=== PATIENT | male | born 1965 | race African-American/Black ===

== ENCOUNTER 2020-11-27 07:47 | Outpatient (RCR) | payer MEDICARE, MEDICAID, SELFPAY ==
[2020-11-27 08:20] VITALS: BP 124/68; PULSE 88; RESP 16; TEMP 36.9; BMI 44.3
--- NOTE | 2020-11-27 09:55 | PCM.WC.HP ---
History of Present Illness Date of Service: 11/27/20 Chief Complaint: Follow-up for open wounds on bilateral feet History of Wound: 55-year-old black male, diabetic neuropathy, DFU's with mental health issues and other comorbidities. Has developed a open sore on right hallux and left plantar foot just below the ball of the foot. Which appear to be almost healed PFSH Allergy/AdvReac Type Severity Reaction Status Date / Time No Known Allergies Allergy Verified 11/27/20 08:48 Social History Smoking Status: Current every day smoker ROS Constitutional Constitutional: Reports systems reviewed and no addt'l complaints, except as documented Eyes Eyes: Reports systems reviewed and no addt'l complaints, except as documented ENT HEENT: Reports systems reviewed and no addt'l complaints, except as documented Cardiovascular Cardiovascular: Reports systems reviewed and no addt'l complaints, except as documented Respiratory/Chest Respiratory/Chest: Reports systems reviewed and no addt'l complaints, except as documented Gastrointestinal Gastrointestinal: Reports systems reviewed and no addt'l complaints, except as documented Genitourinary Genitourinary: Reports systems reviewed and no addt'l complaints, except as documented Musculoskeletal Musculoskeletal: Reports systems reviewed and no addt'l complaints, except as documented Integumentary Integumentary: Reports systems reviewed and no addt'l complaints, except as documented and non-healing lesions Neurologic Neurologic: Reports systems reviewed and no addt'l complaints, except as documented Psychiatric Psychiatric: Reports systems reviewed and no addt'l complaints, except as documented and depression Endocrine Endocrinology: Reports systems reviewed and no addt'l complaints, except as documented Hematologic/Lymphatic Hematologic/Lymphatic: Reports systems reviewed and no addt'l complaints, except as documented Allergic/Immunologic Allergic/Immunologic: Reports systems reviewed and no addt'l complaints, except as documented Vital Signs Vital Signs Vital Signs: 11/27/20 08:20 Temperature 98.5 F Temperature Source Temporal Pulse Rate 88 Respiratory Rate 16 Blood Pressure 124/68 H Blood Pressure Mean 86 Blood Pressure Source Monitor Blood Pressure Position Sitting Blood Pressure Location Left Arm Oxygen Delivery Method Room Air Weight Weight: 300 lb Body Mass Index (BMI) 44.3 Physical Exam Const oriented x3 General Appearance: cooperative Exam Limitations: no limitations Eyes PERRL General Eye: normal appearance of both eyes Neck full ROM General: normal visual inspection Resp normal respiratory effort Effort and Inspection: able to speak in complete sentences Auscultation: clear to auscultation bilaterally Cardio regular rate and regular rhythm Palpation: normal PMI Rate: regular rate Rhythm: regular rhythm GI Auscultation: normoactive bowel sounds Palpation: soft and no hepatosplenomegaly external exam normal Back/Spine Cervical Spine: cervical ROM normal Thoracic Spine / Upper Back: normal to inspection Lumbar Spine / Lower Back: normal to inspection Extremity normal to inspection General Extremity: normal exam except as noted Skin Wounds: wounds noted Neuro oriented x3 Psych Appearance: grossly normal Speech: normal speech Thought Content: normal thought content Judgement: judgement good Debridement Note Debridement Note Post-Debridement Measurements and Additional Note: Post-Debridement Measurements/Treatment - Nurse 1 - General Ulcer Assessment Start: 11/27/20 08:17 Freq: Status: Active Protocol: [email or web address] Activity Type Activity Date Activity User E-Sign Co-Sign Detail Recorded Client Recorded Date Recorded By Document 11/27/20 08:20 [facility] [id number] 11/27/20 08:42 [facility] 11/27/20 08:20 - Today's Visit Information Type of service Initial Visit Arrival Mode Wheelchair Transfer Assistance Other Transfer Assist (Other) STAND BY Patient Identification Verified (Name & Yes ) Patient Requires Transmission-Based No Precautions Height and Weight Height 5 ft 9 in Weight 300 lb Weight in Pounds 300.0 lbs Weight Measurement Method Estimated by Patient Body Mass Index (BMI) 44.3 BMI Classification Obese BSA - Rj 2.45 Vital Signs Temperature (97.8 F-99.1 F) 98.5 F Temperature Source Temporal Pulse Rate (60-100) 88 Pulse Location Monitor Respiratory Rate (12-18) 16 Respiratory rate source Observation Oxygen Delivery Method Room Air Blood Pressure (90/60-120/80) 124/68 H Blood Pressure Mean 86 Source Monitor Position Sitting Blood Pressure Location Left Arm History Since Last Visit- (Skip if this is Patient's initial visit) Left Footwear Slipper Right Footwear Slipper Pain Scale: 0-10 Numeric Is Patient Pain Free? Yes Lower Extremity Assessment/ Foot Assessment/ Toe Nail Assessment Right -Posterior Tibial Palpable No -Posterior Tibial Doppler Monophasic -Dorsalis Pedis Palpable Yes -Dorsalis Pedis Doppler Multiphasic -Hair Growth on Legs Yes -Hair Growth on Toes No -Temperature of Extremity Warm -Other Deformity No -Prior Foot Ulcer No -Charcot Joint No -Prior Amputation No -Thick Yes -Discolored Yes -Deformed No -Improper Length & Hygeine No Left -Posterior Tibial Palpable No -Posterior Tibial Doppler Multiphasic -Dorsalis Pedis Palpable Yes -Dorsalis Pedis Doppler Multiphasic -Hair Growth on Legs Yes -Hair Growth on Toes No -Temperature of Extremity Warm -Other Deformity No -Prior Foot Ulcer No -Charcot Joint No -Prior Amputation No -Thick Yes -Discolored Yes -Deformed No -Improper Length & Hygeine No Neuropathy Assessment Feet - Top Side and Bottom <Entered> (a) Communication Assessment Preferred language Cuban [employer] Mechan[employer] Required No Able to Read Yes Able to Write Yes Communication Tools None Right Hearing Abillity Normal Left Hearing Abillity Normal Visual Assistive Devices Glasses Teaching Assessment Preferences Verbal,Written, Audio/Visual, Demonstration Barriers to Learning None Readiness To Learn Excellent Willingness to Engage in Self Management High Activies Readiness to Engage in Self Management High Activities Anxiety Level Calm Cooperation Cooperative Perception Coherent Interest in Health Problem Asks Questions Education Importance Acknowledges Need Does Patient Smoke tobacco or other No substances Smoking Status Current every day smoker Is Patient Diabetic Yes Functional Assessment Recent Decline in Ability to Perform Denies Any Declines 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 Cultural/Yazidism Needs that may affect No Treatment Plan Teaching: Wound Center *Welcome to the Wound Center -Person Taught Patient -Teaching Method Discussion -Response to teaching Verbalize understanding Welcome to the Wound Care Center Cuban (a) 1 - + 2 - - 3 - - 4 - + 5 - - WC - Nurse 1 - General Ulcer Measurement Start: 11/27/20 08:17 Freq: Status: Active Protocol: Activity Type Activity Date Activity User E-Sign Co-Sign Detail Recorded Client Recorded Date Recorded By Document 11/27/20 08:20 [facility] [id number] 11/27/20 08:42 [facility] 11/27/20 08:20 Wound Center Nurse 1 #2- L PLANTAR FOOT -Combined with other wound No -Current Size (cm) - Length 0.7 -Current Size (cm) - Width 0.4 -Current Size (cm) - Depth 0.1 -Total Square Cm 0.28 -Date of Last Picture (Recall this 11/27/20 field) -Photo Taken Yes -Epithelialization None Present -Tunneling No -Undermining/Tunneling No -Circular Undermining No -Exudate Amt Medium -Exudate Type Serous -Wound Margin Flat & Intact -Granulation Amt Medium (34-66%) -Granulation Quality Red -Slough/Fibrin Yes -Necrosis Amt Small (1-33%) -Necrotic Tissue Type Adherent Slough -Texture (Camila-wound Skin Appearance) Assessed, Scarring -Moisture (Camila-wound Skin Appearance) Assessed,Dry/ Scaly -Color (Camila-wound Skin Appearance) Assessed -Temperature (Camila-wound Skin No Abnormality Appearance) (Pt Warm) -Tenderness on Palpation (Camila-wound Yes Skin Appearance) -Ulcer Cleansing SOAPY WATER -Foul Odor after Cleansing No -Anesthetic Used 5% Lidocaine Gel #1- R BUNION -Combined with other wound No -Current Size (cm) - Length 1.7 -Current Size (cm) - Width 0.8 -Current Size (cm) - Depth 0.1 -Total Square Cm 1.36 -Date of Last Picture (Recall this 11/27/20 field) -Photo Taken Yes -Epithelialization None Present -Tunneling No -Undermining/Tunneling No -Circular Undermining No -Exudate Amt None Present -Wound Margin Flat & Intact -Granulation Amt Large (67-100%) -Granulation Quality [place] -Slough/Fibrin Yes -Necrosis Amt Small (1-33%) -Necrotic Tissue Type Adherent Slough -Texture (Camila-wound Skin Appearance) Callus,Scarring -Moisture (Camila-wound Skin Appearance) Assessed,Dry/ Scaly -Color (Camila-wound Skin Appearance) Assessed -Temperature (Camila-wound Skin No Abnormality Appearance) (Pt Warm) -Tenderness on Palpation (Camila-wound Yes Skin Appearance) -Ulcer Cleansing SOAPY WATER -Foul Odor after Cleansing No -Anesthetic Used 5% Lidocaine Gel Lower Limb Edema Present Yes Right Calf (cm) 44.6 Right Ankle (cm) 32.1 Left Calf (cm) 46.1 Left Ankle (cm) 32.7 WC - Nurse 2 - General Ulcer CM Notes Start: 11/27/20 08:17 Freq: Status: Active Protocol: Activity Type Activity Date Activity User E-Sign Co-Sign Detail Recorded Client Recorded Date Recorded By Document 11/27/20 09:05 MW [id number] 11/27/20 09:09 MW 11/27/20 09:05 Wound Center Nurse 2 #2- L PLANTAR FOOT -Time 09:05 -Correct Patient Yes -Correct Side, Site, Position Yes -Correct Procedure Yes -Procedure Performed Yes -Type of Procedure Debridement -Clinical Debridement Subcutaneous -Tissue Removed Subcutaneous -Post Debridement (cm) - Length 0.6 -Post Debridement (cm) - Width 0.5 -Post Debridement (cm) - Depth 0.1 -Total Square (Post) (cm) 0.30 -Area of Debridement (cm) - Length 0.6 -Area of Debridement (cm) - Width 0.5 -Total Square (Area) (cm) 0.30 -Tunneling No -Undermining/Tunneling No -Circular Undermining No -Wound/Ulcer Outcome Not Healed -Ulcer Cleansing Rinsed/ Irrigated with Saline -Foul Odor after Cleansing No -Bioengineered Tissue No -Bleeding Controlled with Pressure -Offloading No -Treatment Response Procedure Tolerated Well -Debridement - Subq, 1st 20sq cm Yes #1- R BUNION -Time 09:05 -Correct Patient Yes -Correct Side, Site, Position Yes -Correct Procedure Yes -Procedure Performed Yes -Type of Procedure Debridement -Clinical Debridement Subcutaneous -Tissue Removed Subcutaneous -Post Debridement (cm) - Length 1.5 -Post Debridement (cm) - Width 0.5 -Post Debridement (cm) - Depth 0.1 -Total Square (Post) (cm) 0.75 -Area of Debridement (cm) - Length 1.5 -Area of Debridement (cm) - Width 0.5 -Total Square (Area) (cm) 0.75 -Tunneling No -Undermining/Tunneling No -Circular Undermining No -Wound/Ulcer Outcome Not Healed -Ulcer Cleansing Rinsed/ Irrigated with Saline -Foul Odor after Cleansing No -Bioengineered Tissue No -Bleeding Controlled with Pressure -Offloading No -Treatment Response Procedure Tolerated Well -Debridement - Subq, 1st 20sq cm No Pain Scale: 0-10 Numeric Is Patient Pain Free? Yes WC - Nurse 3 - General Ulcer D/C NN Start: 11/27/20 08:17 Freq: Status: Active Protocol: Activity Type Activity Date Activity User E-Sign Co-Sign Detail Recorded Client Recorded Date Recorded By Document 11/27/20 09:24 [facility] [id number] 11/27/20 09:25 [facility] 11/27/20 09:24 Wound Care Nurse 3 #2- L PLANTAR FOOT -Ulcer Cleansing Rinsed/ Irrigated with Saline -Foul Odor after Cleansing No -Primary Dressing Applied Aquacel Extra, NonAdherent Contact Layer -Primary Dressing Covered/Secured with Dry Gauze, Secured with Tape -Aquacel Extra 1 #1- R BUNION -Ulcer Cleansing Rinsed/ Irrigated with Saline -Foul Odor after Cleansing No -Primary Dressing Applied Aquacel Extra, NonAdherent Contact Layer -Primary Dressing Covered/Secured with Dry Gauze, Secured with Tape -Aquacel Extra 0 Treatment Response Procedure Tolerated Well Pain Scale: 0-10 Numeric Is Patient Pain Free? Yes WC - Visit Discharge Discharge Condition Stable Ambulatory Status Wheelchair Other [facility] Wound debrided: Right bunion Laterality: Right Wound Grade/Stage: Stage II Type of Debridement: Excisional debridement Depth: Down to and including healthy tissue Percentage of wound debrided: 100 Instrument Used: 7mm curette Tissue Removed: Fibrin Severity: Limited To Skin Breakdown Amount of bleeding with debridement: None Bleeding Controlled with: Pressure Patient tolerated procedure: Patient tolerated procedure well Additional Wound Wound debrided: Left plantar foot Wound Grade/Stage: Stage II Type of Debridement: Excisional debridement Anesthesia Used: 5% Lidocaine Gel Depth: Down to and including healthy tissue Percentage of wound debrided: 100 Instrument Used: 7mm curette Tissue Removed: Fibrin callus Severity: Limited To Skin Breakdown Amount of bleeding with debridement: None Assessment/Plan Assessment/Plan (1) Diabetes type 2, uncontrolled: CODE(S): E11.65 - Type 2 diabetes mellitus with hyperglycemia QUALIFIERS: Glycemic state: with hyperglycemia Qualified Code(s): E11.65 - Type 2 diabetes mellitus with hyperglycemia (2) Decubitus ulcer: CODE(S): L89.90 - Pressure ulcer of unspecified site, unspecified stage QUALIFIERS: Pressure injury location: foot, unspecified location Pressure injury stage: stage 2 Laterality: unspecified laterality Qualified Code(s): L89.892 - Pressure ulcer of other site, stage 2 PLAN: Wash areas with antibacterial soap or Hibiclens apply Aquacel extra to wound base cover with Adaptic gauze and tape to bilateral feet ulcers Follow-up in 1 week
== END 2020-12-14 23:59 ==
LOC: WC 07:47
PROVIDERS: Visit Provider Nurse Practitioner
DX: L89.892 Pressure ulcer of other site, stage 2 (principal); E11.65 Type 2 diabetes mellitus with hyperglycemia; F17.200 Nicotine dependence, unspecified, uncomplicated; E11.40 Type 2 diabetes mellitus with diabetic neuropathy, unspecified
CPT/HCPCS: 11042; 99203; G0463

== ENCOUNTER 2020-12-18 09:30 | Outpatient (RCR) | payer MEDICARE, MEDICAID, SELFPAY ==
[2020-12-15 00:37] VITALS: BP 124/68; PULSE 88; RESP 16; TEMP 36.9
[2020-12-18 09:23] VITALS: BP 95/56; PULSE 78; RESP 18; TEMP 36.3; BMI 44.3
--- NOTE | 2020-12-18 10:05 | PCM.WC.PN ---
History of Present Illness Date of Service: 12/18/20 Chief Complaint: Follow-up for open wounds on bilateral feet History of Wound: 55-year-old black male, diabetic neuropathy, DFU's with mental health issues and other comorbidities. Has developed a open sore on right hallux and left plantar foot just below the ball of the foot. Which appear to be almost healed Progress of Wound: The right helix and the left plantar are healed patient will be discharged from the wound center Subjective Subjective Patient has no concerns Objective Data Objective Data Area is all healed Vital Signs: Vital Signs Temp Pulse Resp BP 97.4 F L 78 18 95/56 L 12/18/20 09:23 12/18/20 09:23 12/18/20 09:23 12/18/20 09:23 Weight: 300 lb Body Mass Index (BMI) 44.3 Physical Exam Const oriented x3 General Appearance: cooperative Exam Limitations: no limitations Eyes PERRL General Eye: normal appearance of both eyes Neck full ROM General: normal visual inspection Resp normal respiratory effort Effort and Inspection: able to speak in complete sentences Auscultation: clear to auscultation bilaterally Cardio regular rate and regular rhythm Palpation: normal PMI Rate: regular rate Rhythm: regular rhythm GI Auscultation: normoactive bowel sounds Palpation: soft and no hepatosplenomegaly external exam normal Back/Spine Cervical Spine: cervical ROM normal Thoracic Spine / Upper Back: normal to inspection Lumbar Spine / Lower Back: normal to inspection Extremity normal to inspection General Extremity: normal exam except as noted Skin Wounds: wounds noted Neuro oriented x3 Psych Appearance: grossly normal Speech: normal speech Thought Content: normal thought content Judgement: judgement good Debridement Note Debridement Note No debridement was completed: No debridement was completed today Assessment/Plan Assessment/Plan (1) Diabetes type 2, uncontrolled: CODE(S): E11.65 - Type 2 diabetes mellitus with hyperglycemia QUALIFIERS: Glycemic state: with hyperglycemia Qualified Code(s): E11.65 - Type 2 diabetes mellitus with hyperglycemia (2) Decubitus ulcer: CODE(S): L89.90 - Pressure ulcer of unspecified site, unspecified stage QUALIFIERS: Pressure injury location: foot, unspecified location Pressure injury stage: stage 2 Laterality: unspecified laterality Qualified Code(s): L89.892 - Pressure ulcer of other site, stage 2 PLAN: Both areas have healed patient is discharged from the wound center follow-up as needed
== END 2020-12-18 09:58 | disposition home or self-care (01) ==
LOC: WC 09:30
PROVIDERS: Visit Provider Nurse Practitioner
DX: L89.892 Pressure ulcer of other site, stage 2 (principal); E11.65 Type 2 diabetes mellitus with hyperglycemia; E11.40 Type 2 diabetes mellitus with diabetic neuropathy, unspecified
CPT/HCPCS: 99213; G0463

== ENCOUNTER → 2020-12-25 12:23 | Outpatient (CLI) | payer MEDICARE, SELFPAY ==
[2020-12-18 09:23] VITALS: BMI 44.3
--- NOTE | 2020-12-25 12:56 | RAD_ITS ---
STUDY: X-RAY - LUMBAR SPINE REASON FOR EXAM: Male, 55 years old. BACK/LEG PAIN TECHNIQUE: 3 view(s) of the lumbar spine were obtained. COMPARISON: None FINDINGS: Normal lumbar lordosis. There is no substantial scoliosis. There is a normal alignment of the vertebrae. Normal vertebral bodies and endplates. Focal disc space narrowing and osteophyte formation at L5/S1 consistent with degenerative disc disease. The soft tissue structures are unremarkable. RAD/Lumbar Spine 2 or 3 Views IMPRESSION: Focal degenerative disc disease L5/S1. Electronically Signed: Tex Lynch MD at 16:50 EDT Tel , Service support ,
[2020-12-25 13:51] LABS: Amphetamine Urine VISTA NEGATIVE (<1000 ng/mL); Barbiturate Urine VISTA NEGATIVE (< 200 ng/mL); Benzodiazepine Urine VISTA NEGATIVE (< 200 ng/mL); Cocaine Urine VISTA NEGATIVE (< 300 ng/mL); Ecstacy Urine VISTA POSITIVE (< 500 ng/mL); Methadone Urine VISTA NEGATIVE (< 300 ng/mL); PCP Urine VISTA NEGATIVE (< 25 ng/mL); THC Urine VISTA NEGATIVE (< 50 ng/mL); Vista UDS pH Range 5
== END ==
PROVIDERS: Referring Provider Anesthesiology Pain Medicine; Visit Provider Anesthesiology Pain Medicine
DX: M54.9 Dorsalgia, unspecified (principal); F11.20 Opioid dependence, uncomplicated; M79.606 Pain in leg, unspecified
CPT/HCPCS: 72100; 80307

== ENCOUNTER 2021-01-06 16:20 | Emergency (ER) | payer MEDICARE, SELFPAY ==
[2021-01-06 16:22] VITALS: BP 94/64; PULSE 85; RESP 18; TEMP 36.6; O2SAT 96; BMI 42.8
[2021-01-06 16:42] LABS: Absolute Lymphocyte Count 2.55 X10^3/uL (0.83-4.51); Absolute Neutrophil Count 6.1 X10^3/uL (2.0-7.7); Basophil# 0.04 X10^3/uL; Basophil% 0.4 % (0-1); Eosinophil# 0.25 X10^3/uL; Eosinophils% 2.6 % (0-5); Hematocrit 33.8 % (40-54); Hemoglobin 11.7 g/dL (13.0-16.5); Lymphocyte # 2.55 X10^3/ul (0.83-4.51); Lymphocyte % 26.4 % (19-41); Mean Corp Hgb Conc 34.6 g/dL (32-36); Mean Corpuscular Volume 77.9 fL (80-94); Mean Platelet Vol. 10.1 fl (6.2-12.0); Monocyte# 0.66 X10^3/uL; Monocyte% 6.8 % (0-10); NRBC Flagged by Analyzer 0 % (0-5); Neutrophil # 6.12 X10^3/uL (2.7-7.7); Neutrophil % 63.5 % (47-70); Platelet Count 223 K/mm3 (150-450); RBC Distribution Width CV 16.2 % (11.6-14.6); Red Blood Count 4.34 M/mm3 (4.6-6.2); White Blood Count 9.7 K/mm3 (4.4-11.0)
[2021-01-06 16:55] LABS: Anion Gap 3 (5-15); BUN 25 mg/dL (7-18); BUN/Creat Ratio 16.4 RATIO (10-20); Calcium,Total 9.1 mg/dL (8.5-10.1); Chloride 102 mmol/L (98-107); Creatinine, Serum 1.52 mg/dL (0.70-1.30); EST Glomerular Filtration Rate 51 mL/min (>60); Est Glom Filt Rate - Afr Amer 62 mL/min (>60); Estimated Creatinine Clearance 55.56 ml/min; Glucose 142 mg/dL (74-106); Potassium 4.3 mmol/L (3.5-5.1); Sodium Level 135 mmol/L (136-145)
--- NOTE | 2021-01-06 17:59 | CT_ITS ---
STUDY: CT ABDOMEN AND PELVIS WITH CONTRAST REASON FOR EXAM: Male, 55 years old. Eval obstruction const, RUQ pain eval gallbladder -- IV PO Contrast RADIATION DOSAGE (If Supplied By Facility): CTDIvol = ( 16.78 ) mGy, DLP = ( 1337.22 ) mGycm TECHNIQUE: Transaxial images were obtained from the dome of the diaphragm to the symphysis pubis without oral contrast. Oral and amp; IV Gastrografin and amp; 100mL Isovue-370 was administered. Sagittal and coronal images were reconstructed. Individualized dose optimization techniques were used for this CT. COMPARISON: None. FINDINGS: There is minor interstitial thickening at both lung bases.. The visualized portions of the heart are within normal limits. Liver is fatty infiltrated without mass or bile duct dilatation.. Slightly hyperattenuated density within the gallbladder consistent with poorly calcified stones or sludge.. Tiny granulomatous calcifications within normal size spleen Normal pancreas. Normal bilateral adrenal glands. No evidence for renal obstruction or ureteral calculus. There is a tiny simple cyst in left kidney. Normal visualized stomach. Normal small intestine. There is diffuse fecal retention within the ascending and transverse colon without evidence for obstructing lesion. No evidence for acute appendicitis.. Minor atherosclerotic changes of the aorta without evidence for aneurysm. Normal inferior vena cava. Normal retroperitoneum. Nonspecific diffuse distention of the bladder.. Normal abdominal wall. Lumbar spine demonstrates mild degenerative change CT/Abdomen/Pelvis WITH Contrast IMPRESSION: Findings suggestive of poorly calcified stones or sludge in the gallbladder. Ultrasound would be useful for further assessment. No evidence for small bowel obstruction. Electronically Signed: Guanako William MD at 20:42 EDT , Service support ,
--- NOTE | 2021-01-06 18:05 | EDS_ITS ---
HPI History of Present Illness Chief Complaint: Abd Pain Informant: patient Narrative Narrative: Patient is a 55-year-old male who presents to the emergency department for right upper quadrant/diffuse abdominal pain and constipation. He states his last bowel movement was yesterday but was very small. He lives at a nursing facility and they gave him a lot of medications to help get his bowels moved. He states he has had this pain before when he is been constipated but this seems more severe. He currently rates the pain as a 10 out of 10. Is not been able to eat over the past few weeks because this has made his abdominal pain worse. He denies any episodes of vomiting. No fevers or chills. No chest pain or shortness of breath. The majority of the pain is on the right side that does wrap around to the back. He denies any urinary symptoms. No previous abdominal surgeries. [facility] Medical History Diabetes Hypercholesterolemia Hypotension Neuropathy Home Medications Lactobacillus acidophilus [Acidophilus] 2 tab PO DAILY 11/27/20 [History Last Taken Unknown] albuterol 2 INHALATION Q6H PRN 11/27/20 [History Last Taken Unknown] amitriptyline 25 mg PO QHS 11/27/20 [History Last Taken Unknown] amitriptyline 75 mg PO QHS 11/27/20 [History Last Taken Unknown] aspirin 81 mg PO DAILY 11/27/20 [History Last Taken Unknown] atorvastatin 80 mg PO QHS 11/27/20 [History Last Taken Unknown] bupropion HCl 150 mg PO BID 11/27/20 [History Last Taken Unknown] buspirone 5 mg PO BID 11/27/20 [History Last Taken Unknown] cholecalciferol (vitamin D3) [Vitamin D3] 50 mcg PO DAILY 11/27/20 [History Last Taken Unknown] dicyclomine 10 mg PO Q12H PRN 11/27/20 [History Last Taken Unknown] duloxetine 60 mg PO QHS 11/27/20 [History Last Taken Unknown] ezetimibe 10 mg PO DAILY 11/27/20 [History Last Taken Unknown] ferrous sulfate 325 mg PO DAILY 11/27/20 [History Last Taken Unknown] fluticasone propionate 1 spray INTRANASAL DAILY PRN 11/27/20 [History Last Taken Unknown] furosemide 40 mg PO BID 11/27/20 [History Last Taken Unknown] hydroxyzine HCl 10 mg PO BID 11/27/20 [History Last Taken Unknown] hydroxyzine pamoate 25 mg PO Q6H PRN 11/27/20 [History Last Taken Unknown] insulin glargine [Lantus Solostar U-100 Insulin] 58 unit SUBCUT QPM 11/27/20 [History Last Taken Unknown] insulin glargine [Lantus Solostar U-100 Insulin] 64 unit SUBCUT DAILY 11/27/20 [History Last Taken Unknown] insulin lispro See Protocol SUBCUT TID 11/27/20 [History Last Taken Unknown] leflunomide 10 mg PO DAILY 11/27/20 [History Last Taken Unknown] lisinopril 10 mg PO DAILY 11/27/20 [History Last Taken Unknown] loperamide 2 mg PO Q6H PRN 11/27/20 [History Last Taken Unknown] mecobalamin (vitamin B12) [B12 Active] 1,000 mcg PO DAILY 11/27/20 [History Last Taken Unknown] metformin 1,000 mg PO BID 11/27/20 [History Last Taken Unknown] metoprolol tartrate 25 mg PO BID 11/27/20 [History Last Taken Unknown] omega 9-ist-wml-fish oil [Fish Oil] 1 cap PO BID 11/27/20 [History Last Taken Unknown] pantoprazole 40 mg PO DAILY 11/27/20 [History Last Taken Unknown] pregabalin 200 mg PO TID 11/27/20 [History Last Taken Unknown] quetiapine 50 mg PO BID 11/27/20 [History Last Taken Unknown] sertraline 50 mg PO DAILY 11/27/20 [History Last Taken Unknown] tamsulosin 0.4 mg PO QHS 11/27/20 [History Last Taken Unknown] tizanidine 4 mg PO TID 11/27/20 [History Last Taken Unknown] Allergy/AdvReac Type Severity Reaction Status Date / Time No Known Allergies Allergy Verified 01/06/21 16:23 Social History Smoking Status: Current every day smoker tobacco type: cigarettes ROS ROS ED Constitutional Constitutional ED: Denies chills or fever(s) Eyes Eyes: Denies change in vision ENT ENT ED: Denies epistaxis or rhinorrhea Cardiovascular Cardiovascular: Denies chest pain or palpitations Respiratory/Chest Respiratory/Chest: Denies cough or dyspnea Gastrointestinal Gastrointestinal: Reports abdominal pain and constipation; Denies diarrhea, melena, nausea or vomiting Genitourinary Genitourinary ED: Denies dysuria, hematuria or urinary frequency Musculoskeletal Musculoskeletal: Denies back pain or neck pain Integumentary Denies rash Neurologic Neurologic: Denies dizziness, headache(s) or weakness EXAM Physical Exam Const Vital Signs: 01/06/21 16:22 01/06/21 19:00 Temperature 97.8 F Temperature Source Temporal Pulse Rate 85 Respiratory Rate 18 16 Blood Pressure 94/64 Blood Pressure Mean 74 Pulse Ox 96 Oxygen Delivery Method Room Air Positive well nourished and well developed General Appearance ED: well developed and NAD HEENT Reports normocephalic, head/scalp atraumatic and moist mucous membranes Eyes PERRL and EOMs intact bilaterally Neck supple Resp normal respiratory effort and clear to auscultation bilaterally Auscultation: Negative for rales, rhonchi or wheezes Cardio regular rate, regular rhythm and no murmurs GI normal to inspection, nondistended, normoactive bowel sounds GI Narrative: Diffuse abdominal tenderness. No peritoneal signs. Palpation: soft; Negative for guarding or rebound tenderness present Back/Spine no CVA tenderness Extremity normal to inspection General Extremety ED: Negative for edema or tenderness General Extremity: Negative for edema Neuro Sensorium / Orientation: alert Motor Exam: strength 5/5 throughout Psych mental status grossly normal Skin no rashes or lesions noted MDM MDM MDM Narrative Medical decision making narrative: Patient presents to the emergency department for diffuse abdominal pain but mostly in the right upper quadrant. He has not been able to eat very much lately because this exacerbates his symptoms. He is also felt constipated. On arrival to the emergency department blood pressure is borderline low but otherwise normal vital signs. He does have diffuse tenderness but no significant rebound or guarding. Will avoid narcotics given his constipation so was given a dose of Bentyl. Lab work being obtained as well as CT scan of the abdomen/pelvis. Patient CT scan showed a distended gallbladder with sludge. No obvious evidence of cholecystitis. His liver enzymes within normal limits as well as bilirubin. He does not have a high white blood cell count. Given the fact patient does not have obvious obstruction he will be given a dose of hydromorphone for pain control. He otherwise has remained stable throughout ED stay. No emergent indication for cholecystectomy at this time. I believe a lot of his pain is stemming from the gallbladder and will need a general surgery referral. He is recommended to eat a bland diet and avoid fatty foods in the meantime. Return precautions are reviewed with him. He understands and is agreeable this plan. All questions were answered. Lab Data Labs: Laboratory Results - last 24 hr 01/06/21 01/06/21 01/06/21 16:33 16:33 16:33 WBC 9.7 RBC 4.34 L Hgb 11.7 L Hct 33.8 L MCV 77.9 L MCH 27.0 MCHC 34.6 RDW Std Deviation 46.0 H RDW Coeff of Nathalie 16.2 H Plt Count 223 MPV 10.1 Immature Gran % (Auto) 0.300 Neut % (Auto) 63.5 Lymph % (Auto) 26.4 Edmunds % (Auto) 6.8 Eos % (Auto) 2.6 Baso % (Auto) 0.4 Absolute Neuts (auto) 6.1 Absolute Lymphs (auto) 2.55 Nucleated RBC % 0 Sodium 135 L Potassium 4.3 Chloride 102 Carbon Dioxide 30.0 Anion Gap 3 L BUN 25 H Creatinine 1.52 H Estim Creat Clear Calc 55.56 Est GFR (MDRD) Af Amer 62 Est GFR (MDRD) Non-Af 51 L BUN/Creatinine Ratio 16.4 Glucose 142 H Calcium 9.1 Total Bilirubin 0.40 Direct Bilirubin 0.12 AST 10 L ALT 23 Alkaline Phosphatase 171 H Total Protein 8.3 H Albumin 3.2 Globulin 5.1 H Lipase 879 H Urine Color Urine Clarity Urine pH Ur Specific [place] Urine Protein Urine Glucose (UA) Urine Ketones Urine Occult Blood Urine Nitrite Urine Bilirubin Urine Urobilinogen Ur Leukocyte Esterase Urine RBC Urine WBC Ur Squamous Epith Cells Urine Bacteria Urine Mucus 01/06/21 18:43 WBC RBC Hgb Hct MCV MCH MCHC RDW Std Deviation RDW Coeff of Nathalie Plt Count MPV Immature Gran % (Auto) Neut % (Auto) Lymph % (Auto) Edmunds % (Auto) Eos % (Auto) Baso % (Auto) Absolute Neuts (auto) Absolute Lymphs (auto) Nucleated RBC % Sodium Potassium Chloride Carbon Dioxide Anion Gap BUN Creatinine Estim Creat Clear Calc Est GFR (MDRD) Af Amer Est GFR (MDRD) Non-Af BUN/Creatinine Ratio Glucose Calcium Total Bilirubin Direct Bilirubin AST ALT Alkaline Phosphatase Total Protein Albumin Globulin Lipase Urine Color Yellow Urine Clarity Clear Urine pH 6.5 Ur Specific [place] 1.010 Urine Protein Negative Urine Glucose (UA) Normal Urine Ketones Negative Urine Occult Blood Negative Urine Nitrite Negative Urine Bilirubin Negative Urine Urobilinogen Normal Ur Leukocyte Esterase Negative Urine RBC 0 SEEN Urine WBC 0 SEEN Ur Squamous Epith Cells 0-5 SEEN Urine Bacteria 0 SEEN Urine Mucus 0 SEEN Radiography Diagnostic Testing: Radiology Impression Abdomen/Pelvis CT 01/06/21 17:59 IMPRESSION: Findings suggestive of poorly calcified stones or sludge in the gallbladder. Ultrasound would be useful for further assessment. No evidence for small bowel obstruction. Electronically Signed: Guanako William MD at 20:42 EDT , Service support , Discharge Plan Triage Chief Complaint: Abd Pain ED Provider: Jignesh Johnson Dx/Rx/DC Orders Clinical Impression: Abdominal pain Instructions: Abdominal Pain, ED Abdominal Pain Gallstone Poss Prescriptions: No Action furosemide 40 mg Tablet 40 mg PO BID RF: 0 buspirone 5 mg Tablet 5 mg PO BID RF: 0 atorvastatin 80 mg Tablet 80 mg PO QHS RF: 0 loperamide 2 mg Capsule 2 mg PO Q6H PRN (Reason: Diarrhea) RF: 0 amitriptyline 75 mg Tablet 75 mg PO QHS RF: 0 leflunomide 10 mg Tablet 10 mg PO DAILY RF: 0 amitriptyline 25 mg Tablet 25 mg PO QHS RF: 0 tamsulosin 0.4 mg Capsule 0.4 mg PO QHS RF: 0 pantoprazole 40 mg Tablet,Delayed Release (Dr/Ec) 40 mg PO DAILY RF: 0 ferrous sulfate 325 mg (65 mg iron) Tablet 325 mg PO DAILY RF: 0 metformin 1,000 mg Tablet 1,000 mg PO BID RF: 0 lisinopril 10 mg Tablet 10 mg PO DAILY RF: 0 bupropion HCl 75 mg Tablet 150 mg PO BID RF: 0 aspirin 81 mg Tablet,Chewable 81 mg PO DAILY RF: 0 albuterol 90 mcg/actuation Aerosol 2 INHALATION Q6H PRN (Reason: sob) RF: 0 hydroxyzine HCl 10 mg Tablet 10 mg PO BID RF: 0 fluticasone propionate 50 mcg/actuation [place],Suspension 1 spray INTRANASAL DAILY PRN (Reason: Congestion) RF: 0 sertraline 50 mg Tablet 50 mg PO DAILY RF: 0 dicyclomine 10 mg Capsule 10 mg PO Q12H PRN (Reason: stomach cramps) RF: 0 hydroxyzine pamoate 25 mg Capsule 25 mg PO Q6H PRN (Reason: Anxiety) RF: 0 insulin lispro 100 unit/mL Cartridge See Protocol subcut TID RF: 0 ezetimibe 10 mg Tablet 10 mg PO DAILY RF: 0 Acidophilus Tablet,Chewable 2 tab PO DAILY RF: 0 metoprolol tartrate 25 mg Tablet 25 mg PO BID RF: 0 tizanidine 4 mg Capsule 4 mg PO TID RF: 0 pregabalin 200 mg Capsule 200 mg PO TID RF: 0 quetiapine 50 mg Tablet 50 mg PO BID RF: 0 Lantus Solostar U-100 Insulin 100 unit/mL (3 mL) Insulin Pen 64 unit SUBCUT DAILY RF: 0 Lantus Solostar U-100 Insulin 100 unit/mL (3 mL) Insulin Pen 58 unit SUBCUT QPM RF: 0 cholecalciferol (vitamin D3) [Vitamin D3] 50 mcg (2,000 unit) Tablet 50 mcg PO DAILY RF: 0 omega 3-epu-fup-fish oil [Fish Oil] 1,000 mg (120 mg-180 mg) Capsule 1 cap PO BID RF: 0 duloxetine 60 mg Capsule, Delayed Rel Sprinkle 60 mg PO QHS RF: 0 B12 Active 1,000 mcg Tablet,Chewable 1,000 mcg PO DAILY RF: 0 Primary Care Provider: Care Physician,No Primary Referrals: Cade Velásquez MD [STAFF PHYSICIAN] - As soon as possible Care Physician,No Primary [Primary Care Provider] - Disposition Disposition: Home, Self Care
[2021-01-06] MEDS: Dicyclomine 20 MG/2 ML Vial IM (18:12)
[2021-01-06 18:32] LABS: AST(SGOT) 10 U/L (15-37); Alanine Aminotransfer ALT/SGPT 23 U/L (16-61); Albumin, Serum 3.2 g/dL (3.2-5.0); Alkaline Phosphatase 171 U/L (45-117); Bilirubin, Direct 0.12 mg/dL (0.00-0.30); Globulin 5.1 g/dL (2.2-4.2); Lipase 879 U/L (73-393); Protein, Total 8.3 g/dL (6.4-8.2)
[2021-01-06 19:00] VITALS: RESP 16
[2021-01-06 19:12] LABS: Bacteria 0 SEEN /hpf (None Seen); Mucous, Urine 0 SEEN /hpf (<or=2+); Red Blood Cells-Urine 0 SEEN /hpf (0-5); White Blood Cells 0 SEEN /hpf (0-5)
[2021-01-06 19:13] LABS: Color, Urine Yellow (Yellow); Glucose, Dipstick Normal (Normal); Ketone-Dipstick Negative (Negative); Leukocyte Esterase-Dipstick Negative /ul (Negative); Nitrite-Dipstick Negative (Negative); Occult Blood-Urine Negative /ul (Negative); Protein-Dipstick Negative (Negative); Urine Bilirubin Dipstick Negative (Negative); Urine Clarity Clear (Clear); Urine Urobilinogen Normal (Normal); Urine pH 6.5 (5.0 - 8.0)
[2021-01-06 19:34] LABS: Squamous Epithelial Cells - UA 0-5 SEEN /hpf (0-5)
--- NOTE | 2021-01-06 20:24 | CM.ED ---
Sw Note Referral Source: Case Find Referral Reason: No Primary Care Physician (PCP) SW reviewed patient's chart. Patient has no PCP. SW met with patient in his room and provided him with [facility] Physicians Directory and Handout Where to Go When. Patient voiced no other issues or concerns. SW remains available if needs arise. Plan: Provided patient with PCP provider list and Where to Go list Fariba LARA
[2021-01-06] MEDS: HYDROmorphone 0.5 MG/0.5 ML SYRINGE IV (23:04)
== END 2021-01-06 23:54 | disposition home or self-care (01) ==
PROVIDERS: Emergency Provider Emergency Medicine
DX: R10.11 Right upper quadrant pain (principal); F17.210 Nicotine dependence, cigarettes, uncomplicated
CPT/HCPCS: 74177; 80048; 80076; 81001; 83690; 85025; 96372; 96374; 99285; Q9967; A4216

== ENCOUNTER 2021-01-10 21:34 | Inpatient (IN) | payer MEDICARE, SELFPAY ==
[2021-01-10 21:35] VITALS: BP 119/64; PULSE 83; RESP 16; TEMP 36.9; O2SAT 95; BMI 42.7
[2021-01-10 21:50] LABS: Bedside Glucose 55 mg/dL (70-110)
[2021-01-10] MEDS: Dextrose 50%-Water 25 GM/50 ML DISP.SYRIN IV (21:55)
[2021-01-10 22:14] LABS: Absolute Lymphocyte Count 1.82 X10^3/uL (0.83-4.51); Absolute Neutrophil Count 5.5 X10^3/uL (2.0-7.7); Basophil# 0.04 X10^3/uL; Basophil% 0.5 % (0-1); Eosinophil# 0.05 X10^3/uL; Eosinophils% 0.6 % (0-5); Hematocrit 33.4 % (40-54); Hemoglobin 11.7 g/dL (13.0-16.5); Lymphocyte # 1.82 X10^3/ul (0.83-4.51); Lymphocyte % 22.6 % (19-41); Mean Corpuscular Hgb 27.7 pg (27.0-32.0); Mean Platelet Vol. 11.1 fl (6.2-12.0); Monocyte# 0.62 X10^3/uL; Monocyte% 7.7 % (0-10); NRBC Flagged by Analyzer 0 % (0-5); Neutrophil # 5.49 X10^3/uL (2.7-7.7); Neutrophil % 68.1 % (47-70); Platelet Count 255 K/mm3 (150-450); RBC Distribution Width CV 16.2 % (11.6-14.6); RBC Distribution Width SD 46.6 fl (35.1-43.9); Red Blood Count 4.23 M/mm3 (4.6-6.2); White Blood Count 8.1 K/mm3 (4.4-11.0)
--- NOTE | 2021-01-10 22:17 | US_ITS ---
STUDY: ABDOMINAL ULTRASOUND - RIGHT UPPER QUADRANT REASON FOR VISIT: Male, 55 years old pain-rt side TECHNIQUE: Ultrasound evaluation of the right upper quadrant was performed with real-time and static avila-scale imaging. TECHNICAL QUALITY: Adequate. COMPARISON: CT abdomen and pelvis 01/06/2021 FINDINGS: Liver: The liver measures 19 cm. There is increased echogenicity consistent with fatty infiltration. The bile ducts are within normal limits. There is hepatic color flow. The direction of portal flow is hepatopetal. There is no demonstrated mass lesion. Gallbladder: Normal distended gallbladder. The gallbladder wall measures 2 mm. There is a positive sonographic Brown''s sign. There is no pericholecystic fluid. There is biliary sludge dependent within the gallbladder. Common Bile Duct (C.B.D.): The common bile duct measures 6 mm. Pancreas: Not visualized due to bowel gas. Right Kidney: Normal size of the right kidney. The right kidney measures 10.8 cm. Normal renal cortex. The right cortex measures 1.6 cm. There is no demonstrated renal mass or cyst. There is no right hydronephrosis. US/Gallbladder IMPRESSION: Gallbladder sludge. Electronically Signed: Albino Archer MD at 23:29 EDT , Service support ,
[2021-01-10 22:31] LABS: Bedside Glucose 149 mg/dL (70-110)
[2021-01-10 22:32] LABS: Anion Gap 14 (5-15); BUN 54 mg/dL (7-18); BUN/Creat Ratio 7.8 RATIO (10-20); Calcium,Total 9.1 mg/dL (8.5-10.1); Chloride 99 mmol/L (98-107); Creatinine, Serum 6.88 mg/dL (0.70-1.30); EST Glomerular Filtration Rate 9 mL/min (>60); Est Glom Filt Rate - Afr Amer 11 mL/min (>60); Estimated Creatinine Clearance 12.27 ml/min; Glucose 57 mg/dL (74-106); Potassium 5.5 mmol/L (3.5-5.1); Sodium Level 136 mmol/L (136-145)
--- NOTE | 2021-01-10 22:53 | EKG12_ITS ---
Test Reason : HYPOGLYCEMIA Blood Pressure : / mmHG Vent. Rate : 085 BPM Atrial Rate : 085 BPM P-R Int : 264 ms QRS Dur : 126 ms QT Int : 412 ms P-R-T Axes : 046 -22 063 degrees QTc Int : 490 ms Sinus rhythm with 1st degree A-V block Non-specific intra-ventricular conduction block Abnormal ECG Confirmed by MIHAI ARSHAD, CLEMENCIA ([id number]), production editor FRANKY CRISTINA ([id number]) on 01/13/2021 12:55:13 PM Referred By: DR PETER Confirmed By:CLEMENCIA HOLM MD
[2021-01-10] MEDS: Ondansetron 4 MG/2 ML Vial IV (23:28)
[2021-01-10] MEDS: fentaNYL 100 MCG/2 ML Ampul 50 MCG IV (23:28)
[2021-01-10] MEDS: 0.9% Normal Saline 1,000 ML 999 ML IV (23:29)
--- NOTE | 2021-01-10 23:33 | EDS_ITS ---
HPI History of Present Illness Chief Complaint: Hypoglycemia Informant: patient Narrative Narrative: Patient is a 55-year-old male presenting with worsening abdominal pain, nausea and vomiting. Patient's been having worsening abdominal pain for the past 2 weeks. He had was seen in the emergency room 2 days ago and at that time had a work-up including lab work and CT of the abdomen pelvis. CT showed gallbladder sludge another acute process. His lipase was mildly elevated at 879. His creatinine was 1.52 and alkaline phosphatase of 171. AST and ALT were normal. Patient states his pain has been in his right upper quadrant. Since he was discharged he had continued nausea and vomiting. He states he is not been able to drink anything has had decreased urine output. He has continued to take his home medications and today became hypoglycemic. Patient denies any associated chest pain. He denies any history of alcohol use. PFSH PFSH Medical History Anxiety and depression Bipolar disorder Chronic anemia Diabetes HTN (hypertension) Hypercholesterolemia Morbid obesity Neuropathy Rheumatoid arthritis Tobacco use Home Medications Lactobacillus acidophilus [Acidophilus] 2 tab PO DAILY 11/27/20 [History Last Taken Unknown] albuterol 90 mcg INHALATION Q6H PRN 11/27/20 [History Last Taken Unknown] amitriptyline 25 mg PO QHS 11/27/20 [History Last Taken Unknown] amitriptyline 75 mg PO QHS 11/27/20 [History Last Taken Unknown] aspirin 81 mg PO DAILY 11/27/20 [History Last Taken Unknown] atorvastatin 80 mg PO QHS 11/27/20 [History Last Taken Unknown] bupropion HCl 150 mg PO BID 11/27/20 [History Last Taken Unknown] buspirone 5 mg PO BID 11/27/20 [History Last Taken Unknown] cholecalciferol (vitamin D3) [Vitamin D3] 50 mcg PO DAILY 11/27/20 [History Last Taken Unknown] duloxetine 60 mg PO QHS 11/27/20 [History Last Taken Unknown] ezetimibe 10 mg PO DAILY 11/27/20 [History Last Taken Unknown] ferrous sulfate 325 mg PO DAILY 11/27/20 [History Last Taken Unknown] fluticasone propionate 1 spray INTRANASAL DAILY PRN 11/27/20 [History Last Taken Unknown] furosemide 40 mg PO BID 11/27/20 [History Last Taken Unknown] hydroxyzine pamoate 25 mg PO Q6H PRN 11/27/20 [History Last Taken Unknown] insulin lispro See Protocol SUBCUT TID 11/27/20 [History Last Taken Unknown] leflunomide 10 mg PO DAILY 11/27/20 [History Last Taken Unknown] lisinopril 10 mg PO DAILY 11/27/20 [History Last Taken Unknown] loperamide 2 mg PO Q6H PRN 11/27/20 [History Last Taken Unknown] mecobalamin (vitamin B12) [B12 Active] 1,000 mcg PO DAILY 11/27/20 [History Last Taken Unknown] metformin 1,000 mg PO BID 11/27/20 [History Last Taken Unknown] metoprolol tartrate 25 mg PO BID 11/27/20 [History Last Taken Unknown] omega 9-wug-lyc-fish oil [Fish Oil] 1 cap PO BID 11/27/20 [History Last Taken Unknown] pantoprazole 40 mg PO DAILY 11/27/20 [History Last Taken Unknown] pregabalin 200 mg PO TID 11/27/20 [History Last Taken Unknown] quetiapine 50 mg PO BID 11/27/20 [History Last Taken Unknown] sertraline 50 mg PO DAILY 11/27/20 [History Last Taken Unknown] tamsulosin 0.4 mg PO QHS 11/27/20 [History Last Taken Unknown] tizanidine 4 mg PO TID 11/27/20 [History Last Taken Unknown] insulin degludec [Tresiba FlexTouch U-100] 20 unit SUBCUT QHS 01/10/21 [History Last Taken Unknown] tramadol 50 mg PO BID PRN 01/10/21 [History Last Taken Unknown] Allergy/AdvReac Type Severity Reaction Status Date / Time No Known Allergies Allergy Verified 01/06/21 16:23 Family History (Updated 01/11/21 @ 01:[address] Kanwal Russo MD) Mother Diabetes Father Diabetes Hypertension Social History (Updated 01/11/21 @ 01:[address] Kanwal Russo MD) housing: assisted living facility Smoking Status: Light Smoker (<10/day) alcohol intake: never substance use type: does not use ROS ROS ED Constitutional Constitutional ED: Reports chills; Denies fever(s) Eyes Eyes: Denies blurry vision or change in vision ENT ENT ED: Denies rhinorrhea or sore throat Cardiovascular Cardiovascular: Denies chest pain or palpitations Respiratory/Chest Respiratory/Chest: Denies cough or dyspnea Gastrointestinal Gastrointestinal: Reports abdominal pain, nausea and vomiting; Denies constipation or diarrhea Genitourinary Genitourinary ED: Reports other Details: Decreased urination Musculoskeletal Musculoskeletal: Denies arthralgias or myalgias Integumentary Denies rash Neurologic Neurologic: Reports weakness; Denies headache(s) Psychiatric Psychiatric: Denies anxiety or depression EXAM Physical Exam Const Vital Signs: 01/10/21 21:35 01/10/21 23:58 01/11/21 00:00 Temperature 98.4 F Temperature Source Oral Pulse Rate 83 87 Respiratory Rate 16 14 Blood Pressure 119/64 135/71 H Blood Pressure Mean 82 92 Pulse Ox 95 98 87 Oxygen Delivery Method Room Air Nasal Cannula Room Air Oxygen Flow Rate (L/min) 2 01/11/21 00:08 01/11/21 01:14 Temperature Temperature Source Pulse Rate 74 91 Respiratory Rate 16 15 Blood Pressure 140/74 H 146/86 H Blood Pressure Mean 96 106 Pulse Ox 98 96 Oxygen Delivery Method Nasal Cannula Room Air Oxygen Flow Rate (L/min) 2 Positive well nourished, well developed and obese General Appearance ED: well developed Nutritional Appearance: obese HEENT Reports dry mucous membranes Negative for trauma or tenderness Mouth ED: Yes dry mucous membranes Mouth: dry mucous membranes Eyes PERRL and EOMs intact bilaterally Neck no lymphadenopathy and supple Chest Wall inspection of chest normal Resp normal respiratory effort and clear to auscultation bilaterally Cardio regular rate, regular rhythm and no murmurs GI GI Narrative: Voluntary guarding Inspection: abdominal distention Palpation: soft and tender RUQ and Brown's sign; Negative for rebound tenderness present Extremity normal to inspection General Extremety ED: Negative for tenderness Neuro oriented x3 and CN's II-XII intact bilaterally Sensorium / Orientation: alert Psych mental status grossly normal Skin no rashes or lesions noted and no wounds MDM MDM MDM Narrative Medical decision making narrative: Patient is evaluated for low blood sugar as well as worsening nausea and vomiting as well as abdominal pain. Patient did receive glucose prior to my evaluation subsequent to multiple low blood sugars. His blood sugar has normalized. Patient is have a lot of tenderness in his abdomen especially in the epigastric/right upper quadrant area. He is found to be in acute renal failure with a creatinine of 6.88 and potassium 5.5. He does not have any peaked T waves on his EKG however he does have a first-degree AV block with IA interval of 264. Patient is given calcium gluconate, insulin with further glucose and sodium bicarbonate. In addition he is given 2 L of IV fluids as I suspect his renal failure is prerenal and secondary to volume contraction as well as continued nephrotoxic medications. Right upper quadrant ultrasound shows gallbladder sludge and a mildly dilated common bile duct but no signs of acute cholecystitis. Patient is given fentanyl and Zofran for symptoms in the emergency room. I did discuss the case with surgery on-call, Dr. House, who does not feel that he has an emergent surgical condition and agrees that his metabolic issue should be addressed first however it is possible that he has biliary colic as the cause of his vomiting and pain. Given that he has a normal bilirubin and normal AST and ALT I do not suspect an obstructing stone at this time. Patient will be admitted for further management. He is agreeable with this plan of care. He is hemodynamically stable in the emergency room. Lab Data Labs: Laboratory Results - last 24 hr 01/10/21 01/10/21 01/10/21 21:42 21:47 21:47 WBC 8.1 RBC 4.23 L Hgb 11.7 L Hct 33.4 L MCV 79.0 L MCH 27.7 MCHC 35.0 RDW Std Deviation 46.6 H RDW Coeff of Nathalie 16.2 H Plt Count 255 MPV 11.1 Immature Gran % (Auto) 0.500 Neut % (Auto) 68.1 Lymph % (Auto) 22.6 Elbert % (Auto) 7.7 Eos % (Auto) 0.6 Baso % (Auto) 0.5 Absolute Neuts (auto) 5.5 Absolute Lymphs (auto) 1.82 Nucleated RBC % 0 Sodium 136 Potassium 5.5 H Chloride 99 Carbon Dioxide 23.0 Anion Gap 14 BUN 54 H Creatinine 6.88 H Estim Creat Clear Calc 12.27 Est GFR (MDRD) Af Amer 11 L Est GFR (MDRD) Non-Af 9 L BUN/Creatinine Ratio 7.8 L Glucose 57 L Calcium 9.1 Magnesium Total Bilirubin Direct Bilirubin AST ALT Alkaline Phosphatase Total Protein Albumin Globulin Lipase POC Glucose 55 L 01/10/21 01/10/21 01/10/21 21:47 21:47 21:47 WBC RBC Hgb Hct MCV MCH MCHC RDW Std Deviation RDW Coeff of Nathalie Plt Count MPV Immature Gran % (Auto) Neut % (Auto) Lymph % (Auto) Elbert % (Auto) Eos % (Auto) Baso % (Auto) Absolute Neuts (auto) Absolute Lymphs (auto) Nucleated RBC % Sodium Potassium Chloride Carbon Dioxide Anion Gap BUN Creatinine Estim Creat Clear Calc Est GFR (MDRD) Af Amer Est GFR (MDRD) Non-Af BUN/Creatinine Ratio Glucose Calcium Magnesium 2.1 Total Bilirubin 0.30 Direct Bilirubin 0.12 AST 9 L ALT 16 Alkaline Phosphatase 156 H Total Protein 8.6 H Albumin 3.1 L Globulin 5.5 H Lipase 243 POC Glucose 01/10/21 22:25 WBC RBC Hgb Hct MCV MCH MCHC RDW Std Deviation RDW Coeff of Nathalie Plt Count MPV Immature Gran % (Auto) Neut % (Auto) Lymph % (Auto) [place] % (Auto) Eos % (Auto) Baso % (Auto) Absolute Neuts (auto) Absolute Lymphs (auto) Nucleated RBC % Sodium Potassium Chloride Carbon Dioxide Anion Gap BUN Creatinine Estim Creat Clear Calc Est GFR (MDRD) Af Amer Est GFR (MDRD) Non-Af BUN/Creatinine Ratio Glucose Calcium Magnesium Total Bilirubin Direct Bilirubin AST ALT Alkaline Phosphatase Total Protein Albumin Globulin Lipase POC Glucose 149 H Radiography Diagnostic Testing: Radiology Impression Gallbladder Ultrasound 01/10/21 22:17 IMPRESSION: Gallbladder sludge. Electronically Signed: Albino Archer MD at 23:29 EDT , Service support , Rhythm Strip Rhythm Strip: Sinus Rhythm Rate: 85 Ectopy: None EKG Initial EKG: Attestation: I personally reviewed and interpreted this EKG as follows: Interpretation: Sinus Rhythm Comments: Normal sinus rhythm at a rate of 85 First-degree AV block with a IA interval of 264 QRS 126 QTc 490 Left axis deviation Nonspecific interventricular block Normal ST segments Discharge Plan Dx/Rx/DC Orders Clinical Impression: Hypoglycemia, ANDRE (acute kidney injury), Hyperkalemia, Abdominal pain Disposition Disposition: Acute Care Hospital [facility] Discharge Date/Time: 01/11/21 01:26
[2021-01-10] MEDS: Dextrose 10%-Water 250 ML 40 ML IV (23:43)
[2021-01-10] MEDS: Insulin Lispro 10 UNIT in Syringe 0 ML 6 UNIT IV (23:47)
[2021-01-10 23:58] VITALS: BP 135/71; PULSE 87; RESP 14; O2SAT 98
[2021-01-11] VITALS (14 sets, daily range): BP systolic 128–146; BP diastolic 70–86; PULSE 74–99; RESP 14–18; TEMP 36.3–36.6; O2SAT 87–100; BMI 42.3
[2021-01-11 00:19] LABS: Lipase 243 U/L (73-393)
[2021-01-11 00:23] LABS: AST(SGOT) 9 U/L (15-37); Alanine Aminotransfer ALT/SGPT 16 U/L (16-61); Albumin, Serum 3.1 g/dL (3.2-5.0); Alkaline Phosphatase 156 U/L (45-117); Bilirubin, Direct 0.12 mg/dL (0.00-0.30); Globulin 5.5 g/dL (2.2-4.2); Protein, Total 8.6 g/dL (6.4-8.2)
--- NOTE | 2021-01-11 00:57 | HP.PCM.HOS_ITS ---
HPI - General General Date of Admission: 01/11/21 Date of Service: 01/11/21 Chief Complaint: Intractable abdominal pain, N/V x 2 weeks HPI Narrative The patient is a 55 y/o M residing in Assisted Living w/ PMHx: Anxiety and Depression/Bipolar disorder, Morbid Obesity, Diabetes mellitus type II w/ neuropathy, Chronic venous stasis disease, HTN, HLD, BPH, GERD, Chronic anemia/Fe deficiency who presents to the [facility] ED on 01/11/21 with history of ongoing RUQ and epigastric pain, reported to be dull aching and sharp stabbing, more severe 10/10 following meals, especially fatty meals with constant nausea, emesis with any intake attempts and over the last 2 days even without oral intake with pain worsening prompting evaluation. Patient had been evaluated on 01/06/21 in the ED for similar complaints but has worsened since. Patient also r eports significantly low blood sugars given poor oral intake but has concurrently been still taking his insulin regimen. He rates pain after meals and with palpation 8 out of 10 in severity, currently while resting without any manipulation he rates discomfort 5-6 out of 10. Work-up in the ED included T 98.4, heart rate 83, BP 119/64 initially, respiratory rate 16, 95% on room air, CBC with WC 8.1, hemoglobin 11.7, platelet 255 without marked shift, CMP with potassium 5.5, BUN/Cr 54/6.88, glucose 57, total bilirubin 0.3, direct bilirubin 0.12, AST/ALT 9/16, alk phos 156, lipase 243, rapid Covid antigen negative, gallbladder ultrasound with evidence of gallbladder sludge with a positive sono graphic Brown sign but no evidence of any pericholecystic fluid. In the ED following CMP blood sugar repeat 55 with dextrose administration and eventual repeat 149. PENDING SALE TO [facility] Medical History Anxiety and depression Bipolar disorder Chronic anemia Diabetes HTN (hypertension) Hypercholesterolemia Morbid obesity Neuropathy Rheumatoid arthritis Tobacco use Home Medications Lactobacillus acidophilus [Acidophilus] 2 tab PO DAILY 11/27/20 [History Last Taken Unknown] albuterol 90 mcg INHALATION Q6H PRN 11/27/20 [History Last Taken Unknown] amitriptyline 25 mg PO QHS 11/27/20 [History Last Taken Unknown] amitriptyline 75 mg PO QHS 11/27/20 [History Last Taken Unknown] aspirin 81 mg PO DAILY 11/27/20 [History Last Taken Unknown] atorvastatin 80 mg PO QHS 11/27/20 [History Last Taken Unknown] bupropion HCl 150 mg PO BID 11/27/20 [History Last Taken Unknown] buspirone 5 mg PO BID 11/27/20 [History Last Taken Unknown] cholecalciferol (vitamin D3) [Vitamin D3] 50 mcg PO DAILY 11/27/20 [History Last Taken Unknown] duloxetine 60 mg PO QHS 11/27/20 [History Last Taken Unknown] ezetimibe 10 mg PO DAILY 11/27/20 [History Last Taken Unknown] ferrous sulfate 325 mg PO DAILY 11/27/20 [History Last Taken Unknown] fluticasone propionate 1 spray INTRANASAL DAILY PRN 11/27/20 [History Last Taken Unknown] furosemide 40 mg PO BID 11/27/20 [History Last Taken Unknown] hydroxyzine pamoate 25 mg PO Q6H PRN 11/27/20 [History Last Taken Unknown] insulin lispro See Protocol SUBCUT TID 11/27/20 [History Last Taken Unknown] leflunomide 10 mg PO DAILY 11/27/20 [History Last Taken Unknown] lisinopril 10 mg PO DAILY 11/27/20 [History Last Taken Unknown] loperamide 2 mg PO Q6H PRN 11/27/20 [History Last Taken Unknown] mecobalamin (vitamin B12) [B12 Active] 1,000 mcg PO DAILY 11/27/20 [History Last Taken Unknown] metformin 1,000 mg PO BID 11/27/20 [History Last Taken Unknown] metoprolol tartrate 25 mg PO BID 11/27/20 [History Last Taken Unknown] omega 4-vwp-tqo-fish oil [Fish Oil] 1 cap PO BID 11/27/20 [History Last Taken Unknown] pantoprazole 40 mg PO DAILY 11/27/20 [History Last Taken Unknown] pregabalin 200 mg PO TID 11/27/20 [History Last Taken Unknown] quetiapine 50 mg PO BID 11/27/20 [History Last Taken Unknown] sertraline 50 mg PO DAILY 11/27/20 [History Last Taken Unknown] tamsulosin 0.4 mg PO QHS 11/27/20 [History Last Taken Unknown] tizanidine 4 mg PO TID 11/27/20 [History Last Taken Unknown] insulin degludec [Tresiba FlexTouch U-100] 20 unit SUBCUT QHS 01/10/21 [History Last Taken Unknown] tramadol 50 mg PO BID PRN 01/10/21 [History Last Taken Unknown] Allergy/AdvReac Type Severity Reaction Status Date / Time No Known Allergies Allergy Verified 01/06/21 16:23 Family History (Updated 01/11/21 @ 01:[address] Kanwal Russo MD) Mother Diabetes Father Diabetes Hypertension no surgical history Social History (Updated 01/11/21 @ 01:[address] Kanwal Russo MD) housing: assisted living facility Smoking Status: Current every day smoker tobacco type: cigarettes alcohol intake: never substance use type: does not use ROS ROS Narrative Admission Review of Systems: CONSTITUTIONAL: No weight loss, fever, chills, + weakness or fatigue. HEENT: Eyes: No visual loss, blurred vision, double vision or yellow sclerae. Ears, Nose, Throat: No hearing loss, sneezing, congestion, runny nose or sore throat. SKIN: No rash or itching, lesions, wounds. CARDIOVASCULAR: No chest pain, chest pressure or chest discomfort, palpitations, edema, orthopnea, syncopal events. RESPIRATORY: No shortness of breath, cough or sputum, wheezing, hemoptysis. GASTROINTESTINAL: + anorexia, nausea, vomiting, abdominal pain, No melena, BRBPR. GENITOURINARY: No dysuria, frequency, urgency or retention. NEUROLOGICAL: No headache, dizziness, syncope, paralysis, ataxia, numbness or tingling in the extremities, focal weakness, change in bowel or bladder control, seizure. MUSCULOSKELETAL: + muscle, back pain, joint pain or stiffness. HEMATOLOGIC: + anemia, bleeding or bruising. LYMPHATICS: No enlarged nodes. No history of splenectomy. PSYCHIATRIC: + history of depression or anxiety. ENDOCRINOLOGIC: No reports of sweating, cold or heat intolerance. No polyuria or polydipsia. ALLERGIES: No history of asthma, hives, eczema or rhinitis. Vital Signs Vital Signs Vital Signs: 01/10/21 21:35 01/10/21 23:58 01/11/21 00:00 Temperature 98.4 F Temperature Source Oral Pulse Rate 83 87 Respiratory Rate 16 14 Blood Pressure 119/64 135/71 H Blood Pressure Mean 82 92 Pulse Ox 95 98 87 Oxygen Delivery Method Room Air Nasal Cannula Room Air Oxygen Flow Rate (L/min) 2 01/11/21 00:08 Temperature Temperature Source Pulse Rate 74 Respiratory Rate 16 Blood Pressure 140/74 H Blood Pressure Mean 96 Pulse Ox 98 Oxygen Delivery Method Nasal Cannula Oxygen Flow Rate (L/min) 2 Weight Weight: 289 lb 10.998 oz Body Mass Index (BMI) 42.7 Physical Exam Narrative Physical Examination: General: Awake, alert, oriented x 3 and cooperative, seated upright in the ED bed, fatigued appearing, ill-appearing. Skin: Normal color, normal turgor, no icterus, no cyanosis except bilateral lower extremity noted venous stasis skin changes. HEENT: AT/NC, EOMI, PERRLA, dry MM, poor dentition with lack of several teeth, no carotid bruits or JVD noted. Lungs: Diminished breath sounds, greater decrease BL bases, appropriate effort, no rales, ronchi or wheezing. Heart: Regular rate and rhythm; no gallop, rub audible. Abdomen: Soft, notable right upper quadrant discomfort with palpation with with evident rebound, mild discomfort epigastric palpation, difficult to assess distention given habitus, mildly hyperactive bowel sounds, no obvious HSM but difficult given pain with palpation as noted. Extremities: No cyanosis, no clubbing, bilateral lower extremity ankle mild nonpitting edema, bilateral lower extremity chronic venous stasis skin changes. Neurological: Patient awake, alert, oriented as noted, cognitive function intact; pupils equally reactive to light and accommodation, cranial nerves II- XII grossly normal, moving all 4 extremities, no focal deficits, strength moderately to severely global decrease secondary to acute presentation. Psychiatric: Affect appears fatigued, ill-appearing, no acute evidence of depressive or anxiety feelings. Results Lab / Micro Data Result Diagrams: 01/10/21 21:47 01/10/21 21:47 Labs: Laboratory Results - last 24 hr 01/10/21 21:42: POC Glucose 55 L 01/10/21 21:47: WBC 8.1, RBC 4.23 L, Hgb 11.7 L, Hct 33.4 L, MCV 79.0 L, MCH 27.7, MCHC 35.0, RDW Std Deviation 46.6 H, RDW Coeff of Nathalie 16.2 H, Plt Count 255, MPV 11.1, Immature Gran % (Auto) 0.500, Neut % (Auto) 68.1, Lymph % (Auto) 22.6, [place] % (Auto) 7.7, Eos % (Auto) 0.6, Baso % (Auto) 0.5, Absolute Neuts (auto) 5.5, Absolute Lymphs (auto) 1.82, Nucleated RBC % 0 01/10/21 21:47: Sodium 136, Potassium 5.5 H, Chloride 99, Carbon Dioxide 23.0, Anion Gap 14, BUN 54 H, Creatinine 6.88 H, Estim Creat Clear Calc 12.27, Est GFR (MDRD) Af Amer 11 L, Est GFR (MDRD) Non-Af 9 L, BUN/Creatinine Ratio 7.8 L, Glucose 57 L, Calcium 9.1 01/10/21 21:47: Total Bilirubin 0.30, Direct Bilirubin 0.12, AST 9 L, ALT 16, Alkaline Phosphatase 156 H, Total Protein 8.6 H, Albumin 3.1 L, Globulin 5.5 H 01/10/21 21:47: Lipase 243 01/10/21 22:25: POC Glucose 149 H Micro: Microbiology 01/10/21 23:45 Nasal Secretion SARS-CoV-2 Antigen (Rapid) - Final Radiology Impression Gallbladder Ultrasound 01/10/21 22:17 IMPRESSION: Gallbladder sludge. Electronically Signed: Albino Archer MD at 23:29 EDT , Service support , Assessment & Plan Assessment/Plan (1) Abdominal pain: QUALIFIERS: Abdominal location: right upper quadrant Qualified Code(s): R10.11 - Right upper quadrant pain (2) ANDRE (acute kidney injury): (3) Hyperkalemia: (4) Hypoglycemia: PLAN: The patient is a 55 y/o M residing in Assisted Living w/ PMHx: Anxiety and Depression/Bipolar disorder, Morbid Obesity, Diabetes mellitus type II w/ neuropathy, Chronic venous stasis disease, HTN, HLD, BPH, GERD, Chronic anemia/Fe deficiency who presents to the [facility] ED on 01/11/21 with history of ongoing RUQ and epigastric pain, reported to be dull aching and sharp stabbing, more severe 10/10 following meals, especially fatty meals with constant nausea, emesis with any intake attempts and over the last 2 days even without oral intake with pain worsening prompting evaluation. 1. Acute Intractable N/V/RUQ pain, possible Cholecystitis, possible Severe Symptomatic Biliary Colic: Will admit to PCU given severe episodes hypoglycemia, electrolyte disturbances to be cautious, will continue Surgery consultation w/ Dr. House, maintain on IVFs, NPO, PPI, IV/po pain control, trend lipase, CMP, CBC, to be cautious will initiate IV zosyn given severity of RUQ pain although no marked WBC elevation or L shift thus will defer to Surgery if discontinuation preference. Will hold on further imaging, i.e. HIDA for surgery evaluation. 2. Acute kidney injury: Secondary to GI losses as noted above. Admission BUN/Cr 54/6.88, prior baseline creatinine noted to be most recently 1.52 on 01/06/2021 which suspect is likely mildly elevated above his baseline given at that time he already had poor oral intake and GI losses. Will continue to aggressively hydrate, hold nephrotoxic medications and repeat chemistry in AM. If no improvement would plan FeNa assessment. 3. Severe Hypoglycemia, Persistent: Patient with ongoing episodes of hypoglycemia, also evident in the ED, patient ministered several rounds of dextrose although complicated by necessity for treatment of hyperkalemia as well as noted below, will continue to closely monitor with every 2 hours Accu-Cheks and if any persistent ongoing hypoglycemia will initiate dextrose IV regimen. We will hold patient insulin, currently n.p.o. Once blood sugars improve will transition to every 6 hour Accu-Cheks with insulin sliding scale. 4. Hyperkalemia, mild: Admission potassium 5.5, patient aggressively hydrated with 2 L normal saline in the ED, administered calcium gluconate as well as dextrose bolus with a one-time dose of insulin per ED physician in addition to sodium bicarb. We will repeat CMP in a.m. to assure continued improvement. If necessary may consider Kayexalate addition. 5. Chronic anemia, iron deficiency anemia: Admission hemoglobin 11.7, MCV 79, most recent hemoglobin noted 01/06/2021 11.7 also, will continue to trend, continue iron supplementation. 6. Hx Chronic BL LE Wounds: Patient with chronic right helix and left plantar wounds which have both healed, [facility], encouraged continued diabetic compliance. 7. Anxiety and depression/bipolar disorder: We will temporarily hold patient psychiatric regimen given severity of ANDRE, low threshold to quickly resume given significant regimen. 8. Hypertension: We will continue patient home metoprolol regimen, holding patient lisinopril and Lasix given ANDRE, as needed IV hydralazine. 9. Hyperlipidemia: Given bilirubin appropriate level and LFTs normal we will continue patient home statin regimen. 10. Rheumatoid arthritis: We will continue patient home leflunomide regimen. 11. Morbid Obesity: Weight loss and lifestyle changes encouraged, nutrition consulted. 12. GERD: We will maintain on IV PPI. 13. Tobacco Abuse: Encouraged cessation, inpatient consultation per RT, NR if desired. 14. DVT prophylaxis: SCDs, heparin. Charges/Coding Visit Charges Inpatient E&M: 42730 Init Hosp L3
--- NOTE | 2021-01-11 01:06 | ED.RN ---
mother made aware of admission at this time
--- NOTE | 2021-01-11 01:11 | PCS.PANDOC ---
PANDEMIC DOCUMENTATION INITIATED: Date: 12/30/2020 Time: 190
[2021-01-11] MEDS: 0.9% Normal Saline 1,000 ML 999 ML IV (01:13)
[2021-01-11 01:27] LABS: Magnesium 2.1 mg/dL (1.6-2.6)
--- NOTE | 2021-01-11 01:44 | PCS.PANDOC ---
PANDEMIC DOCUMENTATION INITIATED: Date: 12/30/2020 Time: 190
[2021-01-11 02:16] LABS: Bedside Glucose 74 mg/dL (70-110)
[2021-01-11] MEDS: 0.9% Normal Saline 1,000 ML 125 ML IV (03:03)
[2021-01-11 04:36] LABS: Bedside Glucose 197 mg/dL (70-110)
[2021-01-11] MEDS: 0.9% Saline Lock 10 ML Syringe IV (05:12)
[2021-01-11 06:33] LABS: Absolute Lymphocyte Count 2.53 X10^3/uL (0.83-4.51); Absolute Neutrophil Count 5.2 X10^3/uL (2.0-7.7); Basophil# 0.03 X10^3/uL; Basophil% 0.4 % (0-1); Eosinophil# 0.11 X10^3/uL; Eosinophils% 1.3 % (0-5); Hematocrit 34.3 % (40-54); Hemoglobin 11.7 g/dL (13.0-16.5); Lymphocyte # 2.53 X10^3/ul (0.83-4.51); Lymphocyte % 29.8 % (19-41); Mean Corp Hgb Conc 34.1 g/dL (32-36); Mean Corpuscular Hgb 26.8 pg (27.0-32.0); Mean Corpuscular Volume 78.7 fL (80-94); Mean Platelet Vol. 10.7 fl (6.2-12.0); Monocyte# 0.61 X10^3/uL; Monocyte% 7.2 % (0-10); NRBC Flagged by Analyzer 0 % (0-5); Neutrophil # 5.18 X10^3/uL (2.7-7.7); Neutrophil % 61.1 % (47-70); Platelet Count 235 K/mm3 (150-450); RBC Distribution Width CV 15.9 % (11.6-14.6); RBC Distribution Width SD 45.4 fl (35.1-43.9); Red Blood Count 4.36 M/mm3 (4.6-6.2); White Blood Count 8.5 K/mm3 (4.4-11.0)
[2021-01-11 06:35] LABS: Bedside Glucose 179 mg/dL (70-110)
--- NOTE | 2021-01-11 06:58 | EX.PCM.CON.S ---
Assessment & Plan Assessment/Plan (1) Abdominal pain: QUALIFIERS: Abdominal location: right upper quadrant Qualified Code(s): R10.11 - Right upper quadrant pain (2) Gallbladder sludge: (3) ANDRE (acute kidney injury): PLAN: Reviewed patient's CT from previous and ultrasound and labs. Patient did quite a bit of constipation on the right side and transverse colon. In talking to the patient he has a bowel movement maybe once a week he is only has a small bowel movement since his CAT scan. Patient did state he has had issues with constipation before. With abdominal pain did resolve with some enemas. But was not as bad. Patient's ultrasound did show some small mild sludge in the gallbladder his wall is 2 mm no pericholecystic fluid they did report a positive Brown sign. On my exam most of his pain now is epigastric and left upper quadrant. Plan to stop the Zosyn and give patient enemas?1 now and another one 4 hours if no results and see if that helps if there is still continued pain would probably get a HIDA scan without CCK to officially rule out the gallbladder. We will continue to follow. Marine House M.D. Pager: [phone] [facility] [address] [place] [address], [facility], [address] [place] [address] Office: [phone] HPI Consult Data Date of Consult: 01/12/21 HPI Narrative HPI Narrative: BERTA JARAMILLO, is a 55 M who presents to the ER due to abdominal pain nausea and vomiting from assisted living. Patient states he is having right upper quadrant pain for about 2 weeks?patient states that bowel movement as well as burping made his pain feel better. Patient also stated that food made it feel worse. Patient only has bowel movements about once a week or so and denies being on a bowel regimen. Patient states he previously did have some her discomfort and it was due to constipation which he did get an enema and it did improve. On admit patient was also noted to have acute kidney injury with creatinine 6.8. Patient had a ultrasound the gallbladder showed normal gallbladder wall, no pericholecystic fluid, gallbladder sludge and was reported positive Brown sign. Patient white blood cell count and LFTs were all within normal limits with no left shift. [facility] Medical History Anxiety and depression Bipolar disorder Chronic anemia Diabetes HTN (hypertension) Hypercholesterolemia Morbid obesity Neuropathy Rheumatoid arthritis Tobacco use Home Medications Lactobacillus acidophilus [Acidophilus] 2 tab PO DAILY 11/27/20 [History Last Taken Unknown] albuterol 90 mcg INHALATION Q6H PRN 11/27/20 [History Last Taken Unknown] amitriptyline 25 mg PO QHS 11/27/20 [History Last Taken Unknown] amitriptyline 75 mg PO QHS 11/27/20 [History Last Taken Unknown] aspirin 81 mg PO DAILY 11/27/20 [History Last Taken Unknown] atorvastatin 80 mg PO QHS 11/27/20 [History Last Taken Unknown] bupropion HCl 150 mg PO BID 11/27/20 [History Last Taken Unknown] buspirone 5 mg PO BID 11/27/20 [History Last Taken Unknown] cholecalciferol (vitamin D3) [Vitamin D3] 50 mcg PO DAILY 11/27/20 [History Last Taken Unknown] duloxetine 60 mg PO QHS 11/27/20 [History Last Taken Unknown] ezetimibe 10 mg PO DAILY 11/27/20 [History Last Taken Unknown] ferrous sulfate 325 mg PO DAILY 11/27/20 [History Last Taken Unknown] fluticasone propionate 1 spray INTRANASAL DAILY PRN 11/27/20 [History Last Taken Unknown] furosemide 40 mg PO BID 11/27/20 [History Last Taken Unknown] hydroxyzine pamoate 25 mg PO Q6H PRN 11/27/20 [History Last Taken Unknown] insulin lispro See Protocol SUBCUT TID 11/27/20 [History Last Taken Unknown] leflunomide 10 mg PO DAILY 11/27/20 [History Last Taken Unknown] lisinopril 10 mg PO DAILY 11/27/20 [History Last Taken Unknown] loperamide 2 mg PO Q6H PRN 11/27/20 [History Last Taken Unknown] mecobalamin (vitamin B12) [B12 Active] 1,000 mcg PO DAILY 11/27/20 [History Last Taken Unknown] metformin 1,000 mg PO BID 11/27/20 [History Last Taken Unknown] metoprolol tartrate 25 mg PO BID 11/27/20 [History Last Taken Unknown] omega 3-cqj-cfq-fish oil [Fish Oil] 1 cap PO BID 11/27/20 [History Last Taken Unknown] pantoprazole 40 mg PO DAILY 11/27/20 [History Last Taken Unknown] pregabalin 200 mg PO TID 11/27/20 [History Last Taken Unknown] quetiapine 50 mg PO BID 11/27/20 [History Last Taken Unknown] sertraline 50 mg PO DAILY 11/27/20 [History Last Taken Unknown] tamsulosin 0.4 mg PO QHS 11/27/20 [History Last Taken Unknown] tizanidine 4 mg PO TID 11/27/20 [History Last Taken Unknown] insulin degludec [Tresiba FlexTouch U-100] 20 unit SUBCUT QHS 01/10/21 [History Last Taken Unknown] tramadol 50 mg PO BID PRN 01/10/21 [History Last Taken Unknown] Allergy/AdvReac Type Severity Reaction Status Date / Time No Known Allergies Allergy Verified 01/06/21 16:23 Family History (Updated 01/11/21 @ 01:[address] Kanwal Russo MD) Mother Diabetes Father Diabetes Hypertension Social History (Updated 01/11/21 @ 01:[address] Kanwal Russo MD) housing: assisted living facility Smoking Status: Light Smoker (<10/day) alcohol intake: never substance use type: does not use ROS ROS Narrative CONSTITUTIONAL: No fever, chills, +fatigue. HEENT: Eyes: No blurred vision SKIN: No rash CARDIOVASCULAR: No chest pain RESPIRATORY: No shortness of breath, GASTROINTESTINAL: + anorexia, nausea, vomiting, abdominal pain, No melena, BRBPR. GENITOURINARY: No dysuria NEUROLOGICAL: No headache HEMATOLOGIC: denies anemia PSYCHIATRIC: + history of depression or anxiety. Physical Exam Const alert, oriented x3 and no apparent distress HEENT normocephalic and head/scalp atraumatic Resp normal respiratory effort Cardio regular rate GI soft to palpation; Negative for non-distended Palpation: tender epigastric and LUQ; Negative for guarding Extremity no clubbing, cyanosis or edema Neuro CN's II-XII intact bilaterally Psych Mood & Affect: flat affect Lab / Micro Data Result Diagrams: 01/12/21 06:58 01/12/21 06:58 Labs: Laboratory Results - last 24 hr 01/10/21 21:42: POC Glucose 55 L 01/10/21 21:47: WBC 8.1, RBC 4.23 L, Hgb 11.7 L, Hct 33.4 L, MCV 79.0 L, MCH 27.7, MCHC 35.0, RDW Std Deviation 46.6 H, RDW Coeff of Nathalie 16.2 H, Plt Count 255, MPV 11.1, Immature Gran % (Auto) 0.500, Neut % (Auto) 68.1, Lymph % (Auto) 22.6, [place] % (Auto) 7.7, Eos % (Auto) 0.6, Baso % (Auto) 0.5, Absolute Neuts (auto) 5.5, Absolute Lymphs (auto) 1.82, Nucleated RBC % 0 01/10/21 21:47: Sodium 136, Potassium 5.5 H, Chloride 99, Carbon Dioxide 23.0, Anion Gap 14, BUN 54 H, Creatinine 6.88 H, Estim Creat Clear Calc 12.27, Est GFR (MDRD) Af Amer 11 L, Est GFR (MDRD) Non-Af 9 L, BUN/Creatinine Ratio 7.8 L, Glucose 57 L, Calcium 9.1 01/10/21 21:47: Total Bilirubin 0.30, Direct Bilirubin 0.12, AST 9 L, ALT 16, Alkaline Phosphatase 156 H, Total Protein 8.6 H, Albumin 3.1 L, Globulin 5.5 H 01/10/21 21:47: Lipase 243 01/10/21 21:47: Magnesium 2.1 01/10/21 22:25: POC Glucose 149 H 01/11/21 02:08: POC Glucose 74 01/11/21 04:29: POC Glucose 197 H 01/11/21 06:16: WBC 8.5, RBC 4.36 L, Hgb 11.7 L, Hct 34.3 L, MCV 78.7 L, MCH 26.8 L, MCHC 34.1, RDW Std Deviation 45.4 H, RDW Coeff of Nathalie 15.9 H, Plt Count 235, MPV 10.7, Immature Gran % (Auto) 0.200, Neut % (Auto) 61.1, Lymph % (Auto) 29.8, [place] % (Auto) 7.2, Eos % (Auto) 1.3, Baso % (Auto) 0.4, Absolute Neuts (auto) 5.2, Absolute Lymphs (auto) 2.53, Nucleated RBC % 0 01/11/21 06:25: POC Glucose 179 H Micro: Microbiology 01/10/21 23:45 Nasal Secretion SARS-CoV-2 Antigen (Rapid) - Final Rhythm Strip Rhythm Strip: Sinus Rhythm Rate: 85 Ectopy: None Radiology Impression Gallbladder Ultrasound 01/10/21 22:17 IMPRESSION: Gallbladder sludge. Electronically Signed: Albino Archer MD at 23:29 EDT , Service support , Charges/Coding Visit Charges Inpatient E&M: 90065 Init Hosp L3
[2021-01-11 07:01] LABS: ALB/GLOB Ratio 0.6 RATIO (0.9-2.4); AST(SGOT) 10 U/L (15-37); Alanine Aminotransfer ALT/SGPT 13 U/L (16-61); Albumin, Serum 2.5 g/dL (3.2-5.0); Alkaline Phosphatase 134 U/L (45-117); Anion Gap 16 (5-15); BUN 52 mg/dL (7-18); BUN/Creat Ratio 7.6 RATIO (10-20); Calcium,Total 8.5 mg/dL (8.5-10.1); Chloride 98 mmol/L (98-107); Creatinine, Serum 6.83 mg/dL (0.70-1.30); EST Glomerular Filtration Rate 9 mL/min (>60); Est Glom Filt Rate - Afr Amer 11 mL/min (>60); Estimated Creatinine Clearance 12.36 ml/min; Globulin 4.5 g/dL (2.2-4.2); Glucose 182 mg/dL (74-106); Potassium 4.6 mmol/L (3.5-5.1); Sodium Level 134 mmol/L (136-145)
--- NOTE | 2021-01-11 08:42 | US_ITS ---
History: Acute kidney injury EXAMINATION: US Kidney(s) complete (eg, kidneys and bladder) TECHNIQUE: Light scale and color doppler images were obtained of the kidneys. COMPARISON: None FINDINGS: RIGHT KIDNEY: 12.6 cm in length. No focal parenchymal mass, hydronephrosis, nephrolithiasis, or perinephric fluid collection is noted. LEFT KIDNEY: 12.4 cm in length. No focal parenchymal mass, hydronephrosis, nephrolithiasis, or perinephric fluid collection is noted. URINARY BLADDER: Contracted US/Kidney and Bladder IMPRESSION: Negative renal ultrasound. at 1656 Reported and signed by: Naman Knight MD Electronically Signed: Naman Knight MD at 16:55 EDT Tel , Service support ,
--- NOTE | 2021-01-11 08:46 | CT_ITS ---
EXAM: CT ABDOMEN WITHOUT INTRAVENOUS CONTRAST : 1965 CLINICAL INDICATION: abdominal pain -- with oral contrast only TECHNIQUE: Helically acquired images were obtained of the abdomen without intravenous contrast. This CT exam was performed using one or more of the following dose reduction techniques: automated exposure control, adjustment of the mA and/or kV according to patient size, and/or use of iterative reconstruction technique. This report was created using [employer] report generation technology. COMPARISON: January 06, 2021 FINDINGS: LOWER THORAX: Mild bibasilar atelectasis. No cardiomegaly. No significant pericardial effusion. LIVER: Unremarkable. Homogeneous. GALLBLADDER AND BILE DUCTS: Vicarious contrast excretion noted within the gallbladder. Question gallbladder stones/sludge. No gallbladder distention or wall edema. No intra- or extrahepatic biliary ductal dilation. PANCREAS: Unremarkable. No focal cystic mass. SPLEEN: Calcified granulomata noted within the spleen. ADRENALS: Unremarkable. No nodules. KIDNEYS AND URETERS: Unremarkable. Normal renal size and position. No hydronephrosis. STOMACH AND BOWEL: Unremarkable. No stomach or bowel distention. No focal inflammatory change. APPENDIX: Appendix is visualised and normal in appearance. INTRAPERITONEAL SPACE: Unremarkable. No ascites or other fluid collection. No free air. BONES/JOINTS: Unremarkable. No suspicious lytic or blastic abnormality. SOFT TISSUES: Unremarkable. No discrete abdominal wall hernia. VASCULATURE: Unremarkable. Abdominal aorta is non-dilated. LYMPH NODES: No enlarged lymph nodes. CT/Abdomen WITH ORAL Cont Only IMPRESSION: 1. No acute abnormality. 2. No interval change. Individualized dose optimization techniques were used for this CT. at 1216 Reported and signed by: Naman Knight MD Electronically Signed: Naman Knight MD at 12:15 EDT Tel , Service support ,
[2021-01-11 08:56] LABS: Bedside Glucose 128 mg/dL (70-110)
[2021-01-11 09:01] LABS: Mucous, Urine 0 SEEN /hpf (<or=2+)
[2021-01-11 09:06] LABS: Color, Urine Yellow (Yellow); Glucose, Dipstick Normal (Normal); Ketone-Dipstick Negative (Negative); Leukocyte Esterase-Dipstick 25 /ul (Negative); Nitrite-Dipstick Negative (Negative); Occult Blood-Urine 10 /ul (Negative); Protein-Dipstick 30 mg/dl (Negative); Urine Bilirubin Dipstick Negative (Negative); Urine Clarity Sl. Cloudy (Clear); Urine Urobilinogen Normal (Normal)
[2021-01-11 09:19] LABS: Urine Sodium 61 mmol/L (Not Establ.)
[2021-01-11 09:23] LABS: Bacteria RARE /hpf (None Seen); Red Blood Cells-Urine 0-5 SEEN /hpf (0-5); Squamous Epithelial Cells - UA 5-10 SEEN /hpf (0-5); Transitional Epithelial - Ur 0-5 SEEN /hpf (0-5); White Blood Cells 0-5 SEEN /hpf (0-5)
[2021-01-11] MEDS: 0.9% Normal Saline 1,000 ML 150 ML IV (12:03)
[2021-01-11] MEDS: Heparin Injection (Vial) 5,000 UNIT/ML VIAL 5000 UNIT SC ×2 (12:07→22:14)
[2021-01-11 12:20] LABS: Bedside Glucose 97 mg/dL (70-110)
[2021-01-11] MEDS: Morphine 2 MG/ML Syringe IV (14:08)
--- NOTE | 2021-01-11 14:20 | PN.HOSP_ITS ---
Documented by User: Laya Castro NP, PATIENT REGISTRATION SPECIALIST-C 01/11/21 14:35 Subjective Subjective Patient seen and examined. Denies nausea, vomiting. Reports mild improvement in abdominal pain. Has had a few small liquid stools. Matthew placed for suspected retention. Patient states he has had issues with voiding for some time now. Objective Data Objective Data Vital Signs: Vital Signs Temp Pulse Resp BP Pulse Ox 97.7 F L 93 14 128/70 H 95 01/11/21 14:04 01/11/21 14:04 01/11/21 14:04 01/11/21 14:04 01/11/21 14:04 Oxygen Flow Rate (L/min) 2 Oxygen Delivery Method Room Air Weight: 286 lb 2.56 oz Body Mass Index (BMI) 42.3 Intake & Output: Intake and Output for Last 24 Hours 01/09/21 01/10/21 01/11/21 23:59 23:59 23:59 Intake Total 4552.08 / 4552.08 Output Total 200 / 200 Balance 4352.08 / 4352.08 Lab / Micro Data Result Diagrams: 01/11/21 06:16 01/11/21 06:16 Labs: Laboratory Results - last 24 hr 01/10/21 21:42: POC Glucose 55 L 01/10/21 21:47: WBC 8.1, RBC 4.23 L, Hgb 11.7 L, Hct 33.4 L, MCV 79.0 L, MCH 27.7, MCHC 35.0, RDW Std Deviation 46.6 H, RDW Coeff of Nathalie 16.2 H, Plt Count 255, MPV 11.1, Immature Gran % (Auto) 0.500, Neut % (Auto) 68.1, Lymph % (Auto) 22.6, [place] % (Auto) 7.7, Eos % (Auto) 0.6, Baso % (Auto) 0.5, Absolute Neuts (auto) 5.5, Absolute Lymphs (auto) 1.82, Nucleated RBC % 0 01/10/21 21:47: Sodium 136, Potassium 5.5 H, Chloride 99, Carbon Dioxide 23.0, Anion Gap 14, BUN 54 H, Creatinine 6.88 H, Estim Creat Clear Calc 12.27, Est GFR (MDRD) Af Amer 11 L, Est GFR (MDRD) Non-Af 9 L, BUN/Creatinine Ratio 7.8 L, Glucose 57 L, Calcium 9.1 01/10/21 21:47: Total Bilirubin 0.30, Direct Bilirubin 0.12, AST 9 L, ALT 16, A lkaline Phosphatase 156 H, Total Protein 8.6 H, Albumin 3.1 L, Globulin 5.5 H 01/10/21 21:47: Lipase 243 01/10/21 21:47: Magnesium 2.1 01/10/21 22:25: POC Glucose 149 H 01/11/21 02:08: POC Glucose 74 01/11/21 04:29: POC Glucose 197 H 01/11/21 06:16: WBC 8.5, RBC 4.36 L, Hgb 11.7 L, Hct 34.3 L, MCV 78.7 L, MCH 26.8 L, MCHC 34.1, RDW Std Deviation 45.4 H, RDW Coeff of Nathalie 15.9 H, Plt Count 235, MPV 10.7, Immature Gran % (Auto) 0.200, Neut % (Auto) 61.1, Lymph % (Auto) 29.8, [place] % (Auto) 7.2, Eos % (Auto) 1.3, Baso % (Auto) 0.4, Absolute Neuts (auto) 5.2, Absolute Lymphs (auto) 2.53, Nucleated RBC % 0 01/11/21 06:16: Sodium 134 L, Potassium 4.6, Chloride 98, Carbon Dioxide 20.0 L, Anion Gap 16 H, BUN 52 H, Creatinine 6.83 H, Estim Creat Clear Calc 12.36, Est GFR (MDRD) Af Amer 11 L, Est GFR (MDRD) Non-Af 9 L, BUN/Creatinine Ratio 7.6 L, Glucose 182 H, Calcium 8.5, Total Bilirubin 0.30, AST 10 L, ALT 13 L, Alkaline Phosphatase 134 H, Total Protein 7.0, Albumin 2.5 L, Globulin 4.5 H, Albumin/Globulin Ratio 0.6 L 01/11/21 06:25: POC Glucose 179 H 01/11/21 08:32: POC Glucose 128 H 01/11/21 08:50: Urine Color Yellow, Urine Clarity Sl. Cloudy, Urine pH 5.0, Ur Specific [place] 1.020, Urine Protein 30 H, Urine Glucose (UA) Normal, Urine Ketones Negative, Urine Occult Blood 10 H, Urine Nitrite Negative, Urine Bilirubin Negative, Urine Urobilinogen Normal, Ur Leukocyte Esterase 25 H, Urine RBC 0-5 SEEN, Urine WBC 0-5 SEEN, Ur Squamous Epith Cells 5-10 SEEN, Ur Transition Epith Cell 0-5 SEEN, Urine Bacteria RARE, Urine Mucus 0 SEEN 01/11/21 08:50: Ur Random Sodium 61, Urine Creatinine 79.00 01/11/21 12:14: POC Glucose 97 Micro: Microbiology 01/10/21 23:45 Nasal Secretion SARS-CoV-2 Antigen (Rapid) - Final Radiography Diagnostic Testing: Radiology Impression Gallbladder Ultrasound 01/10/21 22:17 IMPRESSION: Gallbladder sludge. Electronically Signed: Albino Archer MD at 23:29 EDT , Service support , Abdomen CT 01/11/21 08:46 IMPRESSION: 1. No acute abnormality. 2. No interval change. Individualized dose optimization techniques were used for this CT. at 1216 Reported and signed by: Naman Knight MD Electronically Signed: Naman Knight MD at 12:15 EDT Tel , Service support , Rhythm Strip Rhythm Strip: Sinus Rhythm Rate: 85 Ectopy: None Physical Exam Const alert, oriented x3 and no apparent distress Orientation / Consciousness: awake, oriented to person, oriented to place and or iented to time HEENT normocephalic and moist oral mucous membranes Eyes PERRL, EOMs intact bilaterally and conjunctivae normal Neck no lymphadenopathy Resp normal respiratory effort and clear to auscultation bilaterally Cardio regular rate, regular rhythm and no murmurs Peripheral Pulses: pulses 2+ throughout GI normal to inspection, nondistended, normoactive bowel sounds, non-tender and non-distended Extremity normal to inspection Skin no rashes or lesions noted Skin Narrative: Chronic bilateral lower extremity wounds. Lesions: no lesions Rashes: no rashes Trauma: no lacerations or abrasions Neuro CN's II-XII intact bilaterally, no focal motor deficits, no sensory deficits noted and deep tendon reflexes 2+ bilaterally Psych mental status grossly normal and affect normal Assessment & Plan Assessment/Plan (1) ANDRE (acute kidney injury): PLAN: 1. Intractable abdominal pain-CT of abdomen with no acute abnormality. Gallbladder ultrasound showed gallbladder sludge. Patient reports no bowel movement in 1 week. Aggressive bowel regimen initiated. If patient continues to have abdominal pain or develops nausea, vomiting, will order HIDA scan without CCK. Begin clear liquids. General surgery consulted. 2. Acute kidney injury with associated hyperkalemia on chronic kidney disease stage IIIa-chronic kidney disease stage IIIa based on prior MDRD GFR. IV fluids, trend BMP. Urine studies ordered. Renal ultrasound pending. Nephrology consulted. Patient reports a history of difficulty urinating. We will begin Flomax due to suspected retention. Matthew in place. 3. Hypoglycemia-improved. Insulin and oral regimen on hold. Serial Accu-Cheks. 4. Chronic bilateral lower extremity wounds-wound RN consult. Do not appear acutely infected. 5. Anxiety/depression/bipolar disorder-continue home medication regimen following improvement of ANDRE. 6. Hypertension-continue metoprolol. Hold HARITHA inhibitor. 7. Hyperlipidemia-continue statin. 8. Rheumatoid arthritis-on leflunomide. 9. Morbid obesity-encouraged diet and lifestyle modifications. 10. GERD-on PPI. 11. Tobacco dependence-encouraged cessation. DVT prophylaxis-Heparin subcu This patient was seen by MARIAN العلي under the supervision of Dr. Eastman. Documented by User: Dr. Nara Eastman MD 01/11/21 17:19 Objective Data Lab / Micro Data Result Diagrams: 01/11/21 06:16 01/11/21 06:16 Charges/Coding Addendum Addendum: Patient seen by Laya FONSECA under my supervision Patient seen and examined. he was admitted with a complaint of intractable abdominal pain, nausea and vomiting for ~ 2 weeks prior to admission. Was found to be in ANDRE on admission. There were concerns for acute cholecystitis that he had gallbladder ultrasound which showed positive Brown sign. However general surgery has evaluated him and has ruled out acute cholecystitis and thinks his symptoms are due to constipation which he has had before. Patient still complains of mild lower abdominal pain. He denies any fever chills, nausea vomiting and does admit to not taking in a lot of fluids because in his assisted living facility. Review of systems otherwise negative. Labs and vitals reviewed. Creatinine was 6.88 on admission and has trended downwards to 6.83. O/E: Const alert, oriented x3 and no apparent distress Orientation / Consciousness: awake, oriented to person, oriented to place and oriented to time HEENT normocephalic and moist oral mucous membranes Eyes PERRL, EOMs intact bilaterally and conjunctivae normal Neck no lymphadenopathy Resp normal respiratory effort and clear to auscultation bilaterally Cardio regular rate, regular rhythm and no murmurs Peripheral Pulses: pulses 2+ throughout GI normal to inspection, nondistended, normoactive bowel sounds, non-tender and non-distended Extremity normal to inspection Skin no rashes or lesions noted Skin Narrative: Chronic bilateral lower extremity wounds. Lesions: no lesions Rashes: no rashes Trauma: no lacerations or abrasions Neuro CN's II-XII intact bilaterally, no focal motor deficits, no sensory deficits noted and deep tendon reflexes 2+ bilaterally Psych mental status grossly normal and affect normal Plan is continue gentle hydration with IV fluids. CT of the abdomen done on account of severe ANDRE shows no acute ab normality with the kidneys or bladder. Urine sodium ordered. Nephrology consulted and thinks her symptoms are likely due to ANDRE due to ATN from decreased intake. Continue gentle hydration. Hyperkalemia has resolved and is down to 4.6. Continue trending. Rest as per MARIAN العلي's notes which I have reviewed and endorsed. Visit Charges Inpatient E&M: 08868 Subs Hosp L3
--- NOTE | 2021-01-11 16:24 | CON.PCM.RE_ITS ---
Assessment & Plan Assessment/Plan (1) ANDRE (acute kidney injury): PLAN: I suspect that ANDRE is due to prerenal azotemia. The patient is volume depleted by both history and physical examination. He has also been on HARITHA inhibitor and furosemide. The patient was given these medications even with decreased oral intake prior to admission. Another possibility is ischemic ATN from prolonged prerenal state. Nephrotoxic ATN from conditions such as rhabdomyolysis is less likely. I will check CK. Urinalysis did not show significant RBCs or proteinuria. Therefore, vasculitis or glomerulonephritis is less likely. Low suspicion for acute interstitial nephritis. There is no evidence of obstructive ANDRE on CT scan today. Agree with hydrating the patient with IV fluid. However, I will switch IV fluid to LR since the patient has metabolic acidosis. I will check urine indices. Agree with holding lisinopril and furosemide. There is no need for kidney replacement therapy today. Continue to monitor renal function while we are hydrating the patient. The current medications are reviewed and are appropriately dosed for the patient's estimated creatinine clearance. (2) Hyperkalemia: PLAN: Potassium level was high at 5.5 mmol/L last night. Potassium is better today at 4.6 mmol/L. However, given ongoing acidosis, I will change IV fluid to LR to prevent hyperkalemia due to acidosis. (3) Metabolic acidosis: PLAN: This is likely due to ANDRE. The patient denies diarrhea. As mentioned above, we will hydrate the patient with LR instead of saline which can exacerbate metabolic acidosis when given in high amount. (4) Abdominal pain: QUALIFIERS: Abdominal location: right upper quadrant Qualified Code(s): R10.11 - Right upper quadrant pain PLAN: Work-up for etiology of abdominal pain is underway. General surgery has also been consulted. HPI Consult Data Date of Consult: 01/11/21 HPI Narrative Reason for Consultation: ANDRE HPI Narrative: BERTA JARAMILLO, is a 55-year-old man who has a past history of bipolar disorder, anxiety, type 2 diabetes mellitus, peripheral neuropathy, hypertension, hyperlipidemia, BPH, GERD, and iron deficiency anemia. The patient presented to the hospital with a 2 weeks history of mainly epiga stric abdominal pain. Abdominal pain is associated with daily nausea, vomiting and dry heaves. He denies diarrhea. The patient also denies hematochezia or melena. The patient tells me that he has not been eating well for the last 2 weeks, but he cannot quantify how much weight he has lost. The patient lives in an assisted living facility. Medications are given to him, and he has been taking medication despite poor oral intake. The patient is on lisinopril and furosemide at home. The patient reports decreased urine output over the past several days. However, there is no incontinence, hematuria, or dribbling. CT of the abdomen today did not reveal any hydronephrosis. It is unclear to me whether the patient was given any as needed analgesic agent including NSAIDs prior to admission. PFSH Medical History Anxiety and depression Bipolar disorder Chronic anemia Diabetes HTN (hypertension) Hypercholesterolemia Morbid obesity Neuropathy Rheumatoid arthritis Tobacco use Home Medications Lactobacillus acidophilus [Acidophilus] 2 tab PO DAILY 11/27/20 [History Last Taken Unknown] albuterol 90 mcg INHALATION Q6H PRN 11/27/20 [History Last Taken Unknown] amitriptyline 25 mg PO QHS 11/27/20 [History Last Taken Unknown] amitriptyline 75 mg PO QHS 11/27/20 [History Last Taken Unknown] aspirin 81 mg PO DAILY 11/27/20 [History Last Taken Unknown] atorvastatin 80 mg PO QHS 11/27/20 [History Last Taken Unknown] bupropion HCl 150 mg PO BID 11/27/20 [History Last Taken Unknown] buspirone 5 mg PO BID 11/27/20 [History Last Taken Unknown] cholecalciferol (vitamin D3) [Vitamin D3] 50 mcg PO DAILY 11/27/20 [History Last Taken Unknown] duloxetine 60 mg PO QHS 11/27/20 [History Last Taken Unknown] ezetimibe 10 mg PO DAILY 11/27/20 [History Last Taken Unknown] ferrous sulfate 325 mg PO DAILY 11/27/20 [History Last Taken Unknown] fluticasone propionate 1 spray INTRANASAL DAILY PRN 11/27/20 [History Last Taken Unknown] furosemide 40 mg PO BID 11/27/20 [History Last Taken Unknown] hydroxyzine pamoate 25 mg PO Q6H PRN 11/27/20 [History Last Taken Unknown] insulin lispro See Protocol SUBCUT TID 11/27/20 [History Last Taken Unknown] leflunomide 10 mg PO DAILY 11/27/20 [History Last Taken Unknown] lisinopril 10 mg PO DAILY 11/27/20 [History Last Taken Unknown] loperamide 2 mg PO Q6H PRN 11/27/20 [History Last Taken Unknown] mecobalamin (vitamin B12) [B12 Active] 1,000 mcg PO DAILY 11/27/20 [History Last Taken Unknown] metformin 1,000 mg PO BID 11/27/20 [History Last Taken Unknown] metoprolol tartrate 25 mg PO BID 11/27/20 [History Last Taken Unknown] omega 4-mbw-vyq-fish oil [Fish Oil] 1 cap PO BID 11/27/20 [History Last Taken Unknown] pantoprazole 40 mg PO DAILY 11/27/20 [History Last Taken Unknown] pregabalin 200 mg PO TID 11/27/20 [History Last Taken Unknown] quetiapine 50 mg PO BID 11/27/20 [History Last Taken Unknown] sertraline 50 mg PO DAILY 11/27/20 [History Last Taken Unknown] tamsulosin 0.4 mg PO QHS 11/27/20 [History Last Taken Unknown] tizanidine 4 mg PO TID 11/27/20 [History Last Taken Unknown] insulin degludec [Tresiba FlexTouch U-100] 20 unit SUBCUT QHS 01/10/21 [History Last Taken Unknown] tramadol 50 mg PO BID PRN 01/10/21 [History Last Taken Unknown] Allergy/AdvReac Type Severity Reaction Status Date / Time No Known Allergies Allergy Verified 01/06/21 16:23 Family History (Updated 01/11/21 @ 01:[address] Kanwal Russo MD) Mother Diabetes Father Diabetes Hypertension Social History (Updated 01/11/21 @ 01:[address] Kanwal Russo MD) housing: assisted living facility Smoking Status: Light Smoker (<10/day) alcohol intake: never substance use type: does not use ROS ROS Narrative 10 out of 10 review of system was completed. ROS as per HPI, otherwise noncontributory Physical Exam Narrative General: Alert, oriented x3. Ill-appearing. HEENT: Normocephalic, atraumatic. Mucous membrane is dry. There is no mucosal erythema. PERRLA, EOMI. Hearing is intact. Neck: Supple, no JVD. Heart: Normal S1, S2. No rubs, murmurs or gallops. Lungs: Clear to auscultation bilaterally. Abdomen: Normal bowel sound, soft, tender to palpation diffusely. No guarding or rebound. Extremity: No clubbing or cyanosis. There is trace edema in the lower extremity bilaterally. Full passive range of motion. Skin: No rash. Skin is warm and dry. Neurologic: No focal neurologic deficits. Cranial nerves II through XII are grossly intact. Psychiatric: Affect is flat. Lab / Micro Data Result Diagrams: 01/11/21 06:16 01/11/21 06:16 Labs: Laboratory Results - last 24 hr 01/10/21 21:42: POC Glucose 55 L 01/10/21 21:47: WBC 8.1, RBC 4.23 L, Hgb 11.7 L, Hct 33.4 L, MCV 79.0 L, MCH 27.7, MCHC 35.0, RDW Std Deviation 46.6 H, RDW Coeff of Nathalie 16.2 H, Plt Count 255, MPV 11.1, Immature Gran % (Auto) 0.500, Neut % (Auto) 68.1, Lymph % (Auto) 22.6, [place] % (Auto) 7.7, Eos % (Auto) 0.6, Baso % (Auto) 0.5, Absolute Neuts (auto) 5.5, Absolute Lymphs (auto) 1.82, Nucleated RBC % 0 01/10/21 21:47: Sodium 136, Potassium 5.5 H, Chloride 99, Carbon Dioxide 23.0, Anion Gap 14, BUN 54 H, Creatinine 6.88 H, Estim Creat Clear Calc 12.27, Est GFR (MDRD) Af Amer 11 L, Est GFR (MDRD) Non-Af 9 L, BUN/Creatinine Ratio 7.8 L, Glucose 57 L, Calcium 9.1 01/10/21 21:47: Total Bilirubin 0.30, Direct Bilirubin 0.12, AST 9 L, ALT 16, Alkaline Phosphatase 156 H, Total Protein 8.6 H, Albumin 3.1 L, Globulin 5.5 H 01/10/21 21:47: Lipase 243 01/10/21 21:47: Magnesium 2.1 01/10/21 22:25: POC Glucose 149 H 01/11/21 02:08: POC Glucose 74 01/11/21 04:29: POC Glucose 197 H 01/11/21 06:16: WBC 8.5, RBC 4.36 L, Hgb 11.7 L, Hct 34.3 L, MCV 78.7 L, MCH 26.8 L, MCHC 34.1, RDW Std Deviation 45.4 H, RDW Coeff of Nathalie 15.9 H, Plt Count 235, MPV 10.7, Immature Gran % (Auto) 0.200, Neut % (Auto) 61.1, Lymph % (Auto) 29.8, [place] % (Auto) 7.2, Eos % (Auto) 1.3, Baso % (Auto) 0.4, Absolute Neuts (auto) 5.2, Absolute Lymphs (auto) 2.53, Nucleated RBC % 0 01/11/21 06:16: Sodium 134 L, Potassium 4.6, Chloride 98, Carbon Dioxide 20.0 L, Anion Gap 16 H, BUN 52 H, Creatinine 6.83 H, Estim Creat Clear Calc 12.36, Est GFR (MDRD) Af Amer 11 L, Est GFR (MDRD) Non-Af 9 L, BUN/Creatinine Ratio 7.6 L, Glucose 182 H, Calcium 8.5, Total Bilirubin 0.30, AST 10 L, ALT 13 L, Alkaline Phosphatase 134 H, Total Protein 7.0, Albumin 2.5 L, Globulin 4.5 H, Albumin/Globulin Ratio 0.6 L 01/11/21 06:25: POC Glucose 179 H 01/11/21 08:32: POC Glucose 128 H 01/11/21 08:50: Urine Color Yellow, Urine Clarity Sl. Cloudy, Urine pH 5.0, Ur Specific [place] 1.020, Urine Protein 30 H, Urine Glucose (UA) Normal, Urine Ketones Negative, Urine Occult Blood 10 H, Urine Nitrite Negative, Urine Bilirubin Negative, Urine Urobilinogen Normal, Ur Leukocyte Esterase 25 H, Urine RBC 0-5 SEEN, Urine WBC 0-5 SEEN, Ur Squamous Epith Cells 5-10 SEEN, Ur Transition Epith Cell 0-5 SEEN, Urine Bacteria RARE, Urine Mucus 0 SEEN 01/11/21 08:50: Ur Random Sodium 61, Urine Creatinine 79.00 01/11/21 12:14: POC Glucose 97 Micro: Microbiology 01/10/21 23:45 Nasal Secretion SARS-CoV-2 Antigen (Rapid) - Final Rhythm Strip Rhythm Strip: Sinus Rhythm Rate: 85 Ectopy: None Radiology Impression Gallbladder Ultrasound 01/10/21 22:17 IMPRESSION: Gallbladder sludge. Electronically Signed: Albino Archer MD at 23:29 EDT , Service support , Abdomen CT 01/11/21 08:46 IMPRESSION: 1. No acute abnormality. 2. No interval change. Individualized dose optimization techniques were used for this CT. at 1216 Reported and signed by: Naman Knight MD Electronically Signed: Naman Knight MD at 12:15 EDT Tel , Service support ,
[2021-01-11] MEDS: Dextrose 5%-Lactated Ringers 1,000 ML 150 ML IV (17:32)
[2021-01-11 17:40] LABS: Bedside Glucose 75 mg/dL (70-110)
[2021-01-11] MEDS: Atorvastatin Calcium 80 MG Tablet PO (22:14)
[2021-01-11] MEDS: Tamsulosin HCl 0.4 MG Capsule PO (22:14)
--- NOTE | 2021-01-11 22:26 | NURSING ---
pt is refusing second enema, states that he feels full and does not want the 2nd enema.
[2021-01-11 22:41] LABS: Bedside Glucose 166 mg/dL (70-110)
[2021-01-12] VITALS (9 sets, daily range): BP systolic 110–156; BP diastolic 74–92; PULSE 101–112; RESP 14–18; TEMP 36–36.6; O2SAT 96–99
[2021-01-12] MEDS: Dextrose 5%-Lactated Ringers 1,000 ML 150 ML IV ×3 (00:22→14:10)
[2021-01-12 06:05] LABS: Bedside Glucose 279 mg/dL (70-110)
[2021-01-12 07:24] LABS: Absolute Lymphocyte Count 1.38 X10^3/uL (0.83-4.51); Absolute Neutrophil Count 5.5 X10^3/uL (2.0-7.7); Basophil# 0.03 X10^3/uL; Basophil% 0.4 % (0-1); Eosinophil# 0.12 X10^3/uL; Eosinophils% 1.6 % (0-5); Hematocrit 38.2 % (40-54); Hemoglobin 13.2 g/dL (13.0-16.5); Lymphocyte # 1.38 X10^3/ul (0.83-4.51); Mean Corp Hgb Conc 34.6 g/dL (32-36); Mean Corpuscular Hgb 28.5 pg (27.0-32.0); Mean Corpuscular Volume 82.5 fL (80-94); Mean Platelet Vol. 9.8 fl (6.2-12.0); Monocyte# 0.63 X10^3/uL; Monocyte% 8.2 % (0-10); NRBC Flagged by Analyzer 0 % (0-5); Neutrophil # 5.48 X10^3/uL (2.7-7.7); Neutrophil % 71.5 % (47-70); Platelet Count 227 K/mm3 (150-450); RBC Distribution Width CV 19.9 % (11.6-14.6); RBC Distribution Width SD 53.7 fl (35.1-43.9); Red Blood Count 4.63 M/mm3 (4.6-6.2); White Blood Count 7.7 K/mm3 (4.4-11.0)
[2021-01-12 07:56] LABS: Anion Gap 9 (5-15); BUN 44 mg/dL (7-18); BUN/Creat Ratio 8.9 RATIO (10-20); CPK Total, Creatine Kinase 129 U/L (39-308); Calcium,Total 7.9 mg/dL (8.5-10.1); Chloride 96 mmol/L (98-107); Creatinine, Serum 4.92 mg/dL (0.70-1.30); EST Glomerular Filtration Rate 13 mL/min (>60); Est Glom Filt Rate - Afr Amer 16 mL/min (>60); Estimated Creatinine Clearance 17.16 ml/min; Glucose 232 mg/dL (74-106); Potassium 4.7 mmol/L (3.5-5.1); Sodium Level 130 mmol/L (136-145)
--- NOTE | 2021-01-12 08:13 | PCM.PN.SRG ---
Subjective Subjective Patient admits to abdominal pain being improved and not needing pain meds overnight. Patient is just afraid to take clears. Patient's pain is mid abdomen and right sided this morning. Objective Data Objective Data Vital Signs: Vital Signs Temp Pulse Resp BP Pulse Ox 96.8 F L 102 H 18 130/74 H 96 01/12/21 04:10 01/12/21 07:00 01/12/21 04:10 01/12/21 04:10 01/12/21 07:32 Oxygen Flow Rate (L/min) 2 Oxygen Delivery Method Nasal Cannula Weight: 290 lb 12.635 oz Body Mass Index (BMI) 42.3 Intake & Output: Intake and Output for Last 24 Hours 01/10/21 01/11/21 01/12/21 23:59 23:59 23:59 Intake Total 6284.58 / 6284.58 1262.5 / 1262.5 Output Total 1100 / 1100 2000 / 2000 Balance 5184.58 / 5184.58 -737.5 / -737.5 Lab / Micro Data Result Diagrams: 01/12/21 06:58 01/12/21 06:58 Labs: Laboratory Results - last 24 hr 01/11/21 08:32: POC Glucose 128 H 01/11/21 08:50: Urine Color Yellow, Urine Clarity Sl. Cloudy, Urine pH 5.0, Ur Specific [place] 1.020, Urine Protein 30 H, Urine Glucose (UA) Normal, Urine Ketones Negative, Urine Occult Blood 10 H, Urine Nitrite Negative, Urine Bilirubin Negative, Urine Urobilinogen Normal, Ur Leukocyte Esterase 25 H, Urine RBC 0-5 SEEN, Urine WBC 0-5 SEEN, Ur Squamous Epith Cells 5-10 SEEN, Ur Transition Epith Cell 0-5 SEEN, Urine Bacteria RARE, Urine Mucus 0 SEEN 01/11/21 08:50: Ur Random Sodium 61, Urine Creatinine 79.00 01/11/21 12:14: POC Glucose 97 01/11/21 16:59: POC Glucose 75 01/11/21 22:16: POC Glucose 166 H 01/12/21 06:00: POC Glucose 279 H 01/12/21 06:58: WBC 7.7, RBC 4.63, Hgb 13.2, Hct 38.2 L, MCV 82.5, MCH 28.5, MCHC 34.6, RDW Std Deviation 53.7 H, RDW Coeff of Nathalie 19.9 H, Plt Count 227, MPV 9.8, Immature Gran % (Auto) 0.300, Neut % (Auto) 71.5 H, Lymph % (Auto) 18.0 L, [place] % (Auto) 8.2, Eos % (Auto) 1.6, Baso % (Auto) 0.4, Absolute Neuts (auto) 5.5, Absolute Lymphs (auto) 1.38, Nucleated RBC % 0 01/12/21 06:58: Sodium 130 L, Potassium 4.7, Chloride 96 L, Carbon Dioxide 25.0, Anion Gap 9, BUN 44 H, Creatinine 4.92 H, Estim Creat Clear Calc 17.16, Est GFR (MDRD) Af Amer 16 L, Est GFR (MDRD) Non-Af 13 L, BUN/Creatinine Ratio 8.9 L, Glucose 232 H, Calcium 7.9 L, Total Creatine Kinase 129 Micro: Microbiology 01/10/21 23:45 Nasal Secretion SARS-CoV-2 Antigen (Rapid) - Final Radiography Diagnostic Testing: Radiology Impression Renal Ultrasound 01/11/21 08:42 IMPRESSION: Negative renal ultrasound. at 1656 Reported and signed by: Naman Knight MD Electronically Signed: Naman Knight MD at 16:55 EDT Tel , Service support , Abdomen CT 01/11/21 08:46 IMPRESSION: 1. No acute abnormality. 2. No interval change. Individualized dose optimization techniques were used for this CT. at 1216 Reported and signed by: Naman Knight MD Electronically Signed: Naman Knight MD at 12:15 EDT Tel , Service support , Rhythm Strip Rhythm Strip: Sinus Rhythm Rate: 85 Ectopy: None Assessment & Plan Assessment/Plan (1) Abdominal pain: QUALIFIERS: Abdominal location: right upper quadrant Qualified Code(s): R10.11 - Right upper quadrant pain (2) Gallbladder sludge: (3) ANDRE (acute kidney injury): PLAN: Patient's CAT scan from yesterday not showing inflammation around the gallbladder. Patient's pain is also in the right mid and periumbilical region. Unsure if this is related to his acute kidney injury as his abdominal pain is improving-patient did not need any pain meds overnight and his creatinine is 4.92 from 6.8 currently --would plan to get a HIDA scan just to confirm as his exam does change; however, unable to get HIDA scans over the weekend. Patient did admit that he is just afraid to take clears. We will continue to follow. [place] M.D. Pager: [phone] [facility] [address] [place] [address], [facility], [address] [place] [id number] Office: [phone] Charges/Coding Visit Charges Inpatient E&M: 11048 Subs Hosp L2
[2021-01-12] MEDS: Heparin Injection (Vial) 5,000 UNIT/ML VIAL 5000 UNIT SC ×2 (09:44→20:47)
[2021-01-12] MEDS: Ferrous Sulfate 325 MG Tablet PO (09:45)
[2021-01-12] MEDS: Cyanocobalamin 500 MCG Tablet 1000 MCG PO (09:45)
[2021-01-12 11:41] LABS: Bedside Glucose 419 mg/dL (70-110)
--- NOTE | 2021-01-12 11:41 | PCM.PN.HOSP ---
Documented by User: Laya Castro NP, MANAGER CONFIGURATION-C 01/12/21 11:50 Subjective Subjective Patient seen and examined. Denies significant abdominal pain. Denies nausea, vomiting. Requesting eggs for breakfast. Denies further bowel movement. Objective Data Objective Data Vital Signs: Vital Signs Temp Pulse Resp BP Pulse Ox 97.8 F 106 H 16 110/78 98 01/12/21 09:39 01/12/21 09:39 01/12/21 09:39 01/12/21 09:39 01/12/21 09:39 Oxygen Flow Rate (L/min) 2 Oxygen Delivery Method Room Air Weight: 290 lb 12.635 oz Body Mass Index (BMI) 42.3 Intake & Output: Intake and Output for Last 24 Hours 01/10/21 01/11/21 01/12/21 23:59 23:59 23:59 Intake Total 6284.58 / 6284.58 1372.5 / 1372.5 Output Total 1100 / 1100 3550 / 3550 Balance 5184.58 / 5184.58 -2177.5 / -2177.5 Lab / Micro Data Result Diagrams: 01/12/21 06:58 01/12/21 06:58 Labs: Laboratory Results - last 24 hr 01/11/21 12:14: POC Glucose 97 01/11/21 16:59: POC Glucose 75 01/11/21 22:16: POC Glucose 166 H 01/12/21 06:00: POC Glucose 279 H 01/12/21 06:58: WBC 7.7, RBC 4.63, Hgb 13.2, Hct 38.2 L, MCV 82.5, MCH 28.5, MCHC 34.6, RDW Std Deviation 53.7 H, RDW Coeff of Nathalie 19.9 H, Plt Count 227, MPV 9.8, Immature Gran % (Auto) 0.300, Neut % (Auto) 71.5 H, Lymph % (Auto) 18.0 L, [place] % (Auto) 8.2, Eos % (Auto) 1.6, Baso % (Auto) 0.4, Absolute Neuts (auto) 5.5, Absolute Lymphs (auto) 1.38, Nucleated RBC % 0 01/12/21 06:58: Sodium 130 L, Potassium 4.7, Chloride 96 L, Carbon Dioxide 25.0, Anion Gap 9, BUN 44 H, Creatinine 4.92 H, Estim Creat Clear Calc 17.16, Est GFR (MDRD) Af Amer 16 L, Est GFR (MDRD) Non-Af 13 L, BUN/Creatinine Ratio 8.9 L, Glucose 232 H, Calcium 7.9 L, Total Creatine Kinase 129 Micro: Microbiology 01/10/21 23:45 Nasal Secretion SARS-CoV-2 Antigen (Rapid) - Final Radiography Diagnostic Testing: Radiology Impression Renal Ultrasound 01/11/21 08:42 IMPRESSION: Negative renal ultrasound. at 1656 Reported and signed by: Naman Knight MD Electronically Signed: Naman Knight MD at 16:55 EDT Tel , Service support , Abdomen CT 01/11/21 08:46 IMPRESSION: 1. No acute abnormality. 2. No interval change. Individualized dose optimization techniques were used for this CT. at 1216 Reported and signed by: Naman Knight MD Electronically Signed: Naman Knight MD at 12:15 EDT Tel , Service support , Rhythm Strip Rhythm Strip: Sinus Rhythm Rate: 85 Ectopy: None Physical Exam Const alert, oriented x3 and no apparent distress Orientation / Consciousness: awake, oriented to person, oriented to place and oriented to time HEENT normocephalic and moist oral mucous membranes Eyes PERRL, EOMs intact bilaterally and conjunctivae normal Neck no lymphadenopathy Resp normal respiratory effort and clear to auscultation bilaterally Cardio regular rate, regular rhythm and no murmurs Peripheral Pulses: pulses 2+ throughout GI normal to inspection, nondistended, normoactive bowel sounds, non-tender and non-distended Extremity normal to inspection Skin no rashes or lesions noted Lesions: no lesions Rashes: no rashes Trauma: no lacerations or abrasions Neuro CN's II-XII intact bilaterally, no focal motor deficits, no sensory deficits noted and deep tendon reflexes 2+ bilaterally Psych mental status grossly normal and affect normal Assessment & Plan Assessment/Plan (1) ANDRE (acute kidney injury): (2) Abdominal pain: QUALIFIERS: Abdominal location: right upper quadrant Qualified Code(s): R10.11 - Right upper quadrant pain PLAN: 1. Intractable abdominal pain-CT of abdomen with no acute abnormality. Gallbladder ultrasound showed gallbladder sludge. Patient reports no bowel movement in 1 week. Aggressive bowel regimen initiated. If patient continues to have abdominal pain or develops nausea, vomiting, will order HIDA scan without CCK. Diet advanced, will assess if patient is able to tolerate. General surgery consulted. 2. Acute kidney injury with associated hyperkalemia on chronic kidney disease stage IIIa-chronic kidney disease stage IIIa based on prior MDRD GFR. IV fluids, trend BMP. Renal ultrasound normal. Nephrology consulted. Patient reports a history of difficulty urinating. On Flomax. Matthew in place. Creatinine improving. Suspect prerenal. HARITHA inhibitor and Lasix on hold. 3. Hypoglycemia-improved. Patient placed on dextrose/LR and glucose now elevated. We will begin sliding scale insulin for coverage. 4. Chronic bilateral lower extremity wounds-wound RN consult. Do not appear acutely infected. 5. Anxiety/depression/bipolar disorder-continue home medication regimen following improvement of ANDRE. 6. Hypertension-continue metoprolol. Hold HARITHA inhibitor. 7. Hyperlipidemia-continue statin. 8. Rheumatoid arthritis-on leflunomide. 9. Morbid obesity-encouraged diet and lifestyle modifications. 10. GERD-on PPI. 11. Tobacco dependence-encouraged cessation. DVT prophylaxis-Heparin subcu This patient was seen by MARIAN العلي under the supervision of Dr. Eastman. Documented by User: Dr. Nara Eastman MD 01/12/21 15:55 Objective Data Lab / Micro Data Result Diagrams: 01/12/21 06:58 01/12/21 06:58 Charges/Coding Addendum Addendum: Patient seen by Laya FONSECA under my supervision Patient seen and examined. He still complains of abdominal pain, and tells me it is in his right lower quadrant region. He denies any nausea, vomiting, fever or chills. Review of systems is otherwise negative. Const alert, oriented x3 and no apparent distress Orientation / Consciousness: awake, oriented to person, oriented to place and oriented to time HEENT normocephalic and moist oral mucous membranes Eyes PERRL, EOMs intact bilaterally and conjunctivae normal Neck no lymphadenopathy Resp normal respiratory effort and clear to auscultation bilaterally Cardio regular rate, regular rhythm and no murmurs Peripheral Pulses: pulses 2+ throughout GI normal to inspection, nondistended, normoactive bowel sounds, non-tender and non-distended Extremity normal to inspection Skin no rashes or lesions noted Skin Narrative: Chronic bilateral lower extremity wounds. Lesions: no lesions Rashes: no rashes Trauma: no lacerations or abrasions Neuro CN's II-XII intact bilaterally, no focal motor deficits, no sensory deficits noted and deep tendon reflexes 2+ bilaterally Psych mental status grossly normal and affect normal Creatinine has trended down to 4.9 today. Continue gentle hydration with IV fluids. He still complains of abdominal pain. Per discussion with general surgery, to order HIDA scan without CCK for tomorrow. Patient on clear liquids. CT of the abdomen and pelvis was negative for any renal pathology and renal ultrasound was also normal. Nephrology on board. Nephrotoxic meds on hold. Patient was noted to be a bit hypoglycemic today and his fluid was switched to D5 normal saline. Hypoglycemia is now resolved. Rest as per Laya FONSECA's note, which I have reviewed and endorsed. Visit Charges Inpatient E&M: 34628 Subs Hosp L3
[2021-01-12] MEDS: Insulin Lispro 100 UNIT/ML INSULN.PEN SC ×3 (12:12→16:57)
[2021-01-12] MEDS: oxyCODONE 5 MG Tablet PO (14:34)
--- NOTE | 2021-01-12 14:38 | PN.RENAL_ITS ---
Subjective Subjective Following for ANDRE. The patient still has nausea especially with meals. Appetite is still poor. There is no chest pain or shortness of breath. No edema. Objective Data Objective Data Vital Signs: Vital Signs Temp Pulse Resp BP Pulse Ox 97.8 F 106 H 16 110/78 98 01/12/21 09:39 01/12/21 09:39 01/12/21 09:39 01/12/21 09:39 01/12/21 09:39 Oxygen Flow Rate (L/min) 2 Oxygen Delivery Method Room Air Weight: 131.9 kg Body Mass Index (BMI) 42.3 Intake & Output: Intake and Output for Last 24 Hours 01/10/21 01/11/21 01/12/21 23:59 23:59 23:59 Intake Total 6284.58 / 6284.58 2372.5 / 2372.5 Output Total 1100 / 1100 3550 / 3550 Balance 5184.58 / 5184.58 -1177.5 / -1177.5 Lab / Micro Data Result Diagrams: 01/12/21 06:58 01/12/21 06:58 Labs: Laboratory Results - last 24 hr 01/11/21 16:59: POC Glucose 75 01/11/21 22:16: POC Glucose 166 H 01/12/21 06:00: POC Glucose 279 H 01/12/21 06:58: WBC 7.7, RBC 4.63, Hgb 13.2, Hct 38.2 L, MCV 82.5, MCH 28.5, MCHC 34.6, RDW Std Deviation 53.7 H, RDW Coeff of Nathalie 19.9 H, Plt Count 227, MPV 9.8, Immature Gran % (Auto) 0.300, Neut % (Auto) 71.5 H, Lymph % (Auto) 18.0 L, [place] % (Auto) 8.2, Eos % (Auto) 1.6, Baso % (Auto) 0.4, Absolute Neuts (auto) 5.5, Absolute Lymphs (auto) 1.38, Nucleated RBC % 0 01/12/21 06:58: Sodium 130 L, Potassium 4.7, Chloride 96 L, Carbon Dioxide 25.0, Anion Gap 9, BUN 44 H, Creatinine 4.92 H, Estim Creat Clear Calc 17.16, Est GFR (MDRD) Af Amer 16 L, Est GFR (MDRD) Non-Af 13 L, BUN/Creatinine Ratio 8.9 L, Glucose 232 H, Calcium 7.9 L, Total Creatine Kinase 129 01/12/21 11:37: POC Glucose 419 H Micro: Microbiology 01/10/21 23:45 Nasal Secretion SARS-CoV-2 Antigen (Rapid) - Final Radiography Diagnostic Testing: Radiology Impression Renal Ultrasound 01/11/21 08:42 IMPRESSION: Negative renal ultrasound. at 1656 Reported and signed by: Naman Knight MD Electronically Signed: Naman Knight MD at 16:55 EDT Tel , Service support , Rhythm Strip Rhythm Strip: Sinus Rhythm Rate: 85 Ectopy: None Physical Exam Narrative General: Alert, oriented x3. HEENT: Normocephalic, atraumatic. Mucous membrane is dry. There is no mucosal erythema. PERRLA, EOMI. Hearing is intact. Neck: Supple, no JVD. Heart: Normal S1, S2. No rubs, murmurs or gallops. Lungs: Clear to auscultation bilaterally. Abdomen: Normal bowel sound, soft, tender to palpation diffusely. No guarding or rebound. Extremity: No clubbing or cyanosis. There is trace edema in the lower extremity bilaterally. Assessment & Plan Assessment/Plan (1) ANDRE (acute kidney injury): PLAN: I suspect that ANDRE started off as prerenal azotemia from poor oral intake. He had also been on HARITHA inhibitor and furosemide. The patient was given these medications even with decreased oral intake prior to admission. The patient likely progressed to ischemic ATN from prolonged prerenal state. His urine indices are consistent with ATN. Since oral intake is still not consistent, I would continue IV fluid with LR tod ay. Agree with holding lisinopril and furosemide. So far, blood pressure has not been very high. If SBP is consistently above 140, we can start patient on amlodipine instead of lisinopril and furosemide. There is no need for kidney replacement therapy today. Continue to monitor renal function while we are hydrating the patient. The current medications are reviewed and are appropriately dosed for the patient's estimated creatinine clearance. (2) Hyperkalemia: PLAN: Potassium level was high at 5.5 mmol/L last night. Potassium is better today at 4.7 mmol/L. However, given ongoing acidosis, I have changed IV fluid to LR on 01/03/2021 to prevent hyperkalemia due to acidosis. (3) Metabolic acidosis: PLAN: Resolved. This was likely due to ANDRE. The patient denies diarrhea. As mentioned above, we will hydrate the patient with LR instead of saline which can exacerbate metabolic acidosis when given in high amount. (4) Abdominal pain: QUALIFIERS: Abdominal location: right upper quadrant Qualified Code(s): R10.11 - Right upper quadrant pain PLAN: Work-up for etiology of abdominal pain is underway. General surgery has also been consulted. He is scheduled for HIDA scan tomorrow.
[2021-01-12 16:26] LABS: Bedside Glucose 421 mg/dL (70-110)
[2021-01-12] MEDS: Atorvastatin Calcium 80 MG Tablet PO (20:47)
[2021-01-12] MEDS: Tamsulosin HCl 0.4 MG Capsule PO (20:47)
[2021-01-12 21:00] LABS: Bedside Glucose > 500 mg/dL (70-110)
--- NOTE | 2021-01-12 21:00 | PCM.HOSP.N ---
Hospitalist Note Patient on D5LR secondary to oral intake minimal and hypoglycemia; however, now for the past >12 hours BS continue to rise. Patient placed on high ISS. Will decrease the IVF to 75 cc/hr although low threshold to d/c and monitor BS. At this time will administer 20 u insulin and repeat BS in 1 hour.
[2021-01-12] MEDS: Insulin Lispro 100 UNIT/ML INSULN.PEN 20 UNIT SC (21:03)
[2021-01-12 22:10] LABS: Bedside Glucose 381 mg/dL (70-110)
[2021-01-12] MEDS: Dextrose 5%-Lactated Ringers 1,000 ML 75 ML IV (22:21)
[2021-01-12] MEDS: Insulin Lispro 100 UNIT/ML INSULN.PEN 10 UNIT SC (22:23)
[2021-01-13] VITALS (10 sets, daily range): BP systolic 115–156; BP diastolic 72–85; PULSE 109–118; RESP 16–18; TEMP 36.2–36.9; O2SAT 91–97
[2021-01-13 02:51] LABS: Bedside Glucose 205 mg/dL (70-110)
--- NOTE | 2021-01-13 05:55 | NM_ITS ---
CLINICAL: 55-year-old male with reported history of abdominal pain. RADIONUCLIDE HEPATOBILIARY SCINTIGRAPHY COMPARISON: Gallbladder ultrasound report 01/10/2021, CT of the abdomen-pelvis report 01/11/2021 FINDINGS: Following the intravenous administration of 5.3 mCi of 99m Tc Mebrofenin, hepatobiliary images reveal: 1. Relatively prompt and homogeneous radiopharmaceutical concentration is noted by a normal sized liver. No parenchymal defects are identified. 2. Gallbladder activity is identified at 60 minutes post radiopharmaceutical administration. 3. Small intestinal tract is observed at 30 minutes following tracer injection. 4. Washout of the radiopharmaceutical by the hepatic parenchyma appears qualitatively normal. 5. There is demonstrated duodenal-gastric reflux initiating at 30 minutes post radiotracer provision. NM/Hepatobilliary Imaging IMPRESSION: 1. Visualization of the gallbladder within 60 minutes post radiopharmaceutical administration excludes acute cholecystitis with 97% certitude. (Rossy et al, Nucl Med Tracy Jennifer Press pg. 35, 1980). 2. There is scintigraphic evidence of significant duodenal-gastric reflux as defined above. Electronically Signed: Tex Wilde DO at 11:18 EDT Tel , Service support ,
[2021-01-13 05:57] LABS: Anion Gap 8 (5-15); BUN 43 mg/dL (7-18); BUN/Creat Ratio 9.1 RATIO (10-20); Calcium,Total 8.4 mg/dL (8.5-10.1); Chloride 102 mmol/L (98-107); Creatinine, Serum 4.71 mg/dL (0.70-1.30); EST Glomerular Filtration Rate 14 mL/min (>60); Est Glom Filt Rate - Afr Amer 17 mL/min (>60); Estimated Creatinine Clearance 17.93 ml/min; Glucose 168 mg/dL (74-106); Potassium 3.7 mmol/L (3.5-5.1); Sodium Level 137 mmol/L (136-145)
[2021-01-13] MEDS: Insulin Lispro 100 UNIT/ML INSULN.PEN SC ×4 (06:12→20:28)
[2021-01-13 06:31] LABS: Bedside Glucose 170 mg/dL (70-110)
--- NOTE | 2021-01-13 08:09 | PCM.PN.SRG ---
Subjective Subjective Patient evaluated resting in bed. He denies abdominal pain this morning. He denies nausea, vomiting. Objective Data Objective Data Vital Signs: Vital Signs Temp Pulse Resp BP Pulse Ox 97.1 F L 109 H 18 115/74 97 01/13/21 02:30 01/13/21 07:00 01/13/21 02:30 01/13/21 02:30 01/13/21 02:30 Oxygen Flow Rate (L/min) 2 Oxygen Delivery Method Room Air Weight: 286 lb 6.087 oz Body Mass Index (BMI) 42.3 Intake & Output: Intake and Output for Last 24 Hours 01/11/21 01/12/21 01/13/21 23:59 23:59 23:59 Intake Total 6284.58 / 6284.58 3374.17 / 3394.17 Output Total 1100 / 1100 4750 / 6350 2049 / 2049 Balance 5184.58 / 5184.58 -1375.83 / -2955.83 -2030 / -2030 Lab / Micro Data Result Diagrams: 01/12/21 06:58 01/13/21 05:00 Labs: Laboratory Results - last 24 hr 01/12/21 11:37: POC Glucose 419 H 01/12/21 16:17: POC Glucose 421 H 01/12/21 20:49: POC Glucose > 500 H* 01/12/21 22:04: POC Glucose 381 H 01/13/21 02:23: POC Glucose 205 H 01/13/21 05:00: Sodium 137, Potassium 3.7, Chloride 102, Carbon Dioxide 27.0, Anion Gap 8, BUN 43 H, Creatinine 4.71 H, Estim Creat Clear Calc 17.93, Est GFR (MDRD) Af Amer 17 L, Est GFR (MDRD) Non-Af 14 L, BUN/Creatinine Ratio 9.1 L, Glucose 168 H, Calcium 8.4 L 01/13/21 06:12: POC Glucose 170 H Micro: Microbiology 01/10/21 23:45 Nasal Secretion SARS-CoV-2 Antigen (Rapid) - Final Rhythm Strip Rhythm Strip: Sinus Rhythm Rate: 85 Ectopy: None Physical Exam GI soft to palpation and non-tender Assessment & Plan Assessment/Plan (1) RUQ abdominal pain: PLAN: I am following this patient in conjunction with Dr. House. Plan for HIDA scan today. Patient was having no abdominal pain this morning when evaluated. We will continue to monitor this patient. Charges/Coding Visit Charges Inpatient E&M: 36332 Subs Hosp L1
[2021-01-13] MEDS: oxyCODONE 5 MG Tablet PO ×2 (11:05→20:27)
[2021-01-13] MEDS: Heparin Injection (Vial) 5,000 UNIT/ML VIAL 5000 UNIT SC ×2 (11:06→20:27)
[2021-01-13] MEDS: Ferrous Sulfate 325 MG Tablet PO (11:06)
[2021-01-13] MEDS: Cyanocobalamin 500 MCG Tablet 1000 MCG PO (11:06)
[2021-01-13] MEDS: 0.9% Saline Lock 10 ML Syringe IV (11:09)
[2021-01-13 11:20] LABS: Bedside Glucose 193 mg/dL (70-110)
--- NOTE | 2021-01-13 11:43 | PCM.PN.HOSP ---
Documented by User: Laya Castro NP, CLAIMS SERVICE REPRESENTATIVE-C 01/13/21 12:06 Subjective Subjective Patient seen and examined. Continues to complain of nonspecific abdominal pain. Denies nausea, vomiting. Underwent HIDA scan which was negative for cholecystitis. Objective Data Objective Data Vital Signs: Vital Signs Temp Pulse Resp BP Pulse Ox 97.7 F L 111 H 18 116/72 96 01/13/21 08:30 01/13/21 08:30 01/13/21 08:30 01/13/21 08:30 01/13/21 08:30 Oxygen Flow Rate (L/min) 2 Oxygen Delivery Method Room Air Weight: 286 lb 6.087 oz Body Mass Index (BMI) 42.3 Intake & Output: Intake and Output for Last 24 Hours 01/11/21 01/12/21 01/13/21 23:59 23:59 23:59 Intake Total 6284.58 / 6284.58 3374.17 / 3394.17 996.25 / 996.25 Output Total 1100 / 1100 4750 / 6350 2900 / 2900 Balance 5184.58 / 5184.58 -1375.83 / -2955.83 -1903.75 / -1903.75 Lab / Micro Data Result Diagrams: 01/12/21 06:58 01/13/21 05:00 Labs: Laboratory Results - last 24 hr 01/12/21 16:17: POC Glucose 421 H 01/12/21 20:49: POC Glucose > 500 H* 01/12/21 22:04: POC Glucose 381 H 01/13/21 02:23: POC Glucose 205 H 01/13/21 05:00: Sodium 137, Potassium 3.7, Chloride 102, Carbon Dioxide 27.0, Anion Gap 8, BUN 43 H, Creatinine 4.71 H, Estim Creat Clear Calc 17.93, Est GFR (MDRD) Af Amer 17 L, Est GFR (MDRD) Non-Af 14 L, BUN/Creatinine Ratio 9.1 L, Glucose 168 H, Calcium 8.4 L 01/13/21 06:12: POC Glucose 170 H 01/13/21 11:13: POC Glucose 193 H Micro: Microbiology 01/10/21 23:45 Nasal Secretion SARS-CoV-2 Antigen (Rapid) - Final Radiography Diagnostic Testing: Radiology Impression Hepatobiliary Scan Nuclear Medicine 01/13/21 05:55 IMPRESSION: 1. Visualization of the gallbladder within 60 minutes post radiopharmaceutical administration excludes acute cholecystitis with 97% certitude. (Rossy et al, Nucl Med [employer] Jennifer Press pg. 35, 1980). 2. There is scintigraphic evidence of significant duodenal-gastric reflux as defined above. Electronically Signed: Tex Wilde, DO at 11:18 EDT Tel , Service support , Rhythm Strip Rhythm Strip: Sinus Rhythm Rate: 85 Ectopy: None Physical Exam Const alert, oriented x3 and no apparent distress Orientation / Consciousness: awake, oriented to person, oriented to place and oriented to time HEENT normocephalic and moist oral mucous membranes Eyes PERRL, EOMs intact bilaterally and conjunctivae normal Neck no lymphadenopathy Resp normal respiratory effort and clear to auscultation bilaterally Cardio regular rate, regular rhythm and no murmurs Peripheral Pulses: pulses 2+ throughout GI normal to inspection, nondistended, normoactive bowel sounds, non-tender and non-distended Extremity normal to inspection Skin no rashes or lesions noted Lesions: no lesions Rashes: no rashes Trauma: no lacerations or abrasions Neuro CN's II-XII intact bilaterally, no focal motor deficits, no sensory deficits noted and deep tendon reflexes 2+ bilaterally Psych mental status grossly normal and affect normal Assessment & Plan Assessment/Plan (1) ANDRE (acute kidney injury): PLAN: 1. Abdominal pain related to duodenal gastric reflux, constipation-General surgery following. Cholecystitis ruled out. CT of abdomen with no acute abnormality. Gallbladder ultrasound showed gallbladder sludge. Continue bowel regimen. Initiated on PPI, Carafate. HIDA scan excludes cholecystitis, significant for duodenal gastric reflux. 2. Acute kidney injury with associated hyperkalemia on chronic kidney disease stage IIIa-chronic kidney disease stage IIIa based on prior MDRD GFR. IV fluids, trend BMP. Renal ultrasound normal. Nephrology consulted. Patient reports a history of difficulty urinating. On Flomax. Matthew in place. Creatinine improving. Suspect prerenal. HARITHA inhibitor and Lasix on hold. Hyperkalemia resolved. 3. Hypoglycemia in the setting of type 2 diabetes mellitus-improved. Patient placed on dextrose/LR and glucose now elevated. Patient is now cleared for diet, will discontinue dextrose and transition to normal saline, resume home long-acting insulin regimen and high-dose sliding scale. 4. Chronic bilateral lower extremity wounds-wound RN consult. Do not appear acutely infected. 5. Anxiety/depression/bipolar disorder-resume amitriptyline, BuSpar, Seroquel, sertraline, renally reduced dose of bupropion. Continue to hold duloxetine due to contraindicated given current renal function. 6. Hypertension-continue metoprolol. Hold HARITHA inhibitor. 7. Hyperlipidemia-continue statin. 8. Rheumatoid arthritis-on leflunomide. 9. Morbid obesity-encouraged diet and lifestyle modifications. 10. GERD-on PPI. 11. Tobacco dependence-encouraged cessation. DVT prophylaxis-Heparin subcu Discharge plan: Return to assisted living pending improvement in renal function. This patient was seen by MARIAN العلي under the supervision of Dr. Eastman. Documented by User: Dr. Nara Eastman MD 01/13/21 17:01 Objective Data Lab / Micro Data Result Diagrams: 01/12/21 06:58 01/13/21 05:00 Charges/Coding Addendum Addendum: Patient seen by Laya FONSECA under my supervision Patient seen and examined. His abdominal pain seems to have improved. He is due for a HIDA scan today. He denies any chest pain, palpitations, nausea or vomiting. Review of systems was otherwise negative. Const alert, oriented x3 and no apparent distress Orientation / Consciousness: awake, oriented to person, oriented to place and oriented to time HEENT normocephalic and moist oral mucous membranes Eyes PERRL, EOMs intact bilaterally and conjunctivae normal Neck no lymphadenopathy Resp normal respiratory effort and clear to auscultation bilaterally Cardio regular rate, regular rhythm and no murmurs Peripheral Pulses: pulses 2+ throughout GI normal to inspection, nondistended, normoactive bowel sounds, non-tender and non-distended Extremity normal to inspection Skin no rashes or lesions noted Skin Narrative: Chronic bilateral lower extremity wounds. Lesions: no lesions Rashes: no rashes Trauma: no lacerations or abrasions Neuro CN's II-XII intact bilaterally, no focal motor deficits, no sensory deficits noted and deep tendon reflexes 2+ bilaterally Psych mental status grossly normal and affect normal Creatinine has trended down to 4.71 today. Continue very gentle hydration with IV fluids. He is for HIDA scan without CCK. Nephrology on board; nephrotoxic meds on hold. Nephrology and general surgery on board. Rest as per Laya Castro CLAIMS SERVICE REPRESENTATIVE-C's note, which I have reviewed and endorsed. Visit Charges Inpatient E&M: 93102 Subs Hosp L2
[2021-01-13] MEDS: 0.9% Normal Saline 1,000 ML 125 ML IV ×2 (12:00→20:05)
--- NOTE | 2021-01-13 12:07 | CASEMGMT ---
Addendum entered by Rianna Negrete 01/13/21 12:11: ANGE left a voice mail at [facility] requesting a return call. Rianna DAY Original Note: Patient is from [facility]. ANGE faxed updates to [facility]. ANGE will also call and confirm he is fine to return to [place]. Rianna DAY
--- NOTE | 2021-01-13 14:09 | CHAPLAIN ---
Type of Pastoral Visit _x__ Initial Visit ___ Follow-up Visit ___ On-call Visit ___ General Patient Visit ___ Spiritual Assessment ___ Family Conference ___ Bereavement ___ Rapid Response ___ Code Blue ___ Other (describe below) Pastoral Care Referral From _x__ Patient ___ Family ___ Nurse ___ Physician ___ Wringer And Setter ___ Gas Turbine Powerplant Mechanic ___ Other (describe below) Sacrament/Intervention _x__ Active listening ___ Anointing ___ Yarsani ___ Bereavement ___ Communion _x__ Faby exploration ___ _x__ Life review _x__ Prayer ___ Reconciliation ___ Sacrament of Sick _x__ Supportive presence ___ Wedding ___ Other (describe below) Pastoral Comments patient describes his health issues and asks questions about spiritual matters; time to listen, comfort, and prayer is given for patient needs.
[2021-01-13] MEDS: Sucralfate 1 GM Tablet PO ×2 (16:06→20:27)
[2021-01-13 16:10] LABS: Bedside Glucose 401 mg/dL (70-110)
[2021-01-13] MEDS: buPROPion 75 MG Tablet PO (20:27)
[2021-01-13] MEDS: Amitriptyline 25 MG Tablet 75 MG PO (20:27)
[2021-01-13] MEDS: Tamsulosin HCl 0.4 MG Capsule PO (20:27)
[2021-01-13] MEDS: busPIRone 5 MG Tablet PO (20:27)
[2021-01-13] MEDS: Atorvastatin Calcium 80 MG Tablet PO (20:27)
[2021-01-13 20:41] LABS: Bedside Glucose 373 mg/dL (70-110)
[2021-01-13] MEDS: Acetaminophen 325 MG Tablet 650 MG PO (22:40)
[2021-01-13] MEDS: Mag Hydrox/Al Hydrox/Simeth 30 ML UDC PO (22:41)
--- NOTE | 2021-01-13 23:42 | NURSING ---
PT requested evening medications early when this RN was rounding.
[2021-01-14] VITALS (10 sets, daily range): BP systolic 132–159; BP diastolic 76–96; PULSE 94–116; RESP 16–17; TEMP 36.4–36.8; O2SAT 93–99
[2021-01-14] MEDS: 0.9% Normal Saline 1,000 ML 125 ML IV ×2 (04:05→13:31)
[2021-01-14] MEDS: Sucralfate 1 GM Tablet PO ×4 (06:35→22:04)
[2021-01-14] MEDS: Insulin Lispro 100 UNIT/ML INSULN.PEN SC ×4 (06:40→22:08)
[2021-01-14 06:51] LABS: Bedside Glucose 288 mg/dL (70-110)
[2021-01-14 08:15] LABS: Anion Gap 5 (5-15); BUN 29 mg/dL (7-18); Calcium,Total 7.8 mg/dL (8.5-10.1); Chloride 106 mmol/L (98-107); Creatinine, Serum 3.21 mg/dL (0.70-1.30); EST Glomerular Filtration Rate 22 mL/min (>60); Est Glom Filt Rate - Afr Amer 26 mL/min (>60); Estimated Creatinine Clearance 26.31 ml/min; Glucose 285 mg/dL (74-106); Potassium 4.1 mmol/L (3.5-5.1); Sodium Level 139 mmol/L (136-145)
--- NOTE | 2021-01-14 08:55 | PCM.PN.SRG ---
Subjective Subjective Patient denied issues with clears yesterday however after having dinner patient states he had abdominal pain only. Patient's pain is epigastric and left upper quadrant this morning. Patient's HIDA did show normal ejection fraction of 97% however he did show bile reflux into the stomach as well. Patient was started on Carafate along with Protonix. Objective Data Objective Data Vital Signs: Vital Signs Temp Pulse Resp BP Pulse Ox 97.8 F 108 H 16 142/80 H 96 01/14/21 06:45 01/14/21 07:00 01/14/21 06:45 01/14/21 06:45 01/14/21 07:10 Oxygen Flow Rate (L/min) 2 Oxygen Delivery Method Room Air Weight: 287 lb 11.252 oz Body Mass Index (BMI) 42.3 Intake & Output: Intake and Output for Last 24 Hours 01/12/21 01/13/21 01/14/21 23:59 23:59 23:59 Intake Total 3374.17 / 3394.17 2743.75 / 2863.75 1240 / 1240 Output Total 4750 / 6350 3850 / 4700 1300 / 1300 Balance -1375.83 / -2955.83 -1106.25 / -1836.25 -60 / -60 Lab / Micro Data Result Diagrams: 01/12/21 06:58 01/14/21 06:35 Labs: Laboratory Results - last 24 hr 01/13/21 11:13: POC Glucose 193 H 01/13/21 16:05: POC Glucose 401 H 01/13/21 20:25: POC Glucose 373 H 01/14/21 06:35: Sodium 139, Potassium 4.1, Chloride 106, Carbon Dioxide 28.0, Anion Gap 5, BUN 29 H, Creatinine 3.21 H, Estim Creat Clear Calc 26.31, Est GFR (MDRD) Af Amer 26 L, Est GFR (MDRD) Non-Af 22 L, BUN/Creatinine Ratio 9.0 L, Glucose 285 H, Calcium 7.8 L 01/14/21 06:39: POC Glucose 288 H Micro: Microbiology 01/10/21 23:45 Nasal Secretion SARS-CoV-2 Antigen (Rapid) - Final Radiography Diagnostic Testing: Radiology Impression Hepatobiliary Scan Nuclear Medicine 01/13/21 05:55 IMPRESSION: 1. Visualization of the gallbladder within 60 minutes post radiopharmaceutical administration excludes acute cholecystitis with 97% certitude. (Rossy et al, Nucl Med Tracy Jennifer Press pg. 35, 1980). 2. There is scintigraphic evidence of significant duodenal-gastric reflux as defined above. Electronically Signed: Tex Wilde, at 11:18 EDT Tel , Service support , Rhythm Strip Rhythm Strip: Sinus Rhythm Rate: 85 Ectopy: None Physical Exam Narrative Abdomen: Soft, nondistended, tender palpation epigastric and left upper quadrant. No peritoneal signs Assessment & Plan Assessment/Plan (1) Abdominal pain: QUALIFIERS: Abdominal location: right upper quadrant Qualified Code(s): R10.11 - Right upper quadrant pain (2) Gallbladder sludge: (3) ANDRE (acute kidney injury): PLAN: Patient decided to have good ejection fraction no evidence of acute cholecystitis or biliary dyskinesia. Patient's HIDA did show bile reflux into the stomach. Patient is currently on Carafate and Protonix. Discussed with patient to try a activity leader meal today to give the stomach more time to heal with the medication. [facility] M.D. Pager: [phone] [facility] [address] [place] [address], [address] [place] [address] Office: [phone] Charges/Coding Visit Charges Inpatient E&M: 84081 Subs Hosp L2
[2021-01-14] MEDS: Sertraline 50 MG Tablet PO (09:01)
[2021-01-14] MEDS: Cyanocobalamin 500 MCG Tablet 1000 MCG PO (09:01)
[2021-01-14] MEDS: busPIRone 5 MG Tablet PO ×2 (09:01→22:04)
[2021-01-14] MEDS: Heparin Injection (Vial) 5,000 UNIT/ML VIAL 5000 UNIT SC ×2 (09:01→22:05)
[2021-01-14] MEDS: buPROPion 75 MG Tablet PO ×2 (09:01→22:04)
[2021-01-14] MEDS: Ferrous Sulfate 325 MG Tablet PO (09:01)
--- NOTE | 2021-01-14 09:16 | CASEMGMT ---
Pt has [facility] CM, Maria Teresa Henriquez, and contact info is [phone]. Jennifer CHEN CM
[2021-01-14 11:20] LABS: Bedside Glucose 214 mg/dL (70-110)
--- NOTE | 2021-01-14 12:45 | PCM.PN.HOSP ---
Documented by User: Laya Castro NP, [employer] 01/14/21 12:51 Subjective Subjective Patient seen and examined. Denies further abdominal pain this morning. Denies nausea, vomiting. States he had a large meal last night and developed epigastric discomfort following his meal. He states he did not eat breakfast this morning however is now feeling hungry. Denies other symptoms or complaints. Objective Data Objective Data Vital Signs: Vital Signs Temp Pulse Resp BP Pulse Ox 97.5 F L 108 H 16 145/96 H 99 01/14/21 11:09 01/14/21 11:09 01/14/21 11:09 01/14/21 11:09 01/14/21 11:09 Oxygen Flow Rate (L/min) 2 Oxygen Delivery Method Room Air Weight: 287 lb 11.252 oz Body Mass Index (BMI) 42.3 Intake & Output: Intake and Output for Last 24 Hours 01/12/21 01/13/21 01/14/21 23:59 23:59 23:59 Intake Total 3374.17 / 3394.17 2743.75 / 2863.75 2206.67 / 2206.67 Output Total 4750 / 6350 3850 / 4700 1999 Balance -1375.83 / -2955.83 -1106.25 / -1836.25 206.67 / 206.67 Lab / Micro Data Result Diagrams: 01/12/21 06:58 01/15/21 05:16 Labs: Laboratory Results - last 24 hr 01/13/21 16:05: POC Glucose 401 H 01/13/21 20:25: POC Glucose 373 H 01/14/21 06:35: Sodium 139, Potassium 4.1, Chloride 106, Carbon Dioxide 28.0, Anion Gap 5, BUN 29 H, Creatinine 3.21 H, Estim Creat Clear Calc 26.31, Est GFR (MDRD) Af Amer 26 L, Est GFR (MDRD) Non-Af 22 L, BUN/Creatinine Ratio 9.0 L, Glucose 285 H, Calcium 7.8 L 01/14/21 06:39: POC Glucose 288 H 01/14/21 11:05: POC Glucose 214 H Micro: Microbiology 01/10/21 23:45 Nasal Secretion SARS-CoV-2 Antigen (Rapid) - Final Rhythm Strip Rhythm Strip: Sinus Rhythm Rate: 85 Ectopy: None Physical Exam Const alert, oriented x3 and no apparent distress Orientation / Consciousness: awake, oriented to person, oriented to place and oriented to time HEENT normocephalic and moist oral mucous membranes Eyes PERRL, EOMs intact bilaterally and conjunctivae normal Neck no lymphadenopathy Resp normal respiratory effort and clear to auscultation bilaterally Cardio regular rate, regular rhythm and no murmurs Peripheral Pulses: pulses 2+ throughout GI normal to inspection, nondistended, normoactive bowel sounds, non-tender and non-distended Extremity normal to inspection Skin no rashes or lesions noted Lesions: no lesions Rashes: no rashes Trauma: no lacerations or abrasions Neuro CN's II-XII intact bilaterally, no focal motor deficits, no sensory deficits noted and deep tendon reflexes 2+ bilaterally Psych mental status grossly normal and affect normal Assessment & Plan Assessment/Plan (1) ANDRE (acute kidney injury): PLAN: 1. Abdominal pain related to duodenal gastric reflux, constipation-General surgery following. Cholecystitis ruled out. CT of abdomen with no acute abnormality. Gallbladder ultrasound showed gallbladder sludge. Continue bowel regimen. Initiated on PPI, Carafate. HIDA scan excludes cholecystitis, significant for duodenal gastric reflux. 2. Acute kidney injury with associated hyperkalemia on chronic kidney disease stage IIIa-chronic kidney disease stage IIIa based on prior MDRD GFR. IV fluids, trend BMP. Renal ultrasound normal. Nephrology consulted. Patient reports a history of difficulty urinating. On Flomax. Matthew in place. Creatinine slowly improving. Suspect prerenal. HARITHA inhibitor and Lasix on hold. Hyperkalemia resolved. 3. Type 2 diabetes mellitus-continue home long-acting insulin regimen and high-dose sliding scale. Initially hypoglycemic however blood pressure is now significantly elevated. Insulin regimen adjusted. 4. Chronic bilateral lower extremity wounds-wound RN consult. Do not appear acutely infected. 5. Anxiety/depression/bipolar disorder-resume amitriptyline, BuSpar, Seroquel, sertraline, renally reduced dose of bupropion. Continue to hold duloxetine due to contraindicated given current renal function. 6. Hypertension-continue metoprolol. Hold HARITHA inhibitor. 7. Hyperlipidemia-continue statin. 8. Rheumatoid arthritis-on leflunomide. 9. Morbid obesity-encouraged diet and lifestyle modifications. 10. GERD-on PPI. 11. Tobacco dependence-encouraged cessation. DVT prophylaxis-Heparin subcu Discharge plan: Return to assisted living pending improvement in renal function. This patient was seen by MARIAN العلي under the supervision of Dr. Robertson. Documented by User: Dr. Shahab Robertson MD 01/15/21 13:22 Objective Data Lab / Micro Data Result Diagrams: 01/12/21 06:58 01/15/21 05:16 Charges/Coding Addendum Addendum: Dr. Robertson: I personally reviewed the chart and examined the patient, and agree with the above findings. 55-year-old male presented from assisted living with right upper quadrant epigastric pain. He was also found to have a severe renal failure with a creatinine of 6.88 on admission. He is also been having poor oral intake though this has been improving throughout his stay. He has been evaluated by general surgery who could not find a surgical reason for him to be having any abdominal pain. Appreciate nephrology's assistance. We will continue to monitor renal function and once significantly improved can plan for discharge back to the assisted living. Visit Charges Inpatient E&M: 33224 Subs Hosp L2
--- NOTE | 2021-01-14 14:23 | PCM.PN.REN ---
Subjective Subjective no nausea No vomiting No SOB Had lunch today Objective Data Objective Data Vital Signs: Vital Signs Temp Pulse Resp BP Pulse Ox 97.5 F L 108 H 16 145/96 H 99 01/14/21 11:09 01/14/21 11:09 01/14/21 11:09 01/14/21 11:09 01/14/21 11:09 Oxygen Flow Rate (L/min) 2 Oxygen Delivery Method Room Air Weight: 130.5 kg Body Mass Index (BMI) 42.3 Intake & Output: Intake and Output for Last 24 Hours 01/12/21 01/13/21 01/14/21 23:59 23:59 23:59 Intake Total 3374.17 / 3394.17 2743.75 / 2863.75 2590.00 / 2590.00 Output Total 4750 / 6350 3850 / 4700 1999 / 1999 Balance -1375.83 / -2955.83 -1106.25 / -1836.25 590.00 / 590.00 Lab / Micro Data Result Diagrams: 01/12/21 06:58 01/14/21 06:35 Labs: Laboratory Results - last 24 hr 01/13/21 16:05: POC Glucose 401 H 01/13/21 20:25: POC Glucose 373 H 01/14/21 06:35: Sodium 139, Potassium 4.1, Chloride 106, Carbon Dioxide 28.0, Anion Gap 5, BUN 29 H, Creatinine 3.21 H, Estim Creat Clear Calc 26.31, Est GFR (MDRD) Af Amer 26 L, Est GFR (MDRD) Non-Af 22 L, BUN/Creatinine Ratio 9.0 L, Glucose 285 H, Calcium 7.8 L 01/14/21 06:39: POC Glucose 288 H 01/14/21 11:05: POC Glucose 214 H Micro: Microbiology 01/10/21 23:45 Nasal Secretion SARS-CoV-2 Antigen (Rapid) - Final Rhythm Strip Rhythm Strip: Sinus Rhythm Rate: 85 Ectopy: None Physical Exam Narrative General: Alert, oriented x3. HEENT: Normocephalic, atraumatic. Mucous membrane is dry. There is no mucosal erythema. PERRLA, EOMI. Hearing is intact. Neck: Supple, no JVD. Heart: Normal S1, S2. No rubs, murmurs or gallops. Lungs: Clear to auscultation bilaterally. Abdomen: Normal bowel sound, soft, tender to palpation diffusely. No guarding or rebound. Extremity: No clubbing or cyanosis. There is trace edema in the lower extremity bilaterally. Assessment & Plan Assessment/Plan (1) ANDRE (acute kidney injury): PLAN: I suspect that ANDRE started from azotemia from poor oral intake. He had also been on HARITHA inhibitor and furosemide. Cr is improving with IVF Continue IVF Continue holding ACEI nad lasix might ad norvasc with worse BP check RFP in am (2) Hyperkalemia: PLAN: Potassium level was high at 5.5 mmol/L last night. Potassium is better today at 4.7 mmol/L. However, given ongoing acidosis, I have changed IV fluid to LR on 01/03/2021 to prevent hyperkalemia due to acidosis. (3) Metabolic acidosis: PLAN: Resolved. This was likely due to ANDRE. . (4) Abdominal pain: QUALIFIERS: Abdominal location: right upper quadrant Qualified Code(s): R10.11 - Right upper quadrant pain PLAN: as per the primary service
--- NOTE | 2021-01-14 15:49 | CASEMGMT ---
SW completed Healthcare Power of Cardiac Monitor and Healthcare Living Will with patient. Copies were made and given to patient along with originals. Rianna DAY
[2021-01-14 16:16] LABS: Bedside Glucose 323 mg/dL (70-110)
[2021-01-14] MEDS: Acetaminophen 325 MG Tablet 650 MG PO (20:08)
[2021-01-14] MEDS: oxyCODONE 5 MG Tablet PO (20:08)
[2021-01-14] MEDS: Atorvastatin Calcium 80 MG Tablet PO (22:03)
[2021-01-14] MEDS: Tamsulosin HCl 0.4 MG Capsule PO (22:04)
[2021-01-14] MEDS: Amitriptyline 25 MG Tablet 75 MG PO (22:04)
[2021-01-14] MEDS: MELATONIN 3 MG TABLET PO (22:04)
[2021-01-14 22:16] LABS: Bedside Glucose 319 mg/dL (70-110)
[2021-01-14] MEDS: 0.9% Normal Saline 1,000 ML 100 ML IV (22:17)
[2021-01-15] VITALS (9 sets, daily range): BP systolic 133–172; BP diastolic 66–90; PULSE 91–110; RESP 15–18; TEMP 36.5–37.1; O2SAT 96–99
[2021-01-15 05:46] LABS: Anion Gap 5 (5-15); BUN 21 mg/dL (7-18); BUN/Creat Ratio 9.3 RATIO (10-20); Calcium,Total 7.6 mg/dL (8.5-10.1); Chloride 111 mmol/L (98-107); Creatinine, Serum 2.26 mg/dL (0.70-1.30); EST Glomerular Filtration Rate 32 mL/min (>60); Est Glom Filt Rate - Afr Amer 39 mL/min (>60); Estimated Creatinine Clearance 37.37 ml/min; Glucose 361 mg/dL (74-106); Potassium 4.5 mmol/L (3.5-5.1); Sodium Level 140 mmol/L (136-145)
[2021-01-15] MEDS: Insulin Lispro 100 UNIT/ML INSULN.PEN SC ×3 (06:43→16:16)
[2021-01-15 06:56] LABS: Bedside Glucose 348 mg/dL (70-110)
[2021-01-15] MEDS: Sertraline 50 MG Tablet PO (08:00)
[2021-01-15] MEDS: Cyanocobalamin 500 MCG Tablet 1000 MCG PO (08:00)
[2021-01-15] MEDS: Ferrous Sulfate 325 MG Tablet PO (08:00)
[2021-01-15] MEDS: Sucralfate 1 GM Tablet PO ×2 (08:00→16:08)
[2021-01-15] MEDS: busPIRone 5 MG Tablet PO (08:00)
[2021-01-15] MEDS: Heparin Injection (Vial) 5,000 UNIT/ML VIAL 5000 UNIT SC (08:00)
[2021-01-15] MEDS: buPROPion 75 MG Tablet PO (08:00)
[2021-01-15] MEDS: 0.9% Normal Saline 1,000 ML 100 ML IV (08:07)
[2021-01-15 11:31] LABS: Bedside Glucose 251 mg/dL (70-110)
--- NOTE | 2021-01-15 12:25 | PCM.PN.REN ---
Subjective Subjective no new events Objective Data Objective Data Vital Signs: Vital Signs Temp Pulse Resp BP Pulse Ox 97.9 F 103 H 15 133/83 H 99 01/15/21 08:21 01/15/21 08:21 01/15/21 08:21 01/15/21 08:21 01/15/21 08:21 Oxygen Flow Rate (L/min) 2 Oxygen Delivery Method Room Air Weight: 131.5 kg Body Mass Index (BMI) 42.3 Intake & Output: Intake and Output for Last 24 Hours 01/13/21 01/14/21 01/15/21 23:59 23:59 23:59 Intake Total 2743.75 / 2863.75 4181.25 / 4301.25 1283.33 / 1283.33 Output Total 3850 / 4700 2750 / 3550 1800 / 1800 Balance -1106.25 / -1836.25 1431.25 / 751.25 -516.67 / -516.67 Lab / Micro Data Result Diagrams: 01/12/21 06:58 01/15/21 05:16 Labs: Laboratory Results - last 24 hr 01/14/21 16:10: POC Glucose 323 H 01/14/21 21:56: POC Glucose 319 H 01/15/21 05:16: Sodium 140, Potassium 4.5, Chloride 111 H, Carbon Dioxide 24.0, Anion Gap 5, BUN 21 H, Creatinine 2.26 H, Estim Creat Clear Calc 37.37, Est GFR (MDRD) Af Amer 39 L, Est GFR (MDRD) Non-Af 32 L, BUN/Creatinine Ratio 9.3 L, Glucose 361 H, Calcium 7.6 L 01/15/21 06:42: POC Glucose 348 H 01/15/21 11:28: POC Glucose 251 H Micro: Microbiology 01/10/21 23:45 Nasal Secretion SARS-CoV-2 Antigen (Rapid) - Final Rhythm Strip Rhythm Strip: Sinus Rhythm Rate: 85 Ectopy: None Physical Exam Narrative General: Alert, oriented x3. HEENT: Normocephalic, atraumatic. Mucous membrane is dry. There is no mucosal erythema. PERRLA, EOMI. Hearing is intact. Neck: Supple, no JVD. Heart: Normal S1, S2. No rubs, murmurs or gallops. Lungs: Clear to auscultation bilaterally. Abdomen: Normal bowel sound, soft, tender to palpation diffusely. No guarding or rebound. Extremity: No clubbing or cyanosis. There is trace edema in the lower extremity bilaterally. Assessment & Plan Assessment/Plan (1) ANDRE (acute kidney injury): PLAN: I suspect that ANDRE started from azotemia from poor oral intake. He had also been on HARITHA inhibitor and furosemide. Cr is improving ok to dc (2) Hyperkalemia: PLAN: resolved (3) Metabolic acidosis: PLAN: Resolved. This was likely due to ANDRE. . (4) Abdominal pain: QUALIFIERS: Abdominal location: right upper quadrant Qualified Code(s): R10.11 - Right upper quadrant pain PLAN: as per the primary service. better
--- NOTE | 2021-01-15 12:32 | DCINST_ITS ---
Discharge Instructions Diet Discharge Diet: Light diet - advance as tolerated Activity Discharge Activity: Return to Normal Activity Dressing / Incision Call your doctor if you observe: Inability to urinate, Shortness of breath, Dizziness and Chest pain Follow Up Care Test Results: Test results from this visit will be discussed in further detail at your follow-up appointment, if applicable. Discharge Plan Admission Admit Date/Time: 01/11/21 01:18 Primary Reason for Your Visit: Gastric reflux, acute kidney injury Attending Provider: Shahab Robertson Primary Care Provider: Care Physician,No Primary Consulting Providers: [facility] ; Binu Ann Instructions Additional Instructions / Restrictions: You will need repeat BMP in 1 week to reassess kidney function. This may be completed by primary care provider or nephrology. Discharge Orders/Prescriptions Prescriptions: New sucralfate 1 gram Tablet 1 g PO 1HR_ACHS Qty: 120 RF: 0 pantoprazole [Protonix] 40 mg tablet,delayed release (DR/EC) 40 mg PO BID Qty: 60 RF: 0 Continued buspirone 5 mg Tablet 5 mg PO BID RF: 0 atorvastatin 80 mg Tablet 80 mg PO QHS RF: 0 loperamide 2 mg Capsule 2 mg PO Q6H PRN (Reason: Diarrhea) RF: 0 amitriptyline 75 mg Tablet 75 mg PO QHS RF: 0 leflunomide 10 mg Tablet 10 mg PO DAILY RF: 0 amitriptyline 25 mg Tablet 25 mg PO QHS RF: 0 tamsulosin 0.4 mg Capsule 0.4 mg PO QHS RF: 0 ferrous sulfate 325 mg (65 mg iron) Tablet 325 mg PO DAILY RF: 0 metformin 1,000 mg Tablet 1,000 mg PO BID RF: 0 bupropion HCl 75 mg Tablet 150 mg PO BID RF: 0 aspirin 81 mg Tablet,Chewable 81 mg PO DAILY RF: 0 albuterol 90 mcg/actuation Aerosol 90 mcg INHALATION Q6H PRN (Reason: sob) RF: 0 fluticasone propionate 50 mcg/actuation [place],Suspension 1 spray INTRANASAL DAILY PRN (Reason: Congestion) RF: 0 sertraline 50 mg Tablet 50 mg PO DAILY RF: 0 hydroxyzine pamoate 25 mg Capsule 25 mg PO Q6H PRN (Reason: Anxiety) RF: 0 insulin lispro 100 unit/mL Cartridge See Protocol sliding scale dose subcut TID RF: 0 ezetimibe 10 mg Tablet 10 mg PO DAILY RF: 0 Acidophilus Tablet,Chewable 2 tab PO DAILY RF: 0 metoprolol tartrate 25 mg Tablet 25 mg PO BID RF: 0 tizanidine 4 mg Capsule 4 mg PO TID RF: 0 pregabalin 200 mg Capsule 200 mg PO TID RF: 0 quetiapine 50 mg Tablet 50 mg PO BID RF: 0 cholecalciferol (vitamin D3) [Vitamin D3] 50 mcg (2,000 unit) Tablet 50 mcg PO DAILY RF: 0 omega [id number]-khj-fish oil [Fish Oil] 1,000 mg (120 mg-180 mg) Capsule 1 cap PO BID RF: 0 duloxetine 60 mg Capsule, Delayed Rel Sprinkle 60 mg PO QHS RF: 0 B12 Active 1,000 mcg Tablet,Chewable 1,000 mcg PO DAILY RF: 0 Tresiba FlexTouch U-100 100 unit/mL (3 mL) insulin pen 20 unit SUBCUT QHS RF: 0 Discontinued furosemide 40 mg Tablet 40 mg PO BID RF: 0 pantoprazole 40 mg Tablet,Delayed Release (Dr/Ec) 40 mg PO DAILY RF: 0 lisinopril 10 mg Tablet 10 mg PO DAILY RF: 0 tramadol 50 mg Tablet 50 mg PO BID PRN (Reason: Pain) RF: 0 Referrals / Follow Up: Binu Ann MD [STAFF PHYSICIAN] - In 1 Week [facility] MD [STAFF PHYSICIAN] - In 1 Week Care Physician,No Primary [Primary Care Provider] - In 1 Week Disposition Disposition (needs filled in before D/C Order can be placed): Assisted Living
[2021-01-15] MEDS: Ondansetron 4 MG/2 ML Vial IV (12:37)
[2021-01-15] MEDS: Acetaminophen 325 MG Tablet 650 MG PO (12:37)
--- NOTE | 2021-01-15 12:42 | PCM.DC.SUM ---
Documented by User: Laya Castro NP, CLERICAL ADMINISTRATIVE ASSISTANT-C 01/15/21 12:55 Providers Date of Admission: 01/11/21 Date of Discharge: 01/15/21 Primary Care Physician: No Primary Care Phys Consultations 01/11/21 01:47 Consult: General Surgery Routine Consulting Provider: [facility] Reason for Consult: N/V/RUQ pain, ? cholecystitis, ? biliary colic EMERGENT Consult: No MD Notified: Yes Date Notified: 01/11/21 Time Notified: 01:18 Method of Notification: called per ED. 01/11/21 14:19 Consult: Nephrology Routine Consulting Provider: Binu Ann Reason for Consult: ANDRE EMERGENT Consult: No MD Notified: Yes Date Notified: 01/11/21 Time Notified: 14:19 Method of Notification: Text Reason For Visit: ANDRE, HYPERKALEMIA, HYPOGLYCEMIA, INTRACTABLE Diagnosis Discharge Diagnosis (1) ANDRE (acute kidney injury): Status: Acute Code(s): N17.9 - Acute kidney failure, unspecified (2) Hyperkalemia: Status: Acute Code(s): E87.5 - Hyperkalemia (3) Metabolic acidosis: Status: Acute Code(s): E87.2 - Acidosis (4) Abdominal pain: Status: Acute Code(s): R10.9 - Unspecified abdominal pain Qualifiers: Abdominal location: right upper quadrant Qualified Code(s): R10.11 - Right upper quadrant pain Medications at Discharge Home Medications Acidophilus 2 tab PO DAILY 11/27/20 B12 Active 1,000 mcg PO DAILY 11/27/20 albuterol 90 mcg INHALATION Q6H PRN 11/27/20 amitriptyline 25 mg PO QHS 11/27/20 amitriptyline 75 mg PO QHS 11/27/20 aspirin 81 mg PO DAILY 11/27/20 atorvastatin 80 mg PO QHS 11/27/20 bupropion HCl 150 mg PO BID 11/27/20 buspirone 5 mg PO BID 11/27/20 cholecalciferol (vitamin D3) [Vitamin D3] 50 mcg PO DAILY 11/27/20 duloxetine 60 mg PO QHS 11/27/20 ezetimibe 10 mg PO DAILY 11/27/20 ferrous sulfate 325 mg PO DAILY 11/27/20 fluticasone propionate 1 spray INTRANASAL DAILY PRN 11/27/20 hydroxyzine pamoate 25 mg PO Q6H PRN 11/27/20 insulin lispro See Protocol SUBCUT TID 11/27/20 leflunomide 10 mg PO DAILY 11/27/20 loperamide 2 mg PO Q6H PRN 11/27/20 metoprolol tartrate 25 mg PO BID 11/27/20 omega 5-frj-buf-fish oil [Fish Oil] 1 cap PO BID 11/27/20 pregabalin 200 mg PO TID 11/27/20 quetiapine 50 mg PO BID 11/27/20 sertraline 50 mg PO DAILY 11/27/20 tamsulosin 0.4 mg PO QHS 11/27/20 tizanidine 4 mg PO TID 11/27/20 Tresiba FlexTouch U-100 20 unit SUBCUT QHS 01/10/21 metformin 500 mg PO BID #0 tab 01/15/21 pantoprazole [Protonix] 40 mg PO BID #60 tab 01/15/21 sucralfate 1 g PO 1HR_ACHS #120 tab 01/15/21 Hospital Course Operations None Procedures None Summary of Care Provided Minutes Spent on Discharge: 35 Hospital Course: Patient is a 55-year-old male admitted 01/11/2021 due to abdominal pain, nausea and vomiting. 1. Abdominal pain related to duodenal gastric reflux, constipation-General surgery consulted during admission. Cholecystitis ruled out. CT of abdomen with no acute abnormality. Gallbladder ultrasound showed gallbladder sludge. Continue bowel regimen. Initiated on PPI, Carafate. HIDA scan excludes cholecystitis, significant for duodenal gastric reflux. Follow-up with general surgery in 1 week. 2. Acute kidney injury with associated hyperkalemia on chronic kidney disease stage IIIa-chronic kidney disease stage IIIa based on prior MDRD GFR. Renal ultrasound normal. Nephrology consulted. Patient reports a history of difficulty urinating. On Flomax. Suspect prerenal. Hyperkalemia resolved. Continue to hold Lasix and HARITHA inhibitor at discharge. Creatinine improved to 2.26 at discharge from 6.8 on admission. 3. Type 2 diabetes mellitus-continue home oral and insulin regimen. Reduce Metformin to 500 mg twice daily until repeat BMP/creatinine returned to baseline. 4. Chronic bilateral lower extremity wounds-Do not appear acutely infected. 5. Anxiety/depression/bipolar disorder-resume amitriptyline, BuSpar, Seroquel, sertraline, bupropion, duloxetine. 6. Hypertension-continue metoprolol. Continue to hold HARITHA inhibitor at discharge. 7. Hyperlipidemia-continue statin. 8. Rheumatoid arthritis-on leflunomide. 9. Morbid obesity-encouraged diet and lifestyle modifications. 10. GERD-on PPI. 11. Tobacco dependence-encouraged cessation. Physical Exam Const alert, oriented x3 and no apparent distress Orientation / Consciousness: awake, oriented to person, oriented to place and oriented to time HEENT normocephalic and moist oral mucous membranes Eyes PERRL, EOMs intact bilaterally and conjunctivae normal Neck no lymphadenopathy Resp normal respiratory effort and clear to auscultation bilaterally Cardio regular rate, regular rhythm and no murmurs Peripheral Pulses: pulses 2+ throughout GI normal to inspection, nondistended, normoactive bowel sounds, non-tender and non-distended Extremity normal to inspection Skin no rashes or lesions noted Lesions: no lesions Rashes: no rashes Trauma: no lacerations or abrasions Neuro CN's II-XII intact bilaterally, no focal motor deficits, no sensory deficits noted and deep tendon reflexes 2+ bilaterally Psych mental status grossly normal and affect normal Patient seen and examined prior to discharge. Physical assessment as noted above. Patient is stable for discharge with follow up recommendations as noted above. This patient was seen by MARIAN العلي under the supervision of Dr. Robertson. Weight / BMI Weight Weight: 289 lb 14.526 oz Body Mass Index (BMI) 42.3 ABG / Lab / Microbiology Data Result Diagrams: 01/12/21 06:58 01/15/21 05:16 Laboratory: Laboratory Results - last 24 hr 01/14/21 16:10: POC Glucose 323 H 01/14/21 21:56: POC Glucose 319 H 01/15/21 05:16: Sodium 140, Potassium 4.5, Chloride 111 H, Carbon Dioxide 24.0, Anion Gap 5, BUN 21 H, Creatinine 2.26 H, Estim Creat Clear Calc 37.37, Est GFR (MDRD) Af Amer 39 L, Est GFR (MDRD) Non-Af 32 L, BUN/Creatinine Ratio 9.3 L, Glucose 361 H, Calcium 7.6 L 01/15/21 06:42: POC Glucose 348 H 01/15/21 11:28: POC Glucose 251 H Microbiology: Microbiology 01/10/21 23:45 Nasal Secretion SARS-CoV-2 Antigen (Rapid) - Final D/C Instructions Discharge Diet: Light diet - advance as tolerated Call your doctor if you observe: Inability to urinate, Shortness of breath, Dizziness and Chest pain Meaningful Use Info Meaningful Use Diagnoses (Choose all that apply): None applicable Discharge Plan Admission Admit Date/Time: 01/11/21 01:18 Primary Reason for Your Visit: Gastric reflux, acute kidney injury Attending Provider: Shahab Robertson Primary Care Provider: Care Physician,No Primary Consulting Providers: [facility] ; Binu Ann Instructions Additional Instructions / Restrictions: You will need repeat BMP in 1 week to reassess kidney function. This may be completed by primary care provider or nephrology. Discharge Orders/Prescriptions Prescriptions: New sucralfate 1 gram Tablet 1 g PO 1HR_ACHS Qty: 120 RF: 0 pantoprazole [Protonix] 40 mg tablet,delayed release (DR/EC) 40 mg PO BID Qty: 60 RF: 0 Continued buspirone 5 mg Tablet 5 mg PO BID RF: 0 atorvastatin 80 mg Tablet 80 mg PO QHS RF: 0 loperamide 2 mg Capsule 2 mg PO Q6H PRN (Reason: Diarrhea) RF: 0 amitriptyline 75 mg Tablet 75 mg PO QHS RF: 0 leflunomide 10 mg Tablet 10 mg PO DAILY RF: 0 amitriptyline 25 mg Tablet 25 mg PO QHS RF: 0 tamsulosin 0.4 mg Capsule 0.4 mg PO QHS RF: 0 ferrous sulfate 325 mg (65 mg iron) Tablet 325 mg PO DAILY RF: 0 bupropion HCl 75 mg Tablet 150 mg PO BID RF: 0 aspirin 81 mg Tablet,Chewable 81 mg PO DAILY RF: 0 albuterol 90 mcg/actuation Aerosol 90 mcg INHALATION Q6H PRN (Reason: sob) RF: 0 fluticasone propionate 50 mcg/actuation Eagle,Suspension 1 spray INTRANASAL DAILY PRN (Reason: Congestion) RF: 0 sertraline 50 mg Tablet 50 mg PO DAILY RF: 0 hydroxyzine pamoate 25 mg Capsule 25 mg PO Q6H PRN (Reason: Anxiety) RF: 0 insulin lispro 100 unit/mL Cartridge See Protocol sliding scale dose subcut TID RF: 0 ezetimibe 10 mg Tablet 10 mg PO DAILY RF: 0 Acidophilus Tablet,Chewable 2 tab PO DAILY RF: 0 metoprolol tartrate 25 mg Tablet 25 mg PO BID RF: 0 tizanidine 4 mg Capsule 4 mg PO TID RF: 0 pregabalin 200 mg Capsule 200 mg PO TID RF: 0 quetiapine 50 mg Tablet 50 mg PO BID RF: 0 cholecalciferol (vitamin D3) [Vitamin D3] 50 mcg (2,000 unit) Tablet 50 mcg PO DAILY RF: 0 omega 8-ela-enp-fish oil [Fish Oil] 1,000 mg (120 mg-180 mg) Capsule 1 cap PO BID RF: 0 duloxetine 60 mg Capsule, Delayed Rel Sprinkle 60 mg PO QHS RF: 0 B12 Active 1,000 mcg Tablet,Chewable 1,000 mcg PO DAILY RF: 0 Tresiba FlexTouch U-100 100 unit/mL (3 mL) insulin pen 20 unit SUBCUT QHS RF: 0 Changed metformin 1,000 mg Tablet 500 mg PO BID Qty: 0 RF: 0 Discontinued furosemide 40 mg Tablet 40 mg PO BID RF: 0 pantoprazole 40 mg Tablet,Delayed Release (Dr/Ec) 40 mg PO DAILY RF: 0 lisinopril 10 mg Tablet 10 mg PO DAILY RF: 0 tramadol 50 mg Tablet 50 mg PO BID PRN (Reason: Pain) RF: 0 Referrals / Follow Up: Binu Ann MD [STAFF PHYSICIAN] - In 1 Week [facility] MD [STAFF PHYSICIAN] - In 1 Week Care Physician,No Primary [Primary Care Provider] - In 1 Week Disposition Disposition (needs filled in before D/C Order can be placed): Assisted Living Documented by User: Dr. Shahab Robertson MD 01/15/21 13:26 Providers Date of Admission: 01/11/21 Reason For Visit: ANDRE, HYPERKALEMIA, HYPOGLYCEMIA, INTRACTABLE Medications at Discharge Home Medications Acidophilus 2 tab PO DAILY 11/27/20 B12 Active 1,000 mcg PO DAILY 11/27/20 albuterol 90 mcg INHALATION Q6H PRN 11/27/20 amitriptyline 25 mg PO QHS 11/27/20 amitriptyline 75 mg PO QHS 11/27/20 aspirin 81 mg PO DAILY 11/27/20 atorvastatin 80 mg PO QHS 11/27/20 bupropion HCl 150 mg PO BID 11/27/20 buspirone 5 mg PO BID 11/27/20 cholecalciferol (vitamin D3) [Vitamin D3] 50 mcg PO DAILY 11/27/20 duloxetine 60 mg PO QHS 11/27/20 ezetimibe 10 mg PO DAILY 11/27/20 ferrous sulfate 325 mg PO DAILY 11/27/20 fluticasone propionate 1 spray INTRANASAL DAILY PRN 11/27/20 hydroxyzine pamoate 25 mg PO Q6H PRN 11/27/20 insulin lispro See Protocol SUBCUT TID 11/27/20 leflunomide 10 mg PO DAILY 11/27/20 loperamide 2 mg PO Q6H PRN 11/27/20 metoprolol tartrate 25 mg PO BID 11/27/20 omega 9-blx-mfm-fish oil [Fish Oil] 1 cap PO BID 11/27/20 pregabalin 200 mg PO TID 11/27/20 quetiapine 50 mg PO BID 11/27/20 sertraline 50 mg PO DAILY 11/27/20 tamsulosin 0.4 mg PO QHS 11/27/20 tizanidine 4 mg PO TID 11/27/20 Tresiba FlexTouch U-100 20 unit SUBCUT QHS 01/10/21 metformin 500 mg PO BID #0 tab 01/15/21 pantoprazole [Protonix] 40 mg PO BID #60 tab 01/15/21 sucralfate 1 g PO 1HR_ACHS #120 tab 01/15/21 ABG / Lab / Microbiology Data Result Diagrams: 01/12/21 06:58 01/15/21 05:16 Discharge Plan Admission Admit Date/Time: 01/11/21 01:18 Primary Reason for Your Visit: Gastric reflux, acute kidney injury Attending Provider: Kotsonis,Shahab F Primary Care Provider: Care Physician,No Primary Consulting Providers: [facility] ; Binu Ann Instructions Additional Instructions / Restrictions: You will need repeat BMP in 1 week to reassess kidney function. This may be completed by primary care provider or nephrology. Discharge Orders/Prescriptions Prescriptions: New sucralfate 1 gram Tablet 1 g PO 1HR_ACHS Qty: 120 RF: 0 pantoprazole [Protonix] 40 mg tablet,delayed release (DR/EC) 40 mg PO BID Qty: 60 RF: 0 Continued buspirone 5 mg Tablet 5 mg PO BID RF: 0 atorvastatin 80 mg Tablet 80 mg PO QHS RF: 0 loperamide 2 mg Capsule 2 mg PO Q6H PRN (Reason: Diarrhea) RF: 0 amitriptyline 75 mg Tablet 75 mg PO QHS RF: 0 leflunomide 10 mg Tablet 10 mg PO DAILY RF: 0 amitriptyline 25 mg Tablet 25 mg PO QHS RF: 0 tamsulosin 0.4 mg Capsule 0.4 mg PO QHS RF: 0 ferrous sulfate 325 mg (65 mg iron) Tablet 325 mg PO DAILY RF: 0 bupropion HCl 75 mg Tablet 150 mg PO BID RF: 0 aspirin 81 mg Tablet,Chewable 81 mg PO DAILY RF: 0 albuterol 90 mcg/actuation Aerosol 90 mcg INHALATION Q6H PRN (Reason: sob) RF: 0 fluticasone propionate 50 mcg/actuation Eagle,Suspension 1 spray INTRANASAL DAILY PRN (Reason: Congestion) RF: 0 sertraline 50 mg Tablet 50 mg PO DAILY RF: 0 hydroxyzine pamoate 25 mg Capsule 25 mg PO Q6H PRN (Reason: Anxiety) RF: 0 insulin lispro 100 unit/mL Cartridge See Protocol sliding scale dose subcut TID RF: 0 ezetimibe 10 mg Tablet 10 mg PO DAILY RF: 0 Acidophilus Tablet,Chewable 2 tab PO DAILY RF: 0 metoprolol tartrate 25 mg Tablet 25 mg PO BID RF: 0 tizanidine 4 mg Capsule 4 mg PO TID RF: 0 pregabalin 200 mg Capsule 200 mg PO TID RF: 0 quetiapine 50 mg Tablet 50 mg PO BID RF: 0 cholecalciferol (vitamin D3) [Vitamin D3] 50 mcg (2,000 unit) Tablet 50 mcg PO DAILY RF: 0 omega 4-fpw-age-fish oil [Fish Oil] 1,000 mg (120 mg-180 mg) Capsule 1 cap PO BID RF: 0 duloxetine 60 mg Capsule, Delayed Rel Sprinkle 60 mg PO QHS RF: 0 B12 Active 1,000 mcg Tablet,Chewable 1,000 mcg PO DAILY RF: 0 Tresiba FlexTouch U-100 100 unit/mL (3 mL) insulin pen 20 unit SUBCUT QHS RF: 0 Changed metformin 1,000 mg Tablet 500 mg PO BID Qty: 0 RF: 0 Discontinued furosemide 40 mg Tablet 40 mg PO BID RF: 0 pantoprazole 40 mg Tablet,Delayed Release (Dr/Ec) 40 mg PO DAILY RF: 0 lisinopril 10 mg Tablet 10 mg PO DAILY RF: 0 tramadol 50 mg Tablet 50 mg PO BID PRN (Reason: Pain) RF: 0 Referrals / Follow Up: Binu Ann MD [STAFF PHYSICIAN] - In 1 Week [facility] MD [STAFF PHYSICIAN] - In 1 Week Care Physician,No Primary [Primary Care Provider] - In 1 Week Disposition Disposition (needs filled in before D/C Order can be placed): Assisted Living Charges/Coding Addendum Addendum: Dr. Robertson: I personally reviewed the chart and examined the patient, and agree with the above findings. 55-year-old male presented from assisted living with right upper quadrant epigastric pain. He was also found to have a severe renal failure with a creatinine of 6.88 on admission. He is also been having poor oral intake though this has been improving throughout his stay. He has been evaluated by general surgery who could not find a surgical reason for him to be having any abdominal pain. Appreciate nephrology's assistance. We will continue to monitor renal function and once significantly improved can plan for discharge back to the assisted living. 01/15/21: Doing well today, still has intermediate tolerance for food though he does eat with prompting. His kidney function has improved significantly from yesterday which was over 3 today which is 2.26. Discussed the case with nephrology who felt that he was okay for discharge from their standpoint. We will plan for discharge back to the assisted living today with outpatient follow-up. Would encourage continued prompting for adequate p.o. intake while at the assisted living. No current surgical intervention indicated at this time. Visit Charges Inpatient E&M: 93623 Disch Hosp
--- NOTE | 2021-01-15 14:02 | CASEMGMT ---
ANGE called [facility] and let Susan know that patient will be returning today and his prescriptions were sent to [place]. ANGE will fax d/c instructions and let them know a time. ANGE spoke with patient and he will need a ride back via wheelchair. ANGE spoke with his RN and he is waiting on patient to urinate as he took his catheter out. Rianna Negrete BELT BUCKLE MAKER SHAY
--- NOTE | 2021-01-15 14:22 | PHA.DC.MR ---
Pharmacy Service has performed discharge medication reconciliation for this patient. The patient's discharge medication list was reviewed for discrepancies and discrepancies were resolved. Home Medications Acidophilus 2 tab PO DAILY 11/27/20 B12 Active 1,000 mcg PO DAILY 11/27/20 albuterol 90 mcg INHALATION Q6H PRN 11/27/20 amitriptyline 25 mg PO QHS 11/27/20 amitriptyline 75 mg PO QHS 11/27/20 aspirin 81 mg PO DAILY 11/27/20 atorvastatin 80 mg PO QHS 11/27/20 bupropion HCl 150 mg PO BID 11/27/20 buspirone 5 mg PO BID 11/27/20 cholecalciferol (vitamin D3) [Vitamin D3] 50 mcg PO DAILY 11/27/20 duloxetine 60 mg PO QHS 11/27/20 ezetimibe 10 mg PO DAILY 11/27/20 ferrous sulfate 325 mg PO DAILY 11/27/20 fluticasone propionate 1 spray INTRANASAL DAILY PRN 11/27/20 hydroxyzine pamoate 25 mg PO Q6H PRN 11/27/20 insulin lispro See Protocol SUBCUT TID 11/27/20 leflunomide 10 mg PO DAILY 11/27/20 loperamide 2 mg PO Q6H PRN 11/27/20 metoprolol tartrate 25 mg PO BID 11/27/20 omega 2-zfs-tzy-fish oil [Fish Oil] 1 cap PO BID 11/27/20 pregabalin 200 mg PO TID 11/27/20 quetiapine 50 mg PO BID 11/27/20 sertraline 50 mg PO DAILY 11/27/20 tamsulosin 0.4 mg PO QHS 11/27/20 tizanidine 4 mg PO TID 11/27/20 Tresiba FlexTouch U-100 20 unit SUBCUT QHS 01/10/21 metformin 500 mg PO BID #0 tab 01/15/21 pantoprazole [Protonix] 40 mg PO BID #60 tab 01/15/21 sucralfate 1 g PO 1HR_ACHS #120 tab 01/15/21
[2021-01-15] MEDS: oxyCODONE 5 MG Tablet PO (15:10)
--- NOTE | 2021-01-15 15:39 | CASEMGMT ---
ANGE faxed orders to [facility]. ANGE called [facility] and requested wheelchair excelsior picker via [facility]. Awaiting excelsior picker time. Rianna Negrete MSW SHAY
[2021-01-15] MEDS: amLODIPine 10 MG Tablet PO (16:07)
--- NOTE | 2021-01-15 16:20 | CASEMGMT ---
Patient will be picked up at 8p via van by [facility]. ANGE notified charge entry specialist, patient, and RN. ANGE also called [facility] and spoke with Susan letting her know he will get picked up at 8p. Plan: d/c back to [facility]. [facility] transported patient via [facility] van. iRanna DAY
[2021-01-15 16:21] LABS: Bedside Glucose 321 mg/dL (70-110)
--- NOTE | 2021-01-15 21:27 | NURSING ---
Pt leaving via wheelchair to [facility] via [facility]. Pt left will all belongings. IV previously removed; needle valve operator removed and returned to nurses station.
== END 2021-01-15 21:30 | disposition home or self-care (01) | DRG 391 ==
LOC: ED 23:29 → PCU 01-11 03:56
PROVIDERS: Nurse Practitioner Family; Student in an Organized Health Care Education/Training Program; Admitting Provider Family Medicine; Emergency Provider Emergency Medicine; Visit Provider Family Medicine
DX: K21.9 Gastro-esophageal reflux disease without esophagitis (principal); N17.0 Acute kidney failure with tubular necrosis; Z68.41 Body mass index [BMI] 40.0-44.9, adult; E87.2 Acidosis; E87.5 Hyperkalemia; I12.9 Hypertensive chronic kidney disease with stage 1 through stage 4 chronic kidney disease, or unspecified chronic kidney disease; N18.31 Chronic kidney disease, stage 3a; E11.22 Type 2 diabetes mellitus with diabetic chronic kidney disease; K59.00 Constipation, unspecified; F31.9 Bipolar disorder, unspecified; F41.9 Anxiety disorder, unspecified; E78.5 Hyperlipidemia, unspecified; M06.9 Rheumatoid arthritis, unspecified; E66.01 Morbid (severe) obesity due to excess calories; Z79.4 Long term (current) use of insulin; Z79.899 Other long term (current) drug therapy; E11.40 Type 2 diabetes mellitus with diabetic neuropathy, unspecified; F17.210 Nicotine dependence, cigarettes, uncomplicated; E11.649 Type 2 diabetes mellitus with hypoglycemia without coma; D50.9 Iron deficiency anemia, unspecified; D63.1 Anemia in chronic kidney disease
CPT/HCPCS: 36415; 74150; 76705; 76770; 78226; 80048; 80053; 80076; 81001; 82550; 82570; 82962; 83690; 83735; 84300; 85025; 87426; 93005; 97110; 97162; 97166; 97530; 97535; 97802; 97803; 99251; 99285; 99406; A9537; J7030; J7050; A4216; G0463; J0610; J2405

== ENCOUNTER 2021-01-16 12:26 | Inpatient (IN) | payer MEDICARE, MEDICAID, SELFPAY ==
[2021-01-16] VITALS (10 sets, daily range): BP systolic 158–194; BP diastolic 84–104; PULSE 108–121; RESP 15–33; TEMP 36.9–37.7; O2SAT 92–99; BMI 42.5; BMI 41.8
--- NOTE | 2021-01-16 12:56 | EKG12_ITS ---
Test Reason : Blood Pressure : / mmHG Vent. Rate : 112 BPM Atrial Rate : 112 BPM P-R Int : 196 ms QRS Dur : 104 ms QT Int : 334 ms P-R-T Axes : 051 004 053 degrees QTc Int : 455 ms Sinus tachycardia Nonspecific T wave abnormality Abnormal ECG Confirmed by ZULEYMA ARSHAD, ZENAIDA ([id number]), development editor FRANKY CRISTINA ([id number]) on 01/21/2021 8:18:42 AM Referred By: KATY Confirmed By:BC AMOR MD
--- NOTE | 2021-01-16 12:57 | EX.ED.DYSGE1 ---
HPI History of Present Illness Chief Complaint: Hyperglycemia Informant: patient Onset/Context/Timing Onset: Today Context: Gradual Onset Timing: Continuous Quality: Lightheaded Location: Generalized Worsened by: Nothing Relieved by: Nothing Narrative Narrative: Patient presents with elevated blood sugars that began today. Patient is a poor historian. Patient states his blood sugars were elevated today. EMS reports that the patient's blood sugar was 481 at the half-way today. Patient states he feels lightheaded and nauseated. Patient denies any fevers or chills. Patient also admits to some vomiting and diarrhea. Patient denies any chest pain or shortness of breath. Patient does admit to a cough. PFSH PFSH Medical History Anxiety and depression Bipolar disorder Chronic anemia Diabetes HTN (hypertension) Hypercholesterolemia Morbid obesity Neuropathy Rheumatoid arthritis RUQ abdominal pain Tobacco use Home Medications Acidophilus 2 tab PO DAILY 11/27/20 [History Last Taken 01/16/21] B12 Active 1,000 mcg PO DAILY 11/27/20 [History Last Taken 01/16/21] amitriptyline 75 mg PO QHS 11/27/20 [History Last Taken 01/14/21] aspirin 81 mg PO DAILY 11/27/20 [History Last Taken 01/16/21] atorvastatin 80 mg PO QHS 11/27/20 [History Last Taken 01/14/21] buspirone 5 mg PO BID 11/27/20 [History Last Taken 01/16/21] cholecalciferol (vitamin D3) [Vitamin D3] 50 mcg PO DAILY 11/27/20 [History Last Taken 01/16/21] duloxetine 60 mg PO QHS 11/27/20 [History Last Taken Unknown] ezetimibe 10 mg PO DAILY 11/27/20 [History Last Taken 01/16/21] ferrous sulfate 325 mg PO DAILY 11/27/20 [History Last Taken 01/16/21] insulin lispro See Protocol SUBCUT TID 11/27/20 [History Last Taken 01/16/21] leflunomide 10 mg PO DAILY 11/27/20 [History Last Taken 01/16/21] metoprolol tartrate 25 mg PO BID 11/27/20 [History Last Taken 01/16/21] omega 5-[id number]-fish oil [Fish Oil] 1 cap PO BID 11/27/20 [History Last Taken 01/16/21] pregabalin 200 mg PO TID 11/27/20 [History Last Taken 01/16/21] quetiapine 50 mg PO BID 11/27/20 [History Last Taken 01/16/21] sertraline 50 mg PO DAILY 11/27/20 [History Last Taken 01/15/21] tamsulosin 0.4 mg PO QHS 11/27/20 [History Last Taken 01/14/21] Tresiba FlexTouch U-100 20 unit SUBCUT QHS 01/10/21 [History Last Taken Unknown] pantoprazole [Protonix] 40 mg PO BID #60 tab 01/15/21 [Rx Last Taken 01/16/21] amlodipine 10 mg PO DAILY 01/16/21 [History Last Taken 01/16/21] bupropion HCl 150 mg PO DAILY 01/16/21 [History Last Taken 01/16/21] metformin 500 mg PO BID 01/16/21 [History Last Taken 01/16/21] sucralfate 1 g PO ACHS 01/16/21 [History Last Taken 01/16/21] Allergy/AdvReac Type Severity Reaction Status Date / Time No Known Allergies Allergy Verified 01/16/21 12:27 Family History (Updated 01/11/21 @ 01:[address] Kanwal Russo MD) Mother Diabetes Father Diabetes Hypertension Social History housing: assisted living facility Smoking Status: Light Smoker (<10/day) alcohol intake: never substance use type: does not use ROS ROS ED Constitutional Constitutional ED: Denies chills or fever(s) Eyes Eyes: Denies blurry vision or change in vision ENT ENT ED: Denies rhinorrhea or sore throat Cardiovascular Cardiovascular: Denies chest pain or palpitations Respiratory/Chest Respiratory/Chest: Denies cough or dyspnea Gastrointestinal Gastrointestinal: Reports diarrhea, nausea and vomiting Genitourinary Genitourinary ED: Reports urinary frequency; Denies dysuria or hematuria Musculoskeletal Musculoskeletal: Denies back pain or neck pain Integumentary Denies abscess or rash Neurologic Neurologic: Denies headache(s) or weakness Allergic/Immunologic Allergic/Immunologic ED: Denies mouth swelling or urticaria EXAM Physical Exam Const Vital Signs: 01/16/21 12:27 01/16/21 12:33 01/16/21 14:27 Temperature 99.1 F Temperature Source Oral Pulse Rate 114 H 121 H Respiratory Rate 28 H 33 H Respiratory Effort Normal Respiratory Pattern Normal Blood Pressure 172/104 H 188/101 H Blood Pressure Mean 126 130 Pulse Ox 92 94 Oxygen Delivery Method Room Air Room Air Positive well nourished and well developed General Appearance ED: well developed HEENT Reports moist mucous membranes Neck supple and no JVD Resp normal respiratory effort and clear to auscultation bilaterally Cardio regular rate, regular rhythm and no murmurs GI normal to inspection, nondistended, normoactive bowel sounds Palpation: soft and tender other (There is mild diffuse tenderness. There is no rebound or guarding.); Negative for guarding or rebound tenderness present Extremity normal to inspection General Extremety ED: Negative for edema or tenderness General Extremity: Negative for edema Neuro oriented x3, CN's II-XII intact bilaterally and no sensory deficits noted Sensorium / Orientation: alert Motor Exam: strength 5/5 throughout Psych mental status grossly normal Skin no rashes or lesions noted MDM MDM MDM Narrative Medical decision making narrative: CBC shows a leukocytosis of 16.8. Comprehensive metabolic profile showed an elevated creatinine of 2.17 and BUN of 20. Glucose was 509. Sodium was normal. Serum acetone level was small. Lactate was normal at 1.9. Venous blood gas showed a pH of 7.352 with a PCO2 of 36.6, PO2 of 41.1, bicarb of 20.3, and sat of 74.3%. EKG was obtained. On my interpretation, shows sinus tachycardia 112. [place] interval, QRS normal, and QTc intervals were normal. [place] was normal. There are nonspecific ST-T wave changes. Portable 1 view chest x-ray was obtained. On my interpretation, lung castillo showed mild congestion. There is normal cardiac silhouette. Bony thorax is normal. There is no acute process noted. Radiologist also interpreted the x-ray and agrees. Patient was given 2 L of fluids. Case was discussed with the hospitalist. Patient was recently admitted to the hospital and discharged yesterday. He recommended giving the patient 15 units of subcu insulin and repeating the blood sugar. If the blood sugar and his mental status are markedly improved, patient may be discharged back to the extended care facility. If they are still elevated and he is still confused, he will admit the patient to the hospital at that time. Care of the patient was turned over to the oncoming physician. Lab Data Attestation: I reviewed the patient's lab results. Labs: Laboratory Results - last 24 hr 01/16/21 01/16/21 01/16/21 12:34 12:34 12:34 WBC 16.8 H RBC 4.22 L Hgb 11.4 L Hct 32.4 L MCV 76.8 L D MCH 27.0 MCHC 35.2 RDW Std Deviation 43.4 RDW Coeff of Nathalie 15.7 H Plt Count 294 MPV 10.8 Immature Gran % (Auto) 0.800 Neut % (Auto) 87.8 H Lymph % (Auto) 7.0 L [place] % (Auto) 4.2 Eos % (Auto) 0.0 Baso % (Auto) 0.2 Absolute Neuts (auto) 14.7 H Absolute Lymphs (auto) 1.18 Nucleated RBC % 0 Sodium 138 Potassium 4.7 Chloride 107 Carbon Dioxide 22.0 Anion Gap 9 BUN 20 H Creatinine 2.17 H Estim Creat Clear Calc 38.92 Est GFR (MDRD) Af Amer 41 L Est GFR (MDRD) Non-Af 34 L BUN/Creatinine Ratio 9.2 L Glucose 509 H* Lactic Acid Calcium 8.5 Total Bilirubin 0.40 AST 59 H ALT 27 Alkaline Phosphatase 162 H Total Protein 8.0 Albumin 3.1 L Globulin 4.9 H Albumin/Globulin Ratio 0.6 L Urine Color Urine Clarity Urine pH Ur Specific [place] Urine Protein Urine Glucose (UA) Urine Ketones Urine Occult Blood Urine Nitrite Urine Bilirubin Urine Urobilinogen Ur Leukocyte Esterase Urine RBC Urine WBC Ur Squamous Epith Cells Urine Bacteria Urine Mucus Acetone Level SMALL H 01/16/21 01/16/21 12:34 15:23 WBC RBC Hgb Hct MCV MCH MCHC RDW Std Deviation RDW Coeff of Nathalie Plt Count MPV Immature Gran % (Auto) Neut % (Auto) Lymph % (Auto) [place] % (Auto) Eos % (Auto) Baso % (Auto) Absolute Neuts (auto) Absolute Lymphs (auto) Nucleated RBC % Sodium Potassium Chloride Carbon Dioxide Anion Gap BUN Creatinine Estim Creat Clear Calc Est GFR (MDRD) Af Amer Est GFR (MDRD) Non-Af BUN/Creatinine Ratio Glucose Lactic Acid 1.9 Calcium Total Bilirubin AST ALT Alkaline Phosphatase Total Protein Albumin Globulin Albumin/Globulin Ratio Urine Color Yellow Urine Clarity Clear Urine pH 5.0 Ur Specific [place] 1.015 Urine Protein 30 H Urine Glucose (UA) 1000 H Urine Ketones 50 H Urine Occult Blood 250 H Urine Nitrite Negative Urine Bilirubin Negative Urine Urobilinogen Normal Ur Leukocyte Esterase Negative Urine RBC 0-5 SEEN Urine WBC 0 SEEN Ur Squamous Epith Cells 0 SEEN Urine Bacteria 0 SEEN Urine Mucus 0 SEEN Acetone Level ABG Data ABG results: ABG 01/16/21 13:27 Specimen Type SHELLEY VBG pH 7.35 VBG pO2 41 H VBG HCO3 20 L VBG Total CO2 21 L VBG O2 Sat (Calc) 74 H VBG Base Excess -5 L POC Mix VBG pCO2 Pt Tmp 36.6 L Radiography Chest X-Ray - ED: 1 View, Read by ED Physician, Read by Radiologist and - (Mild congestive changes) Diagnostic Testing: Radiology Impression Chest X-Ray 01/16/21 13:47 IMPRESSION: Cardiomegaly and bronchovascular prominence with the common clinical correlation for mild congestive changes, bronchitis or airway disease. Electronically Signed: Joseph Salguero MD at 14:32 EDT Tel , Service support , EKG Initial EKG: Attestation: I personally reviewed and interpreted this EKG as follows: Interpretation: Sinus Tachycardia (112) and Non-Specific ST Changes Prior EKG tracings: not available for review Discharge Plan Dx/Rx/DC Orders Clinical Impression: Uncontrolled type 2 diabetes mellitus with hyperosmolar nonketotic hyperglycemia, Encephalopathy acute Disposition Disposition: Acute Care [facility] Discharge Date/Time: 01/16/21 18:11
[2021-01-16 13:36] LABS: Blood Gas Specimen Type VEN; VBG BASE EXCESS -5 mmol/L (-1.0-3.5); VBG Bicarbonate 20 mmol/L (22-26); VBG PO2 41 mmHg (25-40); VBG SO2 74 % (50-70); VBG TCO2 21 mmol/L (23-33); VBG pCO2 36.6 mmHg (41-51); VBG pH 7.35 (7.32-7.42)
[2021-01-16 13:40] LABS: Absolute Lymphocyte Count 1.18 X10^3/uL (0.83-4.51); Absolute Neutrophil Count 14.7 X10^3/uL (2.0-7.7); Basophil# 0.04 X10^3/uL; Basophil% 0.2 % (0-1); Hematocrit 32.4 % (40-54); Hemoglobin 11.4 g/dL (13.0-16.5); Lymphocyte # 1.18 X10^3/ul (0.83-4.51); Mean Corp Hgb Conc 35.2 g/dL (32-36); Mean Corpuscular Volume 76.8 fL (80-94); Mean Platelet Vol. 10.8 fl (6.2-12.0); Monocyte# 0.71 X10^3/uL; Monocyte% 4.2 % (0-10); NRBC Flagged by Analyzer 0 % (0-5); Neutrophil # 14.74 X10^3/uL (2.7-7.7); Neutrophil % 87.8 % (47-70); Platelet Count 294 K/mm3 (150-450); RBC Distribution Width CV 15.7 % (11.6-14.6); RBC Distribution Width SD 43.4 fl (35.1-43.9); Red Blood Count 4.22 M/mm3 (4.6-6.2); White Blood Count 16.8 K/mm3 (4.4-11.0)
--- NOTE | 2021-01-16 13:47 | RAD_ITS ---
INDICATION: Cough EXAMINATION/TECHNIQUE: X-RAY - XR Chest 1 View COMPARISON: None. FINDINGS: Poor inspiratory effort is seen that demonstrates evaluation. LINES/DEVICES: EKG leads are seen superimposing the chest. LUNGS: Peribronchial cuffing is visualized with clinical correlation for acute bronchitis or airway disease. Mild prominence of the bronchovascular interstitial lung markings is visualized bilaterally, no evidence of focal infiltrate or consolidation is seen. MEDIASTINUM AND CARDIOVASCULAR STRUCTURES: Prominence of the cardiovascular silhouette is partially artifactual due to the poor inspiratory effort. BONES AND SOFT TISSUES: Degenerative bone changes. RAD/Chest 1 View (Portable) IMPRESSION: Cardiomegaly and bronchovascular prominence with the common clinical correlation for mild congestive changes, bronchitis or airway disease. Electronically Signed: Joseph Salguero MD at 14:32 EDT Tel , Service support ,
[2021-01-16 13:58] LABS: ALB/GLOB Ratio 0.6 RATIO (0.9-2.4); AST(SGOT) 59 U/L (15-37); Alanine Aminotransfer ALT/SGPT 27 U/L (16-61); Albumin, Serum 3.1 g/dL (3.2-5.0); Alkaline Phosphatase 162 U/L (45-117); Anion Gap 9 (5-15); BUN 20 mg/dL (7-18); BUN/Creat Ratio 9.2 RATIO (10-20); Calcium,Total 8.5 mg/dL (8.5-10.1); Chloride 107 mmol/L (98-107); Creatinine, Serum 2.17 mg/dL (0.70-1.30); EST Glomerular Filtration Rate 34 mL/min (>60); Est Glom Filt Rate - Afr Amer 41 mL/min (>60); Estimated Creatinine Clearance 38.92 ml/min; Globulin 4.9 g/dL (2.2-4.2); Glucose 509 mg/dL (74-106); Lactic Acid 1.9 mmol/L (0.4-1.9); Potassium 4.7 mmol/L (3.5-5.1); Sodium Level 138 mmol/L (136-145)
[2021-01-16] MEDS: 0.9% Normal Saline 1,000 ML 1000 ML IV (14:00)
[2021-01-16] MEDS: 0.9% Normal Saline 1,000 ML 999 ML IV (15:18)
[2021-01-16 15:33] LABS: Bacteria 0 SEEN /hpf (None Seen); Mucous, Urine 0 SEEN /hpf (<or=2+); Squamous Epithelial Cells - UA 0 SEEN /hpf (0-5); White Blood Cells 0 SEEN /hpf (0-5)
[2021-01-16 15:35] LABS: Color, Urine Yellow (Yellow); Glucose, Dipstick 1000 mg/dl (Normal); Ketone-Dipstick 50 mg/dl (Negative); Leukocyte Esterase-Dipstick Negative /ul (Negative); Nitrite-Dipstick Negative (Negative); Occult Blood-Urine 250 /ul (Negative); Protein-Dipstick 30 mg/dl (Negative); Specific Gravity, Urine 1.015 (1.002-1.030); Urine Bilirubin Dipstick Negative (Negative); Urine Clarity Clear (Clear); Urine Urobilinogen Normal (Normal)
[2021-01-16 15:41] LABS: Red Blood Cells-Urine 0-5 SEEN /hpf (0-5)
--- NOTE | 2021-01-16 16:14 | NURSING ---
DR CRAIG FOR DR BURNS
[2021-01-16] MEDS: Insulin Lispro 100 UNIT/ML INSULN.PEN 15 UNIT SC (16:22)
[2021-01-16 17:25] LABS: Bedside Glucose 427 mg/dL (70-110)
--- NOTE | 2021-01-16 17:31 | PCM.HP.STD ---
HPI - General General Date of Admission: 01/16/21 HPI Narrative BERTA JARAMILLO, is a 55 M who presents from his assisted living with confusion. He is found to be hyperglycemic in the ER unsure whether or not he was getting his appropriate insulin and having his diet monitored at the assisted living. He is unable to provide any significant history. Per report in the ER and per EMS, his blood sugar was 41 at the assisted living today but otherwise is inconsistent in the history that he is able to provide. PFSH Medical History Anxiety and depression Bipolar disorder Chronic anemia Diabetes HTN (hypertension) Hypercholesterolemia Morbid obesity Neuropathy Rheumatoid arthritis RUQ abdominal pain Tobacco use Home Medications Acidophilus 2 tab PO DAILY 11/27/20 [History Last Taken 01/16/21] B12 Active 1,000 mcg PO DAILY 11/27/20 [History Last Taken 01/16/21] amitriptyline 75 mg PO QHS 11/27/20 [History Last Taken 01/14/21] aspirin 81 mg PO DAILY 11/27/20 [History Last Taken 01/16/21] atorvastatin 80 mg PO QHS 11/27/20 [History Last Taken 01/14/21] buspirone 5 mg PO BID 11/27/20 [History Last Taken 01/16/21] cholecalciferol (vitamin D3) [Vitamin D3] 50 mcg PO DAILY 11/27/20 [History Last Taken 01/16/21] duloxetine 60 mg PO QHS 11/27/20 [History Last Taken Unknown] ezetimibe 10 mg PO DAILY 11/27/20 [History Last Taken 01/16/21] ferrous sulfate 325 mg PO DAILY 11/27/20 [History Last Taken 01/16/21] insulin lispro See Protocol SUBCUT TID 11/27/20 [History Last Taken 01/16/21] leflunomide 10 mg PO DAILY 11/27/20 [History Last Taken 01/16/21] metoprolol tartrate 25 mg PO BID 11/27/20 [History Last Taken 01/16/21] omega 7-flh-shm-fish oil [Fish Oil] 1 cap PO BID 11/27/20 [History Last Taken 01/16/21] pregabalin 200 mg PO TID 11/27/20 [History Last Taken 01/16/21] quetiapine 50 mg PO BID 11/27/20 [History Last Taken 01/16/21] sertraline 50 mg PO DAILY 11/27/20 [History Last Taken 01/15/21] tamsulosin 0.4 mg PO QHS 11/27/20 [History Last Taken 01/14/21] Tresiba FlexTouch U-100 20 unit SUBCUT QHS 01/10/21 [History Last Taken Unknown] pantoprazole [Protonix] 40 mg PO BID #60 tab 01/15/21 [Rx Last Taken 01/16/21] amlodipine 10 mg PO DAILY 01/16/21 [History Last Taken 01/16/21] bupropion HCl 150 mg PO DAILY 01/16/21 [History Last Taken 01/16/21] metformin 500 mg PO BID 01/16/21 [History Last Taken 01/16/21] sucralfate 1 g PO ACHS 01/16/21 [History Last Taken 01/16/21] Allergy/AdvReac Type Severity Reaction Status Date / Time No Known Allergies Allergy Verified 01/16/21 12:27 Family History (Updated 01/11/21 @ 01:[address] Kanwal Russo MD) Mother Diabetes Father Diabetes Hypertension Social History housing: assisted living facility Smoking Status: Light Smoker (<10/day) alcohol intake: never substance use type: does not use ROS Constitutional Constitutional: Denies chills, fatigue, fever(s) or malaise Eyes Eyes: Denies blurry vision ENT HEENT: Denies headache(s) or nasal discharge Cardiovascular Cardiovascular: Denies chest pain, dyspnea on exertion or syncope Respiratory/Chest Respiratory/Chest: Denies cough, shortness of breath at rest or shortness of breath with exertion Gastrointestinal Gastrointestinal: Denies constipation, diarrhea, nausea or vomiting Genitourinary Genitourinary: Denies dysuria Neurologic Neurologic: Denies focal weakness, numbness or tremor(s) Psychiatric Psychiatric: Denies anxiety or depression Endocrine Endocrinology: Reports polyuria Vital Signs Vital Signs Vital Signs: 01/16/21 12:27 01/16/21 12:33 01/16/21 14:27 Temperature 99.1 F Temperature Source Oral Pulse Rate 114 H 121 H Respiratory Rate 28 H 33 H Respiratory Effort Normal Respiratory Pattern Normal Blood Pressure 172/104 H 188/101 H Blood Pressure Mean 126 130 Pulse Ox 92 94 Oxygen Delivery Method Room Air Room Air 01/16/21 16:00 01/16/21 17:20 Temperature Temperature Source Pulse Rate 110 H 112 H Respiratory Rate 15 16 Respiratory Effort Respiratory Pattern Blood Pressure 194/99 H 168/97 H Blood Pressure Mean 130 120 Pulse Ox 98 92 Oxygen Delivery Method Room Air Room Air Weight Weight: 288 lb 2.307 oz Body Mass Index (BMI) 42.5 Physical Exam Const alert and no apparent distress General Appearance: cooperative Orientation / Consciousness: oriented to person HEENT normocephalic Mouth: dry mucous membranes Eyes PERRL, EOMs intact bilaterally and conjunctivae normal Neck supple and no JVD Resp normal respiratory effort, no retractions, no use of accessory muscles and clear to auscultation bilaterally Auscultation: Negative for crackles, rales, rhonchi or wheezes Cardio regular rate, regular rhythm, S1 normal heart sound, S2 normal heart sound and no murmurs GI soft to palpation, non-tender and non-distended; Negative for hepatosplenomegaly Extremity no clubbing, cyanosis or edema Skin no rashes or lesions noted Neuro no focal motor deficits and no sensory deficits noted Psych affect normal Appearance: appropriate Results Lab / Micro Data Result Diagrams: 01/17/21 04:45 01/17/21 04:45 Labs: Laboratory Results - last 24 hr 01/16/21 12:34: WBC 16.8 H, RBC 4.22 L, Hgb 11.4 L, Hct 32.4 L, MCV 76.8 L D, MCH 27.0, MCHC 35.2, RDW Std Deviation 43.4, RDW Coeff of Nathalie 15.7 H, Plt Count 294, MPV 10.8, Immature Gran % (Auto) 0.800, Neut % (Auto) 87.8 H, Lymph % (Auto) 7.0 L, [place] % (Auto) 4.2, Eos % (Auto) 0.0, Baso % (Auto) 0.2, Absolute Neuts (auto) 14.7 H, Absolute Lymphs (auto) 1.18, Nucleated RBC % 0 01/16/21 12:34: Sodium 138, Potassium 4.7, Chloride 107, Carbon Dioxide 22.0, Anion Gap 9, BUN 20 H, Creatinine 2.17 H, Estim Creat Clear Calc 38.92, Est GFR (MDRD) Af Amer 41 L, Est GFR (MDRD) Non-Af 34 L, BUN/Creatinine Ratio 9.2 L, Glucose 509 H*, Calcium 8.5, Total Bilirubin 0.40, AST 59 H, ALT 27, Alkaline Phosphatase 162 H, Total Protein 8.0, Albumin 3.1 L, Globulin 4.9 H, Albumin/Globulin Ratio 0.6 L 01/16/21 12:34: Acetone Level SMALL H 01/16/21 12:34: Lactic Acid 1.9 01/16/21 15:23: Urine Color Yellow, Urine Clarity Clear, Urine pH 5.0, Ur Specific [place] 1.015, Urine Protein 30 H, Urine Glucose (UA) 1000 H, Urine Ketones 50 H, Urine Occult Blood 250 H, Urine Nitrite Negative, Urine Bilirubin Negative, Urine Urobilinogen Normal, Ur Leukocyte Esterase Negative, Urine RBC 0-5 SEEN, Urine WBC 0 SEEN, Ur Squamous Epith Cells 0 SEEN, Urine Bacteria 0 SEEN, Urine Mucus 0 SEEN 01/16/21 17:19: POC Glucose 427 H Micro: Microbiology 01/16/21 14:05 Nasal Secretion SARS-CoV-2 Antigen (Rapid) - Final ABG Data ABG results: ABG 01/16/21 13:27 Specimen Type SHELLEY VBG pH 7.35 VBG pO2 41 H VBG HCO3 20 L VBG Total CO2 21 L VBG O2 Sat (Calc) 74 H VBG Base Excess -5 L POC Mix VBG pCO2 Pt Tmp 36.6 L Radiology Impression Chest X-Ray 01/16/21 13:47 IMPRESSION: Cardiomegaly and bronchovascular prominence with the common clinical correlation for mild congestive changes, bronchitis or airway disease. Electronically Signed: Joseph Salguero MD at 14:32 EDT Tel , Service support , Assessment & Plan Assessment/Plan (1) Uncontrolled type 2 diabetes mellitus with hyperosmolar nonketotic hyperglycemia: PLAN: 1. Hyperosmolar nonketotic hyperglycemia/uncontrolled type 2 diabetes -Significant confusion and blood sugar is elevated. Unsure he was given too much correction based on the history that he had a blood sugar of 41 at the assisted living -We will obtain consult for nutrition to educate him may also need to provide education to be taken with him to the assisted living to help him make appropriate food choices -We will place him on long-acting insulin as well as mealtime insulin and sliding scale insulin adjustments as necessary -Continue with IV fluids -We will hold his Metformin secondary to his recent acute renal failure -Leukocytosis is likely reactive -Creatinine is improving from his recent admission 2. Anxiety/depression/bipolar disorder -Stable -We will continue all of his home meds as his current mental status is likely secondary to his hyperglycemia 3. HTN/HLD -We will continue to monitor his blood pressure and continue with his home medications including metoprolol and Norvasc -His HARITHA inhibitor was recently discontinued secondary to his renal failure 4. Rheumatoid arthritis/morbid obesity/GERD/tobacco dependence/chronic bilateral lower extremity edema wounds -These are all chronic medical conditions, wounds look okay did not appear infected -We will continue to monitor and make any medication adjustments as necessary DVT: Heparin Charges/Coding Visit Charges Inpatient E&M: 99092 Init Hosp L3
--- NOTE | 2021-01-16 17:41 | NURSING ---
PCU HYPEROSMOLAR NONKETONE HYPERGLYCEMIA DR CRAIG
[2021-01-16 18:35] LABS: Bedside Glucose 366 mg/dL (70-110)
[2021-01-16] MEDS: 0.9% Normal Saline 1,000 ML 150 ML IV (19:01)
[2021-01-16] MEDS: Metoprolol Tartrate 25 MG Tablet PO (20:26)
[2021-01-16] MEDS: QUEtiapine 25 MG Tablet 50 MG PO (20:26)
[2021-01-16] MEDS: busPIRone 5 MG Tablet PO (20:27)
[2021-01-16] MEDS: Amitriptyline 25 MG Tablet 75 MG PO (20:27)
[2021-01-16] MEDS: Tamsulosin HCl 0.4 MG Capsule PO (20:28)
[2021-01-16] MEDS: Heparin Injection (Vial) 5,000 UNIT/ML VIAL 5000 UNIT SC (20:28)
[2021-01-16] MEDS: MELATONIN 3 MG TABLET PO (20:36)
[2021-01-16] MEDS: Acetaminophen 325 MG Tablet 650 MG PO (20:36)
[2021-01-16] MEDS: Insulin Lispro 100 UNIT/ML INSULN.PEN SC (21:06)
[2021-01-16 21:55] LABS: Bedside Glucose 319 mg/dL (70-110)
[2021-01-16] MEDS: Ondansetron 4 MG/2 ML Vial IV (22:25)
[2021-01-16] MEDS: 0.9% Saline Lock 10 ML Syringe IV (22:25)
[2021-01-17] VITALS (11 sets, daily range): BP systolic 147–173; BP diastolic 83–92; PULSE 84–107; RESP 16–18; TEMP 36.3–36.8; O2SAT 94–97
[2021-01-17] MEDS: 0.9% Normal Saline 1,000 ML 150 ML IV (01:15)
--- NOTE | 2021-01-17 05:34 | NURSING ---
pt voided on floor staff had been in earlier to assist with urinal pt refused to use and would not stand to try to use bathroom. pt pulled attends down and voided on floor, pt resistant to bed linen change. changed sheets and bed exit on.
[2021-01-17 05:58] LABS: Absolute Lymphocyte Count 2.48 X10^3/uL (0.83-4.51); Absolute Neutrophil Count 8.3 X10^3/uL (2.0-7.7); Basophil# 0.06 X10^3/uL; Basophil% 0.5 % (0-1); Eosinophil# 0.05 X10^3/uL; Eosinophils% 0.4 % (0-5); Hematocrit 30.5 % (40-54); Hemoglobin 10.4 g/dL (13.0-16.5); Lymphocyte # 2.48 X10^3/ul (0.83-4.51); Lymphocyte % 21.1 % (19-41); Mean Corp Hgb Conc 34.1 g/dL (32-36); Mean Corpuscular Hgb 27.1 pg (27.0-32.0); Mean Corpuscular Volume 79.4 fL (80-94); Mean Platelet Vol. 10.9 fl (6.2-12.0); Monocyte# 0.89 X10^3/uL; Monocyte% 7.6 % (0-10); NRBC Flagged by Analyzer 0 % (0-5); Neutrophil # 8.26 X10^3/uL (2.7-7.7); Neutrophil % 70.1 % (47-70); Platelet Count 276 K/mm3 (150-450); RBC Distribution Width SD 45.9 fl (35.1-43.9); Red Blood Count 3.84 M/mm3 (4.6-6.2); White Blood Count 11.8 K/mm3 (4.4-11.0)
[2021-01-17 06:28] LABS: Anion Gap 9 (5-15); BUN 17 mg/dL (7-18); Calcium,Total 8.5 mg/dL (8.5-10.1); Chloride 114 mmol/L (98-107); EST Glomerular Filtration Rate 45 mL/min (>60); Est Glom Filt Rate - Afr Amer 54 mL/min (>60); Estimated Creatinine Clearance 49.67 ml/min; Glucose 260 mg/dL (74-106); Potassium 3.8 mmol/L (3.5-5.1); Sodium Level 143 mmol/L (136-145)
[2021-01-17] MEDS: Insulin Lispro 100 UNIT/ML INSULN.PEN SC ×3 (07:40→11:21)
[2021-01-17] MEDS: Aspirin 81 MG TAB.CHEW PO (07:42)
[2021-01-17] MEDS: Ferrous Sulfate 325 MG Tablet PO (07:42)
[2021-01-17] MEDS: Sertraline 50 MG Tablet PO (07:43)
[2021-01-17] MEDS: Cyanocobalamin 500 MCG Tablet 1000 MCG PO (07:43)
[2021-01-17] MEDS: Cholecalciferol (VIT D3) 25 MCG TABLET (1,000 UNITS) 50 MCG PO (07:43)
[2021-01-17] MEDS: Pantoprazole Sodium 40 MG Tablet PO (07:43)
[2021-01-17] MEDS: buPROPion (XL) 150 MG TABLET.XL PO (07:43)
[2021-01-17] MEDS: amLODIPine 10 MG Tablet PO (07:44)
[2021-01-17] MEDS: Metoprolol Tartrate 25 MG Tablet PO (07:44)
[2021-01-17] MEDS: Ezetimibe 10 MG Tablet PO (07:44)
[2021-01-17] MEDS: QUEtiapine 25 MG Tablet 50 MG PO (07:44)
[2021-01-17] MEDS: busPIRone 5 MG Tablet PO (07:45)
[2021-01-17] MEDS: Leflunomide 10 MG TABLET PO (07:45)
[2021-01-17 08:51] LABS: Bedside Glucose 278 mg/dL (70-110)
--- NOTE | 2021-01-17 10:11 | PN.HOSP_ITS ---
Subjective Subjective Feels better today. Still little bit fatigued but arousable Objective Data Objective Data Vital Signs: Vital Signs Temp Pulse Resp BP Pulse Ox 97.7 F L 93 16 173/89 H 94 01/17/21 09:42 01/17/21 09:42 01/17/21 09:42 01/17/21 09:42 01/17/21 09:42 Oxygen Delivery Method Room Air Weight: 283 lb 4.704 oz Body Mass Index (BMI) 41.8 Intake & Output: Intake and Output for Last 24 Hours 01/16/21 01/17/21 01/18/21 03:59 03:59 03:59 Intake Total 2935 / 2935 960 / 960 Output Total 300 / 300 Balance 2635 / 2635 960 / 960 Lab / Micro Data Result Diagrams: 01/17/21 04:45 01/17/21 04:45 Labs: Laboratory Results - last 24 hr 01/16/21 12:34: WBC 16.8 H, RBC 4.22 L, Hgb 11.4 L, Hct 32.4 L, MCV 76.8 L D, MCH 27.0, MCHC 35.2, RDW Std Deviation 43.4, RDW Coeff of Nathalie 15.7 H, Plt Count 294, MPV 10.8, Immature Gran % (Auto) 0.800, Neut % (Auto) 87.8 H, Lymph % (Auto) 7.0 L, [place] % (Auto) 4.2, Eos % (Auto) 0.0, Baso % (Auto) 0.2, Absolute Neuts (auto) 14.7 H, Absolute Lymphs (auto) 1.18, Nucleated RBC % 0 01/16/21 12:34: Sodium 138, Potassium 4.7, Chloride 107, Carbon Dioxide 22.0, Anion Gap 9, BUN 20 H, Creatinine 2.17 H, Estim Creat Clear Calc 38.92, Est GFR (MDRD) Af Amer 41 L, Est GFR (MDRD) Non-Af 34 L, BUN/Creatinine Ratio 9.2 L, Glucose 509 H*, Calcium 8.5, Total Bilirubin 0.40, AST 59 H, ALT 27, Alkaline Phosphatase 162 H, Total Protein 8.0, Albumin 3.1 L, Globulin 4.9 H, Albumin/Globulin Ratio 0.6 L 01/16/21 12:34: Acetone Level SMALL H 01/16/21 12:34: Lactic Acid 1.9 01/16/21 15:23: Urine Color Yellow, Urine Clarity Clear, Urine pH 5.0, Ur Specific [place] 1.015, Urine Protein 30 H, Urine Glucose (UA) 1000 H, Urine Ketones 50 H, Urine Occult Blood 250 H, Urine Nitrite Negative, Urine Bilirubin Negative, Urine Urobilinogen Normal, Ur Leukocyte Esterase Negative, Urine RBC 0-5 SEEN, Urine WBC 0 SEEN, Ur Squamous Epith Cells 0 SEEN, Urine Bacteria 0 SEEN, Urine Mucus 0 SEEN 01/16/21 17:19: POC Glucose 427 H 01/16/21 18:24: POC Glucose 366 H 01/16/21 21:05: POC Glucose 319 H 01/17/21 04:45: Sodium 143, Potassium 3.8, Chloride 114 H, Carbon Dioxide 20.0 L , Anion Gap 9, BUN 17, Creatinine 1.70 H, Estim Creat Clear Calc 49.67, Est GFR (MDRD) Af Amer 54 L, Est GFR (MDRD) Non-Af 45 L, BUN/Creatinine Ratio 10.0, Glucose 260 H, Calcium 8.5 01/17/21 04:45: WBC 11.8 H, RBC 3.84 L, Hgb 10.4 L, Hct 30.5 L, MCV 79.4 L, MCH 27.1, MCHC 34.1, RDW Std Deviation 45.9 H, RDW Coeff of Nathalie 16.0 H, Plt Count 276, MPV 10.9, Immature Gran % (Auto) 0.300, Neut % (Auto) 70.1 H, Lymph % (Auto) 21.1, [place] % (Auto) 7.6, Eos % (Auto) 0.4, Baso % (Auto) 0.5, Absolute Neuts (auto) 8.3 H, Absolute Lymphs (auto) 2.48, Nucleated RBC % 0 01/17/21 07:35: POC Glucose 278 H Micro: Microbiology 01/16/21 14:05 Nasal Secretion SARS-CoV-2 Antigen (Rapid) - Final ABG Data ABG results: ABG 01/16/21 13:27 Specimen Type SHELLEY VBG pH 7.35 VBG pO2 41 H VBG HCO3 20 L VBG Total CO2 21 L VBG O2 Sat (Calc) 74 H VBG Base Excess -5 L POC Mix VBG pCO2 Pt Tmp 36.6 L Radiography Diagnostic Testing: Radiology Impression Chest X-Ray 01/16/21 13:47 IMPRESSION: Cardiomegaly and bronchovascular prominence with the common clinical correlation for mild congestive changes, bronchitis or airway disease. Electronically Signed: Joseph Salguero MD at 14:32 EDT Tel , Service support , Physical Exam Const alert and no apparent distress General Appearance: cooperative Orientation / Consciousness: oriented to person HEENT normocephalic Eyes PERRL, EOMs intact bilaterally and conjunctivae normal Neck supple and no JVD Resp normal respiratory effort, no retractions, no use of accessory muscles and clear to auscultation bilaterally Auscultation: Negative for crackles, rales, rhonchi or wheezes Cardio regular rate, regular rhythm, S1 normal heart sound, S2 normal heart sound and no murmurs GI soft to palpation, non-tender and non-distended; Negative for hepatosplenomegaly Extremity no clubbing, cyanosis or edema Skin no rashes or lesions noted Neuro no focal motor deficits and no sensory deficits noted Psych affect normal Appearance: appropriate Assessment & Plan Assessment/Plan (1) Uncontrolled type 2 diabetes mellitus with hyperosmolar nonketotic hyperglycemia: PLAN: 1. Hyperosmolar nonketotic hyperglycemia/uncontrolled type 2 diabetes -Significant confusion and blood sugar is elevated. Unsure he was given too much correction based on the history that he had a blood sugar of 41 at the as sisted living -We will obtain consult for nutrition to educate him may also need to provide education to be taken with him to the assisted living to help him make appropriate food choices -We will place him on long-acting insulin as well as mealtime insulin and sliding scale insulin adjustments as necessary -Continue with IV fluids -We will hold his Metformin secondary to his recent acute renal failure -Leukocytosis resolved with fluids -Creatinine is improving from his recent admission 2. Anxiety/depression/bipolar disorder -Stable -We will continue all of his home meds as his current mental status is likely secondary to his hyperglycemia 3. HTN/HLD -We will continue to monitor his blood pressure and continue with his home medications including metoprolol and Norvasc -His HARITHA inhibitor was recently discontinued secondary to his renal failure -He is on hydralazine as needed, and will make blood pressure adjustments as necessary 4. Rheumatoid arthritis/morbid obesity/GERD/tobacco dependence/chronic bilateral lower extremity edema wounds -These are all chronic medical conditions, wounds look okay did not appear infected -We will continue to monitor and make any medication adjustments as necessary DVT: Heparin Charges/Coding Visit Charges Inpatient E&M: 52247 Subs Hosp L2
[2021-01-17] MEDS: Insulin Lispro 100 UNIT/ML INSULN.PEN 10 UNIT SC ×2 (11:21→17:15)
[2021-01-17] MEDS: Sucralfate 1 GM Tablet PO ×2 (11:27→16:03)
[2021-01-17 11:45] LABS: Bedside Glucose 248 mg/dL (70-110)
[2021-01-17] MEDS: 0.9% Normal Saline 1,000 ML 100 ML IV ×2 (12:36→23:43)
--- NOTE | 2021-01-17 13:27 | CASEMGMT ---
Pt is here from [facility]. SW called [facility], spoke w/Libby, it is anticipated pt can return when ready. SW faxed updates. No additional COVID testing needed at this time. Green sheet placed on chart w/transport and COVID forms in anticipation of weekend discharge. ALTAGRACIA [place]
--- NOTE | 2021-01-17 14:00 | CASEMGMT ---
APRIL PATEL chart review: Patient was admitted 01/11-01/15/21 for Abd pain, ANDRE, hyperkalemia, and hypoglycemia. Patient was discharged to [facility]. Patient returned to [facility] ED for hyperosmolar nonketotic hyperglycemia. Patient was eating his choice of foods and not following carb controlled diet. Patient has follow-up appts to be scheduled by [facility]. Scripts were sent to [facility] and med managed by [facility]. Patient to return to [facility] with coordination with [facility] staff to reeducate and monitor patient's diet.
[2021-01-17] MEDS: Heparin Injection (Vial) 5,000 UNIT/ML VIAL 5000 UNIT SC (14:19)
--- NOTE | 2021-01-17 15:25 | CASEMGMT ---
Palliative screening tool completed for L[facility] 3. Patient does not meets criteria for palliative consult at this time.
[2021-01-17] MEDS: Ondansetron 4 MG/2 ML Vial IV (16:01)
[2021-01-17] MEDS: Omega-3 Acid Ethyl Esters 1 GM Capsule PO (16:04)
[2021-01-17 16:25] LABS: Bedside Glucose 88 mg/dL (70-110)
--- NOTE | 2021-01-17 17:35 | MRI_ITS ---
STUDY: MRI BRAIN WITHOUT CONTRAST REASON FOR EXAM: Male, 55 years old. PARTIAL SCAN ONLYro cva TECHNIQUE: Standardized multiplanar fat and water weighted pulse sequences were obtained. COMPARISON: None. FINDINGS: There is excessive motion on all sequences significantly limiting quality of the exam. While significant mass lesion, hemorrhage or mass effect or severe large area of ischemia is excluded, this exam should otherwise be considered nondiagnostic. Parenchymal volume appears to be decreased with mild diffuse prominence of extra-axial spaces and bilateral ventricles. There appears to be scattered areas of increased FLAIR signal in the periventricular white matter however this may be artifactual. MRI/Brain without Contrast IMPRESSION: While significant mass lesion, hemorrhage or mass effect or severe, large area of ischemia is excluded, this exam should otherwise be considered nondiagnostic due to patient motion on all sequences. Electronically Signed: Akhil Lynne DO at 20:09 EDT Tel , Service support ,
[2021-01-17] MEDS: LORazepam 2 MG/ML Syringe 0.5 MG IV ×2 (18:26→19:06)
--- NOTE | 2021-01-17 18:26 | NURSING ---
pt up in chair and refused to get back into bed. pt lifted back into bed. notified and ativan given . pt calm in bed and went to mri
--- NOTE | 2021-01-17 19:23 | CT_ITS ---
INDICATION: confusion EXAMINATION: CT BRAIN - CT Head or Brain W/O Contrast Injection TECHNIQUE: Multiple axial images were obtained of the head without intravenous contrast. A radiation dose optimization technique was used for this scan. IV Contrast dosage and agent: None. COMPARISON: FINDINGS: BRAIN PARENCHYMA: No intra- or extra-axial hemorrhage. No evidence of acute infarct. No intracranial mass or mass effect. There is preservation of the avila/white matter interface. Posterior fossa structures are unremarkable. CSF SPACES: Appropriate for age. No hydrocephalus. Basal cisterns are patent. CALVARIUM, SKULL BASE, PARANASAL SINUSES AND MASTOID AIR CELLS: Right frontal sinuses are almost completely opacified. No underlying sinus wall sclerosis or erosion. There is some mild peripheral mucosal thickening involving the inferior, posterior maxillary sinuses. Ethmoid air cells, sphenoid sinuses and mastoid air cells are all clear. No discrete lytic or blastic abnormalities. ORBITS: Both globes, extraocular muscles, optic nerves and retrobulbar fat appear unremarkable. ASPECTS Score for Acute Strokes: 10 CT/Brain/Head without Contrast IMPRESSION: No acute intracranial pathology. Paranasal sinus disease as above. Electronically Signed: Akhil Lynne DO at 20:02 EDT Tel , Service support ,
--- NOTE | 2021-01-17 19:25 | RAD.NOTE ---
Attempted MRI brain on patient. Pt was medicated x 2. Pt still moving, trying to climb out of scanner. MRI aborted.
--- NOTE | 2021-01-17 20:12 | PCS.PANDOC ---
PANDEMIC DOCUMENTATION INITIATED: Date: 12/30/2020 Time: 190
[2021-01-17 22:30] LABS: Bedside Glucose 90 mg/dL (70-110)
[2021-01-18] VITALS (12 sets, daily range): BP systolic 125–171; BP diastolic 72–92; PULSE 81–123; RESP 16–18; TEMP 36.4–36.9; O2SAT 97–98
--- NOTE | 2021-01-18 00:10 | NURSING ---
Addendum entered by Valerie Hernandez 01/18/21 00:29: Called security to come up. Security arrived and spoke w/ pt. This RN, ED RN, and security assisted pt back to bed. BABY NURSE called regarding pt refusing his HS meds and not cooperating w/ care now. Original Note: This RN and DREDGE OPERATOR assisted pt up to bathroom d/t pt climbing out of bed. After pt was done using the bathroom, he pulled up his attends and sat back down on the toilet. Despite lengthy efforts to convince pt to stand up and walk back to bed, pt adamantly refused to get back into bed because he didn't feel like it. When asked why, pt stated, Because. Multiple staff members attempted to assist pt to stand up and get back into bed, each time pt refusing and closing his eyes. Several RNs attempted to assist pt to stand up and get into wheelchair to wheel him over to the bed but pt started swinging at staff and yelling to stop. Pt still sitting on toilet, this RN sitting in room w/ him for safety. APRIL Josue.
[2021-01-18 00:31] LABS: Bedside Glucose 78 mg/dL (70-110)
[2021-01-18] MEDS: Haloperidol Lactate 5 MG/ML Vial 2 MG IV ×2 (00:49→01:11)
[2021-01-18] MEDS: 0.9% Saline Lock 10 ML Syringe IV ×2 (00:50→01:11)
[2021-01-18] MEDS: hydrALAZINE 20 MG/ML Vial 10 MG IV (04:25)
[2021-01-18 05:21] LABS: Bedside Glucose 145 mg/dL (70-110)
[2021-01-18 06:19] LABS: Absolute Lymphocyte Count 2.29 X10^3/uL (0.83-4.51); Absolute Neutrophil Count 6.9 X10^3/uL (2.0-7.7); Basophil# 0.06 X10^3/uL; Basophil% 0.6 % (0-1); Eosinophil# 0.19 X10^3/uL; Eosinophils% 1.8 % (0-5); Hemoglobin 10.5 g/dL (13.0-16.5); Lymphocyte # 2.29 X10^3/ul (0.83-4.51); Lymphocyte % 22.3 % (19-41); Mean Corpuscular Hgb 27.6 pg (27.0-32.0); Mean Corpuscular Volume 78.9 fL (80-94); Monocyte# 0.86 X10^3/uL; Monocyte% 8.4 % (0-10); NRBC Flagged by Analyzer 0 % (0-5); Neutrophil # 6.86 X10^3/uL (2.7-7.7); Neutrophil % 66.7 % (47-70); Platelet Count 267 K/mm3 (150-450); RBC Distribution Width SD 45.5 fl (35.1-43.9); White Blood Count 10.3 K/mm3 (4.4-11.0)
[2021-01-18 06:44] LABS: Anion Gap 8 (5-15); BUN 14 mg/dL (7-18); BUN/Creat Ratio 11.5 RATIO (10-20); Calcium,Total 8.1 mg/dL (8.5-10.1); Chloride 114 mmol/L (98-107); Creatinine, Serum 1.22 mg/dL (0.70-1.30); EST Glomerular Filtration Rate 66 mL/min (>60); Est Glom Filt Rate - Afr Amer 79 mL/min (>60); Estimated Creatinine Clearance 69.22 ml/min; Glucose 185 mg/dL (74-106); Potassium 3.4 mmol/L (3.5-5.1); Sodium Level 144 mmol/L (136-145)
[2021-01-18] MEDS: Insulin Lispro 100 UNIT/ML INSULN.PEN SC ×4 (07:57→22:04)
[2021-01-18 08:06] LABS: Bedside Glucose 217 mg/dL (70-110)
[2021-01-18 12:16] LABS: Bedside Glucose 170 mg/dL (70-110)
[2021-01-18] MEDS: Heparin Injection (Vial) 5,000 UNIT/ML VIAL 5000 UNIT SC ×2 (14:11→22:04)
[2021-01-18] MEDS: Metoprolol Tartrate 50 MG Tablet PO ×2 (14:37→21:58)
[2021-01-18] MEDS: QUEtiapine 25 MG Tablet 50 MG PO (14:37)
[2021-01-18] MEDS: amLODIPine 10 MG Tablet PO (14:37)
[2021-01-18] MEDS: busPIRone 5 MG Tablet PO ×2 (14:39→21:59)
[2021-01-18] MEDS: Aspirin 81 MG TAB.CHEW PO (14:40)
[2021-01-18] MEDS: Pantoprazole Sodium 40 MG Tablet PO ×2 (14:40→21:59)
[2021-01-18] MEDS: Sertraline 50 MG Tablet PO (14:41)
[2021-01-18] MEDS: Ezetimibe 10 MG Tablet PO (14:41)
[2021-01-18] MEDS: buPROPion (XL) 150 MG TABLET.XL PO (14:42)
[2021-01-18] MEDS: Leflunomide 10 MG TABLET PO (14:45)
--- NOTE | 2021-01-18 14:46 | NURSING ---
Patient agreeable to taking some of his morning medications at this time
--- NOTE | 2021-01-18 14:54 | PCM.PN.HOSP ---
Subjective Subjective He continues to have waxing and waning alertness. This morning he did not answer any of my questions however this afternoon he told the nurse that he knows he is in the hospital. Attempted to obtain a MRI secondary to strange behaviors and confusion however even with a milligram of Ativan he was unable to tolerate being in the MRI machine. Objective Data Objective Data Vital Signs: Vital Signs Temp Pulse Resp BP Pulse Ox 97.9 F 123 H 16 148/82 H 97 01/18/21 10:10 01/18/21 14:37 01/18/21 10:10 01/18/21 10:10 01/18/21 10:10 Oxygen Delivery Method Room Air Weight: 283 lb 4.704 oz Body Mass Index (BMI) 41.8 Intake & Output: Intake and Output for Last 24 Hours 01/17/21 01/18/21 01/19/21 03:59 03:59 03:59 Intake Total 2935 / 2935 2551.67 / 2551.67 186.67 / 186.67 Output Total 300 / 300 750 / 750 1999 / 1999 Balance 2635 / 2635 1801.67 / 1801.67 -1813.33 / -1813.33 Lab / Micro Data Result Diagrams: 01/18/21 05:46 01/18/21 05:46 Labs: Laboratory Results - last 24 hr 01/17/21 15:56: POC Glucose 88 01/17/21 22:15: POC Glucose 90 01/17/21 23:53: POC Glucose 78 01/18/21 04:14: POC Glucose 145 H 01/18/21 05:46: WBC 10.3, RBC 3.80 L, Hgb 10.5 L, Hct 30.0 L, MCV 78.9 L, MCH 27.6, MCHC 35.0, RDW Std Deviation 45.5 H, RDW Coeff of Nathalie 16.0 H, Plt Count 267, MPV 10.0, Immature Gran % (Auto) 0.200, Neut % (Auto) 66.7, Lymph % (Auto) 22.3, [place] % (Auto) 8.4, Eos % (Auto) 1.8, Baso % (Auto) 0.6, Absolute Neuts (auto) 6.9, Absolute Lymphs (auto) 2.29, Nucleated RBC % 0 01/18/21 05:46: Sodium 144, Potassium 3.4 L, Chloride 114 H, Carbon Dioxide 22.0, Anion Gap 8, BUN 14, Creatinine 1.22, Estim Creat Clear Calc 69.22, Est GFR (MDRD) Af Amer 79, Est GFR (MDRD) Non-Af 66, BUN/Creatinine Ratio 11.5, Glucose 185 H, Calcium 8.1 L 01/18/21 07:56: POC Glucose 217 H 01/18/21 11:45: POC Glucose 170 H Micro: Microbiology 01/16/21 14:05 Nasal Secretion SARS-CoV-2 Antigen (Rapid) - Final Radiography Diagnostic Testing: Radiology Impression Brain MRI 01/17/21 17:35 IMPRESSION: While significant mass lesion, hemorrhage or mass effect or severe, large area of ischemia is excluded, this exam should otherwise be considered nondiagnostic due to patient motion on all sequences. Electronically Signed: Akhil Lynne DO at 20:09 EDT Tel , Service support , Brain CT 01/17/21 19:23 IMPRESSION: No acute intracranial pathology. Paranasal sinus disease as above. Electronically Signed: Akhil Lynne DO at 20:02 EDT Tel , Service support , Physical Exam Const no apparent distress General Appearance: cooperative Orientation / Consciousness: oriented to person and lethargic HEENT normocephalic Eyes PERRL, EOMs intact bilaterally and conjunctivae normal Neck supple and no JVD Resp normal respiratory effort, no retractions, no use of accessory muscles and clear to auscultation bilaterally Auscultation: Negative for crackles, rales, rhonchi or wheezes Cardio regular rate, regular rhythm, S1 normal heart sound, S2 normal heart sound and no murmurs GI soft to palpation, non-tender and non-distended; Negative for hepatosplenomegaly Extremity no clubbing, cyanosis or edema Skin no rashes or lesions noted Neuro no focal motor deficits and no sensory deficits noted Psych Appearance: appropriate Mood & Affect: flat affect Assessment & Plan Assessment/Plan (1) Uncontrolled type 2 diabetes mellitus with hyperosmolar nonketotic hyperglycemia: PLAN: 1. Hyperosmolar nonketotic hyperglycemia/uncontrolled type 2 diabetes/metabolic versus toxic encephalopathy -Significant confusion and blood sugar is elevated. Unsure he was given too much correction based on the history that he had a blood sugar of 41 at the assisted living -We will obtain consult for nutrition to educate him may also need to provide education to be taken with him to the assisted living to help him make appropriate food choices -We will place him on long-acting insulin as well as mealtime insulin and sliding scale insulin adjustments as necessary -Continue with IV fluids -We will hold his Metformin secondary to his recent acute renal failure -Leukocytosis is likely reactive -Creatinine is improving from his recent admission -We will decrease his Seroquel secondary to confusion, was hoping that with the improvement in his blood sugar his confusion would resolve however it has not. Attempted to get an MRI last night and he was little bit agitated and would not follow instructions. He was given a milligram of Ativan to help and he still refused. CT of the head was unremarkable therefore will proceed with an EEG. -UA was unremarkable and chest x-ray was normal with no signs of pneumonia 2. Anxiety/depression/bipolar disorder -Stable -We will continue all of his home meds as his current mental status is likely secondary to his hyperglycemia 3. HTN/HLD -We will continue to monitor his blood pressure and continue with his home medications including metoprolol and Norvasc -His HARITHA inhibitor was recently discontinued secondary to his renal failure 4. Rheumatoid arthritis/morbid obesity/GERD/tobacco dependence/chronic bilateral lower extremity edema wounds -These are all chronic medical conditions, wounds look okay did not appear infected -We will continue to monitor and make any medication adjustments as necessary DVT: Heparin Charges/Coding Visit Charges Inpatient E&M: 29720 Subs Hosp L2
[2021-01-18 17:36] LABS: Bedside Glucose 175 mg/dL (70-110)
[2021-01-18] MEDS: Amitriptyline 25 MG Tablet 75 MG PO (21:59)
[2021-01-18] MEDS: DULoxetine Hcl 60 MG Capsule PO (21:59)
[2021-01-18] MEDS: Atorvastatin Calcium 80 MG Tablet PO (22:02)
[2021-01-18] MEDS: Sucralfate 1 GM Tablet PO (22:02)
[2021-01-18] MEDS: QUEtiapine 25 MG Tablet PO (22:02)
[2021-01-18] MEDS: Tamsulosin HCl 0.4 MG Capsule PO (22:02)
[2021-01-18 22:11] LABS: Bedside Glucose 162 mg/dL (70-110)
[2021-01-19] VITALS (10 sets, daily range): BP systolic 138–174; BP diastolic 75–92; PULSE 76–103; RESP 15–18; TEMP 35.9–36.7; O2SAT 95–99
[2021-01-19] MEDS: Heparin Injection (Vial) 5,000 UNIT/ML VIAL 5000 UNIT SC ×3 (06:16→20:19)
[2021-01-19] MEDS: Sucralfate 1 GM Tablet PO ×2 (06:16→16:36)
[2021-01-19 06:36] LABS: Absolute Lymphocyte Count 2.37 X10^3/uL (0.83-4.51); Absolute Neutrophil Count 5.5 X10^3/uL (2.0-7.7); Basophil# 0.05 X10^3/uL; Basophil% 0.6 % (0-1); Eosinophil# 0.29 X10^3/uL; Eosinophils% 3.3 % (0-5); Hematocrit 31.1 % (40-54); Hemoglobin 10.7 g/dL (13.0-16.5); Lymphocyte # 2.37 X10^3/ul (0.83-4.51); Lymphocyte % 26.7 % (19-41); Mean Corp Hgb Conc 34.4 g/dL (32-36); Mean Corpuscular Hgb 27.2 pg (27.0-32.0); Mean Corpuscular Volume 78.9 fL (80-94); Mean Platelet Vol. 10.6 fl (6.2-12.0); Monocyte# 0.64 X10^3/uL; Monocyte% 7.2 % (0-10); NRBC Flagged by Analyzer 0 % (0-5); Neutrophil # 5.48 X10^3/uL (2.7-7.7); Neutrophil % 61.7 % (47-70); Platelet Count 293 K/mm3 (150-450); RBC Distribution Width CV 16.1 % (11.6-14.6); RBC Distribution Width SD 45.8 fl (35.1-43.9); Red Blood Count 3.94 M/mm3 (4.6-6.2); White Blood Count 8.9 K/mm3 (4.4-11.0)
[2021-01-19 07:09] LABS: Anion Gap 7 (5-15); BUN 16 mg/dL (7-18); BUN/Creat Ratio 14.2 RATIO (10-20); Calcium,Total 8.2 mg/dL (8.5-10.1); Chloride 109 mmol/L (98-107); Creatinine, Serum 1.13 mg/dL (0.70-1.30); EST Glomerular Filtration Rate 72 mL/min (>60); Est Glom Filt Rate - Afr Amer 87 mL/min (>60); Estimated Creatinine Clearance 74.73 ml/min; Glucose 111 mg/dL (74-106); Potassium 2.9 mmol/L (3.5-5.1); Sodium Level 140 mmol/L (136-145)
[2021-01-19] MEDS: Leflunomide 10 MG TABLET PO (08:21)
[2021-01-19] MEDS: Omega-3 Acid Ethyl Esters 1 GM Capsule PO ×2 (08:22→16:36)
[2021-01-19] MEDS: Ezetimibe 10 MG Tablet PO (08:22)
[2021-01-19] MEDS: Insulin Lispro 100 UNIT/ML INSULN.PEN 10 UNIT SC ×2 (08:23→16:36)
[2021-01-19] MEDS: busPIRone 5 MG Tablet PO ×2 (08:24→20:13)
[2021-01-19] MEDS: Pantoprazole Sodium 40 MG Tablet PO ×2 (08:24→20:14)
[2021-01-19] MEDS: Cholecalciferol (VIT D3) 25 MCG TABLET (1,000 UNITS) 50 MCG PO (08:24)
[2021-01-19] MEDS: Ferrous Sulfate 325 MG Tablet PO (08:25)
[2021-01-19] MEDS: amLODIPine 10 MG Tablet PO (08:25)
[2021-01-19] MEDS: Aspirin 81 MG TAB.CHEW PO (08:25)
[2021-01-19] MEDS: QUEtiapine 25 MG Tablet PO ×2 (08:26→20:13)
[2021-01-19] MEDS: Cyanocobalamin 500 MCG Tablet 1000 MCG PO (08:27)
[2021-01-19] MEDS: Sertraline 50 MG Tablet PO (08:27)
--- NOTE | 2021-01-19 10:15 | CPS ---
This RT entered room to perform EEG on pt. Introduced myself and what I was there to do. Pt stated he did not want to have this done. This RT asked if he has ever had this done and pt stated he has. Pt continued to say no to having the testing done. change management lead Donell made aware and will relay it to Dr. Robertson.
[2021-01-19 12:05] LABS: Bedside Glucose 85 mg/dL (70-110)
--- NOTE | 2021-01-19 13:59 | PCM.PN.HOSP ---
Subjective Subjective Little bit more alert today more communicative. Knows he is in the hospital. He did not tolerate the MRI and he refused to have the EEG done today. We will continue to monitor as I decrease his Seroquel from 50 twice daily to 25 twice daily to see if this makes a difference. Objective Data Objective Data Vital Signs: Vital Signs Temp Pulse Resp BP Pulse Ox 96.6 F L 79 16 138/77 H 96 01/19/21 09:50 01/19/21 09:50 01/19/21 09:50 01/19/21 09:50 01/19/21 09:50 Oxygen Delivery Method Room Air Weight: 283 lb 4.704 oz Body Mass Index (BMI) 41.8 Intake & Output: Intake and Output for Last 24 Hours 01/18/21 01/19/21 01/20/21 03:59 03:59 03:59 Intake Total 2551.67 / 2551.67 826.67 / 826.67 400 / 400 Output Total 750 / 750 2700 / 2700 200 / 200 Balance 1801.67 / 1801.67 -1873.33 / -1873.33 200 / 200 Lab / Micro Data Result Diagrams: 01/19/21 05:17 01/19/21 05:17 Labs: Laboratory Results - last 24 hr 01/18/21 17:27: POC Glucose 175 H 01/18/21 21:53: POC Glucose 162 H 01/19/21 05:17: WBC 8.9, RBC 3.94 L, Hgb 10.7 L, Hct 31.1 L, MCV 78.9 L, MCH 27.2, MCHC 34.4, RDW Std Deviation 45.8 H, RDW Coeff of Nathalie 16.1 H, Plt Count 293, MPV 10.6, Immature Gran % (Auto) 0.500, Neut % (Auto) 61.7, Lymph % (Auto) 26.7, [place] % (Auto) 7.2, Eos % (Auto) 3.3, Baso % (Auto) 0.6, Absolute Neuts (auto) 5.5, Absolute Lymphs (auto) 2.37, Nucleated RBC % 0 01/19/21 05:17: Sodium 140, Potassium 2.9 L, Chloride 109 H, Carbon Dioxide 24.0, Anion Gap 7, BUN 16, Creatinine 1.13, Estim Creat Clear Calc 74.73, Est GFR (MDRD) Af Amer 87, Est GFR (MDRD) Non-Af 72, BUN/Creatinine Ratio 14.2, Glucose 111 H, Calcium 8.2 L 01/19/21 11:56: POC Glucose 85 Micro: Microbiology 01/16/21 14:05 Nasal Secretion SARS-CoV-2 Antigen (Rapid) - Final Physical Exam Const alert and no apparent distress General Appearance: cooperative Orientation / Consciousness: oriented to person and oriented to place HEENT normocephalic Eyes PERRL, EOMs intact bilaterally and conjunctivae normal Neck supple and no JVD Resp normal respiratory effort, no retractions, no use of accessory muscles and clear to auscultation bilaterally Auscultation: Negative for crackles, rales, rhonchi or wheezes Cardio regular rate, regular rhythm, S1 normal heart sound, S2 normal heart sound and no murmurs GI soft to palpation, non-tender and non-distended; Negative for hepatosplenomegaly Extremity no clubbing, cyanosis or edema Skin no rashes or lesions noted Neuro no focal motor deficits and no sensory deficits noted Psych Appearance: appropriate Mood & Affect: flat affect Assessment & Plan Assessment/Plan (1) Uncontrolled type 2 diabetes mellitus with hyperosmolar nonketotic hyperglycemia: PLAN: 1. Hyperosmolar nonketotic hyperglycemia/uncontrolled type 2 diabetes/metabolic versus toxic encephalopathy -Significant confusion and blood sugar is elevated. Unsure he was given too much correction based on the history that he had a blood sugar of 41 at the assisted living -We will obtain consult for nutrition to educate him may also need to provide education to be taken with him to the assisted living to help him make appropriate food choices -We will place him on long-acting insulin as well as mealtime insulin and sliding scale insulin adjustments as necessary -We will hold his Metformin secondary to his recent acute renal failure -Leukocytosis is likely reactive, UA and chest x-ray were unremarkable -Creatinine is improving from his recent admission -We will decrease his Seroquel secondary to confusion, was hoping that with the improvement in his blood sugar his confusion would resolve however it has not. Attempted to get an MRI last night and he was little bit agitated and would not follow instructions. He was given a milligram of Ativan to help and he still refused. CT of the head was unremarkable, and he refused to allow any EEG. We will continue to monitor the recent adjustment of Seroquel -UA was unremarkable and chest x-ray was normal with no signs of pneumonia 2. Anxiety/depression/bipolar disorder -Stable -We will continue all of his home meds as his current mental status is likely secondary to his hyperglycemia 3. HTN/HLD -We will continue to monitor his blood pressure and continue with his home medications including metoprolol and Norvasc -His HARITHA inhibitor was recently discontinued secondary to his renal failure 4. Rheumatoid arthritis/morbid obesity/GERD/tobacco dependence/chronic bilateral lower extremity edema wounds -These are all chronic medical conditions, wounds look okay did not appear infected -We will continue to monitor and make any medication adjustments as necessary DVT: Heparin Charges/Coding Visit Charges Inpatient E&M: 26673 Subs Hosp L2
[2021-01-19] MEDS: Potassium Chloride Oral Tablet 20 MEQ 60 MEQ PO (14:31)
[2021-01-19 14:50] LABS: Magnesium 1.5 mg/dL (1.6-2.6); Phosphorus 3.5 mg/dL (2.5-4.9)
[2021-01-19 16:46] LABS: Bedside Glucose 125 mg/dL (70-110)
[2021-01-19] MEDS: Amitriptyline 25 MG Tablet 75 MG PO (20:13)
[2021-01-19] MEDS: Metoprolol Tartrate 50 MG Tablet PO (20:13)
[2021-01-19] MEDS: DULoxetine Hcl 60 MG Capsule PO (20:13)
[2021-01-19] MEDS: Atorvastatin Calcium 80 MG Tablet PO (20:14)
[2021-01-19] MEDS: Tamsulosin HCl 0.4 MG Capsule PO (20:21)
[2021-01-19 22:16] LABS: Bedside Glucose 118 mg/dL (70-110)
[2021-01-20] VITALS (11 sets, daily range): BP systolic 117–155; BP diastolic 66–93; PULSE 74–91; RESP 15–18; TEMP 36.7–37.1; O2SAT 94–98
--- NOTE | 2021-01-20 05:51 | NURSING ---
PT HAS BEEN AWAKE, ALERT TO SELF & PLACE WITH [employer] DEME[employer]OR THIS SHIFT
[2021-01-20 06:23] LABS: Absolute Lymphocyte Count 1.99 X10^3/uL (0.83-4.51); Absolute Neutrophil Count 5.5 X10^3/uL (2.0-7.7); Basophil# 0.06 X10^3/uL; Basophil% 0.7 % (0-1); Eosinophil# 0.27 X10^3/uL; Eosinophils% 3.2 % (0-5); Lymphocyte # 1.99 X10^3/ul (0.83-4.51); Lymphocyte % 23.5 % (19-41); Mean Corp Hgb Conc 35.5 g/dL (32-36); Mean Corpuscular Hgb 27.7 pg (27.0-32.0); Mean Corpuscular Volume 78.1 fL (80-94); Mean Platelet Vol. 10.2 fl (6.2-12.0); Monocyte# 0.62 X10^3/uL; Monocyte% 7.3 % (0-10); NRBC Flagged by Analyzer 0 % (0-5); Neutrophil % 64.9 % (47-70); Platelet Count 290 K/mm3 (150-450); RBC Distribution Width CV 15.9 % (11.6-14.6); RBC Distribution Width SD 45.2 fl (35.1-43.9); Red Blood Count 3.97 M/mm3 (4.6-6.2); White Blood Count 8.5 K/mm3 (4.4-11.0)
[2021-01-20] MEDS: Heparin Injection (Vial) 5,000 UNIT/ML VIAL 5000 UNIT SC ×3 (06:39→21:46)
[2021-01-20] MEDS: Sucralfate 1 GM Tablet PO ×3 (06:39→21:48)
[2021-01-20 06:57] LABS: Anion Gap 7 (5-15); BUN 14 mg/dL (7-18); BUN/Creat Ratio 14.2 RATIO (10-20); Calcium,Total 8.3 mg/dL (8.5-10.1); Chloride 110 mmol/L (98-107); Creatinine, Serum 0.99 mg/dL (0.70-1.30); EST Glomerular Filtration Rate 84 mL/min (>60); Est Glom Filt Rate - Afr Amer 101 mL/min (>60); Glucose 73 mg/dL (74-106); Sodium Level 141 mmol/L (136-145)
[2021-01-20 08:35] LABS: Bedside Glucose 79 mg/dL (70-110)
[2021-01-20] MEDS: Sertraline 50 MG Tablet PO (09:37)
[2021-01-20] MEDS: Cyanocobalamin 500 MCG Tablet 1000 MCG PO (09:37)
[2021-01-20] MEDS: Metoprolol Tartrate 50 MG Tablet PO ×2 (09:37→21:52)
[2021-01-20] MEDS: busPIRone 5 MG Tablet PO ×2 (09:37→21:49)
[2021-01-20] MEDS: amLODIPine 10 MG Tablet PO (09:37)
[2021-01-20] MEDS: Aspirin 81 MG TAB.CHEW PO (09:37)
[2021-01-20] MEDS: Ferrous Sulfate 325 MG Tablet PO (09:37)
[2021-01-20] MEDS: Leflunomide 10 MG TABLET PO (09:38)
[2021-01-20] MEDS: QUEtiapine 25 MG Tablet PO ×2 (09:38→21:48)
[2021-01-20] MEDS: Cholecalciferol (VIT D3) 25 MCG TABLET (1,000 UNITS) 50 MCG PO (09:39)
[2021-01-20] MEDS: Omega-3 Acid Ethyl Esters 1 GM Capsule PO ×2 (09:40→16:30)
[2021-01-20] MEDS: Pantoprazole Sodium 40 MG Tablet PO ×2 (09:40→21:50)
[2021-01-20] MEDS: buPROPion (XL) 150 MG TABLET.XL PO (09:40)
[2021-01-20] MEDS: Ezetimibe 10 MG Tablet PO (09:40)
[2021-01-20 12:01] LABS: Bedside Glucose 152 mg/dL (70-110)
--- NOTE | 2021-01-20 12:29 | PCM.PN.HOSP ---
Documented by User: Laya Castro NP, PATHOLOGY SPECIALIST-C 01/20/21 12:50 Subjective Subjective Patient seen and examined. Awake and alert however remains confused this morning. Undergoing EEG. Objective Data Objective Data Vital Signs: Vital Signs Temp Pulse Resp BP Pulse Ox 98.1 F 91 16 117/66 98 01/20/21 09:35 01/20/21 09:37 01/20/21 09:35 01/20/21 09:35 01/20/21 09:35 Oxygen Delivery Method Room Air Weight: 283 lb 4.704 oz Body Mass Index (BMI) 41.8 Intake & Output: Intake and Output for Last 24 Hours 01/18/21 01/19/21 01/20/21 23:59 23:59 23:59 Intake Total 480.00 / 880.00 1250 / 1472 462 / 462 Output Total 2350 / 2700 1550 / 1850 900 / 900 Balance -1870.00 / -1820.00 -300 / -378 -438 / -438 Lab / Micro Data Result Diagrams: 01/20/21 05:31 01/20/21 05:31 Labs: Laboratory Results - last 24 hr 01/19/21 05:17: Phosphorus 3.5, Magnesium 1.5 L 01/19/21 16:32: POC Glucose 125 H 01/19/21 21:32: POC Glucose 118 H 01/20/21 05:31: WBC 8.5, RBC 3.97 L, Hgb 11.0 L, Hct 31.0 L, MCV 78.1 L, MCH 27.7, MCHC 35.5, RDW Std Deviation 45.2 H, RDW Coeff of Nathalie 15.9 H, Plt Count 290, MPV 10.2, Immature Gran % (Auto) 0.400, Neut % (Auto) 64.9, Lymph % (Auto) 23.5, [place] % (Auto) 7.3, Eos % (Auto) 3.2, Baso % (Auto) 0.7, Absolute Neuts (auto) 5.5, Absolute Lymphs (auto) 1.99, Nucleated RBC % 0 01/20/21 05:31: Sodium 141, Potassium 3.0 L, Chloride 110 H, Carbon Dioxide 24.0, Anion Gap 7, BUN 14, Creatinine 0.99, Estim Creat Clear Calc 85.30, Est GFR (MDRD) Af Amer 101, Est GFR (MDRD) Non-Af 84, BUN/Creatinine Ratio 14.2, Glucose 73 L, Calcium 8.3 L 01/20/21 08:10: POC Glucose 79 01/20/21 11:56: POC Glucose 152 H Micro: Microbiology 01/16/21 14:05 Nasal Secretion SARS-CoV-2 Antigen (Rapid) - Final Physical Exam Const alert Orientation / Consciousness: awake, confused and disoriented HEENT normocephalic and moist oral mucous membranes Eyes PERRL, EOMs intact bilaterally and conjunctivae normal Neck no lymphadenopathy Resp normal respiratory effort and clear to auscultation bilaterally Cardio regular rate, regular rhythm and no murmurs Peripheral Pulses: pulses 2+ throughout GI normal to inspection, nondistended, normoactive bowel sounds, non-tender and non-distended Extremity normal to inspection Skin no rashes or lesions noted Lesions: no lesions Rashes: no rashes Trauma: no lacerations or abrasions Neuro CN's II-XII intact bilaterally, no focal motor deficits, no sensory deficits noted and deep tendon reflexes 2+ bilaterally Psych mental status grossly normal and affect normal Assessment & Plan Assessment/Plan (1) Encephalopathy: PLAN: 1. Acute toxic versus metabolic encephalopathy-UA, chest x-ray unremarkable, no evidence of infectious process. Recent ANDRE resolved. Patient is on significant amount of psychiatric medications. Seroquel reduced. CT of brain unremarkable. EEG completed this morning, pending. MRI of brain completed however inconclusive due to patient unable to cooperate. Patient appears to be slowly improving, consider SOC neurology consult following EEG read for further recommendations. 2. HHS, uncontrolled type 2 diabetes-blood glucose has stabilized during admission. Reported history of both hypoglycemia and hyperglycemia at assisted living facility. Metformin on hold. Lantus 40 units nightly. Accu-Cheks with sliding scale insulin and scheduled lispro. Suspect patient needs increased assistance in monitoring his glucose/med administration at assisted living facility. 3. Chronic kidney disease stage IIIa- stable, recent ANDRE resolved. Trend BMP. 4. Chronic bilateral lower extremity wounds-Do not appear acutely infected. 5. Anxiety/depression/bipolar disorder-resume amitriptyline, BuSpar, Seroquel, sertraline, bupropion, duloxetine. 6. Hypertension-continue metoprolol. Previously on HARITHA inhibitor which was discontinued due to renal function. 7. Hyperlipidemia-continue statin. 8. Rheumatoid arthritis-on leflunomide. 9. Morbid obesity-encouraged diet and lifestyle modifications. 10. GERD-on PPI, Carafate. 11. Tobacco dependence-encouraged cessation. 12. BPH-on Flomax. DVT prophylaxis- heparin sc Discharge plan: Return to assisted living facility when medically stable. This patient was seen by MARIAN العلي under the supervision of Dr. Eastman. Documented by User: Dr. Nara Eastman MD 01/20/21 14:42 Objective Data Lab / Micro Data Result Diagrams: 01/20/21 05:31 01/20/21 05:31 Charges/Coding Addendum Addendum: Patient seen by Laya FONSECA under my supervision Patient seen and examined. He was alert and communicative and had no complaints. Review of systems otherwise negative. O/E: Const alert Orientation / Consciousness: awake, alert, communicative HEENT normocephalic and moist oral mucous membranes Eyes PERRL, EOMs intact bilaterally and conjunctivae normal Neck no lymphadenopathy Resp normal respiratory effort and clear to auscultation bilaterally Cardio regular rate, regular rhythm and no murmurs Peripheral Pulses: pulses 2+ throughout GI normal to inspection, nondistended, normoactive bowel sounds, non-tender and non-distended Extremity normal to inspection Skin no rashes or lesions noted Lesions: no lesions Rashes: no rashes Trauma: no lacerations or abrasions Neuro CN's II-XII intact bilaterally, no focal motor deficits, no sensory deficits noted and deep tendon reflexes 2+ bilaterally Psych mental status grossly normal and affect normal Patient's encephalopathy seems to have improved at the time of review. There is no clear evidence of infection. Seroquel dose had been reduced. MRI of the brain was inconclusive as patient was not cooperative. He is to have EEG this morning and then SOC neurology will be consulted. PT OT on board. Fall precautions. Blood sugars have also improved. He is on Lantus 40 units nightly and insulin sliding scale. Accu-Cheks AC at bedtime. On heparin for DVT prophylaxis. Rest as per Laya Castro NP-see his note which I reviewed and endorsed. Visit Charges Inpatient E&M: 15992 Subs Hosp L2
[2021-01-20] MEDS: Potassium Chloride Oral Tablet 20 MEQ 60 MEQ PO (13:33)
--- NOTE | 2021-01-20 14:12 | TELEMED_ITS ---
SOC Telemed has confirmed receipt of a request for visit. This document confirms receipt of the order initiating the consult. To find the results of the consultation, please view the patient's reports for the scanned Telemed Consult.
[2021-01-20] MEDS: Insulin Lispro 100 UNIT/ML INSULN.PEN SC ×2 (16:31→21:45)
[2021-01-20] MEDS: Insulin Lispro 100 UNIT/ML INSULN.PEN 10 UNIT SC (16:31)
[2021-01-20 16:35] LABS: Bedside Glucose 257 mg/dL (70-110)
[2021-01-20] MEDS: DULoxetine Hcl 60 MG Capsule PO (21:48)
[2021-01-20] MEDS: Atorvastatin Calcium 80 MG Tablet PO (21:49)
[2021-01-20] MEDS: Tamsulosin HCl 0.4 MG Capsule PO (21:49)
[2021-01-20] MEDS: Amitriptyline 25 MG Tablet 75 MG PO (21:50)
[2021-01-20 22:00] LABS: Bedside Glucose 200 mg/dL (70-110)
[2021-01-21] VITALS (11 sets, daily range): BP systolic 108–154; BP diastolic 67–82; PULSE 74–85; RESP 16–18; TEMP 36.2–37.1; O2SAT 94–100
[2021-01-21] MEDS: Heparin Injection (Vial) 5,000 UNIT/ML VIAL 5000 UNIT SC ×3 (06:31→20:46)
[2021-01-21 06:33] LABS: Absolute Lymphocyte Count 2.48 X10^3/uL (0.83-4.51); Absolute Neutrophil Count 5.2 X10^3/uL (2.0-7.7); Basophil# 0.05 X10^3/uL; Basophil% 0.6 % (0-1); Eosinophil# 0.24 X10^3/uL; Eosinophils% 2.7 % (0-5); Hematocrit 31.6 % (40-54); Hemoglobin 10.7 g/dL (13.0-16.5); Lymphocyte # 2.48 X10^3/ul (0.83-4.51); Lymphocyte % 28.4 % (19-41); Mean Corp Hgb Conc 33.9 g/dL (32-36); Mean Corpuscular Hgb 27.3 pg (27.0-32.0); Mean Corpuscular Volume 80.6 fL (80-94); Mean Platelet Vol. 10.1 fl (6.2-12.0); Monocyte# 0.69 X10^3/uL; Monocyte% 7.9 % (0-10); NRBC Flagged by Analyzer 0 % (0-5); Neutrophil # 5.22 X10^3/uL (2.7-7.7); Neutrophil % 59.8 % (47-70); Platelet Count 297 K/mm3 (150-450); RBC Distribution Width CV 16.4 % (11.6-14.6); RBC Distribution Width SD 46.6 fl (35.1-43.9); Red Blood Count 3.92 M/mm3 (4.6-6.2); White Blood Count 8.7 K/mm3 (4.4-11.0)
[2021-01-21 06:57] LABS: Anion Gap 6 (5-15); BUN 15 mg/dL (7-18); Calcium,Total 8.2 mg/dL (8.5-10.1); Chloride 108 mmol/L (98-107); Creatinine, Serum 1.15 mg/dL (0.70-1.30); EST Glomerular Filtration Rate 70 mL/min (>60); Est Glom Filt Rate - Afr Amer 85 mL/min (>60); Estimated Creatinine Clearance 73.43 ml/min; Glucose 160 mg/dL (74-106); Potassium 3.8 mmol/L (3.5-5.1); Sodium Level 139 mmol/L (136-145)
[2021-01-21 08:05] LABS: Bedside Glucose 171 mg/dL (70-110)
--- NOTE | 2021-01-21 10:35 | NURSING ---
Pt woke for VS and agreeable to take his important medications at this time.
[2021-01-21] MEDS: amLODIPine 10 MG Tablet PO (10:37)
[2021-01-21] MEDS: buPROPion (XL) 150 MG TABLET.XL PO (10:37)
[2021-01-21] MEDS: QUEtiapine 25 MG Tablet PO ×2 (10:37→20:50)
[2021-01-21] MEDS: Metoprolol Tartrate 50 MG Tablet PO ×2 (10:38→20:49)
[2021-01-21] MEDS: Sertraline 50 MG Tablet PO (10:39)
[2021-01-21] MEDS: busPIRone 5 MG Tablet PO ×2 (10:40→20:50)
[2021-01-21 11:31] LABS: Bedside Glucose 183 mg/dL (70-110)
[2021-01-21] MEDS: Insulin Lispro 100 UNIT/ML INSULN.PEN SC ×3 (11:54→20:45)
[2021-01-21] MEDS: Insulin Lispro 100 UNIT/ML INSULN.PEN 10 UNIT SC ×2 (11:54→17:31)
[2021-01-21] MEDS: Sucralfate 1 GM Tablet PO ×3 (11:55→20:49)
--- NOTE | 2021-01-21 13:07 | PCM.PN.HOSP ---
Documented by User: Jose C MARTINEZ 01/21/21 13:20 Subjective Subjective Patient is a 55-year-old male resting in bed, alert and oriented to self. Patient cannot provide much insight into current condition as he has been confused and lethargic since admission and continues to be. Objective Data Objective Data Vital Signs: Vital Signs Temp Pulse Resp BP Pulse Ox 98.3 F 80 18 146/82 H 98 01/21/21 10:35 01/21/21 10:38 01/21/21 10:35 01/21/21 10:38 01/21/21 10:35 Oxygen Delivery Method Room Air Weight: 283 lb 4.704 oz Body Mass Index (BMI) 41.8 Intake & Output: Intake and Output for Last 24 Hours 01/19/21 01/20/21 01/21/21 23:59 23:59 23:59 Intake Total 1250 / 1472 942 / 1182 360 / 360 Output Total 1550 / 1850 1100 / 1500 550 / 550 Balance -300 / -378 -158 / -318 -190 / -190 Lab / Micro Data Result Diagrams: 01/21/21 06:09 01/21/21 06:09 Labs: Laboratory Results - last 24 hr 01/20/21 16:29: POC Glucose 257 H 01/20/21 21:42: POC Glucose 200 H 01/21/21 06:09: WBC 8.7, RBC 3.92 L, Hgb 10.7 L, Hct 31.6 L, MCV 80.6, MCH 27.3, MCHC 33.9, RDW Std Deviation 46.6 H, RDW Coeff of Nathalie 16.4 H, Plt Count 297, MPV 10.1, Immature Gran % (Auto) 0.600, Neut % (Auto) 59.8, Lymph % (Auto) 28.4, [place] % (Auto) 7.9, Eos % (Auto) 2.7, Baso % (Auto) 0.6, Absolute Neuts (auto) 5.2, Absolute Lymphs (auto) 2.48, Nucleated RBC % 0 01/21/21 06:09: Sodium 139, Potassium 3.8, Chloride 108 H, Carbon Dioxide 25.0, Anion Gap 6, BUN 15, Creatinine 1.15, Estim Creat Clear Calc 73.43, Est GFR (MDRD) Af Amer 85, Est GFR (MDRD) Non-Af 70, BUN/Creatinine Ratio 13.0, Glucose 160 H, Calcium 8.2 L 01/21/21 08:00: POC Glucose 171 H 01/21/21 11:17: POC Glucose 183 H Micro: Microbiology 01/16/21 14:05 Nasal Secretion SARS-CoV-2 Antigen (Rapid) - Final Physical Exam Const alert Orientation / Consciousness: disoriented and lethargic Exam Limitations: altered mental status HEENT head/scalp atraumatic and moist oral mucous membranes Head and Scalp: normocephalic Eyes EOMs intact bilaterally and conjunctivae normal Neck no lymphadenopathy, supple and no JVD Resp normal respiratory effort, no retractions and no use of accessory muscles Cardio regular rate, regular rhythm, no murmurs and no JVD GI normal to inspection, nondistended, normoactive bowel sounds, soft to palpation and non-tender Extremity normal to inspection, full ROM and no clubbing, cyanosis or edema Skin no rashes or lesions noted, no wounds, skin turgor normal and no jaundice Neuro Neuro Narrative: Not able to be assessed due to patient confusion and lethargy. Psych Psych Narrative: Not able to be assessed due to patient confusion and lethargy. Assessment & Plan Assessment/Plan (1) Encephalopathy: PLAN: Day 5 Discharge planning: Patient to return to assisted living facility when medically ready. 1) acute encephalopathy, toxic versus metabolic Patient has ongoing confusion and lethargy, and cannot provide much insight into his current condition. Prior work-up has revealed no evidence of infectious process. Brain MRI inconclusive due to patient's inability to cooperate during exam. Of note, patient is on a significant amount of psychiatric medications, Seroquel previously reduced. Plan; EEG and SOC neurology consult ordered/pending. 2) hyperosmolar hyperglycemic syndrome Resolved. Plan; hold metformin, continue Lantus 40 units nightly, continue Accu-Cheks with sliding scale insulin.Suspect patient needs increased assistance in monitoring his glucose/med administration at assisted living facility. 3) CKD stage IIIa Stable. Previous ANDRE is resolved, creatinine currently 1.15. Continue to trend BMP. 4) chronic bilateral lower extremity wounds Patient has draining wounds on the heel and ankles, bilaterally. Do not appear to be acutely infected. Patient is afebrile and is without a leukocytosis. Wound nurse consult ordered. 5) anxiety/depression/bipolar disorder Continue amitriptyline, BuSpar, Seroquel, sertraline, bupropion and duloxetine. 6) HTN Stable, continue metoprolol. 7) hyperlipidemia Continue statin 8) RA Continue leflunomide. 9) GERD Continue PPI and Carafate. 10) BPH Continue Flomax. DVT prophylaxis - Heparin. Patient seen by Jose C Christiansen PA-C, under the supervision of Dr. Eastman. Documented by User: Dr. Nara Eastman MD 01/21/21 16:47 Objective Data Lab / Micro Data Result Diagrams: 01/21/21 06:09 01/21/21 06:09 Charges/Coding Addendum Addendum: Patient seen by Jose C Christiansen PA-C under my supervision Patient seen and examined. He was drowsy but arousable, and had no active complaints. Review of system was otherewise negative. O/E: Const alert Orientation / Consciousness: lethargic, drowsy HEENT normocephalic and moist oral mucous membranes Eyes PERRL, EOMs intact bilaterally and conjunctivae normal Neck no lymphadenopathy Resp normal respiratory effort and clear to auscultation bilaterally Cardio regular rate, regular rhythm and no murmurs Peripheral Pulses: pulses 2+ throughout GI normal to inspection, nondistended, normoactive bowel sounds, non-tender and non-distended Extremity normal to inspection Skin no rashes or lesions noted Lesions: no lesions Rashes: no rashes Trauma: no lacerations or abrasions Neuro CN's II-XII intact bilaterally, no focal motor deficits, no sensory deficits noted and deep tendon reflexes 2+ bilaterally Psych mental status: drowsy, lethargic Patient was lethargic this morning. Metoprolol dose was reduced. MRI of the brain was inconclusive and EEG has been done and read is pending. SOC neurology consulted. Await recs. PT OT on board. Fall precautions. Continue Lantus 40 units nightly and insulin sliding scale. Accu-Cheks AC at bedtime. Patient is a resident in an assisted living facility and it seems he is not able to take good care of himself there and also does not follow a diet plan. Will benefit from detention care in a SNF. Case management on board. PT OT ordered. Continue heparin for DVT prophylaxis. Rest as per Jose C Christiansen PA-C's note, which I have reviewed and endorsed. Visit Charges Inpatient E&M: 14416 Subs Hosp L2
[2021-01-21 16:11] LABS: Bedside Glucose 207 mg/dL (70-110)
[2021-01-21] MEDS: Omega-3 Acid Ethyl Esters 1 GM Capsule PO (17:31)
[2021-01-21] MEDS: Tamsulosin HCl 0.4 MG Capsule PO (20:49)
[2021-01-21] MEDS: Amitriptyline 25 MG Tablet 75 MG PO (20:50)
[2021-01-21] MEDS: Pantoprazole Sodium 40 MG Tablet PO (20:50)
[2021-01-21] MEDS: DULoxetine Hcl 60 MG Capsule PO (20:51)
[2021-01-21] MEDS: Atorvastatin Calcium 80 MG Tablet PO (20:51)
[2021-01-21 21:00] LABS: Bedside Glucose 203 mg/dL (70-110)
[2021-01-22] VITALS (14 sets, daily range): BP systolic 119–142; BP diastolic 51–79; PULSE 77–105; RESP 14–18; TEMP 2.8–37; O2SAT 95–100
[2021-01-22] MEDS: MELATONIN 3 MG TABLET PO (00:01)
[2021-01-22] MEDS: Heparin Injection (Vial) 5,000 UNIT/ML VIAL 5000 UNIT SC ×3 (05:55→21:35)
[2021-01-22] MEDS: Sucralfate 1 GM Tablet PO ×4 (05:57→21:35)
[2021-01-22 06:22] LABS: Absolute Lymphocyte Count 3.02 X10^3/uL (0.83-4.51); Basophil# 0.07 X10^3/uL; Basophil% 0.6 % (0-1); Eosinophil# 0.36 X10^3/uL; Eosinophils% 3.2 % (0-5); Hematocrit 34.8 % (40-54); Hemoglobin 12.1 g/dL (13.0-16.5); Lymphocyte # 3.02 X10^3/ul (0.83-4.51); Lymphocyte % 26.5 % (19-41); Mean Corp Hgb Conc 34.8 g/dL (32-36); Mean Corpuscular Hgb 27.5 pg (27.0-32.0); Mean Corpuscular Volume 79.1 fL (80-94); Mean Platelet Vol. 10.7 fl (6.2-12.0); Monocyte# 0.85 X10^3/uL; Monocyte% 7.5 % (0-10); NRBC Flagged by Analyzer 0 % (0-5); Neutrophil # 7.01 X10^3/uL (2.7-7.7); Neutrophil % 61.5 % (47-70); Platelet Count 320 K/mm3 (150-450); RBC Distribution Width CV 16.5 % (11.6-14.6); RBC Distribution Width SD 46.3 fl (35.1-43.9); White Blood Count 11.4 K/mm3 (4.4-11.0)
[2021-01-22 06:49] LABS: Anion Gap 6 (5-15); BUN 19 mg/dL (7-18); BUN/Creat Ratio 15.2 RATIO (10-20); Calcium,Total 8.6 mg/dL (8.5-10.1); Chloride 106 mmol/L (98-107); Creatinine, Serum 1.25 mg/dL (0.70-1.30); EST Glomerular Filtration Rate 64 mL/min (>60); Est Glom Filt Rate - Afr Amer 77 mL/min (>60); Estimated Creatinine Clearance 67.56 ml/min; Glucose 181 mg/dL (74-106); Potassium 4.9 mmol/L (3.5-5.1); Sodium Level 134 mmol/L (136-145)
--- NOTE | 2021-01-22 08:17 | WOUNDNOTE ---
Was asked to see patient for wound to the left lateral heel. no open areas noted. there is a pink area noted that appears to be a healed pressure injury or neuropathic wound. there is no drainage noted. no surrounding erythema. would recommend protecting heel from breakdown. placed an ABD pad and wrapped with kerlix. heels are offloaded on pillows. will monitor.
[2021-01-22] MEDS: Insulin Lispro 100 UNIT/ML INSULN.PEN SC ×4 (08:58→21:44)
[2021-01-22] MEDS: Insulin Lispro 100 UNIT/ML INSULN.PEN 10 UNIT SC ×3 (08:58→16:52)
[2021-01-22] MEDS: Pantoprazole Sodium 40 MG Tablet PO ×2 (08:59→21:35)
[2021-01-22] MEDS: Metoprolol Tartrate 50 MG Tablet PO ×2 (08:59→21:34)
[2021-01-22] MEDS: Aspirin 81 MG TAB.CHEW PO (08:59)
[2021-01-22] MEDS: Sertraline 50 MG Tablet PO (08:59)
[2021-01-22] MEDS: Ferrous Sulfate 325 MG Tablet PO (08:59)
[2021-01-22] MEDS: Omega-3 Acid Ethyl Esters 1 GM Capsule PO ×2 (08:59→16:52)
[2021-01-22] MEDS: amLODIPine 10 MG Tablet PO (09:00)
[2021-01-22] MEDS: Ezetimibe 10 MG Tablet PO (09:00)
[2021-01-22] MEDS: QUEtiapine 25 MG Tablet PO ×2 (09:00→21:35)
[2021-01-22] MEDS: buPROPion (XL) 150 MG TABLET.XL PO (09:00)
[2021-01-22] MEDS: Cyanocobalamin 500 MCG Tablet 1000 MCG PO (09:00)
[2021-01-22] MEDS: busPIRone 5 MG Tablet PO ×2 (09:00→21:35)
[2021-01-22] MEDS: Leflunomide 10 MG TABLET PO (09:01)
[2021-01-22] MEDS: Cholecalciferol (VIT D3) 25 MCG TABLET (1,000 UNITS) 50 MCG PO (09:01)
--- NOTE | 2021-01-22 09:01 | CASEMGMT ---
[facility], the following are in-network tertiary facilities: [facility], [place], [facility], [facility], and . Jennifer CHEN CM
[2021-01-22 09:15] LABS: Bedside Glucose 201 mg/dL (70-110)
--- NOTE | 2021-01-22 09:27 | MRI_ITS ---
STUDY: MRI BRAIN WITHOUT CONTRAST REASON FOR EXAM: Male, 55 years old. Altered mental status - TECHNIQUE: Standardized multiplanar fat and water weighted pulse sequences were obtained. COMPARISON: 01/17/2021 FINDINGS: There is mild cerebral atrophy with widening of the extra-axial spaces and ventricular dilatation. There are a limited number of small white matter hyperintensities, distributed throughout the deep white matter tracts of the cerebral hemispheres, consistent with mild chronic white matter ischemic changes. There is no evidence for recent intracranial ischemia or other cause of cytotoxic edema on diffusion weighted imaging (DWI). Normal T2* images of the brain without demonstrated susceptibility artifact. There is no demonstrated hemosiderin stain. Normal bilateral basal ganglia. Normal thalami. There is no extra-axial fluid accumulation. Normal flow voids within the major intracranial circulation suggesting patency by spin echo criteria. There is enlargement of the sella turcica with increased CSF within the sella and flattening of the pituitary gland consistent with an empty sellar syndrome. Normal infundibular stalk, hypothalamus, and optic chiasm. Normal tectal plate and pineal gland. Normal midbrain, pat and medulla. Normal cerebellum. Normal basal cisterns. Normal bilateral temporal bones. Normal bilateral internal auditory canals. No demonstrated orbital abnormality, within the constraints of a routine brain study. Opacification of the right frontal sinus consistent with chronic sinusitis. Normal calvarium and skull base. Normal visualized soft tissue structures. Normal visualized upper cervical spine. MRI/Brain without Contrast IMPRESSION: Involutional changes of the brain, as described above. No acute infarct. Electronically Signed: Tex Lynch MD at 13:37 EDT Tel , Service support ,
--- NOTE | 2021-01-22 09:39 | WOUNDNOTE ---
skin photo: left lateral heel
[2021-01-22 11:51] LABS: Bedside Glucose 236 mg/dL (70-110)
[2021-01-22] MEDS: 0.9% Saline Lock 10 ML Syringe IV (11:55)
[2021-01-22] MEDS: LORazepam 2 MG/ML Syringe 0.5 MG IV (11:55)
--- NOTE | 2021-01-22 13:02 | NURSING ---
MRI COMPLETE. PT TOLERATED WELL. SOME MOTION ARTIFACT FROM LEG MOVEMENT. PCU SENDING TRANSPORTER TO RETURN PT TO PCU 110.
--- NOTE | 2021-01-22 14:10 | CHAPLAIN ---
Type of Pastoral Visit _x__ Initial Visit ___ Follow-up Visit ___ On-call Visit ___ General Patient Visit ___ Spiritual Assessment ___ Family Conference ___ Bereavement ___ Rapid Response ___ Code Blue ___ Other (describe below) Pastoral Care Referral From _x__ Patient ___ Family ___ Nurse ___ Physician ___ Rn Call Center ___ Mva Still Operator ___ Other (describe below) Sacrament/Intervention _x__ Active listening ___ Anointing ___ Presybeterian ___ Bereavement ___ Communion ___ Faby exploration ___ ___ Life review _x__ Prayer ___ Reconciliation ___ Sacrament of Sick _x__ Supportive presence ___ Wedding ___ Other (describe below) Pastoral Comments patient also seen on a recent and previous visit; updated care
--- NOTE | 2021-01-22 14:27 | PCM.PN.HOSP ---
Documented by User: Jose C MARTINEZ 01/22/21 15:47 Subjective Subjective Patient is a 55-year-old male comfortably resting in bed, alert and orient x1. Patient is still acutely confused, however is less lethargic than yesterday and is actually able to provide responses to questions asked. Denies chest pain, shortness of breath, palpitations, hemoptysis, sputum production, fever, chills, N/V/D. Objective Data Objective Data Vital Signs: Vital Signs Temp Pulse Resp BP Pulse Ox 37.0 F L 77 14 131/79 H 97 01/22/21 14:06 01/22/21 14:06 01/22/21 14:06 01/22/21 14:06 01/22/21 14:06 Oxygen Flow Rate (L/min) 2 Oxygen Delivery Method Room Air Weight: 283 lb 4.704 oz Body Mass Index (BMI) 41.8 Intake & Output: Intake and Output for Last 24 Hours 01/20/21 01/21/21 01/22/21 23:59 23:59 23:59 Intake Total 942 / 1182 360 / 660 960 / 960 Output Total 1100 / 1500 800 / 1200 1300 / 1300 Balance -158 / -318 -440 / -540 -340 / -340 Lab / Micro Data Result Diagrams: 01/22/21 05:04 01/22/21 05:04 Labs: Laboratory Results - last 24 hr 01/21/21 16:04: POC Glucose 207 H 01/21/21 20:40: POC Glucose 203 H 01/22/21 05:04: WBC 11.4 H, RBC 4.40 L, Hgb 12.1 L, Hct 34.8 L, MCV 79.1 L, MCH 27.5, MCHC 34.8, RDW Std Deviation 46.3 H, RDW Coeff of Nathalie 16.5 H, Plt Count 320, MPV 10.7, Immature Gran % (Auto) 0.700, Neut % (Auto) 61.5, Lymph % (Auto) 26.5, [place] % (Auto) 7.5, Eos % (Auto) 3.2, Baso % (Auto) 0.6, Absolute Neuts (auto) 7.0, Absolute Lymphs (auto) 3.02, Nucleated RBC % 0 01/22/21 05:04: Sodium 134 L, Potassium 4.9, Chloride 106, Carbon Dioxide 22.0, Anion Gap 6, BUN 19 H, Creatinine 1.25, Estim Creat Clear Calc 67.56, Est GFR (MDRD) Af Amer 77, Est GFR (MDRD) Non-Af 64, BUN/Creatinine Ratio 15.2, Glucose 181 H, Calcium 8.6 01/22/21 08:53: POC Glucose 201 H 01/22/21 11:42: POC Glucose 236 H Micro: Microbiology 01/16/21 14:05 Nasal Secretion SARS-CoV-2 Antigen (Rapid) - Final Radiography Diagnostic Testing: Radiology Impression Brain MRI 01/22/21 09:27 IMPRESSION: Involutional changes of the brain, as described above. No acute infarct. Electronically Signed: Tex Lynch MD at 13:37 EDT Tel , Service support , Physical Exam Const alert Orientation / Consciousness: confused and disoriented HEENT head/scalp atraumatic, moist oral mucous membranes and oropharynx normal Head and Scalp: normocephalic Eyes PERRL, EOMs intact bilaterally and conjunctivae normal Neck no lymphadenopathy, supple and no JVD Resp normal respiratory effort, no retractions and no use of accessory muscles Cardio regular rate, regular rhythm, no murmurs and no JVD GI normal to inspection, nondistended, normoactive bowel sounds, soft to palpation and non-tender Extremity normal to inspection, full ROM and no clubbing, cyanosis or edema Skin no rashes or lesions noted, no wounds, skin turgor normal and no jaundice Neuro Sensorium / Orientation: awake, alert and oriented to person Psych Psych Narrative: Unable to assess due to acute confusion. Assessment & Plan Assessment/Plan (1) Encephalopathy: PLAN: Day 6 Discharge planning: Patient to return to assisted living facility when medically ready. Case management and Social work following. 1) acute encephalopathy, toxic versus metabolic Patient continues to have ongoing confusion, although lethargy has improved from yesterday. Patient actually able to hold conversation but was still disoriented and confused. SOC consult obtained and recommendations as follows obtain a repeat MRI and ammonia level. Repeat MRI obtained on 01/21 demonstrated no acute infarct and only showed involutional changes of the brain. Ammonia level was elevated at 39. Prior work-up has revealed no evidence of infectious process. Of note, patient is on a significant amount of psychiatric medications, Seroquel previously reduced. Plan; initiate lactulose 20 g p.o. 3 times daily, hold for greater than 3 bowel movements daily, liver profile ordered, remain admitted for monitoring. 2) hyperosmolar hyperglycemic syndrome Resolved. Plan; hold metformin, continue Lantus 40 units nightly, continue Accu-Cheks with sliding scale insulin. Suspect patient needs increased assistance in monitoring his glucose/med administration at assisted living facility. 3) CKD stage IIIa Stable. Previous ANDRE is resolved, creatinine currently 1.15. Continue to trend BMP. 4) chronic bilateral lower extremity wounds Patient has draining wounds on the heel and ankles, bilaterally. Do not appear to be acutely infected. Patient is afebrile and is without a leukocytosis. Wound nurse consult ordered. 5) anxiety/depression/bipolar disorder Continue amitriptyline, BuSpar, Seroquel, sertraline, bupropion and duloxetine. 6) HTN Stable, continue metoprolol. 7) hyperlipidemia Continue statin 8) RA Continue leflunomide. 9) GERD Continue PPI and Carafate. 10) BPH Continue Flomax. DVT prophylaxis - Heparin. Patient seen by Jose C Christiansen PA-C, under the supervision of Dr. Eastman. Documented by User: Dr. Nara Eastman MD 01/22/21 16:17 Objective Data Lab / Micro Data Result Diagrams: 01/22/21 05:04 01/22/21 05:04 Charges/Coding Addendum Addendum: Patient seen by Jose C Christiansen PA-C under my supervision Patient seen and examined. He was lethargic but easily arousable. He had no active complaints and review of systems otherwise negative. He has remained hemodynamically stable. O/E: Const alert Orientation / Consciousness: lethargic, drowsy but easily arousable HEENT normocephalic and moist oral mucous membranes Eyes PERRL, EOMs intact bilaterally and conjunctivae normal Neck no lymphadenopathy Resp normal respiratory effort and clear to auscultation bilaterally Cardio regular rate, regular rhythm and no murmurs Peripheral Pulses: pulses 2+ throughout GI normal to inspection, nondistended, normoactive bowel sounds, non-tender and non-distended Extremity normal to inspection Skin no rashes or lesions noted Lesions: no lesions Rashes: no rashes Trauma: no lacerations or abrasions Neuro CN's II-XII intact bilaterally, no focal motor deficits, no sensory deficits noted and deep tendon reflexes 2+ bilaterally Psych mental status: drowsy, lethargic SOC neurology was consulted today and recommended a repeat MRI since his first MRI was inconclusive. EEG showed a focal structural abnormality in the right paracentral region superimposed on a moderate diffuse encephalopathy with no epileptiform discharges or seizure patterns. Repeat MRI showed involutional changes of the brain with no acute infarct. SOC was consulted and reviewed patient. Ammonia level check was mildly elevated at 39 so patient started on lactulose to aim for 2-3 loose stools daily. PT OT on board. Fall precautions. Plan is for discharge back to his assisted living facility when medically stable. Rest as per Jose C Christiansen PA-C's note, which I have reviewed and endorsed. Visit Charges Inpatient E&M: 14759 Subs Hosp L2
[2021-01-22] MEDS: Lactulose 20 GM/30 ML UDC PO ×2 (16:51→21:34)
[2021-01-22 17:01] LABS: Bedside Glucose 176 mg/dL (70-110)
[2021-01-22 17:24] LABS: AST(SGOT) 21 U/L (15-37); Alanine Aminotransfer ALT/SGPT 32 U/L (16-61); Albumin, Serum 2.6 g/dL (3.2-5.0); Alkaline Phosphatase 127 U/L (45-117); Bilirubin, Direct 0.09 mg/dL (0.00-0.30); Globulin 4.3 g/dL (2.2-4.2); Protein, Total 6.9 g/dL (6.4-8.2)
[2021-01-22] MEDS: Tamsulosin HCl 0.4 MG Capsule PO (21:35)
[2021-01-22] MEDS: DULoxetine Hcl 60 MG Capsule PO (21:35)
[2021-01-22] MEDS: Amitriptyline 25 MG Tablet 75 MG PO (21:35)
[2021-01-22] MEDS: Atorvastatin Calcium 80 MG Tablet PO (21:35)
[2021-01-22 21:50] LABS: Bedside Glucose 313 mg/dL (70-110)
[2021-01-23 02:38] VITALS: BP 143/80; PULSE 80; RESP 16; TEMP 37.1; O2SAT 98
[2021-01-23 03:03] VITALS: PULSE 82
[2021-01-23] MEDS: Heparin Injection (Vial) 5,000 UNIT/ML VIAL 5000 UNIT SC ×2 (06:15→13:39)
[2021-01-23] MEDS: Sucralfate 1 GM Tablet PO ×2 (06:16→11:40)
[2021-01-23] MEDS: Lactulose 20 GM/30 ML UDC PO ×2 (06:16→13:38)
[2021-01-23 06:55] LABS: Absolute Lymphocyte Count 2.51 X10^3/uL (0.83-4.51); Absolute Neutrophil Count 6.5 X10^3/uL (2.0-7.7); Basophil# 0.07 X10^3/uL; Basophil% 0.7 % (0-1); Hematocrit 33.8 % (40-54); Hemoglobin 11.6 g/dL (13.0-16.5); Lymphocyte # 2.51 X10^3/ul (0.83-4.51); Lymphocyte % 24.8 % (19-41); Mean Corp Hgb Conc 34.3 g/dL (32-36); Mean Corpuscular Hgb 27.2 pg (27.0-32.0); Mean Corpuscular Volume 79.2 fL (80-94); Mean Platelet Vol. 10.2 fl (6.2-12.0); Monocyte# 0.72 X10^3/uL; Monocyte% 7.1 % (0-10); NRBC Flagged by Analyzer 0 % (0-5); Neutrophil # 6.46 X10^3/uL (2.7-7.7); Neutrophil % 63.6 % (47-70); Platelet Count 330 K/mm3 (150-450); RBC Distribution Width CV 16.5 % (11.6-14.6); RBC Distribution Width SD 46.2 fl (35.1-43.9); Red Blood Count 4.27 M/mm3 (4.6-6.2); White Blood Count 10.1 K/mm3 (4.4-11.0)
[2021-01-23 07:00] VITALS: PULSE 74
[2021-01-23 07:25] LABS: Anion Gap 5 (5-15); BUN 16 mg/dL (7-18); BUN/Creat Ratio 13.3 RATIO (10-20); Calcium,Total 8.6 mg/dL (8.5-10.1); Chloride 108 mmol/L (98-107); EST Glomerular Filtration Rate 67 mL/min (>60); Est Glom Filt Rate - Afr Amer 81 mL/min (>60); Estimated Creatinine Clearance 70.37 ml/min; Glucose 207 mg/dL (74-106); Potassium 3.5 mmol/L (3.5-5.1); Sodium Level 134 mmol/L (136-145)
[2021-01-23 08:58] VITALS: BP 115/78; PULSE 77; RESP 18; TEMP 36.7; O2SAT 98
[2021-01-23] MEDS: Insulin Lispro 100 UNIT/ML INSULN.PEN 10 UNIT SC ×2 (09:00→11:40)
[2021-01-23] MEDS: Insulin Lispro 100 UNIT/ML INSULN.PEN SC ×2 (09:00→11:41)
[2021-01-23] MEDS: Ferrous Sulfate 325 MG Tablet PO (09:02)
[2021-01-23] MEDS: Aspirin 81 MG TAB.CHEW PO (09:02)
[2021-01-23] MEDS: Omega-3 Acid Ethyl Esters 1 GM Capsule PO (09:02)
[2021-01-23] MEDS: Cholecalciferol (VIT D3) 25 MCG TABLET (1,000 UNITS) 50 MCG PO (09:02)
[2021-01-23 09:03] VITALS: BP 115/78; PULSE 77
[2021-01-23] MEDS: Pantoprazole Sodium 40 MG Tablet PO (09:03)
[2021-01-23] MEDS: QUEtiapine 25 MG Tablet PO (09:03)
[2021-01-23] MEDS: Cyanocobalamin 500 MCG Tablet 1000 MCG PO (09:03)
[2021-01-23] MEDS: Metoprolol Tartrate 50 MG Tablet PO (09:03)
[2021-01-23] MEDS: buPROPion (XL) 150 MG TABLET.XL PO (09:03)
[2021-01-23] MEDS: amLODIPine 10 MG Tablet PO (09:04)
[2021-01-23] MEDS: Ezetimibe 10 MG Tablet PO (09:04)
[2021-01-23] MEDS: Leflunomide 10 MG TABLET PO (09:04)
[2021-01-23] MEDS: busPIRone 5 MG Tablet PO (09:04)
[2021-01-23] MEDS: Sertraline 50 MG Tablet PO (09:05)
--- NOTE | 2021-01-23 09:10 | CASEMGMT ---
ANGE [facility] and let them know patient will be discharged today. She just asked that ANGE let them know when and get orders to them ahead of time. Rianna Negrete HELICOPTER REPAIRER SHAY
--- NOTE | 2021-01-23 10:10 | CASEMGMT ---
ANGE received a phone call from [facility]. The lady was expressing concern with patient returning if he is well enough and if he can care for himself. She said if he cannot toilet himself or bathe himself they do not have the staff to care for him right now. ANGE told her we will see how he does with therapy today and go from there. Rianna DAY
--- NOTE | 2021-01-23 10:40 | CASEMGMT ---
[facility] told him that therapy feels like he will need help with bathing and lower body dressing. He was upset and said they don't normally help him with that stuff anyway. He said he wanted to call his mom and see what she says. SW helped him call his mom. SW will check back with patient. Rianna DAY
--- NOTE | 2021-01-23 10:57 | CASEMGMT ---
Patient's mom called in to talk with RN. ANGE went back to patient's room to talk with him to see what his mom thought. He said they can't just kick me out that is against the law. ANGE told him they are not kicking him out. They are saying they cannot provide the level of care he requires right now. ANGE told him he would go to a senior living short term and then when he is stronger go back to his assisted living. He was not sure what to do. ANGE told him SW will call his mom. In the meantime patient's mom told RN that she wanted to talk with ANGE. ANGE called patient's mom back and left her a voice mail. A short time later she called ANGE back. ANGE explained to her that ANGE notified [facility] that he was going to be returning today. ANGE told her someone from [facility] that works with the doctor that goes to to [facility] called. She said if patient cannot do everything himself like bathing, dressing, and toileting then they do not have the staff to care for him. ANGE told her that we would see how he does with therapy and SW would get back to them. ANGE told her that is when SW spoke with patient and he wanted to talk with her. ANGE told her that is why SW wanted to talk with her to see what her thoughts are on the situation. She said she wants him to go back to [facility]. She said if he does have to go to a senior living she wants him to go to a facility in [place] as that is where she lives. ANGE told her ANGE will call Arminda at [facility] and talk with her. ANGE will then get back to her. ANGE called [facility] and Susan said Arminda was in an interview currently. She took ANGE's name and number and will have Hope call ANGE back. Rianna Negrete MSW SHAY
--- NOTE | 2021-01-23 11:29 | CASEMGMT ---
ANGE received a return call from [place]. ANGE explained situation. She said that the lady that called has more of a history with patient. She said patient does have behaviors. ANGE told her SW will fax her patient's PT/OT notes and she can let SW know what she thinks. ANGE faxed PT/OT to [facility]. Await return call from [place]. Rianna Negrete MSW SHAY
[2021-01-23 11:56] LABS: Bedside Glucose 236 mg/dL (70-110)
--- NOTE | 2021-01-23 12:09 | CASEMGMT ---
SW received a phone call from Maria Teresa Skinner, patient's manager case from [facility]. She asked for an update on patient. SW let her know the current situation and that he is ready for discharge. Rianna Negrete LIFE SCIENCES TEACHER SHAY
--- NOTE | 2021-01-23 12:28 | CASEMGMT ---
SW received return call from [place] at [facility]. She said she looked over therapy notes. She said as long as he is not a max assist of 2 people he should be fine to return. Patient is not an assist of 2 people. She asked if they want him to continue with therapy then they will need an order. ANGE told her SW will fax orders and let them know a time when this is all done. ANGE called patient's mom and let her know above. ANGE also notified patient, RN, and Nurse Practitioner. Plan: d/c back to [facility]. ANGE will set up transport via [facility] when ready. Rianna Negrete PAN PUSHER SHAY
--- NOTE | 2021-01-23 13:03 | PCM.DC ---
Discharge Instructions Diet Discharge Diet: Low fat / Low cholesterol and Carb Control Diet Activity Discharge Activity: Return to Normal Activity Dressing / Incision Call your doctor if you observe: Shortness of breath, Dizziness, Chest pain and - (Confusion, altered mental status) Follow Up Care Test Results: Test results from this visit will be discussed in further detail at your follow-up appointment, if applicable. Discharge Plan Admission Admit Date/Time: 01/16/21 17:30 Primary Reason for Your Visit: Altered mental status Attending Provider: Nara Eastman Primary Care Provider: Care Physician,No Primary Discharge Orders/Prescriptions Prescriptions: New quetiapine 25 mg Tablet 25 mg PO BID Qty: 60 RF: 0 lactulose 20 gram/30 mL Solution 20 g PO DAILY 30 Days Qty: 900 RF: 0 Continued buspirone 5 mg Tablet 5 mg PO BID RF: 0 atorvastatin 80 mg Tablet 80 mg PO QHS RF: 0 amitriptyline 75 mg Tablet 75 mg PO QHS RF: 0 leflunomide 10 mg Tablet 10 mg PO DAILY RF: 0 tamsulosin 0.4 mg Capsule 0.4 mg PO QHS RF: 0 ferrous sulfate 325 mg (65 mg iron) Tablet 325 mg PO DAILY RF: 0 aspirin 81 mg Tablet,Chewable 81 mg PO DAILY RF: 0 sertraline 50 mg Tablet 50 mg PO DAILY RF: 0 insulin lispro 100 unit/mL Cartridge See Protocol sliding scale dose subcut TID RF: 0 ezetimibe 10 mg Tablet 10 mg PO DAILY RF: 0 Acidophilus Tablet,Chewable 2 tab PO DAILY RF: 0 metoprolol tartrate 25 mg Tablet 25 mg PO BID RF: 0 pregabalin 200 mg Capsule 200 mg PO TID RF: 0 cholecalciferol (vitamin D3) [Vitamin D3] 50 mcg (2,000 unit) Tablet 50 mcg PO DAILY RF: 0 omega 1-pfc-bhq-fish oil [Fish Oil] 1,000 mg (120 mg-180 mg) Capsule 1 cap PO BID RF: 0 duloxetine 60 mg Capsule, Delayed Rel Sprinkle 60 mg PO QHS RF: 0 B12 Active 1,000 mcg Tablet,Chewable 1,000 mcg PO DAILY RF: 0 pantoprazole [Protonix] 40 mg tablet,delayed release (DR/EC) 40 mg PO BID Qty: 60 RF: 0 metformin 500 mg Tablet 500 mg PO BID RF: 0 bupropion HCl 150 mg Tablet Extended Release 24 Hr 150 mg PO DAILY RF: 0 sucralfate 1 gram tablet 1 g PO ACHS RF: 0 amlodipine 10 mg tablet 10 mg PO DAILY RF: 0 Changed Tresiba FlexTouch U-100 100 unit/mL (3 mL) insulin pen 40 unit SUBCUT QHS Qty: 0 RF: 0 Discontinued quetiapine 50 mg Tablet 50 mg PO BID RF: 0 Referrals / Follow Up: Marcial Garcia MD [STAFF PHYSICIAN] - Within 1 Month Care Physician,No Primary [Primary Care Provider] - In 1 Week Disposition Disposition (needs filled in before D/C Order can be placed): Assisted Living
--- NOTE | 2021-01-23 13:15 | PCM.DC.SUM ---
Documented by User: Laya Castro NP, ADVERTISING OPERATIONS COORDINATOR-C 01/23/21 13:21 Providers Date of Admission: 01/16/21 Date of Discharge: 01/23/21 Primary Care Physician: lEa Primary Care Phys Consultations 01/22/21 06:36 Consult: Onc/Wound/last sorter Routine Comment: Reason for Consult:: evaluation of diabetic foot ulcer/pressure sore left foot Reason For Visit: HYPEROSMOLAR NONKETONE HYPERGLYCEMIA Diagnosis Discharge Diagnosis (1) Encephalopathy: Status: Acute Code(s): G93.40 - Encephalopathy, unspecified Medications at Discharge Home Medications Acidophilus 2 tab PO DAILY 11/27/20 B12 Active 1,000 mcg PO DAILY 11/27/20 amitriptyline 75 mg PO QHS 11/27/20 aspirin 81 mg PO DAILY 11/27/20 atorvastatin 80 mg PO QHS 11/27/20 buspirone 5 mg PO BID 11/27/20 cholecalciferol (vitamin D3) [Vitamin D3] 50 mcg PO DAILY 11/27/20 duloxetine 60 mg PO QHS 11/27/20 ezetimibe 10 mg PO DAILY 11/27/20 ferrous sulfate 325 mg PO DAILY 11/27/20 insulin lispro See Protocol SUBCUT TID 11/27/20 leflunomide 10 mg PO DAILY 11/27/20 metoprolol tartrate 25 mg PO BID 11/27/20 omega 3-frs-ogl-fish oil [Fish Oil] 1 cap PO BID 11/27/20 pregabalin 200 mg PO TID 11/27/20 sertraline 50 mg PO DAILY 11/27/20 tamsulosin 0.4 mg PO QHS 11/27/20 pantoprazole [Protonix] 40 mg PO BID #60 tab 01/15/21 amlodipine 10 mg PO DAILY 01/16/21 bupropion HCl 150 mg PO DAILY 01/16/21 metformin 500 mg PO BID 01/16/21 sucralfate 1 g PO ACHS 01/16/21 Tresiba FlexTouch U-100 40 unit SUBCUT QHS #0 ml 01/23/21 lactulose 20 g PO DAILY 30 Days #900 ml 01/23/21 quetiapine 25 mg PO BID #60 tab 01/23/21 Hospital Course Operations None Procedures Electroencephalogram Summary of Care Provided Minutes Spent on Discharge: 35 Hospital Course: Patient is a 55-year-old male admitted 01/16/2021 due to confusion. 1. Acute toxic versus metabolic encephalopathy-UA, chest x-ray unremarkable, no evidence of infectious process. Recent ANDRE resolved. Patient is on significant amount of psychiatric medications. Seroquel reduced. CT of brain unremarkable. EEG completed which showed no epileptiform discharges or seizure patterns. MRI of brain completed however inconclusive due to patient unable to cooperate. Additional [facility] neurology consult obtained who recommended repeat MRI, repeat MRI showed no acute infarct. Ammonia level ordered which was 39. Patient initiated on lactulose. Mental status now at baseline. Continue lactulose at discharge as well as reduced dose Seroquel. Patient will need close glucose monitoring at assisted living facility as well. Follow-up with PCP and endocrinology at discharge. 2. HHS, uncontrolled type 2 diabetes-blood glucose has stabilized during admission. Reported history of both hypoglycemia and hyperglycemia at assisted living facility. Continue Metformin 500 mg twice daily at discharge. Tresiba increased to 40 units nightly. Accu-Cheks with sliding scale lispro. Referred to endocrinology. 3. Chronic kidney disease stage IIIa- stable, recent ANDRE resolved. 4. Chronic bilateral lower extremity wounds-Do not appear acutely infected. 5. Anxiety/depression/bipolar disorder-resume amitriptyline, BuSpar, Seroquel, sertraline, bupropion, duloxetine. 6. Hypertension-continue metoprolol. Previously on HARITHA inhibitor which was discontinued due to renal function. Blood pressure stable. 7. Hyperlipidemia-continue statin. 8. Rheumatoid arthritis-on leflunomide. 9. Morbid obesity-encouraged diet and lifestyle modifications. 10. GERD-on PPI, Carafate. 11. Tobacco dependence-encouraged cessation. 12. BPH-on Flomax. Physical Exam Const alert Orientation / Consciousness: awake, alert, oriented HEENT normocephalic and moist oral mucous membranes Eyes PERRL, EOMs intact bilaterally and conjunctivae normal Neck no lymphadenopathy Resp normal respiratory effort and clear to auscultation bilaterally Cardio regular rate, regular rhythm and no murmurs Peripheral Pulses: pulses 2+ throughout GI normal to inspection, nondistended, normoactive bowel sounds, non-tender and non-distended Extremity normal to inspection Skin no rashes or lesions noted Lesions: no lesions Rashes: no rashes Trauma: no lacerations or abrasions Neuro CN's II-XII intact bilaterally, no focal motor deficits, no sensory deficits noted and deep tendon reflexes 2+ bilaterally Psych mental status grossly normal and affect normal Patient seen and examined prior to discharge. Physical assessment as noted above. Patient is stable for discharge with follow up recommendations as noted above. This patient was seen by MARIAN العلي under the supervision of Dr. Eastman. Weight / BMI Weight Weight: 283 lb 4.704 oz Body Mass Index (BMI) 41.8 ABG / Lab / Microbiology Data Result Diagrams: 01/23/21 06:40 01/23/21 06:40 Laboratory: Laboratory Results - last 24 hr 01/22/21 05:04: Total Bilirubin Cancelled, Direct Bilirubin Cancelled, AST Cancelled, ALT Cancelled, Alkaline Phosphatase Cancelled, Total Protein Cancelled, Albumin Cancelled, Globulin Cancelled 01/22/21 14:57: Ammonia 39.0 H 01/22/21 16:49: POC Glucose 176 H 01/22/21 16:54: Total Bilirubin 0.20, Direct Bilirubin 0.09, AST 21, ALT 32, Alkaline Phosphatase 127 H, Total Protein 6.9, Albumin 2.6 L, Globulin 4.3 H 01/22/21 21:42: POC Glucose 313 H 01/23/21 06:40: WBC 10.1, RBC 4.27 L, Hgb 11.6 L, Hct 33.8 L, MCV 79.2 L, MCH 27.2, MCHC 34.3, RDW Std Deviation 46.2 H, RDW Coeff of Nathalie 16.5 H, Plt Count 330, MPV 10.2, Immature Gran % (Auto) 0.800, Neut % (Auto) 63.6, Lymph % (Auto) 24.8, [place] % (Auto) 7.1, Eos % (Auto) 3.0, Baso % (Auto) 0.7, Absolute Neuts (auto) 6.5, Absolute Lymphs (auto) 2.51, Nucleated RBC % 0 01/23/21 06:40: Sodium 134 L, Potassium 3.5, Chloride 108 H, Carbon Dioxide 21.0, Anion Gap 5, BUN 16, Creatinine 1.20, Estim Creat Clear Calc 70.37, Est GFR (MDRD) Af Amer 81, Est GFR (MDRD) Non-Af 67, BUN/Creatinine Ratio 13.3, Glucose 207 H, Calcium 8.6 01/23/21 11:39: POC Glucose 236 H Microbiology: Microbiology 01/16/21 14:05 Nasal Secretion SARS-CoV-2 Antigen (Rapid) - Final Radiography Diagnostic Testing: Radiology Impression Brain MRI 01/22/21 09:27 IMPRESSION: Involutional changes of the brain, as described above. No acute infarct. Electronically Signed: Tex Lynch MD at 13:37 EDT Tel , Service support , D/C Instructions Discharge Diet: Low fat / Low cholesterol and Carb Control Diet Call your doctor if you observe: Shortness of breath, Dizziness, Chest pain and - (Confusion, altered mental status) Meaningful Use Info Meaningful Use Diagnoses (Choose all that apply): None applicable Discharge Plan Admission Admit Date/Time: 01/16/21 17:30 Primary Reason for Your Visit: Altered mental status Attending Provider: Nara Eastman Primary Care Provider: Care Physician,No Primary Instructions Additional Instructions / Restrictions: Patient Problems: Altered Health Status related to Hospitalization Patient Goals: *Optimal Level of Health *Keep Appointments *Medication Compliance *Remain Safe Discharge Orders/Prescriptions Prescriptions: New quetiapine 25 mg Tablet 25 mg PO BID Qty: 60 RF: 0 lactulose 20 gram/30 mL Solution 20 g PO DAILY 30 Days Qty: 900 RF: 0 Continued buspirone 5 mg Tablet 5 mg PO BID RF: 0 atorvastatin 80 mg Tablet 80 mg PO QHS RF: 0 amitriptyline 75 mg Tablet 75 mg PO QHS RF: 0 leflunomide 10 mg Tablet 10 mg PO DAILY RF: 0 tamsulosin 0.4 mg Capsule 0.4 mg PO QHS RF: 0 ferrous sulfate 325 mg (65 mg iron) Tablet 325 mg PO DAILY RF: 0 aspirin 81 mg Tablet,Chewable 81 mg PO DAILY RF: 0 sertraline 50 mg Tablet 50 mg PO DAILY RF: 0 insulin lispro 100 unit/mL Cartridge See Protocol sliding scale dose subcut TID RF: 0 ezetimibe 10 mg Tablet 10 mg PO DAILY RF: 0 Acidophilus Tablet,Chewable 2 tab PO DAILY RF: 0 metoprolol tartrate 25 mg Tablet 25 mg PO BID RF: 0 pregabalin 200 mg Capsule 200 mg PO TID RF: 0 cholecalciferol (vitamin D3) [Vitamin D3] 50 mcg (2,000 unit) Tablet 50 mcg PO DAILY RF: 0 omega 9-xcc-icl-fish oil [Fish Oil] 1,000 mg (120 mg-180 mg) Capsule 1 cap PO BID RF: 0 duloxetine 60 mg Capsule, Delayed Rel Sprinkle 60 mg PO QHS RF: 0 B12 Active 1,000 mcg Tablet,Chewable 1,000 mcg PO DAILY RF: 0 pantoprazole [Protonix] 40 mg tablet,delayed release (DR/EC) 40 mg PO BID Qty: 60 RF: 0 metformin 500 mg Tablet 500 mg PO BID RF: 0 bupropion HCl 150 mg Tablet Extended Release 24 Hr 150 mg PO DAILY RF: 0 sucralfate 1 gram tablet 1 g PO ACHS RF: 0 amlodipine 10 mg tablet 10 mg PO DAILY RF: 0 Changed Tresiba FlexTouch U-100 100 unit/mL (3 mL) insulin pen 40 unit SUBCUT QHS Qty: 0 RF: 0 Discontinued quetiapine 50 mg Tablet 50 mg PO BID RF: 0 Referrals / Follow Up: Marcial Garcia MD [STAFF PHYSICIAN] - Within 1 Month Care Physician,No Primary [Primary Care Provider] - In 1 Week Disposition Disposition (needs filled in before D/C Order can be placed): Assisted Living Documented by User: Dr. Nara Eastman MD 01/23/21 17:03 Providers Date of Admission: 01/16/21 Reason For Visit: HYPEROSMOLAR NONKETONE HYPERGLYCEMIA Medications at Discharge Home Medications Acidophilus 2 tab PO DAILY 11/27/20 B12 Active 1,000 mcg PO DAILY 11/27/20 amitriptyline 75 mg PO QHS 11/27/20 aspirin 81 mg PO DAILY 11/27/20 atorvastatin 80 mg PO QHS 11/27/20 buspirone 5 mg PO BID 11/27/20 cholecalciferol (vitamin D3) [Vitamin D3] 50 mcg PO DAILY 11/27/20 duloxetine 60 mg PO QHS 11/27/20 ezetimibe 10 mg PO DAILY 11/27/20 ferrous sulfate 325 mg PO DAILY 11/27/20 insulin lispro See Protocol SUBCUT TID 11/27/20 leflunomide 10 mg PO DAILY 11/27/20 metoprolol tartrate 25 mg PO BID 11/27/20 omega 2-pnz-azu-fish oil [Fish Oil] 1 cap PO BID 11/27/20 pregabalin 200 mg PO TID 11/27/20 sertraline 50 mg PO DAILY 11/27/20 tamsulosin 0.4 mg PO QHS 11/27/20 pantoprazole [Protonix] 40 mg PO BID #60 tab 01/15/21 amlodipine 10 mg PO DAILY 01/16/21 bupropion HCl 150 mg PO DAILY 01/16/21 metformin 500 mg PO BID 01/16/21 sucralfate 1 g PO ACHS 01/16/21 Tresiba FlexTouch U-100 40 unit SUBCUT QHS #0 ml 01/23/21 lactulose 20 g PO DAILY 30 Days #900 ml 01/23/21 quetiapine 25 mg PO BID #60 tab 01/23/21 ABG / Lab / Microbiology Data Result Diagrams: 01/23/21 06:40 01/23/21 06:40 Discharge Plan Admission Admit Date/Time: 01/16/21 17:30 Primary Reason for Your Visit: Altered mental status Attending Provider: Nara Eastman Primary Care Provider: Care Physician,No Primary Instructions Additional Instructions / Restrictions: Patient Problems: Altered Health Status related to Hospitalization Patient Goals: *Optimal Level of Health *Keep Appointments *Medication Compliance *Remain Safe Discharge Orders/Prescriptions Prescriptions: New quetiapine 25 mg Tablet 25 mg PO BID Qty: 60 RF: 0 lactulose 20 gram/30 mL Solution 20 g PO DAILY 30 Days Qty: 900 RF: 0 Continued buspirone 5 mg Tablet 5 mg PO BID RF: 0 atorvastatin 80 mg Tablet 80 mg PO QHS RF: 0 amitriptyline 75 mg Tablet 75 mg PO QHS RF: 0 leflunomide 10 mg Tablet 10 mg PO DAILY RF: 0 tamsulosin 0.4 mg Capsule 0.4 mg PO QHS RF: 0 ferrous sulfate 325 mg (65 mg iron) Tablet 325 mg PO DAILY RF: 0 aspirin 81 mg Tablet,Chewable 81 mg PO DAILY RF: 0 sertraline 50 mg Tablet 50 mg PO DAILY RF: 0 insulin lispro 100 unit/mL Cartridge See Protocol sliding scale dose subcut TID RF: 0 ezetimibe 10 mg Tablet 10 mg PO DAILY RF: 0 Acidophilus Tablet,Chewable 2 tab PO DAILY RF: 0 metoprolol tartrate 25 mg Tablet 25 mg PO BID RF: 0 pregabalin 200 mg Capsule 200 mg PO TID RF: 0 cholecalciferol (vitamin D3) [Vitamin D3] 50 mcg (2,000 unit) Tablet 50 mcg PO DAILY RF: 0 omega 3-ffp-mnu-fish oil [Fish Oil] 1,000 mg (120 mg-180 mg) Capsule 1 cap PO BID RF: 0 duloxetine 60 mg Capsule, Delayed Rel Sprinkle 60 mg PO QHS RF: 0 B12 Active 1,000 mcg Tablet,Chewable 1,000 mcg PO DAILY RF: 0 pantoprazole [Protonix] 40 mg tablet,delayed release (DR/EC) 40 mg PO BID Qty: 60 RF: 0 metformin 500 mg Tablet 500 mg PO BID RF: 0 bupropion HCl 150 mg Tablet Extended Release 24 Hr 150 mg PO DAILY RF: 0 sucralfate 1 gram tablet 1 g PO ACHS RF: 0 amlodipine 10 mg tablet 10 mg PO DAILY RF: 0 Changed Tresiba FlexTouch U-100 100 unit/mL (3 mL) insulin pen 40 unit SUBCUT QHS Qty: 0 RF: 0 Discontinued quetiapine 50 mg Tablet 50 mg PO BID RF: 0 Referrals / Follow Up: Marcial Garcia MD [STAFF PHYSICIAN] - Within 1 Month Care Physician,No Primary [Primary Care Provider] - In 1 Week Disposition Disposition (needs filled in before D/C Order can be placed): Assisted Living Charges/Coding Addendum Addendum: Patient seen by Laya FONSECA under my supervision Patient is a 55-year-old male with a past medical history as outlined was admitted through the ED with a complaint of confusion. Patient was on a significant amount of psychiatric medication and is fusion was thought to be possibly related to the medications he was taking. He was admitted and managed for acute metabolic encephalopathy. CT of the brain done was negative and work-up for any infectious etiology was also negative. EEG done showed no epileptiform discharges or seizure patterns an MRI of the brain initially done was inconclusive as patient was not cooperative. [facility] neurology was therefore consulted and recommended a repeat MRI which was also negative for any acute intracranial pathology. Ammonia level done was mildly elevated at 39 2 patient was started on lactulose. He remained stable and his mentation improved back to his baseline. He was discharged to his assisted living facility on 01/23/2021. He was discharged on lactulose and his Seroquel dose was also reduced. Blood sugars were also poorly controlled. He was continued on his Metformin 500 mg twice daily and Tresiba was also increased. He is to follow-up with his primary care doctor and was also referred to endocrinology. Patient seen and examined prior to discharge. He had no complaints and was more alert today. Review of systems otherwise negative. Labs and vitals reviewed. Home medication reviewed and reconciled. O/E: Const alert Orientation / Consciousness: more alert today. HEENT head/scalp atraumatic, moist oral mucous membranes and oropharynx normal Head and Scalp: normocephalic Eyes PERRL, EOMs intact bilaterally and conjunctivae normal Neck no lymphadenopathy, supple and no JVD Resp normal respiratory effort, no retractions and no use of accessory muscles Cardio regular rate, regular rhythm, no murmurs and no JVD GI normal to inspection, nondistended, normoactive bowel sounds, soft to palpation and non-tender Extremity normal to inspection, full ROM and no clubbing, cyanosis or edema Skin no rashes or lesions noted, no wounds, skin turgor normal and no jaundice Neuro Sensorium / Orientation: awake, alert and oriented to person Psych Psych Narrative: flat affect Plan is for discharge back to his Assisted living facility today. Rest as per Laya Castro NP-c's note, which I have reviewed and endorsed. Visit Charges Inpatient E&M: 69659 Disch Hosp
[2021-01-23 14:01] LABS: Bedside Glucose 215 mg/dL (70-110)
[2021-01-23 14:03] VITALS: BP 127/68; PULSE 76; RESP 18; TEMP 36.6; O2SAT 100
--- NOTE | 2021-01-23 14:44 | CASEMGMT ---
ANGE faxed d/c orders to [facility]. ANGE called [employer] [facility] and requested wheelchair van transport via [facility]. Awaiting return call regarding pepper picker time. Rianna DAY
--- NOTE | 2021-01-23 15:04 | CASEMGMT ---
SW noted on [facility] website schedule that they will pick patient up at 3p. However, it is 3p so SW assumes they will be here anytime. ANGE notified RN, executive secretary, patient, and Susan at [facility]. Plan: d/c back to [facility]. [facility] transported via van. Rianna DAY
== END 2021-01-23 15:15 | disposition home or self-care (01) | DRG 71 ==
LOC: ED 17:36 → PCU 17:48
PROVIDERS: Nurse Practitioner Family; Physician Assistant; Admitting Provider Family Medicine; Emergency Provider Emergency Medicine; Visit Provider Student in an Organized Health Care Education/Training Program
DX: G93.41 Metabolic encephalopathy (principal); N17.9 Acute kidney failure, unspecified; Z68.41 Body mass index [BMI] 40.0-44.9, adult; E11.649 Type 2 diabetes mellitus with hypoglycemia without coma; D63.1 Anemia in chronic kidney disease; E11.22 Type 2 diabetes mellitus with diabetic chronic kidney disease; D50.9 Iron deficiency anemia, unspecified; E11.40 Type 2 diabetes mellitus with diabetic neuropathy, unspecified; F31.9 Bipolar disorder, unspecified; E66.01 Morbid (severe) obesity due to excess calories; Z79.4 Long term (current) use of insulin; M06.9 Rheumatoid arthritis, unspecified; N18.31 Chronic kidney disease, stage 3a; F41.9 Anxiety disorder, unspecified; I12.9 Hypertensive chronic kidney disease with stage 1 through stage 4 chronic kidney disease, or unspecified chronic kidney disease; K21.9 Gastro-esophageal reflux disease without esophagitis; F17.210 Nicotine dependence, cigarettes, uncomplicated; N40.0 Benign prostatic hyperplasia without lower urinary tract symptoms; E78.2 Mixed hyperlipidemia; E87.5 Hyperkalemia; K59.00 Constipation, unspecified; S91.302D Unspecified open wound, left foot, subsequent encounter; S91.301D Unspecified open wound, right foot, subsequent encounter; X58.XXXD Exposure to other specified factors, subsequent encounter; Z79.899 Other long term (current) drug therapy
CPT/HCPCS: 36415; 70450; 70551; 71045; 74150; 76705; 76770; 78226; 80048; 80053; 80076; 81001; 82009; 82140; 82550; 82570; 82803; 82962; 83605; 83690; 83735; 84100; 84300; 85025; 87426; 93005; 95819; 97110; 97162; 97166; 97530; 97535; 97802; 97803; 99251; 99285; 99406; A9537; J7030; J7050; A4216; G0463; J0610; J2405

== ENCOUNTER 2021-02-13 09:55 | Outpatient (RCR) | payer MEDICARE, MEDICAID, SELFPAY ==
[2021-02-13 10:28] VITALS: BP 122/68; PULSE 82; TEMP 35.7
--- NOTE | 2021-02-13 13:46 | PCM.WC.HP ---
History of Present Illness Date of Service: 02/13/21 Chief Complaint: Left Heel and Buttock Ulcer History of Wound: Mr. Ordoñez is a 55 yo who presents to the wound center due to nonhealing left heel and buttock ulcers. He states that he only noted it 2 weeks ago after he was discharged from the hospital. Currently resides at [facility] where dressings have been done however no significant improvement. Patient states that there has been a foul smell. Not sure how much drainage he has had. History of diabetes mellitus type 2 which is not well controlled. He states that his insulin dose was recently adjusted and since then, his readings have been in the 300s. He denies chills, fever or otherwise feeling of unwell. [facility]LY [facility] Medical History (Updated 02/13/21 @ 14:[address] Lior Salcido MD) Anxiety and depression Bipolar disorder Chronic anemia Decubitus ulcer of left buttock, stage 3 Diabetes Diabetic ulcer of left heel HTN (hypertension) Hypercholesterolemia Morbid obesity Neuropathy Rheumatoid arthritis RUQ abdominal pain Tobacco use Type 2 diabetes mellitus Uncontrolled type 2 diabetes mellitus with hyperosmolar nonketotic hyperglycemia Home Medications Acidophilus 2 tab PO DAILY 11/27/20 [History Last Taken 01/16/21] B12 Active 1,000 mcg PO DAILY 11/27/20 [History Last Taken 01/16/21] amitriptyline 75 mg PO QHS 11/27/20 [History Last Taken 01/14/21] aspirin 81 mg PO DAILY 11/27/20 [History Last Taken 01/16/21] atorvastatin 80 mg PO QHS 11/27/20 [History Last Taken 01/14/21] buspirone 5 mg PO BID 11/27/20 [History Last Taken 01/16/21] cholecalciferol (vitamin D3) [Vitamin D3] 50 mcg PO DAILY 11/27/20 [History Last Taken 01/16/21] duloxetine 60 mg PO QHS 11/27/20 [History Last Taken Unknown] ezetimibe 10 mg PO DAILY 11/27/20 [History Last Taken 01/16/21] ferrous sulfate 325 mg PO DAILY 11/27/20 [History Last Taken 01/16/21] insulin lispro See Protocol SUBCUT TID 11/27/20 [History Last Taken 01/16/21] leflunomide 10 mg PO DAILY 11/27/20 [History Last Taken 01/16/21] metoprolol tartrate 25 mg PO BID 11/27/20 [History Last Taken 01/16/21] omega 5-wea-mfy-fish oil [Fish Oil] 1 cap PO BID 11/27/20 [History Last Taken 01/16/21] pregabalin 200 mg PO TID 11/27/20 [History Last Taken 01/16/21] sertraline 50 mg PO DAILY 11/27/20 [History Last Taken 01/15/21] tamsulosin 0.4 mg PO QHS 11/27/20 [History Last Taken 01/14/21] pantoprazole [Protonix] 40 mg PO BID #60 tab 01/15/21 [Rx Last Taken 01/16/21] amlodipine 10 mg PO DAILY 01/16/21 [History Last Taken 01/16/21] bupropion HCl 150 mg PO DAILY 01/16/21 [History Last Taken 01/16/21] metformin 500 mg PO BID 01/16/21 [History Last Taken 01/16/21] sucralfate 1 g PO ACHS 01/16/21 [History Last Taken 01/16/21] Tresiba FlexTouch U-100 40 unit SUBCUT QHS #0 ml 01/23/21 [Rx Last Taken Unknown] lactulose 20 g PO DAILY 30 Days #900 ml 01/23/21 [Rx Last Taken Unknown] quetiapine 25 mg PO BID #60 tab 01/23/21 [Rx Last Taken Unknown] Allergy/AdvReac Type Severity Reaction Status Date / Time No Known Allergies Allergy Verified 01/16/21 12:27 Family History (Updated 01/11/21 @ 01:[address] Kanwal Russo MD) Mother Diabetes Father Diabetes Hypertension Social History housing: assisted living facility Smoking Status: Light Smoker (<10/day) alcohol intake: never substance use type: does not use ROS Constitutional Constitutional: Denies fatigue, fever(s), frequent falls, headache(s), increased appetite, lethargy or malaise Eyes Eyes: Denies diplopia, discharge from eye(s), discongugate gaze, exophthalmos, eye pain, floaters, foreign body or halo effect ENT HEENT: Denies dysphagia, foreign body in nose, headache(s), mucositis, nasal congestion, nasal discharge or nasal trauma Cardiovascular Cardiovascular: Denies chest pain with activity, cyanosis, dyspnea at rest, dyspnea on exertion, fatigue, flutter in chest or hypertension Respiratory/Chest Respiratory/Chest: Denies dusky skin, dyspnea, dyspnea on exertion, excessive phlegm production, hemoptysis, hoarseness, inability to speak or nail bed cyanosis Gastrointestinal Gastrointestinal: Denies chewing difficulty, coffee ground emesis, constipation, cramping, diarrhea, dry heaves or dyspepsia Genitourinary Genitourinary: Denies abdominal discomfort, anuria, burning urination, dysuria or flank pain Musculoskeletal Musculoskeletal: Denies arthralgias, atrophy, back pain or deformity Integumentary Integumentary: Denies erythema, furuncle, hirsutism, jaundice or lesions Neurologic Neurologic: Denies abnormal speech, behavior changes, burning sensations, convulsions, disequilibrium or dizziness Psychiatric Psychiatric: Denies abnormal sleep pattern, anhedonia, anxiety, auditory hallucinations, behavioral changes, irritability or memory loss Endocrine Endocrinology: Denies cold intolerance, excessive sweating, fatigue, flushing or heat intolerance Allergic/Immunologic Allergic/Immunologic: Denies lip swelling, tongue swelling, hives, eczemia, wheezing or asthma Vital Signs Vital Signs Vital Signs: 02/13/21 10:28 Temperature 96.2 F L Temperature Source Temporal Pulse Rate 82 Blood Pressure 122/68 H Blood Pressure Mean 86 Blood Pressure Source Monitor Blood Pressure Position Semi-Fowlers Blood Pressure Location Left Arm Physical Exam Const alert, oriented x3 and no apparent distress General Appearance: cooperative and comfortable Orientation / Consciousness: awake HEENT normocephalic and head/scalp atraumatic Eyes EOMs intact bilaterally General Eye: normal appearance of both eyes Neck full ROM General: normal visual inspection Resp normal respiratory effort Effort and Inspection: able to speak in complete sentences Skin Wounds: wounds noted Neuro oriented x3, CN's II-XII intact bilaterally and moves all extremities Psych mental status grossly normal Appearance: grossly normal Debridement Note Debridement Note Wound debrided: Left heel Wound Grade/Stage: Grade 3 Type of Debridement: Excisional debridement Anesthesia Used: 4% Lidocaine Solution Depth: Down to and including healthy tissue Percentage of wound debrided: 100 Instrument Used: 5mm curette, #15 blade and Forceps Tissue Removed: Slough and devitalized tissue Severity: Fat Layer Exposed Amount of bleeding with debridement: Mild Bleeding Controlled with: Pressure Patient tolerated procedure: Patient tolerated procedure well Post-Debridement Measurements and Additional Note: Post-Debridement Measurements/Treatment - Nurse 1 - General Ulcer Assessment Start: 02/13/21 10:16 Freq: Status: Active Protocol: SANDRA Activity Type Activity Date Activity User E-Sign Co-Sign Detail Recorded Client Recorded Date Recorded By Document 02/13/21 10:28 KR [id number] 02/13/21 10:44 KR Document 02/13/21 10:55 [facility] [id number] 02/13/21 10:56 BMF 02/13/21 02/13/21 10:28 10:55 - Today's Visit Information Type of service Initial Visit Arrival Mode Wheelchair Patient Identification Verified (Name & Yes ) Vital Signs Temperature (97.8 F-99.1 F) 96.2 F L Temperature Source Temporal Pulse Rate (60-100) 82 Pulse Location Monitor Blood Pressure (90/60-120/80) 122/68 H Blood Pressure Mean 86 Source Monitor Position Semi-Fowlers Blood Pressure Location Left Arm History Since Last Visit- (Skip if this is Patient's initial visit) Have you changed medications since your No last visit? Any new allergies or adverse reactions No Had a fall/change in ADL's that may No increase risk of falls Signs or symptoms of abuse and/or No neglect since last visit Have you been in the hospital since your No last visit? Has dressing in place as prescribed No Has compression in place as prescribed N/A Has offloadiing in place as prescribed N/A Experienced any changes in pain level or No management Left Footwear Regular Shoe Right Footwear Regular Shoe Pain Scale: 0-10 Numeric Is Patient Pain Free? Yes Lower Extremity Assessment/ Foot Assessment/ Toe Nail Assessment Right -Posterior Tibial Palpable No -Posterior Tibial Doppler Multiphasic -Dorsalis Pedis Palpable No -Dorsalis Pedis Doppler Monophasic -Hair Growth on Legs No -Hair Growth on Toes No -Temperature of Extremity Warm -Other Deformity No -Prior Foot Ulcer No -Charcot Joint No -Prior Amputation No -Thick Yes -Discolored Yes -Deformed No -Improper Length & Hygeine No Left -Posterior Tibial Palpable No -Posterior Tibial Doppler Monophasic -Dorsalis Pedis Palpable No -Dorsalis Pedis Doppler Multiphasic -Hair Growth on Legs No -Hair Growth on Toes No -Temperature of Extremity Warm -Other Deformity No -Prior Foot Ulcer No -Charcot Joint No -Prior Amputation No -Thick Yes -Discolored Yes -Deformed No -Improper Length & Hygeine No Neuropathy Assessment Feet - Top Side and Bottom <Entered> (a) (a) 1 - - WC - Nurse 1 - General Ulcer Measurement Start: 02/13/21 10:16 Freq: Status: Active Protocol: Activity Type Activity Date Activity User E-Sign Co-Sign Detail Recorded Client Recorded Date Recorded By Document 02/13/21 10:28 SHAE [id number] 02/13/21 10:44 SHAE 02/13/21 10:28 Wound Center Nurse 1 #4 Left Buttock cluster -Current Size (cm) - Length 0.8 -Current Size (cm) - Width 2.5 -Current Size (cm) - Depth 0.1 -Total Square Cm 2.00 -Exudate Amt Small -Exudate Type Serosanguineous -Wound Margin Distinct, Outline Attached -Granulation Amt Small (1-33%) -Granulation Quality [place] -Necrosis Amt None Present (0 %) -Texture (Camila-wound Skin Appearance) Assessed, Scarring -Moisture (Camila-wound Skin Appearance) Assessed,Dry/ Scaly -Color (Camila-wound Skin Appearance) No Abnormality, Assessed -Temperature (Camila-wound Skin No Abnormality Appearance) (Pt Warm) -Tenderness on Palpation (Camila-wound No Skin Appearance) -Ulcer Cleansing Rinsed/ Irrigated with Saline -Foul Odor after Cleansing No -Anesthetic Used 4% Lidocaine Solution,5% Lidocaine Gel #3 Left Heel -Current Size (cm) - Length 4.7 -Current Size (cm) - Width 4.1 -Current Size (cm) - Depth 0.2 -Total Square Cm 19.27 -Exudate Amt Large -Exudate Type Serosanguineous -Wound Margin Distinct, Outline Attached -Necrosis Amt Large (67-100%) -Necrotic Tissue Type Eschar -Texture (Camila-wound Skin Appearance) Assessed, Scarring -Moisture (Camila-wound Skin Appearance) Assessed, Maceration -Color (Camila-wound Skin Appearance) No Abnormality, Assessed -Temperature (Camila-wound Skin No Abnormality Appearance) (Pt Warm) -Tenderness on Palpation (Camila-wound No Skin Appearance) -Ulcer Cleansing Soap and Water -Foul Odor after Cleansing No -Anesthetic Used 4% Lidocaine Solution,5% Lidocaine Gel Right Calf (cm) 47.6 Right Ankle (cm) 29.7 Left Calf (cm) 49.3 Left Ankle (cm) 30.1 WC - Nurse 2 - General Ulcer CM Notes Start: 02/13/21 10:16 Freq: Status: Active Protocol: Activity Type Activity Date Activity User E-Sign Co-Sign Detail Recorded Client Recorded Date Recorded By Document 02/13/21 11:04 MW [id number] 02/13/21 11:16 MW 02/13/21 11:04 Wound Center Nurse 2 #4 Left Buttock cluster -Time 11:07 -Correct Patient Yes -Correct Side, Site, Position Yes -Correct Procedure Yes -Procedure Performed Yes -Type of Procedure Debridement -Clinical Debridement Subcutaneous -Tissue Removed Subcutaneous -Post Debridement (cm) - Length 1.5 -Post Debridement (cm) - Width 3.0 -Post Debridement (cm) - Depth 0.1 -Total Square (Post) (cm) 4.50 -Area of Debridement (cm) - Length 1.5 -Area of Debridement (cm) - Width 3.0 -Total Square (Area) (cm) 4.50 -Tunneling No -Undermining/Tunneling No -Circular Undermining No -Wound/Ulcer Outcome Not Healed -Ulcer Cleansing Rinsed/ Irrigated with Saline -Foul Odor after Cleansing No -Bioengineered Tissue No -Bleeding Controlled with Pressure -Offloading No -Treatment Response Procedure Tolerated Well -Debridement - Subq, 1st 20sq cm Yes -Debridement, SubQ, ea addt'l 20sq cm 1 or part thereof #3 Left Heel -Time 11:05 -Correct Patient Yes -Correct Side, Site, Position Yes -Correct Procedure Yes -Procedure Performed Yes -Type of Procedure Debridement -Clinical Debridement Subcutaneous -Tissue Removed Subcutaneous -Post Debridement (cm) - Length 3.7 -Post Debridement (cm) - Width 4.5 -Post Debridement (cm) - Depth 0.1 -Total Square (Post) (cm) 16.65 -Area of Debridement (cm) - Length 3.7 -Area of Debridement (cm) - Width 4.5 -Total Square (Area) (cm) 16.65 -Tunneling No -Undermining/Tunneling No -Circular Undermining No -Wound/Ulcer Outcome Not Healed -Ulcer Cleansing Rinsed/ Irrigated with Saline -Foul Odor after Cleansing No -Bioengineered Tissue No -Bleeding Controlled with Pressure -Offloading No -Treatment Response Procedure Tolerated Well -Debridement - Subq, 1st 20sq cm No Pain Scale: 0-10 Numeric Is Patient Pain Free? Yes - Nurse 3 - General Ulcer D/C NN Start: 02/13/21 10:16 Freq: Status: Active Protocol: Activity Type Activity Date Activity User E-Sign Co-Sign Detail Recorded Client Recorded Date Recorded By Document 02/13/21 11:24 [facility] [id number] 02/13/21 11:26 [facility] 02/13/21 11:24 Wound Care Nurse 3 #4 Left Buttock cluster -Ulcer Cleansing Rinsed/ Irrigated with Saline -Foul Odor after Cleansing No -Primary Dressing Applied Fibracol Plus 4x4,Mepilex Border -Other Covering drsg per dl shirt line operator -Fibracol Plus 4x4 1 -Mepilex Border 1 #3 Left Heel -Ulcer Cleansing Rinsed/ Irrigated with Saline -Foul Odor after Cleansing No -Primary Dressing Applied Fibracol Plus 4x4 -Other Dressing drsg per dl shirt line operator -Primary Dressing Covered/Secured with Dry Gauze & Roll Gauze, Secured with Tape,Other -Other Covering heel hat -Fibracol Plus 4x4 0 Pain Scale: 0-10 Numeric Is Patient Pain Free? Yes - Visit Discharge Discharge Condition Stable Ambulatory Status Wheelchair Transportation [facility] TRANSPOR Other [facility] Additional Wound Wound debrided: Left buttock Wound Grade/Stage: Stage III Type of Debridement: Excisional debridement Anesthesia Used: 4% Lidocaine Solution Depth: Down to and including healthy tissue and in the subcutaneous layer Percentage of wound debrided: 100 Instrument Used: 5mm curette Tissue Removed: Slough and devitalized tissue Severity: Fat Layer Exposed Amount of bleeding with debridement: Mild Bleeding Controlled with: Pressure Patient tolerated procedure: Patient tolerated procedure well Charges/Coding Visit Charges Office Visits / Consults: [id number] OV L4 New Procedures Integumentary [id number]: [id number] Ana María subq tissue 20 sq cm/< Assessment/Plan Assessment/Plan (1) Diabetic ulcer of left heel: CODE(S): E11.621 - Type 2 diabetes mellitus with foot ulcer; L97.429 - Non-pressure chronic ulcer of left heel and midfoot with unspecified severity QUALIFIERS: Diabetes mellitus type: type 2 Non-pressure ulcer stage: with fat layer exposed Qualified Code(s): E11.621 - Type 2 diabetes mellitus with foot ulcer; L97.422 - Non-pressure chronic ulcer of left heel and midfoot with fat layer exposed (2) Decubitus ulcer of left buttock, stage 3: CODE(S): L89.323 - Pressure ulcer of left buttock, stage 3 (3) Type 2 diabetes mellitus: CODE(S): E11.9 - Type 2 diabetes mellitus without complications QUALIFIERS: Diabetes mellitus complication detail: with foot ulcer Diabetes mellitus complication status: with skin complications Diabetes mellitus assisted insulin use: with exterminator use Qualified Code(s): E11.621 - Type 2 diabetes mellitus with foot ulcer; L97.509 - Non-pressure chronic ulcer of other part of unspecified foot with unspecified severity; Z79.4 - retirement (current) use of insulin (4) Tobacco use: CODE(S): Z72.0 - Tobacco use PLAN: Nonhealing left heel and buttock ulcers. Patient believes it has been present for 2 weeks however looking at the ulcer, I believe they have been present for more than 2 weeks. Debridement done as documented above, procedure was well-tolerated. Cultures taken. Fibracol to both ulcers, cover with Adaptic. Change daily to twice daily depending on drainage. Offloading very strongly recommended. Optimal diabetes control discussed. He was advised to speak with his visiting physician about medication adjustments. Increase vitamin C, D and zinc. He voiced understanding. Increased protein intake also discussed. Follow-up in 1 week. He was advised to call with any questions or concerns. This note was generated with [employer] software. It may contain incorrect words, spelling, and punctuation that were not noted in checking the note before signing.
== END 2021-02-13 23:59 ==
LOC: WC 09:55
PROVIDERS: PCP Nurse Practitioner Adult Health; Visit Provider Internal Medicine
DX: E11.621 Type 2 diabetes mellitus with foot ulcer (principal); L97.422 Non-pressure chronic ulcer of left heel and midfoot with fat layer exposed; L89.323 Pressure ulcer of left buttock, stage 3; Z79.4 Long term (current) use of insulin; D64.9 Anemia, unspecified; E66.01 Morbid (severe) obesity due to excess calories; E78.00 Pure hypercholesterolemia, unspecified; F41.9 Anxiety disorder, unspecified; F31.9 Bipolar disorder, unspecified; I10 Essential (primary) hypertension; M06.9 Rheumatoid arthritis, unspecified; E11.40 Type 2 diabetes mellitus with diabetic neuropathy, unspecified; E11.00 Type 2 diabetes mellitus with hyperosmolarity without nonketotic hyperglycemic-hyperosmolar coma (NKHHC); Z79.82 Long term (current) use of aspirin; F17.200 Nicotine dependence, unspecified, uncomplicated
CPT/HCPCS: 11042; 11045; 87070; 87075; 87077; 87186; 87205; 99213; G0463

== ENCOUNTER 2021-03-13 09:00 | Outpatient (RCR) | payer MEDICARE, MEDICAID, SELFPAY ==
[2021-02-20 09:17] VITALS: BP 115/67; PULSE 79
--- NOTE | 2021-02-20 12:44 | PN.PCM_ITS ---
History of Present Illness Date of Service: 02/21/21 Chief Complaint: Left Heel and Buttock Ulcer History of Wound: Mr. Ordoñez is a 55 yo who presents to the wound center due to nonhealing left heel and buttock ulcers. He states that he only noted it 2 weeks ago after he was discharged from the hospital. Currently resides at [facility] where dressings have been done however no significant improvement. Patient states that there has been a foul smell. Not sure how much drainage he has had. History of diabetes mellitus type 2 which is not well controlled. He states that his insulin dose was recently adjusted and since then, his readings have been in the 300s. He denies chills, fever or otherwise feeling of unwell. Subjective Subjective No new concerns at this time. States that his dressings have been done as r ecommended. Objective Data Objective Data Vital Signs: Vital Signs Pulse BP 79 115/67 02/20/21 09:17 02/20/21 09:17 Charges/Coding Procedures Integumentary 111xxx-113xx: [id number] Ana María subq tissue 20 sq cm/< Physical Exam Const alert, oriented x3 and no apparent distress General Appearance: cooperative and comfortable Orientation / Consciousness: awake HEENT normocephalic and head/scalp atraumatic Eyes EOMs intact bilaterally General Eye: normal appearance of both eyes Neck full ROM General: normal visual inspection Resp normal respiratory effort Effort and Inspection: able to speak in complete sentences Skin Wounds: wounds noted Neuro oriented x3, CN's II-XII intact bilaterally and moves all extremities Psych mental status grossly normal Appearance: grossly normal Debridement Note Debridement Note Wound debrided: Left heel Type of Debridement: Excisional debridement Anesthesia Used: 4% Lidocaine Solution Depth: Down to and including healthy tissue and in the subcutaneous layer Percentage of wound debrided: 100 Instrument Used: 5mm curette Tissue Removed: Slough and devitalized tissue Severity: Fat Layer Exposed Amount of bleeding with debridement: Mild Bleeding Controlled with: Pressure Patient tolerated procedure: Patient tolerated procedure well Post-Debridement Measurements and Additional Note: Post-Debridement Measurements/Treatment WC - Nurse 1 - General Ulcer Assessment Start: 02/20/21 09:12 Freq: Status: Active Protocol: SANDRA Activity Type Activity Date Activity User E-Sign Co-Sign Detail Recorded Client Recorded Date Recorded By Document 02/20/21 09:17 MAURA [id number] 02/20/21 09:19 MS 02/20/21 09:17 - Today's Visit Information Type of service Follow-up Visit (Physician/CLASSIFICATION COUNSELOR ) Arrival Mode Wheelchair Patient Identification Verified (Name & Yes ) Vital Signs Temperature Source Temporal Pulse Rate (60-100) 79 Pulse Location Monitor Blood Pressure (90/60-120/80) 115/67 Blood Pressure Mean (mm Hg) 83 Source Monitor Position Sitting Blood Pressure Location Right Arm History Since Last Visit- (Skip if this is Patient's initial visit) Have you changed medications since your No last visit? Any new allergies or adverse reactions No Had a fall/change in ADL's that may No increase risk of falls Signs or symptoms of abuse and/or No neglect since last visit Have you been in the hospital since your No last visit? Has dressing in place as prescribed Yes Has compression in place as prescribed N/A Has offloadiing in place as prescribed N/A Experienced any changes in pain level or No management Left Footwear Regular Shoe Right Footwear Regular Shoe Pain Scale: 0-10 Numeric Is Patient Pain Free? Yes - Nurse 1 - General Ulcer Measurement Start: 02/20/21 09:12 Freq: Status: Active Protocol: Activity Type Activity Date Activity User E-Sign Co-Sign Detail Recorded Client Recorded Date Recorded By Document 02/20/21 09:17 MAURA [id number] 02/20/21 09:19 MAURA 02/20/21 09:17 Wound Center Nurse 1 #4 Left Buttock cluster -Current Size (cm) - Length 0.8 -Current Size (cm) - Width 2.5 -Current Size (cm) - Depth 0.1 -Total Square Cm 2.00 -Exudate Amt Small -Exudate Type Serosanguineous -Wound Margin Distinct, Outline Attached -Granulation Amt Small (1-33%) -Granulation Quality Red -Necrosis Amt Small (1-33%) -Necrotic Tissue Type Adherent Slough -Texture (Camila-wound Skin Appearance) Assessed, Scarring -Moisture (Camila-wound Skin Appearance) No Abnormality, Assessed -Color (Camila-wound Skin Appearance) No Abnormality, Assessed -Temperature (Camila-wound Skin No Abnormality Appearance) (Pt Warm) -Tenderness on Palpation (Camila-wound No Skin Appearance) -Ulcer Cleansing Rinsed/ Irrigated with Saline -Foul Odor after Cleansing No -Anesthetic Used 5% Lidocaine Gel #3 Left Heel -Current Size (cm) - Length 3.5 -Current Size (cm) - Width 4 -Current Size (cm) - Depth 0.1 -Total Square Cm 14.0 -Exudate Amt Large -Exudate Type Serosanguineous -Wound Margin Distinct, Outline Attached -Granulation Amt Large (67-100%) -Granulation Quality Red -Necrosis Amt Large (67-100%) -Necrotic Tissue Type Adherent Slough -Texture (Camila-wound Skin Appearance) Assessed, Scarring -Moisture (Camila-wound Skin Appearance) No Abnormality, Assessed -Color (Camila-wound Skin Appearance) No Abnormality, Assessed -Temperature (Camila-wound Skin No Abnormality Appearance) (Pt Warm) -Tenderness on Palpation (Camila-wound No Skin Appearance) -Ulcer Cleansing Rinsed/ Irrigated with Saline -Foul Odor after Cleansing No -Anesthetic Used 5% Lidocaine Gel WC - Nurse 2 - General Ulcer CM Notes Start: 02/20/21 09:12 Freq: Status: Active Protocol: Activity Type Activity Date Activity User E-Sign Co-Sign Detail Recorded Client Recorded Date Recorded By Document 02/20/21 09:24 MW [id number] 02/20/21 09:39 MW 02/20/21 09:24 Wound Center Nurse 2 #4 Left Buttock cluster -Time 09:25 -Correct Patient Yes -Correct Side, Site, Position Yes -Correct Procedure Yes -Procedure Performed Yes -Type of Procedure Debridement -Clinical Debridement Subcutaneous -Tissue Removed Subcutaneous -Post Debridement (cm) - Length 1.0 -Post Debridement (cm) - Width 2.2 -Post Debridement (cm) - Depth 1.7 -Total Square (Post) (cm) 2.20 -Area of Debridement (cm) - Length 1.0 -Area of Debridement (cm) - Width 2.2 -Total Square (Area) (cm) 2.20 -Tunneling No -Undermining/Tunneling No -Circular Undermining No -Wound/Ulcer Outcome Not Healed -Ulcer Cleansing Rinsed/ Irrigated with Saline -Foul Odor after Cleansing No -Bioengineered Tissue No -Bleeding Controlled with Pressure -Offloading No -Treatment Response Procedure Tolerated Well -Debridement - Subq, 1st 20sq cm Yes #3 Left Heel -Time 09:26 -Correct Patient Yes -Correct Side, Site, Position Yes -Correct Procedure Yes -Procedure Performed Yes -Type of Procedure Debridement -Clinical Debridement Subcutaneous -Tissue Removed Subcutaneous -Post Debridement (cm) - Length 3.1 -Post Debridement (cm) - Width 4.0 -Post Debridement (cm) - Depth 0.1 -Total Square (Post) (cm) 12.40 -Area of Debridement (cm) - Length 3.1 -Area of Debridement (cm) - Width 4.0 -Total Square (Area) (cm) 12.40 -Tunneling No -Undermining/Tunneling No -Circular Undermining No -Wound/Ulcer Outcome Not Healed -Ulcer Cleansing Rinsed/ Irrigated with Saline -Foul Odor after Cleansing No -Bioengineered Tissue No -Bleeding Controlled with Pressure -Offloading No -Treatment Response Procedure Tolerated Well -Debridement - Subq, 1st 20sq cm No Pain Scale: 0-10 Numeric Is Patient Pain Free? Yes - Nurse 3 - General Ulcer D/C NN Start: 02/20/21 09:12 Freq: Status: Active Protocol: Activity Type Activity Date Activity User E-Sign Co-Sign Detail Recorded Client Recorded Date Recorded By Document 02/20/21 09:53 SHAE [id number] 02/20/21 09:54 KR 02/20/21 09:53 Wound Care Nurse 3 #4 Left Buttock cluster -Primary Dressing Applied Aquacel Rope, Mepilex Border -Aquacel Rope 2 -Mepilex Border 1 Pain Scale: 0-10 Numeric Is Patient Pain Free? Yes - Visit Discharge Discharge Condition Stable Ambulatory Status Wheelchair Transportation busby Additional Wound Wound debrided: Left buttock Type of Debridement: Excisional debridement Anesthesia Used: 4% Lidocaine Solution Depth: Down to and including healthy tissue Percentage of wound debrided: 100 Instrument Used: 3mm curette, #15 blade and Forceps Tissue Removed: Slough and devitalized tissue Severity: Fat Layer Exposed Amount of bleeding with debridement: Mild Bleeding Controlled with: Pressure Patient tolerated procedure: Patient tolerated procedure well Assessment/Plan Assessment/Plan (1) Diabetic ulcer of left heel: CODE(S): E11.621 - Type 2 diabetes mellitus with foot ulcer; L97.429 - Non-pressure chronic ulcer of left heel and midfoot with unspecified severity QUALIFIERS: Diabetes mellitus type: type 2 Non-pressure ulcer stage: with fat layer exposed Qualified Code(s): E11.621 - Type 2 diabetes mellitus with foot ulcer; L97.422 - Non-pressure chronic ulcer of left heel and midfoot with fat layer exposed (2) Decubitus ulcer of left buttock, stage 3: CODE(S): L89.323 - Pressure ulcer of left buttock, stage 3 (3) Type 2 diabetes mellitus: CODE(S): E11.9 - Type 2 diabetes mellitus without complications QUALIFIERS: Diabetes mellitus complication detail: with foot ulcer Diabetes mellitus complication status: with skin complications Diabetes mellitus terminal system operator insulin use: with terminal system operator use Qualified Code(s): E11.621 - Type 2 diabetes mellitus with foot ulcer; L97.509 - Non-pressure chronic ulcer of other part of unspecified foot with unspecified severity; Z79.4 - superintendent container terminal (current) use of insulin (4) Tobacco use: CODE(S): Z72.0 - Tobacco use PLAN: Left heel is improving. Left buttock is deeper likely had started out as an abscess. Debridement done as documented above, procedure was well- tolerated. Cultures with no significant growth, hold off antibiotics at this time. Switch left heel dressing to Santyl, change daily. Switch left buttock to Aquacel rope, change daily to twice daily depending on drainage. Cover both with Adaptic. Offloading very strongly recommended. Optimal diabetes control discussed. He has been advised to speak with his visiting physician about medication adjustment for better diabetes control. Vascular studies ordered. Increase vitamin C, D and zinc. He voiced understanding. Increased protein intake also discussed. Follow-up in 1 week. He was advised to call with any questions or concerns. This note was generated with [employer] software. It may contain incorrect words, spelling, and punctuation that were not noted in checking the note before signing.
[2021-03-06 09:13] VITALS: BP 112/68; PULSE 81; TEMP 35.6
--- NOTE | 2021-03-06 12:51 | PN.PCM_ITS ---
History of Present Illness Date of Service: 03/06/21 Chief Complaint: Left Heel and Buttock Ulcer History of Wound: Mr. Ordoñez is a 55 yo who presents to the wound center due to nonhealing left heel and buttock ulcers. He states that he only noted it 2 weeks ago after he was discharged from the hospital. Currently resides at [facility] where dressings have been done however no significant improvement. Patient states that there has been a foul smell. Not sure how much drainage he has had. History of diabetes mellitus type 2 which is not well controlled. He states that his insulin dose was recently adjusted and since then, his readings have been in the 300s. He denies chills, fever or otherwise feeling of unwell. Subjective Subjective Improving, no new concerns at this time. Yet to get his vascular studies done Objective Data Objective Data Vital Signs: Vital Signs Temp Pulse BP 96.0 F L 81 112/68 03/06/21 09:13 03/06/21 09:13 03/06/21 09:13 Charges/Coding Procedures Integumentary 111xxx-113xx: 14416 Ana María subq tissue 20 sq cm/< Physical Exam Const alert, oriented x3 and no apparent distress General Appearance: cooperative and comfortable Orientation / Consciousness: awake HEENT normocephalic and head/scalp atraumatic Eyes EOMs intact bilaterally General Eye: normal appearance of both eyes Neck full ROM General: normal visual inspection Resp normal respiratory effort Effort and Inspection: able to speak in complete sentences Skin Wounds: wounds noted Neuro oriented x3, CN's II-XII intact bilaterally and moves all extremities Psych mental status grossly normal Appearance: grossly normal Debridement Note Debridement Note Wound debrided: Left heel Type of Debridement: Excisional debridement Anesthesia Used: 4% Lidocaine Solution Depth: Down to and including healthy tissue and in the subcutaneous layer Percentage of wound debrided: 100 Instrument Used: 5mm curette Tissue Removed: Slough and devitalized tissue Severity: Fat Layer Exposed Amount of bleeding with debridement: Mild Bleeding Controlled with: Pressure Patient tolerated procedure: Patient tolerated procedure well Post-Debridement Measurements and Additional Note: Post-Debridement Measurements/Treatment [id number] - Nurse 1 - General Ulcer Assessment Start: 02/20/21 09:12 Freq: Status: Active Protocol: SANDRA Activity Type Activity Date Activity User E-Sign Co-Sign Detail Recorded Client Recorded Date Recorded By Document 02/20/21 09:17 AK [id number] 02/20/21 09:19 AK Document 03/06/21 09:13 AK [id number] 03/06/21 09:18 AK 02/20/21 03/06/21 09:17 09:13 WC - Today's Visit Information Type of service Follow-up Visit Follow-up Visit (Physician/DIRECTOR RETAIL BRAND DEVELOPMENT (Physician/DIRECTOR RETAIL BRAND DEVELOPMENT ) ) Arrival Mode Wheelchair Wheelchair Patient Identification Verified (Name & Yes Yes ) Vital Signs Temperature (97.8 F-99.1 F) 96.0 F L Temperature Source Temporal Temporal Pulse Rate (60-100) 79 81 Pulse Location Monitor Monitor Blood Pressure (90/60-120/80) 115/67 112/68 Blood Pressure Mean (mm Hg) 83 82 Source Monitor Monitor Position Sitting Semi-Fowlers Blood Pressure Location Right Arm Left Arm History Since Last Visit- (Skip if this is Patient's initial visit) Have you changed medications since your No No last visit? Any new allergies or adverse reactions No No Had a fall/change in ADL's that may No No increase risk of falls Signs or symptoms of abuse and/or No No neglect since last visit Have you been in the hospital since your No No last visit? Has dressing in place as prescribed Yes Yes Has compression in place as prescribed N/A N/A Has offloadiing in place as prescribed N/A N/A Experienced any changes in pain level or No No management Left Footwear Regular Shoe Right Footwear Regular Shoe Pain Scale: 0-10 Numeric Is Patient Pain Free? Yes Yes - Nurse 1 - General Ulcer Measurement Start: 02/20/21 09:12 Freq: Status: Active Protocol: Activity Type Activity Date Activity User E-Sign Co-Sign Detail Recorded Client Recorded Date Recorded By Document 02/20/21 09:17 AK [id number] 02/20/21 09:19 AK Document 03/06/21 09:13 AK [id number] 03/06/21 09:18 AK 02/20/21 03/06/21 09:17 09:13 Wound Center Nurse 1 #4 Left Buttock cluster -Current Size (cm) - Length 0.8 4 -Current Size (cm) - Width 2.5 3 -Current Size (cm) - Depth 0.1 0.3 -Total Square Cm 2.00 12 -Exudate Amt Small None Present -Exudate Type Serosanguineous -Wound Margin Distinct, Distinct, Outline Outline Attached Attached -Granulation Amt Small (1-33%) Small (1-33%) -Granulation Quality Red [place] -Necrosis Amt Small (1-33%) None Present (0 %) -Necrotic Tissue Type Adherent Slough -Texture (Camila-wound Skin Appearance) Assessed, Assessed, Scarring Scarring -Moisture (Camila-wound Skin Appearance) No Abnormality, No Abnormality, Assessed Assessed -Color (Camila-wound Skin Appearance) No Abnormality, No Abnormality, Assessed Assessed -Temperature (Camila-wound Skin No Abnormality No Abnormality Appearance) (Pt Warm) (Pt Warm) -Tenderness on Palpation (Camila-wound No No Skin Appearance) -Ulcer Cleansing Rinsed/ Rinsed/ Irrigated with Irrigated with Saline Saline -Foul Odor after Cleansing No No -Anesthetic Used 5% Lidocaine 5% Lidocaine Gel Gel #3 Left Heel -Current Size (cm) - Length 3.5 3.4 -Current Size (cm) - Width 4 4.1 -Current Size (cm) - Depth 0.1 0.1 -Total Square Cm 14.0 13.94 -Exudate Amt Large Medium -Exudate Type Serosanguineous Serosanguineous -Wound Margin Distinct, Distinct, Outline Outline Attached Attached -Granulation Amt Large (67-100%) Medium (34-66%) -Granulation Quality Red Red -Necrosis Amt Large (67-100%) Medium (34-66%) -Necrotic Tissue Type Adherent Slough Adherent Slough -Texture (Camila-wound Skin Appearance) Assessed, Assessed, Scarring Scarring -Moisture (Camila-wound Skin Appearance) No Abnormality, No Abnormality, Assessed Assessed -Color (Camila-wound Skin Appearance) No Abnormality, No Abnormality, Assessed Assessed -Temperature (Camila-wound Skin No Abnormality No Abnormality Appearance) (Pt Warm) (Pt Warm) -Tenderness on Palpation (Camila-wound No No Skin Appearance) -Ulcer Cleansing Rinsed/ Rinsed/ Irrigated with Irrigated with Saline Saline -Foul Odor after Cleansing No No -Anesthetic Used 5% Lidocaine 5% Lidocaine Gel Gel WC - Nurse 2 - General Ulcer CM Notes Start: 02/20/21 09:12 Freq: Status: Active Protocol: Activity Type Activity Date Activity User E-Sign Co-Sign Detail Recorded Client Recorded Date Recorded By Document 02/20/21 09:24 MW [id number] 02/20/21 09:39 MW Document 03/06/21 09:38 MW [id number] 03/06/21 09:44 MW 02/20/21 03/06/21 09:24 09:38 Wound Center Nurse 2 #4 Left Buttock cluster -Time 09:25 09:39 -Correct Patient Yes Yes -Correct Side, Site, Position Yes Yes -Correct Procedure Yes Yes -Procedure Performed Yes Yes -Type of Procedure Debridement Debridement -Clinical Debridement Subcutaneous Subcutaneous -Tissue Removed Subcutaneous Subcutaneous -Post Debridement (cm) - Length 1.0 0.2 -Post Debridement (cm) - Width 2.2 0.6 -Post Debridement (cm) - Depth 1.7 0.9 -Total Square (Post) (cm) 2.20 0.12 -Area of Debridement (cm) - Length 1.0 0.2 -Area of Debridement (cm) - Width 2.2 0.6 -Total Square (Area) (cm) 2.20 0.12 -Tunneling No No -Undermining/Tunneling No No -Circular Undermining No No -Wound/Ulcer Outcome Not Healed Not Healed -Ulcer Cleansing Rinsed/ Rinsed/ Irrigated with Irrigated with Saline Saline -Foul Odor after Cleansing No No -Bioengineered Tissue No No -Bleeding Controlled with Pressure Pressure -Offloading No No -Treatment Response Procedure Procedure Tolerated Well Tolerated Well -Debridement - Subq, 1st 20sq cm Yes Yes #3 Left Heel -Time 09:26 09:40 -Correct Patient Yes Yes -Correct Side, Site, Position Yes Yes -Correct Procedure Yes Yes -Procedure Performed Yes Yes -Type of Procedure Debridement Debridement -Clinical Debridement Subcutaneous Subcutaneous -Tissue Removed Subcutaneous Subcutaneous -Post Debridement (cm) - Length 3.1 3.0 -Post Debridement (cm) - Width 4.0 3.6 -Post Debridement (cm) - Depth 0.1 0.1 -Total Square (Post) (cm) 12.40 10.80 -Area of Debridement (cm) - Length 3.1 3.0 -Area of Debridement (cm) - Width 4.0 3.6 -Total Square (Area) (cm) 12.40 10.80 -Tunneling No No -Undermining/Tunneling No No -Circular Undermining No No -Wound/Ulcer Outcome Not Healed Not Healed -Ulcer Cleansing Rinsed/ Rinsed/ Irrigated with Irrigated with Saline Saline -Foul Odor after Cleansing No No -Bioengineered Tissue No No -Bleeding Controlled with Pressure Pressure -Offloading No No -Treatment Response Procedure Procedure Tolerated Well Tolerated Well -Debridement - Subq, 1st 20sq cm No No Pain Scale: 0-10 Numeric Is Patient Pain Free? Yes Yes WC - Nurse 3 - General Ulcer D/C NN Start: 02/20/21 09:12 Freq: Status: Active Protocol: Activity Type Activity Date Activity User E-Sign Co-Sign Detail Recorded Client Recorded Date Recorded By Document 02/20/21 09:53 SHAE [id number] 02/20/21 09:54 SHAE 02/20/21 09:53 Wound Care Nurse 3 #4 Left Buttock cluster -Primary Dressing Applied Aquacel Rope, Mepilex Border -Aquacel Rope 2 -Mepilex Border 1 Pain Scale: 0-10 Numeric Is Patient Pain Free? Yes WC - Visit Discharge Discharge Condition Stable Ambulatory Status Wheelchair Transportation gilcre Additional Wound Wound debrided: Left buttock Type of Debridement: Excisional debridement Anesthesia Used: 4% Lidocaine Solution Depth: Down to and including healthy tissue and in the subcutaneous layer Percentage of wound debrided: 100 Instrument Used: 3mm curette Tissue Removed: Slough and devitalized tissue Severity: Fat Layer Exposed Amount of bleeding with debridement: Mild Bleeding Controlled with: Pressure Patient tolerated procedure: Patient tolerated procedure well Assessment/Plan Assessment/Plan (1) Diabetic ulcer of left heel: CODE(S): E11.621 - Type 2 diabetes mellitus with foot ulcer; L97.429 - Non-pressure chronic ulcer of left heel and midfoot with unspecified severity QUALIFIERS: Diabetes mellitus type: type 2 Non-pressure ulcer stage: with fat layer exposed Qualified Code(s): E11.621 - Type 2 diabetes mellitus with foot ulcer; L97.422 - Non-pressure chronic ulcer of left heel and midfoot with fat layer exposed (2) Decubitus ulcer of left buttock, stage 3: CODE(S): L89.323 - Pressure ulcer of left buttock, stage 3 (3) Type 2 diabetes mellitus: CODE(S): E11.9 - Type 2 diabetes mellitus without complications QUALIFIERS: Diabetes mellitus penitentiary insulin use: with camera prototyping engineer use Diabetes mellitus complication status: with skin complications Diabetes mellitus complication detail: with foot ulcer Qualified Code(s): E11.621 - Type 2 diabetes mellitus with foot ulcer; L97.509 - Non-pressure chronic ulcer of other part of unspecified foot with unspecified severity; Z79.4 - section hand helper (current) use of insulin (4) Tobacco use: CODE(S): Z72.0 - Tobacco use PLAN: Improving. Debridement done as documented above, procedure was well-tolerated. Continue Santyl to left heel for 2 weeks, change daily. Continue Aquacel rope to left buttock, change daily to twice daily depending on drainage. Cover both with Adaptic. Offloading very strongly recommended. Optimal diabetes control discussed. He has been advised to speak with his visiting physician about medication adjustment for better diabetes control. Vascular studies scheduled for next . We will see in the wound center in 2 weeks. Increase vitamin C, D and zinc. He voiced understanding. Increased protein intake also discussed. He was advised to call with any questions or concerns. This note was generated with [employer] dictation software. It may contain incorrect words, spelling, and punctuation that were not noted in checking the note before signing.
--- NOTE | 2021-03-13 09:03 | VDLE_ITS ---
Reason For Study: edema RIGHT LEFT CFV is compressible, spontaneous, phasic, CFV is compressible, spontaneous, phasic, competent and demonstrates normal competent, and demonstrates normal augmentation. augmentation. FV is compressible, spontaneous, phasic, FV is compressible, spontaneous, phasic, competent and demonstrates normal competent and demonstrates normal augmentation. augmentation. POP V is compressible, spontaneous, phasic, POP V is compressible, spontaneous, phasic, competent and demonstrates normal competent and demonstrates normal augmentation. augmentation. T/P Trunk is compressible. T/P Trunk is compressible. PTV is compressible. PTV is compressible. RT PerV is compressible. LT PerV is compressible. SFJ is competent and measures .84 cm. SFJ is competent and measures .7 cm. GSV proximal thigh measures .32 x .34 cm. GSV proximal thigh measures .46 x .47 cm. GSV at knee measures .34 x .38 cm. GSV at knee measures .46 x .5 cm. GSV above knee is competent. GSV above knee is competent. GSV below knee is INCOMPETENT for greater GSV below knee is INCOMPETENT for greater than 0.5 seconds. than 0.5 seconds. SSV proximal calf is competent and SSV proximal calf is competent and measures .18 x .19 cm. measures .16 x .14 cm. Procedure Supervisor Liquefaction V 10 cm proximal to the medial This is a venous duplex using B-mode, color malleolus is incompetent for greater than .5 flow and spectral Doppler. seconds. Exam performed in department. The exam was diagnostic. VL/Venous Duplex US - Melquiades Extrem Interpretation Summary Deep veins of the lower extremities are bilaterally patent and compressible seg mentally. There is no evidence of deep vein thrombosis on either side. Valvular competence appears in tact within the proximal deep venous systems bilaterally. The great saphenous veins appear bila terally patent and compressible segmentally. Sapheno-femoral junctions are bilaterally competent . The right great saphenous vein appears competent above the knee. The right great saphenous vein appears incompetent below the knee. The left great saphenous vein appears competent above the knee. The left great saphenous vein appears incompetent below the knee. Small saphenous veins are pa tent and competent bilaterally. An incompetent case aide vein is noted in the left calf, located 10 centimeters proximal to the left medial malleolus. Ordering Physician: Lior Salcido Performed By: Guzman Walker RVT
--- NOTE | 2021-03-13 09:04 | ART_ITS ---
Reason For Study: PAD, ulcer, edema Procedure A bilateral lower extremity continuous wave Doppler with analog waveform analysis,segmental pressures,and ankle brachial indexes without exercise. Left Segmental Pressures Left brachial= 131mmHg. Left posterior tibial artery = 148mmHg. Left dorsalis pedis artery = 149mmHg. Left digit = 155 mmHg. The left dorsalis pedis waveforms are triphasic. The left posterior tibial artery waveforms are triphasic. Right Segmental Pressures Right brachial= 131mmHg. Right posterior tibial artery = 166mmHg. Right dorsalis pedis artery = 158mmHg. Right digit = 191 mmHg. The right dorsalis pedis waveforms are triphasic. The right posterior tibial artery waveforms are triphasic. Indices The right ankle brachial index by the dorsalis pedis is 1.21. The right ankle brachial index by the posterior tibial artery is 1.27. The right digital-brachial index is 1.46. The left ankle brachial index by the dorsalis pedis is 1.14. The left ankle brachial index by the posterior tibial artery is 1.13. The left digital-brachial index is 1.18. VL/Lower Ext Art Exam w/o Exercis Interpretation Summary Triphasic Doppler waveforms are noted at ankle level bilaterally. Pulse-volume recordings appear satisfactory at all levels bilaterally. Resting ankle-brachial indices are norm al bilaterally. Digital-brachial indices are supra-normal on the right, and normal on the left. There is no evidence of significant arterial occlusive disease in the lower ext remities bilaterally. Ordering Physician: Lior Salcido Performed By: Guzman Walker RVT
== END 2021-03-16 23:59 ==
LOC: CVS 09:00
PROVIDERS: PCP Nurse Practitioner Adult Health; Referring Provider Internal Medicine; Visit Provider Internal Medicine
DX: E11.621 Type 2 diabetes mellitus with foot ulcer (principal); L97.422 Non-pressure chronic ulcer of left heel and midfoot with fat layer exposed; L89.323 Pressure ulcer of left buttock, stage 3; Z72.0 Tobacco use; E11.51 Type 2 diabetes mellitus with diabetic peripheral angiopathy without gangrene; R60.0 Localized edema
CPT/HCPCS: 11042; 93923; 93970

== ENCOUNTER 2021-04-03 09:00 | Outpatient (RCR) | payer MEDICARE, SELFPAY ==
[2021-03-17 00:32] VITALS: BP 112/68; PULSE 81; TEMP 35.6
[2021-03-20 09:27] VITALS: BP 103/59; PULSE 84; TEMP 35.9
--- NOTE | 2021-03-20 10:46 | PCM.WC.PN ---
History of Present Illness Date of Service: 03/20/21 Chief Complaint: Left Heel and Buttock Ulcer History of Wound: Mr. Ordoñez is a 55 yo who presents to the wound center due to nonhealing left heel and buttock ulcers. He states that he only noted it 2 weeks ago after he was discharged from the hospital. Currently resides at [facility] where dressings have been done however no significant improvement. Patient states that there has been a foul smell. Not sure how much drainage he has had. History of diabetes mellitus type 2 which is not well controlled. He states that his insulin dose was recently adjusted and since then, his readings have been in the 300s. He denies chills, fever or otherwise feeling of unwell. Progress of Wound: Has been applying Santyl to left heel and Aquasol rope to left buttock. Status post recent arterial and venous studies. Subjective Subjective No new concerns at this time. Objective Data Objective Data Vital Signs: Vital Signs Temp Pulse BP 96.7 F L 84 103/59 L 03/20/21 09:27 03/20/21 09:27 03/20/21 09:27 Charges/Coding Procedures Integumentary [id number]: [id number] Ana María subq tissue 20 sq cm/< Physical Exam Const alert, oriented x3 and no apparent distress General Appearance: cooperative and comfortable Orientation / Consciousness: awake HEENT normocephalic and head/scalp atraumatic Eyes EOMs intact bilaterally General Eye: normal appearance of both eyes Neck full ROM General: normal visual inspection Resp normal respiratory effort Effort and Inspection: able to speak in complete sentences Skin Wounds: wounds noted Neuro oriented x3, CN's II-XII intact bilaterally and moves all extremities Psych mental status grossly normal Appearance: grossly normal Debridement Note Debridement Note Wound debrided: Left heel Type of Debridement: Excisional debridement Anesthesia Used: 4% Lidocaine Solution Depth: Down to and including healthy tissue and in the subcutaneous layer Percentage of wound debrided: 100 Instrument Used: 5mm curette Tissue Removed: Slough and devitalized tissue Severity: Fat Layer Exposed Amount of bleeding with debridement: Mild Bleeding Controlled with: Pressure Patient tolerated procedure: Patient tolerated procedure well Post-Debridement Measurements and Additional Note: Post-Debridement Measurements/Treatment YAHAIRA - Nurse 1 - General Ulcer Assessment Start: 03/20/21 09:27 Freq: Status: Active Protocol: SANDRA Activity Type Activity Date Activity User E-Sign Co-Sign Detail Recorded Client Recorded Date Recorded By Document 03/20/21 09:27 SHAE [id number] 03/20/21 09:35 SHAE 03/20/21 09:27 YAHAIRA - Today's Visit Information Type of service Follow-up Visit (Physician/TONGUE CARRIER ) Arrival Mode Wheelchair Patient Identification Verified (Name & Yes ) Vital Signs Temperature (97.8 F-99.1 F) 96.7 F L Temperature Source Temporal Pulse Rate (60-100) 84 Pulse Location Monitor Blood Pressure (90/60-120/80) 103/59 L Blood Pressure Mean (mm Hg) 73 Source Monitor Position Sitting Blood Pressure Location Right Arm History Since Last Visit- (Skip if this is Patient's initial visit) Have you changed medications since your No last visit? Any new allergies or adverse reactions No Had a fall/change in ADL's that may No increase risk of falls Signs or symptoms of abuse and/or No neglect since last visit Have you been in the hospital since your No last visit? Has dressing in place as prescribed Yes Has compression in place as prescribed N/A Has offloadiing in place as prescribed N/A Experienced any changes in pain level or No management Pain Scale: 0-10 Numeric Is Patient Pain Free? Yes YAHAIRA - Nurse 1 - General Ulcer Measurement Start: 03/20/21 09:27 Freq: Status: Active Protocol: Activity Type Activity Date Activity User E-Sign Co-Sign Detail Recorded Client Recorded Date Recorded By Document 03/20/21 09:27 KR [id number] 03/20/21 09:35 KR 03/20/21 09:27 Wound Center Nurse 1 #4 Left Buttock cluster -Current Size (cm) - Length 0.1 -Current Size (cm) - Width 0.1 -Current Size (cm) - Depth 0.1 -Total Square Cm 0.01 -Exudate Amt None Present -Wound Margin Distinct, Outline Attached -Granulation Amt None Present (0 %) -Necrosis Amt None Present (0 %) -Texture (Camila-wound Skin Appearance) Assessed, Scarring -Moisture (Camila-wound Skin Appearance) No Abnormality, Assessed -Color (Camila-wound Skin Appearance) No Abnormality, Assessed -Temperature (Camila-wound Skin No Abnormality Appearance) (Pt Warm) -Tenderness on Palpation (Camila-wound No Skin Appearance) -Ulcer Cleansing Rinsed/ Irrigated with Saline -Foul Odor after Cleansing No -Anesthetic Used 4% Lidocaine Solution #3 Left Heel -Current Size (cm) - Length 3.1 -Current Size (cm) - Width 3.3 -Current Size (cm) - Depth 0.1 -Total Square Cm 10.23 -Exudate Amt Medium -Exudate Type Serosanguineous -Wound Margin Distinct, Outline Attached -Granulation Amt Medium (34-66%) -Granulation Quality Red -Necrosis Amt Medium (34-66%) -Necrotic Tissue Type Adherent Slough -Texture (Camila-wound Skin Appearance) Assessed, Scarring -Moisture (Camila-wound Skin Appearance) No Abnormality, Assessed -Color (Camila-wound Skin Appearance) No Abnormality, Assessed -Temperature (Camila-wound Skin No Abnormality Appearance) (Pt Warm) -Tenderness on Palpation (Camila-wound No Skin Appearance) -Ulcer Cleansing Rinsed/ Irrigated with Saline -Foul Odor after Cleansing No -Anesthetic Used 4% Lidocaine Solution - Nurse 3 - General Ulcer D/C NN Start: 03/20/21 09:27 Freq: Status: Active Protocol: Activity Type Activity Date Activity User E-Sign Co-Sign Detail Recorded Client Recorded Date Recorded By Document 03/20/21 10:38 SHAE [id number] 03/20/21 10:40 SHAE 03/20/21 10:38 Wound Care Nurse 3 #4 Left Buttock cluster -Ulcer Cleansing Rinsed/ Irrigated with Saline -Primary Dressing Applied Aquacel Rope -Primary Dressing Covered/Secured with Dry Gauze, Secured with Tape -Aquacel Rope 1 #3 Left Heel -Ulcer Cleansing Rinsed/ Irrigated with Saline -Primary Dressing Applied Fibracol Plus 4x4 -Primary Dressing Covered/Secured with Dry Gauze,Dry Gauze & Roll Gauze,Secured with Tape -Fibracol Plus 4x4 1 Pain Scale: 0-10 Numeric Is Patient Pain Free? Yes - Visit Discharge Discharge Condition Stable Ambulatory Status Wheelchair Transportation Private Auto Additional Wound Wound debrided: Left buttock Type of Debridement: Excisional debridement Anesthesia Used: 4% Lidocaine Solution Depth: Down to and including healthy tissue and in the subcutaneous layer Percentage of wound debrided: 100 Instrument Used: - (1mm) Tissue Removed: Slough and devitalized tissue Severity: Fat Layer Exposed Amount of bleeding with debridement: Mild Bleeding Controlled with: Pressure Patient tolerated procedure: Patient tolerated procedure well Assessment/Plan Assessment/Plan (1) Diabetic ulcer of left heel: CODE(S): E11.621 - Type 2 diabetes mellitus with foot ulcer; L97.429 - Non-pressure chronic ulcer of left heel and midfoot with unspecified severity QUALIFIERS: Diabetes mellitus type: type 2 Non-pressure ulcer stage: with fat layer exposed Qualified Code(s): E11.621 - Type 2 diabetes mellitus with foot ulcer; L97.422 - Non-pressure chronic ulcer of left heel and midfoot with fat layer exposed (2) Decubitus ulcer of left buttock, stage 3: CODE(S): L89.323 - Pressure ulcer of left buttock, stage 3 (3) Type 2 diabetes mellitus: CODE(S): E11.9 - Type 2 diabetes mellitus without complications QUALIFIERS: Diabetes mellitus complication detail: with foot ulcer Diabetes mellitus complication status: with skin complications 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 Debridement done as documented above, procedure was well-tolerated. Switch to Fibracol to left heel, will apply for skin substitute. Due to chronicity of ulcer, patient will benefit from this. Continue Aquacel rope to left buttock, change daily to twice daily depending on drainage. Cover both with Adaptic and foam dressing. Offloading very strongly recommended. Optimal diabetes control discussed. He has been advised to speak with his visiting physician about medication adjustment for better diabetes control. Arterial and venous studies with no significant concerns. Increase vitamin C, D and zinc. He voiced understanding. Increased protein intake also discussed. He was advised to call with any questions or concerns. This note was generated with [employer] software. It may contain incorrect words, spelling, and punctuation that were not noted in checking the note before signing.
[2021-03-27 08:49] VITALS: BP 110/64; PULSE 84; TEMP 36.1
--- NOTE | 2021-03-27 10:48 | PN.PCM_ITS ---
History of Present Illness Date of Service: 03/27/21 Chief Complaint: Left Heel and Buttock Ulcer History of Wound: Mr. Ordoñez is a 55 yo who presents to the wound center due to nonhealing left heel and buttock ulcers. He states that he only noted it 2 weeks ago after he was discharged from the hospital. Currently resides at [facility] where dressings have been done however no significant improvement. Patient states that there has been a foul smell. Not sure how much drainage he has had. History of diabetes mellitus type 2 which is not well controlled. He states that his insulin dose was recently adjusted and since then, his readings have been in the 300s. He denies chills, fever or otherwise feeling of unwell. Progress of Wound: Switched to Fibracol to left heel last week. He however states that he has not had this applied to short staff at his facility. He states that he has been trying to take care of the ulcer himself. Subjective Subjective He feels well. Denies, chills, fever or any new concerns. Objective Data Objective Data Vital Signs: Vital Signs Temp Pulse BP 96.9 F L 84 110/64 03/27/21 08:49 03/27/21 08:49 03/27/21 08:49 Charges/Coding Procedures Integumentary 111xxx-113xx: [id number] Ana María subq tissue 20 sq cm/< Physical Exam Const alert, oriented x3 and no apparent distress General Appearance: cooperative and comfortable Orientation / Consciousness: awake HEENT normocephalic and head/scalp atraumatic Eyes EOMs intact bilaterally General Eye: normal appearance of both eyes Neck full ROM General: normal visual inspection Resp normal respiratory effort Effort and Inspection: able to speak in complete sentences Skin Wounds: wounds noted Neuro oriented x3, CN's II-XII intact bilaterally and moves all extremities Psych mental status grossly normal Appearance: grossly normal Debridement Note Debridement Note Wound debrided: Left Heel Type of Debridement: Excisional debridement Anesthesia Used: 4% Lidocaine Solution Depth: Down to and including healthy tissue and in the subcutaneous layer Percentage of wound debrided: 100 Instrument Used: 5mm curette and Forceps Tissue Removed: Slough and devitalized tissue Severity: Fat Layer Exposed Amount of bleeding with debridement: Mild Bleeding Controlled with: Pressure Patient tolerated procedure: Patient tolerated procedure well Post-Debridement Measurements and Additional Note: Post-Debridement Measurements/Treatment WC - Nurse 1 - General Ulcer Assessment Start: 03/20/21 09:27 Freq: Status: Active Protocol: SANDRA Activity Type Activity Date Activity User E-Sign Co-Sign Detail Recorded Client Recorded Date Recorded By Document 03/20/21 09:27 SHAE [id number] 03/20/21 09:35 KR Document 03/27/21 08:49 AK [id number] 03/27/21 08:59 AK 03/20/21 03/27/21 09:27 08:49 WC - Today's Visit Information Type of service Follow-up Visit Follow-up Visit (Physician/AVIATION MAINTENANCE INSTRUCTOR (Physician/AVIATION MAINTENANCE INSTRUCTOR ) ) Arrival Mode Wheelchair Wheelchair Patient Identification Verified (Name & Yes Yes ) Patient Requires Transmission-Based No Precautions Safety Precautions NA Finger Stick Blood Sugar(mg/dl) (if 97 indicated): Blood Sugar Stated by Patient Vital Signs Temperature (97.8 F-99.1 F) 96.7 F L 96.9 F L Temperature Source Temporal Temporal Pulse Rate (60-100) 84 84 Pulse Location Monitor Monitor Blood Pressure (90/60-120/80) 103/59 L 110/64 Blood Pressure Mean (mm Hg) 73 79 Source Monitor Monitor Position Sitting Blood Pressure Location Right Arm History Since Last Visit- (Skip if this is Patient's initial visit) Have you changed medications since your No No last visit? Any new allergies or adverse reactions No No Had a fall/change in ADL's that may No No increase risk of falls Signs or symptoms of abuse and/or No No neglect since last visit Have you been in the hospital since your No No last visit? Has dressing in place as prescribed Yes Yes Has compression in place as prescribed N/A N/A Has offloadiing in place as prescribed N/A N/A Experienced any changes in pain level or No No management Pain Scale: 0-10 Numeric Is Patient Pain Free? Yes - Nurse 1 - General Ulcer Measurement Start: 03/20/21 09:27 Freq: Status: Active Protocol: Activity Type Activity Date Activity User E-Sign Co-Sign Detail Recorded Client Recorded Date Recorded By Document 03/20/21 09:27 SHAE [id number] 03/20/21 09:35 KR Document 03/27/21 08:49 MAURA [id number] 03/27/21 08:59 AK 03/20/21 03/27/21 09:27 08:49 Wound Center Nurse 1 #4 Left Buttock cluster -Combined with other wound No -Current Size (cm) - Length 0.1 0.1 -Current Size (cm) - Width 0.1 0.1 -Current Size (cm) - Depth 0.1 0.1 -Total Square Cm 0.01 0.01 -Exudate Amt None Present None Present -Wound Margin Distinct, Distinct, Outline Outline Attached Attached -Granulation Amt None Present (0 None Present (0 %) %) -Necrosis Amt None Present (0 None Present (0 %) %) -Texture (Camila-wound Skin Appearance) Assessed, Assessed, Scarring Scarring -Moisture (Camila-wound Skin Appearance) No Abnormality, Assessed,Dry/ Assessed Scaly -Color (Camila-wound Skin Appearance) No Abnormality, No Abnormality, Assessed Assessed -Temperature (Camila-wound Skin No Abnormality No Abnormality Appearance) (Pt Warm) (Pt Warm) -Tenderness on Palpation (Camila-wound No No Skin Appearance) -Ulcer Cleansing Rinsed/ Soap and Water Irrigated with Saline -Foul Odor after Cleansing No No -Anesthetic Used 4% Lidocaine 4% Lidocaine Solution Solution #3 Left Heel -Combined with other wound No -Current Size (cm) - Length 3.1 2.1 -Current Size (cm) - Width 3.3 3.4 -Current Size (cm) - Depth 0.1 0.2 -Total Square Cm 10.23 7.14 -Photo Taken No -Epithelialization Small 1-33% -Tunneling No -Undermining/Tunneling No -Circular Undermining No -Classification - Thickness Partial Thickness -Exudate Amt Medium Medium -Exudate Type Serosanguineous Serosanguineous -Wound Margin Distinct, Distinct, Outline Outline Attached Attached -Granulation Amt Medium (34-66%) Medium (34-66%) -Granulation Quality Red [place],Red -Slough/Fibrin Yes -Necrosis Amt Medium (34-66%) Medium (34-66%) -Necrotic Tissue Type Adherent Slough Adherent Slough -Structure Exposed N/A -Texture (Camila-wound Skin Appearance) Assessed, No Abnormality, Scarring Assessed -Moisture (Camila-wound Skin Appearance) No Abnormality, No Abnormality, Assessed Assessed -Color (Camila-wound Skin Appearance) No Abnormality, No Abnormality, Assessed Assessed -Temperature (Camila-wound Skin No Abnormality No Abnormality Appearance) (Pt Warm) (Pt Warm) -Tenderness on Palpation (Camila-wound No No Skin Appearance) -Ulcer Cleansing Rinsed/ Soap and Water Irrigated with Saline -Foul Odor after Cleansing No No -Anesthetic Used 4% Lidocaine 4% Lidocaine Solution Solution WC - Nurse 2 - General Ulcer CM Notes Start: 03/20/21 09:27 Freq: Status: Active Protocol: Activity Type Activity Date Activity User E-Sign Co-Sign Detail Recorded Client Recorded Date Recorded By Document 03/20/21 12:00 PL [id number] 03/20/21 12:02 PL Document 03/27/21 09:16 AK [id number] 03/27/21 09:21 AK 03/20/21 03/27/21 12:00 09:16 Wound Center Nurse 2 #4 Left Buttock cluster -Time 09:17 -Correct Patient Yes Yes -Correct Side, Site, Position Yes Yes -Correct Procedure Yes Yes -Procedure Performed Yes No -Type of Procedure Debridement -Clinical Debridement Subcutaneous -Tissue Removed Subcutaneous -Post Debridement (cm) - Length 0.2 0.1 -Post Debridement (cm) - Width 0.3 0.1 -Post Debridement (cm) - Depth 0.7 0.1 -Total Square (Post) (cm) 0.06 0.01 -Area of Debridement (cm) - Length 0.2 -Area of Debridement (cm) - Width 0.3 -Total Square (Area) (cm) 0.06 -Tunneling No No -Undermining/Tunneling No No -Circular Undermining No No -Wound/Ulcer Outcome Not Healed Not Healed -Ulcer Cleansing Rinsed/ Rinsed/ Irrigated with Irrigated with Saline Saline -Foul Odor after Cleansing No No -Bioengineered Tissue No No -Bleeding Controlled with Pressure Pressure -Type of Offloading Total Contact Cast (TCC) - Left ($) -Treatment Response Procedure Procedure Tolerated Well Tolerated Well -Debridement - Subq, 1st 20sq cm Yes No #3 Left Heel -Time 09:17 -Correct Patient Yes Yes -Correct Side, Site, Position Yes Yes -Correct Procedure Yes Yes -Procedure Performed Yes Yes -Type of Procedure Debridement Debridement -Clinical Debridement Subcutaneous Subcutaneous -Tissue Removed Subcutaneous Subcutaneous -Post Debridement (cm) - Length 3.5 3.3 -Post Debridement (cm) - Width 3.8 4.0 -Post Debridement (cm) - Depth 0.2 0.3 -Total Square (Post) (cm) 13.30 13.20 -Area of Debridement (cm) - Length 3.5 3.3 -Area of Debridement (cm) - Width 3.8 4.0 -Total Square (Area) (cm) 13.30 13.20 -Tunneling No No -Undermining/Tunneling No No -Circular Undermining No No -Wound/Ulcer Outcome Not Healed Not Healed -Ulcer Cleansing Rinsed/ Rinsed/ Irrigated with Irrigated with Saline Saline -Foul Odor after Cleansing No No -Bioengineered Tissue No No -Bleeding Controlled with Pressure -Offloading No -Treatment Response Procedure Tolerated Well -Debridement - Subq, 1st 20sq cm No Yes Pain Scale: 0-10 Numeric Is Patient Pain Free? Yes - Nurse 3 - General Ulcer D/C NN Start: 03/20/21 09:27 Freq: Status: Active Protocol: Activity Type Activity Date Activity User E-Sign Co-Sign Detail Recorded Client Recorded Date Recorded By Document 03/20/21 10:38 SHAE [id number] 03/20/21 10:40 KR Document 03/27/21 09:24 AK [id number] 03/27/21 09:25 AK 03/20/21 03/27/21 10:38 09:24 Wound Care Nurse 3 #4 Left Buttock cluster -Ulcer Cleansing Rinsed/ Rinsed/ Irrigated with Irrigated with Saline Saline -Primary Dressing Applied Aquacel Rope NonAdherent Contact Layer -Primary Dressing Covered/Secured with Dry Gauze, Dry Gauze, Secured with Secured with Tape Tape -Aquacel Rope 1 #3 Left Heel -Ulcer Cleansing Rinsed/ Irrigated with Saline -Primary Dressing Applied Fibracol Plus Fibracol Plus 4x4 4x4 -Primary Dressing Covered/Secured with Dry Gauze,Dry Dry Gauze, Gauze & Roll Secured with Gauze,Secured Tape with Tape -Fibracol Plus 4x4 1 1 Pain Scale: 0-10 Numeric Is Patient Pain Free? Yes Yes - Visit Discharge Discharge Condition Stable Stable Ambulatory Status Wheelchair Wheelchair Transportation Private Auto Accompanied by [facility] Assessment/Plan Assessment/Plan (1) Diabetic ulcer of left heel: CODE(S): E11.621 - Type 2 diabetes mellitus with foot ulcer; L97.429 - Non-pressure chronic ulcer of left heel and midfoot with unspecified severity QUALIFIERS: Diabetes mellitus type: type 2 Non-pressure ulcer stage: with fat layer exposed Qualified Code(s): E11.621 - Type 2 diabetes mellitus with foot ulcer; L97.422 - Non-pressure chronic ulcer of left heel and midfoot with fat layer exposed (2) Decubitus ulcer of left buttock, stage 3: CODE(S): L89.323 - Pressure ulcer of left buttock, stage 3 (3) Type 2 diabetes mellitus: CODE(S): E11.9 - Type 2 diabetes mellitus without complications QUALIFIERS: Diabetes mellitus complication detail: with foot ulcer Diabetes mellitus complication status: with skin complications 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 Problems with dressing changes at his facility. Debridement done as documented above, procedure was well-tolerated. Continue Fibracol to left heel. Cover with Adaptic. Adaptic and ABD to left buttock. Approval for skin substitute pending. A1c ordered per requirement. Offloading very strongly recommended. Optimal diabetes control discussed. Increase vitamin C, D and zinc. He voiced understanding. Increased protein intake also discussed. He was advised to call with any questions or concerns. This note was generated with [employer] software. It may contain incorrect words, spelling, and punctuation that were not noted in checking the note before signing.
[2021-04-03 09:04] VITALS: BP 106/61; PULSE 81; TEMP 36.1
--- NOTE | 2021-04-03 09:24 | PCM.WC.PN ---
History of Present Illness Date of Service: 04/03/21 Chief Complaint: Left Heel and Buttock Ulcer History of Wound: Mr. Ordoñez is a 55 yo who presents to the wound center due to nonhealing left heel and buttock ulcers. He states that he only noted it 2 weeks ago after he was discharged from the hospital. Currently resides at [facility] where dressings have been done however no significant improvement. Patient states that there has been a foul smell. Not sure how much drainage he has had. History of diabetes mellitus type 2 which is not well controlled. He states that his insulin dose was recently adjusted and since then, his readings have been in the 300s. He denies chills, fever or otherwise feeling of unwell. Progress of Wound: Left buttock is healed. Left heel with minimal improvement. Dressings not done consistently by his facility nurses. Subjective Subjective He feels well. Denies, chills, fever or any new concerns. Objective Data Objective Data Vital Signs: Vital Signs Temp Pulse BP 96.9 F L 81 106/61 04/03/21 09:04 04/03/21 09:04 04/03/21 09:04 Charges/Coding Procedures Integumentary 111xxx-113xx: [id number] Ana María subq tissue 20 sq cm/< Physical Exam Const alert, oriented x3 and no apparent distress General Appearance: cooperative and comfortable Orientation / Consciousness: awake HEENT normocephalic and head/scalp atraumatic Eyes EOMs intact bilaterally General Eye: normal appearance of both eyes Neck full ROM General: normal visual inspection Resp normal respiratory effort Effort and Inspection: able to speak in complete sentences Skin Wounds: wounds noted Neuro oriented x3, CN's II-XII intact bilaterally and moves all extremities Psych mental status grossly normal Appearance: grossly normal Debridement Note Debridement Note Wound debrided: Left Heel Type of Debridement: Excisional debridement Anesthesia Used: 4% Lidocaine Solution Depth: Down to and including healthy tissue and in the subcutaneous layer Percentage of wound debrided: 100 Instrument Used: 5mm curette Tissue Removed: Slough and devitalized tissue Severity: Fat Layer Exposed Amount of bleeding with debridement: Mild Bleeding Controlled with: Pressure Patient tolerated procedure: Patient tolerated procedure well Post-Debridement Measurements and Additional Note: Post-Debridement Measurements/Treatment [id number] - Nurse 1 - General Ulcer Assessment Start: 03/20/21 09:27 Freq: Status: Active Protocol: SANDRA Activity Type Activity Date Activity User E-Sign Co-Sign Detail Recorded Client Recorded Date Recorded By Document 03/20/21 09:27 KR [id number] 03/20/21 09:35 KR Document 03/27/21 08:49 AK [id number] 03/27/21 08:59 AK Document 04/03/21 09:04 AK [id number] 04/03/21 09:09 AK 03/20/21 03/27/21 04/03/21 09:27 08:49 09:04 WC - Today's Visit Information Type of service Follow-up Visit Follow-up Visit Follow-up Visit (Physician/SUPPORTIVE EMPLOYMENT CASE MANAGER (Physician/SUPPORTIVE EMPLOYMENT CASE MANAGER (Physician/SUPPORTIVE EMPLOYMENT CASE MANAGER ) ) ) Arrival Mode Wheelchair Wheelchair Wheelchair Patient Identification Verified (Name & Yes Yes Yes ) Patient Requires Transmission-Based No No Precautions Safety Precautions NA Finger Stick Blood Sugar(mg/dl) (if 97 indicated): Blood Sugar Stated by Patient Vital Signs Temperature (97.8 F-99.1 F) 96.7 F L 96.9 F L 96.9 F L Temperature Source Temporal Temporal Temporal Pulse Rate (60-100) 84 84 81 Pulse Location Monitor Monitor Monitor Blood Pressure (90/60-120/80) 103/59 L 110/64 106/61 Blood Pressure Mean (mm Hg) 73 79 76 Source Monitor Monitor Monitor Position Sitting Blood Pressure Location Right Arm Comment Patient states assisted living is no doing daily dressing changes. History Since Last Visit- (Skip if this is Patient's initial visit) Have you changed medications since your No No No last visit? Any new allergies or adverse reactions No No No Had a fall/change in ADL's that may No No No increase risk of falls Signs or symptoms of abuse and/or No No No neglect since last visit Have you been in the hospital since your No No No last visit? Has dressing in place as prescribed Yes Yes Yes Has compression in place as prescribed N/A N/A N/A Has offloadiing in place as prescribed N/A N/A N/A Experienced any changes in pain level or No No No management Pain Scale: 0-10 Numeric Is Patient Pain Free? Yes - Nurse 1 - General Ulcer Measurement Start: 03/20/21 09:27 Freq: Status: Active Protocol: Activity Type Activity Date Activity User E-Sign Co-Sign Detail Recorded Client Recorded Date Recorded By Document 03/20/21 09:27 KR [id number] 03/20/21 09:35 KR Document 03/27/21 08:49 AK [id number] 03/27/21 08:59 AK Document 04/03/21 09:04 AK [id number] 04/03/21 09:09 AK 03/20/21 03/27/21 04/03/21 09:27 08:49 09:04 Wound Center Nurse 1 #4 Left Buttock cluster -Combined with other wound No No -Current Size (cm) - Length 0.1 0.1 -Current Size (cm) - Width 0.1 0.1 -Current Size (cm) - Depth 0.1 0.1 -Total Square Cm 0.01 0.01 -Exudate Amt None Present None Present -Wound Margin Distinct, Distinct, Outline Outline Attached Attached -Granulation Amt None Present (0 None Present (0 %) %) -Necrosis Amt None Present (0 None Present (0 %) %) -Texture (Camila-wound Skin Appearance) Assessed, Assessed, Scarring Scarring -Moisture (Camila-wound Skin Appearance) No Abnormality, Assessed,Dry/ Assessed Scaly -Color (Camila-wound Skin Appearance) No Abnormality, No Abnormality, Assessed Assessed -Temperature (Camila-wound Skin No Abnormality No Abnormality Appearance) (Pt Warm) (Pt Warm) -Tenderness on Palpation (Camila-wound No No Skin Appearance) -Ulcer Cleansing Rinsed/ Soap and Water Irrigated with Saline -Foul Odor after Cleansing No No -Anesthetic Used 4% Lidocaine 4% Lidocaine Solution Solution #3 Left Heel -Combined with other wound No No -Current Size (cm) - Length 3.1 2.1 3 -Current Size (cm) - Width 3.3 3.4 3.5 -Current Size (cm) - Depth 0.1 0.2 0.1 -Total Square Cm 10.23 7.14 10.5 -Photo Taken No No -Epithelialization Small 1-33% None Present -Tunneling No No -Undermining/Tunneling No No -Circular Undermining No No -Classification - Thickness Partial Thickness -Exudate Amt Medium Medium -Exudate Type Serosanguineous Serosanguineous -Wound Margin Distinct, Distinct, Outline Outline Attached Attached -Granulation Amt Medium (34-66%) Medium (34-66%) None Present (0 %) -Granulation Quality [place],Red N/A,[place],Red -Slough/Fibrin Yes Yes -Necrosis Amt Medium (34-66%) Medium (34-66%) Medium (34-66%) -Necrotic Tissue Type Adherent Slough Adherent Slough Adherent Slough -Structure Exposed N/A N/A -Texture (Camila-wound Skin Appearance) Assessed, No Abnormality, Assessed Scarring Assessed -Moisture (Camila-wound Skin Appearance) No Abnormality, No Abnormality, Assessed Assessed Assessed -Color (Camila-wound Skin Appearance) No Abnormality, No Abnormality, Assessed Assessed Assessed -Temperature (Camila-wound Skin No Abnormality No Abnormality No Abnormality Appearance) (Pt Warm) (Pt Warm) (Pt Warm) -Tenderness on Palpation (Camila-wound No No No Skin Appearance) -Ulcer Cleansing Rinsed/ Soap and Water Soap and Water Irrigated with Saline -Foul Odor after Cleansing No No No -Anesthetic Used 4% Lidocaine 4% Lidocaine 5% Lidocaine Solution Solution Gel WC - Nurse 2 - General Ulcer CM Notes Start: 03/20/21 09:27 Freq: Status: Active Protocol: Activity Type Activity Date Activity User E-Sign Co-Sign Detail Recorded Client Recorded Date Recorded By Document 03/20/21 12:00 PL [id number] 03/20/21 12:02 PL Document 03/27/21 09:16 AK [id number] 03/27/21 09:21 AK Edit Result 03/27/21 09:16 AK (1) [id number] 03/28/21 07:02 PL (1) #4 Left Buttock cluster - Type of Offloading Total Contact Cast => (TCC) - Left ($) => 03/20/21 03/27/21 12:00 09:16 Wound Center Nurse 2 #4 Left Buttock cluster -Time 09:58 09:17 -Correct Patient Yes Yes -Correct Side, Site, Position Yes Yes -Correct Procedure Yes Yes -Procedure Performed Yes No -Type of Procedure Debridement -Clinical Debridement Subcutaneous -Tissue Removed Subcutaneous -Post Debridement (cm) - Length 0.2 0.1 -Post Debridement (cm) - Width 0.3 0.1 -Post Debridement (cm) - Depth 0.7 0.1 -Total Square (Post) (cm) 0.06 0.01 -Area of Debridement (cm) - Length 0.2 -Area of Debridement (cm) - Width 0.3 -Total Square (Area) (cm) 0.06 -Tunneling No No -Undermining/Tunneling No No -Circular Undermining No No -Wound/Ulcer Outcome Not Healed Not Healed -Ulcer Cleansing Rinsed/ Rinsed/ Irrigated with Irrigated with Saline Saline -Foul Odor after Cleansing No No -Bioengineered Tissue No No -Bleeding Controlled with Pressure Pressure -Treatment Response Procedure Procedure Tolerated Well Tolerated Well -Debridement - Subq, 1st 20sq cm Yes No #3 Left Heel -Time 09:58 09:17 -Correct Patient Yes Yes -Correct Side, Site, Position Yes Yes -Correct Procedure Yes Yes -Procedure Performed Yes Yes -Type of Procedure Debridement Debridement -Clinical Debridement Subcutaneous Subcutaneous -Tissue Removed Subcutaneous Subcutaneous -Post Debridement (cm) - Length 3.5 3.3 -Post Debridement (cm) - Width 3.8 4.0 -Post Debridement (cm) - Depth 0.2 0.3 -Total Square (Post) (cm) 13.30 13.20 -Area of Debridement (cm) - Length 3.5 3.3 -Area of Debridement (cm) - Width 3.8 4.0 -Total Square (Area) (cm) 13.30 13.20 -Tunneling No No -Undermining/Tunneling No No -Circular Undermining No No -Wound/Ulcer Outcome Not Healed Not Healed -Ulcer Cleansing Rinsed/ Rinsed/ Irrigated with Irrigated with Saline Saline -Foul Odor after Cleansing No No -Bioengineered Tissue No No -Bleeding Controlled with Pressure -Offloading No -Treatment Response Procedure Tolerated Well -Debridement - Subq, 1st 20sq cm No Yes Pain Scale: 0-10 Numeric Is Patient Pain Free? Yes WC - Nurse 3 - General Ulcer D/C NN Start: 03/20/21 09:27 Freq: Status: Active Protocol: Activity Type Activity Date Activity User E-Sign Co-Sign Detail Recorded Client Recorded Date Recorded By Document 03/20/21 10:38 KR [id number] 03/20/21 10:40 KR Document 03/27/21 09:24 AK [id number] 03/27/21 09:25 AK 03/20/21 03/27/21 10:38 09:24 Wound Care Nurse 3 #4 Left Buttock cluster -Ulcer Cleansing Rinsed/ Rinsed/ Irrigated with Irrigated with Saline Saline -Primary Dressing Applied Aquacel Rope NonAdherent Contact Layer -Primary Dressing Covered/Secured with Dry Gauze, Dry Gauze, Secured with Secured with Tape Tape -Aquacel Rope 1 #3 Left Heel -Ulcer Cleansing Rinsed/ Irrigated with Saline -Primary Dressing Applied Fibracol Plus Fibracol Plus 4x4 4x4 -Primary Dressing Covered/Secured with Dry Gauze,Dry Dry Gauze, Gauze & Roll Secured with Gauze,Secured Tape with Tape -Fibracol Plus 4x4 1 1 Pain Scale: 0-10 Numeric Is Patient Pain Free? Yes Yes WC - Visit Discharge Discharge Condition Stable Stable Ambulatory Status Wheelchair Wheelchair Transportation Private Auto Accompanied by LOU Assessment/Plan Assessment/Plan (1) Diabetic ulcer of left heel: CODE(S): E11.621 - Type 2 diabetes mellitus with foot ulcer; L97.429 - Non-pressure chronic ulcer of left heel and midfoot with unspecified severity QUALIFIERS: Diabetes mellitus type: type 2 Non-pressure ulcer stage: with fat layer exposed Qualified Code(s): E11.621 - Type 2 diabetes mellitus with foot ulcer; L97.422 - Non-pressure chronic ulcer of left heel and midfoot with fat layer exposed (2) Decubitus ulcer of left buttock, stage 3: CODE(S): L89.323 - Pressure ulcer of left buttock, stage 3 (3) Type 2 diabetes mellitus: CODE(S): E11.9 - Type 2 diabetes mellitus without complications QUALIFIERS: Diabetes mellitus fdc insulin use: with fdc use Diabetes mellitus complication status: with skin complications Diabetes mellitus complication detail: with foot ulcer Qualified Code(s): E11.621 - Type 2 diabetes mellitus with foot ulcer; L97.509 - Non-pressure chronic ulcer of other part of unspecified foot with unspecified severity; 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 Left heel with minimal improvement. Debridement done as documented above, procedure was well-tolerated. Continue Fibracol to left heel. Cover with Adaptic. Approval for skin substitute pending. A1c ordered per requirement. Offloading very strongly recommended. Optimal diabetes control discussed. Increase vitamin C, D and zinc. He voiced understanding. Increased protein intake also discussed. He was advised to call with any questions or concerns. This note was generated with [employer] software. It may contain incorrect words, spelling, and punctuation that were not noted in checking the note before signing.
== END 2021-04-15 23:59 ==
LOC: WC 09:00
PROVIDERS: PCP Nurse Practitioner Adult Health; Referring Provider Internal Medicine; Visit Provider Internal Medicine
DX: E11.621 Type 2 diabetes mellitus with foot ulcer (principal); L97.422 Non-pressure chronic ulcer of left heel and midfoot with fat layer exposed; L89.323 Pressure ulcer of left buttock, stage 3; Z79.4 Long term (current) use of insulin; Z72.0 Tobacco use
CPT/HCPCS: 11042; 29445

== ENCOUNTER 2021-05-15 09:15 | Outpatient (RCR) | payer MEDICARE, MEDICAID, SELFPAY ==
[2021-04-16 00:34] VITALS: BP 106/61; PULSE 81; TEMP 36.1
[2021-04-17 09:45] VITALS: BP 92/49; PULSE 79; RESP 16; TEMP 36
--- NOTE | 2021-04-17 13:01 | PN.PCM_ITS ---
History of Present Illness Date of Service: 04/17/21 Chief Complaint: Left Heel and Buttock Ulcer History of Wound: Mr. Ordoñez is a 55 yo who presents to the wound center due to nonhealing left heel and buttock ulcers. He states that he only noted it 2 weeks ago after he was discharged from the hospital. Currently resides at [facility] where dressings have been done however no significant improvement. Patient states that there has been a foul smell. Not sure how much drainage he has had. History of diabetes mellitus type 2 which is not well controlled. He states that his insulin dose was recently adjusted and since then, his readings have been in the 300s. He denies chills, fever or otherwise feeling of unwell. Progress of Wound: Modest improvement noted since his last visit. Now approved for epi fix. Still having issues with dressing changes at his facility. Subjective Subjective He feels well. Denies, chills, fever or any new concerns. Objective Data Objective Data Vital Signs: Vital Signs Temp Pulse Resp BP 96.8 F L 79 16 92/49 L 04/17/21 09:45 04/17/21 09:45 04/17/21 09:45 04/17/21 09:45 Charges/Coding Procedures Integumentary 150xxx-152xx: [id number] Skin sub graft trnk/arm/leg Physical Exam Const alert, oriented x3 and no apparent distress General Appearance: cooperative and comfortable Orientation / Consciousness: awake HEENT normocephalic and head/scalp atraumatic Eyes EOMs intact bilaterally General Eye: normal appearance of both eyes Neck full ROM General: normal visual inspection Resp normal respiratory effort Effort and Inspection: able to speak in complete sentences Skin Wounds: wounds noted Neuro oriented x3, CN's II-XII intact bilaterally and moves all extremities Psych mental status grossly normal Appearance: grossly normal Debridement Note Debridement Note Wound debrided: Left heel Type of Debridement: Excisional debridement Anesthesia Used: 4% Lidocaine Solution Depth: Down to and including healthy tissue and in the subcutaneous layer Percentage of wound debrided: 100 Instrument Used: 5mm curette Tissue Removed: Slough and devitalized tissue Severity: Fat Layer Exposed Amount of bleeding with debridement: Mild Bleeding Controlled with: Pressure Patient tolerated procedure: Patient tolerated procedure well Post-Debridement Measurements and Additional Note: Post-Debridement Measurements/Treatment WC - Nurse 1 - General Ulcer Assessment Start: 04/17/21 09:42 Freq: Status: Active Protocol: SANDRA Activity Type Activity Date Activity User E-Sign Co-Sign Detail Recorded Client Recorded Date Recorded By Document 04/17/21 09:45 ZURI [id number] 04/17/21 09:50 ZURI 04/17/21 09:45 - Today's Visit Information Type of service Follow-up Visit (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/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 ) Arrival Mode Wheelchair Transfer Assistance Manual Patient Identification Verified (Name & Yes ) Patient Requires Transmission-Based No Precautions Finger Stick Blood Sugar(mg/dl) (if 138 indicated): Blood Sugar Stated by Patient Vital Signs Temperature (97.8 F-99.1 F) 96.8 F L Temperature Source Temporal Pulse Rate (60-100) 79 Pulse Location Monitor Respiratory Rate (12-18) 16 Respiratory rate source Observation Blood Pressure (90/60-120/80) 92/49 L Blood Pressure Mean (mm Hg) 63 Source Monitor Position Sitting Blood Pressure Location Left Arm History Since Last Visit- (Skip if this is Patient's initial visit) Have you changed medications since your No last visit? Any new allergies or adverse reactions No Had a fall/change in ADL's that may No increase risk of falls Signs or symptoms of abuse and/or No neglect since last visit Has dressing in place as prescribed Yes Has compression in place as prescribed N/A Has offloadiing in place as prescribed Yes Experienced any changes in pain level or No management Left Footwear No Footwear Right Footwear No Footwear Pain Scale: 0-10 Numeric Is Patient Pain Free? Yes - Nurse 1 - General Ulcer Measurement Start: 04/17/21 09:42 Freq: Status: Active Protocol: Activity Type Activity Date Activity User E-Sign Co-Sign Detail Recorded Client Recorded Date Recorded By Document 04/17/21 09:45 ZURI [id number] 04/17/21 09:50 ZURI 04/17/21 09:45 Wound Center Nurse 1 #3 Left Heel -Combined with other wound No -Current Size (cm) - Length 2.8 -Current Size (cm) - Width 3.3 -Current Size (cm) - Depth 0.1 -Total Square Cm 9.24 -Photo Taken No -Epithelialization Small 1-33% -Tunneling No -Undermining/Tunneling No -Circular Undermining No -Exudate Amt Medium -Exudate Type Serosanguineous -Wound Margin Flat & Intact -Granulation Amt Large (67-100%) -Granulation Quality Red -Slough/Fibrin Yes -Necrosis Amt Small (1-33%) -Necrotic Tissue Type Adherent Slough -Structure Exposed N/A -Texture (Camila-wound Skin Appearance) Assessed -Moisture (Camila-wound Skin Appearance) Assessed,Dry/ Scaly -Color (Camila-wound Skin Appearance) Assessed -Temperature (Camila-wound Skin No Abnormality Appearance) (Pt Warm) -Tenderness on Palpation (Camila-wound No Skin Appearance) -Ulcer Cleansing Rinsed/ Irrigated with Saline -Foul Odor after Cleansing No -Anesthetic Used 4% Lidocaine Solution Lower Limb Edema Present Yes Left Calf (cm) 51.2 Left Ankle (cm) 31.2 WC - Nurse 2 - General Ulcer CM Notes Start: 04/17/21 09:42 Freq: Status: Active Protocol: Activity Type Activity Date Activity User E-Sign Co-Sign Detail Recorded Client Recorded Date Recorded By Document 04/17/21 10:19 MW [id number] 04/17/21 10:32 MW 04/17/21 10:19 Wound Center Nurse 2 #3 Left Heel -Time 10:21 -Correct Patient Yes -Correct Side, Site, Position Yes -Correct Procedure Yes -Procedure Performed Yes -Type of Procedure Debridement -Clinical Debridement Subcutaneous -Tissue Removed Subcutaneous -Post Debridement (cm) - Length 2.8 -Post Debridement (cm) - Width 3.0 -Post Debridement (cm) - Depth 0.1 -Total Square (Post) (cm) 8.40 -Area of Debridement (cm) - Length 2.8 -Area of Debridement (cm) - Width 3.0 -Total Square (Area) (cm) 8.40 -Tunneling No -Undermining/Tunneling No -Circular Undermining No -Wound/Ulcer Outcome Not Healed -Ulcer Cleansing Rinsed/ Irrigated with Saline -Foul Odor after Cleansing No -Bioengineered Tissue Yes -Type of Bioengineered Tissue Epifix Mesh -Expiration Date 12/15/25 -Product Lot Number [id number] -Percent Used 100 -Lot number of Saline Used [id number] -Bleeding Controlled with Pressure -Offloading No -Treatment Response Procedure Tolerated Well -Debridement - Subq, 1st 20sq cm No -Apply Skin Sub - 1st 25 sq cm - Legs 1 -Epifix Mesh (per sq cm) 11 Pain Scale: 0-10 Numeric Is Patient Pain Free? Yes WC - Nurse 3 - General Ulcer D/C NN Start: 04/17/21 09:42 Freq: Status: Active Protocol: Activity Type Activity Date Activity User E-Sign Co-Sign Detail Recorded Client Recorded Date Recorded By Document 04/17/21 10:48 MAURA [id number] 04/17/21 10:49 MAURA 04/17/21 10:48 Wound Care Nurse 3 #3 Left Heel -Other Dressing ABD Heel cap -Primary Dressing Covered/Secured with Dry Gauze & Roll Gauze, Secured with Tape Left -Compression Wrap Frank Wrap Assessment/Plan Assessment/Plan (1) Diabetic ulcer of left heel: CODE(S): E11.621 - Type 2 diabetes mellitus with foot ulcer; L97.429 - Non-pressure chronic ulcer of left heel and midfoot with unspecified severity QUALIFIERS: Diabetes mellitus type: type 2 Non-pressure ulcer stage: with fat layer exposed Qualified Code(s): E11.621 - Type 2 diabetes mellitus with foot ulcer; L97.422 - Non-pressure chronic ulcer of left heel and midfoot with fat layer exposed (2) Decubitus ulcer of left buttock, stage 3: CODE(S): L89.323 - Pressure ulcer of left buttock, stage 3 (3) Type 2 diabetes mellitus: CODE(S): E11.9 - Type 2 diabetes mellitus without complications QUALIFIERS: Diabetes mellitus complication detail: with foot ulcer Diabetes mellitus complication status: with skin complications Diabetes mellitus long-term insulin use: with long-term use Qualified Code(s): E11.621 - Type 2 diabetes mellitus with foot ulcer; L97.509 - Non-pressure chronic ulcer of other part of unspecified foot with unspecified severity; Z79.4 - residential (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 Only minimal/modest improvement since his last visit here. Now approved for epi fix. Initial application done using 100% of product. Moistened with hydrogel with Adaptic over top. Secured with Steri-Strips. Leave in place for a week. Follow-up for Courtesy visit in 1 week with Jass Armando DNP. Offloading very strongly recommended. Optimal diabetes control discussed. Increase vitamin C, D and zinc. He voiced understanding. Increased protein intake also discussed. He was advised to call with any questions or concerns. Follow up with me in 2 weeks. This note was generated with [employer] dictation software. It may contain incorrect words, spelling, and punctuation that were not noted in checking the note before signing.
[2021-05-01 09:30] VITALS: BP 84/53; PULSE 78; RESP 16; TEMP 36.4
--- NOTE | 2021-05-01 12:34 | PCM.WC.PN ---
History of Present Illness Date of Service: 05/01/21 Chief Complaint: Left Heel and Buttock Ulcer History of Wound: Mr. Ordoñez is a 55 yo who presents to the wound center due to nonhealing left heel and buttock ulcers. He states that he only noted it 2 weeks ago after he was discharged from the hospital. Currently resides at [facility] where dressings have been done however no significant improvement. Patient states that there has been a foul smell. Not sure how much drainage he has had. History of diabetes mellitus type 2 which is not well controlled. He states that his insulin dose was recently adjusted and since then, his readings have been in the 300s. He denies chills, fever or otherwise feeling of unwell. Progress of Wound: New area of opening just over ulceration, clustered. No dressing in about a week. Missed his last appointment due to transportation issues. Had had 1 application of Epifix Subjective Subjective No new concerns at this time. Objective Data Objective Data Vital Signs: Vital Signs Temp Pulse Resp BP 97.6 F L 78 16 84/53 L 05/01/21 09:30 05/01/21 09:30 05/01/21 09:30 05/01/21 09:30 Charges/Coding Procedures Integumentary 150xxx-152xx: 74474 Skin sub graft trnk/arm/leg Physical Exam Const alert, oriented x3 and no apparent distress General Appearance: cooperative and comfortable Orientation / Consciousness: awake HEENT normocephalic and head/scalp atraumatic Eyes EOMs intact bilaterally General Eye: normal appearance of both eyes Neck full ROM General: normal visual inspection Resp normal respiratory effort Effort and Inspection: able to speak in complete sentences Skin Wounds: wounds noted Neuro oriented x3, CN's II-XII intact bilaterally and moves all extremities Psych mental status grossly normal Appearance: grossly normal Debridement Note Debridement Note Wound debrided: Left Heel Type of Debridement: Excisional debridement Anesthesia Used: 4% Lidocaine Solution Depth: Down to and including healthy tissue and in the subcutaneous layer Percentage of wound debrided: 100 Instrument Used: 5mm curette Tissue Removed: Slough and devitalized tissue Severity: Fat Layer Exposed Amount of bleeding with debridement: Mild Bleeding Controlled with: Pressure Patient tolerated procedure: Patient tolerated procedure well Post-Debridement Measurements and Additional Note: Post-Debridement Measurements/Treatment WC - Nurse 1 - General Ulcer Assessment Start: 04/17/21 09:42 Freq: Status: Active Protocol: SANDRA Activity Type Activity Date Activity User E-Sign Co-Sign Detail Recorded Client Recorded Date Recorded By Document 04/17/21 09:45 [id number] 04/17/21 09:50 Document 05/01/21 09:30 ZURI [id number] 05/01/21 09:36 ZURI 04/17/21 05/01/21 09:45 09:30 - Today's Visit Information Type of service Follow-up Visit Follow-up Visit (Physician/THRESHING MACHINE OPERATOR (Physician/THRESHING MACHINE OPERATOR ) ) Arrival Mode Wheelchair Wheelchair Transfer Assistance Manual Manual Patient Identification Verified (Name & Yes Yes ) Patient Requires Transmission-Based No No Precautions Finger Stick Blood Sugar(mg/dl) (if 138 56 indicated): Blood Sugar Stated by Stated by Patient Patient Vital Signs Temperature (97.8 F-99.1 F) 96.8 F L 97.6 F L Temperature Source Temporal Temporal Pulse Rate (60-100) 79 78 Pulse Location Monitor Monitor Respiratory Rate (12-18) 16 16 Respiratory rate source Observation Observation Blood Pressure (90/60-120/80) 92/49 L 84/53 L Blood Pressure Mean (mm Hg) 63 63 Source Monitor Monitor Position Sitting Sitting Blood Pressure Location Left Arm Left Arm History Since Last Visit- (Skip if this is Patient's initial visit) Have you changed medications since your No No last visit? Any new allergies or adverse reactions No No Had a fall/change in ADL's that may No No increase risk of falls Signs or symptoms of abuse and/or No No neglect since last visit Have you been in the hospital since your No last visit? Has dressing in place as prescribed Yes Yes Has compression in place as prescribed N/A N/A Has offloadiing in place as prescribed Yes N/A Experienced any changes in pain level or No No management Left Footwear No Footwear No Footwear Right Footwear No Footwear No Footwear Pain Scale: 0-10 Numeric Is Patient Pain Free? Yes Yes - Nurse 1 - General Ulcer Measurement Start: 04/17/21 09:42 Freq: Status: Active Protocol: Activity Type Activity Date Activity User E-Sign Co-Sign Detail Recorded Client Recorded Date Recorded By Document 04/17/21 09:45 [id number] 04/17/21 09:50 JF Document 05/01/21 09:36 [id number] 05/01/21 09:38 JF Edit Result 05/01/21 09:36 JF (1) [id number] 05/01/21 09:42 JF (1) #3 Left Heel - Anesthetic Used 4% Lidocaine => 4% Lidocaine Solution => Solution,5% => Lidocaine Gel 04/17/21 05/01/21 09:45 09:36 Wound Center Nurse 1 #3 Left Heel -Combined with other wound No No -Current Size (cm) - Length 2.8 3.3 -Current Size (cm) - Width 3.3 0.8 -Current Size (cm) - Depth 0.1 0.1 -Total Square Cm 9.24 2.64 -Photo Taken No No -Epithelialization Small 1-33% Small 1-33% -Tunneling No No -Undermining/Tunneling No No -Circular Undermining No No -Exudate Amt Medium Medium -Exudate Type Serosanguineous Serosanguineous -Wound Margin Flat & Intact Flat & Intact -Granulation Amt Large (67-100%) Large (67-100%) -Granulation Quality Red Red -Slough/Fibrin Yes Yes -Necrosis Amt Small (1-33%) Small (1-33%) -Necrotic Tissue Type Adherent Slough Adherent Slough -Structure Exposed N/A N/A -Texture (Camila-wound Skin Appearance) Assessed Assessed,Callus ,Localized Edema -Moisture (Camila-wound Skin Appearance) Assessed,Dry/ Assessed,Dry/ Scaly Scaly -Color (Camila-wound Skin Appearance) Assessed Assessed -Temperature (Camila-wound Skin No Abnormality No Abnormality Appearance) (Pt Warm) (Pt Warm) -Tenderness on Palpation (Camila-wound No No Skin Appearance) -Ulcer Cleansing Rinsed/ Wound Cleanser Irrigated with Saline -Foul Odor after Cleansing No No -Anesthetic Used 4% Lidocaine 4% Lidocaine Solution Solution,5% Lidocaine Gel Lower Limb Edema Present Yes No Left Calf (cm) 51.2 Left Ankle (cm) 31.2 WC - Nurse 2 - General Ulcer CM Notes Start: 04/17/21 09:42 Freq: Status: Active Protocol: Activity Type Activity Date Activity User E-Sign Co-Sign Detail Recorded Client Recorded Date Recorded By Document 04/17/21 10:19 MW [id number] 04/17/21 10:32 MW Document 05/01/21 09:57 MW [id number] 05/01/21 10:05 MW Edit Result 05/01/21 09:57 MW (1) [id number] 05/01/21 10:06 MW (1) #3 Left Heel - Expiration Date => 12/15/25 - Product Lot Number => [id number] - Percent Used => 100 - Lot number of Saline Used => [id number] 04/17/21 05/01/21 10:19 09:57 Wound Center Nurse 2 #3 Left Heel -Time 10: 09:57 -Correct Patient Yes Yes -Correct Side, Site, Position Yes Yes -Correct Procedure Yes Yes -Procedure Performed Yes Yes -Type of Procedure Debridement Debridement -Clinical Debridement Subcutaneous Subcutaneous -Tissue Removed Subcutaneous Subcutaneous -Post Debridement (cm) - Length 2.8 3.5 -Post Debridement (cm) - Width 3.0 2.5 -Post Debridement (cm) - Depth 0.1 0.1 -Total Square (Post) (cm) 8.40 8.75 -Area of Debridement (cm) - Length 2.8 3.5 -Area of Debridement (cm) - Width 3.0 2.5 -Total Square (Area) (cm) 8.40 8.75 -Tunneling No No -Undermining/Tunneling No No -Circular Undermining No No -Wound/Ulcer Outcome Not Healed Not Healed -Ulcer Cleansing Rinsed/ Rinsed/ Irrigated with Irrigated with Saline Saline -Foul Odor after Cleansing No No -Bioengineered Tissue Yes Yes -Type of Bioengineered Tissue Epifix Mesh Epifix Mesh -Expiration Date 12/15/25 12/15/25 -Product Lot Number [id number] -Percent Used 100 100 -Lot number of Saline Used [id number] -Bleeding Controlled with Pressure Pressure -Offloading No No -Treatment Response Procedure Procedure Tolerated Well Tolerated Well -Debridement - Subq, 1st 20sq cm No No -Apply Skin Sub - 1st 25 sq cm - Legs 1 -Apply Skin Sub - 1st 25 sq cm - Feet 1 -Epifix Mesh (per sq cm) 11 11 Pain Scale: 0-10 Numeric Is Patient Pain Free? Yes Yes WC - Nurse 3 - General Ulcer D/C NN Start: 04/17/21 09:42 Freq: Status: Active Protocol: Activity Type Activity Date Activity User E-Sign Co-Sign Detail Recorded Client Recorded Date Recorded By Document 04/17/21 10:48 MAURA [id number] 04/17/21 10:49 AK Document 05/01/21 11:16 AK [id number] 05/01/21 11:17 AK 04/17/21 05/01/21 10:48 11:16 Wound Care Nurse 3 #3 Left Heel -Foul Odor after Cleansing No -Negative Pressure Wound Therapy N/A -Other Dressing ABD Heel cap nurse hat -Primary Dressing Covered/Secured with Dry Gauze & Dry Gauze & Roll Gauze, Roll Gauze, Secured with Secured with Tape Tape Left -Compression Wrap Frank Wrap Frank Wrap WC - Visit Discharge Discharge Condition Stable Ambulatory Status Wheelchair Medication Reconcilliation completed & No provided to patient/care provider Clinical Summary of Care Provided Yes Assessment/Plan Assessment/Plan (1) Diabetic ulcer of left heel: CODE(S): E11.621 - Type 2 diabetes mellitus with foot ulcer; L97.429 - Non-pressure chronic ulcer of left heel and midfoot with unspecified severity QUALIFIERS: Diabetes mellitus type: type 2 Non-pressure ulcer stage: with fat layer exposed Qualified Code(s): E11.621 - Type 2 diabetes mellitus with foot ulcer; L97.422 - Non-pressure chronic ulcer of left heel and midfoot with fat layer exposed (2) Decubitus ulcer of left buttock, stage 3: CODE(S): L89.323 - Pressure ulcer of left buttock, stage 3 (3) Type 2 diabetes mellitus: CODE(S): E11.9 - Type 2 diabetes mellitus without complications QUALIFIERS: Diabetes mellitus jail insulin use: with jail use Diabetes mellitus complication status: with skin complications Diabetes mellitus complication detail: with foot ulcer Qualified Code(s): E11.621 - Type 2 diabetes mellitus with foot ulcer; L97.509 - Non-pressure chronic ulcer of other part of unspecified foot with unspecified severity; 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 Mild worsening due to new area above previous ulcer which was clustered. Epifix said to have ' fallen off last week and has not had any dressing applied. Missed his last appointment as well due to transportation issues. 2nd application done using 100% of product. Moistened with hydrogel with Adaptic over top. Secured with Steri-Strips. Leave in place for a week. Follow-up for Courtesy visit in 1 week with Jass Armando DNP. Offloading very strongly recommended. Optimal diabetes control discussed. Increase vitamin C, D and zinc. He voiced understanding. Increased protein intake also discussed. He was advised to call with any questions or concerns. Follow up with me in 2 weeks. This note was generated with [email or web address] dictation software. It may contain incorrect words, spelling, and punctuation that were not noted in checking the note before signing.
[2021-05-08 13:31] VITALS: BP 111/61; PULSE 77; RESP 18; TEMP 36.2
--- NOTE | 2021-05-08 23:27 | PCM.WC.PN ---
History of Present Illness Date of Service: 05/08/21 Chief Complaint: Left Heel and Buttock Ulcer History of Wound: Mr. Ordoñez is a 55 yo who presents to the wound center due to nonhealing left heel and buttock ulcers. He states that he only noted it 2 weeks ago after he was discharged from the hospital. Currently resides at [facility] where dressings have been done however no significant improvement. Patient states that there has been a foul smell. Not sure how much drainage he has had. History of diabetes mellitus type 2 which is not well controlled. He states that his insulin dose was recently adjusted and since then, his readings have been in the 300s. He denies chills, fever or otherwise feeling of unwell. Progress of Wound: Courtesy visit for Dr. Salcido, no new concerns, had had 2 application of Epifix Objective Data Objective Data Vital Signs: Vital Signs Temp Pulse Resp BP 97.2 F L 77 18 111/61 05/08/21 13:31 05/08/21 13:31 05/08/21 13:31 05/08/21 13:31 Charges/Coding Procedures Integumentary 150xxx-152xx: 34238 Skin sub graft face/nk/hf/g Physical Exam Const alert, oriented x3 and no apparent distress General Appearance: cooperative and comfortable Orientation / Consciousness: awake HEENT normocephalic and head/scalp atraumatic Eyes EOMs intact bilaterally General Eye: normal appearance of both eyes Neck full ROM General: normal visual inspection Resp normal respiratory effort Effort and Inspection: able to speak in complete sentences Skin Wounds: wounds noted Neuro oriented x3, CN's II-XII intact bilaterally and moves all extremities Psych mental status grossly normal Appearance: grossly normal Debridement Note Debridement Note Wound debrided: Left heel DFU Laterality: Left Type of Debridement: Excisional debridement Anesthesia Used: 5% Lidocaine Gel Depth: in the subcutaneous layer Percentage of wound debrided: 100 Instrument Used: 5mm curette Tissue Removed: Slough and devitalized tissue Severity: Fat Layer Exposed Amount of bleeding with debridement: Mild Bleeding Controlled with: Pressure Patient tolerated procedure: Patient tolerated procedure well Post-Debridement Measurements and Additional Note: Post-Debridement Measurements/Treatment [id number] - Nurse 1 - General Ulcer Assessment Start: 04/17/21 09:42 Freq: Status: Active Protocol: SADNRA Activity Type Activity Date Activity User E-Sign Co-Sign Detail Recorded Client Recorded Date Recorded By Document 04/17/21 09:45 [id number] 04/17/21 09:50 JF Document 05/01/21 09:30 JF [id number] 05/01/21 09:36 JF Document 05/08/21 13:31 RB [id number] 05/08/21 13:33 RB 04/17/21 05/01/21 05/08/21 09:45 09:30 13:31 - Today's Visit Information Type of service Follow-up Visit Follow-up Visit Follow-up Visit (Physician/HOOP FLARING MACHINE OPERATOR (Physician/HOOP FLARING MACHINE OPERATOR (Physician/HOOP FLARING MACHINE OPERATOR ) ) ) Arrival Mode Wheelchair Wheelchair Wheelchair Transfer Assistance Manual Manual Manual Patient Identification Verified (Name & Yes Yes Yes ) Patient Requires Transmission-Based No No No Precautions Finger Stick Blood Sugar(mg/dl) (if 138 56 169 indicated): Blood Sugar Stated by Stated by Stated by Patient Patient Patient Vital Signs Temperature (97.8 F-99.1 F) 96.8 F L 97.6 F L 97.2 F L Temperature Source Temporal Temporal Temporal Pulse Rate (60-100) 79 78 77 Pulse Location Monitor Monitor Monitor Respiratory Rate (12-18) 16 16 18 Respiratory rate source Observation Observation Observation Blood Pressure (90/60-120/80) 92/49 L 84/53 L 111/61 Blood Pressure Mean (mm Hg) 63 63 77 Source Monitor Monitor Monitor Position Sitting Sitting Sitting Blood Pressure Location Left Arm Left Arm Left Arm History Since Last Visit- (Skip if this is Patient's initial visit) Have you changed medications since your No No No last visit? Any new allergies or adverse reactions No No No Had a fall/change in ADL's that may No No No increase risk of falls Signs or symptoms of abuse and/or No No No neglect since last visit Have you been in the hospital since your No No last visit? Has dressing in place as prescribed Yes Yes Yes Has compression in place as prescribed N/A N/A Yes Has offloadiing in place as prescribed Yes N/A No Experienced any changes in pain level or No No No management Left Footwear No Footwear No Footwear Right Footwear No Footwear No Footwear Pain Scale: 0-10 Numeric Is Patient Pain Free? Yes Yes Yes [facility] Nurse 1 - General Ulcer Measurement Start: 04/17/21 09:42 Freq: Status: Active Protocol: Activity Type Activity Date Activity User E-Sign Co-Sign Detail Recorded Client Recorded Date Recorded By Document 04/17/21 09:45 JF [id number] 04/17/21 09:50 JF Document 05/01/21 09:36 JF [id number] 05/01/21 09:38 JF Edit Result 05/01/21 09:36 JF (1) [id number] 05/01/21 09:42 JF Document 05/08/21 13:31 RB [id number] 05/08/21 13:33 RB (1) #3 Left Heel - Anesthetic Used 4% Lidocaine => 4% Lidocaine Solution => Solution,5% => Lidocaine Gel 04/17/21 05/01/21 05/08/21 09:45 09:36 13:31 Wound Center Nurse 1 #3 Left Heel -Combined with other wound No No No -Current Size (cm) - Length 2.8 3.3 2.2 -Current Size (cm) - Width 3.3 0.8 2 -Current Size (cm) - Depth 0.1 0.1 0.1 -Total Square Cm 9.24 2.64 4.4 -Photo Taken No No -Epithelialization Small 1-33% Small 1-33% -Tunneling No No No -Undermining/Tunneling No No No -Circular Undermining No No No -Exudate Amt Medium Medium Medium -Exudate Type Serosanguineous Serosanguineous Serosanguineous -Wound Margin Flat & Intact Flat & Intact Fibrotic Scar, Thickened Scar -Granulation Amt Large (67-100%) Large (67-100%) Medium (34-66%) -Granulation Quality Red [place] -Slough/Fibrin Yes Yes Yes -Necrosis Amt Small (1-33%) Small (1-33%) Medium (34-66%) -Necrotic Tissue Type Adherent Slough Adherent Slough Adherent Slough -Structure Exposed N/A N/A N/A -Texture (Camila-wound Skin Appearance) Assessed Assessed,Callus Assessed,Callus ,Localized Edema -Moisture (Camila-wound Skin Appearance) Assessed,Dry/ Assessed,Dry/ Assessed Scaly Scaly -Color (Camila-wound Skin Appearance) Assessed Assessed Assessed -Temperature (Camila-wound Skin No Abnormality No Abnormality No Abnormality Appearance) (Pt Warm) (Pt Warm) (Pt Warm) -Tenderness on Palpation (Camila-wound No No No Skin Appearance) -Ulcer Cleansing Rinsed/ Wound Cleanser Wound Cleanser Irrigated with Saline -Foul Odor after Cleansing No No No -Anesthetic Used 4% Lidocaine 4% Lidocaine 5% Lidocaine Solution Solution,5% Gel Lidocaine Gel Lower Limb Edema Present Yes No Yes Left Calf (cm) 51.2 46 Left Ankle (cm) 31.2 26.8 WC - Nurse 2 - General Ulcer CM Notes Start: 04/17/21 09:42 Freq: Status: Active Protocol: Activity Type Activity Date Activity User E-Sign Co-Sign Detail Recorded Client Recorded Date Recorded By Document 04/17/21 10:19 MW [id number] 04/17/21 10:32 MW Document 05/01/21 09:57 MW [id number] 05/01/21 10:05 MW Edit Result 05/01/21 09:57 MW (1) [id number] 05/01/21 10:06 MW Document 05/08/21 13:48 MW [id number] 05/08/21 13:56 MW (1) #3 Left Heel - Expiration Date => 12/15/25 - Product Lot Number => [id number] - Percent Used => 100 - Lot number of Saline Used => [id number] 04/17/21 05/01/21 05/08/21 10:19 09:57 13:48 Wound Center Nurse 2 #3 Left Heel -Time 10: 09:57 13:48 -Correct Patient Yes Yes Yes -Correct Side, Site, Position Yes Yes Yes -Correct Procedure Yes Yes Yes -Procedure Performed Yes Yes Yes -Type of Procedure Debridement Debridement Debridement -Clinical Debridement Subcutaneous Subcutaneous Subcutaneous -Tissue Removed Subcutaneous Subcutaneous Subcutaneous -Post Debridement (cm) - Length 2.8 3.5 3.2 -Post Debridement (cm) - Width 3.0 2.5 2.5 -Post Debridement (cm) - Depth 0.1 0.1 0.1 -Total Square (Post) (cm) 8.40 8.75 8.00 -Area of Debridement (cm) - Length 2.8 3.5 3.2 -Area of Debridement (cm) - Width 3.0 2.5 2.5 -Total Square (Area) (cm) 8.40 8.75 8.00 -Tunneling No No No -Undermining/Tunneling No No No -Circular Undermining No No No -Wound/Ulcer Outcome Not Healed Not Healed Not Healed -Ulcer Cleansing Rinsed/ Rinsed/ Rinsed/ Irrigated with Irrigated with Irrigated with Saline Saline Saline -Foul Odor after Cleansing No No No -Bioengineered Tissue Yes Yes Yes -Type of Bioengineered Tissue Epifix Mesh Epifix Mesh Epifix Mesh -Expiration Date 12/15/25 12/15/25 01/15/26 -Product Lot Number [id number] -Percent Used 100 100 100 -Lot number of Saline Used [id number] -Bleeding Controlled with Pressure Pressure Pressure -Offloading No No No -Treatment Response Procedure Procedure Procedure Tolerated Well Tolerated Well Tolerated Well -Debridement - Subq, 1st 20sq cm No No No -Apply Skin Sub - 1st 25 sq cm - Legs 1 -Apply Skin Sub - 1st 25 sq cm - Feet 1 1 -Epifix Mesh (per sq cm) 11 11 11 Pain Scale: 0-10 Numeric Is Patient Pain Free? Yes Yes Yes WC - Nurse 3 - General Ulcer D/C NN Start: 04/17/21 09:42 Freq: Status: Active Protocol: Activity Type Activity Date Activity User E-Sign Co-Sign Detail Recorded Client Recorded Date Recorded By Document 04/17/21 10:48 AK [id number] 04/17/21 10:49 AK Document 05/01/21 11:16 AK [id number] 05/01/21 11:17 AK Document 05/08/21 13:59 RB [id number] 05/08/21 14:01 RB 04/17/21 05/01/21 05/08/21 10:48 11:16 13:59 Wound Care Nurse 3 #3 Left Heel -Foul Odor after Cleansing No -Negative Pressure Wound Therapy N/A -Other Dressing ABD Heel cap nurse hat abd nurses hat -Primary Dressing Covered/Secured with Dry Gauze & Dry Gauze & Dry Gauze,Dry Roll Gauze, Roll Gauze, Gauze & Roll Secured with Secured with Gauze,Secured Tape Tape with Tape Left -Compression Wrap Frank Wrap Frank Wrap -Other frank Treatment Response Procedure Tolerated Well Pain Scale: 0-10 Numeric Is Patient Pain Free? Yes WC - Visit Discharge Discharge Condition Stable Stable Ambulatory Status Wheelchair Wheelchair Transportation [facility] Medication Reconcilliation completed & No No provided to patient/care provider Clinical Summary of Care Provided Yes Yes Assessment/Plan Assessment/Plan (1) Diabetic ulcer of left heel: CODE(S): E11.621 - Type 2 diabetes mellitus with foot ulcer; L97.429 - Non-pressure chronic ulcer of left heel and midfoot with unspecified severity QUALIFIERS: Diabetes mellitus type: type 2 Non-pressure ulcer stage: with fat layer exposed Qualified Code(s): E11.621 - Type 2 diabetes mellitus with foot ulcer; L97.422 - Non-pressure chronic ulcer of left heel and midfoot with fat layer exposed (2) Decubitus ulcer of left buttock, stage 3: CODE(S): L89.323 - Pressure ulcer of left buttock, stage 3 (3) Type 2 diabetes mellitus: CODE(S): E11.9 - Type 2 diabetes mellitus without complications QUALIFIERS: Diabetes mellitus skilled nursing insulin use: with skilled nursing use Diabetes mellitus complication status: with skin complications Diabetes mellitus complication detail: with foot ulcer Qualified Code(s): E11.621 - Type 2 diabetes mellitus with foot ulcer; L97.509 - Non-pressure chronic ulcer of other part of unspecified foot with unspecified severity; Z79.4 - [facility] (current) use of insulin (4) Tobacco use: CODE(S): Z72.0 - Tobacco use PLAN: Courtesy visit for Dr. Salcido- Debridement done as documented above, procedure was well-tolerated. Wound is stable and patient was able to keep Epifix in place this past week. 3rd application done using 100% of 4 x 4.5 cm mesh product. Moistened with hydrogel with Adaptic over top. Secured with Steri-Strips. Leave in place for a week. Follow-up in 1 week. Offloading very strongly recommended. Optimal diabetes control discussed. Increase vitamin C, D and zinc. He voiced understanding. Increased protein intake also discussed. He was advised to call with any questions or concerns. This note was generated with [employer] dictation software. It may contain incorrect words, spelling, and punctuation that were not noted in checking the note before signing.
[2021-05-15 08:57] VITALS: BP 117/60; PULSE 81; RESP 20; TEMP 36.2
--- NOTE | 2021-05-15 09:56 | PCM.WC.PN ---
History of Present Illness Date of Service: 05/15/21 Chief Complaint: Left Heel and Buttock Ulcer History of Wound: Mr. Ordoñez is a 55 yo who presents to the wound center due to nonhealing left heel and buttock ulcers. He states that he only noted it 2 weeks ago after he was discharged from the hospital. Currently resides at [facility] where dressings have been done however no significant improvement. Patient states that there has been a foul smell. Not sure how much drainage he has had. History of diabetes mellitus type 2 which is not well controlled. He states that his insulin dose was recently adjusted and since then, his readings have been in the 300s. He denies chills, fever or otherwise feeling of unwell. Progress of Wound: No new concerns at this time. Has had 3 applications of Epifix so far. Subjective Subjective He denies any acute concerns at this time. Objective Data Objective Data Vital Signs: Vital Signs Temp Pulse Resp BP 97.1 F L 81 20 H 117/60 05/15/21 08:57 05/15/21 08:57 05/15/21 08:57 05/15/21 08:57 Charges/Coding Procedures Integumentary 150xxx-152xx: [id number] Skin sub graft trnk/arm/leg Physical Exam Const alert, oriented x3 and no apparent distress General Appearance: cooperative and comfortable Orientation / Consciousness: awake HEENT normocephalic and head/scalp atraumatic Eyes EOMs intact bilaterally General Eye: normal appearance of both eyes Neck full ROM General: normal visual inspection Resp normal respiratory effort Effort and Inspection: able to speak in complete sentences Skin Wounds: wounds noted Neuro oriented x3, CN's II-XII intact bilaterally and moves all extremities Psych mental status grossly normal Appearance: grossly normal Debridement Note Debridement Note Wound debrided: left heel Type of Debridement: Excisional debridement Anesthesia Used: 4% Lidocaine Solution Depth: Down to and including healthy tissue and in the subcutaneous layer Percentage of wound debrided: 100 Instrument Used: 5mm curette Tissue Removed: Slough and devitalized tissue Severity: Fat Layer Exposed Amount of bleeding with debridement: Mild Bleeding Controlled with: Pressure Patient tolerated procedure: Patient tolerated procedure well Post-Debridement Measurements and Additional Note: Post-Debridement Measurements/Treatment [id number] - Nurse 1 - General Ulcer Assessment Start: 04/17/21 09:42 Freq: Status: Active Protocol: SANDRA Activity Type Activity Date Activity User E-Sign Co-Sign Detail Recorded Client Recorded Date Recorded By Document 04/17/21 09:45 JF [id number] 04/17/21 09:50 JF Document 05/01/21 09:30 JF [id number] 05/01/21 09:36 JF Document 05/08/21 13:31 RB [id number] 05/08/21 13:33 RB Document 05/15/21 08:57 AK [id number] 05/15/21 09:00 AK 04/17/21 05/01/21 05/08/21 09:45 09:30 13:31 - Today's Visit Information Type of service Follow-up Visit Follow-up Visit Follow-up Visit (Physician/FOOD BROKER (Physician/FOOD BROKER (Physician/FOOD BROKER ) ) ) Arrival Mode Wheelchair Wheelchair Wheelchair Transfer Assistance Manual Manual Manual Patient Identification Verified (Name & Yes Yes Yes ) Patient Requires Transmission-Based No No No Precautions Finger Stick Blood Sugar(mg/dl) (if [phone] indicated): Blood Sugar Stated by Stated by Stated by Patient Patient Patient Vital Signs Temperature (97.8 F-99.1 F) 96.8 F L 97.6 F L 97.2 F L Temperature Source Temporal Temporal Temporal Pulse Rate (60-100) 79 78 77 Pulse Location Monitor Monitor Monitor Respiratory Rate (12-18) 16 16 18 Respiratory rate source Observation Observation Observation Blood Pressure (90/60-120/80) 92/49 L 84/53 L 111/61 Blood Pressure Mean (mm Hg) 63 63 77 Source Monitor Monitor Monitor Position Sitting Sitting Sitting Blood Pressure Location Left Arm Left Arm Left Arm History Since Last Visit- (Skip if this is Patient's initial visit) Have you changed medications since your No No No last visit? Any new allergies or adverse reactions No No No Had a fall/change in ADL's that may No No No increase risk of falls Signs or symptoms of abuse and/or No No No neglect since last visit Have you been in the hospital since your No No last visit? Has dressing in place as prescribed Yes Yes Yes Has compression in place as prescribed N/A N/A Yes Has offloadiing in place as prescribed Yes N/A No Experienced any changes in pain level or No No No management Left Footwear No Footwear No Footwear Right Footwear No Footwear No Footwear Pain Scale: 0-10 Numeric Is Patient Pain Free? Yes Yes Yes 05/15/21 08:57 - Today's Visit Information Type of service Follow-up Visit (Physician/FOOD BROKER ) Arrival Mode Wheelchair Transfer Assistance None Patient Identification Verified (Name & Yes ) Patient Requires Transmission-Based No Precautions Finger Stick Blood Sugar(mg/dl) (if 155 indicated): Blood Sugar Stated by Patient Vital Signs Temperature (97.8 F-99.1 F) 97.1 F L Temperature Source Temporal Pulse Rate (60-100) 81 Pulse Location Monitor Respiratory Rate (12-18) 20 H Respiratory rate source Observation Blood Pressure (90/60-120/80) 117/60 Blood Pressure Mean (mm Hg) 79 Source Monitor Position Blood Pressure Location History Since Last Visit- (Skip if this is Patient's initial visit) Have you changed medications since your No last visit? Any new allergies or adverse reactions No Had a fall/change in ADL's that may No increase risk of falls Signs or symptoms of abuse and/or No neglect since last visit Have you been in the hospital since your No last visit? Has dressing in place as prescribed Yes Has compression in place as prescribed Yes Has offloadiing in place as prescribed Yes Experienced any changes in pain level or No management Left Footwear Slipper Right Footwear Slipper Pain Scale: 0-10 Numeric Is Patient Pain Free? Yes - Nurse 1 - General Ulcer Measurement Start: 04/17/21 09:42 Freq: Status: Active Protocol: Activity Type Activity Date Activity User E-Sign Co-Sign Detail Recorded Client Recorded Date Recorded By Document 04/17/21 09:45 JF [id number] 04/17/21 09:50 JF Document 05/01/21 09:36 JF [id number] 05/01/21 09:38 JF Edit Result 05/01/21 09:36 JF (1) [id number] 05/01/21 09:42 JF Document 05/08/21 13:31 RB [id number] 05/08/21 13:33 RB Document 05/15/21 08:57 AK [id number] 05/15/21 09:00 AK (1) #3 Left Heel - Anesthetic Used 4% Lidocaine => 4% Lidocaine Solution => Solution,5% => Lidocaine Gel 04/17/21 05/01/21 05/08/21 09:45 09:36 13:31 Wound Center Nurse 1 #3 Left Heel -Combined with other wound No No No -Current Size (cm) - Length 2.8 3.3 2.2 -Current Size (cm) - Width 3.3 0.8 2 -Current Size (cm) - Depth 0.1 0.1 0.1 -Total Square Cm 9.24 2.64 4.4 -Photo Taken No No -Epithelialization Small 1-33% Small 1-33% -Tunneling No No No -Undermining/Tunneling No No No -Circular Undermining No No No -Exudate Amt Medium Medium Medium -Exudate Type Serosanguineous Serosanguineous Serosanguineous -Wound Margin Flat & Intact Flat & Intact Fibrotic Scar, Thickened Scar -Granulation Amt Large (67-100%) Large (67-100%) Medium (34-66%) -Granulation Quality Red Red [place] -Slough/Fibrin Yes Yes Yes -Necrosis Amt Small (1-33%) Small (1-33%) Medium (34-66%) -Necrotic Tissue Type Adherent Slough Adherent Slough Adherent Slough -Structure Exposed N/A N/A N/A -Texture (Camila-wound Skin Appearance) Assessed Assessed,Callus Assessed,Callus ,Localized Edema -Moisture (Camila-wound Skin Appearance) Assessed,Dry/ Assessed,Dry/ Assessed Scaly Scaly -Color (Camila-wound Skin Appearance) Assessed Assessed Assessed -Temperature (Camila-wound Skin No Abnormality No Abnormality No Abnormality Appearance) (Pt Warm) (Pt Warm) (Pt Warm) -Tenderness on Palpation (Camila-wound No No No Skin Appearance) -Ulcer Cleansing Rinsed/ Wound Cleanser Wound Cleanser Irrigated with Saline -Foul Odor after Cleansing No No No -Anesthetic Used 4% Lidocaine 4% Lidocaine 5% Lidocaine Solution Solution,5% Gel Lidocaine Gel Lower Limb Edema Present Yes No Yes Left Calf (cm) 51.2 46 Left Ankle (cm) 31.2 26.8 05/15/21 08:57 Wound Center Nurse 1 #3 Left Heel -Combined with other wound -Current Size (cm) - Length 1.6 -Current Size (cm) - Width 1.8 -Current Size (cm) - Depth 0.1 -Total Square Cm 2.88 -Photo Taken No -Epithelialization -Tunneling -Undermining/Tunneling -Circular Undermining -Exudate Amt Medium -Exudate Type Serosanguineous -Wound Margin Thickened -Granulation Amt Medium (34-66%) -Granulation Quality [place]ace -Slough/Fibrin -Necrosis Amt Medium (34-66%) -Necrotic Tissue Type Adherent Slough -Structure Exposed N/A -Texture (Camila-wound Skin Appearance) Callus,Scarring -Moisture (Camila-wound Skin Appearance) Dry/Scaly -Color (Camila-wound Skin Appearance) No Abnormality -Temperature (Camila-wound Skin No Abnormality Appearance) (Pt Warm) -Tenderness on Palpation (Camila-wound No Skin Appearance) -Ulcer Cleansing Soap and Water -Foul Odor after Cleansing -Anesthetic Used 5% Lidocaine Gel Lower Limb Edema Present Left Calf (cm) 47 Left Ankle (cm) 28.2 WC - Nurse 2 - General Ulcer CM Notes Start: 04/17/21 09:42 Freq: Status: Active Protocol: Activity Type Activity Date Activity User E-Sign Co-Sign Detail Recorded Client Recorded Date Recorded By Document 04/17/21 10:19 MW [id number] 04/17/21 10:32 MW Document 05/01/21 09:57 MW [id number] 05/01/21 10:05 MW Edit Result 05/01/21 09:57 MW (1) [id number] 05/01/21 10:06 MW Document 05/08/21 13:48 MW [id number] 05/08/21 13:56 MW Document 05/15/21 09:10 MW [id number] 05/15/21 09:22 MW (1) #3 Left Heel - Expiration Date => 12/15/25 - Product Lot Number => [id number] - Percent Used => 100 - Lot number of Saline Used => [id number] 04/17/21 05/01/21 05/08/21 10:19 09:57 13:48 Wound Center Nurse 2 #3 Left Heel -Time 10: 09:57 13:48 -Correct Patient Yes Yes Yes -Correct Side, Site, Position Yes Yes Yes -Correct Procedure Yes Yes Yes -Procedure Performed Yes Yes Yes -Type of Procedure Debridement Debridement Debridement -Clinical Debridement Subcutaneous Subcutaneous Subcutaneous -Tissue Removed Subcutaneous Subcutaneous Subcutaneous -Post Debridement (cm) - Length 2.8 3.5 3.2 -Post Debridement (cm) - Width 3.0 2.5 2.5 -Post Debridement (cm) - Depth 0.1 0.1 0.1 -Total Square (Post) (cm) 8.40 8.75 8.00 -Area of Debridement (cm) - Length 2.8 3.5 3.2 -Area of Debridement (cm) - Width 3.0 2.5 2.5 -Total Square (Area) (cm) 8.40 8.75 8.00 -Tunneling No No No -Undermining/Tunneling No No No -Circular Undermining No No No -Wound/Ulcer Outcome Not Healed Not Healed Not Healed -Ulcer Cleansing Rinsed/ Rinsed/ Rinsed/ Irrigated with Irrigated with Irrigated with Saline Saline Saline -Foul Odor after Cleansing No No No -Bioengineered Tissue Yes Yes Yes -Type of Bioengineered Tissue Epifix Mesh Epifix Mesh Epifix Mesh -Expiration Date 12/15/25 12/15/25 01/15/26 -Product Lot Number [id number] -Percent Used 100 100 100 -Lot number of Saline Used [id number] -Bleeding Controlled with Pressure Pressure Pressure -Offloading No No No -Treatment Response Procedure Procedure Procedure Tolerated Well Tolerated Well Tolerated Well -Debridement - Subq, 1st 20sq cm No No No -Apply Skin Sub - 1st 25 sq cm - Legs 1 -Apply Skin Sub - 1st 25 sq cm - Feet 1 1 -Epifix Mesh (per sq cm) 11 11 11 Pain Scale: 0-10 Numeric Is Patient Pain Free? Yes Yes Yes 05/15/21 09:10 Wound Center Nurse 2 #3 Left Heel -Time 09:11 -Correct Patient Yes -Correct Side, Site, Position Yes -Correct Procedure Yes -Procedure Performed Yes -Type of Procedure Debridement -Clinical Debridement Subcutaneous -Tissue Removed Subcutaneous -Post Debridement (cm) - Length 2.5 -Post Debridement (cm) - Width 2.0 -Post Debridement (cm) - Depth 0.1 -Total Square (Post) (cm) 5.00 -Area of Debridement (cm) - Length 2.5 -Area of Debridement (cm) - Width 2.0 -Total Square (Area) (cm) 5.00 -Tunneling No -Undermining/Tunneling No -Circular Undermining No -Wound/Ulcer Outcome Not Healed -Ulcer Cleansing Rinsed/ Irrigated with Saline -Foul Odor after Cleansing No -Bioengineered Tissue Yes -Type of Bioengineered Tissue Epifix Mesh -Expiration Date 01/15/26 -Product Lot Number [id number] -Percent Used 100 -Lot number of Saline Used [id number] -Bleeding Controlled with Pressure -Offloading No -Treatment Response Procedure Tolerated Well -Debridement - Subq, 1st 20sq cm No -Apply Skin Sub - 1st 25 sq cm - Legs -Apply Skin Sub - 1st 25 sq cm - Feet 1 -Epifix Mesh (per sq cm) 4 Pain Scale: 0-10 Numeric Is Patient Pain Free? Yes WC - Nurse 3 - General Ulcer D/C NN Start: 04/17/21 09:42 Freq: Status: Active Protocol: Activity Type Activity Date Activity User E-Sign Co-Sign Detail Recorded Client Recorded Date Recorded By Document 04/17/21 10:48 AK [id number] 04/17/21 10:49 AK Document 05/01/21 11:16 AK [id number] 05/01/21 11:17 AK Document 05/08/21 13:59 RB [id number] 05/08/21 14:01 RB Document 05/15/21 09:25 DL [id number] 05/15/21 09:26 DL 04/17/21 05/01/21 05/08/21 10:48 11:16 13:59 Wound Care Nurse 3 #3 Left Heel -Foul Odor after Cleansing No -Negative Pressure Wound Therapy N/A -Other Dressing ABD Heel cap nurse hat abd nurses hat -Primary Dressing Covered/Secured with Dry Gauze & Dry Gauze & Dry Gauze,Dry Roll Gauze, Roll Gauze, Gauze & Roll Secured with Secured with Gauze,Secured Tape Tape with Tape Left -Compression Wrap Frank Wrap Frank Wrap -Other frank Treatment Response Procedure Tolerated Well Pain Scale: 0-10 Numeric Is Patient Pain Free? Yes WC - Visit Discharge Discharge Condition Stable Stable Ambulatory Status Wheelchair Wheelchair Transportation [facility] Medication Reconcilliation completed & No No provided to patient/care provider Clinical Summary of Care Provided Yes Yes Facility Type Orders Sent 05/15/21 09:25 Wound Care Nurse 3 #3 Left Heel -Foul Odor after Cleansing No -Negative Pressure Wound Therapy -Other Dressing -Primary Dressing Covered/Secured with Dry Gauze & Roll Gauze, Secured with Tape Left -Compression Wrap Frank Wrap -Other Treatment Response Procedure Tolerated Well Pain Scale: 0-10 Numeric Is Patient Pain Free? Yes WC - Visit Discharge Discharge Condition Stable Ambulatory Status Wheelchair Transportation [facility] Medication Reconcilliation completed & provided to patient/care provider Clinical Summary of Care Provided Facility Type Detention Care Facility Orders Sent Yes Assessment/Plan Assessment/Plan (1) Diabetic ulcer of left heel: CODE(S): E11.621 - Type 2 diabetes mellitus with foot ulcer; L97.429 - Non-pressure chronic ulcer of left heel and midfoot with unspecified severity QUALIFIERS: Diabetes mellitus type: type 2 Non-pressure ulcer stage: with fat layer exposed Qualified Code(s): E11.621 - Type 2 diabetes mellitus with foot ulcer; L97.422 - Non-pressure chronic ulcer of left heel and midfoot with fat layer exposed (2) Decubitus ulcer of left buttock, stage 3: CODE(S): L89.323 - Pressure ulcer of left buttock, stage 3 (3) Type 2 diabetes mellitus: CODE(S): E11.9 - Type 2 diabetes mellitus without complications QUALIFIERS: 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 Improvement noted. 4th application of Epifix done using 100% of product. Moistened with hydrogel with wound veil over top. Secured with Steri-Strips. Leave in place for a week. Offloading very strongly recommended. Optimal diabetes control discussed. Increase vitamin C, D and zinc. He voiced understanding. Increased protein intake also discussed. He was advised to call with any questions or concerns. Follow up in 1 week. This note was generated with [employer] dictation software. It may contain incorrect words, spelling, and punctuation that were not noted in checking the note before signing.
== END 2021-05-16 23:59 ==
LOC: WC 09:15
PROVIDERS: PCP Nurse Practitioner Adult Health; Referring Provider Internal Medicine; Visit Provider Internal Medicine
DX: E11.621 Type 2 diabetes mellitus with foot ulcer (principal); L97.422 Non-pressure chronic ulcer of left heel and midfoot with fat layer exposed; L89.323 Pressure ulcer of left buttock, stage 3; L97.509 Non-pressure chronic ulcer of other part of unspecified foot with unspecified severity; Z72.0 Tobacco use; Z79.4 Long term (current) use of insulin
CPT/HCPCS: 15271; 15275; Q4186

== ENCOUNTER 2021-06-05 09:30 | Outpatient (RCR) | payer MEDICARE, MEDICAID, SELFPAY ==
[2021-05-17 00:31] VITALS: BP 117/60; PULSE 81; RESP 20; TEMP 36.2
[2021-05-29 09:21] VITALS: BP 102/50; PULSE 86; RESP 20; TEMP 36
--- NOTE | 2021-05-29 10:24 | PCM.WC.PN ---
History of Present Illness Date of Service: 05/29/21 Chief Complaint: Left Heel and Buttock Ulcer History of Wound: Mr. Ordoñez is a 55 yo who presents to the wound center due to nonhealing left heel and buttock ulcers. He states that he only noted it 2 weeks ago after he was discharged from the hospital. Currently resides at [facility] where dressings have been done however no significant improvement. Patient states that there has been a foul smell. Not sure how much drainage he has had. History of diabetes mellitus type 2 which is not well controlled. He states that his insulin dose was recently adjusted and since then, his readings have been in the 300s. He denies chills, fever or otherwise feeling of unwell. Progress of Wound: Has had 4 applications of Epifix so far. Missed his last appointment because he could not get a ride here. Ulcer is improving. Subjective Subjective He denies any acute concerns at this time. Objective Data Objective Data Vital Signs: Vital Signs Temp Pulse Resp BP 96.8 F L 86 20 H 102/50 L 05/29/21 09:21 05/29/21 09:21 05/29/21 09:21 05/29/21 09:21 Charges/Coding Procedures Integumentary 150xxx-152xx: 30888 Skin sub graft trnk/arm/leg Physical Exam Const alert, oriented x3 and no apparent distress General Appearance: cooperative and comfortable Orientation / Consciousness: awake HEENT normocephalic and head/scalp atraumatic Eyes EOMs intact bilaterally General Eye: normal appearance of both eyes Neck full ROM General: normal visual inspection Resp normal respiratory effort Effort and Inspection: able to speak in complete sentences Skin Wounds: wounds noted Neuro oriented x3, CN's II-XII intact bilaterally and moves all extremities Psych mental status grossly normal Appearance: grossly normal Debridement Note Debridement Note Wound debrided: Left heel Type of Debridement: Excisional debridement Anesthesia Used: 4% Lidocaine Solution Depth: Down to and including healthy tissue and in the subcutaneous layer Percentage of wound debrided: 100 Instrument Used: 5mm curette Tissue Removed: Slough and devitalized tissue Severity: Fat Layer Exposed Amount of bleeding with debridement: Mild Bleeding Controlled with: Pressure Patient tolerated procedure: Patient tolerated procedure well Post-Debridement Measurements and Additional Note: Post-Debridement Measurements/Treatment WC - Nurse 1 - General Ulcer Assessment Start: 05/29/21 09:21 Freq: Status: Active Protocol: YAHAIRA.NIRMALA Activity Type Activity Date Activity User E-Sign Co-Sign Detail Recorded Client Recorded Date Recorded By Document 05/29/21 09:21 DL [id number] 05/29/21 09:30 DL 05/29/21 09:21 - Today's Visit Information Type of service Follow-up Visit (Physician/CUSTOMS APPRAISER ) Arrival Mode Wheelchair Transfer Assistance None Patient Identification Verified (Name & Yes ) Patient Requires Transmission-Based No Precautions Finger Stick Blood Sugar(mg/dl) (if 116 indicated): Blood Sugar Stated by Patient Vital Signs Temperature (97.8 F-99.1 F) 96.8 F L Temperature Source Temporal Pulse Rate (60-100) 86 Pulse Location Monitor Respiratory Rate (12-18) 20 H Respiratory rate source Observation Blood Pressure (90/60-120/80) 102/50 L Blood Pressure Mean (mm Hg) 67 Source Monitor History Since Last Visit- (Skip if this is Patient's initial visit) Have you changed medications since your No last visit? Any new allergies or adverse reactions No Had a fall/change in ADL's that may No increase risk of falls Signs or symptoms of abuse and/or No neglect since last visit Have you been in the hospital since your No last visit? Has dressing in place as prescribed Yes Has compression in place as prescribed Yes Has offloadiing in place as prescribed Yes Experienced any changes in pain level or No management Left Footwear Slipper Right Footwear Slipper Pain Scale: 0-10 Numeric Is Patient Pain Free? Yes - Nurse 1 - General Ulcer Measurement Start: 05/29/21 09:21 Freq: Status: Active Protocol: Activity Type Activity Date Activity User E-Sign Co-Sign Detail Recorded Client Recorded Date Recorded By Document 05/29/21 09:21 DL [id number] 05/29/21 09:30 DL 05/29/21 09:21 Wound Center Nurse 1 #3 Left Heel -Current Size (cm) - Length 2.1 -Current Size (cm) - Width 1.5 -Current Size (cm) - Depth 0.1 -Total Square Cm 3.15 -Photo Taken No -Exudate Amt Small -Exudate Type Serosanguineous -Wound Margin Distinct, Outline Attached -Granulation Amt Large (67-100%) -Granulation Quality [place] -Necrosis Amt Small (1-33%) -Necrotic Tissue Type Adherent Slough -Structure Exposed N/A -Texture (Camila-wound Skin Appearance) Scarring -Moisture (Camila-wound Skin Appearance) Dry/Scaly -Color (Camila-wound Skin Appearance) No Abnormality -Temperature (Camila-wound Skin No Abnormality Appearance) (Pt Warm) -Tenderness on Palpation (Camila-wound No Skin Appearance) -Ulcer Cleansing Soap and Water -Foul Odor after Cleansing No -Anesthetic Used 5% Lidocaine Gel Left Calf (cm) 46.5 Left Ankle (cm) 26 WC - Nurse 2 - General Ulcer CM Notes Start: 05/29/21 09:21 Freq: Status: Active Protocol: Activity Type Activity Date Activity User E-Sign Co-Sign Detail Recorded Client Recorded Date Recorded By Document 05/29/21 09:38 MW [id number] 05/29/21 09:47 MW 05/29/21 09:38 Wound Center Nurse 2 #3 Left Heel -Time 09:39 -Correct Patient Yes -Correct Side, Site, Position Yes -Correct Procedure Yes -Procedure Performed Yes -Type of Procedure Debridement -Clinical Debridement Subcutaneous -Tissue Removed Subcutaneous -Post Debridement (cm) - Length 2.0 -Post Debridement (cm) - Width 1.5 -Post Debridement (cm) - Depth 0.1 -Total Square (Post) (cm) 3.00 -Area of Debridement (cm) - Length 2.0 -Area of Debridement (cm) - Width 1.5 -Total Square (Area) (cm) 3.00 -Tunneling No -Undermining/Tunneling No -Circular Undermining No -Wound/Ulcer Outcome Not Healed -Ulcer Cleansing Rinsed/ Irrigated with Saline -Foul Odor after Cleansing No -Bioengineered Tissue Yes -Type of Bioengineered Tissue Epifix -Expiration Date 02/14/26 -Product Lot Number [id number] -Percent Used 100 -Lot number of Saline Used [id number] -Bleeding Controlled with Pressure -Offloading No -Treatment Response Procedure Tolerated Well -Debridement - Subq, 1st 20sq cm No -Apply Skin Sub - 1st 25 sq cm - Feet 1 -Epifix (per sq cm) 4 Pain Scale: 0-10 Numeric Is Patient Pain Free? Yes WC - Nurse 3 - General Ulcer D/C NN Start: 05/29/21 09:21 Freq: Status: Active Protocol: Activity Type Activity Date Activity User E-Sign Co-Sign Detail Recorded Client Recorded Date Recorded By Document 05/29/21 10:00 DL [id number] 05/29/21 10:02 DL 05/29/21 10:00 Wound Care Nurse 3 #3 Left Heel -Foul Odor after Cleansing No -Other Dressing epifix -Primary Dressing Covered/Secured with Dry Gauze & Roll Gauze, Secured with Tape -Other Covering nurses hat Treatment Response Procedure Tolerated Well Pain Scale: 0-10 Numeric Is Patient Pain Free? Yes WC - Visit Discharge Discharge Condition Stable Ambulatory Status Wheelchair Transportation [facility] Type Electrical Automation Engineer Care Facility Orders Sent Yes Assessment/Plan Assessment/Plan (1) Diabetic ulcer of left heel: CODE(S): E11.621 - Type 2 diabetes mellitus with foot ulcer; L97.429 - Non-pressure chronic ulcer of left heel and midfoot with unspecified severity QUALIFIERS: Diabetes mellitus type: type 2 Non-pressure ulcer stage: with fat layer exposed Qualified Code(s): E11.621 - Type 2 diabetes mellitus with foot ulcer; L97.422 - Non-pressure chronic ulcer of left heel and midfoot with fat layer exposed (2) Decubitus ulcer of left buttock, stage 3: CODE(S): L89.323 - Pressure ulcer of left buttock, stage 3 (3) Type 2 diabetes mellitus: CODE(S): E11.9 - Type 2 diabetes mellitus without complications QUALIFIERS: Diabetes mellitus long term care social worker insulin use: with long term care social worker use Diabetes mellitus complication status: with skin complications Diabetes mellitus complication detail: with foot ulcer Qualified Code(s): E11.621 - Type 2 diabetes mellitus with foot ulcer; L97.509 - Non-pressure chronic ulcer of other part of unspecified foot with unspecified severity; Z79.4 - ferry terminal supervisor (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 Improvement noted. 5th application of Epifix done using 100% of product. Moistened with hydrogel with wound veil over top. Secured with Steri-Strips. Leave in place for a week. Offloading very strongly recommended. Optimal diabetes control discussed. Increase vitamin C, D and zinc. He voiced understanding. Increased protein intake also discussed. He was advised to call with any questions or concerns. Follow up in 1 week. This note was generated with [employer] software. It may contain incorrect words, spelling, and punctuation that were not noted in checking the note before signing.
[2021-06-05 09:37] VITALS: BP 119/60; PULSE 84; TEMP 35.7
--- NOTE | 2021-06-05 12:18 | PCM.WC.PN ---
History of Present Illness Date of Service: 06/05/21 Chief Complaint: Left Heel and Buttock Ulcer History of Wound: Mr. Ordoñez is a 55 yo who presents to the wound center due to nonhealing left heel and buttock ulcers. He states that he only noted it 2 weeks ago after he was discharged from the hospital. Currently resides at [facility] where dressings have been done however no significant improvement. Patient states that there has been a foul smell. Not sure how much drainage he has had. History of diabetes mellitus type 2 which is not well controlled. He states that his insulin dose was recently adjusted and since then, his readings have been in the 300s. He denies chills, fever or otherwise feeling of unwell. Progress of Wound: Has had 5 applications of Epifix so far. Ulcer is improving. Subjective Subjective He denies any acute concerns at this time. Objective Data Objective Data Vital Signs: Vital Signs Temp Pulse Resp BP 96.2 F L 84 20 H 119/60 06/05/21 09:37 06/05/21 09:37 05/29/21 09:21 06/05/21 09:37 Charges/Coding Procedures Integumentary 150xxx-152xx: 70564 Skin sub graft trnk/arm/leg Physical Exam Const alert, oriented x3 and no apparent distress General Appearance: cooperative and comfortable Orientation / Consciousness: awake HEENT normocephalic and head/scalp atraumatic Eyes EOMs intact bilaterally General Eye: normal appearance of both eyes Neck full ROM General: normal visual inspection Resp normal respiratory effort Effort and Inspection: able to speak in complete sentences Skin Wounds: wounds noted Neuro oriented x3, CN's II-XII intact bilaterally and moves all extremities Psych mental status grossly normal Appearance: grossly normal Debridement Note Debridement Note Wound debrided: Left Heel Type of Debridement: Excisional debridement Anesthesia Used: 4% Lidocaine Solution Depth: Down to and including healthy tissue and in the subcutaneous layer Percentage of wound debrided: 100 Instrument Used: 5mm curette Tissue Removed: Slough and devitalized tissue Severity: Fat Layer Exposed Amount of bleeding with debridement: Mild Bleeding Controlled with: Pressure Patient tolerated procedure: Patient tolerated procedure well Post-Debridement Measurements and Additional Note: Post-Debridement Measurements/Treatment YAHAIRA - Nurse 1 - General Ulcer Assessment Start: 05/29/21 09:21 Freq: Status: Active Protocol: SANDRA Activity Type Activity Date Activity User E-Sign Co-Sign Detail Recorded Client Recorded Date Recorded By Document 05/29/21 09:21 DL [id number] 05/29/21 09:30 DL Document 06/05/21 09:37 AK [id number] 06/05/21 09:46 AK 05/29/21 06/05/21 09:21 09:37 WC - Today's Visit Information Type of service Follow-up Visit Follow-up Visit (Physician/WELL SERVICING RIG OPERATOR (Physician/WELL SERVICING RIG OPERATOR ) ) Arrival Mode Wheelchair Wheelchair Transfer Assistance None Patient Identification Verified (Name & Yes Yes ) Patient Requires Transmission-Based No No Precautions Finger Stick Blood Sugar(mg/dl) (if 116 116 indicated): Blood Sugar Stated by Stated by Patient Patient Vital Signs Temperature (97.8 F-99.1 F) 96.8 F L 96.2 F L Temperature Source Temporal Temporal Pulse Rate (60-100) 86 84 Pulse Location Monitor Monitor Respiratory Rate (12-18) 20 H Respiratory rate source Observation Blood Pressure (90/60-120/80) 102/50 L 119/60 Blood Pressure Mean (mm Hg) 67 79 Source Monitor Monitor History Since Last Visit- (Skip if this is Patient's initial visit) Have you changed medications since your No No last visit? Any new allergies or adverse reactions No No Had a fall/change in ADL's that may No No increase risk of falls Signs or symptoms of abuse and/or No No neglect since last visit Have you been in the hospital since your No No last visit? Has dressing in place as prescribed Yes Yes Has compression in place as prescribed Yes Yes Has offloadiing in place as prescribed Yes N/A Experienced any changes in pain level or No No management Left Footwear Slipper Right Footwear Slipper Pain Scale: 0-10 Numeric Is Patient Pain Free? Yes Yes - Nurse 1 - General Ulcer Measurement Start: 05/29/21 09:21 Freq: Status: Active Protocol: Activity Type Activity Date Activity User E-Sign Co-Sign Detail Recorded Client Recorded Date Recorded By Document 05/29/21 09:21 DL [id number] 05/29/21 09:30 DL Document 06/05/21 09:37 AK [id number] 06/05/21 09:46 AK 05/29/21 06/05/21 09:21 09:37 Wound Center Nurse 1 #3 Left Heel -Combined with other wound No -Current Size (cm) - Length 2.1 1 -Current Size (cm) - Width 1.5 1.4 -Current Size (cm) - Depth 0.1 0.1 -Total Square Cm 3.15 1.4 -Photo Taken No No -Tunneling No -Undermining/Tunneling No -Circular Undermining No -Change in Wound Grade/Stage No -Exudate Amt Small -Exudate Type Serosanguineous -Wound Margin Distinct, Outline Attached -Granulation Amt Large (67-100%) -Granulation Quality [place] N/A -Slough/Fibrin Yes -Necrosis Amt Small (1-33%) Small (1-33%) -Necrotic Tissue Type Adherent Slough Adherent Slough -Structure Exposed N/A N/A -Texture (Camila-wound Skin Appearance) Scarring No Abnormality, Assessed -Moisture (Camila-wound Skin Appearance) Dry/Scaly Assessed,Dry/ Scaly -Color (Camila-wound Skin Appearance) No Abnormality No Abnormality, Assessed -Temperature (Camila-wound Skin No Abnormality No Abnormality Appearance) (Pt Warm) (Pt Warm) -Tenderness on Palpation (Camila-wound No No Skin Appearance) -Ulcer Cleansing Soap and Water Soap and Water -Foul Odor after Cleansing No No -Anesthetic Used 5% Lidocaine 4% Lidocaine Gel Solution Left Calf (cm) 46.5 44.4 Left Ankle (cm) 26 25 WC - Nurse 2 - General Ulcer CM Notes Start: 05/29/21 09:21 Freq: Status: Active Protocol: Activity Type Activity Date Activity User E-Sign Co-Sign Detail Recorded Client Recorded Date Recorded By Document 05/29/21 09:38 MW [id number] 05/29/21 09:47 MW Document 06/05/21 10:09 MW [id number] 06/05/21 10:17 MW 05/29/21 06/05/21 09:38 10:09 Wound Center Nurse 2 #3 Left Heel -Time 09:39 10:13 -Correct Patient Yes Yes -Correct Side, Site, Position Yes Yes -Correct Procedure Yes Yes -Procedure Performed Yes Yes -Type of Procedure Debridement Debridement -Clinical Debridement Subcutaneous Subcutaneous -Tissue Removed Subcutaneous Subcutaneous -Post Debridement (cm) - Length 2.0 1.2 -Post Debridement (cm) - Width 1.5 1.2 -Post Debridement (cm) - Depth 0.1 0.1 -Total Square (Post) (cm) 3.00 1.44 -Area of Debridement (cm) - Length 2.0 1.2 -Area of Debridement (cm) - Width 1.5 1.2 -Total Square (Area) (cm) 3.00 1.44 -Tunneling No No -Undermining/Tunneling No No -Circular Undermining No No -Wound/Ulcer Outcome Not Healed Not Healed -Ulcer Cleansing Rinsed/ Rinsed/ Irrigated with Irrigated with Saline Saline -Foul Odor after Cleansing No No -Bioengineered Tissue Yes Yes -Type of Bioengineered Tissue Epifix Epifix 18mm Disc -Expiration Date 02/14/26 01/15/26 -Product Lot Number [id number] -Percent Used 100 100 -Lot number of Saline Used [id number] -Bleeding Controlled with Pressure Pressure -Offloading No No -Treatment Response Procedure Procedure Tolerated Well Tolerated Well -Debridement - Subq, 1st 20sq cm No No -Apply Skin Sub - 1st 25 sq cm - Feet 1 1 -Epifix (per sq cm) 4 -Epifix 18mm Disc 3 Pain Scale: 0-10 Numeric Is Patient Pain Free? Yes Yes WC - Nurse 3 - General Ulcer D/C NN Start: 05/29/21 09:21 Freq: Status: Active Protocol: Activity Type Activity Date Activity User E-Sign Co-Sign Detail Recorded Client Recorded Date Recorded By Document 05/29/21 10:00 DL [id number] 05/29/21 10:02 DL Document 06/05/21 10:37 DL [id number] 06/05/21 10:39 DL 05/29/21 06/05/21 10:00 10:37 Wound Care Nurse 3 #3 Left Heel -Foul Odor after Cleansing No No -Other Dressing epifix epifix -Primary Dressing Covered/Secured with Dry Gauze & Dry Gauze Roll Gauze, Secured with Tape -Other Covering nurses hat Nurses Hat Left -Compression Wrap Frank Wrap Treatment Response Procedure Procedure Tolerated Well Tolerated Well Pain Scale: 0-10 Numeric Is Patient Pain Free? Yes Yes WC - Visit Discharge Discharge Condition Stable Stable Ambulatory Status Wheelchair Wheelchair Transportation [facility] Type [facility] Senior Ui Software Engineer Care Facility Facility Orders Sent Yes Yes Assessment/Plan Assessment/Plan (1) Diabetic ulcer of left heel: CODE(S): E11.621 - Type 2 diabetes mellitus with foot ulcer; L97.429 - Non-pressure chronic ulcer of left heel and midfoot with unspecified severity QUALIFIERS: Diabetes mellitus type: type 2 Non-pressure ulcer stage: with fat layer exposed Qualified Code(s): E11.621 - Type 2 diabetes mellitus with foot ulcer; L97.422 - Non-pressure chronic ulcer of left heel and midfoot with fat layer exposed (2) Decubitus ulcer of left buttock, stage 3: CODE(S): L89.323 - Pressure ulcer of left buttock, stage 3 (3) Type 2 diabetes mellitus: CODE(S): E11.9 - Type 2 diabetes mellitus without complications QUALIFIERS: Diabetes mellitus penitentiary insulin use: with manager intermediate use Diabetes mellitus complication status: with skin complications Diabetes mellitus complication detail: with foot ulcer Qualified Code(s): E11.621 - Type 2 diabetes mellitus with foot ulcer; L97.509 - Non-pressure chronic ulcer of other part of unspecified foot with unspecified severity; Z79.4 - manager intermediate (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 Improvement noted. 6th application of Epifix done using 100% of product. Moistened with hydrogel with wound veil over top. Secured with Steri-Strips. Leave in place for a week. Offloading very strongly recommended. Optimal diabetes control discussed. Increase vitamin C, D and zinc. He voiced understanding. Increased protein intake also discussed. He was advised to call with any questions or concerns. Follow up in 1 week. This note was generated with [employer] software. It may contain incorrect words, spelling, and punctuation that were not noted in checking the note before signing.
== END 2021-06-16 23:59 ==
LOC: WC 09:30
PROVIDERS: PCP Nurse Practitioner Adult Health; Referring Provider Internal Medicine; Visit Provider Internal Medicine
DX: E11.621 Type 2 diabetes mellitus with foot ulcer (principal); L89.323 Pressure ulcer of left buttock, stage 3; L97.422 Non-pressure chronic ulcer of left heel and midfoot with fat layer exposed; Z79.4 Long term (current) use of insulin; Z72.0 Tobacco use
CPT/HCPCS: 15275; Q4186

== ENCOUNTER 2021-11-13 08:30 | Outpatient (RCR) | payer MEDICARE, MEDICAID, SELFPAY ==
[2021-02-14 00:39] VITALS: BP 122/68; PULSE 82; TEMP 35.7
[2021-10-23 10:30] VITALS: BP 107/63; PULSE 77; RESP 18; TEMP 36.3; BMI 40.6
--- NOTE | 2021-10-23 12:07 | HP.PCM_ITS ---
History of Present Illness Date of Service: 10/23/21 Chief Complaint: Left Heel Ulcer History of Wound: Mr Ordoñez is a 56 yo who was last seen here In May for a left heel ulcer. He presents with a new left heel ulcer which started a month ago. Denies any known precipitating factor. He has been trying to manage it at his assisted living facility however measures so far have not been helpful. History of diabetes mellitus type 2 which had not been well controlled in the past. He denies chills, fever or otherwise feeling of unwell. [facility] Medical History (Updated 02/13/21 @ 14:[address] Lior Salcido MD) Anxiety and depression Bipolar disorder Chronic anemia Decubitus ulcer of left buttock, stage 3 Diabetes Diabetic ulcer of left heel HTN (hypertension) Hypercholesterolemia Morbid obesity Neuropathy Rheumatoid arthritis RUQ abdominal pain Tobacco use Type 2 diabetes mellitus Uncontrolled type 2 diabetes mellitus with hyperosmolar nonketotic hyperglycemia Home Medications B12 Active 1,000 mcg PO DAILY 11/27/20 [History Last Taken 01/16/21] amitriptyline 75 mg PO QHS 11/27/20 [History Last Taken 01/14/21] aspirin 81 mg PO DAILY 11/27/20 [History Last Taken 01/16/21] atorvastatin 80 mg PO QHS 11/27/20 [History Last Taken 01/14/21] buspirone 5 mg PO BID 11/27/20 [History Last Taken 01/16/21] cholecalciferol (vitamin D3) [Vitamin D3] 50 mcg PO DAILY 11/27/20 [History Last Taken 01/16/21] duloxetine 60 mg PO QHS 11/27/20 [History Last Taken Unknown] ezetimibe 10 mg PO DAILY 11/27/20 [History Last Taken 01/16/21] ferrous sulfate 325 mg PO DAILY 11/27/20 [History Last Taken 01/16/21] insulin lispro See Protocol SUBCUT TID 11/27/20 [History Last Taken 01/16/21] metoprolol tartrate 25 mg PO BID 11/27/20 [History Last Taken 01/16/21] omega 6-[id number]-fish oil [Fish Oil] 1 cap PO BID 11/27/20 [History Last Taken 01/16/21] pregabalin 200 mg PO TID 11/27/20 [History Last Taken 01/16/21] sertraline 50 mg PO DAILY 11/27/20 [History Last Taken 01/15/21] tamsulosin 0.4 mg PO QHS 11/27/20 [History Last Taken 01/14/21] pantoprazole [Protonix] 40 mg PO BID #60 tab 01/15/21 [Rx Last Taken 01/16/21] amlodipine 10 mg PO DAILY 01/16/21 [History Last Taken 01/16/21] bupropion HCl 150 mg PO BID 01/16/21 [History Last Taken 01/16/21] metformin 500 mg PO BID 01/16/21 [History Last Taken 01/16/21] sucralfate 1 g PO ACHS 01/16/21 [History Last Taken 01/16/21] Tresiba FlexTouch U-100 40 unit SUBCUT QHS #0 ml 01/23/21 [Rx Last Taken Unknown] lactulose 20 g PO DAILY 30 Days #900 ml 01/23/21 [Rx Last Taken Unknown] quetiapine 25 mg PO BID #60 tab 01/23/21 [Rx Last Taken Unknown] amitriptyline 50 mg PO QHS 10/23/21 [History Last Taken Unknown] dupilumab [Dupixent Pen] 300 mg SUBCUT QWEEK 10/23/21 [History Last Taken Unknown] leflunomide [Arava] 10 mg PO DAILY 10/23/21 [History Last Taken Unknown] lisinopril 10 mg PO DAILY 10/23/21 [History Last Taken Unknown] Allergy/AdvReac Type Severity Reaction Status Date / Time No Known Allergies Allergy Verified 01/16/21 12:27 Family History (Updated 01/11/21 @ 01:[address] Kanwal Russo MD) Mother Diabetes Father Diabetes Hypertension Social History housing: assisted living facility Smoking Status: Light Smoker (<10/day) alcohol intake: never substance use type: does not use ROS Constitutional Constitutional: Denies fatigue, fever(s), frequent falls, headache(s), increased appetite, lethargy or malaise Eyes Eyes: Denies diplopia, discharge from eye(s), discongugate gaze, exophthalmos, eye pain, floaters, foreign body or halo effect ENT HEENT: Denies dysphagia, foreign body in nose, headache(s), mucositis, nasal congestion, nasal discharge or nasal trauma Cardiovascular Cardiovascular: Denies chest pain with activity, cyanosis, dyspnea at rest, dy spnea on exertion, fatigue, flutter in chest or hypertension Respiratory/Chest Respiratory/Chest: Denies dusky skin, dyspnea, dyspnea on exertion, excessive phlegm production, hemoptysis, hoarseness, inability to speak or nail bed cyanosis Gastrointestinal Gastrointestinal: Denies chewing difficulty, coffee ground emesis, constipation, cramping, diarrhea, dry heaves or dyspepsia Genitourinary Genitourinary: Denies abdominal discomfort, anuria, burning urination, dysuria or flank pain Musculoskeletal Musculoskeletal: Denies arthralgias, atrophy, back pain or deformity Integumentary Integumentary: Denies erythema, furuncle, hirsutism, jaundice or lesions Neurologic Neurologic: Denies abnormal speech, behavior changes, burning sensations, convulsions, disequilibrium or dizziness Psychiatric Psychiatric: Denies abnormal sleep pattern, anhedonia, anxiety, auditory hallucinations, behavioral changes, irritability or memory loss Endocrine Endocrinology: Denies cold intolerance, excessive sweating, fatigue, flushing or heat intolerance Allergic/Immunologic Allergic/Immunologic: Denies lip swelling, tongue swelling, hives, eczemia, wh eezing or asthma Vital Signs Vital Signs Vital Signs: 10/23/21 10:30 Temperature 97.3 F L Temperature Source Temporal Pulse Rate 77 Respiratory Rate 18 Blood Pressure 107/63 Blood Pressure Mean 77 Blood Pressure Source Monitor Blood Pressure Position Sitting Blood Pressure Location Left Arm Weight Weight: 275 lb Body Mass Index (BMI) 40.6 Physical Exam Const alert, oriented x3 and no apparent distress General Appearance: cooperative and comfortable Orientation / Consciousness: awake HEENT normocephalic and head/scalp atraumatic Eyes EOMs intact bilaterally General Eye: normal appearance of both eyes Neck full ROM General: normal visual inspection Resp normal respiratory effort Effort and Inspection: able to speak in complete sentences Skin Wounds: wounds noted Neuro oriented x3, CN's II-XII intact bilaterally and moves all extremities Psych mental status grossly normal Appearance: grossly normal Debridement Note Debridement Note Wound debrided: Left heel (lateral) Type of Debridement: Excisional debridement Anesthesia Used: 4% Lidocaine Solution Depth: Down to and including healthy tissue and in the subcutaneous layer Percentage of wound debrided: 100 Instrument Used: 5mm curette Tissue Removed: Slough and devitalized tissue Severity: Fat Layer Exposed Amount of bleeding with debridement: Mild Bleeding Controlled with: Pressure Patient tolerated procedure: Patient tolerated procedure well Post-Debridement Measurements and Additional Note: Post-Debridement Measurements/Treatment WC - Nurse 1 - General Ulcer Assessment Start: 10/23/21 10:25 Freq: Status: Active Protocol: [email or web address] Activity Type Activity Date Activity User E-Sign Co-Sign Detail Recorded Client Recorded Date Recorded By Document 10/23/21 10:30 RB [id number] 10/23/21 10:43 RB 10/23/21 10:30 WC - Today's Visit Information Type of service Initial Visit Arrival Mode Wheelchair Transfer Assistance Manual Patient Identification Verified (Name & Yes ) Patient Requires Transmission-Based No Precautions Finger Stick Blood Sugar(mg/dl) (if 169 indicated): Blood Sugar Stated by Patient Height and Weight Height 5 ft 9 in Weight 275 lb Weight in Pounds 275.0 lbs Body Mass Index (BMI) 40.6 BMI Classification Obese BSA - Rj 2.37 Vital Signs Temperature (97.8 F-99.1 F) 97.3 F L Temperature Source Temporal Pulse Rate (60-100) 77 Pulse Location Monitor Respiratory Rate (12-18) 18 Respiratory rate source Observation Blood Pressure (90/60-120/80) 107/63 Blood Pressure Mean 77 Source Monitor Position Sitting Blood Pressure Location Left Arm History Since Last Visit- (Skip if this is Patient's initial visit) Have you changed medications since your No last visit? Any new allergies or adverse reactions No Had a fall/change in ADL's that may No increase risk of falls Signs or symptoms of abuse and/or No neglect since last visit Have you been in the hospital since your No last visit? Has dressing in place as prescribed Yes Has compression in place as prescribed No Has offloadiing in place as prescribed No Experienced any changes in pain level or No management Pain Scale: 0-10 Numeric Is Patient Pain Free? Yes Lower Extremity Assessment/ Foot Assessment/ Toe Nail Assessment Right -Posterior Tibial Palpable Yes -Dorsalis Pedis Palpable Yes -Extremity Color Normal -Hair Growth on Legs Yes -Hair Growth on Toes No -Temperature of Extremity Warm -Capillary Refill Less than 3 Seconds -Dependent Rubor No -Blanched when Elevated No -Lipodermatosclerosis No -Other Deformity No -Prior Foot Ulcer No -Charcot Joint No -Prior Amputation No -Thick No -Discolored No -Deformed No -Improper Length & Hygeine Yes Left -Posterior Tibial Palpable Yes -Dorsalis Pedis Palpable Yes -Extremity Color Normal -Hair Growth on Legs Yes -Hair Growth on Toes No -Temperature of Extremity Warm -Capillary Refill Less than 3 Seconds -Dependent Rubor No -Blanched when Elevated No -Lipodermatosclerosis No -Other Deformity No -Prior Foot Ulcer No -Charcot Joint No -Prior Amputation No -Thick No -Discolored No -Deformed No -Improper Length & Hygeine Yes Neuropathy Assessment Feet - Top Side and Bottom <Entered> (a) Communication Assessment Preferred language Polish 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 No Able to Read Yes Able to Write Yes Communication Tools None Caregiver Communication Skills No Impairment Impairment Right Hearing Abillity Normal Left Hearing Abillity Normal Visual Assistive Devices Glasses Teaching Assessment Preferences Demonstration Barriers to Learning None Readiness To Learn Good Willingness to Engage in Self Management Med Activies Readiness to Engage in Self Management Med Activities Anxiety Level Calm Cooperation Cooperative Perception Coherent Interest in Health Problem Asks Questions Education Importance Acknowledges Need Does Patient Smoke tobacco or other Yes substances Smoking Status Light Smoker (< 10/day) Is Patient Diabetic Yes Functional Assessment Recent Decline in Ability to Perform Ambulation, Bathing,Lower Body Dressing Assistive Device With Patient Yes 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 Dairy Farm Worker to contact place of bahai No Teaching: Wound Center *Welcome to the Wound Center -Person Taught Patient -Teaching Method Discussion -Response to teaching Verbalize understanding (a) 1 - + throughout WC - Nurse 1 - General Ulcer Measurement Start: 10/23/21 10:25 Freq: Status: Active Protocol: Activity Type Activity Date Activity User E-Sign Co-Sign Detail Recorded Client Recorded Date Recorded By Document 10/23/21 10:30 RB [id number] 10/23/21 10:43 RB 10/23/21 10:30 Wound Center Nurse 1 5. L lateral heel -Combined with other wound No -Current Size (cm) - Length 1 -Current Size (cm) - Width 0.8 -Current Size (cm) - Depth 0.3 -Total Square Cm 0.8 -Photo Taken Yes -Tunneling No -Undermining/Tunneling No -Circular Undermining No -Exudate Amt Medium -Exudate Type Serosanguineous -Wound Margin Distinct, Outline Attached -Granulation Amt Medium (34-66%) -Granulation Quality [place] -Slough/Fibrin Yes -Necrosis Amt Small (1-33%) -Necrotic Tissue Type Adherent Slough -Structure Exposed N/A -Texture (Camila-wound Skin Appearance) Assessed,Callus -Moisture (Camila-wound Skin Appearance) Assessed -Color (Camila-wound Skin Appearance) Assessed -Temperature (Camila-wound Skin No Abnormality Appearance) (Pt Warm) -Tenderness on Palpation (Camila-wound No Skin Appearance) -Ulcer Cleansing Rinsed/ Irrigated with Saline -Foul Odor after Cleansing No -Anesthetic Used 5% Lidocaine Gel Lower Limb Edema Present Yes Right Calf (cm) 45 Right Ankle (cm) 28 Left Calf (cm) 45 Left Ankle (cm) 28.4 WC - Nurse 2 - General Ulcer CM Notes Start: 10/23/21 10:25 Freq: Status: Active Protocol: Activity Type Activity Date Activity User E-Sign Co-Sign Detail Recorded Client Recorded Date Recorded By Document 10/23/21 11:11 MW [id number] 10/23/21 11:18 MW 10/23/21 11:11 Wound Center Nurse 2 5. L lateral heel -Time 11:12 -Correct Patient Yes -Correct Side, Site, Position Yes -Correct Procedure Yes -Procedure Performed Yes -Type of Procedure Debridement -Clinical Debridement Subcutaneous -Tissue Removed Subcutaneous -Post Debridement (cm) - Length 1.0 -Post Debridement (cm) - Width 0.9 -Post Debridement (cm) - Depth 0.2 -Total Square (Post) (cm) 0.90 -Area of Debridement (cm) - Length 1.0 -Area of Debridement (cm) - Width 0.9 -Total Square (Area) (cm) 0.90 -Tunneling No -Undermining/Tunneling No -Circular Undermining No -Wound/Ulcer Outcome Not Healed -Ulcer Cleansing Rinsed/ Irrigated with Saline -Foul Odor after Cleansing No -Bioengineered Tissue No -Bleeding Controlled with Pressure -Treatment Response Procedure Tolerated Well -Debridement - Subq, 1st 20sq cm Yes Pain Scale: 0-10 Numeric Is Patient Pain Free? Yes - Nurse 3 - General Ulcer D/C NN Start: 10/23/21 10:25 Freq: Status: Active Protocol: Activity Type Activity Date Activity User E-Sign Co-Sign Detail Recorded Client Recorded Date Recorded By Document 10/23/21 11:29 [facility] [id number] 10/23/21 11:30 [facility] 10/23/21 11:29 Wound Care Nurse 3 5. L lateral heel -Ulcer Cleansing Rinsed/ Irrigated with Saline -Foul Odor after Cleansing No -Primary Dressing Applied Mepilex Border, NonAdherent Contact Layer, Promogran -Mepilex Border 1 -Promogran 1 Treatment Response Procedure Tolerated Well Pain Scale: 0-10 Numeric Is Patient Pain Free? Yes WC - Visit Discharge Discharge Condition Stable Ambulatory Status Wheelchair Other [facility] Charges/Coding Visit Charges Office Visits / Consults: 65909 OV L3 Est Multi Select Codes Integumentary Integumentary CPT Codes: 89786 Ana María bone 20 sq cm/< Assessment/Plan Assessment/Plan (1) Diabetic ulcer of left heel: CODE(S): E11.621 - Type 2 diabetes mellitus with foot ulcer; L97.429 - Non-pressure chronic ulcer of left heel and midfoot with unspecified severity QUALIFIERS: Diabetes mellitus type: type 2 Non-pressure ulcer stage: with fat layer exposed Qualified Code(s): E11.621 - Type 2 diabetes mellitus with foot ulcer; L97.422 - Non-pressure chronic ulcer of left heel and midfoot with fat layer exposed (2) Type 2 diabetes mellitus: CODE(S): E11.9 - Type 2 diabetes mellitus without complications QUALIFIERS: 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 He states that his prior ulcer healed after a while. Current ulcer started a month ago, no known precipitating factor. History of diabetes mellitus type 2 and blood sugars have not been controlled lately. He does not recall his last A1C. Debridement done as documented above, procedure was well-tolerated. No concerns for infection at this time, no culture taken. Promogran daily with Adaptic over top. Foam dressing for barrier. Change daily to twice daily depending on soilage or drainage. Labs ordered, he states that he can get this done at his assisted living facility. Offloading strongly recommended. Optimal diabetes control and increased protein intake, he voiced understanding. His questions were answered and was advised to call with any further questions or concerns. He does not anticipate transportation being an issue going forward, we will see him in a week. This note was generated with Grid20/20 dictation software. It may contain incorrect words, spelling, and punctuation that were not noted in checking the note before signing.
[2021-10-30 07:59] VITALS: BP 125/71; PULSE 83; TEMP 35.3; BMI 40.6
--- NOTE | 2021-10-30 08:54 | PN.PCM_ITS ---
History of Present Illness Date of Service: 10/30/21 Chief Complaint: Left Heel Ulcer History of Wound: Mr Ordoñez is a 56 yo who was last seen here In May for a left heel ulcer. He presents with a new left heel ulcer which started a month ago. Denies any known precipitating factor. He has been trying to manage it at his assisted living facility however measures so far have not been helpful. History of diabetes mellitus type 2 which had not been well controlled in the past. He denies chills, fever or otherwise feeling of unwell. Progress of Wound: No improvement noted. Has been applying Promogran and Adaptic daily. Subjective Subjective No new concerns at this time. Objective Data Objective Data Vital Signs: Vital Signs Temp Pulse Resp BP 95.6 F L 83 18 125/71 H 10/30/21 07:59 10/30/21 07:59 10/23/21 10:30 10/30/21 07:59 Weight: 275 lb Body Mass Index (BMI) 40.6 Charges/Coding Procedures Integumentary 111xxx-113xx: [id number] Ana María subq tissue 20 sq cm/< Physical Exam Const alert, oriented x3 and no apparent distress General Appearance: cooperative and comfortable Orientation / Consciousness: awake HEENT normocephalic and head/scalp atraumatic Eyes EOMs intact bilaterally General Eye: normal appearance of both eyes Neck full ROM General: normal visual inspection Resp normal respiratory effort Effort and Inspection: able to speak in complete sentences Skin Wounds: wounds noted Neuro oriented x3, CN's II-XII intact bilaterally and moves all extremities Psych mental status grossly normal Appearance: grossly normal Debridement Note Debridement Note Wound debrided: Left heel (superior) Type of Debridement: Excisional debridement Anesthesia Used: 4% Lidocaine Solution Depth: Down to and including healthy tissue and in the subcutaneous layer Percentage of wound debrided: 100 Instrument Used: 5mm curette Tissue Removed: Slough and devitalized tissue Severity: Fat Layer Exposed Amount of bleeding with debridement: Mild Bleeding Controlled with: Pressure Patient tolerated procedure: Patient tolerated procedure well Post-Debridement Measurements and Additional Note: Post-Debridement Measurements/Treatment [id number] - Nurse 1 - General Ulcer Assessment Start: 10/23/21 10:25 Freq: Status: Active Protocol: SANDRA Activity Type Activity Date Activity User E-sign Co-sign Detail Recorded Client Recorded Date Recorded By Document 10/23/21 10:30 RB [id number] 10/23/21 10:43 RB Document 10/30/21 07:59 BMF [id number] 10/30/21 08:02 BMF 10/23/21 10/30/21 10:30 07:59 WC - Today's Visit Information Type of service Initial Visit Follow-up Visit (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/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 [employer] ) Arrival Mode Wheelchair Other Arrival Mode (Other) motorized chair Transfer Assistance Manual None Patient Identification Verified (Name & Yes Yes ) Patient Requires Transmission-Based No No Precautions Safety Precautions NA Finger Stick Blood Sugar(mg/dl) (if 169 indicated): Blood Sugar Stated by Patient Height and Weight Height 5 ft 9 in Weight 275 lb Weight in Pounds 275.0 lbs Body Mass Index (BMI) 40.6 40.6 BMI Classification Obese Obese BSA - Rj 2.37 Vital Signs Temperature (97.8 F-99.1 F) 97.3 F L 95.6 F L Temperature Source Temporal Temporal Pulse Rate (60-100) 77 83 Pulse Location Monitor Monitor Respiratory Rate (12-18) 18 Respiratory rate source Observation Blood Pressure (90/60-120/80) 107/63 125/71 H Blood Pressure Mean (mm Hg) 77 89 Source Monitor Monitor Position Sitting Blood Pressure Location Left Arm History Since Last Visit- (Skip if this is Patient's initial visit) Have you changed medications since your No No last visit? Any new allergies or adverse reactions No No Had a fall/change in ADL's that may No No increase risk of falls Signs or symptoms of abuse and/or No No neglect since last visit Have you been in the hospital since your No No last visit? Has dressing in place as prescribed Yes Yes Has compression in place as prescribed No No Has offloadiing in place as prescribed No No Experienced any changes in pain level or No No management Left Footwear Regular Shoe Right Footwear Regular Shoe Pain Scale: 0-10 Numeric Is Patient Pain Free? Yes Yes Lower Extremity Assessment/ Foot Assessment/ Toe Nail Assessment Right -Posterior Tibial Palpable Yes -Dorsalis Pedis Palpable Yes -Extremity Color Normal -Hair Growth on Legs Yes -Hair Growth on Toes No -Temperature of Extremity Warm -Capillary Refill Less than 3 Seconds -Dependent Rubor No -Blanched when Elevated No -Lipodermatosclerosis No -Other Deformity No -Prior Foot Ulcer No -Charcot Joint No -Prior Amputation No -Thick No -Discolored No -Deformed No -Improper Length & Hygeine Yes Left -Posterior Tibial Palpable Yes -Dorsalis Pedis Palpable Yes -Extremity Color Normal -Hair Growth on Legs Yes -Hair Growth on Toes No -Temperature of Extremity Warm -Capillary Refill Less than 3 Seconds -Dependent Rubor No -Blanched when Elevated No -Lipodermatosclerosis No -Other Deformity No -Prior Foot Ulcer No -Charcot Joint No -Prior Amputation No -Thick No -Discolored No -Deformed No -Improper Length & Hygeine Yes Neuropathy Assessment Feet - Top Side and Bottom <Entered> (a) Communication Assessment Preferred language Vietnamese International Travel Consultant Required No Able to Read Yes Able to Write Yes Communication Tools None Caregiver Communication Skills No Impairment Impairment Right Hearing Abillity Normal Left Hearing Abillity Normal Visual Assistive Devices Glasses Teaching Assessment Preferences Demonstration Barriers to Learning None Readiness To Learn Good Willingness to Engage in Self Management Med Activies Readiness to Engage in Self Management Med Activities Anxiety Level Calm Cooperation Cooperative Perception Coherent Interest in Health Problem Asks Questions Education Importance Acknowledges Need Does Patient Smoke tobacco or other Yes substances Smoking Status Light Smoker (< 10/day) Is Patient Diabetic Yes Functional Assessment Recent Decline in Ability to Perform Ambulation, Bathing,Lower Body Dressing Assistive Device With Patient Yes Culture/Jain/Crate Liner Cultural/Jain Needs that may affect No Treatment Plan Would you allow our hospital activity manager to No meet you for the purpose of spiritual/ emotional support? Crate Liner to contact place of cheondoism No Teaching: Wound Center *Welcome to the Wound Center -Person Taught Patient -Teaching Method Discussion -Response to teaching Verbalize understanding (a) 1 - + throughout WC - Nurse 1 - General Ulcer Measurement Start: 10/23/21 10:25 Freq: Status: Active Protocol: Activity Type Activity Date Activity User E-sign Co-sign Detail Recorded Client Recorded Date Recorded By Document 10/23/21 10:30 RB [id number] 10/23/21 10:43 RB Document 10/30/21 07:59 [facility] [id number] 10/30/21 08:02 BMF 10/23/21 10/30/21 10:30 07:59 Wound Center Nurse 1 5. L lateral heel -Combined with other wound No No -Current Size (cm) - Length 1 0.9 -Current Size (cm) - Width 0.8 0.8 -Current Size (cm) - Depth 0.3 0.3 -Total Square Cm 0.8 0.72 -Date of Last Picture (Recall this 10/30/21 field) -Photo Taken Yes Yes -Epithelialization None Present -Tunneling No No -Undermining/Tunneling No No -Circular Undermining No No -Change in Wound Grade/Stage No -Exudate Amt Medium Medium -Exudate Type Serosanguineous Serosanguineous -Wound Margin Distinct, Distinct, Outline Outline Attached Attached -Granulation Amt Medium (34-66%) Large (67-100%) -Granulation Quality [place] N/A,Red -Slough/Fibrin Yes Yes -Necrosis Amt Small (1-33%) Small (1-33%) -Necrotic Tissue Type Adherent Slough Adherent Slough -Structure Exposed N/A N/A -Texture (Camila-wound Skin Appearance) Assessed,Callus No Abnormality, Assessed -Moisture (Camila-wound Skin Appearance) Assessed Assessed, Maceration -Color (Camila-wound Skin Appearance) Assessed No Abnormality, Assessed -Temperature (Camila-wound Skin No Abnormality No Abnormality Appearance) (Pt Warm) (Pt Warm) -Tenderness on Palpation (Camila-wound No No Skin Appearance) -Ulcer Cleansing Rinsed/ Rinsed/ Irrigated with Irrigated with Saline Saline -Foul Odor after Cleansing No No -Anesthetic Used 5% Lidocaine 4% Lidocaine Gel Solution Lower Limb Edema Present Yes Right Calf (cm) 45 Right Ankle (cm) 28 Left Calf (cm) 45 Left Ankle (cm) 28.4 WC - Nurse 2 - General Ulcer CM Notes Start: 10/23/21 10:25 Freq: Status: Active Protocol: Activity Type Activity Date Activity User E-sign Co-sign Detail Recorded Client Recorded Date Recorded By Document 10/23/21 11:11 MW [id number] 10/23/21 11:18 MW Document 10/30/21 08:20 MW [id number] 10/30/21 08:25 MW 10/23/21 10/30/21 11:11 08:20 Wound Center Nurse 2 5. L lateral heel -Time 11:12 08:20 -Correct Patient Yes Yes -Correct Side, Site, Position Yes Yes -Correct Procedure Yes Yes -Procedure Performed Yes Yes -Type of Procedure Debridement Debridement -Clinical Debridement Subcutaneous Subcutaneous -Tissue Removed Subcutaneous Subcutaneous -Post Debridement (cm) - Length 1.0 1.3 -Post Debridement (cm) - Width 0.9 1.0 -Post Debridement (cm) - Depth 0.2 0.2 -Total Square (Post) (cm) 0.90 1.30 -Area of Debridement (cm) - Length 1.0 1.3 -Area of Debridement (cm) - Width 0.9 1.0 -Total Square (Area) (cm) 0.90 1.30 -Tunneling No No -Undermining/Tunneling No No -Circular Undermining No No -Wound/Ulcer Outcome Not Healed Not Healed -Ulcer Cleansing Rinsed/ Rinsed/ Irrigated with Irrigated with Saline Saline -Foul Odor after Cleansing No No -Bioengineered Tissue No No -Bleeding Controlled with Pressure Pressure -Treatment Response Procedure Procedure Tolerated Well Tolerated Well -Offloading No -Debridement - Subq, 1st 20sq cm Yes Yes Pain Scale: 0-10 Numeric Is Patient Pain Free? Yes Yes - Nurse 3 - General Ulcer D/C NN Start: 10/23/21 10:25 Freq: Status: Active Protocol: Activity Type Activity Date Activity User E-sign Co-sign Detail Recorded Client Recorded Date Recorded By Document 10/23/21 11:29 [facility] [id number] 10/23/21 11:30 [facility] Document 10/30/21 08:29 [facility] [id number] 10/30/21 08:30 [facility] 10/23/21 10/30/21 11:29 08:29 Wound Care Nurse 3 5. L lateral heel -Ulcer Cleansing Rinsed/ Rinsed/ Irrigated with Irrigated with Saline Saline -Foul Odor after Cleansing No No -Primary Dressing Applied Mepilex Border, Mepilex Border, NonAdherent NonAdherent Contact Layer, Contact Layer, Promogran Promogran -Other Dressing drsg per ak ambulatory technologist -Mepilex Border 1 1 -Promogran 1 1 Left -Compression Wrap Frank Wrap Treatment Response Procedure Procedure Tolerated Well Tolerated Well Pain Scale: 0-10 Numeric Is Patient Pain Free? Yes Yes - Visit Discharge Discharge Condition Stable Stable Ambulatory Status Wheelchair Wheelchair Transportation Private Auto Other [facility] Assessment/Plan Assessment/Plan (1) Diabetic ulcer of left heel: CODE(S): E11.621 - Type 2 diabetes mellitus with foot ulcer; L97.429 - Non-pressure chronic ulcer of left heel and midfoot with unspecified severity QUALIFIERS: Diabetes mellitus type: type 2 Non-pressure ulcer stage: with fat layer exposed Qualified Code(s): E11.621 - Type 2 diabetes mellitus with foot ulcer; L97.422 - Non-pressure chronic ulcer of left heel and midfoot with fat layer exposed (2) Type 2 diabetes mellitus: CODE(S): E11.9 - Type 2 diabetes mellitus without complications QUALIFIERS: Diabetes mellitus longterm insulin use: with emt intermediate use Diabetes mellitus complication status: with skin complications Diabetes mellitus complication detail: with foot ulcer Qualified Code(s): E11.621 - Type 2 diabetes mellitus with foot ulcer; L97.509 - Non-pressure chronic ulcer of other part of unspecified foot with unspecified severity; Z79.4 - skilled nursing (current) use of insulin (3) Tobacco use: CODE(S): Z72.0 - Tobacco use PLAN: Plan No significant improvement, some increase postdebridement. Debridement done as documented above, procedure was well-tolerated. Continue Promogran daily with Adaptic over top. Foam dressing for barrier. Change daily to twice daily depending on soilage or drainage. Labs ordered at his last visit however, not received yet. Offloading strongly recommended. Optimal diabetes control and increased protein intake, he voiced understanding. He had done really well in the past on epi fix. This is a different also from his previous one. Application for epi fix started. His questions were answered and was advised to call with any further questions or concerns. He does not anticipate transportation being an issue going forward, we will see him in a week. This note was generated with [employer] dictation software. It may contain incorrect words, spelling, and punctuation that were not noted in checking the note before signing.
[2021-11-06 09:38] VITALS: BP 97/60; PULSE 76; RESP 20; TEMP 36.3; BMI 40.6
--- NOTE | 2021-11-06 10:21 | PCM.WC.PN ---
History of Present Illness Date of Service: 11/06/21 Chief Complaint: Left Heel Ulcer History of Wound: Mr Ordoñez is a 56 yo who was last seen here In May for a left heel ulcer. He presents with a new left heel ulcer which started a month ago. Denies any known precipitating factor. He has been trying to manage it at his assisted living facility however measures so far have not been helpful. History of diabetes mellitus type 2 which had not been well controlled in the past. He denies chills, fever or otherwise feeling of unwell. Progress of Wound: No improvement noted. Now approved for Epifix Subjective Subjective No new concerns at this time. Objective Data Objective Data Vital Signs: Vital Signs Temp Pulse Resp BP 97.4 F L 76 20 H 97/60 11/06/21 09:38 11/06/21 09:38 11/06/21 09:38 11/06/21 09:38 Weight: 275 lb Body Mass Index (BMI) 40.6 Charges/Coding Procedures Integumentary 150xxx-152xx: 14108 Skin sub graft trnk/arm/leg Physical Exam HEENT normocephalic and head/scalp atraumatic Eyes EOMs intact bilaterally General Eye: normal appearance of both eyes Neck full ROM General: normal visual inspection Resp normal respiratory effort Effort and Inspection: able to speak in complete sentences Skin Wounds: wounds noted Neuro oriented x3, CN's II-XII intact bilaterally and moves all extremities Psych mental status grossly normal Appearance: grossly normal Debridement Note Debridement Note Wound debrided: Left heel Type of Debridement: Excisional debridement Anesthesia Used: 4% Lidocaine Solution Depth: Down to and including healthy tissue and in the subcutaneous layer Percentage of wound debrided: 100 Instrument Used: 5mm curette Tissue Removed: Slough and devitalized tissue Severity: Fat Layer Exposed Amount of bleeding with debridement: Mild Bleeding Controlled with: Pressure Patient tolerated procedure: Patient tolerated procedure well Post-Debridement Measurements and Additional Note: Post-Debridement Measurements/Treatment WC - Nurse 1 - General Ulcer Assessment Start: 10/23/21 10:25 Freq: Status: Active Protocol: SANDRA Activity Type Activity Date Activity User E-sign Co-sign Detail Recorded Client Recorded Date Recorded By Document 10/23/21 10:30 RB [id number] 10/23/21 10:43 RB Document 10/30/21 07:59 BMF [id number] 10/30/21 08:02 BM Document 11/06/21 09:38 DL [id number] 11/06/21 09:45 DL 10/23/21 10/30/21 11/06/21 10:30 07:59 09:38 WC - Today's Visit Information Type of service Initial Visit Follow-up Visit Follow-up Visit (Physician/[employer] (Physician/[employer] ) ) Arrival Mode Wheelchair Other Ambulatory Arrival Mode (Other) motorized chair Transfer Assistance Manual None None Patient Identification Verified (Name & Yes Yes Yes ) Patient Requires Transmission-Based No No No Precautions Safety Precautions NA Finger Stick Blood Sugar(mg/dl) (if 169 indicated): Blood Sugar Stated by Patient Height and Weight Height 5 ft 9 in Weight 275 lb Weight in Pounds 275.0 lbs Body Mass Index (BMI) 40.6 40.6 40.6 BMI Classification Obese Obese Obese BSA - Rj 2.37 Vital Signs Temperature (97.8 F-99.1 F) 97.3 F L 95.6 F L 97.4 F L Temperature Source Temporal Temporal Temporal Pulse Rate (60-100) 77 83 76 Pulse Location Monitor Monitor Monitor Respiratory Rate (12-18) 18 20 H Respiratory rate source Observation Observation Blood Pressure (90/60-120/80) 107/63 125/71 H 97/60 Blood Pressure Mean (mm Hg) 77 89 72 Source Monitor Monitor Monitor Position Sitting Blood Pressure Location Left Arm History Since Last Visit- (Skip if this is Patient's initial visit) Have you changed medications since your No No No last visit? Any new allergies or adverse reactions No No No Had a fall/change in ADL's that may No No No increase risk of falls Signs or symptoms of abuse and/or No No No neglect since last visit Have you been in the hospital since your No No Yes last visit? Has dressing in place as prescribed Yes Yes No Has compression in place as prescribed No No Yes Has offloadiing in place as prescribed No No Yes Experienced any changes in pain level or No No No management Left Footwear Regular Shoe Surgical Shoe with pressure relief insole Right Footwear Regular Shoe Slipper Pain Scale: 0-10 Numeric Is Patient Pain Free? Yes Yes Yes Lower Extremity Assessment/ Foot Assessment/ Toe Nail Assessment Right -Posterior Tibial Palpable Yes -Dorsalis Pedis Palpable Yes -Extremity Color Normal -Hair Growth on Legs Yes -Hair Growth on Toes No -Temperature of Extremity Warm -Capillary Refill Less than 3 Seconds -Dependent Rubor No -Blanched when Elevated No -Lipodermatosclerosis No -Other Deformity No -Prior Foot Ulcer No -Charcot Joint No -Prior Amputation No -Thick No -Discolored No -Deformed No -Improper Length & Hygeine Yes Left -Posterior Tibial Palpable Yes -Dorsalis Pedis Palpable Yes -Extremity Color Normal -Hair Growth on Legs Yes -Hair Growth on Toes No -Temperature of Extremity Warm -Capillary Refill Less than 3 Seconds -Dependent Rubor No -Blanched when Elevated No -Lipodermatosclerosis No -Other Deformity No -Prior Foot Ulcer No -Charcot Joint No -Prior Amputation No -Thick No -Discolored No -Deformed No -Improper Length & Hygeine Yes Neuropathy Assessment Feet - Top Side and Bottom <Entered> (a) Communication Assessment Preferred language [employer] Coord[employer] Required No Able to Read Yes Able to Write Yes Communication Tools None Caregiver Communication Skills No Impairment Impairment Right Hearing Abillity Normal Left Hearing Abillity Normal Visual Assistive Devices Glasses Teaching Assessment Preferences Demonstration Barriers to Learning None Readiness To Learn Good Willingness to Engage in Self Management Med Activies Readiness to Engage in Self Management Med Activities Anxiety Level Calm Cooperation Cooperative Perception Coherent Interest in Health Problem Asks Questions Education Importance Acknowledges Need Does Patient Smoke tobacco or other Yes substances Smoking Status Light Smoker (< 10/day) Is Patient Diabetic Yes Functional Assessment Recent Decline in Ability to Perform Ambulation, Bathing,Lower Body Dressing Assistive Device With Patient Yes 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 Haulage Engine Operator to contact place of religious No Teaching: Wound Center *Welcome to the Wound Center -Person Taught Patient -Teaching Method Discussion -Response to teaching Verbalize understanding (a) 1 - + throughout WC - Nurse 1 - General Ulcer Measurement Start: 10/23/21 10:25 Freq: Status: Active Protocol: Activity Type Activity Date Activity User E-sign Co-sign Detail Recorded Client Recorded Date Recorded By Document 10/23/21 10:30 RB [id number] 10/23/21 10:43 RB Document 10/30/21 07:59 BMF [id number] 10/30/21 08:02 BMF Document 11/06/21 09:38 DL [id number] 11/06/21 09:45 DL 10/23/21 10/30/21 11/06/21 10:30 07:59 09:38 Wound Center Nurse 1 5. L lateral heel -Combined with other wound No No -Current Size (cm) - Length 1 0.9 0.8 -Current Size (cm) - Width 0.8 0.8 0.9 -Current Size (cm) - Depth 0.3 0.3 0.2 -Total Square Cm 0.8 0.72 0.72 -Date of Last Picture (Recall this 10/30/21 field) -Photo Taken Yes Yes Yes -Epithelialization None Present -Tunneling No No -Undermining/Tunneling No No -Circular Undermining No No -Change in Wound Grade/Stage No -Exudate Amt Medium Medium Small -Exudate Type Serosanguineous Serosanguineous -Wound Margin Distinct, Distinct, Distinct, Outline Outline Outline Attached Attached Attached -Granulation Amt Medium (34-66%) Large (67-100%) Medium (34-66%) -Granulation Quality [place] N/A,[place] -Slough/Fibrin Yes Yes -Necrosis Amt Small (1-33%) Small (1-33%) Medium (34-66%) -Necrotic Tissue Type Adherent Slough Adherent Slough Adherent Slough -Structure Exposed N/A N/A N/A -Texture (Camila-wound Skin Appearance) Assessed,Callus No Abnormality, Scarring Assessed -Moisture (Camila-wound Skin Appearance) Assessed Assessed, Dry/Scaly Maceration -Color (Camila-wound Skin Appearance) Assessed No Abnormality, No Abnormality Assessed -Temperature (Camila-wound Skin No Abnormality No Abnormality No Abnormality Appearance) (Pt Warm) (Pt Warm) (Pt Warm) -Tenderness on Palpation (Camila-wound No No No Skin Appearance) -Ulcer Cleansing Rinsed/ Rinsed/ Wound Cleanser Irrigated with Irrigated with Saline Saline -Foul Odor after Cleansing No No No -Anesthetic Used 5% Lidocaine 4% Lidocaine 5% Lidocaine Gel Solution Gel Lower Limb Edema Present Yes Right Calf (cm) 45 Right Ankle (cm) 28 Left Calf (cm) 45 Left Ankle (cm) 28.4 WC - Nurse 2 - General Ulcer CM Notes Start: 10/23/21 10:25 Freq: Status: Active Protocol: Activity Type Activity Date Activity User E-sign Co-sign Detail Recorded Client Recorded Date Recorded By Document 10/23/21 11:11 MW [id number] 10/23/21 11:18 MW Document 10/30/21 08:20 MW [id number] 10/30/21 08:25 MW Document 11/06/21 09:53 MW [id number] 11/06/21 10:01 MW 10/23/21 10/30/21 11/06/21 11:11 08:20 09:53 Wound Center Nurse 2 5. L lateral heel -Time 11:12 08:20 09:54 -Correct Patient Yes Yes Yes -Correct Side, Site, Position Yes Yes Yes -Correct Procedure Yes Yes Yes -Procedure Performed Yes Yes Yes -Type of Procedure Debridement Debridement Debridement -Clinical Debridement Subcutaneous Subcutaneous Subcutaneous -Tissue Removed Subcutaneous Subcutaneous Subcutaneous -Post Debridement (cm) - Length 1.0 1.3 1.2 -Post Debridement (cm) - Width 0.9 1.0 1.3 -Post Debridement (cm) - Depth 0.2 0.2 0.2 -Total Square (Post) (cm) 0.90 1.30 1.56 -Area of Debridement (cm) - Length 1.0 1.3 1.2 -Area of Debridement (cm) - Width 0.9 1.0 1.3 -Total Square (Area) (cm) 0.90 1.30 1.56 -Tunneling No No No -Undermining/Tunneling No No No -Circular Undermining No No No -Wound/Ulcer Outcome Not Healed Not Healed Not Healed -Ulcer Cleansing Rinsed/ Rinsed/ Rinsed/ Irrigated with Irrigated with Irrigated with Saline Saline Saline -Foul Odor after Cleansing No No No -Bioengineered Tissue No No Yes -Type of Bioengineered Tissue Epifix 18mm Disc -Expiration Date 07/15/26 -Product Lot Number [id number] -Percent Used 100 -Lot number of Saline Used [id number] -Bleeding Controlled with Pressure Pressure Pressure -Treatment Response Procedure Procedure Procedure Tolerated Well Tolerated Well Tolerated Well -Offloading No No -Debridement - Subq, 1st 20sq cm Yes Yes No -Apply Skin Sub - 1st 25 sq cm - Feet 1 -Epifix 18mm Disc 3 Pain Scale: 0-10 Numeric Is Patient Pain Free? Yes Yes Yes - Nurse 3 - General Ulcer D/C NN Start: 10/23/21 10:25 Freq: Status: Active Protocol: Activity Type Activity Date Activity User E-sign Co-sign Detail Recorded Client Recorded Date Recorded By Document 10/23/21 11:29 [facility] [id number] 10/23/21 11:30 [facility] Document 10/30/21 08:29 BM [id number] 10/30/21 08:30 [facility] Document 11/06/21 10:08 DL [id number] 11/06/21 10:13 DL 10/23/21 10/30/21 11/06/21 11:29 08:29 10:08 Wound Care Nurse 3 5. L lateral heel -Ulcer Cleansing Rinsed/ Rinsed/ Irrigated with Irrigated with Saline Saline -Foul Odor after Cleansing No No No -Primary Dressing Applied Mepilex Border, Mepilex Border, NonAdherent NonAdherent Contact Layer, Contact Layer, Promogran Promogran -Other Dressing drsg per ak sql programmer analyst epifix/hydrogel -Primary Dressing Covered/Secured with Dry Gauze & Roll Gauze, Secured with Tape -Other Covering padding -Mepilex Border 1 1 -Promogran 1 1 Left -Compression Wrap Frank Wrap Frank Wrap Treatment Response Procedure Procedure Procedure Tolerated Well Tolerated Well Tolerated Well Pain Scale: 0-10 Numeric Is Patient Pain Free? Yes Yes Yes - Visit Discharge Discharge Condition Stable Stable Stable Ambulatory Status Wheelchair Wheelchair Wheelchair Transportation Private Auto Private Auto Facility Type Intermediate Care Facility Other [facility] Orders Sent Yes Assessment/Plan Assessment/Plan (1) Diabetic ulcer of left heel: CODE(S): E11.621 - Type 2 diabetes mellitus with foot ulcer; L97.429 - Non-pressure chronic ulcer of left heel and midfoot with unspecified severity QUALIFIERS: Diabetes mellitus type: type 2 Non-pressure ulcer stage: with fat layer exposed Qualified Code(s): E11.621 - Type 2 diabetes mellitus with foot ulcer; L97.422 - Non-pressure chronic ulcer of left heel and midfoot with fat layer exposed (2) Type 2 diabetes mellitus: CODE(S): E11.9 - Type 2 diabetes mellitus without complications QUALIFIERS: Diabetes mellitus long-term insulin use: with long-term use Diabetes mellitus complication status: with skin complications Diabetes mellitus complication detail: with foot ulcer Qualified Code(s): E11.621 - Type 2 diabetes mellitus with foot ulcer; L97.509 - Non-pressure chronic ulcer of other part of unspecified foot with unspecified severity; Z79.4 - USP (current) use of insulin (3) Tobacco use: CODE(S): Z72.0 - Tobacco use PLAN: Plan No significant improvement. Debridement done as documented above, procedure was well-tolerated. Now approved for epi fix. Initial application done today using 100% of product. Moistened with hydrogel, covered with wound veil and secured with Steri-Strips. Leave in place for a week, follow-up next week for courtesy visit. Optimal diabetes control and increased protein intake, he voiced understanding. His questions were answered and was advised to call with any further questions or concerns. Follow up with me in 2 weeks. This note was generated with [employer] dictation software. It may contain incorrect words, spelling, and punctuation that were not noted in checking the note before signing.
[2021-11-13 08:11] VITALS: BP 109/65; PULSE 80; TEMP 35.9; BMI 40.6
--- NOTE | 2021-11-13 09:22 | PCM.WC.PN ---
History of Present Illness Date of Service: 11/13/21 Chief Complaint: Left Heel Ulcer History of Wound: Mr Ordoñez is a 56 yo who was last seen here In May for a left heel ulcer. He presents with a new left heel ulcer which started a month ago. Denies any known precipitating factor. He has been trying to manage it at his assisted living facility however measures so far have not been helpful. History of diabetes mellitus type 2 which had not been well controlled in the past. He denies chills, fever or otherwise feeling of unwell. Progress of Wound: No improvement noted. Now approved for Epifix Subjective Subjective This is a 56-year-old male who presents to the wound care center for follow-up of a left heel ulcer. He has history of DM type II. He states he follows Dr. Salcido at the wound center. He denies any constitutional symptoms today. He has no other complaints today. Objective Data Objective Data Vital Signs: Vital Signs Temp Pulse Resp BP 96.7 F L 80 20 H 109/65 11/13/21 08:11 11/13/21 08:11 11/06/21 09:38 11/13/21 08:11 Weight: 124.738 kg Body Mass Index (BMI) 40.6 Physical Exam Const alert, oriented x3 and no apparent distress General Appearance: cooperative and comfortable HEENT normocephalic Eyes General Eye: normal appearance of both eyes Neck General: normal visual inspection Chest inspection of chest normal Resp normal respiratory effort Cardio regular rate and regular rhythm Back/Spine normal to inspection Extremity normal capillary refill, no joint enlargement, no calf tenderness and no pedal edema Peripheral Pulses: Yes posterior tibial pulses present and dorsalis pedis pulses present Skin no rashes or lesions noted, skin turgor normal and no jaundice Wound Narrative: Left posterior lateral heel ulceration demonstrates granular layer with rolled wound edges. No signs of infection. Surrounding skin is soft supple and atrophic Neuro oriented x3 and moves all extremities Debridement Note Debridement Note Wound debrided: Left heel Laterality: Left Type of Debridement: Excisional debridement Anesthesia Used: 5% Lidocaine Gel Depth: Down to and including healthy tissue and in the subcutaneous layer Percentage of wound debrided: 100 Instrument Used: 3mm curette Tissue Removed: Fibrous, devitalized subcutaneous, biofilm, slough Severity: Fat Layer Exposed Amount of bleeding with debridement: Mild Bleeding Controlled with: Compression and gauze Patient tolerated procedure: Patient tolerated procedure well Post-Debridement Measurements and Additional Note: Post-Debridement Measurements/Treatment WC - Nurse 1 - General Ulcer Assessment Start: 10/23/21 10:25 Freq: Status: Active Protocol: SANDRA Activity Type Activity Date Activity User E-sign Co-sign Detail Recorded Client Recorded Date Recorded By Document 10/23/21 10:30 RB [id number] 10/23/21 10:43 RB Document 10/30/21 07:59 BMF [id number] 10/30/21 08:02 BMF Document 11/06/21 09:38 DL [id number] 11/06/21 09:45 DL Document 11/13/21 08:11 KR [id number] 11/13/21 08:15 KR 10/23/21 10/30/21 11/06/21 10:30 07:59 09:38 - Today's Visit Information Type of service Initial Visit Follow-up Visit Follow-up Visit (Physician/EDI COORDINATOR (Physician/EDI COORDINATOR ) ) Arrival Mode Wheelchair Other Ambulatory Arrival Mode (Other) motorized chair Transfer Assistance Manual None None Patient Identification Verified (Name & Yes Yes Yes ) Patient Requires Transmission-Based No No No Precautions Safety Precautions NA Finger Stick Blood Sugar(mg/dl) (if 169 indicated): Blood Sugar Stated by Patient Height and Weight Height 5 ft 9 in Weight 124.738 kg Weight in Pounds 275.0 lbs Body Mass Index (BMI) 40.6 40.6 40.6 BMI Classification Obese Obese Obese BSA - Rj 2.37 Vital Signs Temperature (97.8 F-99.1 F) 97.3 F L 95.6 F L 97.4 F L Temperature Source Temporal Temporal Temporal Pulse Rate (60-100) 77 83 76 Pulse Location Monitor Monitor Monitor Respiratory Rate (12-18) 18 20 H Respiratory rate source Observation Observation Blood Pressure (90/60-120/80) 107/63 125/71 H 97/60 Blood Pressure Mean (mm Hg) 77 89 72 Source Monitor Monitor Monitor Position Sitting Blood Pressure Location Left Arm History Since Last Visit- (Skip if this is Patient's initial visit) Have you changed medications since your No No No last visit? Any new allergies or adverse reactions No No No Had a fall/change in ADL's that may No No No increase risk of falls Signs or symptoms of abuse and/or No No No neglect since last visit Have you been in the hospital since your No No Yes last visit? Has dressing in place as prescribed Yes Yes No Has compression in place as prescribed No No Yes Has offloadiing in place as prescribed No No Yes Experienced any changes in pain level or No No No management Left Footwear Regular Shoe Surgical Shoe with pressure relief insole Right Footwear Regular Shoe Slipper Pain Scale: 0-10 Numeric Is Patient Pain Free? Yes Yes Yes Lower Extremity Assessment/ Foot Assessment/ Toe Nail Assessment Right -Posterior Tibial Palpable Yes -Dorsalis Pedis Palpable Yes -Extremity Color Normal -Hair Growth on Legs Yes -Hair Growth on Toes No -Temperature of Extremity Warm -Capillary Refill Less than 3 Seconds -Dependent Rubor No -Blanched when Elevated No -Lipodermatosclerosis No -Other Deformity No -Prior Foot Ulcer No -Charcot Joint No -Prior Amputation No -Thick No -Discolored No -Deformed No -Improper Length & Hygeine Yes Left -Posterior Tibial Palpable Yes -Dorsalis Pedis Palpable Yes -Extremity Color Normal -Hair Growth on Legs Yes -Hair Growth on Toes No -Temperature of Extremity Warm -Capillary Refill Less than 3 Seconds -Dependent Rubor No -Blanched when Elevated No -Lipodermatosclerosis No -Other Deformity No -Prior Foot Ulcer No -Charcot Joint No -Prior Amputation No -Thick No -Discolored No -Deformed No -Improper Length & Hygeine Yes Neuropathy Assessment Feet - Top Side and Bottom <Entered> (a) Communication Assessment Preferred language Welsh Supervisor Display Fabrication Required No Able to Read Yes Able to Write Yes Communication Tools None Caregiver Communication Skills No Impairment Impairment Right Hearing Abillity Normal Left Hearing Abillity Normal Visual Assistive Devices Glasses Teaching Assessment Preferences Demonstration Barriers to Learning None Readiness To Learn Good Willingness to Engage in Self Management Med Activies Readiness to Engage in Self Management Med Activities Anxiety Level Calm Cooperation Cooperative Perception Coherent Interest in Health Problem Asks Questions Education Importance Acknowledges Need Does Patient Smoke tobacco or other Yes substances Smoking Status Light Smoker (< 10/day) Is Patient Diabetic Yes Functional Assessment Recent Decline in Ability to Perform Ambulation, Bathing,Lower Body Dressing Assistive Device With Patient Yes Culture/Yarsanism/Cafe Or Restaurant Manager Cultural/Yarsanism Needs that may affect No Treatment Plan Would you allow our hospital sales consultant insurance to No meet you for the purpose of spiritual/ emotional support? Cafe Or Restaurant Manager to contact place of hoahaoism No Teaching: Wound Center *Welcome to the Wound Center -Person Taught Patient -Teaching Method Discussion -Response to teaching Verbalize understanding 11/13/21 08:11 WC - Today's Visit Information Type of service Follow-up Visit (Physician/EDI COORDINATOR ) Arrival Mode Wheelchair Arrival Mode (Other) Transfer Assistance Patient Identification Verified (Name & Yes ) Patient Requires Transmission-Based Precautions Safety Precautions Finger Stick Blood Sugar(mg/dl) (if indicated): Blood Sugar Height and Weight Height Weight Weight in Pounds Body Mass Index (BMI) 40.6 BMI Classification Obese BSA - Rj Vital Signs Temperature (97.8 F-99.1 F) 96.7 F L Temperature Source Temporal Pulse Rate (60-100) 80 Pulse Location Monitor Respiratory Rate (12-18) Respiratory rate source Blood Pressure (90/60-120/80) 109/65 Blood Pressure Mean (mm Hg) 79 Source Monitor Position Semi-Fowlers Blood Pressure Location Right Arm History Since Last Visit- (Skip if this is Patient's initial visit) Have you changed medications since your No last visit? Any new allergies or adverse reactions No Had a fall/change in ADL's that may No increase risk of falls Signs or symptoms of abuse and/or No neglect since last visit Have you been in the hospital since your No last visit? Has dressing in place as prescribed Yes Has compression in place as prescribed Yes Has offloadiing in place as prescribed N/A Experienced any changes in pain level or No management Left Footwear Regular Shoe Right Footwear Regular Shoe Pain Scale: 0-10 Numeric Is Patient Pain Free? Yes Lower Extremity Assessment/ Foot Assessment/ Toe Nail Assessment Right -Posterior Tibial Palpable -Dorsalis Pedis Palpable -Extremity Color -Hair Growth on Legs -Hair Growth on Toes -Temperature of Extremity -Capillary Refill -Dependent Rubor -Blanched when Elevated -Lipodermatosclerosis -Other Deformity -Prior Foot Ulcer -Charcot Joint -Prior Amputation -Thick -Discolored -Deformed -Improper Length & Hygeine Left -Posterior Tibial Palpable -Dorsalis Pedis Palpable -Extremity Color -Hair Growth on Legs -Hair Growth on Toes -Temperature of Extremity -Capillary Refill -Dependent Rubor -Blanched when Elevated -Lipodermatosclerosis -Other Deformity -Prior Foot Ulcer -Charcot Joint -Prior Amputation -Thick -Discolored -Deformed -Improper Length & Hygeine Neuropathy Assessment Feet - Top Side and Bottom Communication Assessment Preferred language teacher Required Able to Read Able to Write Communication Tools Caregiver Communication Skills Impairment Right Hearing Abillity Left Hearing Abillity Visual Assistive Devices Teaching Assessment Preferences Barriers to Learning Readiness To Learn Willingness to Engage in Self Management Activies Readiness to Engage in Self Management Activities Anxiety Level Cooperation Perception Interest in Health Problem Education Importance Does Patient Smoke tobacco or other substances Smoking Status Is Patient Diabetic Functional Assessment Recent Decline in Ability to Perform Assistive Device With Patient Culture/Yarsanism/Cafe Or Restaurant Manager Cultural/Yarsanism Needs that may affect Treatment Plan Would you allow our hospital sales consultant insurance to meet you for the purpose of spiritual/ emotional support? Cafe Or Restaurant Manager to contact place of hoahaoism Teaching: Wound Center *Welcome to the Wound Center -Person Taught -Teaching Method -Response to teaching (a) 1 - + throughout WC - Nurse 1 - General Ulcer Measurement Start: 10/23/21 10:25 Freq: Status: Active Protocol: Activity Type Activity Date Activity User E-sign Co-sign Detail Recorded Client Recorded Date Recorded By Document 10/23/21 10:30 RB [id number] 10/23/21 10:43 RB Document 10/30/21 07:59 [facility] [id number] 10/30/21 08:02 BMF Document 11/06/21 09:38 DL [id number] 11/06/21 09:45 DL Document 11/13/21 08:11 KR [id number] 11/13/21 08:15 KR 10/23/21 10/30/21 11/06/21 10:30 07:59 09:38 Wound Center Nurse 1 5. L lateral heel -Combined with other wound No No -Current Size (cm) - Length 1 0.9 0.8 -Current Size (cm) - Width 0.8 0.8 0.9 -Current Size (cm) - Depth 0.3 0.3 0.2 -Total Square Cm 0.8 0.72 0.72 -Date of Last Picture (Recall this 06/16/22 field) -Photo Taken Yes Yes Yes -Epithelialization None Present -Tunneling No No -Undermining/Tunneling No No -Circular Undermining No No -Change in Wound Grade/Stage No -Exudate Amt Medium Medium Small -Exudate Type Serosanguineous Serosanguineous -Wound Margin Distinct, Distinct, Distinct, Outline Outline Outline Attached Attached Attached -Granulation Amt Medium (34-66%) Large (67-100%) Medium (34-66%) -Granulation Quality Attapulgus N/A,Red Attapulgus -Slough/Fibrin Yes Yes -Necrosis Amt Small (1-33%) Small (1-33%) Medium (34-66%) -Necrotic Tissue Type Adherent Slough Adherent Slough Adherent Slough -Structure Exposed N/A N/A N/A -Texture (Camila-wound Skin Appearance) Assessed,Callus No Abnormality, Scarring Assessed -Moisture (Camila-wound Skin Appearance) Assessed Assessed, Dry/Scaly Maceration -Color (Camila-wound Skin Appearance) Assessed No Abnormality, No Abnormality Assessed -Temperature (Camila-wound Skin No Abnormality No Abnormality No Abnormality Appearance) (Pt Warm) (Pt Warm) (Pt Warm) -Tenderness on Palpation (Camila-wound No No No Skin Appearance) -Ulcer Cleansing Rinsed/ Rinsed/ Wound Cleanser Irrigated with Irrigated with Saline Saline -Foul Odor after Cleansing No No No -Anesthetic Used 5% Lidocaine 4% Lidocaine 5% Lidocaine Gel Solution Gel Lower Limb Edema Present Yes Right Calf (cm) 45 Right Ankle (cm) 28 Left Calf (cm) 45 Left Ankle (cm) 28.4 11/13/21 08:11 Wound Center Nurse 1 5. L lateral heel -Combined with other wound -Current Size (cm) - Length 1 -Current Size (cm) - Width 1 -Current Size (cm) - Depth 0.1 -Total Square Cm 1 -Date of Last Picture (Recall this field) -Photo Taken -Epithelialization -Tunneling -Undermining/Tunneling -Circular Undermining -Change in Wound Grade/Stage -Exudate Amt Small -Exudate Type Serosanguineous -Wound Margin Distinct, Outline Attached -Granulation Amt Large (67-100%) -Granulation Quality Red -Slough/Fibrin -Necrosis Amt None Present (0 %) -Necrotic Tissue Type -Structure Exposed -Texture (Camila-wound Skin Appearance) Assessed, Scarring -Moisture (Camila-wound Skin Appearance) No Abnormality, Assessed -Color (Camila-wound Skin Appearance) No Abnormality, Assessed -Temperature (Camila-wound Skin No Abnormality Appearance) (Pt Warm) -Tenderness on Palpation (Camila-wound No Skin Appearance) -Ulcer Cleansing Rinsed/ Irrigated with Saline -Foul Odor after Cleansing No -Anesthetic Used 5% Lidocaine Gel Lower Limb Edema Present Right Calf (cm) Right Ankle (cm) Left Calf (cm) Left Ankle (cm) WC - Nurse 2 - General Ulcer CM Notes Start: 10/23/21 10:25 Freq: Status: Active Protocol: Activity Type Activity Date Activity User E-sign Co-sign Detail Recorded Client Recorded Date Recorded By Document 10/23/21 11:11 MW [id number] 10/23/21 11:18 MW Document 10/30/21 08:20 MW [id number] 10/30/21 08:25 MW Document 11/06/21 09:53 MW [id number] 11/06/21 10:01 MW 10/23/21 10/30/21 11/06/21 11:11 08:20 09:53 Wound Center Nurse 2 5. L lateral heel -Time 11:12 08:20 09:54 -Correct Patient Yes Yes Yes -Correct Side, Site, Position Yes Yes Yes -Correct Procedure Yes Yes Yes -Procedure Performed Yes Yes Yes -Type of Procedure Debridement Debridement Debridement -Clinical Debridement Subcutaneous Subcutaneous Subcutaneous -Tissue Removed Subcutaneous Subcutaneous Subcutaneous -Post Debridement (cm) - Length 1.0 1.3 1.2 -Post Debridement (cm) - Width 0.9 1.0 1.3 -Post Debridement (cm) - Depth 0.2 0.2 0.2 -Total Square (Post) (cm) 0.90 1.30 1.56 -Area of Debridement (cm) - Length 1.0 1.3 1.2 -Area of Debridement (cm) - Width 0.9 1.0 1.3 -Total Square (Area) (cm) 0.90 1.30 1.56 -Tunneling No No No -Undermining/Tunneling No No No -Circular Undermining No No No -Wound/Ulcer Outcome Not Healed Not Healed Not Healed -Ulcer Cleansing Rinsed/ Rinsed/ Rinsed/ Irrigated with Irrigated with Irrigated with Saline Saline Saline -Foul Odor after Cleansing No No No -Bioengineered Tissue No No Yes -Type of Bioengineered Tissue Epifix 18mm Disc -Expiration Date 07/15/26 -Product Lot Number [id number] -Percent Used 100 -Lot number of Saline Used [id number] -Bleeding Controlled with Pressure Pressure Pressure -Treatment Response Procedure Procedure Procedure Tolerated Well Tolerated Well Tolerated Well -Offloading No No -Debridement - Subq, 1st 20sq cm Yes Yes No -Apply Skin Sub - 1st 25 sq cm - Feet 1 -Epifix 18mm Disc 3 Pain Scale: 0-10 Numeric Is Patient Pain Free? Yes Yes Yes - Nurse 3 - General Ulcer D/C NN Start: 10/23/21 10:25 Freq: Status: Active Protocol: Activity Type Activity Date Activity User E-sign Co-sign Detail Recorded Client Recorded Date Recorded By Document 10/23/21 11:29 [facility] [id number] 10/23/21 11:30 [facility] Document 10/30/21 08:29 BM [id number] 10/30/21 08:30 [facility] Document 11/06/21 10:08 DL [id number] 11/06/21 10:13 DL Document 11/13/21 09:18 AK [id number] 11/13/21 09:19 AK 10/23/21 10/30/21 11/06/21 11:29 08:29 10:08 Wound Care Nurse 3 5. L lateral heel -Ulcer Cleansing Rinsed/ Rinsed/ Irrigated with Irrigated with Saline Saline -Foul Odor after Cleansing No No No -Primary Dressing Applied Mepilex Border, Mepilex Border, NonAdherent NonAdherent Contact Layer, Contact Layer, Promogran Promogran -Other Dressing drsg per eros traffic maintenance officer epifix/hydrogel -Primary Dressing Covered/Secured with Dry Gauze & Roll Gauze, Secured with Tape -Other Covering padding -Mepilex Border 1 1 -Promogran 1 1 Left -Compression Wrap Frank Wrap Frank Wrap Treatment Response Procedure Procedure Procedure Tolerated Well Tolerated Well Tolerated Well Pain Scale: 0-10 Numeric Is Patient Pain Free? Yes Yes Yes WC - Visit Discharge Discharge Condition Stable Stable Stable Ambulatory Status Wheelchair Wheelchair Wheelchair Transportation Private Auto Private Auto Medication Reconcilliation completed & provided to patient/care provider Clinical Summary of Care Provided Facility Type R Programmer Care Facility Other [facility] Orders Sent Yes 11/13/21 09:18 Wound Care Nurse 3 5. L lateral heel -Ulcer Cleansing -Foul Odor after Cleansing -Primary Dressing Applied -Other Dressing nurses hat -Primary Dressing Covered/Secured with Dry Gauze & Roll Gauze, Secured with Tape -Other Covering -Mepilex Border -Promogran Left -Compression Wrap Treatment Response Pain Scale: 0-10 Numeric Is Patient Pain Free? Yes WC - Visit Discharge Discharge Condition Stable Ambulatory Status Wheelchair Transportation Medication Reconcilliation completed & Yes provided to patient/care provider Clinical Summary of Care Provided Yes Facility Type Other Orders Sent Assessment/Plan Assessment/Plan (1) Diabetic ulcer of left heel: CODE(S): E11.621 - Type 2 diabetes mellitus with foot ulcer; L97.429 - Non-pressure chronic ulcer of left heel and midfoot with unspecified severity QUALIFIERS: Diabetes mellitus type: type 2 Non-pressure ulcer stage: with fat layer exposed Qualified Code(s): E11.621 - Type 2 diabetes mellitus with foot ulcer; L97.422 - Non-pressure chronic ulcer of left heel and midfoot with fat layer exposed (2) Type 2 diabetes mellitus: CODE(S): E11.9 - Type 2 diabetes mellitus without complications QUALIFIERS: Diabetes mellitus retirement insulin use: with terminal clerk use Diabetes mellitus complication status: with skin complications Diabetes mellitus complication detail: with foot ulcer Qualified Code(s): E11.621 - Type 2 diabetes mellitus with foot ulcer; L97.509 - Non-pressure chronic ulcer of other part of unspecified foot with unspecified severity; Z79.4 - termite technician (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 This procedure was well-tolerated. Epi fix #2 applied to the wound bed. Dressed with wound veil and secured with Steri-Strips. He was instructed to leave this dressing in place and change outer dressings as needed. He was again instructed on proper glycemic control, diet, increasing protein intake to aid in wound healing. He voices understanding of all of this today. All questions were answered to his satisfaction. He will return to the clinic in 1 week for follow-up with Dr. Salcido. Dr. Akhil West Jr. D.P.M. [facility] [phone] Note: [employer] speech recognition senior data modeler software was used to create portions of this document. Sound-alike and misspelled words, as well as other senior data modeler errors may be contained in the documentation.
== END 2021-11-13 23:59 | disposition home or self-care (01) ==
LOC: WC 08:30
PROVIDERS: PCP Nurse Practitioner Adult Health; Visit Provider Internal Medicine
DX: E11.621 Type 2 diabetes mellitus with foot ulcer (principal); L97.422 Non-pressure chronic ulcer of left heel and midfoot with fat layer exposed; E11.40 Type 2 diabetes mellitus with diabetic neuropathy, unspecified; Z79.4 Long term (current) use of insulin; Z79.82 Long term (current) use of aspirin; I10 Essential (primary) hypertension; E78.00 Pure hypercholesterolemia, unspecified; Z72.0 Tobacco use
CPT/HCPCS: 11042; 15275; 99213; Q4186; G0463

== ENCOUNTER 2021-12-11 13:30 | Outpatient (RCR) | payer MEDICARE, MEDICAID, SELFPAY ==
[2021-11-14 00:04] VITALS: BP 109/65; PULSE 80; RESP 20; TEMP 35.9; BMI 40.6
[2021-11-20 10:17] VITALS: BP 116/57; PULSE 78; RESP 16; TEMP 36.2; BMI 40.6
--- NOTE | 2021-11-20 13:21 | PCM.WC.PN ---
History of Present Illness Date of Service: 11/20/21 Chief Complaint: Left Heel Ulcer History of Wound: Mr Ordoñez is a 56 yo who was last seen here In May for a left heel ulcer. He presents with a new left heel ulcer which started a month ago. Denies any known precipitating factor. He has been trying to manage it at his assisted living facility however measures so far have not been helpful. History of diabetes mellitus type 2 which had not been well controlled in the past. He denies chills, fever or otherwise feeling of unwell. Progress of Wound: Some worsening noted. He admits that he has been sitting a lot and has been putting a lot of pressure to that area. Reports some worsening pain. Has had 2 applications of epi fix. Objective Data Objective Data Vital Signs: Vital Signs Temp Pulse Resp BP O2 Del Method 97.1 F L 78 16 116/57 L Room Air 11/20/21 10:17 11/20/21 10:17 11/20/21 10:17 11/20/21 10:17 11/20/21 10:17 Oxygen Delivery Method Room Air Weight: 275 lb Body Mass Index (BMI) 40.6 Charges/Coding Procedures Integumentary 150xxx-152xx: 87175 Skin sub graft trnk/arm/leg Physical Exam Const alert, oriented x3 and no apparent distress General Appearance: cooperative and comfortable HEENT normocephalic Eyes General Eye: normal appearance of both eyes Neck General: normal visual inspection Chest inspection of chest normal Resp normal respiratory effort Cardio regular rate and regular rhythm Back/Spine normal to inspection Extremity normal capillary refill, no joint enlargement, no calf tenderness and no pedal edema Peripheral Pulses: Yes posterior tibial pulses present and dorsalis pedis pulses present Skin no rashes or lesions noted, skin turgor normal and no jaundice Wound Narrative: Left posterior lateral heel ulceration demonstrates granular layer with rolled wound edges. No signs of infection. Surrounding skin is soft supple and atrophic Neuro oriented x3 and moves all extremities Debridement Note Debridement Note Wound debrided: Left heel Type of Debridement: Excisional debridement Anesthesia Used: 4% Lidocaine Solution Depth: Down to and including healthy tissue and in the subcutaneous layer Percentage of wound debrided: 100 Tissue Removed: Slough and devitalized tissue Severity: Fat Layer Exposed Amount of bleeding with debridement: Mild Bleeding Controlled with: Pressure Patient tolerated procedure: Patient tolerated procedure well Post-Debridement Measurements and Additional Note: Post-Debridement Measurements/Treatment WC - Nurse 1 - General Ulcer Assessment Start: 11/20/21 10:14 Freq: Status: Active Protocol: SANDRA Activity Type Activity Date Activity User E-sign Co-sign Detail Recorded Client Recorded Date Recorded By Document 11/20/21 10:17 [facility] [id number] 11/20/21 10:27 [facility] 11/20/21 10:17 WC - Today's Visit Information Type of service Follow-up Visit (Physician/[employer] ) Arrival Mode Wheelchair Transfer Assistance Other Transfer Assist (Other) stand by Patient Identification Verified (Name & Yes ) Patient Requires Transmission-Based No Precautions Finger Stick Blood Sugar(mg/dl) (if 198 indicated): Blood Sugar Stated by Patient Height and Weight Body Mass Index (BMI) 40.6 BMI Classification Obese Vital Signs Temperature (97.8 F-99.1 F) 97.1 F L Temperature Source Temporal Pulse Rate (60-100) 78 Pulse Location Monitor Respiratory Rate (12-18) 16 Respiratory rate source Observation Oxygen Delivery Method Room Air Blood Pressure (90/60-120/80) 116/57 L Blood Pressure Mean (mm Hg) 76 Source Monitor Position Sitting Blood Pressure Location Right Arm History Since Last Visit- (Skip if this is Patient's initial visit) Have you changed medications since your No last visit? Any new allergies or adverse reactions No Had a fall/change in ADL's that may No increase risk of falls Signs or symptoms of abuse and/or No neglect since last visit Have you been in the hospital since your No last visit? Has dressing in place as prescribed Yes Has compression in place as prescribed Yes Has offloadiing in place as prescribed N/A Experienced any changes in pain level or No management Left Footwear Regular Shoe Right Footwear Regular Shoe Pain Scale: 0-10 Numeric Is Patient Pain Free? Yes YAHAIRA - Nurse 1 - General Ulcer Measurement Start: 11/20/21 10:14 Freq: Status: Active Protocol: Activity Type Activity Date Activity User E-sign Co-sign Detail Recorded Client Recorded Date Recorded By Document 11/20/21 10:17 [facility] [id number] 11/20/21 10:27 [facility] 11/20/21 10:17 Wound Center Nurse 1 5. L lateral heel -Combined with other wound No -Current Size (cm) - Length 0.1 -Current Size (cm) - Width 0.1 -Current Size (cm) - Depth 0.1 -Total Square Cm 0.01 -Date of Last Picture (Recall this 11/20/21 field) -Photo Taken Yes -Epithelialization Large 67-100% -Exudate Amt None Present -Wound Margin Distinct, Outline Attached -Texture (Camila-wound Skin Appearance) Assessed -Moisture (Camila-wound Skin Appearance) Assessed -Color (Camila-wound Skin Appearance) Assessed -Temperature (Camila-wound Skin No Abnormality Appearance) (Pt Warm) -Tenderness on Palpation (Camila-wound No Skin Appearance) -Ulcer Cleansing Soap and Water -Foul Odor after Cleansing No -Anesthetic Used 5% Lidocaine Gel WC - Nurse 2 - General Ulcer CM Notes Start: 11/20/21 10:14 Freq: Status: Active Protocol: Activity Type Activity Date Activity User E-sign Co-sign Detail Recorded Client Recorded Date Recorded By Document 11/20/21 10:44 MW [id number] 11/20/21 10:55 MW 11/20/21 10:44 Wound Center Nurse 2 -Time 10:45 -Correct Patient Yes -Correct Side, Site, Position Yes -Correct Procedure Yes -Procedure Performed Yes -Type of Procedure Debridement -Clinical Debridement Subcutaneous -Tissue Removed Subcutaneous -Post Debridement (cm) - Length 1.3 -Post Debridement (cm) - Width 1.3 -Post Debridement (cm) - Depth 0.3 -Total Square (Post) (cm) 1.69 -Area of Debridement (cm) - Length 1.3 -Area of Debridement (cm) - Width 1.3 -Total Square (Area) (cm) 1.69 -Tunneling No -Undermining/Tunneling No -Circular Undermining No -Wound/Ulcer Outcome Not Healed -Ulcer Cleansing Rinsed/ Irrigated with Saline -Foul Odor after Cleansing No -Bioengineered Tissue Yes -Type of Bioengineered Tissue Epifix 18mm Disc -Expiration Date 08/15/26 -Product Lot Number [id number] -Percent Used 100 -Lot number of Saline Used [id number] -Bleeding Controlled with Pressure -Treatment Response Procedure Tolerated Well -Offloading No -Debridement - Subq, 1st 20sq cm No -Apply Skin Sub - 1st 25 sq cm - Feet 1 -Epifix 18mm Disc 3 Pain Scale: 0-10 Numeric Is Patient Pain Free? Yes WC - Nurse 3 - General Ulcer D/C NN Start: 11/20/21 10:14 Freq: Status: Active Protocol: Activity Type Activity Date Activity User E-sign Co-sign Detail Recorded Client Recorded Date Recorded By Document 11/20/21 11:00 [place] [id number] 11/20/21 11:01 [place] 11/20/21 11:00 Wound Care Nurse 3 5. L lateral heel -Other Dressing nurses hat -Primary Dressing Covered/Secured with Dry Gauze & Roll Gauze, Secured with Tape Left -Compression Wrap Frank Wrap Pain Scale: 0-10 Numeric Is Patient Pain Free? Yes Assessment/Plan Assessment/Plan (1) Diabetic ulcer of left heel: CODE(S): E11.621 - Type 2 diabetes mellitus with foot ulcer; L97.429 - Non-pressure chronic ulcer of left heel and midfoot with unspecified severity QUALIFIERS: Diabetes mellitus type: type 2 Non-pressure ulcer stage: with fat layer exposed Qualified Code(s): E11.621 - Type 2 diabetes mellitus with foot ulcer; L97.422 - Non-pressure chronic ulcer of left heel and midfoot with fat layer exposed (2) Type 2 diabetes mellitus: CODE(S): E11.9 - Type 2 diabetes mellitus without complications QUALIFIERS: Diabetes mellitus shelter insulin use: with director long term care use Diabetes mellitus complication status: with skin complications Diabetes mellitus complication detail: with foot ulcer Qualified Code(s): E11.621 - Type 2 diabetes mellitus with foot ulcer; L97.509 - Non-pressure chronic ulcer of other part of unspecified foot with unspecified severity; Z79.4 - retirement (current) use of insulin (3) Tobacco use: CODE(S): Z72.0 - Tobacco use PLAN: Plan Increased. Patient admits that he has not been offloading as recommended. No clinical sign for infection however culture was taken due to pain. Debridement done as documented above, procedure was well-tolerated. That application of apple picks done today using 100% of product. Moistened with saline and covered with Adaptic touch. Secured with tape. Leave in place for a week. Optimal diabetes control, increased protein intake and offloading very strongly recommended. He voiced understanding. His questions were answered and was advised to call with any further questions or concerns. Follow up in 1 week. This note was generated with tracx dictation software. It may contain incorrect words, spelling, and punctuation that were not noted in checking the note before signing.
[2021-11-27 09:46] VITALS: BP 98/58; PULSE 79; RESP 16; TEMP 35.9; BMI 40.6
--- NOTE | 2021-11-27 11:40 | PN.PCM_ITS ---
History of Present Illness Date of Service: 11/27/21 Chief Complaint: Left Heel Ulcer History of Wound: Mr Ordoñez is a 56 yo who was last seen here In May for a left heel ulcer. He presents with a new left heel ulcer which started a month ago. Denies any known precipitating factor. He has been trying to manage it at his assisted living facility however measures so far have not been helpful. History of diabetes mellitus type 2 which had not been well controlled in the past. He denies chills, fever or otherwise feeling of unwell. Progress of Wound: Some improvement noted. No new concerns reported. Has had 3 applications of epi fix. Objective Data Objective Data Vital Signs: Vital Signs Temp Pulse Resp BP O2 Del Method 96.6 F L 79 16 98/58 L Room Air 11/27/21 09:46 11/27/21 09:46 11/27/21 09:46 11/27/21 09:46 11/27/21 09:46 Oxygen Delivery Method Room Air Weight: 275 lb Body Mass Index (BMI) 40.6 Lab / Micro Data Micro: Microbiology 11/20/21 10:45 Wound Abcess - Heel, Left Gram Stain - Final 11/20/21 10:45 Wound Abcess - Heel, Left Wound Culture - Final Staphylococcus aureus Corynebacterium striatum 11/20/21 10:45 Wound Abcess - Heel, Left Anaerobic Culture - Final No anaerobic bacteria isolated. Charges/Coding Procedures Integumentary 150xxx-152xx: 30167 Skin sub graft trnk/arm/leg Physical Exam Const alert, oriented x3 and no apparent distress General Appearance: cooperative and comfortable HEENT normocephalic Eyes General Eye: normal appearance of both eyes Neck General: normal visual inspection Chest inspection of chest normal Resp normal respiratory effort Cardio regular rate and regular rhythm Back/Spine normal to inspection Extremity normal capillary refill, no joint enlargement, no calf tenderness and no pedal edema Peripheral Pulses: Yes posterior tibial pulses present and dorsalis pedis pulses present Skin no rashes or lesions noted, skin turgor normal and no jaundice Wound Narrative: Left posterior lateral heel ulceration demonstrates granular layer with rolled wound edges. No signs of infection. Surrounding skin is soft supple and atrophic Neuro oriented x3 and moves all extremities Debridement Note Debridement Note Wound debrided: Left heel Type of Debridement: Excisional debridement Anesthesia Used: 4% Lidocaine Solution Depth: Down to and including healthy tissue and in the subcutaneous layer Percentage of wound debrided: 100 Instrument Used: 5mm curette Tissue Removed: Slough and devitalized tissue Severity: Fat Layer Exposed Amount of bleeding with debridement: Mild Bleeding Controlled with: Pressure Patient tolerated procedure: Patient tolerated procedure well Post-Debridement Measurements and Additional Note: Post-Debridement Measurements/Treatment YAHAIRA - Nurse 1 - General Ulcer Assessment Start: 11/20/21 10:14 Freq: Status: Active Protocol: SANDRA Activity Type Activity Date Activity User E-sign Co-sign Detail Recorded Client Recorded Date Recorded By Document 11/20/21 10:17 [facility] [id number] 11/20/21 10:27 [facility] Document 11/27/21 09:46 [facility] [id number] 11/27/21 09:55 [facility] 11/20/21 11/27/21 10:17 09:46 - Today's Visit Information Type of service Follow-up Visit Follow-up Visit (Physician/[employer] (Physician/[employer] ) ) Arrival Mode Wheelchair Wheelchair Transfer Assistance Other Other Transfer Assist (Other) stand by stand by Patient Identification Verified (Name & Yes Yes ) Patient Requires Transmission-Based No No Precautions Finger Stick Blood Sugar(mg/dl) (if 198 indicated): Blood Sugar Stated by Patient Height and Weight Body Mass Index (BMI) 40.6 40.6 BMI Classification Obese Obese Vital Signs Temperature (97.8 F-99.1 F) 97.1 F L 96.6 F L Temperature Source Temporal Temporal Pulse Rate (60-100) 78 79 Pulse Location Monitor Monitor Respiratory Rate (12-18) 16 16 Respiratory rate source Observation Observation Oxygen Delivery Method Room Air Room Air Blood Pressure (90/60-120/80) 116/57 L 98/58 L Blood Pressure Mean (mm Hg) 76 71 Source Monitor Monitor Position Sitting Sitting Blood Pressure Location Right Arm Left Arm Comment counseled pt r/ t bp. History Since Last Visit- (Skip if this is Patient's initial visit) Have you changed medications since your No No last visit? Any new allergies or adverse reactions No No Had a fall/change in ADL's that may No No increase risk of falls Signs or symptoms of abuse and/or No No neglect since last visit Have you been in the hospital since your No No last visit? Has dressing in place as prescribed Yes Yes Has compression in place as prescribed Yes N/A Has offloadiing in place as prescribed N/A Yes Experienced any changes in pain level or No No management Left Footwear Regular Shoe Other Footwear (Comment) Right Footwear Regular Shoe Other Footwear (Comment) Other Footwear non skid socks Pain Scale: 0-10 Numeric Is Patient Pain Free? Yes Yes WC - Nurse 1 - General Ulcer Measurement Start: 11/20/21 10:14 Freq: Status: Active Protocol: Activity Type Activity Date Activity User E-sign Co-sign Detail Recorded Client Recorded Date Recorded By Document 11/20/21 10:17 [facility] [id number] 11/20/21 10:27 BM Document 11/27/21 09:46 [facility] [id number] 11/27/21 09:55 BM 11/20/21 11/27/21 10:17 09:46 Wound Center Nurse 1 5. L lateral heel -Combined with other wound No No -Current Size (cm) - Length 0.1 0.8 -Current Size (cm) - Width 0.1 0.7 -Current Size (cm) - Depth 0.1 0.2 -Total Square Cm 0.01 0.56 -Date of Last Picture (Recall this 11/20/21 11/27/21 field) -Photo Taken Yes Yes -Epithelialization Large 67-100% Small 1-33% -Tunneling No -Undermining/Tunneling No -Circular Undermining No -Exudate Amt None Present Medium -Exudate Type Serosanguineous -Wound Margin Distinct, Distinct, Outline Outline Attached Attached -Granulation Amt Large (67-100%) -Granulation Quality Red -Slough/Fibrin Yes -Necrosis Amt Small (1-33%) -Necrotic Tissue Type Adherent Slough -Texture (Camila-wound Skin Appearance) Assessed Assessed, Fluctuance -Moisture (Camila-wound Skin Appearance) Assessed Assessed,Dry/ Scaly -Color (Camila-wound Skin Appearance) Assessed Assessed -Temperature (Camila-wound Skin No Abnormality No Abnormality Appearance) (Pt Warm) (Pt Warm) -Tenderness on Palpation (Camila-wound No No Skin Appearance) -Ulcer Cleansing Soap and Water Soap and Water -Foul Odor after Cleansing No No -Anesthetic Used 5% Lidocaine 5% Lidocaine Gel Gel - Nurse 2 - General Ulcer CM Notes Start: 11/20/21 10:14 Freq: Status: Active Protocol: Activity Type Activity Date Activity User E-sign Co-sign Detail Recorded Client Recorded Date Recorded By Document 11/20/21 10:44 MW [id number] 11/20/21 10:55 MW Document 11/27/21 10:08 MW [id number] 11/27/21 10:15 MW 11/20/21 11/27/21 10:44 10:08 Wound Center Nurse 2 5. L lateral heel -Time 10:45 10:14 -Correct Patient Yes Yes -Correct Side, Site, Position Yes Yes -Correct Procedure Yes Yes -Procedure Performed Yes Yes -Type of Procedure Debridement Debridement -Clinical Debridement Subcutaneous Subcutaneous -Tissue Removed Subcutaneous Subcutaneous -Post Debridement (cm) - Length 1.3 1.1 -Post Debridement (cm) - Width 1.3 0.9 -Post Debridement (cm) - Depth 0.3 0.2 -Total Square (Post) (cm) 1.69 0.99 -Area of Debridement (cm) - Length 1.3 1.1 -Area of Debridement (cm) - Width 1.3 0.9 -Total Square (Area) (cm) 1.69 0.99 -Tunneling No No -Undermining/Tunneling No No -Circular Undermining No No -Wound/Ulcer Outcome Not Healed Not Healed -Ulcer Cleansing Rinsed/ Rinsed/ Irrigated with Irrigated with Saline Saline -Foul Odor after Cleansing No No -Bioengineered Tissue Yes Yes -Type of Bioengineered Tissue Epifix 18mm Epifix 18mm Disc Disc -Expiration Date 08/15/26 09/14/26 -Product Lot Number [id number] -Percent Used 100 100 -Lot number of Saline Used [id number] -Bleeding Controlled with Pressure Pressure -Treatment Response Procedure Procedure Tolerated Well Tolerated Well -Offloading No No -Debridement - Subq, 1st 20sq cm No No -Apply Skin Sub - 1st 25 sq cm - Legs 1 -Apply Skin Sub - 1st 25 sq cm - Feet 1 -Epifix 18mm Disc 3 3 Pain Scale: 0-10 Numeric Is Patient Pain Free? Yes Yes - Nurse 3 - General Ulcer D/C NN Start: 11/20/21 10:14 Freq: Status: Active Protocol: Activity Type Activity Date Activity User E-sign Co-sign Detail Recorded Client Recorded Date Recorded By Document 11/20/21 11:00 MD [id number] 11/20/21 11:01 MD Document 11/27/21 10:27 [id number] 11/27/21 10:28 11/20/21 11/27/21 11:00 10:27 Wound Care Nurse 3 5. L lateral heel -Ulcer Cleansing Not Cleansed -Foul Odor after Cleansing No -Negative Pressure Wound Therapy N/A -Other Dressing nurses hat -Primary Dressing Covered/Secured with Dry Gauze & Dry Gauze & Roll Gauze, Roll Gauze, Secured with Secured with Tape Tape -Other Covering abd Left -Lotion applied to leg before No compression wrap -Compression Wrap Frank Wrap Frank Wrap Pain Scale: 0-10 Numeric Is Patient Pain Free? Yes Yes Teaching: Wound Center Dressing Your Wound -Person Taught Patient -Teaching Method Discussion, Demonstration -Response to teaching Verbalize understanding WC - Visit Discharge Discharge Condition Stable Ambulatory Status Wheelchair Transportation Private Auto Accompanied by SAS[facility] Medication Reconcilliation completed & No provided to patient/care provider Clinical Summary of Care Provided Yes Assessment/Plan Assessment/Plan (1) Diabetic ulcer of left heel: CODE(S): E11.621 - Type 2 diabetes mellitus with foot ulcer; L97.429 - Non-pressure chronic ulcer of left heel and midfoot with unspecified severity QUALIFIERS: Diabetes mellitus type: type 2 Non-pressure ulcer stage: with fat layer exposed Qualified Code(s): E11.621 - Type 2 diabetes mellitus with foot ulcer; L97.422 - Non-pressure chronic ulcer of left heel and midfoot with fat layer exposed (2) Type 2 diabetes mellitus: CODE(S): E11.9 - Type 2 diabetes mellitus without complications QUALIFIERS: Diabetes mellitus [facility] insulin use: with [facility] use Diabetes mellitus complication status: with skin complications Diabetes mellitus complication detail: with foot ulcer Qualified Code(s): E11.621 - Type 2 diabetes mellitus with foot ulcer; L97.509 - Non-pressure chronic ulcer of other part of unspecified foot with unspecified severity; Z79.4 - detention (current) use of insulin (3) Tobacco use: CODE(S): Z72.0 - Tobacco use PLAN: Plan Debridement done as documented above, procedure was well-tolerated. Improvement noted this week. Culture done last week with no significant growth. 4th application of Epifix done today using 100% of product. Moistened with saline and covered with Adaptic touch. Secured with Steri-Strips leave in place for a week. Optimal diabetes control, increased protein intake and offloading very strongly recommended. He voiced understanding. His questions were answered and was advised to call with any further questions or concerns. Follow up in 1 week. This note was generated with Vendscreen dictation software. It may contain incorrect words, spelling, and punctuation that were not noted in checking the note before signing.
[2021-12-04 10:28] VITALS: BP 105/64; PULSE 75; RESP 16; TEMP 35.5; BMI 40.6
--- NOTE | 2021-12-04 11:46 | PN.PCM_ITS ---
History of Present Illness Date of Service: 12/04/21 Chief Complaint: Left Heel Ulcer History of Wound: Mr Ordoñez is a 56 yo who was last seen here In May for a left heel ulcer. He presents with a new left heel ulcer which started a month ago. Denies any known precipitating factor. He has been trying to manage it at his assisted living facility however measures so far have not been helpful. History of diabetes mellitus type 2 which had not been well controlled in the past. He denies chills, fever or otherwise feeling of unwell. Progress of Wound: Some improvement noted. No new concerns reported. Has had 4 applications of epi fix. Objective Data Objective Data Vital Signs: Vital Signs Temp Pulse Resp BP O2 Del Method 95.9 F L 75 16 105/64 Room Air 12/04/21 10:28 12/04/21 10:28 12/04/21 10:28 12/04/21 10:28 12/04/21 10:28 Oxygen Delivery Method Room Air Weight: 275 lb Body Mass Index (BMI) 40.6 Lab / Micro Data Micro: Microbiology 11/20/21 10:45 Wound Abcess - Heel, Left Gram Stain - Final 11/20/21 10:45 Wound Abcess - Heel, Left Wound Culture - Final Staphylococcus aureus Corynebacterium striatum 11/20/21 10:45 Wound Abcess - Heel, Left Anaerobic Culture - Final No anaerobic bacteria isolated. Charges/Coding Procedures Integumentary 150xxx-152xx: [id number] Skin sub graft trnk/arm/leg Physical Exam Const alert, oriented x3 and no apparent distress General Appearance: cooperative and comfortable HEENT normocephalic Eyes General Eye: normal appearance of both eyes Neck General: normal visual inspection Chest inspection of chest normal Resp normal respiratory effort Cardio regular rate and regular rhythm Back/Spine normal to inspection Extremity normal capillary refill, no joint enlargement, no calf tenderness and no pedal edema Peripheral Pulses: Yes posterior tibial pulses present and dorsalis pedis pulses present Skin no rashes or lesions noted, skin turgor normal and no jaundice Wound Narrative: Left posterior lateral heel ulceration demonstrates granular layer with rolled wound edges. No signs of infection. Surrounding skin is soft supple and atrophic Neuro oriented x3 and moves all extremities Debridement Note Debridement Note Wound debrided: Left heel Type of Debridement: Excisional debridement Anesthesia Used: 4% Lidocaine Solution Depth: Down to and including healthy tissue and in the subcutaneous layer Percentage of wound debrided: 100 Instrument Used: 5mm curette Tissue Removed: Slough and devitalized tissue Severity: Fat Layer Exposed Amount of bleeding with debridement: Mild Bleeding Controlled with: Pressure Patient tolerated procedure: Patient tolerated procedure well Post-Debridement Measurements and Additional Note: Post-Debridement Measurements/Treatment - Nurse 1 - General Ulcer Assessment Start: 11/20/21 10:14 Freq: Status: Active Protocol: SANDRA Activity Type Activity Date Activity User E-sign Co-sign Detail Recorded Client Recorded Date Recorded By Document 11/20/21 10:17 [facility] [id number] 11/20/21 10:27 [facility] Document 11/27/21 09:46 [facility] [id number] 11/27/21 09:55 [facility] Document 12/04/21 10:28 [facility] [id number] 12/04/21 10:39 [facility] 11/20/21 11/27/21 12/04/21 10:17 09:46 10:28 - Today's Visit Information Type of service Follow-up Visit Follow-up Visit Follow-up Visit (Physician/B[employer]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 (Physician/BAND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 (Physician/B[employer]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 ) ) ) Arrival Mode Wheelchair Wheelchair Wheelchair Transfer Assistance Other Other Other Transfer Assist (Other) stand by stand by stand by Patient Identification Verified (Name & Yes Yes Yes ) Patient Requires Transmission-Based No No No Precautions Finger Stick Blood Sugar(mg/dl) (if 198 indicated): Blood Sugar Stated by Patient Height and Weight Body Mass Index (BMI) 40.6 40.6 40.6 BMI Classification Obese Obese Obese Vital Signs Temperature (97.8 F-99.1 F) 97.1 F L 96.6 F L 95.9 F L Temperature Source Temporal Temporal Temporal Pulse Rate (60-100) 78 79 75 Pulse Location Monitor Monitor Monitor Respiratory Rate (12-18) 16 16 16 Respiratory rate source Observation Observation Observation Oxygen Delivery Method Room Air Room Air Room Air Blood Pressure (90/60-120/80) 116/57 L 98/58 L 105/64 Blood Pressure Mean (mm Hg) 76 71 77 Source Monitor Monitor Monitor Position Sitting Sitting Sitting Blood Pressure Location Right Arm Left Arm Right Arm Comment counseled pt r/ t bp. History Since Last Visit- (Skip if this is Patient's initial visit) Have you changed medications since your No No No last visit? Any new allergies or adverse reactions No No No Had a fall/change in ADL's that may No No No increase risk of falls Signs or symptoms of abuse and/or No No No neglect since last visit Have you been in the hospital since your No No No last visit? Has dressing in place as prescribed Yes Yes Yes Has compression in place as prescribed Yes N/A Yes Has offloadiing in place as prescribed N/A Yes Yes Experienced any changes in pain level or No No No management Left Footwear Regular Shoe Other Footwear (Comment) Right Footwear Regular Shoe Other Footwear Other Footwear (Comment) (Comment) Other Footwear non skid socks non skid sock r foot Pain Scale: 0-10 Numeric Is Patient Pain Free? Yes Yes Yes WC - Nurse 1 - General Ulcer Measurement Start: 11/20/21 10:14 Freq: Status: Active Protocol: Activity Type Activity Date Activity User E-sign Co-sign Detail Recorded Client Recorded Date Recorded By Document 11/20/21 10:17 [facility] [id number] 11/20/21 10:27 [facility] Document 11/27/21 09:46 [facility] [id number] 11/27/21 09:55 [facility] Document 12/04/21 10:28 [facility] [id number] 12/04/21 10:39 BM 11/20/21 11/27/21 12/04/21 10:17 09:46 10:28 Wound Center Nurse 1 5. L lateral heel -Combined with other wound No No No -Current Size (cm) - Length 0.1 0.8 0.8 -Current Size (cm) - Width 0.1 0.7 0.5 -Current Size (cm) - Depth 0.1 0.2 0.2 -Total Square Cm 0.01 0.56 0.40 -Date of Last Picture (Recall this 11/20/21 11/27/21 12/04/21 field) -Photo Taken Yes Yes Yes -Epithelialization Large 67-100% Small 1-33% Small 1-33% -Tunneling No No -Undermining/Tunneling No No -Circular Undermining No No -Exudate Amt None Present Medium Medium -Exudate Type Serosanguineous Serosanguineous -Wound Margin Distinct, Distinct, Distinct, Outline Outline Outline Attached Attached Attached -Granulation Amt Large (67-100%) Large (67-100%) -Granulation Quality Red Red -Slough/Fibrin Yes Yes -Necrosis Amt Small (1-33%) Small (1-33%) -Necrotic Tissue Type Adherent Slough Adherent Slough -Texture (Camila-wound Skin Appearance) Assessed Assessed, Assessed, Fluctuance Scarring -Moisture (Camila-wound Skin Appearance) Assessed Assessed,Dry/ Assessed,Dry/ Scaly Scaly -Color (Camila-wound Skin Appearance) Assessed Assessed Assessed -Temperature (Camila-wound Skin No Abnormality No Abnormality No Abnormality Appearance) (Pt Warm) (Pt Warm) (Pt Warm) -Tenderness on Palpation (Camila-wound No No No Skin Appearance) -Ulcer Cleansing Soap and Water Soap and Water Soap and Water -Foul Odor after Cleansing No No Yes, Due to Product Use -Anesthetic Used 5% Lidocaine 5% Lidocaine 5% Lidocaine Gel Gel Gel WC - Nurse 2 - General Ulcer CM Notes Start: 11/20/21 10:14 Freq: Status: Active Protocol: Activity Type Activity Date Activity User E-sign Co-sign Detail Recorded Client Recorded Date Recorded By Document 11/20/21 10:44 MW [id number] 11/20/21 10:55 MW Document 11/27/21 10:08 MW [id number] 11/27/21 10:15 MW Document 12/04/21 10:47 MW [id number] 12/04/21 10:56 MW 11/20/21 11/27/21 12/04/21 10:44 10:08 10:47 Wound Center Nurse 2 5. L lateral heel -Time 10:45 10:14 10:47 -Correct Patient Yes Yes Yes -Correct Side, Site, Position Yes Yes Yes -Correct Procedure Yes Yes Yes -Procedure Performed Yes Yes Yes -Type of Procedure Debridement Debridement Debridement -Clinical Debridement Subcutaneous Subcutaneous Subcutaneous -Tissue Removed Subcutaneous Subcutaneous Subcutaneous -Post Debridement (cm) - Length 1.3 1.1 1.0 -Post Debridement (cm) - Width 1.3 0.9 1.0 -Post Debridement (cm) - Depth 0.3 0.2 0.2 -Total Square (Post) (cm) 1.69 0.99 1.00 -Area of Debridement (cm) - Length 1.3 1.1 1.0 -Area of Debridement (cm) - Width 1.3 0.9 1.0 -Total Square (Area) (cm) 1.69 0.99 1.00 -Tunneling No No No -Undermining/Tunneling No No No -Circular Undermining No No No -Wound/Ulcer Outcome Not Healed Not Healed Not Healed -Ulcer Cleansing Rinsed/ Rinsed/ Rinsed/ Irrigated with Irrigated with Irrigated with Saline Saline Saline -Foul Odor after Cleansing No No No -Bioengineered Tissue Yes Yes Yes -Type of Bioengineered Tissue Epifix 18mm Epifix 18mm Epifix 18mm Disc Disc Disc -Expiration Date 08/15/26 09/14/26 09/14/26 -Product Lot Number [id number] -Percent Used 100 100 100 -Lot number of Saline Used [id number] -Bleeding Controlled with Pressure Pressure Pressure -Treatment Response Procedure Procedure Procedure Tolerated Well Tolerated Well Tolerated Well -Offloading No No No -Debridement - Subq, 1st 20sq cm No No No -Apply Skin Sub - 1st 25 sq cm - Legs 1 -Apply Skin Sub - 1st 25 sq cm - Feet 1 1 -Epifix 18mm Disc 3 3 3 Pain Scale: 0-10 Numeric Is Patient Pain Free? Yes Yes Yes - Nurse 3 - General Ulcer D/C NN Start: 11/20/21 10:14 Freq: Status: Active Protocol: Activity Type Activity Date Activity User E-sign Co-sign Detail Recorded Client Recorded Date Recorded By Document 11/20/21 11:00 [facility] [id number] 11/20/21 11:01 [facility] Document 11/27/21 10:27 [id number] 11/27/21 10:28 Document 12/04/21 11:08 [facility] [id number] 12/04/21 11:08 [facility] 11/20/21 11/27/21 12/04/21 11:00 10:27 11:08 Wound Care Nurse 3 5. L lateral heel -Ulcer Cleansing Not Cleansed -Foul Odor after Cleansing No -Negative Pressure Wound Therapy N/A -Other Dressing nurses hat epifix -Primary Dressing Covered/Secured with Dry Gauze & Dry Gauze & Dry Gauze & Roll Gauze, Roll Gauze, Roll Gauze, Secured with Secured with Secured with Tape Tape Tape -Other Covering abd heel hat Left -Lotion applied to leg before No compression wrap -Compression Wrap Frank Wrap Frank Wrap Frank Wrap Treatment Response Procedure Tolerated Well Pain Scale: 0-10 Numeric Is Patient Pain Free? Yes Yes Yes Teaching: Wound Center Dressing Your Wound -Person Taught Patient -Teaching Method Discussion, Demonstration -Response to teaching Verbalize understanding WC - Visit Discharge Discharge Condition Stable Stable Ambulatory Status Wheelchair Wheelchair Transportation Private Auto Accompanied by SASCHA Medication Reconcilliation completed & No provided to patient/care provider Clinical Summary of Care Provided Yes Assessment/Plan Assessment/Plan (1) Diabetic ulcer of left heel: CODE(S): E11.621 - Type 2 diabetes mellitus with foot ulcer; L97.429 - Non-pressure chronic ulcer of left heel and midfoot with unspecified severity QUALIFIERS: Diabetes mellitus type: type 2 Non-pressure ulcer stage: with fat layer exposed Qualified Code(s): E11.621 - Type 2 diabetes mellitus with foot ulcer; L97.422 - Non-pressure chronic ulcer of left heel and midfoot with fat layer exposed (2) Type 2 diabetes mellitus: CODE(S): E11.9 - Type 2 diabetes mellitus without complications QUALIFIERS: Diabetes mellitus rn long term care insulin use: with [facility] use Diabetes mellitus complication status: with skin complications Diabetes mellitus complication detail: with foot ulcer Qualified Code(s): E11.621 - Type 2 diabetes mellitus with foot ulcer; L97.509 - Non-pressure chronic ulcer of other part of unspecified foot with unspecified severity; Z79.4 - rn long term care (current) use of insulin (3) Tobacco use: CODE(S): Z72.0 - Tobacco use PLAN: Plan Debridement done as documented above, procedure was well-tolerated. Improvement noted this week. 5th application of Epifix done today using 100% of product. Moistened with saline and covered with Adaptic touch. Secured with Steri- Strips, leave in place for a week. Optimal diabetes control, increased protein intake and offloading very strongly recommended. He voiced understanding. His questions were answered and was advised to call with any further questions or concerns. Follow up in 1 week for a courtesy visit and in 2 weeks with me This note was generated with [employer] dictation software. It may contain incorrect words, spelling, and punctuation that were not noted in checking the note before signing.
[2021-12-11 13:14] VITALS: BP 118/68; PULSE 72; TEMP 36.4; BMI 40.6
--- NOTE | 2021-12-11 15:15 | PN.PCM_ITS ---
History of Present Illness Date of Service: 12/11/21 Chief Complaint: Left Heel Ulcer History of Wound: Mr Ordoñez is a 56 yo who was last seen here In May for a left heel ulcer. He presents with a new left heel ulcer which started a month ago. Denies any known precipitating factor. He has been trying to manage it at his assisted living facility however measures so far have not been helpful. History of diabetes mellitus type 2 which had not been well controlled in the past. He denies chills, fever or otherwise feeling of unwell. Progress of Wound: This is a courtesy visit since Dr. Salcido is out of town this week. He has had 5 applications of Epifix. Today there is a thick, pink, creamy drainage coming from under scabbing that appears to be dried epifix, that trapped moisture under the scabbing. There is undermining from 6-10 o'clock. Once scabbing removed, the base of ulcer is pink. Wound culture obtained due to the increase size of the ulcer along with increased pain and drainage. Objective Data Objective Data Vital Signs: Vital Signs Temp Pulse Resp BP O2 Del Method 97.6 F L 72 16 118/68 Room Air 12/11/21 13:14 12/11/21 13:14 12/04/21 10:28 12/11/21 13:14 12/04/21 10:28 Oxygen Delivery Method Room Air Weight: 275 lb Body Mass Index (BMI) 40.6 Lab / Micro Data Micro: Microbiology 11/20/21 10:45 Wound Abcess - Heel, Left Gram Stain - Final 11/20/21 10:45 Wound Abcess - Heel, Left Wound Culture - Final Staphylococcus aureus Corynebacterium striatum 11/20/21 10:45 Wound Abcess - Heel, Left Anaerobic Culture - Final No anaerobic bacteria isolated. Charges/Coding Procedures Integumentary [id number]: [id number] Ana María subq tissue 20 sq cm/< Physical Exam Const alert and no apparent distress General Appearance: cooperative HEENT normocephalic Resp normal respiratory effort Cardio regular rate Extremity General Extremity: edema left lower extremity Skin Wound Narrative: Left lateral heel ulcer is larger in size with undermining from 6-10 o'clock. Psych Appearance: well kempt Debridement Note Debridement Note Wound debrided: lateral heel Laterality: Left Wound Grade/Stage: Stage IV Type of Debridement: Excisional debridement Anesthesia Used: 5% Lidocaine Gel Depth: Down to and including healthy tissue and in the subcutaneous layer Percentage of wound debrided: 100 Instrument Used: 3mm curette Severity: Fat Layer Exposed Amount of bleeding with debridement: Mild Bleeding Controlled with: Pressure and Compression and gauze Patient tolerated procedure: Patient tolerated procedure well Debridement Free Text: Removed scabbing that appears to be dried epifix. Where the undermining is present from 6-10 o'clock, easily removed that dried, non viable tissue. Base of ulcer is beefy pink and bleeds well. Post-Debridement Measurements and Additional Note: Post-Debridement Measurements/Treatment - Nurse 1 - General Ulcer Assessment Start: 11/20/21 10:14 Freq: Status: Active Protocol: SANDRA Activity Type Activity Date Activity User E-sign Co-sign Detail Recorded Client Recorded Date Recorded By Document 11/20/21 10:17 [facility] [id number] 11/20/21 10:27 [facility] Document 11/27/21 09:46 [facility] [id number] 11/27/21 09:55 [facility] Document 12/04/21 10:28 [facility] [id number] 12/04/21 10:39 [facility] Document 12/11/21 13:14 [id number] 12/11/21 13:21 KR 11/20/21 11/27/21 12/04/21 10:17 09:46 10:28 - Today's Visit Information Type of service Follow-up Visit Follow-up Visit Follow-up Visit (Physician/BIOINFORMATICS RESEARCH TECHNICIAN (Physician/BIOINFORMATICS RESEARCH TECHNICIAN (Physician/BIOINFORMATICS RESEARCH TECHNICIAN ) ) ) Arrival Mode Wheelchair Wheelchair Wheelchair Transfer Assistance Other Other Other Transfer Assist (Other) stand by stand by stand by Patient Identification Verified (Name & Yes Yes Yes ) Patient Requires Transmission-Based No No No Precautions Finger Stick Blood Sugar(mg/dl) (if 198 indicated): Blood Sugar Stated by Patient Height and Weight Body Mass Index (BMI) 40.6 40.6 40.6 BMI Classification Obese Obese Obese Vital Signs Temperature (97.8 F-99.1 F) 97.1 F L 96.6 F L 95.9 F L Temperature Source Temporal Temporal Temporal Pulse Rate (60-100) 78 79 75 Pulse Location Monitor Monitor Monitor Respiratory Rate (12-18) 16 16 16 Respiratory rate source Observation Observation Observation Oxygen Delivery Method Room Air Room Air Room Air Blood Pressure (90/60-120/80) 116/57 L 98/58 L 105/64 Blood Pressure Mean (mm Hg) 76 71 77 Source Monitor Monitor Monitor Position Sitting Sitting Sitting Blood Pressure Location Right Arm Left Arm Right Arm Comment counseled pt r/ t bp. History Since Last Visit- (Skip if this is Patient's initial visit) Have you changed medications since your No No No last visit? Any new allergies or adverse reactions No No No Had a fall/change in ADL's that may No No No increase risk of falls Signs or symptoms of abuse and/or No No No neglect since last visit Have you been in the hospital since your No No No last visit? Has dressing in place as prescribed Yes Yes Yes Has compression in place as prescribed Yes N/A Yes Has offloadiing in place as prescribed N/A Yes Yes Experienced any changes in pain level or No No No management Left Footwear Regular Shoe Other Footwear (Comment) Right Footwear Regular Shoe Other Footwear Other Footwear (Comment) (Comment) Other Footwear non skid socks non skid sock r foot Pain Scale: 0-10 Numeric Is Patient Pain Free? Yes Yes Yes 12/11/21 13:14 WC - Today's Visit Information Type of service Follow-up Visit (Physician/BIOINFORMATICS RESEARCH TECHNICIAN ) Arrival Mode Wheelchair Transfer Assistance Transfer Assist (Other) Patient Identification Verified (Name & Yes ) Patient Requires Transmission-Based Precautions Finger Stick Blood Sugar(mg/dl) (if indicated): Blood Sugar Height and Weight Body Mass Index (BMI) 40.6 BMI Classification Obese Vital Signs Temperature (97.8 F-99.1 F) 97.6 F L Temperature Source Temporal Pulse Rate (60-100) 72 Pulse Location Monitor Respiratory Rate (12-18) Respiratory rate source Oxygen Delivery Method Blood Pressure (90/60-120/80) 118/68 Blood Pressure Mean (mm Hg) 84 Source Monitor Position Sitting Blood Pressure Location Right Arm Comment History Since Last Visit- (Skip if this is Patient's initial visit) Have you changed medications since your No last visit? Any new allergies or adverse reactions No Had a fall/change in ADL's that may No increase risk of falls Signs or symptoms of abuse and/or No neglect since last visit Have you been in the hospital since your No last visit? Has dressing in place as prescribed Yes Has compression in place as prescribed N/A Has offloadiing in place as prescribed N/A Experienced any changes in pain level or No management Left Footwear Regular Shoe Right Footwear Regular Shoe Other Footwear Pain Scale: 0-10 Numeric Is Patient Pain Free? Yes WC - Nurse 1 - General Ulcer Measurement Start: 11/20/21 10:14 Freq: Status: Active Protocol: Activity Type Activity Date Activity User E-sign Co-sign Detail Recorded Client Recorded Date Recorded By Document 11/20/21 10:17 [facility] [id number] 11/20/21 10:27 [facility] Document 11/27/21 09:46 [facility] [id number] 11/27/21 09:55 [facility] Document 12/04/21 10:28 [facility] [id number] 12/04/21 10:39 [facility] Document 12/11/21 13:14 KR [id number] 12/11/21 13:21 KR 11/20/21 11/27/21 12/04/21 10:17 09:46 10:28 Wound Center Nurse 1 5. L lateral heel -Combined with other wound No No No -Current Size (cm) - Length 0.1 0.8 0.8 -Current Size (cm) - Width 0.1 0.7 0.5 -Current Size (cm) - Depth 0.1 0.2 0.2 -Total Square Cm 0.01 0.56 0.40 -Date of Last Picture (Recall this 11/20/21 11/27/21 12/04/21 field) -Photo Taken Yes Yes Yes -Epithelialization Large 67-100% Small 1-33% Small 1-33% -Tunneling No No -Undermining/Tunneling No No -Circular Undermining No No -Exudate Amt None Present Medium Medium -Exudate Type Serosanguineous Serosanguineous -Wound Margin Distinct, Distinct, Distinct, Outline Outline Outline Attached Attached Attached -Granulation Amt Large (67-100%) Large (67-100%) -Granulation Quality Red Red -Slough/Fibrin Yes Yes -Necrosis Amt Small (1-33%) Small (1-33%) -Necrotic Tissue Type Adherent Slough Adherent Slough -Texture (Camila-wound Skin Appearance) Assessed Assessed, Assessed, Fluctuance Scarring -Moisture (Camila-wound Skin Appearance) Assessed Assessed,Dry/ Assessed,Dry/ Scaly Scaly -Color (Camila-wound Skin Appearance) Assessed Assessed Assessed -Temperature (Camila-wound Skin No Abnormality No Abnormality No Abnormality Appearance) (Pt Warm) (Pt Warm) (Pt Warm) -Tenderness on Palpation (Camila-wound No No No Skin Appearance) -Ulcer Cleansing Soap and Water Soap and Water Soap and Water -Foul Odor after Cleansing No No Yes, Due to Product Use -Anesthetic Used 5% Lidocaine 5% Lidocaine 5% Lidocaine Gel Gel Gel Left Calf (cm) Left Ankle (cm) 12/11/21 13:14 Wound Center Nurse 1 5. L lateral heel -Combined with other wound -Current Size (cm) - Length 0.9 -Current Size (cm) - Width 0.7 -Current Size (cm) - Depth 0.1 -Total Square Cm 0.63 -Date of Last Picture (Recall this field) -Photo Taken -Epithelialization -Tunneling -Undermining/Tunneling -Circular Undermining -Exudate Amt Medium -Exudate Type Serosanguineous -Wound Margin Distinct, Outline Attached -Granulation Amt Medium (34-66%) -Granulation Quality [place] -Slough/Fibrin -Necrosis Amt None Present (0 %) -Necrotic Tissue Type -Texture (Camila-wound Skin Appearance) Assessed, Scarring -Moisture (Camila-wound Skin Appearance) No Abnormality, Assessed -Color (Camila-wound Skin Appearance) No Abnormality, Assessed -Temperature (Camila-wound Skin No Abnormality Appearance) (Pt Warm) -Tenderness on Palpation (Camila-wound No Skin Appearance) -Ulcer Cleansing Rinsed/ Irrigated with Saline -Foul Odor after Cleansing No -Anesthetic Used 5% Lidocaine Gel Left Calf (cm) 44.5 Left Ankle (cm) 27 WC - Nurse 2 - General Ulcer CM Notes Start: 11/20/21 10:14 Freq: Status: Active Protocol: Activity Type Activity Date Activity User E-sign Co-sign Detail Recorded Client Recorded Date Recorded By Document 11/20/21 10:44 MW [id number] 11/20/21 10:55 MW Document 11/27/21 10:08 MW [id number] 11/27/21 10:15 MW Document 12/04/21 10:47 MW [id number] 12/04/21 10:56 MW Document 12/11/21 13:40 MW [id number] 12/11/21 13:42 MW 11/20/21 11/27/21 12/04/21 10:44 10:08 10:47 Wound Center Nurse 2 5. L lateral heel -Time 10:45 10:14 10:47 -Correct Patient Yes Yes Yes -Correct Side, Site, Position Yes Yes Yes -Correct Procedure Yes Yes Yes -Procedure Performed Yes Yes Yes -Type of Procedure Debridement Debridement Debridement -Clinical Debridement Subcutaneous Subcutaneous Subcutaneous -Tissue Removed Subcutaneous Subcutaneous Subcutaneous -Post Debridement (cm) - Length 1.3 1.1 1.0 -Post Debridement (cm) - Width 1.3 0.9 1.0 -Post Debridement (cm) - Depth 0.3 0.2 0.2 -Total Square (Post) (cm) 1.69 0.99 1.00 -Area of Debridement (cm) - Length 1.3 1.1 1.0 -Area of Debridement (cm) - Width 1.3 0.9 1.0 -Total Square (Area) (cm) 1.69 0.99 1.00 -Tunneling No No No -Undermining/Tunneling No No No -Circular Undermining No No No -Wound/Ulcer Outcome Not Healed Not Healed Not Healed -Ulcer Cleansing Rinsed/ Rinsed/ Rinsed/ Irrigated with Irrigated with Irrigated with Saline Saline Saline -Foul Odor after Cleansing No No No -Bioengineered Tissue Yes Yes Yes -Type of Bioengineered Tissue Epifix 18mm Epifix 18mm Epifix 18mm Disc Disc Disc -Expiration Date 08/15/26 09/14/26 09/14/26 -Product Lot Number [id number] -Percent Used 100 100 100 -Lot number of Saline Used [id number] -Bleeding Controlled with Pressure Pressure Pressure -Treatment Response Procedure Procedure Procedure Tolerated Well Tolerated Well Tolerated Well -Offloading No No No -Debridement - Subq, 1st 20sq cm No No No -Apply Skin Sub - 1st 25 sq cm - Legs 1 -Apply Skin Sub - 1st 25 sq cm - Feet 1 1 -Epifix 18mm Disc 3 3 3 Pain Scale: 0-10 Numeric Is Patient Pain Free? Yes Yes Yes 12/11/21 13:40 Wound Center Nurse 2 5. L lateral heel -Time 13:42 -Correct Patient Yes -Correct Side, Site, Position Yes -Correct Procedure Yes -Procedure Performed Yes -Type of Procedure Debridement -Clinical Debridement Subcutaneous -Tissue Removed Subcutaneous -Post Debridement (cm) - Length 1.5 -Post Debridement (cm) - Width 1.5 -Post Debridement (cm) - Depth 0.4 -Total Square (Post) (cm) 2.25 -Area of Debridement (cm) - Length 1.5 -Area of Debridement (cm) - Width 1.5 -Total Square (Area) (cm) 2.25 -Tunneling No -Undermining/Tunneling No -Circular Undermining No -Wound/Ulcer Outcome Not Healed -Ulcer Cleansing Rinsed/ Irrigated with Saline -Foul Odor after Cleansing No -Bioengineered Tissue No -Type of Bioengineered Tissue -Expiration Date -Product Lot Number -Percent Used -Lot number of Saline Used -Bleeding Controlled with Pressure -Treatment Response Procedure Tolerated Well -Offloading No -Debridement - Subq, 1st 20sq cm Yes -Apply Skin Sub - 1st 25 sq cm - Legs -Apply Skin Sub - 1st 25 sq cm - Feet -Epifix 18mm Disc Pain Scale: 0-10 Numeric Is Patient Pain Free? Yes WC - Nurse 3 - General Ulcer D/C NN Start: 11/20/21 10:14 Freq: Status: Active Protocol: Activity Type Activity Date Activity User E-sign Co-sign Detail Recorded Client Recorded Date Recorded By Document 11/20/21 11:00 MT [id number] 11/20/21 11:01 MT Document 11/27/21 10:27 MW [id number] 11/27/21 10:28 MW Document 12/04/21 11:08 [facility] [id number] 12/04/21 11:08 [facility] Document 12/11/21 14:00 DL [id number] 12/11/21 14:02 DL 11/20/21 11/27/21 12/04/21 11:00 10:27 11:08 Wound Care Nurse 3 5. L lateral heel -Ulcer Cleansing Not Cleansed -Foul Odor after Cleansing No -Negative Pressure Wound Therapy N/A -Primary Dressing Applied -Other Dressing nurses hat epifix -Primary Dressing Covered/Secured with Dry Gauze & Dry Gauze & Dry Gauze & Roll Gauze, Roll Gauze, Roll Gauze, Secured with Secured with Secured with Tape Tape Tape -Other Covering abd heel hat -Aquacel AG 4x4 Left -Lotion applied to leg before No compression wrap -Compression Wrap Frank Wrap Frank Wrap Frank Wrap Treatment Response Procedure Tolerated Well Pain Scale: 0-10 Numeric Is Patient Pain Free? Yes Yes Yes Teaching: Wound Center Dressing Your Wound -Person Taught Patient -Teaching Method Discussion, Demonstration -Response to teaching Verbalize understanding WC - Visit Discharge Discharge Condition Stable Stable Ambulatory Status Wheelchair Wheelchair Transportation [facility] Medication Reconcilliation completed & No provided to patient/care provider Clinical Summary of Care Provided Yes Facility Type Orders Sent 12/11/21 14:00 Wound Care Nurse 3 5. L lateral heel -Ulcer Cleansing Rinsed/ Irrigated with Saline -Foul Odor after Cleansing No -Negative Pressure Wound Therapy -Primary Dressing Applied Aquacel AG 4x4 -Other Dressing -Primary Dressing Covered/Secured with Dry Gauze & Roll Gauze, Secured with Tape -Other Covering Nurse hat/ FRANK -Aquacel AG 4x4 1 Left -Lotion applied to leg before compression wrap -Compression Wrap Treatment Response Procedure Tolerated Well Pain Scale: 0-10 Numeric Is Patient Pain Free? Yes Teaching: Wound Center Dressing Your Wound -Person Taught -Teaching Method -Response to teaching WC - Visit Discharge Discharge Condition Stable Ambulatory Status Wheelchair Transportation Accompanied by Medication Reconcilliation completed & provided to patient/care provider Clinical Summary of Care Provided Facility Type [facility] Orders Sent Yes Assessment/Plan Assessment/Plan (1) Diabetic ulcer of left heel: CODE(S): E11.621 - Type 2 diabetes mellitus with foot ulcer; L97.429 - Non-pressure chronic ulcer of left heel and midfoot with unspecified severity QUALIFIERS: Diabetes mellitus type: type 2 Non-pressure ulcer stage: with fat layer exposed Qualified Code(s): E11.621 - Type 2 diabetes mellitus with foot ulcer; L97.422 - Non-pressure chronic ulcer of left heel and midfoot with fat layer exposed (2) Type 2 diabetes mellitus: CODE(S): E11.9 - Type 2 diabetes mellitus without complications QUALIFIERS: Diabetes mellitus oysterman insulin use: with alf use Diabetes mellitus complication status: with skin complications Diabetes mellitus complication detail: with foot ulcer Qualified Code(s): E11.621 - Type 2 diabetes mellitus with foot ulcer; L97.509 - Non-pressure chronic ulcer of other part of unspecified foot with unspecified severity; Z79.4 - skilled nursing (current) use of insulin (3) Tobacco use: CODE(S): Z72.0 - Tobacco use PLAN: Plan Patient was evaluated at the wound healing center and a subcutaneous debridement was performed as documented. There was dried scabbing present over the ulcer, that was most likely the epifix which caused the drainage to stay trapped in the ulcer, which caused worsening of the ulcer and undermining. The debridement was able to clean up the ulcer. Obtained a wound culture due the thick, creamy pink drainage, increased pain and worsening ulcer. Depending on the results of the culture, it may necessitate the need for treatment with antibiotics. Will take a break this week from the epifix until the culture results come back. Wound care will be Aquacel-Ag to the base of the ulcer and cover with gauze daily after washing with soap and water. Follow up one week with Dr. Salcido.
== END 2021-12-14 23:59 | disposition home or self-care (01) ==
LOC: WC 13:30
PROVIDERS: PCP Nurse Practitioner Adult Health; Visit Provider Internal Medicine
DX: E11.621 Type 2 diabetes mellitus with foot ulcer (principal); L97.502 Non-pressure chronic ulcer of other part of unspecified foot with fat layer exposed; L97.422 Non-pressure chronic ulcer of left heel and midfoot with fat layer exposed; Z79.4 Long term (current) use of insulin; Z72.0 Tobacco use
CPT/HCPCS: 11042; 15271; 15275; 87070; 87075; 87077; 87186; 87205; Q4186

== ENCOUNTER 2022-02-05 09:00 | Outpatient (RCR) | payer MEDICARE, MEDICAID, SELFPAY ==
[2021-12-15 00:08] VITALS: BP 118/68; PULSE 72; RESP 16; TEMP 36.4; BMI 40.6
[2022-01-15 09:43] VITALS: BP 128/74; PULSE 87; TEMP 36.2; BMI 40.6
--- NOTE | 2022-01-15 10:49 | PCM.WC.HP ---
History of Present Illness Date of Service: 01/15/22 Chief Complaint: Left Heel Ulcer History of Wound: Mr Ordoñez is a 56 yo who was last seen here a month ago for a left heel ulcer. At his last visit, he had culture done due to concern for an infection and he was switched to Aquacel Ag. He has been using that inconsistently and he states that he completed his antibiotic. Due to transportation issues, he had not been able to make it here for about a month. He feels well at this time, denies chills or fever. [facility] Medical History (Updated 12/11/21 @ 17:21 by Arlin Zuleta ESCALATOR INSTALLER, ESCALATOR INSTALLER-C) Anxiety and depression Bipolar disorder Chronic anemia Decubitus ulcer of left buttock, stage 3 Diabetes Diabetic ulcer of left heel HTN (hypertension) Hypercholesterolemia Morbid obesity Neuropathy Rheumatoid arthritis RUQ abdominal pain Tobacco use Type 2 diabetes mellitus Uncontrolled type 2 diabetes mellitus with hyperosmolar nonketotic hyperglycemia Home Medications amitriptyline 75 mg tablet 75 mg PO QHS depression 11/27/20 [History Last Taken 01/14/21] aspirin 81 mg chewable tablet 81 mg PO DAILY heart 11/27/20 [History Last Taken 01/16/21] atorvastatin 80 mg tablet 80 mg PO QHS cholesterol 11/27/20 [History Last Taken 01/14/21] buspirone 5 mg tablet 5 mg PO BID anxiety 11/27/20 [History Last Taken 01/16/21] cholecalciferol (vitamin D3) 50 mcg (2,000 unit) tablet (Vitamin D3) 50 mcg PO DAILY vitamin 11/27/20 [History Last Taken 01/16/21] duloxetine 60 mg capsule,delayed release sprinkle 60 mg PO QHS depression 11/27/20 [History Last Taken Unknown] ezetimibe 10 mg tablet 10 mg PO DAILY cholesterol 11/27/20 [History Last Taken 01/16/21] ferrous sulfate 325 mg (65 mg iron) tablet 325 mg PO DAILY supplement 11/27/20 [History Last Taken 01/16/21] insulin lispro 100 unit/mL subcutaneous cartridge See Protocol subcut TID diabetes 11/27/20 [History Last Taken 01/16/21] mecobalamin (vitamin B12) 1,000 mcg chewable tablet (B12 Active) 1,000 mcg PO DAILY vitamin 11/27/20 [History Last Taken 01/16/21] metoprolol tartrate 25 mg tablet 25 mg PO BID htn 11/27/20 [History Last Taken 01/16/21] omega 4-mwc-vsz-fish oil 1,000 mg (120 mg-180 mg) capsule (Fish Oil) 1 cap PO BID supplement 11/27/20 [History Last Taken 01/16/21] pregabalin 200 mg capsule 200 mg PO TID nerve pill 11/27/20 [History Last Taken 01/16/21] sertraline 50 mg tablet 50 mg PO DAILY depression 11/27/20 [History Last Taken 01/15/21] tamsulosin 0.4 mg capsule 0.4 mg PO QHS urine 11/27/20 [History Last Taken 01/14/21] pantoprazole 40 mg tablet,delayed release (Protonix) 40 mg PO BID #60 tabs 01/15/21 [Rx Last Taken 01/16/21] amlodipine 10 mg tablet 10 mg PO DAILY BP 01/16/21 [History Last Taken 01/16/21] bupropion HCl 150 mg 24 hr tablet, extended release 150 mg PO BID 01/16/21 [History Last Taken 01/16/21] metformin 500 mg tablet 500 mg PO BID DM 01/16/21 [History Last Taken 01/16/21] sucralfate 1 gram tablet 1 g PO ACHS STOMACH 01/16/21 [History Last Taken 01/16/21] insulin degludec 100 unit/mL (3 mL) subcutaneous pen (Tresiba FlexTouch U-100 insulin) 40 unit (0.4 mL) subcut QHS diabetes #0 mL 01/23/21 [Rx Last Taken Unknown] lactulose 20 gram/30 mL oral solution 20 g (30 mL) PO DAILY 30 days #900 mL 01/23/21 [Rx Last Taken Unknown] quetiapine 25 mg tablet 25 mg PO BID #60 tabs 01/23/21 [Rx Last Taken Unknown] amitriptyline 50 mg tablet 50 mg PO QHS 10/23/21 [History Last Taken Unknown] dupilumab 200 mg/1.14 mL subcutaneous pen injector (Dupixent) 300 mg subcut QWEEK 10/23/21 [History Last Taken Unknown] leflunomide 10 mg tablet (Arava) 10 mg PO DAILY 10/23/21 [History Last Taken Unknown] lisinopril 10 mg tablet 10 mg PO DAILY 10/23/21 [History Last Taken Unknown] amoxicillin 875 mg-potassium clavulanate 125 mg tablet 1 tab PO BID 14 days #28 tabs 12/18/21 [Rx Last Taken Unknown] Allergy/AdvReac Type Severity Reaction Status Date / Time No Known Allergies Allergy Verified 01/16/21 12:27 Family History (Updated 01/11/21 @ 01:[address] Kanwal Russo MD) Mother Diabetes Father Diabetes Hypertension Social History housing: assisted living facility Smoking Status: Light Smoker (<10/day) alcohol intake: never substance use type: does not use ROS Constitutional Constitutional: Denies fatigue, fever(s), frequent falls, headache(s), increased appetite, lethargy or malaise Eyes Eyes: Denies diplopia, discharge from eye(s), discongugate gaze, exophthalmos, eye pain, floaters, foreign body or halo effect ENT HEENT: Denies dysphagia, foreign body in nose, headache(s), mucositis, nasal congestion, nasal discharge or nasal trauma Cardiovascular Cardiovascular: Denies chest pain with activity, cyanosis, dyspnea at rest, dyspnea on exertion, fatigue, flutter in chest or hypertension Respiratory/Chest Respiratory/Chest: Denies dusky skin, dyspnea, dyspnea on exertion, excessive phlegm production, hemoptysis, hoarseness, inability to speak or nail bed cyanosis Gastrointestinal Gastrointestinal: Denies chewing difficulty, coffee ground emesis, constipation, cramping, diarrhea, dry heaves or dyspepsia Genitourinary Genitourinary: Denies abdominal discomfort, anuria, burning urination, dysuria or flank pain Musculoskeletal Musculoskeletal: Denies arthralgias, atrophy, back pain or deformity Integumentary Integumentary: Denies erythema, furuncle, hirsutism, jaundice or lesions Neurologic Neurologic: Denies abnormal speech, behavior changes, burning sensations, convulsions, disequilibrium or dizziness Psychiatric Psychiatric: Denies abnormal sleep pattern, anhedonia, anxiety, auditory hallucinations, behavioral changes, irritability or memory loss Endocrine Endocrinology: Denies cold intolerance, excessive sweating, fatigue, flushing or heat intolerance Allergic/Immunologic Allergic/Immunologic: Denies lip swelling, tongue swelling, hives, eczemia, wheezing or asthma Vital Signs Vital Signs Vital Signs: 01/15/22 09:43 Temperature 97.1 F L Temperature Source Temporal Pulse Rate 87 Blood Pressure 128/74 H Blood Pressure Mean 92 Blood Pressure Source Monitor Blood Pressure Position Sitting Blood Pressure Location Left Arm Weight Weight: 275 lb Body Mass Index (BMI) 40.6 Physical Exam Const alert, oriented x3 and no apparent distress General Appearance: cooperative and comfortable HEENT normocephalic Eyes General Eye: normal appearance of both eyes Neck General: normal visual inspection Chest inspection of chest normal Resp normal respiratory effort Back/Spine normal to inspection Extremity normal capillary refill, no joint enlargement, no calf tenderness and no pedal edema Peripheral Pulses: Yes posterior tibial pulses present and dorsalis pedis pulses present Skin no rashes or lesions noted, skin turgor normal and no jaundice Wound Narrative: Left posterior lateral heel ulceration demonstrates granular layer with rolled wound edges. No signs of infection. Surrounding skin is soft supple and atrophic Neuro oriented x3 and moves all extremities Debridement Note Debridement Note Wound debrided: Left heel Type of Debridement: Excisional debridement Depth: Down to and including healthy tissue and in the subcutaneous layer Percentage of wound debrided: 100 Instrument Used: 3mm curette Tissue Removed: Slough and devitalized tissue Severity: Fat Layer Exposed Amount of bleeding with debridement: Mild Bleeding Controlled with: Pressure Patient tolerated procedure: Patient tolerated procedure well Post-Debridement Measurements and Additional Note: Post-Debridement Measurements/Treatment - Nurse 1 - General Ulcer Assessment Start: 01/15/22 09:42 Freq: Status: Active Protocol: SANDRA Activity Type Activity Date Activity User E-sign Co-sign Detail Recorded Client Recorded Date Recorded By Document 01/15/22 09:43 [id number] 01/15/22 09:49 KR 01/15/22 09:43 - Today's Visit Information Type of service Follow-up Visit (Physician/BUS INFO CONSULTANT ) Arrival Mode Ambulatory Patient Identification Verified (Name & Yes ) Height and Weight Body Mass Index (BMI) 40.6 BMI Classification Obese Vital Signs Temperature (97.8 F-99.1 F) 97.1 F L Temperature Source Temporal Pulse Rate (60-100) 87 Pulse Location Monitor Blood Pressure (90/60-120/80) 128/74 H Blood Pressure Mean 92 Source Monitor Position Sitting Blood Pressure Location Left Arm History Since Last Visit- (Skip if this is Patient's initial visit) Have you changed medications since your No last visit? Any new allergies or adverse reactions No Had a fall/change in ADL's that may No increase risk of falls Signs or symptoms of abuse and/or No neglect since last visit Have you been in the hospital since your No last visit? Has dressing in place as prescribed Yes Has compression in place as prescribed N/A Has offloadiing in place as prescribed N/A Experienced any changes in pain level or No management Left Footwear Regular Shoe Right Footwear Regular Shoe Pain Scale: 0-10 Numeric Is Patient Pain Free? Yes WC - Nurse 1 - General Ulcer Measurement Start: 01/15/22 09:42 Freq: Status: Active Protocol: Activity Type Activity Date Activity User E-sign Co-sign Detail Recorded Client Recorded Date Recorded By Document 01/15/22 09:43 KR [id number] 01/15/22 09:49 KR 01/15/22 09:43 Wound Center Nurse 1 #6 l Lat Heel -Current Size (cm) - Length 1.3 -Current Size (cm) - Width 1 -Current Size (cm) - Depth 0.1 -Total Square Cm 1.3 -Photo Taken Yes -Classification - Thickness Full Thickness without Exposed Support Structure -Exudate Amt Small -Exudate Type Serosanguineous -Wound Margin Thickened -Granulation Amt None Present (0 %) -Necrosis Amt Large (67-100%) -Necrotic Tissue Type Adherent Slough -Texture (Camila-wound Skin Appearance) Scarring -Moisture (Camila-wound Skin Appearance) Dry/Scaly -Color (Camila-wound Skin Appearance) Hemosiderin Staining -Temperature (Camila-wound Skin No Abnormality Appearance) (Pt Warm) -Tenderness on Palpation (Camila-wound No Skin Appearance) -Ulcer Cleansing Rinsed/ Irrigated with Saline -Foul Odor after Cleansing No -Anesthetic Used 5% Lidocaine Gel Left Calf (cm) 46.3 Left Ankle (cm) 27.9 - Nurse 2 - General Ulcer CM Notes Start: 01/15/22 09:42 Freq: Status: Active Protocol: Activity Type Activity Date Activity User E-sign Co-sign Detail Recorded Client Recorded Date Recorded By Document 09/01/22 10:17 MW [id number] 01/15/22 10:22 MW 01/15/22 10:17 Wound Center Nurse 2 #6 l Lat Heel -Time 10:18 -Correct Patient Yes -Correct Side, Site, Position Yes -Correct Procedure Yes -Procedure Performed Yes -Type of Procedure Debridement -Clinical Debridement Subcutaneous -Tissue Removed Subcutaneous -Post Debridement (cm) - Length 1.0 -Post Debridement (cm) - Width 0.6 -Post Debridement (cm) - Depth 0.2 -Total Square (Post) (cm) 0.60 -Area of Debridement (cm) - Length 1.0 -Area of Debridement (cm) - Width 0.6 -Total Square (Area) (cm) 0.60 -Tunneling No -Undermining/Tunneling No -Circular Undermining No -Wound/Ulcer Outcome Not Healed -Ulcer Cleansing Rinsed/ Irrigated with Saline -Foul Odor after Cleansing No -Bioengineered Tissue No -Bleeding Controlled with Pressure -Treatment Response Procedure Tolerated Well -Offloading No -Debridement - Subq, 1st 20sq cm Yes Pain Scale: 0-10 Numeric Is Patient Pain Free? Yes Charges/Coding Visit Charges Office Visits / Consults: 38984 OV L3 Est Procedures Integumentary 111xxx-113xx: 20370 Ana María subq tissue 20 sq cm/< Assessment/Plan Assessment/Plan (1) Diabetic ulcer of left heel: CODE(S): E11.621 - Type 2 diabetes mellitus with foot ulcer; L97.429 - Non-pressure chronic ulcer of left heel and midfoot with unspecified severity QUALIFIERS: Diabetes mellitus type: type 2 Non-pressure ulcer stage: with fat layer exposed Qualified Code(s): E11.621 - Type 2 diabetes mellitus with foot ulcer; L97.422 - Non-pressure chronic ulcer of left heel and midfoot with fat layer exposed (2) Type 2 diabetes mellitus: CODE(S): E11.9 - Type 2 diabetes mellitus without complications QUALIFIERS: Diabetes mellitus fdc insulin use: with fdc use Diabetes mellitus complication status: with skin complications Diabetes mellitus complication detail: with foot ulcer Qualified Code(s): E11.621 - Type 2 diabetes mellitus with foot ulcer; L97.509 - Non-pressure chronic ulcer of other part of unspecified foot with unspecified severity; Z79.4 - longterm (current) use of insulin (3) Tobacco use: CODE(S): Z72.0 - Tobacco use PLAN: Plan Debridement done as documented above, procedure was well-tolerated. Some improvement noted compared to last documentation. Continue [employer] with [employer] over top. Change daily. Continue Nurses's hat, surgical shoe and compression. Optimal diabetes control. Smoking cessation. Increase vitamin C, D and zinc. His questions were answered and he was advised to call with any further questions or concerns. Follow-up in 1 week. This note was generated with [employer] dictation software. It may contain incorrect words, spelling, and punctuation that were not noted in checking the note before signing.
[2022-01-22 08:43] VITALS: BP 147/66; PULSE 85; RESP 16; TEMP 35.7; BMI 40.6
--- NOTE | 2022-01-22 09:17 | PCM.WC.PN ---
History of Present Illness Date of Service: 01/22/22 Chief Complaint: Left Heel Ulcer History of Wound: Mr Ordoñez is a 56 yo who was last seen here a month ago for a left heel ulcer. At his last visit, he had culture done due to concern for an infection and he was switched to Aquacel Ag. He has been using that inconsistently and he states that he completed his antibiotic. Due to transportation issues, he had not been able to make it here for about a month. He feels well at this time, denies chills or fever. Progress of Wound: No new concerns today. Has been applying aquacel ag,covered with ABD. Objective Data Objective Data Vital Signs: Vital Signs Temp Pulse Resp BP O2 Del Method 96.2 F L 85 16 147/66 H Room Air 01/22/22 08:43 01/22/22 08:43 01/22/22 08:43 01/22/22 08:43 01/22/22 08:43 Oxygen Delivery Method Room Air Weight: 275 lb Body Mass Index (BMI) 40.6 Charges/Coding Procedures Integumentary 111xxx-113xx: 54865 Ana María subq tissue 20 sq cm/< Physical Exam Const alert, oriented x3 and no apparent distress General Appearance: cooperative and comfortable HEENT normocephalic Eyes General Eye: normal appearance of both eyes Neck General: normal visual inspection Chest inspection of chest normal Resp normal respiratory effort Back/Spine normal to inspection Extremity normal capillary refill, no calf tenderness and no pedal edema Skin no rashes or lesions noted and no jaundice Neuro oriented x3 and moves all extremities Debridement Note Debridement Note Wound debrided: Left heel Type of Debridement: Excisional debridement Anesthesia Used: 4% Lidocaine Solution Depth: Down to and including healthy tissue and in the subcutaneous layer Percentage of wound debrided: 100 Instrument Used: 7mm curette Tissue Removed: Slough and devitalized tissue Severity: Fat Layer Exposed Amount of bleeding with debridement: Mild Bleeding Controlled with: Pressure Patient tolerated procedure: Patient tolerated procedure well Post-Debridement Measurements and Additional Note: Post-Debridement Measurements/Treatment [id number] - Nurse 1 - General Ulcer Assessment Start: 01/15/22 09:42 Freq: Status: Active Protocol: SANDRA Activity Type Activity Date Activity User E-sign Co-sign Detail Recorded Client Recorded Date Recorded By Document 01/15/22 09:43 SHAE [id number] 01/15/22 09:49 KR Document 01/22/22 08:43 [facility] [id number] 01/22/22 08:50 F 01/15/22 01/22/22 09:43 08:43 - Today's Visit Information Type of service Follow-up Visit Follow-up Visit (Physician/WEB APPLICATIONS ARCHITECT (Physician/WEB APPLICATIONS ARCHITECT ) ) Arrival Mode Ambulatory Wheelchair Transfer Assistance Other Transfer Assist (Other) stand by 1 Patient Identification Verified (Name & Yes Yes ) Patient Requires Transmission-Based No Precautions Height and Weight Body Mass Index (BMI) 40.6 40.6 BMI Classification Obese Obese Vital Signs Temperature (97.8 F-99.1 F) 97.1 F L 96.2 F L Temperature Source Temporal Temporal Pulse Rate (60-100) 87 85 Pulse Location Monitor Monitor Respiratory Rate (12-18) 16 Respiratory rate source Observation Oxygen Delivery Method Room Air Blood Pressure (90/60-120/80) 128/74 H 147/66 H Blood Pressure Mean 92 93 Source Monitor Monitor Position Sitting Sitting Blood Pressure Location Left Arm Left Arm History Since Last Visit- (Skip if this is Patient's initial visit) Have you changed medications since your No No last visit? Any new allergies or adverse reactions No No Had a fall/change in ADL's that may No No increase risk of falls Signs or symptoms of abuse and/or No No neglect since last visit Have you been in the hospital since your No No last visit? Has dressing in place as prescribed Yes Yes Has compression in place as prescribed N/A No Has offloadiing in place as prescribed N/A Yes Experienced any changes in pain level or No No management Left Footwear Regular Shoe Slipper Right Footwear Regular Shoe Slipper Pain Scale: 0-10 Numeric Is Patient Pain Free? Yes Yes - Nurse 1 - General Ulcer Measurement Start: 01/15/22 09:42 Freq: Status: Active Protocol: Activity Type Activity Date Activity User E-sign Co-sign Detail Recorded Client Recorded Date Recorded By Document 01/15/22 09:43 SHAE [id number] 01/15/22 09:49 KR Document 01/22/22 08:43 [facility] [id number] 01/22/22 08:50 [facility] 01/15/22 01/22/22 09:43 08:43 Wound Center Nurse 1 #6 l Lat Heel -Combined with other wound No -Current Size (cm) - Length 1.3 0.6 -Current Size (cm) - Width 1 0.4 -Current Size (cm) - Depth 0.1 0.2 -Total Square Cm 1.3 0.24 -Date of Last Picture (Recall this 01/22/22 field) -Photo Taken Yes Yes -Epithelialization Small 1-33% -Tunneling No -Undermining/Tunneling No -Circular Undermining No -Classification - Thickness Full Thickness without Exposed Support Structure -Exudate Amt Small Small -Exudate Type Serosanguineous Serous -Wound Margin Thickened Distinct, Outline Attached -Granulation Amt None Present (0 Large (67-100%) %) -Granulation Quality Red -Slough/Fibrin Yes -Necrosis Amt Large (67-100%) Small (1-33%) -Necrotic Tissue Type Adherent Slough Adherent Slough -Texture (Camila-wound Skin Appearance) Scarring Assessed, Scarring -Moisture (Camila-wound Skin Appearance) Dry/Scaly Assessed, Maceration,Dry/ Scaly -Color (Camila-wound Skin Appearance) Hemosiderin Assessed,Palor Staining -Temperature (Camila-wound Skin No Abnormality No Abnormality Appearance) (Pt Warm) (Pt Warm) -Tenderness on Palpation (Camila-wound No No Skin Appearance) -Ulcer Cleansing Rinsed/ Rinsed/ Irrigated with Irrigated with Saline Saline -Foul Odor after Cleansing No No -Anesthetic Used 5% Lidocaine 5% Lidocaine Gel Gel Lower Limb Edema Present Yes Left Calf (cm) 46.3 44.2 Left Ankle (cm) 27.9 25.8 WC - Nurse 2 - General Ulcer CM Notes Start: 01/15/22 09:42 Freq: Status: Active Protocol: Activity Type Activity Date Activity User E-sign Co-sign Detail Recorded Client Recorded Date Recorded By Document 01/15/22 10:17 MW [id number] 01/15/22 10:22 MW Document 01/22/22 08:58 MW [id number] 01/22/22 09:05 MW 01/15/22 01/22/22 10:17 08:58 Wound Center Nurse 2 #6 l Lat Heel -Time 10:18 08:59 -Correct Patient Yes Yes -Correct Side, Site, Position Yes Yes -Correct Procedure Yes Yes -Procedure Performed Yes Yes -Type of Procedure Debridement Debridement -Clinical Debridement Subcutaneous Subcutaneous -Tissue Removed Subcutaneous Subcutaneous -Post Debridement (cm) - Length 1.0 1.1 -Post Debridement (cm) - Width 0.6 0.6 -Post Debridement (cm) - Depth 0.2 0.2 -Total Square (Post) (cm) 0.60 0.66 -Area of Debridement (cm) - Length 1.0 1.1 -Area of Debridement (cm) - Width 0.6 0.6 -Total Square (Area) (cm) 0.60 0.66 -Tunneling No No -Undermining/Tunneling No No -Circular Undermining No No -Wound/Ulcer Outcome Not Healed Not Healed -Ulcer Cleansing Rinsed/ Rinsed/ Irrigated with Irrigated with Saline Saline -Foul Odor after Cleansing No No -Bioengineered Tissue No No -Bleeding Controlled with Pressure Pressure -Treatment Response Procedure Procedure Tolerated Well Tolerated Well -Offloading No No -Debridement - Subq, 1st 20sq cm Yes Yes Pain Scale: 0-10 Numeric Is Patient Pain Free? Yes Yes - Nurse 3 - General Ulcer D/C NN Start: 01/15/22 09:42 Freq: Status: Active Protocol: Activity Type Activity Date Activity User E-sign Co-sign Detail Recorded Client Recorded Date Recorded By Document 01/15/22 13:23 [id number] 01/15/22 13:23 KR Document 01/22/22 09:15 [facility] [id number] 01/22/22 09:16 [facility] 01/15/22 01/22/22 13:23 09:15 Wound Care Nurse 3 #6 l Lat Heel -Ulcer Cleansing Rinsed/ Rinsed/ Irrigated with Irrigated with Saline Saline -Foul Odor after Cleansing No -Primary Dressing Applied Aquacel AG 4x4 Promogran -Primary Dressing Covered/Secured with Dry Gauze, Dry Gauze & Secured with Roll Gauze, Tape Secured with Tape -Other Covering heel hat -Aquacel AG 4x4 1 -Promogran 1 Treatment Response Procedure Tolerated Well Pain Scale: 0-10 Numeric Is Patient Pain Free? Yes Yes - Visit Discharge Discharge Condition Stable Stable Ambulatory Status Wheelchair Wheelchair Transportation Private Auto Other tvt Assessment/Plan Assessment/Plan (1) Diabetic ulcer of left heel: CODE(S): E11.621 - Type 2 diabetes mellitus with foot ulcer; L97.429 - Non-pressure chronic ulcer of left heel and midfoot with unspecified severity QUALIFIERS: Diabetes mellitus type: type 2 Non-pressure ulcer stage: with fat layer exposed Qualified Code(s): E11.621 - Type 2 diabetes mellitus with foot ulcer; L97.422 - Non-pressure chronic ulcer of left heel and midfoot with fat layer exposed (2) Type 2 diabetes mellitus: CODE(S): E11.9 - Type 2 diabetes mellitus without complications QUALIFIERS: Diabetes 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 Debridement done as documented above, procedure was well-tolerated. Switch to Promogran, change daily. Continue Nurses's hat, surgical shoe and compression. Optimal diabetes control. Smoking cessation. Increase vitamin C, D and zinc. His questions were answered and he was advised to call with any further questions or concerns. Follow-up in 1 week. This note was generated with [employer] dictation software. It may contain incorrect words, spelling, and punctuation that were not noted in checking the note before signing.
[2022-02-05 08:50] VITALS: BP 112/70; PULSE 89; RESP 16; TEMP 35.9; BMI 40.6
--- NOTE | 2022-02-05 11:24 | PCM.WC.PN ---
History of Present Illness Date of Service: 02/05/22 Chief Complaint: Left Heel Ulcer History of Wound: Mr Ordoñez is a 56 yo who was last seen here a month ago for a left heel ulcer. At his last visit, he had culture done due to concern for an infection and he was switched to Aquacel Ag. He has been using that inconsistently and he states that he completed his antibiotic. Due to transportation issues, he had not been able to make it here for about a month. He feels well at this time, denies chills or fever. Progress of Wound: Missed his appointment again last week. He however states that he has been doing dressing changes daily. Has been applying Promogran daily Objective Data Objective Data Vital Signs: Vital Signs Temp Pulse Resp BP O2 Del Method 96.7 F L 89 16 112/70 Room Air 02/05/22 08:50 02/05/22 08:50 02/05/22 08:50 02/05/22 08:50 02/05/22 08:50 Oxygen Delivery Method Room Air Weight: 275 lb Body Mass Index (BMI) 40.6 Charges/Coding Procedures Integumentary 111xxx-113xx: 87446 Ana María subq tissue 20 sq cm/< Physical Exam Const alert, oriented x3 and no apparent distress General Appearance: cooperative and comfortable HEENT normocephalic Eyes General Eye: normal appearance of both eyes Neck General: normal visual inspection Chest inspection of chest normal Resp normal respiratory effort Back/Spine normal to inspection Extremity normal capillary refill, no calf tenderness and no pedal edema Skin no rashes or lesions noted and no jaundice Neuro oriented x3 and moves all extremities Debridement Note Debridement Note Wound debrided: Left Heel ( Lateral ) Type of Debridement: Excisional debridement Anesthesia Used: 4% Lidocaine Solution Depth: Down to and including healthy tissue and in the subcutaneous layer Percentage of wound debrided: 100 Instrument Used: 3mm curette Tissue Removed: Slough and devitalized tissue Severity: Fat Layer Exposed Amount of bleeding with debridement: Mild Bleeding Controlled with: Pressure Patient tolerated procedure: Patient tolerated procedure well Post-Debridement Measurements and Additional Note: Post-Debridement Measurements/Treatment [id number] - Nurse 1 - General Ulcer Assessment Start: 01/15/22 09:42 Freq: Status: Active Protocol: SANDRA Activity Type Activity Date Activity User E-sign Co-sign Detail Recorded Client Recorded Date Recorded By Document 01/15/22 09:43 KR [id number] 01/15/22 09:49 KR Document 01/22/22 08:43 BM [id number] 01/22/22 08:50 BMF Document 02/05/22 08:50 [facility] [id number] 02/05/22 08:58 BMF 01/15/22 01/22/22 02/05/22 09:43 08:43 08:50 - Today's Visit Information Type of service Follow-up Visit Follow-up Visit Follow-up Visit (Physician/CUSTOMER MARKETING ASSISTANT (Physician/CUSTOMER MARKETING ASSISTANT (Physician/CUSTOMER MARKETING ASSISTANT ) ) ) Arrival Mode Ambulatory Wheelchair Wheelchair Transfer Assistance Other Other Transfer Assist (Other) stand by 1 stand by Patient Identification Verified (Name & Yes Yes Yes ) Patient Requires Transmission-Based No No Precautions Height and Weight Body Mass Index (BMI) 40.6 40.6 40.6 BMI Classification Obese Obese Obese Vital Signs Temperature (97.8 F-99.1 F) 97.1 F L 96.2 F L 96.7 F L Temperature Source Temporal Temporal Temporal Pulse Rate (60-100) 87 85 89 Pulse Location Monitor Monitor Monitor Respiratory Rate (12-18) 16 16 Respiratory rate source Observation Observation Oxygen Delivery Method Room Air Room Air Blood Pressure (90/60-120/80) 128/74 H 147/66 H 112/70 Blood Pressure Mean (mm Hg) 92 93 84 Source Monitor Monitor Monitor Position Sitting Sitting Sitting Blood Pressure Location Left Arm Left Arm Right Forearm History Since Last Visit- (Skip if this is Patient's initial visit) Have you changed medications since your No No No last visit? Any new allergies or adverse reactions No No No Had a fall/change in ADL's that may No No No increase risk of falls Signs or symptoms of abuse and/or No No No neglect since last visit Have you been in the hospital since your No No No last visit? Has dressing in place as prescribed Yes Yes Yes Has compression in place as prescribed N/A No Yes Has offloadiing in place as prescribed N/A Yes N/A Experienced any changes in pain level or No No No management Left Footwear Regular Shoe Slipper Slipper Right Footwear Regular Shoe Slipper Slipper Pain Scale: 0-10 Numeric Is Patient Pain Free? Yes Yes Yes - Nurse 1 - General Ulcer Measurement Start: 01/15/22 09:42 Freq: Status: Active Protocol: Activity Type Activity Date Activity User E-sign Co-sign Detail Recorded Client Recorded Date Recorded By Document 01/15/22 09:43 KR [id number] 01/15/22 09:49 KR Document 01/22/22 08:43 BMF [id number] 01/22/22 08:50 BMF Document 02/05/22 08:50 BMF [id number] 02/05/22 08:58 BMF 01/15/22 01/22/22 02/05/22 09:43 08:43 08:50 Wound Center Nurse 1 #6 l Lat Heel -Combined with other wound No No -Current Size (cm) - Length 1.3 0.6 0.5 -Current Size (cm) - Width 1 0.4 0.5 -Current Size (cm) - Depth 0.1 0.2 0.2 -Total Square Cm 1.3 0.24 0.25 -Date of Last Picture (Recall this 01/22/22 02/05/22 field) -Photo Taken Yes Yes Yes -Epithelialization Small 1-33% None Present -Tunneling No No -Undermining/Tunneling No No -Circular Undermining No No -Classification - Thickness Full Thickness without Exposed Support Structure -Exudate Amt Small Small Medium -Exudate Type Serosanguineous Serous Serous -Wound Margin Thickened Distinct, Distinct, Outline Outline Attached Attached -Granulation Amt None Present (0 Large (67-100%) Medium (34-66%) %) -Granulation Quality [place] -Slough/Fibrin Yes Yes -Necrosis Amt Large (67-100%) Small (1-33%) Medium (34-66%) -Necrotic Tissue Type Adherent Slough Adherent Slough Adherent Slough -Texture (Caimla-wound Skin Appearance) Scarring Assessed, Assessed,Callus Scarring ,Scarring -Moisture (Camila-wound Skin Appearance) Dry/Scaly Assessed, Assessed,Dry/ Maceration,Dry/ Scaly Scaly -Color (Camila-wound Skin Appearance) Hemosiderin Assessed,Palor Assessed Staining -Temperature (Camila-wound Skin No Abnormality No Abnormality No Abnormality Appearance) (Pt Warm) (Pt Warm) (Pt Warm) -Tenderness on Palpation (Camila-wound No No No Skin Appearance) -Ulcer Cleansing Rinsed/ Rinsed/ Rinsed/ Irrigated with Irrigated with Irrigated with Saline Saline Saline -Foul Odor after Cleansing No No No -Anesthetic Used 5% Lidocaine 5% Lidocaine 5% Lidocaine Gel Gel Gel Lower Limb Edema Present Yes Left Calf (cm) 46.3 44.2 47.8 Left Ankle (cm) 27.9 25.8 29.6 WC - Nurse 2 - General Ulcer CM Notes Start: 01/15/22 09:42 Freq: Status: Active Protocol: Activity Type Activity Date Activity User E-sign Co-sign Detail Recorded Client Recorded Date Recorded By Document 01/15/22 10:17 MW [id number] 01/15/22 10:22 MW Document 01/22/22 08:58 MW [id number] 01/22/22 09:05 MW Document 02/05/22 09:38 MW [id number] 02/05/22 09:42 MW 01/15/22 01/22/22 02/05/22 10:17 08:58 09:38 Wound Center Nurse 2 #6 l Lat Heel -Time 10:18 08:59 09:38 -Correct Patient Yes Yes Yes -Correct Side, Site, Position Yes Yes Yes -Correct Procedure Yes Yes Yes -Procedure Performed Yes Yes Yes -Type of Procedure Debridement Debridement Debridement -Clinical Debridement Subcutaneous Subcutaneous Subcutaneous -Tissue Removed Subcutaneous Subcutaneous Subcutaneous -Post Debridement (cm) - Length 1.0 1.1 0.8 -Post Debridement (cm) - Width 0.6 0.6 0.5 -Post Debridement (cm) - Depth 0.2 0.2 0.1 -Total Square (Post) (cm) 0.60 0.66 0.40 -Area of Debridement (cm) - Length 1.0 1.1 0.8 -Area of Debridement (cm) - Width 0.6 0.6 0.5 -Total Square (Area) (cm) 0.60 0.66 0.40 -Tunneling No No No -Undermining/Tunneling No No No -Circular Undermining No No No -Wound/Ulcer Outcome Not Healed Not Healed Not Healed -Ulcer Cleansing Rinsed/ Rinsed/ Rinsed/ Irrigated with Irrigated with Irrigated with Saline Saline Saline -Foul Odor after Cleansing No No No -Bioengineered Tissue No No No -Bleeding Controlled with Pressure Pressure Pressure -Treatment Response Procedure Procedure Procedure Tolerated Well Tolerated Well Tolerated Well -Offloading No No No -Debridement - Subq, 1st 20sq cm Yes Yes Yes Pain Scale: 0-10 Numeric Is Patient Pain Free? Yes Yes Yes - Nurse 3 - General Ulcer D/C NN Start: 01/15/22 09:42 Freq: Status: Active Protocol: Activity Type Activity Date Activity User E-sign Co-sign Detail Recorded Client Recorded Date Recorded By Document 01/15/22 13:23 KR [id number] 01/15/22 13:23 KR Document 01/22/22 09:15 [facility] [id number] 01/22/22 09:16 [facility] Document 02/05/22 09:53 [facility] [id number] 02/05/22 09:54 [facility] 01/15/22 01/22/22 02/05/22 13:23 09:15 09:53 Wound Care Nurse 3 #6 l Lat Heel -Ulcer Cleansing Rinsed/ Rinsed/ Rinsed/ Irrigated with Irrigated with Irrigated with Saline Saline Saline -Foul Odor after Cleansing No No -Primary Dressing Applied Aquacel AG 4x4 Promogran Promogran -Other Dressing heel hat -Primary Dressing Covered/Secured with Dry Gauze, Dry Gauze & Dry Gauze & Secured with Roll Gauze, Roll Gauze, Tape Secured with Secured with Tape Tape -Other Covering heel hat -Aquacel AG 4x4 1 -Promogran 1 1 Left -Compression Wrap Frank Wrap Treatment Response Procedure Procedure Tolerated Well Tolerated Well Pain Scale: 0-10 Numeric Is Patient Pain Free? Yes Yes Yes - Visit Discharge Discharge Condition Stable Stable Stable Ambulatory Status Wheelchair Wheelchair Wheelchair Transportation Private Auto Other tvt tvt Assessment/Plan Assessment/Plan (1) Diabetic ulcer of left heel: CODE(S): E11.621 - Type 2 diabetes mellitus with foot ulcer; L97.429 - Non-pressure chronic ulcer of left heel and midfoot with unspecified severity QUALIFIERS: Diabetes mellitus type: type 2 Non-pressure ulcer stage: with fat layer exposed Qualified Code(s): E11.621 - Type 2 diabetes mellitus with foot ulcer; L97.422 - Non-pressure chronic ulcer of left heel and midfoot with fat layer exposed (2) Type 2 diabetes mellitus: CODE(S): E11.9 - Type 2 diabetes mellitus without complications QUALIFIERS: Diabetes mellitus prison insulin use: with buttermaker continuous churn use Diabetes mellitus complication status: with skin complications Diabetes mellitus complication detail: with foot ulcer Qualified Code(s): E11.621 - Type 2 diabetes mellitus with foot ulcer; L97.509 - Non-pressure chronic ulcer of other part of unspecified foot with unspecified severity; Z79.4 - [facility] (current) use of insulin (3) Tobacco use: CODE(S): Z72.0 - Tobacco use PLAN: Plan Some improvement noted. Debridement done as documented above, procedure was well-tolerated. Continue Promogran, change daily. Continue Nurses's hat, surgical shoe and compression. Optimal diabetes control. Smoking cessation. Increase vitamin C, D and zinc. His questions were answered and he was advised to call with any further questions or concerns. Follow-up in 1 week. This note was generated with [employer] dictation software. It may contain incorrect words, spelling, and punctuation that were not noted in checking the note before signing.
== END 2022-02-13 23:59 | disposition home or self-care (01) ==
LOC: WC 09:00
PROVIDERS: PCP Nurse Practitioner Adult Health; Visit Provider Internal Medicine
DX: E11.621 Type 2 diabetes mellitus with foot ulcer (principal); L97.422 Non-pressure chronic ulcer of left heel and midfoot with fat layer exposed; F31.9 Bipolar disorder, unspecified; E11.40 Type 2 diabetes mellitus with diabetic neuropathy, unspecified; Z79.4 Long term (current) use of insulin; E78.00 Pure hypercholesterolemia, unspecified; D64.9 Anemia, unspecified; I10 Essential (primary) hypertension; Z79.82 Long term (current) use of aspirin; F32.A Depression, unspecified; Z79.899 Other long term (current) drug therapy; Z79.84 Long term (current) use of oral hypoglycemic drugs; F17.210 Nicotine dependence, cigarettes, uncomplicated
CPT/HCPCS: 11042

== ENCOUNTER 2022-03-05 09:45 | Outpatient (RCR) | payer MEDICARE, MEDICAID, SELFPAY ==
[2022-02-14 00:18] VITALS: BP 112/70; PULSE 89; RESP 16; TEMP 35.9; BMI 40.6
[2022-02-19 09:39] VITALS: BP 90/52; PULSE 77; RESP 18; TEMP 36.1; BMI 40.6
--- NOTE | 2022-02-19 10:18 | PCM.WC.PN ---
History of Present Illness Date of Service: 02/19/22 Chief Complaint: Left Heel Ulcer History of Wound: Mr Ordoñez is a 56 yo who was last seen here a month ago for a left heel ulcer. At his last visit, he had culture done due to concern for an infection and he was switched to Aquacel Ag. He has been using that inconsistently and he states that he completed his antibiotic. Due to transportation issues, he had not been able to make it here for about a month. He feels well at this time, denies chills or fever. Progress of Wound: Improving. No new concerns at this time. Objective Data Objective Data Vital Signs: Vital Signs Temp Pulse Resp BP 97 F L 77 18 90/52 L 02/19/22 09:39 02/19/22 09:39 02/19/22 09:39 02/19/22 09:39 Weight: 275 lb Body Mass Index (BMI) 40.6 Charges/Coding Procedures Integumentary 111xxx-113xx: 11371 Ana María subq tissue 20 sq cm/< Physical Exam Const alert, oriented x3 and no apparent distress General Appearance: cooperative and comfortable HEENT normocephalic Eyes General Eye: normal appearance of both eyes Neck General: normal visual inspection Chest inspection of chest normal Resp normal respiratory effort Back/Spine normal to inspection Extremity normal capillary refill, no calf tenderness and no pedal edema Skin no rashes or lesions noted and no jaundice Neuro oriented x3 and moves all extremities Debridement Note Debridement Note Wound debrided: Left heel Type of Debridement: Excisional debridement Anesthesia Used: 4% Lidocaine Solution Depth: Down to and including healthy tissue and in the subcutaneous layer Percentage of wound debrided: 100 Instrument Used: 3mm curette Tissue Removed: Slough and devitalized tissue Severity: Fat Layer Exposed Amount of bleeding with debridement: Mild Bleeding Controlled with: Pressure Patient tolerated procedure: Patient tolerated procedure well Post-Debridement Measurements and Additional Note: Post-Debridement Measurements/Treatment - Nurse 1 - General Ulcer Assessment Start: 02/19/22 09:37 Freq: Status: Active Protocol: SANDRA Activity Type Activity Date Activity User E-sign Co-sign Detail Recorded Client Recorded Date Recorded By Document 02/19/22 09:39 RB [id number] 02/19/22 09:46 RB 02/19/22 09:39 WC - Today's Visit Information Type of service Follow-up Visit (Physician/OFFICE ADMINISTRATIVE ASSISTANT ) Arrival Mode Wheelchair Transfer Assistance Manual Patient Identification Verified (Name & Yes ) Patient Requires Transmission-Based No Precautions Safety Precautions NA Height and Weight Body Mass Index (BMI) 40.6 BMI Classification Obese Vital Signs Temperature (97.8 F-99.1 F) 97 F L Temperature Source Temporal Pulse Rate (60-100) 77 Pulse Location Monitor Respiratory Rate (12-18) 18 Respiratory rate source Observation Blood Pressure (90/60-120/80) 90/52 L Blood Pressure Mean (mm Hg) 64 Source Monitor Position Semi-Fowlers Blood Pressure Location Left Arm History Since Last Visit- (Skip if this is Patient's initial visit) Have you changed medications since your No last visit? Any new allergies or adverse reactions No Had a fall/change in ADL's that may No increase risk of falls Signs or symptoms of abuse and/or No neglect since last visit Have you been in the hospital since your No last visit? Has dressing in place as prescribed Yes Has compression in place as prescribed No Has offloadiing in place as prescribed No Experienced any changes in pain level or No management Pain Scale: 0-10 Numeric Is Patient Pain Free? No left heel -Description Aching -Intensity 7 -Duration (hours) Acute -Pain Behavior Withdrawal from Touch -Pain Aggravating Factors ADL's -Alleviating Factors/Interventions Medication WC - Nurse 1 - General Ulcer Measurement Start: 02/19/22 09:37 Freq: Status: Active Protocol: Activity Type Activity Date Activity User E-sign Co-sign Detail Recorded Client Recorded Date Recorded By Document 02/19/22 09:39 [id number] 02/19/22 09:46 RB 02/19/22 09:39 Wound Center Nurse 1 #6 l Lat Heel -Combined with other wound No -Current Size (cm) - Length 0.5 -Current Size (cm) - Width 0.5 -Current Size (cm) - Depth 0.1 -Total Square Cm 0.25 -Photo Taken Yes -Epithelialization Small 1-33% -Tunneling No -Undermining/Tunneling No -Circular Undermining No -Exudate Amt Medium -Exudate Type Serosanguineous -Wound Margin Distinct, Outline Attached -Granulation Amt Large (67-100%) -Granulation Quality [place] -Slough/Fibrin Yes -Necrosis Amt Small (1-33%) -Necrotic Tissue Type Adherent Slough -Structure Exposed N/A -Texture (Camila-wound Skin Appearance) Assessed -Moisture (Camila-wound Skin Appearance) Dry/Scaly -Color (Camila-wound Skin Appearance) Assessed -Temperature (Camila-wound Skin No Abnormality Appearance) (Pt Warm) -Tenderness on Palpation (Camila-wound No Skin Appearance) -Ulcer Cleansing Rinsed/ Irrigated with Saline -Foul Odor after Cleansing No -Anesthetic Used 5% Lidocaine Gel WC - Nurse 2 - General Ulcer CM Notes Start: 02/19/22 09:37 Freq: Status: Active Protocol: Activity Type Activity Date Activity User E-sign Co-sign Detail Recorded Client Recorded Date Recorded By Document 02/19/22 09:54 MW [id number] 02/19/22 09:58 MW 02/19/22 09:54 Wound Center Nurse 2 -Time 09:56 -Correct Patient Yes -Correct Side, Site, Position Yes -Correct Procedure Yes -Procedure Performed Yes -Type of Procedure Debridement -Clinical Debridement Subcutaneous -Tissue Removed Subcutaneous -Post Debridement (cm) - Length 0.4 -Post Debridement (cm) - Width 0.4 -Post Debridement (cm) - Depth 0.1 -Total Square (Post) (cm) 0.16 -Area of Debridement (cm) - Length 0.4 -Area of Debridement (cm) - Width 0.4 -Total Square (Area) (cm) 0.16 -Tunneling No -Undermining/Tunneling No -Circular Undermining No -Wound/Ulcer Outcome Not Healed -Ulcer Cleansing Rinsed/ Irrigated with Saline -Foul Odor after Cleansing No -Bioengineered Tissue No -Bleeding Controlled with Pressure -Treatment Response Procedure Tolerated Well -Offloading No -Debridement - Subq, 1st 20sq cm Yes Pain Scale: 0-10 Numeric Is Patient Pain Free? Yes - Nurse 3 - General Ulcer D/C NN Start: 02/19/22 09:37 Freq: Status: Active Protocol: Activity Type Activity Date Activity User E-sign Co-sign Detail Recorded Client Recorded Date Recorded By Document 02/19/22 10:03 [facility] [id number] 02/19/22 10:06 [facility] 02/19/22 10:03 Wound Care Nurse 3 #6 l Lat Heel -Ulcer Cleansing Rinsed/ Irrigated with Saline -Foul Odor after Cleansing No -Primary Dressing Applied Promogran -Primary Dressing Covered/Secured with Dry Gauze & Roll Gauze, Secured with Tape -Other Covering heel hat -Promogran 1 Left -Compression Wrap Frank Wrap -Other frank to secure Treatment Response Procedure Tolerated Well Pain Scale: 0-10 Numeric Is Patient Pain Free? Yes WC - Visit Discharge Discharge Condition Stable Ambulatory Status Wheelchair Other TVT Assessment/Plan Assessment/Plan (1) Diabetic ulcer of left heel: CODE(S): E11.621 - Type 2 diabetes mellitus with foot ulcer; L97.429 - Non-pressure chronic ulcer of left heel and midfoot with unspecified severity QUALIFIERS: Diabetes mellitus type: type 2 Non-pressure ulcer stage: with fat layer exposed Qualified Code(s): E11.621 - Type 2 diabetes mellitus with foot ulcer; L97.422 - Non-pressure chronic ulcer of left heel and midfoot with fat layer exposed (2) Type 2 diabetes mellitus: CODE(S): E11.9 - Type 2 diabetes mellitus without complications QUALIFIERS: Diabetes mellitus nursing home insulin use: with nursing home use Diabetes mellitus complication status: with skin complications Diabetes mellitus complication detail: with foot ulcer Qualified Code(s): E11.621 - Type 2 diabetes mellitus with foot ulcer; L97.509 - Non-pressure chronic ulcer of other part of unspecified foot with unspecified severity; Z79.4 - [facility] (current) use of insulin (3) Tobacco use: CODE(S): Z72.0 - Tobacco use PLAN: Plan Improving. Debridement done as documented above, procedure was well-tolerated. Continue Promogran, change daily. Continue Nurses's hat, surgical shoe and compression. Optimal diabetes control. Smoking cessation. Increase vitamin C, D and zinc. His questions were answered and he was advised to call with any further questions or concerns. Follow-up in 1 week. This note was generated with [employer] software. It may contain incorrect words, spelling, and punctuation that were not noted in checking the note before signing.
[2022-02-26 09:45] VITALS: BP 110/52; PULSE 80; RESP 18; TEMP 36.2; BMI 40.6
--- NOTE | 2022-02-26 12:38 | PCM.WC.PN ---
History of Present Illness Date of Service: 02/26/22 Chief Complaint: Left Heel Ulcer History of Wound: Mr Ordoñez is a 56 yo who was last seen here a month ago for a left heel ulcer. At his last visit, he had culture done due to concern for an infection and he was switched to Aquacel Ag. He has been using that inconsistently and he states that he completed his antibiotic. Due to transportation issues, he had not been able to make it here for about a month. He feels well at this time, denies chills or fever. Progress of Wound: Stable. No new concerns at this time. Objective Data Objective Data Vital Signs: Vital Signs Temp Pulse Resp BP 97.2 F L 80 18 110/52 L 02/26/22 09:45 02/26/22 09:45 02/26/22 09:45 02/26/22 09:45 Weight: 275 lb Body Mass Index (BMI) 40.6 Charges/Coding Procedures Integumentary 111xxx-113xx: 90106 Ana María subq tissue 20 sq cm/< Physical Exam Const alert, oriented x3 and no apparent distress General Appearance: cooperative and comfortable HEENT normocephalic Eyes General Eye: normal appearance of both eyes Neck General: normal visual inspection Chest inspection of chest normal Resp normal respiratory effort Back/Spine normal to inspection Extremity normal capillary refill, no calf tenderness and no pedal edema Skin no rashes or lesions noted and no jaundice Neuro oriented x3 and moves all extremities Debridement Note Debridement Note Wound debrided: Left Heel Type of Debridement: Excisional debridement Anesthesia Used: 4% Lidocaine Solution Depth: Down to and including healthy tissue and in the subcutaneous layer Percentage of wound debrided: 100 Instrument Used: 3mm curette Tissue Removed: Slough and devitalized tissue Severity: Fat Layer Exposed Amount of bleeding with debridement: Mild Bleeding Controlled with: Pressure Patient tolerated procedure: Patient tolerated procedure well Post-Debridement Measurements and Additional Note: Post-Debridement Measurements/Treatment YAHAIRA - Nurse 1 - General Ulcer Assessment Start: 02/19/22 09:37 Freq: Status: Active Protocol: SANDRA Activity Type Activity Date Activity User E-sign Co-sign Detail Recorded Client Recorded Date Recorded By Document 02/19/22 09:39 RB [id number] 02/19/22 09:46 RB Document 02/26/22 09:45 DL [id number] 02/26/22 09:55 DL 02/19/22 02/26/22 09:39 09:45 WC - Today's Visit Information Type of service Follow-up Visit Follow-up Visit (Physician/WALKING DRAGLINE OPERATOR (Physician/WALKING DRAGLINE OPERATOR ) ) Arrival Mode Wheelchair Wheelchair Transfer Assistance Manual Manual Transfer Assist (Other) x1 Patient Identification Verified (Name & Yes Yes ) Patient Requires Transmission-Based No No Precautions Safety Precautions NA Finger Stick Blood Sugar(mg/dl) (if 142 indicated): Blood Sugar Stated by Patient Height and Weight Body Mass Index (BMI) 40.6 40.6 BMI Classification Obese Obese Vital Signs Temperature (97.8 F-99.1 F) 97 F L 97.2 F L Temperature Source Temporal Temporal Pulse Rate (60-100) 77 80 Pulse Location Monitor Monitor Respiratory Rate (12-18) 18 18 Respiratory rate source Observation Observation Blood Pressure (90/60-120/80) 90/52 L 110/52 L Blood Pressure Mean (mm Hg) 64 71 Source Monitor Monitor Position Semi-Fowlers Blood Pressure Location Left Arm History Since Last Visit- (Skip if this is Patient's initial visit) Have you changed medications since your No No last visit? Any new allergies or adverse reactions No No Had a fall/change in ADL's that may No No increase risk of falls Signs or symptoms of abuse and/or No No neglect since last visit Have you been in the hospital since your No No last visit? Has dressing in place as prescribed Yes Yes Has compression in place as prescribed No N/A Has offloadiing in place as prescribed No Yes Experienced any changes in pain level or No No management Pain Scale: 0-10 Numeric Is Patient Pain Free? No Yes left heel -Description Aching -Intensity 7 -Duration (hours) Acute -Pain Behavior Withdrawal from Touch -Pain Aggravating Factors ADL's -Alleviating Factors/Interventions Medication WC - Nurse 1 - General Ulcer Measurement Start: 02/19/22 09:37 Freq: Status: Active Protocol: Activity Type Activity Date Activity User E-sign Co-sign Detail Recorded Client Recorded Date Recorded By Document 02/19/22 09:39 RB [id number] 02/19/22 09:46 RB Document 02/26/22 09:45 DL [id number] 02/26/22 09:55 DL 02/19/22 02/26/22 09:39 09:45 Wound Center Nurse 1 #6 l Lat Heel -Combined with other wound No -Current Size (cm) - Length 0.5 0.3 -Current Size (cm) - Width 0.5 0.2 -Current Size (cm) - Depth 0.1 0.1 -Total Square Cm 0.25 0.06 -Photo Taken Yes Yes -Epithelialization Small 1-33% -Tunneling No -Undermining/Tunneling No -Circular Undermining No -Exudate Amt Medium Small -Exudate Type Serosanguineous Serosanguineous -Wound Margin Distinct, Distinct, Outline Outline Attached Attached -Granulation Amt Large (67-100%) Small (1-33%) -Granulation Quality Emerado Emerado -Slough/Fibrin Yes -Necrosis Amt Small (1-33%) Small (1-33%) -Necrotic Tissue Type Adherent Slough Adherent Slough -Structure Exposed N/A N/A -Texture (Camila-wound Skin Appearance) Assessed Scarring -Moisture (Camila-wound Skin Appearance) Dry/Scaly Dry/Scaly -Color (Camila-wound Skin Appearance) Assessed No Abnormality -Temperature (Camila-wound Skin No Abnormality No Abnormality Appearance) (Pt Warm) (Pt Warm) -Tenderness on Palpation (Camila-wound No No Skin Appearance) -Ulcer Cleansing Rinsed/ Rinsed/ Irrigated with Irrigated with Saline Saline -Foul Odor after Cleansing No No -Anesthetic Used 5% Lidocaine 5% Lidocaine Gel Gel Left Calf (cm) 48 Left Ankle (cm) 27.7 WC - Nurse 2 - General Ulcer CM Notes Start: 02/19/22 09:37 Freq: Status: Active Protocol: Activity Type Activity Date Activity User E-sign Co-sign Detail Recorded Client Recorded Date Recorded By Document 02/19/22 09:54 MW [id number] 02/19/22 09:58 MW Document 02/26/22 10:22 MW [id number] 02/26/22 10:27 MW 02/19/22 02/26/22 09:54 10:22 Wound Center Nurse 2 #6 l Lat Heel -Time 09:56 10:22 -Correct Patient Yes Yes -Correct Side, Site, Position Yes Yes -Correct Procedure Yes Yes -Procedure Performed Yes Yes -Type of Procedure Debridement Debridement -Clinical Debridement Subcutaneous Subcutaneous -Tissue Removed Subcutaneous Subcutaneous -Post Debridement (cm) - Length 0.4 0.4 -Post Debridement (cm) - Width 0.4 0.6 -Post Debridement (cm) - Depth 0.1 0.1 -Total Square (Post) (cm) 0.16 0.24 -Area of Debridement (cm) - Length 0.4 0.4 -Area of Debridement (cm) - Width 0.4 0.6 -Total Square (Area) (cm) 0.16 0.24 -Tunneling No No -Undermining/Tunneling No No -Circular Undermining No No -Wound/Ulcer Outcome Not Healed Not Healed -Ulcer Cleansing Rinsed/ Rinsed/ Irrigated with Irrigated with Saline Saline -Foul Odor after Cleansing No No -Bioengineered Tissue No No -Bleeding Controlled with Pressure Pressure -Treatment Response Procedure Procedure Tolerated Well Tolerated Well -Offloading No No -Debridement - Subq, 1st 20sq cm Yes Yes Pain Scale: 0-10 Numeric Is Patient Pain Free? Yes Yes - Nurse 3 - General Ulcer D/C NN Start: 02/19/22 09:37 Freq: Status: Active Protocol: Activity Type Activity Date Activity User E-sign Co-sign Detail Recorded Client Recorded Date Recorded By Document 02/19/22 10:03 [facility] [id number] 02/19/22 10:06 [facility] Document 02/26/22 10:37 DL [id number] 02/26/22 10:40 DL 02/19/22 02/26/22 10:03 10:37 Wound Care Nurse 3 #6 l Lat Heel -Ulcer Cleansing Rinsed/ Rinsed/ Irrigated with Irrigated with Saline Saline -Foul Odor after Cleansing No No -Primary Dressing Applied Promogran Promogran -Primary Dressing Covered/Secured with Dry Gauze & Roll Gauze, Secured with Tape -Other Covering heel hat Nurses Hat -Promogran 1 1 Left -Compression Wrap Frank Wrap Frank Wrap -Other frank to secure Treatment Response Procedure Procedure Tolerated Well Tolerated Well Pain Scale: 0-10 Numeric Is Patient Pain Free? Yes Yes WC - Visit Discharge Discharge Condition Stable Stable Ambulatory Status Wheelchair Wheelchair Transportation Private Auto Notes: Dressing applied per Huyen Whaley RN today. Facility Type Skilled Nursing Care Facility Other TVT Orders Sent Yes Assessment/Plan Assessment/Plan (1) Diabetic ulcer of left heel: CODE(S): E11.621 - Type 2 diabetes mellitus with foot ulcer; L97.429 - Non-pressure chronic ulcer of left heel and midfoot with unspecified severity QUALIFIERS: Diabetes mellitus type: type 2 Non-pressure ulcer stage: with fat layer exposed Qualified Code(s): E11.621 - Type 2 diabetes mellitus with foot ulcer; L97.422 - Non-pressure chronic ulcer of left heel and midfoot with fat layer exposed (2) Type 2 diabetes mellitus: CODE(S): E11.9 - Type 2 diabetes mellitus without complications QUALIFIERS: Diabetes mellitus care home insulin use: with care home use Diabetes mellitus complication status: with skin complications Diabetes mellitus complication detail: with foot ulcer Qualified Code(s): E11.621 - Type 2 diabetes mellitus with foot ulcer; L97.509 - Non-pressure chronic ulcer of other part of unspecified foot with unspecified severity; Z79.4 - emt intermediate (current) use of insulin (3) Tobacco use: CODE(S): Z72.0 - Tobacco use PLAN: Plan No significant change in the past week. Debridement done as documented above, procedure was well-tolerated. Continue Promogran, change daily. Continue Nurses's hat, surgical shoe and compression. Optimal diabetes control. Smoking cessation. Increase vitamin C, D and zinc. His questions were answered and he was advised to call with any further questions or concerns. Follow-up in 1 week. This note was generated with [employer] dictation software. It may contain incorrect words, spelling, and punctuation that were not noted in checking the note before signing.
[2022-03-05 10:02] VITALS: BP 115/61; PULSE 78; RESP 20; TEMP 35.9; BMI 40.6
--- NOTE | 2022-03-05 12:27 | PN.PCM_ITS ---
History of Present Illness Date of Service: 03/05/22 Chief Complaint: Left Heel Ulcer History of Wound: Mr Ordoñez is a 56 yo who was last seen here a month ago for a left heel ulcer. At his last visit, he had culture done due to concern for an infection and he was switched to Aquacel Ag. He has been using that inconsistently and he states that he completed his antibiotic. Due to transportation issues, he had not been able to make it here for about a month. He feels well at this time, denies chills or fever. Progress of Wound: Improving. No new concerns at this time. Objective Data Objective Data Vital Signs: Vital Signs Temp Pulse Resp BP 96.7 F L 78 20 H 115/61 03/05/22 10:02 03/05/22 10:02 03/05/22 10:02 03/05/22 10:02 Weight: 275 lb Body Mass Index (BMI) 40.6 Charges/Coding Procedures Integumentary 111xxx-113xx: 21136 Ana María subq tissue 20 sq cm/< Physical Exam Const alert, oriented x3 and no apparent distress General Appearance: cooperative and comfortable HEENT normocephalic Eyes General Eye: normal appearance of both eyes Neck General: normal visual inspection Chest inspection of chest normal Resp normal respiratory effort Back/Spine normal to inspection Extremity normal capillary refill, no calf tenderness and no pedal edema Skin no rashes or lesions noted and no jaundice Neuro oriented x3 and moves all extremities Debridement Note Debridement Note Wound debrided: Left Heel Type of Debridement: Excisional debridement Anesthesia Used: 4% Lidocaine Solution Depth: Down to and including healthy tissue and in the subcutaneous layer Percentage of wound debrided: 100 Instrument Used: 3mm curette Tissue Removed: Slough and devitalized tissue Amount of bleeding with debridement: Mild Bleeding Controlled with: Pressure Patient tolerated procedure: Patient tolerated procedure well Post-Debridement Measurements and Additional Note: Post-Debridement Measurements/Treatment YAHAIRA - Nurse 1 - General Ulcer Assessment Start: 02/19/22 09:37 Freq: Status: Active Protocol: SANDRA Activity Type Activity Date Activity User E-sign Co-sign Detail Recorded Client Recorded Date Recorded By Document 02/19/22 09:39 RB [id number] 02/19/22 09:46 RB Document 02/26/22 09:45 DL [id number] 02/26/22 09:55 DL Document 03/05/22 10:02 DL [id number] 03/05/22 10:12 DL 02/19/22 02/26/22 03/05/22 09:39 09:45 10:02 WC - Today's Visit Information Type of service Follow-up Visit Follow-up Visit Follow-up Visit (Physician/CLINICAL CYTOGENETICIST (Physician/CLINICAL CYTOGENETICIST (Physician/CLINICAL CYTOGENETICIST ) ) ) Arrival Mode Wheelchair Wheelchair Wheelchair Transfer Assistance Manual Manual None Transfer Assist (Other) x1 Patient Identification Verified (Name & Yes Yes Yes ) Patient Requires Transmission-Based No No No Precautions Safety Precautions NA Finger Stick Blood Sugar(mg/dl) (if 142 135 indicated): Blood Sugar Stated by Stated by Patient Patient Height and Weight Body Mass Index (BMI) 40.6 40.6 40.6 BMI Classification Obese Obese Obese Vital Signs Temperature (97.8 F-99.1 F) 97 F L 97.2 F L 96.7 F L Temperature Source Temporal Temporal Temporal Pulse Rate (60-100) 77 80 78 Pulse Location Monitor Monitor Respiratory Rate (12-18) 18 18 20 H Respiratory rate source Observation Observation Observation Blood Pressure (90/60-120/80) 90/52 L 110/52 L 115/61 Blood Pressure Mean (mm Hg) 64 71 79 Source Monitor Monitor Monitor Position Semi-Fowlers Blood Pressure Location Left Arm History Since Last Visit- (Skip if this is Patient's initial visit) Have you changed medications since your No No No last visit? Any new allergies or adverse reactions No No No Had a fall/change in ADL's that may No No No increase risk of falls Signs or symptoms of abuse and/or No No No neglect since last visit Have you been in the hospital since your No No No last visit? Has dressing in place as prescribed Yes Yes Yes Has compression in place as prescribed No N/A Yes Has offloadiing in place as prescribed No Yes Yes Experienced any changes in pain level or No No No management Pain Scale: 0-10 Numeric Is Patient Pain Free? No Yes Yes left heel -Description Aching -Intensity 7 -Duration (hours) Acute -Pain Behavior Withdrawal from Touch -Pain Aggravating Factors ADL's -Alleviating Factors/Interventions Medication WC - Nurse 1 - General Ulcer Measurement Start: 02/19/22 09:37 Freq: Status: Active Protocol: Activity Type Activity Date Activity User E-sign Co-sign Detail Recorded Client Recorded Date Recorded By Document 02/19/22 09:39 RB [id number] 02/19/22 09:46 RB Document 02/26/22 09:45 DL [id number] 02/26/22 09:55 DL Document 03/05/22 10:02 DL [id number] 03/05/22 10:12 DL 02/19/22 02/26/22 03/05/22 09:39 09:45 10:02 Wound Center Nurse 1 #6 l Lat Heel -Combined with other wound No -Combined with (Name of Wound-Exactly .1 as it is documented) -Current Size (cm) - Length 0.5 0.3 0.1 -Current Size (cm) - Width 0.5 0.2 0.1 -Current Size (cm) - Depth 0.1 0.1 -Total Square Cm 0.25 0.06 0.01 -Photo Taken Yes Yes Yes -Epithelialization Small 1-33% -Tunneling No -Undermining/Tunneling No -Circular Undermining No -Exudate Amt Medium Small None Present -Exudate Type Serosanguineous Serosanguineous -Wound Margin Distinct, Distinct, Flat & Intact Outline Outline Attached Attached -Granulation Amt Large (67-100%) Small (1-33%) Large (67-100%) -Granulation Quality [place] Court[place] Pale -Slough/Fibrin Yes -Necrosis Amt Small (1-33%) Small (1-33%) Small (1-33%) -Necrotic Tissue Type Adherent Slough Adherent Slough Adherent Slough -Structure Exposed N/A N/A N/A -Texture (Camila-wound Skin Appearance) Assessed Scarring Scarring -Moisture (Camila-wound Skin Appearance) Dry/Scaly Dry/Scaly Dry/Scaly -Color (Camila-wound Skin Appearance) Assessed No Abnormality Hemosiderin Staining -Temperature (Camila-wound Skin No Abnormality No Abnormality No Abnormality Appearance) (Pt Warm) (Pt Warm) (Pt Warm) -Tenderness on Palpation (Camila-wound No No Skin Appearance) -Ulcer Cleansing Rinsed/ Rinsed/ Soap and Water Irrigated with Irrigated with Saline Saline -Foul Odor after Cleansing No No No -Anesthetic Used 5% Lidocaine 5% Lidocaine 5% Lidocaine Gel Gel Gel Left Calf (cm) 48 45.5 Left Ankle (cm) 27.7 26.5 WC - Nurse 2 - General Ulcer CM Notes Start: 02/19/22 09:37 Freq: Status: Active Protocol: Activity Type Activity Date Activity User E-sign Co-sign Detail Recorded Client Recorded Date Recorded By Document 02/19/22 09:54 MW [id number] 02/19/22 09:58 MW Document 02/26/22 10:22 MW [id number] 02/26/22 10:27 MW Document 03/05/22 10:41 MW [id number] 03/05/22 10:51 MW 02/19/22 02/26/22 03/05/22 09:54 10:22 10:41 Wound Center Nurse 2 #6 l Lat Heel -Time 09:56 10:22 10:42 -Correct Patient Yes Yes Yes -Correct Side, Site, Position Yes Yes Yes -Correct Procedure Yes Yes Yes -Procedure Performed Yes Yes Yes -Type of Procedure Debridement Debridement Debridement -Clinical Debridement Subcutaneous Subcutaneous Subcutaneous -Tissue Removed Subcutaneous Subcutaneous Subcutaneous -Post Debridement (cm) - Length 0.4 0.4 0.4 -Post Debridement (cm) - Width 0.4 0.6 0.4 -Post Debridement (cm) - Depth 0.1 0.1 0.1 -Total Square (Post) (cm) 0.16 0.24 0.16 -Area of Debridement (cm) - Length 0.4 0.4 0.4 -Area of Debridement (cm) - Width 0.4 0.6 0.4 -Total Square (Area) (cm) 0.16 0.24 0.16 -Tunneling No No No -Undermining/Tunneling No No No -Circular Undermining No No No -Wound/Ulcer Outcome Not Healed Not Healed Not Healed -Ulcer Cleansing Rinsed/ Rinsed/ Rinsed/ Irrigated with Irrigated with Irrigated with Saline Saline Saline -Foul Odor after Cleansing No No No -Bioengineered Tissue No No No -Bleeding Controlled with Pressure Pressure Pressure -Treatment Response Procedure Procedure Procedure Tolerated Well Tolerated Well Tolerated Well -Offloading No No No -Debridement - Subq, 1st 20sq cm Yes Yes Yes Pain Scale: 0-10 Numeric Is Patient Pain Free? Yes Yes Yes WC - Nurse 3 - General Ulcer D/C NN Start: 02/19/22 09:37 Freq: Status: Active Protocol: Activity Type Activity Date Activity User E-sign Co-sign Detail Recorded Client Recorded Date Recorded By Document 02/19/22 10:03 BMF [id number] 02/19/22 10:06 BMF Document 02/26/22 10:37 DL [id number] 02/26/22 10:40 DL 02/19/22 02/26/22 10:03 10:37 Wound Care Nurse 3 #6 l Lat Heel -Ulcer Cleansing Rinsed/ Rinsed/ Irrigated with Irrigated with Saline Saline -Foul Odor after Cleansing No No -Primary Dressing Applied Promogran Promogran -Primary Dressing Covered/Secured with Dry Gauze & Roll Gauze, Secured with Tape -Other Covering heel hat Nurses Hat -Promogran 1 1 Left -Compression Wrap Frank Wrap Frank Wrap -Other frank to secure Treatment Response Procedure Procedure Tolerated Well Tolerated Well Pain Scale: 0-10 Numeric Is Patient Pain Free? Yes Yes WC - Visit Discharge Discharge Condition Stable Stable Ambulatory Status Wheelchair Wheelchair Transportation Private Auto Notes: Dressing applied per Huyen Whaley RN today. Facility Type Skilled Nursing Care Facility Other TVT Orders Sent Yes Assessment/Plan Assessment/Plan (1) Diabetic ulcer of left heel: CODE(S): E11.621 - Type 2 diabetes mellitus with foot ulcer; L97.429 - Non-pressure chronic ulcer of left heel and midfoot with unspecified severity QUALIFIERS: Diabetes mellitus type: type 2 Non-pressure ulcer stage: with fat layer exposed Qualified Code(s): E11.621 - Type 2 diabetes mellitus with foot ulcer; L97.422 - Non-pressure chronic ulcer of left heel and midfoot with fat layer exposed (2) Type 2 diabetes mellitus: CODE(S): E11.9 - Type 2 diabetes mellitus without complications QUALIFIERS: Diabetes mellitus [facility]p insulin use: with m[facility]p use Diabetes mellitus complication status: with skin complications Diabetes mellitus complication detail: with foot ulcer Qualified Code(s): E11.621 - Type 2 diabetes mellitus with foot ulcer; L97.509 - Non-pressure chronic ulcer of other part of unspecified foot with unspecified severity; Z79.4 - supervisor intermediates (current) use of insulin (3) Tobacco use: CODE(S): Z72.0 - Tobacco use PLAN: Plan Some improvement noted. Debridement done as documented above, procedure was well-tolerated. Continue Promogran, change daily. Continue Nurses's hat, surgical shoe and compression. Optimal diabetes control. Smoking cessation. Increase vitamin C, D and zinc. His questions were answered and he was advised to call with any further questions or concerns. Follow-up in 1 week. This note was generated with [employer] dictation software. It may contain incorrect words, spelling, and punctuation that were not noted in checking the note before signing.
== END 2022-03-16 23:59 | disposition home or self-care (01) ==
LOC: WC 09:45
PROVIDERS: PCP Nurse Practitioner Adult Health; Visit Provider Internal Medicine
DX: E11.621 Type 2 diabetes mellitus with foot ulcer (principal); L97.502 Non-pressure chronic ulcer of other part of unspecified foot with fat layer exposed; L97.422 Non-pressure chronic ulcer of left heel and midfoot with fat layer exposed; Z79.4 Long term (current) use of insulin; Z72.0 Tobacco use
CPT/HCPCS: 11042

== ENCOUNTER 2022-04-10 10:18 | Emergency (ER) | payer MEDICARE, MEDICAID, SELFPAY ==
[2022-04-10 10:20] VITALS: BP 113/66; PULSE 79; RESP 14; TEMP 36.7; O2SAT 93; BMI 39.7
--- NOTE | 2022-04-10 11:23 | EKG12_ITS ---
Test Reason : DIZZINESS Blood Pressure : / mmHG Vent. Rate : 075 BPM Atrial Rate : 075 BPM P-R Int : 284 ms QRS Dur : 110 ms QT Int : 402 ms P-R-T Axes : 046 -23 062 degrees QTc Int : 448 ms Sinus rhythm with 1st degree A-V block Otherwise normal ECG Confirmed by MIHAI ARSHAD, CLEMENCIA ([id number]), news video editor FRANKY CRISTINA ([id number]) on 04/13/2022 11:22:31 AM Referred By: Confirmed By:CLEMENCIA HOLM MD
--- NOTE | 2022-04-10 11:46 | EDS_ITS ---
HPI <MARIAN Power - Last Filed: 04/10/22 15:29> History of Present Illness Chief Complaint: Hyperglycemia Narrative Narrative: 56-year-old male with history of type 2 diabetes, hypertension, upper lipidemia, major depressive disorder, obesity, rheumatoid arthritis presents to the emergency department for elevated blood sugar as well as dizziness. Patient states for the last 48 hours he has had vertiginous symptoms. Patient states whenever he gets up and moves his head he feels that he is spinning or the room is spinning and he has to sit back down. Patient also states he had nausea and vomiting related to this dizziness. He denies any chest pain. Patient states that his blood sugar today was 190, and after the insulin, it bumped up to 300. Patient states that he is concerned secondary to the elevation of his blood sugar. Patient denies any fever or chills. Patient does state for the last 2 days since the dizziness he has felt more fatigued. He has not been eating and drinking normally. [facility] <MARIAN Power - Last Filed: 04/10/22 15:29> [facility] Medical History (Updated 04/10/22 @ 15:26 by MARIAN Power) Anxiety and depression Bipolar disorder Chronic anemia Decubitus ulcer of left buttock, stage 3 Delusional disorder Diabetes Diabetic ulcer of left heel HTN (hypertension) Hypercholesterolemia Morbid obesity Neuropathy Rheumatoid arthritis RUQ abdominal pain Tobacco use Type 2 diabetes mellitus Uncontrolled type 2 diabetes mellitus with hyperosmolar nonketotic hyperglycemia Home Medications amitriptyline 75 mg tablet 75 mg PO QHS depression 11/27/20 [History Last Taken 01/14/21] aspirin 81 mg chewable tablet 81 mg PO DAILY heart 11/27/20 [History Last Taken 01/16/21] atorvastatin 80 mg tablet 80 mg PO QHS cholesterol 11/27/20 [History Last Taken 01/14/21] buspirone 5 mg tablet 5 mg PO BID anxiety 11/27/20 [History Last Taken 01/16/21] cholecalciferol (vitamin D3) 50 mcg (2,000 unit) tablet (Vitamin D3) 50 mcg PO DAILY vitamin 11/27/20 [History Last Taken 01/16/21] duloxetine 60 mg capsule,delayed release sprinkle 60 mg PO QHS depression 11/27/20 [History Last Taken Unknown] ezetimibe 10 mg tablet 10 mg PO DAILY cholesterol 11/27/20 [History Last Taken 01/16/21] ferrous sulfate 325 mg (65 mg iron) tablet 325 mg PO DAILY supplement 11/27/20 [History Last Taken 01/16/21] insulin lispro 100 unit/mL subcutaneous cartridge See Protocol subcut TID diabetes 11/27/20 [History Last Taken 01/16/21] mecobalamin (vitamin B12) 1,000 mcg chewable tablet (B12 Active) 1,000 mcg PO DAILY vitamin 11/27/20 [History Last Taken 01/16/21] metoprolol tartrate 25 mg tablet 25 mg PO BID htn 11/27/20 [History Last Taken 01/16/21] omega 9-xas-mcu-fish oil 1,000 mg (120 mg-180 mg) capsule (Fish Oil) 1 cap PO BID supplement 11/27/20 [History Last Taken 01/16/21] pregabalin 200 mg capsule 200 mg PO TID nerve pill 11/27/20 [History Last Taken 01/16/21] sertraline 50 mg tablet 50 mg PO DAILY depression 11/27/20 [History Last Taken 01/15/21] tamsulosin 0.4 mg capsule 0.4 mg PO QHS urine 11/27/20 [History Last Taken 01/14/21] pantoprazole 40 mg tablet,delayed release (Protonix) 40 mg PO BID #60 tabs 01/15/21 [Rx Last Taken 01/16/21] amlodipine 10 mg tablet 10 mg PO DAILY BP 01/16/21 [History Last Taken 01/16/21] bupropion HCl 150 mg 24 hr tablet, extended release 150 mg PO BID 01/16/21 [History Last Taken 01/16/21] metformin 500 mg tablet 500 mg PO BID DM 01/16/21 [History Last Taken 01/16/21] sucralfate 1 gram tablet 1 g PO ACHS STOMACH 01/16/21 [History Last Taken 01/16/21] insulin degludec 100 unit/mL (3 mL) subcutaneous pen (Tresiba FlexTouch U-100 insulin) 40 unit (0.4 mL) subcut QHS diabetes #0 mL 01/23/21 [Rx Last Taken Unknown] lactulose 20 gram/30 mL oral solution 20 g (30 mL) PO DAILY 30 days #900 mL 01/23/21 [Rx Last Taken Unknown] quetiapine 25 mg tablet 25 mg PO BID #60 tabs 01/23/21 [Rx Last Taken Unknown] amitriptyline 50 mg tablet 50 mg PO QHS 10/23/21 [History Last Taken Unknown] dupilumab 200 mg/1.14 mL subcutaneous pen injector (Dupixent) 300 mg subcut QWEEK 10/23/21 [History Last Taken Unknown] leflunomide 10 mg tablet (Arava) 10 mg PO DAILY 10/23/21 [History Last Taken Unknown] lisinopril 10 mg tablet 10 mg PO DAILY 10/23/21 [History Last Taken Unknown] amoxicillin 875 mg-potassium clavulanate 125 mg tablet 1 tab PO BID 14 days #28 tabs 12/18/21 [Rx Last Taken Unknown] meclizine 25 mg tablet 25 mg PO DAILY PRN dizziness #20 tabs 04/10/22 [Rx Last Taken Unknown] Allergy/AdvReac Type Severity Reaction Status Date / Time No Known Allergies Allergy Verified 04/10/22 10:29 Family History (Updated 01/11/21 @ 01:[address] Kanwal Russo MD) Mother Diabetes Father Diabetes Hypertension Social History housing: assisted living facility Smoking Status: Light Smoker (<10/day) alcohol intake: never substance use type: does not use ROS <MARIAN Power - Last Filed: 04/10/22 15:29> ROS ED ROS Narrative Constitutional: Negative for fever, chills, weight loss, weakness Eyes: Negative for vision loss, vision change, double vision ENT: Negative for any sore throat, ear pain, congestion Cardiovascular: Negative for any chest pain, tightness, palpitations Respiratory: Negative for any cough, sputum production, hemoptysis, dyspnea, dyspnea on exertion, orthopnea Gastrointestinal: Negative for any abdominal pain diarrhea, constipation, blood in stool, blood in vomit. Positive for nausea and vomiting : Negative for any urinary frequency, dysuria, retention, blood in urine Muscle skeletal: Negative for any muscle joint pain, stiffness, myalgias, arthralgias, neck pain, back pain Neurological: Negative for any headache, syncope, numbness or tingling. Positive for feeling of dizziness, he describes it as he is spinning or the room is spinning he feels unbalanced and has to sit back down. Skin: Negative for any rashes, lumps, itching, abrasions, lacerations Psychiatric: Negative for any depression, anxiety, stress, suicidal ideation, homicidal ideation Hematologic: Negative for any easy bruising, excessive bruising, easy bleeding Allergies: Negative for any eczema, hives, rash EXAM <MARIAN Power - Last Filed: 04/10/22 15:29> Physical Exam Narrative Exam Narrative: Vital signs reviewed. HEET: Head normocephalic atraumatic, TMs clear bilaterally. Posterior pharynx is clear, dry mucous membranes. Nares clear bilaterally. Neck: Supple with no lymphadenopathy or tenderness. No signs of meningismus, negative jolt sign. Cardiac: Regular rate and rhythm no murmurs gallops or rubs, equal peripheral pulses bilaterally. Respiratory: Lungs clear to auscultation bilaterally. No chest tenderness. Abdomen: Soft, nontender, nondistended. No abdominal bruit or pulsatile masses. No hepatosplenomegaly Extremities: No peripheral edema, no signs of gross trauma or deformity. Active full range of motion of all extremities. Neuro: Cranial nerves II through XII intact, no focal neurological deficits. Dwayne-Hallpike maneuver was completed, this did elicit 3 to 5 seconds of horizontal nystagmus. Patient did have nausea however no vomiting with this maneuver. Once patient was still, he felt much better. Skin: Clean dry and intact with no rash, purpura, petechiae, vesicles or pustules. Patient does have eczema, he has is on his legs and feet. Backs/flank: No CVA tenderness, no midline spinal tenderness, no deformity. Psych: Normal mood and affect. No SI, HI or acute psychosis. Const Vital Signs: 04/10/22 10:20 04/10/22 10:29 04/10/22 12:30 Temperature 98.1 F Temperature Source Oral Pulse Rate 79 74 Respiratory Rate 14 16 Respiratory Pattern Normal Blood Pressure 113/66 113/68 Blood Pressure Mean 81 83 Pulse Ox 93 92 Oxygen Delivery Method Room Air Room Air 04/10/22 14:14 04/10/22 15:46 Temperature Temperature Source Pulse Rate 71 89 Respiratory Rate 15 16 Respiratory Pattern Blood Pressure 98/60 106/74 Blood Pressure Mean 72 Pulse Ox 98 98 Oxygen Delivery Method Room Air <Dr. Stone Pablo MD - Last Filed: 04/10/22 19:39> Physical Exam Const Vital Signs: 04/10/22 10:20 04/10/22 10:29 04/10/22 12:30 Temperature 98.1 F Temperature Source Oral Pulse Rate 79 74 Respiratory Rate 14 16 Respiratory Pattern Normal Blood Pressure 113/66 113/68 Blood Pressure Mean 81 83 Pulse Ox 93 92 Oxygen Delivery Method Room Air Room Air 04/10/22 14:14 04/10/22 15:46 Temperature Temperature Source Pulse Rate 71 89 Respiratory Rate 15 16 Respiratory Pattern Blood Pressure 98/60 106/74 Blood Pressure Mean 72 Pulse Ox 98 98 Oxygen Delivery Method Room Air MDM <MARIAN Power - Last Filed: 04/10/22 15:29> MDM Lab Data Labs: Laboratory Results - last 24 hr 04/10/22 04/10/22 04/10/22 11:40 11:40 11:40 WBC 7.1 RBC 4.47 L Hgb 10.9 L Hct 32.4 L MCV 72.5 L MCH 24.4 L MCHC 33.6 RDW Std Deviation 50.4 H RDW Coeff of Nathalie 19.4 H Plt Count 214 MPV 9.8 Immature Gran % (Auto) 0.100 Neut % (Auto) 49.7 Lymph % (Auto) 33.9 [place] % (Auto) 7.0 Eos % (Auto) 8.3 H Baso % (Auto) 1.0 Absolute Neuts (auto) 3.5 Absolute Lymphs (auto) 2.42 Nucleated RBC % 0 Sodium 141 Potassium 5.6 H Chloride 112 H Carbon Dioxide 27.0 Anion Gap 2 L BUN 21 H Creatinine 1.22 Estim Creat Clear Calc 68.41 Est GFR (MDRD) Af Amer 79 Est GFR (MDRD) Non-Af 65 BUN/Creatinine Ratio 17.2 Glucose 194 H Lactic Acid Calcium 8.7 Urine Color Urine Clarity Urine pH Ur Specific [place] Urine Protein Urine Glucose (UA) Urine Ketones Urine Occult Blood Urine Nitrite Urine Bilirubin Urine Urobilinogen Ur Leukocyte Esterase Urine RBC Urine WBC Ur Squamous Epith Cells Urine Bacteria Urine Mucus Acetone Level NEGATIVE 04/10/22 04/10/22 11:40 14:45 WBC RBC Hgb Hct MCV MCH MCHC RDW Std Deviation RDW Coeff of Nathalie Plt Count MPV Immature Gran % (Auto) Neut % (Auto) Lymph % (Auto) [place] % (Auto) Eos % (Auto) Baso % (Auto) Absolute Neuts (auto) Absolute Lymphs (auto) Nucleated RBC % Sodium Potassium Chloride Carbon Dioxide Anion Gap BUN Creatinine Estim Creat Clear Calc Est GFR (MDRD) Af Amer Est GFR (MDRD) Non-Af BUN/Creatinine Ratio Glucose Lactic Acid 1.3 Calcium Urine Color Yellow Urine Clarity Clear Urine pH 7.0 Ur Specific [place] 1.010 Urine Protein Negative Urine Glucose (UA) Normal Urine Ketones Negative Urine Occult Blood Negative Urine Nitrite Negative Urine Bilirubin Negative Urine Urobilinogen Normal Ur Leukocyte Esterase Negative Urine RBC 0 SEEN Urine WBC 0 SEEN Ur Squamous Epith Cells 0 SEEN Urine Bacteria 0 SEEN Urine Mucus 0 SEEN Acetone Level Radiography Diagnostic Testing: Clinical Impression(s) from Imaging Studies Chest X-Ray 04/10/22 12:09 IMPRESSION: Mild pulmonary vascular congestion and mild right pleural effusion. Electronically Signed: Ronda Garcia MD at 12:31 EST , EKG Sinus rhythm with first-degree AV block: Attestation: I personally reviewed and interpreted this EKG as follows: Comments: Sinus rhythm with first-degree AV block, rate of 75 bpm, [place] interval 284 ms, QRS duration 110 ms, no acute ST elevation, no acute infarct noted. Treatment and Re-Evaluation Narrative: Patient appears well, patient appears nontoxic, vital signs are stable. Patient presents to the emergency department with complaints of dizziness, nausea and vomiting. Patient did receive a full work-up. Patient's EKG was unremarkable, patient's chest x-ray inter by ER physician shows some mild pulmonary vascular congestion, mild right pleural effusion. Patient's laboratory studies show a normal CBC, patient is slightly anemic at 10.9 however patient is chronically there. Patient's potassium was slightly elevated at 5.6, no EKG changes, patient's creatinine was normal, patient's blood sugar was 194. Patient's acetone level was negative, no signs or symptoms of diabetic ketoacidosis. Patient was given 1 L of fluid, meclizine by mouth. Patient did feel better. Patient was given education regarding hyperkalemia. Patient was unable to give a urine sample, tried multiple times. Patient did have a urinary catheter placed, he had 1300 cc out. Patient's urinalysis was negative for any infection. Patient does have urinary retention. Patient will need to follow-up with urology. At this time, there is no evidence of CVA, patient be diagnosed with benign peripheral positional vertigo, urinary retention, hyperkalemia. He will follow-up closely with his PCP. Instructed to maintain hydration. At this time, patient meets no admission criteria, he will follow-up outpatient. Patient stable for discharge. <Dr. Stone Pablo MD - Last Filed: 04/10/22 19:39> [facility] MDM Narrative Medical decision making narrative: I have personally performed a face to face assessment of the patient and have reviewed the TAHIR Note. I performed a substantive portion of the visit including all aspects of the following. My gillis findings include: History is remarkable for difficulty controlling blood sugar. Patient is not a good informant. He also complains of vertigo. The vertigo is positional and transient. He denies double vision, blurred vision loss of vision. [place] trouble with speech or swallowing. Denies problems with coordination or balance. He denies ringing in his ears. He does report decreased hearing on the right. He denies headache. There is no history of trauma. Exam is unkept ungroomed gentleman in no apparent distress. HEENT exam is remarkable for cerumen impaction right side. Pupils equal round reactive. Extract [place]. Sclera is anicteric. No APD. No papilledema. Neck is supple. There is no carotid bruit. Trachea is midline. Heart is regular. There is no murmur, gallop or rub. Lungs are clear to auscultation. Abdomen soft nontender. He is alert and orient x3. No dysmetria. Motor or sensory intact. DTR symmetric no clonus Babinski sign. Medical Decision Making suspect patient has paroxysmal benign positional vertigo due to cerumen impaction on the right. Ear was [place]. His symptoms improved. Blood sugar is elevated 194 with a normal CO2 and anion. Patient does not have a anemia. He is unremarkable. Other additions or changes: [None] Lab Data Labs: Laboratory Results - last 24 hr 04/10/22 04/10/22 04/10/22 11:40 11:40 11:40 WBC 7.1 RBC 4.47 L Hgb 10.9 L Hct 32.4 L MCV 72.5 L MCH 24.4 L MCHC 33.6 RDW Std Deviation 50.4 H RDW Coeff of Nathalie 19.4 H Plt Count 214 MPV 9.8 Immature Gran % (Auto) 0.100 Neut % (Auto) 49.7 Lymph % (Auto) 33.9 [place] % (Auto) 7.0 Eos % (Auto) 8.3 H Baso % (Auto) 1.0 Absolute Neuts (auto) 3.5 Absolute Lymphs (auto) 2.42 Nucleated RBC % 0 Sodium 141 Potassium 5.6 H Chloride 112 H Carbon Dioxide 27.0 Anion Gap 2 L BUN 21 H Creatinine 1.22 Estim Creat Clear Calc 68.41 Est GFR (MDRD) Af Amer 79 Est GFR (MDRD) Non-Af 65 BUN/Creatinine Ratio 17.2 Glucose 194 H Lactic Acid Calcium 8.7 Urine Color Urine Clarity Urine pH Ur Specific [place] Urine Protein Urine Glucose (UA) Urine Ketones Urine Occult Blood Urine Nitrite Urine Bilirubin Urine Urobilinogen Ur Leukocyte Esterase Urine RBC Urine WBC Ur Squamous Epith Cells Urine Bacteria Urine Mucus Acetone Level NEGATIVE 04/10/22 04/10/22 11:40 14:45 WBC RBC Hgb Hct MCV MCH MCHC RDW Std Deviation RDW Coeff of Nathalie Plt Count MPV Immature Gran % (Auto) Neut % (Auto) Lymph % (Auto) [place] % (Auto) Eos % (Auto) Baso % (Auto) Absolute Neuts (auto) Absolute Lymphs (auto) Nucleated RBC % Sodium Potassium Chloride Carbon Dioxide Anion Gap BUN Creatinine Estim Creat Clear Calc Est GFR (MDRD) Af Amer Est GFR (MDRD) Non-Af BUN/Creatinine Ratio Glucose Lactic Acid 1.3 Calcium Urine Color Yellow Urine Clarity Clear Urine pH 7.0 Ur Specific [place] 1.010 Urine Protein Negative Urine Glucose (UA) Normal Urine Ketones Negative Urine Occult Blood Negative Urine Nitrite Negative Urine Bilirubin Negative Urine Urobilinogen Normal Ur Leukocyte Esterase Negative Urine RBC 0 SEEN Urine WBC 0 SEEN Ur Squamous Epith Cells 0 SEEN Urine Bacteria 0 SEEN Urine Mucus 0 SEEN Acetone Level Radiography Diagnostic Testing: Clinical Impression(s) from Imaging Studies Chest X-Ray 04/10/22 12:09 IMPRESSION: Mild pulmonary vascular congestion and mild right pleural effusion. Electronically Signed: Ronda Garcia MD at 12:31 EST , Discharge Plan Triage Chief Complaint: Hyperglycemia ED Midlevel Provider: Basim Daigle ED Provider: Stone Pablo Dx/Rx/DC Orders Clinical Impression: Diabetes type 2, uncontrolled, Acute urinary retention, Vertigo, Acute hyperkalemia Instructions: Diabetes and Kidney Disease, Hyperkalemia Dc, ED Matthew Catheter, Care, ED Urinary Retention, Male, ED Vertigo, Unspecified Prescriptions: New meclizine 25 mg tablet 25 mg PO DAILY PRN (Reason: dizziness) Qty: 20 0RF No Action buspirone 5 mg Tablet 5 mg PO BID atorvastatin 80 mg Tablet 80 mg PO QHS amitriptyline 75 mg Tablet 75 mg PO QHS tamsulosin 0.4 mg Capsule 0.4 mg PO QHS ferrous sulfate 325 mg (65 mg iron) Tablet 325 mg PO DAILY aspirin 81 mg Tablet,Chewable 81 mg PO DAILY sertraline 50 mg Tablet 50 mg PO DAILY insulin lispro 100 unit/mL Cartridge See Protocol subcut TID Protocol: 6. Sliding Scale Insulin Custom Dose/Route: Number of Units Condition: 0-150 Dose/Route: 0 Condition: 151-200 Dose/Route: 2 Condition: 201-250 Dose/Route: 4 Condition: 251-300 Dose/Route: 6 Condition: 301-350 Dose/Route: 8 Condition: 351-400 Dose/Route: 10 Protocol Text: Custom Sliding Scale ezetimibe 10 mg Tablet 10 mg PO DAILY metoprolol tartrate 25 mg Tablet 25 mg PO BID pregabalin 200 mg Capsule 200 mg PO TID cholecalciferol (vitamin D3) [Vitamin D3] 50 mcg (2,000 unit) Tablet 50 mcg PO DAILY omega 7-nlh-fam-fish oil [Fish Oil] 1,000 mg (120 mg-180 mg) Capsule 1 cap PO BID duloxetine 60 mg Capsule, Delayed Rel Sprinkle 60 mg PO QHS B12 Active 1,000 mcg Tablet,Chewable 1,000 mcg PO DAILY pantoprazole [Protonix] 40 mg tablet,delayed release (DR/EC) 40 mg PO BID Qty: 60 0RF metformin 500 mg Tablet 500 mg PO BID bupropion HCl 150 mg Tablet Extended Release 24 Hr 150 mg PO BID sucralfate 1 gram tablet 1 g PO ACHS amlodipine 10 mg tablet 10 mg PO DAILY quetiapine 25 mg Tablet 25 mg PO BID Qty: 60 0RF lactulose 20 gram/30 mL Solution 20 g PO DAILY 30 Days Qty: 900 0RF Tresiba FlexTouch U-100 100 unit/mL (3 mL) insulin pen 40 unit SUBCUT QHS Qty: 0 0RF leflunomide [Arava] 10 mg Tablet 10 mg PO DAILY lisinopril 10 mg Tablet 10 mg PO DAILY Dupixent Pen 200 mg/1.14 mL Pen Injector 300 mg SUBCUT QWEEK amitriptyline 50 mg Tablet 50 mg PO QHS amoxicillin-pot clavulanate 875-125 mg tablet 1 tab PO BID 14 Days Qty: 28 0RF Primary Care Provider: Teresa Hernandez Referrals: Jarek Kearney MD [Med Staff - Active Staff] - Teresa Hernandez DO [Primary Care Provider] - Activity Restrictions/Additional Instructions: You are being diagnosed with vertigo, take the meclizine for the dizziness. Your potassium was slightly elevated, please read the education regarding a low potassium diet. You need to have this rechecked with your PCP. You are also being diagnosed with urinary retention, you have a Matthew catheter placed. You need to follow-up with Dr. Kearney who is a urologist. Please return for any worsening symptoms. Disposition Disposition: Home, Self Care Discharge Date/Time: 04/10/22 16:19
[2022-04-10] MEDS: Ondansetron 4 MG/2 ML Vial IV (11:54)
[2022-04-10] MEDS: 0.9% Normal Saline 1,000 ML 1000 ML IV (11:54)
[2022-04-10] MEDS: Meclizine HCl 25 MG Tablet PO (11:54)
[2022-04-10 11:55] LABS: Absolute Lymphocyte Count 2.42 X10^3/uL (0.83-4.51); Absolute Neutrophil Count 3.5 X10^3/uL (2.0-7.7); Basophil# 0.07 X10^3/uL; Eosinophil# 0.59 X10^3/uL; Eosinophils% 8.3 % (0-5); Hematocrit 32.4 % (40-54); Hemoglobin 10.9 g/dL (13.0-16.5); Lymphocyte # 2.42 X10^3/ul (0.83-4.51); Lymphocyte % 33.9 % (19-41); Mean Corp Hgb Conc 33.6 g/dL (32-36); Mean Corpuscular Hgb 24.4 pg (27.0-32.0); Mean Corpuscular Volume 72.5 fL (80-94); Mean Platelet Vol. 9.8 fl (6.2-12.0); NRBC Flagged by Analyzer 0 % (0-5); Neutrophil # 3.54 X10^3/uL (2.7-7.7); Neutrophil % 49.7 % (47-70); Platelet Count 214 K/mm3 (150-450); RBC Distribution Width CV 19.4 % (11.6-14.6); RBC Distribution Width SD 50.4 fl (35.1-43.9); Red Blood Count 4.47 M/mm3 (4.6-6.2); White Blood Count 7.1 K/mm3 (4.4-11.0)
[2022-04-10 12:07] LABS: Anion Gap 2 (5-15); BUN 21 mg/dL (7-18); BUN/Creat Ratio 17.2 RATIO (10-20); Calcium,Total 8.7 mg/dL (8.5-10.1); Chloride 112 mmol/L (98-107); Creatinine, Serum 1.22 mg/dL (0.70-1.30); EST Glomerular Filtration Rate 65 mL/min (>60); Est Glom Filt Rate - Afr Amer 79 mL/min (>60); Estimated Creatinine Clearance 68.41 ml/min; Glucose 194 mg/dL (74-106); Potassium 5.6 mmol/L (3.5-5.1); Sodium Level 141 mmol/L (136-145)
--- NOTE | 2022-04-10 12:09 | RAD_ITS ---
HISTORY: SOB. TECHNIQUE: XR Chest 1 View. COMPARISON: 01/16/2021. FINDINGS: CARDIOMEDIASTINAL BORDERS: Cardiac silhouette again upper limits of normal in size. Mediastinal contour unremarkable. LUNGS: Mild pulmonary vascular congestion. PLEURA: Mild right pleural effusion laterally. OSSEOUS STRUCTURES: Unremarkable. RAD/Chest 1 View (Portable) IMPRESSION: Mild pulmonary vascular congestion and mild right pleural effusion. Electronically Signed: Ronda Garcia MD at 12:31 EST ,
[2022-04-10 12:15] LABS: Lactic Acid 1.3 mmol/L (0.4-1.9)
[2022-04-10 12:30] VITALS: BP 113/68; PULSE 74; RESP 16; O2SAT 92
--- NOTE | 2022-04-10 12:53 | ED.RN ---
pt attempting to urinate without success thus far
[2022-04-10] MEDS: Carbamide Peroxide 15 ML Bottle 5 DRP OTIC (13:36)
--- NOTE | 2022-04-10 13:40 | ED.RN ---
THIS RN SPOKE WITH INES GERMAN FROM [facility] WITH A PATIENT UPDATE.
[2022-04-10 14:14] VITALS: BP 98/60; PULSE 71; RESP 15; O2SAT 98
[2022-04-10 14:51] LABS: Bacteria 0 SEEN /hpf (None Seen); Mucous, Urine 0 SEEN /hpf (<or=2+); Red Blood Cells-Urine 0 SEEN /hpf (0-5); Squamous Epithelial Cells - UA 0 SEEN /hpf (0-5); White Blood Cells 0 SEEN /hpf (0-5)
[2022-04-10 15:01] LABS: Color, Urine Yellow (Yellow); Glucose, Dipstick Normal (Normal); Ketone-Dipstick Negative (Negative); Leukocyte Esterase-Dipstick Negative /ul (Negative); Nitrite-Dipstick Negative (Negative); Occult Blood-Urine Negative /ul (Negative); Protein-Dipstick Negative (Negative); Urine Bilirubin Dipstick Negative (Negative); Urine Clarity Clear (Clear); Urine Urobilinogen Normal (Normal)
--- NOTE | 2022-04-10 15:32 | ED.RN ---
1300 return of urine from straight cath
--- NOTE | 2022-04-10 15:44 | ED.RN ---
[facility] Discussed dc papers with patient and worthy care with leg bag. reinforced need for followup with urology
[2022-04-10 15:46] VITALS: BP 106/74; PULSE 89; RESP 16; O2SAT 98
== END 2022-04-10 16:19 | disposition home or self-care (01) ==
PROVIDERS: Nurse Practitioner; Emergency Provider Emergency Medicine; PCP Internal Medicine; Visit Provider Emergency Medicine
DX: E11.65 Type 2 diabetes mellitus with hyperglycemia (principal); E11.40 Type 2 diabetes mellitus with diabetic neuropathy, unspecified; F17.200 Nicotine dependence, unspecified, uncomplicated; E78.00 Pure hypercholesterolemia, unspecified; R33.9 Retention of urine, unspecified; E66.9 Obesity, unspecified; I10 Essential (primary) hypertension; H91.91 Unspecified hearing loss, right ear; E87.5 Hyperkalemia; R42 Dizziness and giddiness
CPT/HCPCS: 51702; 99285; 71045; 80048; 81001; 82009; 83605; 85025; 93005; J7030; P9612; A4216; J2405

== ENCOUNTER 2022-04-10 23:22 | Emergency (ER) | payer MEDICARE, MEDICAID, SELFPAY ==
[2022-04-10 23:23] VITALS: BP 123/67; PULSE 85; RESP 16; TEMP 36.4; O2SAT 95; BMI 42.8
--- NOTE | 2022-04-11 00:44 | ED.RN ---
pt bladder irrigated, worthy bag changed from a leg bag to a regular one. pt also has periods of sleep apnea, o2 dropping t 87% when he falls asleep on room air, placed on 2lnc, state he feels much better w o2 on
--- NOTE | 2022-04-11 01:17 | EDS_ITS ---
HPI History of Present Illness Chief Complaint: Complaint Narrative Narrative: Patient is a 56-year-old male with past medical history of type 2 diabetes vertigo tobacco abuse and urinary retention. He was seen in the ER a few hours ago secondary to the symptoms and underwent a complete work-up. At that time he was noted to have acute urinary retention so Matthew catheter was placed. He was not an acute kidney injury or having signs of severe infection or DKA so he was discharged home. Patient states in the few hours he has been home and he noticed there was blood present in the catheter tubing. He denies any trauma to the catheter or genitalia. He denies any history of blood thinner use or bleeding disorder. He states the bleeding concerned him and therefore he returns for repeat evaluation [facility] Medical History (Updated 04/11/22 @ 02:[address] Mingo Addison, ) Anxiety and depression Bipolar disorder Chronic anemia Decubitus ulcer of left buttock, stage 3 Delusional disorder Diabetes Diabetic ulcer of left heel HTN (hypertension) Hypercholesterolemia Morbid obesity Neuropathy Rheumatoid arthritis RUQ abdominal pain Tobacco use Type 2 diabetes mellitus Uncontrolled type 2 diabetes mellitus with hyperosmolar nonketotic hyperglycemia Home Medications aspirin 81 mg chewable tablet 81 mg PO DAILY heart 11/27/20 [History Last Taken 01/16/21] atorvastatin 80 mg tablet 80 mg PO QHS cholesterol 11/27/20 [History Last Taken 01/14/21] buspirone 5 mg tablet 5 mg PO BID anxiety 11/27/20 [History Last Taken 01/16/21] cholecalciferol (vitamin D3) 50 mcg (2,000 unit) tablet (Vitamin D3) 50 mcg PO DAILY vitamin 11/27/20 [History Last Taken 01/16/21] duloxetine 60 mg capsule,delayed release sprinkle 60 mg PO QHS depression 11/27/20 [History Last Taken Unknown] ezetimibe 10 mg tablet 10 mg PO DAILY cholesterol 11/27/20 [History Last Taken 01/16/21] ferrous sulfate 325 mg (65 mg iron) tablet 325 mg PO DAILY supplement 11/27/20 [History Last Taken 01/16/21] insulin lispro 100 unit/mL subcutaneous cartridge See Protocol subcut TID diabetes 11/27/20 [History Last Taken 01/16/21] mecobalamin (vitamin B12) 1,000 mcg chewable tablet (B12 Active) 1,000 mcg PO DAILY vitamin 11/27/20 [History Last Taken 01/16/21] metoprolol tartrate 25 mg tablet 25 mg PO BID htn 11/27/20 [History Last Taken 01/16/21] omega 2-ist-qkf-fish oil 1,000 mg (120 mg-180 mg) capsule (Fish Oil) 1 cap PO BID supplement 11/27/20 [History Last Taken 01/16/21] pregabalin 200 mg capsule 200 mg PO TID nerve pill 11/27/20 [History Last Taken 01/16/21] sertraline 50 mg tablet 50 mg PO DAILY depression 11/27/20 [History Last Taken 01/15/21] tamsulosin 0.4 mg capsule 0.4 mg PO QHS urine 11/27/20 [History Last Taken 01/14/21] pantoprazole 40 mg tablet,delayed release (Protonix) 40 mg PO BID #60 tabs 01/15/21 [Rx Last Taken 01/16/21] amlodipine 10 mg tablet 10 mg PO DAILY BP 01/16/21 [History Last Taken 01/16/21] bupropion HCl 150 mg 24 hr tablet, extended release 150 mg PO BID 01/16/21 [History Last Taken 01/16/21] metformin 500 mg tablet 500 mg PO BID DM 01/16/21 [History Last Taken 01/16/21] sucralfate 1 gram tablet 1 g PO ACHS STOMACH 01/16/21 [History Last Taken 01/16/21] insulin degludec 100 unit/mL (3 mL) subcutaneous pen (Tresiba FlexTouch U-100 insulin) 40 unit (0.4 mL) subcut QHS diabetes #0 mL 01/23/21 [Rx Last Taken Unknown] lactulose 20 gram/30 mL oral solution 20 g (30 mL) PO DAILY 30 days #900 mL 01/23/21 [Rx Last Taken Unknown] quetiapine 25 mg tablet 25 mg PO BID #60 tabs 01/23/21 [Rx Last Taken Unknown] amitriptyline 50 mg tablet 50 mg PO QHS 10/23/21 [History Last Taken Unknown] dupilumab 200 mg/1.14 mL subcutaneous pen injector (Dupixent) 300 mg subcut QWEEK 10/23/21 [History Last Taken Unknown] leflunomide 10 mg tablet (Arava) 10 mg PO DAILY 10/23/21 [History Last Taken Unknown] lisinopril 10 mg tablet 10 mg PO DAILY 10/23/21 [History Last Taken Unknown] amoxicillin 875 mg-potassium clavulanate 125 mg tablet 1 tab PO BID 14 days #28 tabs 12/18/21 [Rx Last Taken Unknown] meclizine 25 mg tablet 25 mg PO DAILY PRN dizziness #20 tabs 04/10/22 [Rx Last Taken Unknown] Allergy/AdvReac Type Severity Reaction Status Date / Time No Known Allergies Allergy Verified 04/10/22 23:25 Family History (Updated 01/11/21 @ 01:[address] Kanwal Russo MD) Mother Diabetes Father Diabetes Hypertension Social History housing: assisted living facility Smoking Status: Light Smoker (<10/day) alcohol intake: never substance use type: does not use ROS ROS ED Constitutional Constitutional ED: Denies chills or fever(s) ENT ENT ED: Denies sore throat Cardiovascular Cardiovascular: Denies chest pain Respiratory/Chest Respiratory/Chest: Denies cough or dyspnea Gastrointestinal Gastrointestinal: Denies abdominal pain, diarrhea, nausea or vomiting Genitourinary Genitourinary ED: Reports hematuria; Denies dysuria Musculoskeletal Musculoskeletal: Denies myalgias Integumentary Denies rash Neurologic Neurologic: Denies headache(s) Hematologic/Lymphatic Hematologic/Lymphatic: Denies easy bleeding or easy bruising EXAM Physical Exam Const Vital Signs: 04/10/22 23:23 04/11/22 01:26 04/11/22 01:22 Temperature 97.6 F L Temperature Source Temporal Pulse Rate 85 82 80 Respiratory Rate 16 16 Blood Pressure 123/67 H 124/63 H Blood Pressure Mean 85 Pulse Ox 95 98 Oxygen Delivery Method Room Air Positive well nourished, well developed and obese General Appearance ED: well developed Nutritional Appearance: obese HEENT Reports dry mucous membranes HEENT Narrative: No tongue or lip swelling no oral lesions no airway edema or compromise Mouth ED: Yes dry mucous membranes Mouth: dry mucous membranes Eyes PERRL and EOMs intact bilaterally Neck supple and no JVD Resp normal respiratory effort Resp Narrative: Bilateral breath sounds are diminished throughout with crackles in knee the bases consistent with x-ray read of vascular congestion from earlier in the day Cardio regular rate and regular rhythm GI non-tender, non-distended and no masses GI Narrative: No voluntary guarding or rigidity. No pulsatile mass or fluid wave. No organomegaly noted Auscultation: normoactive bowel sounds Palpation: soft Narrative: Matthew catheter in place without blood or discharge around the urethral meatus. No testicular swelling no overlying soft tissue changes to suggest Ruby's gangrene Extremity Extremity Narrative: +1-2 pitting edema that is equal and symmetric bilaterally with negative Homans' sign Neuro oriented x3 and CN's II-XII intact bilaterally Sensorium / Orientation: alert Psych mental status grossly normal Skin no rashes or lesions noted MDM MDM MDM Narrative Medical decision making narrative: Patient presented to the ER afebrile and normotensive. There was dark blood noted within the Matthew catheter. There is no leakage of blood from the urethral meatus and no signs of obstruction within the catheter tubing to suggest acute urinary retention since the insertion of the catheter. The patient already had blood work and x-ray and urine sample done earlier today and therefore do not feel there is need to repeat this. The catheter was flushed as I felt the blood was most likely from trauma to the prostatic vessels when it was inserted. After flushing the urine cleared and there was no signs of return bleeding or active bleeding. Therefore as the patient's had improvement of his symptoms there is no signs of active bleeding present in the ER at this time and he underwent a complete work-up a few hours ago that did not reveal anything clinically significant do not feel patient needs repeat labs or admission to the hospital and is safe for discharge Discharge Plan Triage Chief Complaint: Complaint ED Provider: Mingo Addison Dx/Rx/DC Orders Clinical Impression: Hematuria, Diabetes type 2, uncontrolled, Acute urinary retention Instructions: ED Matthew Catheter, Care, ED Hematuria Prescriptions: No Action buspirone 5 mg Tablet 5 mg PO BID atorvastatin 80 mg Tablet 80 mg PO QHS tamsulosin 0.4 mg Capsule 0.4 mg PO QHS ferrous sulfate 325 mg (65 mg iron) Tablet 325 mg PO DAILY aspirin 81 mg Tablet,Chewable 81 mg PO DAILY sertraline 50 mg Tablet 50 mg PO DAILY insulin lispro 100 unit/mL Cartridge See Protocol subcut TID Protocol: 6. Sliding Scale Insulin Custom Dose/Route: Number of Units Condition: 0-150 Dose/Route: 0 Condition: 151-200 Dose/Route: 2 Condition: 201-250 Dose/Route: 4 Condition: 251-300 Dose/Route: 6 Condition: 301-350 Dose/Route: 8 Condition: 351-400 Dose/Route: 10 Protocol Text: Custom Sliding Scale ezetimibe 10 mg Tablet 10 mg PO DAILY metoprolol tartrate 25 mg Tablet 25 mg PO BID pregabalin 200 mg Capsule 200 mg PO TID cholecalciferol (vitamin D3) [Vitamin D3] 50 mcg (2,000 unit) Tablet 50 mcg PO DAILY omega 0-kba-fki-fish oil [Fish Oil] 1,000 mg (120 mg-180 mg) Capsule 1 cap PO BID duloxetine 60 mg Capsule, Delayed Rel Sprinkle 60 mg PO QHS mecobalamin (vitamin B12) [B12 Active] 1,000 mcg Tablet,Chewable 1,000 mcg PO DAILY pantoprazole [Protonix] 40 mg tablet,delayed release (DR/EC) 40 mg PO BID Qty: 60 0RF metformin 500 mg Tablet 500 mg PO BID bupropion HCl 150 mg Tablet Extended Release 24 Hr 150 mg PO BID sucralfate 1 gram tablet 1 g PO ACHS amlodipine 10 mg tablet 10 mg PO DAILY quetiapine 25 mg Tablet 25 mg PO BID Qty: 60 0RF lactulose 20 gram/30 mL Solution 20 g PO DAILY 30 Days Qty: 900 0RF Tresiba FlexTouch U-100 100 unit/mL (3 mL) insulin pen 40 unit SUBCUT QHS Qty: 0 0RF leflunomide [Arava] 10 mg Tablet 10 mg PO DAILY lisinopril 10 mg Tablet 10 mg PO DAILY Dupixent Pen 200 mg/1.14 mL Pen Injector 300 mg SUBCUT QWEEK amitriptyline 50 mg Tablet 50 mg PO QHS amoxicillin-pot clavulanate 875-125 mg tablet 1 tab PO BID 14 Days Qty: 28 0RF meclizine 25 mg tablet 25 mg PO DAILY PRN (Reason: dizziness) Qty: 20 0RF Primary Care Provider: Teresa Hernandez Referrals: Teresa Hernandez DO [Primary Care Provider] - Activity Restrictions/Additional Instructions: The blood in your catheter was secondary to trauma to the prostate upon insertion of the Matthew catheter. The catheter has been irrigated and now the urine returning is consistent with old blood. Your urine will have a pink lemonade discoloration for the next few days. If it returns to dark red/grape juice discoloration or you have any further concerns please return to the ER for repeat evaluation. Your exam today also indicates you have sleep apnea therefore follow-up with your doctor to obtain a sleep study so he can be prescribed oxygen at night. Disposition Disposition: Home, Self Care
[2022-04-11 01:22] VITALS: PULSE 80
[2022-04-11 01:26] VITALS: BP 124/63; PULSE 82; RESP 16; O2SAT 98
[2022-04-11 04:03] VITALS: BP 144/79; PULSE 83; RESP 16; O2SAT 100
== END 2022-04-11 04:04 | disposition home or self-care (01) ==
PROVIDERS: Emergency Provider Emergency Medicine; PCP Internal Medicine; Visit Provider Emergency Medicine
DX: R31.9 Hematuria, unspecified (principal); E11.40 Type 2 diabetes mellitus with diabetic neuropathy, unspecified; E11.65 Type 2 diabetes mellitus with hyperglycemia; E78.00 Pure hypercholesterolemia, unspecified; F17.200 Nicotine dependence, unspecified, uncomplicated; R33.9 Retention of urine, unspecified; I10 Essential (primary) hypertension; R42 Dizziness and giddiness; E66.9 Obesity, unspecified; H91.91 Unspecified hearing loss, right ear; E87.5 Hyperkalemia
CPT/HCPCS: 51702; 71045; 80048; 81001; 82009; 83605; 85025; 93005; 96361; 96374; 99284; 99285; J7030; P9612; A4216; J2405

== ENCOUNTER 2022-12-03 09:06 | Outpatient (RCR) | payer MEDICARE, MEDICAID, SELFPAY ==
[2022-12-03 10:21] VITALS: BP 131/76; PULSE 73; RESP 18; TEMP 36.4; BMI 35.1
--- NOTE | 2022-12-03 12:23 | PCM.WC.HP ---
History of Present Illness Date of Service: 12/03/22 Chief Complaint: Left Heel Ulcer History of Wound: Mr. Ordoñez is a 57yo who presents to the wound center due to bilateral heel ulcers and a left buttock ulcer. Said to have been noted a month ago. Was seen by his PCP and Santyl has been applied to the bilateral heel ulcers but he has been using [id number] products for his buttock ulcer. No significant improvement so he was referred here. History of diabetes mellitus type 2, he is unsure of his last A1c but states that he recently had labs done by his PCP. Also history of tobacco use, continues to smoke. Sits most of the time in his wheelchair. [facility] Medical History (Updated 12/03/22 @ 12:[address] Lior Salcido MD) Anxiety and depression Bipolar disorder Chronic anemia Decubitus ulcer of left buttock, stage 2 Decubitus ulcer of left buttock, stage 3 Delusional disorder Diabetes Diabetic ulcer of left heel Diabetic ulcer of right heel HTN (hypertension) Hypercholesterolemia Morbid obesity Neuropathy Rheumatoid arthritis RUQ abdominal pain Tobacco use Type 2 diabetes mellitus Uncontrolled type 2 diabetes mellitus with hyperosmolar nonketotic hyperglycemia Home Medications aspirin 81 mg chewable tablet 81 mg PO DAILY heart 11/27/20 [History Last Taken 01/16/21] atorvastatin 80 mg tablet 80 mg PO QHS cholesterol 11/27/20 [History Last Taken 01/14/21] buspirone 5 mg tablet 5 mg PO BID anxiety 11/27/20 [History Last Taken 01/16/21] cholecalciferol (vitamin D3) 50 mcg (2,000 unit) tablet (Vitamin D3) 50 mcg PO DAILY vitamin 11/27/20 [History Last Taken 01/16/21] duloxetine 60 mg capsule,delayed release sprinkle 60 mg PO QHS depression 11/27/20 [History Last Taken Unknown] ezetimibe 10 mg tablet 10 mg PO DAILY cholesterol 11/27/20 [History Last Taken 01/16/21] ferrous sulfate 325 mg (65 mg iron) tablet 325 mg PO DAILY supplement 11/27/20 [History Last Taken 01/16/21] insulin lispro 100 unit/mL subcutaneous cartridge See Protocol subcut TID diabetes 11/27/20 [History Last Taken 01/16/21] mecobalamin (vitamin B12) 1,000 mcg chewable tablet (B12 Active) 1,000 mcg PO DAILY vitamin 11/27/20 [History Last Taken 01/16/21] metoprolol tartrate 25 mg tablet 25 mg PO BID htn 11/27/20 [History Last Taken 01/16/21] omega 3-nxj-zhd-fish oil 1,000 mg (120 mg-180 mg) capsule (Fish Oil) 1 cap PO BID supplement 11/27/20 [History Last Taken 01/16/21] pregabalin 200 mg capsule 200 mg PO TID nerve pill 11/27/20 [History Last Taken 01/16/21] sertraline 50 mg tablet 50 mg PO DAILY depression 11/27/20 [History Last Taken 01/15/21] tamsulosin 0.4 mg capsule 0.4 mg PO QHS urine 11/27/20 [History Last Taken 01/14/21] pantoprazole 40 mg tablet,delayed release (Protonix) 40 mg PO BID #60 tabs 01/15/21 [Rx Last Taken 01/16/21] amlodipine 10 mg tablet 10 mg PO DAILY BP 01/16/21 [History Last Taken 01/16/21] bupropion HCl 150 mg 24 hr tablet, extended release 150 mg PO BID 01/16/21 [History Last Taken 01/16/21] metformin 500 mg tablet 500 mg PO BID DM 01/16/21 [History Last Taken 01/16/21] sucralfate 1 gram tablet 1 g PO ACHS STOMACH 01/16/21 [History Last Taken 01/16/21] insulin degludec 100 unit/mL (3 mL) subcutaneous pen (Tresiba FlexTouch U-100 insulin) 40 unit (0.4 mL) subcut QHS diabetes #0 mL 01/23/21 [Rx Last Taken Unknown] lactulose 20 gram/30 mL oral solution 20 g (30 mL) PO DAILY 30 days #900 mL 01/23/21 [Rx Last Taken Unknown] quetiapine 25 mg tablet 25 mg PO BID #60 tabs 01/23/21 [Rx Last Taken Unknown] amitriptyline 50 mg tablet 50 mg PO QHS 10/23/21 [History Last Taken Unknown] dupilumab 200 mg/1.14 mL subcutaneous pen injector (Dupixent) 300 mg subcut QWEEK 10/23/21 [History Last Taken Unknown] leflunomide 10 mg tablet (Arava) 10 mg PO DAILY 10/23/21 [History Last Taken Unknown] lisinopril 10 mg tablet 10 mg PO DAILY 10/23/21 [History Last Taken Unknown] amoxicillin 875 mg-potassium clavulanate 125 mg tablet 1 tab PO BID 14 days #28 tabs 12/18/21 [Rx Last Taken Unknown] meclizine 25 mg tablet 25 mg PO DAILY PRN dizziness #20 tabs 04/10/22 [Rx Last Taken Unknown] Allergy/AdvReac Type Severity Reaction Status Date / Time No Known Allergies Allergy Verified 04/10/22 23:25 Family History (Updated 01/11/21 @ 01:[address] Kanwal Russo MD) Mother Diabetes Father Diabetes Hypertension Social History housing: assisted living facility Smoking Status: Heavy Smoker (>10/day) alcohol intake: never substance use type: does not use ROS Constitutional Constitutional: Denies fatigue, fever(s), frequent falls, headache(s), increased appetite, lethargy or malaise Eyes Eyes: Denies diplopia, discharge from eye(s), discongugate gaze, exophthalmos, eye pain, floaters, foreign body or halo effect ENT HEENT: Denies dysphagia, foreign body in nose, headache(s), mucositis, nasal congestion, nasal discharge or nasal trauma Cardiovascular Cardiovascular: Denies chest pain with activity, cyanosis, dyspnea at rest, dyspnea on exertion, fatigue, flutter in chest or hypertension Respiratory/Chest Respiratory/Chest: Denies dusky skin, dyspnea, dyspnea on exertion, excessive phlegm production, hemoptysis, hoarseness, inability to speak or nail bed cyanosis Gastrointestinal Gastrointestinal: Denies chewing difficulty, coffee ground emesis, constipation, cramping, diarrhea, dry heaves or dyspepsia Genitourinary Genitourinary: Denies abdominal discomfort, anuria, burning urination, dysuria or flank pain Musculoskeletal Musculoskeletal: Denies arthralgias, atrophy, back pain or deformity Integumentary Integumentary: Denies erythema, furuncle, hirsutism, jaundice or lesions Neurologic Neurologic: Denies abnormal speech, behavior changes, burning sensations, convulsions, disequilibrium or dizziness Psychiatric Psychiatric: Denies abnormal sleep pattern, anhedonia, anxiety, auditory hallucinations, behavioral changes, irritability or memory loss Endocrine Endocrinology: Denies cold intolerance, excessive sweating, fatigue, flushing or heat intolerance Allergic/Immunologic Allergic/Immunologic: Denies lip swelling, tongue swelling, hives, eczemia, wheezing or asthma Vital Signs Vital Signs Vital Signs: 12/03/22 10:21 Temperature 97.5 F L Temperature Source Temporal Pulse Rate 73 Respiratory Rate 18 Blood Pressure 131/76 H Blood Pressure Mean 94 Blood Pressure Source Monitor Blood Pressure Position Semi-Fowlers Blood Pressure Location Left Arm Weight Weight: 238 lb Body Mass Index (BMI) 35.1 Physical Exam Const alert, oriented x3 and no apparent distress General Appearance: cooperative and comfortable HEENT normocephalic, head/scalp atraumatic and hearing grossly normal bilaterally Eyes General Eye: normal appearance of both eyes Neck full ROM General: normal visual inspection Resp normal respiratory effort and normal air movement Effort and Inspection: able to speak in complete sentences Cardio regular rate, regular rhythm, S1 normal heart sound and S2 normal heart sound Extremity General Extremity: edema Skin Wounds: wounds noted Neuro oriented x3, CN's II-XII intact bilaterally and moves all extremities Psych mental status grossly normal, thought process normal and cooperative Debridement Note Debridement Note Wound debrided: Left Heel Wound Grade/Stage: Grade II Type of Debridement: Excisional debridement Anesthesia Used: 5% Lidocaine Gel Depth: Down to and including healthy tissue and in the subcutaneous layer Percentage of wound debrided: 100 Instrument Used: 5mm curette, #15 blade and Forceps Tissue Removed: Slough and devitalized tissue Severity: Fat Layer Exposed Amount of bleeding with debridement: Mild Bleeding Controlled with: Pressure Patient tolerated procedure: Patient tolerated procedure well Post-Debridement Measurements and Additional Note: Post-Debridement Measurements/Treatment - Nurse 1 - General Ulcer Assessment Start: 12/03/22 09:15 Freq: Status: Active Protocol: SANDRA Activity Type Activity Date Activity User E-sign Co-sign Detail Recorded Client Recorded Date Recorded By Document 12/03/22 10:21 NICHOLAS [id number] 12/03/22 10:31 NICHOLAS 12/03/22 10:21 - Today's Visit Information Type of service Initial Visit Arrival Mode Wheelchair Transfer Assistance Manual Patient Identification Verified (Name & Yes ) Patient Requires Transmission-Based No Precautions Height and Weight Height 5 ft 9 in Weight 238 lb Weight in Pounds 238.0 lbs Body Mass Index (BMI) 35.1 BMI Classification Obese BSA - Rj 2.22 Vital Signs Temperature (97.8 F-99.1 F) 97.5 F L Temperature Source Temporal Pulse Rate (60-100) 73 Pulse Location Monitor Respiratory Rate (12-18) 18 Respiratory rate source Observation Blood Pressure (90/60-120/80) 131/76 H Blood Pressure Mean 94 Source Monitor Position Semi-Fowlers Blood Pressure Location Left Arm Pain Scale: 0-10 Numeric Is Patient Pain Free? No L heel -Description Aching -Intensity 9 -Duration (hours) Acute -Pain Behavior Withdrawal from Touch -Pain Aggravating Factors ADL's -Alleviating Factors/Interventions Inactivity/ Resting Lower Extremity Assessment/ Foot Assessment/ Toe Nail Assessment Right -Posterior Tibial Palpable Yes -Dorsalis Pedis Palpable Yes -Extremity Color Normal -Hair Growth on Legs No -Hair Growth on Toes No -Temperature of Extremity Warm -Capillary Refill Less than 3 Seconds -Dependent Rubor No -Blanched when Elevated No -Lipodermatosclerosis No -Other Deformity No -Prior Foot Ulcer No -Charcot Joint No -Prior Amputation No -Thick Yes -Discolored Yes -Deformed Yes -Improper Length & Hygeine Yes Left -Posterior Tibial Palpable Yes -Dorsalis Pedis Palpable Yes -Extremity Color Normal -Hair Growth on Legs No -Hair Growth on Toes No -Temperature of Extremity Warm -Capillary Refill Less than 3 Seconds -Dependent Rubor No -Blanched when Elevated No -Lipodermatosclerosis No -Other Deformity No -Prior Foot Ulcer No -Charcot Joint No -Prior Amputation No -Thick Yes -Discolored Yes -Deformed Yes -Improper Length & Hygeine Yes Neuropathy Assessment Feet - Top Side and Bottom <Entered> (a) Communication Assessment Preferred language U[place]bek Student Teacher Required No Able to Read Yes Able to Write Yes Communication Tools None Caregiver Communication Skills No Impairment Impairment Right Hearing Abillity Normal Left Hearing Abillity Normal Visual Assistive Devices Glasses Teaching Assessment Preferences Verbal,Written, Demonstration Barriers to Learning None Readiness To Learn Good Willingness to Engage in Self Management Med Activies Readiness to Engage in Self Management Med Activities Anxiety Level Calm Cooperation Cooperative Perception Coherent Interest in Health Problem Asks Questions Education Importance Acknowledges Need Does Patient Smoke tobacco or other No substances Smoking Status Heavy Smoker (> 10/day) Is Patient Diabetic Yes Functional Assessment Recent Decline in Ability to Perform Ambulation, Transferring Assistive Device With Patient No Culture/Pentecostalism/Supervisor Shuttle [employer]ering Cultural/Pentecostalism Needs that may affect No Treatment Plan Would you allow our hospital building services engineer to No meet you for the purpose of spiritual/ emotional support? Supervisor Shuttle Veneering to contact place of jain No Teaching: Wound Center *Welcome to the Wound Center -Person Taught Patient -Teaching Method Discussion -Response to teaching Verbalize understanding (a) 1 - + 2 - - WC - Nurse 1 - General Ulcer Measurement Start: 12/03/22 09:15 Freq: Status: Active Protocol: Activity Type Activity Date Activity User E-sign Co-sign Detail Recorded Client Recorded Date Recorded By Document 12/03/22 10:21 RB [id number] 12/03/22 10:31 RB 12/03/22 10:21 Wound Center Nurse 1 9. L buttocks -Combined with other wound No -Current Size (cm) - Length 0.1 -Current Size (cm) - Width 0.1 -Current Size (cm) - Depth 0.1 -Total Square Cm 0.01 -Photo Taken Yes -Tunneling No -Undermining/Tunneling No -Circular Undermining No -Exudate Amt Medium -Exudate Type Serosanguineous -Wound Margin Distinct, Outline Attached -Granulation Amt Medium (34-66%) -Granulation Quality [place] -Slough/Fibrin Yes -Necrosis Amt Medium (34-66%) -Necrotic Tissue Type Adherent Slough -Structure Exposed N/A -Texture (Camila-wound Skin Appearance) Assessed -Moisture (Camila-wound Skin Appearance) Assessed -Color (Camila-wound Skin Appearance) Assessed -Temperature (Camila-wound Skin No Abnormality Appearance) (Pt Warm) -Tenderness on Palpation (Camila-wound No Skin Appearance) -Ulcer Cleansing Wound Cleanser -Foul Odor after Cleansing No -Anesthetic Used 5% Lidocaine Gel 8. R heel -Combined with other wound No -Current Size (cm) - Length 2.4 -Current Size (cm) - Width 1.3 -Current Size (cm) - Depth 0.1 -Total Square Cm 3.12 -Photo Taken Yes -Tunneling No -Undermining/Tunneling No -Circular Undermining No -Exudate Amt Medium -Exudate Type Serosanguineous -Wound Margin Distinct, Outline Attached -Granulation Amt Medium (34-66%) -Granulation Quality [place] -Slough/Fibrin Yes -Necrosis Amt Medium (34-66%) -Necrotic Tissue Type Adherent Slough -Structure Exposed N/A -Texture (Camila-wound Skin Appearance) Assessed, Scarring -Moisture (Camila-wound Skin Appearance) Assessed -Color (Camila-wound Skin Appearance) Assessed -Temperature (Camila-wound Skin No Abnormality Appearance) (Pt Warm) -Tenderness on Palpation (Camila-wound No Skin Appearance) -Ulcer Cleansing Wound Cleanser -Foul Odor after Cleansing No -Anesthetic Used 5% Lidocaine Gel 7. L heel -Combined with other wound No -Current Size (cm) - Length 1.2 -Current Size (cm) - Width 2.6 -Current Size (cm) - Depth 0.1 -Total Square Cm 3.12 -Photo Taken Yes -Tunneling No -Undermining/Tunneling No -Circular Undermining No -Exudate Amt Medium -Exudate Type Serosanguineous -Wound Margin Distinct, Outline Attached -Granulation Amt Medium (34-66%) -Granulation Quality [place] -Slough/Fibrin Yes -Necrosis Amt Medium (34-66%) -Necrotic Tissue Type Adherent Slough -Structure Exposed N/A -Texture (Camila-wound Skin Appearance) Assessed, Scarring -Moisture (Camila-wound Skin Appearance) Assessed -Color (Camila-wound Skin Appearance) Assessed -Temperature (Camila-wound Skin No Abnormality Appearance) (Pt Warm) -Tenderness on Palpation (Camila-wound No Skin Appearance) -Ulcer Cleansing Wound Cleanser -Foul Odor after Cleansing No -Anesthetic Used 5% Lidocaine Gel Lower Limb Edema Present Yes Right Calf (cm) 45 Right Ankle (cm) 27.5 Left Calf (cm) 46 Left Ankle (cm) 28.5 WC - Nurse 2 - General Ulcer CM Notes Start: 12/03/22 09:15 Freq: Status: Active Protocol: Activity Type Activity Date Activity User E-sign Co-sign Detail Recorded Client Recorded Date Recorded By Document 12/03/22 10:51 MW [id number] 12/03/22 11:00 MW 12/03/22 10:51 Wound Center Nurse 2 9. L buttocks -Time 10:52 -Correct Patient Yes -Correct Side, Site, Position Yes -Correct Procedure Yes -Procedure Performed Yes -Type of Procedure Debridement -Clinical Debridement Subcutaneous -Tissue Removed Subcutaneous -Post Debridement (cm) - Length 0.3 -Post Debridement (cm) - Width 0.4 -Post Debridement (cm) - Depth 0.1 -Total Square (Post) (cm) 0.12 -Area of Debridement (cm) - Length 0.3 -Area of Debridement (cm) - Width 0.4 -Total Square (Area) (cm) 0.12 -Tunneling No -Undermining/Tunneling No -Circular Undermining No -Wound/Ulcer Outcome Not Healed -Ulcer Cleansing Rinsed/ Irrigated with Saline -Foul Odor after Cleansing No -Bioengineered Tissue No -Bleeding Controlled with Pressure -Treatment Response Procedure Tolerated Well -Offloading No -Debridement - Subq, 1st 20sq cm Yes 8. R heel -Time 10:53 -Correct Patient Yes -Correct Side, Site, Position Yes -Correct Procedure Yes -Procedure Performed Yes -Type of Procedure Debridement -Clinical Debridement Subcutaneous -Tissue Removed Subcutaneous -Post Debridement (cm) - Length 2.2 -Post Debridement (cm) - Width 1.5 -Post Debridement (cm) - Depth 0.1 -Total Square (Post) (cm) 3.30 -Area of Debridement (cm) - Length 2.2 -Area of Debridement (cm) - Width 1.5 -Total Square (Area) (cm) 3.30 -Tunneling No -Undermining/Tunneling No -Circular Undermining No -Wound/Ulcer Outcome Not Healed -Ulcer Cleansing Rinsed/ Irrigated with Saline -Foul Odor after Cleansing No -Bioengineered Tissue No -Bleeding Controlled with Pressure -Treatment Response Procedure Tolerated Well -Offloading No -Debridement - Subq, 1st 20sq cm No 7. L heel -Time 10:53 -Correct Patient Yes -Correct Side, Site, Position Yes -Correct Procedure Yes -Procedure Performed Yes -Type of Procedure Debridement -Clinical Debridement Subcutaneous -Tissue Removed Subcutaneous -Post Debridement (cm) - Length 3.5 -Post Debridement (cm) - Width 4.5 -Post Debridement (cm) - Depth 0.1 -Total Square (Post) (cm) 15.75 -Area of Debridement (cm) - Length 3.5 -Area of Debridement (cm) - Width 4.5 -Total Square (Area) (cm) 15.75 -Tunneling No -Undermining/Tunneling No -Circular Undermining No -Wound/Ulcer Outcome Not Healed -Ulcer Cleansing Rinsed/ Irrigated with Saline -Foul Odor after Cleansing No -Bioengineered Tissue No -Bleeding Controlled with Pressure -Treatment Response Procedure Tolerated Well -Offloading No -Debridement - Subq, 1st 20sq cm No Pain Scale: 0-10 Numeric Is Patient Pain Free? Yes - Nurse 3 - General Ulcer D/C NN Start: 12/03/22 09:15 Freq: Status: Active Protocol: Activity Type Activity Date Activity User E-sign Co-sign Detail Recorded Client Recorded Date Recorded By Document 12/03/22 11:35 RB [id number] 12/03/22 11:38 RB 12/03/22 11:35 Wound Care Center Nurse 3 9. L buttocks -Primary Dressing Applied Aquacel Extra, Mepilex Border, NonAdherent Contact Layer -Aquacel Extra 1 -Mepilex Border 1 8. R heel -Primary Dressing Applied NonAdherent Contact Layer -Other Dressing aquacel extra, adaptic, abd kerlix 7. L heel -Primary Dressing Applied NonAdherent Contact Layer -Other Dressing aquacel extra, adaptic, abd, kerlix Right -Tubular Bandage Double Layer -Size of Tubigrip Used Size E -Size E ($) 2 Left -Tubular Bandage Double Layer -Size of Tubigrip Used Size E -Size E ($) 2 Treatment Response Procedure Tolerated Well Pain Scale: 0-10 Numeric Is Patient Pain Free? Yes - Visit Discharge Discharge Condition Stable Ambulatory Status Wheelchair Medication Reconcilliation completed & No provided to patient/care provider Clinical Summary of Care Provided Yes Additional Wound Wound debrided: Right Heel Wound Grade/Stage: Grade I Type of Debridement: Excisional debridement Anesthesia Used: 5% Lidocaine Gel Depth: Down to and including healthy tissue and in the subcutaneous layer Percentage of wound debrided: 100 Instrument Used: 5mm curette Tissue Removed: Slough and devitalized tissue Severity: Fat Layer Exposed Amount of bleeding with debridement: Mild Bleeding Controlled with: Pressure Additional Wound Wound debrided: Left Buttock Wound Grade/Stage: Stage II Type of Debridement: Excisional debridement Anesthesia Used: 5% Lidocaine Gel Depth: Down to and including healthy tissue and in the subcutaneous layer Percentage of wound debrided: 100 Instrument Used: 3mm curette Tissue Removed: Slough and devitalized tissue Severity: Fat Layer Exposed Amount of bleeding with debridement: Mild Bleeding Controlled with: Pressure Patient tolerated procedure: Patient tolerated procedure well Charges/Coding Visit Charges Office Visits / Consults: [id number] OV L3 Est Procedures Integumentary [id number]: [id number] Ana María subq tissue 20 sq cm/< Assessment/Plan Assessment/Plan (1) Diabetic ulcer of left heel: CODE(S): E11.621 - Type 2 diabetes mellitus with foot ulcer; L97.429 - Non-pressure chronic ulcer of left heel and midfoot with unspecified severity QUALIFIERS: Diabetes mellitus type: type 2 Non-pressure ulcer stage: with fat layer exposed Qualified Code(s): E11.621 - Type 2 diabetes mellitus with foot ulcer; L97.422 - Non-pressure chronic ulcer of left heel and midfoot with fat layer exposed (2) Diabetic ulcer of right heel: CODE(S): E11.621 - Type 2 diabetes mellitus with foot ulcer; L97.419 - Non-pressure chronic ulcer of right heel and midfoot with unspecified severity QUALIFIERS: Diabetes mellitus type: type 2 Non-pressure ulcer stage: with fat layer exposed Qualified Code(s): E11.621 - Type 2 diabetes mellitus with foot ulcer; L97.412 - Non-pressure chronic ulcer of right heel and midfoot with fat layer exposed (3) Decubitus ulcer of left buttock, stage 2: CODE(S): L89.322 - Pressure ulcer of left buttock, stage 2 (4) Tobacco use: CODE(S): Z72.0 - Tobacco use (5) Type 2 diabetes mellitus: CODE(S): E11.9 - Type 2 diabetes mellitus without complications QUALIFIERS: Diabetes mellitus skilled nursing insulin use: with skilled nursing use Diabetes mellitus complication status: with skin complications Diabetes mellitus complication detail: with foot ulcer Qualified Code(s): E11.621 - Type 2 diabetes mellitus with foot ulcer; L97.509 - Non-pressure chronic ulcer of other part of unspecified foot with unspecified severity; Z79.4 - correction (current) use of insulin PLAN: Plan Debridement done as documented above, procedure was well tolerated. Good granulation tissue noted, no significant concerns for infection. Aquacel extra to all ulcers, cover with Adaptic. Nurses hat to both heels to help with offloading and foam dressing to the left buttock. Prescription for gel cushion sent. He was advised to reposition often and avoid consistent pressure. Smoking cessation and optimal diabetes control also recommended. We have requested labs from his PCP. Increase protein intake. His questions were answered and he was advised to let us know if he has any further questions or concerns. Follow-up in a week or sooner if needed. This note was generated with [employer] dictation software. It may contain incorrect words, spelling, and punctuation that were not noted in checking the note before signing.
== END 2022-12-14 23:59 | disposition home or self-care (01) ==
LOC: WC 09:06
PROVIDERS: PCP Internal Medicine; Referring Provider Internal Medicine; Visit Provider Internal Medicine
DX: E11.621 Type 2 diabetes mellitus with foot ulcer (principal); L89.322 Pressure ulcer of left buttock, stage 2; L97.422 Non-pressure chronic ulcer of left heel and midfoot with fat layer exposed; L97.502 Non-pressure chronic ulcer of other part of unspecified foot with fat layer exposed; L97.412 Non-pressure chronic ulcer of right heel and midfoot with fat layer exposed; F31.9 Bipolar disorder, unspecified; E11.40 Type 2 diabetes mellitus with diabetic neuropathy, unspecified; Z79.4 Long term (current) use of insulin; I10 Essential (primary) hypertension; R60.0 Localized edema; E78.00 Pure hypercholesterolemia, unspecified; D64.9 Anemia, unspecified; Z79.82 Long term (current) use of aspirin
CPT/HCPCS: 11042; 99213; G0463

== ENCOUNTER → 2022-12-15 | Outpatient (REF) | payer MEDICARE, MEDICAID, SELFPAY ==
[2022-12-15 09:47] LABS: Absolute Lymphocyte Count 2.21 X10^3/uL (0.83-4.51); Basophil# 0.06 X10^3/uL; Basophil% 0.8 % (0-1); Eosinophil# 0.65 X10^3/uL; Eosinophils% 8.6 % (0-5); Hematocrit 28.2 % (40-54); Hemoglobin 9.5 g/dL (13.0-16.5); Lymphocyte # 2.21 X10^3/ul (0.83-4.51); Lymphocyte % 29.1 % (19-41); Mean Corp Hgb Conc 33.7 g/dL (32-36); Mean Corpuscular Hgb 24.9 pg (27.0-32.0); Mean Platelet Vol. 10.4 fl (6.2-12.0); Monocyte# 0.69 X10^3/uL; Monocyte% 9.1 % (0-10); NRBC Flagged by Analyzer 0 % (0-5); Neutrophil # 3.96 X10^3/uL (2.7-7.7); Platelet Count 284 K/mm3 (150-450); RBC Distribution Width CV 18.6 % (11.6-14.6); Red Blood Count 3.81 M/mm3 (4.6-6.2); White Blood Count 7.6 K/mm3 (4.4-11.0)
[2022-12-15 10:04] LABS: Vitamin D,25 Hydroxy 53.1 ng/mL
[2022-12-15 10:55] LABS: Anion Gap 2 (5-15); BUN 21 mg/dL (7-18); BUN/Creat Ratio 20.2 RATIO (10-20); Calcium,Total 8.3 mg/dL (8.5-10.1); Chloride 111 mmol/L (98-107); Cholesterol 59 mg/dL (200); Creatinine, Serum 1.04 mg/dL (0.70-1.30); EST Glomerular Filtration Rate 78 mL/min (>60); Est Glom Filt Rate - Afr Amer 95 mL/min (>60); Glucose 107 mg/dL (74-106); High Density Lipoprotein 22 mg/dL; Potassium 5.2 mmol/L (3.5-5.1); Sodium Level 138 mmol/L (136-145); Triglycerides 187 mg/dL; Very Low Density Lipoprotein 37 mg/dL (5-40)
== END ==
LOC: OLS.SW 05:00
PROVIDERS: PCP Internal Medicine; Visit Provider Family Medicine
DX: R68.89 Other general symptoms and signs (principal); E55.9 Vitamin D deficiency, unspecified; Z13.228 Encounter for screening for other metabolic disorders; Z79.899 Other long term (current) drug therapy
CPT/HCPCS: 36415; 80048; 80061; 82306; 83036; 85025

== ENCOUNTER → 2022-12-22 | Outpatient (REF) | payer MEDICARE, MEDICAID, SELFPAY ==
[2022-12-22 10:27] LABS: Absolute Lymphocyte Count 2.26 X10^3/uL (0.83-4.51); Absolute Neutrophil Count 3.8 X10^3/uL (2.0-7.7); Basophil# 0.06 X10^3/uL; Basophil% 0.8 % (0-1); Eosinophil# 0.52 X10^3/uL; Eosinophils% 7.2 % (0-5); Hematocrit 30.5 % (40-54); Hemoglobin 10.5 g/dL (13.0-16.5); Lymphocyte # 2.26 X10^3/ul (0.83-4.51); Lymphocyte % 31.4 % (19-41); Mean Corp Hgb Conc 34.4 g/dL (32-36); Mean Corpuscular Hgb 24.9 pg (27.0-32.0); Mean Corpuscular Volume 72.4 fL (80-94); Mean Platelet Vol. 9.9 fl (6.2-12.0); Monocyte# 0.55 X10^3/uL; Monocyte% 7.6 % (0-10); NRBC Flagged by Analyzer 0 % (0-5); Neutrophil # 3.78 X10^3/uL (2.7-7.7); Neutrophil % 52.7 % (47-70); Platelet Count 267 K/mm3 (150-450); RBC Distribution Width CV 18.8 % (11.6-14.6); RBC Distribution Width SD 48.7 fl (35.1-43.9); Red Blood Count 4.21 M/mm3 (4.6-6.2); White Blood Count 7.2 K/mm3 (4.4-11.0)
[2022-12-22 10:39] LABS: Anion Gap 3 (5-15); BUN 25 mg/dL (7-18); BUN/Creat Ratio 23.6 RATIO (10-20); Calcium,Total 8.6 mg/dL (8.5-10.1); Chloride 111 mmol/L (98-107); Creatinine, Serum 1.06 mg/dL (0.70-1.30); EST Glomerular Filtration Rate 77 mL/min (>60); Est Glom Filt Rate - Afr Amer 93 mL/min (>60); Glucose 137 mg/dL (74-106); Potassium 4.9 mmol/L (3.5-5.1); Sodium Level 140 mmol/L (136-145)
== END ==
LOC: OLS.SW 05:00
PROVIDERS: PCP Internal Medicine; Visit Provider Family Medicine
DX: N40.0 Benign prostatic hyperplasia without lower urinary tract symptoms (principal); E11.9 Type 2 diabetes mellitus without complications; I10 Essential (primary) hypertension; E78.5 Hyperlipidemia, unspecified; Z79.899 Other long term (current) drug therapy
CPT/HCPCS: 36415; 80048; 85025

== ENCOUNTER → 2022-12-29 | Outpatient (REF) | payer MEDICARE, MEDICAID, SELFPAY ==
[2022-12-29 08:59] LABS: Absolute Lymphocyte Count 2.44 X10^3/uL (0.83-4.51); Absolute Neutrophil Count 3.3 X10^3/uL (2.0-7.7); Basophil# 0.06 X10^3/uL; Basophil% 0.9 % (0-1); Eosinophil# 0.53 X10^3/uL; Eosinophils% 7.6 % (0-5); Hematocrit 31.8 % (40-54); Hemoglobin 10.8 g/dL (13.0-16.5); Lymphocyte # 2.44 X10^3/ul (0.83-4.51); Mean Corpuscular Hgb 25.1 pg (27.0-32.0); Mean Corpuscular Volume 73.8 fL (80-94); Mean Platelet Vol. 10.3 fl (6.2-12.0); Monocyte# 0.61 X10^3/uL; Monocyte% 8.8 % (0-10); NRBC Flagged by Analyzer 0 % (0-5); Neutrophil # 3.31 X10^3/uL (2.7-7.7); Neutrophil % 47.4 % (47-70); Platelet Count 240 K/mm3 (150-450); RBC Distribution Width CV 18.7 % (11.6-14.6); RBC Distribution Width SD 49.9 fl (35.1-43.9); Red Blood Count 4.31 M/mm3 (4.6-6.2)
[2022-12-29 09:09] LABS: Anion Gap 2 (5-15); BUN 21 mg/dL (7-18); BUN/Creat Ratio 22.7 RATIO (10-20); Calcium,Total 8.2 mg/dL (8.5-10.1); Chloride 112 mmol/L (98-107); Creatinine, Serum 0.93 mg/dL (0.70-1.30); EST Glomerular Filtration Rate 89 mL/min (>60); Est Glom Filt Rate - Afr Amer 108 mL/min (>60); Glucose 144 mg/dL (74-106); Potassium 4.9 mmol/L (3.5-5.1); Sodium Level 140 mmol/L (136-145)
== END ==
LOC: OLS.SW 05:00
PROVIDERS: PCP Internal Medicine; Visit Provider Family Medicine
DX: R68.89 Other general symptoms and signs (principal); Z13.228 Encounter for screening for other metabolic disorders; Z79.899 Other long term (current) drug therapy
CPT/HCPCS: 36415; 80048; 85025

== ENCOUNTER → 2022-12-31 | Outpatient (REF) | payer MEDICARE, MEDICAID, SELFPAY ==
[2022-12-31 08:59] LABS: Hematocrit 29.2 % (40-54); Hemoglobin 9.9 g/dL (13.0-16.5); Mean Corp Hgb Conc 33.9 g/dL (32-36); Mean Corpuscular Hgb 25.1 pg (27.0-32.0); Mean Corpuscular Volume 74.1 fL (80-94); Mean Platelet Vol. 10.6 fl (6.2-12.0); Platelet Count 214 K/mm3 (150-450); RBC Distribution Width CV 18.7 % (11.6-14.6); RBC Distribution Width SD 50.6 fl (35.1-43.9); Red Blood Count 3.94 M/mm3 (4.6-6.2); White Blood Count 6.6 K/mm3 (4.4-11.0)
[2022-12-31 09:32] LABS: Anion Gap 4 (5-15); BUN 24 mg/dL (7-18); BUN/Creat Ratio 22.6 RATIO (10-20); Calcium,Total 8.4 mg/dL (8.5-10.1); Chloride 112 mmol/L (98-107); Creatinine, Serum 1.06 mg/dL (0.70-1.30); EST Glomerular Filtration Rate 77 mL/min (>60); Est Glom Filt Rate - Afr Amer 93 mL/min (>60); Glucose 110 mg/dL (74-106); Sodium Level 140 mmol/L (136-145)
== END ==
LOC: OLS.SW 05:00
PROVIDERS: PCP Internal Medicine; Visit Provider Family Medicine
DX: E11.621 Type 2 diabetes mellitus with foot ulcer (principal); I10 Essential (primary) hypertension; E78.5 Hyperlipidemia, unspecified
CPT/HCPCS: 36415; 80048; 85027

== ENCOUNTER → 2023-01-05 | Outpatient (REF) | payer MEDICARE, MEDICAID, SELFPAY ==
[2023-01-05 09:23] LABS: Absolute Lymphocyte Count 2.49 X10^3/uL (0.83-4.51); Absolute Neutrophil Count 3.8 X10^3/uL (2.0-7.7); Basophil# 0.05 X10^3/uL; Basophil% 0.7 % (0-1); Eosinophil# 0.58 X10^3/uL; Eosinophils% 7.7 % (0-5); Hematocrit 29.9 % (40-54); Hemoglobin 10.1 g/dL (13.0-16.5); Lymphocyte # 2.49 X10^3/ul (0.83-4.51); Lymphocyte % 33.1 % (19-41); Mean Corp Hgb Conc 33.8 g/dL (32-36); Mean Corpuscular Hgb 24.8 pg (27.0-32.0); Mean Corpuscular Volume 73.3 fL (80-94); Mean Platelet Vol. 10.2 fl (6.2-12.0); Monocyte# 0.59 X10^3/uL; Monocyte% 7.8 % (0-10); NRBC Flagged by Analyzer 0 % (0-5); Neutrophil % 50.4 % (47-70); Platelet Count 217 K/mm3 (150-450); RBC Distribution Width CV 18.7 % (11.6-14.6); RBC Distribution Width SD 49.2 fl (35.1-43.9); Red Blood Count 4.08 M/mm3 (4.6-6.2); White Blood Count 7.5 K/mm3 (4.4-11.0)
[2023-01-05 09:40] LABS: Anion Gap 4 (5-15); BUN 19 mg/dL (7-18); BUN/Creat Ratio 19.5 RATIO (10-20); Calcium,Total 8.2 mg/dL (8.5-10.1); Chloride 111 mmol/L (98-107); Creatinine, Serum 0.98 mg/dL (0.70-1.30); EST Glomerular Filtration Rate 84 mL/min (>60); Est Glom Filt Rate - Afr Amer 102 mL/min (>60); Glucose 169 mg/dL (74-106); Potassium 5.1 mmol/L (3.5-5.1); Sodium Level 140 mmol/L (136-145)
== END ==
LOC: OLS.SW 05:00
PROVIDERS: PCP Internal Medicine; Visit Provider Family Medicine
DX: R68.89 Other general symptoms and signs (principal); Z13.228 Encounter for screening for other metabolic disorders; Z79.899 Other long term (current) drug therapy
CPT/HCPCS: 36415; 80048; 85025

== ENCOUNTER → 2023-01-12 | Outpatient (REF) | payer MEDICARE, MEDICAID, SELFPAY ==
[2023-01-12 08:39] LABS: Absolute Lymphocyte Count 2.63 X10^3/uL (0.83-4.51); Basophil# 0.05 X10^3/uL; Basophil% 0.8 % (0-1); Eosinophil# 0.38 X10^3/uL; Eosinophils% 5.8 % (0-5); Hematocrit 33.1 % (40-54); Hemoglobin 11.3 g/dL (13.0-16.5); Lymphocyte # 2.63 X10^3/ul (0.83-4.51); Lymphocyte % 39.9 % (19-41); Mean Corp Hgb Conc 34.1 g/dL (32-36); Mean Corpuscular Hgb 25.1 pg (27.0-32.0); Mean Corpuscular Volume 73.6 fL (80-94); Mean Platelet Vol. 10.5 fl (6.2-12.0); Monocyte# 0.55 X10^3/uL; Monocyte% 8.3 % (0-10); NRBC Flagged by Analyzer 0 % (0-5); Neutrophil # 2.97 X10^3/uL (2.7-7.7); Platelet Count 227 K/mm3 (150-450); RBC Distribution Width CV 18.9 % (11.6-14.6); RBC Distribution Width SD 49.9 fl (35.1-43.9); White Blood Count 6.6 K/mm3 (4.4-11.0)
[2023-01-12 08:57] LABS: Anion Gap 1 (5-15); BUN 18 mg/dL (7-18); Calcium,Total 8.6 mg/dL (8.5-10.1); Chloride 113 mmol/L (98-107); Creatinine, Serum 0.95 mg/dL (0.70-1.30); EST Glomerular Filtration Rate 87 mL/min (>60); Est Glom Filt Rate - Afr Amer 106 mL/min (>60); Glucose 112 mg/dL (74-106); Sodium Level 142 mmol/L (136-145)
== END ==
LOC: OLS.SW 05:00
PROVIDERS: PCP Internal Medicine; Visit Provider Family Medicine
DX: R68.89 Other general symptoms and signs (principal); Z13.228 Encounter for screening for other metabolic disorders; Z79.899 Other long term (current) drug therapy
CPT/HCPCS: 36415; 80048; 85025

== ENCOUNTER → 2023-02-12 | Outpatient (REF) | payer MEDICARE, MEDICAID, SELFPAY ==
[2023-02-12 08:51] LABS: Absolute Lymphocyte Count 2.57 X10^3/uL (0.83-4.51); Absolute Neutrophil Count 3.4 X10^3/uL (2.0-7.7); Basophil# 0.07 X10^3/uL; Eosinophil# 0.41 X10^3/uL; Eosinophils% 5.7 % (0-5); Hematocrit 28.7 % (40-54); Hemoglobin 9.6 g/dL (13.0-16.5); Lymphocyte # 2.57 X10^3/ul (0.83-4.51); Lymphocyte % 35.6 % (19-41); Mean Corp Hgb Conc 33.4 g/dL (32-36); Mean Corpuscular Hgb 24.4 pg (27.0-32.0); Mean Platelet Vol. 10.7 fl (6.2-12.0); Monocyte# 0.77 X10^3/uL; Monocyte% 10.7 % (0-10); NRBC Flagged by Analyzer 0 % (0-5); Neutrophil # 3.39 X10^3/uL (2.7-7.7); Neutrophil % 46.9 % (47-70); Platelet Count 214 K/mm3 (150-450); RBC Distribution Width CV 18.8 % (11.6-14.6); RBC Distribution Width SD 49.7 fl (35.1-43.9); Red Blood Count 3.93 M/mm3 (4.6-6.2); White Blood Count 7.2 K/mm3 (4.4-11.0)
[2023-02-12 09:10] LABS: Anion Gap 0 (5-15); BUN 19 mg/dL (7-18); BUN/Creat Ratio 17.4 RATIO (10-20); Calcium,Total 8.3 mg/dL (8.5-10.1); Chloride 113 mmol/L (98-107); Creatinine, Serum 1.09 mg/dL (0.70-1.30); EST Glomerular Filtration Rate 74 mL/min (>60); Est Glom Filt Rate - Afr Amer 90 mL/min (>60); Glucose 120 mg/dL (74-106); Sodium Level 139 mmol/L (136-145)
== END ==
LOC: OLS.SW 05:00
PROVIDERS: PCP Internal Medicine; Visit Provider Family Medicine
DX: R68.89 Other general symptoms and signs (principal); Z13.228 Encounter for screening for other metabolic disorders; Z79.899 Other long term (current) drug therapy
CPT/HCPCS: 36415; 80048; 85025

== ENCOUNTER → 2023-03-12 | Outpatient (REF) | payer MEDICARE, MEDICAID, SELFPAY ==
[2023-03-12 07:39] LABS: Absolute Lymphocyte Count 2.38 X10^3/uL (0.83-4.51); Absolute Neutrophil Count 3.4 X10^3/uL (2.0-7.7); Basophil# 0.05 X10^3/uL; Basophil% 0.7 % (0-1); Eosinophils% 5.9 % (0-5); Hematocrit 29.5 % (40-54); Hemoglobin 9.9 g/dL (13.0-16.5); Lymphocyte # 2.38 X10^3/ul (0.83-4.51); Lymphocyte % 34.9 % (19-41); Mean Corp Hgb Conc 33.6 g/dL (32-36); Mean Corpuscular Hgb 23.9 pg (27.0-32.0); Mean Corpuscular Volume 71.3 fL (80-94); Mean Platelet Vol. 9.7 fl (6.2-12.0); Monocyte% 8.8 % (0-10); NRBC Flagged by Analyzer 0 % (0-5); Neutrophil # 3.38 X10^3/uL (2.7-7.7); Neutrophil % 49.6 % (47-70); Platelet Count 216 K/mm3 (150-450); RBC Distribution Width CV 19.2 % (11.6-14.6); RBC Distribution Width SD 48.7 fl (35.1-43.9); Red Blood Count 4.14 M/mm3 (4.6-6.2); White Blood Count 6.8 K/mm3 (4.4-11.0)
[2023-03-12 07:50] LABS: Anion Gap 2 (5-15); BUN 12 mg/dL (7-18); BUN/Creat Ratio 12.4 RATIO (10-20); Chloride 111 mmol/L (98-107); Creatinine, Serum 0.96 mg/dL (0.70-1.30); EST Glomerular Filtration Rate 85 mL/min (>60); Est Glom Filt Rate - Afr Amer 103 mL/min (>60); Glucose 175 mg/dL (74-106); Potassium 4.2 mmol/L (3.5-5.1); Sodium Level 140 mmol/L (136-145)
== END ==
LOC: OLS.SW 05:00
PROVIDERS: PCP Internal Medicine; Visit Provider Family Medicine
DX: R68.89 Other general symptoms and signs (principal); Z13.228 Encounter for screening for other metabolic disorders; Z79.899 Other long term (current) drug therapy
CPT/HCPCS: 36415; 80048; 85025

== ENCOUNTER 2023-03-17 05:40 | Emergency (ER) | payer MEDICARE, MEDICAID, SELFPAY ==
[2023-03-17 05:41] VITALS: BP 134/64; PULSE 83; RESP 18; TEMP 36.8; O2SAT 97; BMI 42.2
--- NOTE | 2023-03-17 06:01 | ED.VIS.LOWEX ---
HPI History of Present Illness HPI Narrative: 57-year-old male extensive past medical history of bipolar disease, anemia, diabetes, diabetic neuropathies and hypertension. Had been at a local extended care facility and was recently discharged. He said he does not have his medications for his neuropathic pain. He has not followed up with either extended-care facility where he was discharged from or his primary care physician to have these rewritten. He is unsure of the dose. Also states he has had some nausea and vomiting today. Has not been checking his blood sugar. Denies any diarrhea or fever. Chief Complaint: Lower Extremity Injury Informant: patient Onset/Context/Timing Onset: Days Context: Gradual Onset Timing: Continuous Quality of Pain: Dull and Aching Current Severity: Mild Maximum Severity: Mild Associated Symptoms Associated Symptoms: Positive for Parasthesia; Negative for Weakness or Loss of Funtion Narrative Narrative: 57-year-old male history of diabetic neuropathies was discharged from a area long term and said he did not have his prescriptions. Prior similar symptoms: Yes Recent Illness/Hospitalization: No PFSH PFSH Medical History Anxiety and depression Bipolar disorder Chronic anemia Decubitus ulcer of left buttock, stage 2 Decubitus ulcer of left buttock, stage 3 Delusional disorder Diabetes Diabetic ulcer of left heel Diabetic ulcer of right heel HTN (hypertension) Hypercholesterolemia Morbid obesity Neuropathy Rheumatoid arthritis RUQ abdominal pain Tobacco use Type 2 diabetes mellitus Uncontrolled type 2 diabetes mellitus with hyperosmolar nonketotic hyperglycemia Home Medications aspirin 81 mg chewable tablet 81 mg PO DAILY heart 11/27/20 [History Last Taken 01/16/21] atorvastatin 80 mg tablet 80 mg PO QHS cholesterol 11/27/20 [History Last Taken 01/14/21] buspirone 5 mg tablet 5 mg PO BID anxiety 11/27/20 [History Last Taken 01/16/21] cholecalciferol (vitamin D3) 50 mcg (2,000 unit) tablet (Vitamin D3) 50 mcg PO DAILY vitamin 11/27/20 [History Last Taken 01/16/21] duloxetine 60 mg capsule,delayed release sprinkle 60 mg PO QHS depression 11/27/20 [History Last Taken Unknown] ezetimibe 10 mg tablet 10 mg PO DAILY cholesterol 11/27/20 [History Last Taken 01/16/21] ferrous sulfate 325 mg (65 mg iron) tablet 325 mg PO DAILY supplement 11/27/20 [History Last Taken 01/16/21] insulin lispro 100 unit/mL subcutaneous cartridge See Protocol subcut TID diabetes 11/27/20 [History Last Taken 01/16/21] mecobalamin (vitamin B12) 1,000 mcg chewable tablet (B12 Active) 1,000 mcg PO DAILY vitamin 11/27/20 [History Last Taken 01/16/21] metoprolol tartrate 25 mg tablet 25 mg PO BID htn 11/27/20 [History Last Taken 01/16/21] omega 4-qpw-yms-fish oil 1,000 mg (120 mg-180 mg) capsule (Fish Oil) 1 cap PO BID supplement 11/27/20 [History Last Taken 01/16/21] pregabalin 200 mg capsule 200 mg PO TID nerve pill 11/27/20 [History Last Taken 01/16/21] sertraline 50 mg tablet 50 mg PO DAILY depression 11/27/20 [History Last Taken 01/15/21] tamsulosin 0.4 mg capsule 0.4 mg PO QHS urine 11/27/20 [History Last Taken 01/14/21] pantoprazole 40 mg tablet,delayed release (Protonix) 40 mg PO BID #60 tabs 01/15/21 [Rx Last Taken 01/16/21] amlodipine 10 mg tablet 10 mg PO DAILY BP 01/16/21 [History Last Taken 01/16/21] bupropion HCl 150 mg 24 hr tablet, extended release 150 mg PO BID 01/16/21 [History Last Taken 01/16/21] metformin 500 mg tablet 500 mg PO BID DM 01/16/21 [History Last Taken 01/16/21] sucralfate 1 gram tablet 1 g PO ACHS STOMACH 01/16/21 [History Last Taken 01/16/21] insulin degludec 100 unit/mL (3 mL) subcutaneous pen (Tresiba FlexTouch U-100 insulin) 40 unit (0.4 mL) subcut QHS diabetes #0 mL 01/23/21 [Rx Last Taken Unknown] lactulose 20 gram/30 mL oral solution 20 g (30 mL) PO DAILY 30 days #900 mL 01/23/21 [Rx Last Taken Unknown] quetiapine 25 mg tablet 25 mg PO BID #60 tabs 01/23/21 [Rx Last Taken Unknown] amitriptyline 50 mg tablet 50 mg PO QHS 10/23/21 [History Last Taken Unknown] dupilumab 200 mg/1.14 mL subcutaneous pen injector (Dupixent) 300 mg subcut QWEEK 10/23/21 [History Last Taken Unknown] leflunomide 10 mg tablet (Arava) 10 mg PO DAILY 10/23/21 [History Last Taken Unknown] lisinopril 10 mg tablet 10 mg PO DAILY 10/23/21 [History Last Taken Unknown] amoxicillin 875 mg-potassium clavulanate 125 mg tablet 1 tab PO BID 14 days #28 tabs 12/18/21 [Rx Last Taken Unknown] meclizine 25 mg tablet 25 mg PO DAILY PRN dizziness #20 tabs 04/10/22 [Rx Last Taken Unknown] Allergy/AdvReac Type Severity Reaction Status Date / Time No Known Allergies Allergy Verified 03/17/23 05:47 Family History Mother Diabetes Father Diabetes Hypertension Social History housing: assisted living facility Smoking Status: Heavy Smoker (>10/day) alcohol intake: never substance use type: does not use ROS ROS ED ROS Narrative Nausea and vomiting. Chronic bilateral foot pain. Review of Systems ROS Unobtainable: Denies due to encephalopathy Constitutional Constitutional ED: Denies chills or fever(s) Eyes Eyes: Denies blurry vision ENT ENT ED: Denies ear pain Cardiovascular Cardiovascular: Denies chest pain Respiratory/Chest Respiratory/Chest: Denies cough or dyspnea Gastrointestinal Gastrointestinal: Reports nausea and vomiting; Denies abdominal pain Genitourinary Genitourinary ED: Denies dysuria or hematuria Musculoskeletal Musculoskeletal: Denies arthralgias Integumentary Denies abscess Neurologic Neurologic: Denies headache(s) Psychiatric Psychiatric: Denies anxiety Endocrine Endocrinology: Denies polydipsia Hematologic/Lymphatic Hematologic/Lymphatic: Denies easy bleeding Allergic/Immunologic Allergic/Immunologic ED: Denies mouth swelling or tongue swelling EXAM Physical Exam Narrative Exam Narrative: 57-year-old male no acute distress. Vital signs stable afebrile. H EENT exam poor eroded dentition. Moist weeks membranes. Lungs clear to auscultation bilateral. Heart regular rhythm rate about 80 no murmur. Chest wall nontender. Abdomen soft nontender. No distention. No peritoneal signs. No localizing tenderness. Soft with normal bowel sounds. Moving all 4 extremities. Chronic changes in both feet. Decreased sensation. Tender to palpation both feet. No cellulitis. Neurologically is awake and alert. He is diabetic neuropathies in both feet. Const Vital Signs: 03/17/23 05:41 Temperature 98.2 F Temperature Source Oral Pulse Rate 83 Respiratory Rate 18 Blood Pressure 134/64 H Blood Pressure Mean 87 Pulse Ox 97 Oxygen Delivery Method Room Air Positive well nourished, well developed and obese; Negative for cachectic, contractures or unkempt General Appearance ED: well developed and NAD; Negative for unkempt, cachectic or contractures Nutritional Appearance: obese; Negative for cachectic HEENT Reports moist mucous membranes normocephalic and atraumatic; Negative for trauma or tenderness Eyes PERRL General Eye ED: Negative for other Neck supple Thyroid: Negative for tender Lymph Lymphatic: Negative for other Chest Wall inspection of chest normal and palpation of chest normal Chest: Negative for other Resp no retractions and clear to auscultation bilaterally Effort and Inspection: Negative for pain with movement Auscultation: Negative for rales, rhonchi or wheezes Cardio regular rate, regular rhythm, S1 normal heart sound, S2 normal heart sound and no murmurs Rate: Negative for bradycardia or tachycardic Rhythm: Negative for abnormal rhythm GI non-tender, non-distended and no masses Inspection: Negative for abdominal distention Auscultation: normoactive bowel sounds Palpation: soft; Negative for tender or guarding Back/Spine no CVA tenderness General Back: Negative for CVA tenderness Cervical Spine: Negative for cervical spine tenderness Thoracic Spine / Upper Back: Negative for thoracic spinal tenderness Lumbar Spine / Lower Back: Negative for lumbar spinal tenderness Extremity full ROM; Negative for normal to inspection Extremity Narrative: Bilateral decreased sensation. Tenderness to palpation of both feet. Consistent with diabetic neuropathy. General Extremety ED: Negative for cyanosis or edema General Extremity: Negative for cyanosis or edema Neuro oriented x3 and CN's II-XII intact bilaterally Sensorium / Orientation: alert, oriented to person, oriented to place and oriented to time; Negative for orientation impaired, confused, lethargic or stuporous Motor Exam: strength 5/5 throughout Psych mental status grossly normal Appearance: Negative for unkempt Speech: No other Mood & Affect: Negative for anxious Skin no wounds Lesions: no lesions Rashes: no rashes Trauma: Negative for abrasion MDM MDM MDM Narrative Medical decision making narrative: 57-year-old male complaining of pain in both feet due to diabetic neuropathies. Will be given a single dose of Lyrica. He will need to follow-up with his primary care physician or the extended care facility that discharged him to get his prescriptions that he needs refilled. Given a dose of Zofran for nausea. We will check his blood sugar. His exam is benign. History & Record Review Additional record(s) reviewed:: Prior inpatient record, Prior outpatient record, Prior ED visit and Prior labs Lab Data Attestation: I reviewed the patient's lab results. Lab results narrative: BG T = 201. Discharge Plan Triage Chief Complaint: Lower Extremity Injury ED Provider: Ahsan Shin Dx/Rx/DC Orders Clinical Impression: History of bipolar disorder, Diabetic autonomic neuropathy, History of diabetes mellitus Instructions: Diabetic Neuropathy Prescriptions: No Action buspirone 5 mg Tablet 5 mg PO BID atorvastatin 80 mg Tablet 80 mg PO QHS tamsulosin 0.4 mg Capsule 0.4 mg PO QHS ferrous sulfate 325 mg (65 mg iron) Tablet 325 mg PO DAILY aspirin 81 mg Tablet,Chewable 81 mg PO DAILY sertraline 50 mg Tablet 50 mg PO DAILY insulin lispro 100 unit/mL Cartridge See Protocol subcut TID Protocol: 6. Sliding Scale Insulin Custom Dose/Route: Number of Units Condition: 0-150 Dose/Route: 0 Condition: 151-200 Dose/Route: 2 Condition: 201-250 Dose/Route: 4 Condition: 251-300 Dose/Route: 6 Condition: 301-350 Dose/Route: 8 Condition: 351-400 Dose/Route: 10 Protocol Text: Custom Sliding Scale ezetimibe 10 mg Tablet 10 mg PO DAILY metoprolol tartrate 25 mg Tablet 25 mg PO BID pregabalin 200 mg Capsule 200 mg PO TID cholecalciferol (vitamin D3) [Vitamin D3] 50 mcg (2,000 unit) Tablet 50 mcg PO DAILY omega 8-arp-rex-fish oil [Fish Oil] 1,000 mg (120 mg-180 mg) Capsule 1 cap PO BID duloxetine 60 mg Capsule, Delayed Rel Sprinkle 60 mg PO QHS mecobalamin (vitamin B12) [B12 Active] 1,000 mcg Tablet,Chewable 1,000 mcg PO DAILY pantoprazole [Protonix] 40 mg tablet,delayed release (DR/EC) 40 mg PO BID Qty: 60 0RF metformin 500 mg Tablet 500 mg PO BID bupropion HCl 150 mg Tablet Extended Release 24 Hr 150 mg PO BID sucralfate 1 gram tablet 1 g PO ACHS amlodipine 10 mg tablet 10 mg PO DAILY quetiapine 25 mg Tablet 25 mg PO BID Qty: 60 0RF lactulose 20 gram/30 mL Solution 20 g PO DAILY 30 Days Qty: 900 0RF Tresiba FlexTouch U-100 100 unit/mL (3 mL) insulin pen 40 unit SUBCUT QHS Qty: 0 0RF leflunomide [Arava] 10 mg Tablet 10 mg PO DAILY lisinopril 10 mg Tablet 10 mg PO DAILY Dupixent Pen 200 mg/1.14 mL Pen Injector 300 mg SUBCUT QWEEK amitriptyline 50 mg Tablet 50 mg PO QHS amoxicillin-pot clavulanate 875-125 mg tablet 1 tab PO BID 14 Days Qty: 28 0RF meclizine 25 mg tablet 25 mg PO DAILY PRN (Reason: dizziness) Qty: 20 0RF Primary Care Provider: Bel Ward Referrals: Bel Ward MD [Primary Care Provider] - As soon as possible (Call Dr. Ward's office this morning to get your medications refilled.) Activity Restrictions/Additional Instructions: Call your doctor's office this morning to get your medications refilled. Watch her blood sugars and check them at least twice daily. Disposition Disposition: Home, Self Care
[2023-03-17] MEDS: Pregabalin 50 MG Capsule PO (06:13)
[2023-03-17] MEDS: Ondansetron 8 MG Tablet PO (06:13)
[2023-03-17 06:33] LABS: Bedside Glucose 201 mg/dL (74-106)
--- NOTE | 2023-03-17 06:43 | NURSING ---
CALLED SQUAD, WITHIN THE HOUR
== END 2023-03-17 07:41 | disposition home or self-care (01) ==
PROVIDERS: Emergency Provider Emergency Medicine; PCP Internal Medicine; Visit Provider Emergency Medicine
DX: E11.40 Type 2 diabetes mellitus with diabetic neuropathy, unspecified (principal); F31.9 Bipolar disorder, unspecified; F17.200 Nicotine dependence, unspecified, uncomplicated; E78.00 Pure hypercholesterolemia, unspecified; R11.0 Nausea; I10 Essential (primary) hypertension; D64.9 Anemia, unspecified; E66.9 Obesity, unspecified
CPT/HCPCS: 82962; 99285

== ENCOUNTER 2023-03-18 20:01 | Emergency (ER) | payer MEDICARE, MEDICAID, SELFPAY ==
[2023-03-18 20:02] VITALS: BP 175/87; PULSE 77; RESP 16; TEMP 36.2; O2SAT 100; BMI 36.7
--- NOTE | 2023-03-18 20:25 | CT_ITS ---
INDICATION: abdominal pain COMPARISON: Abdominal CT 01/11/2021. IV Contrast dosage and agent: 100 cc [id number]-370 IV. RADIATION DOSAGE (If Supplied By Facility): CTDIvol = ( 18.78 ) mGy, DLP = ( 1253.61 ) mGycm A radiation dose optimization technique was used for this scan. FINDINGS: Contrast enhanced serial CT axial images through the abdomen and pelvis with coronal and sagittal reformatted series. PANCREAS: No peripancreatic fat stranding. BOWEL/MESENTERY: No dilated bowel loops. No significant free fluid. No free air. GALLBLADDER: Dependent gallbladder sludge without pericholecystic fat stranding. LIVER/STOMACH: No obvious abnormality. URINARY COLLECTING SYSTEM/ KIDNEYS: No obstructing ureteral calculus. No significant renal parenchymal abnormality. APPENDIX: Normal caliber gas containing appendix. UTERUS/ADNEXA: Left lower renal pole focal scarring unchanged from prior. ABDOMINAL/CHEST WALL: Mild bilateral gynecomastia. LUNG BASES: Unremarkable. BONES: Unremarkable for age. CT/Abdomen/Pelvis W IV Cont ONLY IMPRESSION: No acute abdominal abnormality is identified, to include normal appendix and no evidence of obstructing ureteral calculus. Electronically Signed: Jayson Calderon MD at 22:34 EDT ,
--- NOTE | 2023-03-18 20:25 | CT_ITS ---
INDICATION: headache EXAMINATION: CT BRAIN - CT Head or Brain W/O Contrast Injection TECHNIQUE: Serial CT axial images were obtained of the head without intravenous contrast. A radiation dose optimization technique was used for this scan. COMPARISON: 01/17/[address] Findings: Serial CT axial images of the head without contrast. BRAIN PARENCHYMA: Diffuse periventricular hypoattenuation likely chronic white matter ischemic changes. Mild diffuse volume loss. No evidence of intraparenchymal hemorrhage or hyperattenuating extra-axial fluid collection. VASCULAR STRUCTURES: Atherosclerotic vascular calcifications. BONES: Right frontal sinus is opacified. Bilateral maxillary sinus mucosal thickening with large left maxillary sinus retention cyst. Bilateral maxillary dental root lucencies consistent with dental root abscess formation. SCALP/REMAINING SOFT TISSUES: Unremarkable. ASPECTS Score for Acute Strokes, if applicable: 10 CT/Brain/Head without Contrast IMPRESSION: Age-related changes as above, without evidence of acute intracranial hemorrhage in this noncontrast head CT. Bilateral maxillary dental root lucencies consistent with dental root abscess formation. Sinus disease. Electronically Signed: Jayson Calderon MD at 22:27 EDT ,
--- NOTE | 2023-03-18 20:26 | EKG12_ITS ---
Test Reason : N/V Blood Pressure : / mmHG Vent. Rate : 073 BPM Atrial Rate : 073 BPM P-R Int : 206 ms QRS Dur : 100 ms QT Int : 408 ms P-R-T Axes : 046 -04 057 degrees QTc Int : 449 ms Normal sinus rhythm Nonspecific T wave abnormality Abnormal ECG Confirmed by ZULEYMA ARSHAD, ZENAIDA ([id number]), editor map GO DELANEY ([id number]) on 03/29/2023 7:38:40 AM Referred By: Confirmed By:BC AMOR MD
[2023-03-18] MEDS: Ondansetron 4 MG/2 ML Vial IV (20:43)
[2023-03-18] MEDS: 0.9% Normal Saline (1000mL) 1,000 ML 1000 ML IV (20:43)
[2023-03-18] MEDS: Morphine 4 MG/ML Syringe IV (20:44)
[2023-03-18 20:49] LABS: Absolute Lymphocyte Count 2.72 X10^3/uL (0.83-4.51); Absolute Neutrophil Count 6.2 X10^3/uL (2.0-7.7); Basophil# 0.06 X10^3/uL; Basophil% 0.6 % (0-1); Eosinophil# 0.06 X10^3/uL; Eosinophils% 0.6 % (0-5); Hematocrit 36.5 % (40-54); Hemoglobin 12.4 g/dL (13.0-16.5); Lymphocyte # 2.72 X10^3/ul (0.83-4.51); Lymphocyte % 27.7 % (19-41); Mean Corpuscular Volume 70.6 fL (80-94); Monocyte# 0.76 X10^3/uL; Monocyte% 7.7 % (0-10); NRBC Flagged by Analyzer 0 % (0-5); Neutrophil # 6.19 X10^3/uL (2.7-7.7); Neutrophil % 63.1 % (47-70); Platelet Count 303 K/mm3 (150-450); RBC Distribution Width SD 48.9 fl (35.1-43.9); Red Blood Count 5.17 M/mm3 (4.6-6.2); White Blood Count 9.8 K/mm3 (4.4-11.0)
--- NOTE | 2023-03-18 20:58 | RAD_ITS ---
INDICATION: chest pain EXAMINATION/TECHNIQUE: X-RAY - XR Chest 1 View COMPARISON: Chest radiograph 04/10/2022. Findings: Single frontal view of the chest. LUNG PARENCHYMA: Low lung volumes with hazy patchy bibasilar airspace disease. PLEURA: No pleural effusion. No pneumothorax. HEART/GREAT VESSELS: Cardiomediastinal silhouette is unremarkable. BONES: Osseous structures are unremarkable for age. RAD/Chest 1 View (Portable) IMPRESSION: Low lung volumes with hazy patchy bibasilar airspace disease, to include atelectasis versus pneumonia. Recommend follow-up to resolution. Electronically Signed: Jayson Calderon MD at 21:43 EDT ,
--- NOTE | 2023-03-18 21:02 | EX.ED.DYSGE1 ---
HPI History of Present Illness Chief Complaint: Nausea/Vomiting Narrative Narrative: 87-year-old male presenting with multiple complaints. Patient was seen here in the ED yesterday and apparently needed some pain medicine for his neuropathy. He was discharged back to his facility where he states he started to have abdominal pain. Use points to his lower abdomen but then states it hurts everywhere. He states has been vomiting since then. He states every time he starts to eat again he vomits. Everything he drinks comes up as well. He denies any diarrhea. He is not sure if he had a fever. He states that today sometime this morning he started to develop chest pain which feels like it squeezing him in his epigastrium. Denies lightheadedness or dizziness. Denies shortness of breath. Denies cough. Patient with past medical history of bipolar disorder, neuropathy, diabetes no history of cardiac disease that he is aware of. He states that he was told this morning that he has a urinary tract infection. He is not sure if he is medicated for the. [facility] Medical History Anxiety and depression Bipolar disorder Chronic anemia Decubitus ulcer of left buttock, stage 2 Decubitus ulcer of left buttock, stage 3 Delusional disorder Diabetes Diabetic ulcer of left heel Diabetic ulcer of right heel HTN (hypertension) Hypercholesterolemia Morbid obesity Neuropathy Rheumatoid arthritis RUQ abdominal pain Tobacco use Type 2 diabetes mellitus Uncontrolled type 2 diabetes mellitus with hyperosmolar nonketotic hyperglycemia Home Medications aspirin 81 mg chewable tablet 81 mg PO DAILY heart 11/27/20 [History Last Taken 01/16/21] atorvastatin 80 mg tablet 80 mg PO QHS cholesterol 11/27/20 [History Last Taken 01/14/21] buspirone 5 mg tablet 5 mg PO TID anxiety 11/27/20 [History Last Taken 01/16/21] cholecalciferol (vitamin D3) 50 mcg (2,000 unit) tablet (Vitamin D3) 50 mcg PO DAILY vitamin 11/27/20 [History Last Taken 01/16/21] duloxetine 60 mg capsule,delayed release sprinkle 60 mg PO QHS depression 11/27/20 [History Last Taken Unknown] ezetimibe 10 mg tablet 10 mg PO DAILY cholesterol 11/27/20 [History Last Taken 01/16/21] ferrous sulfate 325 mg (65 mg iron) tablet 325 mg PO DAILY supplement 11/27/20 [History Last Taken 01/16/21] insulin lispro 100 unit/mL subcutaneous cartridge See Protocol subcut TID diabetes 11/27/20 [History Last Taken 01/16/21] mecobalamin (vitamin B12) 1,000 mcg chewable tablet (B12 Active) 1,000 mcg PO DAILY vitamin 11/27/20 [History Last Taken 01/16/21] metoprolol tartrate 25 mg tablet 25 mg PO BID htn 11/27/20 [History Last Taken 01/16/21] omega [id number]-fish oil 1,000 mg (120 mg-180 mg) capsule (Fish Oil) 1 cap PO BID supplement 11/27/20 [History Last Taken 01/16/21] pregabalin 200 mg capsule 200 mg PO TID nerve pill 11/27/20 [History Last Taken 01/16/21] sertraline 50 mg tablet 75 mg PO DAILY depression 11/27/20 [History Last Taken 01/15/21] tamsulosin 0.4 mg capsule 0.4 mg PO QHS urine 11/27/20 [History Last Taken 01/14/21] pantoprazole 40 mg tablet,delayed release (Protonix) 40 mg PO BID #60 tabs 01/15/21 [Rx Last Taken 01/16/21] amlodipine 10 mg tablet 10 mg PO DAILY BP 01/16/21 [History Last Taken 01/16/21] bupropion HCl 150 mg 24 hr tablet, extended release 150 mg PO BID 01/16/21 [History Last Taken 01/16/21] metformin 500 mg tablet 500 mg PO BID DM 01/16/21 [History Last Taken 01/16/21] sucralfate 1 gram tablet 1 g PO ACHS STOMACH 01/16/21 [History Last Taken 01/16/21] insulin degludec 100 unit/mL (3 mL) subcutaneous pen (Tresiba FlexTouch U-100 insulin) 40 unit (0.4 mL) subcut QHS diabetes #0 mL 01/23/21 [Rx Last Taken Unknown] lactulose 20 gram/30 mL oral solution 20 g (30 mL) PO DAILY 30 days #900 mL 01/23/21 [Rx Last Taken Unknown] quetiapine 25 mg tablet 25 mg PO BID #60 tabs 01/23/21 [Rx Last Taken Unknown] amitriptyline 50 mg tablet 50 mg PO QHS 10/23/21 [History Last Taken Unknown] dupilumab 200 mg/1.14 mL subcutaneous pen injector (Dupixent) 300 mg subcut QWEEK 10/23/21 [History Last Taken Unknown] leflunomide 10 mg tablet (Arava) 10 mg PO DAILY 10/23/21 [History Last Taken Unknown] lisinopril 10 mg tablet 10 mg PO DAILY 10/23/21 [History Last Taken Unknown] amoxicillin 875 mg-potassium clavulanate 125 mg tablet 1 tab PO BID 14 days #28 tabs 12/18/21 [Rx Last Taken Unknown] meclizine 25 mg tablet 25 mg PO DAILY PRN dizziness #20 tabs 04/10/22 [Rx Last Taken Unknown] amitriptyline 75 mg tablet 75 mg PO QHS cholesterol 03/18/23 [History Last Taken Unknown] amoxicillin 875 mg-potassium clavulanate 125 mg tablet 1 tab PO BID #20 tabs 03/18/23 [Rx Last Taken Unknown] ascorbic acid (vitamin C) 500 mg chewable tablet (Acerola C) 500 mg PO DAILY 03/18/23 [History Last Taken Unknown] bupropion HCl 75 mg tablet 150 mg PO BID 03/18/23 [History Last Taken Unknown] dicyclomine 10 mg capsule 10 mg PO Q12H PRN STOMAC CRAMPS 03/18/23 [History Last Taken Unknown] fluticasone propionate 50 mcg/actuation nasal spray,suspension 1 spray intranasal DAILY PRN CONGESTION 03/18/23 [History Last Taken Unknown] insulin aspart U-100 See Rx Instructions subcut .COMPLEX 03/18/23 [History Last Taken Unknown] insulin aspart U-100 100 unit/mL (3 mL) subcutaneous pen (Novolog FlexPen U-100 Insulin aspart) subcut ACHS 03/18/23 [History Last Taken Unknown] melatonin 10 mg capsule 10 mg PO QHS 03/18/23 [History Last Taken Unknown] metformin 1,000 mg tablet 1,000 mg PO BID 03/18/23 [History Last Taken Unknown] multivit,stress formula-zinc tablet (Stress Formula with Zinc tablet) 1 tab PO DAILY 03/18/23 [History Last Taken Unknown] multivitamin,tx-minerals (Super Thera Ankur M tablet) 1 tab PO DAILY 03/18/23 [History Last Taken Unknown] ondansetron 4 mg disintegrating tablet 4 mg PO Q8H PRN PRN Nausea #14 tabs 03/18/23 [Rx Last Taken Unknown] ondansetron HCl 4 mg tablet 4 mg PO Q8H 03/18/23 [History Last Taken Unknown] pregabalin 225 mg capsule 225 mg PO TID 03/18/23 [History Last Taken Unknown] sertraline 100 mg tablet 100 mg PO QHS 03/18/23 [History Last Taken Unknown] sertraline 25 mg tablet 25 mg PO QHS 03/18/23 [History Last Taken Unknown] Allergy/AdvReac Type Severity Reaction Status Date / Time No Known Allergies Allergy Verified 03/18/23 20:02 Family History Mother Diabetes Father Diabetes Hypertension Social History housing: assisted living facility Smoking Status: Heavy Smoker (>10/day) alcohol intake: never substance use type: does not use ROS ROS ED Constitutional Constitutional ED: Denies chills, fever(s) or sweats Eyes Eyes: Denies blurry vision or change in vision ENT ENT ED: Denies ear pain or sore throat Cardiovascular Cardiovascular: Reports chest pain; Denies palpitations or racing heartbeat Respiratory/Chest Respiratory/Chest: Denies cough, dyspnea or sputum Gastrointestinal Gastrointestinal: Reports abdominal pain, nausea and vomiting; Denies constipation or diarrhea Genitourinary Genitourinary ED: Denies dysuria, hematuria or urinary frequency Musculoskeletal Musculoskeletal: Denies arthralgias, myalgias or neck pain Integumentary Denies abscess, Abrasions or rash Neurologic Neurologic: Denies headache(s), paresthesias or weakness Psychiatric Psychiatric: Denies anxiety, depression, suicidal ideation or suicidal thoughts Endocrine Endocrinology: Denies polydipsia or polyuria EXAM Physical Exam Const Vital Signs: 03/18/23 20:02 03/18/23 20:02 03/18/23 22:02 Temperature 97.1 F L Temperature Source Temporal Pulse Rate 77 88 Respiratory Rate 16 16 Blood Pressure 175/87 H 176/86 H Blood Pressure Mean 116 116 Pulse Ox 100 99 Oxygen Delivery Method Room Air Room Air 03/18/23 22:22 03/18/23 22:26 03/18/23 22:46 Temperature Temperature Source Pulse Rate 95 95 100 Respiratory Rate 16 20 H 17 Blood Pressure 188/93 H 161/86 H 155/83 H Blood Pressure Mean 124 111 107 Pulse Ox 100 99 97 Oxygen Delivery Method Room Air Room Air Positive well nourished General Appearance ED: Negative for pallor HEENT Reports dry mucous membranes trauma Mouth ED: Yes dry mucous membranes Mouth: dry mucous membranes Eyes PERRL and EOMs intact bilaterally Chest Wall inspection of chest normal Resp normal respiratory effort and clear to auscultation bilaterally Auscultation: Negative for rales, rhonchi or wheezes Cardio regular rate GI GI Narrative: Usually tender. Palpation: Negative for guarding, splenomegaly or mass Extremity normal to inspection Neuro oriented x3 and CN's II-XII intact bilaterally Sensorium / Orientation: alert Motor Exam: strength 5/5 throughout Psych mental status grossly normal Skin no rashes or lesions noted General Skin Exam: Negative for jaundice or pallor MDM MDM MDM Narrative Medical decision making narrative: Patient presenting with multiple complaints. Chest pain differential includes acute coronary syndrome, pneumonia, costochondritis, GERD. I did consider PE however patient is PERC negative. Abdominal pain differential includes gastritis, colitis, diverticulitis, UTI, pyelonephritis, dehydration, electrolyte abnormalities, anemia, GI bleed. CBC will be obtained to assess white blood cell count, hemoglobin, platelets. CMP to assess liver function, renal function, electrolytes. Lipase to assess for pancreatitis. Urinalysis to assess for UTI. Chest x-ray to rule out pneumonia. EKG and high-sensitivity troponin assess for ischemia/dysrhythmia. Patient medicated with morphine and Zofran. At this point he tells me he is developed a headache today. Since he is already medicated I will reevaluate him and see if it improved. Patient was also given IV fluids. CBC shows normal white blood cell count 9.8. Hemoglobin stable at 12.4. Platelets are normal at 303. Renal function electrolytes within normal limits. Glucose is elevated to 38 without anion gap. LFTs are normal. High-sensitivity troponin is 6. EKG on my interpretation shows a normal sinus rhythm with a ventricular rate of 72 bpm without sign of ischemia my interpretation. Chest x-ray on my interpretation shows no acute process. The radiologist reads this as atelectasis versus infiltrate. He did have a CT of the abdomen pelvis with IV contrast which was negative for acute intra-abdominal abnormalities and the CT does not show any evidence of pneumonia on the lung bases where the x-ray is interpreted as atelectasis versus infiltrates. He is not having cough or shortness of breath. He did ask for something more for his headache and he was given Reglan, Benadryl. Urinalysis negative for infection. CT brain was obtained due to his headache and does not show any acute cranial abnormalities. This does show evidence of dental caries and possible dental abscess. I went to reevaluate the patient and he does have poor dentition. He does state that he keeps losing teeth. Given this I will place him on Augmentin and given a dental referral sheet I will also give him Zofran for his facility. These were filled to the ER. To be discharged back to his facility. Impression: 1. Nausea/vomiting 2. Chest pain 3. Abdominal pain 4. Dental abscess Lab Data Attestation: I reviewed the patient's lab results. Labs: Laboratory Results - last 24 hr 03/18/23 03/18/23 20:05 21:45 WBC 9.8 RBC 5.17 Hgb 12.4 L Hct 36.5 L MCV 70.6 L MCH 24.0 L MCHC 34.0 RDW Std Deviation 48.9 H RDW Coeff of Nathalie 20.0 H Plt Count 303 MPV 10.0 Immature Gran % (Auto) 0.300 Neut % (Auto) 63.1 Lymph % (Auto) 27.7 [place] % (Auto) 7.7 Eos % (Auto) 0.6 Baso % (Auto) 0.6 Absolute Neuts (auto) 6.2 Absolute Lymphs (auto) 2.72 Nucleated RBC % 0 Sodium 139 Potassium 4.0 Chloride 105 Carbon Dioxide 25.0 Anion Gap 9 BUN 15 Creatinine 1.14 Estim Creat Clear Calc 72.35 Est GFR (MDRD) Af Amer 85 Est GFR (MDRD) Non-Af 70 BUN/Creatinine Ratio 13.2 Glucose 238 H Calcium 9.1 Total Bilirubin 0.40 AST 10 L ALT 22 Alkaline Phosphatase 131 H Troponin I High Sens 6 Total Protein 8.5 H Albumin 3.7 Globulin 4.8 H Albumin/Globulin Ratio 0.8 L Lipase 20 Urine Color Yellow Urine Clarity Clear Urine pH 6.5 Ur Specific [place] 1.010 Urine Protein Negative Urine Glucose (UA) 50 H Urine Ketones 150 A* Urine Occult Blood Negative Urine Nitrite Negative Urine Bilirubin Negative Urine Urobilinogen Normal Ur Leukocyte Esterase Negative Urine RBC 0 SEEN Urine WBC 0 SEEN Ur Squamous Epith Cells 0 SEEN Urine Bacteria 0 SEEN Urine Mucus 0 SEEN Radiography Diagnostic Testing: Clinical Impression(s) from Imaging Studies Abdomen/Pelvis CT 03/18/23 20:25 IMPRESSION: No acute abdominal abnormality is identified, to include normal appendix and no evidence of obstructing ureteral calculus. Electronically Signed: Jayson Calderon MD at 22:34 EDT , Brain CT 03/18/23 20:25 IMPRESSION: Age-related changes as above, without evidence of acute intracranial hemorrhage in this noncontrast head CT. Bilateral maxillary dental root lucencies consistent with dental root abscess formation. Sinus disease. Electronically Signed: Jayson Calderon MD at 22:27 EDT , Chest X-Ray 03/18/23 20:58 IMPRESSION: Low lung volumes with hazy patchy bibasilar airspace disease, to include atelectasis versus pneumonia. Recommend follow-up to resolution. Electronically Signed: Jayson Calderon MD at 21:43 EDT , Discharge Plan Triage Chief Complaint: Nausea/Vomiting ED Provider: Kurtis Cross Dx/Rx/DC Orders Instructions: Self-Care for Headaches, ED Dental Abscess, ED Vomiting (Adult), ED Abdominal Pain Unkn Cause Male... Prescriptions: New ondansetron 4 mg tablet,disintegrating 4 mg PO Q8H PRN PRN (Reason: Nausea) Qty: 14 0RF amoxicillin-pot clavulanate 875-125 mg tablet 1 tab PO BID Qty: 20 0RF No Action buspirone 5 mg Tablet 5 mg PO TID atorvastatin 80 mg Tablet 80 mg PO QHS tamsulosin 0.4 mg Capsule 0.4 mg PO QHS ferrous sulfate 325 mg (65 mg iron) Tablet 325 mg PO DAILY aspirin 81 mg Tablet,Chewable 81 mg PO DAILY sertraline 50 mg Tablet 75 mg PO DAILY insulin lispro 100 unit/mL Cartridge See Protocol subcut TID Protocol: 6. Sliding Scale Insulin Custom Dose/Route: Number of Units Condition: 0-150 Dose/Route: 0 Condition: 151-200 Dose/Route: 2 Condition: 201-250 Dose/Route: 4 Condition: 251-300 Dose/Route: 6 Condition: 301-350 Dose/Route: 8 Condition: 351-400 Dose/Route: 10 Protocol Text: Custom Sliding Scale ezetimibe 10 mg Tablet 10 mg PO DAILY metoprolol tartrate 25 mg Tablet 25 mg PO BID pregabalin 200 mg Capsule 200 mg PO TID cholecalciferol (vitamin D3) [Vitamin D3] 50 mcg (2,000 unit) Tablet 50 mcg PO DAILY omega [id number] oil [Fish Oil] 1,000 mg (120 mg-180 mg) Capsule 1 cap PO BID duloxetine 60 mg Capsule, Delayed Rel Sprinkle 60 mg PO QHS mecobalamin (vitamin B12) [B12 Active] 1,000 mcg Tablet,Chewable 1,000 mcg PO DAILY pantoprazole [Protonix] 40 mg tablet,delayed release (DR/EC) 40 mg PO BID Qty: 60 0RF metformin 500 mg Tablet 500 mg PO BID bupropion HCl 150 mg Tablet Extended Release 24 Hr 150 mg PO BID sucralfate 1 gram tablet 1 g PO ACHS amlodipine 10 mg tablet 10 mg PO DAILY quetiapine 25 mg Tablet 25 mg PO BID Qty: 60 0RF lactulose 20 gram/30 mL Solution 20 g PO DAILY 30 Days Qty: 900 0RF insulin degludec [Tresiba FlexTouch U-100] 100 unit/mL (3 mL) insulin pen 40 unit SUBCUT QHS Qty: 0 0RF leflunomide [Arava] 10 mg Tablet 10 mg PO DAILY lisinopril 10 mg Tablet 10 mg PO DAILY Dupixent Pen 200 mg/1.14 mL Pen Injector 300 mg SUBCUT QWEEK amitriptyline 50 mg Tablet 50 mg PO QHS amoxicillin-pot clavulanate 875-125 mg tablet 1 tab PO BID 14 Days Qty: 28 0RF meclizine 25 mg tablet 25 mg PO DAILY PRN (Reason: dizziness) Qty: 20 0RF insulin aspart U-100 [Novolog FlexPen U-100 Insulin] 100 unit/mL (3 mL) insulin pen SUBCUT ACHS Rx Instructions: 8 units subcutaneously daily; every morning at breakfast 4 units subcutaneously daily after lunch and dinner insulin aspart U-100 [Novolog FlexPen U-100 Insulin] See Rx Instructions subcut .COMPLEX Rx Instructions: subcutaneously; sliding scale amitriptyline 75 mg tablet 75 mg PO QHS bupropion HCl 75 mg tablet 150 mg PO BID metformin 1,000 mg tablet 1,000 mg PO BID Rx Instructions: with meals pregabalin 225 mg capsule 225 mg PO TID ascorbic acid (vitamin C) [Acerola C] 500 mg tablet,chewable 500 mg PO DAILY Super Thera Ankur M Tablet 1 tab PO DAILY Stress Formula with Zinc Tablet 1 tab PO DAILY sertraline 100 mg tablet 100 mg PO QHS sertraline 25 mg tablet 25 mg PO QHS melatonin 10 mg capsule 10 mg PO QHS dicyclomine 10 mg capsule 10 mg PO Q12H PRN (Reason: STOMAC CRAMPS) fluticasone propionate 50 mcg/actuation spray,suspension 1 spray INTRANASAL DAILY PRN ondansetron HCl 4 mg tablet 4 mg PO Q8H Primary Care Provider: Bel Ward Referrals: Bel Ward MD [Primary Care Provider] - Disposition Disposition: Home, Self Care
[2023-03-18 21:07] LABS: ALB/GLOB Ratio 0.8 RATIO (0.9-2.4); AST(SGOT) 10 U/L (15-37); Alanine Aminotransfer ALT/SGPT 22 U/L (16-61); Albumin, Serum 3.7 g/dL (3.2-5.0); Alkaline Phosphatase 131 U/L (45-117); Anion Gap 9 (5-15); BUN 15 mg/dL (7-18); BUN/Creat Ratio 13.2 RATIO (10-20); Calcium,Total 9.1 mg/dL (8.5-10.1); Chloride 105 mmol/L (98-107); Creatinine, Serum 1.14 mg/dL (0.70-1.30); EST Glomerular Filtration Rate 70 mL/min (>60); Est Glom Filt Rate - Afr Amer 85 mL/min (>60); Estimated Creatinine Clearance 72.35 ml/min; Globulin 4.8 g/dL (2.2-4.2); Glucose 238 mg/dL (74-106); Lipase 20 U/L (13-75); Protein, Total 8.5 g/dL (6.4-8.2); Sodium Level 139 mmol/L (136-145); Troponin-I HS 6 pg/mL (3.0-78.0)
[2023-03-18 21:53] LABS: Bacteria 0 SEEN /hpf (None Seen); Mucous, Urine 0 SEEN /hpf (<or=2+); Red Blood Cells-Urine 0 SEEN /hpf (0-5); Squamous Epithelial Cells - UA 0 SEEN /hpf (0-5); White Blood Cells 0 SEEN /hpf (0-5)
[2023-03-18 21:54] LABS: Color, Urine Yellow (Yellow); Glucose, Dipstick 50 mg/dl (Normal); Leukocyte Esterase-Dipstick Negative /ul (Negative); Nitrite-Dipstick Negative (Negative); Occult Blood-Urine Negative /ul (Negative); Protein-Dipstick Negative (Negative); Urine Bilirubin Dipstick Negative (Negative); Urine Clarity Clear (Clear); Urine Urobilinogen Normal (Normal); Urine pH 6.5 (5.0 - 8.0)
[2023-03-18 21:55] LABS: Ketone-Dipstick 150 mg/dl (Negative)
[2023-03-18 22:02] VITALS: BP 176/86; PULSE 88; RESP 16; O2SAT 99
[2023-03-18] MEDS: Metoclopramide 10 MG/2 ML Vial IV (22:21)
[2023-03-18] MEDS: DiphenhydrAMINE 50 MG/ML Syringe 25 MG IV (22:21)
[2023-03-18 22:22] VITALS: BP 188/93; PULSE 95; RESP 16; O2SAT 100
[2023-03-18 22:26] VITALS: BP 161/86; PULSE 95; RESP 20; O2SAT 99
[2023-03-18] MEDS: Amox/Clavulanate 875 MG Tablet PO (22:45)
[2023-03-18 22:46] VITALS: BP 155/83; PULSE 100; RESP 17; O2SAT 97
[2023-03-18 23:56] VITALS: BP 134/75; PULSE 104; RESP 16; O2SAT 99
[2023-03-19 00:05] VITALS: BP 145/80; PULSE 73; RESP 12; O2SAT 99
== END 2023-03-19 01:29 | disposition home or self-care (01) ==
PROVIDERS: Emergency Provider Student in an Organized Health Care Education/Training Program; PCP Internal Medicine; Visit Provider Student in an Organized Health Care Education/Training Program
DX: R11.2 Nausea with vomiting, unspecified (principal); F31.9 Bipolar disorder, unspecified; E11.638 Type 2 diabetes mellitus with other oral complications; E11.40 Type 2 diabetes mellitus with diabetic neuropathy, unspecified; E11.65 Type 2 diabetes mellitus with hyperglycemia; Z79.4 Long term (current) use of insulin; R07.9 Chest pain, unspecified; F17.200 Nicotine dependence, unspecified, uncomplicated; R51.9 Headache, unspecified; E78.00 Pure hypercholesterolemia, unspecified; I10 Essential (primary) hypertension; Z79.84 Long term (current) use of oral hypoglycemic drugs; Z79.899 Other long term (current) drug therapy; K02.9 Dental caries, unspecified; K04.7 Periapical abscess without sinus
CPT/HCPCS: 70450; 71045; 74177; 80053; 81001; 83690; 84484; 85025; 93005; 96361; 96374; 96375; 99285; J7030; P9612; Q9967; A4216; J2405

== ENCOUNTER 2023-10-26 18:42 | Emergency (ER) | payer MEDICARE, MEDICAID, SELFPAY ==
[2023-10-26 18:43] VITALS: BP 139/84; PULSE 115; RESP 18; TEMP 36.1; O2SAT 95
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
--- NOTE | 2023-10-26 19:50 | RAD_ITS ---
STUDY: X-RAY - LEFT FOOT CLINICAL: Male, 58 years old. injury TECHNIQUE: 3 view(s) of the foot. COMPARISON: None. FINDINGS: Normal talus, calcaneus, and tarsal bones. Normal visualized subtalar, talonavicular, calcaneocuboid, tarsal and tarsometatarsal articulations. Normal metatarsi. Normal metatarsophalangeal joint of the great toe. Normal tibial and fibular sesamoid bones. Normal interphalangeal joint of the great toe. Deformity of the first proximal phalanx seen consistent with previous healed fracture. Normal second through fifth metatarsophalangeal joints. Normal interphalangeal joints and phalanges of the lesser toes. The soft tissue structures are unremarkable. There is no demonstrated fracture. RAD/Foot min 3 Views IMPRESSION: No definite acute or significant abnormality seen. Electronically Signed: Adonis Friedman MD at 20:11 EDT ,
--- NOTE | 2023-10-26 19:50 | RAD_ITS ---
STUDY: X-RAY - LEFT ANKLE REASON FOR EXAM: Male, 58 years old. injury TECHNIQUE: 3 view(s) of the ankle. COMPARISON: None. FINDINGS: Normal visualized distal tibia and fibula. Normal medial and lateral malleoli. Normal tibiotalar articulation and ankle mortise. Normal visualized talus and calcaneus. The visualized subtalar, talonavicular, calcaneocuboid and tarsal articulations are normal. There is no demonstrated fracture. The soft tissue structures are unremarkable. RAD/Ankle min 3 Views IMPRESSION: Normal x-ray examination of the ankle. Electronically Signed: Adonis Friedman MD at 20:12 EDT ,
[2023-10-26 20:58] VITALS: BP 135/78; PULSE 95; RESP 15; TEMP 36.4; O2SAT 98
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
== END 2023-10-26 21:11 | disposition home or self-care (01) ==
PROVIDERS: Emergency Provider Emergency Medicine; PCP Internal Medicine; Visit Provider Emergency Medicine
DX: S93.402A Sprain of unspecified ligament of left ankle, initial encounter (principal); L89.323 Pressure ulcer of left buttock, stage 3; E11.621 Type 2 diabetes mellitus with foot ulcer; E11.622 Type 2 diabetes mellitus with other skin ulcer; L97.419 Non-pressure chronic ulcer of right heel and midfoot with unspecified severity; L97.429 Non-pressure chronic ulcer of left heel and midfoot with unspecified severity; E11.40 Type 2 diabetes mellitus with diabetic neuropathy, unspecified; F17.200 Nicotine dependence, unspecified, uncomplicated; X58.XXXA Exposure to other specified factors, initial encounter; Y92.129 Unspecified place in nursing home as the place of occurrence of the external cause; E78.00 Pure hypercholesterolemia, unspecified; I10 Essential (primary) hypertension
CPT/HCPCS: 73610; 73630; 99284

== ENCOUNTER 2024-11-17 01:08 | Emergency (ER) | payer MEDICARE, MEDICAID, SELFPAY ==
[2024-11-17] VITALS (11 sets, daily range): BP systolic 113–166; BP diastolic 63–76; PULSE 80–93; RESP 16–18; TEMP 36.6–36.8; O2SAT 77–100; BMI 32.7
--- OUTSIDE RECORDS SUMMARY | 2024-11-17 01:22 | XMS RPT_ITS | CCD ---
Author Organization [facility] Care Team Providers Care Dispatcher Service Or Work Name Role Phone Shiloh Vernon Unavailable Unavailable Shiloh Vernon Unavailable Unavailable JESSICA DAVIDSON Admitting Unavailable JESSICA DAVIDSON Attending Unavailable JESSICA DAVIDSON Primary Care Unavailable Unavailable Primary Care Provider UnavailDr. Lior Ferguson Attending Provider [phone] Dr. Lior Salcido Other Provider [phone] Anibal JACQUES, EXTENSION PROFESSOR-C Wild Hobbs Primary Care Provid er Merlyn JACQUES, EXTENSION PROFESSOR-C Arlin Delgadillo Attending Provider Rachel Chery MD Primary Care Provider Dr. Lior Salcido Attending Provider [phone] Dr. Lior Salcido Other Provider [phone] Anibal JACQUES, EXTENSION PROFESSOR-C Wild Hobbs Primary Care Provid er Merlyn JACQUES, EXTENSION PROFESSOR-C Arlin Delgadillo Referring Provider Dr. Lior Salcido Other Provider [phone] Anibal JACQUES, EXTENSION PROFESSOR-C Wild Hobbs Primary Care Provid er Merlyn JACQUES, EXTENSION PROFESSOR-C Arlin E Attending Provider Merlyn JACQUES, EXTENSION PROFESSOR-C Arlin E Referring Provider Dr. Lior Salcido Attending Provider [phone] Dr. Lior Salcido Other Provider [phone] Anibal JACQUES, EXTENSION PROFESSOR-C Wild Hobbs Primary Care Provid er Rachel Chery MD Primary Care Provider Dr. Lior Salcido Attending Provider [phone] Dr. Lior Salcido Other Provider Dr. Rachel Chery Primary Care Provider Gaby EXTENSION PROFESSOR, EXTENSION PROFESSOR-C Teresa Referring Provider Unavail able Rachel Chery MD Primary Care Provider Rachel Chery MD Primary Care Provider Hieu Watson MD Primary Care Provider Unavailable Primary Care Provider Unavailabl e Rachel Chery MD Primary Care Provider Dr. Lior Salcido Attending Provider [phone] Lior Salcido Other Provider Dr. Rachel Chery Primary Care Provider Gaby EXTENSION PROFESSOR, EXTENSION PROFESSOR-C Teresa Referring Provider Unavail able Rachel Chery MD Primary Care Provider Rachel Chery MD Primary Care Provider Natalie Cherya Efren Primary Care Unavailable Ahsan Shin Attending Unavailable Talamprandy, Rachel D Primary Care Unavailable Hieu Tee Attending Unavailable Hieu Tee Attending Unavailable Ed, Rachel Efren Primary Care Unavailable Talamprandy, Rachel D Primary Care Unavailable Kurtis Cross Attending Unavailable Talamprandy, Rachel D Primary Care Unavailable Cade Astorga Attending Unavailable Rachel Chery MD Primary Care Provider Quinn Cristina MD Unavailable Rachel Chery MD Unavailable Silver Harp RN Unavailable PERLA WHITE Attending Unavailable KENY KUMAR Referring Unavailable TALAMPRANDY, RACHEL Efren Primary Care Unavailable YOHANAAMPRANDY, RACHEL D Primary Care Unavailable STAR BURRELL Admitting Unavailable KONSTANTIN MARTIN Attending Unavailable KENY KUMAR Consulting Unavailable Loyd CHEN, Silver Unavailable Candelario PLEATING MACHINE OPERATOR.UNATTENDED GROUND SENSOR SPECIALIST, Mike Unavailable Gaby PLEATING MACHINE OPERATOR.M1 ARMOR CREWMAN, Teresa Unavailable Gaby PLEATING MACHINE OPERATOR.M1 ARMOR CREWMAN, Teresa Unavailable Gaby PLEATING MACHINE OPERATOR.M1 ARMOR CREWMAN, Teresa Unavailable Candelario PLEATING MACHINE OPERATOR.UNATTENDED GROUND SENSOR SPECIALIST, Mike Unavailable TALAMPAS, RACHEL D Primary Care Unavailable HIEU MUNOZ Attending Unavailable CANDELARIO, MIKE Referring Unavailable TALAMPAS, RACHEL D Primary Care Unavailable CANDELARIO, MIKE Referring Unavailable TALAMPAS, RACHEL D Primary Care Unavailable CANDELARIO, MIKE Attending Unavailable TALAMPAS, RACHEL D Attending Unavailable TALAMPAS, RACHEL D Primary Care Unavailable SELF Referring Unavailable TALAMPAS, RACHEL D Primary Care Unavailable CANDELARIO, MIKE Referring Unavailable CANDELARIO, MIKE Attending Unavailable TALAMPAS, RACHEL D Primary Care Unavailable TALAMPAS, RACHEL D Primary Care Unavailable TESTRAKE, ALL Referring Unavailable TESTRAKE, ALL Attending Unavailable TALAMPAS, RACHEL D Primary Care Unavailable TESTRAKE, ALL Referring Unavailable TESTRAKE, ALL Attending Unavailable TALAMPAS, RACHEL D Primary Care Unavailable TESTRAKE, ALL Referring Unavailable TALAMPAS, RACHEL D Primary Care Unavailable TESTRAKE, ALL Referring Unavailable TALAMPAS, RACHEL D Primary Care Unavailable TESTRAKE, ALL Attending Unavailable TESTRAKE, ALL Referring Unavailable TALAMPAS, RACHEL D Primary Care Unavailable TALAMPAS, RACHEL D Attending Unavailable TALAMPAS, RACHEL D Primary Care Unavailable TALAMPAS, RACHEL D Attending Unavailable SELF Referring Unavailable Medications Current Medications Medication Drug Class(es) Dates Sig (Normalized) Sig (Original) acetaminophen 500 mg oral tablet (20 sources) Start: 03-26-2024 take 2 tablets by mouth every eight hours as needed acetaminophen (TYLENOL) 500 mg tablet Take 2 tablets by mouth every 8 hours as needed for pain. 30 tablet 03/26/2024 Active End: 09-13-2023 take 650 mg rectal route every four hours as needed acetaminophen (TYLENOL) 650 mg suppository 650 mg by RECTAL route every 4 hours as needed for pain or fever (specify temp.). 0 09/13/2023 Discontinued (Discontinued by Patient) Comment on above: 650 mg by RECTAL rou te every 4 hours as needed for pain or fever (specify temp.). [id number] 200 actuat albuterol 0.09 mg/actuat metered dose inhaler (20 sources) beta2-Adrenergic Agonist Start: 023 take 2 puff(s) by inhalation every four hours as needed for wheezing albuterol HFA (PROVENTIL HFA, VENTOLIN HFA) 90 mcg/actuation inhaler Inhale 2 Puffs as instructed every 4 hours as needed for wheezing/shortness of breath. 1 Each 08/11/2022 Active Comment on above: Inhale 2 Puffs as in structed every 4 hours as needed for wheezing/shortness of breath. amitriptyline hydrochloride 50 mg oral tablet (20 sources) Tricyclic Antidepressant Start: 024 End: 025 take 1 tablet by mouth once daily at bedtime amitriptyline (ELAVIL) 50 mg tablet Indications: Depression, unspecified depression type , Peripheral polyneuropathy Take 1 tablet by mouth daily at bedtime. 30 tablet 5 05/25/2024 Active Start: 10-23-2021 take 50 mg by mouth at bedtime Amitriptyline Active 50 MG PO AT BEDTIME October 22, 2021 11:00pm Start: 11-27-2020 End: 11-19-2022 take 1 tablet by mouth once daily at bedtime amitriptyline (ELAVIL) 75 mg tablet Indications: Depression, unspecified depression type , Peripheral polyneuropathy Take 1 tablet by mouth daily at bedtime. 30 tablet 5 06/11/2022 11/19/2022 Discontinued Comment on above: Take 75 mg by mouth daily at bedtime. Take 1 tablet by nora th daily at bedtime. amLODIPine 5 mg oral tablet (20 sources) Dihydropyridine Calcium Channel Jhon Start: 11-23-2023 amLODIPine (NORVASC) 5 mg tablet Indications: Primary hypertension Take 1 tablet by mouth once daily. May also take 1 tablet once daily as needed (For BP over 150/95). 60 tablet 5 11/23/2023 Active Start: 01-15-2021 End: 11-23-2023 take 1 tablet by mouth once daily amLODIPine (NORVASC) 10 mg tablet Indications: Primary hypertension Take 1 tablet by mouth once daily. 30 tablet 5 06/11/2022 11/19/2022 Discontinued Comment on above: Take 10 mg by mouth once daily. Take 1 tablet by nora th once daily. ascorbic acid 500 mg oral tablet (20 sources) Vitamin C Start: 06-23-2023 End: 06-23-2023 take 1 tablet by mouth once daily ascorbic acid, vitamin C, (VITAMIN C) 500 mg tablet Take 1 tablet by mouth once daily. 90 tablet 3 06/23/2023 Active Start: 03-18-2023 take 1 tablet by nora th once daily Ascorbic Acid (Vitamin C) (Acerola C) 500 mg tablet,chewable Active 500 MG PO DAILY March 17, 2023 11:00pm Comment on above: Take 500 mg by mouth once daily. Take 1 tablet by nora th once daily. aspirin 81 mg oral tablet (20 sources) Platelet Aggregation Inhibitor, Nonsteroidal Anti-inflammatory Drug Start: 06-23-2023 End: 06-23-2023 take 1 capsule by mouth once daily aspirin 81 mg cap Take 1 Each by mouth once daily. 90 capsule 3 06/23/2023 Active Start: 11-27-2020 take 81 mg by mouth once daily Aspirin Active 81 MG PO DAILY November 26, 2020 11:00pm Comment on above: Take by mouth. Take by mouth once d aily. Take 1 Each by mouth once daily. atorvastatin 80 mg oral tablet (20 sources) HMG-CoA Reductase Inhibitor Start: 1 End: 4 take 1 tablet by mouth once daily atorvastatin (LIPITOR) 80 mg tablet Indications: Type 2 diabetes mellitus with other specified complication, with long-term current use of insulin (HCC) Take 1 tablet by mouth once daily. 30 tablet 5 02/18/2024 Active Comment on above: Take 80 mg by mouth once daily. Take 1 tablet by nora th once daily. baclofen 10 mg oral tablet (1 source) gamma-Aminobutyric Acid-ergic Agonist Start: 5 End: 5 take 1 tablet by mouth once daily baclofen 10 mg tablet Take 1 tablet by mouth once daily. 30 tablet 11/13/2024 12/13/2024 Active Blood-Glucose Meter (20 sources) Start: Blood-Glucose Meter 1 Each four times daily. 1 Each 06/22/2023 Suspended Start: 06-22-2023 Blood-Glucose Meter 1 Each four times daily. 1 Each 06/22/2023 Active Start: 06-22-2023 Blood-Glucose Meter 1 Each four times daily. 1 Each 0 06/22/2023 Active End: 06-22-2023 Blood-Glucose Meter 1 Each f our times daily. 0 06/22/2023 Discontinued Comment on above: 1 Each four times da [place]. Blood-Glucose Meter monitoring kit (1 source) Start: 12-11-2022 End: 12-12-2022 Blood-Glucose Meter monitoring kit Indications: Type 2 diabetes mellitus with other specified complication, with long-term current use of insulin ([facility]) Glucose Meter of Choice - Kit - Dx: Type 2 DM - Controlled E11.9 1 Each 0 12/11/2022 12/12/2022 Active Comment on above: Glucose Meter of [facility] ice - Kit - Dx: Type 2 DM - Controlled E11.9 Blood-Glucose Meter,Continuous (DEXCOM G7 COTTON WEIGHER) misc (20 sources) Start: 06-16-2023 Blood-Glucose Meter,Continuous (DEXCOM G7 COTTON WEIGHER) misc Dispense one chief innovation officer kit. USE FOR CONTINUOUS GLUCOSE MONITORING. MULTIPLE INSULIN INJECTIONS. E11.9 1 Each 06/16/2023 Suspended Start: 06-16-2023 Blood-Glucose Meter,Continuous (DEXCOM G7 COTTON WEIGHER) misc Dispense one chief innovation officer kit. USE FOR CONTINUOUS GLUCOSE MONITORING. MULTIPLE INSULIN INJECTIONS. E11.9 1 Each 06/16/2023 Active Start: 06-16-2023 Blood-Glucose Meter,Continuous (DEXCOM G7 COTTON WEIGHER) misc Dispense one chief innovation officer kit. USE FOR CONTINUOUS GLUCOSE MONITORING. MULTIPLE INSULIN INJECTIONS. E11.9 1 Each 0 06/16/2023 Active Comment on above: Dispense one receive r kit. USE FOR CONTINUOUS GLUCOSE MONITORING. MULTIPLE INSULIN INJECTIONS. E11.9 Blood-Glucose Sensor (DEXCOM G7 SENSOR) kimberly (20 sources) Start: 06-16-2023 Blood-Glucose Sensor (DEXCOM G7 SENSOR) kimberly CHANGE SENSOR EVERY 10 days. USE FOR CONTINUOUS GLUCOSE MONITORING. MULTIPLE INSULIN INJECTIONS. E11.9 9 Each 3 06/16/2023 Suspended Start: 06-16-2023 Blood-Glucose Sensor (DEXCOM G7 SENSOR) kimberly CHANGE SENSOR EVERY 10 days. USE FOR CONTINUOUS GLUCOSE MONITORING. MULTIPLE INSULIN INJECTIONS. E11.9 9 Each 3 06/16/2023 Active Comment on above: CHANGE SENSOR EVERY 10 days. USE FOR CONTINUOUS GLUCOSE MONITORING. MULTIPLE INSULIN INJECTIONS. E11.9 busPIRone hydrochloride 15 mg oral tablet (20 sources) Start: take 1 tablet by mouth three times daily busPIRone (BUSPAR) 15 mg tablet Indications: Depression, unspecified depression type Take 1 tablet by mouth three times a day. 90 tablet 5 02/18/2024 Active Start: 11-27-2020 End: 02-18-2024 take 1 tablet by mouth three times daily busPIRone (BUSPAR) 5 mg tablet Indications: Depression, unspecified depression type Take 1 tablet by mouth three times a day. 90 tablet 11 06/23/2023 02/18/2024 Discontinued Start: 11-27-2020 take 5 mg by mouth twice daily Buspirone Active 5 MG PO TWICE A DAY November 27, 2020 12:00am Comment on above: Take 1 tablet by nora th three times daily. Take 1 tablet by nora th three times a day. cholecalciferol 0.125 mg oral capsule (20 sources) Vitamin D Start: 06-18-2023 Cholecalciferol, Vitamin D3, 125 mcg (5,000 unit) cap [The details of the medication are not available because there are pending changes by a home health clinician.] 90 capsule 3 06/18/2023 Active Start: 06-18-2023 Cholecalcifero l, Vitamin D3, 125 mcg (5,000 unit) cap Take 1 tab daily with food. 90 capsule 3 06/18/2023 Active Start: 11-27-2020 take 1 tablet by nora th once daily Cholecalciferol (Vitamin D3) (Vitamin D3) 50 mcg (2,000 unit) Tablet Active 50 MCG PO DAILY November 26, 2020 11:00pm End: 06-16-2023 Cholecalciferol, Vitamin D3, 50 mcg (2,000 unit) cap Take by mouth. 06/16/2023 Discontinued Comment on above: Take by mouth. Take 1 tab daily wit h food. Compression Socks, Large misc (4 sources) Start: 10-13-2024 Compression Socks, Large misc Knee-high compression socks with toes, Jobst Sensi socks 8 to 15 mmHg or similar covered by his insurance. Disp 3 pair, 3 refills 1 each 5 10/13/2024 Active Diaper,Brief, Adult,Disposable (20 sources) Start: 02-18-2024 Diaper,Brief, Adult,Disposable Indications: Type 2 diabetes mellitus with diabetic neuropathy, with long-term current use of insulin (HCC) , Urge incontinence of urine Change at least twice daily 64 Each 11 02/18/2024 Suspended Start: 02-18-2024 Diaper,Brief, Adult,Disposable Indications: Type 2 diabetes mellitus with diabetic neuropathy, with long-term current use of insulin (HCC) , Urge incontinence of urine Change at least twice daily 64 Each 11 02/18/2024 Active dicyclomine hydrochloride 10 mg oral capsule (5 sources) Anticholinergic Start: 03-18-2023 End: 06-14-2023 take 10 mg by mouth every twelve hours Dicyclomine Active 10 MG PO Q12H March 17, 2023 11:00pm Comment on above: Take 10 mg by mouth as needed. 0.5 ml dulaglutide 3 mg/ml auto-injector (20 sources) GLP-1 Receptor Agonist Start: 11-10-2023 inject 1.5 mg by subcutaneous injection every week dulaglutide (TRULICITY) 1.5 mg/0.5 mL pen injector Inject 1.5 mg subcutaneously one time a week. 12 Each 3 11/10/2023 Active Start: 06-16-2023 End: 11-10-2023 inject 0.75 mg by subcutaneous injection every week dulaglutide (TRULICITY) 0.75 mg/0.5 mL pen injector Inject 0.75 mg subcutaneously one time a week. 4 Each 5 06/16/2023 11/10/2023 Discontinued Comment on above: Inject 0.75 mg subcu taneously one time a week. Dupilumab (16 sources) Start: 10-23-2021 Dupilumab (Dupixent Pen) 200 mg/1.14 mL Pen Injector Active 300 MG SC EVERY WEEK October 22, 2021 11:00pm Start: 10-23-2021 Dupilumab (Dup ixent Pen) 200 mg/1.14 mL Pen Injector Active 300 MG SC EVERY WEEK October 23, 2021 12:00am 2 ml dupilumab 150 mg/ml prefilled syringe (20 sources) Interleukin-4 Receptor alpha Antagonist Start: 09-07-2023 inject 300 mg by subcutaneous injection every other week DUPIXENT SYRINGE 300 mg/2 mL injection Inject 300 mg subcutaneously every 2 weeks. 09/07/2023 Active Start: 05-19-2023 End: 06-17-2023 inject 600 mg by subcutaneous injection every week, then inject 300 mg by subcutaneous injection every other week dupilumab (DUPIXENT PEN) 300 mg/2 mL pen injection Indications: Eczema, unspecified type Inject 600 mg subcutaneously one time a week for 1 day, THEN 300 mg every 2 weeks for 28 days. 4 Each 05/19/2023 06/17/2023 End: 05-19-2023 dupilumab (DUPIXENT PEN) 300 mg/2 mL pen Indications: Eczema, unspecified type Inject subcutaneously every 2 weeks. 05/19/2023 Discontinued Comment on above: Inject subcutaneousl y every 2 weeks. ezetimibe 10 mg oral tablet (20 sources) Dietary Cholesterol Absorption Inhibitor Start: End: take 1 tablet by mouth once daily ezetimibe (ZETIA) 10 mg tablet Take 1 tablet by mouth once daily. 30 tablet 5 02/18/2024 Active Comment on above: Take 10 mg by mouth once daily. Take 1 tablet by nora th once daily. ferrous sulfate 325 mg oral tablet (20 sources) Start: take 1 tablet by mouth once daily ferrous sulfate 325 mg (65 mg iron) tablet Indications: Dizziness , Iron deficiency anemia, unspecified iron deficiency anemia type Take 1 tablet by mouth once daily. 90 tablet 1 10/17/2024 Active Start: 05-26-2024 End: 10-17-2024 take 1 tablet by mouth every other day ferrous sulfate 325 mg (65 mg iron) tablet Take 1 tablet by mouth every other day. 30 tablet 05/26/2024 10/17/2024 Discontinued Start: 11-27-2020 take 325 mg by mouth once juaquin y Ferrous Sulfate Active 325 MG PO DAILY November 26, 2020 11:00pm fluticasone propionate 0.05 mg/actuat metered dose nasal spray (20 sources) Corticosteroid Start: 10-01-2023 take 2 spray(s) by mouth once daily as needed fluticasone (FLONASE) 50 mcg/actuation nasal spray Use 2 Sprays in each nostril once daily as needed for cold/allergy symptoms. Rinse mouth after use. 1 Each 5 10/01/2023 Active Start: 03-18-2023 Fluticasone Pr opionate Active 1 SPRAY INTRANASAL DAILY NEEDED March 17, 2023 11:00pm End: 09-13-2023 fluticasone (FLONASE) 50 mcg /actuation nasal spray Use 1 [place] in each nostril as needed. 09/13/2023 Discontinued (Discontinued by Patient) Comment on above: Use 1 [place] in each nostril as needed. glucose 0.4 mg/mg oral gel (20 sources) Start: 03-26-2024 dextrose 40 % gel [The details of the medication are not available because there are pending changes by a home health clinician.] 03/26/2024 Active Start: 03-26-2024 dextrose 40 % gel Take 15 g by mouth as needed. 03/26/2024 Active 3 ml insulin aspart, human 100 unt/ml pen injector (20 sources) Insulin Analog Start: 11-10-2023 insulin aspart U-100 (NOVOLOG FLEXPEN U-100 INSULIN) 100 unit/mL (3 mL) USE SLIDING SCALE ONLY. Sliding scale 150=0, 151-200-1 units, 201-250=2 units, 251-300=3 units, 301-350=4 units, 351-400=5 units based on pre meal blood sugar only as needed. 15 mL 3 11/10/2023 Active Start: 11-10-2023 insulin aspart U-100 (NOVOLOG FLEXPEN U-100 INSULIN) 100 unit/mL (3 mL) [The details of the medication are not available because there are pending changes by a home health clinician.] 15 mL 3 11/10/2023 Active Start: 03-18-2023 inject 4 [IU] by sub cutaneous injection once daily after lunch Insulin Aspart U-100 (Insulin Aspart U-100 100 Unit/Ml (3 Ml) Subcutaneous Pen) 100 unit/mL (3 mL) insulin pen Active SC BEFORE MEALS AND AT BEDTIME March 17, 2023 11:00pm 8 units subcutaneously daily; every morning at breakfast 4 units subcutaneously daily after lunch and dinner Start: 03-18-2023 insulin aspart U-100 Active 0 SC .COMPLEX March 17, 2023 11:00pm subcutaneously; sliding scale Start: 03-18-2023 insulin aspart U-100 Active 0 SC .COMPLEX March 18, 2023 12:00am subcutaneously; sliding scale Start: 02-25-2022 End: 11-10-2023 inject 8 [IU] by subcutaneous injection at breakfast insulin aspart U-100 (NOVOLOG FLEXPEN U-100 INSULIN) 100 unit/mL (3 mL) Inject subcutaneously: 8 units breakfast, 4 units lunch, 4 units dinner, 2 units with 8 pm snack (if eating) PLUS Sliding scale 150=0, 151-200-1 units, 201-250=2 units, 251-300=3 units, 301-350=4 units, 351-400=5 units based on pre meal blood sugar only as needed. 15 mL 3 07/16/2022 06/16/2023 Discontinued Start: 02-11-2022 inject 10 [IU] by kamara bcutaneous injection at breakfast insulin aspart U-100 (NOVOLOG FLEXPEN U-100 INSULIN) 100 unit/mL (3 mL) Inject subcutaneously: 10 units breakfast, 6 units lunch, 6 units dinner, 4 units with 8 pm snack (if eating) PLUS Sliding scale 150=0, [id number], 201-250=4units, 251-300=6units, 301-350=8 units, 351-400=10units based on pre meal blood sugar only as needed. 15 mL 0 02/11/2022 Active Start: 02-04-2022 inject 6 [IU] by sub cutaneous injection three times daily before mealtime insulin aspart U-100 (NOVOLOG FLEXPEN U-100 INSULIN) 100 unit/mL (3 mL) Inject 6 Units subcutaneously three times daily before meals. sliding scale 150=0, [phone], 201-250=4units, 251-300=6units, 301-350=8 units, 351-400=10units 15 mL 0 02/04/2022 Active inject 8 [IU] by sub cutaneous injection once daily at bedtime, then inject 4 [IU] by subcutaneous injection in the morning, then inject 2 [IU] by subcutaneous injection at bedtime insulin aspart (NOVOLOG FLEXPEN U-100 INSULIN SUBCUTANEOUS) Indications: Type 2 diabetes mellitus with hyperglycemia, with long-term current use of insulin (HCC) Inject subcutaneously daily at bedtime. 8 units in the morning, 4 units at lunch, 2 units at bedtime Active End: 04-14-2024 inject 4 [IU] by subcutaneous injection twice daily insulin aspart human (NOVOLOG) 100 unit/ml soln Indications: Type 2 diabetes mellitus with hyperglycemia, with long-term current use of insulin (HCC) Inject 4 Units subcutaneously two times a day. 04/14/2024 Discontinued (Changing Therapy/Dosage Form) End: 03-26-2024 inject 8 [IU] by subcutaneous injection once daily in the morning insulin aspart (NOVOLOG FLEXPEN U-100 INSULIN SUBCUTANEOUS) Indications: Type 2 diabetes mellitus with hyperglycemia, with long-term current use of insulin (HCC) Inject 8 Units subcutaneously daily at 6 am. 03/26/2024 Discontinued inject 2 [IU] by sub cutaneous injection once daily at bedtime insulin aspart (NOVOLOG FLEXPEN U-100 INSULIN SUBCUTANEOUS) Indications: Type 2 diabetes mellitus with hyperglycemia, with long-term current use of insulin (HCC) Inject 2 Units subcutaneously daily at bedtime. Suspended inject 8 [IU] by sub cutaneous injection once daily in the morning insulin aspart (NOVOLOG FLEXPEN U-100 INSULIN SUBCUTANEOUS) Indications: Type 2 diabetes mellitus with hyperglycemia, with long-term current use of insulin (HCC) Inject 8 Units subcutaneously daily at 6 am. Active inject 2 [IU] by sub cutaneous injection once daily at bedtime insulin aspart (NOVOLOG FLEXPEN U-100 INSULIN SUBCUTANEOUS) Indications: Type 2 diabetes mellitus with hyperglycemia, with long-term current use of insulin (HCC) Inject 2 Units subcutaneously daily at bedtime. Active inject 8 [IU] by sub cutaneous injection once daily in the morning insulin aspart (NOVOLOG FLEXPEN U-100 INSULIN SUBCUTANEOUS) Indications: Type 2 diabetes mellitus with hyperglycemia, with long-term current use of insulin (HCC) Inject 8 Units subcutaneously daily at 6 am. 0 Active inject 2 [IU] by sub cutaneous injection once daily at bedtime insulin aspart (NOVOLOG FLEXPEN U-100 INSULIN SUBCUTANEOUS) Indications: Type 2 diabetes mellitus with hyperglycemia, with long-term current use of insulin ([facility]) Inject 2 Units subcutaneously daily at bedtime. 0 Active Comment on above: Inject 6 Units subcu taneously three times daily before meals. sliding scale 150=0, [phone], 201-250=4units, 251-300=6units, 301-350=8 units, 351-400=10units Inject subcutaneousl y: 10 units breakfast, 6 units lunch, 6 units dinner, 4 units with 8 pm snack (if eating) PLUS Sliding scale 150=0, [id number], 201-250=4units, 251-300=6units, 301-350=8 units, 351-400=10units based on pre meal blood sugar only as needed. Inject subcutaneousl y: 8 units breakfast, 4 units lunch, 4 units dinner, 2 units with 8 pm snack (if eating) PLUS Sliding scale 150=0, 151-200-1 units, 201-250=2 units, 251-300=3 units, 301-350=4 units, 351-400=5 units based on pre meal blood sugar only as needed. Insulin Degludec (Tresiba Flextouch U-100) 100 unit/mL (3 mL) insulin pen (2 sources) Start: 01-23-2021 Insulin Degludec (Tresiba Flextouch U-100) 100 unit/mL (3 mL) insulin pen Active 40 UNIT SC AT BEDTIME 0 January 23, 2021 12:13pm Start: 01-23-2021 Insulin Deglud ec (Tresiba Flextouch U-100) 100 unit/mL (3 mL) insulin pen Active 40 UNIT SC AT BEDTIME 0 January 23, 2021 1:13pm 3 ml insulin glargine 100 unt/ml pen injector (20 sources) Insulin Analog Start: 05-26-2024 End: 05-26-2024 insulin glargine (BASAGLAR KWIKPEN U-100 INSULIN) 100 unit/mL (3 mL) Indications: Type 2 diabetes mellitus with hyperglycemia, with long-term current use of insulin (HCC) Inject 12 Units subcutaneously daily at bedtime. Will adjust insulin orders as needed and send new RX when dose adjusted 3 mL 3 05/26/2024 05/26/2024 Discontinued Start: 11-23-2023 End: 05-26-2024 inject 10 [IU] by subcutaneous injection once daily at bedtime as needed insulin glargine (BASAGLAR KWIKPEN U-100 INSULIN) 100 unit/mL (3 mL) Indications: Type 2 diabetes mellitus with hyperglycemia, with long-term current use of insulin (HCC) Inject 10 Units subcutaneously daily at bedtime. Will adjust insulin orders as needed and send new RX when dose adjusted 3 mL 3 05/26/2024 Active Start: 11-23-2023 End: 11-23-2023 insulin glargine (BASAGLAR K WIKPEN U-100 INSULIN) 100 unit/mL (3 mL) Inject 16 units once daily E11.9 41 mL 3 11/23/2023 11/23/2023 Discontinued Start: 06-16-2023 End: 11-10-2023 insulin glargine (BASAGLAR K WIKPEN U-100 INSULIN) 100 unit/mL (3 mL) Inject 40 units once daily E11.9 41 mL 3 07/01/2023 11/10/2023 Discontinued Comment on above: Inject 40 units once daily E11.9 isopropyl alcohol 0.7 ml/ml medicated pad (20 sources) Start: 06-22-2023 End: 06-22-2023 alcohol swabs Apply 1 Each to affected area four times daily. 400 Each 3 06/22/2023 Active Comment on above: Apply 1 Each to affe cted area four times daily. iv contrast (will be provided with radiology test) (4 sources) Start: 08-19-2023 End: 08-20-2023 iv contrast (will be provided with radiology test) MRI foot/toes LT Inject, intravenously, once for 1 dose. No IV access, insert saline lock prior to the beginning of sedation, infusion, injection of imaging exam. Discontinue saline lock post exam. If Pt. has a central line or IVAD, may access for administration according to line specific nursing protocol. Once exam is complete flush line and de-access according to line specific nursing protocol in the MR contrast administration guidelines link. 1 Each 0 08/19/2023 08/20/2023 Active Start: 08-19-2023 End: 08-20-2023 iv contrast (will be provide d with radiology test) MRI foot/toes RT Inject, intravenously, once for 1 dose. No IV access, insert saline lock prior to the beginning of sedation, infusion, injection of imaging exam. Discontinue saline lock post exam. If Pt. has a central line or IVAD, may access for administration according to line specific nursing protocol. Once exam is complete flush line and de-access according to line specific nursing protocol in the MR contrast administration guidelines link. 1 Each 0 08/19/2023 08/20/2023 Active Comment on above: MRI foot/toes LT Inj ect, intravenously, once for 1 dose. No IV access, insert saline lock prior to the beginning of sedation, infusion, injection of imaging exam. Discontinue saline lock post exam. If Pt. has a central line or IVAD, may access for administration according to line specific nursing protocol. Once exam is complete flush line and de-access according to line specific nursing protocol in the MR contrast administration guidelines link. MRI foot/toes RT Inj ect, intravenously, once for 1 dose. No IV access, insert saline lock prior to the beginning of sedation, infusion, injection of imaging exam. Discontinue saline lock post exam. If Pt. has a central line or IVAD, may access for administration according to line specific nursing protocol. Once exam is complete flush line and de-access according to line specific nursing protocol in the MR contrast administration guidelines link. lactulose 667 mg/ml oral solution (16 sources) Osmotic Laxative Start: take 20 g by mouth once daily Lactulose Active 20 GM PO DAILY 900 January 22, 2021 11:00pm leflunomide 10 mg oral tablet (20 sources) Antirheumatic Agent Start: 4 take 1 tablet by mouth once daily leflunomide (ARAVA) 10 mg tablet Take 1 tablet by mouth once daily. 30 tablet 5 05/19/2023 Active Start: 11-27-2020 End: 11-19-2022 take 1 tablet by mouth once daily leflunomide (ARAVA) 10 mg tablet Take 1 tablet by mouth once daily. 30 tablet 5 06/11/2022 11/19/2022 Discontinued Comment on above: Take 10 mg by mouth once daily. Take 1 tablet by nora th once daily. levoFLOXacin 500 mg oral tablet (10 sources) Quinolone Antimicrobial Start: 09-14-19 End: 10-26-19 24 take 1 tablet by mouth once daily levoFLOXacin (LEVAQUIN) 500 mg tablet Take 1 tablet by mouth once daily. 42 tablet 0 09/14/2023 10/26/2023 Active lisinopril 10 mg oral tablet (20 sources) Angiotensin Converting Enzyme Inhibitor Start: 05-19-19 End: 02-18-20 take 1 tablet by mouth once daily lisinopril (ZESTRIL) 10 mg tablet Indications: Primary hypertension Take 1 tablet by mouth once daily. 30 tablet 5 02/18/2024 Active Start: 10-23-2021 End: 11-19-2022 take 1 tablet by mouth once daily lisinopril (ZESTRIL, PRINIVIL) 10 mg tablet Indications: Primary hypertension Take 1 tablet by mouth once daily. 30 tablet 5 06/16/2022 11/19/2022 Discontinued Start: 11-27-2020 End: 01-15-2021 take 10 mg by mouth once daily Lisinopril Discontinued 10 MG PO DAILY November 26, 2020 11:00pm January 15, 2021 11:36am Comment on above: Take 10 mg by mouth once daily. Take 1 tablet by nora th once daily. loperamide hydrochloride 2 mg oral tablet (20 sources) Opioid Agonist Start: 03-28-2024 take 1 tablet by mouth every six hours as needed loperamide HCl (IMODIUM A-D) 2 mg tab Take 2 mg by mouth every 6 hours as needed (loose stool). Patient should start on March 28, 2024. 03/28/2024 Active End: 09-13-2023 loperamide (IMODIUM) 2 mg ca p(s) Take 2 mg by mouth as needed for diarrhea. 09/13/2023 Discontinued (Discontinued by Patient) Comment on above: Take 2 mg by mouth a s needed for diarrhea. meclizine hydrochloride 25 mg oral tablet (20 sources) Antiemetic Start: 2 End: 3 take 1 tablet by mouth every six hours as needed for dizziness meclizine (ANTIVERT) 25 mg tab Indications: Vertigo Take 1 tablet by mouth every 6 hours as needed (dizziness). 30 tablet 08/26/2022 Active Start: 04-10-2022 take 25 mg by mouth once daily Meclizine Active 25 MG PO DAILY April 10, 2022 12:00am Comment on above: Take 1 tablet by nora th every 6 hours as needed (dizziness). mecobalamin 1 mg chewable tablet (16 sources) Start: take 1 tablet by mouth once daily Mecobalamin (Vitamin B12) (B12 Active) 1,000 mcg Tablet,Chewable Active 1000 MCG PO DAILY November 26, 2020 11:00pm Start: 11-27-2020 take 1 tablet by nora th once daily Mecobalamin (Vitamin B12) (B12 Active) 1,000 mcg Tablet,Chewable Active 1000 MCG PO DAILY November 26, 2020 11:00pm melatonin 10 mg oral capsule (20 sources) Start: 03-18-2023 take 10 mg by mouth at bedtime Melatonin Active 10 MG PO AT BEDTIME March 17, 2023 11:00pm Comment on above: Take 1 capsule by mo [facility] daily at bedtime. metoprolol tartrate 25 mg oral tablet (20 sources) beta-Adrenergic Jhon Start: 05-19-2023 End: 02-18-2024 take 1 tablet by mouth twice daily metoprolol tartrate, short acting, (LOPRESSOR) 25 mg tablet Indications: Primary hypertension Take 1 tablet by mouth two times a day. 60 tablet 5 02/18/2024 Active Start: 01-26-2022 End: 06-12-2022 take 1 tablet by mouth once daily metoprolol tartrate, short acting, (LOPRESSOR) 25 mg tablet Indications: Primary hypertension Take 1 tablet by mouth once daily. 30 tablet 5 06/11/2022 06/12/2022 Discontinued Start: 11-27-2020 End: 11-19-2022 take 1 tablet by mouth twice daily metoprolol tartrate, short acting, (LOPRESSOR) 25 mg tablet Indications: Primary hypertension Take 1 tablet by mouth twice daily. 60 tablet 5 06/12/2022 11/19/2022 Discontinued Comment on above: Take 1 tablet by nora th once daily. Take 1 tablet by nora th twice daily. Take 1 tablet by nora th two times a day. multivit,calc,mins/ir on/folic (THERA-M ORAL) (20 sources) take 1 tablet by mouth once daily in the morning multivit,calc,mins/iro n/folic (THERA-M ORAL) Take 1 tablet by mouth daily at 6 am. Suspended take 1 tablet by nora th once daily in the morning multivit,calc,mins/iron/folic (THERA-M O RAL) Take 1 tablet by mouth daily at 6 am. Active take 1 tablet by nora th once daily in the morning multivit,calc,mins/iron/folic (THERA-M O RAL) Take 1 tablet by mouth daily at 6 am. 0 Active Multivit,Stress Formula-Zinc (Stress Formula With Zinc) tablet (2 sources) Start: 03-18-2023 take 1 tablet by mouth once daily Multivit,Stress Formula-Zinc (Stress Formula With Zinc) tablet Active 1 TABLET PO DAILY March 17, 2023 11:00pm Start: 03-18-2023 take 1 tablet by nora th once daily Multivit,Stress Formula-Zinc (Stress Formula With Zinc) tablet Active 1 TABLET PO DAILY March 18, 2023 12:00am Multivitamin,Tx-Minerals (Super Thera Ankur M) tablet (2 sources) Start: 03-18-2023 take 1 tablet by mouth once daily Multivitamin,Tx-Minerals (Super Thera Ankur M) tablet Active 1 TABLET PO DAILY March 17, 2023 11:00pm Start: 03-18-2023 take 1 tablet by nora once daily Multivitamin,Tx-Minerals (Super Thera Vi te M) tablet Active 1 TABLET PO DAILY March 18, 2023 12:00am nitrofurantoin, macrocrystals 25 mg / nitrofurantoin, monohydrate 75 mg oral capsule (2 sources) Nitrofuran Antibacterial Start: 04-14-2022 End: 04-24-2022 take 1 capsule by mouth twice daily nitrofurantoin monohydrate and macrocrystal (MACROBID) 100 mg capsule Take 1 capsule by mouth twice daily for 10 days. 20 capsule 0 04/14/2022 04/24/2022 Active Comment on above: Take 1 capsule by mo [facility] twice daily for 10 days. omega-3 acid ethyl esters (fdc) 1000 mg oral capsule (16 sources) Start: 11-27-2020 take 1 capsule by mouth twice daily [place] 5-Spt-Jzi-Fish Oil (Fish Oil) 1,000 mg (120 mg-180 mg) Capsule Active 1 CAP PO TWICE A DAY November 26, 2020 11:00pm ondansetron 4 mg disintegrating oral tablet (20 sources) Serotonin-3 Receptor Antagonist Start: 03-18-2023 take 1 tablet by mouth every eight hours as needed ondansetron orally disintegrating (ZOFRAN ODT) 4 mg disintegrating tablet Take 4 mg by mouth every 8 hours as needed for nausea/vomiting. 03/18/2023 Active Start: 03-18-2023 take 4 mg by mouth e very eight hours Ondansetron Hcl Active 4 MG PO Q8H March 17, 2023 11:00pm Comment on above: Take 4 mg by mouth e very 8 hours as needed for nausea/vomiting. pantoprazole 40 mg delayed release oral tablet (20 sources) Proton Pump Inhibitor Start: 05-19-19 End: 02-18-20 take 1 tablet by mouth once daily pantoprazole DR (PROTONIX) 40 mg tablet Take 1 tablet by mouth once daily. 30 tablet 5 02/18/2024 Active Start: 01-26-2022 End: 11-19-2022 take 1 tablet by mouth once daily pantoprazole DR (PROTONIX) 40 mg tablet Take 1 tablet by mouth once daily. 30 tablet 5 06/11/2022 11/19/2022 Discontinued Start: 01-15-2021 End: 06-11-2022 take 1 tablet by mouth twice daily Pantoprazole (Protonix) 40 mg tablet,delayed release (DR/EC) Active 40 MG PO TWICE A DAY 60 January 14, 2021 11:00pm Start: 11-27-2020 End: 01-15-2021 take 40 mg by mouth once daily Pantoprazole Discontinu ed 40 MG PO DAILY November 26, 2020 11:00pm January 15, 2021 11:37am Comment on above: Take 1 tablet by nora th once daily. polyethylene glycol 3350 36678 mg powder for oral solution (20 sources) Osmotic Laxative Start: 10-17-2024 polyethylene glycol 3350 17 gram/dose powder Drink a mix of 1 scoop in 8oz of water/beverage once daily as needed for constipation. 238 g 3 10/17/2024 Active Start: 03-26-2024 End: 10-17-2024 polyethylene glycol 3350 17 gram packet Take 1 Packet by mouth once daily as needed for constipation. Dissolve dose in 4 - 8 ounces of liquid and take as directed. 20 Packet 03/26/2024 10/17/2024 Discontinued End: 09-13-2023 polyethylene glycol 3350 (MD RALAX) 17 gram/dose powder Take by mouth as needed for constipation. Dissolve dose in 4 - 8 ounces of liquid and take as directed. 09/13/2023 Discontinued (Discontinued by Patient) Comment on above: Take by mouth as nee ded for constipation. Dissolve dose in 4 - 8 ounces of liquid and take as directed. pregabalin 225 mg oral capsule (20 sources) Start: 03-17-20 End: 02-16-20 take 1 capsule by mouth three times daily pregabalin (LYRICA) 225 mg capsule Indications: Type 2 diabetes mellitus with other specified complication, with long-term current use of insulin (HCC) , Neuropathy , Peripheral polyneuropathy Take 1 capsule by mouth three times a day for 180 days. 90 capsule 5 08/19/2024 02/15/2025 Active Start: 11-11-2022 End: 02-09-2023 take 1 capsule by mouth three times daily Pregabalin (LYRICA) 225 mg capsule Indications: Neuropathy , Type 2 diabetes mellitus with other specified complication, with long-term current use of insulin (HCC) , Peripheral polyneuropathy Take 1 capsule by mouth three times daily for 90 days. 90 capsule 2 11/11/2022 Active Start: 11-27-2020 End: 09-13-2023 pregabalin (LYRICA) 225 mg c apsule Take 200 mg by mouth. 0 11/27/2020 09/13/2023 Discontinued (Duplicate Entry) Start: 11-27-2020 End: 12-05-2022 take 1 capsule by mouth three times daily Pregabalin (LYRICA) 200 mg capsule Indications: Type 2 diabetes mellitus with other specified complication, with long-term current use of insulin (HCC) , Peripheral polyneuropathy Take 1 capsule by mouth three times daily for 90 days. 90 capsule 2 09/06/2022 11/11/2022 Discontinued Comment on above: Take 1 capsule by mo uth three times daily for 28 days. Take 1 capsule by mo uth three times daily for 56 days. Do not start before May 06, 2022. Take 1 capsule by mo uth three times daily for 90 days. Take 1 capsule by mo uth three times a day for 90 days. Take 200 mg by mouth . rifAMPin 300 mg oral capsule (10 sources) Rifamycin Antibacterial Start: 09-14-19 End: 10-26-19 take 1 capsule by mouth twice daily rifAMPin (RIFADIN) 300 mg capsule Take 1 capsule by mouth two times a day. 84 capsule 0 09/14/2023 10/26/2023 Active sucralfate 1000 mg oral tablet (20 sources) Aluminum Complex Start: 01-16-20 End: 05-19-19 take 1 tablet by mouth four times daily sucralfate (CARAFATE) 1 gram tablet Take 1 tablet by mouth four times daily. 120 tablet 5 05/19/2023 Active Comment on above: Take 1 g by mouth fo ur times daily. Take 1 tablet by nora four times daily. tamsulosin hydrochloride 0.4 mg oral capsule (20 sources) alpha-Adrenergic Jhon Start: 05-19-19 take 2 capsules by mouth once daily tamsulosin (FLOMAX) 0.4 mg Take 2 capsules by mouth once daily. 60 capsule 5 05/19/2023 Active Start: 05-12-2022 End: 11-19-2022 take 2 capsules by mouth once daily tamsulosin (FLOMAX) 0.4 mg Take 2 capsules by mouth once daily. 60 capsule 5 06/11/2022 11/19/2022 Discontinued Start: 11-27-2020 End: 05-12-2022 take 0.4 mg by mouth at bedtime Tamsulosin Active 0.4 MG PO AT BEDTIME November 26, 2020 11:00pm Comment on above: Take 0.4 mg by mouth once daily. Take 2 capsules by [facility] once daily. vitamin b12 1 mg oral tablet (20 sources) Vitamin B12 Start: 06-16-2023 take 1 tablet by mouth once daily cyanocobalamin (VITAMIN B-12) 1,000 mcg tab Take 1 tablet by mouth once daily. 90 tablet 3 06/16/2023 Active Comment on above: Take 1 tablet by nora once daily. vitamin b6 50 mg oral tablet (20 sources) Start: 04-03-2024 End: 05-03-2024 take 1 tablet by mouth once daily pyridoxine, vitamin B6, (VITAMIN B-6) 50 mg tablet Indications: Vitamin B6 deficiency Take 1 tablet by mouth once daily. 30 tablet 04/03/2024 Active zinc sulfate 220 mg oral capsule (20 sources) Start: 03-27-2024 End: 04-03-2024 take 1 capsule by mouth once daily zinc sulfate 220 mg (50 mg zinc) capsule Take 1 capsule by mouth once daily for 7 doses. 7 capsule 03/27/2024 Active Completed/Discontinued Medications Medication Drug Class(es) Dates Sig (Normalized) Sig (Original) amoxicillin 875 mg / clavulanate 125 mg oral tablet (20 sources) Penicillin-class Antibacterial Start: 09-23-2023 End: 10-03-2023 amoxicillin-clavu lanate potassium (AUGMENTIN) 875-125 mg per tablet Take 1 tablet by mouth two times a day for 10 days. FOR 10 DAYS. 20 tablet 1 09/23/2023 10/03/2023 Start: 09-09-2023 End: 09-19-2023 amoxicillin-clavulanate pota ssium (AUGMENTIN) 875-125 mg per tablet Take 1 tablet by mouth two times a day for 10 days. FOR 10 DAYS. 20 tablet 0 09/09/2023 09/19/2023 Active Start: 08-19-2023 End: 09-06-2023 amoxicillin-clavulanate pota ssium (AUGMENTIN) 875-125 mg per tablet Take 1 tablet by mouth two times a day for 10 days. FOR 10 DAYS. 20 tablet 0 08/27/2023 09/06/2023 Active Start: 07-07-2023 End: 07-25-2023 amoxicillin-clavulanate pota ssium (AUGMENTIN) 875-125 mg per tablet Take 1 tablet by mouth two times a day for 10 days. FOR 10 DAYS. 20 tablet 0 07/15/2023 07/25/2023 Active Start: 12-18-2021 take 1 tablet by nora th twice daily Amoxicillin-Pot Clavulanate Active 1 TABLET PO TWICE A DAY March 17, 2023 11:00pm Comment on above: Take 1 tablet by nora th two times a day for 10 days. FOR 10 DAYS. Blood-Glucose Meter,Continuous (DEXCOM G6 COTTON WEIGHER) misc (20 sources) Start: 05-19-2023 End: 06-16-2023 Blood-Glucose Meter,Continuous (DEXCOM G6 COTTON WEIGHER) misc Indications: Type 2 diabetes mellitus with hyperglycemia, with long-term current use of insulin (HCC) Use to check blood sugar at least four (4) times daily. 1 Each 05/19/2023 06/16/2023 Discontinued Start: 03-31-2023 End: 06-16-2023 Blood-Glucose Meter,Continuo us (DEXCOM G6 COTTON WEIGHER) misc Indications: Type 2 diabetes mellitus with other specified complication, with long-term current use of insulin (HCC) Use to check blood sugar at least four (4) times daily. 1 Each 03/31/2023 06/16/2023 Discontinued Start: 03-31-2023 Blood-Glucose Meter,Continuous (DEXCOM G6 COTTON WEIGHER) misc Indications: Type 2 diabetes mellitus with other specified complication, with long-term current use of insulin (HCC) Use to check blood sugar at least four (4) times daily. 1 Each 0 03/31/2023 Active Start: 12-02-2022 End: 03-30-2023 Blood-Glucose Meter,Continuo us (DEXCOM G6 COTTON WEIGHER) misc Indications: Type 2 diabetes mellitus with other specified complication, with long-term current use of insulin (HCC) Use to check blood sugar at least four (4) times daily. 1 Each 0 12/02/2022 03/30/2023 Discontinued Start: 12-02-2022 Blood-Glucose Meter,Continuous (DEXCOM G6 COTTON WEIGHER) misc Indications: Type 2 diabetes mellitus with other specified complication, with long-term current use of insulin (HCC) Use to check blood sugar at least four (4) times daily. 1 Each 0 12/02/2022 Active Start: 01-30-2022 End: 12-02-2022 Blood-Glucose Meter,Continuo us (DEXCOM G6 COTTON WEIGHER) misc Indications: Type 2 diabetes mellitus with other specified complication, with long-term current use of insulin (HCC) Use to check blood sugar at least four (4) times daily. 1 Each 01/30/2022 12/02/2022 Discontinued Start: 01-30-2022 End: 12-02-2022 Blood-Glucose Meter,Continuo us (DEXCOM G6 COTTON WEIGHER) misc Indications: Type 2 diabetes mellitus with other specified complication, with long-term current use of insulin (HCC) Use to check blood sugar at least four (4) times daily. 1 Each 0 01/30/2022 12/02/2022 Discontinued Start: 01-30-2022 Blood-Glucose Meter,Continuous (DEXCOM G6 COTTON WEIGHER) [facility] [place] Indications: Type 2 diabetes mellitus with other specified complication, with long-term current use of insulin (HCC) Use to check blood sugar at least four (4) times daily. 1 Each 0 01/30/2022 Active Comment on above: Use to check blood s ugar at least four (4) times daily. Blood-Glucose Sensor (DEXCOM G6 SENSOR) [place] (20 sources) Start: 05-19-2023 End: 06-16-2023 Blood-Glucose Sensor (DEXCOM G6 SENSOR) [place] Indications: Type 2 diabetes mellitus with hyperglycemia, with long-term current use of insulin (HCC) Apply new sensor every ten (10) days to abdomen. 9 Each 3 05/19/2023 06/16/2023 Discontinued Start: 03-31-2023 End: 06-16-2023 Blood-Glucose Sensor (DEXCOM G6 SENSOR) [place] Indications: Type 2 diabetes mellitus with other specified complication, with long-term current use of insulin (HCC) Apply new sensor every ten (10) days to abdomen. 9 Each 3 03/31/2023 06/16/2023 Discontinued Start: 03-31-2023 Blood-Glucose Sensor (DEXCOM G6 SENSOR) [place] Indications: Type 2 diabetes mellitus with other specified complication, with long-term current use of insulin (HCC) Apply new sensor every ten (10) days to abdomen. 9 Each 3 03/31/2023 Active Start: 01-30-2022 End: 03-30-2023 Blood-Glucose Sensor (DEXCOM G6 SENSOR) [place] Indications: Type 2 diabetes mellitus with other specified complication, with long-term current use of insulin (HCC) Apply new sensor every ten (10) days to abdomen. 9 Each 3 01/30/2022 03/30/2023 Discontinued Start: 01-30-2022 Blood-Glucose Sensor (DEXCOM G6 SENSOR) [place] Indications: Type 2 diabetes mellitus with other specified complication, with long-term current use of insulin (HCC) Apply new sensor every ten (10) days to abdomen. 9 Each 3 01/30/2022 Active Comment on above: Apply new sensor dangelo ry ten (10) days to abdomen. Blood-Glucose Transmitter (DEXCOM G6 TRANSMITTER) kim[place]ly (20 sources) Start: 05-19-2023 End: 06-16-2023 Blood-Glucose Transmitter (DEXCOM G6 TRANSMITTER) [place] Indications: Type 2 diabetes mellitus with hyperglycemia, with long-term current use of insulin (HCC) Apply new transmitter every 90 days. Clean transmitter with an alcohol swab with each sensor change. 1 Each 3 05/19/2023 06/16/2023 Discontinued Start: 03-31-2023 Blood-Glucose Transmitter (DEXCOM G6 TRANSMITTER) [place] Indications: Type 2 diabetes mellitus with other specified complication, with long-term current use of insulin (HCC) Apply new transmitter every 90 days. Clean transmitter with an alcohol swab with each sensor change. 1 Each 3 03/31/2023 Suspended Start: 03-31-2023 Blood-Glucose Transmitter (DEXCOM G6 TRANSMITTER) [place] Indications: Type 2 diabetes mellitus with other specified complication, with long-term current use of insulin (HCC) Apply new transmitter every 90 days. Clean transmitter with an alcohol swab with each sensor change. 1 Each 3 03/31/2023 Active Start: 12-02-2022 End: 03-30-2023 Blood-Glucose Transmitter (D EXCOM G6 TRANSMITTER) [place] Indications: Type 2 diabetes mellitus with other specified complication, with long-term current use of insulin (HCC) Apply new transmitter every 90 days. Clean transmitter with an alcohol swab with each sensor change. 1 Each 3 12/02/2022 03/30/2023 Discontinued Start: 12-02-2022 Blood-Glucose Transmitter (DEXCOM G6 TRANSMITTER) [place] Indications: Type 2 diabetes mellitus with other specified complication, with long-term current use of insulin (HCC) Apply new transmitter every 90 days. Clean transmitter with an alcohol swab with each sensor change. 1 Each 3 12/02/2022 Active Start: 01-30-2022 End: 12-02-2022 Blood-Glucose Transmitter (D EXCOM G6 TRANSMITTER) [place] Indications: Type 2 diabetes mellitus with other specified complication, with long-term current use of insulin (HCC) Apply new transmitter every 90 days. Clean transmitter with an alcohol swab with each sensor change. 1 Each 3 01/30/2022 12/02/2022 Discontinued Start: 01-30-2022 Blood-Glucose Transmitter (DEXCOM G6 TRANSMITTER) [place] Indications: Type 2 diabetes mellitus with other specified complication, with long-term current use of insulin (HCC) Apply new transmitter every 90 days. Clean transmitter with an alcohol swab with each sensor change. 1 Each 3 01/30/2022 Active Comment on above: Apply new transmitte r every 90 days. Clean transmitter with an alcohol swab with each sensor change. buprenorphine 0.075 mg buccal film (20 sources) Partial Opioid Agonist Start: 01-27-20 End: 11-12-19 BELBUCA 75 mcg buccal film Indications: Peripheral polyneuropathy Place 75 mcg between cheek and gum q 12 HR. 01/26/2022 11/11/2022 Discontinued (Course of therapy completed) Comment on above: Place 75 mcg between cheek and gum q 12 HR. 12 hr buPROPion hydrochloride 150 mg extended release oral tablet (20 sources) Aminoketone Start: 05-19-19 End: 02-18-20 take 1 tablet by mouth twice daily buPROPion SR (WELLBUTRIN SR) 150 mg 12 hr tablet Indications: Depression, unspecified depression type Take 1 tablet by mouth two times a day. 60 tablet 5 05/19/2023 02/18/2024 Discontinued Start: 03-18-2023 take 150 mg by mouth twice daily Bupropion Hcl Active 150 MG PO TWICE A DAY March 17, 2023 11:00pm Start: 01-26-2022 End: 11-19-2022 take 1 tablet by mouth twice daily buPROPion SR (ZYBAN SR; WELLBUTRIN SR) 150 mg 12 hr tablet Indications: Depression, unspecified depression type Take 1 tablet by mouth twice daily. 60 tablet 5 06/11/2022 11/19/2022 Discontinued Start: 01-26-2022 buPROPion SR ( ZYBAN SR; WELLBUTRIN SR) 150 mg 12 hr tablet Start: 01-16-2021 take 150 mg by mouth twice daily Bupropion Hcl Active 150 MG PO TWICE A DAY January 15, 2021 11:00pm Comment on above: Take 150 mg by mouth twice daily. Take 1 tablet by nora th twice daily. Take 1 tablet by nora th two times a day. cholecalciferol, vitD3,/vit K2 (VITAMIN D3-VITAMIN K2) 125-90 mcg cap (1 source) Start: 06-16-2023 End: 06-18-2023 cholecalciferol, vitD3,/vit K2 (VITAMIN D3-VITAMIN K2) 125-90 mcg cap Take 1 tablet daily with FOOD 90 capsule 3 06/16/2023 06/18/2023 Discontinued Comment on above: Take 1 tablet daily with FOOD ciprofloxacin 500 mg oral tablet (2 sources) Quinolone Antimicrobial Start: 09-14-2023 End: 09-14-2023 ciprofloxacin HCl (CIPRO) 500 mg tablet Indications: Diabetic ulcer of toe associated with diabetes mellitus due to underlying condition, with necrosis of muscle, unspecified laterality (HCC) Take 1 tablet by mouth two times a day for 7 days. FOR 7 DAYS. 14 tablet 0 09/14/2023 09/14/2023 Discontinued (Course of therapy completed) collagenase 0.25 unt/mg topical ointment (20 sources) Collagen-specific Enzyme Start: 06-14-2023 End: 02-18-2024 collagenase (SANTYL) ointment Apply to affected area once daily. APPLY TO AFFECTED AREA 30 g 2 06/14/2023 02/18/2024 Discontinued Start: 11-11-2022 End: 06-14-2023 collagenase (SANTYL) ointmen t Indications: Diabetic ulcer of ankle (HCC) Apply to affected area once daily. 90 g 1 11/11/2022 06/14/2023 Discontinued Comment on above: Apply to affected ar ea once daily. Apply to affected ar ea once daily. APPLY TO AFFECTED AREA diclofenac sodium 0.01 mg/mg topical gel (3 sources) Nonsteroidal Anti-inflammatory Drug End: 06-14-2023 diclofenac (VOLTAREN) 1 % topical gel Apply to affected area as needed. 06/14/2023 Discontinued Comment on above: Apply to affected ar ea as needed. doxycycline hyclate 100 mg oral capsule (20 sources) Tetracycline-class Drug Start: 06-07-2023 End: 06-12-2023 doxycycline hyclate (VIBRAMYCIN) 100 mg capsule Indications: Open wound of right great toe, subsequent encounter , Type 2 diabetes mellitus with hyperglycemia, with long-term current use of insulin (HCC) , Peripheral polyneuropathy Take 1 capsule by mouth two times a day for 5 days. Start taking this after completing your first 10 day prescription for total of 15 days of treatment. 10 capsule 06/07/2023 06/12/2023 Start: 06-06-2023 End: 09-13-2023 doxycycline (VIBRA-TABS) 100 mg tablet as needed. 0 06/06/2023 09/13/2023 Discontinued (Course of therapy completed) DULoxetine 60 mg delayed release oral capsule (20 sources) Serotonin and Norepinephrine Reuptake Inhibitor Start: 01-26-2022 End: 02-18-2024 take 1 capsule by mouth once daily DULoxetine (CYMBALTA) 60 mg capsule Indications: Depression, unspecified depression type , Peripheral polyneuropathy Take 1 capsule by mouth once daily. 30 capsule 5 11/19/2022 02/18/2024 Discontinued Start: 11-27-2020 take 60 mg by mouth at bedtime Duloxetine Active 60 MG PO AT BEDTIME November 26, 2020 11:00pm Comment on above: Take 60 mg by mouth once daily. Take 1 capsule by mo [facility] once daily. folic acid 1 mg oral tablet (11 sources) Start: 03-27-2024 End: 04-22-2024 take 1 tablet by mouth once daily folic acid 1 mg tablet Take 1 tablet by mouth once daily for 26 doses. 26 tablet 03/27/2024 04/22/2024 furosemide 40 mg oral tablet (16 sources) Loop Diuretic Start: 11-27-2020 End: 01-15-2021 take 40 mg by mouth twice daily Furosemide Discontinued 40 MG PO TWICE A DAY November 26, 2020 11:00pm January 15, 2021 11:36am Gauze Bandage (GAUZE ROLL) 2 X 2 -yard bndg (20 sources) Start: 11-11-2022 End: 05-25-2024 Gauze Bandage (GAUZE ROLL) 2 X 2 -yard bndg Indications: Diabetic ulcer of ankle (HCC) Apply 1 application to affected area once daily. 30 Each 2 11/11/2022 05/25/2024 Discontinued Start: 11-11-2022 Gauze Bandage (GAUZE ROLL) 2 X 2 -yard bndg Indications: Diabetic ulcer of ankle (HCC) Apply 1 application to affected area once daily. 30 Each 2 11/11/2022 Suspended Start: 11-11-2022 Gauze Bandage (GAUZE ROLL) 2 X 2 -yard bndg Indications: Diabetic ulcer of ankle (HCC) Apply 1 application to affected area once daily. 30 Each 2 11/11/2022 Active Comment on above: Apply 1 application to affected area once daily. Gauze Bandage 4 X 4 bndg (20 sources) Start: 11-11-2022 End: 05-25-2024 Gauze Bandage 4 X 4 bndg Indications: Diabetic ulcer of ankle (HCC) Apply 1 application to affected area once daily. 50 Each 2 11/11/2022 05/25/2024 Discontinued Start: 11-11-2022 Gauze Bandage 4 X 4 bndg Indications: Diabetic ulcer of ankle (HCC) Apply 1 application to affected area once daily. 50 Each 2 11/11/2022 Suspended Start: 11-11-2022 Gauze Bandage 4 X 4 bndg Indications: Diabetic ulcer of ankle (HCC) Apply 1 application to affected area once daily. 50 Each 2 11/11/2022 Active Comment on above: Apply 1 application to affected area once daily. hydrOXYzine hydrochloride 10 mg oral tablet (6 sources) Antihistamine End: 06-14-2023 hydrOXYzine HCl (ATARAX) 10 mg tablet Take 10 mg by mouth as needed for anxiety. 06/14/2023 Discontinued End: 06-14-2023 hydrOXYzine pamoate (VISTARI L) 25 mg capsule Take 25 mg by mouth as needed for anxiety. 06/14/2023 Discontinued Comment on above: Take 10 mg by mouth as needed for anxiety. Take 25 mg by mouth as needed for anxiety. Inhalational Spacing Device (1 source) Start: 08-12-19 End: 08-12-19 Inhalational Spacing Device 1 Device one time only for 1 dose. 1 Each 0 08/11/2022 08/11/2022 Comment on above: 1 Device one time on ly for 1 dose. 3 ml insulin degludec 100 unt/ml pen injector (20 sources) Insulin Analog Start: 02-06-20 End: 04-11-20 inject 42 [IU] by subcutaneous injection once daily at bedtime TRESIBA FLEXTOUCH U-100 100 unit/mL (3 mL) injection pen Indications: Type 2 diabetes mellitus with other specified complication, with long-term current use of insulin (HCC) Inject 42 Units subcutaneously daily at bedtime. 15 mL 11 02/06/2022 02/11/2022 Discontinued Start: 01-30-2022 End: 06-16-2023 inject 40 [IU] by subcutaneous injection once daily at bedtime TRESIBA FLEXTOUCH U-100 100 unit/mL (3 mL) injection pen Indications: Type 2 diabetes mellitus with other specified complication, with long-term current use of insulin (HCC) Inject 40 Units subcutaneously daily at bedtime. 15 mL 11 02/11/2022 06/16/2023 Discontinued Start: 01-26-2022 End: 01-30-2022 TRESIBA FLEXTOUCH U-100 100 unit/mL (3 mL) injection pen Start: 01-23-2021 Insulin Deglud ec (Tresiba Flextouch U-100) 100 unit/mL (3 mL) insulin pen Active 40 UNIT SC AT BEDTIME 0 January 23, 2021 1:13pm Start: 01-10-2021 End: 01-23-2021 Insulin Degludec (Tresiba Flextouch U-100) 100 unit/mL (3 mL) insulin pen Discontinued 20 UNIT SC AT BEDTIME January 09, 2021 11:00pm January 23, 2021 12:13pm Comment on above: Inject 40 Units subcutaneously daily at bedtime. Inject 42 Units subc utaneously daily at bedtime. 3 ml insulin lispro 100 unt/ml pen injector (20 sources) Insulin Analog Start: End: 023 inject 6 [IU] by subcutaneous injection three times daily before mealtime insulin lispro (HUMALOG KWIKPEN) 100 unit/mL Indications: Type 2 diabetes mellitus with other specified complication, with long-term current use of insulin (HCC) Inject 6 Units subcutaneously three times daily before meals. sliding scale 150=0, [id number], 201-250=4units, 251-300=6units, 301-350=8 units, 351-400=10units 15 mL 10 01/30/2022 02/04/2022 Discontinued (Not on Formulary) Start: 11-27-2020 Insulin Lispro Active 0 sliding scale dose SC THREE TIMES A DAY November 26, 2020 11:00pm Comment on above: Inject 6 Units subcu taneously three times daily before meals. sliding scale 150=0, [phone], 201-250=4units, 251-300=6units, 301-350=8 units, 351-400=10units ketoconazole 20 mg/ml medicated shampoo (20 sources) Azole Antifungal Start: 023 End: ketoconazole (NIZORAL) 2 % shampoo Apply to affected area two times a week. Apply to scalp; lather; rinse off after 5 minutes 120 mL 2 08/20/2022 06/14/2023 Discontinued Comment on above: Apply to affected ar ea two times a week. Apply to scalp; lather; rinse off after 5 minutes Lactobacillus acidophilus (16 sources) Start: 021 End: take 2 tablets by mouth once daily Lactobacillus Acidophilus (Acidophilus) Tablet,Chewable Discontinued 2 TABLET PO DAILY November 26, 2020 11:00pm October 23, 2021 10:02am Start: 11-27-2020 End: 10-23-2021 take 2 tablets by mouth once daily Lactobacillus Acidophilus (Acidophilus) Tablet,Chewable Discontinued 2 TABLET PO DAILY November 27, 2020 12:00am October 23, 2021 11:02am 24 hr metFORMIN hydrochloride 500 mg extended release oral tablet (20 sources) Biguanide Start: 11-10-2023 End: 11-23-2023 metFORMIN ER (GLUCOPHAGE XR) 500 mg 24 hr tablet Take 2 tabs with breakfast, 2 tabs with dinner 360 tablet 3 11/10/2023 11/23/2023 Discontinued Start: 05-19-2023 End: 11-10-2023 take 1 tablet by mouth twice daily at mealtime metFORMIN (GLUCOPHAGE) 1,000 mg tablet Indications: Type 2 diabetes mellitus with other specified complication, with long-term current use of insulin (HCC) Take 1 tablet by mouth two times a day with meals. 180 tablet 3 06/16/2023 11/10/2023 Discontinued Start: 01-26-2022 End: 11-19-2022 take 1 tablet by mouth twice daily at mealtime metFORMIN (GLUCOPHAGE) 1,000 mg tablet Indications: Type 2 diabetes mellitus with other specified complication, with long-term current use of insulin (HCC) Take 1 tablet by mouth twice daily with meals. 60 tablet 5 06/11/2022 11/19/2022 Discontinued Start: 01-16-2021 take 500 mg by mouth twice daily Metformin Active 500 MG PO TWICE A DAY January 15, 2021 11:00pm Start: 11-27-2020 End: 01-15-2021 take 1000 mg by mouth twice daily Metformin Discontinued 1000 MG PO TWICE A DAY November 26, 2020 11:00pm January 15, 2021 11:49am Comment on above: Take 1 tablet by nora th twice daily with meals. Take 1 tablet by nora th two times a day with meals. multivit,stress formula/zinc (STRESS WITH ZINC ORAL) (20 sources) End: 09-13-2023 multivit,stress formula/zinc (STRESS WITH ZINC ORAL) Take by mouth. 0 09/13/2023 Discontinued (Discontinued by Patient) multivit,stress formula/zinc (STRESS WITH ZINC ORAL) Take by mouth. 0 Active Comment on above: Take by mouth. mupirocin 0.02 mg/mg topical ointment (1 source) RNA Synthetase Inhibitor Antibacterial Start: 06-07-2023 End: 06-16-2023 mupirocin (BACTROBAN) 2 % ointment Indications: Open wound of right great toe, subsequent encounter , Type 2 diabetes mellitus with hyperglycemia, with long-term current use of insulin (HCC) , Peripheral polyneuropathy Apply 1 application to affected area once daily for 10 days. Apply to right great toe wound 15 g 1 06/07/2023 06/16/2023 Discontinued 24 hr nicotine 0.875 mg/hr transdermal system (20 sources) Cholinergic Nicotinic Agonist Start: 03-27-2024 End: 04-05-2024 nicotine (NICODERM) 21 mg/24 hr [The details of the medication are not available because there are pending changes by a home health clinician.] 14 Patch 03/27/2024 04/05/2024 Discontinued Start: 03-27-2024 apply 1 dose transde rmal route once daily nicotine (NICODERM) 21 mg/24 hr Apply 1 Patch as directed once daily. 14 Patch 03/27/2024 Active Start: 03-26-2024 End: 04-23-2024 nicotine (NICODERM CQ) 7 mg/ 24 hr Indications: nicotine dependence , smoking cessation [The details of the medication are not available because there are pending changes by a home health clinician.] 28 Patch 03/26/2024 04/05/2024 Discontinued Start: 03-26-2024 End: 04-23-2024 nicotine (NICODERM CQ) 7 mg/ 24 hr Indications: nicotine dependence , smoking cessation Apply 1 Patch as directed every 24 hours for 28 days. 28 Patch 03/26/2024 04/23/2024 Active Start: 03-26-2024 End: 04-09-2024 nicotine (NICODERM CQ) 14 mg /24 hr Indications: nicotine dependence , smoking cessation [The details of the medication are not available because there are pending changes by a home health clinician.] 14 Patch 03/26/2024 04/05/2024 Discontinued Start: 03-26-2024 End: 04-09-2024 apply 1 dose transdermal route every twenty-four hours nicotine (NICODERM CQ) 14 mg/24 hr Indications: nicotine dependence , smoking cessation Apply 1 Patch as directed every 24 hours for 14 days. Begin when 21 mg/day patches are completed 14 Patch 03/26/2024 04/09/2024 Active oxyCODONE hydrochloride 5 mg oral tablet (6 sources) Opioid Agonist Start: 03-26-2024 End: 03-31-2024 take 1 tablet by mouth every six hours as needed for pain oxyCODONE IR (ROXICODONE) 5 mg immediate release tablet Indications: Status post amputation of right great toe (HCC) Take 1 tablet by mouth every 6 hours as needed for pain for up to 5 days. 12 tablet 03/26/2024 03/31/2024 QUEtiapine 25 mg oral tablet (20 sources) Atypical Antipsychotic Start: 01-23-2021 End: 11-19-2022 take 1 tablet by mouth twice daily QUEtiapine (SEROQUEL) 25 mg tablet Indications: Depression, unspecified depression type Take 1 tablet by mouth twice daily. 60 tablet 5 06/11/2022 11/19/2022 Discontinued Start: 11-27-2020 End: 01-23-2021 take 50 mg by mouth twice daily Quetiapine Discontinued 50 MG PO TWICE A DAY November 26, 2020 11:00pm January 23, 2021 12:08pm Comment on above: Take 25 mg by mouth. Unknown frequency Take 1 tablet by nora twice daily. sertraline 100 mg oral tablet (20 sources) Serotonin Reuptake Inhibitor Start: End: take 1.5 tablets by mouth once daily sertraline (ZOLOFT) 100 mg tablet Take 1.5 tablets by mouth once daily. 135 tablet 3 06/23/2023 02/18/2024 Discontinued Start: 05-19-2023 End: 06-14-2023 take 1.5 tablets by mouth once daily sertraline (ZOLOFT) 100 mg tablet Indications: Depression, unspecified depression type Take 1.5 tablets by mouth once daily. 45 tablet 5 05/19/2023 06/14/2023 Discontinued Start: 03-18-2023 End: 06-23-2023 sertraline (ZOLOFT) 100 mg t ablet Take 150 mg by mouth once daily. 0 03/18/2023 06/23/2023 Discontinued Start: 03-18-2023 take 100 mg by mouth at bedtim e Sertraline Active 100 MG PO AT BEDTIME March 17, 2023 11:00pm Start: 10-23-2022 take 1.5 tablets by mouth once daily sertraline (ZOLOFT) 50 mg tablet Indications: Depression, unspecified depression type Take 1.5 tablets by mouth once daily. To equal 75 mg daily. 45 tablet 11 10/23/2022 Active Start: 10-22-2022 End: 05-19-2023 take 1 tablet by mouth once daily sertraline (ZOLOFT) 25 mg tablet Indications: Depression, unspecified depression type Take 1 tablet by mouth once daily. Take this in addition to 50 mg for a total of 75 mg per day 30 tablet 10/22/2022 05/19/2023 Discontinued Start: 10-22-2022 End: 10-23-2022 take 1 tablet by mouth once daily sertraline (ZOLOFT) 50 mg tablet Indications: Depression, unspecified depression type Take 1 tablet by mouth once daily. Take this in addition to 25 mg for a total of 75 mg per day 30 tablet 10/22/2022 10/23/2022 Discontinued Start: 11-27-2020 take 75 mg by mouth once daily Sertraline Active 75 MG PO DAILY November 26, 2020 11:00pm Start: 11-27-2020 End: 06-11-2022 take 50 mg by mouth once daily Sertraline Active 50 MG PO DAILY November 27, 2020 12:00am Comment on above: Take 50 mg by mouth once daily. Take 1 tablet by nora th once daily. Take 1 tablet by nora th once daily. Take this in addition to 50 mg for a total of 75 mg per day Take 1.5 tablets by mouth once daily. To equal 75 mg daily. Take 150 mg by mouth once daily. Take 1.5 tablets by mouth once daily. traMADol hydrochloride 50 mg oral tablet (16 sources) Opioid Agonist Start: 01-11-20 End: 01-16-20 take 50 mg by mouth twice daily Tramadol Discontinued 50 MG PO TWICE A DAY January 09, 2021 11:00pm January 15, 2021 11:37am triamcinolone acetonide 1 mg/ml topical cream (20 sources) Corticosteroid Start: 05-27-19 23 End: 03-26-20 24 triamcinolone acetonide (KENALOG) 0.1 % cream Apply 1 application to affected area twice daily. Apply sparingly to area for rash/itching. Once rash on hands improves, go to treating 2 day per week 453.6 g 1 05/27/2022 03/26/2024 Discontinued Comment on above: Apply 1 application to affected area twice daily. Apply sparingly to area for rash/itching. Once rash on hands improves, go to treating 2 day per week Problems Active Problems Problem Classification Problem Date Documented Date Episodic/Chronic Abdominal pain (20 sources) Right upper quadrant pain; Translations: [Right upper quadrant pain] 01-23-2021 Episodic Acute and unspecified renal failure (16 sources) Injury of kidney; Translations: [Acute kidney failure, unspecified] 01-23-2021 Episodic Administrative/social admission (2 sources) Reduced mobility; Translations: [Other reduced mobility] Episodic Allergic reactions (20 sources) Atopic dermatitis; Translations: [Atopic dermatitis, unspecified] Onset: 01-30-2022 01-30-2022 Chronic Allergic reactions (2 sources) Eczema; Translations: [Dermatitis, unspecified] Episodic Anxiety disorders (20 sources) Anxiety; Translations: [Anxiety disorder, unspecified] Onset: 03-24-2024 03-26-2024 Chronic Biliary tract disease (16 sources) Biliary sludge; Translations: [Other specified diseases of gallbladder] 01-23-2021 Episodic Chronic ulcer of skin (20 sources) Pressure ulcer of buttock stage 3; Translations: [Pressure ulcer of left buttock, stage 3] Onset: 06-14-2023 12-03-2022 Chronic Coma; stupor; and brain damage (2 sources) Daytime somnolence; Translations: [Somnolence] Episodic Conditions associated with dizziness or vertigo (19 sources) Vertigo; Translations: [Dizziness and giddiness] Onset: 03-22-2024 Episodic Deficiency and other anemia (1 source) Anemia; Translations: [Anemia, unspecified] 02-18-2024 Episodic Diabetes mellitus with complications (20 sources) Type II diabetes mellitus uncontrolled; Translations: [Uncontrolled type 2 diabetes mellitus] Onset: 01-30-2022 Chronic Diabetes mellitus with complications (2 sources) Type 1 diabetes mellitus with diabetic polyneuropathy; Translations: [TYPE 1 DM W/DIABETIC POLYNEUROPATHY] Onset: 06-01-2018 Diabetes mellitus without complication (20 sources) Type 2 diabetes mellitus; Translations: [Type 2 diabetes mellitus without complications] Onset: 01-30-2022 Chronic Disorders of lipid metabolism (20 sources) Hyperlipidemia; Translations: [Hyperlipidemia, unspecified] Onset: 03-23-2024 Chronic Disorders of teeth and jaw (1 source) Tooth disorder; Translations: [Disorder of teeth and supporting structures, unspecified] 03-22-2023 Episodic Esophageal disorders (20 sources) Gastroesophageal reflux disease without esophagitis; Translations: [Gastro-esophageal reflux disease without esophagitis] 09-14-2023 Chronic Essential hypertension (20 sources) Essential hypertension; Translations: [Essential (primary) hypertension] Onset: 01-30-2022 Chronic Fluid and electrolyte disorders (20 sources) Metabolic acidosis; Translations: [Acidosis] Episodic Genitourinary symptoms and ill-defined conditions (2 sources) Urge incontinence of urine; Translations: [Urge incontinence] Onset: 02-18-2024 02-18-2024 Chronic Genitourinary symptoms and ill-defined conditions (20 sources) Acute retention of urine ; Translations: [Other retention of urine] Episodic Hyperplasia of prostate (20 sources) Benign prostatic hyperplasia; Translations: [Benign prostatic hyperplasia with lower urinary tract symptoms] 09-14-2023 Chronic Infective arthritis and osteomyelitis (except that caused by tuberculosis or sexually transmitted disease) (20 sources) Acute osteomyelitis of right foot; Translations: [Other acute osteomyelitis, right ankle and foot] Onset: 09-14-2023 Resolved: 03-26-2024 08-19-2023 Chronic Mood disorders (20 sources) Depressive disorder; Translations: [Depression, unspecified depression type] Onset: 01-30-2022 Chronic Mood disorders (1 source) Mood disorders; Translations: [Depression, unspecified depression type] Onset: 05-25-2024 Open wounds of extremities (1 source) Open wound of right great toe; Translations: [Unspecified open wound of right great toe without damage to nail, subsequent encounter] 06-07-2023 Episodic Other aftercare (6 sources) jail (current) use of insulin; Translations: [Type 2 diabetes mellitus with hyperglycemia, with long-term current use of insulin (HCC)] Onset: 01-30-2022 Episodic Other bone disease and musculoskeletal deformities (20 sources) History of amputation of right great toe; Translations: [Acquired absence of right great toe] Onset: 03-26-2024 03-26-2024 Chronic Other bone disease and musculoskeletal deformities (1 source) Acquired absence of right great toe; Translations: [Status post amputation of right great toe (HCC)] Onset: 03-26-2024 Chronic Other congenital anomalies (1 source) Disorder of nail; 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] 10-23-2022 Chronic Other connective tissue disease (1 source) Pain in right foot; Translations: [Pain in right foot] 08-19-2023 Episodic Other connective tissue disease (4 sources) Pain in both feet; Translations: [Pain in right foot] 10-13-2024 Episodic Other connective tissue disease (1 source) Spasm; Translations: [Cramp and spasm] 11-13-2024 Episodic Other connective tissue disease (1 source) Cramp and spasm; Translations: [Foot spasms] Onset: 11-13-2024 Episodic Other connective tissue disease (1 source) Pain in right foot; Translations: [Pain in both feet] Onset: 11-13-2024 Episodic Other connective tissue disease (1 source) Pain in left foot; Translations: [Pain in both feet] Onset: 11-13-2024 Episodic Other endocrine disorders (16 sources) Hypoglycemia; Translations: [Hypoglycemia, unspecified] 01-23-2021 Chronic Other inflammatory condition of skin (1 source) Seborrheic dermatitis; Translations: [Seborrheic dermatitis, unspecified] Episodic Other injuries and conditions due to external causes (1 source) Encounter for examination and observation following other accident; Translations: [Encounter for examination and observation following other accident] Onset: 01-18-2024 Episodic Other injuries and conditions due to external causes (1 source) Other injury of unspecified body region, initial encounter; Translations: [Wound infection] Onset: 03-22-2024 Episodic Other lower respiratory disease (2 sources) Snoring; Translations: [Snoring] Episodic Other nervous system disorders (20 sources) Neuropathy; Translations: [Polyneuropathy, unspecified] Onset: 05-03-2018 01-30-2022 Chronic Other nervous system disorders (16 sources) Disorder of brain; Translations: [Encephalopathy, unspecified] 01-31-2021 Chronic Other nervous system disorders (17 sources) Polyneuropathy; Translations: [Polyneuropathy, unspecified] Chronic Other nervous system disorders (2 sources) Phantom limb syndrome with pain; Translations: [Phantom limb syndrome with pain] 11-13-2024 Chronic Other nervous system disorders (1 source) Phantom limb syndrome with pain; Translations: [Phantom limb syndrome with pain (HCC)] Onset: 11-13-2024 Chronic Other nervous system disorders (2 sources) Polyneuropathy, unspecified; Translations: [Peripheral polyneuropathy] Onset: 01-30-2022 Chronic Other nervous system disorders (1 source) Impaired cognition; Translations: [Other symptoms and signs involving cognitive functions and awareness] Episodic Other non-traumatic joint disorders (1 source) Pain in unspecified joint; Translations: [PAIN IN UNSPECIFIED JOINT] Onset: 06-01-2018 Episodic Other non-traumatic joint disorders (1 source) Greater trochanteric pain syndrome of right lower limb; Translations: [Pain in right hip] 11-23-2023 Episodic Other nutritional; endocrine; and metabolic disorders (1 source) Severe obesity; Translations: [Morbid (severe) obesity due to excess calories] 09-14-2023 Chronic Other nutritional; endocrine; and metabolic disorders (20 sources) Obese class I; Translations: [Obesity, Class I, BMI 30-34.9] Onset: 03-22-2024 03-23-2024 Chronic Other nutritional; endocrine; and metabolic disorders (3 sources) H/O: diabetes mellitus; Translations: [Personal history of other endocrine, nutritional and metabolic disease] 03-17-2023 Episodic Other skin disorders (1 source) Loss of hair; Translations: [Nonscarring hair loss, unspecified] Episodic Other skin disorders (1 source) Eruption; Translations: [Rash and other nonspecific skin eruption] 10-23-2022 Episodic Other skin disorders (1 source) Xeroderma; Translations: [Xerosis cutis] 09-04-2024 Episodic Residual codes; unclassified (20 sources) Tobacco use; Translations: [Tobacco use disorder] Episodic Rheumatoid arthritis and related disease (20 sources) Rheumatoid arthritis; Translations: [Rheumatoid arthritis, unspecified] Onset: 10-22-2022 Chronic Screening and history of mental health and substance abuse codes (3 sources) H/O: manic depressive disorder; Translations: [Personal history of other mental and behavioral disorders] 03-17-2023 Episodic Skin and subcutaneous tissue infections (1 source) Local infection of the skin and subcutaneous tissue, unspecified; Translations: [Wound infection] Onset: 03-22-2024 Episodic Substance-related disorders (20 sources) Nicotine dependence; Translations: [Nicotine dependence, unspecified, uncomplicated] Onset: 03-22-2024 03-23-2024 Chronic Unclassified (1 source) Unknown / UNK(Unknown) Onset: 05-03-2018 Past or Other Problems Problem Classification Problem Date Documented Date Episodic/Chronic Deficiency and other anemia (20 sources) Iron deficiency anemia; Translations: [Other iron deficiency anemias] Onset: 03-23-2024 09-14-2023 Episodic Deficiency and other anemia (2 sources) Anemia, unspecified; Translations: [Anemia, unspecified type] Onset: 02-18-2024 Episodic Deficiency and other anemia (1 source) Iron deficiency anemia, unspecified; Translations: [Iron deficiency anemia, unspecified iron deficiency anemia type] Onset: 03-23-2024 Episodic Fracture of lower limb (7 sources) Closed fracture proximal phalanx, toe ; Translations: [Displaced fracture of proximal phalanx of left lesser toe(s), initial encounter for closed fracture] Onset: 02-18-2024 Episodic Fracture of lower limb (4 sources) Closed fracture of metatarsal bone of right foot; Translations: [Fracture of unspecified metatarsal bone(s), right foot, subsequent encounter for fracture with routine healing] Onset: 02-18-2024 12-16-2023 Episodic Immunizations and screening for infectious disease (17 sources) Patient encounter status; Translations: [Encounter for immunization] Onset: 05-25-2024 Episodic Nausea and vomiting (20 sources) Nausea and vomiting; Translations: [Nausea with vomiting, unspecified] Onset: 03-23-2023 Resolved: 03-22-2024 Episodic Nutritional deficiencies (20 sources) Vitamin B6 deficiency (non anemic); Translations: [Pyridoxine deficiency] Onset: 04-01-2024 04-01-2024 Episodic Other connective tissue disease (20 sources) H/O: rheumatoid arthritis; Translations: [Personal history of other diseases of the musculoskeletal system and connective tissue] Onset: 01-30-2022 Resolved: 09-14-2023 Episodic Other nutritional; endocrine; and metabolic disorders (20 sources) Body mass index 40+ - severely obese; Translations: [Body mass index (BMI) 40.0-44.9, adult] Onset: 06-14-2023 Resolved: 06-15-2023 06-15-2023 Chronic Other nutritional; endocrine; and metabolic disorders (20 sources) Obesity; Translations: [Obesity, unspecified] Resolved: 03-23-2024 09-14-2023 Chronic Other screening for suspected conditions (not mental disorders or infectious disease) (4 sources) Encounter for screening for other metabolic disorders; Translations: [Encounter for screening for eye and ear disorders] Onset: 03-22-2023 Episodic Residual codes; unclassified (20 sources) Tobacco use and exposure - finding; Translations: [Tobacco use] Resolved: 03-23-2024 12-11-2021 Episodic Residual codes; unclassified (1 source) Other general symptoms and signs; Translations: [Other general symptoms and signs] Onset: 03-22-2023 Episodic Results Test Name Value Interpretation Reference Range Facility [facility] 11-13-2024 CNOV Office Visit (PNMDNA ) -- BERTA JARAMILLO ([id number]) 1965 M Date Time Provider Department 11/13/24 1:30 PM HIEU MUNOZ During your visit today, we recorded the following information about you: Hieu Munoz MD 11/13/2024 2:12 PM Signed [facility] Pain Management Department Date: November 13, 2024 - 1:30 PM Berta Jaramillo is seen in consultation requested by Mike Candelario for an opinion regarding bilateral leg pain. My final recommendations will be communicated back to the requesting physician by way of shared medical record or via US mail. Mushtaq Chief Complaint: neuropathy pain SUBJECTIVE: Berta Jaramillo is a 59-year-old male with a history of diabetes mellitus, presenting for evaluation of worsening bilateral leg pain. Berta reports experiencing worsening bilateral leg pain, described as a burning, pining sensation that he attributes to nerve pain. The pain is severe and has been progressively worsening since he was [age] years old. He also reports phantom pain in the area of a recently amputated toe, describing it as tearing me up. 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 He reports significant neuropathy, stating, I can hardly feel my feet. He lost a toe earlier this year due to complications from diabetes and is followed by the wound center, though he notes it has been a while since his last visit. Berta is currently taking Lyrica 225 mg, which he reports provides some relief. He previously tried gabapentin in his 20s at a high dose without benefit, leading to the switch to Lyrica, which he has been taking for many years. Berta reports difficulty sleeping due to the pain, particularly at night when he elevates his feet and removes his socks. He describes a sensation of his bones feeling tight and round, which he associates with increased pain. He does not endorse any other symptoms. The pain is described as tayler, burning, numbness, tingling, and shooting. The pain intensity is rated 5. The pain is exacerbated by prolonged sitting and relieved by unknown and no known factors. Symptoms interfere with physical activity and sleeping. 100% pain in spine vs 0% (radiating) pain in the extremity. Litigation: No. Worker's Compensation: No. Prior pain treatment has included: Medication(s): Pregabalin, Tylenol Physical therapy: For his legs. This was completed about 2 years ago. Injection(s): Multiple injection with Dr. Rosa in [place] with no relief. Patient Entered Questionnaires PROMIS Score Percentiles Percentiles provide an indication of how the patient's score ranks in relation to the general population. Higher percentile rankings indicate better function/quality of life. 50th percentile is the average of the general population and indicates half of respondents had a worse score. > 31st percentile is within normal limits or better * < 31st percentile is at least ? SD worse than population, which may be clinically relevant < 16th percentile is at least 1 SD worse than population and warrants attention ALLERGIES No Known Allergies Current Medications: Pain medications reviewed and reconciled in the medication list: Yes. Current Outpatient Medications Medication Sig baclofen 10 mg tablet Take 1 tablet by mouth once daily. ferrous sulfate 325 mg (65 mg iron) tablet Take 1 tablet by mouth once daily. polyethylene glycol 3350 17 gram/dose powder Drink a mix of 1 scoop in 8oz of water/beverage once daily as needed for constipation. Compression Socks, Large misc Knee-high compression socks with toes, Jobst Sensi socks 8 to 15 mmHg or similar covered by his insurance. Disp 3 pair, 3 refills pregabalin (LYRICA) 225 mg capsule Take 1 capsule by mouth three times a day for 180 days. insulin glargine (BASAGLAR KWIKPEN U-100 INSULIN) 100 unit/mL (3 mL) Inject 10 Units subcutaneously daily at bedtime. Will adjust insulin orders as needed and send new RX when dose adjusted amitriptyline (ELAVIL) 50 mg tablet Take 1 tablet by mouth daily at bedtime. pyridoxine, vitamin B6, (VITAMIN B-6) 50 mg tablet Take 1 tablet by mouth once daily. dextrose 40 % gel Take 15 g by mouth as needed. (Patient taking differently: Take 15 g by mouth as needed (Hypogylcemia (below 30)).) zinc sulfate 220 mg (50 mg zinc) capsule Take 1 capsule by mouth once daily for 7 doses. acetaminophen (TYLENOL) 500 mg tablet Take 2 tablets by mouth every 8 hours as needed for pain. sertraline (ZOLOFT) 100 mg tablet Take 100 mg by mouth daily at bedtime. atorvastatin (LIPITOR) 80 mg tablet Take 1 tablet by mouth once daily. lisinopril (ZESTRIL) 10 mg tablet Take 1 tablet by mouth once daily. metoprolol tartrate, short acting, (LOPRESSOR) 25 mg tablet Take 1 tablet by mouth two times a day. pantopraz (more content not included)... Normal [facility] CBC W Auto Differential pane l (Bld)on 10-13-2024 Basophils (Bld) [#/Vol] 0.06 10*3/uL Normal <0.11 [facility] Comment on above: Order Comment: Speci men Type: BLOOD SPECIMENOrdering Facility: [facility] Address: [address] [place] [address] Performed By: #### 5 7021-8 ####[facility] LABCLIA [id number] [place] [address] [place] Basophils/100 WBC (Bld) 1.1 % Normal [facility] Comment on above: Order Comment: Speci men Type: BLOOD SPECIMENOrdering Facility: [facility] Address: [address] [place] [address] Performed By: #### 5 7021-8 ####[facility] LABCLIA [id number] [place] [address] [place] Differential cell count method Nom (Bld) Auto Normal [facility] Comment on above: Order Comment: Speci men Type: BLOOD SPECIMENOrdering Facility: [facility] Address: [address] [place] [address] Performed By: #### 5 7021-8 ####[facility] LABIA [id number] [place] [address] [place] Eosinophils (Bld) [#/Vol] 0.16 10*3/uL Normal <0.46 [facility] Comment on above: Order Comment: Speci men Type: BLOOD SPECIMENOrdering Facility: [facility] Address: [address] [place] [address] Performed By: #### 5 7021-8 ####[facility] LABCLIA [id number] [address], [place] [address] [place] Eosinophils/100 WBC (Bld) 2.9 % Normal [facility] Comment on above: Order Comment: Speci men Type: BLOOD SPECIMENOrdering Facility: [facility] Address: [address] [place] [address] Performed By: #### 5 7021-8 ####[facility] LABCLIA [id number] [address], [place] [address] [place] Erythrocyte distribution width (RBC) [Ratio] 16.4 % High 11.5-15.0 [facility] Comment on above: Order Comment: Speci men Type: BLOOD SPECIMENOrdering Facility: [facility] Address: [address] [place] [address] Performed By: #### 5 7021-8 ####[facility] LABCLIA [id number] [address], [place] [address] [place] Hematocrit (Bld) [Volume fraction] 24.7 % Low 39.0-51.0 [facility] Comment on above: Order Comment: Speci men Type: BLOOD SPECIMENOrdering Facility: [facility] Address: [address] [place] [address] Performed By: #### 5 7021-8 ####[facility] LABCLIA [id number] [address], [facility] [place] Hemoglobin (Bld) [Mass/Vol] 8.5 g/dL Low 13.0-17.0 [facility] Comment on above: Order Comment: Speci men Type: BLOOD SPECIMENOrdering Facility: [facility] Address: [address] [place] [address] Performed By: #### 5 7021-8 ####[facility] LABCLIA [id number] [address], [facility] [place] Immature granulocytes (Bld) [#/Vol] 10*3/uL Normal <0.10 [facility] Comment on above: Order Comment: Speci men Type: BLOOD SPECIMENOrdering Facility: [facility] Address: [address] [place] [address] Performed By: #### 5 7021-8 ####[facility] LABCLIA [id number] [place] [address] [place] Immature granulocytes/100 WBC (Bld) 0.2 % Normal [facility] Comment on above: Order Comment: Speci men Type: BLOOD SPECIMENOrdering Facility: [facility] Address: [address] [place] [address] Performed By: #### 5 7021-8 ####[facility] LABCLIA [id number] [place] [address] [place] Lymphocytes (Bld) [#/Vol] 2.07 10*3/uL Normal 1.00-4.00 [facility] Comment on above: Order Comment: Speci men Type: BLOOD SPECIMENOrdering Facility: [facility] Address: [address] [place] [address] Performed By: #### 5 7021-8 ####[facility] LABCLIA [id number] [place] [address] [place] Lymphocytes/100 WBC (Bld) 37.2 % Normal [facility] Comment on above: Order Comment: Speci men Type: BLOOD SPECIMENOrdering Facility: [facility] Address: [address] [place] [address] Performed By: #### 5 7021-8 ####[facility] LABCLIA [id number] [place] [address] [place] MCH (RBC) [Entitic mass] 26.6 pg Normal 26.0-34.0 [facility] Comment on above: Order Comment: Speci men Type: BLOOD SPECIMENOrdering Facility: [facility] Address: [address] [place] [address] Performed By: #### 5 7021-8 ####[facility] LABCLIA [id number] [place] [address] [place] MCHC (RBC) [Mass/Vol] 34.4 g/dL Normal 30.5-36.0 [facility] Comment on above: Order Comment: Speci men Type: BLOOD SPECIMENOrdering Facility: [facility] Address: [address] [place] [address] Performed By: #### 5 7021-8 ####[facility] LABIA [id number] [place] [address] [place] MCV (RBC) [Entitic vol] 77.4 fL Low 80.0-100.0 [facility] Comment on above: Order Comment: Speci men Type: BLOOD SPECIMENOrdering Facility: [facility] Address: [address] [place] [address] Performed By: #### 5 7021-8 ####[facility] LABIA [id number] [place] [address] [place] Monocytes (Bld) [#/Vol] 0.39 10*3/uL Normal <0.87 [facility] Comment on above: Order Comment: Speci men Type: BLOOD SPECIMENOrdering Facility: [facility] Address: [address] [place] [address] Performed By: #### 5 7021-8 ####[facility] LABCLIA [id number] [place] [address] [place] Monocytes/100 WBC (Bld) 7.0 % Normal [facility] Comment on above: Order Comment: Speci men Type: BLOOD SPECIMENOrdering Facility: [facility] Address: [address] [place] [address] Performed By: #### 5 7021-8 ####[facility] LABCLIA [id number] [place] [address] [place] Neutrophils (Bld) [#/Vol] 2.88 10*3/uL Normal 1.45-7.50 [facility] Comment on above: Order Comment: Speci men Type: BLOOD SPECIMENOrdering Facility: [facility] Address: [address] [place] [address] Performed By: #### 5 7021-8 ####[facility] LABCLIA [id number] [facility] [place] [address] [place] Neutrophils/100 WBC (Bld) 51.6 % Normal [facility] Comment on above: Order Comment: Speci men Type: BLOOD SPECIMENOrdering Facility: [facility] Address: [address] [place] [address] Performed By: #### 5 7021-8 ####[facility] LABCLIA [id number] [place] [address] [place] Nucleated RBC (Bld) [#/Vol] 10*3/uL Normal <0.01 [facility] Comment on above: Order Comment: Speci men Type: BLOOD SPECIMENOrdering Facility: [facility] Address: [address] [place] [address] Performed By: #### 5 7021-8 ####[facility] LABCLIA [id number] [facility] [address] [place] Nucleated RBC/100 WBC (Bld) [Ratio] 0.0 /100 WBC Normal [facility] Comment on above: Order Comment: Speci men Type: BLOOD SPECIMENOrdering Facility: [facility] Address: [address] [place] [address] Performed By: #### 5 7021-8 ####[facility] LABCLIA [id number] [facility] [place] [id number] [place] Platelet mean volume (Bld) [Entitic vol] 11.4 fL Normal 9.0-12.7 [facility] Comment on above: Order Comment: Speci men Type: BLOOD SPECIMENOrdering Facility: [facility] Address: [address] [place] [address] Performed By: #### 5 7021-8 ####[facility] LABIA [id number] [place] [address] [place] Platelets (Bld) [#/Vol] 222 10*3/uL Normal 150-400 [facility] Comment on above: Order Comment: Speci men Type: BLOOD SPECIMENOrdering Facility: [facility] Address: [address] [place] [address] Performed By: #### 5 7021-8 ####[facility] [id number] [place] [address] [place] RBC (Bld) [#/Vol] 3.19 10*6/uL Low 4.20-6.00 [facility] Comment on above: Order Comment: Speci men Type: BLOOD SPECIMENOrdering Facility: [facility] Address: [address] [place] [address] Performed By: #### 5 7021-8 ####[facility] [id number] [place] [address] [place] WBC (Bld) [#/Vol] 5.57 10*3/uL Normal 3.70-11.00 [facility] Comment on above: Order Comment: Speci men Type: BLOOD SPECIMENOrdering Facility: [facility] Address: [address] [place] [address] Performed By: #### 5 7021-8 ####[facility] LABIA [id number] [place] [address] [place] CNCOon 10-13-2024 CNCO Letter Text Normal [facility] CNOVon 10-13-2024 CNOV Office Visit (INTMWS ) -- BERTA JARAMILLO ([id number]) 1965 M Date Time Provider Department 10/13/24 1:40 PM MIKE CANDELARIO IN[place] During your visit today, we recorded the following information about you: Pulse Respiration Blood pressure Weight 87/minute 16/minute 101/61 99.2 kg Mike Candelario APRN.UNATTENDED GROUND SENSOR SPECIALIST 10/13/2024 1:30 PM Addendum SUBJECTIVE: Dilated Retinal Exam Never done DTaP,Tdap,Td Vaccine(1 - Tdap) Never done Shingrix Vaccine(1 of 2) Never done Colorectal Cancer Screening Never done Lung Cancer Screening Never done Hepatitis B Vaccine(2 of 3 - 19+ 3-dose series) due on 02/27/2022 Diabetic Foot Exam due on 11/12/2023 Urine Albumin:Creatinine Ratio due on 05/19/2024 HbA1C due on 09/19/2024 HPI Berta Jaramillo is a 59 year old male. PMH significant for ACTIVE PROBLEM LIST Neuropathy Essential Hypertension Type 2 Diabetes Mellitus, With Long-Term Current Use of Insulin (Hcc) Depression, Recurrent Atopic Eczema Rheumatoid Arthritis, Involving Unspecified Site, Unspecified Whether Rheumatoid Factor Present (Hcc) Decubitus Ulcer of Left Buttock, Stage 3 (Hcc) Gastroesophageal Reflux Disease Without Esophagitis Hypercholesterolemia Benign Prostatic Hyperplasia With Urinary Hesitancy Nicotine use disorder, F17.2 Obesity, Class I, Bmi 30-34.9 Iron Deficiency Anemia Anxiety Status Post Amputation of Right Great Toe (Hcc) Vitamin B6 Deficiency (Non Anemic) Dizziness: - Describes dizziness as a sensation of pressure in the head, similar to being on a roller coaster, with ears feeling like they want to pop. - Symptoms occur primarily with positional changes, such as standing up from a seated or lying position. - Symptoms are severe enough to prompt Berta to sit back down immediately. - Spends most of the day sitting with legs down; elevates feet slightly in a chair and more in bed. - Wears compression socks at night but not during the day. - Consumes four cups of coffee daily, with minimal water intake. - Eats one meal per day, usually in the evening, with no snacks during the day. Anemia: - History of anemia; was scheduled for blood transfusions in March and May but missed the May appointment. - Uncertain about how to reschedule the missed appointment. Foot Pain: - Reports pain in the foot without a toe, describing it as feeling like it has a toe on it. - Currently taking Lyrica for pain management. - Previously discontinued pain medication abruptly, leading to significant discomfort. - Expresses interest in seeing a film painter for foot pain, specifically requesting non-strong medication to take off some of the edge. - Has had previous back injections for neuropathy, which were not effective. ROS Constitutional: (+) decreased appetite Head: (+) head pressure Ears/Nose/Mouth/Throat: (+) ear pressure Musculoskeletal: (+) foot pain, (+) cold sensation in foot Neurological: (+) dizziness Patient's last HgA1C was Hemoglobin A1C (%) Date Value 03/22/2024 7.1 09/13/2023 6.7 Hemoglobin A1C (POCT) (%) Date Value 11/10/2023 6.9 ) Hyperlipidemia. Mr. Jaramillo reports doing well on current therapy . His most recent lipid panels are: Cholesterol, Total (mg/dL) Date Value 01/30/2022 72 Total Cholesterol, Nonfasting (mg/dL) Date Value 05/25/2024 72 HDL Cholesterol (mg/dL) Date Value 01/30/2022 26 HDL Cholesterol, Nonfasting (mg/dL) Date Value 05/25/2024 28 LDL Cholesterol, Calculated (mg/dL) Date Value 01/30/2022 20 LDL Cholesterol Calculated, Nonfasting (mg/dL) Date Value 05/25/2024 21 Triglyceride (mg/dL) Date Value 01/30/2022 129 Triglycerides, Nonfasting (mg/dL) Date Value 05/25/2024 114 HTN: Without report of headache, chest pain, palpitations, dyspnea, peripheral edema, orthopnea, fatigue, and PND. Last 14 Encounter BP Readings: Date: BP: 05/25/2024 111/68 04/14/2024 122/70 04/10/2024 118/70 03/30/2024 120/80 03/29/2024 112/64 03/28/2024 104/58 03/24/2024 121/77 03/24/2024 111/70 03/22/2024 114/63 02/18/2024 107/64 11/23/2023 94/56[Using BP Monitor[ 09/13/2023 122/68 06/16/2023 146/72 06/07/2023 101/60 GERD: no current complaints EGD 03/24/2024 Dr. Kumar Impression: - Normal duodenal bulb, first portion of the duodenum and second portion of the duodenum. Biopsied. 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 Treated with argon plasma coagulation (APC). - Benign-appearing esophageal stenosis. Dilated. Recommendation: - Await pathology results. - NPO for scheduled surgery. - Continue present medications. - Perform a colonoscopy at appointment to be scheduled. Review of Systems Constitutional: Negative. Musculoskeletal: Positive for arthralgias, back pain and gait problem. Neurological: Positive for numbness. Objective BP (more content not included)... Normal [facility] Comprehensive metabolic 2000 panelon 10-13-2024 Albumin [Mass/Vol] 3.6 g/dL Low 3.9-4.9 [facility] Comment on above: Order Comment: Speci men Type: BLOOD SPECIMENOrdering Facility: [facility] Address: [address] [place] [address] Performed By: #### L IPNF, 85513-8 ####[facility] LABCLIA [id number] [place] [address] [place] ALP [Catalytic activity/Vol] 121 U/L High 38-113 [facility] Comment on above: Order Comment: Speci men Type: BLOOD SPECIMENOrdering Facility: [facility] Address: [address] [place] [address] Performed By: #### L IPNF, 25553-7 ####[facility] LABCLIA [id number] [place] [address] [place] ALT [Catalytic activity/Vol] 59 U/L High 10-54 [facility] Comment on above: Order Comment: Speci men Type: BLOOD SPECIMENOrdering Facility: [facility] Address: [address] [place] [id number] Performed By: #### L IPNF, ####[facility] LABCLIA [id number] [place] [id number] [place] Anion gap [Moles/Vol] 10 mmol/L Normal 8-15 [facility] Comment on above: Order Comment: Speci men Type: BLOOD SPECIMENOrdering Facility: [facility] Address: [address] [place], [place] [id number] Performed By: #### L IPNF, ####[facility] LABCLIA [id number] [place] [id number] [place] AST [Catalytic activity/Vol] 98 U/L High 14-40 [facility] Comment on above: Order Comment: Speci men Type: BLOOD SPECIMENOrdering Facility: [facility] Address: [address] [place] [address] Performed By: #### L IPNF, ####[facility] LABCLIA [id number] [place] [id number] [place] Bilirubin [Mass/Vol] mg/dL Low 0.2-1.3 [facility] Comment on above: Order Comment: Speci men Type: BLOOD SPECIMENOrdering Facility: [facility] Address: [address] [place], [place] [id number] Performed By: #### L IPNF, ####[facility] LABCLIA [id number] [place] [id number] [place] Calcium [Mass/Vol] 8.3 mg/dL Low 8.5-10.2 [facility] Comment on above: Order Comment: Speci men Type: BLOOD SPECIMENOrdering Facility: [facility] Address: [address] [place], [place] [id number] Performed By: #### L IPNF, ####[facility] LABCLIA [id number] [address] [address] [place] Chloride [Moles/Vol] 109 mmol/L High 98-107 [facility] Comment on above: Order Comment: Speci men Type: BLOOD SPECIMENOrdering Facility: [facility] Address: [address] [place] [address] Performed By: #### L IPNF, 32621-1 ####[facility] LABCLIA [id number] [place] [id number] [place] CO2 [Moles/Vol] 22 mmol/L Normal 22-30 [facility] Comment on above: Order Comment: Speci men Type: BLOOD SPECIMENOrdering Facility: [facility] Address: [address] [place] [address] Performed By: #### L IPNF, 70597-0 ####[facility] LABCLIA [id number] [place] [address] [place] Creatinine [Mass/Vol] 1.10 mg/dL Normal 0.73-1.22 [facility] Comment on above: Order Comment: Speci men Type: BLOOD SPECIMENOrdering Facility: [facility] Address: [address] [place] [address] Performed By: #### L IPNF, 67941-1 ####[facility] LABCLIA [id number] [place] [address] [place] Creatinine and Glomerular filtration rate.predicted panel (S/P/Bld) 78 mL/min/1.73m??? Normal >=60 [facility] Comment on above: Order Comment: Speci men Type: BLOOD SPECIMENOrdering Facility: [facility] Address: [address] [place] [address] Result Comment: Marilyn mated Glomerular Filtration Rate (eGFR) is calculated using the 2020 CKD-EPI creatinine equation. This equation utilizes serum creatinine, sex, and age as parameters. The creatinine assay has traceable calibration to isotope dilution-mass spectrometry. Refer to KDIGO guidelines for clinical interpretation. In patients with unstable renal function, e.g. those with acute kidney injury, the eGFR may not accurately reflect actual GFR. Performed By: #### L IPNF, 02850-1 ####[facility] LABCLIA [id number] [place] [id number] [place] Glucose [Mass/Vol] 117 mg/dL High 74-99 [facility] Comment on above: Order Comment: Speci men Type: BLOOD SPECIMENOrdering Facility: [facility] Address: [address] [place] [address] Result Comment: The [place] Diabetes [employer] (ADA) provides guidance for cutoff values for fasting glucose and random glucose. The ADA defines fasting as no caloric intake for at least 8 hours. Fasting plasma glucose results between 100 to 125 mg/dL indicate increased risk for diabetes (prediabetes). Fasting plasma glucose results greater than or equal to 126 mg/dL meet the criteria for diagnosis of diabetes. In the absence of unequivocal hyperglycemia, results should be confirmed by repeat testing. In a patient with classic symptoms of hyperglycemia or hyperglycemic crisis, random plasma glucose results greater than or equal to 200 mg/dL meet the criteria for diagnosis of diabetes. Reference: Standards of Medical Care in Diabetes 2016, [place] [employer]. Diabetes Care. 2016.39(Suppl 1). Performed By: #### L IPCRYSTAL, 13639-9 ####[facility] LABIA [id number] [place] [id number] [place] Potassium [Moles/Vol] 5.5 mmol/L High 3.7-5.1 [facility] Comment on above: Order Comment: Speci men Type: BLOOD SPECIMENOrdering Facility: [facility] Address: [address] [place] [address] Performed By: #### L IPNF, 44537-9 ####[facility] LABIA [id number] [address] [address] [place] Protein [Mass/Vol] 6.2 g/dL Low 6.3-8.0 [facility] Comment on above: Order Comment: Speci men Type: BLOOD SPECIMENOrdering Facility: [facility] Address: [address] [place], [place] [address] Performed By: #### L IPNF, 63951-4 ####[facility] LABCLIA [id number] [address] [address] [place] Sodium [Moles/Vol] 141 mmol/L Normal 136-144 [facility] Comment on above: Order Comment: Speci men Type: BLOOD SPECIMENOrdering Facility: [facility] Address: [address] [place] [address] Performed By: #### L IPNF, 95533-2 ####[facility] LABCLIA [id number] [place] [address] [place] Urea nitrogen [Mass/Vol] 9 mg/dL Normal 9-24 [facility] Comment on above: Order Comment: Speci men Type: BLOOD SPECIMENOrdering Facility: [facility] Address: [address] [place] [address] Performed By: #### L IPNF, 06241-0 ####[facility] LABIA [id number] [address] [address] [place] HbA1c (Bld)on 10-13-2024 Average glucose Estimated from glycated hemoglobin (Bld) [Mass/Vol] 117 mg/dL Normal [facility] Comment on above: Order Comment: Speci men Type: BLOOD SPECIMENOrdering Facility: [facility] Address: [address] [place] [address] Result Comment: eAG: (Estimated average glucose) is a calculated value from HgbA1c and is physician representative of the average blood glucose level in the last 2-3 month period. Performed By: #### 5 5454-3 ####[facility] [id number] [place] [address] [place] HbA1c (Bld) [Mass fraction] 5.7 % High 4.3-5.6 [facility] Comment on above: Order Comment: Speci men Type: BLOOD SPECIMENOrdering Facility: [facility] Address: [address] [place] [address] Result Comment: A he terozygous hemoglobin variant was possibly detected. Most heterozygous hemoglobin variants do not interfere with this assay. However, interpret this hemoglobin A1c result within the patient's clinical context, as the lifespan of red blood cells may be altered. If identification of a previously unidentified hemoglobin variant is clinically indicated, consider ordering the hemoglobin evaluation cascade test. [place] Diabetes [employer] guidelines indicate that patients with HgbA1c in the range 5.7-6.4% are at increased risk for development of diabetes, and intervention by lifestyle modification may be beneficial. HgbA1c greater or equal to 6.5% is considered diagnostic of diabetes. Performed By: #### 5 5454-3 ####[facility] LABCLIA [id number] [place] [address] [place] LIPID PANEL, NONFASTINGon Cholesterol [Mass/Vol] 60 mg/dL Normal <200 [facility] Comment on above: Order Comment: David ortega Type: BLOOD SPECIMENOrdering Facility: [facility] Address: [address] [place] [address] Result Comment: <200 mg/dL, Desirable 200-239 mg/dL, Borderline high >239 mg/dL, High Performed By: #### L AGAPITO, 38227-0 ####[facility] LABIA [id number] [place] [address] [place] [facility] HDL CHOLESTEROL, NF 31 mg/dL Low >39 [facility] Comment on above: Order Comment: David ortega Type: BLOOD SPECIMENOrdering Facility: [facility] Address: [address] [place] [address] Result Comment: 40-5 9 mg/dL, Acceptable >59 mg/dL, High: Negative risk factor for coronary heart disease <40 mg/dL, Low: Positive risk factor for coronary heart disease Performed By: #### L AGAPITO, 46739-9 ####[facility] LABCLIA [id number] [address] [place] LDL CHOLESTEROL CALCULATED, NF <20 Normal <100 [facility] Comment on above: Order Comment: David men Type: BLOOD SPECIMENOrdering Facility: [facility] Address: [address] [place] [address] Result Comment: <100 mg/dL, Optimal 100-129 mg/dL, Near optimal/above optimal 130-159 mg/dL, Borderline high 160-189 mg/dL, High >189 mg/dL, Very high Secondary prevention optimal LDL Cholesterol levels are recommended to be <70 mg/dL LDL cholesterol is calculated using the Ye-NIH equation. Performed By: #### L AGAPITO, 60835-7 ####[facility] LABCLIA [id number] [address] OF [facility] LDL/HDL RATIO, NF <0.65 Normal <2.54 [facility] Comment on above: Order Comment: David jordan Type: BLOOD SPECIMENOrdering Facility: [facility] Address: [address] [place] [address] Result Comment: Refe randal: 1. National Cholesterol Education Program ATP III Guideline At-A-Glance Quick Desk Reference: National Heart, Lung, and Blood [place]. National Institutes of Health. 2001: NIH Publication No. 01-3305. 2. An International Atherosclerosis Society position paper: global recommendations for the management of dyslipidemia: executive summary, Atherosclerosis. 2014: 232(2):410-413. Performed By: #### L AGAPITO, 72822-2 ####[facility] LABIA [id number] [address] OF [facility] NON HDL CHOL, NF 29 mg/dL Normal <130 [facility] Comment on above: Order Comment: Martinnorth ortega Type: BLOOD SPECIMENOrdering Facility: [facility] Address: [address] [place] [address] Result Comment: <130 mg/dL, Optimal 130-159 mg/dL, Near optimal/above optimal 160-189 mg/dL, Borderline high 190-219 mg/dL, High >219 mg/dL, Very high Secondary prevention optimal non HDL Cholesterol levels are recommended to be <100 mg/dL Performed By: #### L AGAPITO, 17465-4 ####[facility] LABCLIA [id number] [place] [address] [place] T CHOL/HDL RATIO NF 1.94 mg/dL Normal <5.10 [facility] Comment on above: Order Comment: Speci men Type: BLOOD SPECIMENOrdering Facility: [facility] Address: [address] [place] [address] Performed By: #### L IPNF, 97623-5 ####[facility] LABIA [id number] [place] [address] [place] TRIGLYCERIDES, NF 48 mg/dL Normal <150 [facility] Comment on above: Order Comment: Speci men Type: BLOOD SPECIMENOrdering Facility: [facility] Address: [address] [place] [address] Result Comment: <150 mg/dL, Normal 150-199 mg/dL, Borderline high 200-499 mg/dL, High >499 mg/dL, Very high Performed By: #### L IPNF, 77724-3 ####[facility] LABIA [id number] [place] [address] [place] VLDL CHOLESTEROL, NF 6 mg/dL Normal <30 [facility] Comment on above: Order Comment: Speci men Type: BLOOD SPECIMENOrdering Facility: [facility] Address: [address] [place] [address] Performed By: #### L IPNF, 76476-4 ####[facility] LABIA [id number] [place] [address] [place] CNPGianna 09-22-2024 CNPN Telephone (INTMWS) -- BERTA JARAMILLO ([id number]) 1965 M Date Time Provider Department 09/22/24 RACHEL CHERY During your visit today, we recorded the following information about you: Angelic Toro LPN 09/22/2024 10:53 AM Signed [facility] reports PA is needed for qty on pregabalin 225. This was completed electronically and approved. Facility notified. Allergies As of Date: 09/22/2024 (No Known Allergies) Date Reviewed: 08/23/2024 Reviewed by: Katalina Cotto LPN - Fully Assessed Reason for Visit: Insurance Authorization [[id number]] Prescriptions as of 09/22/2024 - pregabalin (LYRICA) 225 mg capsule Take 1 capsule by mouth three times a day for 180 days. - ferrous sulfate 325 mg (65 mg iron) tablet Take 1 tablet by mouth every other day. - insulin glargine (BASAGLAR KWIKPEN U-100 INSULIN) 100 unit/mL (3 mL) Inject 10 Units subcutaneously daily at bedtime. Will adjust insulin orders as needed and send new RX when dose adjusted - amitriptyline (ELAVIL) 50 mg tablet Take 1 tablet by mouth daily at bedtime. - pyridoxine, vitamin B6, (VITAMIN B-6) 50 mg tablet Take 1 tablet by mouth once daily. - dextrose 40 % gel Take 15 g by mouth as needed. - zinc sulfate 220 mg (50 mg zinc) capsule Take 1 capsule by mouth once daily for 7 doses. - polyethylene glycol 3350 17 gram packet Take 1 Packet by mouth once daily as needed for constipation. Dissolve dose in 4 - 8 ounces of liquid and take as directed. - acetaminophen (TYLENOL) 500 mg tablet Take 2 tablets by mouth every 8 hours as needed for pain. - sertraline (ZOLOFT) 100 mg tablet Take 100 mg by mouth daily at bedtime. - atorvastatin (LIPITOR) 80 mg tablet Take 1 tablet by mouth once daily. - lisinopril (ZESTRIL) 10 mg tablet Take 1 tablet by mouth once daily. - metoprolol tartrate, short acting, (LOPRESSOR) 25 mg tablet Take 1 tablet by mouth two times a day. - pantoprazole DR (PROTONIX) 40 mg tablet Take 1 tablet by mouth once daily. - busPIRone (BUSPAR) 15 mg tablet Take 1 tablet by mouth three times a day. - ezetimibe (ZETIA) 10 mg tablet Take 1 tablet by mouth once daily. - Diaper,Brief, Adult,Disposable Change at least twice daily - amLODIPine (NORVASC) 5 mg tablet Take 1 tablet by mouth once daily. May also take 1 tablet once daily as needed (For BP over 150/95). - metFORMIN (GLUCOPHAGE) 1,000 mg tablet Take 1,000 mg by mouth two times a day with meals. - insulin aspart (NOVOLOG FLEXPEN U-100 INSULIN SUBCUTANEOUS) Inject 2 Units subcutaneously daily at bedtime. - multivit,calc,mins/iron/fo lic (THERA-M ORAL) Take 1 tablet by mouth daily at 6 am. - loperamide HCl (IMODIUM A-D) 2 mg tab Take 2 mg by mouth every 6 hours as needed (loose stool). Patient should start on March 28, 2024. - dulaglutide (TRULICITY) 1.5 mg/0.5 mL pen injector Inject 1.5 mg subcutaneously one time a week. - insulin aspart U-100 (NOVOLOG FLEXPEN U-100 INSULIN) 100 unit/mL (3 mL) USE SLIDING SCALE ONLY. Sliding scale 150=0, 151-200-1 units, 201-250=2 units, 251-300=3 units, 301-350=4 units, 351-400=5 units based on pre meal blood sugar only as needed. - fluticasone (FLONASE) 50 mcg/actuation nasal spray Use 2 Sprays in each nostril once daily as needed for cold/allergy symptoms. Rinse mouth after use. - DUPIXENT SYRINGE 300 mg/2 mL injection Inject 300 mg subcutaneously every 2 weeks. - ascorbic acid, vitamin C, (VITAMIN C) 500 mg tablet Take 1 tablet by mouth once daily. - aspirin 81 mg cap Take 1 Each by mouth once daily. - Insulin Celeste, Disposable, (PEN NEEDLE) 32 gauge x 5/32 Inject 1 Each subcutaneously every 24 hours. Give with each insulin administration. - blood sugar diagnostic (BLOOD GLUCOSE TEST) test strip Test blood sugar(s) 4 times daily and PRN. Dx: Type 2 DM - Controlled E11.9 Insulin: Yes - Lancets lancets Test blood sugar(s) 4 times daily and prn. Dx: Type 2 DM - Controlled E11.9 Insulin: Yes - alcohol swabs Apply 1 Each to affected area four times daily. - Blood-Glucose Meter 1 Each four times daily. - Cholecalciferol, Vitamin D3, 125 mcg (5,000 unit) cap Take 1 tab daily with food. - melatonin 10 mg cap Take 1 capsule by mouth daily at bedtime. - Blood-Glucose Meter,Continuous (DEXCOM G7 COTTON WEIGHER) [facility] Dispense one chief innovation officer kit. USE FOR CONTINUOUS GLUCOSE MONITORING. MULTIPLE INSULIN INJECTIONS. E11.9 - Blood-Glucose Sensor (DEXCOM G7 SENSOR) kimberly CHANGE SENSOR EVERY 10 days. USE FOR CONTINUOUS GLUCOSE MONITORING. MULTIPLE INSULIN INJECTIONS. E11.9 - cyanocobalamin (VITAMIN B-12) 1,000 mcg tab Take 1 tablet by mouth once daily. - ondansetron orally disintegrating (ZOFRAN ODT) 4 mg disintegrating tablet Take 4 mg by mouth every 8 hours as needed for nausea/vomiting. - tamsulosin (FLOMAX) 0.4 mg Take 2 capsules by mouth once daily. - sucralfate (CARAFATE) 1 (more content not included)... [facility] BERT[facility] JAR[facility]ILL[facility] ([id number]) 1965 M Date Time Provider Department 08/25/24 MARNI LINDER During your visit today, we recorded the following information about you: Marni Linder MSW 08/25/2024 12:53 PM Signed Andrey spoke with patient residing in [place] in [place]. Patient reports that he does everything for himself and notes that he would like to find independent living. Patient notes that he currently is on [employer]ou[employer] that helps with cost of housing. Sw and patient discussed [facility] as they may be able to help with looking at different housing options for patient. Sw noted that she would send patient My Chart message with [facility] Rae contact info. Allergies As of Date: 08/25/2024 (No Known Allergies) Date Reviewed: 08/23/2024 Reviewed by: Katalina Cotto LPN - Fully Assessed Prescriptions as of 08/25/2024 - pregabalin (LYRICA) 225 mg capsule Take 1 capsule by mouth three times a day for 180 days. - ferrous sulfate 325 mg (65 mg iron) tablet Take 1 tablet by mouth every other day. - insulin glargine (BASAGLAR KWIKPEN U-100 INSULIN) 100 unit/mL (3 mL) Inject 10 Units subcutaneously daily at bedtime. Will adjust insulin orders as needed and send new RX when dose adjusted - amitriptyline (ELAVIL) 50 mg tablet Take 1 tablet by mouth daily at bedtime. - pyridoxine, vitamin B6, (VITAMIN B-6) 50 mg tablet Take 1 tablet by mouth once daily. - dextrose 40 % gel Take 15 g by mouth as needed. - zinc sulfate 220 mg (50 mg zinc) capsule Take 1 capsule by mouth once daily for 7 doses. - polyethylene glycol 3350 17 gram packet Take 1 Packet by mouth once daily as needed for constipation. Dissolve dose in 4 - 8 ounces of liquid and take as directed. - acetaminophen (TYLENOL) 500 mg tablet Take 2 tablets by mouth every 8 hours as needed for pain. - sertraline (ZOLOFT) 100 mg tablet Take 100 mg by mouth daily at bedtime. - atorvastatin (LIPITOR) 80 mg tablet Take 1 tablet by mouth once daily. - lisinopril (ZESTRIL) 10 mg tablet Take 1 tablet by mouth once daily. - metoprolol tartrate, short acting, (LOPRESSOR) 25 mg tablet Take 1 tablet by mouth two times a day. - pantoprazole DR (PROTONIX) 40 mg tablet Take 1 tablet by mouth once daily. - busPIRone (BUSPAR) 15 mg tablet Take 1 tablet by mouth three times a day. - ezetimibe (ZETIA) 10 mg tablet Take 1 tablet by mouth once daily. - Diaper,Brief, Adult,Disposable Change at least twice daily - amLODIPine (NORVASC) 5 mg tablet Take 1 tablet by mouth once daily. May also take 1 tablet once daily as needed (For BP over 150/95). - metFORMIN (GLUCOPHAGE) 1,000 mg tablet Take 1,000 mg by mouth two times a day with meals. - insulin aspart (NOVOLOG FLEXPEN U-100 INSULIN SUBCUTANEOUS) Inject 2 Units subcutaneously daily at bedtime. - multivit,calc,mins/iron/fo lic (THERA-M ORAL) Take 1 tablet by mouth daily at 6 am. - loperamide HCl (IMODIUM A-D) 2 mg tab Take 2 mg by mouth every 6 hours as needed (loose stool). Patient should start on March 28, 2024. - dulaglutide (TRULICITY) 1.5 mg/0.5 mL pen injector Inject 1.5 mg subcutaneously one time a week. - insulin aspart U-100 (NOVOLOG FLEXPEN U-100 INSULIN) 100 unit/mL (3 mL) USE SLIDING SCALE ONLY. Sliding scale 150=0, 151-200-1 units, 201-250=2 units, 251-300=3 units, 301-350=4 units, 351-400=5 units based on pre meal blood sugar only as needed. - fluticasone (FLONASE) 50 mcg/actuation nasal spray Use 2 Sprays in each nostril once daily as needed for cold/allergy symptoms. Rinse mouth after use. - DUPIXENT SYRINGE 300 mg/2 mL injection Inject 300 mg subcutaneously every 2 weeks. - ascorbic acid, vitamin C, (VITAMIN C) 500 mg tablet Take 1 tablet by mouth once daily. - aspirin 81 mg cap Take 1 Each by mouth once daily. - Insulin Celeste, Disposable, (PEN NEEDLE) 32 gauge x 5/32 Inject 1 Each subcutaneously every 24 hours. Give with each insulin administration. - blood sugar diagnostic (BLOOD GLUCOSE TEST) test strip Test blood sugar(s) 4 times daily and PRN. Dx: Type 2 DM - Controlled E11.9 Insulin: Yes - Lancets lancets Test blood sugar(s) 4 times daily and prn. Dx: Type 2 DM - Controlled E11.9 Insulin: Yes - alcohol swabs Apply 1 Each to affected area four times daily. - Blood-Glucose Meter 1 Each four times daily. - Cholecalciferol, Vitamin D3, 125 mcg (5,000 unit) cap Take 1 tab daily with food. - melatonin 10 mg cap Take 1 capsule by mouth daily at bedtime. - Blood-Glucose Meter,Continuous (DEXCOM G7 COTTON WEIGHER) [facility] Dispense one chief innovation officer kit. USE FOR CONTINUOUS GLUCOSE MONITORING. MULTIPLE INSULIN INJECTIONS. E11.9 - Blood-Glucose Sensor (DEXCOM G7 SENSOR) kimberly CHANGE SENSOR EVERY 10 days. USE FOR CONTINUOUS GLUCOSE MONITORING. MULTIPLE INSULIN INJECTIONS. E11.9 - cyanocobalamin (VITAMIN B-12) 1,00 (more content not included)... Normal [facility] CNOVon 08-23-2024 CNOV Office Visit (INTMWS ) -- BERTA JARAMILLO ([id number]) 1965 M Date Time Provider Department 08/23/24 3:20 PM RACHEL CHERY INTMWS During your visit today, we recorded the following information about you: Pulse Respiration Blood pressure Weight 96/minute 12/minute 104/50 100.2 kg Rachel Chery MD 09/04/2024 10:58 AM Signed This note was created using [employer]. Subjective Berta Jaramillo is a 59 year old male. Patient presents with: 3 month f/up Berta is a 59-year-old male with a history of HTN, DM, and neuropathy, presenting for a 3-month follow-up. Berta reports experiencing pruritus on his hands, which he attributes to dryness. He has been using lotion but is unsure of its effectiveness. He frequently washes his hands and uses Emily soap when washing dishes, but does not wear gloves. He is currently taking amitriptyline 50 mg at bedtime for neuropathic pain. He also reports feeling lightheaded and dizzy at times, which he believes is related to his BP. His BP readings have ranged from 110s to 120s systolic and 60s to 80s diastolic, with a recent reading of 104/50 mmHg. He is currently taking amlodipine 5 mg daily, with an additional dose if his BP exceeds 150/95 mmHg. He is also on aspirin 81 mg daily and atorvastatin 80 mg daily. Berta monitors his blood glucose levels and reports that his morning readings are generally good, ranging from 126 to 159 mg/dL. However, he notes that his bedtime readings are often high, around 209 mg/dL. He attributes this to his dietary habits, as he only eats one meal a day due to dissatisfaction with the food provided at his assisted living facility. He is currently on Basaglar insulin. Berta expresses significant dissatisfaction with his current living situation at [facility], an assisted living facility. He reports feeling isolated and lonely, stating that he has no family or friends nearby and rarely receives visitors. He also expresses frustration with the quality of care and maintenance at the facility, noting issues with his carpet and inadequate cleaning services. He desires to move back to [facility] to be closer to his mother, who lives in [place] [facility] in [place]. However, he feels financially constrained, receiving only $50 a month, which he primarily spends on cigarettes. Berta reports feeling tired and weary, both physically and emotionally. He expresses feelings of hopelessness and a desire to find a way out, including thoughts of ending his life. He mentions a past incident where he attempted self-harm but was interrupted by a phone call. He also reports a history of depression and asks about the possibility of taking Valium for his symptoms. He expresses a desire to attend sikh and reconnect with his liza, but feels overwhelmed by his current circumstances. PAST MEDICAL HISTORY Diagnosis Date Atopic eczema Benign prostatic hyperplasia with urinary hesitancy Chronic anemia Depression Depression Diabetes mellitus (HCC) Essential hypertension Gastroesophageal reflux disease without esophagitis Generalized anxiety disorder Hypercholesterolemia Neuropathy Osteomyelitis of right foot (HCC) Tobacco use Current Outpatient Medications Medication Sig pregabalin (LYRICA) 225 mg capsule Take 1 capsule by mouth three times a day for 180 days. ferrous sulfate 325 mg (65 mg iron) tablet Take 1 tablet by mouth every other day. insulin glargine (BASAGLAR KWIKPEN U-100 INSULIN) 100 unit/mL (3 mL) Inject 10 Units subcutaneously daily at bedtime. Will adjust insulin orders as needed and send new RX when dose adjusted amitriptyline (ELAVIL) 50 mg tablet Take 1 tablet by mouth daily at bedtime. polyethylene glycol 3350 17 gram packet Take 1 Packet by mouth once daily as needed for constipation. Dissolve dose in 4 - 8 ounces of liquid and take as directed. acetaminophen (TYLENOL) 500 mg tablet Take 2 tablets by mouth every 8 hours as needed for pain. sertraline (ZOLOFT) 100 mg tablet Take 100 mg by mouth daily at bedtime. lisinopril (ZESTRIL) 10 mg tablet Take 1 tablet by mouth once daily. metoprolol tartrate, short acting, (LOPRESSOR) 25 mg tablet Take 1 tablet by mouth two times a day. pantoprazole DR (PROTONIX) 40 mg tablet Take 1 tablet by mouth once daily. busPIRone (BUSPAR) 15 mg tablet Take 1 tablet by mouth three times a day. ezetimibe (ZETIA) 10 mg tablet Take 1 tablet by mouth once daily. Diaper,Brief, Adult,Disposable Change at least twice daily amLODIPine (NORVASC) 5 mg tablet Take 1 tablet by mouth once daily. May also take 1 tablet once daily as needed (For BP over 150/95). metFORMIN (GLUCOPHAGE) 1,000 mg tablet Take 1,000 mg by mouth two times a day with meals. insulin aspart (NOVOLOG FLEXPEN U-100 INSULIN SUBCUTANEOUS) Inject 2 Units subcutaneously daily at (more content not included)... [facility] BERTA JARAMILLO ([id number]) 1965 M Date Time Provider Department 08/02/24 CORAL MARTINEZ During your visit today, we recorded the following information about you: Allan Breaux RN 08/02/2024 1:14 PM Signed Signed CMN for Dexcom G7 sensors faxed to [employer]. Notified [employer] rep that Pt's last OV note with Coral Martinez CNP was 11/10/2023; OV note provided via electronic fax. Fax confirmation received. PSS contacted assisted living where Pt resides and scheduled Pt for diabetic f/u appointment with Coral Martinez on 09/20/2024. Updated OV notes will be faxed at that time. Allan Breaux RN August 02, 2024 1:14 PM Allergies As of Date: 08/02/2024 (No Known Allergies) Date Reviewed: 05/25/2024 Reviewed by: Kenzie Curtis LPN - Fully Assessed Reason for Visit: CMN to DME [Other] Prescriptions as of 08/02/2024 - ferrous sulfate 325 mg (65 mg iron) tablet Take 1 tablet by mouth every other day. - insulin glargine (BASAGLAR KWIKPEN U-100 INSULIN) 100 unit/mL (3 mL) Inject 10 Units subcutaneously daily at bedtime. Will adjust insulin orders as needed and send new RX when dose adjusted - amitriptyline (ELAVIL) 50 mg tablet Take 1 tablet by mouth daily at bedtime. - pyridoxine, vitamin B6, (VITAMIN B-6) 50 mg tablet Take 1 tablet by mouth once daily. - dextrose 40 % gel Take 15 g by mouth as needed. - zinc sulfate 220 mg (50 mg zinc) capsule Take 1 capsule by mouth once daily for 7 doses. - polyethylene glycol 3350 17 gram packet Take 1 Packet by mouth once daily as needed for constipation. Dissolve dose in 4 - 8 ounces of liquid and take as directed. - acetaminophen (TYLENOL) 500 mg tablet Take 2 tablets by mouth every 8 hours as needed for pain. - sertraline (ZOLOFT) 100 mg tablet Take 100 mg by mouth daily at bedtime. - atorvastatin (LIPITOR) 80 mg tablet Take 1 tablet by mouth once daily. - lisinopril (ZESTRIL) 10 mg tablet Take 1 tablet by mouth once daily. - metoprolol tartrate, short acting, (LOPRESSOR) 25 mg tablet Take 1 tablet by mouth two times a day. - pantoprazole DR (PROTONIX) 40 mg tablet Take 1 tablet by mouth once daily. - pregabalin (LYRICA) 225 mg capsule Take 1 capsule by mouth three times a day for 180 days. - busPIRone (BUSPAR) 15 mg tablet Take 1 tablet by mouth three times a day. - ezetimibe (ZETIA) 10 mg tablet Take 1 tablet by mouth once daily. - Diaper,Brief, Adult,Disposable Change at least twice daily - amLODIPine (NORVASC) 5 mg tablet Take 1 tablet by mouth once daily. May also take 1 tablet once daily as needed (For BP over 150/95). - metFORMIN (GLUCOPHAGE) 1,000 mg tablet Take 1,000 mg by mouth two times a day with meals. - insulin aspart (NOVOLOG FLEXPEN U-100 INSULIN SUBCUTANEOUS) Inject 2 Units subcutaneously daily at bedtime. - multivit,calc,mins/iron/fo lic (THERA-M ORAL) Take 1 tablet by mouth daily at 6 am. - loperamide HCl (IMODIUM A-D) 2 mg tab Take 2 mg by mouth every 6 hours as needed (loose stool). Patient should start on March 28, 2024. - dulaglutide (TRULICITY) 1.5 mg/0.5 mL pen injector Inject 1.5 mg subcutaneously one time a week. - insulin aspart U-100 (NOVOLOG FLEXPEN U-100 INSULIN) 100 unit/mL (3 mL) USE SLIDING SCALE ONLY. Sliding scale 150=0, 151-200-1 units, 201-250=2 units, 251-300=3 units, 301-350=4 units, 351-400=5 units based on pre meal blood sugar only as needed. - fluticasone (FLONASE) 50 mcg/actuation nasal spray Use 2 Sprays in each nostril once daily as needed for cold/allergy symptoms. Rinse mouth after use. - DUPIXENT SYRINGE 300 mg/2 mL injection Inject 300 mg subcutaneously every 2 weeks. - ascorbic acid, vitamin C, (VITAMIN C) 500 mg tablet Take 1 tablet by mouth once daily. - aspirin 81 mg cap Take 1 Each by mouth once daily. - Insulin Celeste, Disposable, (PEN NEEDLE) 32 gauge x 5/32 Inject 1 Each subcutaneously every 24 hours. Give with each insulin administration. - blood sugar diagnostic (BLOOD GLUCOSE TEST) test strip Test blood sugar(s) 4 times daily and PRN. Dx: Type 2 DM - Controlled E11.9 Insulin: Yes - Lancets lancets Test blood sugar(s) 4 times daily and prn. Dx: Type 2 DM - Controlled E11.9 Insulin: Yes - alcohol swabs Apply 1 Each to affected area four times daily. - Blood-Glucose Meter 1 Each four times daily. - Cholecalciferol, Vitamin D3, 125 mcg (5,000 unit) cap Take 1 tab daily with food. - melatonin 10 mg cap Take 1 capsule by mouth daily at bedtime. - Blood-Glucose Meter,Continuous (DEXCOM G7 COTTON WEIGHER) [facility] [place] Dispense one chief innovation officer kit. USE FOR CONTINUOUS GLUCOSE MONITORING. MULTIPLE INSULIN INJECTIONS. E11.9 - Blood-Glucose Sensor (DEXCOM G7 SENSOR) kimberly CHANGE SENSOR EVERY 10 days. USE FOR CONTINUOUS GLUCOSE MONITORING. MULTIPLE INSULIN INJECTIONS. E11.9 - cyanocobalamin (VITAMIN B-12) 1,000 mcg tab (more content not included)... [facility] Tele[facility] (4CQ) -- BERTA JARAMILLO ([id number]) 1965 M Date Time Provider Department 08/01/24 RACHEL CHERY 4CQ During your visit today, we recorded the following information about you: Wendy Burks 08/01/2024 11:02 AM Signed Spoke with the patient and he declined to arrange a Consult with Lung Cancer Screening Program Allergies As of Date: 08/01/2024 (No Known Allergies) Date Reviewed: 05/25/2024 Reviewed by: Kenzie Curtis LPN - Fully Assessed Prescriptions as of 08/01/2024 - ferrous sulfate 325 mg (65 mg iron) tablet Take 1 tablet by mouth every other day. - insulin glargine (BASAGLAR KWIKPEN U-100 INSULIN) 100 unit/mL (3 mL) Inject 10 Units subcutaneously daily at bedtime. Will adjust insulin orders as needed and send new RX when dose adjusted - amitriptyline (ELAVIL) 50 mg tablet Take 1 tablet by mouth daily at bedtime. - pyridoxine, vitamin B6, (VITAMIN B-6) 50 mg tablet Take 1 tablet by mouth once daily. - dextrose 40 % gel Take 15 g by mouth as needed. - zinc sulfate 220 mg (50 mg zinc) capsule Take 1 capsule by mouth once daily for 7 doses. - polyethylene glycol 3350 17 gram packet Take 1 Packet by mouth once daily as needed for constipation. Dissolve dose in 4 - 8 ounces of liquid and take as directed. - acetaminophen (TYLENOL) 500 mg tablet Take 2 tablets by mouth every 8 hours as needed for pain. - sertraline (ZOLOFT) 100 mg tablet Take 100 mg by mouth daily at bedtime. - atorvastatin (LIPITOR) 80 mg tablet Take 1 tablet by mouth once daily. - lisinopril (ZESTRIL) 10 mg tablet Take 1 tablet by mouth once daily. - metoprolol tartrate, short acting, (LOPRESSOR) 25 mg tablet Take 1 tablet by mouth two times a day. - pantoprazole DR (PROTONIX) 40 mg tablet Take 1 tablet by mouth once daily. - pregabalin (LYRICA) 225 mg capsule Take 1 capsule by mouth three times a day for 180 days. - busPIRone (BUSPAR) 15 mg tablet Take 1 tablet by mouth three times a day. - ezetimibe (ZETIA) 10 mg tablet Take 1 tablet by mouth once daily. - Diaper,Brief, Adult,Disposable Change at least twice daily - amLODIPine (NORVASC) 5 mg tablet Take 1 tablet by mouth once daily. May also take 1 tablet once daily as needed (For BP over 150/95). - metFORMIN (GLUCOPHAGE) 1,000 mg tablet Take 1,000 mg by mouth two times a day with meals. - insulin aspart (NOVOLOG FLEXPEN U-100 INSULIN SUBCUTANEOUS) Inject 2 Units subcutaneously daily at bedtime. - multivit,calc,mins/iron/fo lic (THERA-M ORAL) Take 1 tablet by mouth daily at 6 am. - loperamide HCl (IMODIUM A-D) 2 mg tab Take 2 mg by mouth every 6 hours as needed (loose stool). Patient should start on March 28, 2024. - dulaglutide (TRULICITY) 1.5 mg/0.5 mL pen injector Inject 1.5 mg subcutaneously one time a week. - insulin aspart U-100 (NOVOLOG FLEXPEN U-100 INSULIN) 100 unit/mL (3 mL) USE SLIDING SCALE ONLY. Sliding scale 150=0, 151-200-1 units, 201-250=2 units, 251-300=3 units, 301-350=4 units, 351-400=5 units based on pre meal blood sugar only as needed. - fluticasone (FLONASE) 50 mcg/actuation nasal spray Use 2 Sprays in each nostril once daily as needed for cold/allergy symptoms. Rinse mouth after use. - DUPIXENT SYRINGE 300 mg/2 mL injection Inject 300 mg subcutaneously every 2 weeks. - ascorbic acid, vitamin C, (VITAMIN C) 500 mg tablet Take 1 tablet by mouth once daily. - aspirin 81 mg cap Take 1 Each by mouth once daily. - Insulin Celeste, Disposable, (PEN NEEDLE) 32 gauge x 5/32 Inject 1 Each subcutaneously every 24 hours. Give with each insulin administration. - blood sugar diagnostic (BLOOD GLUCOSE TEST) test strip Test blood sugar(s) 4 times daily and PRN. Dx: Type 2 DM - Controlled E11.9 Insulin: Yes - Lancets lancets Test blood sugar(s) 4 times daily and prn. Dx: Type 2 DM - Controlled E11.9 Insulin: Yes - alcohol swabs Apply 1 Each to affected area four times daily. - Blood-Glucose Meter 1 Each four times daily. - Cholecalciferol, Vitamin D3, 125 mcg (5,000 unit) cap Take 1 tab daily with food. - melatonin 10 mg cap Take 1 capsule by mouth daily at bedtime. - Blood-Glucose Meter,Continuous (DEXCOM G7 COTTON WEIGHER) [facility] [place] Dispense one chief innovation officer kit. USE FOR CONTINUOUS GLUCOSE MONITORING. MULTIPLE INSULIN INJECTIONS. E11.9 - Blood-Glucose Sensor (DEXCOM G7 SENSOR) kimberly CHANGE SENSOR EVERY 10 days. USE FOR CONTINUOUS GLUCOSE MONITORING. MULTIPLE INSULIN INJECTIONS. E11.9 - cyanocobalamin (VITAMIN B-12) 1,000 mcg tab Take 1 tablet by mouth once daily. - ondansetron orally disintegrating (ZOFRAN ODT) 4 mg disintegrating tablet Take 4 mg by mouth every 8 hours as needed for nausea/vomiting. - tamsulosin (FLOMAX) 0.4 mg Take 2 capsules by mouth once daily. - sucralfate (CARAFATE) 1 gram tablet Take 1 tablet by mouth four times daily. - leflunomide (ARAVA) 10 mg ta (more content not included)... Normal [facility] 07-28-2024 [facility] Telephone (INTMWS) -- HUMAIRA JARAMILLOIP Tamiko ([id number]) 1965 M Date Time Provider Department 07/28/24 RACHEL CHERY During your visit today, we recorded the following information about you: Margo Deng RN 07/28/2024 12:42 PM Signed [facility] asking if pcp received form they faxed to her on 07/24/24, for patient to get diabetic supplies. States she will fax it again today. Phoned pt to confirm he wants diabetic supplies from this company. No answer. Voice mailbox has not been set up. Alejandra Montalvo LPN 07/28/2024 1:17 PM Signed This form was faxed to Endocrinology. Allan Breaux RN 07/28/2024 3:42 PM Signed CMN for Dexcom G7 sensors and chief innovation officer received from [employer]. Form completed and placed on provider's desk for signature when she returns to office on 08/02/2024. Allan Breaux RN July 28, 2024 3:41 PM Allergies As of Date: 07/28/2024 (No Known Allergies) Date Reviewed: 05/25/2024 Reviewed by: Kenzie Curtis LPN - Fully Assessed Reason for Visit: [facility] [Other] Prescriptions as of 07/28/2024 - ferrous sulfate 325 mg (65 mg iron) tablet Take 1 tablet by mouth every other day. - insulin glargine (BASAGLAR KWIKPEN U-100 INSULIN) 100 unit/mL (3 mL) Inject 10 Units subcutaneously daily at bedtime. Will adjust insulin orders as needed and send new RX when dose adjusted - amitriptyline (ELAVIL) 50 mg tablet Take 1 tablet by mouth daily at bedtime. - pyridoxine, vitamin B6, (VITAMIN B-6) 50 mg tablet Take 1 tablet by mouth once daily. - dextrose 40 % gel Take 15 g by mouth as needed. - zinc sulfate 220 mg (50 mg zinc) capsule Take 1 capsule by mouth once daily for 7 doses. - polyethylene glycol 3350 17 gram packet Take 1 Packet by mouth once daily as needed for constipation. Dissolve dose in 4 - 8 ounces of liquid and take as directed. - acetaminophen (TYLENOL) 500 mg tablet Take 2 tablets by mouth every 8 hours as needed for pain. - sertraline (ZOLOFT) 100 mg tablet Take 100 mg by mouth daily at bedtime. - atorvastatin (LIPITOR) 80 mg tablet Take 1 tablet by mouth once daily. - lisinopril (ZESTRIL) 10 mg tablet Take 1 tablet by mouth once daily. - metoprolol tartrate, short acting, (LOPRESSOR) 25 mg tablet Take 1 tablet by mouth two times a day. - pantoprazole DR (PROTONIX) 40 mg tablet Take 1 tablet by mouth once daily. - pregabalin (LYRICA) 225 mg capsule Take 1 capsule by mouth three times a day for 180 days. - busPIRone (BUSPAR) 15 mg tablet Take 1 tablet by mouth three times a day. - ezetimibe (ZETIA) 10 mg tablet Take 1 tablet by mouth once daily. - Diaper,Brief, Adult,Disposable Change at least twice daily - amLODIPine (NORVASC) 5 mg tablet Take 1 tablet by mouth once daily. May also take 1 tablet once daily as needed (For BP over 150/95). - metFORMIN (GLUCOPHAGE) 1,000 mg tablet Take 1,000 mg by mouth two times a day with meals. - insulin aspart (NOVOLOG FLEXPEN U-100 INSULIN SUBCUTANEOUS) Inject 2 Units subcutaneously daily at bedtime. - multivit,calc,mins/iron/fo lic (THERA-M ORAL) Take 1 tablet by mouth daily at 6 am. - loperamide HCl (IMODIUM A-D) 2 mg tab Take 2 mg by mouth every 6 hours as needed (loose stool). Patient should start on March 28, 2024. - dulaglutide (TRULICITY) 1.5 mg/0.5 mL pen injector Inject 1.5 mg subcutaneously one time a week. - insulin aspart U-100 (NOVOLOG FLEXPEN U-100 INSULIN) 100 unit/mL (3 mL) USE SLIDING SCALE ONLY. Sliding scale 150=0, 151-200-1 units, 201-250=2 units, 251-300=3 units, 301-350=4 units, 351-400=5 units based on pre meal blood sugar only as needed. - fluticasone (FLONASE) 50 mcg/actuation nasal spray Use 2 Sprays in each nostril once daily as needed for cold/allergy symptoms. Rinse mouth after use. - DUPIXENT SYRINGE 300 mg/2 mL injection Inject 300 mg subcutaneously every 2 weeks. - ascorbic acid, vitamin C, (VITAMIN C) 500 mg tablet Take 1 tablet by mouth once daily. - aspirin 81 mg cap Take 1 Each by mouth once daily. - Insulin Celeste, Disposable, (PEN NEEDLE) 32 gauge x 5/32 Inject 1 Each subcutaneously every 24 hours. Give with each insulin administration. - blood sugar diagnostic (BLOOD GLUCOSE TEST) test strip Test blood sugar(s) 4 times daily and PRN. Dx: Type 2 DM - Controlled E11.9 Insulin: Yes - Lancets lancets Test blood sugar(s) 4 times daily and prn. Dx: Type 2 DM - Controlled E11.9 Insulin: Yes - alcohol swabs Apply 1 Each to affected area four times daily. - Blood-Glucose Meter 1 Each four times daily. - Cholecalciferol, Vitamin D3, 125 mcg (5,000 unit) cap Take 1 tab daily with food. - melatonin 10 mg cap Take 1 capsule by mouth daily at bedtime. - Blood-Glucose Meter,Continuous (DEXCOM G7 COTTON WEIGHER) [facility] [place] Dispense one chief innovation officer kit. USE FOR CONTINUOUS GLUCOSE MONITORING. MU (more content not included)... Normal [facility] 06-13-2024 [facility] Telephone (STED) -- BERTA JARAMILLO ([id number]) 1965 M Date Time Provider Department 06/13/24 CORAL MARTINEZ During your visit today, we recorded the following information about you: Urszula Faulkner 06/13/2024 8:33 AM Signed Belem from [facility] called and asked if the office received the PA form for the Trulicity that was faxed on 05/31. Please call Belem at [phone] to update Allan Breaux RN 06/13/2024 9:19 AM Signed Call returned to Belem at [facility] and notified her that our office has never received any fax re: Trulicity prior authorization. Verified fax number, and the PA form was being faxed to [facility]s [place] office. No chart notes indicating this was received. Belem was given the fax number for [place] [facility] office (fax #: [phone]) as the default for this Pt, and will re-send the PA form now. Allan Breaux RN June 13, 2024 9:19 AM Allan Breaux RN 06/13/2024 10:15 AM Signed Prior authorization for Trulicity submitted via CoverMyMeds to [employer] Medicare Part D. Rubio: [id number] Allan Breaux RN June 13, 2024 10:15 AM Allan Breaux RN 06/14/2024 11:03 AM Signed Prior authorization notification from CoverMyMeds (see below) faxed back to [facility], where Pt resides. Fax confirmation received. Allan Breaux RN June 14, 2024 11:03 AM Allergies As of Date: 06/13/2024 (No Known Allergies) Date Reviewed: 05/25/2024 Reviewed by: Kenzie Curtis LPN - Fully Assessed Reason for Visit: Insurance Authorization [1693] Prior Authorization [Other] Cmt: Trulicity Prescriptions as of 06/14/2024 - ferrous sulfate 325 mg (65 mg iron) tablet Take 1 tablet by mouth every other day. - insulin glargine (BASAGLAR KWIKPEN U-100 INSULIN) 100 unit/mL (3 mL) Inject 10 Units subcutaneously daily at bedtime. Will adjust insulin orders as needed and send new RX when dose adjusted - amitriptyline (ELAVIL) 50 mg tablet Take 1 tablet by mouth daily at bedtime. - pyridoxine, vitamin B6, (VITAMIN B-6) 50 mg tablet Take 1 tablet by mouth once daily. - dextrose 40 % gel Take 15 g by mouth as needed. - zinc sulfate 220 mg (50 mg zinc) capsule Take 1 capsule by mouth once daily for 7 doses. - polyethylene glycol 3350 17 gram packet Take 1 Packet by mouth once daily as needed for constipation. Dissolve dose in 4 - 8 ounces of liquid and take as directed. - acetaminophen (TYLENOL) 500 mg tablet Take 2 tablets by mouth every 8 hours as needed for pain. - sertraline (ZOLOFT) 100 mg tablet Take 100 mg by mouth daily at bedtime. - atorvastatin (LIPITOR) 80 mg tablet Take 1 tablet by mouth once daily. - lisinopril (ZESTRIL) 10 mg tablet Take 1 tablet by mouth once daily. - metoprolol tartrate, short acting, (LOPRESSOR) 25 mg tablet Take 1 tablet by mouth two times a day. - pantoprazole DR (PROTONIX) 40 mg tablet Take 1 tablet by mouth once daily. - pregabalin (LYRICA) 225 mg capsule Take 1 capsule by mouth three times a day for 180 days. - busPIRone (BUSPAR) 15 mg tablet Take 1 tablet by mouth three times a day. - ezetimibe (ZETIA) 10 mg tablet Take 1 tablet by mouth once daily. - Diaper,Brief, Adult,Disposable Change at least twice daily - amLODIPine (NORVASC) 5 mg tablet Take 1 tablet by mouth once daily. May also take 1 tablet once daily as needed (For BP over 150/95). - metFORMIN (GLUCOPHAGE) 1,000 mg tablet Take 1,000 mg by mouth two times a day with meals. - insulin aspart (NOVOLOG FLEXPEN U-100 INSULIN SUBCUTANEOUS) Inject 2 Units subcutaneously daily at bedtime. - multivit,calc,mins/iron/fo lic (THERA-M ORAL) Take 1 tablet by mouth daily at 6 am. - loperamide HCl (IMODIUM A-D) 2 mg tab Take 2 mg by mouth every 6 hours as needed (loose stool). Patient should start on March 28, 2024. - dulaglutide (TRULICITY) 1.5 mg/0.5 mL pen injector Inject 1.5 mg subcutaneously one time a week. - insulin aspart U-100 (NOVOLOG FLEXPEN U-100 INSULIN) 100 unit/mL (3 mL) USE SLIDING SCALE ONLY. Sliding scale 150=0, 151-200-1 units, 201-250=2 units, 251-300=3 units, 301-350=4 units, 351-400=5 units based on pre meal blood sugar only as needed. - fluticasone (FLONASE) 50 mcg/actuation nasal spray Use 2 Sprays in each nostril once daily as needed for cold/allergy symptoms. Rinse mouth after use. - DUPIXENT SYRINGE 300 mg/2 mL injection Inject 300 mg subcutaneously every 2 weeks. - ascorbic acid, vitamin C, (VITAMIN C) 500 mg tablet Take 1 tablet by mouth once daily. - aspirin 81 mg cap Take 1 Each by mouth once daily. - Insulin Celeste, Disposable, (PEN NEEDLE) 32 gauge x 5/32 Inject 1 Each subcutaneously every 24 hours. Give with each insulin administration. - blood sugar diagnostic (BLOOD GLUCOSE TEST) test strip Test blood sugar(s) 4 times daily and PRN. D (more content not included)... [facility] BERTA JARAMILLO ([id number]) 1965 M Date Time Provider Department 05/26/24 MIKE CANDELARIO INTWS During your visit today, we recorded the following information about you: Mike Candelario, AILIN.UNATTENDED GROUND SENSOR SPECIALIST 05/26/2024 4:49 PM Signed Please let him know that he is anemic but levels are improving. I sent a prescription in for iron to be taken every other day x 30 doses. Latest Ref Rng 03/26/2024 03/27/2024 05/25/2024 WBC 3.70 - 11.00 k/uL 8.77 9.41 7.33 RBC 4.20 - 6.00 m/uL 3.71 (L) 3.92 (L) 3.93 (L) Hemoglobin 13.0 - 17.0 g/dL 8.6 (L) 9.2 (L) 10.2 (L) Hematocrit 39.0 - 51.0 % 25.5 (L) 26.6 (L) 29.5 (L) MCV 80.0 - 100.0 fL 68.7 (L) 67.9 (L) 75.1 (L) MCH 26.0 - 34.0 pg 23.2 (L) 23.5 (L) 26.0 MCHC 30.5 - 36.0 g/dL 33.7 34.6 34.6 RDW-CV 11.5 - 15.0 % 22.7 (H) 23.3 (H) 24.0 (H) Platelet Count 150 - 400 k/uL 283 295 234 MPV 9.0 - 12.7 fL 9.6 9.5 9.9 Neut% % 58.7 Abs Neut (ANC) 1.45 - 7.50 k/uL 4.30 Lymph% % 32.3 Abs Lymph 1.00 - 4.00 k/uL 2.37 [place]% % 5.3 Abs [place] <0.87 k/uL 0.39 Eosin% % 2.6 Abs Eosin <0.46 k/uL 0.19 Baso% % 1.0 Abs Baso <0.11 k/uL 0.07 Immature Gran % % 0.1 IMMATURE GRANS (ABS) <0.10 k/uL <0.03 NRBC /100 WBC 0.3 Absolute nRBC <0.01 k/uL 0.03 (H) 0.05 (H) 0.02 (H) DTYPE Auto Patient's last HgA1C was Hemoglobin A1C (%) Date Value 03/22/2024 7.1 09/13/2023 6.7 Hemoglobin A1C (POCT) (%) Date Value 11/10/2023 6.9 ) Fariba Corrigan LPN 05/27/2024 8:25 AM Signed Phoned patient and has no voicemail set up, try again later. Alejandra Montalvo LPN 05/30/2024 2:06 PM Signed Attempted to reach patient with no answer and unable to leave a message due to voice mailbox has not been set up. Alejandra Montalvo LPN 06/06/2024 9:47 AM Signed My Chart message sent regarding results. Allergies As of Date: 05/26/2024 (No Known Allergies) Date Reviewed: 05/25/2024 Reviewed by: Kenzie Curtis LPN - Fully Assessed Reason for Visit: Results [95] Visit Diagnosis:Type 2 diabetes mellitus with hyperglycemia, with long-term current use of insulin (HCC) [E11.65, Z79.4] Comment:Resume Levemir. Work with Rossy Martinez to get better controlled. Order(s):ferrous sulfate 325 mg (65 mg iron) tabletTake 1 tablet by mouth every other day.Disp: 30 tabletRfl: 0 insulin glargine (BASAGLAR KWIKPEN U-100 INSULIN) 100 unit/mL (3 mL)Inject 10 Units subcutaneously daily at bedtime. Will adjust insulin orders as needed and send new RX when dose adjustedDisp: 3 mLRfl: 3 Prescriptions as of 06/12/2024 - ferrous sulfate 325 mg (65 mg iron) tablet Take 1 tablet by mouth every other day. - insulin glargine (BASAGLAR KWIKPEN U-100 INSULIN) 100 unit/mL (3 mL) Inject 10 Units subcutaneously daily at bedtime. Will adjust insulin orders as needed and send new RX when dose adjusted - amitriptyline (ELAVIL) 50 mg tablet Take 1 tablet by mouth daily at bedtime. - pyridoxine, vitamin B6, (VITAMIN B-6) 50 mg tablet Take 1 tablet by mouth once daily. - dextrose 40 % gel Take 15 g by mouth as needed. - zinc sulfate 220 mg (50 mg zinc) capsule Take 1 capsule by mouth once daily for 7 doses. - polyethylene glycol 3350 17 gram packet Take 1 Packet by mouth once daily as needed for constipation. Dissolve dose in 4 - 8 ounces of liquid and take as directed. - acetaminophen (TYLENOL) 500 mg tablet Take 2 tablets by mouth every 8 hours as needed for pain. - sertraline (ZOLOFT) 100 mg tablet Take 100 mg by mouth daily at bedtime. - atorvastatin (LIPITOR) 80 mg tablet Take 1 tablet by mouth once daily. - lisinopril (ZESTRIL) 10 mg tablet Take 1 tablet by mouth once daily. - metoprolol tartrate, short acting, (LOPRESSOR) 25 mg tablet Take 1 tablet by mouth two times a day. - pantoprazole DR (PROTONIX) 40 mg tablet Take 1 tablet by mouth once daily. - pregabalin (LYRICA) 225 mg capsule Take 1 capsule by mouth three times a day for 180 days. - busPIRone (BUSPAR) 15 mg tablet Take 1 tablet by mouth three times a day. - ezetimibe (ZETIA) 10 mg tablet Take 1 tablet by mouth once daily. - Diaper,Brief, Adult,Disposable Change at least twice daily - amLODIPine (NORVASC) 5 mg tablet Take 1 tablet by mouth once daily. May also take 1 tablet once daily as needed (For BP over 150/95). - metFORMIN (GLUCOPHAGE) 1,000 mg tablet Take 1,000 mg by mouth two times a day with meals. - insulin aspart (NOVOLOG FLEXPEN U-100 INSULIN SUBCUTANEOUS) Inject 2 Units subcutaneously daily at bedtime. - multivit,calc,mins/iron/fo lic (THERA-M ORAL) Take 1 tablet by mouth daily at 6 am. - loperamide HCl (IMODIUM A-D) 2 mg tab Take 2 mg by mouth every 6 hours as needed (loose stool). Patient should start on March 28, 2024. - dulaglutide (TRULICITY) 1.5 mg/0.5 mL pen injector Inject 1.5 mg subcutaneously one time a week. - insulin aspart U-100 (NOVOLOG FLEXPEN U-100 INSULIN) 100 uni (more content not included)... Normal [facility] CBC W Auto Differential pane l (Bld)on 05-25-2024 Basophils (Bld) [#/Vol] 0.07 10*3/uL [facility] Basophils/100 WBC (Bld) 1.0 % [facility] Differential cell count method Nom (Bld) Auto [facility] Eosinophils (Bld) [#/Vol] 0.19 10*3/uL [facility] Eosinophils/100 WBC (Bld) 2.6 % [facility] Erythrocyte distribution width (RBC) [Ratio] 24.0 % High 11.5 - 15.0 % [facility] Hematocrit (Bld) [Volume fraction] 29.5 % Low 39.0 - 51.0 % [facility] Hemoglobin (d) [Mass/Vol] 10.2 g/dL Low 13.0 - 17.0 g/dL [facility] Immature granulocytes (Bld) [#/Vol] [facility] Immature granulocytes/100 WBC (Bld) 0.1 % [facility] Interpretation and review of laboratory results Abnormal [facility] Lymphocytes (Bld) [#/Vol] 2.37 10*3/uL [facility] Lymphocytes/100 WBC (Bld) 32.3 % [facility] MCH (RBC) [Entitic mass] 26.0 pg 26.0 - 34.0 pg [facility] MCHC (RBC) [Mass/Vol] 34.6 g/dL 30.5 - 36.0 g/dL [facility] MCV (RBC) [Entitic vol] 75.1 fL Low 80.0 - 100.0 fL [facility] Monocytes (Bld) [#/Vol] 0.39 10*3/uL [facility] Monocytes/100 WBC (Bld) 5.3 % [facility] Neutrophils (Bld) [#/Vol] 4.30 10*3/uL [facility] Neutrophils/100 WBC (Bld) 58.7 % [facility] Nucleated RBC (Bld) [#/Vol] 0.02 10*3/uL High [facility] Nucleated RBC/100 WBC (Bld) [Ratio] 0.3 % /100 WBC [facility] Platelet mean volume (Bld) [Entitic vol] 9.9 fL 9.0 - 12.7 fL [facility] Platelets (Bld) [#/Vol] 234 10*3/uL [facility] RBC (Bld) [#/Vol] 3.93 10*6/uL Low 4.20 - 6.0 0 m/uL [facility] WBC (Bld) [#/Vol] 7.33 10*3/uL [facility] Basophils (Bld) [#/Vol] 0.07 10*3/uL Normal <0.11 [facility] Comment on above: Order Comment: Speci men Type: BLOOD SPECIMENOrdering Facility: [facility] Address: [address] [place] [address] Performed By: #### 5 7021-8 ####[facility] LABCLIA [id number] [place] [address] [place] Basophils/100 WBC (Bld) 1.0 % Normal [facility] Comment on above: Order Comment: Speci men Type: BLOOD SPECIMENOrdering Facility: [facility] Address: [address] [place] [address] Performed By: #### 5 7021-8 ####[facility] LABCLIA [id number] [place] [address] [place] Differential cell count method Nom (Bld) Auto Normal [facility] Comment on above: Order Comment: Speci men Type: BLOOD SPECIMENOrdering Facility: [facility] Address: [address] [place] [address] Performed By: #### 5 7021-8 ####[facility] LABCLIA [id number] [place] [address] [place] Eosinophils (Bld) [#/Vol] 0.19 10*3/uL Normal <0.46 [facility] Comment on above: Order Comment: Speci men Type: BLOOD SPECIMENOrdering Facility: [facility] Address: [address] [place] [address] Performed By: #### 5 7021-8 ####[facility] LABCLIA [id number] [place] [address] [place] Eosinophils/100 WBC (Bld) 2.6 % Normal [facility] Comment on above: Order Comment: Speci men Type: BLOOD SPECIMENOrdering Facility: [facility] Address: [address] [place] [address] Performed By: #### 5 7021-8 ####[facility] LABCLIA [id number] [place] [address] [place] Erythrocyte distribution width (RBC) [Ratio] 24.0 % High 11.5-15.0 [facility] Comment on above: Order Comment: Speci men Type: BLOOD SPECIMENOrdering Facility: [facility] Address: [address] [place] [address] Performed By: #### 5 7021-8 ####[facility] LABCLIA [id number] [place] [address] [place] Hematocrit (Bld) [Volume fraction] 29.5 % Low 39.0-51.0 [facility] Comment on above: Order Comment: Speci men Type: BLOOD SPECIMENOrdering Facility: [facility] Address: [address] [place] [address] Performed By: #### 5 7021-8 ####[facility] LABCLIA [id number] [place] [address] [place] Hemoglobin (Bld) [Mass/Vol] 10.2 g/dL Low 13.0-17.0 [facility] Comment on above: Order Comment: Speci men Type: BLOOD SPECIMENOrdering Facility: [facility] Address: [address] [place] [address] Performed By: #### 5 7021-8 ####[facility] LABCLIA [id number] [place] [address] [place] Immature granulocytes (Bld) [#/Vol] 10*3/uL Normal <0.10 [facility] Comment on above: Order Comment: Speci men Type: BLOOD SPECIMENOrdering Facility: [facility] Address: [address] [place] [address] Performed By: #### 5 7021-8 ####[facility] LABCLIA [id number] [place] [address] [place] Immature granulocytes/100 WBC (Bld) 0.1 % Normal [facility] Comment on above: Order Comment: Speci men Type: BLOOD SPECIMENOrdering Facility: [facility] Address: [address] [place] [address] Performed By: #### 5 7021-8 ####[facility] LABCLIA [id number] [place] [address] [place] Lymphocytes (Bld) [#/Vol] 2.37 10*3/uL Normal 1.00-4.00 [facility] Comment on above: Order Comment: Speci men Type: BLOOD SPECIMENOrdering Facility: [facility] Address: [address] [place] [address] Performed By: #### 5 7021-8 ####[facility] LABIA [id number] [place] [address] [place] Lymphocytes/100 WBC (Bld) 32.3 % Normal [facility] Comment on above: Order Comment: Speci men Type: BLOOD SPECIMENOrdering Facility: [facility] Address: [address] [place] [address] Performed By: #### 5 7021-8 ####[facility] [id number] [place] [address] [place] MCH (RBC) [Entitic mass] 26.0 pg Normal 26.0-34.0 [facility] Comment on above: Order Comment: Speci men Type: BLOOD SPECIMENOrdering Facility: [facility] Address: [address] [place] [address] Performed By: #### 5 7021-8 ####[facility] [id number] [place] [address] [place] MCHC (RBC) [Mass/Vol] 34.6 g/dL Normal 30.5-36.0 [facility] Comment on above: Order Comment: Speci men Type: BLOOD SPECIMENOrdering Facility: [facility] Address: [address] [place] [address] Performed By: #### 5 7021-8 ####[facility] [id number] [place] [address] [place] MCV (RBC) [Entitic vol] 75.1 fL Low 80.0-100.0 [facility] Comment on above: Order Comment: Speci men Type: BLOOD SPECIMENOrdering Facility: [facility] Address: [address] [place] [address] Performed By: #### 5 7021-8 ####[facility] LABCLIA [id number] [place] [address] [place] Monocytes (Bld) [#/Vol] 0.39 10*3/uL Normal <0.87 [facility] Comment on above: Order Comment: Speci men Type: BLOOD SPECIMENOrdering Facility: [facility] Address: [address] [place] [address] Performed By: #### 5 7021-8 ####[facility] LABCLIA [id number] [place] [address] [place] Monocytes/100 WBC (Bld) 5.3 % Normal [facility] Comment on above: Order Comment: Speci men Type: BLOOD SPECIMENOrdering Facility: [facility] Address: [address] [place] [address] Performed By: #### 5 7021-8 ####[facility] LABCLIA [id number] [place] [address] [place] Neutrophils (Bld) [#/Vol] 4.30 10*3/uL Normal 1.45-7.50 [facility] Comment on above: Order Comment: Speci men Type: BLOOD SPECIMENOrdering Facility: [facility] Address: [address] [place] [address] Performed By: #### 5 7021-8 ####[facility] LABCLIA [id number] [place] [address] [place] Neutrophils/100 WBC (Bld) 58.7 % Normal [facility] Comment on above: Order Comment: Speci men Type: BLOOD SPECIMENOrdering Facility: [facility] Address: [address] [place] [address] Performed By: #### 5 7021-8 ####[facility] LABCLIA [id number] [place] [address] [place] Nucleated RBC (Bld) [#/Vol] 0.02 10*3/uL High <0.01 [facility] Comment on above: Order Comment: Speci men Type: BLOOD SPECIMENOrdering Facility: [facility] Address: [address] [place] [address] Performed By: #### 5 7021-8 ####[facility] LABCLIA [id number] [place] [address] [place] Nucleated RBC/100 WBC (Bld) [Ratio] 0.3 /100 WBC Normal [facility] Comment on above: Order Comment: Speci men Type: BLOOD SPECIMENOrdering Facility: [facility] Address: [address] [place] [address] Performed By: #### 5 7021-8 ####[facility] LABCLIA [id number] [place] [address] [place] Platelet mean volume (Bld) [Entitic vol] 9.9 fL Normal 9.0-12.7 [facility] Comment on above: Order Comment: Speci men Type: BLOOD SPECIMENOrdering Facility: [facility] Address: [address] [place] [address] Performed By: #### 5 7021-8 ####[facility] LABIA [id number] [place] [address] [place] Platelets (Bld) [#/Vol] 234 10*3/uL Normal 150-400 [facility] Comment on above: Order Comment: Speci men Type: BLOOD SPECIMENOrdering Facility: [facility] Address: [address] [place] [address] Performed By: #### 5 7021-8 ####[facility] LABCLIA [id number] [place] [address] [place] RBC (Bld) [#/Vol] 3.93 10*6/uL Low 4.20-6.00 [facility] Comment on above: Order Comment: Speci men Type: BLOOD SPECIMENOrdering Facility: [facility] Address: [address] [place] [address] Performed By: #### 5 7021-8 ####[facility] LABCLIA [id number] [place] [id number] [place] WBC (Bld) [#/Vol] 7.33 10*3/uL Normal 3.70-11.00 [facility] Comment on above: Order Comment: Speci men Type: BLOOD SPECIMENOrdering Facility: [facility] Address: [address] [place] [id number] Performed By: #### 5 7021-8 ####[facility] LABCLIA [id number] [place] [id number] [place] CNOVon 05-25-2024 CNOV Office Visit (INTMWS ) -- BERTA JARAMILLO ([id number]) 1965 M Date Time Provider Department 05/25/24 10:40 AM MIKE CANDELARIO INTMWS During your visit today, we recorded the following information about you: Pulse Respiration Blood pressure Weight 90/minute 16/minute 111/68 99.8 kg Mike Candelario APRN.UNATTENDED GROUND SENSOR SPECIALIST 05/25/2024 11:28 AM Signed SUBJECTIVE: Dilated Retinal Exam Never done DTaP,Tdap,Td Vaccine(1 - Tdap) Never done Shingrix Vaccine(1 of 2) Never done Colorectal Cancer Screening Never done Lung Cancer Screening Never done Hepatitis B Vaccine(2 of 3 - 19+ 3-dose series) due on 02/27/2022 LDL Cholesterol due on 01/30/2023 Diabetic Foot Exam due on 11/12/2023 Urine Albumin:Creatinine Ratio due on 05/19/2024 ANTONIETA Grangerip Tamiko Jaramillo is a 59 year old male. PMH significant for ACTIVE PROBLEM LIST Neuropathy Essential Hypertension Type 2 Diabetes Mellitus, With Long-Term Current Use of Insulin (Hcc) Depression, Recurrent (Hcc) Atopic Eczema Rheumatoid Arthritis, Involving Unspecified Site, Unspecified Whether Rheumatoid Factor Present (Hcc) Decubitus Ulcer of Left Buttock, Stage 3 (Hcc) Gastroesophageal Reflux Disease Without Esophagitis Hypercholesterolemia Benign Prostatic Hyperplasia With Urinary Hesitancy Nicotine use disorder, F17.2 Obesity, Class I, Bmi 30-34.9 Iron Deficiency Anemia Anxiety Status Post Amputation of Right Great Toe (Hcc) Vitamin B6 Deficiency (Non Anemic) Presents today noting increased abnormal sensation in both lower extremities, his whole leg consistent with neuropathy. Continues with pregabalin 225 mg three times per day. Review of med list shows that amitriptyline was discontinued. He had PVRs 2023. He reports limited walking due to neuropathy of both lower extremities. Has a power wheelchair. He is interested in seeing pain management provider for his neuropathy. He underwent amputation of toes on right foot, has noted decreased mood since then. He was taking amitriptyline but this was discontinued. Using CGM, Dexcom. DIABETES MELLITUS: Without excessive thirst or increased frequency of urination, chest pain or dyspnea , numbness, tingling or pain in extremities, new or unusual visual symptoms, low sugar/hypoglycemic reactions, weight loss/gain, lightheadedness/dizziness, and bowel changes/loose stools. Patient's last HgA1C was Hemoglobin A1C (%) Date Value 03/22/2024 7.1 09/13/2023 6.7 Hemoglobin A1C (POCT) (%) Date Value 11/10/2023 6.9 ) Hyperlipidemia. Mr. Jaramillo reports doing well on current therapy . His most recent lipid panels are: Cholesterol, Total (mg/dL) Date Value 01/30/2022 72 HDL Cholesterol (mg/dL) Date Value 01/30/2022 26 LDL Cholesterol (mg/dL) Date Value 01/30/2022 20 Triglyceride (mg/dL) Date Value 01/30/2022 129 HTN: Without report of headache, chest pain, palpitations, dyspnea, peripheral edema, orthopnea, fatigue, and PND. Last 14 Encounter BP Readings: Date: BP: 05/25/2024 111/68 04/14/2024 122/70 04/10/2024 118/70 03/30/2024 120/80 03/29/2024 112/64 03/28/2024 104/58 03/24/2024 121/77 03/24/2024 111/70 03/22/2024 114/63 02/18/2024 107/64 11/23/2023 94/56[Using BP Monitor[ 09/13/2023 122/68 06/16/2023 146/72 06/07/2023 101/60 GERD: no current complaints Review of Systems Constitutional: Negative. Musculoskeletal: Positive for arthralgias, back pain and gait problem. Neurological: Positive for numbness. Objective BP 111/68 Pulse 90 Resp 16 Wt 99.8 kg (220 lb) BMI 32.49 kg/m? Physical Exam Vitals and nursing note reviewed. Constitutional: Appearance: Normal appearance. HENT: Head: Normocephalic and atraumatic. Mouth/Throat: Lips: [place]. Mouth: Mucous membranes are moist. Dentition: Dental caries present. Pharynx: Oropharynx is clear. Tonsils: No tonsillar exudate. Comments: multiple tooth loss Eyes: Conjunctiva/sclera: Conjunctivae normal. Neck: Thyroid: No thyromegaly. Vascular: Normal carotid pulses. No JVD. Cardiovascular: Rate and Rhythm: Normal rate and regular rhythm. Heart sounds: Normal heart sounds. Pulmonary: Effort: Pulmonary effort is normal. Breath sounds: Normal breath sounds. Abdominal: General: Bowel sounds are normal. Palpations: Abdomen is soft. Feet: Comments: Nonpalpable DP right foot. Foot is warm. Skin: General: Skin is warm and dry. Neurological: General: No focal deficit present. Mental Status: He is alert. ALLERGIES No Known Allergies Medications dextrose 40 % gel Take 15 g by mouth as needed. (Patient taking differently: Take 15 g by mouth as needed (Hypogylcemia (below 30)).) polyethylene glycol 3350 17 gram packet Take 1 Packet by mouth once daily as needed for constipation. Dissolve dose in 4 - 8 ounces of liquid and take as directed. acetaminophen (TYLENOL) 500 mg tablet Afshin (more content not included)... Normal [facility] Loree 05-25-2024 [facility] Telephone (INTMWS) -- CLINTBERTA ([id number]) 1965 M Date Time Provider Department 05/25/24 RACHEL CHERY INTMWS During your visit today, we recorded the following information about you: Kenzie Curtis LPN 05/25/2024 11:26 AM Signed Patient was seen today by Mike BERTRAND and when leaving patient wanted to know if his next [address] Chery could be virtual appointment. Please advise if one or more appointments can be virtuals Rachel Chery MD 06/06/2024 12:55 AM Signed May alternate F2F OV with VV--cannot make all appointments VV Allergies As of Date: 05/25/2024 (No Known Allergies) Date Reviewed: 05/25/2024 Reviewed by: Kenzie Curtis LPN - Fully Assessed Reason for Visit: Appointment [[id number]] Prescriptions as of 06/06/2024 - ferrous sulfate 325 mg (65 mg iron) tablet Take 1 tablet by mouth every other day. - insulin glargine (BASAGLAR KWIKPEN U-100 INSULIN) 100 unit/mL (3 mL) Inject 10 Units subcutaneously daily at bedtime. Will adjust insulin orders as needed and send new RX when dose adjusted - amitriptyline (ELAVIL) 50 mg tablet Take 1 tablet by mouth daily at bedtime. - pyridoxine, vitamin B6, (VITAMIN B-6) 50 mg tablet Take 1 tablet by mouth once daily. - dextrose 40 % gel Take 15 g by mouth as needed. - zinc sulfate 220 mg (50 mg zinc) capsule Take 1 capsule by mouth once daily for 7 doses. - polyethylene glycol 3350 17 gram packet Take 1 Packet by mouth once daily as needed for constipation. Dissolve dose in 4 - 8 ounces of liquid and take as directed. - acetaminophen (TYLENOL) 500 mg tablet Take 2 tablets by mouth every 8 hours as needed for pain. - sertraline (ZOLOFT) 100 mg tablet Take 100 mg by mouth daily at bedtime. - atorvastatin (LIPITOR) 80 mg tablet Take 1 tablet by mouth once daily. - lisinopril (ZESTRIL) 10 mg tablet Take 1 tablet by mouth once daily. - metoprolol tartrate, short acting, (LOPRESSOR) 25 mg tablet Take 1 tablet by mouth two times a day. - pantoprazole DR (PROTONIX) 40 mg tablet Take 1 tablet by mouth once daily. - pregabalin (LYRICA) 225 mg capsule Take 1 capsule by mouth three times a day for 180 days. - busPIRone (BUSPAR) 15 mg tablet Take 1 tablet by mouth three times a day. - ezetimibe (ZETIA) 10 mg tablet Take 1 tablet by mouth once daily. - Diaper,Brief, Adult,Disposable Change at least twice daily - amLODIPine (NORVASC) 5 mg tablet Take 1 tablet by mouth once daily. May also take 1 tablet once daily as needed (For BP over 150/95). - metFORMIN (GLUCOPHAGE) 1,000 mg tablet Take 1,000 mg by mouth two times a day with meals. - insulin aspart (NOVOLOG FLEXPEN U-100 INSULIN SUBCUTANEOUS) Inject 2 Units subcutaneously daily at bedtime. - multivit,calc,mins/iron/fo lic (THERA-M ORAL) Take 1 tablet by mouth daily at 6 am. - loperamide HCl (IMODIUM A-D) 2 mg tab Take 2 mg by mouth every 6 hours as needed (loose stool). Patient should start on March 28, 2024. - dulaglutide (TRULICITY) 1.5 mg/0.5 mL pen injector Inject 1.5 mg subcutaneously one time a week. - insulin aspart U-100 (NOVOLOG FLEXPEN U-100 INSULIN) 100 unit/mL (3 mL) USE SLIDING SCALE ONLY. Sliding scale 150=0, 151-200-1 units, 201-250=2 units, 251-300=3 units, 301-350=4 units, 351-400=5 units based on pre meal blood sugar only as needed. - fluticasone (FLONASE) 50 mcg/actuation nasal spray Use 2 Sprays in each nostril once daily as needed for cold/allergy symptoms. Rinse mouth after use. - DUPIXENT SYRINGE 300 mg/2 mL injection Inject 300 mg subcutaneously every 2 weeks. - ascorbic acid, vitamin C, (VITAMIN C) 500 mg tablet Take 1 tablet by mouth once daily. - aspirin 81 mg cap Take 1 Each by mouth once daily. - Insulin Celeste, Disposable, (PEN NEEDLE) 32 gauge x 5/32 Inject 1 Each subcutaneously every 24 hours. Give with each insulin administration. - blood sugar diagnostic (BLOOD GLUCOSE TEST) test strip Test blood sugar(s) 4 times daily and PRN. Dx: Type 2 DM - Controlled E11.9 Insulin: Yes - Lancets lancets Test blood sugar(s) 4 times daily and prn. Dx: Type 2 DM - Controlled E11.9 Insulin: Yes - alcohol swabs Apply 1 Each to affected area four times daily. - Blood-Glucose Meter 1 Each four times daily. - Cholecalciferol, Vitamin D3, 125 mcg (5,000 unit) cap Take 1 tab daily with food. - melatonin 10 mg cap Take 1 capsule by mouth daily at bedtime. - Blood-Glucose Meter,Continuous (DEXCOM G7 COTTON WEIGHER) [facility] [employer] one chief innovation officer kit. USE FOR CONTINUOUS GLUCOSE MONITORING. MULTIPLE INSULIN INJECTIONS. E11.9 - Blood-Glucose Sensor (DEXCOM G7 SENSOR) kimberly CHANGE SENSOR EVERY 10 days. USE FOR CONTINUOUS GLUCOSE MONITORING. MULTIPLE INSULIN INJECTIONS. E11.9 - cyanocobalamin (VITAMIN B-12) 1,000 mcg tab Take 1 tablet by mouth once daily. - ondansetron orally disintegrating (ZOFRAN O (more content not included)... Normal [facility] LIPID PANEL, NONFASTINGon Cholesterol [Mass/Vol] 72 mg/dL Normal <200 Cl [facility] Comment on above: Order Comment: Speci men Type: BLOOD SPECIMENOrdering Facility: [facility] Address: [address] [place] [address] Result Comment: <200 mg/dL, Desirable 200-239 mg/dL, Borderline high >239 mg/dL, High Performed By: #### L IPNF ####[facility] LABCLIA [id number] [facility] [id number] [address] [place] HDL CHOLESTEROL, NF 28 mg/dL Low >39 [facility] Comment on above: Order Comment: Speci men Type: BLOOD SPECIMENOrdering Facility: [facility] Address: [address] [place] [address] Result Comment: 40-5 9 mg/dL, Acceptable >59 mg/dL, High: Negative risk factor for coronary heart disease <40 mg/dL, Low: Positive risk factor for coronary heart disease Performed By: #### L IPNF ####[facility] LABCLIA [id number] [address] OF [facility] LDL CHOLESTEROL, NF 21 mg/dL Normal <100 [facility] Comment on above: Order Comment: Speci men Type: BLOOD SPECIMENOrdering Facility: [facility] Address: [address] [place] [address] Result Comment: <100 mg/dL, Optimal 100-129 mg/dL, Near optimal/above optimal 130-159 mg/dL, Borderline high 160-189 mg/dL, High >189 mg/dL, Very high Secondary prevention optimal LDL Cholesterol levels are recommended to be < 70 mg/dL Performed By: #### L IPNF ####[facility] LABCLIA [id number] [address] LDL/HDL RATIO, NF 0.75 mg/dL Normal <2.54 [facility] Comment on above: Order Comment: [facility] Type: BLOOD SPECIMENOrdering Facility: [facility] Address: [address] [place] [address] Result Comment: Salvador tee: 1. National Cholesterol Education Program ATP III Guideline At-A-Glance Quick Desk Reference: National Heart, Lung, and Blood [place]. National Institutes of Health. 2001: NIH Publication No. 01-3305. 2. An International Atherosclerosis Society position paper: global recommendations for the management of dyslipidemia: executive summary, Atherosclerosis. 2014: 232(2):410-413. Performed By: #### L IPNF ####[facility] LABIA [id number] [address] [place] NON HDL CHOL, NF 44 mg/dL Normal <130 [facility] Comment on above: Order Comment: Martini men Type: BLOOD SPECIMENOrdering Facility: [facility] Address: [address] [place] [address] Result Comment: <130 mg/dL, Optimal 130-159 mg/dL, Near optimal/above optimal 160-189 mg/dL, Borderline high 190-219 mg/dL, High >219 mg/dL, Very high Secondary prevention optimal non HDL Cholesterol levels are recommended to be <100 mg/dL Performed By: #### L IPNF ####[facility] LABCLIA [id number] [address] [place] T CHOL/HDL RATIO NF 2.57 mg/dL Normal <5.10 [facility] Comment on above: Order Comment: Speci men Type: BLOOD SPECIMENOrdering Facility: [facility] Address: [address] [place] [address] Performed By: #### L IPNF ####[facility] LABIA [id number] [address] STATES OF [facility] TRIGLYCERIDES, NF 114 mg/dL Normal <150 [facility] Comment on above: Order Comment: Martini men Type: BLOOD SPECIMENOrdering Facility: [facility] Address: [address] [place] [address] Result Comment: <150 mg/dL, Normal 150-199 mg/dL, Borderline high 200-499 mg/dL, High >499 mg/dL, Very high Performed By: #### L IPNF ####[facility] LABIA [id number] [address] [place] VLDL CHOLESTEROL, NF 23 mg/dL Normal <30 [facility] Comment on above: Order Comment: David men Type: BLOOD SPECIMENOrdering Facility: [facility] Address: [address] [place] [address] Performed By: #### L IPNF ####[facility] LABIA [id number] [address] OF [place] 03-30-2024 LUCIE Telephone (HCSIND) -- BERTA JARAMILLO ([id number]) 1965 M Date Time Provider Department 03/30/24 JOHN CADENA HCSIND During your visit today, we recorded the following information about you: John Cadena, OT 03/30/2024 10:[address] Chery, I evaluated Mr. Jaramillo for occupational therapy services on 03/30/24. His fasting blood sugar at that time was 211. The staff at the Assisted Living Facility are assisting him with administering his insulin but I needed to let you know that he was out of our max 170 parameter. Thanks! ARTEMIO Lyons, OTR/Rachel Mcbride MD 04/07/2024 12:40 AM Signed Noted Allergies As of Date: 03/30/2024 (No Known Allergies) Date Reviewed: 03/29/2024 Reviewed by: Suzie Coleman, PT - Fully Assessed Reason for Visit: Home Care [4073] Prescriptions as of 04/07/2024 - pyridoxine, vitamin B6, (VITAMIN B-6) 50 mg tablet Take 1 tablet by mouth once daily. - dextrose 40 % gel Take 15 g by mouth as needed. - zinc sulfate 220 mg (50 mg zinc) capsule Take 1 capsule by mouth once daily for 7 doses. - folic acid 1 mg tablet Take 1 tablet by mouth once daily for 26 doses. - polyethylene glycol 3350 17 gram packet Take 1 Packet by mouth once daily as needed for constipation. Dissolve dose in 4 - 8 ounces of liquid and take as directed. - acetaminophen (TYLENOL) 500 mg tablet Take 2 tablets by mouth every 8 hours as needed for pain. - sertraline (ZOLOFT) 100 mg tablet Take 100 mg by mouth daily at bedtime. - amitriptyline (ELAVIL) 50 mg tablet Take 1 tablet by mouth daily at bedtime. - atorvastatin (LIPITOR) 80 mg tablet Take 1 tablet by mouth once daily. - lisinopril (ZESTRIL) 10 mg tablet Take 1 tablet by mouth once daily. - metoprolol tartrate, short acting, (LOPRESSOR) 25 mg tablet Take 1 tablet by mouth two times a day. - pantoprazole DR (PROTONIX) 40 mg tablet Take 1 tablet by mouth once daily. - pregabalin (LYRICA) 225 mg capsule Take 1 capsule by mouth three times a day for 180 days. - busPIRone (BUSPAR) 15 mg tablet Take 1 tablet by mouth three times a day. - ezetimibe (ZETIA) 10 mg tablet Take 1 tablet by mouth once daily. - Diaper,Brief, Adult,Disposable Change at least twice daily - amLODIPine (NORVASC) 5 mg tablet Take 1 tablet by mouth once daily. May also take 1 tablet once daily as needed (For BP over 150/95). - insulin glargine (BASAGLAR KWIKPEN U-100 INSULIN) 100 unit/mL (3 mL) Inject 10 Units subcutaneously daily at bedtime. Will adjust insulin orders as needed and send new RX when dose adjusted - metFORMIN (GLUCOPHAGE) 1,000 mg tablet Take 1,000 mg by mouth two times a day with meals. - insulin aspart human (NOVOLOG) 100 unit/ml soln Inject 4 Units subcutaneously two times a day. - insulin aspart (NOVOLOG FLEXPEN U-100 INSULIN SUBCUTANEOUS) Inject 2 Units subcutaneously daily at bedtime. - multivit,calc,mins/iron/fo lic (THERA-M ORAL) Take 1 tablet by mouth daily at 6 am. - loperamide HCl (IMODIUM A-D) 2 mg tab Take 2 mg by mouth every 6 hours as needed (loose stool). Patient should start on March 28, 2024. - dulaglutide (TRULICITY) 1.5 mg/0.5 mL pen injector Inject 1.5 mg subcutaneously one time a week. - insulin aspart U-100 (NOVOLOG FLEXPEN U-100 INSULIN) 100 unit/mL (3 mL) USE SLIDING SCALE ONLY. Sliding scale 150=0, 151-200-1 units, 201-250=2 units, 251-300=3 units, 301-350=4 units, 351-400=5 units based on pre meal blood sugar only as needed. - fluticasone (FLONASE) 50 mcg/actuation nasal spray Use 2 Sprays in each nostril once daily as needed for cold/allergy symptoms. Rinse mouth after use. - DUPIXENT SYRINGE 300 mg/2 mL injection Inject 300 mg subcutaneously every 2 weeks. - ascorbic acid, vitamin C, (VITAMIN C) 500 mg tablet Take 1 tablet by mouth once daily. - aspirin 81 mg cap Take 1 Each by mouth once daily. - Insulin Celeste, Disposable, (PEN NEEDLE) 32 gauge x 5/32 Inject 1 Each subcutaneously every 24 hours. Give with each insulin administration. - blood sugar diagnostic (BLOOD GLUCOSE TEST) test strip Test blood sugar(s) 4 times daily and PRN. Dx: Type 2 DM - Controlled E11.9 Insulin: Yes - Lancets lancets Test blood sugar(s) 4 times daily and prn. Dx: Type 2 DM - Controlled E11.9 Insulin: Yes - alcohol swabs Apply 1 Each to affected area four times daily. - Blood-Glucose Meter 1 Each four times daily. - Cholecalciferol, Vitamin D3, 125 mcg (5,000 unit) cap Take 1 tab daily with food. - melatonin 10 mg cap Take 1 capsule by mouth daily at bedtime. - Blood-Glucose Meter,Continuous (DEXCOM G7 COTTON WEIGHER) [facility] Dispense one chief innovation officer kit. USE FOR CONTINUOUS GLUCOSE MONITORING. MULTIPLE INSULIN INJECTIONS. E11.9 - Blood-Glucose Sensor (DEXCOM G7 SENSOR) kimberly CHANGE SENSOR EVERY 10 days. USE FOR CONTINUOUS GLUCOSE MONITORING. (more content not included)... Normal [facility] CASE MANAGEMon 03-27-2024 CASE MANAGEM HNO ID: [id number] Author: ANTONETTE IYER RN Service: ? Author Type: Registered Nurse Type: Care Mgt Progress Note Filed: 03/27/2024 10:27 Note Text: CARE MANAGEMENT DISCHARGE NOTE SERVICE DATE: March 27, 2024 SERVICE TIME: 10:10 AM Admission Date: 03/22/2024 LOS: 5 days Discharge Arrangement Discharge Arrangement: Home with Home Health Services Arranged Medical Services: Skilled Home Health Care Type: Home Health Agency Provider Name: [facility] [phone] Caregiver Assessment Caregiver is ready, willing and able to meet the patient's needs as recommended by the inter-professional team: No Caregiver needed Transportation Arrangements Transportation Arrangements: Car Date of Trip: 03/27/24 Time of Trip: 1000 Destination: Pts. Home Address Handoff Communication: Handoff to: Primary Care Physician Primary Care Physician Name/Phone: Rachel Chery MD, Crista Dinh DPM Additional Information: NA SIGNATURE: Antonette Iyer RN,BSN, ACM PATIENT NAME: Berta Jaramillo DATE: March 27, 2024 TIME: 10:10 AM CONTACT #: [phone] Normal [facility] CBC panel Auto (Bld)on 03-27 Erythrocyte distribution width (RBC) [Ratio] 23.3 % High 11.5-15.0 [facility] Comment on above: Order Comment: Speci men Type: BLOOD SPECIMENOrdering Facility: [facility] Address: [address] [place] [address] Performed By: #### 5 8410-2 ####[facility] LABORATORYCLIA [id number] [address] Hematocrit (Bld) [Volume fraction] 26.6 % Low 39.0-51.0 [facility] Comment on above: Order Comment: Speci men Type: BLOOD SPECIMENOrdering Facility: [facility] Address: [address] [place] [address] Performed By: #### 5 8410-2 ####[facility] LABORATORYCLIA [id number] [address] OF [place] Hemoglobin (Bld) [Mass/Vol] 9.2 g/dL Low 13.0-17.0 [facility] Comment on above: Order Comment: Speci men Type: BLOOD SPECIMENOrdering Facility: [facility] Address: [address] [place] [address] Performed By: #### 5 8410-2 ####[facility] LABORATORYCLIA [id number] [address] [facility] MCH (RBC) [Entitic mass] 23.5 pg Low 26.0-34.0 [facility] Comment on above: Order Comment: Speci men Type: BLOOD SPECIMENOrdering Facility: [facility] Address: [address] [place] [address] Performed By: #### 5 8410-2 ####[facility] LABORATORYCLIA [id number] [address] [place] MCHC (RBC) [Mass/Vol] 34.6 g/dL Normal 30.5-36.0 [facility] Comment on above: Order Comment: Speci men Type: BLOOD SPECIMENOrdering Facility: [facility] Address: [facility] [place] [address] Performed By: #### 5 8410-2 ####[facility] LABORATORYCLIA [id number] [address] [place] MCV (RBC) [Entitic vol] 67.9 fL Low 80.0-100.0 [facility] Comment on above: Order Comment: Speci men Type: BLOOD SPECIMENOrdering Facility: [facility] Address: [address] [place] [address] Performed By: #### 5 8410-2 ####[facility] LABORATORYCLIA [id number] [address] Nucleated RBC (Bld) [#/Vol] 0.05 10*3/uL High <0.01 [facility] Comment on above: Order Comment: Speci men Type: BLOOD SPECIMENOrdering Facility: [facility] Address: [address] [place] [address] Performed By: #### 5 8410-2 ####[facility] LABORATORYCLIA [id number] [address] Platelet mean volume (Bld) [Entitic vol] 9.5 fL Normal 9.0-12.7 [facility] Comment on above: Order Comment: Speci men Type: BLOOD SPECIMENOrdering Facility: [facility] Address: [address] [place] [address] Performed By: #### 5 8410-2 ####[facility] LABORATORYCLIA [id number] [address] [place] Platelets (Bld) [#/Vol] 295 10*3/uL Normal 150-400 [facility] Comment on above: Order Comment: Speci men Type: BLOOD SPECIMENOrdering Facility: [facility] Address: [address] [place] [address] Performed By: #### 5 8410-2 ####[facility] LABORATORYCLIA [id number] [address] [place] RBC (Bld) [#/Vol] 3.92 10*6/uL Low 4.20-6.00 [facility] Comment on above: Order Comment: Speci men Type: BLOOD SPECIMENOrdering Facility: [facility] Address: [address] [place], [place] [address] Performed By: #### 5 8410-2 ####[facility] LABORATORYCLIA [id number] [place] [id number] [facility] WBC (Bld) [#/Vol] 9.41 10*3/uL Normal 3.70-11.00 [facility] Comment on above: Order Comment: Speci men Type: BLOOD SPECIMENOrdering Facility: [facility] Address: [address] [place] [address] Performed By: #### 5 8410-2 ####[facility] LABORATORYCLIA [id number] [place] [id number] [facility] CONSULT PROGon 03-27-2024 CONSULT PROG HNO ID: [id number] Author: ZOYA VILLALPANDO DPM Service: Podiatry Author Type: Physician Type: Consult Progress Note Filed: 03/27/2024 11:06 Note Text: PODIATRY SURGICAL SERVICE CONSULT PROGRESS NOTE SERVICE DATE: 03/27/2024 SERVICE TIME: 9:40 AM Subjective INTERVAL HPI: Patient seen bedside resting comfortably. No new pedal complaints. Current Facility-Administered Medications Medication Dose Route Frequency NaCl 0.9% iv flush bag 20 mL INTRAVENOUS PRN dextrose 40 % 15 g 15 g ORAL PRN Or glucagon 1 mg injection 1 mg INTRAMUSCULAR PRN Or dextrose 10% iv bolus 12.5 g INTRAVENOUS PRN aluminum-magnesium hydroxide-simethicone 200-200-20 mg/5 mL 30 mL 30 mL ORAL q 6 H PRN pregabalin (LYRICA) cap(s) 225 mg 225 mg ORAL TID amLODIPine 5 mg tab(s) (NORVASC) 5 mg ORAL DAILY atorvastatin 80 mg tab(s) (LIPITOR) 80 mg ORAL DAILY ezetimibe 10 mg tab(s) (ZETIA) 10 mg ORAL DAILY lisinopril 10 mg tab(s) (ZESTRIL) 10 mg ORAL DAILY metoprolol tartrate (short acting) 25 mg tab(s) (LOPRESSOR) 25 mg ORAL BID sucralfate 1 g tab(s) (CARAFATE) 1 g ORAL QID amitriptyline 50 mg tab(s) (ELAVIL) 50 mg ORAL AT BEDTIME busPIRone (BUSPAR) tab(s) 15 mg 15 mg ORAL TID sertraline 100 mg tab(s) (ZOLOFT) 100 mg ORAL AT BEDTIME leflunomide 10 mg tab(s) (ARAVA) 10 mg ORAL DAILY tamsulosin 0.4 mg cap(s) (FLOMAX) 0.4 mg ORAL DAILY melatonin 9 mg tab(s) 9 mg ORAL AT BEDTIME oxyCODONE IR 5 mg tab(s) (ROXICODONE) 5 mg ORAL q 6 H PRN acetaminophen 1,000 mg tab(s) (TYLENOL) 1,000 mg ORAL q 8 H folic acid 1 mg tab(s) 1 mg ORAL DAILY iv contrast (radiology procedure) INTRAVENOUS DIRECTED PRN pantoprazole DR 40 mg tab(s) (PROTONIX) 40 mg ORAL BID AC (0600/1600) polyethylene glycol 3350 17 g packet 17 g ORAL DAILY nicotine 21 mg/24 hr 1 Patch (NICODERM) 1 Patch TRANSDERMAL DAILY And nicotine -- REMOVE patch OTHER DAILY And nicotine - verify patch OTHER q 8 H zinc sulfate 220 mg capsule(s) 220 mg ORAL DAILY ondansetron orally disintegrating 8 mg tab(s) (ZOFRAN ODT) 8 mg ORAL q 6 H PRN insulin glargine 24 Units pen (long acting) 24 Units SUBCUTANEOUS DAILY (8 AM) insulin lispro 8 Units injection (rapid acting) (ADMElog) 8 Units SUBCUTANEOUS w MEALS insulin lispro injection (rapid acting) (ADMElog) SUBCUTANEOUS w MEALS insulin lispro injection (rapid acting) (ADMElog) SUBCUTANEOUS AT BEDTIME Objective PHYSICAL EXAM: Physical Exam Performed: GENERAL: Alert, no distress, cooperative VASC:BL Foot DP / PT pulses +1/4. CFT less than 3 seconds to digits, skin temp warm to warm from proximal to distal BL Foot NEURO: BL light touch sensation diminished especially at toe level MSK: MS +4/5 B/L LE. RIGHT great toe amputation. DERM: Right hallux incision with sutures intact and no gapping or dehiscence. No signs of infection. BP 114/63 Pulse 84 Temp (Src) 97.3 (Oral) Resp 17 Ht 5' 9 (1.75m) Wt 223 lb 15.8 oz (101.6kg) SpO2 98% BMI 33.06 kg/(m2). O2 Therapy: Room Air DATA: Diagnostic tests reviewed for today's visit: Most recent labs and imaging results. CBC, Coags, BMP, Mg, Phos Recent Labs 03/27/24 0553 03/26/24 0640 03/25/24 0654 WBC 9.41 8.77 9.24 HB 9.2* 8.6* 8.3* HCT 26.6* 25.5* 24.5* PLT 295 283 259 NA 137 138 139 K 4.6 5.3* 4.8 CHLOR 101 102 102 CO2 28 29 29 BUN 11 10 10 CREAT 1.07 1.03 0.98 GLUC 241* 226* 162* CA 9.0 8.9 8.8 MG 1.8 1.8 1.8 P 3.0 2.5* 3.0 Impression/Recommendations SP RIGHT great toe amputation (DOS 03/24/24) RT great toe OM RT great toe cellulitis RT great toe ulcer, level of bone DMII with neuropathy Nicotine abuse Chart and labs reviewed WBC WNL CRP 0.7 Hgb A1c: 6.9 on 11/10/23. NEW A1c pending 03/23/24: wound swab right foot: rare corynebacterium striatum final result 03/24/24: wound swab right foot: preliminary 03/24/24: path right hallux: preliminary 03/23/24: B/L DVT: negative 03/23/24 MRI right foot: Ulceration/wound distal RIGHT great toe with underlying cellulitis and osteomyelitis of the great toe distal phalanx. New bone marrow edema in the RIGHT 2nd toe proximal phalanx possibly related to stress changes. Healing and/or healed RIGHT distal 5th metatarsal fracture with resolution of previously seen bone marrow edema. 03/23/24: XR right foot: Osteomyelitis of the 1st distal phalanx 03/24/24 right foot wound OR Cx: NGTD, prelim Dressing care: paint incision with betadine. Cover with xeroform, 4x4, kerlix haritha wrap. Nursing dressing orders in No dressing change today Weight bearing status: NWB right in surgical shoe and FWB left Rx post op shoe Pt is s/p right hallux amputation. Cultures and path results are still pending. Pt shows no signs of infection. 03/23/24 culture is final and shows rare corynebacterium striatum final result. Ok to DC per podiatry once abx sorted pending OR culture results DC instructions in Will continue to apply dressing changes and wound care while in house. S (more content not included)... [facility] CONSULT PROG HNO ID: [id number] Author: ERROL GONZALEZ MD Service: Infectious Disease Author Type: Physician Type: Consult Progress Note Filed: 03/27/2024 08:58 Note Text: INFECTIOUS DISEASE PROGRESS NOTE Patient Name: Berta Jaramillo INTERVAL HISTORY: No fevers. Status post amputation hallux. Nausea +. Pain is controlled. Patient Active Hospital Problem List: Right hallux osteomyelitis (HCC) Date Noted: 03/22/2024 Essential hypertension Date Noted: 01/30/2022 Type 2 diabetes mellitus, with long-term current use of insulin (HCC) Date Noted: 01/30/2022 Depression, recurrent (HCC) Date Noted: Rheumatoid arthritis, involving unspecified site, unspecified whether rheumatoid factor present (HCC) Date Noted: 10/22/2022 Gastroesophageal reflux disease without esophagitis Date Noted: Benign prostatic hyperplasia with urinary hesitancy Date Noted: Nicotine use disorder, F17.2 Date Noted: 03/22/2024 Obesity, Class I, BMI 30-34.9 Date Noted: 03/22/2024 Iron deficiency anemia Date Noted: 03/23/2024 Anxiety Date Noted: 03/24/2024 Status post amputation of right great toe (HCC) Date Noted: 03/26/2024 ASSESSMENT: Right hallux osteomyelitis Essential hypertension Type 2 diabetes mellitus, with long-term current use of insulin Depression, recurrent Rheumatoid arthritis, involving unspecified site, unspecified whether rheumatoid factor present Gastroesophageal reflux disease without esophagitis Benign prostatic hyperplasia with urinary hesitancy Nicotine use disorder Obesity, Class I, BMI 30-34.9 Tobacco use Obese PLAN: ?cefepime related lethargy, stopped Cefepime IV. Stop ciprofloxacin as operative cx remain negative. Status post amputation hallux Wound care Monitor temps and counts Follow BCx x 2 Continue wound care. Will follow podiatry surgery recommendations. Discharge planning off antibiotics MEDICATIONS: reviewed. Current Facility-Administered Medications Medication Dose Route Frequency NaCl 0.9% iv flush bag 20 mL INTRAVENOUS PRN dextrose 40 % 15 g 15 g ORAL PRN Or glucagon 1 mg injection 1 mg INTRAMUSCULAR PRN Or dextrose 10% iv bolus 12.5 g INTRAVENOUS PRN aluminum-magnesium hydroxide-simethicone 200-200-20 mg/5 mL 30 mL 30 mL ORAL q 6 H PRN pregabalin (LYRICA) cap(s) 225 mg 225 mg ORAL TID amLODIPine 5 mg tab(s) (NORVASC) 5 mg ORAL DAILY atorvastatin 80 mg tab(s) (LIPITOR) 80 mg ORAL DAILY ezetimibe 10 mg tab(s) (ZETIA) 10 mg ORAL DAILY lisinopril 10 mg tab(s) (ZESTRIL) 10 mg ORAL DAILY metoprolol tartrate (short acting) 25 mg tab(s) (LOPRESSOR) 25 mg ORAL BID sucralfate 1 g tab(s) (CARAFATE) 1 g ORAL QID amitriptyline 50 mg tab(s) (ELAVIL) 50 mg ORAL AT BEDTIME busPIRone (BUSPAR) tab(s) 15 mg 15 mg ORAL TID sertraline 100 mg tab(s) (ZOLOFT) 100 mg ORAL AT BEDTIME leflunomide 10 mg tab(s) (ARAVA) 10 mg ORAL DAILY tamsulosin 0.4 mg cap(s) (FLOMAX) 0.4 mg ORAL DAILY melatonin 9 mg tab(s) 9 mg ORAL AT BEDTIME oxyCODONE IR 5 mg tab(s) (ROXICODONE) 5 mg ORAL q 6 H PRN acetaminophen 1,000 mg tab(s) (TYLENOL) 1,000 mg ORAL q 8 H folic acid 1 mg tab(s) 1 mg ORAL DAILY iv contrast (radiology procedure) INTRAVENOUS DIRECTED PRN pantoprazole DR 40 mg tab(s) (PROTONIX) 40 mg ORAL BID AC (0600/1600) polyethylene glycol 3350 17 g packet 17 g ORAL DAILY nicotine 21 mg/24 hr 1 Patch (NICODERM) 1 Patch TRANSDERMAL DAILY And nicotine -- REMOVE patch OTHER DAILY And nicotine - verify patch OTHER q 8 H zinc sulfate 220 mg capsule(s) 220 mg ORAL DAILY ondansetron orally disintegrating 8 mg tab(s) (ZOFRAN ODT) 8 mg ORAL q 6 H PRN ciprofloxacin HCl 500 mg tab(s) (CIPRO) 500 mg ORAL q 12 H insulin glargine 24 Units pen (long acting) 24 Units SUBCUTANEOUS DAILY (8 AM) insulin lispro 8 Units injection (rapid acting) (ADMElog) 8 Units SUBCUTANEOUS w MEALS insulin lispro injection (rapid acting) (ADMElog) SUBCUTANEOUS w MEALS insulin lispro injection (rapid acting) (ADMElog) SUBCUTANEOUS AT BEDTIME PHYSICAL EXAM: Vital signs: BP 114/63 Pulse 84 Temp 36.3 ?C (97.3 ?F) (Oral) Resp 17 Ht 175.3 cm (5' 9) Wt 101.6 kg (223 lb 15.8 oz) SpO2 98% BMI 33.08 kg/m? Temp (72hrs), Av.4 ?C (97.6 ?F), Min:36.1 ?C (97 ?F), Max:36.6 ?C (97.9 ?F) General: alert, oriented, NAD Lungs: bilaterally clear to auscultation Heart: regular rate and rhythm Abdomen: soft, non tender, non distended, BS+ Extremities: Right hallux incision with sutures intact and no gapping or dehiscence. No signs of infection. No rashes No joint inflammation Neck supple Lines ok No CVAT Lines, Drains, and Airways Line Duration Peripheral 03/24/24 2300 [facility] Right Forearm 22 Gauge 2 days Labs: Recent Labs 03/27/24 0553 03/26/24 0640 03/25/24 0654 WBC 9.41 8.77 9.24 HB 9.2* 8.6* 8.3* PLT 295 283 259 NA 137 138 139 K 4.6 5.3* 4.8 CO2 28 29 29 BUN 11 10 10 CREAT 1.07 1.03 0.98 AST 12* 9* 11* ALT <5* <5* <5* TBI (more content not included)... Normal [facility] Comprehensive metabolic 2000 panelon 03-27-2024 Albumin [Mass/Vol] 3.6 g/dL Low 3.9-4.9 [facility] Comment on above: Order Comment: Speci men Type: BLOOD SPECIMENOrdering Facility: [facility] [address]: [address] [facility] [place] [address] Performed By: #### 2 4323-8, , 2776-05 ####[facility] LABORATORYCLIA [id number] [place] [address] [place] ALP [Catalytic activity/Vol] 118 U/L High 38-113 [facility] Comment on above: Order Comment: Speci men Type: BLOOD SPECIMENOrdering Facility: [facility] Address: [address] [place] [address] Performed By: #### 2 4323-8, , 2776-05 ####[facility] LABORATORYCLIA [id number] [place] [address] [place] ALT [Catalytic activity/Vol] U/L Low 10-54 [facility] Comment on above: Order Comment: Speci men Type: BLOOD SPECIMENOrdering Facility: [facility] Address: [address] [place] [address] Performed By: #### 2 432-8, , 2776-05 ####[facility] LABORATORYCLIA [id number] [place] [address] [place] Anion gap [Moles/Vol] 8 mmol/L Normal 8-15 [facility] Comment on above: Order Comment: Speci men Type: BLOOD SPECIMENOrdering Facility: [facility] Address: [address] [place] [address] Performed By: #### 2 4323-8, , 2776-05 ####[facility] LABORATORYCLIA [id number] [place] [address] [place] AST [Catalytic activity/Vol] 12 U/L Low 14-40 [facility] Comment on above: Order Comment: Speci men Type: BLOOD SPECIMENOrdering Facility: [facility] Address: [address] [place] [address] [place] [address] Performed By: #### 2 4323-8, , 2776-05 ####[facility] LABORATORYCLIA [id number] [place] [address] [place] Bilirubin [Mass/Vol] mg/dL Low 0.2-1.3 [facility] Comment on above: Order Comment: Speci men Type: BLOOD SPECIMENOrdering Facility: [facility] Address: [address] [place] [id number] Performed By: #### 2 4323-8, , 2776-05 ####[facility] LABORATORYCLIA [id number] [place] [address] [place] Calcium [Mass/Vol] 9.0 mg/dL Normal 8.5-10.2 [facility] Comment on above: Order Comment: Speci men Type: BLOOD SPECIMENOrdering Facility: [facility] Address: [address] [place] [address] Performed By: #### 2 4323-8, , 2776-05 ####[facility] LABORATORYCLIA [id number] [place] [address] [place] Chloride [Moles/Vol] 101 mmol/L Normal 98-107 [facility] Comment on above: Order Comment: Speci men Type: BLOOD SPECIMENOrdering Facility: [facility] Address: [address] [place] [address] Performed By: #### 2 4323-8, , 2776-05 ####[facility] LABORATORYCLIA [id number] [place] [address] [place] CO2 [Moles/Vol] 28 mmol/L Normal 22-30 [facility] Comment on above: Order Comment: Speci men Type: BLOOD SPECIMENOrdering Facility: [facility] Address: [address] [place] [address] Performed By: #### 2 4323-8, , 2776-05 ####[facility] LABORATORYCLIA [id number] [place] [address] [place] Creatinine [Mass/Vol] 1.07 mg/dL Normal 0.73-1.22 [facility] Comment on above: Order Comment: Speci men Type: BLOOD SPECIMENOrdering Facility: [facility] Address: [address] [place] [address] Performed By: #### 2 4323-8, , 2776-05 ####[facility] LABORATORYCLIA [id number] [place] [address] [facility] Creatinine and Glomerular filtration rate.predicted panel (S/P/Bld) 81 mL/min/1.73m??? Normal >=60 [facility] Comment on above: Order Comment: David ortega Type: BLOOD SPECIMENOrdering Facility: [facility] Address: [address] [place] [address] Result Comment: Marilyn mated Glomerular Filtration Rate (eGFR) is calculated using the 2020 CKD-EPI creatinine equation. This equation utilizes serum creatinine, sex, and age as parameters. The creatinine assay has traceable calibration to isotope dilution-mass spectrometry. Refer to KDIGO guidelines for clinical interpretation. In patients with unstable renal function, e.g. those with acute kidney injury, the eGFR may not accurately reflect actual GFR. Performed By: #### 2 4323-8, , 2776-05 ####V[facility] LABORATORYCLIA [id number] [place] [id number] [facility] Glucose [Mass/Vol] 241 mg/dL High 74-99 [facility] Comment on above: Order Comment: David ortega Type: BLOOD SPECIMENOrdering Facility: [facility] Address: [address] [place] [address] Result Comment: The [place] Diabetes [employer] (ADA) provides guidance for cutoff values for fasting glucose and random glucose. The ADA defines fasting as no caloric intake for at least 8 hours. Fasting plasma glucose results between 100 to 125 mg/dL indicate increased risk for diabetes (prediabetes). Fasting plasma glucose results greater than or equal to 126 mg/dL meet the criteria for diagnosis of diabetes. In the absence of unequivocal hyperglycemia, results should be confirmed by repeat testing. In a patient with classic symptoms of hyperglycemia or hyperglycemic crisis, random plasma glucose results greater than or equal to 200 mg/dL meet the criteria for diagnosis of diabetes. Reference: Standards of Medical Care in Diabetes 2016, [place] [employer]. Diabetes Care. 2016.39(Suppl 1). Performed By: #### 2 4323-8, 15324-9, 2776- ####[facility] LABORATORYCLIA [id number] [place] [address] [place] Potassium [Moles/Vol] 4.6 mmol/L Normal 3.7-5.1 [facility] Comment on above: Order Comment: Speci men Type: BLOOD SPECIMENOrdering Facility: [facility] Address: [address] [place] [address] Performed By: #### 2 4323-8, , 2776-05 ####[facility] LABORATORYCLIA [id number] [place] [address] [place] Protein [Mass/Vol] 7.1 g/dL Normal 6.3-8.0 [facility] Comment on above: Order Comment: Speci men Type: BLOOD SPECIMENOrdering Facility: [facility] Address: [address] [place] [address] Performed By: #### 2 4323-8, , 2776-05 ####[facility] LABORATORYCLIA [id number] [address] [place] Sodium [Moles/Vol] 137 mmol/L Normal 136-144 [facility] Comment on above: Order Comment: Speci men Type: BLOOD SPECIMENOrdering Facility: [facility] Address: [address] [place] [address] Performed By: #### 2 4323-8, , 2776-05 ####[facility] LABORATORYCLIA [id number] [place] [address] [place] Urea nitrogen [Mass/Vol] 11 mg/dL Normal 9-24 [facility] Comment on above: Order Comment: Speci men Type: BLOOD SPECIMENOrdering Facility: [facility] Address: [address] [place] [address] Performed By: #### 2 4323-8, , 2776-05 ####[facility] LABORATORYCLIA [id number] [place] [id number] [place] Magnesium SerPl-mCncon 03-27 Magnesium [Mass/Vol] 1.8 mg/dL Normal 1.7-2.3 [facility] Comment on above: Order Comment: Speci men Type: BLOOD SPECIMENOrdering Facility: [facility] Address: [address] [place], [place] [address] [address] Performed By: #### 2 4323-8, 27503-5, 2777-1 ####[facility] LABORATORYCLIA [id number] [place] [address] [place] Phosphate SerPl-mCncon 03-27 Phosphate [Mass/Vol] 3.0 mg/dL Normal 2.7-4.8 [facility] Comment on above: Order Comment: Speci men Type: BLOOD SPECIMENOrdering Facility: [facility] Address: [facility] [place] [address] Performed By: #### 2 4323-8, 23858-5, 2777-1 ####[facility] LABORATORYCLIA [id number] [place] [address] [place] CBC panel Auto (Bld)on 03-26 Erythrocyte distribution width (RBC) [Ratio] 22.7 % High 11.5-15.0 [facility] Comment on above: Order Comment: Speci men Type: BLOOD SPECIMENOrdering Facility: [facility] Address: [address] [place] [address] Performed By: #### 5 8410-2 ####[facility] LABORATORYCLIA [id number] [address] [place] Hematocrit (Bld) [Volume fraction] 25.5 % Low 39.0-51.0 [facility] Comment on above: Order Comment: Speci men Type: BLOOD SPECIMENOrdering Facility: [facility] Address: [address] [place] [address] Performed By: #### 5 8410-2 ####[facility] LABORATORYCLIA [id number] [place] [id number] [place] Hemoglobin (Bld) [Mass/Vol] 8.6 g/dL Low 13.0-17.0 [facility] Comment on above: Order Comment: Speci men Type: BLOOD SPECIMENOrdering Facility: [facility] Address: [address] [place] [address] Performed By: #### 5 8410-2 ####[facility] LABORATORYCLIA [id number] [address] MCH (RBC) [Entitic mass] 23.2 pg Low 26.0-34.0 [facility] Comment on above: Order Comment: Speci men Type: BLOOD SPECIMENOrdering Facility: [facility] Address: [address] [place] [address] Performed By: #### 5 8410-2 ####[facility] LABORATORYCLIA [id number] [address] [place] MCHC (RBC) [Mass/Vol] 33.7 g/dL Normal 30.5-36.0 [facility] Comment on above: Order Comment: Speci men Type: BLOOD SPECIMENOrdering Facility: [facility] Address: [address] [place] [address] Performed By: #### 5 8410-2 ####[facility] LABORATORYCLIA [id number] [address] MCV (RBC) [Entitic vol] 68.7 fL Low 80.0-100.0 [facility] Comment on above: Order Comment: Speci men Type: BLOOD SPECIMENOrdering Facility: [facility] Address: [address] [place] [address] Performed By: #### 5 8410-2 ####[facility] LABORATORYCLIA [id number] [address] Nucleated RBC (Bld) [#/Vol] 0.03 10*3/uL High <0.01 [facility] Comment on above: Order Comment: Speci men Type: BLOOD SPECIMENOrdering Facility: [facility] Address: [address] [place] [address] Performed By: #### 5 8410-2 ####[facility] LABORATORYCLIA [id number] [address] Platelet mean volume (Bld) [Entitic vol] 9.6 fL Normal 9.0-12.7 [facility] Comment on above: Order Comment: Speci men Type: BLOOD SPECIMENOrdering Facility: [facility] Address: [address] [place] [address] Performed By: #### 5 8410-2 ####[facility] LABORATORYCLIA [id number] [place] [address] [facility] [place] Platelets (Bld) [#/Vol] 283 10*3/uL Normal 150-400 [facility] Comment on above: Order Comment: Speci men Type: BLOOD SPECIMENOrdering Facility: [facility] Address: [address] [place] [address] Performed By: #### 5 8410-2 ####[facility] LABORATORYCLIA [id number] [address] RBC (Bld) [#/Vol] 3.71 10*6/uL Low 4.20-6.00 [facility] Comment on above: Order Comment: Speci men Type: BLOOD SPECIMENOrdering Facility: [facility] Address: [address] [place] [address] Performed By: #### 5 8410-2 ####[facility] LABORATORYCLIA [id number] [place] [id number] [facility] WBC (Bld) [#/Vol] 8.77 10*3/uL Normal 3.70-11.00 [facility] Comment on above: Order Comment: Speci men Type: BLOOD SPECIMENOrdering Facility: [facility] Address: [address] [place] [address] Performed By: #### 5 8410-2 ####V[facility] LABORATORYCLIA [id number] [place] [id number] [facility] CNDSon 03-26-2024 DS HNO ID: [id number] Author: QUINN CRISTNIA MD Service: Hospital Medicine Author Type: Physician Type: Discharge Summary Filed: 03/26/2024 17:19 Note Text: Addendum the patient had ride arrived to take him back to where he stays but they could not take him in his wheelchair both and he was concerned about doing this since he has an electric wheelchair and was concerned it would either be damaged or lost. He will be discharged in the morning but does not see a need to see physician unless there are complications. If that should happen just call Dr. Martin. Quinn Cristina MD March 26, 2024 5:19 PM DISCHARGE SUMMARY PATIENT NAME: Berta Jaramillo Code Status: Full Code Highest Readmission Risk Score: 29 The 30 day readmissions risk score is derived from an internally validated risk model which evaluates patient level characteristics, utilization history, medication orders and lab results up until the day of discharge. Patients with a score of 40 or above are considered highest risk for readmission. Specific patient level drivers will be listed at the bottom of the summary. Admission Information Admission Information ADMIT DATE: 03/22/2024 DISCHARGE DATE: 03/27/2024 MY DOCTORS AND MEDICAL TEAM: My Main Hospital Doctor: Quinn Cristina MD Primary Care Provider: Rachel Chery MD My Medical Team Members: Treatment Team: Attending Provider: Quinn Cristina MD Consulting: Errol Gonzalez MD Consulting: Seven Dinh DPM Consulting: Chari Block, PhD Consulting: Keny Kumar MD MY CONDITION AT DISCHARGE: Stable REASON I WAS IN THE HOSPITAL: Osteomyelitis of the right great toe SUMMARY OF WHAT HAPPENED WHILE I WAS IN THE HOSPITAL: Toe was amputated and treated with IV antibiotics with wound culture of the residual tissue being negative. Finish course of ciprofloxacin before discharge given dose of longer acting narcotic for pain before leaving and will be able to get oxycodone tomorrow afternoon but the long-acting should last until then. OTHER PROBLEMS/DIAGNOSIS: Principal Problem (Resolved): Right hallux osteomyelitis (HCC) Active Problems: Status post amputation of right great toe (HCC) Nicotine use disorder, F17.2 Essential hypertension Type 2 diabetes mellitus, with long-term current use of insulin (HCC) Obesity, Class I, BMI 30-34.9 Gastroesophageal reflux disease without esophagitis Iron deficiency anemia Rheumatoid arthritis, involving unspecified site, unspecified whether rheumatoid factor present (HCC) Benign prostatic hyperplasia with urinary hesitancy Depression, recurrent (HCC) Anxiety OPERATIONS PERFORMED WHILE IN THE HOSPITAL: Wound debridement with amputation right great toe IMPORTANT TEST/PROCEDURES: No procedures performed TEST RESULTS NOT AVAILABLE AT THIS TIME: No pending results Discharge Disposition Discharge Disposition: Custodial For Intermediate Care/Assisted Living With home health care Activity When You Leave the Hospital Resume pre-hospital activity Diet Instructions Resume your pre-hospital diet For Pain When You Leave the Hospital Use acetaminophen (Tylenol) as recommended on the bottle Follow Up Appointments Follow-Up Funeral Home Manager should call in 1-2 business days to arrange appointment in less than 2 weeks. When: In 1 week Patient/Parents to call for appointment?: Scheduled Amaris Naylor DPM [phone] [place] [phone] PCP Requested Referral Additional Provider to Provider Information: Disposition: [facility] Consultants: Dr. Naylor/Dr. Dinh for podiatry Dr. Gonazlez for psychology Dr. Gonzalez for infectious disease Dr. Kumar for GI PROCEDURES: 03/24 R great toe amputation at MTPJ IANDD R foot deep multiple areas level of bone sharp excisional nonselective debridement into level of bone (post debridement 2 x 6 x 1 cm) 03/24 EGD with esophageal dilation - Normal duodenal bulb, first portion of the duodenum and second portion of the duodenum. Biopsied. 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 Treated with argon plasma coagulation (APC). - Benign-appearing esophageal stenosis. Dilated. Anticoagulation: Prior to admission: Aspirin 81 mg Current: Heparin subcutaneous will hold and use IPG's until after surgery Smoking history: 43 pack years CODE STATUS: Full code ASSESSMENT/PLAN Reason for Admission: Osteomyelitis with Citrobacter and Pseudomonas right first MTPJ INTERVAL COURSE OF EVENTS: Postoperative day #2 1 unit of red cells for iron deficiency anemia hemoglobin 7.3 => 8.6 => 8.3 Ferrlecit IV giving double dose x 4 to complete the equivalent of 8 doses of routine Ferrlecit Stool Hemoccult ordered Outpatient follow-up with GI for colonoscopy ultrasound of the legs-negative DVT or superficial phlebitis bilateral inguinal adenopathy CTA for (more content not included)... [facility] 03-26-2024 [facility] Telephone (HCSIND) -- BERTA JARAMILLO ([id number]) 1965 M Date Time Provider Department 03/26/24 RACHEL CHERY During your visit today, we recorded the following information about you: Amara Russo LPN 03/26/2024 4:38 PM Signed Date/Time: 03/26/2024 4:36 PM Spoke with Berta @ phone #: hospital number - Preferred # for contact: [phone] Have you received help from a home care company in the last 60 days? no Are you agreeable to [facility] services? yes What address will we be seeing you at? Berta Jaramillo [id number] [address] [facility] [address] Do you have any upcoming appointments or things we need to schedule around? no Do you have a teachable CG or can you manage your care independently? Yes patient able to wound care Have you received the flu shot? yes If so, when and where? 03/09 Allergies As of Date: 03/26/2024 (No Known Allergies) Date Reviewed: 03/26/2024 Reviewed by: Raiza Guy RN - Fully Assessed Reason for Visit: Home Care [4073] Cmt: Confirmation call Prescriptions as of 03/26/2024 - dextrose 40 % gel Take 15 g by mouth as needed. - nicotine (NICODERM) 21 mg/24 hr Apply 1 Patch as directed once daily. - zinc sulfate 220 mg (50 mg zinc) capsule Take 1 capsule by mouth once daily for 7 doses. - folic acid 1 mg tablet Take 1 tablet by mouth once daily for 26 doses. - polyethylene glycol 3350 17 gram packet Take 1 Packet by mouth once daily as needed for constipation. Dissolve dose in 4 - 8 ounces of liquid and take as directed. - acetaminophen (TYLENOL) 500 mg tablet Take 2 tablets by mouth every 8 hours as needed for pain. - nicotine (NICODERM CQ) 14 mg/24 hr Apply 1 Patch as directed every 24 hours for 14 days. Begin when 21 mg/day patches are completed - nicotine (NICODERM CQ) 7 mg/24 hr Apply 1 Patch as directed every 24 hours for 28 days. - oxyCODONE IR (ROXICODONE) 5 mg immediate release tablet Take 1 tablet by mouth every 6 hours as needed for pain for up to 5 days. - sertraline (ZOLOFT) 100 mg tablet Take 100 mg by mouth daily at bedtime. - amitriptyline (ELAVIL) 50 mg tablet Take 1 tablet by mouth daily at bedtime. - atorvastatin (LIPITOR) 80 mg tablet Take 1 tablet by mouth once daily. - lisinopril (ZESTRIL) 10 mg tablet Take 1 tablet by mouth once daily. - metoprolol tartrate, short acting, (LOPRESSOR) 25 mg tablet Take 1 tablet by mouth two times a day. - pantoprazole DR (PROTONIX) 40 mg tablet Take 1 tablet by mouth once daily. - pregabalin (LYRICA) 225 mg capsule Take 1 capsule by mouth three times a day for 180 days. - busPIRone (BUSPAR) 15 mg tablet Take 1 tablet by mouth three times a day. - ezetimibe (ZETIA) 10 mg tablet Take 1 tablet by mouth once daily. - Diaper,Brief, Adult,Disposable Change at least twice daily - amLODIPine (NORVASC) 5 mg tablet Take 1 tablet by mouth once daily. May also take 1 tablet once daily as needed (For BP over 150/95). - insulin glargine (BASAGLAR KWIKPEN U-100 INSULIN) 100 unit/mL (3 mL) Inject 10 Units subcutaneously daily at bedtime. Will adjust insulin orders as needed and send new RX when dose adjusted - metFORMIN (GLUCOPHAGE) 1,000 mg tablet Take 1,000 mg by mouth two times a day with meals. - insulin aspart human (NOVOLOG) 100 unit/ml soln Inject 4 Units subcutaneously two times a day. - insulin aspart (NOVOLOG FLEXPEN U-100 INSULIN SUBCUTANEOUS) Inject 2 Units subcutaneously daily at bedtime. - multivit,calc,mins/iron/fo lic (THERA-M ORAL) Take 1 tablet by mouth daily at 6 am. - loperamide HCl (IMODIUM A-D) 2 mg tab Take 2 mg by mouth every 6 hours as needed. - dulaglutide (TRULICITY) 1.5 mg/0.5 mL pen injector Inject 1.5 mg subcutaneously one time a week. - insulin aspart U-100 (NOVOLOG FLEXPEN U-100 INSULIN) 100 unit/mL (3 mL) USE SLIDING SCALE ONLY. Sliding scale 150=0, 151-200-1 units, 201-250=2 units, 251-300=3 units, 301-350=4 units, 351-400=5 units based on pre meal blood sugar only as needed. - fluticasone (FLONASE) 50 mcg/actuation nasal spray Use 2 Sprays in each nostril once daily as needed for cold/allergy symptoms. Rinse mouth after use. - DUPIXENT SYRINGE 300 mg/2 mL injection Inject 300 mg subcutaneously every 2 weeks. - ascorbic acid, vitamin C, (VITAMIN C) 500 mg tablet Take 1 tablet by mouth once daily. - aspirin 81 mg cap Take 1 Each by mouth once daily. - Insulin Celeste, Disposable, (PEN NEEDLE) 32 gauge x 5/32 Inject 1 Each subcutaneously every 24 hours. Give with each insulin administration. - blood sugar diagnostic (BLOOD GLUCOSE TEST) test strip Test blood sugar(s) 4 times daily and PRN. Dx: Type 2 DM - Controlled E11.9 Insulin: Yes - Lancets lancets Test blood sugar(s) 4 times daily and prn. Dx: Type 2 DM - Controlled E11.9 Insulin: Yes - alcohol swabs Apply 1 Each to affected area four time (more content not included)... [facility] Telephone (HCSIND) -- BERTA JARAMILLO ([id number]) 1965 M Date Time Provider Department 03/26/24 RACHEL CHERY During your visit today, we recorded the following information about you: Amara Russo LPN 03/26/2024 4:30 PM Signed Rachel Chery MD Please advise if you are agreeable to signing and following for [facility] services? Our Clinicians will be sending the Plan of Care to you for review and approval. They will reach out for any appropriate orders required to provide home care services for the patient. We are not able to initiate HHC services without a following provider. Home care clinicians may also obtain orders from [facility] Providers Thank you and we would be happy to answer any questions. Amara Russo LPN 03/26/2024 4:30 PM Nidhi Wynn, RN 03/27/2024 10:52 AM Signed Amara from [facility] calls and [facility] is asking if provider willing to follow patient with orders for half-way. Can reply through [facility] and this encounter. See Below. Thank you, APRIL Brennan Terri, APRN.ELZA 03/27/2024 11:16 AM Signed OK for [facility] Margarita Mireles LPN 03/28/2024 6:26 PM Signed Per Mike BERTRAND, Ok for [facility]. Margarita Mireles LPN Allergies As of Date: 03/26/2024 (No Known Allergies) Date Reviewed: 03/26/2024 Reviewed by: Jayashree Alvarenga RN - Fully Assessed Reason for Visit: Home Care [4073] Cmt: Md to follow Prescriptions as of 05/18/2024 - pyridoxine, vitamin B6, (VITAMIN B-6) 50 mg tablet Take 1 tablet by mouth once daily. - dextrose 40 % gel Take 15 g by mouth as needed. - zinc sulfate 220 mg (50 mg zinc) capsule Take 1 capsule by mouth once daily for 7 doses. - polyethylene glycol 3350 17 gram packet Take 1 Packet by mouth once daily as needed for constipation. Dissolve dose in 4 - 8 ounces of liquid and take as directed. - acetaminophen (TYLENOL) 500 mg tablet Take 2 tablets by mouth every 8 hours as needed for pain. - sertraline (ZOLOFT) 100 mg tablet Take 100 mg by mouth daily at bedtime. - amitriptyline (ELAVIL) 50 mg tablet Take 1 tablet by mouth daily at bedtime. - atorvastatin (LIPITOR) 80 mg tablet Take 1 tablet by mouth once daily. - lisinopril (ZESTRIL) 10 mg tablet Take 1 tablet by mouth once daily. - metoprolol tartrate, short acting, (LOPRESSOR) 25 mg tablet Take 1 tablet by mouth two times a day. - pantoprazole DR (PROTONIX) 40 mg tablet Take 1 tablet by mouth once daily. - pregabalin (LYRICA) 225 mg capsule Take 1 capsule by mouth three times a day for 180 days. - busPIRone (BUSPAR) 15 mg tablet Take 1 tablet by mouth three times a day. - ezetimibe (ZETIA) 10 mg tablet Take 1 tablet by mouth once daily. - Diaper,Brief, Adult,Disposable Change at least twice daily - amLODIPine (NORVASC) 5 mg tablet Take 1 tablet by mouth once daily. May also take 1 tablet once daily as needed (For BP over 150/95). - insulin glargine (BASAGLAR KWIKPEN U-100 INSULIN) 100 unit/mL (3 mL) Inject 10 Units subcutaneously daily at bedtime. Will adjust insulin orders as needed and send new RX when dose adjusted - metFORMIN (GLUCOPHAGE) 1,000 mg tablet Take 1,000 mg by mouth two times a day with meals. - insulin aspart (NOVOLOG FLEXPEN U-100 INSULIN SUBCUTANEOUS) Inject 2 Units subcutaneously daily at bedtime. - multivit,calc,mins/iron/fo lic (THERA-M ORAL) Take 1 tablet by mouth daily at 6 am. - loperamide HCl (IMODIUM A-D) 2 mg tab Take 2 mg by mouth every 6 hours as needed (loose stool). Patient should start on March 28, 2024. - dulaglutide (TRULICITY) 1.5 mg/0.5 mL pen injector Inject 1.5 mg subcutaneously one time a week. - insulin aspart U-100 (NOVOLOG FLEXPEN U-100 INSULIN) 100 unit/mL (3 mL) USE SLIDING SCALE ONLY. Sliding scale 150=0, 151-200-1 units, 201-250=2 units, 251-300=3 units, 301-350=4 units, 351-400=5 units based on pre meal blood sugar only as needed. - fluticasone (FLONASE) 50 mcg/actuation nasal spray Use 2 Sprays in each nostril once daily as needed for cold/allergy symptoms. Rinse mouth after use. - DUPIXENT SYRINGE 300 mg/2 mL injection Inject 300 mg subcutaneously every 2 weeks. - ascorbic acid, vitamin C, (VITAMIN C) 500 mg tablet Take 1 tablet by mouth once daily. - aspirin 81 mg cap Take 1 Each by mouth once daily. - Insulin Celeste, Disposable, (PEN NEEDLE) 32 gauge x 5/32 Inject 1 Each subcutaneously every 24 hours. Give with each insulin administration. - blood sugar diagnostic (BLOOD GLUCOSE TEST) test strip Test blood sugar(s) 4 times daily and PRN. Dx: Type 2 DM - Controlled E11.9 Insulin: Yes - Lancets lancets Test blood sugar(s) 4 times daily and prn. Dx: Type 2 DM - Controlled E11.9 Insulin: Yes - alcohol swabs Apply 1 Each to affected area four times daily. - Blood-Glucose Meter 1 Each four times daily. (more content not included)... Normal [facility] CONSULT PROGon 03-26-2024 CONSULT PROG HNO ID: [id number] Author: ERROL GONZALEZ MD Service: Infectious Disease Author Type: Physician Type: Consult Progress Note Filed: 03/27/2024 08:56 Note Text: INFECTIOUS DISEASE PROGRESS NOTE Patient Name: Berta Jaramillo INTERVAL HISTORY: No fevers. Status post amputation hallux. Nausea +. Pain is controlled. Patient Active Hospital Problem List: Right hallux osteomyelitis (HCC) Date Noted: 03/22/2024 Essential hypertension Date Noted: 01/30/2022 Type 2 diabetes mellitus, with long-term current use of insulin (HCC) Date Noted: 01/30/2022 Depression, recurrent (HCC) Date Noted: Rheumatoid arthritis, involving unspecified site, unspecified whether rheumatoid factor present (HCC) Date Noted: 10/22/2022 Gastroesophageal reflux disease without esophagitis Date Noted: Benign prostatic hyperplasia with urinary hesitancy Date Noted: Nicotine use disorder, F17.2 Date Noted: 03/22/2024 Obesity, Class I, BMI 30-34.9 Date Noted: 03/22/2024 Iron deficiency anemia Date Noted: 03/23/2024 Anxiety Date Noted: 03/24/2024 Status post amputation of right great toe (HCC) Date Noted: 03/26/2024 ASSESSMENT: Right hallux osteomyelitis Essential hypertension Type 2 diabetes mellitus, with long-term current use of insulin Depression, recurrent Rheumatoid arthritis, involving unspecified site, unspecified whether rheumatoid factor present Gastroesophageal reflux disease without esophagitis Benign prostatic hyperplasia with urinary hesitancy Nicotine use disorder Obesity, Class I, BMI 30-34.9 Tobacco use Obese PLAN: ?cefepime related lethargy, stopped Cefepime IV. Start PO Cipro x 1 to 2 days more then stop all abx if operative cx remain negative Status post amputation hallux Wound care Follow wound cx Will follow operative cx Monitor temps and counts Follow BCx x 2 Continue wound care. Will follow podiatry surgery recommendations. MEDICATIONS: reviewed. Current Facility-Administered Medications Medication Dose Route Frequency NaCl 0.9% iv flush bag 20 mL INTRAVENOUS PRN dextrose 40 % 15 g 15 g ORAL PRN Or glucagon 1 mg injection 1 mg INTRAMUSCULAR PRN Or dextrose 10% iv bolus 12.5 g INTRAVENOUS PRN aluminum-magnesium hydroxide-simethicone 200-200-20 mg/5 mL 30 mL 30 mL ORAL q 6 H PRN pregabalin (LYRICA) cap(s) 225 mg 225 mg ORAL TID amLODIPine 5 mg tab(s) (NORVASC) 5 mg ORAL DAILY atorvastatin 80 mg tab(s) (LIPITOR) 80 mg ORAL DAILY ezetimibe 10 mg tab(s) (ZETIA) 10 mg ORAL DAILY lisinopril 10 mg tab(s) (ZESTRIL) 10 mg ORAL DAILY metoprolol tartrate (short acting) 25 mg tab(s) (LOPRESSOR) 25 mg ORAL BID sucralfate 1 g tab(s) (CARAFATE) 1 g ORAL QID amitriptyline 50 mg tab(s) (ELAVIL) 50 mg ORAL AT BEDTIME busPIRone (BUSPAR) tab(s) 15 mg 15 mg ORAL TID sertraline 100 mg tab(s) (ZOLOFT) 100 mg ORAL AT BEDTIME leflunomide 10 mg tab(s) (ARAVA) 10 mg ORAL DAILY tamsulosin 0.4 mg cap(s) (FLOMAX) 0.4 mg ORAL DAILY melatonin 9 mg tab(s) 9 mg ORAL AT BEDTIME oxyCODONE IR 5 mg tab(s) (ROXICODONE) 5 mg ORAL q 6 H PRN acetaminophen 1,000 mg tab(s) (TYLENOL) 1,000 mg ORAL q 8 H folic acid 1 mg tab(s) 1 mg ORAL DAILY iv contrast (radiology procedure) INTRAVENOUS DIRECTED PRN pantoprazole DR 40 mg tab(s) (PROTONIX) 40 mg ORAL BID AC (0600/1600) polyethylene glycol 3350 17 g packet 17 g ORAL DAILY nicotine 21 mg/24 hr 1 Patch (NICODERM) 1 Patch TRANSDERMAL DAILY And nicotine -- REMOVE patch OTHER DAILY And nicotine - verify patch OTHER q 8 H zinc sulfate 220 mg capsule(s) 220 mg ORAL DAILY ondansetron orally disintegrating 8 mg tab(s) (ZOFRAN ODT) 8 mg ORAL q 6 H PRN ciprofloxacin HCl 500 mg tab(s) (CIPRO) 500 mg ORAL q 12 H insulin glargine 24 Units pen (long acting) 24 Units SUBCUTANEOUS DAILY (8 AM) insulin lispro 8 Units injection (rapid acting) (ADMElog) 8 Units SUBCUTANEOUS w MEALS insulin lispro injection (rapid acting) (ADMElog) SUBCUTANEOUS w MEALS insulin lispro injection (rapid acting) (ADMElog) SUBCUTANEOUS AT BEDTIME PHYSICAL EXAM: Vital signs: BP 114/63 Pulse 84 Temp 36.3 ?C (97.3 ?F) (Oral) Resp 17 Ht 175.3 cm (5' 9) Wt 101.6 kg (223 lb 15.8 oz) SpO2 98% BMI 33.08 kg/m? Temp (24hrs), Av.4 ?C (97.6 ?F), Min:36.3 ?C (97.3 ?F), Max:36.6 ?C (97.9 ?F) General: alert, oriented, NAD Lungs: bilaterally clear to auscultation Heart: regular rate and rhythm Abdomen: soft, non tender, non distended, BS+ Extremities: Right hallux incision with sutures intact and no gapping or dehiscence. No signs of infection. No rashes No joint inflammation Neck supple Lines ok No CVAT Lines, Drains, and Airways Line Duration Peripheral 03/24/24 2300 [facility] Right Forearm 22 Gauge 2 days Labs: Recent Labs 03/27/24 0553 03/26/24 0640 03/25/24 0654 WBC 9.41 8.77 9.24 HB 9.2* 8.6* 8.3* PLT 295 283 259 NA 137 138 139 K 4.6 5.3* 4.8 CO2 28 29 29 BUN 11 10 10 CREAT 1.07 1.03 0 (more content not included)... Normal [facility] CONSULT PROG HNO ID: [id number] Author: PILAR ANDREWS DPM Service: Podiatry Author Type: Physician Type: Consult Progress Note Filed: 03/26/2024 10:03 Note Text: PODIATRY SURGICAL SERVICE CONSULT PROGRESS NOTE SERVICE DATE: 03/26/2024 SERVICE TIME: 10:02 AM Subjective INTERVAL HPI: Patient seen bedside resting comfortably. No new pedal complaints. Current Facility-Administered Medications Medication Dose Route Frequency NaCl 0.9% iv flush bag 20 mL INTRAVENOUS PRN dextrose 40 % 15 g 15 g ORAL PRN Or glucagon 1 mg injection 1 mg INTRAMUSCULAR PRN Or dextrose 10% iv bolus 12.5 g INTRAVENOUS PRN aluminum-magnesium hydroxide-simethicone 200-200-20 mg/5 mL 30 mL 30 mL ORAL q 6 H PRN pregabalin (LYRICA) cap(s) 225 mg 225 mg ORAL TID amLODIPine 5 mg tab(s) (NORVASC) 5 mg ORAL DAILY atorvastatin 80 mg tab(s) (LIPITOR) 80 mg ORAL DAILY ezetimibe 10 mg tab(s) (ZETIA) 10 mg ORAL DAILY lisinopril 10 mg tab(s) (ZESTRIL) 10 mg ORAL DAILY metoprolol tartrate (short acting) 25 mg tab(s) (LOPRESSOR) 25 mg ORAL BID sucralfate 1 g tab(s) (CARAFATE) 1 g ORAL QID amitriptyline 50 mg tab(s) (ELAVIL) 50 mg ORAL AT BEDTIME busPIRone (BUSPAR) tab(s) 15 mg 15 mg ORAL TID sertraline 100 mg tab(s) (ZOLOFT) 100 mg ORAL AT BEDTIME leflunomide 10 mg tab(s) (ARAVA) 10 mg ORAL DAILY tamsulosin 0.4 mg cap(s) (FLOMAX) 0.4 mg ORAL DAILY melatonin 9 mg tab(s) 9 mg ORAL AT BEDTIME oxyCODONE IR 5 mg tab(s) (ROXICODONE) 5 mg ORAL q 6 H PRN acetaminophen 1,000 mg tab(s) (TYLENOL) 1,000 mg ORAL q 8 H ferric gluconate 250 mg in NaCl 0.9% 100 mL (FERRLECIT) 250 mg INTRAVENOUS DAILY AT 6 PM folic acid 1 mg tab(s) 1 mg ORAL DAILY iv contrast (radiology procedure) INTRAVENOUS DIRECTED PRN pantoprazole DR 40 mg tab(s) (PROTONIX) 40 mg ORAL BID AC (0600/1600) polyethylene glycol 3350 17 g packet 17 g ORAL DAILY nicotine 21 mg/24 hr 1 Patch (NICODERM) 1 Patch TRANSDERMAL DAILY And nicotine -- REMOVE patch OTHER DAILY And nicotine - verify patch OTHER q 8 H zinc sulfate 220 mg capsule(s) 220 mg ORAL DAILY insulin lispro injection (rapid acting) (ADMElog) SUBCUTANEOUS w MEALS insulin lispro injection (rapid acting) (ADMElog) SUBCUTANEOUS AT BEDTIME insulin glargine 21 Units pen (long acting) 21 Units SUBCUTANEOUS DAILY (8 AM) insulin lispro 7 Units injection (rapid acting) (ADMElog) 7 Units SUBCUTANEOUS w MEALS ondansetron orally disintegrating 8 mg tab(s) (ZOFRAN ODT) 8 mg ORAL q 6 H PRN ciprofloxacin HCl 500 mg tab(s) (CIPRO) 500 mg ORAL q 12 H Objective PHYSICAL EXAM: Physical Exam Performed: GENERAL: Alert, no distress, cooperative VASC:BL Foot DP / PT pulses +1/4. CFT less than 3 seconds to digits, skin temp warm to warm from proximal to distal BL Foot NEURO: BL light touch sensation diminished especially at toe level MSK: MS +4/5 B/L LE. RIGHT great toe amputation. DERM: Right hallux incision with sutures intact and no gapping or dehiscence. No signs of infection. BP 122/63 Pulse 87 Temp (Src) 97.7 (Oral) Resp 17 Ht 5' 9 (1.75m) Wt 220 lb 7.4 oz (100.0kg) SpO2 94% BMI 32.54 kg/(m2). O2 Therapy: Room Air DATA: Diagnostic tests reviewed for today's visit: Most recent labs and imaging results. CBC, Coags, BMP, Mg, Phos Recent Labs 03/26/24 0640 03/25/24 0654 03/24/24 0540 WBC 8.77 9.24 8.08 HB 8.6* 8.3* 8.6* HCT 25.5* 24.5* 25.0* PLT 283 259 259 NA 138 139 139 K 5.3* 4.8 4.7 CHLOR 102 102 103 CO2 29 29 29 BUN 10 10 9 CREAT 1.03 0.98 0.93 GLUC 226* 162* 142* CA 8.9 8.8 8.9 MG 1.8 1.8 1.9 P 2.5* 3.0 3.1 Impression/Recommendations SP RIGHT great toe amputation (DOS 03/24/24) RT great toe OM RT great toe cellulitis RT great toe ulcer, level of bone DMII with neuropathy Nicotine abuse Chart and labs reviewed WBC WNL CRP 0.7 Hgb A1c: 6.9 on 11/10/23. NEW A1c pending 03/23/24: wound swab right foot: preliminary 03/24/24: wound swab right foot: preliminary 03/24/24: path right hallux: preliminary 03/23/24: B/L DVT: negative 03/23/24 MRI right foot: Ulceration/wound distal RIGHT great toe with underlying cellulitis and osteomyelitis of the great toe distal phalanx. New bone marrow edema in the RIGHT 2nd toe proximal phalanx possibly related to stress changes. Healing and/or healed RIGHT distal 5th metatarsal fracture with resolution of previously seen bone marrow edema. 03/23/24: XR right foot: Osteomyelitis of the 1st distal phalanx 03/24/24 right foot wound OR Cx: NGTD, prelim Dressing care: paint incision with betadine. Cover with xeroform, 4x4, kerlix haritha wrap. Nursing dressing orders in No dressing change today Weight bearing status: NWB right in surgical shoe and FWB left Rx post op shoe Pt is s/p right hallux amputation. Cultures and path results are still pending. Pt shows no signs of infection. Ok to DC per podiatry once abx sorted pending OR culture results DC instructions in Will continue to apply dressing (more content not included)... Normal [facility] Comprehensive metabolic 2000 panelon 03-26-2024 Albumin [Mass/Vol] 3.4 g/dL Low 3.9-4.9 [facility] Comment on above: Order Comment: Specnorth ortega Type: BLOOD SPECIMENOrdering Facility: [facility] Address: [address] [place] [address] Performed By: #### 2 4323-8, , 2776-05 ####[facility] LABORATORYCLIA [id number] [address] [place] ALP [Catalytic activity/Vol] 116 U/L High 38-113 [facility] Comment on above: Order Comment: Speci men Type: BLOOD SPECIMENOrdering Facility: [facility] Address: [address] [place] [address] Performed By: #### 2 4323-8, , 2776-05 ####[facility] LABORATORYCLIA [id number] [place] [address] [place] ALT [Catalytic activity/Vol] U/L Low 10-54 [facility] Comment on above: Order Comment: Speci men Type: BLOOD SPECIMENOrdering Facility: [facility] Address: [address] [place] [address] Performed By: #### 2 4323-8, 35674-5, 2776-05 ####[facility] LABORATORYCLIA [id number] [place] [address] [place] Anion gap [Moles/Vol] 7 mmol/L Low 8-15 [facility] Comment on above: Order Comment: Speci men Type: BLOOD SPECIMENOrdering Facility: [facility] Address: [address] [place] [address] Performed By: #### 2 4323-8, , 2776-05 ####[facility] LABORATORYCLIA [id number] [address] AST [Catalytic activity/Vol] 9 U/L Low 14-40 [facility] Comment on above: Order Comment: Speci men Type: BLOOD SPECIMENOrdering Facility: [facility] Address: [address] [place] [address] Performed By: #### 2 4323-8, , 2776-05 ####[facility] LABORATORYCLIA [id number] [place] [address] [place] Bilirubin [Mass/Vol] mg/dL Low 0.2-1.3 [facility] Comment on above: Order Comment: Speci men Type: BLOOD SPECIMENOrdering Facility: [facility] Address: [address] [place] [id number] Performed By: #### 2 4323-8, , 2776-05 ####[facility] LABORATORYCLIA [id number] [place] [address] [facility] [place] Calcium [Mass/Vol] 8.9 mg/dL Normal 8.5-10.2 [facility] Comment on above: Order Comment: Speci men Type: BLOOD SPECIMENOrdering Facility: [facility] Address: [address] [place] [address] Performed By: #### 2 4323-8, 50799-4, 2776-05 ####[facility] LABORATORYCLIA [id number] [place] [address] [place] Chloride [Moles/Vol] 102 mmol/L Normal 98-107 [facility] Comment on above: Order Comment: Speci men Type: BLOOD SPECIMENOrdering Facility: [facility] Address: [address] [place] [address] Performed By: #### 2 4323-8, , 2776-05 ####[facility] LABORATORYCLIA [id number] [place] [address] [place] CO2 [Moles/Vol] 29 mmol/L Normal 22-30 [facility] Comment on above: Order Comment: Speci men Type: BLOOD SPECIMENOrdering Facility: [facility] Address: [address] [place] [address] Performed By: #### 2 4323-8, , 2776-05 ####[facility] LABORATORYCLIA [id number] [place] [address] [place] Creatinine [Mass/Vol] 1.03 mg/dL Normal 0.73-1.22 [facility] Comment on above: Order Comment: Speci men Type: BLOOD SPECIMENOrdering Facility: [facility] Address: [address] [place] [address] Performed By: #### 2 4323-8, , 2776-05 ####[facility] LABORATORYCLIA [id number] [address] Creatinine and Glomerular filtration rate.predicted panel (S/P/Bld) 85 mL/min/1.73m??? Normal >=60 [facility] Comment on above: Order Comment: Speci men Type: BLOOD SPECIMENOrdering Facility: [facility] Address: [address] [place] [address] Result Comment: Marilyn mated Glomerular Filtration Rate (eGFR) is calculated using the 2020 CKD-EPI creatinine equation. This equation utilizes serum creatinine, sex, and age as parameters. The creatinine assay has traceable calibration to isotope dilution-mass spectrometry. Refer to KDIGO guidelines for clinical interpretation. In patients with unstable renal function, e.g. those with acute kidney injury, the eGFR may not accurately reflect actual GFR. Performed By: #### 2 4323-8, , 2776-05 ####[facility] LABORATORYCLIA [id number] [place] [address] [place] Glucose [Mass/Vol] 226 mg/dL High 74-99 [facility] Comment on above: Order Comment: David ortega Type: BLOOD SPECIMENOrdering Facility: [facility] Address: [address] [place], [place] [address] Result Comment: The [place] [employer] (ADA) provides guidance for cutoff values for fasting glucose and random glucose. The ADA defines fasting as no caloric intake for at least 8 hours. Fasting plasma glucose results between 100 to 125 mg/dL indicate increased risk for diabetes (prediabetes). Fasting plasma glucose results greater than or equal to 126 mg/dL meet the criteria for diagnosis of diabetes. In the absence of unequivocal hyperglycemia, results should be confirmed by repeat testing. In a patient with classic symptoms of hyperglycemia or hyperglycemic crisis, random plasma glucose results greater than or equal to 200 mg/dL meet the criteria for diagnosis of diabetes. Reference: Standards of Medical Care in Diabetes 2016, [place] [employer]. Diabetes Care. 2016.39(Suppl 1). Performed By: #### 2 4323-8, , 2776-05 ####[facility] LABORATORYCLIA [id number] [place] [address] [place] Potassium [Moles/Vol] 5.3 mmol/L High 3.7-5.1 [facility] Comment on above: Order Comment: David ortega Type: BLOOD SPECIMENOrdering Facility: [facility] Address: [address] [place] [address] Performed By: #### 2 4323-8, , 2776-05 ####[facility] LABORATORYCLIA [id number] [place] [address] [place] Protein [Mass/Vol] 6.6 g/dL Normal 6.3-8.0 [facility] Comment on above: Order Comment: David ortega Type: BLOOD SPECIMENOrdering Facility: [facility] Address: [address] [place] [address] Performed By: #### 2 4323-8, , 2776-05 ####[facility] LABORATORYCLIA [id number] [place] [address] [place] Sodium [Moles/Vol] 138 mmol/L Normal 136-144 [facility] Comment on above: Order Comment: Speci men Type: BLOOD SPECIMENOrdering Facility: [facility] Address: [address] [place] [address] Performed By: #### 2 4323-8, , 2776-05 ####[facility] LABORATORYCLIA [id number] [place] [id number] [place] Urea nitrogen [Mass/Vol] 10 mg/dL Normal 9-24 [facility] Comment on above: Order Comment: Speci men Type: BLOOD SPECIMENOrdering Facility: [facility] Address: [address] [place] [address] Performed By: #### 2 4323-8, , 2776-05 ####[facility] LABORATORYCLIA [id number] [place] [address] [place] Magnesium SerPl-mCncon 03-26 Magnesium [Mass/Vol] 1.8 mg/dL Normal 1.7-2.3 [facility] Comment on above: Order Comment: Speci men Type: BLOOD SPECIMENOrdering Facility: [facility] Address: [address] [place] [address] Performed By: #### 2 4323-8, , 2776-05 ####[facility] LABORATORYCLIA [id number] [place] [address] [place] Phosphate SerPl-mCncon 03-26 Phosphate [Mass/Vol] 2.5 mg/dL Low 2.7-4.8 [facility] Comment on above: Order Comment: Speci men Type: BLOOD SPECIMENOrdering Facility: [facility] Address: [address] [place] [address] Performed By: #### 2 4323-8, , 2776-05 ####[facility] [id number] [place] [address] [facility] THERAPY NTon 03-26-2024 THERAPY NT HNO ID: [id number] Author: RONAL PATRICIO PT Service: Physical Therapy Author Type: Physical Therapist Type: Therapy (PT/OT/Speech/Resp) Filed: 03/26/2024 14:14 Note Text: -- Summary: PT Evaluation -- Physical Therapy Evaluation Summary SERVICE DATE: 03/26/2024 SERVICE TIME: 1314 to 1352 ROOM: [place] [address] PT 6 Clicks Score: 17 Total Joint Replacement Discharge Readiness: Cleared from Physical Therapy DISCHARGE RECOMMENDATIONS Home PT Recommended Discharge Disposition Comments: Pt currently functioning below baseline s/p R great toe amputation. Pt presents with decreased ROM, decreased strength, impaired activity tolerance, impaired balance, and overall decreased funtional mobility. Pt would benefit from continued skilled services post acute stay to address deficits Recommended Discharge Equipment: No equipment needs anticipated ASSESSMENT Response to Therapy Interventions: Good Participation in Activities, Improved Tolerance for Activity, On-Track to Achieve Discharge Goals, Pain Patient demonstrates safety throughout and is able to perform bed to chair transfers while adhereing to HWB on RLE. Patient appears near functional baseline however may require additional assist from [facility] staff while healing. Patient reports agreeable to ask for additional assistance and agreeable to use urinal for urination to decreased chance of incontinence or possibly getting RLE wet with urine upon home-going. Discussed importance of protecting RLE toe box while using electric wheelchair to ensure safe healing. Also discussed importance of RLE elevation intermittently due to possible swelling with RLE in dependent position for extended periods. Patient verbalizes understanding and agreement PRECAUTIONS Fall Risk, Weight Bearing Restrictions Right Lower Extremity Weight Bearing Status: Heel Weight Bearing (for transfers only, otherwise NWB) *RN alerted that patient is SBA/CGA for transfers while maintaining HWB, encouraged patient be allowed in electric W/C throughout the day in order to promote safe home-going, decrease LOS, and decrease chance of increased hospital complications such as pneumonia or DVT. CURRENT HOSPITAL COURSE s/p R great toe amputation Relevant Past Medical History: Depression, DM, [facility] Patient Lives With: Self/Alone, Facility Care, Other: See Comment Comments: Lives alone in [facility] facility Assistance Available: PRN Entry To Home: Elevator Number Of Stairs To Bed/Bath: 0 Tub/Shower Type: tub shower Laundry: in hallway, self Equipment Owned: Wheelchair- Power, Hospital Bed, Extended Tub Bench, Hand Held Shower, Grab Bars- Toilet, Grab Bars- Shower, Emergency Response System, Commode- Bedside PRIOR FUNCTIONAL LEVEL Within Functional Limits, Required Assistance Assistance Required With: Transportation, Cleaning Pt reports independence with ADLs and most IADLs in [facility]. Reports he is able to ask for increased assistance if needed and states he is willing to ask. Patient reports stand-pivot at baseline with RLE, able to use supervisor liquefaction appropriately and reports he spends most of his days in his electric wheelchair due to poor standing tolerance. Patient sleeps in hospital bed, denies falls, and reports sometimes incontinent when attempting toileting transfers. Facility provides med management and patient has transportation services available SUBJECTIVE Pt reports, I can transfer with my heel, no problem! Agreeable to PT, cleared with RN THERAPY DIAGNOSIS Reduced mobility-other TREATMENT INTERVENTIONS Evaluation, Therapeutic Activity (73835) Timed Code Treatment (minutes): 23 Skilled Treatment Time (minutes): 38 TRAINING AND EDUCATION PROVIDED Anatomy and Impact on Deficits, Assistive Device Use, Bed Mobility, Benefits of In-Hospital Mobility, Discharge Planning, Expected Functional Level, Falls Prevention, Gait Pattern, Reduction of Deviations, Role of Physical Therapy, Sitting Balance, Standing Balance, Transfers, Treatment Protocol THERAPEUTIC SKILLS USED Activity Dosing, Cues for Sequencing/Proper Technique for Activity, Cuing Tactile, Cuing Verbal, Cuing Visual, Management of Critical Lines, Tubes and/or Drains, Muscle Activation Facilitation, Physical Assist, Postural Alignment Correction FUNCTIONAL STATUS Bed Mobility Supine To Sit: Stand By Assistance, Additional Information Once seated EOB, patient able to use supervisor liquefaction to manage electric W/C to self and appropriate positioning for transfers without PT assist Sit to Supine: Additional Information OOB in electric wheelchair at session end Scooting: Stand By Assistance Transfers Sit To Stand: Additional Information, Contact Guard Assistance X 3 trials, 2 from EOB, 1 from electric W/C. Patient performs cautio (more content not included)... [facility] THERAPY NT HNO ID: [id number] Author: BOBBY ARCHER, OTJennifer/L Service: Occupational Therapy Author Type: Occupational Therapist Type: Therapy (PT/OT/Speech/Resp) Filed: 03/26/2024 15:00 Note Text: -- Summary: OT Eval -- Occupational Therapy Evaluation Summary SERVICE DATE: 03/26/2024 SERVICE TIME: 1044 to 1129 ROOM: [id number] OT 6 Clicks Score: 17 DISCHARGE RECOMMENDATIONS Home OT Recommended Discharge Disposition Comments: Addendum: pt rec was changed to home OT post clarification of NWB recent veterans service representative note vs heel WB per orders; Pt demo'd safe transfer with PT thus pt will be moved to priority to 2 with home going referral Anticipated Discharge Needs: Physical Assist at Home, Supervision at Home Physical Assist at Home for: Cleaning, Laundry, Meals, Transportation, Shopping Supervision at Home due to: Other: See Comment ASSESSMENT Pt typically indep at w/c level. Has relied on RLE to pivot <>electric chair. Pt presents with NWB RLE s/p great toe amputation. Pt has not pivotted on left foot for years, this sesson L foot went numb following 15 sec stance. Pt discussed cane use, rec pt use of RW at this time but also informed pt PT would be in to be assesses as well. PRECAUTIONS Fall Risk, Weight Bearing Restrictions Right Lower Extremity Weight Bearing Status: Heel Weight Bearing (for transfers only, otherwise NWB) CURRENT HOSPITAL COURSE s/p R great toe amputation Relevant Past Medical History: Depression, DM, [facility] Patient Lives With: Self/Alone, Facility Care, Other: See Comment Comments: Lives alone in [facility] facility Assistance Available: PRN Comments: states he lives in [facility]- but they do nothing for him except mild cleaning (pt chooses to cook his own food). Asked pt if he is paying for self care and he states yes. Entry To Home: Elevator Number Of Stairs To Bed/Bath: 0 Tub/Shower Type: tub shower Laundry: in hallway, self Equipment Owned: Wheelchair- Power, Hospital Bed, Extended Tub Bench, Hand Held Shower, Grab Bars- Toilet, Grab Bars- Shower, Emergency Response System, Commode- Bedside PRIOR FUNCTIONAL LEVEL Within Functional Limits, Required Assistance Assistance Required With: Transportation, Cleaning Pt reports independence with ADLs and most IADLs in [facility]. Reports he is able to ask for increased assistance if needed and states he is willing to ask. Patient reports stand-pivot at baseline with RLE, able to use supervisor liquefaction appropriately and reports he spends most of his days in his electric wheelchair due to poor standing tolerance. Patient sleeps in hospital bed, denies falls, and reports sometimes incontinent when attempting toileting transfers. Facility provides med management and patient has transportation services available Baseline Cognition: Oriented to self, Oriented to place, Oriented to time, Oriented to situation SUBJECTIVE agreeable to tx COGNITION Responsiveness: Alert, Awake Follows Commands: 3-step Commands THERAPY DIAGNOSIS Reduced mobility-other, Decreased activities of daily living (ADL), Muscle Weakness (generalized), Unsteadiness on feet, General symptoms and signs-other TREATMENT INTERVENTIONS Evaluation, Therapeutic Activity (53719), Self Skilled Nursing Management (29248) Timed Code Treatment (minutes): 29 Skilled Treatment Time (minutes): 45 TRAINING AND EDUCATION PROVIDED Assistive Device Use, Bed Mobility, Benefits of In-Hospital Mobility, Command Following, Coping Skills/Resiliency, Discharge Planning, Expected Functional Level, Functional Mobility Involving ADLs, Grooming Tasks, Health Literacy, Identification of Systems of Support, Insight into Deficits, Life Roles/Routines/Habits, Meaningful Hobby/Leisure Participation, Positioning, Precautions/Restrictions, Role of Occupational Therapy, Safety/Judgment, Self-Efficacy, Self-Expression/Advocacy, Sitting Balance to Improve Gillespie with ADLs/Self-Care, Standing Balance to Improve Gillespie with ADLs/Self-Care, Transfer - Sit to Stand, Treatment Protocol THERAPEUTIC SKILLS USED Activity Dosing, Cues for Sequencing/Proper Technique for Activity, Cuing Tactile, Cuing Verbal, Cuing Visual, Movement Facilitation, Physical Assist, Task Analysis Learning, Teach-Back for Education, Therapeutic Use of Self FUNCTIONAL STATUS /per clinical judgment Activities of Daily Living Assist Level Additional Information Feeding Independent Grooming Set Up, Additional Information seated EOB to use toothettes,mouth wash Bathing Upper Body Set Up, Additional Information seated Bathing Lower Body Minimal Assistance, Additional Information for buttocks Dressing Upper Body Set Up Dressing Lower Body Moderate Assistance Toileting Additional Information, Maximal Assistance use of urinal, rely on bedpan fo (more content not included)... Normal [facility] CBC panel Auto (Bld)on 03-25 Erythrocyte distribution width (RBC) [Ratio] 22.1 % High 11.5-15.0 [facility] Comment on above: Order Comment: David ortega Type: BLOOD SPECIMENOrdering Facility: [facility] Address: [address] [place] [address] Performed By: #### 5 8410-2 ####[facility] LABORATORYCLIA [id number] [place] [address] [place] Hematocrit (Bld) [Volume fraction] 24.5 % Low 39.0-51.0 [facility] Comment on above: Order Comment: Martini jordan Type: BLOOD SPECIMENOrdering Facility: [facility] Address: [address] [place] [address] Performed By: #### 5 8410-2 ####[facility] LABORATORYCLIA [id number] [place] [address] [place] Hemoglobin (Bld) [Mass/Vol] 8.3 g/dL Low 13.0-17.0 [facility] Comment on above: Order Comment: Speci men Type: BLOOD SPECIMENOrdering Facility: [facility] Address: [address] [place] [address] Performed By: #### 5 8410-2 ####[facility]ORATORYCLIA [id number] [address] MCH (RBC) [Entitic mass] 23.4 pg Low 26.0-34.0 [facility] Comment on above: Order Comment: Speci men Type: BLOOD SPECIMENOrdering Facility: [facility] Address: [address] [place] [address] Performed By: #### 5 8410-2 ####[facility] LABORATORYCLIA [id number] [address] MCHC (RBC) [Mass/Vol] 33.9 g/dL Normal 30.5-36.0 [facility] Comment on above: Order Comment: Speci men Type: BLOOD SPECIMENOrdering Facility: [facility] Address: [address] [place] [address] Performed By: #### 5 8410-2 ####[facility] LABORATORYCLIA [id number] [address] MCV (RBC) [Entitic vol] 69.0 fL Low 80.0-100.0 [facility] Comment on above: Order Comment: Speci men Type: BLOOD SPECIMENOrdering Facility: [facility] Address: [address] [place] [address] Performed By: #### 5 8410-2 ####[facility] LABORATORYCLIA [id number] [address] Nucleated RBC (Bld) [#/Vol] 10*3/uL Normal <0.01 [facility] Comment on above: Order Comment: Speci men Type: BLOOD SPECIMENOrdering Facility: [facility] Address: [address] [place] [address] Performed By: #### 5 8410-2 ####[facility] LABORATORYCLIA [id number] [address] Platelet mean volume (Bld) [Entitic vol] 9.2 fL Normal 9.0-12.7 [facility] Comment on above: Order Comment: Speci men Type: BLOOD SPECIMENOrdering Facility: [facility] Address: [address] [place] [address] Performed By: #### 5 8410-2 ####[facility] LABORATORYCLIA [id number] [place] [address] [facility] [place] Platelets (Bld) [#/Vol] 259 10*3/uL Normal 150-400 [facility] Comment on above: Order Comment: Speci men Type: BLOOD SPECIMENOrdering Facility: [facility] Address: [address] [place] [address] Performed By: #### 5 8410-2 ####[facility] LABORATORYCLIA [id number] [address] OF [place] RBC (Bld) [#/Vol] 3.55 10*6/uL Low 4.20-6.00 [facility] Comment on above: Order Comment: Speci men Type: BLOOD SPECIMENOrdering Facility: [facility] Address: [address] [place] [address] Performed By: #### 5 8410-2 ####[facility] LABORATORYCLIA [id number] [address] OF [place] WBC (Bld) [#/Vol] 9.24 10*3/uL Normal 3.70-11.00 [facility] Comment on above: Order Comment: Speci men Type: BLOOD SPECIMENOrdering Facility: [facility] Address: [address] [place] [address] Performed By: #### 5 8410-2 ####[facility] LABORATORYCLIA [id number] [address] CONSULT PROGon 03-25-2024 CONSULT PROG HNO ID: [id number] Author: ERROL GONZALEZ MD Service: Infectious Disease Author Type: Physician Type: Consult Progress Note Filed: 03/25/2024 14:05 Note Text: INFECTIOUS DISEASE PROGRESS NOTE Patient Name: Berta Jaramillo INTERVAL HISTORY: Encephalopathic and very sleepy on cefepime. No fevers. Status post amputation hallux. Nausea +. Pain is controlled. Patient Active Hospital Problem List: Right hallux osteomyelitis (HCC) Date Noted: 03/22/2024 Essential hypertension Date Noted: 01/30/2022 Type 2 diabetes mellitus, with long-term current use of insulin (HCC) Date Noted: 01/30/2022 Depression, recurrent (HCC) Date Noted: Rheumatoid arthritis, involving unspecified site, unspecified whether rheumatoid factor present (HCC) Date Noted: 10/22/2022 Gastroesophageal reflux disease without esophagitis Date Noted: Benign prostatic hyperplasia with urinary hesitancy Date Noted: Nicotine use disorder, F17.2 Date Noted: 03/22/2024 Obesity, Class I, BMI 30-34.9 Date Noted: 03/22/2024 Iron deficiency anemia Date Noted: 03/23/2024 Anxiety Date Noted: 03/24/2024 ASSESSMENT: Right hallux osteomyelitis Essential hypertension Type 2 diabetes mellitus, with long-term current use of insulin Depression, recurrent Rheumatoid arthritis, involving unspecified site, unspecified whether rheumatoid factor present Gastroesophageal reflux disease without esophagitis Benign prostatic hyperplasia with urinary hesitancy Nicotine use disorder Obesity, Class I, BMI 30-34.9 Tobacco use Obese PLAN: ?cefepime related lethargy, stop Cefepime IV. Start PO Cipro x 1 to 2 days more then stop all abx if operative cx remain negative Status post amputation hallux Wound care Follow wound cx Will follow operative cx Monitor temps and counts Follow BCx x 2 Continue wound care. Will follow podiatry surgery recommendations. MEDICATIONS: reviewed. Current Facility-Administered Medications Medication Dose Route Frequency NaCl 0.9% iv flush bag 20 mL INTRAVENOUS PRN dextrose 40 % 15 g 15 g ORAL PRN Or glucagon 1 mg injection 1 mg INTRAMUSCULAR PRN Or dextrose 10% iv bolus 12.5 g INTRAVENOUS PRN cefepime 2 g in D5W 100 mL Vial-Bag (MAXIPIME) 2 g INTRAVENOUS q 8 H aluminum-magnesium hydroxide-simethicone 200-200-20 mg/5 mL 30 mL 30 mL ORAL q 6 H PRN pregabalin (LYRICA) cap(s) 225 mg 225 mg ORAL TID amLODIPine 5 mg tab(s) (NORVASC) 5 mg ORAL DAILY atorvastatin 80 mg tab(s) (LIPITOR) 80 mg ORAL DAILY ezetimibe 10 mg tab(s) (ZETIA) 10 mg ORAL DAILY lisinopril 10 mg tab(s) (ZESTRIL) 10 mg ORAL DAILY metoprolol tartrate (short acting) 25 mg tab(s) (LOPRESSOR) 25 mg ORAL BID sucralfate 1 g tab(s) (CARAFATE) 1 g ORAL QID amitriptyline 50 mg tab(s) (ELAVIL) 50 mg ORAL AT BEDTIME busPIRone (BUSPAR) tab(s) 15 mg 15 mg ORAL TID sertraline 100 mg tab(s) (ZOLOFT) 100 mg ORAL AT BEDTIME leflunomide 10 mg tab(s) (ARAVA) 10 mg ORAL DAILY tamsulosin 0.4 mg cap(s) (FLOMAX) 0.4 mg ORAL DAILY melatonin 9 mg tab(s) 9 mg ORAL AT BEDTIME oxyCODONE IR 5 mg tab(s) (ROXICODONE) 5 mg ORAL q 6 H PRN acetaminophen 1,000 mg tab(s) (TYLENOL) 1,000 mg ORAL q 8 H ferric gluconate 250 mg in NaCl 0.9% 100 mL (FERRLECIT) 250 mg INTRAVENOUS DAILY AT 6 PM folic acid 1 mg tab(s) 1 mg ORAL DAILY iv contrast (radiology procedure) INTRAVENOUS DIRECTED PRN pantoprazole DR 40 mg tab(s) (PROTONIX) 40 mg ORAL BID AC (0600/1600) polyethylene glycol 3350 17 g packet 17 g ORAL DAILY nicotine 21 mg/24 hr 1 Patch (NICODERM) 1 Patch TRANSDERMAL DAILY And nicotine -- REMOVE patch OTHER DAILY And nicotine - verify patch OTHER q 8 H zinc sulfate 220 mg capsule(s) 220 mg ORAL DAILY insulin lispro injection (rapid acting) (ADMElog) SUBCUTANEOUS w MEALS insulin lispro injection (rapid acting) (ADMElog) SUBCUTANEOUS AT BEDTIME [START ON 03/26/2024] insulin glargine 21 Units pen (long acting) 21 Units SUBCUTANEOUS DAILY (8 AM) insulin lispro 7 Units injection (rapid acting) (ADMElog) 7 Units SUBCUTANEOUS w MEALS ondansetron orally disintegrating 8 mg tab(s) (ZOFRAN ODT) 8 mg ORAL q 6 H PRN PHYSICAL EXAM: Vital signs: BP 120/63 Pulse 98 Temp 36.5 ?C (97.7 ?F) (Oral) Resp 18 Ht 175.3 cm (5' 9) Wt 101.3 kg (223 lb 5.2 oz) SpO2 92% BMI 32.98 kg/m? Temp (24hrs), Av.4 ?C (97.5 ?F), Min:36.1 ?C (97 ?F), Max:36.6 ?C (97.9 ?F) General: alert, oriented, NAD Lungs: bilaterally clear to auscultation Heart: regular rate and rhythm Abdomen: soft, non tender, non distended, BS+ Extremities: Right hallux incision with sutures intact and no gapping or dehiscence. No signs of infection. No rashes No joint inflammation Neck supple Lines ok No CVAT Lines, Drains, and Airways Line Duration Peripheral 03/24/24 2300 [facility] Right Forearm 22 Gauge <1 day Labs: Recent Labs 03/25/24 0654 03/24/24 0540 03/23/24 0603 03/23/24 0602 03/22/24 1748 WBC 9.24 8.08 7 (more content not included)... Normal [facility] CONSULT PROG HNO ID: [id number] Author: PILAR [place] DPM Service: Podiatry Author Type: Physician Type: Consult Progress Note Filed: 03/25/2024 11:55 Note Text: PODIATRY SURGICAL SERVICE CONSULT PROGRESS NOTE SERVICE DATE: 03/25/2024 SERVICE TIME: 9:23 AM Subjective INTERVAL HPI: Patient seen bedside resting comfortably. No new pedal complaints. Pt is s/p right hallux amputation Current Facility-Administered Medications Medication Dose Route Frequency NaCl 0.9% iv flush bag 20 mL INTRAVENOUS PRN dextrose 40 % 15 g 15 g ORAL PRN Or glucagon 1 mg injection 1 mg INTRAMUSCULAR PRN Or dextrose 10% iv bolus 12.5 g INTRAVENOUS PRN cefepime 2 g in D5W 100 mL Vial-Bag (MAXIPIME) 2 g INTRAVENOUS q 8 H aluminum-magnesium hydroxide-simethicone 200-200-20 mg/5 mL 30 mL 30 mL ORAL q 6 H PRN pregabalin (LYRICA) cap(s) 225 mg 225 mg ORAL TID amLODIPine 5 mg tab(s) (NORVASC) 5 mg ORAL DAILY atorvastatin 80 mg tab(s) (LIPITOR) 80 mg ORAL DAILY ezetimibe 10 mg tab(s) (ZETIA) 10 mg ORAL DAILY lisinopril 10 mg tab(s) (ZESTRIL) 10 mg ORAL DAILY metoprolol tartrate (short acting) 25 mg tab(s) (LOPRESSOR) 25 mg ORAL BID sucralfate 1 g tab(s) (CARAFATE) 1 g ORAL QID amitriptyline 50 mg tab(s) (ELAVIL) 50 mg ORAL AT BEDTIME busPIRone (BUSPAR) tab(s) 15 mg 15 mg ORAL TID sertraline 100 mg tab(s) (ZOLOFT) 100 mg ORAL AT BEDTIME leflunomide 10 mg tab(s) (ARAVA) 10 mg ORAL DAILY tamsulosin 0.4 mg cap(s) (FLOMAX) 0.4 mg ORAL DAILY melatonin 9 mg tab(s) 9 mg ORAL AT BEDTIME oxyCODONE IR 5 mg tab(s) (ROXICODONE) 5 mg ORAL q 6 H PRN acetaminophen 1,000 mg tab(s) (TYLENOL) 1,000 mg ORAL q 8 H ferric gluconate 250 mg in NaCl 0.9% 100 mL (FERRLECIT) 250 mg INTRAVENOUS DAILY AT 6 PM folic acid 1 mg tab(s) 1 mg ORAL DAILY iv contrast (radiology procedure) INTRAVENOUS DIRECTED PRN pantoprazole DR 40 mg tab(s) (PROTONIX) 40 mg ORAL BID AC (0600/1600) polyethylene glycol 3350 17 g packet 17 g ORAL DAILY nicotine 21 mg/24 hr 1 Patch (NICODERM) 1 Patch TRANSDERMAL DAILY And nicotine -- REMOVE patch OTHER DAILY And nicotine - verify patch OTHER q 8 H zinc sulfate 220 mg capsule(s) 220 mg ORAL DAILY insulin lispro 6 Units injection (rapid acting) (ADMElog) 6 Units SUBCUTANEOUS w MEALS insulin glargine 18 Units pen (long acting) 18 Units SUBCUTANEOUS DAILY (8 AM) insulin lispro injection (rapid acting) (ADMElog) SUBCUTANEOUS w MEALS insulin lispro injection (rapid acting) (ADMElog) SUBCUTANEOUS AT BEDTIME Objective PHYSICAL EXAM: Physical Exam Performed: GENERAL: Alert, no distress, cooperative VASC:BL Foot DP / PT pulses +1/4. CFT less than 3 seconds to digits, skin temp warm to warm from proximal to distal BL Foot NEURO: BL light touch sensation diminished especially at toe level MSK: MS +4/5 B/L LE. RIGHT great toe amputation. DERM: Right hallux incision with sutures intact and no gapping or dehiscence. No signs of infection. BP 120/63 Pulse 98 Temp (Src) 97.7 (Oral) Resp 18 Ht 5' 9 (1.75m) Wt 223 lb 5.2 oz (101.3kg) SpO2 92% BMI 32.96 kg/(m2). O2 Therapy: Room Air DATA: Diagnostic tests reviewed for today's visit: Most recent labs and imaging results. CBC, Coags, BMP, Mg, Phos Recent Labs 03/25/24 0654 03/24/24 0540 03/23/24 0603 WBC 9.24 8.08 7.17 HB 8.3* 8.6* 7.3* HCT 24.5* 25.0* 21.6* PLT 259 259 266 NA 139 139 142 K 4.8 4.7 4.5 CHLOR 102 103 107 CO2 29 29 30 BUN 10 9 7* CREAT 0.98 0.93 0.91 GLUC 162* 142* 187* CA 8.8 8.9 8.5 MG 1.8 1.9 1.6* P 3.0 3.1 3.3 Impression/Recommendations ASSESSMENT AND PLAN SP RIGHT great toe amputation (DOS 03/24/24) RT great toe OM RT great toe cellulitis RT great toe ulcer, level of bone DMII with neuropathy Nicotine abuse Chart and labs reviewed WBC WNL CRP 0.7 Hgb A1c: 6.9 on 11/10/23. NEW A1c pending 03/23/24: wound swab right foot: preliminary 03/24/24: wound swab right foot: preliminary 03/24/24: path right hallux: preliminary 03/23/24: B/L DVT: negative 03/23/24 MRI right foot: Ulceration/wound distal RIGHT great toe with underlying cellulitis and osteomyelitis of the great toe distal phalanx. New bone marrow edema in the RIGHT 2nd toe proximal phalanx possibly related to stress changes. Healing and/or healed RIGHT distal 5th metatarsal fracture with resolution of previously seen bone marrow edema. 03/23/24: XR right foot: Osteomyelitis of the 1st distal phalanx 03/24/24 right foot wound OR Cx: NGTD, prelim Dressing care: paint incision with betadine. Cover with xeroform, 4x4, kerlix haritha wrap. Nursing dressing orders in Podiatry dressing change today Weight bearing status: NWB right in surgical shoe and FWB left Rx post op shoe Pt is s/p right hallux amputation. Cultures and path results are still pending. Pt shows no signs of infection. Ok to DC per podiatry once abx sorted pending OR culture results DC instructions in Will continue to apply dressing changes and (more content not included)... [facility] CONSULT PROG HNO ID: [id number] Author: MEGHANA AGUAYO MD Service: Gastroenterology Author Type: Physician Type: Consult Progress Note Filed: 03/25/2024 09:09 Note Text: GASTROENTEROLOGY INPATIENT PROGRESS NOTE Patient Name: Berta Jaramillo SERVICE DATE: March 25, 2024 SERVICE TIME: 8:47 AM ASSESSMENT: Iron deficiency anemia Weight loss Chronic constipation Gastric angiodysplasias- S/P APC Esophageal stricture -S/P dilation Right toe osteomyelitis- S/P R great toe amputation at MTPJ, IANDD R foot deep multiple areas level of bone, sharp excisional nonselective debridement into level of bone (post debridement 2 x 6 x 1 cm) DM 2/rheumatoid arthritis/hypertension PLAN: - continue to monitor for GI bleeding -continue Ferrlecit -continue Miralax - carb controlled diet -follow podiatry recs -discussed recommendation for colonoscopy but patient prefers to wait a few weeks to recover from surgery prior to attempting bowel prep. Risks including malignancy were discussed and he voiced understanding INTERVAL HPI: Sleeping comfortably. Awakens easily. Reports not sleeping much overnight. Denies abd pain. No nausea or vomiting. No hematochezia or melena. MEDICATIONS: Current Facility-Administered Medications Medication Dose Route Frequency NaCl 0.9% iv flush bag 20 mL INTRAVENOUS PRN dextrose 40 % 15 g 15 g ORAL PRN Or glucagon 1 mg injection 1 mg INTRAMUSCULAR PRN Or dextrose 10% iv bolus 12.5 g INTRAVENOUS PRN cefepime 2 g in D5W 100 mL Vial-Bag (MAXIPIME) 2 g INTRAVENOUS q 8 H aluminum-magnesium hydroxide-simethicone 200-200-20 mg/5 mL 30 mL 30 mL ORAL q 6 H PRN pregabalin (LYRICA) cap(s) 225 mg 225 mg ORAL TID amLODIPine 5 mg tab(s) (NORVASC) 5 mg ORAL DAILY atorvastatin 80 mg tab(s) (LIPITOR) 80 mg ORAL DAILY ezetimibe 10 mg tab(s) (ZETIA) 10 mg ORAL DAILY lisinopril 10 mg tab(s) (ZESTRIL) 10 mg ORAL DAILY metoprolol tartrate (short acting) 25 mg tab(s) (LOPRESSOR) 25 mg ORAL BID sucralfate 1 g tab(s) (CARAFATE) 1 g ORAL QID amitriptyline 50 mg tab(s) (ELAVIL) 50 mg ORAL AT BEDTIME busPIRone (BUSPAR) tab(s) 15 mg 15 mg ORAL TID sertraline 100 mg tab(s) (ZOLOFT) 100 mg ORAL AT BEDTIME leflunomide 10 mg tab(s) (ARAVA) 10 mg ORAL DAILY tamsulosin 0.4 mg cap(s) (FLOMAX) 0.4 mg ORAL DAILY melatonin 9 mg tab(s) 9 mg ORAL AT BEDTIME oxyCODONE IR 5 mg tab(s) (ROXICODONE) 5 mg ORAL q 6 H PRN acetaminophen 1,000 mg tab(s) (TYLENOL) 1,000 mg ORAL q 8 H ferric gluconate 250 mg in NaCl 0.9% 100 mL (FERRLECIT) 250 mg INTRAVENOUS DAILY AT 6 PM folic acid 1 mg tab(s) 1 mg ORAL DAILY iv contrast (radiology procedure) INTRAVENOUS DIRECTED PRN pantoprazole DR 40 mg tab(s) (PROTONIX) 40 mg ORAL BID AC (0600/1600) polyethylene glycol 3350 17 g packet 17 g ORAL DAILY nicotine 21 mg/24 hr 1 Patch (NICODERM) 1 Patch TRANSDERMAL DAILY And nicotine -- REMOVE patch OTHER DAILY And nicotine - verify patch OTHER q 8 H zinc sulfate 220 mg capsule(s) 220 mg ORAL DAILY insulin lispro 6 Units injection (rapid acting) (ADMElog) 6 Units SUBCUTANEOUS w MEALS insulin glargine 18 Units pen (long acting) 18 Units SUBCUTANEOUS DAILY (8 AM) insulin lispro injection (rapid acting) (ADMElog) SUBCUTANEOUS w MEALS insulin lispro injection (rapid acting) (ADMElog) SUBCUTANEOUS AT BEDTIME PHYSICAL EXAM: Patient Vitals for the past 24 hrs: BP Temp Temp src Pulse Resp SpO2 Weight 03/25/24 0751 120/63 36.5 ?C (97.7 ?F) Oral 98 18 92 % -- 03/25/24 0600 -- -- -- -- -- -- 101.3 kg (223 lb 5.2 oz) 03/25/24 0100 97/60 36.4 ?C (97.5 ?F) Oral 97 17 95 % -- 03/24/24 2143 103/58 -- -- 85 -- 93 % -- 03/24/24 2138 103/58 -- -- 85 -- -- -- 03/24/24 1428 123/67 36.4 ?C (97.5 ?F) Oral 93 14 97 % -- 03/24/24 1240 109/73 36.5 ?C (97.7 ?F) Axillary 90 14 94 % -- 03/24/24 1215 139/79 -- -- 88 9 95 % -- 03/24/24 1200 135/78 -- -- 88 10 94 % -- 03/24/24 1145 140/71 36.1 ?C (97 ?F) Temporal Art 91 9 96 % -- 03/24/24 0945 141/80 36.6 ?C (97.9 ?F) -- 97 10 97 % -- 03/24/24 0930 126/76 -- -- 93 8 98 % -- 03/24/24 0917 112/71 36.6 ?C (97.9 ?F) -- 91 -- 98 % -- Body mass index is 32.98 kg/m?. GENERAL: Alert, no distress, cooperative LUNGS: Lungs clear to auscultation. CARDIAC: RRR ABDOMEN: Abdomen soft, non-tender. BS normal. EXTREMITIES: Extremities without edema DATA: CBC, Coags, BMP, Mg, Phos Recent Labs 03/25/24 0654 03/24/24 0540 03/23/24 0603 WBC 9.24 8.08 7.17 HB 8.3* 8.6* 7.3* HCT 24.5* 25.0* 21.6* PLT 259 259 266 NA 139 139 142 K 4.8 4.7 4.5 CHLOR 102 103 107 CO2 29 29 30 BUN 10 9 7* CREAT 0.98 0.93 0.91 GLUC 162* 142* 187* CA 8.8 8.9 8.5 MG 1.8 1.9 1.6* P 3.0 3.1 3.3 Liver Function, Amylase, AND Lipase Recent Labs 03/25/24 0654 03/24/24 0540 03/23/24 0603 TPROT 6.5 6.6 5.9* ALB 3.3* 3.6* 3.3* ALT <5* <5* <5* AST 11* 9* 7* ALKPHOS 114* 115* 114* TBILI <0.2* 0.2 <0.2* MISC LABS Latest Ref Rng 03/22/2024 03/23/2024 (more content not included)... Normal [facility] Comprehensive metabolic 2000 panelon 03-25-2024 Albumin [Mass/Vol] 3.3 g/dL Low 3.9-4.9 [facility] Comment on above: Order Comment: Speci men Type: BLOOD SPECIMENOrdering Facility: [facility] Address: [address] [place] [address] Performed By: #### 2 4323-8, 27711-14, ####[facility] LABORATORYCLIA [id number] [address] OF [facility] ALP [Catalytic activity/Vol] 114 U/L High 38-113 [facility] Comment on above: Order Comment: Speci men Type: BLOOD SPECIMENOrdering Facility: [facility] Address: [address] [place] [address] Performed By: #### 2 4323-8, 2777, ####[facility] LABORATORYCLIA [id number] [address] ALT [Catalytic activity/Vol] U/L Low 10-54 [facility] Comment on above: Order Comment: Speci men Type: BLOOD SPECIMENOrdering Facility: [facility] Address: [address] [place] [address] Performed By: #### 2 4323-8, 27711-14, ####[facility] LABORATORYCLIA [id number] [place] [address] [place] Anion gap [Moles/Vol] 8 mmol/L Normal 8-15 [facility] Comment on above: Order Comment: Speci men Type: BLOOD SPECIMENOrdering Facility: [facility] Address: [address] [place] [address] Performed By: #### 2 4323-8, 27771, ####[facility] LABORATORYCLIA [id number] [place] [address] [place] AST [Catalytic activity/Vol] 11 U/L Low 14-40 [facility] Comment on above: Order Comment: Speci men Type: BLOOD SPECIMENOrdering Facility: [facility] Address: [address] [place] [address] Performed By: #### 2 4323-8, 2776-05, ####[facility] LABORATORYCLIA [id number] [place] [address] [place] Bilirubin [Mass/Vol] mg/dL Low 0.2-1.3 [facility] Comment on above: Order Comment: Speci men Type: BLOOD SPECIMENOrdering Facility: [facility] Address: [address] [place] [address] Performed By: #### 2 4323-8, 2776-05, ####[facility] LABORATORYCLIA [id number] [address] [place] Calcium [Mass/Vol] 8.8 mg/dL Normal 8.5-10.2 [facility] Comment on above: Order Comment: Speci men Type: BLOOD SPECIMENOrdering Facility: [facility] Address: [address] [place] [address] Performed By: #### 2 4323-8, 2776-05, ####[facility] LABORATORYCLIA [id number] [place] [id number] [place] Chloride [Moles/Vol] 102 mmol/L Normal 98-107 [facility] Comment on above: Order Comment: Speci men Type: BLOOD SPECIMENOrdering Facility: [facility] Address: [address] [place] [address] Performed By: #### 2 4323-8, 27711-14, ####[facility] LABORATORYCLIA [id number] [place] [address] [place] CO2 [Moles/Vol] 29 mmol/L Normal 22-30 [facility] Comment on above: Order Comment: Speci men Type: BLOOD SPECIMENOrdering Facility: [facility] Address: [address] [place] [address] [place] [address] Performed By: #### 2 4323-8, 27711-14, ####[facility] LABORATORYCLIA [id number] [place] [address] [place] Creatinine [Mass/Vol] 0.98 mg/dL Normal 0.73-1.22 [facility] Comment on above: Order Comment: Speci men Type: BLOOD SPECIMENOrdering Facility: [facility] Address: [address] [place] [address] Performed By: #### 2 4323-8, 2776-05, ####[facility] LABORATORYCLIA [id number] [place] [id number] [place] Creatinine and Glomerular filtration rate.predicted panel (S/P/Bld) 90 mL/min/1.73m??? Normal >=60 [facility] Comment on above: Order Comment: Speci men Type: BLOOD SPECIMENOrdering Facility: [facility] Address: [address] [place] [address] Result Comment: Marilyn mated Glomerular Filtration Rate (eGFR) is calculated using the 2020 CKD-EPI creatinine equation. This equation utilizes serum creatinine, sex, and age as parameters. The creatinine assay has traceable calibration to isotope dilution-mass spectrometry. Refer to KDIGO guidelines for clinical interpretation. In patients with unstable renal function, e.g. those with acute kidney injury, the eGFR may not accurately reflect actual GFR. Performed By: #### 2 4323-8, 2777, ####[facility] LABORATORYCLIA [id number] [place] [address] [place] Glucose [Mass/Vol] 162 mg/dL High 74-99 [facility] Comment on above: Order Comment: David ortega Type: BLOOD SPECIMENOrdering Facility: [facility] Address: [address] [place] [address] Result Comment: The [place] Diabetes [employer] (ADA) provides guidance for cutoff values for fasting glucose and random glucose. The ADA defines fasting as no caloric intake for at least 8 hours. Fasting plasma glucose results between 100 to 125 mg/dL indicate increased risk for diabetes (prediabetes). Fasting plasma glucose results greater than or equal to 126 mg/dL meet the criteria for diagnosis of diabetes. In the absence of unequivocal hyperglycemia, results should be confirmed by repeat testing. In a patient with classic symptoms of hyperglycemia or hyperglycemic crisis, random plasma glucose results greater than or equal to 200 mg/dL meet the criteria for diagnosis of diabetes. Reference: Standards of Medical Care in Diabetes 2016, [place] [employer]. Diabetes Care. 2016.39(Suppl 1). Performed By: #### 2 4323-8, 27711-14, ####[facility] LABORATORYCLIA [id number] [place] [address] [place] Potassium [Moles/Vol] 4.8 mmol/L Normal 3.7-5.1 [facility] Comment on above: Order Comment: David ortega Type: BLOOD SPECIMENOrdering Facility: [facility] Address: [address] [place] [address] Performed By: #### 2 4323-8, 27711-14, ####[facility] LABORATORYCLIA [id number] [place] [address] [place] Protein [Mass/Vol] 6.5 g/dL Normal 6.3-8.0 [facility] Comment on above: Order Comment: David ortega Type: BLOOD SPECIMENOrdering Facility: [facility] Address: [address] [place], [place] [address] Performed By: #### 2 4323-8, 27711-14, ####[facility] LABORATORYCLIA [id number] [place] [address] [place] Sodium [Moles/Vol] 139 mmol/L Normal 136-144 [facility] Comment on above: Order Comment: Martini men Type: BLOOD SPECIMENOrdering Facility: [facility] Address: [address] [place] [address] Performed By: #### 2 4323-8, 2777-1, 73653-2 ####[facility] LABORATORYCLIA [id number] [place] [address] [place] Urea nitrogen [Mass/Vol] 10 mg/dL Normal 9-24 [facility] Comment on above: Order Comment: Speci men Type: BLOOD SPECIMENOrdering Facility: [facility] Address: [address] [place] [address] Performed By: #### 2 4323-8, 2777-1, 56703-1 ####[facility] LABORATORYCLIA [id number] [place] [id number] [place] Magnesium SerPl-mCncon 03-25 Magnesium [Mass/Vol] 1.8 mg/dL Normal 1.7-2.3 [facility] Comment on above: Order Comment: Speci men Type: BLOOD SPECIMENOrdering Facility: [facility] Address: [address] [place] [address] Performed By: #### 2 4323-8, 2777-1, 35609-2 ####[facility] LABORATORYCLIA [id number] [place] [id number] [place] Phosphate SerPl-mCncon 03-25 Phosphate [Mass/Vol] 3.0 mg/dL Normal 2.7-4.8 [facility] Comment on above: Order Comment: Speci men Type: BLOOD SPECIMENOrdering Facility: [facility] Address: [address] [place] [address] Performed By: #### 2 4323-8, 2777-1, 30573-7 ####[facility] LABORATORYCLIA [id number] [place] [id number] [place] ANES POSTPROC EVALon 024 ANES POSTPROC EVAL HNO ID: [id number] Author: JINGESH HAHN MD Service: Anesthesiology Author Type: Anesthesiologist Type: Anesthesia Postprocedure Evaluation Filed: 03/24/2024 12:31 Note Text: POST ANESTHESIA EVALUATION NOTE : 1965 Procedure Summary Date: 03/24/24 Room / Location: [facility] OR / [facility] Anesthesia Start: 1045 Anesthesia Stop: 1136 Procedure: AMPUTATION GREAT TOE METATARSOPHALANGEAL JOINT (Right: Foot) Diagnosis: Osteomyelitis of right foot (HCC) (Osteomyelitis of right foot (HCC) [M86.9]) Surgeons: Seven Dinh DPM Responsible Provider: Jignesh Hahn MD Anesthesia Type: MAC ASA Status: 3 Anesthesia Type: MAC Last Vitals Vitals Value Taken Time BP 139/79 03/24/24 1215 Temp 36.1 ?C (97 ?F) 03/24/24 1145 Pulse 87 03/24/24 1225 Resp 7 03/24/24 1225 SpO2 95 % 03/24/24 1225 Vitals shown include unfiled device data. Post Anesthesia Patient Status Patient Evaluation: PACU. PACU/ICU Patient Condition: stable. Anticipated Disposition: phase 2 then home. Neurological Status: aware and responsive. Pulmonary Status: breathing comfortably on room air Airway Control: returned to baseline unsupported. Cardiovascular Status: stable. Pain Management: clinically adequate - multimodal analgesia pain management approach Postoperative Hydration: acceptable. Intraoperative Events: no significant anesthesia events Recommendation: continue current plan of care. Anesthesia Observations No Documentation SIGNATURE: Jignesh Hahn MD PATIENT NAME: Berta Jaramillo DATE: March 24, 2024 TIME: 12:31 PM CSN: [id number] Normal [facility] ANES POSTPROC EVAL HNO ID: [id number] Author: JIGNESH HAHN MD Service: Anesthesiology Author Type: Anesthesiologist Type: Anesthesia Postprocedure Evaluation Filed: 03/24/2024 11:17 Note Text: POST ANESTHESIA EVALUATION NOTE : 1965 Procedure Summary Date: 03/24/24 Room / Location: [facility] Endoscopy Anesthesia Start: 853 Anesthesia Stop: 917 Procedure: EGD DIAGNOSTIC Diagnosis: (Generalized abdominal pain) Scheduled Providers: Meghana Aguayo MD; Jignesh Hahn MD; Perla White APRN.INFORMATION OFFICER Responsible Provider: Jignesh Hahn MD Anesthesia Type: MAC ASA Status: 3 Anesthesia Type: MAC Last Vitals Vitals Value Taken Time BP 126/76 03/24/24 0930 Temp 36.6 ?C (97.9 ?F) 03/24/24 0917 Pulse 97 03/24/24 0945 Resp 10 03/24/24 0945 SpO2 97 % 03/24/24 0945 Vitals shown include unfiled device data. Post Anesthesia Patient Status Patient Evaluation: PACU. PACU/ICU Patient Condition: stable. Anticipated Disposition: phase 2 then home. Neurological Status: aware and responsive. Pulmonary Status: breathing comfortably on room air Airway Control: returned to baseline unsupported. Cardiovascular Status: stable. Pain Management: clinically adequate - multimodal analgesia pain management approach Postoperative Hydration: acceptable. Intraoperative Events: no significant anesthesia events Recommendation: continue current plan of care. Anesthesia Observations No Documentation SIGNATURE: Jignesh Hahn MD PATIENT NAME: Berta Jaramillo DATE: March 24, 2024 TIME: 9:46 AM CSN: [id number] [facility] ANES PRE-OPon 03-24-2024 ANES PRE-OP HNO ID: [id number] Author: JIGNESH HAHN MD Service: Anesthesiology Author Type: Anesthesiologist Type: Anesthesia Preprocedure Evaluation Filed: 03/24/2024 10:16 Note Text: ANESTHESIOLOGY DAY OF SURGERY NOTE : 1965 Procedure Information Date/Time: 03/24/24 1029 Procedure: AMPUTATION GREAT TOE METATARSOPHALANGEAL JOINT (Right: Foot) Location: [facility] OR04 / [facility] OR Surgeons: Seven Dinh DPM Estimated body mass index is 32.75 kg/m? as calculated from the following: Height as of this encounter: 175.3 cm (5' 9). Weight as of this encounter: 100.6 kg (221 lb 12.5 oz). Most recent hematocrit and potassium results: Hematocrit 25.0 03/24/2024 Potassium 4.7 03/24/2024 Relevant Problems CARDIO (+) Essential hypertension ENDO (+) Type 2 diabetes mellitus, with long-term current use of insulin (HCC) GI (+) Gastroesophageal reflux disease without esophagitis Other (+) Rheumatoid arthritis, involving unspecified site, unspecified whether rheumatoid factor present (HCC) (+) Right hallux osteomyelitis (HCC) I - PHYSICAL EVALUATION AIRWAY Patient intubated: No. Tracheostomy tube not present Mallampati: II. TM distance: >3 FB. Neck ROM: full ROM without neurological symptoms. Mouth opening: adequate. DENTAL Dental findings: poor dentition. Additional exam findings: no II - ANESTHESIA PLAN ASA Score: 3 Anesthetic Plan: MAC NPO Status: adequate Beta Jhon Monitoring Plan Monitoring plan: standard ASA. Post Procedure Analgesic Plan Postoperative analgesic plan: parenteral or oral opioids and multimodal analgesia. Informed Consent Anesthetic risks, benefits, alternatives, personnel and consent discussed: yes. Patient / Responsible Alliance Party agrees to proceed: yes Patient / Surrogate agrees to blood products: blood products not planned Significant changes in the patient condition since the History and Physical, not otherwise documented in primary service progress note: no. Vitals Value Taken Time BP 141/84 03/24/24 1000 Pulse 97 03/24/24 1000 Resp 14 03/24/24 1000 Temp 36.6 ?C (97.9 ?F) 03/24/24 0945 SpO2 97 % 03/24/24 1000 Vitals shown include unfiled device data. Facility-Administered Medications as of 03/24/2024 Medication Dose Route Frequency - [COMPLETED] insulin glargine 10 Units pen (long acting) 10 Units SUBCUTANEOUS ONCE - [Transfer Hold] insulin lispro 2 Units injection (rapid acting) (ADMElog) 2 Units SUBCUTANEOUS w MEALS - [COMPLETED] insulin glargine 5 Units pen (long acting) 5 Units SUBCUTANEOUS DAILY (8 AM) - [Transfer Hold] insulin glargine 10 Units pen (long acting) 10 Units SUBCUTANEOUS DAILY (8 AM) - [Transfer Hold] ferric gluconate 250 mg in NaCl 0.9% 100 mL (FERRLECIT) 250 mg INTRAVENOUS DAILY AT 6 PM - [Transfer Hold] folic acid 1 mg tab(s) 1 mg ORAL DAILY - [Transfer Hold] iv contrast (radiology procedure) INTRAVENOUS DIRECTED PRN - [Transfer Hold] pantoprazole DR 40 mg tab(s) (PROTONIX) 40 mg ORAL BID AC (0600/1600) - [COMPLETED] magnesium sulfate 1 g in D5W 100 mL 1 g INTRAVENOUS q 1 H - [Transfer Hold] polyethylene glycol 3350 17 g packet 17 g ORAL DAILY - [Transfer Hold] nicotine 21 mg/24 hr 1 Patch (NICODERM) 1 Patch TRANSDERMAL DAILY And - [Transfer Hold] nicotine -- REMOVE patch OTHER DAILY And - [Transfer Hold] nicotine - verify patch OTHER q 8 H - [Transfer Hold] NaCl 0.9% iv flush bag 20 mL INTRAVENOUS PRN - [Transfer Hold] dextrose 40 % 15 g 15 g ORAL PRN Or - [Transfer Hold] glucagon 1 mg injection 1 mg INTRAMUSCULAR PRN Or - [Transfer Hold] dextrose 10% iv bolus 12.5 g INTRAVENOUS PRN - [Transfer Hold] cefepime 2 g in D5W 100 mL Vial-Bag (MAXIPIME) 2 g INTRAVENOUS q 8 H - [Transfer Hold] aluminum-magnesium hydroxide-simethicone 200-200-20 mg/5 mL 30 mL 30 mL ORAL q 6 H PRN - [Transfer Hold] insulin lispro injection (rapid acting) (ADMElog) SUBCUTANEOUS w MEALS - [Transfer Hold] pregabalin (LYRICA) cap(s) 225 mg 225 mg ORAL TID - [Transfer Hold] amLODIPine 5 mg tab(s) (NORVASC) 5 mg ORAL DAILY - [Transfer Hold] atorvastatin 80 mg tab(s) (LIPITOR) 80 mg ORAL DAILY - [Transfer Hold] ezetimibe 10 mg tab(s) (ZETIA) 10 mg ORAL DAILY - [Transfer Hold] lisinopril 10 mg tab(s) (ZESTRIL) 10 mg ORAL DAILY - [Transfer Hold] metoprolol tartrate (short acting) 25 mg tab(s) (LOPRESSOR) 25 mg ORAL BID - [Transfer Hold] insulin glargine 10 Units pen (long acting) 10 Units SUBCUTANEOUS AT BEDTIME - [Transfer Hold] sucralfate 1 g tab(s) (CARAFATE) 1 g ORAL QID - [Transfer Hold] amitriptyline 50 mg tab(s) (ELAVIL) 50 mg ORAL AT BEDTIME - [Transfer Hold] busPIRone (BUSPAR) tab(s) 15 mg 15 mg ORAL TID - [Transfer Hold] sertraline 100 mg tab(s) (ZOLOFT) 100 mg ORAL AT BEDTIME - [Transfer Hold] leflunomide 10 mg tab(s) (ARAVA) 10 mg ORAL DAILY - [Transfer Hold] tamsulosin 0.4 mg cap(s) (FLOMAX) 0.4 mg ORAL DAILY - [Transfer Hold] melatonin 9 mg tab(s) 9 mg ORAL AT BEDTIME - (more content not included)... [facility] PRE-OP HNO ID: [id number] Author: JIGNEHS HAHN MD Service: Anesthesiology Author Type: Anesthesiologist Type: Anesthesia Preprocedure Evaluation Filed: 03/24/2024 08:58 Note Text: ANESTHESIOLOGY DAY OF SURGERY NOTE : 1965 Procedure Information Anesthesia Start Date/Time: 03/24/24 0854 Scheduled providers: Meghana Aguayo MD; Jignesh Hahn MD; Perla White APRN.INFORMATION OFFICER Procedure: EGD DIAGNOSTIC Location: [facility] Endoscopy Estimated body mass index is 32.75 kg/m? as calculated from the following: Height as of this encounter: 175.3 cm (5' 9). Weight as of this encounter: 100.6 kg (221 lb 12.5 oz). Most recent hematocrit and potassium results: Hematocrit 25.0 03/24/2024 Potassium 4.7 03/24/2024 Relevant Problems CARDIO (+) Essential hypertension ENDO (+) Type 2 diabetes mellitus, with long-term current use of insulin (HCC) GI (+)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 2776-05, ####[facility]ORATORYCLIA [id number] [address] ALP [Catalytic activity/Vol] 115 U/L High 38-113 [facility] Comment on above: Order Comment: Speci men Type: BLOOD SPECIMENOrdering Facility: [facility] Address: [address] [place] [address] Performed By: #### 2 4323-8, 2776-05, ####[facility]ORATORYCLIA [id number] [address] [facility] ALT [Catalytic activity/Vol] U/L Low 10-54 [facility] Comment on above: Order Comment: Speci men Type: BLOOD SPECIMENOrdering Facility: [facility] Address: [address] [place] [address] Performed By: #### 2 4323-8, 27711-14, ####[facility]ORATORYCLIA [id number] [address] Anion gap [Moles/Vol] 7 mmol/L Low 8-15 [facility] Comment on above: Order Comment: Speci men Type: BLOOD SPECIMENOrdering Facility: [facility] Address: [address] [place] [address] Performed By: #### 2 4323-8, 27711-14, ####[facility] LABORATORYCLIA [id number] [place] [id number] [facility] AST [Catalytic activity/Vol] 9 U/L Low 14-40 [facility] Comment on above: Order Comment: Speci men Type: BLOOD SPECIMENOrdering Facility: [facility] Address: [address] [place] [address] Performed By: #### 2 4323-8, 2776-05, ####[facility] LABORATORYCLIA [id number] [place] [address] [place] Bilirubin [Mass/Vol] 0.2 mg/dL Normal 0.2-1.3 [facility] Comment on above: Order Comment: Speci men Type: BLOOD SPECIMENOrdering Facility: [facility] Address: [address] [place], [place] [address] Performed By: #### 2 4323-8, 2776-05, ####[facility] LABORATORYCLIA [id number] [place] [address] [place] Calcium [Mass/Vol] 8.9 mg/dL Normal 8.5-10.2 [facility] Comment on above: Order Comment: Speci men Type: BLOOD SPECIMENOrdering Facility: [facility] Address: [address] [place], [place] [address] Performed By: #### 2 4323-8, 2776-05, ####[facility]ORATORYCLIA [id number] [place] [address] [place] Chloride [Moles/Vol] 103 mmol/L Normal 98-107 [facility] Comment on above: Order Comment: Speci men Type: BLOOD SPECIMENOrdering Facility: [facility] Address: [address] [place] [address] Performed By: #### 2 4323-8, 2776-05, ####[facility] LABORATORYCLIA [id number] [place] [address] [place] CO2 [Moles/Vol] 29 mmol/L Normal 22-30 [facility] Comment on above: Order Comment: Speci men Type: BLOOD SPECIMENOrdering Facility: [facility] Address: [address] [place] [address] Performed By: #### 2 4323-8, 2776-05, ####[facility]ORATORYCLIA [id number] [place] [id number] [place] Creatinine [Mass/Vol] 0.93 mg/dL Normal 0.73-1.22 [facility] Comment on above: Order Comment: David ortega Type: BLOOD SPECIMENOrdering Facility: [facility] Address: [address] [place] [address] Performed By: #### 2 4323-8, 2777-1, ####[facility] LABORATORYCLIA [id number] [place] [id number] [facility] Creatinine and Glomerular filtration rate.predicted panel (S/P/Bld) 96 mL/min/1.73m??? Normal >=60 [facility] Comment on above: Order Comment: David ortega Type: BLOOD SPECIMENOrdering Facility: [facility] Address: [address] [place] [address] Result Comment: Marilyn mated Glomerular Filtration Rate (eGFR) is calculated using the 2020 CKD-EPI creatinine equation. This equation utilizes serum creatinine, sex, and age as parameters. The creatinine assay has traceable calibration to isotope dilution-mass spectrometry. Refer to KDIGO guidelines for clinical interpretation. In patients with unstable renal function, e.g. those with acute kidney injury, the eGFR may not accurately reflect actual GFR. Performed By: #### 2 4323-8, 2777-, ####[facility] LABORATORYCLIA [id number] [place] [id number] [place] Glucose [Mass/Vol] 142 mg/dL High 74-99 [facility] Comment on above: Order Comment: David ortega Type: BLOOD SPECIMENOrdering Facility: [facility] Address: [address] [place] [address] Result Comment: The [place] Diabetes [employer] (ADA) provides guidance for cutoff values for fasting glucose and random glucose. The ADA defines fasting as no caloric intake for at least 8 hours. Fasting plasma glucose results between 100 to 125 mg/dL indicate increased risk for diabetes (prediabetes). Fasting plasma glucose results greater than or equal to 126 mg/dL meet the criteria for diagnosis of diabetes. In the absence of unequivocal hyperglycemia, results should be confirmed by repeat testing. In a patient with classic symptoms of hyperglycemia or hyperglycemic crisis, random plasma glucose results greater than or equal to 200 mg/dL meet the criteria for diagnosis of diabetes. Reference: Standards of Medical Care in Diabetes 2016, [place] [employer]. Diabetes Care. 2016.39(Suppl 1). Performed By: #### 2 4323-8, 2776-05, ####[facility] LABORATORYCLIA [id number] [place] [address] [place] Potassium [Moles/Vol] 4.7 mmol/L Normal 3.7-5.1 [facility] Comment on above: Order Comment: Martini men Type: BLOOD SPECIMENOrdering Facility: [facility] Address: [address] [place] [address] Performed By: #### 2 4323-8, 2776-05, ####[facility]ORATORYCLIA [id number] [place] [address] [place] Protein [Mass/Vol] 6.6 g/dL Normal 6.3-8.0 [facility] Comment on above: Order Comment: Martini men Type: BLOOD SPECIMENOrdering Facility: [facility] Address: [address] [place] [address] Performed By: #### 2 4323-8, 2776-05, ####[facility]ORATORYCLIA [id number] [place] [address] [place] Sodium [Moles/Vol] 139 mmol/L Normal 136-144 [facility] Comment on above: Order Comment: Martini men Type: BLOOD SPECIMENOrdering Facility: [facility] Address: [address] [place] [address] Performed By: #### 2 4323-8, 2776-05, ####[facility] LABORATORYCLIA [id number] [place] [id number] [place] Urea nitrogen [Mass/Vol] 9 mg/dL Normal 9-24 [facility] Comment on above: Order Comment: Martini men Type: BLOOD SPECIMENOrdering Facility: [facility] Address: [address] [place] [id number] Performed By: #### 2 4323-8, 2776-05, 36475-1 ####[facility] LABORATORYCLIA [id number] [place] [address] [place] Fungus Spec Culton Fungus identified Cx Nom (Unsp spec) CULTURE, FUNGAL: No Fungus isolated after 10 days Normal [facility] Comment on above: Performed By: #### 6 00-7 #### [facility] CLIA [id number] [address] [place] [address] [place] IgA SerPl-mCncon 03-24-2024 IgA [Mass/Vol] 213 mg/dL Normal 70-400 [facility] Comment on above: Order Comment: Speci men Type: BLOOD SPECIMENOrdering Facility: [facility] Address: [address] [place] [address] Performed By: #### 2 458-8 ####[facility] LABCLIA [id number] [place] [address] [place] Magnesium SerPl-mCncon 03-24 Magnesium [Mass/Vol] 1.9 mg/dL Normal 1.7-2.3 [facility] Comment on above: Order Comment: Speci men Type: BLOOD SPECIMENOrdering Facility: [facility] Address: [address] [place] [address] Performed By: #### 2 4323-8, 2777-1, 90911-0 ####[facility] LABORATORYCLIA [id number] [place] [address] [place] OPERATIVE NOon 03-24-2024 OPERATIVE NO HNO ID: [id number] Author: SEVEN DINH DPM Service: Podiatry Author Type: Physician Type: Operative Report Filed: 03/24/2024 11:31 Note Text: OPERATIVE/PROCEDURE REPORT LOG ID: [id number] SURGERY/PROCEDURE DATE: 03/24/2024 INCISION/PROCEDURE START TIME: 11:01 AM INCISION CLOSE/PROCEDURE END TIME: 11:25 AM PRE-OP/PRE-PROCEDURE DIAGNOSIS: Osteomyelitis, R great toe Abscess, R great toe Cellulitis, R foot Ulcer, R great toe, level of bone DMII with neuropathy POST-OP/POST-PROCEDURE DIAGNOSIS: Same as Preop SURGERY/PROCEDURE(S): R great toe amputation at MTPJ IANDD R foot deep multiple areas level of bone sharp excisional nonselective debridement into level of bone (post debridement 2 x 6 x 1 cm) SURGEON(S)/PROCEDURALIST(S ) AND TITLE SEARCH MANAGER(S): Surgeons and Role: * Seven Dinh DPM - Primary * Gilbert Valdivia DPM - Resident - Assisting * Alejandro Dunn DPM - Resident - Assisting Physician Client Executive: Concepcion Odonnell PA-C ANESTHESIA: Monitored Anesthesia Care ESTIMATED BLOOD LOSS: 20cc SPECIMENS: R great toe to path, R foot post lavage, bone biopsy R 1st met head IMPLANTABLE DEVICES: none DRAINS: none COMPLICATIONS: none SURGERY/PROCEDURE DETAILS: INDICATIONS FOR PROCEDURE: The patient was seen in the hospital for worsening R great toe infection and wound. Patient is noted to have had bone infection to the great toe seen on imaging. Discussed conservative and surgical options. Discussed IV antibiotics and wound care vs amputation with patient. Discussed all risks and benefits of all options. All questions were answered. Patient elects to proceed with amputation. The patient had all risks, benefits, alternatives, and complications including, but not limited to infection, delayed healing, nonhealing, need for further surgery, or amputation discussed with the patient. No guarantees were given or implied. The patient agreed to proceed with procedure. DESCRIPTION OF PROCEDURE: Patient was seen in the preoperative holding area where the chart was reviewed and patient was examined and all questions were answered to patient's satisfaction. The patient was then transferred to the OR in the supine position. After administration of anesthesia, an additional 10mL of bupivacaine plain was injected in a digital block type fashion to patient's R great toe. A well-padded ankle tourniquet was applied to R ankle but not inflated at this time. The operative foot and ankle were then prepped and draped in usual sterile fashion. Attention was then directed to the R great toe where a skin marker was utilized to draw out a dorsal medial racquet type incision encompassing the R great toe including any ulceration and poor tissue for amputation. Incision was then carried out with a #15 blade down to the level of bone with all vital neurovascular structures retracted or cauterized as necessary. The operative toe was disarticulated at the level of the metatarsal phalangeal joint and was removed from the field as specimen. Site was further examined. A 15 blade, pickups, and [place] elevator were utilized in order to assess the site for any signs of infection or abscess in multiple places deep to the level of fascia. A combination of a curette, pickups, #15 blade, and bone rongeur were utilized to perform sharp excisional nonselective debridement of the ulcer into level of BONE with removal of devitalized and necrotic tissue. Pre debridement measures 1 x 1.5 x .5 cm and post debridement measures 2 x 6 x 1 cm to level of bone. The remaining wound bed was healthy in appearance with appropriate bleeding. There was no abscess or purulent drainage noted proximal to metatarsal head. We cut the flexor and extensor tendons as proximal as possible with 15 blade. No signs of infection were present past level of met head post debridement Site was then flushed with copious amounts of normal sterile saline utilizing a pulse lavage. After this was done, clean instrumentation was swapped out along with clean gloves. Post lavage swab culture was obtained and bone biopsy of R 1st met head was obtained with rongeur Next we did ID of hte first met further posterior to check for OM check EHL tendon and FHL and there was no noted abscess or sign of infection proximal, We checked and incised with 15 blade in multiple planes and felt comfortable closing, We did post lavage excisional non selective debridement into bone first met with curette and 15 blade removing all non viable tissue til healhty tissue remained.. Next we carried out primary closue PRIMARY Closure was then carefully performed with 3-0 Vicryl for buried deep closure, 4-0 vicryl for subQ and then 4-0 nylon for simple suture skin closure. The site was then dressed with Xeroform, 4 x 4s, Kerlix, and Haritha wrap. There was prompt brisk hyperemic response noted to the amputation site skin edges. The patient was then transferred fro (more content not included)... Normal [facility] Phosphate SerPl-ncon 03-24 Phosphate [Mass/Vol] 3.1 mg/dL Normal 2.7-4.8 [facility] Comment on above: Order Comment: Speci men Type: BLOOD SPECIMENOrdering Facility: [facility] Address: [address], [place] [address] Performed By: #### 2 4323-8, 2777-1, 44326-6 ####[facility] LABORATORYCLIA [id number] [address] [place] SURGICAL PATHOLOGYon 024 CASE REPORT Normal [facility] Comment on above: Order Comment: David ortega Type: TISSUE SPECIMENOrdering Facility: [facility] Address: [address] [place] [address] Result Comment: Surg ical Pathology Report Case: [id number] Authorizing Provider: Seven Dinh DPM Collected: 03/24/2024 11:04 AM Ordering Location: [facility] Surgery Received: 03/24/2024 12:23 PM Pathologist: William Baker MD Specimen: Digit, Right Foot, First, right great toe Performed By: #### 6 00-7 #### [facility] CLIA [id number] [address] [place] [address] [place] CLINICAL HISTORY Normal [facility] Comment on above: Order Comment: David ortega Type: TISSUE SPECIMENOrdering Facility: [facility] Address: [address] [place] [address] Result Comment: Pre- op diagnosis: Osteomyelitis of right foot (HCC) [M86.9] Performed By: #### 6 00-7 #### [facility] CLIA [id number] [address] [place] [address] [place] FINAL DIAGNOSIS [facility] Comment on above: Order Comment: David ortega Type: TISSUE SPECIMENOrdering Facility: [facility] Address: [address] [place] [address] Result Comment: A. 1 st digit, right foot, amputation: - Skin and soft tissues, ulcer with acute inflammation and necrosis. - Chronic osteomyelitis. Performed By: #### 6 00-7 #### [facility] CLIA [id number] [address] [place] [address] [place] FINAL PERFORMING LAB Normal [facility] Comment on above: Order Comment: Speci men Type: TISSUE SPECIMENOrdering Facility: [facility] Address: [address] [place] [address] Result Comment: Diag nostic interpretation performed at [facility], [address] [place] [address] CLIA# [id number] Dope Weigh Operator: Roldan Velásquez M.D. Performed By: #### 6 00-7 #### [facility] CLIA [id number] [address] [place] [address] [place] GROSS DESCRIPTION [facility] Comment on above: Order Comment: Speci men Type: TISSUE SPECIMENOrdering Facility: [facility] Address: [address] [place] [address] Result Comment: A. D igit, Right Foot, First Received in formalin labeled right great toe is a 6.5 x 3.7 by 3.5 cm distal digit consistent with toe with an overlying 2.0 x 0.7 x 0.3 cm yellow-brown toenail. Subjacent to the toenail is a 2.6 x 1.7 cm avila-pink, ulcerated lesion. The skin of the remainder of the digit is nagy-brown to avila. The bone subjacent to the lesion is softened, yellow-nagy, trabecular. The bone at the resection margin is nagy-white, trabecular. A physician representative section of the lesion with underlying bone and bone from the resection margin are submitted following decalcification with formic acid labeled A1. LG March 24, 2024 5:04 PM [place] [address] Performed By: #### 6 00-7 #### [facility] CLIA [id number] [address] [place] [address] [place] CASE REPORT Normal [facility] Comment on above: Order Comment: Speci men Type: TISSUE SPECIMENOrdering Facility: [facility] Address: [address] [place] [address] Result Comment: Surg [facility] Pathology Report Case: [id number] Authorizing Provider: Meghana Aguayo MD Collected: 03/24/2024 09:04 AM Ordering Location: [facility] Endoscopy Received: 03/24/2024 09:54 AM Pathologist: Sarah Lee MD Specimens: A) - Small Bowel, Duodenum, Biopsy, celiac B) - Stomach, Biopsy, hp Performed By: #### 6 00-7 #### [facility] CLIA [id number] [address] [place] [address] [place] DIAGNOSIS COMMENT Normal [facility] Comment on above: Order Comment: Speci men Type: TISSUE SPECIMENOrdering Facility: [facility] Address: [address] [place] [address] Result Comment: B. A pankeratin immunostain was performed in the evaluation of this case and highlights reactive epithelial changes. Given the background of increased lamina propria chronic inflammation a Helicobacter pylori immunostain was performed on block B1 and is negative for Helicobacter pylori organisms. Laboratory Developed Test (LDT) Disclaimer: Performance characteristics of immunohistochemical, immunofluorescent and chromogenic in-situ hybridization tests have been determined by the performing laboratory within [facility] and Laboratory Medicine Department ([facility], [facility], [facility], [facility], [facility], or [facility]) in a manner consistent with CLIA requirements. One or more of these tests have not been cleared or approved by the FDA. [facility] is regulated under CLIA as qualified to perform high-complexity testing. These tests are used for clinical purposes. They should not be regarded as investigational or for research. Positive and negative controls stain appropriately. Performed By: #### 6 00-7 #### [facility] CLIA [id number] [address] [place] [address] FINAL DIAGNOSIS Normal [facility] Comment on above: Order Comment: Martini jordan Type: TISSUE SPECIMENOrdering Facility: [facility] Address: [address] [place] [address] Result Comment: A. S mall bowel, duodenum, biopsy: - Duodenal mucosa with no diagnostic abnormalities. B. Stomach, biopsy: - Antral and oxyntic-type gastric mucosa with focal erosion with mucosal prolapse and reactive and regenerative epithelial changes with increase in lamina propria chronic inflammation. - See comment. Performed By: #### 6 00-7 #### [facility] CLIA [id number] [address] [place] [address] [place] FINAL PERFORMING LAB [facility] Comment on above: Order Comment: Speci men Type: TISSUE SPECIMENOrdering Facility: [facility] Address: [address] [place] [address] Result Comment: Diag nostic interpretation performed at [facility], [address] [place] [address] CLIA# [id number] Dope Weigh Operator: Roldan Velásquez M.D. Performed By: #### 6 00-7 #### [facility] CLIA [id number] [address] [place] [address] GROSS DESCRIPTION [facility] Comment on above: Order Comment: Speci men Type: TISSUE SPECIMENOrdering Facility: [facility] Address: [address] [place] [address] Result Comment: A. S mall Bowel, Duodenum, Biopsy Received in formalin are multiple pieces of nagy, soft tissue aggregating to 1.2 x 0.2 x 0.2 cm. Totally submitted in one cassette. B. Stomach, Biopsy Received in formalin are multiple pieces of nagy, soft tissue aggregating to 1.0 x 0.2 x 0.2 cm. Totally submitted in one cassette. Gross examination performed at [facility], [address] [place] [address] 03/24/2024 4:49 PM Performed By: #### 6 00-7 #### [facility] CLIA [id number] [address] [place] [address] OF [place] THERAPY NTon 03-24-2024 THERAPY NT HNO ID: [id number] Author: CECILIA VILLANUEVA, PT, DPT Service: Physical Therapy Author Type: Physical Therapist Type: Therapy (PT/OT/Speech/Resp) Filed: 03/24/2024 13:02 Note Text: -- Summary: PT missed -- PHYSICAL THERAPY MISSED VISIT SERVICE DATE: 03/24/2024 SERVICE TIME: 1300 ROOM: [id number] Patient not seen due to .having surgery today: R great toe amputation at MTPJ, IANDD R foot deep multiple areas level of bone, sharp excisional nonselective debridement into level of bone. In non WB but is able to use heel to transfer. Will attempt PT tomorrow, RN was notified. SIGNATURE: Cecilia Villanueva, PT, DPT PATIENT NAME: Berta Jaramillo DATE: March 24, 2024 TIME: 1:01 PM Normal [facility] Upper GI endoscopyon 024 Upper GI endoscopy [facility] Gastrointestinal Endoscopy Patient Name: Berta Jaramillo Procedure Date: 03/24/2024 8:44 AM Date of : 1965 Admit Type: Inpatient Age: 58 Room: [facility] Gender: Male Note Status: Finalized Attending MD: Meghana Aguayo , , Procedure: Upper GI endoscopy Indications: Generalized abdominal pain, Iron deficiency anemia, Nausea, Weight loss Providers: Meghana Aguayo Referring Physician: Keny Kumar MD (Referring MD) Medicines: Monitored Anesthesia Care Complications: No immediate complications. Requesting Provider: Procedure: Pre-Anesthesia Assessment: - Prior to the procedure, a History and Physical was performed, and patient medications, allergies and sensitivities were reviewed. The patient's tolerance of previous anesthesia was reviewed. - The risks and benefits of the procedure and the sedation options and risks were discussed with the patient. All questions were answered and informed consent was obtained. - ASA Grade Assessment: III - A patient with severe systemic disease. - The heart rate, respiratory rate, oxygen saturations, blood pressure, adequacy of pulmonary ventilation, and response to care were monitored throughout the procedure. After obtaining informed consent, the endoscope was passed under direct vision. Throughout the procedure, the patient's blood pressure, pulse, and oxygen saturations were monitored continuously. The Endoscope was introduced through the mouth, and advanced to the second part of duodenum. The upper GI endoscopy was accomplished with ease. The patient tolerated the procedure well. Moderate Sedation: See the other procedure note for documentation of moderate sedation with intraservice time. MAC anesthesia was administered by the anesthesia team. Total Procedure Duration: 0 hours 8 minutes 54 seconds Findings: The duodenal bulb, first portion of the duodenum and second portion of the duodenum were normal. Biopsies for histology were taken with a cold forceps for evaluation of celiac disease. Two 2 to 3 mm angiodysplastic lesions with no bleeding were found in the gastric antrum. Coagulation for tissue destruction using argon plasma at 1.4 liters/minute and 30 ramirez was successful. The exam of the stomach was otherwise normal. Bipsies for histology were taken with a cold forceps for evaluation of H pylori. One benign-appearing, intrinsic moderate stenosis was found. The stenosis was traversed. The scope was withdrawn. Dilation was performed with a Nguyen dilator with no resistance at 60 Fr. Impression: - Normal duodenal bulb, first portion of the duodenum and second portion of the duodenum. Biopsied. 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 Treated with argon plasma coagulation (APC). - Benign-appearing esophageal stenosis. Dilated. Recommendation: - Await pathology results. - NPO for scheduled surgery. - Continue present medications. - Perform a colonoscopy at appointment to be scheduled. Attending Participation: I personally performed the entire procedure. Scope In: 9:02:55 AM Scope Out: 9:11:49 AM Meghana Aguayo, 03/24/2024 9:19:46 AM This report has been signed electronically by Meghana Aguayo Number of Addenda: 0 Note Initiated On: 03/24/2024 8:44 AM Estimated Blood Loss: Estimated blood loss: none. Normal [facility] 25(OH)D3 [facility] 2023 25-hydroxyvitamin D3 [Mass/Vol] 77.5 ng/mL Normal 31.0-80.0 [facility] Comment on above: Order Comment: Speci men Type: BLOOD SPECIMENOrdering Facility: [facility] Address: [address] [place] [address] Result Comment: Clas sification of 25 [place] Vitamin D status: Deficiency/Insufficiency: < or = 30 ng/ml. Sufficiency/Optimal Levels: 31-80 ng/mL Toxicity: > 100 ng/mL. Test performed by chemiluminescent immunoassay. Performed By: #### 1 989-3 ####[facility] LABCLIA [id number] [address] HEALTHon 03-23-2024 [facility] HNO ID: [id number] Author: PAOLA RIVAS RDMS Service: Radiology Author Type: Radiology Supervisor Type: [facility] Filed: 03/23/2024 14:15 Note Text: Radiology Service Progress Note PATIENT NAME: Berta Jaramillo DATE OF SERVICE: March 23, 2024 TIME: 2:15 PM PATIENT IDENTITY VERIFICATION COMPLETED USING TWO (2) IDENTIFIERS: Name and Date of confirmed by patient verbally and Name and Date of confirmed by identification band. FALL SCREENING: Has the patient had 2 falls in the last year or 1 fall with injury or currently using an Ambulatory Assistive Device (Walker, Cane, Wheelchair, Crutches, etc.)? Inpatient: Screened on floor PATIENT GENDER DATA: Male PATIENT RELEVANT IMPLANT DATA REVIEWED: Not Applicable PATIENT PRESENTS WITH AN IMPLANTABLE OR ATTACHED TANK BUILDER AND ERECTOR: No RADIOLOGY DEPARTMENT: Ultrasound PERIPHERAL IV DATA: Not applicable SIGNED BY: Paola Rivas RDMS March 23, 2024 2:[address] [facility] HNO ID: [id number] Author: AKRMA BELL CT Service: Radiology Author Type: Plug Saw Operator Type: [facility] Filed: 03/23/2024 13:03 Note Text: Radiology Service Progress Note PATIENT NAME: Berta Jaramillo DATE OF SERVICE: March 23, 2024 TIME: 1:03 PM PATIENT IDENTITY VERIFICATION COMPLETED USING TWO (2) IDENTIFIERS: Name and Date of confirmed by patient verbally. FALL SCREENING: Has the patient had 2 falls in the last year or 1 fall with injury or currently using an Ambulatory Assistive Device (Walker, Cane, Wheelchair, Crutches, etc.)? Inpatient: Screened on floor PATIENT GENDER DATA: Male PATIENT RELEVANT IMPLANT DATA REVIEWED: Yes PATIENT PRESENTS WITH AN IMPLANTABLE OR ATTACHED TANK BUILDER AND ERECTOR: No RADIOLOGY DEPARTMENT: MR; Exam(s) Completed: Lower MSK: Forefoot/Midfoot, right PERIPHERAL IV DATA: Not applicable SIGNED BY: KAY Logan March 23, 2024 1:03 PM Normal [facility] Bacteria Bld Culton 03-23-20 24 Bacteria identified Cx Nom (Bld) CULTURE, BLOOD: No growth 5 days Normal [facility] Comment on above: Performed By: #### 6 00-7 #### [facility] CLIA [id number] [address] [place] [address] [place] Bacteria identified Cx Nom (Bld) CULTURE, BLOOD: No growth 5 days Normal [facility] Comment on above: Performed By: #### 6 00-7 ####[facility] LABCLIA [id number] [place] [address] [place] Bacteria Wnd Culton 03-23-20 24 Bacteria identified Cx Nom (Wound) ORGANISM ID: 1 Rare Corynebacterium striatum No susceptibility testing done. GRAM STAIN: No organisms seen No Polymorphonuclear Leukocytes Abnormal [facility] Comment on above: Performed By: #### 6 462-6 #### [facility] CLIA [id number] [address] [place] [address] [place] CBC panel Auto (Bld)on 03-23 Erythrocyte distribution width (RBC) [Ratio] 21.5 % High 11.5-15.0 [facility] Comment on above: Order Comment: Speci men Type: BLOOD SPECIMENOrdering Facility: [facility] Address: [address] [place] [address] Performed By: #### 5 8410-2 ####[facility] LABORATORYCLIA [id number] [place] [address] [place] Hematocrit (Bld) [Volume fraction] 21.6 % Low 39.0-51.0 [facility] Comment on above: Order Comment: Speci men Type: BLOOD SPECIMENOrdering Facility: [facility] Address: [address] [place] [address] Performed By: #### 5 8410-2 ####[facility] LABORATORYCLIA [id number] [address] Hemoglobin (Bld) [Mass/Vol] 7.3 g/dL Low 13.0-17.0 [facility] Comment on above: Order Comment: Speci men Type: BLOOD SPECIMENOrdering Facility: [facility] Address: [address] [place] [address] Performed By: #### 5 8410-2 ####[facility] LABORATORYCLIA [id number] [address] MCH (RBC) [Entitic mass] 22.7 pg Low 26.0-34.0 [facility] Comment on above: Order Comment: Speci men Type: BLOOD SPECIMENOrdering Facility: [facility] Address: [address] [place] [address] Performed By: #### 5 8410-2 ####[facility] LABORATORYCLIA [id number] [address] MCHC (RBC) [Mass/Vol] 33.8 g/dL Normal 30.5-36.0 [facility] Comment on above: Order Comment: Speci men Type: BLOOD SPECIMENOrdering Facility: [facility] Address: [address] [place] [address] Performed By: #### 5 8410-2 ####[facility] LABORATORYCLIA [id number] [address] MCV (RBC) [Entitic vol] 67.1 fL Low 80.0-100.0 [facility] Comment on above: Order Comment: Speci men Type: BLOOD SPECIMENOrdering Facility: [facility] Address: [address] [place] [address] Performed By: #### 5 8410-2 ####[facility] LABORATORYCLIA [id number] [place] [address] [place] Nucleated RBC (Bld) [#/Vol] 10*3/uL Normal <0.01 [facility] Comment on above: Order Comment: Speci men Type: BLOOD SPECIMENOrdering Facility: [facility] Address: [address] [place] [address] Performed By: #### 5 8410-2 ####[facility] LABORATORYCLIA [id number] [place] [address] [place] Platelet mean volume (Bld) [Entitic vol] 9.7 fL Normal 9.0-12.7 [facility] Comment on above: Order Comment: Speci men Type: BLOOD SPECIMENOrdering Facility: [facility] Address: [address] [place] [address] Performed By: #### 5 8410-2 ####[facility] LABORATORYCLIA [id number] [place] [address] [place] Platelets (Bld) [#/Vol] 266 10*3/uL Normal 150-400 [facility] Comment on above: Order Comment: Speci men Type: BLOOD SPECIMENOrdering Facility: [facility] Address: [address] [place] [address] Performed By: #### 5 8410-2 ####[facility] LABORATORYCLIA [id number] [place] [address] [place] RBC (Bld) [#/Vol] 3.22 10*6/uL Low 4.20-6.00 [facility] Comment on above: Order Comment: Speci men Type: BLOOD SPECIMENOrdering Facility: [facility] Address: [address] [place] [address] Performed By: #### 5 8410-2 ####[facility] LABORATORYCLIA [id number] [place] [address] [place] WBC (Bld) [#/Vol] 7.17 10*3/uL Normal 3.70-11.00 [facility] Comment on above: Order Comment: Speci men Type: BLOOD SPECIMENOrdering Facility: [facility] Address: [address] [place] [address] Performed By: #### 5 8410-2 ####[facility] LABORATORYCLIA [id number] [address] CONFIRM BLOOD TYPEon 024 ABO AB [facility] Comment on above: Order Comment: David ortega Type: BLOOD SPECIMEN [facility]ing Facility: [facility] Address: [address] [place] [address] Performed By: #### C ONABO #### [facility] CLIA [id number] [address] Rh Nom (Bld) Positive [facility] Comment on above: Order Comment: Speci men Type: BLOOD SPECIMEN Ordering Facility: [facility] Address: [address] [place] [address] Performed By: #### C ONABO #### [facility] CLIA [id number] [address] CONSULTon 03-23-2024 CONSULT HNO ID: [id number] Author: KENY KUMRA MD Service: Gastroenterology Author Type: Physician Type: Consults Filed: 03/23/2024 16:07 Note Text: GASTROENTEROLOGY CONSULT NOTE PATIENT NAME: Berta Jaramillo SERVICE DATE: March 23, 2024 SERVICE TIME: 10:17 AM PRIMARY CARE PHYSICIAN: Rachel Chery MD ATTENDING PHYSICIAN: Quinn Cristina MD REASON FOR ADMISSION: Right hallux osteomyelitis REASON FOR CONSULTATION: Iron deficiency anemia HPI: This is a 58 year old male with a past medical history significant for diabetes mellitus type 2, rheumatoid arthritis, hypertension, anxiety, depression, GERD, and osteomyelitis who presents with right foot/toe wound. He has been following with Dr. Peres with Podiatry in [place]. He is recommended a right partial hallux amputation - podiatry is following and planning for inpatient amputation today vs tomorrow. GI consult has been requested for acute on chronic anemia. He was apparently supposed to see hematology - Dr. Palm however has not yet done so. Labs on admission revealed Hgb of 8.2 (previously 9.8 on 10/25/23) and today has dropped to 7.3, MCV 67.1 with normal BUN and Cr. He is also noted to have mildly elevated AP of 114. Iron studies showed iron of 25, TIBC 265, % sat 9.5 and ferritin 16.3. Folate is normal. Patient is somewhat of a poor and vague historian therefore details of HPI are somewhat limited. He reports chronic stomach problems for the past ~3.5 years, in part he attributes to frequent antibiotic use. He notes over the past several month however his symptoms have been mostly well controlled with taking Protonix 40 mg twice daily and Sucralfate 1 AC/HS. He reports occasional upper abdominal discomfort associated with nausea but no vomiting. Rare heartburn or reflux symptoms. No dysphagia or odynophagia. Typically he moves his bowels once every 1-2 weeks. He denies any hematochezia but reports stools are black. He reports his appetite is chronically decreased and has early satiety. He reports having lost 80 # intentionally over the past ~1.5 years. He takes an 81 mg ASA daily but otherwise denies any NSAID or AC use. ALLERGIES No Known Allergies PAST MEDICAL HISTORY: PAST MEDICAL HISTORY Diagnosis Date Atopic eczema Benign prostatic hyperplasia with urinary hesitancy Chronic anemia Depression Depression Diabetes mellitus (HCC) Essential hypertension Gastroesophageal reflux disease without esophagitis Generalized anxiety disorder Hypercholesterolemia Neuropathy Osteomyelitis of right foot (HCC) Tobacco use PAST SURGICAL HISTORY: PAST SURGICAL HISTORY Procedure Laterality Date KNEE SURGERY HX Right MEDICATIONS: Prior to Admission Medications: sertraline (ZOLOFT) 100 mg tablet, Take 100 mg by mouth daily at bedtime., Disp: , Rfl: , 03/21/2024 at 2100 amitriptyline (ELAVIL) 50 mg tablet, Take 1 tablet by mouth daily at bedtime., Disp: 30 tablet, Rfl: 03/21/2024 at 2100 atorvastatin (LIPITOR) 80 mg tablet, Take 1 tablet by mouth once daily., Disp: 30 tablet, Rfl: 03/22/2024 at 1000 lisinopril (ZESTRIL) 10 mg tablet, Take 1 tablet by mouth once daily., Disp: 30 tablet, Rfl: 03/22/2024 at 1000 metoprolol tartrate, short acting, (LOPRESSOR) 25 mg tablet, Take 1 tablet by mouth two times a day., Disp: 60 tablet, Rfl: 03/22/[address] (PROTONIX) 40 mg tablet, Take 1 tablet by mouth once daily., Disp: 30 tablet, Rfl: , 03/22/2024 at 1000 pregabalin (LYRICA) 225 mg capsule, Take 1 capsule by mouth three times a day for 180 days., Disp: 90 capsule, Rfl: , 03/22/2024 at 1100 busPIRone (BUSPAR) 15 mg tablet, Take 1 tablet by mouth three times a day., Disp: 90 tablet, Rfl: , 03/22/2024 at 1000 ezetimibe (ZETIA) 10 mg tablet, Take 1 tablet by mouth once daily., Disp: 30 tablet, Rfl: , 03/22/2024 at 1000 amLODIPine (NORVASC) 5 mg tablet, Take 1 tablet by mouth once daily. May also take 1 tablet once daily as needed (For BP over 150/95)., Disp: 60 tablet, Rfl: , 03/22/2024 at 1000 insulin glargine (BASAGLAR KWIKPEN U-100 INSULIN) 100 unit/mL (3 mL), Inject 10 Units subcutaneously daily at bedtime. Will adjust insulin orders as needed and send new RX when dose adjusted, Disp: 3 mL, Rfl: 3, 03/21/2024 at 2100 metFORMIN (GLUCOPHAGE) 1,000 mg tablet, Take 1,000 mg by mouth two times a day with meals., Disp: , Rfl: , 03/22/2024 at 1000 insulin aspart human (NOVOLOG) 100 unit/ml soln, Inject 4 Units subcutaneously two times a day., Disp: , Rfl: , 03/22/2024 at 1000 insulin aspart (NOVOLOG FLEXPEN U-100 INSULIN SUBCUTANEOUS), Inject 2 Units subcutaneously daily at bedtime., Disp: , Rfl: , 03/21/2024 at 2100 multivit,calc,mins/iron/fo lic (THERA-M ORAL), Take 1 tablet by mouth daily at 6 am., Disp: , Rfl: , 03/22/2024 at 0600 dulaglutide (TRULICITY) 1.5 mg/0.5 mL pen injector, Inject 1.5 mg subcutaneously one time a week., Disp: 12 Each, Rfl: 3, Past We (more content not included)... [facility] CONSULT HNO ID: [id number] Author: ERROL GONZALEZ MD Service: Infectious Disease Author Type: Physician Type: Consults Filed: 03/23/2024 09:56 Note Text: INFECTIOUS DISEASE INITIAL CONSULT SERVICE DATE: 03/23/2024 SERVICE TIME: 9:50 AM REASON FOR CONSULT: R toe OM Subjective Patient is seen at the request of Dr Cristina. My final recommendations will be communicated back to the requesting physician by way of copy of this note or shared electronic medical record. HPI: Berta Jaramillo who is a 58 year old male admitted for wound infection, patient was seen by podiatry yesterday for his right big toe wound and they recommended ER evaluation and admission for amputation of the right big toe due to osteomyelitis, patient denies any fever, denies other complaints PAST MEDICAL HISTORY Diagnosis Date Atopic eczema Benign prostatic hyperplasia with urinary hesitancy Chronic anemia Depression Depression Diabetes mellitus (HCC) Essential hypertension Gastroesophageal reflux disease without esophagitis Generalized anxiety disorder Hypercholesterolemia Neuropathy Osteomyelitis of right foot (HCC) Tobacco use PAST SURGICAL HISTORY Procedure Laterality Date KNEE SURGERY HX Right Social History Tobacco Use Smoking status: Every Day Current packs/day: 1.00 Average packs/day: 1.5 packs/day for 42.9 years (64.2 ttl pk-yrs) Types: Cigarettes Start date: 1980 Smokeless tobacco: Never Vaping Use Vaping status: Never Used Substance Use Topics Alcohol use: Never Drug use: Never FAMILY HISTORY Problem Relation Age of Onset Diabetes Mother Diabetes Father Hypertension Father Diabetes Paternal Grandmother Diabetes Paternal Grandfather Anesthesia Problems No Family History Immunization History Administered Date(s) Administered COVID-19 original vaccine, full dose, monovalent (MODERNA) 08/01/2020 08/29/2020 10/07/2021 hepatitis B (HepB) vaccine, 3-dose series, age 20+ yr (ENGERIX-B, RECOMBIVAX HB) 01/30/2022 01/30/2022 influenza (IIV3) vaccine, age 6 mo - 64 yr, trivalent (AFLURIA, FLULAVAL, FLUVIRIN, FLUZONE) 02/18/2024 influenza (IIV3) vaccine, trivalent, PF (AFLURIA, FLUARIX, FLULAVAL, FLUVIRIN, FLUZONE) 02/17/2017 influenza (IIV4) vaccine, age 6 mo - 64 yr, quadrivalent (AFLURIA, FLULAVAL, FLUZONE) 01/30/2022 influenza A (H5N1) vaccine, monovalent, adjuvanted, national stockpile 01/30/2022 pneumococcal conjugate (PCV20) vaccine, 20 valent (PREVNAR 20) 02/18/2024 tuberculin skin test, unspecified formulation 12/11/2022 12/22/2022 Deferred Date(s) Deferred COVID-19 vaccine, age 12+ yr, bivalent ([employer]) 01/30/2022 influenza (IIV4) vaccine, age 6 mo - 64 yr, quadrivalent (AFLURIA, FLULAVAL, FLUZONE) 02/25/2023 Current Facility-Administered Medications Medication Dose Route Frequency insulin glargine 10 Units pen (long acting) 10 Units SUBCUTANEOUS ONCE insulin lispro 2 Units injection (rapid acting) (ADMElog) 2 Units SUBCUTANEOUS w MEALS NaCl 0.9% iv flush bag 20 mL INTRAVENOUS PRN dextrose 40 % 15 g 15 g ORAL PRN Or glucagon 1 mg injection 1 mg INTRAMUSCULAR PRN Or dextrose 10% iv bolus 12.5 g INTRAVENOUS PRN cefepime 2 g in D5W 100 mL Vial-Bag (MAXIPIME) 2 g INTRAVENOUS q 8 H aluminum-magnesium hydroxide-simethicone 200-200-20 mg/5 mL 30 mL 30 mL ORAL q 6 H PRN insulin lispro injection (rapid acting) (ADMElog) SUBCUTANEOUS w MEALS pregabalin (LYRICA) cap(s) 225 mg 225 mg ORAL TID amLODIPine 5 mg tab(s) (NORVASC) 5 mg ORAL DAILY atorvastatin 80 mg tab(s) (LIPITOR) 80 mg ORAL DAILY ezetimibe 10 mg tab(s) (ZETIA) 10 mg ORAL DAILY lisinopril 10 mg tab(s) (ZESTRIL) 10 mg ORAL DAILY metoprolol tartrate (short acting) 25 mg tab(s) (LOPRESSOR) 25 mg ORAL BID insulin lispro 4 Units injection (rapid acting) (ADMElog) 4 Units SUBCUTANEOUS TID w MEALS insulin glargine 10 Units pen (long acting) 10 Units SUBCUTANEOUS AT BEDTIME pantoprazole DR 40 mg tab(s) (PROTONIX) 40 mg ORAL DAILY (6 AM) sucralfate 1 g tab(s) (CARAFATE) 1 g ORAL QID amitriptyline 50 mg tab(s) (ELAVIL) 50 mg ORAL AT BEDTIME busPIRone (BUSPAR) tab(s) 15 mg 15 mg ORAL TID sertraline 100 mg tab(s) (ZOLOFT) 100 mg ORAL AT BEDTIME leflunomide 10 mg tab(s) (ARAVA) 10 mg ORAL DAILY tamsulosin 0.4 mg cap(s) (FLOMAX) 0.4 mg ORAL DAILY melatonin 9 mg tab(s) 9 mg ORAL AT BEDTIME oxyCODONE IR 5 mg tab(s) (ROXICODONE) 5 mg ORAL q 6 H PRN acetaminophen 1,000 mg tab(s) (TYLENOL) 1,000 mg ORAL q 8 H ALLERGIES No Known Allergies REVIEW OF SYSTEMS: ROS checked in details x 10 systems and is negative except as noted in the HPI. All qs answered. Objective PHYSICAL EXAM: Temp (24hrs), Av.4 ?C (97.6 ?F), Min:36.4 ?C (97.5 ?F), Max:36.5 ?C (97.7 ?F) BP 130/71 Pulse 87 Temp 36.4 ?C (97.5 ?F) (Oral) Resp 17 Ht 175.3 cm (5' 9) Wt 103.3 kg (227 lb 11.8 oz) SpO2 96% BMI 33.63 kg/m? GENERAL APPEARANCE: Alert, NAD SKIN: N (more content not included)... Normal [facility] CONSULT HNO ID: [id number] Author: AMARIS NAYLOR DPM Service: Podiatry Author Type: Physician Type: Consults Filed: 03/23/2024 08:00 Note Text: CONSULT: POD SURGICAL SERVICE SERVICE DATE: 03/23/2024 SERVICE TIME: 6:24 AM REASON FOR CONSULT: RT great toe ulcer and OM PRIMARY CARE PHYSICIAN: Rachel Chery MD ASSESSMENT AND PLAN RT great toe OM RT great toe cellulitis RT great toe ulcer, level of bone DMII with neuropathy Nicotine abuse Chart and labs reviewed WBC 9.49 CRP 0.7 Hgb A1c: 6.9 on 11/10/23. NEW A1c pending 03/22/24 XR RT foot: distal phalanx OM great toe. No gas in soft tissues Weight bearing status: WBAT Given chronic wound and probe to bone with distal phalanx OM, I went over options of IV antibiotics and amputation. He wants to do amputation. Went over risks benefits including non-healing, delayed healing, result in more proximal amputation. Plan for RT great toe amp today with me versus tomorrow with Dr Dinh pending OR scheduleI will see if can go today to OR based on availability and will update plan of care later once I figure out OR schedule Keep NPO until I figure out schedule today ADDENDUM 03/23/24 7:50AM No OR availability today. Planning surgery tomorrow with Dr Dinh. NPO at midnight Diet carb controlled restarted Discussed with patient and understands plan SUBJECTIVE Mr. Jaramillo is a 58 year old male who presents with chronic RT great toe OM and wound. He is diabetic. He was seeing other DPM since for several months and wound was not healing. Saw me for second opinion on 03/20/24 at the office. Given exposed bone and positive wound culture with PsAg, I instructed him to come to ER on 03/20/24 however due to facility transportation issues, he was unable to get to hospital until yesterday evening. His XR RT foot was positive for distal phalanx OM RT great toe. He is daily smoker. Denies any systemic symptoms. No N/V/F/C/SOB/D PAST MEDICAL HISTORY: PAST MEDICAL HISTORY Diagnosis Date Atopic eczema Benign prostatic hyperplasia with urinary hesitancy Chronic anemia Depression Depression Diabetes mellitus (HCC) Essential hypertension Gastroesophageal reflux disease without esophagitis Generalized anxiety disorder Hypercholesterolemia Neuropathy Osteomyelitis of right foot (HCC) Tobacco use PAST SURGICAL HISTORY: PAST SURGICAL HISTORY Procedure Laterality Date KNEE SURGERY HX Right FAMILY HISTORY: FAMILY HISTORY Problem Relation Age of Onset Diabetes Mother Diabetes Father Hypertension Father Diabetes Paternal Grandmother Diabetes Paternal Grandfather Anesthesia Problems No Family History SOCIAL HISTORY: Social History Tobacco Use Smoking status: Every Day Current packs/day: 1.00 Average packs/day: 1.5 packs/day for 42.9 years (64.2 ttl pk-yrs) Types: Cigarettes Start date: 1980 Smokeless tobacco: Never Vaping Use Vaping status: Never Used Substance Use Topics Alcohol use: Never Drug use: Never MEDICATIONS: Prior to Admission Medications: sertraline (ZOLOFT) 100 mg tablet, Take 100 mg by mouth daily at bedtime., Disp: , Rfl: , 03/21/2024 at 2100 amitriptyline (ELAVIL) 50 mg tablet, Take 1 tablet by mouth daily at bedtime., Disp: 30 tablet, Rfl: , 03/21/2024 at 2100 atorvastatin (LIPITOR) 80 mg tablet, Take 1 tablet by mouth once daily., Disp: 30 tablet, Rfl: 03/22/2024 at 1000 lisinopril (ZESTRIL) 10 mg tablet, Take 1 tablet by mouth once daily., Disp: 30 tablet, Rfl: , 03/22/2024 at 1000 metoprolol tartrate, short acting, (LOPRESSOR) 25 mg tablet, Take 1 tablet by mouth two times a day., Disp: 60 tablet, Rfl: , 03/22/20[address] (PROTONIX) 40 mg tablet, Take 1 tablet by mouth once daily., Disp: 30 tablet, Rfl: 03/22/2024 at 1000 pregabalin (LYRICA) 225 mg capsule, Take 1 capsule by mouth three times a day for 180 days., Disp: 90 capsule, Rfl: 03/22/2024 at 1100 busPIRone (BUSPAR) 15 mg tablet, Take 1 tablet by mouth three times a day., Disp: 90 tablet, Rfl: 03/22/2024 at 1000 ezetimibe (ZETIA) 10 mg tablet, Take 1 tablet by mouth once daily., Disp: 30 tablet, Rfl: 03/22/2024 at 1000 amLODIPine (NORVASC) 5 mg tablet, Take 1 tablet by mouth once daily. May also take 1 tablet once daily as needed (For BP over 150/95)., Disp: 60 tablet, Rfl: 03/22/2024 at 1000 insulin glargine (BASAGLAR KWIKPEN U-100 INSULIN) 100 unit/mL (3 mL), Inject 10 Units subcutaneously daily at bedtime. Will adjust insulin orders as needed and send new RX when dose adjusted, Disp: 3 mL, Rfl: , 03/21/2024 at 2100 metFORMIN (GLUCOPHAGE) 1,000 mg tablet, Take 1,000 mg by mouth two times a day with meals., Disp: , Rfl: , 03/22/2024 at 1000 insulin aspart human (NOVOLOG) 100 unit/ml soln, Inject 4 Units subcutaneously two times a day., Disp: , Rfl: , 03/22/2024 at 1000 insulin aspart (NOVOLOG FLEXPEN U-100 INSULIN SUBCUTANEOUS), Inject 2 Units subcutaneously da (more content not included)... Normal [facility] CONSULT HNO ID: [id number] Author: CHARI BLOCK, PhD Service: Psychology Author Type: Psychologist Type: Consults Filed: 03/27/2024 09:15 Note Text: [facility] PSYCHOLOGY CONSULT SERVICE INITIAL CONSULT NOTE SENSITIVE INFORMATION - NOT FOR GENERAL RELEASE SERVICE DATE: March 23, 2024 SERVICE TIME: 11:47 AM - 1:00 PM Reason for Consult: Depression-as discussed need to see if he needs a sitter for suicide ideation when impression is he does not please confirm or refute this. Clint has been admitted for the following: Patient Active Hospital Problem List: Right hallux osteomyelitis (HCC) Date Noted: 03/22/2024 Essential hypertension Date Noted: 01/30/2022 Type 2 diabetes mellitus, with long-term current use of insulin (HCC) Date Noted: 01/30/2022 Depression, recurrent (HCC) Date Noted: Rheumatoid arthritis, involving unspecified site, unspecified whether rheumatoid factor present (HCC) Date Noted: 10/22/2022 Gastroesophageal reflux disease without esophagitis Date Noted: Benign prostatic hyperplasia with urinary hesitancy Date Noted: Nicotine use disorder, F17.2 Date Noted: 03/22/2024 Obesity, Class I, BMI 30-34.9 Date Noted: 03/22/2024 Iron deficiency anemia Date Noted: 03/23/2024 ASSESSMENT: Mr. Jaramillo is a 58 year old male who was seen at bedside today. He was alert and oriented to person, place, time and situation.. The purpose of the consultation was explained and he gave permission to continue. Mr. Jaramillo's mood was reported as depressed, but optimistic. Affect appeared mood congruent. Thought content observed was within normal limits and included no suicidal ideation/intent, homicidal ideation or intent or apparent delusions.. He stated that sometimes he gets into a very dark place, but does not feel that way today. He recounted a recent incident where he was thinking of ending his life and God stepped in so that he would return home. He states this has happened at other critical points in his life and he has been able to change his ways. Thought process was coherent. Mr Jaramillo demonstrated fair insight and fair judgment. Mr. Vaughn was referred due to concerns about aborted suicide attempt approximately three months ago. At this time, Mr. Jaramillo is admitted for toe amputation. He currently lives in assisted living on a waiver arrangement from the [facility] that provides him room, board, medication management, and $50 allowance per month in exchange for his income. He states that he is independent with his activities of daily living and his Independent activities of daily living. He states that he has been providing his own wound care. Mr. Jaramillo shares that he can go to a very dark place in his mind at times and explained that three months ago he was in that place and planned to end his life; however, he was interrupted when someone called his name and he realized what he was doing and returned home. He responded to ongoing disrespect with anger that resulted in legal proceedings. He states that while the deep sea diver recognized that he has not been in trouble before and just sentenced him $[address], that will diminish his $50 discretionary funds for months. He is currently in need of house slippers and clothing that fits since he has lost weight. He states that he realized he is not able to serve on the [employer] any longer due to not being able to take chances of this situation recurring. Mr. Jaramillo was appreciative of resources for counseling, community engagement, and additional meal resources. 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 Requests nicotine patch Discussed with Dr. Cristina 1. At this time after reviewing risks and protective factors, Mr. Jaramillo demonstrates forward thinking and poses low risk of self harm in this controlled environment.and chronic risk in community environment. Continue to monitor mood and provide support. 2. Recommend engage in counseling to decrease symptoms of depression, suicidal ideation/intent, increase self-regulation so that he can return to [facility] if he chooses or participate in other meaningful committee work. 3. Recommend engage with [facility] activities, meal programs, and volunteer there. He should be able to participate due to his disability status. Mr Jaramillo states that he has a meeting with his waiver case management social worker Wednesday. Perhaps she/he can assist with engagement at the center especially for meals given he is not enjoying the meals at his assisted living center. 4. May consider engaging in a sikh so that he can be in community with others who share his beliefs. Thank you for the opportunity to participate in Berta Jaramillo's care. COLLATERAL INFORMATION: EMR Reviewed PSYCHIATRIC ROS: Depression: + Depressed mood and + Guilt with admits to h (more content not included)... 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 Discussed with Dr. Cristina Full note to follow 03/24/2024 [facility] COPPER BLOODon 03-23-2024 Copper [Mass/Vol] 106 ug/dL Normal 70-140 [facility] Comment on above: Order Comment: Speci men Type: BLOOD SPECIMENOrdering Facility: [facility] Address: [address] [place] [address] Result Comment: This test was developed, and its performance characteristics determined by the [facility] Department of Pathology and Laboratory Medicine. It has not been cleared or approved by the FDA. The [facility] Department of Pathology and Laboratory Medicine is regulated under CLIA as qualified to perform high-complexity testing. This test is used for clinical purposes. It should not be regarded as investigational or for research. Performed By: #### 5 [id number], COPPER ####[facility] LABCLIA [id number] [place] [address] [place] CTA CHEST (NON GATED) W IVCO N PEon 03-23-2024 CTA CHEST (NON GATED) W IVCON PE * * *Final Report* * * DATE OF EXAM: Mar 23 2024 11:01AM [facility] [id number]A CHEST (NON GATED) W IVCON PE / PROCEDURE REASON: Pulmonary embolism (PE) suspected, high prob * * * * Physician Interpretation * * * * EXAMINATION: CHEST CTA (NON GATED) WITH CONTRAST (PULMONARY EMBOLISM PROTOCOL) HISTORY: Clinical information: Pulmonary embolism (PE) suspected, high prob SOB Technique: Spiral CT acquisition of the chest from the thoracic inlet to the upper abdomen following IV contrast. Axial 1 and 3 mm thick slices plus coronal and sagittal reformatted images. MQ: CTCP_5 Contrast: 80 mL Omnipaque [address] Radiation dose: Integrated Dose-length product (DLP) for this visit = 494 mGy*cm CT Dose Reduction Employed: Automated exposure control(AEC) and iterative recon CTA: Post-processed images {Maximum intensity Projection (MIP), Volume-rendered (VR), or Surface shaded display images (SSD)} were created, reviewed and archived. Comparison: 09/21/2014 CTA chest RESULT: Limitations: None. Evaluation for thromboembolic disease: - Right heart chambers: No thromboembolic disease. - Main pulmonary arteries: No thromboembolic disease. - Lobar pulmonary arteries: No thromboembolic disease. - Segmental pulmonary arteries: No thromboembolic disease. - Subsegmental pulmonary arteries: No thromboembolic disease. - Additional pulmonary artery findings: The main pulmonary artery is normal in caliber. Lines, tubes, and devices: None. Lung parenchyma and airways: No consolidation. No suspicious pulmonary nodule. The central airways are patent. Mild left base subsegmental atelectasis Pleural space: No pleural effusion. No pleural thickening. Lower neck, lymph nodes, and mediastinum: 3.4 cm lower pole left lobe thyroid nodule is again noted. Heart, pericardium, and thoracic vessels: The thoracic aorta is normal in caliber. The cardiac chambers are normal in size. No coronary artery atherosclerotic calcifications are noted, although the study is not optimized for coronary assessment. No pericardial effusion or thickening. Bones and soft tissues: No destructive bone lesion. Chest wall is unremarkable. Upper abdomen: Gallbladder sludge and/or stones Localizer images: Nonspecific IMPRESSION: No CT evidence of pulmonary embolism. Hookman: BRYCE Transcribe Date/Time: Mar 23 2024 11:05A Dictated by : DUDLEY FLETCHER MD This examination was interpreted and the report reviewed and electronically signed by: DUDLEY FLETCHER MD on Mar 23 2024 11:16AM EST [id number] Normal [facility] Comprehensive metabolic 2000 panelon 03-23-2024 Albumin [Mass/Vol] 3.3 g/dL Low 3.9-4.9 [facility] Comment on above: Order Comment: Speci men Type: BLOOD SPECIMENOrdering Facility: [facility] Address: [address] [place], [place] [address] Performed By: #### 3 016-3, 2131-9, 2776-1, 2283-8, 26582-0, 68923-0 ####[facility]ORATORYCLIA [id number] [place] [address] [place] ALP [Catalytic activity/Vol] 114 U/L High 38-113 [facility] Comment on above: Order Comment: Speci men Type: BLOOD SPECIMENOrdering Facility: [facility] Address: [address] [place], [place] [address] Performed By: #### 3 016-3, 2131-9, 2776-1, 2283-8, , 36984-1 ####[facility]ORATORYCLIA [id number] [address] [facility] ALT [Catalytic activity/Vol] U/L Low 10-54 [facility] Comment on above: Order Comment: Speci men Type: BLOOD SPECIMENOrdering Facility: [facility] Address: [address] [place], [place] [address] Performed By: #### 3 016-3, 9, 2776-1, 2283-8, , 08454-6 ####[facility]ORATORYCLIA [id number] [address] [facility] Anion gap [Moles/Vol] 5 mmol/L Low 8-15 [facility] Comment on above: Order Comment: Speci men Type: BLOOD SPECIMENOrdering Facility: [facility] Address: [address] [place], [place] [address] Performed By: #### 3 016-3, 2131-9, 2776-1, 2283-8, 28715-4, 66965-0 ####[facility]ORATORYCLIA [id number] [address] AST [Catalytic activity/Vol] 7 U/L Low 14-40 [facility] Comment on above: Order Comment: Speci men Type: BLOOD SPECIMENOrdering Facility: [facility] Address: [address] [place], [place] [address] Performed By: #### 3 016-3, 2131-9, 7-1, 2284-8, 26289-7, 21706-8 ####[facility]ORATORYCLIA [id number] [place] [address] [place] Bilirubin [Mass/Vol] mg/dL Low 0.2-1.3 [facility] Comment on above: Order Comment: Speci men Type: BLOOD SPECIMENOrdering Facility: [facility] Address: [facility] [place] [address] Performed By: #### 3 016-3, 9, 7-1, 4-8, 61369-2, 36024-9 ####[facility]ORATORYCLIA [id number] [place] [address] [place] Calcium [Mass/Vol] 8.5 mg/dL Normal 8.5-10.2 [facility] Comment on above: Order Comment: Speci men Type: BLOOD SPECIMENOrdering Facility: [facility] Address: [facility] [place] [address] Performed By: #### 3 016-3, 9, 7-1, 2283-8, 89841-9, 64206-8 ####[facility] LABORATORYCLIA [id number] [place] [address] [place] Chloride [Moles/Vol] 107 mmol/L Normal 98-107 [facility] Comment on above: Order Comment: Speci men Type: BLOOD SPECIMENOrdering Facility: [facility] Address: [facility] [place] [address] Performed By: #### 3 016-3, 9, 2776-1, 2283-8, 63397-4, 67513-6 ####[facility]ORATORYCLIA [id number] [place] [address] [place] CO2 [Moles/Vol] 30 mmol/L Normal 22-30 [facility] Comment on above: Order Comment: Speci men Type: BLOOD SPECIMENOrdering Facility: [facility] Address: [address] [place], [place] [address] [address] Performed By: #### 3 016-3, 2131-9, 7-1, 2284-8, 82440-3, 69672-0 ####[facility] LABORATORYCLIA [id number] [place] [id number] [place] Creatinine [Mass/Vol] 0.91 mg/dL Normal 0.73-1.22 [facility] Comment on above: Order Comment: [facility] Type: BLOOD SPECIMENOrdering Facility: [facility] Address: [address] [place] [address] Performed By: #### 3 016-3, 2131-9, 7-1, 4-8, 51189-0, 86188-0 ####[facility] LABORATORYCLIA [id number] [place] [id number] [place] Creatinine and Glomerular filtration rate.predicted panel (S/P/Bld) 98 mL/min/1.73m??? Normal >=60 [facility] Comment on above: Order Comment: [facility] Type: BLOOD SPECIMENOrdering Facility: [facility] Address: [address] [place] [address] Result Comment: Marilyn mated Glomerular Filtration Rate (eGFR) is calculated using the 2020 CKD-EPI creatinine equation. This equation utilizes serum creatinine, sex, and age as parameters. The creatinine assay has traceable calibration to isotope dilution-mass spectrometry. Refer to KDIGO guidelines for clinical interpretation. In patients with unstable renal function, e.g. those with acute kidney injury, the eGFR may not accurately reflect actual GFR. Performed By: #### 3 016-3, 2131-9, 2776-1, 2283-8, 69622-9, 55222-4 ####[facility] LABORATORYCLIA [id number] [place] [address] [place] Glucose [Mass/Vol] 187 mg/dL High 74-99 [facility] Comment on above: Order Comment: [facility] Type: BLOOD SPECIMENOrdering Facility: [facility] Address: [address] [place] [address] Result Comment: The [place] Diabetes [employer] (ADA) provides guidance for cutoff values for fasting glucose and random glucose. The ADA defines fasting as no caloric intake for at least 8 hours. Fasting plasma glucose results between 100 to 125 mg/dL indicate increased risk for diabetes (prediabetes). Fasting plasma glucose results greater than or equal to 126 mg/dL meet the criteria for diagnosis of diabetes. In the absence of unequivocal hyperglycemia, results should be confirmed by repeat testing. In a patient with classic symptoms of hyperglycemia or hyperglycemic crisis, random plasma glucose results greater than or equal to 200 mg/dL meet the criteria for diagnosis of diabetes. Reference: Standards of Medical Care in Diabetes 2016, [place] [employer]. Diabetes Care. 2016.39(Suppl 1). Performed By: #### 3 016-3, 9, 2776-1, 2283-8, 30878-0, 94059-1 ####[facility]ORATORYCLIA [id number] [place] [id number] [place] Potassium [Moles/Vol] 4.5 mmol/L Normal 3.7-5.1 [facility] Comment on above: Order Comment: David ortega Type: BLOOD SPECIMENOrdering Facility: [facility] Address: [address] [place] [address] Performed By: #### 3 016-3, 9, 2776-05, 8, , 23495-0 ####[facility] LABORATORYCLIA [id number] [place] [id number] [place] Protein [Mass/Vol] 5.9 g/dL Low 6.3-8.0 [facility] Comment on above: Order Comment: David ortega Type: BLOOD SPECIMENOrdering Facility: [facility] Address: [address] [place] [address] Performed By: #### 3 016-3, 9, 2776-, 2283-8, 42405-4, 38761-7 ####[facility]ORATORYCLIA [id number] [place] [id number] [place] Sodium [Moles/Vol] 142 mmol/L Normal 136-144 [facility] Comment on above: Order Comment: David ortega Type: BLOOD SPECIMENOrdering Facility: [facility] Address: [address] [place] [address] Performed By: #### 3 016-3, 9, 2777-1, 2284-8, 39048-8, 99050-7 ####[facility] LABORATORYCLIA [id number] [place] [address] [facility] Urea nitrogen [Mass/Vol] 7 mg/dL Low 9-24 [facility] Comment on above: Order Comment: Speci men Type: BLOOD SPECIMENOrdering Facility: [facility] Address: [address] [place], [place] [address] Performed By: #### 3 016-3, 2-9, 7-1, 2283-8, 34192-4, 87118-3 ####[facility] LABORATORYCLIA [id number] [place] [address] [facility] ECG COMPLETEon 03-23-2024 ECG COMPLETE Ventricular Rate : 8 9 BPM Atrial Rate : 89 BPM P-R Interval : 220 ms QRS Duration : 94 ms Q-T Interval : 368 ms QTC Calculation(Bazett) : 447 ms Calculated P [place] : 29 degrees Calculated R [place] : -10 degrees Calculated T [place] : 33 degrees SINUS RHYTHM WITH 1ST DEGREE A-V BLOCK LOW VOLTAGE QRS Confirmed by GILBERT SORIA DO ([id number]) on 03/23/2024 8:44:32 AM NAME : BERTA JARAMILLO PID : [id number] : 1965 Gender : Male Race : ORD : [id number] Procedure Date : Mar 23 2024 01:46:32 Edit Date : Mar 23 2024 08:44:38 Diagnosis: SINUS RHYTHM WITH 1ST DEGREE A-V BLOCK LOW VOLTAGE QRS Confirmed by GILBERT SORIA DO ([id number]) on 03/23/2024 8:44:32 AM Test Reason : Pre-OP Location : 4 : 2S 0204 Overread By : GILBERT SORIA DO Edited By : GILBERT SORIA DO Referred By : , Acquired by : Rosalia mcgowan [facility] ESR Westergren method (Bld) [Velocity]on 03-23-2024 ESR (Bld) [Velocity] 65 mm/h High 0-15 [facility] Comment on above: Order Comment: Speci men Type: BLOOD SPECIMENOrdering Facility: [facility] Address: [address] [place] [address] Performed By: #### 4 537-7 ####[facility] LABCLIA [id number] [id number] [address] [place] Folate SerPl-mCncon 03-23-20 24 Folate [Mass/Vol] 5.9 ng/mL Normal >4.7 [facility] Comment on above: Order Comment: Speci men Type: BLOOD SPECIMENOrdering Facility: [facility] Address: [address] [place] [address] [place] [id number] Performed By: #### 3 016-3, 2132-9, 2777-1, 2284-8, 55902-7, 28955-3 ####[facility] LABORATORYCLIA [id number] [address] [place] MRI FOOT/TOES WO IVCON RTon 03-23-2024 MRI FOOT/TOES WO IVCON RT * * *Final Report* * * DATE OF EXAM: Mar 23 2024 1:18PM [facility] 0195 - MRI FOOT/TOES WO IVCON RT / PROCEDURE REASON: Osteomyelitis, foot * * * * Physician Interpretation * * * * EXAMINATION: MRI FOOT/TOES WO IVCON RT PATIENT/TECHNOLOGIST PROVIDED HISTORY: OM of great toe right side CLINICAL HISTORY: 58 years old Male with Osteomyelitis, foot. TECHNIQUE: Multiplanar MRI of the RIGHT forefoot with multiple sequences without contrast. COMPARISON: Radiographs 03/22/2024, 12/03/2023, MRI 12/07/2023 RESULT: Ulceration/wound with underlying subcutaneous edema in the distal great toe. Confluent increased STIR signal with low T1 signal in the underlying 1st distal phalanx consistent with osteomyelitis. Blunting of the tuft of the great toe distal phalanx secondary to bony destructive changes better visualized on radiographs 03/22/2024 progressed compared to MRI 12/07/2023. New bone marrow edema signal in the 2nd toe proximal phalanx possibly related to stress changes. Edema like signal within the intrinsic musculature of the foot similar to prior exam likely secondary to diabetic myopathy. Healing and/or healed distal 5th metatarsal fracture with resolution of previously seen bone marrow edema. Small joint effusions at the 1st and 5th MTP joints. Hammertoe deformities of the 2nd through 5th toes. IMPRESSION: Ulceration/wound distal RIGHT great toe with underlying cellulitis and osteomyelitis of the great toe distal phalanx. New bone marrow edema in the RIGHT 2nd toe proximal phalanx possibly related to stress changes. Healing and/or healed RIGHT distal 5th metatarsal fracture with resolution of previously seen bone marrow edema. Hookman: BRYCE Transcribe Date/Time: Mar 23 2024 2:17P Dictated by : KYLEIGH STANTON DO This examination was interpreted and the report reviewed and electronically signed by: KYLEIGH STANTON DO on Mar 23 2024 2:43PM EST [id number] Normal [facility] Magnesium SerPl-mCncon 03-23 Magnesium [Mass/Vol] 1.6 mg/dL Low 1.7-2.3 [facility] Comment on above: Order Comment: David ortega Type: BLOOD SPECIMENOrdering Facility: [facility] Address: [address] [place] [address] Performed By: #### 3 016-3, 9, 2776-, 8, , ####[facility] LABORATORYCLIA [id number] [place] [address] [place] Phosphate SerPl-mCncon 03-23 Phosphate [Mass/Vol] 3.3 mg/dL Normal 2.7-4.8 [facility] Comment on above: Order Comment: David ortega Type: BLOOD SPECIMENOrdering Facility: [facility] Address: [address] [place] [address] Performed By: #### 3 016-3, 9, 2776-05, 8, , ####[facility] LABORATORYCLIA [id number] [place] [address] [place] TSH SerPl-aCncon 03-23-2024 TSH Qn 2.640 m[IU]/L Normal 0.270-4.200 [facility] Comment on above: Order Comment: David ortega Type: BLOOD SPECIMENOrdering Facility: [facility] Address: [address] [place] [address] Performed By: #### 3 016-3, 9, 2776-1, 2283-12, 46998-1, 15870-5 ####[facility] LABORATORYCLIA [id number] [address] OF [place] TYPE + SCREENon 03-23-2024 ABO AB [facility] Comment on above: Order Comment: Speci men Type: BLOOD SPECIMEN [facility] Address: [address] [place] [address] Performed By: #### T SCR #### [facility] CLIA [id number] [address] Rh Nom (Bld) Positive [facility] Comment on above: Order Comment: Speci men Type: BLOOD SPECIMEN [facility] Address: [address] [place] [address] Performed By: #### T SCR #### [facility] CLIA [id number] [address] TYPE AND SCREEN EXPIRATION 03/26/2024 23:59 [facility] Comment on above: Order Comment: Speci men Type: BLOOD SPECIMEN [facility] Address: [address] [place] [address] Performed By: #### T SCR #### [facility] CLIA [id number] [address] OF [facility] US DVT LOWER BILon 4 US DVT LOWER RAJINDER * * *Final Report* * * DATE OF EXAM: Mar 23 2024 2:21PM [facility]U 1005 - US DVT LOWER RAJINDER / PROCEDURE REASON: Pulmonary embolism (PE) suspected, high prob * * * * Physician Interpretation * * * * EXAMINATION: RIGHT AND LEFT LOWER EXTREMITY DEEP VENOUS ULTRASOUND WITH DOPPLER IMAGING HISTORY: Clinical information: Pulmonary embolism (PE) suspected, high prob Ultrasound of both legs TECHNIQUE: Grayscale with compression maneuvers, color Doppler and spectral Doppler imaging of the right and left proximal deep veins was performed. Grayscale with compression maneuvers of the right and left peroneal and posterior tibial veins was performed. The right and left great and small saphenous veins were evaluated at their insertion to the deep system. Images were obtained and stored in a permanent archive. MQ: [id number]_1 COMPARISON: None RESULT: RIGHT LOWER EXTREMITY PROXIMAL DEEP VEINS Distal External Iliac, Common Femoral and Proximal Profunda Veins: Compression: Normal Doppler: Normal, spontaneous respirophasic flow. Normal response to augmentation. Femoral vein: Compression: Normal Doppler: Normal, spontaneous respirophasic flow. Normal response to augmentation. Popliteal vein: Compression: Normal Doppler: Normal, spontaneous respirophasic flow. Normal response to augmentation. CALF DEEP VEINS Peroneal veins: Normal compression. Posterior tibial veins: Normal compression. Gastrocnemius and Soleal veins: Not imaged. SUPERFICIAL VEINS Great saphenous: Patent and compressible at insertion into common femoral vein; not otherwise assessed. Small Saphenous: Not seen LEFT LOWER EXTREMITY PROXIMAL DEEP VEINS Distal External Iliac, Common Femoral and Proximal Profunda Veins: Compression: Normal Doppler: Normal, spontaneous respirophasic flow. Normal response to augmentation. Femoral vein: Compression: Normal Doppler: Normal, spontaneous respirophasic flow. Normal response to augmentation. Popliteal vein: Compression: Normal Doppler: Normal, spontaneous respirophasic flow. Normal response to augmentation. CALF DEEP VEINS Peroneal veins: Normal compression. Posterior tibial veins: Normal compression. Gastrocnemius and Soleal veins: Not imaged. SUPERFICIAL VEINS Great saphenous: Patent and compressible at insertion into common femoral vein; not otherwise assessed. Small Saphenous: Not seen Bilateral inguinal areas: Lymph nodes present the largest on the RIGHT 2.8 x 1.0 x 2.1 cm and on the LEFT the largest 2.3 x 2.1 x 1 0.7 cm IMPRESSION: 1. Negative study for acute proximal DVT in the LEFT and RIGHT lower extremities. 2. Negative study for acute calf DVT in the LEFT and RIGHT lower extremities. 3. Negative study for acute superficial thrombophlebitis in the imaged segments of the LEFT and RIGHT lower extremities 4. Bilateral inguinal lymph nodes as discussed Hookman: BRYCE Transcribe Date/Time: Mar 23 2024 2:23P Dictated by : NICOLAS ANAYA DO This examination was interpreted and the report reviewed and electronically signed by: NICOLAS ANAYA DO on Mar 23 2024 2:28PM EST [id number] Normal [facility] VITAMIN B1 (THIAMINE), WHOLE BLOODon 03-23-2024 Thiamine (Bld) [Moles/Vol] 82.1 nmol/L Low 84.3-213.3 [facility] Comment on above: Order Comment: David ortega Type: BLOOD SPECIMENOrdering Facility: [facility] Address: [address] [place] [address] Result Comment: This assay measures the concentration of thiamine diphosphate (TDP), the primary active form of vitamin B1. Approximately 90 percent of vitamin B1 present in whole blood is TDP. Thiamine and thiamine monophosphate, which comprise the remaining 10 percent, are not measured. This test was developed, and its performance characteristics determined by the [facility] Department of Pathology and Laboratory Medicine. It has not been cleared or approved by the FDA. The [facility] Department of Pathology and Laboratory Medicine is regulated under CLIA as qualified to perform high-complexity testing. This test is used for clinical purposes. It should not be regarded as investigational or for research. Performed By: #### B 1WB ####[facility] LABCLIA [id number] [place] [address] [place] VITAMIN B6/PYRIDOXINon 03-23 VITAMIN B6 13.3 nmol/L Low 20.0-125.0 [facility] Comment on above: Order Comment: David ortega Type: BLOOD SPECIMENOrdering Facility: [facility] Address: [address] [place] [address] Result Comment: INTE RPRETIVE INFORMATION: Vitamin B6 (Pyridoxal 5-Phosphate) Pyridoxal 5'-phosphate measured in a specimen collected following an 8-hour or overnight fast accurately indicates vitamin B6 nutritional status. Non-fasting specimen concentration reflects recent vitamin intake. This test was developed and its performance characteristics determined by [facility]. It has not been cleared or approved by the [place] Food and Drug Administration. This test was performed in a CLIA certified laboratory and is intended for clinical purposes. Performed By: [facility] [address] [place] [address] Dope Weigh Operator: Tre Moreno MD, PhD CLIA Number: [id number] Performed By: #### V ITB6 ####[facility] LABORATORIESIA [id number] [place] [address] Vit B12 SerPl-ncon 024 Cobalamin (Vitamin B12) [Mass/Vol] 645 pg/mL Normal 232-1245 [facility] Comment on above: Order Comment: David ortega Type: BLOOD SPECIMENOrdering Facility: [facility] Address: [address] [place] [address] [place] [id number] Performed By: #### 3 016-3, 2132-9, 2777-1, 2284-8, 04544-7, 69285-1 ####[facility] LABORATORYCLIA [id number] [place], [place] [id number] [place] [address] [place] [facility] XR CHEST 1V FRONTAL PORTon 1 05-23-2023 XR CHEST 1V FRONTAL PORT * * *Final Report* * * DATE OF EXAM: Mar 23 2024 6:54AM MDX 5376 - XR CHEST 1V FRONTAL PORT / PROCEDURE REASON: Pre-op * * * * Physician Interpretation * * * * EXAMINATION: CHEST RADIOGRAPH (PORTABLE SINGLE VIEW AP) Exam Date/Time: 03/23/2024 6:54 AM CLINICAL HISTORY: Pre-op MQ: XCPR_5 Comparison: 03/17/2024 RESULT: Lines, tubes, and devices: None. Lungs and pleura: Clear Cardiomediastinal silhouette: Stable cardiomediastinal silhouette. Other: . IMPRESSION: No acute finding Hookman: PSCB Transcribe Date/Time: Mar 23 2024 7:34A Dictated by : DUDLEY FLETCHER MD This examination was interpreted and the report reviewed and electronically signed by: DUDLEY FLETCHER MD on Mar 23 2024 7:35AM EST [id number] Normal [facility] Zinc SerPl-mCncon 03-23-2024 Zinc [Mass/Vol] 61 ug/dL Normal 60-120 [facility] Comment on above: Order Comment: David ortega Type: BLOOD SPECIMENOrdering Facility: [facility] Address: [facility] [place] [id number] Result Comment: This test was developed, and its performance characteristics determined by the [facility] Department of Pathology and Laboratory Medicine. It has not been cleared or approved by the FDA. The [facility] Department of Pathology and Laboratory Medicine is regulated under CLIA as qualified to perform high-complexity testing. This test is used for clinical purposes. It should not be regarded as investigational or for research. Performed By: #### 5 763-8, COPPER ####[facility] LABCLIA [id number] [place] [address] [place] CBC W Auto Differential pane l (Bld)on 03-22-2024 Basophils (Bld) [#/Vol] 0.07 10*3/uL Normal <0.11 [facility] Comment on above: Order Comment: Speci men Type: BLOOD SPECIMENOrdering Facility: [facility] Address: [address] [place] [address] Performed By: #### 5 5454-3, 11559-9 ####[facility] LABCLIA [id number] [place] [address] [place]#### 30951-0 ####[facility] LABORATORYCLIA [id number] [place] [address] [place] Basophils/100 WBC (Bld) 0.7 % Normal [facility] Comment on above: Order Comment: Speci men Type: BLOOD SPECIMENOrdering Facility: [facility] Address: [address] [place] [address] Performed By: #### 5 5454-3, 97274-8 ####[facility] LABCLIA [id number] [place] [address] [place]#### 80005-3 ####[facility] LABORATORYCLIA [id number] [place] [address] [place] Differential cell count method Nom (Bld) Auto Normal [facility] Comment on above: Order Comment: Speci men Type: BLOOD SPECIMENOrdering Facility: [facility] Address: [address] [place] [address] Performed By: #### 5 5454-3, 27822-2 ####[facility] LABCLIA [id number] [place] [address] [place]#### 23785-5 ####[facility]ORATORYCLIA [id number] [place] [address] [place] Eosinophils (Bld) [#/Vol] 0.20 10*3/uL Normal <0.46 [facility] Comment on above: Order Comment: Speci men Type: BLOOD SPECIMENOrdering Facility: [facility] Address: [address] [place] [address] Performed By: #### 5 5454-3, 36982-9 ####[facility] LABCLIA [id number] [address] [place]#### 79404-3 ####[facility] LABORATORYCLIA [id number] [address] [place] Eosinophils/100 WBC (Bld) 2.1 % Normal [facility] Comment on above: Order Comment: Speci men Type: BLOOD SPECIMENOrdering Facility: [facility] Address: [address] [place] [address] Performed By: #### 5 5454-3, 77727-8 ####[facility] LABCLIA [id number] [address] [place]#### 60709-6 ####[facility] LABORATORYCLIA [id number] [address] [place] Erythrocyte distribution width (RBC) [Ratio] 21.9 % High 11.5-15.0 [facility] Comment on above: Order Comment: Speci men Type: BLOOD SPECIMENOrdering Facility: [facility] Address: [address] [place] [address] Performed By: #### 5 5454-3, 64281-3 ####[facility] LABCLIA [id number] [address] OF [place]#### 56514-2 ####[facility]ORATORYCLIA [id number] [address] [place] Hematocrit (Bld) [Volume fraction] 24.0 % Low 39.0-51.0 [facility] Comment on above: Order Comment: Speci men Type: BLOOD SPECIMENOrdering Facility: [facility] Address: [address] [place] [address] Performed By: #### 5 5454-3, 67277-1 ####[facility] LABCLIA [id number] [address] [place]#### 28457-3 ####[facility]ORATORYCLIA [id number] [place], [place] [address] [place] [address] OF [place] Hemoglobin (Bld) [Mass/Vol] 8.2 g/dL Low 13.0-17.0 [facility] Comment on above: Order Comment: Speci men Type: BLOOD SPECIMENOrdering Facility: [facility] Address: [address] [place] [address] Performed By: #### 5 5454-3, 58446-2 ####[facility] LABCLIA [id number] [address] OF [place]#### 41465-0 ####[facility]ATORYCLIA [id number] [address] [place] Immature granulocytes (Bld) [#/Vol] 0.03 10*3/uL Normal <0.10 [facility] Comment on above: Order Comment: Speci men Type: BLOOD SPECIMENOrdering Facility: [facility] Address: [address] [place] [address] Performed By: #### 5 5454-3, 34593-7 ####[facility] LABCLIA [id number] [address] OF [place]#### 04645-0 ####[facility]ATORYCLIA [id number] [address] Immature granulocytes/100 WBC (Bld) 0.3 % Normal [facility] Comment on above: Order Comment: Speci men Type: BLOOD SPECIMENOrdering Facility: [facility] Address: [facility] [place] [address] Performed By: #### 5 5454-3, 37908-1 ####[facility] LABCLIA [id number] [address] [place]#### 50638-2 ####[facility]ORATORYCLIA [id number] [place] [address] [place] Lymphocytes (Bld) [#/Vol] 2.36 10*3/uL Normal 1.00-4.00 [facility] Comment on above: Order Comment: Speci men Type: BLOOD SPECIMENOrdering Facility: [facility] Address: [address] [place] [address] Performed By: #### 5 5454-3, 28838-4 ####[facility] LABCLIA [id number] [place] [address] [place]#### 45463-0 ####[facility]ATORYCLIA [id number] [address] [place] Lymphocytes/100 WBC (Bld) 24.9 % Normal [facility] Comment on above: Order Comment: Speci men Type: BLOOD SPECIMENOrdering Facility: [facility] Address: [address] [place] [address] Performed By: #### 5 5454-3, 32077-8 ####[facility] LABCLIA [id number] [address]#### 55297-6 ####[facility]ORYCLIA [id number] [address] [place] MCH (RBC) [Entitic mass] 23.0 pg Low 26.0-34.0 [facility] Comment on above: Order Comment: Speci men Type: BLOOD SPECIMENOrdering Facility: [facility] Address: [address] [place] [address] Performed By: #### 5 5454-3, 19995-3 ####[facility] LABCLIA [id number] [place] [address] [place]#### 15639-0 ####[facility]ORATORYCLIA [id number] [place] [address] [place] MCHC (RBC) [Mass/Vol] 34.2 g/dL Normal 30.5-36.0 [facility] Comment on above: Order Comment: Speci men Type: BLOOD SPECIMENOrdering Facility: [facility] Address: [address] [place] [address] Performed By: #### 5 5454-3, 82535-1 ####[facility] LABCLIA [id number] [place] [address] [place]#### 65869-7 ####[facility]ORATORYCLIA [id number] [place] [address] [place] MCV (RBC) [Entitic vol] 67.2 fL Low 80.0-100.0 [facility] Comment on above: Order Comment: Speci men Type: BLOOD SPECIMENOrdering Facility: [facility] Address: [address] [place] [address] Performed By: #### 5 5454-3, 13347-3 ####[facility] LABCLIA [id number] [address] OF [place]#### 03924-2 ####[facility]ATORYCLIA [id number] [address] [place] Monocytes (Bld) [#/Vol] 0.51 10*3/uL Normal <0.87 [facility] Comment on above: Order Comment: Speci men Type: BLOOD SPECIMENOrdering Facility: [facility] Address: [address] [place] [address] Performed By: #### 5 5454-3, 33538-4 ####[facility] LABCLIA [id number] [place] [address] [facility] OF [place]#### 72803-7 ####[facility]ORATORYCLIA [id number] [address] OF [place] Monocytes/100 WBC (Bld) 5.4 % Normal [facility] Comment on above: Order Comment: Speci men Type: BLOOD SPECIMENOrdering Facility: [facility] Address: [address] [place] [address] Performed By: #### 5 5454-3, 98701-8 ####[facility] LABCLIA [id number] [place] [address] [place]#### 39995-7 ####[facility]ORATORYCLIA [id number] [place] [address] [place] Neutrophils (Bld) [#/Vol] 6.32 10*3/uL Normal 1.45-7.50 [facility] Comment on above: Order Comment: Speci men Type: BLOOD SPECIMENOrdering Facility: [facility] Address: [address] [place] [address] Performed By: #### 5 5454-3, 38591-8 ####[facility] LABCLIA [id number] [place] [address] [place]#### 22742-5 ####[facility]ORATORYCLIA [id number] [place] [address] [place] Neutrophils/100 WBC (Bld) 66.6 % Normal [facility] Comment on above: Order Comment: Speci men Type: BLOOD SPECIMENOrdering Facility: [facility] Address: [address] [place] [address] Performed By: #### 5 5454-3, 21298-2 ####[facility] LABCLIA [id number] [place] [address] [place]#### 93754-2 ####[facility]ORATORYCLIA [id number] [place] [address] [place] Nucleated RBC (Bld) [#/Vol] 10*3/uL Normal <0.01 [facility] Comment on above: Order Comment: Speci men Type: BLOOD SPECIMENOrdering Facility: [facility] Address: [address] [place] [address] Performed By: #### 5 5454-3, 04009-1 ####[facility] LABCLIA [id number] [place] [address] [place]#### 72454-8 ####[facility]ORATORYCLIA [id number] [place] [address] [place] Nucleated RBC/100 WBC (Bld) [Ratio] 0.0 /100 WBC Normal [facility] Comment on above: Order Comment: Speci men Type: BLOOD SPECIMENOrdering Facility: [facility] Address: [address] [place] [address] Performed By: #### 5 5454-3, 70634-1 ####[facility] LABCLIA [id number] [place] [address] [place]#### 85110-9 ####[facility] LABORATORYCLIA [id number] [place] [address] [place] Platelet mean volume (Bld) [Entitic vol] 9.3 fL Normal 9.0-12.7 [facility] Comment on above: Order Comment: Speci men Type: BLOOD SPECIMENOrdering Facility: [facility] Address: [address] [place] [address] Performed By: #### 5 5454-3, 95973-9 ####[facility] LABCLIA [id number] [place] [address] [place]#### 48638-2 ####[facility] LABORATORYCLIA [id number] [place] [address] [place] Platelets (Bld) [#/Vol] 297 10*3/uL Normal 150-400 [facility] Comment on above: Order Comment: Speci men Type: BLOOD SPECIMENOrdering Facility: [facility] Address: [address] [place] [address] Performed By: #### 5 5454-3, 64036-4 ####[facility] LABCLIA [id number] [place] [address] [place]#### 74441-0 ####[facility]ORATORYCLIA [id number] [place] [address] [place] RBC (Bld) [#/Vol] 3.57 10*6/uL Low 4.20-6.00 [facility] Comment on above: Order Comment: Speci men Type: BLOOD SPECIMENOrdering Facility: [facility] Address: [address] [place] [address] Performed By: #### 5 5454-3, 11356-0 ####[facility] LABCLIA [id number] [place] [address] [facility] [place]#### 19523-5 ####[facility]ORATORYCLIA [id number] [address] WBC (Bld) [#/Vol] 9.49 10*3/uL Normal 3.70-11.00 [facility] Comment on above: Order Comment: Speci men Type: BLOOD SPECIMENOrdering Facility: [facility] Address: [address] [place] [address] Performed By: #### 5 5454-3, 86970-8 ####[facility] LABCLIA [id number] [address] [place]#### 56138-8 ####[facility] LABORATORYCLIA [id number] [address] CONSULT PROGon 03-22-2024 CONSULT PROG HNO ID: [id number] Author: JULIA VILLALPANDO RPh Service: Pharmacy Author Type: Pharmacist Type: Consult Progress Note Filed: 03/22/2024 20:40 Note Text: PHARMACY VANCOMYCIN DOSING NOTE Patient Name: Berta Jaramillo Admission Date: 03/22/2024 Date of Consult: 03/22/2024 Time of Consult: 8:40 PM RECOMMENDATIONS/PLAN: Pharmacy consulted for vancomycin dosing for Berta Jaramillo, a 58 year old male. Vancomycin therapy has been discontinued. Vancomycin level(s) have been discontinued: Not Applicable. The pharmacy vancomycin dosing service will sign off. Thank you for allowing us to participate in this patient's care. Please contact pharmacy if there are questions. Julia Villalpando [facility] CONSULT PROG HNO ID: [id number] Author: ZANE MONTOYA [facility] Service: Pharmacy Author Type: Pharmacist Type: Consult Progress Note Filed: 03/22/2024 19:37 Note Text: PHARMACY VANCOMYCIN DOSING NOTE Patient Name: Berta Jaramillo Admission Date: 03/22/2024 Date of Consult: 03/22/2024 Time of Consult: 7:32 PM Indication: Bone AND joint Goal Range: 15-20 mcg/mL RECOMMENDATIONS/PLAN: Pharmacy consulted for vancomycin dosing for Berta Jaramillo, a 58 year old male. 1. Patient is currently ordered Vancomycin 1.5 g IV q12h. Today is day 1 of therapy. 2. No vancomycin level has been drawn for this dosing regimen. 3. The present dose of vancomycin is the recommended dosage for this patient at this time. Continue therapy as prescribed. 4. The next vancomycin level will be ordered for 03/24 unless clinically indicated sooner. (Pharmacy will order) We will follow patient renal function, vancomycin levels and doses with you during the course of therapy. Additional recommendations will appear in follow up notes. If you have any questions, please contact pharmacy at [phone]. Age: [age] year old Allergies: ALLERGIES No Known Allergies Last 3 Encounter Wt Readings: Date: Wt: 03/22/2024 103.9 kg (229 lb) 11/23/2023 104.1 kg (229 lb 9.6 oz) 11/10/2023 104.1 kg (229 lb 9.6 oz) Last 1 Encounter Ht Readings: Date: Ht: 09/13/2023 175.3 cm (5' 9) CrCl: 114 mL/min Temp (24hrs), Av.4 ?C (97.5 ?F), Min:36.4 ?C (97.5 ?F), Max:36.4 ?C (97.5 ?F) - Current Temp: 36.4 ?C (97.5 ?F) Labs BUN (mg/dL) Date Value 03/22/2024 7 (L) 09/30/2023 8 (L) 09/13/2023 8 (L) Creatinine (mg/dL) Date Value 03/22/2024 0.85 09/30/2023 0.77 09/13/2023 0.84 WBC (k/uL) Date Value 03/22/2024 9.49 10/25/2023 8.24 09/13/2023 7.91 Vancomycin Levels: No results found for: SIMI Wayneisa, [facility] Normal [facility] CRP SerPl-ncon 03-22-2024 CRP [Mass/Vol] 0.7 mg/dL Normal <0.9 [facility] Comment on above: Order Comment: Speci men Type: BLOOD SPECIMENOrdering Facility: [facility] Address: [address] [place] [address] Performed By: #### 2 4323-8, 45733-8, 1987-09, 95819-0, 2275-08, 27711-14 ####[facility]ORATORYCLIA [id number] [address] Comprehensive metabolic 2000 panelon 03-22-2024 Albumin [Mass/Vol] 3.6 g/dL Low 3.9-4.9 [facility] Comment on above: Order Comment: Speci men Type: BLOOD SPECIMENOrdering Facility: [facility] Address: [address] [place] [address] Performed By: #### 2 4323-8, 63562-5, 1987-09, , 2275-08, 27711-14 ####[facility] LABORATORYCLIA [id number] [address] ALP [Catalytic activity/Vol] 128 U/L High 38-113 [facility] Comment on above: Order Comment: Speci men Type: BLOOD SPECIMENOrdering Facility: [facility] Address: [address] [place] [address] Performed By: #### 2 4323-8, 79810-5, 1987-09, 21853-4, 2275-08, 27711-14 ####[facility]ORATORYCLIA [id number] [address] ALT [Catalytic activity/Vol] 8 U/L Low 10-54 [facility] Comment on above: Order Comment: Speci men Type: BLOOD SPECIMENOrdering Facility: [facility] Address: [address] [place], [place] [address] Performed By: #### 2 4323-8, 36237-1, 1987-09, 51770-7, 2275-4, 2777-1 ####[facility] LABORATORYCLIA [id number] [place] [address] [place] Anion gap [Moles/Vol] 13 mmol/L Normal 8-15 [facility] Comment on above: Order Comment: Speci men Type: BLOOD SPECIMENOrdering Facility: [facility] Address: [address] [place] [address] Performed By: #### 2 4323-8, 29305-2, 1987-09, 91905-7, 2275-, 2777-1 ####[facility] LABORATORYCLIA [id number] [place] [address] [place] AST [Catalytic activity/Vol] 12 U/L Low 14-40 [facility] Comment on above: Order Comment: Speci men Type: BLOOD SPECIMENOrdering Facility: [facility] Address: [address] [place] [address] Performed By: #### 2 4323-8, 32501-8, 1987-09, 79292-6, 2275-08, 277-1 ####[facility] LABORATORYCLIA [id number] [place] [address] [place] Bilirubin [Mass/Vol] 0.2 mg/dL Normal 0.2-1.3 [facility] Comment on above: Order Comment: Speci men Type: BLOOD SPECIMENOrdering Facility: [facility] Address: [address] [place], [place] [address] Performed By: #### 2 4323-8, 26158-3, 1987-09, 11309-6, 4, 277-1 ####[facility] LABORATORYCLIA [id number] [place] [address] [place] Calcium [Mass/Vol] 8.8 mg/dL Normal 8.5-10.2 [facility] Comment on above: Order Comment: Speci men Type: BLOOD SPECIMENOrdering Facility: [facility] Address: [address] [place], [place] [address] Performed By: #### 2 4323-8, 39624-7, 1987-09, 00220-2, 2275-4, 2777-1 ####[facility] LABORATORYCLIA [id number] [place] [address] [place] Chloride [Moles/Vol] 102 mmol/L Normal 98-107 [facility] Comment on above: Order Comment: Speci men Type: BLOOD SPECIMENOrdering Facility: [facility] Address: [address] [place] [address] Performed By: #### 2 4323-8, 30139-5, 1987-09, 19350-8, 2275-4, 277-1 ####[facility] LABORATORYCLIA [id number] [place] [address] [place] CO2 [Moles/Vol] 23 mmol/L Normal 22-30 [facility] Comment on above: Order Comment: Speci men Type: BLOOD SPECIMENOrdering Facility: [facility] Address: [address] [place] [address] Performed By: #### 2 4323-8, 84356-1, 1987-09, 57509-9, 2275-4, 277-1 ####[facility] LABORATORYCLIA [id number] [place] [address] [place] Creatinine [Mass/Vol] 0.85 mg/dL Normal 0.73-1.22 [facility] Comment on above: Order Comment: Speci men Type: BLOOD SPECIMENOrdering Facility: [facility] Address: [address] [place] [address] Performed By: #### 2 4323-8, 22133-1, 1987-09, 52000-1, 2275-4, 277-1 ####[facility] LABORATORYCLIA [id number] [place] [address] [facility] [place] Creatinine and Glomerular filtration rate.predicted panel (S/P/Bld) 101 mL/min/1.73m??? Normal >=60 [facility] Comment on above: Order Comment: Speci men Type: BLOOD SPECIMENOrdering Facility: [facility] Address: [address] [place] [address] [place] [address] Result Comment: Marilyn mated Glomerular Filtration Rate (eGFR) is calculated using the 2020 CKD-EPI creatinine equation. This equation utilizes serum creatinine, sex, and age as parameters. The creatinine assay has traceable calibration to isotope dilution-mass spectrometry. Refer to KDIGO guidelines for clinical interpretation. In patients with unstable renal function, e.g. those with acute kidney injury, the eGFR may not accurately reflect actual GFR. Performed By: #### 2 4323-8, 05394-4, 1987-09, , 2275-, 2776- ####[facility] LABORATORYCLIA [id number] [place] [address] [place] Glucose [Mass/Vol] 159 mg/dL High 74-99 [facility] Comment on above: Order Comment: David ortega Type: BLOOD SPECIMENOrdering Facility: [facility] Address: [address] [place] [address] Result Comment: The [place] Diabetes [employer] (ADA) provides guidance for cutoff values for fasting glucose and random glucose. The ADA defines fasting as no caloric intake for at least 8 hours. Fasting plasma glucose results between 100 to 125 mg/dL indicate increased risk for diabetes (prediabetes). Fasting plasma glucose results greater than or equal to 126 mg/dL meet the criteria for diagnosis of diabetes. In the absence of unequivocal hyperglycemia, results should be confirmed by repeat testing. In a patient with classic symptoms of hyperglycemia or hyperglycemic crisis, random plasma glucose results greater than or equal to 200 mg/dL meet the criteria for diagnosis of diabetes. Reference: Standards of Medical Care in Diabetes 2016, [employer] [place] [employer]. Diabetes Care. 2016.39(Suppl 1). Performed By: #### 2 4323-8, 48952-8, 1987-09, , 2275-, 2776- ####[facility] LABORATORYCLIA [id number] [place] [address] [place] Potassium [Moles/Vol] 4.3 mmol/L Normal 3.7-5.1 [facility] Comment on above: Order Comment: [facility] Type: BLOOD SPECIMENOrdering Facility: [facility] Address: [address] [place] [address] Performed By: #### 2 4323-8, 38155-0, 1987-09, 70131-5, 6-4, 2777-1 ####[facility] LABORATORYCLIA [id number] [place] [address] [place] [facility] Protein [Mass/Vol] 7.5 g/dL Normal 6.3-8.0 [facility] Comment on above: Order Comment: Speci men Type: BLOOD SPECIMENOrdering Facility: [facility] Address: [address] [place], [place] [address] Performed By: #### 2 4323-8, 48814-4, 1987-09, 94304-2, 6-4, 2777-1 ####[facility] LABORATORYCLIA [id number] [place] [id number] [place] [facility] Sodium [Moles/Vol] 138 mmol/L Normal 136-144 [facility] Comment on above: Order Comment: Speci men Type: BLOOD SPECIMENOrdering Facility: [facility] Address: [address] [place] [address] Performed By: #### 2 4323-8, 55970-8, 1987-09, 84352-1, 2275-4, 2777-1 ####[facility] LABORATORYCLIA [id number] [place] [id number] [place] [facility] Urea nitrogen [Mass/Vol] 7 mg/dL Low 9-24 [facility] Comment on above: Order Comment: Speci men Type: BLOOD SPECIMENOrdering Facility: [facility] Address: [address] [place], [place] [address] Performed By: #### 2 4323-8, 65080-9, 1987-09, 59722-0, 2275-4, 2777-1 ####[facility] LABORATORYCLIA [id number] [place] [address] [place] ED NOTEon 03-22-2024 ED NOTE HNO ID: [id number] Author: ARNEL JOHNSON, RN Service: Nursing Author Type: Registered Nurse Type: ED Notes Filed: 03/22/2024 19:32 Note Text: Pt is in a position of comfort Normal [facility] ED NOTE HNO ID: [id number] Author: ARNEL JOHNSON, APRIL Service: Nursing Author Type: Registered Nurse Type: ED Notes Filed: 03/22/2024 19:27 Note Text: [facility] ED PROV NOTEon 03-22-2024 ED PROV NOTE HNO ID: [id number] Author: CYNTHIA CEBALLOS MD Service: Emergency Medicine Author Type: Physician Type: ED Provider Notes Filed: 03/22/2024 19:39 Note Text: ED Provider Note Patient Name: Berta Jaramillo : 1965 SERVICE DATE: 03/22/24 History Patient presents with: Toe Pain (Toe): RIGHT GREAT TOE IS STICKING OUT, PODIATRY SAW HIM YESTERDAY; TOLD HIM TO COME TO ER FOR ADMISSION FOR TOE AMPUTATION 58-year-old diabetic presents to the ED today for wound infection, patient was seen by podiatry yesterday for his right big toe wound and they recommended ER evaluation and admission for amputation of the right big toe due to osteomyelitis, patient denies any fever, denies other complaints PAST MEDICAL HISTORY Diagnosis Date Atopic eczema Benign prostatic hyperplasia with urinary hesitancy Chronic anemia Depression Depression Diabetes mellitus (HCC) Essential hypertension Gastroesophageal reflux disease without esophagitis Generalized anxiety disorder Hypercholesterolemia Neuropathy Osteomyelitis of right foot (HCC) Tobacco use PAST SURGICAL HISTORY Procedure Laterality Date KNEE SURGERY HX Right FAMILY HISTORY Problem Relation Age of Onset Diabetes Mother Diabetes Father Hypertension Father Diabetes Paternal Grandmother Diabetes Paternal Grandfather Anesthesia Problems No Family History Social History Tobacco Use Smoking status: Every Day Current packs/day: 1.00 Average packs/day: 1.5 packs/day for 42.9 years (64.2 ttl pk-yrs) Types: Cigarettes Start date: 1981 Smokeless tobacco: Never Vaping Use Vaping status: Never Used Substance and Sexual Activity Alcohol use: Never Drug use: Never Sexual activity: Never ALLERGIES No Known Allergies Review of Systems Constitutional: Negative for chills and fever. HENT: Negative for trouble swallowing. Eyes: Negative for photophobia and visual disturbance. Respiratory: Negative for cough, chest tightness, shortness of breath and wheezing. Cardiovascular: Negative for chest pain, palpitations and leg swelling. Gastrointestinal: Negative for abdominal pain, diarrhea, nausea and vomiting. Genitourinary: Negative for dysuria, flank pain and hematuria. Musculoskeletal: Negative for back pain, neck pain and neck stiffness. Skin: Positive for wound. Negative for color change. Neurological: Negative for numbness and headaches. Psychiatric/Behavioral: Negative for confusion. Physical Exam Vitals [03/22/24 1729] BP Pulse Temp Temp src Resp SpO2 Weight Height 117/64 (!) 91 36.4 ?C (97.5 ?F) Temporal 16 99 % 103.9 kg (229 lb) -- Physical Exam Constitutional: Appearance: He is well-developed. HENT: Head: Normocephalic and atraumatic. No raccoon eyes or Byrnes's sign. Right Ear: Hearing normal. Left Ear: Hearing normal. Nose: Nose normal. Right Sinus: No maxillary sinus tenderness or frontal sinus tenderness. Left Sinus: No maxillary sinus tenderness or frontal sinus tenderness. Eyes: Conjunctiva/sclera: Conjunctivae normal. Cardiovascular: Rate and Rhythm: Normal rate. Pulmonary: Effort: Pulmonary effort is normal. Abdominal: Palpations: Abdomen is soft. Musculoskeletal: General: No tenderness. Normal range of motion. Cervical back: Normal range of motion and neck supple. Comments: Big toe with drainage and open wound to the tip of the big toe that appears to show bone exposed with mild drainage, no red streaking Skin: General: Skin is warm and dry. Neurological: General: No focal deficit present. Mental Status: He is alert. Motor: No tremor, atrophy or seizure activity. Gait: Gait normal. Psychiatric: Behavior: Behavior normal. Diagnostic Testing ED Labs Ordered and Reviewed COMPLETE BLOOD COUNT AND DIFFERENTIAL - Abnormal; Notable for the following components: Result Value Ref Range RBC 3.57 (*) 4.20 - 6.00 m/uL Hemoglobin 8.2 (*) 13.0 - 17.0 g/dL Hematocrit 24.0 (*) 39.0 - 51.0 % MCV 67.2 (*) 80.0 - 100.0 fL MCH 23.0 (*) 26.0 - 34.0 pg RDW-CV 21.9 (*) 11.5 - 15.0 % All other components within normal limits COMPREHENSIVE METABOLIC PANEL - Abnormal; Notable for the following components: Albumin 3.6 (*) 3.9 - 4.9 g/dL Alkaline Phosphatase 128 (*) 38 - 113 U/L AST 12 (*) 14 - 40 U/L ALT 8 (*) 10 - 54 U/L Glucose 159 (*) 74 - 99 mg/dL BUN 7 (*) 9 - 24 mg/dL All other components within normal limits SEPSIS LACTATE W/ REFLEX (INITIAL) - Normal C-REACTIVE PROTEIN - Normal GLUCOSE - ED(POC) Procedures ED Course / Clinical Impression Clinical Impressions as of 03/22/241924 Wound infection Osteomyelitis of right foot, unspecified type (HCC) Type 2 diabetes mellitus with hyperglycemia, with long-term current use of insulin (HCC) Anemia, unspecified type MDM / Disposition / Plan The medical record is reviewed.Triage note is reviewed and incorporated.The nursing note is reviewed and consiste (more content not included)... [facility] ED Triage Noteon 03-22-2024 ED Triage Note HNO ID: [id number] Author: CECILIA HENLEY DO Service: Emergency Medicine Author Type: Physician Type: ED Triage Notes Filed: 03/22/2024 17:36 Note Text: ED INTAKE NOTE Patient Name: Berta Jaramillo Service Date: 03/22/24 BRIEF HPI: This is a 58 year old male who presents to the ED with: right great toe with osteo and exposed bone. Podiatry sent in for admission for surgery. No ATBs currently Recent cultures are positive for few pseudomonas and citrobacter BRIEF EXAM: BP 117/64 Pulse 91 Temp (Src) 97.5 (Temporal) Resp 16 Wt 229 lb (103.9kg) SpO2 99% NAD Awake and Alert Non labored breathing INITIAL WORKUP AND DECISION MAKING: Orders Placed This Encounter XR TOE AP/LAT/OBL RT Sepsis Lactate with (1) Reflex CBC with Diff CMP C-REACTIVE PROTEIN (CRP) GLUCOSE (POC) NaCl 0.9% iv flush bag Provider examination performed via virtual platform with assistance from bedside clinician. SIGNATURE: Cecilia Henley DO [facility] Ferritin SerPl-mCncon 2023 Ferritin [Mass/Vol] 16.3 ng/mL Low 30.3-565.7 [facility] Comment on above: Order Comment: Speci men Type: BLOOD SPECIMENOrdering Facility: [facility] Address: [address] [place] [address] Performed By: #### 2 4323-8, 43809-7, 5, 72897-2, 2276-4, 2777-1 ####[facility] LABORATORYIA [id number] [place] [address] [place] HISTORY PHYSICALon HISTORY PHYSICAL HNO ID: [id number] Author: GEOFF FAULKNER APRN.CNP Service: Hospital Medicine Author Type: Nurse Practitioner Type: H&P Filed: 03/23/2024 00:30 Note Text: -- Attestation signed by Star Burrell MD at 03/23/2024 7:43 AM Attending Note I have performed an assessment of the patient and have reviewed the TAHIR note and agree as written. Other additions or changes: As edited Signature: Star Burrell Date: 03/23/2024 Time: 7:42 AM -- DEPARTMENT OF HOSPITAL MEDICINE HISTORY AND PHYSICAL EXAM SERVICE DATE: 03/22/2024 SERVICE TIME: 8:20 PM Primary Care Physician: Rachel Chery MD NIGHT AND WEEKEND COVERAGE: [facility] COVERAGE: Days: [phone], please page attending physician. Nights: [phone], please page [place] Hospital[facility] Night coverage pager [phone]. Subjective CHIEF COMPLAINT: Right foot wound HPI: This is a 58 year old male with a past medical history notable for diabetes mellitus type 2, rheumatoid arthritis on leflunomide, hypertension, anxiety, depression, GERD, and osteomyelitis who presents with right foot wound. According to the patient, he follows as an outpatient with Dr. Peres of podiatry in [place]. He has had issues with a right foot ulceration since about a year ago and at first was using Aquacel to treat it. Unfortunately, it was determined that he would need a partial hallux amputation but the patient was unable to schedule surgery because of outside issues. Was also receiving antibiotics at times but has not had any in about a half a year (Augmentin appears to be his last abx). He also notes that he was supposed to see an outside digital photographer (Dr. Palm) prior to surgery for anemia evaluation, but has not seen him as of yet. Most notably however, the patient has been having worsening of his right foot wound since November even following prescribed dressing changes at home. Describes the toe as appearing black and is having increased skin breakdown as well. As he has severe neuropathy, he notes that he cannot feel extreme pain but knows that the toe is not looking good and feels pressure. He has not tried anything else for management of his toe wound at home. Socially, the patient is an active nicotine user and smokes at least 1-1/2 packs a day and has done so for at least 40 years. He denies alcohol use or recreational drug use however. Furthermore he denies fever/chills, headache, dizziness, changes in his vision/hearing, trouble swallowing, chest pain, shortness of breath, cough, nausea/vomiting, abdominal pain, constipation/diarrhea/sarabjit tochezia, urinary changes, new numbness/tingling, or new swelling. In the emergency room the patient was found to be afebrile and hemodynamically stable on room air. Labs were found to be notable for blood glucose of 159, ALP of 128 but other LFTs normal, CRP of 0.7, hemoglobin of 8.2, WBC of 9.49, and a lactate of 1.8. X-ray of the right foot showed soft tissue swelling with ulceration of the distal great toe. There was noted cortical destruction of the tuft of the great toe consistent with osteomyelitis but joint spaces are maintained with no fractures although there are multiple hammertoes. The patient was given doses of vancomycin/Zosyn and is being admitted under hospital medicine for further management and workup of his right hallux osteomyelitis. PAST MEDICAL HISTORY Diagnosis Date Atopic eczema Benign prostatic hyperplasia with urinary hesitancy Chronic anemia Depression Depression Diabetes mellitus (HCC) Essential hypertension Gastroesophageal reflux disease without esophagitis Generalized anxiety disorder Hypercholesterolemia Neuropathy Osteomyelitis of right foot (HCC) Tobacco use PAST SURGICAL HISTORY Procedure Laterality Date KNEE SURGERY HX Right FAMILY HISTORY Problem Relation Age of Onset Diabetes Mother Diabetes Father Hypertension Father Diabetes Paternal Grandmother Diabetes Paternal Grandfather Anesthesia Problems No Family History Social History Tobacco Use Smoking status: Every Day Current packs/day: 1.00 Average packs/day: 1.5 packs/day for 42.9 years (64.2 ttl pk-yrs) Types: Cigarettes Start date: 1981 Smokeless tobacco: Never Vaping Use Vaping status: Never Used Substance Use Topics Alcohol use: Never Drug use: Never PRIOR TO ADMISSION MEDICATIONS: amitriptyline (ELAVIL) 50 mg tablet, Take 1 tablet by mouth daily at bedtime., Disp: 30 tablet, Rfl: 5 atorvastatin (LIPITOR) 80 mg tablet, Take 1 tablet by mouth once daily., Disp: 30 tablet, Rfl: 5 lisinopril (ZESTRIL) 10 mg tablet, Take 1 tablet by mouth once daily., Disp: 30 tablet, Rfl: 5 metoprolol tartrate, short acting, (LOPRESSOR) 25 mg tablet, Take 1 tablet by mouth two times a day., Disp: 60 tablet, Rfl: 5 (more content not included)... Normal [facility] HbA1c (Bld)on 03-22-2024 Average glucose Estimated from glycated hemoglobin (Bld) [Mass/Vol] 157 mg/dL Normal [facility] Comment on above: Order Comment: David ortega Type: BLOOD SPECIMENOrdering Facility: [facility] Address: [address] [place] [address] Result Comment: eAG: (Estimated average glucose) is a calculated value from HgbA1c and is physician representative of the average blood glucose level in the last 2-3 month period. Performed By: #### 5 5454-3, 95215-5 ####[facility] LABCLIA [id number] [place] [address] [place]#### 20524-3 ####[facility] LABORATORYCLIA [id number] [place] [address] [place] HbA1c (Bld) [Mass fraction] 7.1 % High 4.3-5.6 [facility] Comment on above: Order Comment: David ortega Type: BLOOD SPECIMENOrdering Facility: [facility] Address: [address] [place] [address] Result Comment: A he terozygous hemoglobin variant was possibly detected. Most heterozygous hemoglobin variants do not interfere with this assay. However, interpret this hemoglobin A1c result within the patient's clinical context, as the lifespan of red blood cells may be altered. If identification of a previously unidentified hemoglobin variant is clinically indicated, consider ordering the hemoglobin evaluation cascade test. [place] [employer] guidelines indicate that patients with HgbA1c in the range 5.7-6.4% are at increased risk for development of diabetes, and intervention by lifestyle modification may be beneficial. HgbA1c greater or equal to 6.5% is considered diagnostic of diabetes. Performed By: #### 5 5454-3, 15864-5 ####[facility] LABCLIA [id number] [address] [place]#### 18204-1 ####[facility] LABORATORYCLIA [id number] [address] Iron and Iron binding capaci ty panelon 03-22-2024 Iron [Mass/Vol] 25 ug/dL Low 41-186 [facility] Comment on above: Order Comment: David ortega Type: BLOOD SPECIMENOrdering Facility: [facility] Address: [address] [place] [address] Performed By: #### 2 4323-8, 45630-3, 1987-09, 02062-8, 2275-08, 2776-1 ####[facility] LABORATORYCLIA [id number] [address] Iron binding capacity [Mass/Vol] 265 ug/dL Normal 232-386 [facility] Comment on above: Order Comment: David ortega Type: BLOOD SPECIMENOrdering Facility: [facility] Address: [address] [place] [address] Performed By: #### 2 4323-8, 73657-1, 1987-09, 67261-1, 2275-4, 7-1 ####[facility] LABORATORYCLIA [id number] [place] [address] Iron/TIBC [Molar ratio] 9.4 % Low 15.0-57.0 [facility] Comment on above: Order Comment: Speci men Type: BLOOD SPECIMENOrdering Facility: [facility] Address: [address] [place] [address] Performed By: #### 2 4323-8, 33627-1, 1987-09, 90243-9, 2275-4, 2776-1 ####[facility] LABORATORYCLIA [id number] [address] Phosphate SerPl-mCncon 03-22 Phosphate [Mass/Vol] 3.4 mg/dL Normal 2.7-4.8 [facility] Comment on above: Order Comment: Martini jordan Type: BLOOD SPECIMENOrdering Facility: [facility] Address: [address] [place] [address] Performed By: #### 2 4323-8, 00086-2, 1987-09, , 2275-08, 2776-05 ####[facility] LABORATORYCLIA [id number] [address] Procalcitonin SerPl-mCncon 1 05-22-2023 Procalcitonin [Mass/Vol] ng/mL Normal <0.09 [facility] Comment on above: Order Comment: Martini jordan Type: BLOOD SPECIMENOrdering Facility: [facility] Address: [address] [place] [address] Result Comment: For a guided interpretation of test results, please visit the Change in Procalcitonin Calculator, [email or web address]. Performed By: #### 2 4323-8, 06718-5, 1987-09, 90449-9, 2275-4, 2776-1 ####[facility] LABORATORYCLIA [id number] [address] Retics #on 03-22-2024 Reticulocytes (Bld) [#/Vol] 0.59191 10*3/uL Normal 0.018-0.100 [facility] Comment on above: Order Comment: Speci jordan Type: BLOOD SPECIMENOrdering Facility: [facility] Address: [address] [place] [address] Performed By: #### 5 5454-3, 93527-9 ####[facility] LABCLIA [id number] [address] [place]#### 31408-7 ####[facility]ORATORYCLIA [id number] [address] Reticulocytes (Bld) [#/Vol]o n 03-22-2024 Reticulocytes/100 RBC (Bld) 2.1 % High 0.4-2.0 [facility] Comment on above: Order Comment: Speci men Type: BLOOD SPECIMENOrdering Facility: [facility] Address: [address] [place] [address] Performed By: #### 5 5454-3, 09587-7 ####[facility] LABCLIA [id number] [address]#### [address]3064-3 ####[facility] LABORATORYCLIA [id number] [address] SEPSIS LACTATE W/ REFLEX (IN ITIAL)on 03-22-2024 Lactate [Moles/Vol] 1.8 mmol/L Normal 0.5-2.0 [facility] Comment on above: Order Comment: Speci men Type: BLOOD SPECIMENOrdering Facility: [facility] Address: [address] [place] [address] Performed By: #### S LACTR ####[facility] LABORATORYCLIA [id number] [address] OF [place] XR FOOT 3V AP/LAT/OBL RTon 1 05-22-2023 XR FOOT 3V AP/LAT/OBL RT * * *Final Report* * * DATE OF EXAM: Mar 22 2024 6:05PM MDX 5337 - XR FOOT 3V AP/LAT/OBL RT / PROCEDURE REASON: Osteomyelitis * * * * Physician Interpretation * * * * PROCEDURE: Right foot INDICATION: Osteomyelitis.Right great toe soft tissue swelling TECHNIQUE: XR FOOT 3V AP/LAT/OBL RT COMPARISON: 12/03/2023 FINDINGS: Soft tissue swelling with ulceration of the distal great toe. Cortical destruction of the tuft of the great toe consistent with osteomyelitis. Joint spaces are maintained. No fracture. Multiple hammertoes. IMPRESSION: Osteomyelitis of the 1st distal phalanx Hookman: BRYCE Transcribe Date/Time: Mar 22 2024 6:28P Dictated by : DINA DOWELL MD This examination was interpreted and the report reviewed and electronically signed by: DINA DOWELL MD on Mar 22 2024 6:29PM EST [id number] [facility] 03-13-2024 CNP Telephone (PODIWS) -- BERTA JARAMILLO ([id number]) 1965 M Date Time Provider Department 03/13/24 ALL BARRIENTOSIWLeif During your visit today, we recorded the following information about you: All Barrientos 03/13/2024 8:14 AM Signed I attempted to contact patient to discuss wound culture results. No answer. I left message for patient to contact me DANNY Lyn Matthew 03/13/2024 9:17 AM Signed Spoke with nursing about patient. Found that he is not in the hospital. Can we check to see what patient is thinking? DANNY Lyn Amelia, LPN 03/13/2024 9:27 AM Signed Called patient to gather further information on why he did not present to ED after being advised on 03/09/2024 at office visit.Culture results are in provider would like to speak with patient. No response. Left VM to call back office. STANLEY Joy Matthew 03/14/2024 8:24 AM Signed I attempted to contact patient today to see how he is doing. No answer . I informed him that I want him to call me so we can discuss how things are going. He has pseudomonas growing on culture. If he is not in the hospital, I would highly recommend he go All Barrientos, Nga Saini LPN 03/15/2024 8:57 AM Signed 4th attempt. Called patient to gather further information on why he did not present to ED after being advised on 03/09/2024 at office visit.Culture results are in provider would like to speak with patient. No response. Left VM to call back office. STANLEY Joy Amelia, LPN 03/17/2024 3:35 PM Signed Attempted to call patient to see if patient present to ED and provided results. Patient states that he will not be going to hospital because he wants some one that know what they are doing. Informed patient that his culture came back as pseudomonas and provider would highly advise presenting to ED. Patient states he will not be going to ED. Patient states Tell Mr. Barrientos that I am not happy with him for not operating on me and if something is coming at him its probably me. Patient states he is seeing [facility] in [place] on Wednesday. Nga Villalpando LPN Allergies As of Date: 03/13/2024 (No Known Allergies) Date Reviewed: 03/09/2024 Reviewed by: Nga Villalpando LPN - Fully Assessed Reason for Visit: Results [95] Prescriptions as of 03/17/2024 - amitriptyline (ELAVIL) 50 mg tablet Take 1 tablet by mouth daily at bedtime. - atorvastatin (LIPITOR) 80 mg tablet Take 1 tablet by mouth once daily. - lisinopril (ZESTRIL) 10 mg tablet Take 1 tablet by mouth once daily. - metoprolol tartrate, short acting, (LOPRESSOR) 25 mg tablet Take 1 tablet by mouth two times a day. - pantoprazole DR (PROTONIX) 40 mg tablet Take 1 tablet by mouth once daily. - pregabalin (LYRICA) 225 mg capsule Take 1 capsule by mouth three times a day for 180 days. - busPIRone (BUSPAR) 15 mg tablet Take 1 tablet by mouth three times a day. - ezetimibe (ZETIA) 10 mg tablet Take 1 tablet by mouth once daily. - Diaper,Brief, Adult,Disposable Change at least twice daily - amLODIPine (NORVASC) 5 mg tablet Take 1 tablet by mouth once daily. May also take 1 tablet once daily as needed (For BP over 150/95). - insulin glargine (BASAGLAR KWIKPEN U-100 INSULIN) 100 unit/mL (3 mL) Inject 10 Units subcutaneously daily at bedtime. Will adjust insulin orders as needed and send new RX when dose adjusted - metFORMIN (GLUCOPHAGE) 1,000 mg tablet Take 1,000 mg by mouth two times a day with meals. - insulin aspart (NOVOLOG FLEXPEN U-100 INSULIN SUBCUTANEOUS) Inject 8 Units subcutaneously daily at 6 am. - insulin aspart human (NOVOLOG) 100 unit/ml soln Inject 4 Units subcutaneously two times a day. - insulin aspart (NOVOLOG FLEXPEN U-100 INSULIN SUBCUTANEOUS) Inject 2 Units subcutaneously daily at bedtime. - multivit,calc,mins/iron/fo lic (THERA-M ORAL) Take 1 tablet by mouth daily at 6 am. - loperamide HCl (IMODIUM A-D) 2 mg tab Take 2 mg by mouth every 6 hours as needed. - dulaglutide (TRULICITY) 1.5 mg/0.5 mL pen injector Inject 1.5 mg subcutaneously one time a week. - insulin aspart U-100 (NOVOLOG FLEXPEN U-100 INSULIN) 100 unit/mL (3 mL) USE SLIDING SCALE ONLY. Sliding scale 150=0, 151-200-1 units, 201-250=2 units, 251-300=3 units, 301-350=4 units, 351-400=5 units based on pre meal blood sugar only as needed. - fluticasone (FLONASE) 50 mcg/actuation nasal spray Use 2 Sprays in each nostril once daily as needed for cold/allergy symptoms. Rinse mouth after use. - DUPIXENT SYRINGE 300 mg/2 mL injection Inject 300 mg subcutaneously every 2 weeks. - ascorbic acid, vitamin C, (VITAMIN C) 500 mg tablet Take 1 tablet by mouth once daily. - aspirin 81 mg cap Take 1 Each by mouth once daily. - Insulin Celeste, Disposable, (PEN NEEDLE) 32 gauge x 5/32 Inject 1 Each subcu (more content not included)... Normal [facility] Bacteria Wnd Culton 03-09-20 24 Bacteria identified Cx Nom (Wound) ORGANISM ID: 1 Few Citrobacter koseri ORGANISM ID: 2 Few skin regulo ORGANISM ID: 3 Few Pseudomonas aeruginosa GRAM STAIN: No organisms seen No Polymorphonuclear Leukocytes ORGANISM ID: 1 (CITROBACTER KOSERI) ANTIBIOTIC INTERPRETATION JAUN STATUS REFERENCE RANGE Ampicillin R >=32 F Susceptible <=8 , Intermediate >8 , Resistant >16 Ceftriaxone S <=1 F Susceptible <=1 , Intermediate >1 , Resistant >=4 Cefepime S <=1 F Susceptible <=2 , Susceptible-Dose Dependent >2 , Resistant >=16 Ertapenem S <=0.5 F Susceptible <=0.5 , Intermediate >.5 , Resistant >1 Meropenem S <=0.25 F Susceptible <=1 , Intermediate >1 , Resistant >2 Ampicillin/Sulbact S 4 F Susceptible <=8 , Intermediate >8 , Resistant >16 Piperacillin/Tazobac S <=4 F Susceptible <16 , Susceptible-Dose Dependent >=16 , Resistant >=32 Gentamicin S <=1 F Susceptible <=2 , Intermediate >2 , Resistant >=8 Tobramycin S <=1 F Susceptible <4 , Intermediate >=4 , Resistant >=8 Trimeth sulfameth S <=20 F Susceptible <=40 , Resistant >40 Ciprofloxacin S <=0.25 F Susceptible <0.5 , Intermediate >=.5 , Resistant >=1 ORGANISM ID: 3 (PSEUDOMONAS AERUGINOSA) ANTIBIOTIC INTERPRETATION JAUN STATUS REFERENCE RANGE Cefepime S 4 F Susceptible <=8 , Intermediate >8 , Resistant >16 Meropenem S 2 F Susceptible <=2 , Intermediate >2 , Resistant >4 Piperacillin/Tazobac S 8 F Gentamicin R F Tobramycin NI <=2 F This isolate is intermediate or susceptible to tobramycin. If discrimination between intermediate and susceptible is needed, please call the lab to request additional testing. Ciprofloxacin S <=0.25 F Susceptible <=0.5 , Intermediate >.5 , Resistant >1 Abnormal [facility] Comment on above: Performed By: #### 6 462-6 ####[facility] LABWANDER [id number] [address] OF [facility] CNOVon 03-09-2024 CNOV Office Visit (PODIWS ) -- BERTA JARAMILLO ([id number]) 1965 M Date Time Provider Department 03/09/24 1:45 PM ALL BARRIENTOS During your visit today, we recorded the following information about you: Nga Villalpando LPN 03/09/2024 2:56 PM Signed AMB ROOMING INTAKE FLOWSHEET DATA Pain Pain Level: 2 Pain Location: Toe Description: Sore Duration Units: Months Frequency: Intermittent Intervention/Comfort measure: Relaxation, Reposition Patient presents with: Right Great Toe - Follow Up, Ulcer, Established Patient, Pain Right 2nd Toe - Established Patient, Pain, Ulcer, Follow Up Nga Villalpando LPN All Barrientos 03/09/2024 2:56 PM Signed FOLLOW UP PODIATRIC OFFICE VISIT Chief Complaint: This 58 year old who presents for follow up:right hallux ulceration. Patient presents to clinic for evaluation of right hallux He has ulceration of right hallux that was last evaluated by me in November. We discussed in the past about a partial hallux amputation. He was all set up for surgery in the spring but due to health issues he had to cancel. He was found to be anemic of uncertain etiology and when scheduled for surgery, was not cleared. He was offered admission to [facility] for medical clearance in September and subsequent surgery but he was not able to arrange transportation. I had arranged to have him cleared by hematology but he was not able to make his appointment. One time the provider was out ill. The other scheduled appointments, he had other issues that he had to attend to. He has not followed up since . He is currently applying leatha to the foot. Patient reports some drainage to his toe. He feels the wound is worsening. He states that his right 2nd toenail started lifting. He removed the nail himself and has a sore to the 2nd toe. He does have pain to his right lateral 5th metatarsal. Has history of fracture. Patient smokes 1 pack of cigarettes/day. PAIN EVALUATION 03/09/2024 1327 Pain Level: 2 Pain Location: Toe Description: Sore Duration Units: Months Frequency: Intermittent Intervention/Comfort measure: Relaxation;Reposition Hemoglobin A1C (POCT) Date Value Ref Range Status 11/10/2023 6.9 (A) 4.3 - 5.6 % Final Comment: Location:[facility], [address], [place], [address] Point of care (POC) Hemoglobin A1c (HGBA1C) testing is intended to assess glucose control and provide a management tool for patients known to have diabetes and their healthcare providers. Target HGBA1C levels may depend on specific clinical circumstances. POC HGBA1C is not intended for use as a diagnostic or screening test; laboratory-based testing should be used for diagnostic purposes. The following information is supplemental and may not be applicable to specific diabetes management situations: The POC device general manager road production provides a normal range of 4.2% to 6.5% for the HGBA1C POC test. However, the [place] [employer] guidelines indicate that patients with HGBA1C in the range of 5.7% to 6.4% are at increased risk for development of diabetes and that intervention by lifestyle modification may be beneficial. A HGBA1C level greater than or equal to 6.5% is considered diagnostic of diabetes, pending confirmatory testing. Use of HGBA1C testing to evaluate glucose control may not be appropriate for patients with hemoglobin variants or other conditions (e.g. anemia) that alter red blood cell lifespan. PCP: Rachel Chery MD PAST MEDICAL HISTORY Diagnosis Date Atopic eczema Benign prostatic hyperplasia with urinary hesitancy Chronic anemia Depression Depression Diabetes mellitus (HCC) Essential hypertension Gastroesophageal reflux disease without esophagitis Generalized anxiety disorder Hypercholesterolemia Neuropathy Osteomyelitis of right foot (HCC) Tobacco use Current Outpatient Medications Medication Sig amitriptyline (ELAVIL) 50 mg tablet Take 1 tablet by mouth daily at bedtime. atorvastatin (LIPITOR) 80 mg tablet Take 1 tablet by mouth once daily. lisinopril (ZESTRIL) 10 mg tablet Take 1 tablet by mouth once daily. metoprolol tartrate, short acting, (LOPRESSOR) 25 mg tablet Take 1 tablet by mouth two times a day. pantoprazole DR (PROTONIX) 40 mg tablet Take 1 tablet by mouth once daily. pregabalin (LYRICA) 225 mg capsule Take 1 capsule by mouth three times a day for 180 days. busPIRone (BUSPAR) 15 mg tablet Take 1 tablet by mouth three times a day. ezetimibe (ZETIA) 10 mg tablet Take 1 tablet by mouth once daily. Diaper,Brief, Adult,Disposable Change at least twice daily amLODIPine (NORVASC) 5 mg tablet Take 1 tablet by mouth once daily. May also take 1 tablet once daily as needed (For BP over 150/95). insulin glargine (BASAGLAR KWIKPEN U-100 INSULIN) 100 unit/mL (3 mL) Inject 10 Units subcutaneously daily at bedtime. Will adjust insu (more content not included)... Normal [facility] BERTA JARAMILLO ([id number]) 1965 M Date Time Provider Department 02/29/24 RACHEL CHERY INTMWS During your visit today, we recorded the following information about you: Shania Blakely RN 02/29/2024 3:08 PM Signed Ngoc with [facility] calls with an update. She reports that patient is currently living [place] at [facility]. Patient was found guilty of aggravated menacing but it was dropped to a misdemeanor charge. Patient will have a $100 fine and 90 days to pay it. Ngoc reports that because of having a charge, [place] served him with an eviction notice and he is to be out by March 25, 2024. Patient will be appealing that and the status of that is unknown at this time. APRIL Momin Liza D, MD 02/29/2024 8:58 PM Signed Noted Thanks for update. Allergies As of Date: 02/29/2024 (No Known Allergies) Date Reviewed: 02/18/2024 Reviewed by: Margarita Mireles LPN - Fully Assessed Prescriptions as of 03/01/2024 - amitriptyline (ELAVIL) 50 mg tablet Take 1 tablet by mouth daily at bedtime. - atorvastatin (LIPITOR) 80 mg tablet Take 1 tablet by mouth once daily. - lisinopril (ZESTRIL) 10 mg tablet Take 1 tablet by mouth once daily. - metoprolol tartrate, short acting, (LOPRESSOR) 25 mg tablet Take 1 tablet by mouth two times a day. - pantoprazole DR (PROTONIX) 40 mg tablet Take 1 tablet by mouth once daily. - pregabalin (LYRICA) 225 mg capsule Take 1 capsule by mouth three times a day for 180 days. - busPIRone (BUSPAR) 15 mg tablet Take 1 tablet by mouth three times a day. - ezetimibe (ZETIA) 10 mg tablet Take 1 tablet by mouth once daily. - Diaper,Brief, Adult,Disposable Change at least twice daily - amLODIPine (NORVASC) 5 mg tablet Take 1 tablet by mouth once daily. May also take 1 tablet once daily as needed (For BP over 150/95). - insulin glargine (BASAGLAR KWIKPEN U-100 INSULIN) 100 unit/mL (3 mL) Inject 10 Units subcutaneously daily at bedtime. Will adjust insulin orders as needed and send new RX when dose adjusted - metFORMIN (GLUCOPHAGE) 1,000 mg tablet Take 1,000 mg by mouth two times a day with meals. - insulin aspart (NOVOLOG FLEXPEN U-100 INSULIN SUBCUTANEOUS) Inject 8 Units subcutaneously daily at 6 am. - insulin aspart human (NOVOLOG) 100 unit/ml soln Inject 4 Units subcutaneously two times a day. - insulin aspart (NOVOLOG FLEXPEN U-100 INSULIN SUBCUTANEOUS) Inject 2 Units subcutaneously daily at bedtime. - multivit,calc,mins/iron/fo lic (THERA-M ORAL) Take 1 tablet by mouth daily at 6 am. - loperamide HCl (IMODIUM A-D) 2 mg tab Take 2 mg by mouth every 6 hours as needed. - dulaglutide (TRULICITY) 1.5 mg/0.5 mL pen injector Inject 1.5 mg subcutaneously one time a week. - insulin aspart U-100 (NOVOLOG FLEXPEN U-100 INSULIN)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 IVCON RT CONTRAST: None COMPARISON: 08/19/2023 RESULT: Interval increase in sclerosis at the tuft of the great toe without acute bone destruction seen on the current exam. There is surrounding soft tissue edema. No loculated fluid collection or soft tissue mass seen. Small to moderate first MTP joint effusion. Interval development of a healing oblique fracture at the distal fifth metatarsal. Flexor and extensor tendons appear intact and without significant tenosynovitis. Lisfranc ligament is intact. IMPRESSION: No further acute bone destruction of the great toe to suggest progression of osteomyelitis. Healing distal fifth metatarsal fracture. Hookman: BRYCE Transcribe Date/Time: Dec 07 2023 11:15A Dictated by : SARAH MYRICK MD This examination was interpreted and the report reviewed and electronically signed by: SARAH MYRICK MD on Dec 07 2023 11:21AM EST [id number] Normal [facility] XR Foot - right AP and Later al and obliqueon 12-05-2023 IMPRESSION: Ulceration tuft of the RIGHT great toe with underlying tuft osteomyelitis similar in appearance to radiographs 09/09/2023. Subacute RIGHT 5th metatarsal fracture, new since 09/09/2023. Hookman: BRYCE Transcribe Date/Time: Dec 05 2023 5:57P Dictated by : KYLEIGH STANTON DO This examination was interpreted and the report reviewed and electronically signed by: KYLEIGH STANTON DO on Dec 05 2023 6:03PM [facility] DIVISION OF RADIOLOGY * * *Final Report* * * DATE OF EXAM: Dec 03 2023 11:25AM [id number] - XR FOOT 3V AP/LAT/OBL RT / PROCEDURE REASON: Ulcer of toe of right foot, with fat layer exposed (HCC) * * * * Physician Interpretation * * * * EXAMINATION: XR FOOT 3V AP/LAT/OBL RT PATIENT/TECHNOLOGIST PROVIDED HISTORY: infection in right grt toe since last. follo up for infection CLINICAL INFORMATION: 58 years old Male with Ulcer of toe of right foot, with fat layer exposed. Osteomyelitis of right hallux distal tuft. Evaluate for proximal progression. TECHNIQUE: XR FOOT 3V AP/LAT/OBL RT Laterality: RIGHT Number of different views (projections): 3 COMPARISON: Radiographs 09/09/2023, 08/19/2023, 07/15/2023, 07/01/2023 RESULT: Ulceration tuft of the great toe with similar appearance of underlying cortical irregularity at the tuft of the great toe distal phalanx consistent with osteomyelitis since radiographs 09/09/2023. Subacute mildly displaced and mildly impacted oblique fracture of the distal 5th metatarsal with callus formation, new since 09/09/2023. Osteopenia. Joint spaces appear maintained. Hammertoe deformities. Small posterior calcaneal spur. DIVISION OF RADIOLOGY Provider, [facility] - 12/05/2023 * * *Final Report* * * DATE OF EXAM: Dec 03 2023 11:25AM [id number] - XR FOOT 3V AP/LAT/OBL RT / PROCEDURE REASON: Ulcer of toe of right foot, with fat layer exposed (HCC) * * * * Physician Interpretation * * * * EXAMINATION: XR FOOT 3V AP/LAT/OBL RT PATIENT/TECHNOLOGIST PROVIDED HISTORY: infection in right grt toe since last. Mar. follo up for infection CLINICAL INFORMATION: 58 years old Male with Ulcer of toe of right foot, with fat layer exposed. Osteomyelitis of right hallux distal tuft. Evaluate for proximal progression. TECHNIQUE: XR FOOT 3V AP/LAT/OBL RT Laterality: RIGHT Number of different views (projections): 3 COMPARISON: Radiographs 09/09/2023, 08/19/2023, 07/15/2023, 07/01/2023 RESULT: Ulceration tuft of the great toe with similar appearance of underlying cortical irregularity at the tuft of the great toe distal phalanx consistent with osteomyelitis since radiographs 09/09/2023. Subacute mildly displaced and mildly impacted oblique fracture of the distal 5th metatarsal with callus formation, new since 09/09/2023. Osteopenia. Joint spaces appear maintained. Hammertoe deformities. Small posterior calcaneal spur. IMPRESSION IMPRESSION: Ulceration tuft of the RIGHT great toe with underlying tuft osteomyelitis similar in appearance to radiographs 09/09/2023. Subacute RIGHT 5th metatarsal fracture, new since 09/09/2023. Hookman: PSCBekah Transcribe Date/Time: Dec 05 2023 5:57P Dictated by : KYLEIGH STANTON DO This examination was interpreted and the report reviewed and electronically signed by: KYLEIGH STANTON DO on Dec 05 2023 6:03PM EST [facility] XR Foot - right AP and Later al and obliqueOrdered By: Ccf Provider on 12-05-2023 [facility] CNOVon 12-03-2023 CNOV Office Visit (PODIWS ) -- BERTA JARAMILLO ([id number]) 1965 M Date Time Provider Department 12/03/23 10:30 AM ALL BARRIENTOS PODIWS During your visit today, we recorded the following information about you: Franky Morgan, APRIL 12/06/2023 12:59 PM Signed Patient presents with: Right Foot - Established Patient, Follow Up, Diabetic Foot Ulcer Patient presents for right foot/toe ulcer follow up. States that he has some pain if he presses down on his foot. Open area to right big toe tip, drainage to dressing noted. Wound edges white. STEVEN 10/25/23 All Barrientos 12/06/2023 12:59 PM Signed FOLLOW UP PODIATRIC OFFICE VISIT Chief Complaint: This 58 year old who presents for follow up:right hallux ulceration Patient presents to clinic for follow-up right hallux ulceration. Patient has not been seen since 10/25/23. Had other issues going on that he needed to address Applying aquacel to the wound. States that the wound healed over the last month but has since returned. Applied santyl to the wound yesterday. PAIN EVALUATION No data found in the last 1 encounters. Hemoglobin A1C (POCT) Date Value Ref Range Status 11/10/2023 6.9 (A) 4.3 - 5.6 % Final Comment: Location:[facility], [address], [place], [address] Point of care (POC) Hemoglobin A1c (HGBA1C) testing is intended to assess glucose control and provide a management tool for patients known to have diabetes and their healthcare providers. Target HGBA1C levels may depend on specific clinical circumstances. POC HGBA1C is not intended for use as a diagnostic or screening test; laboratory-based testing should be used for diagnostic purposes. The following information is supplemental and may not be applicable to specific diabetes management situations: The POC device general manager road production provides a normal range of 4.2% to 6.5% for the HGBA1C POC test. However, the [place] [employer] guidelines indicate that patients with HGBA1C in the range of 5.7% to 6.4% are at increased risk for development of diabetes and that intervention by lifestyle modification may be beneficial. A HGBA1C level greater than or equal to 6.5% is considered diagnostic of diabetes, pending confirmatory testing. Use of HGBA1C testing to evaluate glucose control may not be appropriate for patients with hemoglobin variants or other conditions (e.g. anemia) that alter red blood cell lifespan. PCP: Rachel Chery MD PAST MEDICAL HISTORY Diagnosis Date Atopic eczema Benign prostatic hyperplasia with urinary hesitancy Chronic anemia Depression Depression Diabetes mellitus (HCC) Essential hypertension Gastroesophageal reflux disease without esophagitis Generalized anxiety disorder Hypercholesterolemia Neuropathy Osteomyelitis of right foot (HCC) Tobacco use Current Outpatient Medications Medication Sig pregabalin (LYRICA) 225 mg capsule Take 1 capsule by mouth three times a day for 90 days. amLODIPine (NORVASC) 5 mg tablet Take 1 tablet by mouth once daily. May also take 1 tablet once daily as needed (For BP over 150/95). insulin glargine (BASAGLAR KWIKPEN U-100 INSULIN) 100 unit/mL (3 mL) Inject 10 Units subcutaneously daily at bedtime. Will adjust insulin orders as needed and send new RX when dose adjusted metFORMIN (GLUCOPHAGE) 1,000 mg tablet Take 1,000 mg by mouth two times a day with meals. insulin aspart (NOVOLOG FLEXPEN U-100 INSULIN SUBCUTANEOUS) Inject 8 Units subcutaneously daily at 6 am. insulin aspart human (NOVOLOG) 100 unit/ml soln Inject 4 Units subcutaneously two times a day. insulin aspart (NOVOLOG FLEXPEN U-100 INSULIN SUBCUTANEOUS) Inject 2 Units subcutaneously daily at bedtime. multivit,calc,mins/iron/fo lic (THERA-M ORAL) Take 1 tablet by mouth daily at 6 am. loperamide HCl (IMODIUM A-D) 2 mg tab Take 2 mg by mouth every 6 hours as needed. dulaglutide (TRULICITY) 1.5 mg/0.5 mL pen injector Inject 1.5 mg subcutaneously one time a week. (Patient taking differently: Inject 1.7 mL subcutaneously one time a week.) insulin aspart U-100 (NOVOLOG FLEXPEN U-100 INSULIN) 100 unit/mL (3 mL) USE SLIDING SCALE ONLY. Sliding scale 150=0, 151-200-1 units, 201-250=2 units, 251-300=3 units, 301-350=4 units, 351-400=5 units based on pre meal blood sugar only as needed. fluticasone (FLONASE) 50 mcg/actuation nasal spray Use 2 Sprays in each nostril once daily as needed for cold/allergy symptoms. Rinse mouth after use. DUPIXENT SYRINGE 300 mg/2 mL injection Inject 300 mg subcutaneously every 2 weeks. busPIRone (BUSPAR) 5 mg tablet Take 1 tablet by mouth three times a day. (Patient taking differently: Take 10 mg by mouth three times a day.) ascorbic acid, vitamin C, (VITAMIN C) 500 mg tablet Take 1 tablet by mouth once daily. aspirin 81 mg cap Take 1 Each by mouth once daily. sertraline (ZOLOFT) 100 mg tablet Take (more content not included)... Normal [facility] XR FOOT 3V AP/LAT/OBL RTon 0 12-03-2023 XR FOOT 3V AP/LAT/OBL RT * * *Final Report* * * DATE OF EXAM: Dec 03 2023 11:25AM [id number] - XR FOOT 3V AP/LAT/OBL RT / PROCEDURE REASON: Ulcer of toe of right foot, with fat layer exposed ([facility]) * * * * Physician Interpretation * * * * EXAMINATION: XR FOOT 3V AP/LAT/OBL RT PATIENT/TECHNOLOGIST PROVIDED HISTORY: infection in right grt toe since last. follo up for infection CLINICAL INFORMATION: 58 years old Male with Ulcer of toe of right foot, with fat layer exposed. Osteomyelitis of right hallux distal tuft. Evaluate for proximal progression. TECHNIQUE: XR FOOT 3V AP/LAT/OBL RT Laterality: RIGHT Number of different views (projections): 3 COMPARISON: Radiographs 09/09/2023, 08/19/2023, 07/15/2023, 07/01/2023 RESULT: Ulceration tuft of the great toe with similar appearance of underlying cortical irregularity at the tuft of the great toe distal phalanx consistent with osteomyelitis since radiographs 09/09/2023. Subacute mildly displaced and mildly impacted oblique fracture of the distal 5th metatarsal with callus formation, new since 09/09/2023. Osteopenia. Joint spaces appear maintained. Hammertoe deformities. Small posterior calcaneal spur. IMPRESSION: Ulceration tuft of the RIGHT great toe with underlying tuft osteomyelitis similar in appearance to radiographs 09/09/2023. Subacute RIGHT 5th metatarsal fracture, new since 09/09/2023. Hookman: BRYCE Transcribe Date/Time: Dec 05 2023 5:57P Dictated by : KYLEIGH STANTON DO This examination was interpreted and the report reviewed and electronically signed by: KYLEIGH STANTON DO on Dec 05 2023 6:03PM EST [id number] Normal [facility] XR Foot - right AP and Later al and obliqueon 12-03-2023 Radiology Study observation (narrative) [facility] Loree 11-24-2023 CNPN Telephone (INTMWS) -- BERTA JARAMILLO ([id number]) 1965 M Date Time Provider Department 11/24/23 RACHEL CHERY During your visit today, we recorded the following information about you: Fariba Corrigan LPN 11/24/2023 10:23 AM Signed Senait from [facility] calling needs an order for the patient since he was seen yesterday and PCP had discontinued his Amlodipine 10 mg and changed Amlodipine order to 5 mg daily and additional 5 mg if blood pressure is over 150/95. She needs that in an order and order to do blood pressure checks ? many times daily on the patient. Fax orders to [phone]. She said the after visit summary is not acceptable. Please advise Teresa Griffin APRN.M1 [employer] 11/24/2023 3:10 PM Signed Communication order printed, please fax. Alejandra Montalvo LPN 11/24/2023 3:26 PM Signed Order has been faxed. Allergies As of Date: 11/24/2023 (No Known Allergies) Date Reviewed: 11/23/2023 Reviewed by: Margarita Mireles LPN - Fully Assessed Reason for Visit: Orders [681] Primary Visit Diagnosis:Primary hypertension [I10] Order(s):AMBULATORY NURSING COMMUNICATION ORDER [[id number]] Order #: [id number]: [id number] Prescriptions as of 11/24/2023 - amLODIPine (NORVASC) 5 mg tablet Take 1 tablet by mouth once daily. May also take 1 tablet once daily as needed (For BP over 150/95). - insulin glargine (BASAGLAR KWIKPEN U-100 INSULIN) 100 unit/mL (3 mL) Inject 10 Units subcutaneously daily at bedtime. Will adjust insulin orders as needed and send new RX when dose adjusted - metFORMIN (GLUCOPHAGE) 1,000 mg tablet Take 1,000 mg by mouth two times a day with meals. - insulin aspart (NOVOLOG FLEXPEN U-100 INSULIN SUBCUTANEOUS) Inject 8 Units subcutaneously daily at 6 am. - insulin aspart human (NOVOLOG) 100 unit/ml soln Inject 4 Units subcutaneously two times a day. - insulin aspart (NOVOLOG FLEXPEN U-100 INSULIN SUBCUTANEOUS) Inject 2 Units subcutaneously daily at bedtime. - multivit,calc,mins/iron/fo lic (THERA-M ORAL) Take 1 tablet by mouth daily at 6 am. - loperamide HCl (IMODIUM A-D) 2 mg tab Take 2 mg by mouth every 6 hours as needed. - dulaglutide (TRULICITY) 1.5 mg/0.5 mL pen injector Inject 1.5 mg subcutaneously one time a week. - insulin aspart U-100 (NOVOLOG FLEXPEN U-100 INSULIN) 100 unit/mL (3 mL) USE SLIDING SCALE ONLY. Sliding scale 150=0, 151-200-1 units, 201-250=2 units, 251-300=3 units, 301-350=4 units, 351-400=5 units based on pre meal blood sugar only as needed. - fluticasone (FLONASE) 50 mcg/actuation nasal spray Use 2 Sprays in each nostril once daily as needed for cold/allergy symptoms. Rinse mouth after use. - pregabalin (LYRICA) 225 mg capsule Take 1 capsule by mouth three times a day for 90 days. - DUPIXENT SYRINGE 300 mg/2 mL injection Inject 300 mg subcutaneously every 2 weeks. - busPIRone (BUSPAR) 5 mg tablet Take 1 tablet by mouth three times a day. - ascorbic acid, vitamin C, (VITAMIN C) 500 mg tablet Take 1 tablet by mouth once daily. - aspirin 81 mg cap Take 1 Each by mouth once daily. - sertraline (ZOLOFT) 100 mg tablet Take 1.5 tablets by mouth once daily. - Insulin Celeste, Disposable, (PEN NEEDLE) 32 gauge x 5/32 Inject 1 Each subcutaneously every 24 hours. Give with each insulin administration. - blood sugar diagnostic (BLOOD GLUCOSE TEST) test strip Test blood sugar(s) 4 times daily and PRN. Dx: Type 2 DM - Controlled E11.9 Insulin: Yes - Lancets lancets Test blood sugar(s) 4 times daily and prn. Dx: Type 2 DM - Controlled E11.9 Insulin: Yes - alcohol swabs Apply 1 Each to affected area four times daily. - Blood-Glucose Meter 1 Each four times daily. - Cholecalciferol, Vitamin D3, 125 mcg (5,000 unit) cap Take 1 tab daily with food. - melatonin 10 mg cap Take 1 capsule by mouth daily at bedtime. - Blood-Glucose Meter,Continuous (DEXCOM G7 COTTON WEIGHER) [facility] Dispense one chief innovation officer kit. USE FOR CONTINUOUS GLUCOSE MONITORING. MULTIPLE INSULIN INJECTIONS. E11.9 - Blood-Glucose Sensor (DEXCOM G7 SENSOR) kimberly CHANGE SENSOR EVERY 10 days. USE FOR CONTINUOUS GLUCOSE MONITORING. MULTIPLE INSULIN INJECTIONS. E11.9 - cyanocobalamin (VITAMIN B-12) 1,000 mcg tab Take 1 tablet by mouth once daily. - ondansetron orally disintegrating (ZOFRAN ODT) 4 mg disintegrating tablet Take 4 mg by mouth every 8 hours as needed for nausea/vomiting. - collagenase (SANTYL) ointment Apply to affected area once daily. APPLY TO AFFECTED AREA - amitriptyline (ELAVIL) 50 mg tablet Take 1 tablet by mouth daily at bedtime. - buPROPion SR (WELLBUTRIN SR) 150 mg 12 hr tablet Take 1 tablet by mouth two times a day. - tamsulosin (FLOMAX) 0.4 mg Take 2 capsules by mouth once daily. - sucralfate (CARAFATE) 1 gram tablet Take 1 tablet by mouth four times daily. - pantoprazole DR (PROTONIX) 40 mg tablet Take 1 tablet by mouth once daily (more content not included)... Normal [facility] CNOVon 11-23-2023 CNOV Office Visit (INTMWS ) -- BERTA JARAMILLO ([id number]) 1965 M Date Time Provider Department 11/23/23 2:00 PM RACHEL CHERY INTMWS During your visit today, we recorded the following information about you: Temperature Pulse Respiration Blood pressure 96.7 degrees 92/minute 18/minute 94/56 Weight 104.1 kg Olivia Breen 11/23/2023 3:34 PM Signed 0 Rachel Chery MD 11/23/2023 3:34 PM Signed This note was created using NoteWriter. Subjective Berta Jaramillo is a 58 year old male. Patient presents with: F/U 6 months SUBJECTIVE: Berta Jaramillo is a 58 year old year old gentleman here today for 6 month follow up appointment for review of medical conditions. Just eating 1 meal daily since after eating feels like throwing up. Carafate helps--taking at night time when eats. Eats late at night--cooks for self. Off antibiotics per Dr. Barrientos. Wonders if contributed to nausea and vomiting issues. Sugars up over 300s now that Levemir was stopped complete.yet. Was taking it just 3 time a week before stopped it. Was skipping doses when sugar dropped to 60s.. Tolerating Trulicity. Also using SSI. Noted BP has been getting lower. Mostly drinking coffee--2 a day. A Pepsi at night (regular). Pees maybe twice a day. Has been slowly losing weight. Pain right hip--hurts all night. Hurts to move it to get out of bed then pain resolves. Lateral hip. Finally got motorized wheelchair. Can get around more and get in and out of chair and bed. PAST MEDICAL HISTORY Diagnosis Date Atopic eczema Benign prostatic hyperplasia with urinary hesitancy Chronic anemia Depression Depression Diabetes mellitus (HCC) Essential hypertension Gastroesophageal reflux disease without esophagitis Generalized anxiety disorder Hypercholesterolemia Neuropathy Osteomyelitis of right foot (HCC) Tobacco use Current Outpatient Medications Medication Sig busPIRone (BUSPAR) 5 mg tablet Take 1 tablet by mouth three times a day. sucralfate (CARAFATE) 1 gram tablet Take 1 tablet by mouth four times daily. leflunomide (ARAVA) 10 mg tablet Take 1 tablet by mouth once daily. insulin glargine (BASAGLAR KWIKPEN U-100 INSULIN) 100 unit/mL (3 mL) Inject 16 units once daily E11.9--This was stopped when saw Rossy Martinez (was taking 40 units about 3 days per week metFORMIN ER (GLUCOPHAGE XR) 500 mg 24 hr tablet Take 2 tabs with breakfast, 2 tabs with dinner dulaglutide (TRULICITY) 1.5 mg/0.5 mL pen injector Inject 1.5 mg subcutaneously one time a week. insulin aspart U-100 (NOVOLOG FLEXPEN U-100 INSULIN) 100 unit/mL (3 mL) USE SLIDING SCALE ONLY. Sliding scale 150=0, 151-200-1 units, 201-250=2 units, 251-300=3 units, 301-350=4 units, 351-400=5 units based on pre meal blood sugar only as needed. fluticasone (FLONASE) 50 mcg/actuation nasal spray Use 2 Sprays in each nostril once daily as needed for cold/allergy symptoms. Rinse mouth after use. pregabalin (LYRICA) 225 mg capsule Take 1 capsule by mouth three times a day for 90 days. DUPIXENT SYRINGE 300 mg/2 mL injection Inject 300 mg subcutaneously every 2 weeks. ascorbic acid, vitamin C, (VITAMIN C) 500 mg tablet Take 1 tablet by mouth once daily. aspirin 81 mg cap Take 1 Each by mouth once daily. sertraline (ZOLOFT) 100 mg tablet Take 1.5 tablets by mouth once daily. Insulin Celeste, Disposable, (PEN NEEDLE) 32 gauge x 5/32 Inject 1 Each subcutaneously every 24 hours. Give with each insulin administration. blood sugar diagnostic (BLOOD GLUCOSE TEST) test strip Test blood sugar(s) 4 times daily and PRN. Dx: Type 2 DM - Controlled E11.9 Insulin: Yes Lancets lancets Test blood sugar(s) 4 times daily and prn. Dx: Type 2 DM - Controlled E11.9 Insulin: Yes alcohol swabs Apply 1 Each to affected area four times daily. Blood-Glucose Meter 1 Each four times daily. Cholecalciferol, Vitamin D3, 125 mcg (5,000 unit) cap Take 1 tab daily with food. melatonin 10 mg cap Take 1 capsule by mouth daily at bedtime. Blood-Glucose Meter,Continuous (DEXCOM G7 COTTON WEIGHER) [facility] Dispense one chief innovation officer kit. USE FOR CONTINUOUS GLUCOSE MONITORING. MULTIPLE INSULIN INJECTIONS. E11.9 Blood-Glucose Sensor (DEXCOM G7 SENSOR) kimberly CHANGE SENSOR EVERY 10 days. USE FOR CONTINUOUS GLUCOSE MONITORING. MULTIPLE INSULIN INJECTIONS. E11.9 cyanocobalamin (VITAMIN B-12) 1,000 mcg tab Take 1 tablet by mouth once daily. (Patient not taking: Reported on 09/13/2023) ondansetron orally disintegrating (ZOFRAN ODT) 4 mg disintegrating tablet Take 4 mg by mouth every 8 hours as needed for nausea/vomiting. collagenase (SANTYL) ointment Apply to affected area once daily. APPLY TO AFFECTED AREA (Patient not taking: Reported on 09/13/2023) amitriptyline (ELAVIL) 50 mg tablet Take 1 tablet by mouth daily at bedtime. buPROPion SR (WELLBUTRIN SR) 150 mg 12 hr tablet Take 1 tablet by mouth two (more content not included)... Normal [facility] 11-22-2023 DAWITN Telephone (ENDIMT) -- CLINTBERTA ([id number]) 1965 M Date Time Provider Department 11/22/23 CORAL MARTINEZ During your visit today, we recorded the following information about you: Emily Collins LPN 11/22/2023 10:19 AM Signed Patient called, verified name and date of , regarding steven 11/10/[address] Martinez advised him to stop Levemir, per office note LEVEMIR 40 units pt refused for the past 4 months. Patient states he would like to start Levemir back due to blood sugar being 262 or higher since stopping medication. Please review and advise, number verified. Emily Collins LPN November 22, 2023 10:18 AM Coral Martinez APRN.DAWIT 11/22/2023 11:55 AM Signed Patient wants to restart his basal, however, would need blood sugars based on his not taking basal insulin in order to gauge starting dose. Please call AL facility and obtain the patient daily blood sugars Thank you! Allan Breaux RN 11/22/2023 1:21 PM Signed Called [facility] where Pt resides, to request blood sugar log be faxed over for Coral Martinez CNP to review. Allan Breaux RN November 22, 2023 1:21 PM Allan Breaux RN 11/22/2023 2:07 PM Signed DATE 06/27 06/28 06/29 06/30 07/01 07/02 07/03 07/04 07/05 07/06 07/07 07/08 AM 199 226 213 177 185 262 224 224 203 257 Noon 101 176 178 185 156 182 142 142 234 308 PM 226 184 188 137 172 184 146 146 209 209 Blood sugars above as reported by fax received from assisted living. Report in scanned documents. Please review and advise. Allan Breaux RN November 22, 2023 2:07 PM Coral Martinez APRN.CNP 11/23/2023 10:16 AM Signed I will start him back on 16 units of BASAL insulin as based on his blood sugar. Please notify the AL facility. Thank you! Patient's request for medication is as follows Requested Prescriptions Signed Prescriptions Disp Refills insulin glargine (BASAGLAR KWIKPEN U-100 INSULIN) 100 unit/mL (3 mL) 41 mL 3 Sig: Inject 16 units once daily E11.9 Authorizing Provider: CORAL MARTINEZ Order entered - please phone pharmacy and notify patient. GRACIELA Barajas Dianne C, APRN.CNP 11/23/2023 10:16 AM Signed Addended by: CORAL MARTINEZ on: 11/23/2023 10:16 AM Modules accepted: Allan Sierra RN 11/23/2023 2:26 PM Signed Nurse at [facility] notified of below notation per Coral Martinez CNP; she voices understanding. Notified her that Rx has already been sent to [facility]. Allan Breaux RN November 23, 2023 2:26 PM Allergies As of Date: 11/22/2023 (No Known Allergies) Date Reviewed: 11/10/2023 Reviewed by: Cecilia Harkins MA - Fully Assessed Reason for Visit: Medication Problem [65] Cmt: High blood sugar Order(s):insulin glargine (BASAGLAR KWIKPEN U-100 INSULIN) 100 unit/mL (3 mL)Inject 16 units once daily E11.9Disp: 41 mLRfl: 3 Prescriptions as of 11/23/2023 - insulin glargine (BASAGLAR KWIKPEN U-100 INSULIN) 100 unit/mL (3 mL) Inject 16 units once daily E11.9 - metFORMIN ER (GLUCOPHAGE XR) 500 mg 24 hr tablet Take 2 tabs with breakfast, 2 tabs with dinner - dulaglutide (TRULICITY) 1.5 mg/0.5 mL pen injector Inject 1.5 mg subcutaneously one time a week. - insulin aspart U-100 (NOVOLOG FLEXPEN U-100 INSULIN) 100 unit/mL (3 mL) USE SLIDING SCALE ONLY. Sliding scale 150=0, 151-200-1 units, 201-250=2 units, 251-300=3 units, 301-350=4 units, 351-400=5 units based on pre meal blood sugar only as needed. - fluticasone (FLONASE) 50 mcg/actuation nasal spray Use 2 Sprays in each nostril once daily as needed for cold/allergy symptoms. Rinse mouth after use. - pregabalin (LYRICA) 225 mg capsule Take 1 capsule by mouth three times a day for 90 days. - DUPIXENT SYRINGE 300 mg/2 mL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 root abscess formation. SCALP/REMAINING SOFT TISSUES: Unremarkable. ASPECTS Score for Acute Strokes, if applicable: 10 CT/Brain/Head without Contrast IMPRESSION: Age-related changes as above, without evidence of acute intracranial hemorrhage in this noncontrast head CT. Bilateral maxillary dental root lucencies consistent with dental root abscess formation. Sinus disease. Electronically Signed: Jayson Calderon MD at 22:27 EDT , CC: Dr. Kurtis Cross DO; Dr. Rachel Chery MD [place]: Signed Normal [facility] CBC W/Diff, Automatedon 11-0 -2022 Absolute Lymph 2.72 X10 3/uL Normal 0.83-4.51 [facility] Comment on above: Performed By: #### L 501.4020, L100.0100, L500.4050, L501.2450 #### [facility] Laboratory [address] [place], [address] Absolute Neut 6.2 X10 3/uL Normal 2.0-7.7 [facility] Comment on above: Performed By: #### L 501.4020, L100.0100, L500.4050, L501.2450 #### [facility] [address] [place], [address] Basophils/100 WBC (Bld) 0.6 % Normal 0-1 [facility] Comment on above: Performed By: #### L 501.4020, L100.0100, L500.4050, L501.2450 #### [facility] [address] [place], [address] Eosinophils/100 WBC (Bld) 0.6 % Normal 0-5 [facility] Comment on above: Performed By: #### L 501.4020, L100.0100, L500.4050, L501.2450 #### [facility] [address] [place], [address] Erythrocyte distribution width (RBC) [Ratio] 20.0 % High 11.6-14.6 [facility] Comment on above: Performed By: #### L 501.4020, L100.0100, L500.4050, L501.2450 #### [facility] [address] [place], [address] Hematocrit (Bld) [Volume fraction] 36.5 % Low 40-54 [facility] Comment on above: Performed By: #### L 501.4020, L100.0100, L500.4050, L501.2450 #### [facility] [address] [place], [address] Hemoglobin (Bld) [Mass/Vol] 12.4 g/dL Low 13.0-16.5 [facility] Comment on above: Performed By: #### L 501.4020, L100.0100, L500.4050, L501.2450 #### [facility] [address] [place], [address] IG% 0.300 Normal 0.0-0.9 [facility] Comment on above: Result Comment: IG% - Immature Granulocytes (promyelocytes, myelocytes and metamyelocytes) > 1% indicates that a LEFT SHIFT is Present. Performed By: #### L 501.4020, L100.0100, L500.4050, L501.2450 #### [facility] [address] [place], [address] Lymphocytes/100 WBC (Bld) 27.7 % Normal 19-41 [facility] Comment on above: Performed By: #### L 501.4020, L100.0100, L500.4050, L501.2450 #### [facility] [address] [place], [address] MCH (RBC) [Entitic mass] 24.0 pg Low 27.0-32.0 [facility] Comment on above: Performed By: #### L 501.4020, L100.0100, L500.4050, L501.2450 #### [facility] [address] [place], [address] MCHC (RBC) [Mass/Vol] 34.0 g/dL Normal 32-36 [facility] Comment on above: Performed By: #### L 501.4020, L100.0100, L500.4050, L501.2450 #### [facility] [address] [place], [address] MCV (RBC) [Entitic vol] 70.6 fL Low 80-94 [facility] Comment on above: Performed By: #### L 501.4020, L100.0100, L500.4050, L501.2450 #### [facility] [address] [place], [address] Monocytes/100 WBC (Bld) 7.7 % Normal 0-10 [facility] Comment on above: Performed By: #### L 501.4020, L100.0100, L500.4050, L501.2450 #### [facility] [address] [place], [address] Neutrophils/100 WBC (Bld) 63.1 % Normal 47-70 [facility] Comment on above: Performed By: #### L 501.4020, L100.0100, L500.4050, L501.2450 #### [facility] [address] [place], [address] Nucleated RBC (Bld) [#/Vol] 0 10*3/uL Normal 0-5 [facility] Comment on above: Performed By: #### L 501.4020, L100.0100, L500.4050, L501.2450 #### [facility] [address] [place], [address] Platelet mean volume (Bld) [Entitic vol] 10.0 fL Normal 6.2-12.0 [facility] Comment on above: Performed By: #### L 501.4020, L100.0100, L500.4050, L501.2450 #### [facility] [address] [place], [address] Platelets (Bld) [#/Vol] 303 10*3/uL Normal 150-450 [facility] Comment on above: Performed By: #### L 501.4020, L100.0100, L500.4050, L501.2450 #### [facility] [address] [place], [address] RBC (Bld) [#/Vol] 5.17 10*6/uL Normal 4.6-6.[address] [facility] Comment on above: Performed By: #### L 501.4020, L100.0100, L500.4050, L501.2450 #### [facility] [address] [place], [address] RDW SD 48.9 fl High 35.1-43.9 [facility] Comment on above: Performed By: #### L 501.4020, L100.0100, L500.4050, L501.2450 #### [facility] [address] [place], [address] WBC (Bld) [#/Vol] 9.8 10*3/uL Normal 4.4-11.0 [facility] Comment on above: Performed By: #### L 501.4020, L100.0100, L500.4050, L501.2450 #### [facility] [address] [place], [address] Chest 1 View (Portable)on Chest 1 View (Portable) [facility] Imaging Services [address] [place] [address] Chest 1 View (Portable) MR#: [id number] Acct: [id number] Name: BERTA JARAMILLO Rep #: [id number] : 1965 M 57 From: Jayson Calderon MD PCP: Dr. Rachel Chery MD Status: REG ER Study: Chest 1 View (Portable) Date of Exam: 03/18/23 Exam# [id number] Ordering Dr: Kurtis Cross DO [id number] INDICATION: chest pain EXAMINATION/TECHNIQUE: X-RAY - XR Chest 1 View COMPARISON: Chest radiograph 04/10/2022. Findings: Single frontal view of the chest. LUNG PARENCHYMA: Low lung volumes with hazy patchy bibasilar airspace disease. PLEURA: No pleural effusion. No pneumothorax. HEART/GREAT VESSELS: Cardiomediastinal silhouette is unremarkable. BONES: Osseous structures are unremarkable for age. RAD/Chest 1 View (Portable) IMPRESSION: Low lung volumes with hazy patchy bibasilar airspace disease, to include atelectasis versus pneumonia. Recommend follow-up to resolution. Electronically Signed: Jayson Calderon MD at 21:43 EDT , CC: Dr. Kurtis Cross DO; Dr. Rachel Chery MD [place]: Signed Normal [facility] Comprehensive Metabolic Prof ilon 03-18-2023 Albumin [Mass/Vol] 3.7 g/dL Normal 3.2-5.0 [facility] Comment on above: Order Comment: 'TROP ' Serial specimen #1, #2 or #3: 1 Performed By: #### L 501.4020, L100.0100, L500.4050, L501.2450 #### [facility] [address] [place], [address] Albumin/Globulin [Mass ratio] 0.8 {ratio} Low 0.9-2.4 [facility] Comment on above: Order Comment: 'TROP ' Serial specimen #1, #2 or #3: 1 Performed By: #### L 501.4020, L100.0100, L500.4050, L501.2450 #### [facility] [address] [place], [address] ALK P 131 U/L High 45-117 [facility] Comment on above: Order Comment: 'TROP ' Serial specimen #1, #2 or #3: 1 Performed By: #### L 501.4020, L100.0100, L500.4050, L501.2450 #### [facility] [address] [place], [address] ALT [Catalytic activity/Vol] 22 U/L Normal 16-61 [facility] Comment on above: Order Comment: 'TROP ' Serial specimen #1, #2 or #3: 1 Performed By: #### L 501.4020, L100.0100, L500.4050, L501.2450 #### [facility] [address] [place], [address] AST [Catalytic activity/Vol] 10 U/L Low 15-37 [facility] Comment on above: Order Comment: 'TROP ' Serial specimen #1, #2 or #3: 1 Performed By: #### L 501.4020, L100.0100, L500.4050, L501.2450 #### [facility] [address] [place], [address] Bilirubin [Mass/Vol] 0.40 mg/dL Normal 0.20-1.00 [facility] Comment on above: Order Comment: 'TROP ' Serial specimen #1, #2 or #3: 1 Result Comment: For patients on eltrombopag therapy, use of Dimension [place] TBIL is not recommended. Performed By: #### L 501.4020, L100.0100, L500.4050, L501.2450 #### [facility] [address] [place], [address] BUN/CRE 13.2 RATIO Normal 10-20 [facility] Comment on above: Order Comment: 'TROP ' Serial specimen #1, #2 or #3: 1 Performed By: #### L 501.4020, L100.0100, L500.4050, L501.2450 #### [facility] [address] [place], [address] CA,Total 9.1 mg/dL Normal 8.5-10.1 [facility] Comment on above: Order Comment: 'TROP ' Serial specimen #1, #2 or #3: 1 Performed By: #### L 501.4020, L100.0100, L500.4050, L501.2450 #### [facility] [address] [place], [address] Chloride [Moles/Vol] 105 mmol/L Normal 98-107 [facility] Comment on above: Order Comment: 'TROP ' Serial specimen #1, #2 or #3: 1 Performed By: #### L 501.4020, L100.0100, L500.4050, L501.2450 #### [facility] [address] [place], [address] CO2 [Moles/Vol] 25.0 mmol/L Normal 21.0-32.0 [facility] Comment on above: Order Comment: 'TROP ' Serial specimen #1, #2 or #3: 1 Performed By: #### L 501.4020, L100.0100, L500.4050, L501.2450 #### [facility] [address] [place], [address] Creatinine [Mass/Vol] 1.14 mg/dL Normal 0.70-1.30 [facility] Comment on above: Order Comment: 'TROP ' Serial specimen #1, #2 or #3: 1 Result Comment: The validity of the calculated GFR GFRAA in patients over 70 years has not been determined. Clinical correlation is essential. Performed By: #### L 501.4020, L100.0100, L500.4050, L501.2450 #### [facility] [address] [place], [address] ECRCL 72.35 ml/min Normal [facility] Comment on above: Order Comment: 'TROP ' Serial specimen #1, #2 or #3: 1 Performed By: #### L 501.4020, L100.0100, L500.4050, L501.2450 #### [facility] [address] [place], [address] EST GFR - AA 85 mL/min Normal >60 [facility] Comment on above: Order Comment: 'TROP ' Serial specimen #1, #2 or #3: 1 Result Comment: Afri can [place] GFR Calc Performed By: #### L 501.4020, L100.0100, L500.4050, L501.2450 #### [facility] [address] [place], [address] GAP 9 Normal 5-15 [facility] Comment on above: Order Comment: 'TROP ' Serial specimen #1, #2 or #3: 1 Performed By: #### L 501.4020, L100.0100, L500.4050, L501.2450 #### [facility] [address] [place], [address] GFR/1.73 sq M.predicted among non-blacks MDRD (S/P/Bld) [Vol rate/Area] 70 mL/min/{1.73_m2} Normal >60 [facility] Comment on above: Order Comment: 'TROP ' Serial specimen #1, #2 or #3: 1 Result Comment: Non- GFR Calc Performed By: #### L 501.4020, L100.0100, L500.4050, L501.2450 #### [facility] [address] [place], [address] Globulin (S) [Mass/Vol] 4.8 g/dL High 2.2-4.2 [facility] Comment on above: Order Comment: 'TROP ' Serial specimen #1, #2 or #3: 1 Performed By: #### L 501.4020, L100.0100, L500.4050, L501.2450 #### [facility] [address] [place], [address] Glucose [Mass/Vol] 238 mg/dL High 74-106 [facility] Comment on above: Order Comment: 'TROP ' Serial specimen #1, #2 or #3: 1 Result Comment: Gluc ose result greater than or equal to 200 mg/dL suggests DIABETES MELLITUS per A.D.A. criteria. Performed By: #### L 501.4020, L100.0100, L500.4050, L501.2450 #### [facility] [address] [place], [address] Potassium [Moles/Vol] 4.0 mmol/L Normal 3.5-5.1 [facility] Comment on above: Order Comment: 'TROP ' Serial specimen #1, #2 or #3: 1 Performed By: #### L 501.4020, L100.0100, L500.4050, L501.2450 #### [facility] [address] [place], [address] Sodium [Moles/Vol] 139 mmol/L Normal 136-145 [facility] Comment on above: Order Comment: 'TROP ' Serial specimen #1, #2 or #3: 1 Performed By: #### L 501.4020, L100.0100, L500.4050, L501.2450 #### [facility] [address] [place], [address] T PROT 8.5 g/dL High 6.4-8.2 [facility] Comment on above: Order Comment: 'TROP ' Serial specimen #1, #2 or #3: 1 Performed By: #### L 501.4020, L100.0100, L500.4050, L501.2450 #### [facility] [address] [place], [address] Urea nitrogen [Mass/Vol] 15 mg/dL Normal 7-18 [facility] Comment on above: Order Comment: 'TROP ' Serial specimen #1, #2 or #3: 1 Performed By: #### L 501.4020, L100.0100, L500.4050, L501.2450 #### [facility] [address] [place], [address] Determination of erythrocyte mean corpuscular volume (MCV)Ordered By: Kurtis Cross on 03-18-2023 MCV (RBC) [Entitic vol] 70.6 fL 80-94 [facility] Emergency Department Summary on 03-18-2023 Emergency Department Summary [facility] Medical Records Department [address] [place] [address] Emergency Department Summary 03/18/23 MR#: [id number] Acct: [id number] Name: BERTA JARAMILLO Rep #: [id number] : 1965 57 From: Kurtis Cross DO PCP: Dr. Rachel Chery MD Status:REG ER Location: ED HPI History of Present Illness Chief Complaint: Nausea/Vomiting Narrative Narrative: 87-year-old male presenting with multiple complaints. Patient was seen here in the ED yesterday and apparently needed some pain medicine for his neuropathy. He was discharged back to his facility where he states he started to have abdominal pain. Use points to his lower abdomen but then states it hurts everywhere. He states has been vomiting since then. He states every time he starts to eat again he vomits. Everything he drinks comes up as well. He denies any diarrhea. He is not sure if he had a fever. He states that today sometime this morning he started to develop chest pain which feels like it squeezing him in his epigastrium. Denies lightheadedness or dizziness. Denies shortness of breath. Denies cough. Patient with past medical history of bipolar disorder, neuropathy, diabetes no history of cardiac disease that he is aware of. He states that he was told this morning that he has a urinary tract infection. He is not sure if he is medicated for the. [facility] Medical History Anxiety and depression Bipolar disorder Chronic anemia Decubitus ulcer of left buttock, stage 2 Decubitus ulcer of left buttock, stage 3 Delusional disorder Diabetes Diabetic ulcer of left heel Diabetic ulcer of right heel HTN (hypertension) Hypercholesterolemia Morbid obesity Neuropathy Rheumatoid arthritis RUQ abdominal pain Tobacco use Type 2 diabetes mellitus Uncontrolled type 2 diabetes mellitus with hyperosmolar nonketotic hyperglycemia Home Medications aspirin 81 mg chewable tablet 81 mg PO DAILY heart 11/27/20 [History Last Taken 01/16/21] atorvastatin 80 mg tablet 80 mg PO QHS cholesterol 11/27/20 [History Last Taken 01/14/21] buspirone 5 mg tablet 5 mg PO TID anxiety 11/27/20 [History Last Taken 01/16/21] cholecalciferol (vitamin D3) 50 mcg (2,000 unit) tablet (Vitamin D3) 50 mcg PO DAILY vitamin 11/27/20 [History Last Taken 01/16/21] duloxetine 60 mg capsule,delayed release sprinkle 60 mg PO QHS depression 11/27/20 [History Last Taken Unknown] ezetimibe 10 mg tablet 10 mg PO DAILY cholesterol 11/27/20 [History Last Taken 01/16/21] ferrous sulfate 325 mg (65 mg iron) tablet 325 mg PO DAILY supplement 11/27/20 [History Last Taken 01/16/21] insulin lispro 100 unit/mL subcutaneous cartridge See Protocol subcut TID diabetes 11/27/20 [History Last Taken 01/16/21] mecobalamin (vitamin B12) 1,000 mcg chewable tablet (B12 Active) 1,000 mcg PO DAILY vitamin 11/27/20 [History Last Taken 01/16/21] metoprolol tartrate 25 mg tablet 25 mg PO BID htn 11/27/20 [History Last Taken 01/16/21] omega 0-azj-fno-fish oil 1,000 mg (120 mg-180 mg) capsule (Fish Oil) 1 cap PO BID supplement 11/27/20 [History Last Taken 01/16/21] pregabalin 200 mg capsule 200 mg PO TID nerve pill 11/27/20 [History Last Taken 01/16/21] sertraline 50 mg tablet 75 mg PO DAILY depression 11/27/20 [History Last Taken 01/15/21] tamsulosin 0.4 mg capsule 0.4 mg PO QHS urine 11/27/20 [History Last Taken 01/14/21] pantoprazole 40 mg tablet,delayed release (Protonix) 40 mg PO BID #60 tabs 01/15/21 [Rx Last Taken 01/16/21] amlodipine 10 mg tablet 10 mg PO DAILY BP 01/16/21 [History Last Taken 01/16/21] bupropion HCl 150 mg 24 hr tablet, extended release 150 mg PO BID 01/16/21 [History Last Taken 01/16/21] metformin 500 mg tablet 500 mg PO BID DM 01/16/21 [History Last Taken 01/16/21] sucralfate 1 gram tablet 1 g PO ACHS STOMACH 01/16/21 [History Last Taken 01/16/21] insulin degludec 100 unit/mL (3 mL) subcutaneous pen (Tresiba FlexTouch U-100 insulin) 40 unit (0.4 mL) subcut QHS diabetes #0 mL 01/23/21 [Rx Last Taken Unknown] lactulose 20 gram/30 mL oral solution 20 g (30 mL) PO DAILY 30 days #900 mL 01/23/21 [Rx Last Taken Unknown] quetiapine 25 mg tablet 25 mg PO BID #60 tabs 01/23/21 [Rx Last Taken Unknown] amitriptyline 50 mg tablet 50 mg PO QHS 10/23/21 [History Last Taken Unknown] dupilumab 200 mg/1.14 mL subcutaneous pen injector (Dupixent) 300 mg subcut QWEEK 10/23/21 [History Last Taken Unknown] leflunomide 10 mg tablet (Arava) 10 mg PO DAILY 10/23/21 [History Last Taken Unknown] lisinopril 10 mg tablet 10 mg PO DAILY 10/23/21 [History Last Taken Unknown] amoxicillin 875 mg-potassium clavulanate 125 mg tablet 1 tab PO BID 14 days #28 tabs 12/18/21 [Rx Last Taken Unknown] meclizine 25 mg tablet 25 mg PO DAILY PRN dizziness #20 tabs 04/10/22 [Rx Last Taken Unknown] amitriptyline 75 mg tablet 75 mg PO QHS cholesterol 03/18/23 [History (more content not included)... Normal [facility] Hematocrit Auto (Bld) [Volum e fraction]Ordered By: Kurtis Cross on 03-18-2023 Hematocrit (Bld) [Volume fraction] 36.5 % 40-54 [facility] Ketones Test strip Ql (U)Ord ered By: Kurtis Cross on 03-18-2023 Ketones Ql (U) 150 mg/dl Negative [facility] Comment on above: CRITICAL VALUE *HCRI TICAL VALUE VERIFIED. CALLED TO [id number]/02/23 2155 Gisela Helm.RESULTS READ BACK BY SAME . L501.4020on 03-18-2023 TROPONIN-I HS 6 pg/mL Normal 3.0-78.0 [facility] Comment on above: Order Comment: 'TROP ' Serial specimen #1, #2 or #3: 1 Result Comment: Lane anaya Note: New Test Units and Gender Specific Reference Ranges. For more information see Policy Stat Procedure [place] High Sensitivity Troponin (TNIH) and attachments. Performed By: #### L 501.4020, L100.0100, L500.4050, L501.2450 #### [facility] [address] [place], [address] Laboratory - Chemistry and C hemistry - challengeOrdered By: Kurtis Cross on 03-18-2023 ALP [Catalytic activity/Vol] 131 U/L 45-117 [facility] ALT [Catalytic activity/Vol] 22 U/L 16-61 [facility] CO2 [Moles/Vol] 25.0 mmol/L 21.0-32.0 [facility] Globulin (S) [Mass/Vol] 4.8 g/dL 2.2-4.2 [facility] Lipase [Catalytic activity/Vol] 20 U/L 13-75 [facility] Comment on above: Please note:LIPASE r evised reference range effective 22. New Lipase methodology. Expected to produce lower values than the previous assay method. NEW Reference Range: 13 - 75 U/L Urea nitrogen/Creatinine [Mass ratio] 13.2 mg/mg 10-20 [facility] Laboratory - Hematology and Cell countsOrdered By: Kurtis Cross on 03-18-2023 Erythrocyte distribution width (RBC) [Entitic vol] 48.9 fL 35.1-43.9 [facility] Erythrocyte distribution width (RBC) [Ratio] 20.0 % 11.6-14.6 [facility] Immature granulocytes/100 WBC (Bld) 0.300 % 0.0-0.9 [facility] Comment on above: IG% - Immature Granu locytes (promyelocytes, myelocytes and metamyelocytes) > 1% indicates that a LEFT SHIFT is Present. MCH (RBC) [Entitic mass] 24.0 pg 27.0-32.0 [facility] Nucleated RBC/100 WBC (Bld) [Ratio] 0 % 0-5 [facility] Lipaseon 03-18-2023 Lipase [Catalytic activity/Vol] 20 U/L Normal 13-75 [facility] Comment on above: Order Comment: 'TROP ' Serial specimen #1, #2 or #3: 1 Result Comment: Lane anaya note: LIPASE revised reference range effective 22. New Lipase methodology. Expected to produce lower values than the previous assay method. NEW Reference Range: 13 - 75 U/L Performed By: #### L 501.4020, L100.0100, L500.4050, L501.2450 #### [facility] [address], [place], [id number] MCHC Auto (RBC) [Mass/Vol]Or dered By: Kurtis Cross on 03-18-2023 MCHC (RBC) [Mass/Vol] 34.0 g/dL 32-36 [facility] Mucus LM Ql (Urine sed)Order ed By: Kurtis Cross on 03-18-2023 Mucus Ql (Urine sed) 0 SEEN /hpf [facility] Nitrite Test strip Ql (U)Ord ered By: Kurtis Cross on 03-18-2023 Nitrite Ql (U) Negative Negative [facility] No Panel InformationOrdered By: Kurtis Cross on 03-18-2023 Estimated Creatinine Clearance Calc 72.35 ml/min [facility] Estimated GFR (MDRD) Amer 85 mL/min >60 [facility] Comment on above: GFR Calc Estimated GFR (MDRD) Non-Af Amer 70 mL/min >60 [facility] Comment on above: Non- GFR Calc Troponin I High Sensitivity 6 pg/mL 3.0-78.0 [facility] Comment on above: Please Note: New Ana Luisa t Units and Gender Specific Reference Ranges. For more information see Policy Stat Procedure [place] High Sensitivity Troponin (TNIH) and attachments. Platelets bldOrdered By: Lionel Cross on 03-18-2023 Platelets (Bld) [#/Vol] 303 10*3/uL 150-450 [facility] Protein Test strip Ql (U)Ord ered By: Kurtis Cross on 03-18-2023 Protein Ql (U) Negative Negative [facility] Serum or plasma albumin yeyo urement (mass/volume)Ordered By: Kurtis Cross on 03-18-2023 Albumin [Mass/Vol] 3.7 g/dL 3.2-5.0 [facility] Serum or plasma albumin/glob ulin mass ratioOrdered By: Kurtis Cross on 03-18-2023 Albumin/Globulin [Mass ratio] 0.8 {ratio} 0.9-2.4 [facility] Serum or plasma calcium yeyo urement (mass/volume)Ordered By: Kurtis Cross on 03-18-2023 Calcium [Mass/Vol] 9.1 mg/dL 8.5-10.1 [facility] Serum or plasma creatinine m easurement (mass/volume)Ordered By: Kurtis Cross on 03-18-2023 Creatinine [Mass/Vol] 1.14 mg/dL 0.70-1.30 [facility] Comment on above: The validity of the calculated GFR & GFRAA in patients over 70 years has not been determined. Clinical correlation is essential. Serum or plasma urea nitroge n measurement (mass/volume)Ordered By: Kurtis Cross on 03-18-2023 Urea nitrogen [Mass/Vol] 15 mg/dL 7-18 [facility] Squamous epithelial cells de tection in urine sediment by light microscopyOrdered By: Kurtis Cross on 03-18-2023 Epithelial cells.squamous LM Ql (Urine sed) 0 SEEN /hpf 0-5 [facility] Thin prep Papanicolaou smear with manual screeningOrdered By: Kurtis Cross on 03-18-2023 Thin prep Papanicolaou smear with manual screening 10 U/L 15-37 [facility] Thin prep Papanicolaou smear with manual screening 9 5-15 [facility] Urinalysis, Completeon 11-02 -2023 BACTERIA 0 SEEN Normal None Seen [facility] Comment on above: Order Comment: CLEAN CATCH Performed By: #### L 400.0001 ####[facility] [address] [place], [address] EPI,SQUAMOUS 0 SEEN Normal 0-5 [facility] Comment on above: Order Comment: CLEAN CATCH Performed By: #### L 400.0001 ####[facility] [address] [place], [address] Mucus Ql (Urine sed) 0 SEEN Normal [facility] Comment on above: Order Comment: CLEAN CATCH Performed By: #### L 400.0001 ####[facility] [address] [place], [address] RBC 0 SEEN Normal 0-5 [facility] Comment on above: Order Comment: CLEAN CATCH Performed By: #### L 400.0001 ####[facility] [address] [place], [address] WBC 0 SEEN Normal 0-5 [facility] Comment on above: Order Comment: CLEAN CATCH Performed By: #### L 400.0001 ####[facility] [address] [place], [address] Urine blood detectionOrdered By: Kurtis Cross on 03-18-2023 RBC Ql (U) Negative Negative [facility] RBC Ql (U) 0 SEEN /hpf 0-5 [facility] Urine clarityOrdered By: Lionel Cross on 03-18-2023 Clarity (U) Clear Clear [facility] Urine color determinationOrd ered By: Kurtis Cross on 03-18-2023 Color (U) Yellow Yellow [facility] Urine glucose detectionOrder ed By: Kurtis Cross on 03-18-2023 Glucose Ql (U) 50 mg/dl Normal [facility] Urine leukocyte esterase det ection by dipstickOrdered By: Kurtis Cross on 03-18-2023 Leukocyte esterase Test strip Ql (U) Negative Negative [facility] Urine pHOrdered By: Kurtis franco on 03-18-2023 pH (U) 6.5 [pH] 5.0 - 8.0 [facility] Urine sediment bacteria coun t by microscopy (number/high power field)Ordered By: Kurtis Cross on 03-18-2023 Bacteria LM.HPF (Urine sed) [#/Area] 0 /[HPF] None Seen [facility] Urine specific gravity measu rementOrdered By: Kurtis Cross on 03-18-2023 Specific gravity (U) [Rel density] 1.010 1.002-1.030 [facility] Urobilinogen Auto test strip Ql (U)Ordered By: Kurtis Cross on 03-18-2023 Urobilinogen Ql (U) Normal mg/dl Normal [facility] Bedside Glucoseon 03-17-2023 FINGERSTICK GLU 201 mg/dL High 74-106 [facility] Comment on above: Result Comment: SAURABH GEMENT OF PATIENT CARE PER NURSING PROTOCOL Performed By: #### L 501.080 ####[facility] [address] [facility] [place], [address] Emergency Department Summary on 03-17-2023 Emergency Department Summary [facility] Medical Records Department [address] [place] [address] Emergency Department Summary 03/17/23 MR#: [id number] Acct: [id number] Name: BERTA JARAMILLO Rep #: [id number] : 1965 57 From: Ahsan Shin MD PCP: Dr. Rachel Chery MD Status:DEP ER Location: ED HPI History of Present Illness HPI Narrative: 57-year-old male extensive past medical history of bipolar disease, anemia, diabetes, diabetic neuropathies and hypertension. Had been at a local extended care facility and was recently discharged. He said he does not have his medications for his neuropathic pain. He has not followed up with either extended-care facility where he was discharged from or his primary care physician to have these rewritten. He is unsure of the dose. Also states he has had some nausea and vomiting today. Has not been checking his blood sugar. Denies any diarrhea or fever. Chief Complaint: Lower Extremity Injury Informant: patient Onset/Context/Timing Onset: Days Context: Gradual Onset Timing: Continuous Quality of Pain: Dull and Aching Current Severity: Mild Maximum Severity: Mild Associated Symptoms Associated Symptoms: Positive for Parasthesia; Negative for Weakness or Loss of Funtion Narrative Narrative: 57-year-old male history of diabetic neuropathies was discharged from a area custodial and said he did not have his prescriptions. Prior similar symptoms: Yes Recent Illness/Hospitalization: No PFSH [facility] Medical History Anxiety and depression Bipolar disorder Chronic anemia Decubitus ulcer of left buttock, stage 2 Decubitus ulcer of left buttock, stage 3 Delusional disorder Diabetes Diabetic ulcer of left heel Diabetic ulcer of right heel HTN (hypertension) Hypercholesterolemia Morbid obesity Neuropathy Rheumatoid arthritis RUQ abdominal pain Tobacco use Type 2 diabetes mellitus Uncontrolled type 2 diabetes mellitus with hyperosmolar nonketotic hyperglycemia Home Medications aspirin 81 mg chewable tablet 81 mg PO DAILY heart 11/27/20 [History Last Taken 01/16/21] atorvastatin 80 mg tablet 80 mg PO QHS cholesterol 11/27/20 [History Last Taken 01/14/21] buspirone 5 mg tablet 5 mg PO BID anxiety 11/27/20 [History Last Taken 01/16/21] cholecalciferol (vitamin D3) 50 mcg (2,000 unit) tablet (Vitamin D3) 50 mcg PO DAILY vitamin 11/27/20 [History Last Taken 01/16/21] duloxetine 60 mg capsule,delayed release sprinkle 60 mg PO QHS depression 11/27/20 [History Last Taken Unknown] ezetimibe 10 mg tablet 10 mg PO DAILY cholesterol 11/27/20 [History Last Taken 01/16/21] ferrous sulfate 325 mg (65 mg iron) tablet 325 mg PO DAILY supplement 11/27/20 [History Last Taken 01/16/21] insulin lispro 100 unit/mL subcutaneous cartridge See Protocol subcut TID diabetes 11/27/20 [History Last Taken 01/16/21] mecobalamin (vitamin B12) 1,000 mcg chewable tablet (B12 Active) 1,000 mcg PO DAILY vitamin 11/27/20 [History Last Taken 01/16/21] metoprolol tartrate 25 mg tablet 25 mg PO BID htn 11/27/20 [History Last Taken 01/16/21] omega 3-oog-lez-fish oil 1,000 mg (120 mg-180 mg) capsule (Fish Oil) 1 cap PO BID supplement 11/27/20 [History Last Taken 01/16/21] pregabalin 200 mg capsule 200 mg PO TID nerve pill 11/27/20 [History Last Taken 01/16/21] sertraline 50 mg tablet 50 mg PO DAILY depression 11/27/20 [History Last Taken 01/15/21] tamsulosin 0.4 mg capsule 0.4 mg PO QHS urine 11/27/20 [History Last Taken 01/14/21] pantoprazole 40 mg tablet,delayed release (Protonix) 40 mg PO BID #60 tabs 01/15/21 [Rx Last Taken 01/16/21] amlodipine 10 mg tablet 10 mg PO DAILY BP 01/16/21 [History Last Taken 01/16/21] bupropion HCl 150 mg 24 hr tablet, extended release 150 mg PO BID 01/16/21 [History Last Taken 01/16/21] metformin 500 mg tablet 500 mg PO BID DM 01/16/21 [History Last Taken 01/16/21] sucralfate 1 gram tablet 1 g PO ACHS STOMACH 01/16/21 [History Last Taken 01/16/21] insulin degludec 100 unit/mL (3 mL) subcutaneous pen (Tresiba FlexTouch U-100 insulin) 40 unit (0.4 mL) subcut QHS diabetes #0 mL 01/23/21 [Rx Last Taken Unknown] lactulose 20 gram/30 mL oral solution 20 g (30 mL) PO DAILY 30 days #900 mL 01/23/21 [Rx Last Taken Unknown] quetiapine 25 mg tablet 25 mg PO BID #60 tabs 01/23/21 [Rx Last Taken Unknown] amitriptyline 50 mg tablet 50 mg PO QHS 10/23/21 [History Last Taken Unknown] dupilumab 200 mg/1.14 mL subcutaneous pen injector (Dupixent) 300 mg subcut QWEEK 10/23/21 [History Last Taken Unknown] leflunomide 10 mg tablet (Arava) 10 mg PO DAILY 10/23/21 [History Last Taken Unknown] lisinopril 10 mg tablet 10 mg PO DAILY 10/23/21 [History Last Taken Unknown] amoxicillin 875 mg-potassium clavulanate 125 mg tablet 1 tab PO BID 14 days #28 tabs 12/18/21 [Rx Last Taken Unknown] meclizine 25 mg tablet 25 mg PO DAILY PRN dizziness #20 tab (more content not included)... Normal [facility] Glucose Glucometer (BldC) [M ass/Vol]Ordered By: Ahsan Shin on 03-17-2023 Glucose [Mass/Vol] 201 mg/dL 74-106 [facility] Comment on above: MANAGEMENT OF PATIEN T CARE PER NURSING PROTOCOL Absolute lymphocyte countOrd ered By: Hieu Watson on 03-12-2023 Lymphocytes Auto (Unsp spec) [#/Vol] 2.38 10*3/uL 0.83-4.51 [facility] Basic Metabolic Profile (BMP )on 03-12-2023 BUN/CRE 12.4 RATIO Normal 03-05 [facility] Comment on above: Order Comment: 213-1 Performed By: #### L 100.0100, L500.2500 ####[facility] [address] [place], [address] CA,Total 8.0 mg/dL Low 8.5-10.1 [facility] Comment on above: Order Comment: 213-1 Performed By: #### L 100.0100, L500.2500 ####[facility] [address] [place], [address] Chloride [Moles/Vol] 111 mmol/L High 98-107 [facility] Comment on above: Order Comment: 213-1 Performed By: #### L 100.0100, L500.2500 ####[facility] [address] [place], [address] CO2 [Moles/Vol] 27.0 mmol/L Normal 21.0-32.0 [facility] Comment on above: Order Comment: 213-1 Performed By: #### L 100.0100, L500.2500 ####[facility] [address] [place], [address] Creatinine [Mass/Vol] 0.96 mg/dL Normal 0.70-1.30 [facility] Comment on above: Order Comment: Result Comment: The validity of the calculated GFR GFRAA in patients over 70 years has not been determined. Clinical correlation is essential. Performed By: #### L 100.0100, L500.2500 ####[facility] [address] [place], [address] EST GFR - AA 103 mL/min Normal >60 [facility] Comment on above: Order Comment: Result Comment: Afri can [place] GFR Calc Performed By: #### L 100.0100, L500.2500 ####[facility] [address] [place], [address] GAP 2 Low 5-15 [facility] Comment on above: Order Comment: Performed By: #### L 100.0100, L500.2500 ####[facility] [address] [place], [address] GFR/1.73 sq M.predicted among non-blacks MDRD (S/P/Bld) [Vol rate/Area] 85 mL/min/{1.73_m2} Normal >60 [facility] Comment on above: Order Comment: Result Comment: Non- GFR Calc Performed By: #### L 100.0100, L500.2500 ####[facility] [address] [place], [address] Glucose [Mass/Vol] 175 mg/dL High 74-106 [facility] Comment on above: Order Comment: Result Comment: Fast ing Glucose result greater than or equal to 126 mg/dL suggests DIABETES MELLITUS per A.D.A. criteria. Performed By: #### L 100.0100, L500.2500 ####[facility] [address] [place], [address] Potassium [Moles/Vol] 4.2 mmol/L Normal 3.5-5.1 [facility] Comment on above: Order Comment: 213-1 Performed By: #### L 100.0100, L500.2500 ####[facility] [address] [place], [address] Sodium [Moles/Vol] 140 mmol/L Normal 136-145 [facility] Comment on above: Order Comment: 213-1 Performed By: #### L 100.0100, L500.2500 ####[facility] [address] [place], [address] Urea nitrogen [Mass/Vol] 12 mg/dL Normal 7-18 [facility] Comment on above: Order Comment: 213-1 Performed By: #### L 100.0100, L500.2500 ####[facility] [address] [place], [address] Basophil percentageOrdered B y: Hieu Watson on 03-12-2023 Basophils/100 WBC (Bld) 0.7 % 0-1 [facility] Chloride [Moles/Vol] 111 mmol/L 98-107 [facility] Eosinophils/100 WBC (Bld) 5.9 % 0-5 [facility] Glucose [Mass/Vol] 175 mg/dL 74-106 [facility] Comment on above: Fasting Glucose resu lt greater than or equal to 126 mg/dL suggests DIABETES MELLITUS per A.D.A. criteria. Neutrophils (Bld) [#/Vol] 3.4 10*3/uL 2.0-7.7 [facility] Neutrophils/100 WBC (Bld) 49.6 % 47-70 [facility] Potassium [Moles/Vol] 4.2 mmol/L 3.5-5.1 [facility] Sodium [Moles/Vol] 140 mmol/L 136-145 [facility] WBC (Bld) [#/Vol] 6.8 10*3/uL 4.4-11.0 [facility] Blood erythrocytes count (nu mber/volume)Ordered By: Hieu Watson on 03-12-2023 RBC (Bld) [#/Vol] 4.14 10*6/uL 4.6-6.[address] [facility] Blood hemoglobin measurement (mass/volume)Ordered By: Hieu Watson on 03-12-2023 Hemoglobin (Bld) [Mass/Vol] 9.9 g/dL 13.0-16.5 [facility] Blood lymphocytes/100 leukoc ytesOrdered By: Hieu Watson on 03-12-2023 Lymphocytes/100 WBC (Bld) 34.9 % 19-41 [facility] Blood monocytes/100 leukocyt esOrdered By: Hieu Watson on 03-12-2023 Monocytes/100 WBC (Bld) 8.8 % 0-10 [facility] Blood platelet mean volumeOr dered By: Hieu Watson on 03-12-2023 Platelet mean volume (Bld) [Entitic vol] 9.7 fL 6.2-12.0 [facility] CBC W/Diff, Automatedon - Absolute Lymph 2.38 X10 3/uL Normal 0.83-4.51 [facility] Comment on above: Order Comment: 213- Performed By: #### L 100.0100, L500.2500 #### [facility] [address] [place], [address] Absolute Neut 3.4 X10 3/uL Normal 2.0-7.7 [facility] Comment on above: Order Comment: 213-1 Performed By: #### L 100.0100, L500.2500 #### [facility] [address] [place], [address] Basophils/100 WBC (Bld) 0.7 % Normal 0-1 [facility] Comment on above: Order Comment: 213-1 Performed By: #### L 100.0100, L500.2500 #### [facility] [address] [place], [address] Eosinophils/100 WBC (Bld) 5.9 % High 0-5 [facility] Comment on above: Order Comment: 213-1 Performed By: #### L 100.0100, L500.2500 #### [facility] [address] [place], [address] Erythrocyte distribution width (RBC) [Ratio] 19.2 % High 11.6-14.6 [facility] Comment on above: Order Comment: 213-1 Performed By: #### L 100.0100, L500.2500 #### [facility] [address] [place], [address] Hematocrit (Bld) [Volume fraction] 29.5 % Low 40-54 [facility] Comment on above: Order Comment: 213-1 Performed By: #### L 100.0100, L500.2500 #### [facility] [address] [place], [address] Hemoglobin (Bld) [Mass/Vol] 9.9 g/dL Low 13.0-16.5 [facility] Comment on above: Order Comment: 213-1 Performed By: #### L 100.0100, L500.2500 #### [facility] [address] [place], [address] IG% 0.100 Normal 0.0-0.9 [facility] Comment on above: Order Comment: 213-1 Result Comment: IG% - Immature Granulocytes (promyelocytes, myelocytes and metamyelocytes) > 1% indicates that a LEFT SHIFT is Present. Performed By: #### L 100.0100, L500.2500 #### [facility] [address] [place], [address] Lymphocytes/100 WBC (Bld) 34.9 % Normal 19-41 [facility] Comment on above: Order Comment: 213-1 Performed By: #### L 100.0100, L500.2500 #### [facility] [address] [place], [address] MCH (RBC) [Entitic mass] 23.9 pg Low 27.0-32.0 [facility] Comment on above: Order Comment: 213-1 Performed By: #### L 100.0100, L500.2500 #### [facility] [address] [place], [address] MCHC (RBC) [Mass/Vol] 33.6 g/dL Normal 32-36 [facility] Comment on above: Order Comment: 213-1 Performed By: #### L 100.0100, L500.2500 #### [facility] [address] [place], [address] MCV (RBC) [Entitic vol] 71.3 fL Low 80-94 [facility] Comment on above: Order Comment: 213-1 Performed By: #### L 100.0100, L500.2500 #### [facility] [address] [place], [address] Monocytes/100 WBC (Bld) 8.8 % Normal 0-10 [facility] Comment on above: Order Comment: 213-1 Performed By: #### L 100.0100, L500.2500 #### [facility] [address] [place], [address] Neutrophils/100 WBC (Bld) 49.6 % Normal 47-70 [facility] Comment on above: Order Comment: 213-1 Performed By: #### L 100.0100, L500.2500 #### [facility] [address] [place], [address] Nucleated RBC (Bld) [#/Vol] 0 10*3/uL Normal 0-5 [facility] Comment on above: Order Comment: 213-1 Performed By: #### L 100.0100, L500.2500 #### [facility] [address] [place], [address] Platelet mean volume (Bld) [Entitic vol] 9.7 fL Normal 6.2-12.0 [facility] Comment on above: Order Comment: 213-1 Performed By: #### L 100.0100, L500.2500 #### [facility] [address] [place], [address] Platelets (Bld) [#/Vol] 216 10*3/uL Normal 150-450 [facility] Comment on above: Order Comment: 213-1 Performed By: #### L 100.0100, L500.2500 #### [facility] [address] [place], [address] RBC (Bld) [#/Vol] 4.14 10*6/uL Low 4.6-6.[address] [facility] Comment on above: Order Comment: 213-1 Performed By: #### L 100.0100, L500.2500 #### [facility] [address] [place], [address] RDW SD 48.7 fl High 35.1-43.9 [facility] Comment on above: Order Comment: 213-1 Performed By: #### L 100.0100, L500.2500 #### [facility] [address] [place], [address] WBC (Bld) [#/Vol] 6.8 10*3/uL Normal 4.4-11.0 [facility] Comment on above: Order Comment: 213-1 Performed By: #### L 100.0100, L500.2500 #### [facility] [address] [place], [address] Determination of erythrocyte mean corpuscular volume (MCV)Ordered By: Hieu Watson on 03-12-2023 MCV (RBC) [Entitic vol] 71.3 fL 80-94 [facility] Hematocrit Auto (Bld) [Volum e fraction]Ordered By: Hieu Watson on 03-12-2023 Hematocrit (Bld) [Volume fraction] 29.5 % 40-54 [facility] - Chemistry and C hemistry - challengeOrdered By: Hieu Watson on 03-12-2023 CO2 [Moles/Vol] 27.0 mmol/L 21.0-32.0 [facility] Urea nitrogen/Creatinine [Mass ratio] 12.4 mg/mg 10-20 [facility] - Hematology and Cell countsOrdered By: Hieu Watson on 03-12-2023 Erythrocyte distribution width (RBC) [Entitic vol] 48.7 fL 35.1-43.9 [facility] Erythrocyte distribution width (RBC) [Ratio] 19.2 % 11.6-14.6 [facility] Immature granulocytes/100 WBC (Bld) 0.100 % 0.0-0.9 [facility] Comment on above: IG% - Immature Granu locytes (promyelocytes, myelocytes and metamyelocytes) > 1% indicates that a LEFT SHIFT is Present. MCH (RBC) [Entitic mass] 23.9 pg 27.0-32.0 [facility] Nucleated RBC/100 WBC (Bld) [Ratio] 0 % 0-5 [facility] MCHC Auto (RBC) [Mass/Vol]Or dered By: Hieu Watson on 03-12-2023 MCHC (RBC) [Mass/Vol] 33.6 g/dL 32-36 [facility] No Panel InformationOrdered By: Hieu Watson on 03-12-2023 Estimated GFR (MDRD) Amer 103 mL/min >60 [facility] Comment on above: GFR Calc Estimated GFR (MDRD) Non-Af Amer 85 mL/min >60 [facility] Comment on above: Non- GFR Calc Platelets bldOrdered By: Brenda Watson on 03-12-2023 Platelets (Bld) [#/Vol] 216 10*3/uL 150-450 [facility] Serum or plasma calcium yeyo urement (mass/volume)Ordered By: Hieu Watson on 03-12-2023 Calcium [Mass/Vol] 8.0 mg/dL 8.5-10.1 [facility] Serum or plasma creatinine m easurement (mass/volume)Ordered By: Hieu Watson on 03-12-2023 Creatinine [Mass/Vol] 0.96 mg/dL 0.70-1.30 [facility] Comment on above: The validity of the calculated GFR & GFRAA in patients over 70 years has not been determined. Clinical correlation is essential. Serum or plasma urea nitroge n measurement (mass/volume)Ordered By: Hieu Watson on 03-12-2023 Urea nitrogen [Mass/Vol] 12 mg/dL 7-18 [facility] Thin prep Papanicolaou smear with manual screeningOrdered By: Hieu Watson on 03-12-2023 Thin prep Papanicolaou smear with manual screening 2 5-15 [facility] Absolute lymphocyte countOrd ered By: Hieu Watson on 02-12-2023 Lymphocytes Auto (Unsp spec) [#/Vol] 2.57 10*3/uL 0.83-4.51 [facility] Basic Metabolic Profile (BMP )on 02-12-2023 BUN/CRE 17.4 RATIO Normal 10-20 [facility] Comment on above: Order Comment: 213-1 Performed By: #### L 500.2500, L100.0100 ####[facility] [address] [place], [address] CA,Total 8.3 mg/dL Low 8.5-10.1 [facility] Comment on above: Order Comment: 213-1 Performed By: #### L 500.2500, L100.0100 ####[facility] [address] [place], [address] Chloride [Moles/Vol] 113 mmol/L High 98-107 [facility] Comment on above: Order Comment: 213-1 Performed By: #### L 500.2500, L100.0100 ####[facility] [address] [place], [address] CO2 [Moles/Vol] 26.0 mmol/L Normal 21.0-32.0 [facility] Comment on above: Order Comment: 213-1 Performed By: #### L 500.2500, L100.0100 ####[facility] [address] [place], [address] Creatinine [Mass/Vol] 1.09 mg/dL Normal 0.70-1.30 [facility] Comment on above: Order Comment: 213-1 Result Comment: The validity of the calculated GFR GFRAA in patients over 70 years has not been determined. Clinical correlation is essential. Performed By: #### L 500.2500, L100.0100 ####[facility] [address] [place], [address] EST GFR - AA 90 mL/min Normal >60 [facility] Comment on above: Order Comment: Result Comment: Afri can [place] GFR Calc Performed By: #### L 500.2500, L100.0100 ####[facility] [address] [place], [address] GAP 0 Low 5-15 [facility] Comment on above: Order Comment: Performed By: #### L 500.2500, L100.0100 ####[facility] [address] [place], [address] GFR/1.73 sq M.predicted among non-blacks MDRD (S/P/Bld) [Vol rate/Area] 74 mL/min/{1.73_m2} Normal >60 [facility] Comment on above: Order Comment: Result Comment: Non- GFR Calc Performed By: #### L 500.2500, L100.0100 ####[facility] [address] [place], [address] Glucose [Mass/Vol] 120 mg/dL High 74-106 [facility] Comment on above: Order Comment: Result Comment: Fast ing Glucose result from 100 to 125 mg/dL suggests IMPAIRED HOMEOSTASIS per A.D.A. criteria. Performed By: #### L 500.2500, L100.0100 ####[facility] [address] [place], [address] Potassium [Moles/Vol] 5.0 mmol/L Normal 3.5-5.1 [facility] Comment on above: Order Comment: Performed By: #### L 500.2500, L100.0100 ####[facility] [address] [place], [address] Sodium [Moles/Vol] 139 mmol/L Normal 136-145 [facility] Comment on above: Order Comment: 213- Performed By: #### L 500.2500, L100.0100 ####[facility] [address] [place], [address] Urea nitrogen [Mass/Vol] 19 mg/dL High 7-18 [facility] Comment on above: Order Comment: 213- Performed By: #### L 500.2500, L100.0100 ####[facility] [address] [place], [address] Basophil percentageOrdered B y: Hieu Watson on 02-12-2023 Basophils/100 WBC (Bld) 1.0 % 0-1 [facility] Chloride [Moles/Vol] 113 mmol/L 98-107 [facility] Eosinophils/100 WBC (Bld) 5.7 % 0-5 [facility] Glucose [Mass/Vol] 120 mg/dL 74-106 [facility] Comment on above: Fasting Glucose resu lt from 100 to 125 mg/dL suggests IMPAIRED HOMEOSTASIS per A.D.A. criteria. Neutrophils (Bld) [#/Vol] 3.4 10*3/uL 2.0-7.7 [facility] Neutrophils/100 WBC (Bld) 46.9 % 47-70 [facility] Potassium [Moles/Vol] 5.0 mmol/L 3.5-5.1 [facility] Sodium [Moles/Vol] 139 mmol/L 136-145 [facility] WBC (Bld) [#/Vol] 7.2 10*3/uL 4.4-11.0 [facility] Blood erythrocytes count (nu mber/volume)Ordered By: Hieu Watson on 02-12-2023 RBC (Bld) [#/Vol] 3.93 10*6/uL 4.6-6.[address] [facility] Blood hemoglobin measurement (mass/volume)Ordered By: Hieu Watson on 02-12-2023 Hemoglobin (Bld) [Mass/Vol] 9.6 g/dL 13.0-16.5 [facility] Blood lymphocytes/100 leukoc ytesOrdered By: Hieu Watson on 02-12-2023 Lymphocytes/100 WBC (Bld) 35.6 % 19-41 [facility] Blood monocytes/100 leukocyt esOrdered By: Hieu Watson on 02-12-2023 Monocytes/100 WBC (Bld) 10.7 % 0-10 [facility] Blood platelet mean volumeOr dered By: Hieu Watson on 02-12-2023 Platelet mean volume (Bld) [Entitic vol] 10.7 fL 6.2-12.0 [facility] CBC W/Diff, Automatedon 01-16 Absolute Lymph 2.57 X10 3/uL Normal 0.83-4.51 [facility] Comment on above: Performed By: #### L 500.2500, L100.0100 ####[facility] [address] [place], [address] Absolute Neut 3.4 X10 3/uL Normal 2.0-7.7 [facility] Comment on above: Performed By: #### L 500.2500, L100.0100 ####[facility] [address] [place], [address] Basophils/100 WBC (Bld) 1.0 % Normal 0-1 [facility] Comment on above: Performed By: #### L 500.2500, L100.0100 ####[facility] [address] [place], [address] Eosinophils/100 WBC (Bld) 5.7 % High 0-5 [facility] Comment on above: Performed By: #### L 500.2500, L100.0100 ####[facility] [address] [place], [address] Erythrocyte distribution width (RBC) [Ratio] 18.8 % High 11.6-14.6 [facility] Comment on above: Performed By: #### L 500.2500, L100.0100 ####[facility] [address] [place], [address] Hematocrit (Bld) [Volume fraction] 28.7 % Low 40-54 [facility] Comment on above: Performed By: #### L 500.2500, L100.0100 ####[facility] [address] [place], [address] Hemoglobin (Bld) [Mass/Vol] 9.6 g/dL Low 13.0-16.5 [facility] Comment on above: Performed By: #### L 500.2500, L100.0100 ####[facility] [address] [place], [address] IG% 0.100 Normal 0.0-0.9 [facility] Comment on above: Result Comment: IG% - Immature Granulocytes (promyelocytes, myelocytes and metamyelocytes) > 1% indicates that a LEFT SHIFT is Present. Performed By: #### L 500.2500, L100.0100 ####[facility] [address] [place], [address] Lymphocytes/100 WBC (Bld) 35.6 % Normal 19-41 [facility] Comment on above: Performed By: #### L 500.2500, L100.0100 ####[facility] [address] [place], [address] MCH (RBC) [Entitic mass] 24.4 pg Low 27.0-32.0 [facility] Comment on above: Performed By: #### L 500.2500, L100.0100 ####[facility] [address] [place], [address] MCHC (RBC) [Mass/Vol] 33.4 g/dL Normal 32-36 [facility] Comment on above: Performed By: #### L 500.2500, L100.0100 ####[facility] [address] [place], [address] MCV (RBC) [Entitic vol] 73.0 fL Low 80-94 [facility] Comment on above: Performed By: #### L 500.2500, L100.0100 ####[facility] [address] [place], [address] Monocytes/100 WBC (Bld) 10.7 % High 0-10 [facility] Comment on above: Performed By: #### L 500.2500, L100.0100 ####[facility] [address] [place], [address] Neutrophils/100 WBC (Bld) 46.9 % Low 47-70 [facility] Comment on above: Performed By: #### L 500.2500, L100.0100 ####[facility] [address] [place], [address] Nucleated RBC (Bld) [#/Vol] 0 10*3/uL Normal 0-5 [facility] Comment on above: Performed By: #### L 500.2500, L100.0100 ####[facility] [address] [place], [address] Platelet mean volume (Bld) [Entitic vol] 10.7 fL Normal 6.2-12.0 [facility] Comment on above: Performed By: #### L 500.2500, L100.0100 ####[facility] [address] [place], [address] Platelets (Bld) [#/Vol] 214 10*3/uL Normal 150-450 [facility] Comment on above: Performed By: #### L 500.2500, L100.0100 ####[facility] [address] [place], [address] RBC (Bld) [#/Vol] 3.93 10*6/uL Low 4.6-6.[address] [facility] Comment on above: Performed By: #### L 500.2500, L100.0100 ####[facility] [address] [place], [address] RDW SD 49.7 fl High 35.1-43.9 [facility] Comment on above: Performed By: #### L 500.2500, L100.0100 ####[facility] [address] [place], [address] WBC (Bld) [#/Vol] 7.2 10*3/uL Normal 4.4-11.0 [facility] Comment on above: Performed By: #### L 500.2500, L100.0100 ####[facility] [address] [place], [address] Determination of erythrocyte mean corpuscular volume (MCV)Ordered By: Hieu Watson on 02-12-2023 MCV (RBC) [Entitic vol] 73.0 fL 80-94 [facility] Hematocrit Auto (Bld) [Volum e fraction]Ordered By: Hieu Watson on 02-12-2023 Hematocrit (Bld) [Volume fraction] 28.7 % 40-54 [facility] Laboratory - Chemistry and C hemistry - challengeOrdered By: Hieu Watson on 02-12-2023 CO2 [Moles/Vol] 26.0 mmol/L 21.0-32.0 [facility] Urea nitrogen/Creatinine [Mass ratio] 17.4 mg/mg 10-20 [facility] Laboratory - Hematology and Cell countsOrdered By: Hieu Watson on 02-12-2023 Erythrocyte distribution width (RBC) [Entitic vol] 49.7 fL 35.1-43.9 [facility] Erythrocyte distribution width (RBC) [Ratio] 18.8 % 11.6-14.6 [facility] Immature granulocytes/100 WBC (Bld) 0.100 % 0.0-0.9 [facility] Comment on above: IG% - Immature Granu locytes (promyelocytes, myelocytes and metamyelocytes) > 1% indicates that a LEFT SHIFT is Present. MCH (RBC) [Entitic mass] 24.4 pg 27.0-32.0 [facility] Nucleated RBC/100 WBC (Bld) [Ratio] 0 % 0-5 [facility] MCHC Auto (RBC) [Mass/Vol]Or dered By: Hieu Watson on 02-12-2023 MCHC (RBC) [Mass/Vol] 33.4 g/dL 32-36 [facility] No Panel InformationOrdered By: Hieu Watson on 02-12-2023 Estimated GFR (MDRD) Amer 90 mL/min >60 [facility] Comment on above: GFR Calc Estimated GFR (MDRD) Non-Af Amer 74 mL/min >60 [facility] Comment on above: Non- GFR Calc Platelets bldOrdered By: Brenda Watson on 02-12-2023 Platelets (Bld) [#/Vol] 214 10*3/uL 150-450 [facility] Serum or plasma calcium yeyo urement (mass/volume)Ordered By: Hieu Watson on 02-12-2023 Calcium [Mass/Vol] 8.3 mg/dL 8.5-10.1 [facility] Serum or plasma creatinine m easurement (mass/volume)Ordered By: Hieu Watson on 02-12-2023 Creatinine [Mass/Vol] 1.09 mg/dL 0.70-1.30 [facility] Comment on above: The validity of the calculated GFR & GFRAA in patients over 70 years has not been determined. Clinical correlation is essential. Serum or plasma urea nitroge n measurement (mass/volume)Ordered By: Hieu Watson on 02-12-2023 Urea nitrogen [Mass/Vol] 19 mg/dL 7-18 [facility] Thin prep Papanicolaou smear with manual screeningOrdered By: Hieu Watson on 02-12-2023 Thin prep Papanicolaou smear with manual screening 0 5-15 [facility] Absolute lymphocyte countOrd ered By: Hieu Watson on 01-12-2023 Lymphocytes Auto (Unsp spec) [#/Vol] 2.63 10*3/uL 0.83-4.51 [facility] Basophil percentageOrdered B y: Hieu Watson on 01-12-2023 Basophils/100 WBC (Bld) 0.8 % 0-1 [facility] Chloride [Moles/Vol] 113 mmol/L 98-107 [facility] Eosinophils/100 WBC (Bld) 5.8 % 0-5 [facility] Glucose [Mass/Vol] 112 mg/dL 74-106 [facility] Comment on above: Fasting Glucose resu lt from 100 to 125 mg/dL suggests IMPAIRED HOMEOSTASIS per A.D.A. criteria. Neutrophils (Bld) [#/Vol] 3.0 10*3/uL 2.0-7.7 [facility] Neutrophils/100 WBC (Bld) 45.0 % 47-70 [facility] Potassium [Moles/Vol] 5.0 mmol/L 3.5-5.1 [facility] Sodium [Moles/Vol] 142 mmol/L 136-145 [facility] WBC (Bld) [#/Vol] 6.6 10*3/uL 4.4-11.0 [facility] Blood erythrocytes count (nu mber/volume)Ordered By: Hieu Watson on 01-12-2023 RBC (Bld) [#/Vol] 4.50 10*6/uL 4.6-6.[address] [facility] Blood hemoglobin measurement (mass/volume)Ordered By: Hieu Watson on 01-12-2023 Hemoglobin (Bld) [Mass/Vol] 11.3 g/dL 13.0-16.5 [facility] Blood lymphocytes/100 leukoc ytesOrdered By: Hieu Watson on 01-12-2023 Lymphocytes/100 WBC (Bld) 39.9 % 19-41 [facility] Blood monocytes/100 leukocyt esOrdered By: Hieu Watson on 01-12-2023 Monocytes/100 WBC (Bld) 8.3 % 0-10 [facility] Blood platelet mean volumeOr dered By: Hieu Watson on 01-12-2023 Platelet mean volume (Bld) [Entitic vol] 10.5 fL 6.2-12.0 [facility] Determination of erythrocyte mean corpuscular volume (MCV)Ordered By: Hieu Watson on 01-12-2023 MCV (RBC) [Entitic vol] 73.6 fL 80-94 [facility] Hematocrit Auto (Bld) [Volum e fraction]Ordered By: Hieu Watson on 01-12-2023 Hematocrit (Bld) [Volume fraction] 33.1 % 40-54 [facility] Laboratory - Chemistry and C hemistry - challengeOrdered By: Hieu Watson on 01-12-2023 CO2 [Moles/Vol] 28.0 mmol/L 21.0-32.0 [facility] Urea nitrogen/Creatinine [Mass ratio] 19.0 mg/mg 10-20 [facility] Laboratory - Hematology and Cell countsOrdered By: Hieu Watson on 01-12-2023 Erythrocyte distribution width (RBC) [Entitic vol] 49.9 fL 35.1-43.9 [facility] Erythrocyte distribution width (RBC) [Ratio] 18.9 % 11.6-14.6 [facility] Immature granulocytes/100 WBC (Bld) 0.200 % 0.0-0.9 [facility] Comment on above: IG% - Immature Granu locytes (promyelocytes, myelocytes and metamyelocytes) > 1% indicates that a LEFT SHIFT is Present. MCH (RBC) [Entitic mass] 25.1 pg 27.0-32.0 [facility] Nucleated RBC/100 WBC (Bld) [Ratio] 0 % 0-5 [facility] MCHC Auto (RBC) [Mass/Vol]Or dered By: Hieu Watson on 01-12-2023 MCHC (RBC) [Mass/Vol] 34.1 g/dL 32-36 [facility] No Panel InformationOrdered By: Hieu Watson on 01-12-2023 Estimated GFR (MDRD) Amer 106 mL/min >60 [facility] Comment on above: GFR Calc Estimated GFR (MDRD) Non-Af Amer 87 mL/min >60 [facility] Comment on above: Non- GFR Calc Platelets bldOrdered By: Brenda Watson on 01-12-2023 Platelets (Bld) [#/Vol] 227 10*3/uL 150-450 [facility] Serum or plasma calcium yeyo urement (mass/volume)Ordered By: Hieu Watson on 01-12-2023 Calcium [Mass/Vol] 8.6 mg/dL 8.5-10.1 [facility] Serum or plasma creatinine m easurement (mass/volume)Ordered By: Hieu Watson on 01-12-2023 Creatinine [Mass/Vol] 0.95 mg/dL 0.70-1.30 [facility] Comment on above: The validity of the calculated GFR & GFRAA in patients over 70 years has not been determined. Clinical correlation is essential. Serum or plasma urea nitroge n measurement (mass/volume)Ordered By: Hieu Watson on 01-12-2023 Urea nitrogen [Mass/Vol] 18 mg/dL 7-18 [facility] Thin prep Papanicolaou smear with manual screeningOrdered By: Hieu Watson on 01-12-2023 Thin prep Papanicolaou smear with manual screening 1 5-15 [facility] Absolute lymphocyte countOrd ered By: Hieu Watson on 01-05-2023 Lymphocytes Auto (Unsp spec) [#/Vol] 2.49 10*3/uL 0.83-4.51 [facility] Basophil percentageOrdered B y: Hieu Watson on 01-05-2023 Basophils/100 WBC (Bld) 0.7 % 0-1 [facility] Chloride [Moles/Vol] 111 mmol/L 98-107 [facility] Eosinophils/100 WBC (Bld) 7.7 % 0-5 [facility] Glucose [Mass/Vol] 169 mg/dL 74-106 [facility] Comment on above: Fasting Glucose resu lt greater than or equal to 126 mg/dL suggests DIABETES MELLITUS per A.D.A. criteria. Neutrophils (Bld) [#/Vol] 3.8 10*3/uL 2.0-7.7 [facility] Neutrophils/100 WBC (Bld) 50.4 % 47-70 [facility] Potassium [Moles/Vol] 5.1 mmol/L 3.5-5.1 [facility] Sodium [Moles/Vol] 140 mmol/L 136-145 [facility] WBC (Bld) [#/Vol] 7.5 10*3/uL 4.4-11.0 [facility] Blood erythrocytes count (nu mber/volume)Ordered By: Hieu Watson on 01-05-2023 RBC (Bld) [#/Vol] 4.08 10*6/uL 4.6-6.[address] [facility] Blood hemoglobin measurement (mass/volume)Ordered By: Hieu Watson on 01-05-2023 Hemoglobin (Bld) [Mass/Vol] 10.1 g/dL 13.0-16.5 [facility] Blood lymphocytes/100 leukoc ytesOrdered By: Hieu Watson on 01-05-2023 Lymphocytes/100 WBC (Bld) 33.1 % 19-41 [facility] Blood monocytes/100 leukocyt esOrdered By: Hieu Watson on 01-05-2023 Monocytes/100 WBC (Bld) 7.8 % 0-10 [facility] Blood platelet mean volumeOr dered By: Hieu Watson on 01-05-2023 Platelet mean volume (Bld) [Entitic vol] 10.2 fL 6.2-12.0 [facility] Determination of erythrocyte mean corpuscular volume (MCV)Ordered By: Hieu Watson on 01-05-2023 MCV (RBC) [Entitic vol] 73.3 fL 80-94 [facility] Hematocrit Auto (Bld) [Volum e fraction]Ordered By: Hieu Watson on 01-05-2023 Hematocrit (Bld) [Volume fraction] 29.9 % 40-54 [facility] Laboratory - Chemistry and C hemistry - challengeOrdered By: Hieu Watson on 01-05-2023 CO2 [Moles/Vol] 25.0 mmol/L 21.0-32.0 [facility] Urea nitrogen/Creatinine [Mass ratio] 19.5 mg/mg 10-20 [facility] Laboratory - Hematology and Cell countsOrdered By: Hieu Watson on 01-05-2023 Erythrocyte distribution width (RBC) [Entitic vol] 49.2 fL 35.1-43.9 [facility] Erythrocyte distribution width (RBC) [Ratio] 18.7 % 11.6-14.6 [facility] Immature granulocytes/100 WBC (Bld) 0.300 % 0.0-0.9 [facility] Comment on above: IG% - Immature Granu locytes (promyelocytes, myelocytes and metamyelocytes) > 1% indicates that a LEFT SHIFT is Present. MCH (RBC) [Entitic mass] 24.8 pg 27.0-32.0 [facility] Nucleated RBC/100 WBC (Bld) [Ratio] 0 % 0-5 [facility] MCHC Auto (RBC) [Mass/Vol]Or dered By: Hieu Watson on 01-05-2023 MCHC (RBC) [Mass/Vol] 33.8 g/dL 32-36 [facility] No Panel InformationOrdered By: Hieu Watson on 01-05-2023 Estimated GFR (MDRD) Amer 102 mL/min >60 [facility] Comment on above: GFR Calc Estimated GFR (MDRD) Non-Af Amer 84 mL/min >60 [facility] Comment on above: Non- GFR Calc Platelets bldOrdered By: Brenda Watson on 01-05-2023 Platelets (Bld) [#/Vol] 217 10*3/uL 150-450 [facility] Serum or plasma calcium yeyo urement (mass/volume)Ordered By: Hieu Watson on 01-05-2023 Calcium [Mass/Vol] 8.2 mg/dL 8.5-10.1 [facility] Serum or plasma creatinine m easurement (mass/volume)Ordered By: Hieu Watson on 01-05-2023 Creatinine [Mass/Vol] 0.98 mg/dL 0.70-1.30 [facility] Comment on above: The validity of the calculated GFR & GFRAA in patients over 70 years has not been determined. Clinical correlation is essential. Serum or plasma urea nitroge n measurement (mass/volume)Ordered By: Hieu Watson on 01-05-2023 Urea nitrogen [Mass/Vol] 19 mg/dL 7-18 [facility] Thin prep Papanicolaou smear with manual screeningOrdered By: Hieu Watson on 01-05-2023 Thin prep Papanicolaou smear with manual screening 4 5-15 [facility] Basophil percentageOrdered B y: Hieu Watson on 12-31-2022 Chloride [Moles/Vol] 112 mmol/L 98-107 [facility] Glucose [Mass/Vol] 110 mg/dL 74-106 [facility] Comment on above: Fasting Glucose resu lt from 100 to 125 mg/dL suggests IMPAIRED HOMEOSTASIS per A.D.A. criteria. Potassium [Moles/Vol] 5.0 mmol/L 3.5-5.1 [facility] Sodium [Moles/Vol] 140 mmol/L 136-145 [facility] WBC (Bld) [#/Vol] 6.6 10*3/uL 4.4-11.0 [facility] Blood erythrocytes count (nu mber/volume)Ordered By: Hieu Watson on 12-31-2022 RBC (Bld) [#/Vol] 3.94 10*6/uL 4.6-6.[address] [facility] Blood hemoglobin measurement (mass/volume)Ordered By: Hieu Watson on 12-31-2022 Hemoglobin (Bld) [Mass/Vol] 9.9 g/dL 13.0-16.5 [facility] Blood platelet mean volumeOr dered By: Hieu Watson on 12-31-2022 Platelet mean volume (Bld) [Entitic vol] 10.6 fL 6.2-12.0 [facility] Determination of erythrocyte mean corpuscular volume (MCV)Ordered By: Hieu Watson on 12-31-2022 MCV (RBC) [Entitic vol] 74.1 fL 80-94 [facility] Hematocrit Auto (Bld) [Volum e fraction]Ordered By: Hieu Watson on 12-31-2022 Hematocrit (Bld) [Volume fraction] 29.2 % 40-54 [facility] Laboratory - Chemistry and C hemistry - challengeOrdered By: Hieu Watson on 12-31-2022 CO2 [Moles/Vol] 24.0 mmol/L 21.0-32.0 [facility] Urea nitrogen/Creatinine [Mass ratio] 22.6 mg/mg 10-20 [facility] Laboratory - Hematology and Cell countsOrdered By: Hieu Watson on 12-31-2022 Erythrocyte distribution width (RBC) [Entitic vol] 50.6 fL 35.1-43.9 [facility] Erythrocyte distribution width (RBC) [Ratio] 18.7 % 11.6-14.6 [facility] MCH (RBC) [Entitic mass] 25.1 pg 27.0-32.0 [facility] MCHC Auto (RBC) [Mass/Vol]Or dered By: Hieu Watson on 12-31-2022 MCHC (RBC) [Mass/Vol] 33.9 g/dL 32-36 [facility] No Panel InformationOrdered By: Hieu Watson on 12-31-2022 Estimated GFR (MDRD) Amer 93 mL/min >60 [facility] Comment on above: GFR Calc Estimated GFR (MDRD) Non-Af Amer 77 mL/min >60 [facility] Comment on above: Non- GFR Calc Platelets bldOrdered By: Brenda Watson on 12-31-2022 Platelets (Bld) [#/Vol] 214 10*3/uL 150-450 [facility] Serum or plasma calcium yeyo urement (mass/volume)Ordered By: Hieu Watson on 12-31-2022 Calcium [Mass/Vol] 8.4 mg/dL 8.5-10.1 [facility] Serum or plasma creatinine m easurement (mass/volume)Ordered By: Hieu Watson on 12-31-2022 Creatinine [Mass/Vol] 1.06 mg/dL 0.70-1.30 [facility] Comment on above: The validity of the calculated GFR & GFRAA in patients over 70 years has not been determined. Clinical correlation is essential. Serum or plasma urea nitroge n measurement (mass/volume)Ordered By: Hieu Watson on 12-31-2022 Urea nitrogen [Mass/Vol] 24 mg/dL 7-18 [facility] Thin prep Papanicolaou smear with manual screeningOrdered By: Hieu Watson on 12-31-2022 Thin prep Papanicolaou smear with manual screening 4 5-15 [facility] Absolute lymphocyte countOrd ered By: Hieu Watson on 12-29-2022 Lymphocytes Auto (Unsp spec) [#/Vol] 2.44 10*3/uL 0.83-4.51 [facility] Basophil percentageOrdered B y: Hieu Watson on 12-29-2022 Basophils/100 WBC (Bld) 0.9 % 0-1 [facility] Chloride [Moles/Vol] 112 mmol/L 98-107 [facility] Eosinophils/100 WBC (Bld) 7.6 % 0-5 [facility] Glucose [Mass/Vol] 144 mg/dL 74-106 [facility] Comment on above: Fasting Glucose resu lt greater than or equal to 126 mg/dL suggests DIABETES MELLITUS per A.D.A. criteria. Neutrophils (Bld) [#/Vol] 3.3 10*3/uL 2.0-7.7 [facility] Neutrophils/100 WBC (Bld) 47.4 % 47-70 [facility] Potassium [Moles/Vol] 4.9 mmol/L 3.5-5.1 [facility] Sodium [Moles/Vol] 140 mmol/L 136-145 [facility] WBC (Bld) [#/Vol] 7.0 10*3/uL 4.4-11.0 [facility] Blood erythrocytes count (nu mber/volume)Ordered By: Hieu Watson on 12-29-2022 RBC (Bld) [#/Vol] 4.31 10*6/uL 4.6-6.[address] [facility] Blood hemoglobin measurement (mass/volume)Ordered By: Hieu Watson on 12-29-2022 Hemoglobin (Bld) [Mass/Vol] 10.8 g/dL 13.0-16.5 [facility] Blood lymphocytes/100 leukoc ytesOrdered By: Hieu Watson on 12-29-2022 Lymphocytes/100 WBC (Bld) 35.0 % 19-41 [facility] Blood monocytes/100 leukocyt esOrdered By: Hieu Watson on 12-29-2022 Monocytes/100 WBC (Bld) 8.8 % 0-10 [facility] Blood platelet mean volumeOr dered By: Hieu Watson on 12-29-2022 Platelet mean volume (Bld) [Entitic vol] 10.3 fL 6.2-12.0 [facility] Determination of erythrocyte mean corpuscular volume (MCV)Ordered By: Hieu Watson on 12-29-2022 MCV (RBC) [Entitic vol] 73.8 fL 80-94 [facility] Hematocrit Auto (Bld) [Volum e fraction]Ordered By: Hieu Watson on 12-29-2022 Hematocrit (Bld) [Volume fraction] 31.8 % 40-54 [facility] Laboratory - Chemistry and C hemistry - challengeOrdered By: Hieu Watson on 12-29-2022 CO2 [Moles/Vol] 26.0 mmol/L 21.0-32.0 [facility] Urea nitrogen/Creatinine [Mass ratio] 22.7 mg/mg 10-20 [facility] Laboratory - Hematology and Cell countsOrdered By: Hieu Watson on 12-29-2022 Erythrocyte distribution width (RBC) [Entitic vol] 49.9 fL 35.1-43.9 [facility] Erythrocyte distribution width (RBC) [Ratio] 18.7 % 11.6-14.6 [facility] Immature granulocytes/100 WBC (Bld) 0.300 % 0.0-0.9 [facility] Comment on above: IG% - Immature Granu locytes (promyelocytes, myelocytes and metamyelocytes) > 1% indicates that a LEFT SHIFT is Present. MCH (RBC) [Entitic mass] 25.1 pg 27.0-32.0 [facility] Nucleated RBC/100 WBC (Bld) [Ratio] 0 % 0-5 [facility] MCHC Auto (RBC) [Mass/Vol]Or dered By: Hieu Watson on 12-29-2022 MCHC (RBC) [Mass/Vol] 34.0 g/dL 32-36 [facility] No Panel InformationOrdered By: Hieu Watson on 12-29-2022 Estimated GFR (MDRD) Amer 108 mL/min >60 [facility] Comment on above: GFR Calc Estimated GFR (MDRD) Non-Af Amer 89 mL/min >60 [facility] Comment on above: Non- GFR Calc Platelets bldOrdered By: Brenda Watson on 12-29-2022 Platelets (Bld) [#/Vol] 240 10*3/uL 150-450 [facility] Serum or plasma calcium yeyo urement (mass/volume)Ordered By: Hieu Watson on 12-29-2022 Calcium [Mass/Vol] 8.2 mg/dL 8.5-10.1 [facility] Serum or plasma creatinine m easurement (mass/volume)Ordered By: Hieu Watson on 12-29-2022 Creatinine [Mass/Vol] 0.93 mg/dL 0.70-1.30 [facility] Comment on above: The validity of the calculated GFR & GFRAA in patients over 70 years has not been determined. Clinical correlation is essential. Serum or plasma urea nitroge n measurement (mass/volume)Ordered By: Hieu Watson on 12-29-2022 Urea nitrogen [Mass/Vol] 21 mg/dL 7-18 [facility] Thin prep Papanicolaou smear with manual screeningOrdered By: Hieu Watson on 12-29-2022 Thin prep Papanicolaou smear with manual screening 2 -15 [facility] Absolute lymphocyte countOrd ered By: Hieu Watson on 12-22-2022 Lymphocytes Auto (Unsp spec) [#/Vol] 2.26 10*3/uL 0.83-4.51 [facility] Basophil percentageOrdered B y: Hieu Watson on 12-22-2022 Basophils/100 WBC (Bld) 0.8 % 0-1 [facility] Chloride [Moles/Vol] 111 mmol/L 98-107 [facility] Eosinophils/100 WBC (Bld) 7.2 % 0-5 [facility] Glucose [Mass/Vol] 137 mg/dL 74-106 [facility] Comment on above: Fasting Glucose resu lt greater than or equal to 126 mg/dL suggests DIABETES MELLITUS per A.D.A. criteria. Neutrophils (Bld) [#/Vol] 3.8 10*3/uL 2.0-7.7 [facility] Neutrophils/100 WBC (Bld) 52.7 % 47-70 [facility] Potassium [Moles/Vol] 4.9 mmol/L 3.5-5.1 [facility] Sodium [Moles/Vol] 140 mmol/L 136-145 [facility] WBC (Bld) [#/Vol] 7.2 10*3/uL 4.4-11.0 [facility] Blood erythrocytes count (nu mber/volume)Ordered By: Hieu Watson on 12-22-2022 RBC (Bld) [#/Vol] 4.21 10*6/uL 4.6-6.[address] [facility] Blood hemoglobin measurement (mass/volume)Ordered By: Hieu Watson on 12-22-2022 Hemoglobin (Bld) [Mass/Vol] 10.5 g/dL 13.0-16.5 [facility] Blood lymphocytes/100 leukoc ytesOrdered By: Hieu Watson on 12-22-2022 Lymphocytes/100 WBC (Bld) 31.4 % 19-41 [facility] Blood monocytes/100 leukocyt esOrdered By: Hieu Watson on 12-22-2022 Monocytes/100 WBC (Bld) 7.6 % 0-10 [facility] Blood platelet mean volumeOr dered By: Hieu Watson on 12-22-2022 Platelet mean volume (Bld) [Entitic vol] 9.9 fL 6.2-12.0 [facility] Determination of erythrocyte mean corpuscular volume (MCV)Ordered By: Hieu Watson on 12-22-2022 MCV (RBC) [Entitic vol] 72.4 fL 80-94 [facility] Hematocrit Auto (Bld) [Volum e fraction]Ordered By: Hieu Watson on 12-22-2022 Hematocrit (Bld) [Volume fraction] 30.5 % 40-54 [facility] Laboratory - Chemistry and C hemistry - challengeOrdered By: Hiue Watson on 12-22-2022 CO2 [Moles/Vol] 26.0 mmol/L 21.0-32.0 [facility] Urea nitrogen/Creatinine [Mass ratio] 23.6 mg/mg 10-20 [facility] Laboratory - Hematology and Cell countsOrdered By: Hieu Watson on 12-22-2022 Erythrocyte distribution width (RBC) [Entitic vol] 48.7 fL 35.1-43.9 [facility] Erythrocyte distribution width (RBC) [Ratio] 18.8 % 11.6-14.6 [facility] Immature granulocytes/100 WBC (Bld) 0.300 % 0.0-0.9 [facility] Comment on above: IG% - Immature Granu locytes (promyelocytes, myelocytes and metamyelocytes) > 1% indicates that a LEFT SHIFT is Present. MCH (RBC) [Entitic mass] 24.9 pg 27.0-32.0 [facility] Nucleated RBC/100 WBC (Bld) [Ratio] 0 % 0-5 [facility] MCHC Auto (RBC) [Mass/Vol]Or dered By: Hieu Watson on 12-22-2022 MCHC (RBC) [Mass/Vol] 34.4 g/dL 32-36 [facility] No Panel InformationOrdered By: Hieu Watson on 12-22-2022 Estimated GFR (MDRD) Amer 93 mL/min >60 [facility] Comment on above: GFR Calc Estimated GFR (MDRD) Non-Af Amer 77 mL/min >60 [facility] Comment on above: Non- GFR Calc Platelets bldOrdered By: Brenda Watson on 12-22-2022 Platelets (Bld) [#/Vol] 267 10*3/uL 150-450 [facility] Serum or plasma calcium yeyo urement (mass/volume)Ordered By: Hieu Watson on 12-22-2022 Calcium [Mass/Vol] 8.6 mg/dL 8.5-10.1 [facility] Serum or plasma creatinine m easurement (mass/volume)Ordered By: Hieu Watson on 12-22-2022 Creatinine [Mass/Vol] 1.06 mg/dL 0.70-1.30 [facility] Comment on above: The validity of the calculated GFR & GFRAA in patients over 70 years has not been determined. Clinical correlation is essential. Serum or plasma urea nitroge n measurement (mass/volume)Ordered By: Hieu Watson on 12-22-2022 Urea nitrogen [Mass/Vol] 25 mg/dL 7-18 [facility] Thin prep Papanicolaou smear with manual screeningOrdered By: Hieu Watson on 12-22-2022 Thin prep Papanicolaou smear with manual screening 3 5-15 [facility] Absolute lymphocyte countOrd ered By: Hieu Watson on 12-15-2022 Lymphocytes Auto (Unsp spec) [#/Vol] 2.21 10*3/uL 0.83-4.51 [facility] Basophil percentageOrdered B y: Hieu Watson on 12-15-2022 Basophils/100 WBC (Bld) 0.8 % 0-1 [facility] Chloride [Moles/Vol] 111 mmol/L 98-107 [facility] Cholesterol [Mass/Vol] 59 mg/dL <200 [facility] Comment on above: <200 mg/dL Desirable 200-240 mg/dL Borderline >240 mg/dL High Risk Eosinophils/100 WBC (Bld) 8.6 % 0-5 [facility] Glucose [Mass/Vol] 107 mg/dL 74-106 [facility] Comment on above: Fasting Glucose resu lt from 100 to 125 mg/dL suggests IMPAIRED HOMEOSTASIS per A.D.A. criteria. Neutrophils (Bld) [#/Vol] 4.0 10*3/uL 2.0-7.7 [facility] Neutrophils/100 WBC (Bld) 52.0 % 47-70 [facility] Potassium [Moles/Vol] 5.2 mmol/L 3.5-5.1 [facility] Sodium [Moles/Vol] 138 mmol/L 136-145 [facility] Triglyceride [Mass/Vol] 187 mg/dL <199 [facility] Comment on above: The drugs N-Acetylcy steine and Metamizole may falsely depress this assay.Serum Triglycerides Reference Interval Normal <150 mg/dL Borderline high 150 - 199 mg/dL High 200 - 499 mg/dL Very High > or = 500 mg/dL WBC (Bld) [#/Vol] 7.6 10*3/uL 4.4-11.0 [facility] Blood erythrocytes count (nu mber/volume)Ordered By: Hieu Watson on 12-15-2022 RBC (Bld) [#/Vol] 3.81 10*6/uL 4.6-6.[address] [facility] Blood hemoglobin measurement (mass/volume)Ordered By: Hieu Watson on 12-15-2022 Hemoglobin (Bld) [Mass/Vol] 9.5 g/dL 13.0-16.5 [facility] Blood lymphocytes/100 leukoc ytesOrdered By: Hieu Watson on 12-15-2022 Lymphocytes/100 WBC (Bld) 29.1 % 19-41 [facility] Blood monocytes/100 leukocyt esOrdered By: Hieu Watson on 12-15-2022 Monocytes/100 WBC (Bld) 9.1 % 0-10 [facility] Blood platelet mean volumeOr dered By: Hieu Watson on 12-15-2022 Platelet mean volume (Bld) [Entitic vol] 10.4 fL 6.2-12.0 [facility] Determination of erythrocyte mean corpuscular volume (MCV)Ordered By: Hieu Watson on 12-15-2022 MCV (RBC) [Entitic vol] 74.0 fL 80-94 [facility] Hematocrit Auto (Bld) [Volum e fraction]Ordered By: Hieu Watson on 12-15-2022 Hematocrit (Bld) [Volume fraction] 28.2 % 40-54 [facility] Laboratory - Chemistry and C hemistry - challengeOrdered By: Hieu Watson on 12-15-2022 CO2 [Moles/Vol] 25.0 mmol/L 21.0-32.0 [facility] Urea nitrogen/Creatinine [Mass ratio] 20.2 mg/mg 10-20 [facility] Laboratory - Hematology and Cell countsOrdered By: Hieu Watson on 12-15-2022 Erythrocyte distribution width (RBC) [Entitic vol] 50.0 fL 35.1-43.9 [facility] Erythrocyte distribution width (RBC) [Ratio] 18.6 % 11.6-14.6 [facility] Immature granulocytes/100 WBC (Bld) 0.400 % 0.0-0.9 [facility] Comment on above: IG% - Immature Granu locytes (promyelocytes, myelocytes and metamyelocytes) > 1% indicates that a LEFT SHIFT is Present. MCH (RBC) [Entitic mass] 24.9 pg 27.0-32.0 [facility] Nucleated RBC/100 WBC (Bld) [Ratio] 0 % 0-5 [facility] MCHC Auto (RBC) [Mass/Vol]Or dered By: Hieu Watson on 12-15-2022 MCHC (RBC) [Mass/Vol] 33.7 g/dL 32-36 [facility] No Panel InformationOrdered By: Hieu Watson on 12-15-2022 Estimated GFR (MDRD) Amer 95 mL/min >60 [facility] Comment on above: GFR Calc Estimated GFR (MDRD) Non-Af Amer 78 mL/min >60 [facility] Comment on above: Non- GFR Calc Vitamin D 25-Hydroxy 53.1 ng/mL [facility] Comment on above: Vitamin D 25(OH) Sta tus Range Deficiency <20 ng/mL (50nmol/L) Insufficiency 20 - 30 ng/mL (50 - 75 nmol/L) Sufficiency 30 - 100 ng/mL (75 - 250 nmol/L) Toxicity >100 ng/mL (>250 nmol/L) Platelets bldOrdered By: Brenda Watson on 12-15-2022 Platelets (Bld) [#/Vol] 284 10*3/uL 150-450 [facility] Serum or plasma calcium yeyo urement (mass/volume)Ordered By: Hieu Watson on 12-15-2022 Calcium [Mass/Vol] 8.3 mg/dL 8.5-10.1 [facility] Serum or plasma cholesterol in HDL measurement (mass/volume)Ordered By: Hieu Watson on 12-15-2022 Cholesterol in HDL [Mass/Vol] 22 mg/dL >40 [facility] Comment on above: The drugs N-Acetylcy steine and Metamizole may falsely depress this assay. Reference Range HDL <40 mg/dL Low HDL Cholesterol HDL >or= 60 mg/dL High HDL Cholesterol Serum or plasma cholesterol in VLDL measurement (mass/volume)Ordered By: Hieu Watson on 12-15-2022 Cholesterol in VLDL [Mass/Vol] 37 mg/dL 5-40 [facility] Serum or plasma creatinine m easurement (mass/volume)Ordered By: Hieu Watson on 12-15-2022 Creatinine [Mass/Vol] 1.04 mg/dL 0.70-1.30 [facility] Comment on above: The validity of the calculated GFR & GFRAA in patients over 70 years has not been determined. Clinical correlation is essential. Serum or plasma low density lipoprotein (LDL) cholesterol measurement (mass/volume)Ordered By: Hieu Watson on 12-15-2022 Cholesterol in LDL [Mass/Vol] 0 mg/dL 0-130 [facility] Serum or plasma urea nitroge n measurement (mass/volume)Ordered By: Hieu Watson on 12-15-2022 Urea nitrogen [Mass/Vol] 21 mg/dL 7-18 [facility] Thin prep Papanicolaou smear with manual screeningOrdered By: Hieu Watson on 12-15-2022 Thin prep Papanicolaou smear with manual screening 2 5-15 [facility] Whole blood hemoglobin A1c/t otal hemoglobin ratio (mass fraction)Ordered By: Hieu Watson on 12-15-2022 HbA1c (Bld) [Mass fraction] 7.0 % 3.8-5.6 [facility] Comment on above: Normal < 5.7 % Predi abetic 5.7 - 6.4 % Diabetic >or= 6.5 % Please note range changes. XR Foot - bilateral AP and L ateral and obliqueon 10-24-2022 IMPRESSION: No findings to suggest inflammatory arthropathy. Nondisplaced fracture of the left great toe proximal phalangeal shaft. Hookman: BRYCE Transcribe Date/Time: Oct 24 2022 9:42P Dictated by : TRE TAYLOR MD This examination was interpreted and the report reviewed and electronically signed by: TRE TAYLOR MD on Oct 24 2022 9:43PM [facility] * * *Final Report* * * DATE OF EXAM: Oct 23 2022 12:06PM MIGUELINA [id number] - XR FOOT 3V AP/LAT/OBL RAJINDER / PROCEDURE REASON: multiple diagnoses * * * * Physician Interpretation * * * * EXAMINATION / TECHNIQUE: XR FOOT 3V AP/LAT/OBL RAJINDER HISTORY: RHEUMATOID ARTHRITIS, RASH OF BOTH HANDS, DYSPLASTIC TOENAIL History of rheumatoid arthritis Rash of both hands Dysplastic toenail COMPARISON: None RESULT: The bones are diffusely demineralized. There is a nondisplaced fracture of the left great toe proximal phalangeal shaft. Remaining bones are intact. Mild bilateral hallux valgus. Joint spaces are maintained bilaterally. No osseous erosion. [facility] * * *Final Report* * * DATE OF EXAM: Oct 23 2022 12:06PM MIGUELINA [id number] - XR FOOT 3V AP/LAT/OBL RAJINDER / PROCEDURE REASON: multiple diagnoses * * * * Physician Interpretation * * * * EXAMINATION / TECHNIQUE: XR FOOT 3V AP/LAT/OBL RAJINDER HISTORY: RHEUMATOID ARTHRITIS, RASH OF BOTH HANDS, DYSPLASTIC TOENAIL History of rheumatoid arthritis Rash of both hands Dysplastic toenail COMPARISON: None RESULT: The bones are diffusely demineralized. There is a nondisplaced fracture of the left great toe proximal phalangeal shaft. Remaining bones are intact. Mild bilateral hallux valgus. Joint spaces are maintained bilaterally. No osseous erosion. IMPRESSION IMPRESSION: No findings to suggest inflammatory arthropathy. Nondisplaced fracture of the left great toe proximal phalangeal shaft. Hookman: BRYCE Transcribe Date/Time: Oct 24 2022 9:42P Dictated by : TRE TAYLOR MD This examination was interpreted and the report reviewed and electronically signed by: TRE TAYLOR MD on Oct 24 2022 9:43PM [facility] XR Hand - bilateral PA and L ateral and Obliqueon 10-24-2022 IMPRESSION: No findings to suggest inflammatory arthropathy. Hookman: PSCB Transcribe Date/Time: Oct 24 2022 9:42P Dictated by : TRE TAYLOR MD This examination was interpreted and the report reviewed and electronically signed by: TRE TAYLOR MD on Oct 24 2022 9:42PM EST [facility] * * *Final Report* * * DATE OF EXAM: Oct 23 2022 12:06PM MIGUELINA [id number] - XR HAND 3V PA/LAT/OBL RAJINDER / PROCEDURE REASON: multiple diagnoses * * * * Physician Interpretation * * * * EXAMINATION / TECHNIQUE: XR HAND 3V PA/LAT/OBL RAJINDER HISTORY: RHEUMATOID ARTHRITIS, RASH OF BOTH HANDS, DYSPLASTIC TOENAIL History of rheumatoid arthritis Rash of both hands Dysplastic toenail COMPARISON: None. RESULT: No acute fracture or malalignment in either hand or wrist. Joint spaces are maintained bilaterally. No osseous erosion. [facility] Provider, [facility] - 10/24/2022 * * *Final Report* * * DATE OF EXAM: Oct 23 2022 12:06PM MDDewayne 5556 - XR HAND 3V PA/LAT/OBL RAJINDER / PROCEDURE REASON: multiple diagnoses * * * * Physician Interpretation * * * * EXAMINATION / TECHNIQUE: XR HAND 3V PA/LAT/OBL RAJINDER HISTORY: RHEUMATOID ARTHRITIS, RASH OF BOTH HANDS, DYSPLASTIC TOENAIL History of rheumatoid arthritis Rash of both hands Dysplastic toenail COMPARISON: None. RESULT: No acute fracture or malalignment in either hand or wrist. Joint spaces are maintained bilaterally. No osseous erosion. IMPRESSION IMPRESSION: No findings to suggest inflammatory arthropathy. Hookman: PSCBekah Transcribe Date/Time: Oct 24 2022 9:42P Dictated by : TRE TAYLOR MD This examination was interpreted and the report reviewed and electronically signed by: TRE TAYLOR MD on Oct 24 2022 9:42PM EST [facility] XR Hand - bilateral PA and L ateral and ObliqueOrdered By: [facility] Provider on 10-24-2022 [facility] No Panel Informationon 10-23 Radiology Study observation (narrative) [facility] Absolute lymphocyte counton 04-10-2022 Lymphocytes Auto (Unsp spec) [#/Vol] 2.42 10*3/uL 0.83-4.51 [facility] Work Phone: [phone] Basophil percentageon 2021 Basophil percentage 0 SEEN /hpf 0-5 [facility] Work Phone: Basophils/100 WBC (Bld) 1.0 % 0-1 [facility] Work Phone: Chloride [Moles/Vol] 112 mmol/L 98-107 [facility] Work Phone: Eosinophils/100 WBC (Bld) 8.3 % 0-5 [facility] Work Phone: Glucose [Mass/Vol] 194 mg/dL 74-106 [facility] Work Phone: Comment on above: Fasting Glucose resu lt greater than or equal to 126 mg/dL suggests DIABETES MELLITUS per A.D.A. criteria. Lactate [Moles/Vol] 1.3 mmol/L 0.4-2.[address] [facility] Work Phone: Neutrophils (Bld) [#/Vol] 3.5 10*3/uL 2.0-7.7 [facility] Work Phone: [phone] Neutrophils/100 WBC (Bld) 49.7 % 47-70 [facility] Work Phone: [phone] Potassium [Moles/Vol] 5.6 mmol/L 3.5-5.1 [facility] Work Phone: [phone] Sodium [Moles/Vol] 141 mmol/L 136-145 [facility] Work Phone: WBC (Bld) [#/Vol] 7.1 10*3/uL 4.4-11.0 [facility] Work Phone: Bilirubin Test strip Ql (U)o n 04-10-2022 Bilirubin Ql (U) Negative Negative [facility] Work Phone: [phone] Blood erythrocytes count (nu mber/volume)on 04-10-2022 RBC (Bld) [#/Vol] 4.47 10*6/uL 4.6-6.[address] [facility] Work Phone: Blood hemoglobin measurement (mass/volume)on 04-10-2022 Hemoglobin (Bld) [Mass/Vol] 10.9 g/dL 13.0-16.5 [facility] Work Phone: Blood lymphocytes/100 leukoc yteson 04-10-2022 Lymphocytes/100 WBC (Bld) 33.9 % 19-41 [facility] Work Phone: Blood monocytes/100 leukocyt eson 04-10-2022 Monocytes/100 WBC (Bld) 7.0 % 0-10 [facility] Work Phone: Blood platelet mean volumeon 04-10-2022 Platelet mean volume (Bld) [Entitic vol] 9.8 fL 6.2-12.0 [facility] Work Phone: Determination of erythrocyte mean corpuscular volume (MCV)on 04-10-2022 MCV (RBC) [Entitic vol] 72.5 fL 80-94 [facility] Work Phone: Hematocrit Auto (Bld) [Volum e fraction]on 04-10-2022 Hematocrit (Bld) [Volume fraction] 32.4 % 40-54 [facility] Work Phone: Ketones Test strip Ql (U)on 04-10-2022 Ketones Ql (U) Negative Negative [facility] Work Phone: Laboratory - Chemistry and C hemistry - challengeon 04-10-2022 CO2 [Moles/Vol] 27.0 mmol/L 21.0-32.0 [facility] Work Phone: Urea nitrogen/Creatinine [Mass ratio] 17.2 mg/mg 10-20 [facility] Work Phone: Laboratory - Hematology and Cell countson 04-10-2022 Erythrocyte distribution width (RBC) [Entitic vol] 50.4 fL 35.1-43.9 [facility] Work Phone: Erythrocyte distribution width (RBC) [Ratio] 19.4 % 11.6-14.6 [facility] Work Phone: Immature granulocytes/100 WBC (Bld) 0.100 % 0.0-0.9 [facility] Work Phone: Comment on above: IG% - Immature Granu locytes (promyelocytes, myelocytes and metamyelocytes) > 1% indicates that a LEFT SHIFT is Present. MCH (RBC) [Entitic mass] 24.4 pg 27.0-32.0 [facility] Work Phone: Nucleated RBC/100 WBC (Bld) [Ratio] 0 % 0-5 [facility] Work Phone: MCHC Auto (RBC) [Mass/Vol]on 04-10-2022 MCHC (RBC) [Mass/Vol] 33.6 g/dL 32-36 [facility] Work Phone: Mucus LM Ql (Urine sed)on Mucus Ql (Urine sed) 0 SEEN /hpf [facility] Work Phone: Nitrite Test strip Ql (U)on 04-10-2022 Nitrite Ql (U) Negative Negative [facility] Work Phone: No Panel Informationon 04-10 Estimated Creatinine Clearance Calc 68.41 ml/min [facility] Work Phone: Estimated GFR (MDRD) Amer 79 mL/min >60 [facility] Work Phone: Comment on above: GFR Calc Estimated GFR (MDRD) Non-Af Amer 65 mL/min >60 [facility] Work Phone: Comment on above: Non- GFR Calc Platelets bldon 04-10-2022 Platelets (Bld) [#/Vol] 214 10*3/uL 150-450 [facility] Work Phone: Protein Test strip Ql (U)on 04-10-2022 Protein Ql (U) Negative Negative [facility] Work Phone: Serum or plasma acetone yeyo urement (mass/volume)on 04-10-2022 Acetone [Mass/Vol] Negative NEG [facility] Work Phone: Serum or plasma calcium yeyo urement (mass/volume)on 04-10-2022 Calcium [Mass/Vol] 8.7 mg/dL 8.5-10.1 [facility] Work Phone: Serum or plasma creatinine m easurement (mass/volume)on 04-10-2022 Creatinine [Mass/Vol] 1.22 mg/dL 0.70-1.30 [facility] Work Phone: Comment on above: The validity of the calculated GFR & GFRAA in patients over 70 years has not been determined. Clinical correlation is essential. Serum or plasma urea nitroge n measurement (mass/volume)on 04-10-2022 Urea nitrogen [Mass/Vol] 21 mg/dL 7-18 [facility] Work Phone: Squamous epithelial cells de tection in urine sediment by light microscopyon 04-10-2022 Epithelial cells.squamous LM Ql (Urine sed) 0 SEEN /hpf 0-5 [facility] Work Phone: Thin prep Papanicolaou smear with manual screeningon 04-10-2022 Thin prep Papanicolaou smear with manual screening 2 5-15 [facility] Work Phone: Urine blood detectionon 03-18 RBC Ql (U) Negative Negative [facility] Work Phone: RBC Ql (U) 0 SEEN /hpf 0-5 [facility] Work Phone: Urine clarityon 04-10-2022 Clarity (U) Clear Clear [facility] Work Phone: Urine color determinationon 04-10-2022 Color (U) Yellow Yellow [facility] Work Phone: Urine glucose detectionon Glucose Ql (U) Normal mg/dl Normal [facility] Work Phone: Urine leukocyte esterase det ection by dipstickon 04-10-2022 Leukocyte esterase Test strip Ql (U) Negative Negative [facility] Work Phone: Urine pHon 04-10-2022 pH (U) 7.0 [pH] 5.0 - 8.0 [facility] Work Phone: Urine sediment bacteria coun t by microscopy (number/high power field)on 04-10-2022 Bacteria LM.HPF (Urine sed) [#/Area] 0 /[HPF] None Seen [facility] Work Phone: Urine specific gravity measu rementon 04-10-2022 Specific gravity (U) [Rel density] 1.010 1.002-1.030 [facility] Work Phone: Urobilinogen Auto test strip Ql (U)on 04-10-2022 Urobilinogen Ql (U) Normal mg/dl Normal [facility] Work Phone: CNPNon 10-15-2021 CNPN Telephone (INTMWS) -- BERTA JARAMILLO ([id number]) 1965 M Date Time Provider Department 10/15/21 FLORI EL INTTERESA During your visit today, we recorded the following information about you: Nelly Pike Ma 10/15/2021 7:09 PM Signed Please call to reschedule - day is over booked with provider. Nelly Pike Ma 10/17/2021 7:17 AM Signed Voicemail left advising patient of cancellation. appt cancelled . Please reschedule in appropriate time slot not overbooking schedule when patient returns call. Allergies As of Date: 10/15/2021 (Not on File) Date Reviewed: Never Reviewed Reason for Visit: Appointment [[id number]] Problem List As Of Date: 10/15/2021 (None) Encounter Status:Closed by NELLY PIKE MA on 10/17/21 Normal [facility] .Auto Diffon 12-07-2018 Ammonia (P) [Mass/Vol] 0.50 10 3/mcL Normal 0.09-1.40 [facility] ([place]) Comment on above: Performed By: #### C BC, ADIFF, ANEU, CMP, GFR #### [address] [address] Basophils (Bld) [#/Vol] 0.10 10 3/mcL Normal 0.00-0.27 [facility] ([place]) Comment on above: Performed By: #### C BC, ADIFF, ANEU, CMP, GFR #### [address] [address] Basophils/100 WBC (Bld) 0.9 % Normal 0.0-2.5 [facility] ([place] Comment on above: Performed By: #### C BC, ADIFF, ANEU, CMP, GFR #### [address] [address] Eosinophils (Bld) [#/Vol] 0.20 10 3/mcL Normal 0.00-0.65 [facility] ([place] Comment on above: Performed By: #### C BC, ADIFF, ANEU, CMP, GFR #### [address] [address] Eosinophils/100 WBC (Bld) 1.5 % Normal 0.0-6.0 [facility] ([place] Comment on above: Performed By: #### C BC, ADIFF, ANEU, CMP, GFR #### [address] [address] Lymphocytes (Bld) [#/Vol] 2.60 10 3/mcL Normal 0.90-4.32 [facility] ([place] Comment on above: Performed By: #### C BC, ADIFF, ANEU, CMP, GFR #### [address] [address] Lymphocytes/100 WBC (Bld) 24.8 % Normal 20.0-40.0 [facility] ([place] Comment on above: Performed By: #### C BC, ADIFF, ANEU, CMP, GFR #### [address] [address] Monocytes/100 WBC (Bld) 5.0 % Normal 2.0-13.0 [facility] ([place] Comment on above: Performed By: #### C BC, ADIFF, ANEU, CMP, GFR #### [address] [address] Neutrophils/100 WBC (Bld) 67.8 % Normal 50.0-75.0 [facility] ([place] Comment on above: Performed By: #### C BC, ADIFF, ANEU, CMP, GFR #### [address] [address] .GFRon 12-07-2018 GFR Non- >60 Normal [facility] ([place] Comment on above: Result Comment: GFR Population mean for , Non- Americans Ages 20-29 = 116 mL/min/1.73 sq.m. Ages 30-39 = 107 mL/min/1.73 sq.m. Ages 40-49 = 99 mL/min/1.73 sq.m. Ages 50-59 = 93 mL/min/1.73 sq.m. Ages 60-69 = 85 mL/min/1.73 sq.m. Ages 70+ = 75 mL/min/1.73 sq.m. Chronic Kidney Disease: Less than 60 mL/min/1.73 square meters End Stage Renal Disease: Less than 15 mL/min/1.73 square meters Performed By: #### C BC, ADIFF, ANEU, CMP, GFR #### [address] [address] GFR >60 [facility] [place] Comment on above: Result Comment: GFR Population mean for , Non- Americans Ages 20-29 = 116 mL/min/1.73 sq.m. Ages 30-39 = 107 mL/min/1.73 sq.m. Ages 40-49 = 99 mL/min/1.73 sq.m. Ages 50-59 = 93 mL/min/1.73 sq.m. Ages 60-69 = 85 mL/min/1.73 sq.m. Ages 70+ = 75 mL/min/1.73 sq.m. Chronic Kidney Disease: Less than 60 mL/min/1.73 square meters End Stage Renal Disease: Less than 15 mL/min/1.73 square meters Performed By: #### C BC, ADIFF, ANEU, CMP, GFR #### [address] [address] .NEUABSon 12-07-2018 Neutrophils (Bld) [#/Vol] 7.10 10 3/mcL Normal 2.25-8.10 [facility] ([place] Comment on above: Performed By: #### C BC, ADIFF, ANEU, CMP, GFR #### [address] [address] BMPon 12-07-2018 Calcium [Mass/Vol] 7.8 mg/dL Low 8.4-10.1 [facility] ([place]) Comment on above: Performed By: #### C BC, ADIFF, ANEU, CMP, GFR #### [place] [address] Chloride [Moles/Vol] 101 mmol/L Normal 98-110 [facility] [place] Comment on above: Performed By: #### C BC, ADIFF, ANEU, CMP, GFR #### [address] [address] CO2 [Moles/Vol] 32 mmol/L Normal 22-32 [facility] ([place] Comment on above: Performed By: #### C BC, ADIFF, ANEU, CMP, GFR #### [place] [address] Creatinine [Mass/Vol] 0.70 mg/dL Normal 0.60-1.40 [facility] ([place]) Comment on above: Performed By: #### C BC, ADIFF, ANEU, CMP, GFR #### [place] [address] Electrolyte Balance 8.0 mEq/L Normal 4.0-15.0 [facility] [place] Comment on above: Performed By: #### C BC, ADIFF, ANEU, CMP, GFR #### [place] [address] Glucose [Mass/Vol] 168 mg/dL High 70-110 [facility] ([place] Comment on above: Performed By: #### C BC, ADIFF, ANEU, CMP, GFR #### [place] [id number] Potassium [Moles/Vol] 3.7 mmol/L Normal 3.5-5.0 [facility] ([place]) Comment on above: Performed By: #### C BC, ADIFF, ANEU, CMP, GFR #### [place] [id number] Sodium [Moles/Vol] 141 mmol/L Normal 136-145 [facility] ([place] Comment on above: Performed By: #### C BC, ADIFF, ANEU, CMP, GFR #### [place] [id number] Urea nitrogen [Mass/Vol] 6.0 mg/dL Low 8.0-22.0 [facility] ([place] Comment on above: Performed By: #### C BC, ADIFF, ANEU, CMP, GFR #### [place] [id number] Urea nitrogen/Creatinine [Mass ratio] 8.6 ratio Low 10.0-22.0 [facility] ([place] Comment on above: Performed By: #### C BC, ADIFF, ANEU, CMP, GFR #### [address] [address] CBCon 12-07-2018 Erythrocyte distribution width (RBC) [Ratio] 19.2 % High 11.5-15.5 [facility] ([place] Comment on above: Performed By: #### C BC, ADIFF, ANEU, CMP, GFR #### [place] [id number] Hematocrit (Bld) [Volume fraction] 36.8 % Low 40.0-52.0 [facility] ([place] Comment on above: Performed By: #### C BC, ADIFF, ANEU, CMP, GFR #### [place] [id number] Hemoglobin (Bld) [Mass/Vol] 12.7 G/dL Low 13.0-17.5 [facility] ([place] Comment on above: Performed By: #### C BC, ADIFF, ANEU, CMP, GFR #### [address] [address] MCH (RBC) [Entitic mass] 27.1 pg Normal 27.0-33.0 [facility] ([place] Comment on above: Performed By: #### C BC, ADIFF, ANEU, CMP, GFR #### [place] [id number] MCHC (RBC) [Mass/Vol] 34.7 G/dL Normal 32.0-36.0 [facility] ([place] Comment on above: Performed By: #### C BC, ADIFF, ANEU, CMP, GFR #### [place] [id number] MCV (RBC) [Entitic vol] 78.2 fL Low 81.0-100.0 [facility] ([place] Comment on above: Performed By: #### C BC, ADIFF, ANEU, CMP, GFR #### [place] [id number] Platelet mean volume (Bld) [Entitic vol] 6.9 fL Normal 6.4-10.5 [facility] ([place] Comment on above: Performed By: #### C BC, ADIFF, ANEU, CMP, GFR #### [place] [id number] Platelets (Bld) [#/Vol] 335 10 3/mcL Normal 150-450 [facility] ([place] Comment on above: Performed By: #### C BC, ADIFF, ANEU, CMP, GFR #### [place] [id number] RBC (Bld) [#/Vol] 4.70 10 6/mcL Normal 4.50-6.00 [facility] [place] Comment on above: Performed By: #### C BC, ADIFF, ANEU, CMP, GFR #### [place] [id number] WBC (Bld) [#/Vol] 10.40 10 3/mcL Normal 4.50-10.80 [facility] ([place]) Comment on above: Performed By: #### C BC, ADIFF, ANEU, CMP, GFR #### [address] [address] HFPon 12-07-2018 Bili Indirect Unable to Calculate Normal 0.1-10.0 [facility] ([place]) Comment on above: Result Comment: Unab le to calculate this test result accurately. Results used to calculate this test are outside the reportable range. Performed By: #### C BC, ADIFF, ANEU, CMP, GFR #### [place] [id number] Bili Direct <0.1 Normal 0.0-0.4 [facility] ([place] Comment on above: Performed By: #### C BC, ADIFF, ANEU, CMP, GFR #### [address] [address] Albumin/Globulin [Mass ratio] 0.9 {ratio} Normal 0.9-1.6 [facility] ([place] Comment on above: Performed By: #### C BC, ADIFF, ANEU, CMP, GFR #### [address] [address] ALP [Catalytic activity/Vol] 146 U/L High 38-126 [facility] ([place] Comment on above: Performed By: #### C BC, ADIFF, ANEU, CMP, GFR #### [address] [address] Bili Total 0.3 mg/dL Normal 0.2-1.2 [facility] ([place] Comment on above: Performed By: #### C BC, ADIFF, ANEU, CMP, GFR #### [address] [address] Globulin (S) [Mass/Vol] 3.4 G/dL Normal 1.5-3.8 [facility] ([place] Comment on above: Performed By: #### C BC, ADIFF, ANEU, CMP, GFR #### [address] [address] Protein [Mass/Vol] 6.3 G/dL Normal 6.0-8.5 [facility] ([place] Comment on above: Performed By: #### C BC, ADIFF, ANEU, CMP, GFR #### [address] [address] Albumin [Mass/Vol] 2.9 G/dL Low 3.2-4.8 [facility] ([place]) Comment on above: Performed By: #### C BC, ADIFF, ANEU, CMP, GFR #### [address] [address] ALT [Catalytic activity/Vol] 16 U/L Normal 12-55 [facility] ([place] Comment on above: Performed By: #### C BC, ADIFF, ANEU, CMP, GFR #### [address] [address] AST [Catalytic activity/Vol] 13 U/L Normal 8-34 [facility] ([place] Comment on above: Performed By: #### C BC, ADIFF, ANEU, CMP, GFR #### [address] [address] MGon 12-07-2018 Magnesium [Mass/Vol] 1.8 mg/dL Normal 1.6-2.4 [facility] [place] Comment on above: Performed By: #### C BC, ADIFF, ANEU, CMP, GFR #### [address] [address] PBNPon 12-07-2018 Natriuretic peptide B (Bld) [Mass/Vol] 47 pg/mL Normal 0-900 [facility] ([place] Comment on above: Result Comment: NT-p roBNP results of less than 300 pg/mL effectively rules out acute congestive heart failure with 99% negative predictive value. Performed By: #### C BC, ADIFF, ANEU, CMP, GFR #### [address] [address] TROPIon 12-07-2018 Troponin I.cardiac [Mass/Vol] ng/mL Normal 0.000-0.040 [facility] ([place] Comment on above: Result Comment: Trop onin I reference ranges (01/22/14): 0.00-0.040 ng/mL Negative and non-diagnostic. >0.040 ng/mL Consistent with cardiac damage, increased clinical risk and possibility of myocardial infarction. Serial measurements, a rise & fall in test results, clinical history, appropriate symptoms and/or ECG changes may help assess possibility of MD. *Other non-acute coronary syndrome conditions such as CHF, myocarditis, pulmonary emboli, sepsis and cardiac surgery could result in myocardial damage and increased troponin levels. Performed By: #### C BC, ADIFF, ANEU, CMP, GFR #### [address] [address] XR CHEST 1 VIEWon 12-07-2018 XR CHEST 1 VIEW ORIGINAL XR CHEST 1 VIEW CLINICAL STATEMENT: chest pain COMPARISON: None FINDINGS: The cardiomediastinal contours are not enlarged. There is no focal consolidation, vascular congestion, pleural effusion or pneumothorax. There are low lung volumes hypoventilatory changes. IMPRESSION: No acute radiographic abnormality. Low lung volumes hypoventilatory changes. I have personally reviewed the images of this examination and agree with the resident's findings and interpretation Interpreted By: Brett Longoria MD Preliminary Report By: Jayson Callaway MD Electronically Signed By: Brett Longoria MD Dictated Date: 12/07/2018 5:29:24 PM Prelim Date: 12/07/2018 5:29:44 PM Sign Date: 12/07/2018 5:49:01 PM Normal [facility] ([place]) .Auto Diffon 10-13-2018 Ammonia (P) [Mass/Vol] 0.50 10 3/mcL Normal 0.09-1.40 [facility] ([place] Comment on above: Performed By: #### C BC, ADIFF, ANEU, ESR, BMP, GFR, PBNP #### [address] [address] Basophils (Bld) [#/Vol] 0.10 10 3/mcL Normal 0.00-0.27 [facility] ([place]) Comment on above: Performed By: #### C BC, ADIFF, ANEU, ESR, BMP, GFR, PBNP #### [address] [address] Basophils/100 WBC (Bld) 1.2 % Normal 0.0-2.5 [facility] ([place] Comment on above: Performed By: #### C BC, ADIFF, ANEU, ESR, BMP, GFR, PBNP #### [address] [address] Eosinophils (Bld) [#/Vol] 0.60 10 3/mcL Normal 0.00-0.65 [facility] ([place] Comment on above: Performed By: #### C BC, ADIFF, ANEU, ESR, BMP, GFR, PBNP #### [address] [address] Eosinophils/100 WBC (Bld) 5.3 % Normal 0.0-6.0 [facility] ([place]) Comment on above: Performed By: #### C BC, ADIFF, ANEU, ESR, BMP, GFR, PBNP #### [address] [address] Lymphocytes (Bld) [#/Vol] 2.70 10 3/mcL Normal 0.90-4.32 [facility] ([place]) Comment on above: Performed By: #### C BC, ADIFF, ANEU, ESR, BMP, GFR, PBNP #### [address] [address] Lymphocytes/100 WBC (Bld) 24.8 % Normal 20.0-40.0 [facility] ([place] Comment on above: Performed By: #### C BC, ADIFF, ANEU, ESR, BMP, GFR, PBNP #### [address] [address] Monocytes/100 WBC (Bld) 4.3 % Normal 2.0-13.0 [facility] ([place] Comment on above: Performed By: #### C BC, ADIFF, ANEU, ESR, BMP, GFR, PBNP #### [address] [address] Neutrophils/100 WBC (Bld) 64.4 % Normal 50.0-75.0 [facility] ([place] Comment on above: Performed By: #### C BC, ADIFF, ANEU, ESR, BMP, GFR, PBNP #### [address] [address] .GFRon 10-13-2018 GFR >60 Normal [facility] [place] Comment on above: Result Comment: GFR Population mean for , Non- Americans Ages 20-29 = 116 mL/min/1.73 sq.m. Ages 30-39 = 107 mL/min/1.73 sq.m. Ages 40-49 = 99 mL/min/1.73 sq.m. Ages 50-59 = 93 mL/min/1.73 sq.m. Ages 60-69 = 85 mL/min/1.73 sq.m. Ages 70+ = 75 mL/min/1.73 sq.m. Chronic Kidney Disease: Less than 60 mL/min/1.73 square meters End Stage Renal Disease: Less than 15 mL/min/1.73 square meters Performed By: #### C BC, ADIFF, ANEU, CMP, GFR #### [address] [address] GFR Non- >60 Normal [facility] ([place] Comment on above: Result Comment: GFR Population mean for , Non- Americans Ages 20-29 = 116 mL/min/1.73 sq.m. Ages 30-39 = 107 mL/min/1.73 sq.m. Ages 40-49 = 99 mL/min/1.73 sq.m. Ages 50-59 = 93 mL/min/1.73 sq.m. Ages 60-69 = 85 mL/min/1.73 sq.m. Ages 70+ = 75 mL/min/1.73 sq.m. Chronic Kidney Disease: Less than 60 mL/min/1.73 square meters End Stage Renal Disease: Less than 15 mL/min/1.73 square meters Performed By: #### C BC, ADIFF, ANEU, CMP, GFR #### [address] [address] .NEUABSon 10-13-2018 Neutrophils (Bld) [#/Vol] 7.10 10 3/mcL Normal 2.25-8.10 [facility] ([place] Comment on above: Performed By: #### C BC, ADIFF, ANEU, CMP, GFR #### [address] [address] BMPon 10-13-2018 Calcium [Mass/Vol] 8.5 mg/dL Normal 8.4-10.1 [facility] ([place]) Comment on above: Order Comment: Gross ly hemolyzed - please recollect. Notified front edger 10/13/2018 14:45:19 EDT Performed By: #### C BC, ADIFF, ANEU, CMP, GFR #### [address] [address] Chloride [Moles/Vol] 102 mmol/L Normal 98-110 [facility] [place] Comment on above: Order Comment: Gross ly hemolyzed - please recollect. Notified front edger 10/13/2018 14:45:19 EDT Performed By: #### C BC, ADIFF, ANEU, CMP, GFR #### [address] [address] CO2 [Moles/Vol] 28 mmol/L Normal 22-32 [facility] ([place] Comment on above: Order Comment: Gross ly hemolyzed - please recollect. Notified front edger 10/13/2018 14:45:19 EDT Performed By: #### C BC, ADIFF, ANEU, CMP, GFR #### [address] [address] Creatinine [Mass/Vol] 0.79 mg/dL Normal 0.60-1.40 [facility] ([place]) Comment on above: Order Comment: Gross ly hemolyzed - please recollect. Notified front edger 10/13/2018 14:45:19 EDT Performed By: #### C BC, ADIFF, ANEU, CMP, GFR #### [address] [address] Electrolyte Balance 8.0 mEq/L Normal 4.0-15.0 [facility] [place] Comment on above: Order Comment: Gross ly hemolyzed - please recollect. Notified front edger 10/13/2018 14:45:19 EDT Performed By: #### C BC, ADIFF, ANEU, CMP, GFR #### [address] [address] Glucose [Mass/Vol] 119 mg/dL High 70-110 [facility] ([place] Comment on above: Order Comment: Gross ly hemolyzed - please recollect. Notified front edger 10/13/2018 14:45:19 EDT Performed By: #### C BC, ADIFF, ANEU, CMP, GFR #### [address] [address] Potassium [Moles/Vol] 3.8 mmol/L Normal 3.5-5.0 [facility] ([place]) Comment on above: Order Comment: Gross ly hemolyzed - please recollect. Notified front edger 10/13/2018 14:45:19 EDT Performed By: #### C BC, ADIFF, ANEU, CMP, GFR #### [address] [address] Sodium [Moles/Vol] 138 mmol/L Normal 136-145 [facility] ([place]) Comment on above: Order Comment: Gross ly hemolyzed - please recollect. Notified front edger 10/13/2018 14:45:19 EDT Performed By: #### C BC, ADIFF, ANEU, CMP, GFR #### [address] [address] Urea nitrogen [Mass/Vol] 8.0 mg/dL Normal 8.0-22.0 [facility] ([place] Comment on above: Order Comment: Gross ly hemolyzed - please recollect. Notified front edger 10/13/2018 14:45:19 EDT Performed By: #### C BC, ADIFF, ANEU, CMP, GFR #### [address] [address] Urea nitrogen/Creatinine [Mass ratio] 10.1 ratio Normal 10.0-22.0 [facility] ([place] Comment on above: Order Comment: Gross ly hemolyzed - please recollect. Notified front edger 10/13/2018 14:45:19 EDT Performed By: #### C BC, ADIFF, ANEU, CMP, GFR #### [address] [address] CBCon 10-13-2018 Erythrocyte distribution width (RBC) [Ratio] 19.6 % High 11.5-15.5 [facility] ([place] Comment on above: Performed By: #### C BC, ADIFF, ANEU, ESR, BMP, GFR, PBNP #### [place] [id number] Hematocrit (Bld) [Volume fraction] 40.8 % Normal 40.0-52.0 [facility] ([place] Comment on above: Performed By: #### C BC, ADIFF, ANEU, ESR, BMP, GFR, PBNP #### [place] [id number] Hemoglobin (Bld) [Mass/Vol] 13.9 G/dL Normal 13.0-17.5 [facility] ([place] Comment on above: Performed By: #### C BC, ADIFF, ANEU, ESR, BMP, GFR, PBNP #### [place] [id number] MCH (RBC) [Entitic mass] 26.2 pg Low 27.0-33.0 [facility] ([place] Comment on above: Performed By: #### C BC, ADIFF, ANEU, ESR, BMP, GFR, PBNP #### [place] [id number] MCHC (RBC) [Mass/Vol] 34.2 G/dL Normal 32.0-36.0 [facility] ([place]) Comment on above: Performed By: #### C BC, ADIFF, ANEU, ESR, BMP, GFR, PBNP #### [place] [id number] MCV (RBC) [Entitic vol] 76.5 fL Low 81.0-100.0 [facility] ([place] Comment on above: Performed By: #### C BC, ADIFF, ANEU, ESR, BMP, GFR, PBNP #### [place] [id number] Platelet mean volume (Bld) [Entitic vol] 7.5 fL Normal 6.4-10.5 [facility] ([place] Comment on above: Performed By: #### C BC, ADIFF, ANEU, ESR, BMP, GFR, PBNP #### [place] [id number] Platelets (Bld) [#/Vol] 356 10 3/mcL Normal 150-450 [facility] ([place] Comment on above: Performed By: #### C BC, ADIFF, ANEU, ESR, BMP, GFR, PBNP #### [place] [address] RBC (Bld) [#/Vol] 5.33 10 6/mcL Normal 4.50-6.00 [facility] [place] Comment on above: Performed By: #### C BC, ADIFF, ANEU, ESR, BMP, GFR, PBNP #### [place] [address] WBC (Bld) [#/Vol] 11.00 10 3/mcL High 4.50-10.80 [facility] ([place]) Comment on above: Performed By: #### C BC, ADIFF, ANEU, ESR, BMP, GFR, PBNP #### [place] [address] ESRon 10-13-2018 ESR (Bld) [Velocity] 63 mm/h High 0-20 [facility] [place] Comment on above: Performed By: #### C BC, ADIFF, ANEU, CMP, GFR #### [place] [address] PBNPon 10-13-2018 Natriuretic peptide B (Bld) [Mass/Vol] 15 pg/mL Normal 0-900 [facility] ([place] Comment on above: Result Comment: NT-p roBNP results of less than 300 pg/mL effectively rules out acute congestive heart failure with 99% negative predictive value. Performed By: #### C BC, ADIFF, ANEU, CMP, GFR #### [place] [address] .Auto Diffon 08-17-2018 Ammonia (P) [Mass/Vol] 0.40 10 3/mcL Normal 0.09-1.40 [facility] ([place] Comment on above: Performed By: #### C BC, ADIFF, ANEU, CMP, GFR #### [place] [address] Basophils (Bld) [#/Vol] 0.10 10 3/mcL Normal 0.00-0.27 [facility] ([place] Comment on above: Performed By: #### C BC, ADIFF, ANEU, CMP, GFR #### [address] [address] Basophils/100 WBC (Bld) 1.0 % Normal 0.0-2.5 [facility] ([place] Comment on above: Performed By: #### C BC, ADIFF, ANEU, CMP, GFR #### [address] [address] Eosinophils (Bld) [#/Vol] 0.10 10 3/mcL Normal 0.00-0.65 [facility] ([place] Comment on above: Performed By: #### C BC, ADIFF, ANEU, CMP, GFR #### [address] [address] Eosinophils/100 WBC (Bld) 1.1 % Normal 0.0-6.0 [facility] ([place] Comment on above: Performed By: #### C BC, ADIFF, ANEU, CMP, GFR #### [address] [address] Lymphocytes (Bld) [#/Vol] 2.60 10 3/mcL Normal 0.90-4.32 [facility] ([place] Comment on above: Performed By: #### C BC, ADIFF, ANEU, CMP, GFR #### [address] [address] Lymphocytes/100 WBC (Bld) 22.1 % Normal 20.0-40.0 [facility] ([place] Comment on above: Performed By: #### C BC, ADIFF, ANEU, CMP, GFR #### [address] [address] Monocytes/100 WBC (Bld) 3.2 % Normal 2.0-13.0 [facility] ([place] Comment on above: Performed By: #### C BC, ADIFF, ANEU, CMP, GFR #### [address] [address] Neutrophils/100 WBC (Bld) 72.6 % Normal 50.0-75.0 [facility] ([place] Comment on above: Performed By: #### C BC, ADIFF, ANEU, CMP, GFR #### [address] [address] .GFRon 08-17-2018 GFR Non- >60 Normal [facility] ([place] Comment on above: Result Comment: GFR Population mean for , Non- Americans Ages 20-29 = 116 mL/min/1.73 sq.m. Ages 30-39 = 107 mL/min/1.73 sq.m. Ages 40-49 = 99 mL/min/1.73 sq.m. Ages 50-59 = 93 mL/min/1.73 sq.m. Ages 60-69 = 85 mL/min/1.73 sq.m. Ages 70+ = 75 mL/min/1.73 sq.m. Chronic Kidney Disease: Less than 60 mL/min/1.73 square meters End Stage Renal Disease: Less than 15 mL/min/1.73 square meters Performed By: #### C BC, ADIFF, ANEU, CMP, GFR #### [address] [address] GFR >60 Normal [facility] [place] Comment on above: Result Comment: GFR Population mean for , Non- Americans Ages 20-29 = 116 mL/min/1.73 sq.m. Ages 30-39 = 107 mL/min/1.73 sq.m. Ages 40-49 = 99 mL/min/1.73 sq.m. Ages 50-59 = 93 mL/min/1.73 sq.m. Ages 60-69 = 85 mL/min/1.73 sq.m. Ages 70+ = 75 mL/min/1.73 sq.m. Chronic Kidney Disease: Less than 60 mL/min/1.73 square meters End Stage Renal Disease: Less than 15 mL/min/1.73 square meters Performed By: #### C BC, ADIFF, ANEU, CMP, GFR #### [address] [address] .NEUABSon 08-17-2018 Neutrophils (Bld) [#/Vol] 8.40 10 3/mcL High 2.25-8.10 [facility] ([place] Comment on above: Performed By: #### C BC, ADIFF, ANEU, CMP, GFR #### [place] [id number] CBCon 08-17-2018 Erythrocyte distribution width (RBC) [Ratio] 18.1 % High 11.5-15.5 [facility] ([place] Comment on above: Performed By: #### C BC, ADIFF, ANEU, CMP, GFR #### [place] [address] Hematocrit (Bld) [Volume fraction] 38.7 % Low 40.0-52.0 [facility] ([place] Comment on above: Performed By: #### C BC, ADIFF, ANEU, CMP, GFR #### [place] [address] Hemoglobin (Bld) [Mass/Vol] 13.3 G/dL Normal 13.0-17.5 [facility] ([place] Comment on above: Performed By: #### C BC, ADIFF, ANEU, CMP, GFR #### [place] [address] MCH (RBC) [Entitic mass] 26.6 pg Low 27.0-33.0 [facility] ([place] Comment on above: Performed By: #### C BC, ADIFF, ANEU, CMP, GFR #### [place] [id number] MCHC (RBC) [Mass/Vol] 34.3 G/dL Normal 32.0-36.0 [facility] ([place]) Comment on above: Performed By: #### C BC, ADIFF, ANEU, CMP, GFR #### [place] [id number] MCV (RBC) [Entitic vol] 77.6 fL Low 81.0-100.0 [facility] ([place]) Comment on above: Performed By: #### C BC, ADIFF, ANEU, CMP, GFR #### [place] [address] Platelet mean volume (Bld) [Entitic vol] 7.8 fL Normal 6.4-10.5 [facility] ([place] Comment on above: Performed By: #### C BC, ADIFF, ANEU, CMP, GFR #### [place] [id number] Platelets (Bld) [#/Vol] 356 10 3/mcL Normal 150-450 [facility] ([place] Comment on above: Performed By: #### C BC, ADIFF, ANEU, CMP, GFR #### [place] [id number] RBC (Bld) [#/Vol] 4.99 10 6/mcL Normal 4.50-6.00 [facility] ([place] Comment on above: Performed By: #### C BC, ADIFF, ANEU, CMP, GFR #### [place] [id number] WBC (Bld) [#/Vol] 11.60 10 3/mcL High 4.50-10.80 [facility] ([place]) Comment on above: Performed By: #### C BC, ADIFF, ANEU, CMP, GFR #### [place] [address] CMPon 08-17-2018 Albumin/Globulin [Mass ratio] 0.6 {ratio} Low 0.9-1.6 [facility] ([place] Comment on above: Performed By: #### C BC, ADIFF, ANEU, CMP, GFR #### [place] [address] ALP [Catalytic activity/Vol] 168 U/L High 38-126 [facility] ([place] Comment on above: Performed By: #### C BC, ADIFF, ANEU, CMP, GFR #### [place] [address] AST [Catalytic activity/Vol] 23 U/L Normal 8-34 [facility] ([place] Comment on above: Performed By: #### C BC, ADIFF, ANEU, CMP, GFR #### [place] [address] Bili Total 0.4 mg/dL Normal 0.2-1.2 [facility] ([place] Comment on above: Performed By: #### C BC, ADIFF, ANEU, CMP, GFR #### [address] [address] Creatinine [Mass/Vol] 0.71 mg/dL Normal 0.60-1.40 [facility] ([place]) Comment on above: Performed By: #### C BC, ADIFF, ANEU, CMP, GFR #### [address] [address] Globulin (S) [Mass/Vol] 5.3 G/dL High 1.5-3.8 [facility] ([place]) Comment on above: Performed By: #### C BC, ADIFF, ANEU, CMP, GFR #### [address] [address] Protein [Mass/Vol] 8.4 G/dL Normal 6.0-8.5 [facility] ([place]) Comment on above: Performed By: #### C BC, ADIFF, ANEU, CMP, GFR #### [address] [address] Urea nitrogen/Creatinine [Mass ratio] 8.5 ratio Low 10.0-22.0 [facility] ([place] Comment on above: Performed By: #### C BC, ADIFF, ANEU, CMP, GFR #### [address] [address] Albumin [Mass/Vol] 3.1 G/dL Low 3.2-4.8 [facility] ([place]) Comment on above: Performed By: #### C BC, ADIFF, ANEU, CMP, GFR #### [address] [address] ALT [Catalytic activity/Vol] 36 U/L Normal 12-55 [facility] ([place] Comment on above: Performed By: #### C BC, ADIFF, ANEU, CMP, GFR #### [address] [address] Calcium [Mass/Vol] 8.7 mg/dL Normal 8.4-10.1 [facility] ([place]) Comment on above: Performed By: #### C BC, ADIFF, ANEU, CMP, GFR #### [address] [address] Chloride [Moles/Vol] 98 mmol/L Normal 98-110 [facility] [place] Comment on above: Performed By: #### C BC, ADIFF, ANEU, CMP, GFR #### [address] [address] CO2 [Moles/Vol] 30 mmol/L Normal 22-32 [facility] ([place] Comment on above: Performed By: #### C BC, ADIFF, ANEU, CMP, GFR #### [address] [address] Electrolyte Balance 8.0 mEq/L Normal 4.0-15.0 [facility] [place] Comment on above: Performed By: #### C BC, ADIFF, ANEU, CMP, GFR #### [address] [address] Glucose [Mass/Vol] 179 mg/dL High 70-110 [facility] ([place]) Comment on above: Performed By: #### C BC, ADIFF, ANEU, CMP, GFR #### [address] [address] Potassium [Moles/Vol] 3.3 mmol/L Low 3.5-5.0 [facility] ([place]) Comment on above: Performed By: #### C BC, ADIFF, ANEU, CMP, GFR #### [address] [address] Sodium [Moles/Vol] 136 mmol/L Normal 136-145 [facility] ([place]) Comment on above: Performed By: #### C BC, ADIFF, ANEU, CMP, GFR #### [address] [address] Urea nitrogen [Mass/Vol] 6.0 mg/dL Low 8.0-22.0 [facility] ([place]) Comment on above: Performed By: #### C BC, ADIFF, ANEU, CMP, GFR #### [address] [address] [address] ABD/PELVIS W/ IV CONTRAST ONLYon 08-17-2018 CT ABD/PELVIS W/ IV CONTRAST ONLY ORIGINAL CT ABD/PELVIS W/ IV CONTRAST ONLY This exam was performed according to our departmental dose optimization program, and includes the following measures where applicable: automated exposure control, adjustment of the mAs and/or kVp according to patient size and/or exam, and an iterative reconstruction algorithm. CLINICAL STATEMENT: Abdominal pain. COMPARISON: None FINDINGS: The lung bases are clear. Liver, gallbladder and biliary tree, pancreas, spleen, stomach and duodenum, large and small bowel loops including a normal appendix, urinary bladder and prostate gland are unremarkable. No acute bone findings. IMPRESSION: No visible acute process. Interpreted By: Sarah Royal MD Preliminary Report By: Sarah Royal MD Electronically Signed By: Sarah Royal MD Dictated Date: 08/17/2018 8:22:18 PM Prelim Date: 08/17/2018 8:22:18 PM Sign Date: 08/17/2018 8:27:31 PM Normal [facility] ([place]) LIPon 08-17-2018 Lipase Level 380 U/L Normal 73-393 [facility] ([place]) Comment on above: Performed By: #### L IP #### [place] [address] UAon 08-17-2018 Color (U) Yellow Normal [facility] ([place]) Comment on above: Performed By: #### U A #### [place] [address] Glucose (U) [Mass/Vol] Negative Normal Negative [facility] ([place]) Comment on above: Performed By: #### U A #### [place] [address] Ketones Ql (U) Negative Normal Neg-Trace [facility] ([place] Comment on above: Performed By: #### U A #### [place] [address] UA Appear Clear Normal [facility] ([place] Comment on above: Performed By: #### U A #### [place] [address] UA Blood Negative Normal Neg-Trace [facility] ([place]) Comment on above: Performed By: #### U A #### [place] [address] UA Leuk Est Negative Normal Negative [facility] ([place] Comment on above: Performed By: #### U A #### [place] [address] UA Nitrite Negative Normal Negative [facility] ([place] Comment on above: Performed By: #### U A #### [place] [address] UA pH 5.5 Normal 5.0 - 8.0 [facility] ([place] Comment on above: Performed By: #### U A #### [place] [address] UA Protein Negative Normal Negative [facility] ([place] Comment on above: Performed By: #### U A #### [place] [address] UA Spec Grav <=1.005 [facility] ([place] Comment on above: Performed By: #### U A #### [place] [address] UA Specimen Type Clean Catch Normal [facility] ([place] Comment on above: Performed By: #### U A #### [place] [address] UA Urobilinogen 0.2 E.U./dL Normal [facility] ([place] Comment on above: Performed By: #### U A #### [place] [address] Urobilinogen Qn (U) Negative Normal Neg-Trace [facility] [place] Comment on above: Performed By: #### U A #### [place] [address] ANAon 06-03-2018 Nuclear Ab IF titer (S) [facility] Comment on above: Order Comment: nhc Performed at: [facility] [address], [place], [place] [id number] [employer] News: Jovani Aguilera PhD, Phone: [phone] Performed By: #### A NA #### [facility] RESULTS Nuclear Ab IF titer (S) Comment [facility] Comment on above: Order Comment: cac Performed at: [address] [id number] [employer] News: Jovani Aguilera PhD, Phone: [phone] Result Comment: A po sitive MERY result may occur in healthy individuals (low titer) or be associated with a variety of diseases. See interpretation chart which is not all inclusive: . Pattern Antigen Detected Suggested Disease Association Homogeneous DNA(ds,ss), SLE - High titers Nucleosomes, Histones Drug-induced SLE Speckled Sm, APRON WORKER, SCL-70, SLE,MCTD,PSS (diffuse form), SS-A/SS-B Sjogrens Nucleolar SCL-70, PM-1/SCL High titers Scleroderma, PM/DM Centromere Centromere PSS (limited form) w/Crest syndrome variable Nuclear Dot Sp100,[id number] Primary Biliary Cirrhosis Nuclear GP210, Primary Biliary Cirrhosis Membrane zachariah A,B,C Performed By: #### A NA #### [facility] RESULTS Nuclear Ab IF titer (S) 1:80 Normal [facility] Comment on above: Order Comment: nhc Performed at: [address] [id number] [employer] News: Jovani Aguilera PhD, Phone: [phone] Performed By: #### A NA #### [facility] RESULTS Nuclear Ab IF titer (S) Positive Abnormal [facility] Comment on above: Order Comment: nhc Performed at: [address] [id number] [employer] News: Jovani Aguilera PhD, Phone: [phone] Result Comment: Nega tive <1:80 Borderline 1:80 Positive >1:80 Performed By: #### A NA #### [facility] RESULTS CCP IgG Abon 06-03-2018 CCP Antibodies IgG/IgA 6 units Normal 0-19 [facility] Comment on above: Order Comment: nhc Performed at: [address] [id number] [employer] News: Arnav Coates MD, Phone: [phone] Result Comment: Nega tive <20 Weak positive 20 - 39 Moderate positive 40 - 59 Strong positive >59 Performed By: #### R AQNT, CCPIGG #### [facility] RESULTS Hepatitis C Antibodyon 06-02 Hepatitis C Ab <0.1 Normal 0.0-0.9 [facility] Comment on above: Order Comment: nhc Performed at: [address] [id number] [employer] News: Jovani Aguilera PhD, Phone: [phone] Result Comment: Nega tive: < 0.8 Indeterminate: 0.8 - 0.9 Positive: > 0.9 . The CDC recommends that a positive HCV antibody result be followed up with a HCV Nucleic Acid Amplification test (478386). Performed By: #### H EPCAB #### [facility] RESULTS Rheumatoid Factoron 06-02-19 19 RA Latex Turbid <10.0 Normal 0.0-13.9 [facility] Comment on above: Order Comment: nhc Performed at: - [facility] [id number] [employer] News: Jovani Aguilera PhD, Phone: [phone] Performed By: #### R AQNT, CCPIGG #### [facility] RESULTS C-Reactive Proteinon 019 CRP mass conc 31.90 mg/L High <=2.99 [facility] Comment on above: Order Comment: nhc Performed By: #### C RPR, CMP #### [facility] [address] [place] [address] CBC with Diffon 05-31-2018 Basophils #/vol (Bld) 0.1 x(10)3/cumm Normal 0.0-0.1 [facility] Comment on above: Order Comment: nhc Performed By: #### C BCDIFF #### [facility] [address] [place] [address] Basophils/100 WBC (Bld) 0.5 % Normal 0.0-1.0 [facility] Comment on above: Order Comment: nhc Performed By: #### C BCDIFF #### [facility] [address] [place] [address] Eosinophils #/vol (Bld) 0.2 x(10)3/cumm Normal 0.0-0.4 [facility] Comment on above: Order Comment: nhc Performed By: #### C BCDIFF #### [facility] [address] [place] [address] Eosinophils/100 WBC (Bld) 2.0 % Normal 0.0-6.1 [facility] Comment on above: Order Comment: nhc Performed By: #### C BCDIFF #### [facility] [address] [place] [address] Erythrocyte distribution width Ratio (RBC) 18.2 % High 11.1-15.3 [facility] Comment on above: Order Comment: nhc Performed By: #### C BCDIFF #### [facility] [address] [place], [place] [id number] Hematocrit Volume Fraction (Bld) 40.6 % Normal 37.6-50.6 [facility] Comment on above: Order Comment: nhc Performed By: #### C BCDIFF #### [facility] [address] [place], [place] [phone] Hemoglobin mass conc (Bld) 14.1 g/dL Normal 12.9-17.5 [facility] Comment on above: Order Comment: nhc Performed By: #### C BCDIFF #### [facility] [address] [place], [place] [address] Lymphocytes #/vol (Bld) 3.1 x(10)3/cumm High 0.8-2.9 [facility] Comment on above: Order Comment: nhc Performed By: #### C BCDIFF #### [facility] [address] [place], [place] [address] Lymphocytes/100 WBC (Bld) 29.6 % Normal 12.2-42.6 [facility] Comment on above: Order Comment: nhc Performed By: #### C BCDIFF #### [facility] [address] [place], [place] [phone] MCH Entitic mass (RBC) 27.1 pg Low 27.2-33.6 [facility] Comment on above: Order Comment: nhc Performed By: #### C BCDIFF #### [facility] [address] [place] [address] MCHC mass conc (RBC) 34.7 g/dL Normal 32.9-35.3 [facility] Comment on above: Order Comment: nhc Performed By: #### C BCDIFF #### [facility] [address] [place] [address] MCV Entitic volume (RBC) 78.3 fL Low 81.3-96.7 [facility] Comment on above: Order Comment: nhc Performed By: #### C BCDIFF #### [facility] [address] [place] [address] Monocytes #/vol (Bld) 0.4 x(10)3/cumm Normal 0.2-0.8 [facility] Comment on above: Order Comment: nhc Performed By: #### C BCDIFF #### [facility] [address] [place] [address] Monocytes/100 WBC (Bld) 3.7 % Normal 3.3-11.6 [facility] Comment on above: Order Comment: nhc Performed By: #### C BCDIFF #### [facility] [address] [place] [address] Neutrophils #/vol (Bld) 6.7 x(10)3/cumm Normal 1.3-7.4 [facility] Comment on above: Order Comment: nhc Performed By: #### C BCDIFF #### [facility] [address] [place] [address] Platelet mean volume Entitic volume (Bld) 7.6 fL Normal 6.4-10.0 [facility] Comment on above: Order Comment: nhc Performed By: #### C BCDIFF #### [facility] [address] [place] [address] Platelets #/vol (Bld) 332 x(10)3/cumm Normal 138-367 [facility] Comment on above: Order Comment: nhc Performed By: #### C BCDIFF #### [facility] [address] [place] [address] Plt Morph normal Normal [facility] Comment on above: Order Comment: nhc Performed By: #### C BCDIFF #### [facility] [address] [place] [address] RBC #/vol (Bld) 5.18 X(10)6/cumm Normal 4.20-5.80 [facility] Comment on above: Order Comment: nhc Performed By: #### C BCDIFF #### [facility] [address] [place] [address] RBC Morph cont [facility] Comment on above: Order Comment: nhc Performed By: #### C BCDIFF #### [facility] [address] [place] [address] RBC morphology finding Nom (Bld) sl aniso, occ target cells Normal [facility] Comment on above: Order Comment: nhc Performed By: #### C BCDIFF #### [facility] [address] [place] [address] Segmented neutrophils/100 WBC (Bld) 64.2 % Normal 44.9-78.8 [facility] Comment on above: Order Comment: nhc Performed By: #### C BCDIFF #### [facility] [address] [place] [address] WBC #/vol (Bld) 10.5 x(10)3/cumm High 3.6-10.3 [facility] Comment on above: Order Comment: nhc Performed By: #### C BCDIFF #### [facility] [address] [place] [address] WBC Morph Normal [facility] Comment on above: Order Comment: nhc Performed By: #### C BCDIFF #### [facility] [address] [place] [address] Comprehensive Metabolic Pane karon 05-31-2018 Albumin mass conc 3.5 g/dL Normal 3.4-5.0 [facility] Comment on above: Order Comment: nhc Performed By: #### C RPR, CMP #### [facility] [address] [place] [address] ALP enzyme act/vol 156 U/L High 45-117 [facility] Comment on above: Order Comment: nhc Performed By: #### C RPR, CMP #### [facility] [address] [place] [address] ALT enzyme act/vol 15 U/L Normal 12-78 [facility] Comment on above: Order Comment: nhc Performed By: #### C RPR, CMP #### [facility] [address] [place] [address] Anion gap molar conc 6 mmol/L Normal 5-10 [facility] Comment on above: Order Comment: nhc Performed By: #### C RPR, CMP #### [facility] [address] [place] [address] AST enzyme act/vol 8 U/L Low 15-37 [facility] Comment on above: Order Comment: nhc Performed By: #### C RPR, CMP #### [facility] [address] [place] [address] Bili, Total 0.3 mg/dL Normal 0.2-1.0 [facility] Comment on above: Order Comment: nhc Performed By: #### C RPR, CMP #### [facility] [address] [place] [address] Calcium mass conc 8.6 mg/dL Normal 8.5-10.1 [facility] Comment on above: Order Comment: nhc Performed By: #### C RPR, CMP #### [facility] [address] [place] [address] Chloride molar conc 102 mmol/L Normal 98-107 [facility] Comment on above: Order Comment: nhc Performed By: #### C RPR, CMP #### [facility] [address] [place] [address] CO2 molar conc 28 mmol/L Normal 21-32 [facility] Comment on above: Order Comment: nhc Performed By: #### C RPR, CMP #### [facility] [address] [place] [address] Creatinine mass conc 0.75 mg/dL Normal 0.60-1.30 [facility] Comment on above: Order Comment: nhc Performed By: #### C RPR, CMP #### [facility] [address] [place] [address] eGFR -Amer >60 Normal >=60 [facility] Comment on above: Order Comment: nhc Performed By: #### C RPR, CMP #### [facility] [address] [place] [address] GFR/1.73 sq M predicted among non-blacks MDRD vol rate/area (S/P/Bld) mL/min/{1.73_m2} Normal >=60 [facility] Comment on above: Order Comment: nhc Performed By: #### C RPR, CMP #### [facility] [address] [place] [address] Glucose mass conc 143 mg/dL High 74-106 [facility] Comment on above: Order Comment: nhc Performed By: #### C RPR, CMP #### [facility] [address] [place], [place] [phone] Potassium molar conc 4.5 mmol/L Normal 3.5-5.1 [facility] Comment on above: Order Comment: nhc Performed By: #### C RPR, CMP #### [facility] [address] [place], [place] [address] Protein mass conc 7.6 g/dL Normal 6.4-8.2 [facility] Comment on above: Order Comment: nhc Performed By: #### C RPR, CMP #### [facility] [address] [place], [place] [address] Sodium molar conc 136 mmol/L Normal 136-145 [facility] Comment on above: Order Comment: nhc Performed By: #### C RPR, CMP #### [facility] [address] [place] [address] Urea nitrogen mass conc 7 mg/dL Normal 7-18 [facility] Comment on above: Order Comment: nhc Performed By: #### C RPR, CMP #### [address] [address] Hemoglobin A1Con 05-31-2018 Hemoglobin A1c/Hemoglobin.total mass fraction (Bld) HgbA1C levels may not be accurate in patients who have renal disease, received recent blood transfusions, are anemic or who have dyshemoglobinemia. Normal [facility] Comment on above: Order Comment: nhc Performed By: #### H GA1C #### [facility] [address] [place] [address] Hemoglobin A1c/Hemoglobin.total mass fraction (Bld) 8.3 % High 4.2-6.3 [facility] Comment on above: Order Comment: nhc Performed By: #### H GA1C #### [facility] [address] [place] [address] Hemoglobin A1c/Hemoglobin.total mass fraction (Bld) 192 mg/dL Normal [facility] Comment on above: Order Comment: nhc Performed By: #### H GA1C #### [facility] [address] [place] [address] Sed Rate - Westergrenon -1 Sed Rate 45 mm/hr High 0-10 [facility] Comment on above: Order Comment: nhc Performed By: #### E SR #### [facility] [address] [place] [address] PTARon 05-03-2018 PT Assessment Report [facility] PTAR Physical TherapyOutp [facility] Seating and Mobility EvaluationMedical Diagnosis: NEUROPATHYTherapy Diagnosis:Rank Code Description Date of Onset1 M62.81 Muscle weakness (generalized) 05/03/20182 R26.81 Unsteadiness on feet 05/03/2018Demographics:Age : 53YGender: MalePrimary Language: EnglishPreferred Language: EnglishInitial Evaluation Date: 05/03/18Referring Clinician: Katharina Vernon Service/Team: MedicineConcurrent Services: None.Medical Care Prior to Current Episode: No previous treatment.Past Medical History: Past Medical/Surgical HxPast Medical HistoryType 1 diabetesNeuropathyHyperten sionDepressionPast Surgical HistoryLeft knee scopeRHEUMATOID ARTHRITIS - HANDS, HTN, IDDM, NEUROPATHY - FEET, LEGS AND HANDSHistory of Present Illness:Date of Onset: 2015Additional Information: PT WAS HOSPITALIZED IN 2014, RECEIVED INPT REHAB STAYFOLLOWING HOSPITALIZATION. UNABLE TO RETURN TO WALKING, D/C HOME AT WHEELCHAIRLEVEL USING A MANUAL W/C. HE STARTED HAVING ISSUES WITH HIS SHOULDERS AND [id number] A FRIEND GAVE HIM A POWER WHEELCHAIR. (USED)Illness Severity or Complexity: W/C DEPENDENT SINCE 2014Medications: Significant rehabilitation considerations:DID NOT BRING LISTDOES TAKE INSULIN - SLIDING SCALEAllergies: Significant rehabilitation considerations:NKARehabili tation Precautions/Restrictions:* [facility] PATIENT NAME: BERTA JARAMILLO [id number] Debra Sage MEDICAL REC #: [id number] [address] DATE:SERVICE DATE: 05/03/18Physical Therapy Assessment Report ATTENDING PHY: Shiloh Vernon RISKSUBJECTIVEPremorbid Functional Level: The patient reported the premorbid level of functionwas INDEPENDENT FROM A WHEELCHAIR LEVEL. DOES HAVE ASSISTANCE FROM AN AIDE FORBATHING, MEALS, LAUNDRY AND CLEANINGCurrent Functional Limitations: The patient/caregiver reports the followingfunctional limitations: UNABLE TO WALK.CURRENT W/C (SEAT WORN, MOTOR GRINDING, W/C IS FROM 2008. PT IS NEAR EXCEEDINGTHE WEIGHT CAPACITY, CASTERS AND TIRES ALSO WORN)Patient Report: STATES HE HAS BEEN DEPENDENT ON A POWER CHAIR THAT WAS GIVEN TOHIM OVER THE PAST 3 YEARS. PT ONLY STANDS TO PIVOT TRANSFER, IS UNABLE TOAMBULATEPatient/Caregive r Goals: Patient's functional goals: TO OBTAIN A NEW POWERWHEELCHAIRPain: Patient currently has pain.Location: LE'SType: ChronicQuality: DID NOT DESCRIBEPain Scale: Visual Analog (VAS).Patient reports a pain level of 7 out of 10.Patient's acceptable level of pain 0 out of 10.Pain does not interfere with any activity at this time.Pain is alleviated by: UNKNOWNPain is exacerbated by: UNKNOWNInterventions: No pain intervention was facilitated because deniespain/discomfort at this time. 710Home Environment: Patient lives alone, but assistance is available. HOME HEALTHAIDE 8HOURS/WEEK Patient lives in an apartment. Home is single level. Patient isnot required to manage stairs within the home. First floor full bathroom setupavailable. No stairs to enter the home. There is no ramp available to enterhome.Equipment Owned: Home oxygen, HIGHER COMMODE, GRAB BARS, TUB BENCH, QUAD CANE,MANUAL WHEELCHAIR, USED POWER WHEELCHAIRSocial History: Marital Status: DIVORCEDChildren: Patient has no children.Employment Status: noneRecreational Activities/Hobbies: computerOBJECTIVEGeneral Observation: PLEASANT AND COOPERATIVEPosture (Sitting):Pelvis:Obliquity : Not present.Rotation: [facility] PATIENT NAME: BERTA JARAMILLO [id number] [facility] [address] [place] MEDICAL REC #: [id number], [place] [address] DATE:SERVICE DATE: 05/03/18Physical Therapy Assessment Report ATTENDING USMANY: Shiloh Vernon present.Tilt:Present.Poste rior. Flexible.Lumbar/Thoracic Spine:Scoliosis: Not present.Kyphosis: Present at location of THORACIC Flexible.Lordosis: Decreased. Flexible.Rib Cage:Obliquity: None/even.Shoulder Complex:Shoulder Complex Level: Level symmetrically.Glenohumeral Subluxation: None.Cervical Spine:Alignment: Forward flexed. Flexible.Skin Integrity: Within normal limits.Cognition: Oriented to person, place, time, and situation.ROM - see additional wheelchair assessmentFunctional Mobility:Bed Mobility: Within functional limits.Transfers: Patient transfers Bed to/from Chair requiring supervision.Pressure Relief: Modified Gillespie. Positional changes. Arm pushups.Sitting Balance: Maintains balance without UE support. Decreased stability whenbalance is displaced without UE support.Sensation: Sensation grossly intact.Endurance:limited. Pt is unable to ambulate for further assessment. does fatigueduring transfers and bed mobility tasks.Current Wheelchair Mobility/Management: Pt currently is using a power wheelchairthat is too naarow/not appropriate for pt. Recommend he receive a power chairwith approprirate dimensions to reduce risk for pressure, heavy duty toaccommodate weight requirements.Other/Additio nal Findings: Curernt wheelchair does not meet current needs.Interventions: Evaluation MOD ComplexityPain Reassessment: No significant change in pain during session.Education:The patient's preferred learning method is: ExplanationBarriers to Learning: No barriersLearning Needs: Plan of care.Education Provided: Plan of care.Audience: Patient.Mode: Explanation.Response: Applied knowledge. [facility] PATIENT NAME: BERTA JARAMILLO [id number] [facility] [address] [place] MEDICAL REC #: [id number], [place] [address] DATE:SERVICE DATE: 05/03/18Physical Therapy Assessment Report ATTENDING PHY: Shiloh Vernon CNPASSESSMENTActivity/Part icipation Problem List and Goals:Functional Impairment: Mobility: Walking and Moving Around.Modifier: X3989-OX (at least 1%, but less than 20% impaired, limited orrestricted)Goal: Pt receive appropriate power wheelchair to maximize independence and meetpt's current needsGoal Modifier: A7883-TD (0% impaired, limited or restricted)Discharge Status for Mobility: Walking and Moving Around: UnresolvedFunctional Impairment Discharge Modifier: Y6520-UE (at least 1%, but less than20% impaired, limited or restricted)Current wheelchair does not meet pt's needs, safety concerns due to pt's currentweight - nearly exceeds the maximum weight capacity.Strengths: motivatedEquipment Needed: Power wheelchair:Rehabilitation Potential: good to maintain independent mobility with a powerwheelchair .Motivation/Commitment to Therapy: Good.PLANTreatment Frequency, Duration, and Interventions: Physical Therapy services arediscontinued at this time secondary to: One time visit for power wheechairassessmentNecessi ty: one time visit for wheelchair assessmentRecommended Consults: None currently.Development of Plan of Care: Patient participated in plan of care developmenttoday.The patient has been instructed to contact our clinic if any questions orproblems should arise.Visit Number: Today's visit is number 1 Physician Certification: This is to certify that the above named patient, who isunder my care, requires skilled Physical Therapy services as described in theove treatment plan. I further certify that the services outlined in this planare skilled and medically necessary. I have reviewed this plan forrehabilitation services, and I recommend that these services continue from05/03/18 to 05/03/18 to meet the goals stated above.Physician signature: Date of certification: ____/____/____If you are in agreement with the above plan of care, please sign, date and [facility] PATIENT NAME: BERTA JARAMILLO [id number] [facility] [address] [place] MEDICAL REC #: [id number], [place] [address] DATE:SERVICE DATE: 05/03/18Physical Therapy Assessment Report ATTENDING USMANY: Shiloh Vernon this to (fax number)Services:Total Billed: 0 minutes (Timed: 0, Untimed: 0)0.00 Untimed: [79918] PT-EVALUATION MOD COMPLEX0.00 Untimed: [G8978] PT-Mobility: Walking and Moving Around-CI0.00 Untimed: [G8979] WV-Xlwg-Fvyaeawf: Walking and Moving Around-CH0.00 Untimed: [G8980] PT-DC:Mobility: Walking and Moving Around-CISigned by: Jeison DAVIS, PT 05/09/2018 18:11:23 [facility] PATIENT NAME: BERTA JARAMILLO [id number] [facility] [address] [place] MEDICAL REC #: [id number], [place] [address] DATE:SERVICE DATE: 05/03/18Physical Therapy Assessment Report ATTENDING PHY: Shiloh Vernon [facility] Normal [facility] Dermatopathologyon 8 Dermatopathology 46 Pathologist: GERTRUDE QUAN MD Date of Procedure: 02/01/2018 Date Received: 02/02/2018 Date Reported 02/03/2018 Submitting Physician: TAMIA HERNANDEZ CNP Location: [facility] FINAL DIAGNOSIS SKIN, LEFT ANTERIOR UPPER LEG, PUNCH BIOPSY: FOCAL MILD SPONGIOSIS, SEE NOTE. Note: Microscopic examination reveals a specimen that extends into the subcutaneous fat. There is parakeratosis with focal mild spongiosis of the epidermis and a mild superficial lymphocytic infiltrate with erythrocyte extravasation. A PAS stain is negative for fungus. All control slides stain appropriately. These findings could be seen in a progressive pigmented purpuric dermatosis. A drug eruption and contact dermatitis cannot be excluded. Electronically Signed Out by GERTRUDE QUAN M.D. Electronically Signed Out By GERTRUDE QUAN MD/[facility] Clinical History: Drug eruption contact derm vs. tinea vs. other (PAS) stain. Punch Biopsy. Specimens Submitted As: A: SKIN, LEFT ANTERIOR UPPER LEG Gross Description: Received in formalin is a nagy, cylindrical piece of skin measuring [id number]. The specimen is inked and embedded in toto. ink/02/02/2018 Normal [facility] Comment on above: Performed By: #### D #### Dermatopathology Bacteria identified Anaer cx Nom (Unsp spec) Anaerobic microbial culture No anaerobic bacteria isolated. [facility] Work Phone: Bacteria identified Cx Nom ( Wound) Wound Culture Staphylococcus aureus [facility] Work Phone: Wound Culture Corynebacterium striatum [facility] Work Phone: Gram stain for investigation of transfusion reaction Microscopic observation Gram stain Nom (Unsp spec) [facility] Work Phone: Vital Signs Date Time Vital Sign Value Performing Clinician Namrata rooney 10-13-2024 12:53-0400 Body mass index (BMI) [Ratio] 32.3 kg/m2 Mike Candelario PLEATING MACHINE OPERATOR.UNATTENDED GROUND SENSOR SPECIALIST Work Phone: [facility] 10-13-2024 12:53-0400 Body weight 99.2 kg Mike Candelario PLEATING MACHINE OPERATOR.CN S Work Phone: [facility] 10-13-2024 12:53-0400 Diastolic blood pressure 61 mm[Hg] Mike Candelario PLEATING MACHINE OPERATOR.UNATTENDED GROUND SENSOR SPECIALIST Work Phone: [facility] 10-13-2024 12:53-0400 Heart rate 87 /min Mike Candelario PLEATING MACHINE OPERATOR.CN S Work Phone: [facility] 10-13-2024 12:53-0400 Respiratory rate 16 /min Mike Candelario PLEATING MACHINE OPERATOR.CN S Work Phone: [facility] 10-13-2024 12:53-0400 Systolic blood pressure 101 mm[Hg] Mike Candelario PLEATING MACHINE OPERATOR.UNATTENDED GROUND SENSOR SPECIALIST Work Phone: [facility] 08-23-2024 16:14-0400 Body mass index (BMI) [Ratio] 32.62 kg/m2 Rachel Chery MD Work Phone: [facility] 08-23-2024 16:14-0400 Body weight 100.2 kg Rachel Chery MD Work Phone: [facility] 08-23-2024 16:14-0400 Diastolic blood pressure 50 mm[Hg] Rachel Chery MD Work Phone: [facility] 08-23-2024 16:14-0400 Heart rate 96 /min Rachel Chery MD Work Phone: [facility] 08-23-2024 16:14-0400 Respiratory rate 12 /min Rachel Chery MD Work Phone: [facility] 08-23-2024 16:14-0400 SaO2% (BldA) [Mass fraction] 99 % Rachel Chery MD Work Phone: [facility] 08-23-2024 16:14-0400 Systolic blood pressure 104 mm[Hg] Rachel Chery MD Work Phone: [facility] 05-25-2024 10:44-0500 Diastolic blood pressure 68 mm[Hg] Mike Candelario PLEATING MACHINE OPERATOR.UNATTENDED GROUND SENSOR SPECIALIST Work Phone: [facility] 05-25-2024 10:44-0500 Heart rate 90 /min Mike Candelario PLEATING MACHINE OPERATOR.CN S Work Phone: [facility] 05-25-2024 10:44-0500 Systolic blood pressure 111 mm[Hg] Mike Candelario PLEATING MACHINE OPERATOR.UNATTENDED GROUND SENSOR SPECIALIST Work Phone: [facility] 05-25-2024 10:36-0500 Body mass index (BMI) [Ratio] 32.49 kg/m2 Mike Candelario PLEATING MACHINE OPERATOR.UNATTENDED GROUND SENSOR SPECIALIST Work Phone: [facility] 05-25-2024 10:36-0500 Body weight 99.79 kg Mike Candelario PLEATING MACHINE OPERATOR.CN S Work Phone: [facility] Comment on above: per patient 05-25-2024 10:36-0500 Respiratory rate 16 /min Mike Candelario PLEATING MACHINE OPERATOR.CN S Work Phone: [facility] 04-14-2024 11:44-0500 Body temperature 97.3 [degF] Katelin Hassan RN Work Phone: [facility] 04-14-2024 11:44-0500 Diastolic blood pressure 70 mm[Hg] Katelin Most RN Work Phone: [facility] 04-14-2024 11:44-0500 Heart rate 96 /min Katelin Most RN Work Phone: [facility] 04-14-2024 11:44-0500 Respiratory rate 16 /min Katelin Most RN Work Phone: [facility] 04-14-2024 11:44-0500 SaO2% (BldA) [Mass fraction] 98 % Katelin Most RN Work Phone: [facility] 04-14-2024 11:44-0500 Systolic blood pressure 122 mm[Hg] Katelin Most RN Work Phone: [facility] 04-10-2024 10:28-0500 Body temperature 98.29 [degF] Jennifer Ramirez RN Work Phone: [facility] 04-10-2024 10:28-0500 Diastolic blood pressure 70 mm[Hg] Jennifer Ramirez RN Work Phone: [facility] 04-10-2024 10:28-0500 Heart rate 92 /min Jennifer Ramirez RN Work Phone: [facility] 04-10-2024 10:28-0500 Respiratory rate 18 /min Jennifer Ramirez RN Work Phone: [facility] 04-10-2024 10:28-0500 SaO2% (BldA) [Mass fraction] 99 % Jennifer Ramirez RN Work Phone: [facility] 04-10-2024 10:28-0500 Systolic blood pressure 118 mm[Hg] Jennifer Ramirez RN Work Phone: [facility] 03-31-2024 15:18-0500 Respiratory rate 18 /min Jennifer Ramirez RN Work Phone: [facility] 03-30-2024 10:29-0500 Diastolic blood pressure 80 mm[Hg] John Gerstenslager OT Work Phone: [facility] 03-30-2024 10:29-0500 Heart rate 89 /min John Gerstenslager O T Work Phone: [facility] 03-30-2024 10:29-0500 SaO2% (BldA) [Mass fraction] 98 % John Gerstenslager OT Work Phone: [facility] 03-30-2024 10:29-0500 Systolic blood pressure 120 mm[Hg] John Gerstenslager OT Work Phone: [facility] 03-30-2024 09:50-0500 Body temperature 97.39 [degF] John Gerstenslager O T Work Phone: [facility] 03-29-2024 14:12-0500 Body temperature 98.4 [degF] Suzie Coleman PT Work Phone: [facility] 03-29-2024 14:12-0500 Diastolic blood pressure 64 mm[Hg] Suzie Coleman PT Work Phone: [facility] 03-29-2024 14:12-0500 Heart rate 90 /min Suzie Coleman PT Work Phone: [facility] 03-29-2024 14:12-0500 Respiratory rate 16 /min Suzie Coleman PT Work Phone: [facility] 03-29-2024 14:12-0500 SaO2% (BldA) [Mass fraction] 97 % Suzie Coleman PT Work Phone: [facility] 03-29-2024 14:12-0500 Systolic blood pressure 112 mm[Hg] Suzie Coleman PT Work Phone: [facility] 03-28-2024 12:44-0500 Body temperature 98.1 [degF] Jennifer Ramirez RN Work Phone: [facility] 03-28-2024 12:44-0500 Diastolic blood pressure 58 mm[Hg] Jennifer Ramirez RN Work Phone: [facility] 03-28-2024 12:44-0500 Heart rate 94 /min Jennifer Ramirez RN Work Phone: [facility] 03-28-2024 12:44-0500 Respiratory rate 18 /min Jennifer Ramirez RN Work Phone: [facility] 03-28-2024 12:44-0500 SaO2% (BldA) [Mass fraction] 95 % Jennifer Ramirez RN Work Phone: [facility] 03-28-2024 12:44-0500 Systolic blood pressure 104 mm[Hg] Jennifer Ramirez RN Work Phone: [facility] 02-18-2024 16:09-0400 Body temperature 98.1 [degF] Rachel Chery MD Work Phone: [facility] 02-18-2024 16:09-0400 Diastolic blood pressure 64 mm[Hg] Rachel Chery MD Work Phone: [facility] 02-18-2024 16:09-0400 Heart rate 89 /min Rachel Chery MD Work Phone: [facility] 02-18-2024 16:09-0400 Respiratory rate 16 /min Rachel Chery MD Work Phone: [facility] 02-18-2024 16:09-0400 SaO2% (BldA) [Mass fraction] 100 % Rachel Chery MD Work Phone: [facility] 02-18-2024 16:09-0400 Systolic blood pressure 107 mm[Hg] Rachel Chery MD Work Phone: [facility] 11-23-2023 14:14-0400 Diastolic blood pressure 56 mm[Hg] Rachel Chery MD Work Phone: [facility] Comment on above: Using BP Monitor 11-23-2023 14:14-0400 Systolic blood pressure 94 mm[Hg] Rachel Chery MD Work Phone: [facility] Comment on above: Using BP Monitor 11-23-2023 14:08-0400 Body mass index (BMI) [Ratio] 33.91 kg/m2 Rachel Chery MD Work Phone: [facility] 11-23-2023 14:08-0400 Body temperature 96.69 [degF] Rachel Chery MD Work Phone: [facility] 11-23-2023 14:08-0400 Body weight 104.15 kg Rachel Chery MD Work Phone: [facility] 11-23-2023 14:08-0400 Heart rate 92 /min Rachel Chery MD Work Phone: [facility] 11-23-2023 14:08-0400 Respiratory rate 18 /min Rachel Chery MD Work Phone: [facility] 11-23-2023 14:08-0400 SaO2% (BldA) [Mass fraction] 98 % Rachel Chery MD Work Phone: [facility] 11-10-2023 11:15-0400 Body mass index (BMI) [Ratio] 33.91 kg/m2 Coral Cioce PLEATING MACHINE OPERATOR.M1 [employer] CREWMAN Work Phone: [facility] 11-10-2023 11:15-0400 Body temperature 96.1 [degF] Coral Cioce PLEATING MACHINE OPERATOR.CN P Work Phone: [facility] 11-10-2023 11:15-0400 Body weight 104.15 kg Coral Cioce PLEATING MACHINE OPERATOR.CN P Work Phone: [facility] 11-10-2023 11:15-0400 Heart rate 88 /min Coral Cioce PLEATING MACHINE OPERATOR.CN P Work Phone: [facility] 11-10-2023 11:15-0400 SaO2% (BldA) [Mass fraction] 97 % Coral Cioce PLEATING MACHINE OPERATOR.M1 ARMOR CREWMAN Work Phone: [facility] 09-13-2023 14:53-0400 Body height 175.3 cm Pacc 1 Work Phone: [facility] 09-13-2023 14:53-0400 Body mass index (BMI) [Ratio] 36.92 kg/m2 Pacc 1 Work Phone: [facility] 09-13-2023 14:53-0400 Body temperature 97.5 [degF] Pacc 1 Work Phone: [facility] 09-13-2023 14:53-0400 Body weight 113.4 kg Pacc 1 Work Phone: [facility] 09-13-2023 14:53-0400 Diastolic blood pressure 68 mm[Hg] Pacc 1 Work Phone: [facility] 09-13-2023 14:53-0400 Heart rate 93 /min Pacc 1 Work Phone: [facility] 09-13-2023 14:53-0400 Respiratory rate 14 /min Pacc 1 Work Phone: [facility] 09-13-2023 14:53-0400 SaO2% (BldA) [Mass fraction] 96 % Pacc 1 Work Phone: [facility] 09-13-2023 14:53-0400 Systolic blood pressure 122 mm[Hg] Pacc 1 Work Phone: [facility] 03-22-2023 10:35-0500 Diastolic blood pressure 63 mm[Hg] Mike Candelario PLEATING MACHINE OPERATOR.UNATTENDED GROUND SENSOR SPECIALIST Work Phone: [facility] 03-22-2023 10:35-0500 Heart rate 114 /min Mike Candelario PLEATING MACHINE OPERATOR.CN S Work Phone: [facility] 03-22-2023 10:35-0500 Respiratory rate 16 /min Mike Candelario PLEATING MACHINE OPERATOR.CN S Work Phone: [facility] 03-22-2023 10:35-0500 Systolic blood pressure 100 mm[Hg] Mike Candelario PLEATING MACHINE OPERATOR.UNATTENDED GROUND SENSOR SPECIALIST Work Phone: [facility] 03-19-2023 00:05-0400 Diastolic blood pressure 80 mm[Hg] Dr. Lior Salcido Work Phone: [facility] 03-19-2023 00:05-0400 Heart rate 73 /min Dr. Lior Salcido Work Phone: [facility] 03-19-2023 00:05-0400 Respiratory rate 12 /min Dr. Lior Salcido Work Phone: [facility] 03-19-2023 00:05-0400 SaO2% (BldA) [Mass fraction] 99 % Dr. Lior Salcido Work Phone: [facility] 03-19-2023 00:05-0400 Systolic blood pressure 145 mm[Hg] Dr. Lior Salcido Work Phone: [facility] 03-18-2023 20:02-0400 Body height 175.[address] Lior Salcido Work Phone: [facility] 03-18-2023 20:02-0400 Body mass index (BMI) [Ratio] 36.7 kg/m2 Dr. Lior Salcido Work Phone: [facility] 03-18-2023 20:02-0400 Body temperature 97.1 [degF] Dr. Lior Salcido Work Phone: [facility] 03-18-2023 20:02-0400 Body weight 112.[address] Lior Salcido Work Phone: [facility] 03-17-2023 05:41-0400 Body height 167.[address] Lior Salcido Work Phone: [facility] 03-17-2023 05:41-0400 Body mass index (BMI) [Ratio] 42.2 kg/m2 Dr. Lior Salcido Work Phone: [facility] 03-17-2023 05:41-0400 Body temperature 98.2 [degF] Dr. Lior Salcido Work Phone: [facility] 03-17-2023 05:41-0400 Body weight 118.[address] Lior Salcido Work Phone: [facility] 03-17-2023 05:41-0400 Diastolic blood pressure 64 mm[Hg] Dr. Lior Salcido Work Phone: [facility] 03-17-2023 05:41-0400 Heart rate 83 /min Dr. Lior Salcido Work Phone: [facility] 03-17-2023 05:41-0400 Respiratory rate 18 /min Dr. Lior Salcido Work Phone: [facility] 03-17-2023 05:41-0400 SaO2% (BldA) [Mass fraction] 97 % Dr. Liro Salcido Work Phone: [facility] 03-17-2023 05:41-0400 Systolic blood pressure 134 mm[Hg] Dr. Lior Salcido Work Phone: [facility] 02-25-2023 14:02-0400 Diastolic blood pressure 66 mm[Hg] Mike Candelario PLEATING MACHINE OPERATOR.UNATTENDED GROUND SENSOR SPECIALIST Work Phone: [facility] 02-25-2023 14:02-0400 Heart rate 79 /min Mike Candelario PLEATING MACHINE OPERATOR.CN S Work Phone: [facility] 02-25-2023 14:02-0400 Respiratory rate 16 /min Mike Candelario PLEATING MACHINE OPERATOR.CN S Work Phone: [facility] 02-25-2023 14:02-0400 Systolic blood pressure 101 mm[Hg] Mike Candelario PLEATING MACHINE OPERATOR.UNATTENDED GROUND SENSOR SPECIALIST Work Phone: [facility] 12-03-2022 10:21-0400 Body height 175.[address] Lior Salcido Work Phone: [facility] 12-03-2022 10:21-0400 Body mass index (BMI) [Ratio] 35.1 kg/m2 Dr. Lior Salcido Work Phone: [facility] 12-03-2022 10:21-0400 Body temperature 97.5 [degF] Dr. Lior Salcido Work Phone: [facility] 12-03-2022 10:21-0400 Body weight 107.[address] Lior Salcido Work Phone: [facility] 12-03-2022 10:21-0400 Diastolic blood pressure 76 mm[Hg] Dr. Lior Salcido Work Phone: [facility] 12-03-2022 10:21-0400 Heart rate 73 /min Dr. Lior Salcido Work Phone: [facility] 12-03-2022 10:21-0400 Respiratory rate 18 /min Dr. Lior Salcido Work Phone: [facility] 12-03-2022 10:21-0400 Systolic blood pressure 131 mm[Hg] Dr. Lior Salcido Work Phone: [facility] 11-24-2022 14:01-0400 Body weight 107.96 kg Mike Candelario PLEATING MACHINE OPERATOR.CN S Work Phone: [facility] 11-24-2022 14:01-0400 Diastolic blood pressure 60 mm[Hg] Mike Candelario PLEATING MACHINE OPERATOR.UNATTENDED GROUND SENSOR SPECIALIST Work Phone: [facility] 11-24-2022 14:01-0400 Heart rate 77 /min Mike Candelario PLEATING MACHINE OPERATOR.CN S Work Phone: [facility] 11-24-2022 14:01-0400 Respiratory rate 16 /min Mike Candelario PLEATING MACHINE OPERATOR.CN S Work Phone: [facility] 07-11-2023 14:01-0400 SaO2% (BldA) [Mass fraction] 98 % Mike Candelario PLEATING MACHINE OPERATOR.UNATTENDED GROUND SENSOR SPECIALIST Work Phone: [facility] 11-24-2022 14:01-0400 Systolic blood pressure 108 mm[Hg] Mikenorth Maliks PLEATING MACHINE OPERATOR.UNATTENDED GROUND SENSOR SPECIALIST Work Phone: [facility] 11-11-2022 12:55-0400 Body height 175.3 cm Teresa Gaby PLEATING MACHINE OPERATOR.CN P Work Phone: [facility] 11-11-2022 12:55-0400 Body weight 107.96 kg Teresa Gaby PLEATING MACHINE OPERATOR.CN P Work Phone: [facility] 11-11-2022 12:55-0400 Diastolic blood pressure 58 mm[Hg] Teresa Gaby PLEATING MACHINE OPERATOR.M1 [employer]MAN Work Phone: [facility] 11-11-2022 12:55-0400 Heart rate 74 /min Teresa Gaby PLEATING MACHINE OPERATOR.CN P Work Phone: [facility] 11-11-2022 12:55-0400 Respiratory rate 20 /min Teresa Gaby PLEATING MACHINE OPERATOR.CN P Work Phone: [facility] 11-11-2022 12:55-0400 SaO2% (BldA) [Mass fraction] 94 % Teresa Gaby PLEATING MACHINE OPERATOR.M1 [employer] Work Phone: [facility] 11-11-2022 12:55-0400 Systolic blood pressure 118 mm[Hg] Teresa Gaby PLEATING MACHINE OPERATOR.M1 [employer] Work Phone: [facility] 05-27-2022 16:44-0500 Body temperature 97.3 [degF] Rachel Chery MD Work Phone: [facility] 05-27-2022 16:44-0500 Diastolic blood pressure 64 mm[Hg] Rachel Chery MD Work Phone: [facility] 05-27-2022 16:44-0500 Heart rate 80 /min Rachel Chery MD Work Phone: [facility] 05-27-2022 16:44-0500 Respiratory rate 18 /min Rachel Chery MD Work Phone: [facility] 05-27-2022 16:44-0500 SaO2% (BldA) [Mass fraction] 92 % Rachel Chery MD Work Phone: [facility] 05-27-2022 16:44-0500 Systolic blood pressure 112 mm[Hg] Rachel Chery MD Work Phone: [facility] 04-24-2022 11:09-0500 Diastolic blood pressure 52 mm[Hg] Mike Candelario PLEATING MACHINE OPERATOR.UNATTENDED GROUND SENSOR SPECIALIST Work Phone: [facility] 04-24-2022 11:09-0500 Heart rate 73 /min Mike Candelario PLEATING MACHINE OPERATOR.CN S Work Phone: [facility] 04-24-2022 11:09-0500 Respiratory rate 16 /min Mike Candelario PLEATING MACHINE OPERATOR.CN S Work Phone: [facility] 04-24-2022 11:09-0500 SaO2% (BldA) [Mass fraction] 95 % Mike Candelario PLEATING MACHINE OPERATOR.UNATTENDED GROUND SENSOR SPECIALIST Work Phone: [facility] 04-24-2022 11:09-0500 Systolic blood pressure 102 mm[Hg] Mike Candelario PLEATING MACHINE OPERATOR.UNATTENDED GROUND SENSOR SPECIALIST Work Phone: [facility] 04-14-2022 16:34-0500 Body height 175.3 cm Usama Bryan PA-C Work Phone: [facility] 04-14-2022 16:34-0500 Body temperature 96.91 [degF] Usama Bryan PA-C Work Phone: [facility] 04-14-2022 16:34-0500 Body weight 135.17 kg Usama Bryan PA-C Work Phone: [facility] 04-14-2022 16:34-0500 Diastolic blood pressure 60 mm[Hg] Usama Rbyan PA-C Work Phone: [facility] 04-14-2022 16:34-0500 Heart rate 80 /min Usama Bryan PA-C Work Phone: [facility] 04-14-2022 16:34-0500 Respiratory rate 16 /min Usama Bryan PA-C Work Phone: [facility] 04-14-2022 16:34-0500 SaO2% (BldA) [Mass fraction] 96 % Usama Bryan PA-C Work Phone: [facility] 04-14-2022 16:34-0500 Systolic blood pressure 104 mm[Hg] Usama Bryan PA-C Work Phone: [facility] 04-11-2022 04:03-0500 Diastolic blood pressure 79 mm[Hg] Dr. Lior Salcido Work Phone: [facility] Work Phone: 04-11-2022 04:03-0500 Heart rate 83 /min Dr. Lior Salcido Work Phone: [facility] Work Phone: 04-11-2022 04:03-0500 Inhaled oxygen flow rate 2 L/min Dr. Lior Salcido Work Phone: [facility] Work Phone: 04-11-2022 04:03-0500 Respiratory rate 16 /min Dr. Lior Salcido Work Phone: [facility] Work Phone: 04-11-2022 04:03-0500 SaO2% (BldA) [Mass fraction] 100 % Dr. Lior Salcido Work Phone: [facility] Work Phone: 04-11-2022 04:03-0500 Systolic blood pressure 144 mm[Hg] Dr. Lior Salcido Work Phone: [facility] Work Phone: 04-10-2022 23:23-0500 Body height 175.[address] Lior Salcido Work Phone: [facility] Work Phone: 04-10-2022 23:23-0500 Body mass index (BMI) [Ratio] 42.8 kg/m2 Dr. Lior Salcido Work Phone: [facility] Work Phone: 04-10-2022 23:23-0500 Body temperature 97.6 [degF] Dr. Lior Salcido Work Phone: [facility] Work Phone: 04-10-2022 23:23-0500 Body weight 131.[address] Lior Salcido Work Phone: [facility] Work Phone: 04-10-2022 15:46-0500 Diastolic blood pressure 74 mm[Hg] Dr. Lior Salcido Work Phone: [facility] Work Phone: 04-10-2022 15:46-0500 Heart rate 89 /min Dr. Lior Salcido Work Phone: [facility] Work Phone: 04-10-2022 15:46-0500 Respiratory rate 16 /min Dr. Lior Salcido Work Phone: [facility] Work Phone: 04-10-2022 15:46-0500 SaO2% (BldA) [Mass fraction] 98 % Dr. Lior Salcido Work Phone: [facility] Work Phone: 04-10-2022 15:46-0500 Systolic blood pressure 106 mm[Hg] Dr. Lior Salcido Work Phone: [facility] Work Phone: 04-10-2022 10:20-0500 Body height 175.[address] Lior Salcido Work Phone: [facility] Work Phone: 04-10-2022 10:20-0500 Body mass index (BMI) [Ratio] 39.7 kg/m2 Dr. Lior Salcido Work Phone: [facility] Work Phone: 04-10-2022 10:20-0500 Body temperature 98.1 [degF] Dr. Lior Salcido Work Phone: [facility] Work Phone: 04-10-2022 10:20-0500 Body weight 122.[address] Lior Salcido Work Phone: [facility] Work Phone: 03-05-2022 10:02-0400 Body mass index (BMI) [Ratio] 40.6 kg/m2 Dr. Lior Salcido Work Phone: [facility] Work Phone: 03-05-2022 10:02-0400 Body temperature 96.7 [degF] Dr. Lior Salcido Work Phone: [facility] Work Phone: 03-05-2022 10:02-0400 Diastolic blood pressure 61 mm[Hg] Dr. Lior Salcido Work Phone: [facility] Work Phone: 03-05-2022 10:02-0400 Heart rate 78 /min Dr. Lior Salcido Work Phone: [facility] Work Phone: 03-05-2022 10:02-0400 Respiratory rate 20 /min Dr. Lior Salcido Work Phone: [facility] Work Phone: 03-05-2022 10:02-0400 Systolic blood pressure 115 mm[Hg] Dr. Lior Salcido Work Phone: [facility] Work Phone: 02-14-2022 00:18-0400 Body weight 124.[address] Lior Salcido Work Phone: [facility] Work Phone: 02-05-2022 08:50-0400 Body mass index (BMI) [Ratio] 40.6 kg/m2 Dr. Lior Salcido Work Phone: [facility] Work Phone: 02-05-2022 08:50-0400 Body temperature 96.7 [degF] Dr. Lior Salcido Work Phone: [facility] Work Phone: 02-05-2022 08:50-0400 Diastolic blood pressure 70 mm[Hg] Dr. Lior Salcido Work Phone: [facility] Work Phone: 02-05-2022 08:50-0400 Heart rate 89 /min Dr. Lior Salcido Work Phone: [facility] Work Phone: 02-05-2022 08:50-0400 Respiratory rate 16 /min Dr. Lior Salcido Work Phone: [facility] Work Phone: 02-05-2022 08:50-0400 Systolic blood pressure 112 mm[Hg] Dr. Lior Salcido Work Phone: [facility] Work Phone: 01-30-2022 10:54-0400 Body height 170 cm Mikenorth Candelario APRN.CN S Work Phone: [facility] 01-30-2022 10:54-0400 Body weight 127.46 kg Mike Candelario PLEATING MACHINE OPERATOR.CN S Work Phone: [facility] 01-30-2022 10:54-0400 Diastolic blood pressure 60 mm[Hg] Mike Candelario PLEATING MACHINE OPERATOR.UNATTENDED GROUND SENSOR SPECIALIST Work Phone: [facility] 01-30-2022 10:54-0400 Heart rate 76 /min Mike Candelario PLEATING MACHINE OPERATOR.CN S Work Phone: [facility] 01-30-2022 10:54-0400 Respiratory rate 16 /min Mike Candelario PLEATING MACHINE OPERATOR.CN S Work Phone: [facility] 01-30-2022 10:54-0400 Systolic blood pressure 110 mm[Hg] Mike Candelario PLEATING MACHINE OPERATOR.UNATTENDED GROUND SENSOR SPECIALIST Work Phone: [facility] 12-15-2021 00:08-0400 Body weight 124.[address] Lior Salcido Work Phone: [facility] Work Phone: 12-11-2021 13:14-0400 Body mass index (BMI) [Ratio] 40.6 kg/m2 Dr. Lior Salcido Work Phone: [facility] Work Phone: 12-11-2021 13:14-0400 Body temperature 97.6 [degF] Dr. Lior Salcido Work Phone: [facility] Work Phone: 12-11-2021 13:14-0400 Diastolic blood pressure 68 mm[Hg] Dr. Lior Salcido Work Phone: [facility] Work Phone: 12-11-2021 13:14-0400 Heart rate 72 /min Dr. Lior Salcido Work Phone: [facility] Work Phone: 12-11-2021 13:14-0400 Systolic blood pressure 118 mm[Hg] Dr. Lior Salcido Work Phone: [facility] Work Phone: 12-04-2021 10:28-0400 Respiratory rate 16 /min Dr. Lior Salcido Work Phone: [facility] Work Phone: 11-14-2021 00:04-0400 Body weight 124.[address] Lior Salcido Work Phone: [facility] Work Phone: 11-13-2021 08:11-0400 Body mass index (BMI) [Ratio] 40.6 kg/m2 Dr. Lior Salcido Work Phone: [facility] Work Phone: 11-13-2021 08:11-0400 Body temperature 96.7 [degF] Dr. Lior Salcido Work Phone: [facility] Work Phone: 11-13-2021 08:11-0400 Diastolic blood pressure 65 mm[Hg] Dr. iLor Salcido Work Phone: [facility] Work Phone: 11-13-2021 08:11-0400 Heart rate 80 /min Dr. Lior Salcido Work Phone: [facility] Work Phone: 11-13-2021 08:11-0400 Systolic blood pressure 109 mm[Hg] Dr. Lior Salcido Work Phone: [facility] Work Phone: 11-06-2021 09:38-0400 Respiratory rate 20 /min Dr. Lior Salcido Work Phone: [facility] Work Phone: 10-23-2021 10:30-0400 Body height 175.[address] Lior Salcido Work Phone: [facility] Work Phone: 10-23-2021 10:30-0400 Body weight 124.[address] Lior Salcido Work Phone: [facility] Work Phone: Encounters Encounter Date Encounter Type Care Provider Facility Start: 11-13-2024 End: 11-13-2024 Patient encounter procedure Hieu Munoz MD Work Phone: Pain Management Comment on above: Foot spasms (Primary Dx); Type 2 diabetes mellitus with hyperglycemia, with long-term current use of insulin (HCC); Pain in both feet; Phantom limb syndrome with pain (HCC) Start: 11-13-2024 End: 11-13-2024 ambulatory RACHEL D TALAMPAS Facility:[facility] Start: 11-07-2024 End: 11-07-2024 E-mail encounter from caregiver [facility] Start: 11-07-2024 End: 11-07-2024 Patient encounter procedure [facility] Comment on above: Instructions & Requi rements for Your Upcoming Appointment Start: 10-17-2024 End: 10-18-2024 Follow-up encounter Mike Candelario APRN.CNS Work Phone: [facility] [place] Comment on above: Results, Lab Start: 10-13-2024 End: 10-13-2024 Office outpatient visit 25 minutes Mike Candelario APRN.CNS Work Phone: [facility] [place] Comment on above: Type 2 diabetes lemuel itus with hyperglycemia, with long-term current use of insulin (HCC) (Primary Dx); Dizziness; Pain in both feet; Essential hypertension; Iron deficiency anemia, unspecified iron deficiency anemia type Start: 10-13-2024 End: 10-13-2024 ambulatory RACHEL D TALAMPAS Facility:[facility] Start: 10-13-2024 End: 10-13-2024 [facility] Start: 09-22-2024 End: 09-22-2024 Telephone encounter Rachel Chery MD Work Phone: [facility] [place] Comment on above: Insurance Authorizat ion Start: 08-25-2024 End: 08-25-2024 Telephone encounter Marni DIANE Navigation Start: 08-23-2024 End: 08-23-2024 Office outpatient visit 40 minutes Rachel Chery MD Work Phone: [facility] [place] Comment on above: Type 2 diabetes lemuel itus with hyperglycemia, with long-term current use of insulin (HCC) (Primary Dx); Depression, recurrent; Essential hypertension; Anxiety; Hypercholesterolemia; Vitamin B6 deficiency (non anemic); Iron deficiency anemia, unspecified iron deficiency anemia type; Dry skin Start: 08-23-2024 End: 08-23-2024 ambulatory RACHEL CHERY Facility:[facility] Start: 08-21-2024 End: 09-21-2024 Admission to same day surgery center Rachel Chery MD Work Phone: Ambulatory Surgery Comment on above: Outpatient [place] py (Patient is overdue for colorectal cancer screening (has never done). Patient will need consult with Jesus Etienne CNP prior to colorectal cancer screening. ) Start: 08-21-2024 End: 09-21-2024 ambulatory Rachel Chery MD Work Phone: Ambulatory Surgery Start: 08-18-2024 End: 08-22-2024 Refill Rachel Chery MD Work Phone: [facility] [place] Comment on above: Refill Request Start: 08-02-2024 End: 08-02-2024 Telephone encounter Coral Martinez APRN.M1 [employer] Work Phone: Endocrinology Comment on above: CMN to DME Start: 08-01-2024 End: 08-01-2024 Telephone encounter Rachel Chery MD Work Phone: [place] Start: 07-28-2024 End: 07-28-2024 Telephone encounter Rachel Chery MD Work Phone: [facility] [place] Comment on above: [facility] Start: 06-13-2024 End: 06-13-2024 Telephone encounter Coral Martinez APRN.M1 [employer] Work Phone: Endocrinology Comment on above: Insurance Authorizat ion; Prior Authorization ([employer]) Start: 05-29-2024 End: 05-29-2024 ambulatory No Pcp PLEATING MACHINE OPERATOR [facility] [place] Start: 05-29-2024 End: 05-29-2024 Patient encounter procedure No Pcp PLEATING MACHINE OPERATOR [facility] Start: 05-26-2024 End: 06-06-2024 Telephone encounter Mike Candelario APRN.UNATTENDED GROUND SENSOR SPECIALIST Work Phone: [facility] [place] Comment on above: Results Start: 05-25-2024 End: 06-06-2024 Telephone encounter Rachel Chery MD Work Phone: [facility] [place] Comment on above: Appointment Start: 05-25-2024 End: 05-25-2024 ambulatory RACHEL CHERY Facility:[facility] Start: 05-25-2024 End: 05-25-2024 Office outpatient visit 25 minutes Mike Candelario APRN.UNATTENDED GROUND SENSOR SPECIALIST Work Phone: [facility] [place] Comment on above: Type 2 diabetes lemuel itus, with long-term current use of insulin (HCC) (Primary Dx); Screening for diabetic retinopathy; Screening for colon cancer; Encounter for screening for lung cancer; Depression, unspecified depression type; Peripheral polyneuropathy; Iron deficiency anemia, unspecified iron deficiency anemia type; Encounter for immunization Start: 05-25-2024 End: 05-25-2024 ambulatory MIKE CANDELARIO Facility:[facility] Start: 04-14-2024 End: 04-14-2024 Home visit Katelin Hassan RN Work Phone: [facility] Comment on above: SN AGENCY DC W VISIT Start: 04-10-2024 End: 04-10-2024 Home visit Jennifer Ramirez RN Work Phone: [facility] Comment on above: SN ROUTINE Start: 04-05-2024 End: 04-05-2024 Orders Only Teresa Griffin PLEATING MACHINE OPERATOR.M1 [employer] Work Phone: [facility] [place] Start: 04-04-2024 End: 04-04-2024 Home visit Jennifer Ramirez RN Work Phone: [facility] Comment on above: SN UNMADE VISIT Start: 03-31-2024 End: 03-31-2024 Home visit Jennifer Ramirez RN Work Phone: [facility] Comment on above: SN ROUTINE Start: 03-30-2024 End: 04-07-2024 Telephone encounter John Cadena OT Work Phone: [facility] Comment on above: Home Care Start: 03-30-2024 End: 03-30-2024 Home visit John Sajan OT Work Phone: [facility] Comment on above: OT EVAL Start: 03-29-2024 End: 03-29-2024 Home visit Suzie Coleman PT Work Phone: [facility] Comment on above: PT EVAL Start: 03-28-2024 End: 03-28-2024 Home visit Jennifer Ramirez RN Work Phone: [facility] Comment on above: SN SOC Start: 03-26-2024 End: 05-18-2024 Telephone encounter Rachel Chery MD Work Phone: [facility] Comment on above: Home Care (Confirmat ion call ) Home Care ( to katey vela) Start: 03-24-2024 End: 03-24-2024 Evaluation and management of inpatient PERLA WHITE Facility:[facility] Start: 03-22-2024 End: 03-27-2024 Evaluation and management of inpatient RACHEL CHERY Facility:[facility] Start: 03-13-2024 End: 03-17-2024 Telephone encounter All Barrientos Work Phone: Podiatry Comment on above: Results Start: 03-09-2024 End: 03-09-2024 ambulatory RACHEL CHERY Facility:[facility] Start: 03-09-2024 End: 03-09-2024 Patient encounter procedure All Barrientos Work Phone: Podiatry Comment on above: Ulcer of toe of righ t foot, with fat layer exposed (HCC) (Primary Dx); Other acute osteomyelitis of right foot (HCC); Diabetic ulcer of toe associated with diabetes mellitus due to underlying condition, with necrosis of muscle, unspecified laterality (HCC); Closed nondisplaced fracture of metatarsal bone of right foot with routine healing, unspecified metatarsal, subsequent encounter; Type 2 diabetes mellitus with hyperglycemia, with long-term current use of insulin (HCC) Start: 02-29-2024 End: 03-01-2024 Telephone encounter Rachel Chery MD Work Phone: [facility] [place] Start: 02-18-2024 End: 02-18-2024 Patient encounter procedure Rachel Chery MD Work Phone: [facility] [place] Comment on above: Type 2 diabetes lemuel itus with diabetic neuropathy, with long- term current use of insulin (HCC) (Primary Dx); Closed nondisplaced fracture of phalanx of left great toe, unspecified phalanx, initial encounter; Diabetic ulcer of toe of right foot associated with type 2 diabetes mellitus, with fat layer exposed ([facility]); Depression, unspecified depression type; Peripheral polyneuropathy; Type 2 diabetes mellitus with other specified complication, with long-term current use of insulin ([facility]); Depression, unspecified depression type; Primary hypertension; Neuropathy; Peripheral polyneuropathy; Rheumatoid arthritis, involving unspecified site, unspecified whether rheumatoid factor present ([facility]); Anemia, unspecified type; Urge incontinence of urine; Closed nondisplaced fracture of fifth metatarsal bone of right foot with routine healing, subsequent encounter; Encounter for immunization Start: 02-18-2024 End: 02-18-2024 ambulatory RACHEL CHERY Facility:[facility] Start: 01-31-2024 End: 02-14-2024 Telephone encounter Rachel Chery MD Work Phone: [facility] [place] Comment on above: Patient Update; [facility] Lunchroom Monitor calling with update Start: 12-15-2023 Telephone encounter Rachel shen MD Work Phone: [facility] [place] Comment on above: Requesting last offi ce notes Start: 12-09-2023 End: 12-09-2023 ambulatory RACHEL CHERY Facility:[facility] Start: 12-09-2023 End: 12-09-2023 Patient encounter procedure All Barrientos Work Phone: Podiatry Comment on above: Ulcer of toe of righ t foot, with fat layer exposed (HCC) (Primary Dx); Closed nondisplaced fracture of metatarsal bone of right foot with routine healing, unspecified metatarsal, subsequent encounter Start: 12-07-2023 End: 12-07-2023 ambulatory RACHEL Schwartz TALAMPAS Facility:[facility] Start: 12-07-2023 End: 12-07-2023 Subsequent hospital visit by physician Mri [employer] [facility] Wstr (I-Stat/1.5t) Work Phone: Radiology Comment on above: Other acute osteomye litis of right foot (HCC) [M86.171] Start: 12-03-2023 End: 12-03-2023 Subsequent hospital visit by physician Kelly [facility] [place] Mckeon Work Phone: Radiology Comment on above: Ulcer of toe of righ t foot, with fat layer exposed (HCC) [L97.512] Start: 12-03-2023 End: 12-03-2023 ambulatory RACHEL D TALAMPAS Facility:[facility] Start: 12-03-2023 End: 12-03-2023 Patient encounter procedure All Hernandessmith Work Phone: Podiatry Comment on above: Ulcer of toe of righ t foot, with fat layer exposed (HCC) (Primary Dx); Other acute osteomyelitis of right foot (HCC) Start: 11-30-2023 Refill Rachel nieves MD Work Phone: [facility] [place] Comment on above: Refill Request Start: 11-24-2023 Telephone encounter Rachel shen MD Work Phone: [facility] [place] Comment on above: Orders Start: 11-23-2023 End: 11-23-2023 ambulatory RACHEL D TALAMPAS Facility:[facility] Start: 11-23-2023 End: 11-23-2023 Office outpatient visit 40 minutes Rachel Chery MD Work Phone: [facility] [place] Comment on above: Primary hypertension (Primary Dx); Greater trochanteric pain syndrome of right lower extremity; Type 2 diabetes mellitus with hyperglycemia, with long-term current use of insulin (HCC); Nausea and vomiting, unspecified vomiting type Start: 11-22-2023 Telephone encounter Coral corbett PLEATING MACHINE OPERATOR.M1 [employer] Work Phone: Endocrinology Comment on above: Medication Problem ( High blood sugar) Start: 11-12-2023 Telephone encounter Coral corbett PLEATING MACHINE OPERATOR.M1 [employer] Work Phone: Endocrinology Comment on above: Insurance Authorizat ion ([employer] ) Start: 11-10-2023 End: 11-10-2023 Patient encounter procedure Coral Martinez PLEATING MACHINE OPERATOR.M1 [employer] Work Phone: Endocrinology Comment on above: Controlled type 2 di abetes mellitus without complication, with long-term current use of insulin (HCC) (Primary Dx) Start: 11-08-2023 Telephone encounter All White Work Phone: Podiatry Comment on above: Medication Problem ( Hold rifampin) Start: 10-29-2023 End: 10-29-2023 Patient encounter procedure Zakiya Khan PLEATING MACHINE OPERATOR.M1 [employer] CRE[employer]MAN Work Phone: [facility] Comment on above: Nausea (Primary Dx) Start: 10-29-2023 Telephone encounter Teresa rose PLEATING MACHINE OPERATOR.M1 [employer] Work Phone: [facility] [place] Comment on above: Appointment; Patient Update Start: 10-26-2023 End: 10-26-2023 Emergency department patient visit Rachel Chery Facility:[facility] Start: 10-25-2023 End: 10-25-2023 Patient encounter procedure All Barrientos Work Phone: Podiatry Comment on above: Diabetic ulcer of to e associated with diabetes mellitus due to underlying condition, with necrosis of muscle, unspecified laterality (HCC) (Primary Dx); Acute hematogenous osteomyelitis of right foot (HCC) Start: 10-22-2023 Telephone encounter Rachel shen MD Work Phone: [facility] [place] Start: 10-19-2023 Telephone encounter All White Work Phone: Podiatry Comment on above: Appointment Start: 10-01-2023 Telephone encounter Nerishope Jimenezdavid [facility] Hematology/Oncology Comment on above: Transportation Catrina blake to [place] Start: 09-30-2023 End: 09-30-2023 Patient encounter procedure All Barrientos Work Phone: Podiatry Comment on above: Diabetic ulcer of to e associated with diabetes mellitus due to underlying condition, with necrosis of muscle, unspecified laterality (HCC) (Primary Dx); Acute hematogenous osteomyelitis of right foot (HCC) Start: 09-28-2023 Telephone encounter Rachel shen MD Work Phone: [facility] [place] Comment on above: Patient Question Start: 09-24-2023 Orders Only All Hernandesra mtz Work Phone: Podiatry Comment on above: Acute hematogenous o steomyelitis of right foot (HCC) (Primary Dx); Other iron deficiency anemia Start: 09-23-2023 Telephone encounter All Vizcaino michaelsmith Work Phone: Podiatry Start: 09-21-2023 End: 09-21-2023 Patient encounter procedure All Barrientos Work Phone: Podiatry Comment on above: Diabetic ulcer of to e associated with diabetes mellitus due to underlying condition, with necrosis of muscle, unspecified laterality (HCC) (Primary Dx) Start: 09-16-2023 Telephone encounter All White Work Phone: Podiatry Comment on above: Patient Update (Nurs ing home requesting orders) Start: 09-14-2023 Telephone encounter Zonia calzada APRN.M1 [employer] Work Phone: Pre Anesthesia Comment on above: Pre-Op Update; Resul ts New Patient Start: 09-13-2023 End: 09-13-2023 Preprocedural examination done Pac [place] 1 Work Phone: [facility] Work Phone: Start: 09-13-2023 End: 09-13-2023 Refill Mike Candelario APRN.UNATTENDED GROUND SENSOR SPECIALIST Work Phone: [facility] [place] Comment on above: Refill Request Preoperative examina tion (Primary Dx); Type 2 diabetes mellitus with hyperglycemia, with long-term current use of insulin (HCC); Osteomyelitis of right foot, unspecified type (HCC); Neuropathy; Depression, recurrent (HCC); Tobacco use; Rheumatoid arthritis, involving unspecified site, unspecified whether rheumatoid factor present (HCC); Vomiting without nausea, unspecified vomiting type; Gastroesophageal reflux disease without esophagitis; Essential hypertension; Hypercholesterolemia; Benign prostatic hyperplasia with urinary hesitancy; Atopic dermatitis, unspecified type; Class 2 severe obesity with serious comorbidity and body mass index (BMI) of 36.0 to 36.9 in adult, unspecified obesity type (HCC) Start: 09-09-2023 Telephone encounter All White Work Phone: Podiatry Comment on above: schedule surgery Start: 09-09-2023 End: 09-09-2023 Subsequent hospital visit by physician Kelly [facility] [place] Mckeon Work Phone: Radiology Comment on above: Acute hematogenous o steomyelitis of right foot (HCC) [M86.071] Start: 09-09-2023 End: 09-09-2023 Patient encounter procedure All Barrientos Work Phone: Podiatry Comment on above: Diabetic ulcer of to e associated with diabetes mellitus due to underlying condition, with necrosis of muscle, unspecified laterality (HCC) (Primary Dx); Acute hematogenous osteomyelitis of right foot (HCC) Start: 09-03-2023 Telephone encounter Rachel shen MD Work Phone: [facility] [place] Comment on above: Patient Question Start: 08-28-2023 Telephone encounter All White Work Phone: Podiatry Comment on above: Patient Update Start: 08-27-2023 End: 08-27-2023 Patient encounter procedure All Barrientos Work Phone: Podiatry Comment on above: Acute hematogenous o steomyelitis of right foot (HCC) (Primary Dx); Diabetic ulcer of toe associated with diabetes mellitus due to underlying condition, with necrosis of muscle, unspecified laterality (HCC) Start: 08-20-2023 Telephone encounter All White Work Phone: Podiatry Comment on above: Results Start: 08-19-2023 End: 08-19-2023 Subsequent hospital visit by physician Mri Radio [facility] Wstr (I-Stat/1.5t) Work Phone: Radiology Comment on above: Other acute osteomye litis of right foot (HCC) [M86.171] Start: 08-19-2023 End: 08-19-2023 Patient encounter procedure All Barrientos Work Phone: Podiatry Comment on above: Acute hematogenous o steomyelitis of right foot (HCC) (Primary Dx); Other acute osteomyelitis of right foot (HCC) Start: 08-19-2023 End: 08-19-2023 Subsequent hospital visit by physician Xr [facility] [employer] Work Phone: Radiology Comment on above: Pain in right foot [ M79.671] Start: 08-09-2023 Telephone encounter All White Work Phone: Podiatry Comment on above: Patient Update Start: 07-15-2023 End: 07-15-2023 Subsequent hospital visit by physician Xr [facility] [employer] Work Phone: Radiology Comment on above: Diabetic ulcer of to e associated with diabetes mellitus due to underlying condition, with necrosis of muscle, unspecified laterality (HCC) [E08.621, L97.503] Start: 07-15-2023 End: 07-15-2023 Patient encounter procedure All Barrientos Work Phone: Podiatry Comment on above: Diabetic ulcer of to e associated with diabetes mellitus due to underlying condition, with necrosis of muscle, unspecified laterality (HCC) (Primary Dx); Type 2 diabetes mellitus with hyperglycemia, with long-term current use of insulin (HCC); Peripheral polyneuropathy Start: 07-01-2023 End: 07-01-2023 Subsequent hospital visit by physician Xr [facility] [employer] Work Phone: Radiology Comment on above: Diabetic ulcer of to e associated with diabetes mellitus due to underlying condition, with necrosis of muscle, unspecified laterality (HCC) [E08.621, L97.503] Start: 07-01-2023 Telephone encounter Rachel shen MD Work Phone: Internal Medicine [place] Comment on above: Orders Start: 07-01-2023 End: 07-01-2023 Patient encounter procedure All Barrientos Work Phone: Podiatry Comment on above: Diabetic ulcer of to e associated with diabetes mellitus due to underlying condition, with necrosis of muscle, unspecified laterality (HCC) (Primary Dx) Start: 06-23-2023 Refill Rachel nieves MD Work Phone: Internal Medicine [place] Comment on above: Refill Request Start: 06-22-2023 Telephone encounter Coral corbett PLEATING MACHINE OPERATOR.M1 ARM[employer] CREWMAN Work Phone: Endocrinology Comment on above: Medication Problem ( Levemir Flexpen) Start: 06-18-2023 Telephone encounter Coral corbett PLEATING MACHINE OPERATOR.M1 ARM[employer] CREWMAN Work Phone: Endocrinology Comment on above: med question Start: 06-07-2023 End: 06-07-2023 Subsequent hospital visit by physician Xr [facility] [place] Work Phone: Radiology Comment on above: Open wound of right great toe, subsequent encounter [S91.101D] Start: 04-15-2023 Refill Rachel nieves MD Work Phone: Internal Medicine [place] Comment on above: Refill Request Start: 03-30-2023 Refill Rachel nieves MD Work Phone: Internal Medicine [place] Comment on above: Refill Request Start: 03-22-2023 End: 03-22-2023 Office outpatient visit 25 minutes Mike Candelario PLEATING MACHINE OPERATOR.UNATTENDED GROUND SENSOR SPECIALIST Work Phone: Internal Medicine [place] Comment on above: Poor dentition (Prim gely Dx); Rheumatoid arthritis, involving unspecified site, unspecified whether rheumatoid factor present (HCC); Peripheral polyneuropathy; Diabetic ulcer of left heel associated with diabetes mellitus due to underlying condition, limited to breakdown of skin (HCC); Diabetic ulcer of ankle (HCC) Start: 03-18-2023 End: 03-19-2023 Emergency department patient visit Dr. Lior Salcido Work Phone: [facility] Work Phone: Start: 03-17-2023 End: 03-17-2023 Emergency department patient visit Dr. Lior Salcido Work Phone: [facility] Work Phone: Start: 03-12-2023 End: 03-12-[address] Lior Salcido Work Phone: [facility] Work Phone: Start: 03-12-2023 End: 03-12-[address] Loir Salcido Work Phone: [facility] Start: 03-12-[address] Jessica Salcido Work Phone: [facility] Start: 03-12-2023 End: 03-12-2023 ambulatory Rachel Chery Facility:[facility] Start: 02-25-2023 End: 02-25-2023 Office outpatient visit 25 minutes Mike Candelario APRN.CNS Work Phone: Internal Medicine [place] Comment on above: Essential hypertensi on (Primary Dx); Screening for colon cancer; Encounter for screening for lung cancer; Encounter for immunization; Diabetes mellitus (HCC); Rheumatoid arthritis, involving unspecified site, unspecified whether rheumatoid factor present (HCC); Neuropathy Start: 02-12-2023 End: 02-12-[address] Lior Salcido Work Phone: [facility] Work Phone: Start: 02-12-2023 End: 02-12-[address] Lior Salcido Work Phone: [facility] Start: 02-12-2023 End: 02-12-2023 ambulatory Hieu CASTRO Facility:[facility] Start: 09-13-2023 Telephone encounter Rachel shen MD Work Phone: [facility] [place] Comment on above: Patient Update Start: 01-12-2023 End: 01-12-[address] Lior Salcido Work Phone: [facility] Work Phone: Start: 01-12-2023 End: 01-12-[address] Lior Salcido Work Phone: [facility] Start: 01-12-[address] Jessica Salciod Work Phone: [facility] Start: 01-05-2023 End: 01-05-[address] Lior Salcido Work Phone: [facility] Work Phone: Start: 01-05-2023 End: 01-05-[address] Lior Salcido Work Phone: [facility] Start: 01-05-[address] Jessica Salcido Work Phone: [facility] Start: 12-31-2022 End: 12-31-[address] Lior Salcido Work Phone: [facility] Work Phone: Start: 12-31-2022 End: 12-31-[address] Lior Salcido Work Phone: [facility] Start: 12-31-[address] Jessica Salcido Work Phone: [facility] Start: 12-29-2022 End: 12-29-[address] Lior Salcido Work Phone: [facility] Work Phone: Start: 12-29-2022 End: 12-29-[address] Lior Salcido Work Phone: [facility] Start: 12-29-[address] Jessica Salcido Work Phone: [facility] Start: 12-22-2022 End: 12-22-[address] Lior Salcido Work Phone: [facility] Work Phone: Start: 12-22-2022 End: 12-22-[address] Lior Salcido Work Phone: [facility] Start: 12-17-2022 Refill Rachel nieves MD Work Phone: Internal Medicine [place] Comment on above: Refill Request Start: 12-15-2022 End: 12-15-[address] Lior Salcido Work Phone: [facility] Work Phone: Start: 12-15-2022 End: 12-15-[address] Lior Salcido Work Phone: [facility] Start: 12-15-[address] Jessica Salcido Work Phone: [facility] Start: 12-11-2022 Telephone encounter Rachel shen MD Work Phone: Internal Medicine [place] Comment on above: Patient Update Start: 12-03-2022 Non-patient / Non-visit Dr. Carmina Salcido Work Phone: [facility] Work Phone: Start: 12-03-2022 End: 12-14-[address] Lior Salcido Work Phone: [facility] Work Phone: Start: 12-03-2022 End: 12-14-[address] Lior Salcido Work Phone: [facility] Work Phone: Start: 12-02-2022 Refill Rachel nieves MD Work Phone: Internal Medicine [place] Comment on above: Refill Request Start: 11-24-2022 End: 11-24-2022 Office outpatient visit 25 minutes Mike Candelario APRN.UNATTENDED GROUND SENSOR SPECIALIST Work Phone: Internal Medicine [place] Comment on above: Diabetic ulcer of an kle (HCC) (Primary Dx); Rheumatoid arthritis, involving unspecified site, unspecified whether rheumatoid factor present (HCC); Peripheral polyneuropathy; Snoring; Daytime sleepiness; Type 2 diabetes mellitus with diabetic neuropathy, with long-term current use of insulin (HCC) Start: 11-19-2022 Refill Rachel nieves MD Work Phone: Internal Medicine [place] Comment on above: Refill Request Start: 11-18-2022 Telephone encounter Racehl shen MD Work Phone: Internal Medicine [place] Comment on above: Wheelchair Prescript ion Start: 11-16-2022 Telephone encounter Teresa rose APRN.M1 ARMOR CREWMAN Work Phone: Internal Medicine [place] Comment on above: Results Start: 11-11-2022 End: 11-11-2022 Patient encounter procedure Teresa Griffin PLEATING MACHINE OPERATOR.M1 ARMOR CREWMAN Work Phone: Internal Medicine [place] Comment on above: Diabetic ulcer of an kle (HCC) (Primary Dx); Type 2 diabetes mellitus with other specified complication, with long-term current use of insulin (HCC); Neuropathy; Peripheral polyneuropathy; Closed nondisplaced fracture of phalanx of left great toe, unspecified phalanx, initial encounter Start: 11-04-2022 Telephone encounter Mike gaona PLEATING MACHINE OPERATOR.UNATTENDED GROUND SENSOR SPECIALIST Work Phone: [facility] [place] Comment on above: Patient Question Start: 11-02-2022 Telephone encounter Mike Garcia ks PLEATING MACHINE OPERATOR.UNATTENDED GROUND SENSOR SPECIALIST Work Phone: Internal Medicine [place] Comment on above: Results Start: 10-29-2022 Chart abstracting Cecilia hale [facility] Work Phone: Psychology Start: 10-28-2022 Telephone encounter Leticia Curry sser PA-C Work Phone: Rheumatology Comment on above: Results Start: 10-26-2022 Telephone encounter Rachel shen MD Work Phone: Internal Medicine [place] Comment on above: wheelchair prescript ion Start: 10-23-2022 End: 10-23-2022 Subsequent hospital visit by physician Radio General Roberta Mckeon Work Phone: Radiology Comment on above: History of rheumatoi d arthritis [Z87.39] Start: 10-22-2022 Telephone encounter Cecilia sofia [facility] Work Phone: Psychology Comment on above: BH Consult Start: 09-18-2022 Orders Only All Nancy mtz Work Phone: Podiatry Comment on above: Closed nondisplaced fracture of distal phalanx of lesser toe of left foot, initial encounter (Primary Dx); Closed nondisplaced fracture of proximal phalanx of lesser toe of left foot, initial encounter Start: 09-08-2022 Telephone encounter All Vizcaino michaelmsith Work Phone: Podiatry Comment on above: New Patient Start: 09-07-2022 Refill Teresa Humphreys PRN.M1 ARMOR CREWMAN Work Phone: Internal Medicine [place] Comment on above: Refill Request Patient Update Start: 09-04-2022 Refill Rachel nieves MD Work Phone: Internal Medicine [place] Comment on above: Refill Request; Refi ll Request Start: 08-26-2022 Refill Rachel nieves MD Work Phone: Internal Medicine [place] Comment on above: Refill Request Start: 08-20-2022 Refill Rachel nieves MD Work Phone: [facility] [place] Comment on above: Refill Request Start: 08-13-2022 Telephone encounter Rachel shen MD Work Phone: Internal Medicine [place] Comment on above: Patient Update Start: 08-11-2022 Refill Rachel nieves MD Work Phone: [facility] [place] Comment on above: Refill Request Start: 08-04-2022 Telephone encounter Rachel shen MD Work Phone: Internal Medicine [place] Comment on above: Refill Request Start: 07-16-2022 Refill Rachel nieves MD Work Phone: Internal Medicine [place] Comment on above: Refill Request Start: 06-25-2022 Telephone encounter Leticia dalal PA-C Work Phone: [facility] Comment on above: Appointment Start: 06-12-2022 Telephone encounter Rachel shen MD Work Phone: Internal Medicine [place] Comment on above: Medication Question Start: 06-11-2022 Refill Rachel nieves MD Work Phone: Internal Medicine [place] Comment on above: Refill Request Start: 05-27-2022 End: 05-27-2022 Office outpatient visit 40 minutes Rachel Chery MD Work Phone: Internal Medicine [place] Comment on above: Seborrheic dermatiti s (Primary Dx); Hair thinning; Hand eczema; Essential hypertension; Type 2 diabetes mellitus with other specified complication, with long-term current use of insulin (HCC); Nausea and vomiting, unspecified vomiting type Start: 05-12-2022 Refill Rachel nieves MD Work Phone: Internal Medicine [place] Comment on above: Refill Request Start: 2022 Telephone encounter Mike gaona APRN.UNATTENDED GROUND SENSOR SPECIALIST Work Phone: Internal Medicine [place] Comment on above: Results (lab) Start: 04-24-2022 End: 04-24-2022 Office outpatient visit 25 minutes Mike Candelario PLEATING MACHINE OPERATOR.UNATTENDED GROUND SENSOR SPECIALIST Work Phone: Internal Medicine [place] Comment on above: Vertigo (Primary Dx) ; Urine retention; Hyperkalemia; Daytime sleepiness; Snoring; Essential hypertension; Limited mobility; Cognitive deficits; History of rheumatoid arthritis; Type 2 diabetes mellitus with other specified complication, with long-term current use of insulin (HCC); Peripheral polyneuropathy Start: 04-14-2022 End: 04-14-2022 Patient encounter procedure Usama Bryan PA-C Work Phone: Urology Comment on above: Retention of urine ( Primary Dx) Start: 04-10-2022 End: 04-11-2022 Emergency department patient visit Dr. Lior Salcido Work Phone: [facility] Start: 04-10-2022 End: 04-10-2022 Emergency department patient visit Dr. Lior Salcido Work Phone: [facility] Start: 03-30-2022 Refill Coral Martinez APRN.M1 ARMOR CREWMAN Work Phone: Endocrinology Comment on above: Refill Request Start: 03-06-2022 Telephone encounter Rachel shen MD Work Phone: Internal Medicine [place] Comment on above: Referral Request Start: 03-05-2022 Non-patient / Non-visit Dr. Carmina Salcido Work Phone: [facility] Start: 03-05-2022 End: 03-16-[address] Lior Slacido Work Phone: [facility] Work Phone: Start: 03-05-2022 End: 03-16-[address] [facility] Start: 02-26-2022 Non-patient / Non-visit Dr. Carmina Salcido Work Phone: [facility] Start: 02-19-2022 Non-patient / Non-visit Dr. Carmina Salcido Work Phone: [facility] Start: 02-11-2022 End: 02-11-2022 Patient encounter procedure Coralsimón Martinez PLEATING MACHINE OPERATOR.M1 ARMOR CREWMAN Work Phone: Endocrinology Comment on above: Type II diabetes marlin litus with manifestations (HCC) (Primary Dx); Type 2 diabetes mellitus with other specified complication, with long-term current use of insulin (HCC) Start: 02-06-2022 Refill Rachel nieves MD Work Phone: Internal Medicine [place] Comment on above: Refill Request Start: 02-05-2022 Non-patient / Non-visit Dr. Carmina Salcido Work Phone: [facility] Start: 02-05-2022 End: 02-13-[address] [facility] Start: 02-04-2022 Telephone encounter Rachel shen MD Work Phone: Internal Medicine [place] Comment on above: Insurance Authorizat ion Start: 02-03-2022 Telephone encounter Neris DAY Work Phone: Psycholgy Comment on above: outreach Start: 01-30-2022 End: 01-30-2022 Patient encounter procedure Mike Candelario APRN.UNATTENDED GROUND SENSOR SPECIALIST Work Phone: Internal Medicine [place] Comment on above: Type 2 diabetes lemuel itus with other specified complication, with long-term current use of insulin (HCC) (Primary Dx); Encounter for immunization; Special screening examination for viral disease; Screening for HIV (human immunodeficiency virus); Screening for lipid disorders; Screening for diabetes mellitus (DM); Screening for colon cancer; Screening for prostate cancer; Rheumatoid arthritis, involving unspecified site, unspecified whether rheumatoid factor present (HCC); Eczema, unspecified type; Depression, unspecified depression type; History of rheumatoid arthritis; Peripheral polyneuropathy; Primary hypertension; Hyperlipidemia, unspecified hyperlipidemia type Refill Request Start: 01-22-2022 Non-patient / Non-visit Dr. Carmina Salcido Work Phone: [facility] Start: 01-15-2022 Non-patient / Non-visit Dr. Carmina Salcido Work Phone: [facility] Start: 12-11-2021 Non-patient / Non-visit Dr. Carmina Salcido Work Phone: [facility] Start: 12-11-2021 End: 12-14-[address] Lior Salcido Work Phone: [facility] Start: 12-04-2021 Non-patient / Non-visit Dr. Carmina Salcido Work Phone: [facility] Start: 11-27-2021 Non-patient / Non-visit Dr. Carmina Salcido Work Phone: [facility] Start: 11-20-2021 Non-patient / Non-visit Dr. Carmina Salcido Work Phone: [facility] Start: 11-13-2021 End: 11-13-[address] Lior Salcido Work Phone: [facility] Start: 11-06-2021 Non-patient / Non-visit Dr. Carmina Salcido Work Phone: [facility] Start: 10-30-2021 Non-patient / Non-visit Dr. Carmina Salcido Work Phone: [facility] Start: 10-23-2021 Non-patient / Non-visit Dr. Carmina Salcido Work Phone: [facility] Start: 10-15-2021 Telephone encounter Flori El APRN.CNP Work Phone: Internal Medicine [place] Comment on above: Appointment Start: 05-31-2018 End: 06-01-2018 Patient encounter procedure JESSICA Humphreys [facility] Start: 05-03-2018 End: 05-16-2018 Patient encounter procedure Shiloh Vernon Facility:[facility] Procedures Date Procedure Procedure Detail Performing Clinician Start: 03-23-2024 Antibody screen PERLA WHITE Comment on above: Order Comment: Speci men Type: BLOOD SPECIMEN Ordering Facility: [facility] Address: [facility] [place] [id number] Performed By: #### T SCR #### [facility] [place] [id number] [address] [place] [address] [facility] Start: 12-07-2023 Mri lower extrem oth /thn jt w/o contr matrl All Hernandesdilcia Work Phone: Start: 11-10-2023 Hemoglobin A1c/Hemoglobin.total in Blood Coral Martinez PLEATING MACHINE OPERATOR.M1 ARM[employer] CREWMAN Work Phone: Start: 09-09-2023 Cul bact xcpt urine blood/stool aerobic isol All Hernandesdilcia Work Phone: Start: 08-19-2023 Mri lower extrem oth /thn jt w/o & w/contr matr All Barrientos Work Phone: Start: 06-07-2023 Radex foot complete minimum 3 views Mike Candelario PLEATING MACHINE OPERATOR.UNATTENDED GROUND SENSOR SPECIALIST Work Phone: Start: 03-18-2023 Plain chest X-ray Dr. Leona Salcido Work Phone: Start: 03-18-2023 Computed tomography of abdomen and pelvis with intravenous contrast Dr. Lior Salcido Work Phone: Start: 03-18-2023 CT of head without contrast Dr. Lior Salcido Work Phone: Start: 11-11-2022 Cul bact xcpt urine blood/stool aerobic isol Teresa Griffin PLEATING MACHINE OPERATOR.M1 ARMOR CREWMAN Work Phone: Start: 10-23-2022 Radex foot complete minimum 3 views Leticia Orlando PA-C Work Phone: Start: 04-10-2022 Plain chest X-ray Dr. Leona Salcido Work Phone: Start: 01-30-2022 INFLUENZA VACCINE QUADRIVALENT 6 MO - 64 YRS IM Mike Candelario APRN.UNATTENDED GROUND SENSOR SPECIALIST Work Phone: Anaerobic microbial culture Dr. Lior Salcido Work Phone: Investigation of transfusion reaction Dr. Lior Salcido Work Phone: Microbial culture, routine D crista Salcido Work Phone: Plan of Treatment Date Care Activity Detail Author Start: 01-30-2027 PROSTATE CANCER SCREENING DISCUSSION PROSTATE CANCER SCREENING DISCUSSION [facility] Start: 01-30-2027 Prostate specific antigen measurement Prostate Cancer Screening Discussion [facility] Start: 10-13-2025 BP Controlled (<130/80) BP Controlled (<130/80) [facility] Start: 10-13-2025 Hepatitis B surface antibody level LDL Cholesterol [facility] Start: 08-23-2025 Annual PCP Team Chronic Disease Visit Annual PCP Team Chronic Disease Visit [facility] Start: 08-23-2025 BP Controlled (<130/80) BP Controlled (<130/80) [facility] Start: 05-25-2025 BP Controlled (<130/80) BP Controlled (<130/80) [facility] Start: 05-25-2025 Covid-19 Vaccine ( season) Covid-19 Vaccine () [facility] Comment on above: Postponed from 01/16/2024 (Declined at t his time) Start: 05-25-2025 Hepatitis B surface antibody level LDL Cholesterol [facility] Start: 04-15-2025 Hemoglobin A1c measurement HbA1C [facility] Start: 04-14-2025 BP Controlled (<130/80) BP Controlled (<130/80) [facility] Start: 04-10-2025 BP Controlled (<130/80) BP Controlled (<130/80) [facility] Start: 03-29-2025 BP Controlled (<130/80) BP Controlled (<130/80) [facility] Start: 03-28-2025 BP Controlled (<130/80) BP Controlled (<130/80) [facility] Start: 03-05-2025 End: 03-05-2025 Patient encounter procedure 03/05/2025 1:40 PM EDT Office Visit Internal Medicine [place] [address] [facility] [place] [address] Rachel Chery MD [address] [facility] [place] [address] 3 month follow up [facility] Medicine [place] Comment on above: 3 month follow up Start: 02-17-2025 Annual PCP Team Chronic Disease Visit Annual PCP Team Chronic Disease Visit [facility] Start: 02-17-2025 BP Controlled (<130/80) BP Controlled (<130/80) [facility] Start: 12-01-2024 End: 12-01-2024 Patient encounter procedure 12/01/2024 10:40 AM EDT Office Visit Internal Medicine [place] [address] [facility] [place] [address] Rachel Chery MD [address] [facility] [place] [address] 3 month follow up [facility] [place] Comment on above: 3 month follow up Start: 11-22-2024 Annual PCP Team Chronic Disease Visit Annual PCP Team Chronic Disease Visit [facility] Start: 11-22-2024 BP Controlled (<130/80) BP Controlled (<130/80) [facility] Start: 11-16-2024 End: 02-15-2025 CBC W Auto Differential panel - Blood COMPLETE BLOOD COUNT AND DIFFERENTIAL Lab Routine Dizziness Iron deficiency anemia, unspecified iron deficiency anemia type Expected: 11/16/2024 (Approximate), Expires: 02/15/2025 [facility] Work Phone: Comment on above: Expected: 11/16/2024 (Approximate), Expi res: 02/15/2025 Start: 11-16-2024 End: 02-15-2025 Ferritin [Mass/volume] in Serum or Plasma FERRITIN Lab Routine Dizziness Iron deficiency anemia, unspecified iron deficiency anemia type Expected: 11/16/2024 (Approximate), Expires: 02/15/2025 [facility] Comment on above: Expected: 11/16/2024 (Approximate), Expi res: 02/15/2025 Start: 11-16-2024 End: 02-15-2025 Transferrin [Mass/volume] in Serum or Plasma TRANSFERRIN Lab Routine Dizziness Iron deficiency anemia, unspecified iron deficiency anemia type Expected: 11/16/2024 (Approximate), Expires: 02/15/2025 [facility] Comment on above: Expected: 11/16/2024 (Approximate), Expi res: 02/15/2025 Start: 11-13-2024 End: 11-13-2024 Patient encounter procedure 11/13/2024 1:30 PM EDT Office Visit Pain Management [address] [id number] Hieu Munoz MD [address] [facility] [place] [address] Type 2 diabetes mellitus with hyperglycemia, with long-term current use of insulin (HCC) [E11.65, Z79.4]; Pain in both feet [M79.671, M79.672] Pain Management Comment on above: Type 2 diabetes mellitus with hyperglyce zulma, with long-term current use of insulin (HCC) [E11.65, Z79.4]; Pain in both feet [M79.671, M79.672] Start: 10-17-2024 End: 01-16-2025 Comprehensive metabolic 2000 panel - Serum or Plasma COMPREHENSIVE METABOLIC PANEL Lab Routine Dizziness Expected: 10/17/2024, Expires: 01/16/2025 [facility] Comment on above: Expected: 10/17/2024, Expires: Start: 10-17-2024 End: 01-16-2025 Iron and Iron binding capacity panel - Serum or Plasma IRON AND TIBC Lab Routine Dizziness Iron deficiency anemia, unspecified iron deficiency anemia type Expected: 10/17/2024, Expires: 01/16/2025 [facility] Comment on above: Expected: 10/17/2024, Expires: Start: 10-13-2024 End: 01-12-2025 CBC W Auto Differential panel - Blood [facility] Work Phone: Comment on above: Expected: 10/13/2024, Expires: Start: 09-20-2024 End: 09-20-2024 Patient encounter procedure Endocrinology Comment on above: DEX COM renewal DEX COM renewal - fa x OV notes to ADS Start: 09-19-2024 Hemoglobin A1c measurement HbA1C [facility] Start: 09-15-2024 End: 09-15-2024 Patient encounter procedure 09/15/2024 2:30 PM EDT Office Visit [facility] Ophthalmology [address] [place] [address] Perla Dacosta, OD [address] [place], [place] [id number] Type 2 diabetes mellitus, with long-term current use of insulin (HCC) [E11.9, Z79.4]; Screening for diabetic retinopathy [Z13.5] Ophthalmology Comment on above: Type 2 diabetes mellitus, with long-term current use of insulin (HCC) [E11.9, Z79.4]; Screening for diabetic retinopathy [Z13.5] Start: 09-12-2024 BP Controlled (<130/80) BP Controlled (<130/80) [facility] Start: 08-23-2024 End: 08-23-2024 Patient encounter procedure Internal Medicine [place] Comment on above: 3 Month follow up 3 Month follow up/pt due for colonoscopy Start: 07-31-2024 End: 07-31-2024 Patient encounter procedure 07/31/2024 10:00 AM EDT Office Visit Pulmonary Medicine [address] [place], [place] [id number] Keesha Ramírez APRN.M1 [employer] [address] [place] [address] Encounter for screening for lung cancer [Z12.2] Pulmonary Medicine Comment on above: Encounter for screening for lung cancer [Z12.2] Start: 07-17-2024 End: 07-17-2024 Patient encounter procedure 07/17/2024 1:45 PM EST Office Visit [facility] Ophthalmology [address] [place] [address] Perla Dacosta, OD [address] [place] [address] Type 2 diabetes mellitus, with long-term current use of insulin (HCC) [E11.9, Z79.4]; Screening for diabetic retinopathy [Z13.5] Ophthalmology Comment on above: Type 2 diabetes mellitus, with long-term current use of insulin (HCC) [E11.9, Z79.4]; Screening for diabetic retinopathy [Z13.5] Start: 05-25-2024 End: 08-24-2024 LIPID PANEL, NONFASTING [facility] Comment on above: Expected: 05/25/2024, Expires: Start: 05-25-2024 End: 08-24-2024 Microalbumin/Creatini ne [Mass Ratio] in Urine ALBUMIN/CREATININE RATIO, URINE Lab Routine Type 2 diabetes mellitus, with long-term current use of insulin (HCC) Expected: 05/25/2024, Expires: 08/24/2024 [facility] Work Phone: Comment on above: Expected: 05/25/2024, Expires: Start: 05-25-2024 End: 05-25-2024 Patient encounter procedure 05/25/2024 10:40 AM EST Office Visit Internal Medicine [place] [address] [place] [address] Mike Candelario APRN.UNATTENDED GROUND SENSOR SPECIALIST [address] [place] [address] 6 month follow up Internal Medicine [place] Comment on above: 6 month follow up Start: 05-19-2024 Annual PCP Team Chronic Disease Visit Annual PCP Team Chronic Disease Visit [facility] Start: 05-19-2024 Hepatitis B screening Urine Albumin:Creatinine Ratio [facility] Start: 05-19-2024 End: 05-19-2024 Patient encounter procedure 05/19/2024 2:00 PM EST Office Visit Internal Medicine [place] [address] [facility] [place] [address] Rachel Chery MD [address] [facility] [place] [phone] 6 month follow up Internal Medicine [place] Comment on above: 6 month follow up Start: 05-17-2024 Medicare Advantage Annual Wellness Visit Medicare Advantage Annual Wellness Visit [facility] Start: 05-11-2024 Hemoglobin A1c measurement HbA1C [facility] Start: 04-17-2024 End: 04-17-2024 Patient encounter procedure Podiatry Comment on above: Discuss a toe removal (last visit 4) Start: 03-22-2024 BP Controlled (<130/80) BP Controlled (<130/80) [facility] Start: 03-22-2024 End: 03-22-2024 ambulatory Hematology/Oncology Comment on above: EXTENSION PROFESSOR/PRE-OP CLEARANCE/REF ALL BARRIENTOS * FIRST AVAILABLE Start: 03-14-2024 Hemoglobin A1c measurement HbA1C [facility] Start: 02-26-2024 BP Controlled (<130/80) BP Controlled (<130/80) [facility] Start: 02-18-2024 End: 02-18-2024 Patient encounter procedure 02/18/2024 4:00 PM EDT Office Visit Internal Medicine [place] [address] [place] [address] Rachel Chery MD [address] [place] [address] 3 Month follow up Internal Medicine [place] Comment on above: 3 Month follow up Start: 02-18-2024 End: 05-19-2024 Hemoglobin A1c in Blood HEMOGLOBIN A1C Lab Routine Type 2 diabetes mellitus with diabetic neuropathy, with long-term current use of insulin (HCC) Expected: 02/18/2024 (Approximate), Expires: 05/19/2024 [facility] Work Phone: Comment on above: Expected: 02/18/2024 (Approximate), Expi res: 05/19/2024 Start: 02-18-2024 End: 05-19-2024 Lipid 1996 panel - Serum or Plasma LIPID PANEL BASIC Lab Routine Type 2 diabetes mellitus with diabetic neuropathy, with long-term current use of insulin (HCC) Expected: 02/18/2024 (Approximate), Expires: 05/19/2024 [facility] Comment on above: Expected: 02/18/2024 (Approximate), Expi res: 05/19/2024 Start: 02-18-2024 End: 05-19-2024 LIPID PANEL, NONFASTING LIPID PANEL, NONFASTING Lab Routine Type 2 diabetes mellitus with diabetic neuropathy, with long-term current use of insulin (HCC) Expected: 02/18/2024 (Approximate), Expires: 05/19/2024 [facility] Comment on above: Expected: 02/18/2024 (Approximate), Expi res: 05/19/2024 Start: 01-20-2024 End: 01-20-2024 Patient encounter procedure 01/20/2024 10:15 AM EDT Office Visit Podiatry [address] [place] [address] All Barrientos [address] [place] [address] 1 week follow up ulcer Podiatry Comment on above: 1 week follow up ulcer Start: 01-16-2024 Covid-19 Vaccine ( season) Covid-19 Vaccine ( season) [facility] Start: 01-16-2024 Covid-19 Vaccine ( season) Covid-19 Vaccine ( season) [facility] Start: 01-16-2024 Influenza vaccination [facility] Start: 01-06-2024 End: 01-06-2024 Patient encounter procedure 01/06/2024 11:00 AM EDT Office Visit Podiatry [address] [place] [address] All Barrientos [address] [place] [address] 1 week follow up ulcer Podiatry Comment on above: 1 week follow up ulcer Start: 12-31-2023 End: 12-31-2023 Patient encounter procedure 12/31/2023 10:45 AM EDT Office Visit Podiatry [address] [place] [address] All Barrientos [address] [place] [address] 1 week follow up ulcer Podiatry Comment on above: 1 week follow up ulcer Start: 12-24-2023 End: 12-24-2023 Patient encounter procedure 12/24/2023 1:00 PM EDT Office Visit Podiatry [address] [place] [address] All Barrientos [address] [place] [address] 1 week follow up ulcer Podiatry Comment on above: 1 week follow up ulcer Start: 12-22-2023 End: 12-22-2023 Patient encounter procedure 12/22/2023 11:20 AM EDT Office Visit Gastroenterology [place] [address] [place] [id number] Sruthi Pickering PA-C [address] [place], [place] [id number] DIARRHA / VOMITTING [facility]enter[facility] [place] Comment on above: DIARRHA / VOMITTING Start: 12-13-2023 End: 12-13-2023 ambulatory 12/13/2023 11:10 AM EDT Visit (SP) Office Hematology/Oncology [address] [place] [address] Hieu Palm DO [address] [place] [address] EXTENSION PROFESSOR/PRE-OP CLEARANCE/REF ALL BARRIENTOS* FIRST AVAILABLE Hematology/Oncology Comment on above: EXTENSION PROFESSOR/PRE-OP CLEARANCE/REF ALL BARRIENTOS * FIRST AVAILABLE Start: 12-09-2023 End: 12-09-2023 Patient encounter procedure 12/09/2023 10:30 AM EDT Office Visit Podiatry [address] [place] [address] All Barrientos [address] [place] [address] 1 week follow up ulcer Podiatry Comment on above: 1 week follow up ulcer Start: 12-07-2023 End: 12-07-2023 Patient encounter procedure 12/07/2023 10:00 AM EDT Appointment Radiology [address] [place] [address] Other acute osteomyelitis of right foot (HCC) [M86.171] Radiology Comment on above: Other acute osteomyelitis of right foot (HCC) [M86.171] Start: 11-25-2023 BP CONTROLLED (<130/80) BP CONTROLLED (<130/80) [facility] Start: 11-24-2023 End: 11-24-2023 FQHC visit new patient 11/24/2023 9:00 AM EDT Visit (SP) Office Hematology/Oncology [address] [place] [address] [place] [address] [place] [address] New patient/ dx: anemia/ Referring: Dr. Barrientos 1st avail Hematology/Oncology Comment on above: New patient/ dx: anemia/ Referring: Dr. Barrientos 1st avail Start: 11-23-2023 End: 11-23-2023 Patient encounter procedure 11/23/2023 2:00 PM EDT Office Visit Internal Medicine [place] [address] [place] [address] Rachel Chery MD [address] [place] [address] 6 month follow up Internal Medicine [place] Comment on above: 6 month follow up Start: 11-12-2023 3 comp foot exam completed DIABETIC FOOT EXAM [facility] Start: 11-12-2023 ANNUAL PCP TEAM CHRONIC DISEASE VISIT ANNUAL PCP TEAM CHRONIC DISEASE VISIT [facility] Start: 11-12-2023 BP CONTROLLED (<130/80) BP CONTROLLED (<130/80) [facility] Start: 11-12-2023 Diabetic foot examination Diabetic Foot Exam [facility] Start: 11-10-2023 End: 11-10-2023 Patient encounter procedure 11/10/2023 11:45 AM EDT Office Visit Endocrinology [address] [place] [address] Coral Martinez APRN.M1 [employer] [address] [place] [address] follow up Endocrinology Comment on above: follow up Start: 11-09-2023 End: 11-09-2023 Patient encounter procedure 11/09/2023 1:00 PM EDT Office Visit Podiatry [address] [place], [place] [id number] All Barrientos [address] [place] [address] 2 week follow up ulcer Podiatry Comment on above: 2 week follow up ulcer Start: 10-29-2023 End: 10-29-2023 Patient encounter procedure 10/29/2023 3:00 PM EDT Office Visit Internal Medicine [place] [address] [place] [address] Teresa Griffin APRN.M1 [employer] [address] [place], [place] [phone] stomach pain and nausea Internal Medicine [place] Comment on above: stomach pain and nausea Start: 10-25-2023 End: 10-25-2023 Patient encounter procedure 10/25/2023 3:30 PM EDT Office Visit Podiatry [address] [place] [address] All Barrientos [address] [place] [address] great toe ulceration Podiatry Comment on above: great toe ulceration Start: 10-24-2023 BP CONTROLLED (<130/80) BP CONTROLLED (<130/80) [facility] Start: 10-23-2023 BP CONTROLLED (<130/80) BP CONTROLLED (<130/80) [facility] Start: 10-06-2023 End: 10-06-2023 FQ visit new patient 10/06/2023 10:00 AM EDT Visit (SP) Office Hematology/Oncology [address] [place] [address] Marni Levine, PLEATING MACHINE OPERATOR.M1 [employer] [address] [place] [address] New patient Hematology/Oncology Comment on above: New patient Start: 10-05-2023 End: 10-05-2023 Patient encounter procedure Podiatry Comment on above: 18 days s/p Partial vs total toe amputat ion, right great toe 1 week Follow up Start: 10-04-2023 Subsequent hospital visit by physician 10/04/2023 Hospital Encounter [facility] [address] [place] [address] Konstantin Martin MD [address] [place] [address] Anemia [D64.9] [facility] Comment on above: Anemia [D64.9] Start: 10-01-2023 End: 10-01-2023 Patient encounter procedure 10/01/2023 10:45 AM EDT Office Visit Podiatry [address] [place], [place] [id number] All Barrientos [address] [place], [place] [phone] pre op Podiatry Comment on above: pre op Start: 09-30-2023 End: 09-30-2023 ambulatory 09/30/2023 1:00 PM EDT Visit (SP) Office Hematology/Oncology [address] [place], [place] [id number] [place] [address] [place] [address] EXTENSION PROFESSOR/PRE-OP CLEARANCE/REF ALL BARRIENTOS* FIRST AVAILABLE Hematology/Oncology Comment on above: EXTENSION PROFESSOR/PRE-OP CLEARANCE/REF ALL BARRIENTOS * FIRST AVAILABLE Start: 09-28-2023 End: 09-28-2023 Patient encounter procedure 09/28/2023 1:00 PM EDT Office Visit Podiatry [address] [place] [address] [facility] [address] [place] [address] 11 days s/p Partial vs total toe amputation, right great toe Podiatry Comment on above: 11 days s/p Partial vs total toe amputat ion, right great toe Start: 09-24-2023 End: 12-24-2023 Comprehensive metabolic 2000 panel - Serum or Plasma COMPREHENSIVE METABOLIC PANEL Lab Routine Acute hematogenous osteomyelitis of right foot (HCC) Other iron deficiency anemia Expected: 09/24/2023, Expires: 12/24/2023 [facility] Work Phone: Comment on above: Expected: 09/24/2023, Expires: 4 Start: 09-24-2023 End: 12-24-2023 Ferritin [Mass/volume] in Serum or Plasma FERRITIN Lab Routine Acute hematogenous osteomyelitis of right foot (HCC) Other iron deficiency anemia Expected: 09/24/2023, Expires: 12/24/2023 [facility] Comment on above: Expected: 09/24/2023, Expires: 4 Start: 09-24-2023 End: 12-24-2023 Iron and Iron binding capacity panel - Serum or Plasma IRON AND TIBC Lab Routine Acute hematogenous osteomyelitis of right foot (HCC) Other iron deficiency anemia Expected: 09/24/2023, Expires: 12/24/2023 [facility] Comment on above: Expected: 09/24/2023, Expires: 4 Start: 09-21-2023 End: 09-21-2023 Patient encounter procedure 09/21/2023 1:00 PM EDT Office Visit Podiatry [address] [place] [address] All Barrientos [address] [place] [address] 4 days s/p Partial vs total toe amputation, right great toe Podiatry Comment on above: 4 days s/p Partial vs total toe amputati on, right great toe Start: 09-17-2023 End: 09-17-2023 Admission to same day surgery center [facility] Comment on above: AMPUTATION TOE(S) Start: 09-17-2023 End: 09-17-2023 Amputation metatarsal w/toe single ME OR Start: 09-17-2023 Subsequent hospital visit by physician [facility] Comment on above: Osteomyelitis of right foot, unspecified type (HCC) [M86.9] Start: 09-13-2023 End: 09-13-2023 Anesthesia consultation 09/13/2023 3:00 PM EDT PAT Pre Anesthesia [address] [place] [address] 1, Pacc [place] [address] [place] [address] AMPUTATION TOE(S) [1022] - Right Pre Anesthesia Comment on above: AMPUTATION TOE(S) [1022] - Right Start: 09-09-2023 End: 09-09-2023 Patient encounter procedure 09/09/2023 11:00 AM EDT Office Visit Podiatry [address] [place] [address] All Barrientos [address] [place] [address] 2 wk follow up ulcer - time/date per [facility] Pod[facility]ry Comment on above: 2 wk follow up ulcer - time/date per Trista sher Start: 08-18-2023 Hemoglobin A1c measurement HbA1C [facility] Start: 05-27-2023 End: 07-27-2023 ALBUMIN/CREAT RATIO RND UR ALBUMIN/CREAT RATIO RND UR Lab Routine Type 2 diabetes mellitus with diabetic neuropathy, with long-term current use of insulin (HCC) Expected: 05/27/2023 (Approximate), Expires: 07/27/2023 [facility] Work Phone: Comment on above: Expected: 05/27/2023 (Approximate), Expi res: 07/27/2023 Start: 05-27-2023 ANNUAL PCP TEAM CHRONIC DISEASE VISIT ANNUAL PCP TEAM CHRONIC DISEASE VISIT [facility] Start: 05-27-2023 BP CONTROLLED (<130/80) BP CONTROLLED (<130/80) [facility] Start: 05-27-2023 End: 07-27-2023 Hemoglobin A1c in Blood HGB A1C Lab Routine Type 2 diabetes mellitus with diabetic neuropathy, with long-term current use of insulin ([facility]) Expected: 05/27/2023 (Approximate), Expires: 07/27/2023 [facility] Work Phone: Comment on above: Expected: 05/27/2023 (Approximate), Expi res: 07/27/2023 Start: 04-24-2023 BP CONTROLLED (<130/80) BP CONTROLLED (<130/80) [facility] Start: 04-23-2023 Hemoglobin A1c/Hemoglobin.total in Blood HBA1C [facility] Start: 04-14-2023 BP CONTROLLED (<130/80) BP CONTROLLED (<130/80) [facility] Start: 03-18-2023 [facility] Start: 03-17-2023 [facility] Start: 02-25-2023 End: 04-27-2023 Lipid 1996 panel - Serum or Plasma LIPID PANEL BASIC Lab Routine Diabetes mellitus (HCC) Expected: 02/25/2023, Expires: 04/27/2023 [facility] Work Phone: Comment on above: Expected: 02/25/2023, Expires: Start: 02-11-2023 BP CONTROLLED (<130/80) BP CONTROLLED (<130/80) [facility] Start: 01-30-2023 BP CONTROLLED (<130/80) BP CONTROLLED (<130/80) [facility] Start: 01-30-2023 Hepatitis B surface antibody level LDL CHOLESTEROL [facility] Start: 01-15-2023 Covid-19 Vaccine () Covid-19 Vaccine () [facility] Start: 01-15-2023 Influenza vaccination [facility] Start: 11-24-2022 Hemoglobin A1c/Hemoglobin.total in Blood HBA1C [facility] Start: 10-28-2022 End: 12-28-2022 Hepatic function 2000 panel - Serum or Plasma HEPATIC FUNCTION PNL Lab Routine History of rheumatoid arthritis Expected: 10/28/2022, Expires: 12/28/2022 [facility] Work Phone: Comment on above: Expected: 10/28/2022, Expires: Start: 08-15-2022 End: 10-15-2022 ALBUMIN/CREAT RATIO RND UR ALBUMIN/CREAT RATIO RND UR Lab Routine Type II diabetes mellitus with manifestations (HCC) Expected: 08/15/2022, Expires: 10/15/2022 [facility] Work Phone: Comment on above: Expected: 08/15/2022, Expires: 3 Start: 08-15-2022 End: 10-15-2022 Comprehensive metabolic 2000 panel - Serum or Plasma COMP METABOLIC PANEL Lab Routine Type II diabetes mellitus with manifestations (HCC) Expected: 08/15/2022, Expires: 10/15/2022 [facility] Work Phone: Comment on above: Expected: 08/15/2022, Expires: Start: 08-15-2022 End: 10-15-2022 Hemoglobin A1c in Blood HGB A1C Lab Routine Type II diabetes mellitus with manifestations (HCC) Expected: 08/15/2022, Expires: 10/15/2022 [facility] Work Phone: Comment on above: Expected: 08/15/2022, Expires: 3 Start: 08-15-2022 End: 10-15-2022 LIPID PANEL, NONFASTING LIPID PANEL, NONFASTING Lab Routine Type II diabetes mellitus with manifestations (HCC) Expected: 08/15/2022, Expires: 10/15/2022 [facility] Work Phone: Comment on above: Expected: 08/15/2022, Expires: 3 Start: 07-30-2022 Hemoglobin A1c/Hemoglobin.total in Blood HBA1C [facility] Start: 04-24-2022 End: 06-24-2022 Basic metabolic 2000 panel - Serum or Plasma [facility] Work Phone: Comment on above: Expected: 04/24/2022, Expires: 3 Start: 02-27-2022 HEPATITIS B (2 of 3 - 3-dose series) [facility] Start: 02-27-2022 Hepatitis B Vaccine (2 of 3 - 19+ 3-dose series) Hepatitis B Vaccine (2 of 3 - 19+ 3-dose series) [facility] Start: 01-30-2022 End: 04-01-2022 ALBUMIN/CREAT RATIO RND UR ALBUMIN/CREAT RATIO RND UR Lab Routine Type 2 diabetes mellitus with other specified complication, with long-term current use of insulin (HCC) Expected: 01/30/2022, Expires: 04/01/2022 [facility] Work Phone: Comment on above: Expected: 01/30/2022, Expires: 2 Start: 01-30-2022 End: 04-01-2022 CBC W Auto Differential panel - Blood [facility] Work Phone: Comment on above: Expected: 01/30/2022, Expires: 2 Start: 01-30-2022 End: 04-01-2022 Comprehensive metabolic 2000 panel - Serum or Plasma [facility] Work Phone: Comment on above: Expected: 01/30/2022, Expires: 2 Start: 01-30-2022 End: 04-01-2022 Hemoglobin A1c in Blood [facility] Work Phone: Comment on above: Expected: 01/30/2022, Expires: 2 Start: 01-30-2022 End: 04-01-2022 Hepatitis C virus Ab [Presence] in Serum [facility] Work Phone: Comment on above: Expected: 01/30/2022, Expires: 2 Start: 01-30-2022 End: 04-01-2022 HIV 1+2 Ab [Presence] in Serum or Plasma by Immunoassay [facility] Work Phone: Comment on above: Expected: 01/30/2022, Expires: 2 Start: 01-30-2022 End: 04-01-2022 Lipid 1996 panel - Serum or Plasma [facility] Work Phone: Comment on above: Expected: 01/30/2022, Expires: 2 Start: 01-30-2022 End: 04-01-2022 PSA/PROSTSPECAG SCRN [facility] Work Phone: Comment on above: Expected: 01/30/2022, Expires: 2 Start: 01-15-2022 Influenza vaccination INFLUENZA (Season Ended) [facility] Start: 12-30-2021 COVID-19 VACCINE (4 - Booster for Moderna series) COVID-19 VACCINE (4 - Booster for Moderna series) [facility] Start: 12-11-2021 [facility] Work Phone: Start: 12-02-2021 COVID-19 VACCINE (4 - Booster for Moderna series) COVID-19 VACCINE (4 - Booster for Moderna series) [facility] Start: 12-02-2021 COVID-19 VACCINE (4 - Moderna risk series) COVID-19 VACCINE (4 - Moderna risk series) [facility] Start: 2021 PROSTATE CANCER SCREENING DISCUSSION PROSTATE CANCER SCREENING DISCUSSION [facility] Start: 2016 Influenza vaccination LUNG CANCER SCREENING [facility] Start: 2016 Screening for malignant neoplasm of lung Lung Cancer Screening [facility] Start: 2016 SHINGRIX VACCINE (1 of 2) SHINGRIX VACCINE (1 of 2) [facility] Start: 2011 COLOGUARD (FIT-DNA) COLOGUARD (FIT-DNA) [facility] Start: 2011 Colonoscopy COLONOSCOPY [facility] Start: 2011 COLORECTAL CANCER SCREENING COLORECTAL CANCER SCREENING [facility] Start: [address] COLONOGRAPHY [facility] Start: 2011 DIABETES SCREEN DIABETES SCREEN [facility] Start: 2011 FECAL OCCULT BLOOD FECAL OCCULT BLOOD [facility] Start: 2011 Screening for malignant neoplasm of colon [facility] Start: 2011 SIGMOIDOSCOPY SIGMOIDOSCOPY [facility] Start: 2001 LIPID SCREEN LIPID SCREEN [facility] Start: 1985 SHINGRIX VACCINE (1 of 2) SHINGRIX VACCINE (1 of 2) [facility] Start: 1985 Urine microalbumin profile [facility] Start: 1984 ANNUAL PCP TEAM CHRONIC DISEASE VISIT ANNUAL PCP TEAM CHRONIC DISEASE VISIT [facility] Start: 1984 Anxiety Screening Anxiety Screening [facility] Start: 1984 BP Controlled (<130/80) BP Controlled (<130/80) [facility] Start: 1984 Hepatitis B surface antibody level LDL CHOLESTEROL [facility] Start: 1984 HEPATITIS C SCREENING HEPATITIS C SCREENING [facility] Start: 1984 HIV SCREENING HIV SCREENING [facility] Start: 1978 Adult depression screening assessment DEPRESSION SCREENING [facility] Start: 1976 3 comp foot exam completed DIABETIC FOOT EXAM [facility] Start: 1976 Glaucoma screening Dilated Retinal Exam [facility] Start: 1976 Hepatitis B screening URINE ALBUMIN:CREATININE RATIO [facility] Start: 1976 Hepatitis C antibody, confirmatory test DILATED RETINAL EXAM [facility] Start: 1972 PNEUMOCOCCAL (1 - PCV) PNEUMOCOCCAL (1 - PCV) [facility] Start: 1972 Pneumococcal vaccination [facility] Start: 1971 COVID-19 VACCINE (#1) COVID-19 VACCINE (#1) [facility] Start: 1971 Hemoglobin A1c/Hemoglobin.total in Blood HBA1C [facility] Anaerobic microbial culture Anaerobic Culture [facility] Work Phone: Bacteria identified in Wound by Culture ABSCESS AND WOUND CULTURE WITH GRAM STAIN Microbiology Routine Diabetic ulcer of ankle (HCC) 11/11/2022 1:56 PM EDT [facility] [facility] Work Phone: Bacteria identified in Wound by Culture ABSCESS AND WOUND CULTURE WITH GRAM STAIN Microbiology Routine Ulcer of toe of right foot, with fat layer exposed (HCC) Other acute osteomyelitis of right foot (HCC) 03/09/2024 2:42 PM EDT [facility] INFLUENZA VACCINE, AGE 6 MO - 64 YR, QUADRIVALENT (AFLURIA, FLULAVAL, FLUZONE) INFLUENZA VACCINE, AGE 6 MO - 64 YR, QUADRIVALENT (AFLURIA, FLULAVAL, FLUZONE) Immunization/Injection Routine Encounter for immunization Ordered: 02/25/2023 [facility] Work Phone: Comment on above: Ordered: 02/25/2023 End: 01-01-2025 MR Foot - right WO contrast MRI FOOT/TOES WO IVCON RIGHT Radiology STAT Other acute osteomyelitis of right foot (HCC) 1 Occurrences starting 12/03/2023 until 01/01/2025 [facility] Work Phone: Comment on above: 1 Occurrences starting 12/03/2023 until 01/01/2025 Patient Education [facility] Work Phone: Patient referral [facility] Work Phone: PFIZER-BIONTECH COVID-19 BIVALENT BOOSTER VACCINE, AGE 12+ YR PFIZER-BIONTECH COVID-19 BIVALENT BOOSTER VACCINE, AGE 12+ YR Immunization/Injection Routine Encounter for immunization Ordered: 01/30/2022 [facility] Work Phone: Comment on above: Ordered: 01/30/2022 PFIZER-BIONTECH COVID-19 VACCINE (2022- SEASON) AGE 12+ YR PFIZER-BIONTECH COVID-19 VACCINE ( SEASON) AGE 12+ YR Immunization/Injection Routine Encounter for immunization 1 Occurrences starting 02/25/2023 [facility] Work Phone: Comment on above: 1 Occurrences starting 02/25/2023 End: 04-24-2023 Polysomnogram POLYSOMNOGRAM (PSG) Procedures Routine Daytime sleepiness Snoring Essential hypertension Limited mobility Cognitive deficits 1 Occurrences starting 04/24/2022 until 04/24/2023 [facility] Work Phone: Comment on above: 1 Occurrences starting 04/24/2022 until 04/24/2023 VOIDING TRIAL PROTOCOL VOIDING TRIAL PROTOCOL Procedures Routine Retention of urine Ordered: 04/14/2022 [facility] Work Phone: Comment on above: Ordered: 04/14/2022 End: 07-30-2024 XR Foot - right AP and Lateral and oblique XR FOOT GENERAL 3V AP/LAT/OBL RIGHT Radiology Routine Diabetic ulcer of toe associated with diabetes mellitus due to underlying condition, with necrosis of muscle, unspecified laterality (HCC) 1 Occurrences starting 07/01/2023 until 07/30/2024 [facility] Work Phone: Comment on above: 1 Occurrences starting 07/01/2023 until 07/30/2024 XR Foot - right AP and Lateral and oblique XR FOOT GENERAL 3V AP/LAT/OBL RIGHT Radiology Routine Diabetic ulcer of toe associated with diabetes mellitus due to underlying condition, with necrosis of muscle, unspecified laterality (HCC) 07/01/2023 2:[address] [facility] Work Phone: End: 08-13-2024 XR Foot - right AP and Lateral and oblique XR FOOT GENERAL 3V AP/LAT/OBL RIGHT Radiology Routine Diabetic ulcer of toe associated with diabetes mellitus due to underlying condition, with necrosis of muscle, unspecified laterality (HCC) 1 Occurrences starting 07/15/2023 until 08/13/2024 [facility] Work Phone: Comment on above: 1 Occurrences starting 07/15/2023 until 08/13/2024 XR Foot - right AP and Lateral and oblique XR FOOT GENERAL 3V AP/LAT/OBL RIGHT Radiology Routine Diabetic ulcer of toe associated with diabetes mellitus due to underlying condition, with necrosis of muscle, unspecified laterality (HCC) 07/15/2023 2:[address] [facility] Work Phone: XR Foot - right AP and Lateral and oblique XR FOOT GENERAL 3V AP/LAT/OBL RIGHT Radiology Routine Pain in right foot 08/19/2023 10:14 AM EDT [facility] Work Phone: XR Foot - right AP and Lateral and oblique XR FOOT GENERAL 3V AP/LAT/OBL RIGHT Radiology Routine Acute hematogenous osteomyelitis of right foot (HCC) 09/09/2023 1:09 PM [facility] Work Phone: End: 10-08-2024 XR Foot - right AP and Lateral and oblique XR FOOT GENERAL 3V AP/LAT/OBL RIGHT Radiology Routine Acute hematogenous osteomyelitis of right foot (HCC) 1 Occurrences starting 09/09/2023 until 10/08/2024 [facility] Work Phone: Comment on above: 1 Occurrences starting 09/09/2023 until 10/08/2024 XR Foot - right AP and Lateral and oblique XR FOOT GENERAL 3V AP/LAT/OBL RIGHT Radiology Routine Ulcer of toe of right foot, with fat layer exposed (HCC) 12/03/2023 11:25 AM EDT [facility] Work Phone: End: 04-08-2025 XR Foot - right AP and Lateral and oblique XR FOOT GENERAL 3V AP/LAT/OBL RIGHT Radiology Routine Ulcer of toe of right foot, with fat layer exposed (HCC) Other acute osteomyelitis of right foot (HCC) 1 Occurrences starting 03/09/2024 until 04/08/2025 [facility] Work Phone: Comment on above: 1 Occurrences starting 03/09/2024 until 04/08/2025 End: 10-18-2023 XR FOOT GENERAL 3V AP/LAT/OBL LEFT XR FOOT GENERAL 3V AP/LAT/OBL LEFT Radiology Routine Closed nondisplaced fracture of proximal phalanx of lesser toe of left foot, initial encounter 1 Occurrences starting 09/18/2022 until 10/18/2023 [facility] Work Phone: Comment on above: 1 Occurrences starting 09/18/2022 until 10/18/2023 End: 11-23-2024 XR Toes - right 3 Views XR TOE AP/LAT/OBL RIGHT Radiology Routine Diabetic ulcer of toe associated with diabetes mellitus due to underlying condition, with necrosis of muscle, unspecified laterality (HCC) Acute hematogenous osteomyelitis of right foot (HCC) 1 Occurrences starting 10/25/2023 until 11/23/2024 [facility] Work Phone: Comment on above: 1 Occurrences starting 10/25/2023 until 11/23/2024 [facility] Immunizations Immunization Date Immunization Notes Care Provider [facility] 02-18-2024 pneumococcal Conjugate, unspecified formulation Rachel Chery MD Work Phone: [facility] 02-18-2024 influenza, seasonal, injectable Rachel Chery MD Work Phone: [facility] 02-18-2024 pneumococcal conjuga te (PCV20) vaccine, 20 valent (PREVNAR 20) Rachel Chery MD Work Phone: [facility] 01-30-2022 hepatitis B vaccine, adult dosage Mike Candelario PLEATING MACHINE OPERATOR.UNATTENDED GROUND SENSOR SPECIALIST Work Phone: [facility] Work Phone: 01-30-2022 influenza A monovale nt (H5N1), adjuvanted, National stockpile 2012 Mike Candelario PLEATING MACHINE OPERATOR.UNATTENDED GROUND SENSOR SPECIALIST Work Phone: [facility] Work Phone: 01-30-2022 influenza, injectabl e, quadrivalent, contains preservative Mike Candelario PLEATING MACHINE OPERATOR.UNATTENDED GROUND SENSOR SPECIALIST Work Phone: [facility] Work Phone: 01-30-2022 hepatitis B vaccine, unspecified formulation Mike Candelario PLEATING MACHINE OPERATOR.UNATTENDED GROUND SENSOR SPECIALIST Work Phone: [facility] 01-30-2022 influenza virus vaccine, unspecified formulation Rachel Chery MD Work Phone: [facility] 10-07-2021 COVID-19 vaccine, fu ll dose (MODERNA) Mike Candelario PLEATING MACHINE OPERATOR.UNATTENDED GROUND SENSOR SPECIALIST Work Phone: [facility] Work Phone: 08-29-2020 COVID-19 vaccine, fu ll dose (MODERNA) Mike Candelario PLEATING MACHINE OPERATOR.UNATTENDED GROUND SENSOR SPECIALIST Work Phone: [facility] Work Phone: 08-01-2020 COVID-19 vaccine, fu ll dose (MODERNA) Mike Candelario PLEATING MACHINE OPERATOR.UNATTENDED GROUND SENSOR SPECIALIST Work Phone: [facility] Work Phone: 02-17-2017 influenza, seasonal, injectable, preservative free Mike Candelario PLEATING MACHINE OPERATOR.UNATTENDED GROUND SENSOR SPECIALIST Work Phone: [facility] Work Phone: NEGATED: Highlighted row has not occurred!02-25-2023 influenza, injectable, quadrivalent, contains preservative Mike Candelario PLEATING MACHINE OPERATOR.UNATTENDED GROUND SENSOR SPECIALIST Work Phone: [facility] Work Phone: Comment on above: Deferred: Postponed - Angelic Toro NEGATED: Highlighted row has not occurred!02-25-2023 pneumococcal (PCV20) vaccine, 20 valent (PREVNAR 20) Mike Candelario PLEATING MACHINE OPERATOR.UNATTENDED GROUND SENSOR SPECIALIST Work Phone: [facility] Work Phone: Comment on above: Deferred: Postponed NEGATED: Highlighted row has not occurred!10-22-2022 pneumococcal (PCV20) vaccine, 20 valent (PREVNAR 20) Cecilia Parra [facility] Work Phone: [facility] Work Phone: NEGATED: Highlighted row has not occurred!01-30-2022 COVID-19 vaccine, age 12+ yr, bivalent booster (PFIZER-[facility]IONTLonestar Heart) Mike Candelario PLEATING MACHINE OPERATOR.UNATTENDED GROUND SENSOR SPECIALIST Work Phone: [facility] Work Phone: Comment on above: Deferred: Patient Re fused Payers Date Payer Category Payer Medicare (Managed Care) ANALY DICKSON [id number] 2024 Unknown [id number] 2023 Private Health Insurance [facility] MEDIC[facility] [id number] 2023 Self-pay [id number] 2023 Unknown [id number] 2021 Medicare AETNA MEDICARE A ETNA MEDICARE ASSURE HMO D SNP [id number] 2021-Present [phone] [address] [place] [address] Medicare [id number] 2021 Medicare [id number] 2021 Private Health Insurance 101 [id number] 2021 Medicaid [facility] MYC ARE [facility] [id number] 2021-Present [phone] [address] [place] [address] Medicaid [id number] 2021 Unknown [id number] 2019 Medicaid [id number] 1966 Unknown [id number] 1959 Unknown [id number] Unknown [id number] Unknown [id number] Unknown [id number] Unknown [id number] Unknown [id number] Unknown [id number] Unknown [id number] Unknown [id number] Social History Date Type Detail Facility Start: 10-23-2021 End: 03-18-2023 Tobacco smoking status NMIS Tobacco smoking consumption unknown [facility] Start: 1965 Sex Assigned At Not on file C [facility] Start: 09-28-2021 End: 04-14-2022 Exposure to SARS-CoV-2 (event) Not sure [facility] Start: 1965 Sex Assigned At Male [facility] Start: 1981 End: 03-09-2024 Tobacco smoking status NMIS Smokes tobacco daily [facility] Work Phone: Start: 1981 History of tobacco use Cigarette Smo ker [facility] Work Phone: Start: 01-30-2022 End: 02-18-2024 Cigarettes smoked current (pack per day) - Reported 1 [facility] Work Phone: Start: 01-30-2022 End: 03-09-2024 Tobacco use and exposure Smokeless tobacco non-user [facility] Work Phone: Start: 01-30-2022 End: 10-13-2024 Alcohol intake Lifetime non-drinker (finding) [facility] Start: 11-24-2022 End: 02-18-2024 Tobacco use panel [facility] Work Phone: Adult Depression Screening Assessment 6 [facility] Work Phone: Has the [employer] or [employer] threatened to shut off services in your home in past 12Mo No [facility] (I/We) worried fred er (my/our) food would run out before (I/we) got money to buy more. Never true [facility] Medical Equipment Procedure Code Equipment Code Equipment Original Text Equipment Identifier Dates [id number], [id number], [id number], [id number], [id number], [id number], [id number] Start: 01-26-2022 End: 06-22-2023 Comment on above: Inject 1 Each subcut aneously as directed. Use as directed with insulin pen Test blood sugar(s) 1 times daily and as needed. Dx: Type 2 DM - Controlled E11.9 Insulin: No Test blood sugar(s) 4 times daily and PRN. Dx: Type 2 DM - Controlled E11.9 Insulin: Yes Inject 1 Each subcut aneously every 24 hours. Give with each insulin administration. Functional Status Date Assessment Result Facility 03-27-2024 Are you deaf, or do you have serious difficulty hearing No 03/27/2024 9:31 AM Rosalba Marie, APRIL [facility] 03-27-2024 Are you blind, or do you have serious difficulty seeing, even when wearing glasses No 03/27/2024 9:31 AM Rosalba Marie, APRIL No [facility] 03-27-2024 Do you have serious difficulty walking or climbing stairs Yes 03/27/2024 9:31 AM Rosalba Marie RN Yes [facility] 03-27-2024 Do you have difficul ty dressing or bathing No 03/27/2024 9:31 AM Rosalba Marie RN No [facility] 03-27-2024 Because of a physica l, mental, or emotional condition, do you have difficulty doing errands alone such as visiting a physician's office or shopping No 03/27/2024 9:31 AM Rosalba Marie RN No [facility] Mental Status Date Assessment Result Facility 03-27-2024 Because of a physica l, mental, or emotional condition, do you have serious difficulty concentrating, remembering, or making decisions No 03/27/2024 9:31 AM Rosalba Marie RN No [facility] 04-10-2022 Cognitive function Level Of Cons ciousness Awake [facility] Work Phone: Clinical Notes 10-17-2021 to 11-13-2024 Hieu Munoz MD - 11/13/2024 1:30 PM EDTTelephone Encounter - Fariba Corrigan LPN - 10/18/2024 4:44 PM EDTTelephone Encounter - Fariba Corrigan LPN - 10/18/2024 4:44 PM EDTPatient Instructions Note Date & Type Note Facility 11-13-2024 Note HNO ID: [id number] Author: HIEU MUNOZ MD Service: ? Author Type: Physician Type: Progress Notes Filed: 11/13/2024 14:12 Note Text: [facility] Date: November 13, 2024 - 1:30 PM Berta Jaramillo is seen in consultation requested by Mike Candelario for an opinion regarding bilateral leg pain. My final recommendations will be communicated back to the requesting physician by way of shared medical record or via US mail. Mushtaq Chief Complaint: neuropathy pain SUBJECTIVE: Berta Jaramillo is a 59-year-old male with a history of diabetes mellitus, presenting for evaluation of worsening bilateral leg pain. Berta reports experiencing worsening bilateral leg pain, described as a burning, pining sensation that he attributes to nerve pain. The pain is severe and has been progressively worsening since he was [age] years old. He also reports phantom pain in the area of a recently amputated toe, describing it as tearing me up. 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 He reports significant neuropathy, stating, I can hardly feel my feet. He lost a toe earlier this year due to complications from diabetes and is followed by the wound center, though he notes it has been a while since his last visit. Berta is currently taking Lyrica 225 mg, which he reports provides some relief. He previously tried gabapentin in his 20s at a high dose without benefit, leading to the switch to Lyrica, which he has been taking for many years. Berta reports difficulty sleeping due to the pain, particularly at night when he elevates his feet and removes his socks. He describes a sensation of his bones feeling tight and round, which he associates with increased pain. He does not endorse any other symptoms. The pain is described as tayler, burning, numbness, tingling, and shooting. The pain intensity is rated 5. The pain is exacerbated by prolonged sitting and relieved by unknown and no known factors. Symptoms interfere with physical activity and sleeping. 100% pain in spine vs 0% (radiating) pain in the extremity. Litigation: No. Worker's Compensation: No. Prior pain treatment has included: Medication(s): Pregabalin, Tylenol Physical therapy: For his legs. This was completed about 2 years ago. Injection(s): Multiple injection with Dr. Rosa in [place] with no relief. Patient Entered Questionnaires PROMIS Score Percentiles Percentiles provide an indication of how the patient's score ranks in relation to the general population. Higher percentile rankings indicate better function/quality of life. 50th percentile is the average of the general population and indicates half of respondents had a worse score. > 31st percentile is within normal limits or better * < 31st percentile is at least ? SD worse than population, which may be clinically relevant < 16th percentile is at least 1 SD worse than population and warrants attention ALLERGIES No Known Allergies Current Medications: Pain medications reviewed and reconciled in the medication list: Yes. Current Outpatient Medications Medication Sig baclofen 10 mg tablet Take 1 tablet by mouth once daily. ferrous sulfate 325 mg (65 mg iron) tablet Take 1 tablet by mouth once daily. polyethylene glycol 3350 17 gram/dose powder Drink a mix of 1 scoop in 8oz of water/beverage once daily as needed for constipation. Compression Socks, Large misc Knee-high compression socks with toes, Jobst Sensi socks 8 to 15 mmHg or similar covered by his insurance. Disp 3 pair, 3 refills pregabalin (LYRICA) 225 mg capsule Take 1 capsule by mouth three times a day for 180 days. insulin glargine (BASAGLAR KWIKPEN U-100 INSULIN) 100 unit/mL (3 mL) Inject 10 Units subcutaneously daily at bedtime. Will adjust insulin orders as needed and send new RX when dose adjusted amitriptyline (ELAVIL) 50 mg tablet Take 1 tablet by mouth daily at bedtime. pyridoxine, vitamin B6, (VITAMIN B-6) 50 mg tablet Take 1 tablet by mouth once daily. dextrose 40 % gel Take 15 g by mouth as needed. (Patient taking differently: Take 15 g by mouth as needed (Hypogylcemia (below 30)).) zinc sulfate 220 mg (50 mg zinc) capsule Take 1 capsule by mouth once daily for 7 doses. acetaminophen (TYLENOL) 500 mg tablet Take 2 tablets by mouth every 8 hours as needed for pain. sertraline (ZOLOFT) 100 mg tablet Take 100 mg by mouth daily at bedtime. atorvastatin (LIPITOR) 80 mg tablet Take 1 tablet by mouth once daily. lisinopril (ZESTRIL) 10 mg tablet Take 1 tablet by mouth once daily. metoprolol tartrate, short acting, (LOPRESSOR) 25 mg tablet Take 1 tablet by mouth two times a day. pantoprazole DR (PROTONIX) 40 mg tablet Take 1 tablet by mouth once daily. busPIRone (BUSPAR) 15 mg tablet Take 1 tablet by mouth three times a day. ezetimibe (ZETIA) 10 mg tablet Take 1 tablet by mo (more content not included)... [facility] 11-13-2024 History of Present illness Narrative [facility] Pain Management Department Date: November 13, 2024 - 1:30 PM Berta Jaramillo is seen in consultation requested by Mike Candelario for an opinion regarding bilateral leg pain. My final recommendations will be communicated back to the requesting physician by way of shared medical record or via US mail. Mushtaq Chief Complaint: neuropathy pain SUBJECTIVE: Berta Jaramillo is a 59-year-old male with a history of diabetes mellitus, presenting for evaluation of worsening bilateral leg pain. Berta reports experiencing worsening bilateral leg pain, described as a burning, pining sensation that he attributes to nerve pain. The pain is severe and has been progressively worsening since he was [age] years old. He also reports phantom pain in the area of a recently amputated toe, describing it as tearing me up. 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 He reports significant neuropathy, stating, I can hardly feel my feet. He lost a toe earlier this year due to complications from diabetes and is followed by the wound center, though he notes it has been a while since his last visit. Berta is currently taking Lyrica 225 mg, which he reports provides some relief. He previously tried gabapentin in his 20s at a high dose without benefit, leading to the switch to Lyrica, which he has been taking for many years. Berta reports difficulty sleeping due to the pain, particularly at night when he elevates his feet and removes his socks. He describes a sensation of his bones feeling tight and round, which he associates with increased pain. He does not endorse any other symptoms. The pain is described as tayler, burning, numbness, tingling, and shooting. The pain intensity is rated 5. The pain is exacerbated by prolonged sitting and relieved by unknown and no known factors. Symptoms interfere with physical activity and sleeping. 100% pain in spine vs 0% (radiating) pain in the extremity. Litigation: No. Worker's Compensation: No. Prior pain treatment has included: Medication(s): Pregabalin, Tylenol Physical therapy: For his legs. This was completed about 2 years ago. Injection(s): Multiple injection with Dr. Rosa in [place] with no relief. Patient Entered Questionnaires PROMIS Score Percentiles Percentiles provide an indication of how the patient's score ranks in relation to the general population. Higher percentile rankings indicate better function/quality of life. 50th percentile is the average of the general population and indicates half of respondents had a worse score. > 31st percentile is within normal limits or better * < 31st percentile is at least SD worse than population, which may be clinically relevant < 16th percentile is at least 1 SD worse than population and warrants attention ALLERGIES No Known Allergies Current Medications: Pain medications reviewed and reconciled in the medication list: Yes. Current Outpatient Medications Medication Sig baclofen 10 mg tablet Take 1 tablet by mouth once daily. ferrous sulfate 325 mg (65 mg iron) tablet Take 1 tablet by mouth once daily. polyethylene glycol 3350 17 gram/dose powder Drink a mix of 1 scoop in 8oz of water/beverage once daily as needed for constipation. Compression Socks, Large misc Knee-high compression socks with toes, Jobst Sensi socks 8 to 15 mmHg or similar covered by his insurance. Disp 3 pair, 3 refills pregabalin (LYRICA) 225 mg capsule Take 1 capsule by mouth three times a day for 180 days. insulin glargine (BASAGLAR KWIKPEN U-100 INSULIN) 100 unit/mL (3 mL) Inject 10 Units subcutaneously daily at bedtime. Will adjust insulin orders as needed and send new RX when dose adjusted amitriptyline (ELAVIL) 50 mg tablet Take 1 tablet by mouth daily at bedtime. pyridoxine, vitamin B6, (VITAMIN B-6) 50 mg tablet Take 1 tablet by mouth once daily. dextrose 40 % gel Take 15 g by mouth as needed. (Patient taking differently: Take 15 g by mouth as needed (Hypogylcemia (below 30)).) zinc sulfate 220 mg (50 mg zinc) capsule Take 1 capsule by mouth once daily for 7 doses. acetaminophen (TYLENOL) 500 mg tablet Take 2 tablets by mouth every 8 hours as needed for pain. sertraline (ZOLOFT) 100 mg tablet Take 100 mg by mouth daily at bedtime. atorvastatin (LIPITOR) 80 mg tablet Take 1 tablet by mouth once daily. lisinopril (ZESTRIL) 10 mg tablet Take 1 tablet by mouth once daily. metoprolol tartrate, short acting, (LOPRESSOR) 25 mg tablet Take 1 tablet by mouth two times a day. pantoprazole DR (PROTONIX) 40 mg tablet Take 1 tablet by mouth once daily. busPIRone (BUSPAR) 15 mg tablet Take 1 tablet by mouth three times a day. ezetimibe (ZETIA) 10 mg tablet Take 1 tablet by mouth once daily. Diaper,Brief, Adult,Disposable Change at least twice daily amLODIPine (NORVASC) 5 mg tablet Take 1 tablet by mouth once daily. May also take 1 tablet once daily as needed (For BP over 150/95). (Patient taking differently: Take 1 tablet by mouth once daily. ) metFORMIN (GLUCOPHAGE) 1,000 mg tablet Take 1,000 mg by mouth two times a day with meals. insulin aspart (NOVOLOG FLEXPEN U-100 INSULIN SUBCUTANEOUS) Inject subcutaneously daily at bedtime. 8 units in the morning, 4 units at lunch, 2 units at bedtime multivit,calc,mins/iron/folic (THERA-M ORAL) Take 1 tablet by mouth daily at 6 am. loperamide HCl (IMODIUM A-D) 2 mg tab Take 2 mg by mouth every 6 hours as needed (loose stool). Patient should start on March 28, 2024. dulaglutide (TRULICITY) 1.5 mg/0.5 mL pen injector Inject 1.5 mg subcutaneously one time a week. insulin aspart U-100 (NOVOLOG FLEXPEN U-100 INSULIN) 100 unit/mL (3 mL) USE SLIDING SCALE ONLY. Sliding scale 150=0, 151-200-1 units, 201-250=2 units, 251-300=3 units, 301-350=4 units, 351-400=5 units based on pre meal blood sugar only as needed. fluticasone (FLONASE) 50 mcg/actuation nasal spray Use 2 Sprays in each nostril once daily as needed for cold/allergy symptoms. Rinse mouth after use. DUPIXENT SYRINGE 300 mg/2 mL injection Inject 300 mg subcutaneously every 2 weeks. ascorbic acid, vitamin C, (VITAMIN C) 500 mg tablet Take 1 tablet by mouth once daily. aspirin 81 mg cap Take 1 Each by mouth once daily. Insulin Celeste, Disposable, (PEN NEEDLE) 32 gauge x 5/32 Inject 1 Each subcutaneously every 24 hours. Give with each insulin administration. blood sugar diagnostic (BLOOD GLUCOSE TEST) test strip Test blood sugar(s) 4 times daily and PRN. Dx: Type 2 DM - Controlled E11.9 Insulin: Yes Lancets lancets Test blood sugar(s) 4 times daily and prn. Dx: Type 2 DM - Controlled E11.9 Insulin: Yes alcohol swabs Apply 1 Each to affected area four times daily. Blood-Glucose Meter 1 Each four times daily. Cholecalciferol, Vitamin D3, 125 mcg (5,000 unit) cap Take 1 tab daily with food. (Patient taking differently: Take 5,000 Units by mouth once daily. Take 1 tab daily with food.) melatonin 10 mg cap Take 1 capsule by mouth daily at bedtime. Blood-Glucose Meter,Continuous (DEXCOM G7 COTTON WEIGHER) [facility] Dispense one chief innovation officer kit. USE FOR CONTINUOUS GLUCOSE MONITORING. MULTIPLE INSULIN INJECTIONS. E11.9 Blood-Glucose Sensor (DEXCOM G7 SENSOR) kimberly CHANGE SENSOR EVERY 10 days. USE FOR CONTINUOUS GLUCOSE MONITORING. MULTIPLE INSULIN INJECTIONS. E11.9 cyanocobalamin (VITAMIN B-12) 1,000 mcg tab Take 1 tablet by mouth once daily. ondansetron orally disintegrating (ZOFRAN ODT) 4 mg disintegrating tablet Take 4 mg by mouth every 8 hours as needed for nausea/vomiting. tamsulosin (FLOMAX) 0.4 mg Take 2 capsules by mouth once daily. sucralfate (CARAFATE) 1 gram tablet Take 1 tablet by mouth four times daily. leflunomide (ARAVA) 10 mg tablet Take 1 tablet by mouth once daily. pen needle, diabetic, safety 31 gauge x 5/16 ndle Use as directed with insulin pen Blood-Glucose Transmitter (DEXCOM G6 TRANSMITTER) kimberly Apply new transmitter every 90 days. Clean transmitter with an alcohol swab with each sensor change. meclizine (ANTIVERT) 25 mg tab Take 1 tablet by mouth every 6 hours as needed (dizziness). albuterol HFA (PROVENTIL HFA, VENTOLIN HFA) 90 mcg/actuation inhaler Inhale 2 Puffs as instructed every 4 hours as needed for wheezing/shortness of breath. Lancets lancets Test blood sugar(s) 1 times daily and as needed. Dx: Type 2 DM - Controlled E11.9 Insulin: No No current facility-administered medications for this visit. PAST MEDICAL HISTORY Diagnosis Date Atopic eczema Benign prostatic hyperplasia with urinary hesitancy Chronic anemia Depression Depression Diabetes mellitus (HCC) Essential hypertension Gastroesophageal reflux disease without esophagitis Generalized anxiety disorder Hypercholesterolemia Neuropathy Osteomyelitis of right foot (HCC) Tobacco use PAST SURGICAL HISTORY Procedure Laterality Date KNEE SURGERY HX Right FAMILY HISTORY Problem Relation Age of Onset Diabetes Mother Diabetes Father Hypertension Father Diabetes Paternal Grandmother Diabetes Paternal Grandfather Anesthesia Problems No Family History Social History: Alcohol Use: Never Tobacco Use: Types: Cigarettes Drug Use: Never Employer And Job Title: None on file Years Of Education Completed: Not specified Marital Status: Single REVIEW OF SYSTEMS: Constitutional: (-) Fever (-) Night Sweats (-) Weight Gain (-) Weight Loss (-) Fatigue Cardiovascular: (-) Chest Pain (-) Palpitations (+) Lightheadedness (+) Swelling of Ankles (-) Hx Heart Surgery Respiratory: (-) Shortness of Breath (-) Cough (+) Wheezing (+) Snoring Gastrointestinal: (-) Incontinence (+) Abdominal Pain (+) Diarrhea (+) Constipation (+) Nausea/Vomiting (-) Heart Burn Endocrine: (-) Thyroid Disorder (+) Diabetes Hematologic: (+) Prolonged Bleeding (+) Easy Bruising Genitourinary: (+) Incontinence (+) Frequency (+) Urinary Urgency Skin: (-) Rashes (-) Itching (+) Other Lesions Neurologic: (-) Headache (-) Double Vision (-) Confusion (-) Paralysis (-) Vertigo (-) Syncope Psychiatric: (+) Depression (+) Anxiety OARRS Report reviewed: Yes Narcotic Agreement reviewed and signed?: N/A Baseline Urine Toxicology obtained: N/A Urine Panel: No results found for: UQCANN, UQBNZL, SIA5QNI, UQAMPH, UQMAMP, UQBUPRE, UQNORBUP, UQMTHD, UQEDDP, UQTRAM, UQDTRM, UQFNTL, UQNFTL, UQCODE, UQMORP, UQDCDN, UQHCOD, UQOXYC, UQHMOR, UQOXYM, UQCREA, UQPH, UQSPGR, UQOXID, UQSPQ The pain panel was N/A PHYSICAL EXAM: Performed in conjunction with observation. The patient was alert and oriented x3. The patient was in no acute distress. Lungs: Clear, negative for dyspnea or distress. CVR: Negative for SOB or peripheral edema. The patient arrives in a motorized wheelchair. He states he is able to ambulate but does not due to pain in his both feet. Medical record and diagnostic tests were reviewed for today's visit. ASSESSMENT/PLAN: 1. Type 2 diabetes mellitus with hyperglycemia, with long-term current use of insulin (HCC) (E11.65) - Long-standing history of diabetes, likely juvenile onset. - Recent A1c is 5.2%, 2. Pain in both feet (M79.671) 3. Phantom limb syndrome with pain (HCC) (G54.6) - Neuropathic pain in both feet, described as burning and pining, worsening over time. - Phantom pain in amputated toe. - Currently on Lyrica 225 mg, which provides some relief. - Discussed spinal cord stimulator as a potential treatment option; will consult with Tay Candelario and refer to a specialist within the [facility] system for evaluation and trial. - Discussed chronic pain rehab program. 4. Foot spasms (R25.2) - Experiencing spasms, particularly at night, causing significant discomfort and sleep disturbances. - Prescribed Baclofen 10 mg to be taken in the evening to alleviate spasms and improve sleep quality. The above plan and management options were discussed with patient. The patient is in agreement with the above and verbalized understanding. I have discussed and confirmed the above treatment plan with the patient and I have reviewed the nurses notes and I am aware of the family/social history. I have confirmed ROS findings. Hieu Munoz MD 1. This document has been created with the use of voice recognition technology. It may contain inaccuracies: (e.g. misspellings, inaccurate syntax or word sense) that have escaped review. 2. The nurse practitioner, nursing staff and medical assistants are a major part of YOUR TREATMENT TEAM and will be handling your phone calls and inquiries, if any. Unless explicitly told otherwise at the time of your office visit, your study results and ensuing treatment plans will be discussed during your follow-up appointment. If you do not have a follow-up appointment and wish to discuss any issues, please set up an appointment. 3. All of the office notes, study results, and other pertinent documentation generated as part of your evaluation will be available to you and to your Primary Care Physician (PCP). Use of this material to complete such forms will be at the discretion of your PCP/referring physician. November 13, 2024 cc: Mike Candelario [address] [facility] [place] [id number] Results of consultation to be transmitted via electronic medical record for those providers who practice within [facility] or with access to [employer] via [facility] Connect, or via letter. documented in this encounter [facility] 10-18-2024 Telephone encounter Note Phoned patient went over results, notes and my chart message from Mike Candelario NP with understanding. Aware rx x 2 sent to the pharmacy. [facility] 10-18-2024 Miscellaneous Notes Phoned patient went over results, notes and my chart message from Mike Candelario NP with understanding. Aware rx x 2 sent to the pharmacy. ----- Message from Mike Godfrey APRN.UNATTENDED GROUND SENSOR SPECIALIST sent at 10/17/2024 4:36 PM EDT ----- Endocrine lab work shows diabetes in good control, A1c at 5.7%, improved from previous. LDL is, controlled cholesterol. Metabolic panel shows multiple normalities. Abnormalities, liver enzymes trending upward abnormalities with liver enzymes trending upward, low calcium, protein and albumin. Potassium is increased. Plese let him know that he Is anemic, has dropped 2 g since last seen. EGD 03/2024 Dr. Ca. Hemoglobin (g/dL) Date Value 10/13/2024 8.5 Hematocrit (%) Date Value 10/13/2024 24.7 WBC (k/uL) Date Value 10/13/2024 5.57 Endocrine lab work shows diabetes in good control, A1c at 5.7%, improved from previous. LDL is, controlled cholesterol. Metabolic panel shows multiple normalities. Abnormalities, liver enzymes trending upward abnormalities with liver enzymes trending upward, low calcium, protein and albumin. Potassium is increased. Plese let him know that he Is anemic, has dropped 2 g since last seen. EGD 03/2024 Dr. Ca. Hemoglobin (g/dL) Date Value 10/13/2024 8.5 Hematocrit (%) Date Value 10/13/2024 24.7 WBC (k/uL) Date Value 10/13/2024 5.57 documented in this encounter [facility] 10-18-2024 Telephone encounter Note ----- Message from Mike Godfrey APRN.UNATTENDED GROUND SENSOR SPECIALIST sent at 10/17/2024 4:36 PM EDT ----- Endocrine lab work shows diabetes in good control, A1c at 5.7%, improved from previous. LDL is, controlled cholesterol. Metabolic panel shows multiple normalities. Abnormalities, liver enzymes trending upward abnormalities with liver enzymes trending upward, low calcium, protein and albumin. Potassium is increased. Plese let him know that he Is anemic, has dropped 2 g since last seen. EGD 03/2024 Dr. Ca. Hemoglobin (g/dL) Date Value 10/13/2024 8.5 Hematocrit (%) Date Value 10/13/2024 24.7 WBC (k/uL) Date Value 10/13/2024 5.57 [facility] 10-17-2024 Progress note Formatting of t his note might be different from the original. Endocrine lab work shows diabetes in good control, A1c at 5.7%, improved from previous. LDL is, controlled cholesterol. Metabolic panel shows multiple normalities. Abnormalities, liver enzymes trending upward abnormalities with liver enzymes trending upward, low calcium, protein and albumin. Potassium is increased. Plese let him know that he Is anemic, has dropped 2 g since last seen. EGD 03/2024 Dr. Ca. Hemoglobin (g/dL) Date Value 10/13/2024 8.5 Hematocrit (%) Date Value 10/13/2024 24.7 WBC (k/uL) Date Value 10/13/2024 5.57 [facility] 10-13-2024 Note Addended by: MIKE CANDELARIO on: 10/13/2024 01:30 PM Modules accepted: Orders [facility] 10-13-2024 Miscellaneous Notes Addended by: MIKE CANDELARIO on: 10/13/2024 01:30 PM Modules accepted: Orders documented in this encounter [facility] 10-13-2024 Instructions Mike Candelario APRN.CNS - 10/13/2024 1:17 PM EDT - Wear compression socks during the day when you re sitting or standing to help improve blood flow and reduce dizziness. - Aim for about 64 ounces of fluids each day, replacing some of your coffee with water to stay better hydrated. - When moving from sitting or lying down to standing, pause upright and count to 10 before you change position. - Have basic lab work drawn today on your way out to check for anemia and other potential causes of your dizziness. - A referral to pain management has been placed for evaluation of your foot neuropathy; the pain management clinic will contact you to schedule an appointment. documented in this encounter [facility] 10-13-2024 Note HNO ID: [id number] Author: MIKE CANDELARIO APRN.CNS Service: ? Author Type: Nurse Specialist Type: Progress Notes Filed: 10/13/2024 13:30 Note Text: SUBJECTIVE: Dilated Retinal Exam Never done DTaP,Tdap,Td Vaccine(1 - Tdap) Never done Shingrix Vaccine(1 of 2) Never done Colorectal Cancer Screening Never done Lung Cancer Screening Never done Hepatitis B Vaccine(2 of 3 - 19+ 3-dose series) due on 02/27/2022 Diabetic Foot Exam due on 11/12/2023 Urine Albumin:Creatinine Ratio due on 05/19/2024 HbA1C due on 09/19/2024 HPI Berta Jaramillo is a 59 year old male. PMH significant for ACTIVE PROBLEM LIST Neuropathy Essential Hypertension Type 2 Diabetes Mellitus, With Long-Term Current Use of Insulin (Hcc) Depression, Recurrent Atopic Eczema Rheumatoid Arthritis, Involving Unspecified Site, Unspecified Whether Rheumatoid Factor Present (Hcc) Decubitus Ulcer of Left Buttock, Stage 3 (Hcc) Gastroesophageal Reflux Disease Without Esophagitis Hypercholesterolemia Benign Prostatic Hyperplasia With Urinary Hesitancy Nicotine use disorder, F17.2 Obesity, Class I, Bmi 30-34.9 Iron Deficiency Anemia Anxiety Status Post Amputation of Right Great Toe (Hcc) Vitamin B6 Deficiency (Non Anemic) Dizziness: - Describes dizziness as a sensation of pressure in the head, similar to being on a roller coaster, with ears feeling like they want to pop. - Symptoms occur primarily with positional changes, such as standing up from a seated or lying position. - Symptoms are severe enough to prompt Berta to sit back down immediately. - Spends most of the day sitting with legs down; elevates feet slightly in a chair and more in bed. - Wears compression socks at night but not during the day. - Consumes four cups of coffee daily, with minimal water intake. - Eats one meal per day, usually in the evening, with no snacks during the day. Anemia: - History of anemia; was scheduled for blood transfusions in March and May but missed the May appointment. - Uncertain about how to reschedule the missed appointment. Foot Pain: - Reports pain in the foot without a toe, describing it as feeling like it has a toe on it. - Currently taking Lyrica for pain management. - Previously discontinued pain medication abruptly, leading to significant discomfort. - Expresses interest in seeing a film painter for foot pain, specifically requesting non-strong medication to take off some of the edge. - Has had previous back injections for neuropathy, which were not effective. ROS Constitutional: (+) decreased appetite Head: (+) head pressure Ears/Nose/Mouth/Throat: (+) ear pressure Musculoskeletal: (+) foot pain, (+) cold sensation in foot Neurological: (+) dizziness Patient's last HgA1C was Hemoglobin A1C (%) Date Value 03/22/2024 7.1 09/13/2023 6.7 Hemoglobin A1C (POCT) (%) Date Value 11/10/2023 6.9 ) Hyperlipidemia. Mr. Jaramillo reports doing well on current therapy . His most recent lipid panels are: Cholesterol, Total (mg/dL) Date Value 01/30/2022 72 Total Cholesterol, Nonfasting (mg/dL) Date Value 05/25/2024 72 HDL Cholesterol (mg/dL) Date Value 01/30/2022 26 HDL Cholesterol, Nonfasting (mg/dL) Date Value 05/25/2024 28 LDL Cholesterol, Calculated (mg/dL) Date Value 01/30/2022 20 LDL Cholesterol Calculated, Nonfasting (mg/dL) Date Value 05/25/2024 21 Triglyceride (mg/dL) Date Value 01/30/2022 129 Triglycerides, Nonfasting (mg/dL) Date Value 05/25/2024 114 HTN: Without report of headache, chest pain, palpitations, dyspnea, peripheral edema, orthopnea, fatigue, and PND. Last 14 Encounter BP Readings: Date: BP: 05/25/2024 111/68 04/14/2024 122/70 04/10/2024 118/70 03/30/2024 120/80 03/29/2024 112/64 03/28/2024 104/58 03/24/2024 121/77 03/24/2024 111/70 03/22/2024 114/63 02/18/2024 107/64 11/23/2023 94/56[Using BP Monitor[ 09/13/2023 122/68 06/16/2023 146/72 06/07/2023 101/60 GERD: no current complaints EGD 03/24/2024 Dr. Kumar Impression: - Normal duodenal bulb, first portion of the duodenum and second portion of the duodenum. Biopsied. 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 Treated with argon plasma coagulation (APC). - Benign-appearing esophageal stenosis. Dilated. Recommendation: - Await pathology results. - NPO for scheduled surgery. - Continue present medications. - Perform a colonoscopy at appointment to be scheduled. Review of Systems Constitutional: Negative. Musculoskeletal: Positive for arthralgias, back pain and gait problem. Neurological: Positive for numbness. Objective BP 101/61 Pulse 87 Resp 16 Wt 99.2 kg (218 lb 11.1 oz) BMI 32.30 kg/m? Physical Exam Vitals and nursing note reviewed. Constitutional: Appearance: Normal appearance. HENT: Head: Normocephalic and atraumatic. Mouth/Throat: Lips: [place]. Mouth: (more content not included)... [facility] 10-13-2024 History of Present illness Narrative SUBJECTIVE: Dilated Retinal Exam Never done DTaP,Tdap,Td Vaccine(1 - Tdap) Never done Shingrix Vaccine(1 of 2) Never done Colorectal Cancer Screening Never done Lung Cancer Screening Never done Hepatitis B Vaccine(2 of 3 - 19+ 3-dose series) due on 02/27/2022 Diabetic Foot Exam due on 11/12/2023 Urine Albumin:Creatinine Ratio due on 05/19/2024 HbA1C due on 09/19/2024 HPI Berta Jaramillo is a 59 year old male. PMH significant for ACTIVE PROBLEM LIST Neuropathy Essential Hypertension Type 2 Diabetes Mellitus, With Long-Term Current Use of Insulin (Hcc) Depression, Recurrent Atopic Eczema Rheumatoid Arthritis, Involving Unspecified Site, Unspecified Whether Rheumatoid Factor Present (Hcc) Decubitus Ulcer of Left Buttock, Stage 3 (Hcc) Gastroesophageal Reflux Disease Without Esophagitis Hypercholesterolemia Benign Prostatic Hyperplasia With Urinary Hesitancy Nicotine use disorder, F17.2 Obesity, Class I, Bmi 30-34.9 Iron Deficiency Anemia Anxiety Status Post Amputation of Right Great Toe (Hcc) Vitamin B6 Deficiency (Non Anemic) Dizziness: - Describes dizziness as a sensation of pressure in the head, similar to being on a roller coaster, with ears feeling like they want to pop. - Symptoms occur primarily with positional changes, such as standing up from a seated or lying position. - Symptoms are severe enough to prompt Berta to sit back down immediately. - Spends most of the day sitting with legs down; elevates feet slightly in a chair and more in bed. - Wears compression socks at night but not during the day. - Consumes four cups of coffee daily, with minimal water intake. - Eats one meal per day, usually in the evening, with no snacks during the day. Anemia: - History of anemia; was scheduled for blood transfusions in March and May but missed the May appointment. - Uncertain about how to reschedule the missed appointment. Foot Pain: - Reports pain in the foot without a toe, describing it as feeling like it has a toe on it. - Currently taking Lyrica for pain management. - Previously discontinued pain medication abruptly, leading to significant discomfort. - Expresses interest in seeing a film painter for foot pain, specifically requesting non-strong medication to take off some of the edge. - Has had previous back injections for neuropathy, which were not effective. ROS Constitutional: (+) decreased appetite Head: (+) head pressure Ears/Nose/Mouth/Throat: (+) ear pressure Musculoskeletal: (+) foot pain, (+) cold sensation in foot Neurological: (+) dizziness Patient's last HgA1C was Hemoglobin A1C (%) Date Value 03/22/2024 7.1 09/13/2023 6.7 Hemoglobin A1C (POCT) (%) Date Value 11/10/2023 6.9 ) Hyperlipidemia. Mr. Jaramillo reports doing well on current therapy . His most recent lipid panels are: Cholesterol, Total (mg/dL) Date Value 01/30/2022 72 Total Cholesterol, Nonfasting (mg/dL) Date Value 05/25/2024 72 HDL Cholesterol (mg/dL) Date Value 01/30/2022 26 HDL Cholesterol, Nonfasting (mg/dL) Date Value 05/25/2024 28 LDL Cholesterol, Calculated (mg/dL) Date Value 01/30/2022 20 LDL Cholesterol Calculated, Nonfasting (mg/dL) Date Value 05/25/2024 21 Triglyceride (mg/dL) Date Value 01/30/2022 129 Triglycerides, Nonfasting (mg/dL) Date Value 05/25/2024 114 HTN: Without report of headache, chest pain, palpitations, dyspnea, peripheral edema, orthopnea, fatigue, and PND. Last 14 Encounter BP Readings: Date: BP: 05/25/2024 111/68 04/14/2024 122/70 04/10/2024 118/70 03/30/2024 120/80 03/29/2024 112/64 03/28/2024 104/58 03/24/2024 121/77 03/24/2024 111/70 03/22/2024 114/63 02/18/2024 107/64 11/23/2023 94/56[Using BP Monitor[ 09/13/2023 122/68 06/16/2023 146/72 06/07/2023 101/60 GERD: no current complaints EGD 03/24/2024 Dr. Kumar Impression: - Normal duodenal bulb, first portion of the duodenum and second portion of the duodenum. Biopsied. 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 Treated with argon plasma coagulation (APC). - Benign-appearing esophageal stenosis. Dilated. Recommendation: - Await pathology results. - NPO for scheduled surgery. - Continue present medications. - Perform a colonoscopy at appointment to be scheduled. Review of Systems Constitutional: Negative. Musculoskeletal: Positive for arthralgias, back pain and gait problem. Neurological: Positive for numbness. Objective BP 101/61 Pulse 87 Resp 16 Wt 99.2 kg (218 lb 11.1 oz) BMI 32.30 kg/m Physical Exam Vitals and nursing note reviewed. Constitutional: Appearance: Normal appearance. HENT: Head: Normocephalic and atraumatic. Mouth/Throat: Lips: [place]. Mouth: Mucous membranes are moist. Dentition: Dental caries present. Pharynx: Oropharynx is clear. Tonsils: No tonsillar exudate. Comments: multiple tooth loss Eyes: Conjunctiva/sclera: Conjunctivae normal. Neck: Thyroid: No thyromegaly. Vascular: Normal carotid pulses. No JVD. Cardiovascular: Rate and Rhythm: Normal rate and regular rhythm. Heart sounds: Normal heart sounds. Pulmonary: Effort: Pulmonary effort is normal. Breath sounds: Normal breath sounds. Abdominal: General: Bowel sounds are normal. Palpations: Abdomen is soft. Feet: Comments: Nonpalpable DP right foot. Foot is warm. Skin: General: Skin is warm and dry. Neurological: General: No focal deficit present. Mental Status: He is alert. ALLERGIES No Known Allergies Medications pregabalin (LYRICA) 225 mg capsule Take 1 capsule by mouth three times a day for 180 days. ferrous sulfate 325 mg (65 mg iron) tablet Take 1 tablet by mouth every other day. insulin glargine (BASAGLAR KWIKPEN U-100 INSULIN) 100 unit/mL (3 mL) Inject 10 Units subcutaneously daily at bedtime. Will adjust insulin orders as needed and send new RX when dose adjusted amitriptyline (ELAVIL) 50 mg tablet Take 1 tablet by mouth daily at bedtime. polyethylene glycol 3350 17 gram packet Take 1 Packet by mouth once daily as needed for constipation. Dissolve dose in 4 - 8 ounces of liquid and take as directed. acetaminophen (TYLENOL) 500 mg tablet Take 2 tablets by mouth every 8 hours as needed for pain. sertraline (ZOLOFT) 100 mg tablet Take 100 mg by mouth daily at bedtime. atorvastatin (LIPITOR) 80 mg tablet Take 1 tablet by mouth once daily. lisinopril (ZESTRIL) 10 mg tablet Take 1 tablet by mouth once daily. metoprolol tartrate, short acting, (LOPRESSOR) 25 mg tablet Take 1 tablet by mouth two times a day. pantoprazole DR (PROTONIX) 40 mg tablet Take 1 tablet by mouth once daily. busPIRone (BUSPAR) 15 mg tablet Take 1 tablet by mouth three times a day. ezetimibe (ZETIA) 10 mg tablet Take 1 tablet by mouth once daily. Diaper,Brief, Adult,Disposable Change at least twice daily amLODIPine (NORVASC) 5 mg tablet Take 1 tablet by mouth once daily. May also take 1 tablet once daily as needed (For BP over 150/95). (Patient taking differently: Take 1 tablet by mouth once daily. ) metFORMIN (GLUCOPHAGE) 1,000 mg tablet Take 1,000 mg by mouth two times a day with meals. insulin aspart (NOVOLOG FLEXPEN U-100 INSULIN SUBCUTANEOUS) Inject subcutaneously daily at bedtime. 8 units in the morning, 4 units at lunch, 2 units at bedtime multivit,calc,mins/iron/folic (THERA-M ORAL) Take 1 tablet by mouth daily at 6 am. loperamide HCl (IMODIUM A-D) 2 mg tab Take 2 mg by mouth every 6 hours as needed (loose stool). Patient should start on March 28, 2024. dulaglutide (TRULICITY) 1.5 mg/0.5 mL pen injector Inject 1.5 mg subcutaneously one time a week. insulin aspart U-100 (NOVOLOG FLEXPEN U-100 INSULIN) 100 unit/mL (3 mL) USE SLIDING SCALE ONLY. Sliding scale 150=0, 151-200-1 units, 201-250=2 units, 251-300=3 units, 301-350=4 units, 351-400=5 units based on pre meal blood sugar only as needed. DUPIXENT SYRINGE 300 mg/2 mL injection Inject 300 mg subcutaneously every 2 weeks. ascorbic acid, vitamin C, (VITAMIN C) 500 mg tablet Take 1 tablet by mouth once daily. aspirin 81 mg cap Take 1 Each by mouth once daily. Insulin Celeste, Disposable, (PEN NEEDLE) 32 gauge x 5/32 Inject 1 Each subcutaneously every 24 hours. Give with each insulin administration. blood sugar diagnostic (BLOOD GLUCOSE TEST) test strip Test blood sugar(s) 4 times daily and PRN. Dx: Type 2 DM - Controlled E11.9 Insulin: Yes Lancets lancets Test blood sugar(s) 4 times daily and prn. Dx: Type 2 DM - Controlled E11.9 Insulin: Yes alcohol swabs Apply 1 Each to affected area four times daily. Blood-Glucose Meter 1 Each four times daily. melatonin 10 mg cap Take 1 capsule by mouth daily at bedtime. Blood-Glucose Meter,Continuous (DEXCOM G7 COTTON WEIGHER) [facility] Dispense one chief innovation officer kit. USE FOR CONTINUOUS GLUCOSE MONITORING. MULTIPLE INSULIN INJECTIONS. E11.9 Blood-Glucose Sensor (DEXCOM G7 SENSOR) kimberly CHANGE SENSOR EVERY 10 days. USE FOR CONTINUOUS GLUCOSE MONITORING. MULTIPLE INSULIN INJECTIONS. E11.9 cyanocobalamin (VITAMIN B-12) 1,000 mcg tab Take 1 tablet by mouth once daily. ondansetron orally disintegrating (ZOFRAN ODT) 4 mg disintegrating tablet Take 4 mg by mouth every 8 hours as needed for nausea/vomiting. tamsulosin (FLOMAX) 0.4 mg Take 2 capsules by mouth once daily. sucralfate (CARAFATE) 1 gram tablet Take 1 tablet by mouth four times daily. leflunomide (ARAVA) 10 mg tablet Take 1 tablet by mouth once daily. pen needle, diabetic, safety 31 gauge x 5/16 ndle Use as directed with insulin pen Blood-Glucose Transmitter (DEXCOM G6 TRANSMITTER) kimberly Apply new transmitter every 90 days. Clean transmitter with an alcohol swab with each sensor change. meclizine (ANTIVERT) 25 mg tab Take 1 tablet by mouth every 6 hours as needed (dizziness). albuterol HFA (PROVENTIL HFA, VENTOLIN HFA) 90 mcg/actuation inhaler Inhale 2 Puffs as instructed every 4 hours as needed for wheezing/shortness of breath. Lancets lancets Test blood sugar(s) 1 times daily and as needed. Dx: Type 2 DM - Controlled E11.9 Insulin: No Compression Socks, Large misc Knee-high compression socks with toes, Jobst Sensi socks 8 to 15 mmHg or similar covered by his insurance. Disp 3 pair, 3 refills pyridoxine, vitamin B6, (VITAMIN B-6) 50 mg tablet Take 1 tablet by mouth once daily. dextrose 40 % gel Take 15 g by mouth as needed. (Patient taking differently: Take 15 g by mouth as needed (Hypogylcemia (below 30)).) zinc sulfate 220 mg (50 mg zinc) capsule Take 1 capsule by mouth once daily for 7 doses. fluticasone (FLONASE) 50 mcg/actuation nasal spray Use 2 Sprays in each nostril once daily as needed for cold/allergy symptoms. Rinse mouth after use. Cholecalciferol, Vitamin D3, 125 mcg (5,000 unit) cap Take 1 tab daily with food. (Patient taking differently: Take 5,000 Units by mouth once daily. Take 1 tab daily with food.) PAST MEDICAL HISTORY Diagnosis Date Atopic eczema Benign prostatic hyperplasia with urinary hesitancy Chronic anemia Depression Depression Diabetes mellitus (HCC) Essential hypertension Gastroesophageal reflux disease without esophagitis Generalized anxiety disorder Hypercholesterolemia Neuropathy Osteomyelitis of right foot (HCC) Tobacco use Social History Tobacco Use Smoking status: Every Day Current packs/day: 1.00 Average packs/day: 1.5 packs/day for 43.5 years (64.8 ttl pk-yrs) Types: Cigarettes Start date: 1981 Smokeless tobacco: Never Vaping Use Vaping status: Never Used Substance Use Topics Alcohol use: Never Drug use: Never Latest Ref Rng 03/26/2024 03/27/2024 05/25/2024 WBC 3.70 - 11.00 k/uL 8.77 9.41 7.33 RBC 4.20 - 6.00 m/uL 3.71 (L) 3.92 (L) 3.93 (L) Hemoglobin 13.0 - 17.0 g/dL 8.6 (L) 9.2 (L) 10.2 (L) Hematocrit 39.0 - 51.0 % 25.5 (L) 26.6 (L) 29.5 (L) MCV 80.0 - 100.0 fL 68.7 (L) 67.9 (L) 75.1 (L) MCH 26.0 - 34.0 pg 23.2 (L) 23.5 (L) 26.0 MCHC 30.5 - 36.0 g/dL 33.7 34.6 34.6 RDW-CV 11.5 - 15.0 % 22.7 (H) 23.3 (H) 24.0 (H) Platelet Count 150 - 400 k/uL 283 295 234 MPV 9.0 - 12.7 fL 9.6 9.5 9.9 Neut% % 58.7 Abs Neut (ANC) 1.45 - 7.50 k/uL 4.30 Lymph% % 32.3 Abs Lymph 1.00 - 4.00 k/uL 2.37 [place]% % 5.3 Abs [place] <0.87 k/uL 0.39 Eosin% % 2.6 Abs Eosin <0.46 k/uL 0.19 Baso% % 1.0 Abs Baso <0.11 k/uL 0.07 Immature Gran % % 0.1 IMMATURE GRANS (ABS) <0.10 k/uL <0.03 NRBC /100 WBC 0.3 Absolute nRBC <0.01 k/uL 0.03 (H) 0.05 (H) 0.02 (H) DTYPE Auto Protein, Total 6.3 - 8.0 g/dL 6.6 7.1 Albumin 3.9 - 4.9 g/dL 3.4 (L) 3.6 (L) Calcium 8.5 - 10.2 mg/dL 8.9 9.0 Bilirubin, Total 0.2 - 1.3 mg/dL <0.2 (L) <0.2 (L) Alkaline Phosphatase 38 - 113 U/L 116 (H) 118 (H) AST 14 - 40 U/L 9 (L) 12 (L) ALT 10 - 54 U/L <5 (L) <5 (L) Glucose 74 - 99 mg/dL 226 (H) 241 (H) BUN 9 - 24 mg/dL 10 11 Creatinine 0.73 - 1.22 mg/dL 1.03 1.07 Sodium 136 - 144 mmol/L 138 137 Potassium 3.7 - 5.1 mmol/L 5.3 (H) 4.6 Chloride 98 - 107 mmol/L 102 101 CO2 22 - 30 mmol/L 29 28 Anion Gap 8 - 15 mmol/L 7 (L) 8 eGFR >=60 mL/min/1.73m 85 81 Total Cholesterol, Nonfasting <200 mg/dL 72 Triglycerides, Nonfasting <150 mg/dL 114 HDL Cholesterol, Nonfasting >39 mg/dL 28 (L) LDL Cholesterol Calculated, Nonfasting <100 mg/dL 21 Non HDL Cholesterol, Nonfasting <130 mg/dL 44 VLDL Cholesterol, Nonfasting <30 mg/dL 23 Total Chol/HDL Ratio, Nonfasting <5.10 mg/dL 2.57 LDL/HDL Ratio, Nonfasting <2.54 mg/dL 0.75 Phosphorus 2.7 - 4.8 mg/dL 2.5 (L) 3.0 Magnesium 1.7 - 2.3 mg/dL 1.8 1.8 Glucose, Point of Care 74 - 99 mg/dL 294 ! 1. Type 2 diabetes mellitus with hyperglycemia, with long-term current use of insulin (HCC) (E11.65) controlled, continue present management unchanged 2. Dizziness (R42) - Symptoms primarily occur with positional changes; described as a sensation of head pressure and ear fullness. - Educated on the benefits of wearing compression socks during the day to prevent venous pooling and improve venous return. - Advised to increase fluid intake to 64 ounces per day, with a focus on water rather than coffee, to prevent dehydration. - Recommended standing up slowly and counting to 10 before moving to allow for adequate blood circulation. - Ordered basic lab work to rule out anemia and other potential causes. 3. Pain in both feet (M79.671) - Patient experiencing neuropathic pain, currently managed with Lyrica. - Discussed referral to pain management for further evaluation and management. 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 4. Essential hypertension (I10) well controlled, continue present management. 5. Iron deficiency anemia, unspecified iron deficiency anemia type (D50.9) - History of anemia - Ordered lab work to assess current hemoglobin and hematocrit levels. Keep 3 month follow up Rachel Chery MD Labs today Mike Candelario APRN.UNATTENDED GROUND SENSOR SPECIALIST Medical Decision Making: Problems: Moderate: 2+ stable chronic illnesses Data: Unique test(s) ordered: 3+ Risk: Moderate: Drug management Medical Decision Making Level: 4 - Moderate documented in this encounter [facility] 09-22-2024 Telephone encounter Note Maddy zelaya reports PA is needed for qty on pregabalin 225. This was completed electronically and approved. Facility notified. [facility] 09-22-2024 Miscellaneous Notes Maddy zelaya reports PA is needed for qty on pregabalin 225. This was completed electronically and approved. Facility notified. documented in this encounter [facility] 09-04-2024 Instructions Rachel Chery MD - 09/04/2024 10:42 AM EDT - Continue taking your current medications as prescribed: - Amitriptyline 50 mg at bedtime. - Amlodipine 5 mg daily; take an extra dose if your blood pressure is over 150/95. - Aspirin 81 mg daily. - Atorvastatin 80 mg daily. - Basaglar insulin as directed. - Monitor your blood pressure regularly. If you experience lightheadedness or dizziness, drink 1-2 cups of water or any non-caffeinated fluid within 5 minutes to help raise your blood pressure. - Increase your fluid intake with non-caffeinated beverages to help maintain stable blood pressure. - Apply a moisturizing lotion to your hands regularly to address dryness and itching. Consider using a thicker hand cream like CeraVe Itch Relief, Aveeno, Eucerin, or Lubriderm. Apply a small amount of Aquaphor over the lotion if needed, especially at night, and consider wearing gloves to enhance moisturization. - Avoid using dish soap like Emily on your hands, as it can cause dryness. Use regular hand soap instead. - Monitor your blood sugar levels, especially in the morning. If your blood sugar is high at night, consider adjusting your diet or insulin dosage with supper. - Try to have at least one meal and a healthy snack each day. If possible, incorporate fresh fruits and vegetables into your diet. - Seek support from your case management social worker to explore options for moving to assisted living in [place]. - Attend sikh services to find community and support. - Read your Bible and pray regularly to find strength and purpose. - Standing orders for labs have been placed; please come back to the clinic to complete them at your convenience. documented in this encounter [facility] 08-25-2024 Telephone encounter Note Sw spoke with patient residing in [place] here in [place]. Patient reports that he does everything for himself and notes that he would like to find independent living. Patient notes that he currently is on [employer] that helps with cost of housing. Sw and patient discussed [employer] as they may be able to help with looking at different housing options for patient. Sw noted that she would send patient My Chart message with Tabitha Rae contact info. [facility] 08-25-2024 Miscellaneous Notes Sw spoke with patient residing in [place] here in [place]. Patient reports that he does everything for himself and notes that he would like to find independent living. Patient notes that he currently is on [employer] that helps with cost of housing. Sw and patient discussed [employer] as they may be able to help with looking at different housing options for patient. Sw noted that she would send patient My Chart message with Tabitha Rae contact info. documented in this encounter [facility] 08-23-2024 History of Present illness Narrative This note was created using [employer]. Subjective Berta Jaramillo is a 59 year old male. Patient presents with: 3 month f/up Berta is a 59-year-old male with a history of HTN, DM, and neuropathy, presenting for a 3-month follow-up. Berta reports experiencing pruritus on his hands, which he attributes to dryness. He has been using lotion but is unsure of its effectiveness. He frequently washes his hands and uses Emily soap when washing dishes, but does not wear gloves. He is currently taking amitriptyline 50 mg at bedtime for neuropathic pain. He also reports feeling lightheaded and dizzy at times, which he believes is related to his BP. His BP readings have ranged from 110s to 120s systolic and 60s to 80s diastolic, with a recent reading of 104/50 mmHg. He is currently taking amlodipine 5 mg daily, with an additional dose if his BP exceeds 150/95 mmHg. He is also on aspirin 81 mg daily and atorvastatin 80 mg daily. Berta monitors his blood glucose levels and reports that his morning readings are generally good, ranging from 126 to 159 mg/dL. However, he notes that his bedtime readings are often high, around 209 mg/dL. He attributes this to his dietary habits, as he only eats one meal a day due to dissatisfaction with the food provided at his assisted living facility. He is currently on Basaglar insulin. Berta expresses significant dissatisfaction with his current living situation at [facility], an assisted living facility. He reports feeling isolated and lonely, stating that he has no family or friends nearby and rarely receives visitors. He also expresses frustration with the quality of care and maintenance at the facility, noting issues with his carpet and inadequate cleaning services. He desires to move back to [facility] to be closer to his mother, who lives in [place] [facility] in [place]. However, he feels financially constrained, receiving only $50 a month, which he primarily spends on cigarettes. Berta reports feeling tired and weary, both physically and emotionally. He expresses feelings of hopelessness and a desire to find a way out, including thoughts of ending his life. He mentions a past incident where he attempted self-harm but was interrupted by a phone call. He also reports a history of depression and asks about the possibility of taking Valium for his symptoms. He expresses a desire to attend sikh and reconnect with his liza, but feels overwhelmed by his current circumstances. PAST MEDICAL HISTORY Diagnosis Date Atopic eczema Benign prostatic hyperplasia with urinary hesitancy Chronic anemia Depression Depression Diabetes mellitus (HCC) Essential hypertension Gastroesophageal reflux disease without esophagitis Generalized anxiety disorder Hypercholesterolemia Neuropathy Osteomyelitis of right foot (HCC) Tobacco use Current Outpatient Medications Medication Sig pregabalin (LYRICA) 225 mg capsule Take 1 capsule by mouth three times a day for 180 days. ferrous sulfate 325 mg (65 mg iron) tablet Take 1 tablet by mouth every other day. insulin glargine (BASAGLAR KWIKPEN U-100 INSULIN) 100 unit/mL (3 mL) Inject 10 Units subcutaneously daily at bedtime. Will adjust insulin orders as needed and send new RX when dose adjusted amitriptyline (ELAVIL) 50 mg tablet Take 1 tablet by mouth daily at bedtime. polyethylene glycol 3350 17 gram packet Take 1 Packet by mouth once daily as needed for constipation. Dissolve dose in 4 - 8 ounces of liquid and take as directed. acetaminophen (TYLENOL) 500 mg tablet Take 2 tablets by mouth every 8 hours as needed for pain. sertraline (ZOLOFT) 100 mg tablet Take 100 mg by mouth daily at bedtime. lisinopril (ZESTRIL) 10 mg tablet Take 1 tablet by mouth once daily. metoprolol tartrate, short acting, (LOPRESSOR) 25 mg tablet Take 1 tablet by mouth two times a day. pantoprazole DR (PROTONIX) 40 mg tablet Take 1 tablet by mouth once daily. busPIRone (BUSPAR) 15 mg tablet Take 1 tablet by mouth three times a day. ezetimibe (ZETIA) 10 mg tablet Take 1 tablet by mouth once daily. Diaper,Brief, Adult,Disposable Change at least twice daily amLODIPine (NORVASC) 5 mg tablet Take 1 tablet by mouth once daily. May also take 1 tablet once daily as needed (For BP over 150/95). metFORMIN (GLUCOPHAGE) 1,000 mg tablet Take 1,000 mg by mouth two times a day with meals. insulin aspart (NOVOLOG FLEXPEN U-100 INSULIN SUBCUTANEOUS) Inject 2 Units subcutaneously daily at bedtime. multivit,calc,mins/iron/folic (THERA-M ORAL) Take 1 tablet by mouth daily at 6 am. loperamide HCl (IMODIUM A-D) 2 mg tab Take 2 mg by mouth every 6 hours as needed (loose stool). Patient should start on March 28, 2024. dulaglutide (TRULICITY) 1.5 mg/0.5 mL pen injector Inject 1.5 mg subcutaneously one time a week. insulin aspart U-100 (NOVOLOG FLEXPEN U-100 INSULIN) 100 unit/mL (3 mL) USE SLIDING SCALE ONLY. Sliding scale 150=0, 151-200-1 units, 201-250=2 units, 251-300=3 units, 301-350=4 units, 351-400=5 units based on pre meal blood sugar only as needed. fluticasone (FLONASE) 50 mcg/actuation nasal spray Use 2 Sprays in each nostril once daily as needed for cold/allergy symptoms. Rinse mouth after use. DUPIXENT SYRINGE 300 mg/2 mL injection Inject 300 mg subcutaneously every 2 weeks. ascorbic acid, vitamin C, (VITAMIN C) 500 mg tablet Take 1 tablet by mouth once daily. aspirin 81 mg cap Take 1 Each by mouth once daily. Insulin Celeste, Disposable, (PEN NEEDLE) 32 gauge x 5/32 Inject 1 Each subcutaneously every 24 hours. Give with each insulin administration. blood sugar diagnostic (BLOOD GLUCOSE TEST) test strip Test blood sugar(s) 4 times daily and PRN. Dx: Type 2 DM - Controlled E11.9 Insulin: Yes Lancets lancets Test blood sugar(s) 4 times daily and prn. Dx: Type 2 DM - Controlled E11.9 Insulin: Yes alcohol swabs Apply 1 Each to affected area four times daily. Blood-Glucose Meter 1 Each four times daily. melatonin 10 mg cap Take 1 capsule by mouth daily at bedtime. Blood-Glucose Meter,Continuous (DEXCOM G7 COTTON WEIGHER) [facility] Dispense one chief innovation officer kit. USE FOR CONTINUOUS GLUCOSE MONITORING. MULTIPLE INSULIN INJECTIONS. E11.9 Blood-Glucose Sensor (DEXCOM G7 SENSOR) kimberly CHANGE SENSOR EVERY 10 days. USE FOR CONTINUOUS GLUCOSE MONITORING. MULTIPLE INSULIN INJECTIONS. E11.9 cyanocobalamin (VITAMIN B-12) 1,000 mcg tab Take 1 tablet by mouth once daily. ondansetron orally disintegrating (ZOFRAN ODT) 4 mg disintegrating tablet Take 4 mg by mouth every 8 hours as needed for nausea/vomiting. tamsulosin (FLOMAX) 0.4 mg Take 2 capsules by mouth once daily. sucralfate (CARAFATE) 1 gram tablet Take 1 tablet by mouth four times daily. leflunomide (ARAVA) 10 mg tablet Take 1 tablet by mouth once daily. pen needle, diabetic, safety 31 gauge x 5/16 ndle Use as directed with insulin pen Blood-Glucose Transmitter ([employer] G6 TRANSMITTER) kimberly Apply new transmitter every 90 days. Clean transmitter with an alcohol swab with each sensor change. meclizine (ANTIVERT) 25 mg tab Take 1 tablet by mouth every 6 hours as needed (dizziness). Lancets lancets Test blood sugar(s) 1 times daily and as needed. Dx: Type 2 DM - Controlled E11.9 Insulin: No pyridoxine, vitamin B6, (VITAMIN B-6) 50 mg tablet Take 1 tablet by mouth once daily. dextrose 40 % gel Take 15 g by mouth as needed. (Patient taking differently: Take 15 g by mouth as needed (Hypogylcemia (below 30)).) zinc sulfate 220 mg (50 mg zinc) capsule Take 1 capsule by mouth once daily for 7 doses. atorvastatin (LIPITOR) 80 mg tablet Take 1 tablet by mouth once daily. Cholecalciferol, Vitamin D3, 125 mcg (5,000 unit) cap Take 1 tab daily with food. (Patient taking differently: Take 5,000 Units by mouth once daily. Take 1 tab daily with food.) albuterol HFA (PROVENTIL HFA, VENTOLIN HFA) 90 mcg/actuation inhaler Inhale 2 Puffs as instructed every 4 hours as needed for wheezing/shortness of breath. No current facility-administered medications for this visit. Review of Systems Objective BP 104/50 Pulse 96 Resp 12 Wt 100.2 kg (220 lb 14.4 oz) SpO2 99% BMI 32.62 kg/m Last 5 Encounter Wt Readings: Date: Wt: 08/23/2024 100.2 kg (220 lb 14.4 oz) 05/25/2024 99.8 kg (220 lb) 03/22/2024 101.6 kg (223 lb 15.8 oz) 11/23/2023 104.1 kg (229 lb 9.6 oz) 11/10/2023 104.1 kg (229 lb 9.6 oz) No waist measurement recorded Estimated body mass index is 32.62 kg/m as calculated from the following: Height as of 03/22/24: 175.3 cm (5' 9). Weight as of this encounter: 100.2 kg (220 lb 14.4 oz). Last 5 Encounter BP Readings: Date: BP: 08/23/2024 104/50 05/25/2024 111/68 04/14/2024 122/70 04/10/2024 118/70 03/30/2024 120/80 Physical Exam Vitals reviewed. Constitutional: Appearance: Normal appearance. He is obese. Eyes: Conjunctiva/sclera: Conjunctivae normal. Cardiovascular: Rate and Rhythm: Normal rate and regular rhythm. Heart sounds: Normal heart sounds. Pulmonary: Effort: Pulmonary effort is normal. Breath sounds: Normal breath sounds. Musculoskeletal: Right lower leg: Edema present. Left lower leg: Edema present. Skin: General: Skin is warm and dry. Neurological: General: No focal deficit present. Mental Status: He is alert and oriented to person, place, and time. Psychiatric: Attention and Perception: Attention and perception normal. Mood and Affect: Mood is depressed. Speech: Speech normal. Behavior: Behavior normal. Thought Content: Thought content normal. Judgment: Judgment normal. Assessment and Plan # Type 2 diabetes mellitus with hyperglycemia, with long-term current use of insulin (HCC) (E11.65) - Blood glucose levels in the morning are generally well-controlled with Basaglar. - Educated on the importance of adjusting diet and mealtime insulin to manage elevated bedtime glucose levels. - Continue current insulin regimen. # Depression, recurrent (F33.9) # Anxiety (F41.9) - Patient expresses significant feelings of loneliness and hopelessness, with thoughts of self-harm but no plan endorsed. - Discussed the importance of community support and spiritual engagement. - Referred to social work supervisor for additional support and resources. - Encouraged regular attendance at sikh and engagement with community members. - Continue current medications. # Essential hypertension (I10) - Blood pressure readings are generally within target range, though today's reading was 104/50 mmHg. - Educated on the importance of adequate hydration to prevent hypotension. - Continue current medication regimen: Amlodipine 5 mg daily, with an additional dose if BP >150/95 mmHg. # Hypercholesterolemia (E78.00) - Continue atorvastatin 80 mg daily. # Vitamin B6 deficiency (non anemic) (E53.1) - Continue current management. # Iron deficiency anemia, unspecified iron deficiency anemia type (D50.9) - Continue current management. # Dry skin (L85.3) - Exam reveals xerosis on hands. - Advised against using dish soap on hands; recommended wearing gloves when washing dishes. - Recommended application of thick emollients such as CeraVe Itch Relief Lotion, Aveeno, or Lubriderm. - Suggested using Aquaphor at night with gloves to enhance moisturization. I spent a total of 42 minutes on the date of the service which included [id number] patient care, completing clinical documentation, obtaining and/or reviewing separately obtained history, performing a medically appropriate examination, counseling and educating the patient/family/caregiver, ordering medications, tests, or procedures, independently interpreting results (not separately reported), and communicating results to the patient/family/caregiver. Rachel Chery MD The patient consented to the use of [employer] software for draft documentation of the visit consistent with [facility] s Notice of Privacy Practices. documented in this encounter [facility] 08-23-2024 Note HNO ID: [id number] Author: RACHEL CHERY MD Service: ? Author Type: Physician Type: Progress Notes Filed: 09/04/2024 10:58 Note Text: This note was created using [employer]. Subjective Berta Jaramillo is a 59 year old male. Patient presents with: 3 month f/up Berta is a 59-year-old male with a history of HTN, DM, and neuropathy, presenting for a 3-month follow-up. Berta reports experiencing pruritus on his hands, which he attributes to dryness. He has been using lotion but is unsure of its effectiveness. He frequently washes his hands and uses Emily soap when washing dishes, but does not wear gloves. He is currently taking amitriptyline 50 mg at bedtime for neuropathic pain. He also reports feeling lightheaded and dizzy at times, which he believes is related to his BP. His BP readings have ranged from 110s to 120s systolic and 60s to 80s diastolic, with a recent reading of 104/50 mmHg. He is currently taking amlodipine 5 mg daily, with an additional dose if his BP exceeds 150/95 mmHg. He is also on aspirin 81 mg daily and atorvastatin 80 mg daily. Berta monitors his blood glucose levels and reports that his morning readings are generally good, ranging from 126 to 159 mg/dL. However, he notes that his bedtime readings are often high, around 209 mg/dL. He attributes this to his dietary habits, as he only eats one meal a day due to dissatisfaction with the food provided at his assisted living facility. He is currently on Basaglar insulin. Berta expresses significant dissatisfaction with his current living situation at [facility], an assisted living facility. He reports feeling isolated and lonely, stating that he has no family or friends nearby and rarely receives visitors. He also expresses frustration with the quality of care and maintenance at the facility, noting issues with his carpet and inadequate cleaning services. He desires to move back to [facility] to be closer to his mother, who lives in [place] [facility] in [place]. However, he feels financially constrained, receiving only $50 a month, which he primarily spends on cigarettes. Berta reports feeling tired and weary, both physically and emotionally. He expresses feelings of hopelessness and a desire to find a way out, including thoughts of ending his life. He mentions a past incident where he attempted self-harm but was interrupted by a phone call. He also reports a history of depression and asks about the possibility of taking Valium for his symptoms. He expresses a desire to attend sikh and reconnect with his liza, but feels overwhelmed by his current circumstances. PAST MEDICAL HISTORY Diagnosis Date Atopic eczema Benign prostatic hyperplasia with urinary hesitancy Chronic anemia Depression Depression Diabetes mellitus (HCC) Essential hypertension Gastroesophageal reflux disease without esophagitis Generalized anxiety disorder Hypercholesterolemia Neuropathy Osteomyelitis of right foot (HCC) Tobacco use Current Outpatient Medications Medication Sig pregabalin (LYRICA) 225 mg capsule Take 1 capsule by mouth three times a day for 180 days. ferrous sulfate 325 mg (65 mg iron) tablet Take 1 tablet by mouth every other day. insulin glargine (BASAGLAR KWIKPEN U-100 INSULIN) 100 unit/mL (3 mL) Inject 10 Units subcutaneously daily at bedtime. Will adjust insulin orders as needed and send new RX when dose adjusted amitriptyline (ELAVIL) 50 mg tablet Take 1 tablet by mouth daily at bedtime. polyethylene glycol 3350 17 gram packet Take 1 Packet by mouth once daily as needed for constipation. Dissolve dose in 4 - 8 ounces of liquid and take as directed. acetaminophen (TYLENOL) 500 mg tablet Take 2 tablets by mouth every 8 hours as needed for pain. sertraline (ZOLOFT) 100 mg tablet Take 100 mg by mouth daily at bedtime. lisinopril (ZESTRIL) 10 mg tablet Take 1 tablet by mouth once daily. metoprolol tartrate, short acting, (LOPRESSOR) 25 mg tablet Take 1 tablet by mouth two times a day. pantoprazole DR (PROTONIX) 40 mg tablet Take 1 tablet by mouth once daily. busPIRone (BUSPAR) 15 mg tablet Take 1 tablet by mouth three times a day. ezetimibe (ZETIA) 10 mg tablet Take 1 tablet by mouth once daily. Diaper,Brief, Adult,Disposable Change at least twice daily amLODIPine (NORVASC) 5 mg tablet Take 1 tablet by mouth once daily. May also take 1 tablet once daily as needed (For BP over 150/95). metFORMIN (GLUCOPHAGE) 1,000 mg tablet Take 1,000 mg by mouth two times a day with meals. insulin aspart (NOVOLOG FLEXPEN U-100 INSULIN SUBCUTANEOUS) Inject 2 Units subcutaneously daily at bedtime. multivit,calc,mins/iron/folic (THERA-M ORAL) Take 1 tablet by mouth daily at 6 am. loperamide HCl (IMODIUM A-D) 2 mg tab Take 2 mg by mouth every 6 hours as needed (loose stool). Patient should start on March 28, 2024. dulaglutide (TRULICITY) 1.5 mg/0.5 mL (more content not included)... [facility] 08-22-2024 Note HNO ID: [id number] Author: ?, ?, ? Service: ? Author Type: ? Type: Progress Notes Filed: 09/21/2024 03:03 Note Text: Patient has appt scheduled with PCP on 08.23.24, added to appointment notes to discuss [facility] 08-22-2024 History of Present illness Narrative Patient has appt scheduled with PCP on 08.23.24, added to appointment notes to discuss documented in this encounter [facility] 08-21-2024 Note Patient Outreach ( WSTR) BERTA JARAMILLO ([id number]) 1965 M Date Time Provider Department 08/21/24 RACHEL CHERY ASWSTR During your visit today, we recorded the following information about you: Renee Mccrary 09/21/2024 3:03 AM Signed Patient has appt scheduled with PCP on 08.23.24, added to appointment notes to discuss Allergies As of Date: 08/21/2024 (No Known Allergies) Date Reviewed: 05/25/2024 Reviewed by: Kenzie Curtis LPN - Fully Assessed Reason for Visit: Outpatient Colonoscopy [482] Cmt: Patient is overdue for colorectal cancer screening (has never done). Patient will need consult with Jesus Etienne CNP prior to colorectal cancer screening. Primary Visit Diagnosis:Screening for colorectal cancer [Z12.11, Z12.12] Prescriptions as of 09/21/2024 - pregabalin (LYRICA) 225 mg capsule Take 1 capsule by mouth three times a day for 180 days. - ferrous sulfate 325 mg (65 mg iron) tablet Take 1 tablet by mouth every other day. - insulin glargine (BASAGLAR KWIKPEN U-100 INSULIN) 100 unit/mL (3 mL) Inject 10 Units subcutaneously daily at bedtime. Will adjust insulin orders as needed and send new RX when dose adjusted - amitriptyline (ELAVIL) 50 mg tablet Take 1 tablet by mouth daily at bedtime. - pyridoxine, vitamin B6, (VITAMIN B-6) 50 mg tablet Take 1 tablet by mouth once daily. - dextrose 40 % gel Take 15 g by mouth as needed. - zinc sulfate 220 mg (50 mg zinc) capsule Take 1 capsule by mouth once daily for 7 doses. - polyethylene glycol 3350 17 gram packet Take 1 Packet by mouth once daily as needed for constipation. Dissolve dose in 4 - 8 ounces of liquid and take as directed. - acetaminophen (TYLENOL) 500 mg tablet Take 2 tablets by mouth every 8 hours as needed for pain. - sertraline (ZOLOFT) 100 mg tablet Take 100 mg by mouth daily at bedtime. - atorvastatin (LIPITOR) 80 mg tablet Take 1 tablet by mouth once daily. - lisinopril (ZESTRIL) 10 mg tablet Take 1 tablet by mouth once daily. - metoprolol tartrate, short acting, (LOPRESSOR) 25 mg tablet Take 1 tablet by mouth two times a day. - pantoprazole DR (PROTONIX) 40 mg tablet Take 1 tablet by mouth once daily. - busPIRone (BUSPAR) 15 mg tablet Take 1 tablet by mouth three times a day. - ezetimibe (ZETIA) 10 mg tablet Take 1 tablet by mouth once daily. - Diaper,Brief, Adult,Disposable Change at least twice daily - amLODIPine (NORVASC) 5 mg tablet Take 1 tablet by mouth once daily. May also take 1 tablet once daily as needed (For BP over 150/95). - metFORMIN (GLUCOPHAGE) 1,000 mg tablet Take 1,000 mg by mouth two times a day with meals. - insulin aspart (NOVOLOG FLEXPEN U-100 INSULIN SUBCUTANEOUS) Inject 2 Units subcutaneously daily at bedtime. - multivit,calc,mins/iron/folic (THERA-M ORAL) Take 1 tablet by mouth daily at 6 am. - loperamide HCl (IMODIUM A-D) 2 mg tab Take 2 mg by mouth every 6 hours as needed (loose stool). Patient should start on March 28, 2024. - dulaglutide (TRULICITY) 1.5 mg/0.5 mL pen injector Inject 1.5 mg subcutaneously one time a week. - insulin aspart U-100 (NOVOLOG FLEXPEN U-100 INSULIN) 100 unit/mL (3 mL) USE SLIDING SCALE ONLY. Sliding scale 150=0, 151-200-1 units, 201-250=2 units, 251-300=3 units, 301-350=4 units, 351-400=5 units based on pre meal blood sugar only as needed. - fluticasone (FLONASE) 50 mcg/actuation nasal spray Use 2 Sprays in each nostril once daily as needed for cold/allergy symptoms. Rinse mouth after use. - DUPIXENT SYRINGE 300 mg/2 mL injection Inject 300 mg subcutaneously every 2 weeks. - ascorbic acid, vitamin C, (VITAMIN C) 500 mg tablet Take 1 tablet by mouth once daily. - aspirin 81 mg cap Take 1 Each by mouth once daily. - Insulin Celeste, Disposable, (PEN NEEDLE) 32 gauge x 5/32 Inject 1 Each subcutaneously every 24 hours. Give with each insulin administration. - blood sugar diagnostic (BLOOD GLUCOSE TEST) test strip Test blood sugar(s) 4 times daily and PRN. Dx: Type 2 DM - Controlled E11.9 Insulin: Yes - Lancets lancets Test blood sugar(s) 4 times daily and prn. Dx: Type 2 DM - Controlled E11.9 Insulin: Yes - alcohol swabs Apply 1 Each to affected area four times daily. - Blood-Glucose Meter 1 Each four times daily. - Cholecalciferol, Vitamin D3, 125 mcg (5,000 unit) cap Take 1 tab daily with food. - melatonin 10 mg cap Take 1 capsule by mouth daily at bedtime. - Blood-Glucose Meter,Continuous (DEXCOM G7 COTTON WEIGHER) [facility] Dispense one chief innovation officer kit. USE FOR CONTINUOUS GLUCOSE MONITORING. MULTIPLE INSULIN INJECTIONS. E11.9 - Blood-Glucose Sensor (DEXCOM G7 SENSOR) kimberly CHANGE SENSOR EVERY 10 days. USE FOR CONTINUOUS GLUCOSE MONITORING. MULTIPLE INSULIN INJECTIONS. E11.9 - cyanocobalamin (VITAMIN B-12) 1,000 mcg tab Take 1 tablet by mouth once daily. - ondansetron orally disintegrating (ZOFR (more content not included)... [facility] 08-19-2024 Telephone encounter Note The following approved medication requests have been transmitted electronically. Requested Prescriptions Signed Prescriptions Disp Refills pregabalin (LYRICA) 225 mg capsule 90 capsule 5 Sig: Take 1 capsule by mouth three times a day for 180 days. Authorizing Provider: RACHEL CHERY MD [facility] 08-19-2024 Miscellaneous Notes The following approved medication requests have been transmitted electronically. Requested Prescriptions Signed Prescriptions Disp Refills pregabalin (LYRICA) 225 mg capsule 90 capsule 5 Sig: Take 1 capsule by mouth three times a day for 180 days. Authorizing Provider: RACHEL CHERY MD Fax rec'd from [facility] for refill. Last saw EXTENSION PROFESSOR 05/25/24. Next appt is pcp 08/23/24. documented in this encounter [facility] 08-18-2024 Telephone encounter Note Fax rec'd from [facility] for refill. Last saw EXTENSION PROFESSOR 05/25/24. Next appt is pcp 08/23/24. [facility] 08-02-2024 Telephone encounter Note Signed CMN for Dexcom G7 sensors faxed to [employer]. Notified [employer] rep that Pt's last OV note with Coral Martinez CNP was 11/10/2023; OV note provided via electronic fax. Fax confirmation received. PSS contacted assisted living where Pt resides and scheduled Pt for diabetic f/u appointment with Coral Martinez on 09/20/2024. Updated OV notes will be faxed at that time. Allan Breaux RN August 02, 2024 1:14 PM [facility] 08-02-2024 Miscellaneous Notes Signed CMN for Dexcom G7 sensors faxed to [employer]. Notified [employer] rep that Pt's last OV note with Coral Martinez CNP was 11/10/2023; OV note provided via electronic fax. Fax confirmation received. PSS contacted assisted living where Pt resides and scheduled Pt for diabetic f/u appointment with Coral Martinez on 09/20/2024. Updated OV notes will be faxed at that time. Allan Breaux RN August 02, 2024 1:14 PM documented in this encounter [facility] 08-01-2024 Telephone encounter Note Spoke with the patient and he declined to arrange a Consult with Lung Cancer Screening Program [facility] 08-01-2024 Miscellaneous Notes Spoke with the patient and he declined to arrange a Consult with Lung Cancer Screening Program documented in this encounter [facility] 07-28-2024 Telephone encounter Note CMN for Dexcom G7 sensors and chief innovation officer received from [employer]. Form completed and placed on provider's desk for signature when she returns to office on 08/02/2024. Allan Breaux RN July 28, 2024 3:41 PM [facility] 07-28-2024 Miscellaneous Notes CMN for Dexcom G7 sensors and chief innovation officer received from [employer]. Form completed and placed on provider's desk for signature when she returns to office on 08/02/2024. Allan Breaux RN July 28, 2024 3:41 PM This form was faxed to Endocrinology. [facility] asking if pcp received form they faxed to her on 07/24/24, for patient to get diabetic supplies. States she will fax it again today. Phoned pt to confirm he wants diabetic supplies from this company. No answer. Voice mailbox has not been set up. documented in this encounter [facility] 07-28-2024 Telephone encounter Note This form was faxed to Endocrinology. [facility] 07-28-2024 Telephone encounter Note [facility] asking if pcp received form they faxed to her on 07/24/24, for patient to get diabetic supplies. States she will fax it again today. Phoned pt to confirm he wants diabetic supplies from this company. No answer. Voice mailbox has not been set up. [facility] 06-13-2024 Telephone encounter Note Images from the original note were not included. Prior authorization for Trulicity submitted via CoverMyMeds to [employer] Medicare Part D. Rubio: [id number] Allan Breaux RN June 13, 2024 10:15 AM [facility] 06-13-2024 Miscellaneous Notes Images from the original note were not included. Prior authorization for Trulicity submitted via CoverMyMeds to [employer] Medicare Part D. Rubio: [id number] Allan Breaux RN June 13, 2024 10:15 AM Call returned to Belem at [facility] and notified her that our office has never received any fax re: Trulicity prior authorization. Verified fax number, and the PA form was being faxed to [facility] office. No chart notes indicating this was received. Belem was given the fax number for [facility] office (fax #: [phone]) as the default for this Pt, and will re-send the PA form now. Allan Breaux RN June 13, 2024 9:19 AM Belem from [facility] called and asked if the office received the PA form for the Trulicity that was faxed on 05/31. Please call Belem at [phone] to update documented in this encounter [facility] 06-13-2024 Telephone encounter Note Call returned to Belem at [facility] and notified her that our office has never received any fax re: Trulicity prior authorization. Verified fax number, and the PA form was being faxed to [facility] office. No chart notes indicating this was received. Belem was given the fax number for [facility] (fax #: [phone]) as the default for this Pt, and will re-send the PA form now. Allan Breaux RN June 13, 2024 9:19 AM [facility] 06-13-2024 Telephone encounter Note Belem from [facility] called and asked if the office received the PA form for the Trulicity that was faxed on 05/31. Please call Belem at [phone] to update [facility] 06-06-2024 Telephone encounter Note My Chart message sent regarding results. [facility] 06-06-2024 Miscellaneous Notes My Chart message sent regarding results. Attempted to reach patient with no answer and unable to leave a message due to voice mailbox has not been set up. Phoned patient and has no voicemail set up, try again later. Please let him know that he is anemic but levels are improving. I sent a prescription in for iron to be taken every other day x 30 doses. Latest Ref Rng 03/26/2024 03/27/2024 05/25/2024 WBC 3.70 - 11.00 k/uL 8.77 9.41 7.33 RBC 4.20 - 6.00 m/uL 3.71 (L) 3.92 (L) 3.93 (L) Hemoglobin 13.0 - 17.0 g/dL 8.6 (L) 9.2 (L) 10.2 (L) Hematocrit 39.0 - 51.0 % 25.5 (L) 26.6 (L) 29.5 (L) MCV 80.0 - 100.0 fL 68.7 (L) 67.9 (L) 75.1 (L) MCH 26.0 - 34.0 pg 23.2 (L) 23.5 (L) 26.0 MCHC 30.5 - 36.0 g/dL 33.7 34.6 34.6 RDW-CV 11.5 - 15.0 % 22.7 (H) 23.3 (H) 24.0 (H) Platelet Count 150 - 400 k/uL 283 295 234 MPV 9.0 - 12.7 fL 9.6 9.5 9.9 Neut% % 58.7 Abs Neut (ANC) 1.45 - 7.50 k/uL 4.30 Lymph% % 32.3 Abs Lymph 1.00 - 4.00 k/uL 2.37 Yankton% % 5.3 Abs [place]ankton <0.87 k/uL 0.39 Eosin% % 2.6 Abs Eosin <0.46 k/uL 0.19 Baso% % 1.0 Abs Baso <0.11 k/uL 0.07 Immature Gran % % 0.1 IMMATURE GRANS (ABS) <0.10 k/uL <0.03 NRBC /100 WBC 0.3 Absolute nRBC <0.01 k/uL 0.03 (H) 0.05 (H) 0.02 (H) DTYPE Auto Patient's last HgA1C was Hemoglobin A1C (%) Date Value 03/22/2024 7.1 09/13/2023 6.7 Hemoglobin A1C (POCT) (%) Date Value 11/10/2023 6.9 ) documented in this encounter [facility] 06-06-2024 Telephone encounter Note May alternate F2F OV with VV--cannot make all appointments VV [facility] 06-06-2024 Miscellaneous Notes May alternate F2F OV with VV--cannot make all appointments VV Patient was seen today by Mike Candelario UNATTENDED GROUND SENSOR SPECIALIST and when leaving patient wanted to know if his next [address] Chery could be virtual appointment. Please advise if one or more appointments can be virtuals documented in this encounter [facility] 05-30-2024 Telephone encounter Note Attempted to reach patient with no answer and unable to leave a message due to voice mailbox has not been set up. [facility] 05-29-2024 Note HNO ID: [id number] Author: ?, ?, ? Service: ? Author Type: ? Type: Progress Notes Filed: 05/29/2024 12:45 Note Text: POPULATION HEALTH NAVIGATION OUTREACH Action/[facility] Support: Called pt to schedule an appt in Pain Management. No VM unable to leave message. MyChart sent Reason for Outreach Care Gap/HCC or Scheduling Wellness Visits Care Gaps due: N/A Patient Contacted: Unable or unnecessary to reach patient: Unable to leave message [employer] message sent Navigation Signature: Pari Gallardo May 29, 2024 12:44 PM [facility] 05-29-2024 History of Present illness Narrative POPULATION HEALTH NAVIGATION OUTREACH Action/[facility] Support: Called pt to schedule an appt in Pain Management. No VM unable to leave message. MyChart sent Reason for Outreach Care Gap/HCC or Scheduling Wellness Visits Care Gaps due: N/A Patient Contacted: Unable or unnecessary to reach patient: Unable to leave message [employer] message sent Navigation Signature: Pari Gallardo May 29, 2024 12:44 PM documented in this encounter [facility] 05-29-2024 Note Patient Outreach (IVETH TNAV) BERTA JARAMILLO ([id number]) 1965 M Date Time Provider Department 05/29/24 NO PCP NETLEONELV During your visit today, we recorded the following information about you: Pari Gallardo 05/29/2024 12:45 PM Signed POPULATION HEALTH NAVIGATION OUTREACH Action/[facility] [place] Support: Called pt to schedule an appt in Pain Management. No VM unable to leave message. [employer] sent Reason for Outreach Care Gap/HCC or Scheduling Wellness Visits Care Gaps due: N/A Patient Contacted: Unable or unnecessary to reach patient: Unable to leave message [employer] message sent Navigation Signature: Pari Gallardo May 29, 2024 12:44 PM Allergies As of Date: 05/29/2024 (No Known Allergies) Date Reviewed: 05/25/2024 Reviewed by: Kenzie Curtis LPN - Fully Assessed Prescriptions as of 05/29/2024 - ferrous sulfate 325 mg (65 mg iron) tablet Take 1 tablet by mouth every other day. - insulin glargine (BASAGLAR KWIKPEN U-100 INSULIN) 100 unit/mL (3 mL) Inject 10 Units subcutaneously daily at bedtime. Will adjust insulin orders as needed and send new RX when dose adjusted - amitriptyline (ELAVIL) 50 mg tablet Take 1 tablet by mouth daily at bedtime. - pyridoxine, vitamin B6, (VITAMIN B-6) 50 mg tablet Take 1 tablet by mouth once daily. - dextrose 40 % gel Take 15 g by mouth as needed. - zinc sulfate 220 mg (50 mg zinc) capsule Take 1 capsule by mouth once daily for 7 doses. - polyethylene glycol 3350 17 gram packet Take 1 Packet by mouth once daily as needed for constipation. Dissolve dose in 4 - 8 ounces of liquid and take as directed. - acetaminophen (TYLENOL) 500 mg tablet Take 2 tablets by mouth every 8 hours as needed for pain. - sertraline (ZOLOFT) 100 mg tablet Take 100 mg by mouth daily at bedtime. - atorvastatin (LIPITOR) 80 mg tablet Take 1 tablet by mouth once daily. - lisinopril (ZESTRIL) 10 mg tablet Take 1 tablet by mouth once daily. - metoprolol tartrate, short acting, (LOPRESSOR) 25 mg tablet Take 1 tablet by mouth two times a day. - pantoprazole DR (PROTONIX) 40 mg tablet Take 1 tablet by mouth once daily. - pregabalin (LYRICA) 225 mg capsule Take 1 capsule by mouth three times a day for 180 days. - busPIRone (BUSPAR) 15 mg tablet Take 1 tablet by mouth three times a day. - ezetimibe (ZETIA) 10 mg tablet Take 1 tablet by mouth once daily. - Diaper,Brief, Adult,Disposable Change at least twice daily - amLODIPine (NORVASC) 5 mg tablet Take 1 tablet by mouth once daily. May also take 1 tablet once daily as needed (For BP over 150/95). - metFORMIN (GLUCOPHAGE) 1,000 mg tablet Take 1,000 mg by mouth two times a day with meals. - insulin aspart (NOVOLOG FLEXPEN U-100 INSULIN SUBCUTANEOUS) Inject 2 Units subcutaneously daily at bedtime. - multivit,calc,mins/iron/folic (THERA-M ORAL) Take 1 tablet by mouth daily at 6 am. - loperamide HCl (IMODIUM A-D) 2 mg tab Take 2 mg by mouth every 6 hours as needed (loose stool). Patient should start on March 28, 2024. - dulaglutide (TRULICITY) 1.5 mg/0.5 mL pen injector Inject 1.5 mg subcutaneously one time a week. - insulin aspart U-100 (NOVOLOG FLEXPEN U-100 INSULIN) 100 unit/mL (3 mL) USE SLIDING SCALE ONLY. Sliding scale 150=0, 151-200-1 units, 201-250=2 units, 251-300=3 units, 301-350=4 units, 351-400=5 units based on pre meal blood sugar only as needed. - fluticasone (FLONASE) 50 mcg/actuation nasal spray Use 2 Sprays in each nostril once daily as needed for cold/allergy symptoms. Rinse mouth after use. - DUPIXENT SYRINGE 300 mg/2 mL injection Inject 300 mg subcutaneously every 2 weeks. - ascorbic acid, vitamin C, (VITAMIN C) 500 mg tablet Take 1 tablet by mouth once daily. - aspirin 81 mg cap Take 1 Each by mouth once daily. - Insulin Celeste, Disposable, (PEN NEEDLE) 32 gauge x 5/32 Inject 1 Each subcutaneously every 24 hours. Give with each insulin administration. - blood sugar diagnostic (BLOOD GLUCOSE TEST) test strip Test blood sugar(s) 4 times daily and PRN. Dx: Type 2 DM - Controlled E11.9 Insulin: Yes - Lancets lancets Test blood sugar(s) 4 times daily and prn. Dx: Type 2 DM - Controlled E11.9 Insulin: Yes - alcohol swabs Apply 1 Each to affected area four times daily. - Blood-Glucose Meter 1 Each four times daily. - Cholecalciferol, Vitamin D3, 125 mcg (5,000 unit) cap Take 1 tab daily with food. - melatonin 10 mg cap Take 1 capsule by mouth daily at bedtime. - Blood-Glucose Meter,Continuous (DEXCOM G7 COTTON WEIGHER) [facility] Dispense one chief innovation officer kit. USE FOR CONTINUOUS GLUCOSE MONITORING. MULTIPLE INSULIN INJECTIONS. E11.9 - Blood-Glucose Sensor (DEXCOM G7 SENSOR) kimberly CHANGE SENSOR EVERY 10 days. USE FOR CONTINUOUS GLUCOSE MONITORING. MULTIPLE INSULIN INJECTIONS. E11.9 - cyanocobalamin (VITAMIN B-12) 1,000 mcg tab Take 1 tablet by (more content not included)... [facility] 05-27-2024 Telephone encounter Note Phoned patient and has no voicemail set up, try again later. [facility] 05-26-2024 Telephone encounter Note Please let him know that he is anemic but levels are improving. I sent a prescription in for iron to be taken every other day x 30 doses. Latest Ref Rng 03/26/2024 03/27/2024 05/25/2024 WBC 3.70 - 11.00 k/uL 8.77 9.41 7.33 RBC 4.20 - 6.00 m/uL 3.71 (L) 3.92 (L) 3.93 (L) Hemoglobin 13.0 - 17.0 g/dL 8.6 (L) 9.2 (L) 10.2 (L) Hematocrit 39.0 - 51.0 % 25.5 (L) 26.6 (L) 29.5 (L) MCV 80.0 - 100.0 fL 68.7 (L) 67.9 (L) 75.1 (L) MCH 26.0 - 34.0 pg 23.2 (L) 23.5 (L) 26.0 MCHC 30.5 - 36.0 g/dL 33.7 34.6 34.6 RDW-CV 11.5 - 15.0 % 22.7 (H) 23.3 (H) 24.0 (H) Platelet Count 150 - 400 k/uL 283 295 234 MPV 9.0 - 12.7 fL 9.6 9.5 9.9 Neut% % 58.7 Abs Neut (ANC) 1.45 - 7.50 k/uL 4.30 Lymph% % 32.3 Abs Lymph 1.00 - 4.00 k/uL 2.37 [place]% % 5.3 Abs [place] <0.87 k/uL 0.39 Eosin% % 2.6 Abs Eosin <0.46 k/uL 0.19 Baso% % 1.0 Abs Baso <0.11 k/uL 0.07 Immature Gran % % 0.1 IMMATURE GRANS (ABS) <0.10 k/uL <0.03 NRBC /100 WBC 0.3 Absolute nRBC <0.01 k/uL 0.03 (H) 0.05 (H) 0.02 (H) [employer] Patient's last HgA1C was Hemoglobin A1C (%) Date Value 03/22/2024 7.1 09/13/2023 6.7 Hemoglobin A1C (POCT) (%) Date Value 11/10/2023 6.9 ) [facility] 05-25-2024 Telephone encounter Note Patient was seen today by Mike BERTRAND and when leaving patient wanted to know if his next [address] Chery could be virtual appointment. Please advise if one or more appointments can be virtuals [facility] 05-25-2024 Note HNO ID: [id number] Author: MIKE CANDELARIO APRN.CNS Service: ? Author Type: Nurse Specialist Type: Progress Notes Filed: 05/25/2024 11:28 Note Text: SUBJECTIVE: Dilated Retinal Exam Never done DTaP,Tdap,Td Vaccine(1 - Tdap) Never done Shingrix Vaccine(1 of 2) Never done Colorectal Cancer Screening Never done Lung Cancer Screening Never done Hepatitis B Vaccine(2 of 3 - 19+ 3-dose series) due on 02/27/2022 LDL Cholesterol due on 01/30/2023 Diabetic Foot Exam due on 11/12/2023 Urine Albumin:Creatinine Ratio due on 05/19/2024 HPI Berta Jaramillo is a 59 year old male. PMH significant for ACTIVE PROBLEM LIST Neuropathy Essential Hypertension Type 2 Diabetes Mellitus, With Long-Term Current Use of Insulin (Hcc) Depression, Recurrent (Hcc) Atopic Eczema Rheumatoid Arthritis, Involving Unspecified Site, Unspecified Whether Rheumatoid Factor Present (Hcc) Decubitus Ulcer of Left Buttock, Stage 3 (Hcc) Gastroesophageal Reflux Disease Without Esophagitis Hypercholesterolemia Benign Prostatic Hyperplasia With Urinary Hesitancy Nicotine use disorder, F17.2 Obesity, Class I, Bmi 30-34.9 Iron Deficiency Anemia Anxiety Status Post Amputation of Right Great Toe ([facility]) Vitamin B6 Deficiency (Non Anemic) Presents today noting increased abnormal sensation in both lower extremities, his whole leg consistent with neuropathy. Continues with pregabalin 225 mg three times per day. Review of med list shows that amitriptyline was discontinued. He had PVRs 2023. He reports limited walking due to neuropathy of both lower extremities. Has a power wheelchair. He is interested in seeing pain management provider for his neuropathy. He underwent amputation of toes on right foot, has noted decreased mood since then. He was taking amitriptyline but this was discontinued. Using CGM, [employer]. DIABETES MELLITUS: Without excessive thirst or increased frequency of urination, chest pain or dyspnea , numbness, tingling or pain in extremities, new or unusual visual symptoms, low sugar/hypoglycemic reactions, weight loss/gain, lightheadedness/dizziness, and bowel changes/loose stools. Patient's last HgA1C was Hemoglobin A1C (%) Date Value 03/22/2024 7.1 09/13/2023 6.7 Hemoglobin A1C (POCT) (%) Date Value 11/10/2023 6.9 ) Hyperlipidemia. Mr. Jaramillo reports doing well on current therapy . His most recent lipid panels are: Cholesterol, Total (mg/dL) Date Value 01/30/2022 72 HDL Cholesterol (mg/dL) Date Value 01/30/2022 26 LDL Cholesterol (mg/dL) Date Value 01/30/2022 20 Triglyceride (mg/dL) Date Value 01/30/2022 129 HTN: Without report of headache, chest pain, palpitations, dyspnea, peripheral edema, orthopnea, fatigue, and PND. Last 14 Encounter BP Readings: Date: BP: 05/25/2024 111/68 04/14/2024 122/70 04/10/2024 118/70 03/30/2024 120/80 03/29/2024 112/64 03/28/2024 104/58 03/24/2024 121/77 03/24/2024 111/70 03/22/2024 114/63 02/18/2024 107/64 11/23/2023 94/56[Using BP Monitor[ 09/13/2023 122/68 06/16/2023 146/72 06/07/2023 101/60 GERD: no current complaints Review of Systems Constitutional: Negative. Musculoskeletal: Positive for arthralgias, back pain and gait problem. Neurological: Positive for numbness. Objective BP 111/68 Pulse 90 Resp 16 Wt 99.8 kg (220 lb) BMI 32.49 kg/m? Physical Exam Vitals and nursing note reviewed. Constitutional: Appearance: Normal appearance. HENT: Head: Normocephalic and atraumatic. Mouth/Throat: Lips: [place]. Mouth: Mucous membranes are moist. Dentition: Dental caries present. Pharynx: Oropharynx is clear. Tonsils: No tonsillar exudate. Comments: multiple tooth loss Eyes: Conjunctiva/sclera: Conjunctivae normal. Neck: Thyroid: No thyromegaly. Vascular: Normal carotid pulses. No JVD. Cardiovascular: Rate and Rhythm: Normal rate and regular rhythm. Heart sounds: Normal heart sounds. Pulmonary: Effort: Pulmonary effort is normal. Breath sounds: Normal breath sounds. Abdominal: General: Bowel sounds are normal. Palpations: Abdomen is soft. Feet: Comments: Nonpalpable DP right foot. Foot is warm. Skin: General: Skin is warm and dry. Neurological: General: No focal deficit present. Mental Status: He is alert. ALLERGIES No Known Allergies Medications dextrose 40 % gel Take 15 g by mouth as needed. (Patient taking differently: Take 15 g by mouth as needed (Hypogylcemia (below 30)).) polyethylene glycol 3350 17 gram packet Take 1 Packet by mouth once daily as needed for constipation. Dissolve dose in 4 - 8 ounces of liquid and take as directed. acetaminophen (TYLENOL) 500 mg tablet Take 2 tablets by mouth every 8 hours as needed for pain. sertraline (ZOLOFT) 100 mg tablet Take 100 mg by mouth daily at bedtime. atorvastatin (LIPITOR) 80 mg tablet Take 1 tablet by mouth once daily. lisinopril (ZESTRIL) 10 mg tablet Take 1 tablet by mouth o (more content not included)... [facility] 05-25-2024 History of Present illness Narrative SUBJECTIVE: Dilated Retinal Exam Never done DTaP,Tdap,Td Vaccine(1 - Tdap) Never done Shingrix Vaccine(1 of 2) Never done Colorectal Cancer Screening Never done Lung Cancer Screening Never done Hepatitis B Vaccine(2 of 3 - 19+ 3-dose series) due on 02/27/2022 LDL Cholesterol due on 01/30/2023 Diabetic Foot Exam due on 11/12/2023 Urine Albumin:Creatinine Ratio due on 05/19/2024 HPI Berta Jaramillo is a 59 year old male. PMH significant for ACTIVE PROBLEM LIST Neuropathy Essential Hypertension Type 2 Diabetes Mellitus, With Long-Term Current Use of Insulin (Hcc) Depression, Recurrent (Hcc) Atopic Eczema Rheumatoid Arthritis, Involving Unspecified Site, Unspecified Whether Rheumatoid Factor Present (Hcc) Decubitus Ulcer of Left Buttock, Stage 3 (Hcc) Gastroesophageal Reflux Disease Without Esophagitis Hypercholesterolemia Benign Prostatic Hyperplasia With Urinary Hesitancy Nicotine use disorder, F17.2 Obesity, Class I, Bmi 30-34.9 Iron Deficiency Anemia Anxiety Status Post Amputation of Right Great Toe (Hcc) Vitamin B6 Deficiency (Non Anemic) Presents today noting increased abnormal sensation in both lower extremities, his whole leg consistent with neuropathy. Continues with pregabalin 225 mg three times per day. Review of med list shows that amitriptyline was discontinued. He had PVRs 2023. He reports limited walking due to neuropathy of both lower extremities. Has a power wheelchair. He is interested in seeing pain management provider for his neuropathy. He underwent amputation of toes on right foot, has noted decreased mood since then. He was taking amitriptyline but this was discontinued. Using CGM, [employer]. DIABETES MELLITUS: Without excessive thirst or increased frequency of urination, chest pain or dyspnea , numbness, tingling or pain in extremities, new or unusual visual symptoms, low sugar/hypoglycemic reactions, weight loss/gain, lightheadedness/dizziness, and bowel changes/loose stools. Patient's last HgA1C was Hemoglobin A1C (%) Date Value 03/22/2024 7.1 09/13/2023 6.7 Hemoglobin A1C (POCT) (%) Date Value 11/10/2023 6.9 ) Hyperlipidemia. Mr. Jaramillo reports doing well on current therapy . His most recent lipid panels are: Cholesterol, Total (mg/dL) Date Value 01/30/2022 72 HDL Cholesterol (mg/dL) Date Value 01/30/2022 26 LDL Cholesterol (mg/dL) Date Value 01/30/2022 20 Triglyceride (mg/dL) Date Value 01/30/2022 129 HTN: Without report of headache, chest pain, palpitations, dyspnea, peripheral edema, orthopnea, fatigue, and PND. Last 14 Encounter BP Readings: Date: BP: 05/25/2024 111/68 04/14/2024 122/70 04/10/2024 118/70 03/30/2024 120/80 03/29/2024 112/64 03/28/2024 104/58 03/24/2024 121/77 03/24/2024 111/70 03/22/2024 114/63 02/18/2024 107/64 11/23/2023 94/56[Using BP Monitor[ 09/13/2023 122/68 06/16/2023 146/72 06/07/2023 101/60 GERD: no current complaints Review of Systems Constitutional: Negative. Musculoskeletal: Positive for arthralgias, back pain and gait problem. Neurological: Positive for numbness. Objective BP 111/68 Pulse 90 Resp 16 Wt 99.8 kg (220 lb) BMI 32.49 kg/m Physical Exam Vitals and nursing note reviewed. Constitutional: Appearance: Normal appearance. HENT: Head: Normocephalic and atraumatic. Mouth/Throat: Lips: [place]. Mouth: Mucous membranes are moist. Dentition: Dental caries present. Pharynx: Oropharynx is clear. Tonsils: No tonsillar exudate. Comments: multiple tooth loss Eyes: Conjunctiva/sclera: Conjunctivae normal. Neck: Thyroid: No thyromegaly. Vascular: Normal carotid pulses. No JVD. Cardiovascular: Rate and Rhythm: Normal rate and regular rhythm. Heart sounds: Normal heart sounds. Pulmonary: Effort: Pulmonary effort is normal. Breath sounds: Normal breath sounds. Abdominal: General: Bowel sounds are normal. Palpations: Abdomen is soft. Feet: Comments: Nonpalpable DP right foot. Foot is warm. Skin: General: Skin is warm and dry. Neurological: General: No focal deficit present. Mental Status: He is alert. ALLERGIES No Known Allergies Medications dextrose 40 % gel Take 15 g by mouth as needed. (Patient taking differently: Take 15 g by mouth as needed (Hypogylcemia (below 30)).) polyethylene glycol 3350 17 gram packet Take 1 Packet by mouth once daily as needed for constipation. Dissolve dose in 4 - 8 ounces of liquid and take as directed. acetaminophen (TYLENOL) 500 mg tablet Take 2 tablets by mouth every 8 hours as needed for pain. sertraline (ZOLOFT) 100 mg tablet Take 100 mg by mouth daily at bedtime. atorvastatin (LIPITOR) 80 mg tablet Take 1 tablet by mouth once daily. lisinopril (ZESTRIL) 10 mg tablet Take 1 tablet by mouth once daily. metoprolol tartrate, short acting, (LOPRESSOR) 25 mg tablet Take 1 tablet by mouth two times a day. pantoprazole DR (PROTONIX) 40 mg tablet Take 1 tablet by mouth once daily. pregabalin (LYRICA) 225 mg capsule Take 1 capsule by mouth three times a day for 180 days. busPIRone (BUSPAR) 15 mg tablet Take 1 tablet by mouth three times a day. ezetimibe (ZETIA) 10 mg tablet Take 1 tablet by mouth once daily. Diaper,Brief, Adult,Disposable Change at least twice daily amLODIPine (NORVASC) 5 mg tablet Take 1 tablet by mouth once daily. May also take 1 tablet once daily as needed (For BP over 150/95). insulin glargine (BASAGLAR KWIKPEN U-100 INSULIN) 100 unit/mL (3 mL) Inject 10 Units subcutaneously daily at bedtime. Will adjust insulin orders as needed and send new RX when dose adjusted metFORMIN (GLUCOPHAGE) 1,000 mg tablet Take 1,000 mg by mouth two times a day with meals. insulin aspart (NOVOLOG FLEXPEN U-100 INSULIN SUBCUTANEOUS) Inject 2 Units subcutaneously daily at bedtime. multivit,calc,mins/iron/folic (THERA-M ORAL) Take 1 tablet by mouth daily at 6 am. loperamide HCl (IMODIUM A-D) 2 mg tab Take 2 mg by mouth every 6 hours as needed (loose stool). Patient should start on March 28, 2024. dulaglutide (TRULICITY) 1.5 mg/0.5 mL pen injector Inject 1.5 mg subcutaneously one time a week. insulin aspart U-100 (NOVOLOG FLEXPEN U-100 INSULIN) 100 unit/mL (3 mL) USE SLIDING SCALE ONLY. Sliding scale 150=0, 151-200-1 units, 201-250=2 units, 251-300=3 units, 301-350=4 units, 351-400=5 units based on pre meal blood sugar only as needed. (Patient taking differently: Inject 1 Units subcutaneously three times a day before meals. Sliding scale 0-150=0, 151-200=1 units, 201-250=2 units 251-300=3 units, 301-350=4 units, 351-400=5 401 or above notify MD.) fluticasone (FLONASE) 50 mcg/actuation nasal spray Use 2 Sprays in each nostril once daily as needed for cold/allergy symptoms. Rinse mouth after use. DUPIXENT SYRINGE 300 mg/2 mL injection Inject 300 mg subcutaneously every 2 weeks. ascorbic acid, vitamin C, (VITAMIN C) 500 mg tablet Take 1 tablet by mouth once daily. aspirin 81 mg cap Take 1 Each by mouth once daily. Insulin Celeste, Disposable, (PEN NEEDLE) 32 gauge x 5/32 Inject 1 Each subcutaneously every 24 hours. Give with each insulin administration. blood sugar diagnostic (BLOOD GLUCOSE TEST) test strip Test blood sugar(s) 4 times daily and PRN. Dx: Type 2 DM - Controlled E11.9 Insulin: Yes Lancets lancets Test blood sugar(s) 4 times daily and prn. Dx: Type 2 DM - Controlled E11.9 Insulin: Yes alcohol swabs Apply 1 Each to affected area four times daily. Blood-Glucose Meter 1 Each four times daily. Cholecalciferol, Vitamin D3, 125 mcg (5,000 unit) cap Take 1 tab daily with food. (Patient taking differently: Take 5,000 Units by mouth once daily. Take 1 tab daily with food.) melatonin 10 mg cap Take 1 capsule by mouth daily at bedtime. Blood-Glucose Meter,Continuous (DEXCOM G7 COTTON WEIGHER) [facility] Disp[employer] one chief innovation officer kit. USE FOR CONTINUOUS GLUCOSE MONITORING. MULTIPLE INSULIN INJECTIONS. E11.9 Blood-Glucose Sensor (DEXCOM G7 SENSOR) kimberly CHANGE SENSOR EVERY 10 days. USE FOR CONTINUOUS GLUCOSE MONITORING. MULTIPLE INSULIN INJECTIONS. E11.9 cyanocobalamin (VITAMIN B-12) 1,000 mcg tab Take 1 tablet by mouth once daily. ondansetron orally disintegrating (ZOFRAN ODT) 4 mg disintegrating tablet Take 4 mg by mouth every 8 hours as needed for nausea/vomiting. tamsulosin (FLOMAX) 0.4 mg Take 2 capsules by mouth once daily. sucralfate (CARAFATE) 1 gram tablet Take 1 tablet by mouth four times daily. leflunomide (ARAVA) 10 mg tablet Take 1 tablet by mouth once daily. pen needle, diabetic, safety 31 gauge x 5/16 ndle Use as directed with insulin pen Blood-Glucose Transmitter (DEXCOM G6 TRANSMITTER) kimberly Apply new transmitter every 90 days. Clean transmitter with an alcohol swab with each sensor change. meclizine (ANTIVERT) 25 mg tab Take 1 tablet by mouth every 6 hours as needed (dizziness). albuterol HFA (PROVENTIL HFA, VENTOLIN HFA) 90 mcg/actuation inhaler Inhale 2 Puffs as instructed every 4 hours as needed for wheezing/shortness of breath. Lancets lancets Test blood sugar(s) 1 times daily and as needed. Dx: Type 2 DM - Controlled E11.9 Insulin: No amitriptyline (ELAVIL) 50 mg tablet Take 1 tablet by mouth daily at bedtime. pyridoxine, vitamin B6, (VITAMIN B-6) 50 mg tablet Take 1 tablet by mouth once daily. zinc sulfate 220 mg (50 mg zinc) capsule Take 1 capsule by mouth once daily for 7 doses. PAST MEDICAL HISTORY Diagnosis Date Atopic eczema Benign prostatic hyperplasia with urinary hesitancy Chronic anemia Depression Depression Diabetes mellitus (HCC) Essential hypertension Gastroesophageal reflux disease without esophagitis Generalized anxiety disorder Hypercholesterolemia Neuropathy Osteomyelitis of right foot (HCC) Tobacco use Social History Tobacco Use Smoking status: Every Day Current packs/day: 1.00 Average packs/day: 1.5 packs/day for 43.1 years (64.4 ttl pk-yrs) Types: Cigarettes Start date: 1981 Smokeless tobacco: Never Vaping Use Vaping status: Never Used Substance Use Topics Alcohol use: Never Drug use: Never Latest Ref Rng 03/26/2024 03/27/2024 Protein, Total 6.3 - 8.0 g/dL 6.6 7.1 Albumin 3.9 - 4.9 g/dL 3.4 (L) 3.6 (L) Calcium 8.5 - 10.2 mg/dL 8.9 9.0 Bilirubin, Total 0.2 - 1.3 mg/dL <0.2 (L) <0.2 (L) Alkaline Phosphatase 38 - 113 U/L 116 (H) 118 (H) AST 14 - 40 U/L 9 (L) 12 (L) ALT 10 - 54 U/L <5 (L) <5 (L) Glucose 74 - 99 mg/dL 226 (H) 241 (H) BUN 9 - 24 mg/dL 10 11 Creatinine 0.73 - 1.22 mg/dL 1.03 1.07 Sodium 136 - 144 mmol/L 138 137 Potassium 3.7 - 5.1 mmol/L 5.3 (H) 4.6 Chloride 98 - 107 mmol/L 102 101 CO2 22 - 30 mmol/L 29 28 Anion Gap 8 - 15 mmol/L 7 (L) 8 eGFR >=60 mL/min/1.73m 85 81 WBC 3.70 - 11.00 k/uL 8.77 9.41 RBC 4.20 - 6.00 m/uL 3.71 (L) 3.92 (L) Hemoglobin 13.0 - 17.0 g/dL 8.6 (L) 9.2 (L) Hematocrit 39.0 - 51.0 % 25.5 (L) 26.6 (L) MCV 80.0 - 100.0 fL 68.7 (L) 67.9 (L) MCH 26.0 - 34.0 pg 23.2 (L) 23.5 (L) MCHC 30.5 - 36.0 g/dL 33.7 34.6 RDW-CV 11.5 - 15.0 % 22.7 (H) 23.3 (H) Platelet Count 150 - 400 k/uL 283 295 MPV 9.0 - 12.7 fL 9.6 9.5 Absolute nRBC <0.01 k/uL 0.03 (H) 0.05 (H) Phosphorus 2.7 - 4.8 mg/dL 2.5 (L) 3.0 Magnesium 1.7 - 2.3 mg/dL 1.8 1.8 Glucose, Point of Care 74 - 99 mg/dL 294 ! ASSESSMENT/PLAN: 1. Type 2 diabetes mellitus, with long-term current use of insulin (HCC) - ICD9: 250.00, V58.67, ICD10: E11.9, Z79.4 (primary diagnosis) controlled - Continue current medications - LIPID PANEL BASIC - ALBUMIN/CREATININE RATIO, URINE - CONSULT TO OPHTHALMOLOGY - LIPID PANEL, NONFASTING - COMPLETE BLOOD COUNT AND DIFFERENTIAL 2. Screening for diabetic retinopathy - ICD9: V80.2, ICD10: Z13.5 Notes he is in need of ophthalmology provider - CONSULT TO OPHTHALMOLOGY 4. Encounter for screening for lung cancer - ICD9: V76.0, ICD10: Z12.2 Current smoker, has cut back, endorse cessation. Endorse completing lung cancer screening clinic. - CONSULT LUNG CANCER SCREENING CLINIC 5. Depression, unspecified depression type - ICD9: 311, ICD10: F32.A He notes increased depression since his amputation. Recommend resuming amitriptyline. Consider seeing counselor or psychology. - AMITRIPTYLINE 50 MG TABLET - CONSULT TO PSYCHOLOGY 6. Peripheral polyneuropathy - ICD9: 356.9, ICD10: G62.9 Amitriptyline was discontinued for some reason, recommend resuming for neuropathy. He is interested in pain management provider so I will place consult. - AMITRIPTYLINE 50 MG TABLET - CONSULT TO PAIN MGT 7. Iron deficiency anemia, unspecified iron deficiency anemia type - ICD9: 280.9, ICD10: D50.9 - COMPLETE BLOOD COUNT AND DIFFERENTIAL 8. Encounter for immunization - ICD9: V03.89, ICD10: Z23 - PFIZER-BIONTECH COVID-19 VACCINE AGE 12+ YR (COMIRNATY) - HEP B VACCINE, 3-DOSE, AGE 20+ YR (ENGERIX-B, RECOMBIVAX HB) Keep 3 month follow up Rachel Chery MD Labs today Mike Candelario, AILIN.UNATTENDED GROUND SENSOR SPECIALIST Medical Decision Making: Problems: Moderate: 1+ chronic illnesses with change Data: Unique test(s) ordered: 3+ Risk: Moderate: Drug management Medical Decision Making Level: 4 - Moderate documented in this encounter [facility] 04-14-2024 Miscellaneous Notes SITUATION: Assisted agency discharge visit completed today. only patient present during today's visit. patient reports the following: Allergies--reviewed Medications--reviewed current medications Falls--None BACKGROUND: Reason for Home Care: R great toe ambputation ASSESSMENT: SN greeted at door by patient utilizing power Chair Patient appears in no acute distress. Patient/CG concerns verbalized today: no special concerns Vitals (see flow sheet for details): stable SN findings today: Pt in power chair. He reports that nursing staff [facility] have been helping him with wound care and the wound is healing well. SN was able to do wound care today and the incision to R great toe area is well approximated, sutures are intact, there is no drainage on removed dressing and pt reports that there has not been any drainage since surgery. He is comfortable with having [facility] taff assist him and will have sutures out next week by podiatry. He does not feel that home care services are needed. See intervention summary for education details and any skills performed. Specific SN discharge instructions: Continue to have wound care done every other day. Keep appt for suture removal on 04/18 (pt seeing podiatry in [place]). Keep R foot clean and dry, NWB except for heel to transfer. Notify podiatry if any fever, wound drainage or increased pain. Patient encouraged to take all medication as ordered, eat a well-balanced diet and follow up with all physician appointments. NOMNC: patient requested discharge today Discharged due to no further SN skilled need. Patient discharged from Home Care to: self-care RECOMMENDATION: Additional follow ups recommended: None Patient to follow up with Dr. Chery for additional medical questions/concerns. documented in this encounter [facility] 04-14-2024 Patient's home Note SITUATION: Assisted agency discharge visit completed today. only patient present during today's visit. patient reports the following: Allergies--reviewed Medications--reviewed current medications Falls--None BACKGROUND: Reason for Home Care: R great toe ambputation ASSESSMENT: SN greeted at door by patient utilizing power Chair Patient appears in no acute distress. Patient/CG concerns verbalized today: no special concerns Vitals (see flow sheet for details): stable SN findings today: Pt in power chair. He reports that nursing staff at [facility] have been helping him with wound care and the wound is healing well. SN was able to do wound care today and the incision to R great toe area is well approximated, sutures are intact, there is no drainage on removed dressing and pt reports that there has not been any drainage since surgery. He is comfortable with having [place] taff assist him and will have sutures out next week by podiatry. He does not feel that home care services are needed. See intervention summary for education details and any skills performed. Specific SN discharge instructions: Continue to have wound care done every other day. Keep appt for suture removal on 04/18 (pt seeing podiatry in [place]). Keep R foot clean and dry, NWB except for heel to transfer. Notify podiatry if any fever, wound drainage or increased pain. Patient encouraged to take all medication as ordered, eat a well-balanced diet and follow up with all physician appointments. NOMNC: patient requested discharge today Discharged due to no further SN skilled need. Patient discharged from Home Care to: self-care RECOMMENDATION: Additional follow ups recommended: None Patient to follow up with Dr. Chery for additional medical questions/concerns. [facility] Work Phone: 04-10-2024 Miscellaneous Notes SITUATION: Assisted routine visit completed today. only patient also present during today's visit. patient reports the following: Allergies--reviewed Medications--reviewed current medications Falls--None DME-Reviewed BACKGROUND: Reason for Home Care: s/p amputation ASSESSMENT: SN greeted at door by patient utilizing wheelchair Patient appears in no acute distress. Patient/CG concerns verbalized today: none Vitals (see flow sheet for details): stable SN findings today: Pleasant and cooperative with care this visit. Pt express some imporvement to his depression but express he has noted it has increased over the holidays. Pt expressing no recent feeling of suicidal thoughts. Educated to continue with current meds, find a support group or person as needed for depressive thoughts or feelings, alternative techniques such as meditation or relaxation suggested. Pt express he went fot his followmup and het expres his suturesz should be reemoved next week. pt express the facility Nurse changed his dressing last noght he express he will stop the nurse from changing his dressing so SN can see next visit. pt express he did get his supplies this SN orderd, Pt express his wound has been clean dry and sutures are intact. reinforced on s/s of infection and to repor changes to [facility]. Pt expressed understanding See intervention summary for education details. Patient demonstrated a need for further skilled SN services for chronic disease management & education, medication education, wound/skin care and safety. Current Discharge plan: self-care and family support RECOMMENDATION: Next visit to focus on (be specific): dressing change documented in this encounter [facility] 04-10-2024 Patient's home Note SITUATION: Assisted routine visit completed today. only patient also present during today's visit. patient reports the following: Allergies--reviewed Medications--reviewed current medications Falls--None DME-Reviewed BACKGROUND: Reason for Home Care: s/p amputation ASSESSMENT: SN greeted at door by patient utilizing wheelchair Patient appears in no acute distress. Patient/CG concerns verbalized today: none Vitals (see flow sheet for details): stable SN findings today: Pleasant and cooperative with care this visit. Pt express some imporvement to his depression but express he has noted it has increased over the holidays. Pt expressing no recent feeling of suicidal thoughts. Educated to continue with current meds, find a support group or person as needed for depressive thoughts or feelings, alternative techniques such as meditation or relaxation suggested. Pt express he went fot his followmup and het expres his suturesz should be reemoved next week. pt express the facility Nurse changed his dressing last noght he express he will stop the nurse from changing his dressing so SN can see next visit. pt express he did get his supplies this SN orderd, Pt express his wound has been clean dry and sutures are intact. reinforced on s/s of infection and to repor changes to [facility]. Pt expressed understanding See intervention summary for education details. Patient demonstrated a need for further skilled SN services for chronic disease management & education, medication education, wound/skin care and safety. Current Discharge plan: self-care and family support RECOMMENDATION: Next visit to focus on (be specific): dressing change [facility] Work Phone: 04-07-2024 Telephone encounter Note Noted [facility] 04-07-2024 Miscellaneous Notes Noted Hi Dr. Chery, I evaluated Mr. Jaramillo for occupational therapy services on 03/30/24. His fasting blood sugar at that time was 211. The staff at the Assisted Living Facility are assisting him with administering his insulin but I needed to let you know that he was out of our max 170 parameter. Thanks! ARTEMIO Lyons, OTR/L documented in this encounter [facility] 03-31-2024 Miscellaneous Notes SITUATION: Assisted routine visit completed today. only patient also present during today's visit. patient reports the following: Allergies--reviewed Medications--reviewed current medications Falls--None DME-Reviewed BACKGROUND: Reason for Home Care: wound care s/p amputation ASSESSMENT: SN greeted at door by patient in bed Patient appears in no acute distress. Patient/CG concerns verbalized today: none Vitals (see flow sheet for details): stable SN findings today: Pt presents today in his home he is in his bed, Pt express his foot has been hurting him and he is resting. Pt wound care done by the staff at facility prior to SN arrive. Pt wound is clean and dry with sutures present. Educated pt on s/s of infection, and when to notify [facility] of changes to wound. SN ordered supplies from [facility] this visit. Pt expressed understanding See intervention summary for education details. Patient demonstrated a need for further skilled SN services for chronic disease management & education, medication education, wound/skin care and safety. Current Discharge plan: self-care and family support RECOMMENDATION: Next visit to focus on (be specific): wound care documented in this encounter [facility] 03-31-2024 Patient's home Note SITUATION: Assisted routine visit completed today. only patient also present during today's visit. patient reports the following: Allergies--reviewed Medications--reviewed current medications Falls--None DME-Reviewed BACKGROUND: Reason for Home Care: wound care s/p amputation ASSESSMENT: SN greeted at door by patient in bed Patient appears in no acute distress. Patient/CG concerns verbalized today: none Vitals (see flow sheet for details): stable SN findings today: Pt presents today in his home he is in his bed, Pt express his foot has been hurting him and he is resting. Pt wound care done by the staff at facility prior to SN arrive. Pt wound is clean and dry with sutures present. Educated pt on s/s of infection, and when to notify [facility] of changes to wound. SN ordered supplies from [facility] this visit. Pt expressed understanding See intervention summary for education details. Patient demonstrated a need for further skilled SN services for chronic disease management & education, medication education, wound/skin care and safety. Current Discharge plan: self-care and family support RECOMMENDATION: Next visit to focus on (be specific): wound care [facility] Work Phone: 03-30-2024 Telephone encounter Note Hi Dr. Chery, I evaluated Mr. Jaramillo for occupational therapy services on 03/30/24. His fasting blood sugar at that time was 211. The staff at the Assisted Living Facility are assisting him with administering his insulin but I needed to let you know that he was out of our max 170 parameter. Thanks! John Cadena, MOT, OTR/L [facility] Work Phone: 03-30-2024 Miscellaneous Notes OT contacted Dr. chery on 03/30/24 for the following: pt's fasting blood sugar was 211. New orders: None Follow up needed: None Facility staff assist pt was managing blood sugars SITUATION: Pt in bed upon arrival. Nursing staff let therapist into pt's apt. Pt in no apparent distress. only patient present during today's visit. patient reports the following since the last homecare visit: medications/allergies--no changes, no fall. BACKGROUND: Diagnoses or reason for home care: right great toe amputation wound care Any one of the comorbidities from the list below may have a deleterious effect on the primary home care diagnosis.- (this is from problem list in snapshot)- .prob Right hallux osteomyelitis (HCC) Active Problems: Nicotine use disorder, F17.2 Essential hypertension Type 2 diabetes mellitus, with long-term current use of insulin (HCC) Obesity, Class I, BMI 30-34.9 Gastroesophageal reflux disease without esophagitis Iron deficiency anemia Rheumatoid arthritis, involving unspecified site, unspecified whether rheumatoid factor present (HCC) Benign prostatic hyperplasia with urinary hesitancy Depression, recurrent (HCC) Anxiety SPECIFIC ORDERS Fall Risk Right Lower Extremity Weight Bearing Status: Heel Weight Bearing (for transfers only, otherwise NWB) ASSESSMENT: PLOF: Pt was Indep with self care. He has a power w/c for 7 years. He was fixing light meals, cleaning apt and was taking public transportation to [facility] apts provided by insurance. Social situation: Pt lives in 2nd floor of [facility]. Staff manage meds and provide meals. Pt reports no local family and does not have anyone else to assist him, Barriers: limited WB on R foot. D/C: To remain in [facility] Patient evaluated by [facility] occupational therapy. Reviewed and explained homecare services. Plan of care, goals and visit frequency developed, reviewed, and agreed upon with patient and/or caregiver. Patient identified goals: to be independent. Pt scored 70/100 on the Modified Johanna Index. He is currently reporting that he is at his baseline LOF and declines further skilled OT services. Pt has facility staff present 24 hours a day who help with meds and monitoring blood sugars. He has a call light in bathroom that staff monitor 24 hours a day. 1 time eval only. Current Discharge Plan:[facility] with staff assist. Anticipate discharge by 03/30/24 RECOMMENDATION: Plan for next visit to focus on N/a - 1 time eval only. . See intervention summary for intervention/education details. documented in this encounter [facility] 03-30-2024 Patient's home Note OT contacted Dr. chery on 03/30/24 for the following: pt's fasting blood sugar was 211. New orders: None Follow up needed: None Facility staff assist pt was managing blood sugars [facility] Work Phone: 03-30-2024 Patient's home Note SITUATION: Pt in bed upon arrival. Nursing staff let therapist into pt's apt. Pt in no apparent distress. only patient present during today's visit. patient reports the following since the last homecare visit: medications/allergies--no changes, no fall. BACKGROUND: Diagnoses or reason for home care: right great toe amputation wound care Any one of the comorbidities from the list below may have a deleterious effect on the primary home care diagnosis.- (this is from problem list in snapshot)- .prob Right hallux osteomyelitis (HCC) Active Problems: Nicotine use disorder, F17.2 Essential hypertension Type 2 diabetes mellitus, with long-term current use of insulin (HCC) Obesity, Class I, BMI 30-34.9 Gastroesophageal reflux disease without esophagitis Iron deficiency anemia Rheumatoid arthritis, involving unspecified site, unspecified whether rheumatoid factor present (HCC) Benign prostatic hyperplasia with urinary hesitancy Depression, recurrent (HCC) Anxiety SPECIFIC ORDERS Fall Risk Right Lower Extremity Weight Bearing Status: Heel Weight Bearing (for transfers only, otherwise NWB) ASSESSMENT: PLOF: Pt was Indep with self care. He has a power w/c for 7 years. He was fixing light meals, cleaning apt and was taking public transportation to apts provided by insurance. Social situation: Pt lives in [facility]nd floor of [facility]. Staff manage meds and provide meals. Pt reports no local family and does not have anyone else to assist him, Barriers: limited WB on R foot. D/C: To remain in [facility] Patient evaluated by [facility] occupational therapy. Reviewed and explained homecare services. Plan of care, goals and visit frequency developed, reviewed, and agreed upon with patient and/or caregiver. Patient identified goals: to be independent. Pt scored 70/100 on the Modified Johanna Index. He is currently reporting that he is at his baseline LOF and declines further skilled OT services. Pt has facility staff present 24 hours a day who help with meds and monitoring blood sugars. He has a call light in bathroom that staff monitor 24 hours a day. 1 time eval only. Current [facility]charge Plan:[facility] with staff assist. Anticipate discharge by 03/30/24 RECOMMENDATION: Plan for next visit to focus on N/a - 1 time eval only. . See intervention summary for intervention/education details. [facility] 03-29-2024 Miscellaneous Notes SITUATION: only patient present during today's visit. patient reports the following since the last homecare visit: medications/allergies--no changes, no fall. patient reports that he is taking it easy because i really want this to heal . BACKGROUND: Diagnoses (reason for Home Care): [facility] 03/22/24 on 03/27/2024 . right great toe amputation wound care ACTIVE PROBLEMS Right hallux osteomyelitis (HCC) Active Problems: Nicotine use disorder, F17.2 Essential hypertension Type 2 diabetes mellitus, with long-term current use of insulin (HCC) Obesity, Class I, BMI 30-34.9 Gastroesophageal reflux disease without esophagitis Iron deficiency anemia Rheumatoid arthritis, involving unspecified site, unspecified whether rheumatoid factor present (HCC) Benign prostatic hyperplasia with urinary hesitancy Depression, recurrent (HCC) Anxiety SPECIFIC ORDERS Fall Risk, Weight Bearing Restrictions Right Lower Extremity Weight Bearing Status: Heel Weight Bearing (for transfers only, otherwise NWB) HOME: [place], accessible apt. - elevator PLF: PC dept x x 7 years due to neuropathy . pt indep with self care and transfers. [facility] completes heavy cleaning ( vacuuming, mopping) . and meds. ASSESSMENT: Patient evaluated by [facility] physical therapy. Reviewed and explained homecare services. Plan of care, goals, and visit frequency developed, reviewed, and agreed upon with patient and/or caregiver. Patient Goal: heal this wound Current Discharge Plan:independent with home exercise program. Anticipate discharge by 03/29/24 RECOMMENDATION: No further skilled PT need at this time pt is currently functioning at his baseline See intervention summary for intervention/education details. documented in this encounter [facility] 03-29-2024 Patient's home Note SITUATION: only patient present during today's visit. patient reports the following since the last homecare visit: medications/allergies--no changes, no fall. patient reports that he is taking it easy because i really want this to heal . BACKGROUND: Diagnoses (reason for Home Care): [facility] 03/22/24 on 03/27/2024 . right great toe amputation wound care ACTIVE PROBLEMS Right hallux osteomyelitis (HCC) Active Problems: Nicotine use disorder, F17.2 Essential hypertension Type 2 diabetes mellitus, with long-term current use of insulin (HCC) Obesity, Class I, BMI 30-34.9 Gastroesophageal reflux disease without esophagitis Iron deficiency anemia Rheumatoid arthritis, involving unspecified site, unspecified whether rheumatoid factor present (HCC) Benign prostatic hyperplasia with urinary hesitancy Depression, recurrent (HCC) Anxiety SPECIFIC ORDERS Fall Risk, Weight Bearing Restrictions Right Lower Extremity Weight Bearing Status: Heel Weight Bearing (for transfers only, otherwise NWB) HOME: [place], accessible apt. - elevator PLF: PC dept x x 7 years due to neuropathy . pt indep with self care and transfers. AL completes heavy cleaning ( vacuuming, mopping) . and meds. ASSESSMENT: Patient evaluated by [facility] physical therapy. Reviewed and explained homecare services. Plan of care, goals, and visit frequency developed, reviewed, and agreed upon with patient and/or caregiver. Patient Goal: heal this wound Current Discharge Plan:independent with home exercise program. Anticipate discharge by 03/29/24 RECOMMENDATION: No further skilled PT need at this time pt is currently functioning at his baseline See intervention summary for intervention/education details. [facility] Work Phone: 03-28-2024 Telephone encounter Note Per Mike BERTRAND, [place] for HHC. Margarita Mireles LPN [facility] 03-28-2024 Miscellaneous Notes Per Mike BERTRAND, [place] for HHC. Margarita Mireles LPN [place] for HHC Amara from [facility] Home Health calls and [facility] is asking if provider willing to follow patient with orders for half-way. Can reply through [facility] and this encounter. See Below. Thank you, iNdhi Wynn RN Rachel Chery MD Please advise if you are agreeable to signing and following for HHC services? Our Clinicians will be sending the Plan of Care to you for review and approval. They will reach out for any appropriate orders required to provide home care services for the patient. We are not able to initiate HHC services without a following provider. Home care clinicians may also obtain orders from [facility] Virtualist Providers Thank you and we would be happy to answer any questions. Amara Russo LPN 03/26/2024 4:30 PM documented in this encounter [facility] 03-28-2024 Miscellaneous Notes SITUATION: Assisted SOC visit completed today. only patient also present during today's visit. patient reports the following: Allergies--reviewed Medications--full medication reconciliation completed Falls--None DME-Reviewed BACKGROUND: Discharged/Referral from [facility] on 03-27-24 following treatment for right great toe amputation wound care Pertinent referral information or other diagnoses that may affect plan of care:Nicotine use disorder, Essential hypertension Type 2 diabetes mellitus, with long-term current use of insulin ([facility]) Obesity, Class I, BMI 30-34.9 ASSESSMENT: SN greeted at door by patient utilizing power Chair Patient appears in no acute distress. Patient lives at home alone. Home environment: clean and cluttered. SOC booklet reviewed & completed with patient and consent obtained for Home Care services. Patient/CG concerns verbalized today: none Vitals (see flow sheet for details): stable SN findings today: Pt prsents today in his home. Pt lievs in an assisted living home pt express he has a nurse avaiable to him daily that admins his medicain to him he express the Nurse will perform dressing changes on Non SN visit days. Pt express he keeps no pills in his apartment. Pt has no dressings in the apartment. Pt has a dressing to his right great toe amputation sutures are present wound is dry. Pt educated on wound management, s/s of infection and when to report changes to [facility]. Pt educated on weight bearing status, home safety and fall prevention. Pt expressed understanding See intervention summary for education details and skills performed. Plan of care and visit frequency established with patient and plan of care agreed upon. Patient demonstrated a need for further skilled SN services for chronic disease management & education, medication education, wound/skin care and safety. RECOMMENDATION: Visit Frequency: 2x4, 1x5 Need for additional services: Patient agreeable to PT and OT referrals. Patient declined N/A referrals. Additional concerns to be followed up on: NONE Next visit to focus on (be specific): wound care documented in this encounter [facility] 03-28-2024 Patient's home Note SITUATION: Assisted SOC visit completed today. only patient also present during today's visit. patient reports the following: Allergies--reviewed Medications--full medication reconciliation completed Falls--None DME-Reviewed BACKGROUND: Discharged/Referral from [facility] on 03-27-24 following treatment for right great toe amputation wound care Pertinent referral information or other diagnoses that may affect plan of care:Nicotine use disorder, Essential hypertension Type 2 diabetes mellitus, with long-term current use of insulin ([facility]) Obesity, Class I, BMI 30-34.9 ASSESSMENT: SN greeted at door by patient utilizing power Chair Patient appears in no acute distress. Patient lives at home alone. Home environment: clean and cluttered. SOC booklet reviewed & completed with patient and consent obtained for Home Care services. Patient/CG concerns verbalized today: none Vitals (see flow sheet for details): stable SN findings today: Pt prsents today in his home. Pt lievs in an assisted living home pt express he has a nurse avaiable to him daily that admins his medicain to him he express the Nurse will perform dressing changes on Non SN visit days. Pt express he keeps no pills in his apartment. Pt has no dressings in the apartment. Pt has a dressing to his right great toe amputation sutures are present wound is dry. Pt educated on wound management, s/s of infection and when to report changes to [facility]. Pt educated on weight bearing status, home safety and fall prevention. Pt expressed understanding See intervention summary for education details and skills performed. Plan of care and visit frequency established with patient and plan of care agreed upon. Patient demonstrated a need for further skilled SN services for chronic disease management & education, medication education, wound/skin care and safety. RECOMMENDATION: Visit Frequency: 2x4, 1x5 Need for additional services: Patient agreeable to PT and OT referrals. Patient declined N/A referrals. Additional concerns to be followed up on: NONE Next visit to focus on (be specific): wound care [facility] Work Phone: 03-27-2024 Telephone encounter Note OK for [facility] 03-27-2024 Telephone encounter Note Amara from [facility] calls and [facility] is asking if provider willing to follow patient with orders for half-way. Can reply through [facility] and this encounter. See Below. Thank you, Nidhi Wynn RN [facility] 03-26-2024 Note HNO ID: [id number] Author: QUINN CRISTINA MD Service: Hospital Medicine Author Type: Physician Type: Progress Notes Filed: 03/26/2024 17:21 Note Text: DEPARTMENT OF HOSPITAL MEDICINE PROGRESS NOTE SERVICE DATE: 03/26/2024 SERVICE TIME: 5:19 PM Hospital Medicine/Primary Attending: Quinn Cristina MD NIGHT AND WEEKEND COVERAGE: BORGER COVERAGE: Nights: [phone], please page [facility] Night coverage pager [phone]. Probable discharge: 03/28 Disposition: To be determined Consultants: Dr. Naylor/Dr. Dinh for podiatry Dr. Gonzalez for psychology Dr. Gonzalez for infectious disease Dr. Kumar for GI PROCEDURES: 03/24 R great toe amputation at MTPJ IANDD R foot deep multiple areas level of bone sharp excisional nonselective debridement into level of bone (post debridement 2 x 6 x 1 cm) 03/24 EGD with esophageal dilation - Normal duodenal bulb, first portion of the duodenum and second portion of the duodenum. Biopsied. 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 Treated with argon plasma coagulation (APC). - Benign-appearing esophageal stenosis. Dilated. 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 Continue [employer] psychiatric medication regimen. No medication adjustments at this time. 2. Patient to follow up outpatient with [place] counseling 3. Spiritual care consulted 4. Psychology following OBJECTIVE EK03/23/2024 sinus rhythm first-degree AV block similar to EKG 03/18/2023 ECHOCARDIOGRAM: None Recent Labs 03/26/24 0640 03/25/24 0654 03/24/24 0540 03/23/24 0603 03/22/24 1748 WBC 8.77 9.24 8.08 < > 9.49 RBC 3.71* 3.55* 3.68* < > 3.57* HB 8.6* 8.3* 8.6* < > 8.2* HCT 25.5* 24.5* 25.0* < > 24.0* PLT 283 259 259 < > 297 MCV 68.7* 69.0* 67.9* < > 67.2* MCH 23.2* 23.4* 23.4* < > 23.0* MPV 9.6 9.2 8.8* < > 9.3 ABSNEUT -- -- -- -- 6.32 NEUTP -- -- -- -- 66.6 LYMPHP -- -- -- -- 24.9 MONOP -- -- -- -- 5.4 EODINP -- -- -- -- 2.1 < > = values in this interval not displayed. Recent Labs 03/26/24 0640 03/25/24 0654 03/24/24 0540 GLUC 226* 162* 142* NA 138 139 139 K 5.3* 4.8 4.7 CHLOR 102 102 103 CO2 29 29 29 CREAT 1.03 0.98 0.93 BUN 10 10 9 ANION 7* 8 7* CA 8.9 8.8 8.9 TPROT 6.6 6.5 6.6 ALB 3.4* 3.3* 3.6* TBILI <0.2* <0.2* 0.2 ALKPHOS 116* 114* 115* AST 9* 11* 9* ALT <5* <5* <5* Recent Labs 03/22/24 1748 CRP 0.7 Recent Labs 03/26/24 1228 03/26/24 0821 03/26/24 0640 03/25/24201903/25/24 0952 03/25/24 0654 03/24/24 0818 03/24/24 0540 GLUC -- -- 226* -- -- 162* -- 142* PCGLUCOSE 217* 256* -- 196* < > -- < > -- < > = values in this interval not displayed. Recent Labs 03/22/24 1748 LACT 1.8 Recent Labs 03/26/24 0640 03/25/24 0654 03/24/24 0540 BUN 10 10 9 CREAT 1.03 0.98 0.93 CA 8.9 8.8 8.9 P 2.5* 3.0 3.1 MG 1.8 1.8 1.9 Most recent labs Last 14 BP Last 14 Encounter BP Readings: Date: BP: 03/22/2024 120/52 02/18/2024 107/64 11/23/2023 94/56[Using BP Monitor[ 09/13/2023 122/68 06/16/2023 146/72 06/07/2023 101/60 05/19/2023 108/62 03/22/2023 100/63 02/25/2023 101/66 11/24/2022 108/60 11/11/2022 118/58 10/23/2022 101/58 10/22/2022 112/60 05/27/2022 112/64 Hemoglobin A1C (%) Date Value 03/22/2024 7.1 09/13/2023 6.7 05/19/2023 8.2 10/22/2022 7.2 01/30/2022 7.4 Hemoglobin A1C (POCT) (%) Date Value 11/10/2023 6.9 TSH Date Value Ref Range Status 03/23/2024 2.640 0.270 - 4.200 mIU/L Final HOSPITAL COURSE: Berta Jaramillo is a 58 year old male presented with past medical history of diabetes mellitus type 2, rheumatoid arthritis on leflunomide, hypertension, anxiety, depression, GERD, and osteomyelitis who presents with right foot wound. According to the patient, he follows as an outpatient with Dr. Peres of podiatry in [place]. He has had issues with a right foot ulceration since about a year ago and at first was using Aquacel to treat it. Unfortunately, it was determined that he would need a partial hallux amputation but the patient was unable to schedule surgery because of outside issues. Was also receiving antibiotics at times but has not henry (more content not included)... [facility] 03-26-2024 Telephone encounter Note Date/Time: 03/26/2024 4:36 PM Spoke with Berta @ phone #: hospital number - Preferred # for contact: [phone] Have you received help from a home care company in the last 60 days? no Are you agreeable to [facility] services? yes What address will we be seeing you at? Berta Jaramillo [id number] [address] [facility] [address] Do you have any upcoming appointments or things we need to schedule around? no Do you have a teachable CG or can you manage your care independently? Yes patient able to wound care Have you received the flu shot? yes If so, when and where? 03/09 [facility] 03-26-2024 Miscellaneous Notes Date/Time: 03/26/2024 4:36 PM Spoke with Berta @ phone #: hospital number - Preferred # for contact: [phone] Have you received help from a home care company in the last 60 days? no Are you agreeable to [facility] services? yes What address will we be seeing you at? Berta Jaramillo [phone] [facility] [address] Do you have any upcoming appointments or things we need to schedule around? no Do you have a teachable CG or can you manage your care independently? Yes patient able to wound care Have you received the flu shot? yes If so, when and where? 03/09 documented in this encounter [facility] 03-26-2024 Telephone encounter Note Rachel Chery MD Please advise if you are agreeable to signing and following for C services? Our Clinicians will be sending the Plan of Care to you for review and approval. They will reach out for any appropriate orders required to provide home care services for the patient. We are not able to initiate HHC services without a following provider. Home care clinicians may also obtain orders from [facility] Virtualist Providers Thank you and we would be happy to answer any questions. Amara Russo LPN 03/26/2024 4:30 PM [facility] 03-26-2024 Note HNO ID: [id number] Author: PILAR ROMAN RN Service: Care Management Author Type: Registered Nurse Type: Care Mgt Progress Note Filed: 03/26/2024 15:15 Note Text: CARE MANAGEMENT PROGRESS NOTE SERVICE DATE: 03/26/2024 SERVICE TIME: 3:14 PM LOS: 4 days Needs Prior to Discharge: Facility or Agency Choices;To Be Determined [place] of Choice Given: Yes Level of Care Discussed: Home Care Financial Disclosure Provided: Yes Provider List: Home Care Discussed with patient recommendation for home PT/OT. Patient is agreeable. He requests referral to [facility]. Referral made as requested. Awaiting return response at time of note. SIGNATURE: Pilar Roman RN PATIENT NAME: Berta Trejobrit DATE: March 26, 2024 TIME: 3:14 PM PAGER/CONTACT #: [phone] [facility] 03-26-2024 Note HNO ID: [id number] Author: PILAR ROMAN RN Service: Care Management Author Type: Registered Nurse Type: Care Mgt Progress Note Filed: 03/26/2024 14:57 Note Text: CARE MANAGEMENT PROGRESS NOTE SERVICE DATE: 03/26/2024 SERVICE TIME: 2:56 PM LOS: 4 days IMM Follow Up Copy Given: Yes Copy given to:: Patient Method: In Person SIGNATURE: Pilar Roman RN PATIENT NAME: Berta Jaramillo DATE: March 26, 2024 TIME: 2:56 PM PAGER/CONTACT #: [phone] [facility] 03-25-2024 Note HNO ID: [id number] Author: QUINN CRISTINA MD Service: Hospital Medicine Author Type: Physician Type: Progress Notes Filed: 03/25/2024 17:28 Note Text: DEPARTMENT OF HOSPITAL MEDICINE PROGRESS NOTE SERVICE DATE: 03/25/2024 SERVICE TIME: 12:04 PM Hospital Medicine/Primary Attending: Quinn Cristina MD NIGHT AND WEEKEND COVERAGE: BORGER COVERAGE: Nights: [phone], please page [place] [facility] Night coverage pager [phone]. Probable discharge: 03/28 Disposition: To be determined Consultants: Dr. Naylor/Dr. Dinh for podiatry Dr. Gonzalez for psychology Dr. Gonzalez for infectious disease Dr. Kumar for GI PROCEDURES: 03/24 R great toe amputation at MTPJ IANDD R foot deep multiple areas level of bone sharp excisional nonselective debridement into level of bone (post debridement 2 x 6 x 1 cm) 03/24 EGD with esophageal dilation - Normal duodenal bulb, first portion of the duodenum and second portion of the duodenum. Biopsied. 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 Treated with argon plasma coagulation (APC). - Benign-appearing esophageal stenosis. Dilated. 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 Continue ELECTRON[employer] DATA INTERCHANGE SPECIALIST psychiatric medication regimen. No medication adjustments at this time. 2. Patient to follow up outpatient with Jamila counseling 3. Spiritual care consulted 4. Psychology following OBJECTIVE EK03/23/2024 sinus rhythm first-degree AV block similar to EKG 03/18/2023 ECHOCARDIOGRAM: None Recent Labs 03/25/24 0654 03/24/24 0540 03/23/24 0603 03/22/24 1748 WBC 9.24 8.08 7.17 9.49 RBC 3.55* 3.68* 3.22* 3.57* HB 8.3* 8.6* 7.3* 8.2* HCT 24.5* 25.0* 21.6* 24.0* PLT 259 259 266 297 MCV 69.0* 67.9* 67.1* 67.2* MCH 23.4* 23.4* 22.7* 23.0* MPV 9.2 8.8* 9.7 9.3 ABSNEUT -- -- -- 6.32 NEUTP -- -- -- 66.6 LYMPHP -- -- -- 24.9 MONOP -- -- -- 5.4 EODINP -- -- -- 2.1 Recent Labs 03/25/24 0654 03/24/24 0540 03/23/24 0603 GLUC 162* 142* 187* NA 139 139 142 K 4.8 4.7 4.5 CHLOR 102 103 107 CO2 29 29 30 CREAT 0.98 0.93 0.91 BUN 10 9 7* ANION 8 7* 5* CA 8.8 8.9 8.5 TPROT 6.5 6.6 5.9* ALB 3.3* 3.6* 3.3* TBILI <0.2* 0.2 <0.2* ALKPHOS 114* 115* 114* AST 11* 9* 7* ALT <5* <5* <5* Recent Labs 03/22/24 174 CRP 0.7 Recent Labs 03/25/24 0952 03/25/24 0654 03/24/24 1957 03/24/24 1649 03/24/24 0818 03/24/24 0540 03/23/24 0933 03/23/24 0603 GLUC -- 162* -- -- -- 142* -- 187* PCGLUCOSE 185* -- 259* 224* < > -- < > -- < > = values in this interval not displayed. Recent Labs 11/06/24 1748 LACT 1.8 Recent Labs 03/25/24 0654 03/24/24 0540 03/23/24 0603 BUN 10 9 7* CREAT 0.98 0.93 0.91 CA 8.8 8.9 8.5 P 3.0 3.1 3.3 MG 1.8 1.9 1.6* Most recent labs Last 14 BP Last 14 Encounter BP Readings: Date: BP: 03/22/2024 120/52 02/18/2024 107/64 11/23/2023 94/56[Using BP Monitor[ 09/13/2023 122/68 06/16/2023 146/72 06/07/2023 101/60 05/19/2023 108/62 03/22/2023 100/63 02/25/2023 101/66 11/24/2022 108/60 11/11/2022 118/58 10/23/2022 101/58 10/22/2022 112/60 05/27/2022 112/64 Hemoglobin A1C (%) Date Value 03/22/2024 7.1 09/13/2023 6.7 05/19/2023 8.2 10/22/2022 7.2 01/30/2022 7.4 Hemoglobin A1C (POCT) (%) Date Value 11/10/2023 6.9 TSH Date Value Ref Range Status 03/23/2024 2.640 0.270 - 4.200 mIU/L Final HOSPITAL COURSE: Berta Jaramillo is a 58 year old male presented with past medical history of diabetes mellitus type 2, rheumatoid arthritis on leflunomide, hypertension, anxiety, depression, GERD, and osteomyelitis who presents with right foot wound. According to the patient, he follows as an outpatient with Dr. Peres of podiatry in [place]. He has had issues with a right foot ulceration since about a year ago and at first was using Aquacel to treat it. Unfortunately, it was determined that he would need a partial hallux amputation but the patient was unable to schedule surgery because of outside issues. Was also receiving antibiotics at times but has not had any in about a half a year (Augmentin appears to be his last abx). He also notes that he was supposed to see an outside (more content not included)... [facility] 03-24-2024 Note HNO ID: [id number] Author: CONCEPCION ODONNELL PA-C Service: General Surgery Author Type: Physician Client Executive Type: Progress Notes Filed: 03/24/2024 17:37 Note Text: POSTOP PROGRESS NOTE SERVICE DATE: 03/24/2024 SERVICE TIME: 5:35 PM Subjective CHIEF COMPLAINT: s/p R great toe amputation INTERVAL HISTORY OF PRESENT ILLNESS: This is a 58 year old male postop R great toe amputation with Dr. Dinh. Patient reports no questions, concerns, or pain at this time. Objective PHYSICAL EXAM: BP 123/67 Pulse 93 Temp (Src) 97.5 (Oral) Resp 14 Ht 5' 9 (1.75m) Wt 221 lb 12.5 oz (100.6kg) SpO2 97% BMI 32.74 kg/(m2). O2 Therapy: Room Air, Liters: 3 Physical Exam Performed R foot wrapped in kerlix and HARITHA bandage. Dressing dry and intact. Patient is able to move toes and reports same level of sensation as he had pre-operatively due to neuropathy. Assessment/Plan Assessment AND Plan Right hallux osteomyelitis (HCC) POSTOP PLANS: As indicated Proceed with Dr. Dinh's post operative plan. Advised patient to reach out to nurse if issues occur. SIGNATURE: Concepcion Odonnell PA-C PATIENT NAME: Berta Jaramillo DATE: March 24, 2024 TIME: 5:35 PM [facility] 03-24-2024 Note HNO ID: [id number] Author: PILAR ROMAN RN Service: Care Management Author Type: Registered Nurse Type: Care Mgt Progress Note Filed: 03/24/2024 09:50 Note Text: CARE MANAGEMENT PROGRESS NOTE SERVICE DATE: 03/24/2024 SERVICE TIME: 9:44 AM LOS: 2 days Needs Prior to Discharge: To Be Determined;OT/PT Evaluation;Other: See Comment (medical clearance) CM following, chart reviewed. Patient in OR this morning for right great toe amputation. PT/OT will be ordered once patient returns to unit (OK per Dr. Cristina). Anticipate discharge 03/[address] Cristina's progress note. Anticipate patient will return to [facility] and will need to discuss transport with patient. CM will follow for discharge needs and PT/OT needs once patient has evaluation. Assigned CM will continue to follow. SIGNATURE: Pilar Roman RN PATIENT NAME: Berta Jaramillo DATE: March 24, 2024 TIME: 9:44 AM PAGER/CONTACT #: [phone] [facility] 03-24-2024 Note HNO ID: [id number] Author: QUINN CRISTINA MD Service: Hospital Medicine Author Type: Physician Type: Progress Notes Filed: 03/24/2024 14:44 Note Text: DEPARTMENT OF HOSPITAL MEDICINE PROGRESS NOTE SERVICE DATE: 03/24/2024 SERVICE TIME: 7:18 AM Hospital Medicine/Primary Attending: Quinn Cristina MD NIGHT AND WEEKEND COVERAGE: BORGER COVERAGE: Nights: [phone], please page [place] [facility] Night coverage pager [phone]. Probable discharge: 03/28 Disposition: To be determined Consultants: Dr. Naylor/Dr. Dinh for podiatry Dr. Gonzalez for psychology Dr. Gonzalez for infectious disease Dr. Kumar for GI PROCEDURES: 03/24 R great toe amputation at MTPJ IANDD R foot deep multiple areas level of bone sharp excisional nonselective debridement into level of bone (post debridement 2 x 6 x 1 cm) 03/24 EGD with esophageal dilation - Normal duodenal bulb, first portion of the duodenum and second portion of the duodenum. Biopsied. 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 Treated with argon plasma coagulation (APC). - Benign-appearing esophageal stenosis. Dilated. Anticoagulation: Prior to admission: Aspirin 81 mg Current: Heparin subcutaneous will hold and use IPG's until after surgery Smoking history: 43 pack years CODE STATUS: Full code ASSESSMENT/PLAN Reason for Admission: Osteomyelitis with Citrobacter and Pseudomonas right first MTPJ INTERVAL COURSE OF EVENTS: Medically stabilized for surgical procedure for 03/24/2024 1 unit of red cells for iron deficiency anemia hemoglobin 7.3 => 8.6 Ferrlecit IV giving double dose x 4 to complete the equivalent of 8 doses of routine Ferrlecit Stool Hemoccult ordered GI consult for iron deficiency anemia ultrasound of the legs-negative DVT or superficial phlebitis bilateral inguinal adenopathy CTA for PE-negative We will start postoperatively better glucose control do not want to tighter control before surgery since n.p.o. => postoperative Lantus 18 units every morning and Humalog 6 units with meals and sliding scale 2 OBJECTIVE EK03/23/2024 sinus rhythm first-degree AV block similar to EKG 03/18/2023 ECHOCARDIOGRAM: None Recent Labs 03/24/2453903/23/2460203/22/24 174 WBC 8.08 7.17 9.49 RBC 3.68* 3.22* 3.57* HB 8.6* 7.3* 8.2* HCT 25.0* 21.6* 24.0* PLT 259 266 297 MCV 67.9* 67.1* 67.2* MCH 23.4* 22.7* 23.0* MPV 8.8* 9.7 9.3 ABSNEUT -- -- 6.32 NEUTP -- -- 66.6 LYMPHP -- -- 24.9 MONOP -- -- 5.4 EODINP -- -- 2.1 Recent Labs 03/24/2453903/23/2460203/22/24 1748 GLUC 142* 187* 159* NA 139 142 138 K 4.7 4.5 4.3 CHLOR 103 107 102 CO2 29 30 23 CREAT 0.93 0.91 0.85 BUN 9 7* 7* ANION 7* 5* 13 CA 8.9 8.5 8.8 TPROT 6.6 5.9* 7.5 ALB 3.6* 3.3* 3.6* TBILI 0.2 <0.2* 0.2 ALKPHOS 115* 114* 128* AST 9* 7* 12* ALT <5* <5* 8* Recent Labs 03/22/24 1748 CRP 0.7 Recent Labs 03/24/24 0540 03/23/24 2046 03/23/24 1700 03/23/24 1337 03/23/24 0933 03/23/24 0603 03/22/24 19403/22/24 1748 GLUC 142* -- -- -- -- 187* -- 159* PCGLUCOSE -- 182* 223* 193* < > -- < > -- < > = values in this interval not displayed. Recent Labs 03/22/24 1748 LACT 1.8 Recent Labs 03/24/2453903/23/24 0603 03/22/24 1748 BUN 9 7* 7* CREAT 0.93 0.91 0.85 CA 8.9 8.5 8.8 P 3.1 3.3 3.4 MG 1.9 1.6* -- Most recent labs Last 14 BP Last 14 Encounter BP Readings: Date: BP: 03/22/2024 120/52 02/18/2024 107/64 11/23/2023 94/56[Using BP Monitor[ 09/13/2023 122/68 06/16/2023 146/72 06/07/2023 101/60 05/19/2023 108/62 03/22/2023 100/63 02/25/2023 101/66 11/24/2022 108/60 11/11/2022 118/58 10/23/2022 101/58 10/22/2022 112/60 05/27/2022 112/64 Hemoglobin A1C (%) Date Value 03/22/2024 7.1 09/13/2023 6.7 05/19/2023 8.2 10/22/2022 7.2 01/30/2022 7.4 Hemoglobin A1C (POCT) (%) Date Value 11/10/2023 6.9 TSH Date Value Ref Range Status 03/23/2024 2.640 0.270 - 4.200 mIU/L Final HOSPITAL COURSE: Berta Jaramillo is a 58 year old male presented with past medical history of diabetes mellitus type 2, rheumatoid arthritis on leflunomide, hypertension, anxiety, depression, GERD, and osteomyelitis who presents with right foot wound. According to the patient, he follows as an outpatient with Dr. Peres of podiatry in [place]. He has had issues with a right foot ulceration since about a year ago and at first was using Aquacel to treat it. Unfortunately, it was determined that he would need a partial hallux amputation but the patient was unable to schedule surgery because of outside issues. Was also receiving antibiotics at times but has not had any in about a half a year (Augmentin appears to be his last abx). He also notes that he was supposed to see an outside digital photographer (Dr. Palm) prior to surgery for anemia evaluation, but has not seen him as of yet. Most notably however, the patient has been (more content not included)... [facility] 03-23-2024 Note HNO ID: [id number] Author: ALANA ROPER APRN.CNP Service: General Surgery Author Type: Nurse Practitioner Type: Progress Notes Filed: 03/23/2024 17:24 Note Text: PREOP PROGRESS NOTE SERVICE DATE: 03/23/2024 SERVICE TIME: 5:10 PM Subjective CHIEF COMPLAINT: right toe wound INTERVAL HISTORY OF PRESENT ILLNESS: This is a 58 year old male preop for Amputation Right Great Toe Metatarsophalangeal with Dr. Dinh for tomorrow 03/24/24. Patient states bone has been peaking out of chronic right toe wound for about a month. He was instructed to go to the ED after visiting the veterans service representative d/t signs of wound infection. Patient states 5/10 pain while sitting in bed with persistent neuropathic pain in RLE. Objective PHYSICAL EXAM: BP 113/61 Pulse 81 Temp (Src) 97.3 (Oral) Resp 18 Ht 5' 9 (1.75m) Wt 227 lb 11.8 oz (103.3kg) SpO2 97% BMI 33.62 kg/(m2). O2 Therapy: Room Air Physical Exam: GENERAL: No sign of acute distress. Pleasant and cooperative. RIGHT LEG: Haritha wrap present on right foot with minimal shadowing through dressing. RLE minimal sensation to light tough. Positive tenderness to palpation over right foot. Wiggles toes. Dorsiflex and plantarflex 5/5. Assessment/Plan Assessment AND Plan Right toe wound PREOP PLANS: As indicated Per Dr. Dinh' service HANDP: Yes Surgical Consent Signed: No NPO Status: Yes Medical Clearance: defer to Dr. Dinh' service DOS Labs Ordered: No HCG Completed: NA Spoke with nursing to remove all jewelry and undergarments: Yes Spoke with patient to remove all jewelry and undergarments: Yes Anticoagulants stopped/held as ordered: Yes Family member present for DOS :No SIGNATURE: Alana Roper APRN.CNP PATIENT NAME: Berta Jaramillo DATE: March 23, 2024 TIME: 5:10 PM [facility] 03-23-2024 Note HNO ID: [id number] Author: KELY SÁNCHEZ RN Service: Care Management Author Type: Registered Nurse Type: Care Mgt Initial Assessment Filed: 03/23/2024 14:40 Note Text: CARE MANAGEMENT: ASSESSMENT AND DISCHARGE PLAN SERVICE DATE: March 23, 2024 SERVICE TIME: 11:19 AM PCP: Rachel Chery MD Primary Contact: Extended Emergency Contact Information Primary Emergency Contact: temitope nelson Mobile Relation: Mother Admission Status: Inpatient [facility] Discharge Planning requested by: Per Department Practice Potential Transition Plans Home;Home Care;Home OT/PT;Assisted Facility/Intermediate Care Facility;To Be Determined Advance Directives Current Advance Directive: None Lunchroom Monitor Attempted to Assist with AD Completion: Yes Action: Patient Unwilling Current Living Arrangements and Support Lives with: [facility] Type of Residence: Assisted Living Facility Does the patient have to climb stairs at home?: stairs outside the home Care Facility Name: [facility] Support: manager public/social work supervisor How do you manage to accomplish the following: Independent: Bathe/Shower;Dress;Going to the bathroom Needs Assistance: Ambulation;Meals/Meal Prep;Medication Management Dependent: Transportation to appointments/community Current Services/Equipment Current Post-Acute Service(s): DME Current DME Type: Grab bars, Wheelchair-manual Discharge Planning Patient Goal(s): Be able to go home, General wellness [place] of Choice Explained: [place] of Choice Given: Yes (Plan to return to [facility]) Are you interested in bedside delivery of your medications? No, medications are managed by the [facility] staff. Discharge Planning Participant(s): Patient Caregiver Assessment: Caregiver is ready, willing and able to meet the patient's needs as recommended by the inter-professional team: Other: See Comment (To be determined) Transport at Discharge: Transportation Arrangements: To Be Determined Needs Prior to Discharge: Needs Prior to Discharge: To Be Determined;Accepting Facility;Facility or Agency Choices;Home Care Order;OT/PT Evaluation;Precertification;Discha rge Transportation;Other: See Comment (Medical Clearance) Post-Acute Discharge Plan: EMR reviewed and CM assessment complete. 58 year old patient admitted for right hallux osteomyelitis. RN AMANDA met with the patient at bedside to discuss discharge planning needs. He is reportedly a resident at [facility] in [place] and has lived there for about 3 and a half years. The patient indicated that he is not happy with his current living situation. He is frustrated with the limited amount of money he receives monthly as a result of moving into the [facility] and feels he was tricked into moving there. He has a new Cake Maker thru his insurance (unsure of full name or contact info) who is assisting with a possible transition back into the community. The patient did confirm that at this time the plan would be to return to his [facility] until other living arrangements can be made. He prefers not to go to SNF. He has done that in the past and felt it negatively impacted his mental health. He is primarily wheelchair bound at baseline but is able to take a few steps. The facility assists with medication management. Transportation is provided thru his insurance. States he manages dressing changes independently. Plan for OR tomorrow for right great toe amputation. He will likely need PT and OT evals post-op to assist with discharge planning needs. Psych consult is pending for recent history of SI/SA. CM assigned will continue to follow. SIGNATURE: Kely Sánchez RN PATIENT NAME: Berta Jaramillo DATE: March 23, 2024 TIME: 11:18 AM CONTACT #: [phone] [facility] 03-23-2024 Note HNO ID: [id number] Author: QUINN CRISTINA MD Service: Hospital Medicine Author Type: Physician Type: Progress Notes Filed: 03/23/2024 18:07 Note Text: DEPARTMENT OF HOSPITAL MEDICINE PROGRESS NOTE SERVICE DATE: 03/23/2024 SERVICE TIME: 10:19 AM Hospital Medicine/Primary Attending: Quinn Cristina MD NIGHT AND WEEKEND COVERAGE: BORGER COVERAGE: Nights: [phone], please page [facility] pager [phone]. Probable discharge: 03/28 Disposition: To be determined Consultants: Dr. Naylor/Dr. Dinh for podiatry Dr. Gonzalez for psychology Dr. Gonzalez for infectious disease Dr. Kumar for GI PROCEDURES: NONE Anticoagulation: Prior to admission: Aspirin 81 mg Current: Heparin subcutaneous will hold and use IPG's until after surgery Smoking history: 43 pack years CODE STATUS: Full code ASSESSMENT/PLAN Reason for Admission: Osteomyelitis with Citrobacter and Pseudomonas right first MTPJ INTERVAL COURSE OF EVENTS: Medically stabilized for surgical procedure for 03/24/2024 pending ultrasound and CTA chest Discussion with surgery and the patient transfusing 1 unit of red cells for iron deficiency anemia hemoglobin 7.3 Ferrlecit IV giving double dose x 4 to complete the equivalent of 8 doses of routine Ferrlecit Stool Hemoccult ordered GI consult for iron deficiency anemia Magnesium/phosphorus-pending Right sided gallop questionable etiology-right leg edema ultrasound of the legs-negative DVT or superficial phlebitis bilateral inguinal adenopathy CTA for PE-negative OBJECTIVE EK03/23/2024 sinus rhythm first-degree AV block similar to EKG 03/18/2023 ECHOCARDIOGRAM: None Recent Labs 03/23/2460203/22/241747 WBC 7.17 9.49 RBC 3.22* 3.57* HB 7.3* 8.2* HCT 21.6* 24.0* PLT 266 297 MCV 67.1* 67.2* MCH 22.7* 23.0* MPV 9.7 9.3 ABSNEUT -- 6.32 NEUTP -- 66.6 LYMPHP -- 24.9 MONOP -- 5.4 EODINP -- 2.1 Recent Labs 03/23/2460203/22/24 1748 GLUC 187* 159* NA 142 138 K 4.5 4.3 CHLOR 107 102 CO2 30 23 CREAT 0.91 0.85 BUN 7* 7* ANION 5* 13 CA 8.5 8.8 TPROT 5.9* 7.5 ALB 3.3* 3.6* TBILI <0.2* 0.2 ALKPHOS 114* 128* AST 7* 12* ALT <5* 8* Recent Labs 03/22/24 1748 CRP 0.7 Recent Labs 03/23/24 0933 03/23/24 0603 03/22/24 2325 03/22/24 1948 03/22/24 1748 GLUC -- 187* -- -- 159* PCGLUCOSE 160* -- 203* 143* -- Recent Labs 03/22/24 1748 LACT 1.8 Recent Labs 03/23/24 0603/22/24 1748 BUN 7* 7* CREAT 0.91 0.85 CA 8.5 8.8 Most recent labs Last 14 BP Last 14 Encounter BP Readings: Date: BP: 03/22/2024 120/52 02/18/2024 107/64 11/23/2023 94/56[Using BP Monitor[ 09/13/2023 122/68 06/16/2023 146/72 06/07/2023 101/60 05/19/2023 108/62 03/22/2023 100/63 02/25/2023 101/66 11/24/2022 108/60 11/11/2022 118/58 10/23/2022 101/58 10/22/2022 112/60 05/27/2022 112/64 Hemoglobin A1C (%) Date Value 03/22/2024 7.1 09/13/2023 6.7 05/19/2023 8.2 10/22/2022 7.2 01/30/2022 7.4 Hemoglobin A1C (POCT) (%) Date Value 11/10/2023 6.9 No results found for: [facility] HOSPITAL COURSE: Berta Jaramillo is a 58 year old male presented with past medical history of diabetes mellitus type 2, rheumatoid arthritis on leflunomide, hypertension, anxiety, depression, GERD, and osteomyelitis who presents with right foot wound. According to the patient, he follows as an outpatient with Dr. Peres of podiatry in [place]. He has had issues with a right foot ulceration since about a year ago and at first was using Aquacel to treat it. Unfortunately, it was determined that he would need a partial hallux amputation but the patient was unable to schedule surgery because of outside issues. Was also receiving antibiotics at times but has not had any in about a half a year (Augmentin appears to be his last abx). He also notes that he was supposed to see an outside digital photographer (Dr. Palm) prior to surgery for anemia evaluation, but has not seen him as of yet. Most notably however, the patient has been having worsening of his right foot wound since November even following prescribed dressing changes at home. Describes the toe as appearing black and is having increased skin breakdown as well. As he has severe neuropathy, he notes that he cannot feel extreme pain but knows that the toe is not looking good and feels pressure. He has not tried anything else for management of his toe wound at home. Socially, the patient is an active nicotine user and smokes at least 1-1/2 packs a day and has done so for at least 40 years. He denies alcohol use or recreational drug use however. Furthermore he denies fever/chills, headache, dizziness, changes in his vision/hearing, trouble swallowing, chest pain, shortness of breath, cough, nausea/vomiting, abdominal pain, constipation/diarrhea/hematochezia , urinary changes, new numbness/tingling, or new swelling. In the emergency jared (more content not included)... [facility] 03-23-2024 Note HNO ID: [id number] Author: ERIC MAHONEY RT(R) Service: Radiology Author Type: Technologist Type: Progress Notes Filed: 03/23/2024 06:58 Note Text: Radiology Service Progress Note PATIENT NAME: Berta Jaramillo DATE OF SERVICE: March 23, 2024 TIME: 6:57 AM PATIENT IDENTITY VERIFICATION COMPLETED USING TWO (2) IDENTIFIERS: Name and Date of confirmed by patient verbally. FALL SCREENING: Has the patient had 2 falls in the last year or 1 fall with injury or currently using an Ambulatory Assistive Device (Walker, Cane, Wheelchair, Crutches, etc.)? Inpatient: Screened on floor PATIENT GENDER DATA: Male PATIENT RELEVANT IMPLANT DATA REVIEWED: Not Applicable PATIENT PRESENTS WITH AN IMPLANTABLE OR ATTACHED TANK BUILDER AND ERECTOR: No RADIOLOGY DEPARTMENT: General X-ray: Exam(s) Completed: Chest X-Ray PERIPHERAL IV DATA: Not applicable SIGNED BY: RT Heriberto(R) March 23, 2024 6:57 AM [facility] 03-22-2024 Note HNO ID: [id number] Author: CATIE BURK RN Service: Nursing Author Type: Registered Nurse Type: ED Notes Filed: 03/22/2024 17:32 Note Text: SAUNDRA MD IN PROGRESS. [facility] 03-17-2024 Telephone encounter Note Attempted to call patient to see if patient present to ED and provided results. Patient states that he will not be going to hospital because he wants some one that know what they are doing. Informed patient that his culture came back as pseudomonas and provider would highly advise presenting to ED. Patient states he will not be going to ED. Patient states Tell Mr. Barrientos that I am not happy with him for not operating on me and if something is coming at him its probably me. Patient states he is seeing [facility] [place] on Wednesday. Nga Villalpando LPN [facility] 03-17-2024 Miscellaneous Notes Attempted to call patient to see if patient present to ED and provided results. Patient states that he will not be going to hospital because he wants some one that know what they are doing. Informed patient that his culture came back as pseudomonas and provider would highly advise presenting to ED. Patient states he will not be going to ED. Patient states Tell Mr. Barrientos that I am not happy with him for not operating on me and if something is coming at him its probably me. Patient states he is seeing [facility] in [place] on Wednesday. Nga Villalpando LPN 4th attempt. Called patient to gather further information on why he did not present to ED after being advised on 03/09/2024 at office visit.Culture results are in provider would like to speak with patient. No response. Left VM to call back office. Nga Villalpando LPN I attempted to contact patient today to see how he is doing. No answer . I informed him that I want him to call me so we can discuss how things are going. He has pseudomonas growing on culture. If he is not in the hospital, I would highly recommend he go All Barrientos DPM Called patient to gather further information on why he did not present to ED after being advised on 03/09/2024 at office visit.Culture results are in provider would like to speak with patient. No response. Left VM to call back office. Nga Villalpando LPN Spoke with nursing about patient. Found that he is not in the hospital. Can we check to see what patient is thinking? All Barrientos DPM I attempted to contact patient to discuss wound culture results. No answer. I left message for patient to contact me All Barrientos DPM documented in this encounter [facility] 03-15-2024 Telephone encounter Note 4th attempt. Called patient to gather further information on why he did not present to ED after being advised on 03/09/2024 at office visit.Culture results are in provider would like to speak with patient. No response. Left VM to call back office. Nga Villalpando LPN [facility] 03-14-2024 Telephone encounter Note I attempted to contact patient today to see how he is doing. No answer . I informed him that I want him to call me so we can discuss how things are going. He has pseudomonas growing on culture. If he is not in the hospital, I would highly recommend he go All Barrientos DPM [facility] 03-13-2024 Telephone encounter Note Called patient to gather further information on why he did not present to ED after being advised on 03/09/2024 at office visit.Culture results are in provider would like to speak with patient. No response. Left VM to call back office. Nga Villalpando LPN [facility] 03-13-2024 Telephone encounter Note Spoke with nursing about patient. Found that he is not in the hospital. Can we check to see what patient is thinking? All Barrientos DPM [facility] 03-13-2024 Telephone encounter Note I attempted to contact patient to discuss wound culture results. No answer. I left message for patient to contact me lAl Barrientos DPM [facility] 03-09-2024 Note HNO ID: [id number] Author: NGA VILLALPANDO LPN Service: ? Author Type: LICENSED NURSE Type: Progress Notes Filed: 03/09/2024 14:56 Note Text: Per Dr. Barrientos, Berta wound was dressed iodine, non adherent and 2 in roll gauze. Instructed/educated in its application, wear, and care. All questions were answered, and patient was able to demonstrate competence with the necessary skills to utilize the above equipment. Patient states he does not wish to get xray at this time. Patient states he will present to [facility] this evening or tomorrow. Nga Villalpando LPN [facility] 03-09-2024 History of Present illness Narrative Per Dr. Barrientos, Berta wound was dressed iodine, non adherent and 2 in roll gauze. Instructed/educated in its application, wear, and care. All questions were answered, and patient was able to demonstrate competence with the necessary skills to utilize the above equipment. Patient states he does not wish to get xray at this time. Patient states he will present to [facility] this evening or tomorrow. Nga Villalpando LPN FOLLOW UP PODIATRIC OFFICE VISIT Chief Complaint: This 58 year old who presents for follow up:right hallux ulceration. Patient presents to clinic for evaluation of right hallux He has ulceration of right hallux that was last evaluated by me in November. We discussed in the past about a partial hallux amputation. He was all set up for surgery in the spring but due to health issues he had to cancel. He was found to be anemic of uncertain etiology and when scheduled for surgery, was not cleared. He was offered admission to [facility] for medical clearance in September and subsequent surgery but he was not able to arrange transportation. I had arranged to have him cleared by hematology but he was not able to make his appointment. One time the provider was out ill. The other scheduled appointments, he had other issues that he had to attend to. He has not followed up since . He is currently applying leatha to the foot. Patient reports some drainage to his toe. He feels the wound is worsening. He states that his right 2nd toenail started lifting. He removed the nail himself and has a sore to the 2nd toe. He does have pain to his right lateral 5th metatarsal. Has history of fracture. Patient smokes 1 pack of cigarettes/day. PAIN EVALUATION 03/09/2024 1327 Pain Level: 2 Pain Location: Toe Description: Sore Duration Units: Months Frequency: Intermittent Intervention/Comfort measure: Relaxation;Reposition Hemoglobin A1C (POCT) Date Value Ref Range Status 11/10/2023 6.9 (A) 4.3 - 5.6 % Final Comment: Location:[facility], [address], [place], [address] Point of care (POC) Hemoglobin A1c (HGBA1C) testing is intended to assess glucose control and provide a management tool for patients known to have diabetes and their healthcare providers. Target HGBA1C levels may depend on specific clinical circumstances. POC HGBA1C is not intended for use as a diagnostic or screening test; laboratory-based testing should be used for diagnostic purposes. The following information is supplemental and may not be applicable to specific diabetes management situations: The POC device general manager road production provides a normal range of 4.2% to 6.5% for the HGBA1C POC test. However, the [employer] [place] [employer] guidelines indicate that patients with HGBA1C in the range of 5.7% to 6.4% are at increased risk for development of diabetes and that intervention by lifestyle modification may be beneficial. A HGBA1C level greater than or equal to 6.5% is considered diagnostic of diabetes, pending confirmatory testing. Use of HGBA1C testing to evaluate glucose control may not be appropriate for patients with hemoglobin variants or other conditions (e.g. anemia) that alter red blood cell lifespan. PCP: Rachel Chery MD PAST MEDICAL HISTORY Diagnosis Date Atopic eczema Benign prostatic hyperplasia with urinary hesitancy Chronic anemia Depression Depression Diabetes mellitus (HCC) Essential hypertension Gastroesophageal reflux disease without esophagitis Generalized anxiety disorder Hypercholesterolemia Neuropathy Osteomyelitis of right foot (HCC) Tobacco use Current Outpatient Medications Medication Sig amitriptyline (ELAVIL) 50 mg tablet Take 1 tablet by mouth daily at bedtime. atorvastatin (LIPITOR) 80 mg tablet Take 1 tablet by mouth once daily. lisinopril (ZESTRIL) 10 mg tablet Take 1 tablet by mouth once daily. metoprolol tartrate, short acting, (LOPRESSOR) 25 mg tablet Take 1 tablet by mouth two times a day. pantoprazole DR (PROTONIX) 40 mg tablet Take 1 tablet by mouth once daily. pregabalin (LYRICA) 225 mg capsule Take 1 capsule by mouth three times a day for 180 days. busPIRone (BUSPAR) 15 mg tablet Take 1 tablet by mouth three times a day. ezetimibe (ZETIA) 10 mg tablet Take 1 tablet by mouth once daily. Diaper,Brief, Adult,Disposable Change at least twice daily amLODIPine (NORVASC) 5 mg tablet Take 1 tablet by mouth once daily. May also take 1 tablet once daily as needed (For BP over 150/95). insulin glargine (BASAGLAR KWIKPEN U-100 INSULIN) 100 unit/mL (3 mL) Inject 10 Units subcutaneously daily at bedtime. Will adjust insulin orders as needed and send new RX when dose adjusted metFORMIN (GLUCOPHAGE) 1,000 mg tablet Take 1,000 mg by mouth two times a day with meals. insulin aspart (NOVOLOG FLEXPEN U-100 INSULIN SUBCUTANEOUS) Inject 8 Units subcutaneously daily at 6 am. insulin aspart human (NOVOLOG) 100 unit/ml soln Inject 4 Units subcutaneously two times a day. insulin aspart (NOVOLOG FLEXPEN U-100 INSULIN SUBCUTANEOUS) Inject 2 Units subcutaneously daily at bedtime. multivit,calc,mins/iron/folic (THERA-M ORAL) Take 1 tablet by mouth daily at 6 am. loperamide HCl (IMODIUM A-D) 2 mg tab Take 2 mg by mouth every 6 hours as needed. dulaglutide (TRULICITY) 1.5 mg/0.5 mL pen injector Inject 1.5 mg subcutaneously one time a week. insulin aspart U-100 (NOVOLOG FLEXPEN U-100 INSULIN) 100 unit/mL (3 mL) USE SLIDING SCALE ONLY. Sliding scale 150=0, 151-200-1 units, 201-250=2 units, 251-300=3 units, 301-350=4 units, 351-400=5 units based on pre meal blood sugar only as needed. fluticasone (FLONASE) 50 mcg/actuation nasal spray Use 2 Sprays in each nostril once daily as needed for cold/allergy symptoms. Rinse mouth after use. DUPIXENT SYRINGE 300 mg/2 mL injection Inject 300 mg subcutaneously every 2 weeks. ascorbic acid, vitamin C, (VITAMIN C) 500 mg tablet Take 1 tablet by mouth once daily. aspirin 81 mg cap Take 1 Each by mouth once daily. Insulin Celeste, Disposable, (PEN NEEDLE) 32 gauge x 5/32 Inject 1 Each subcutaneously every 24 hours. Give with each insulin administration. blood sugar diagnostic (BLOOD GLUCOSE TEST) test strip Test blood sugar(s) 4 times daily and PRN. Dx: Type 2 DM - Controlled E11.9 Insulin: Yes Lancets lancets Test blood sugar(s) 4 times daily and prn. Dx: Type 2 DM - Controlled E11.9 Insulin: Yes alcohol swabs Apply 1 Each to affected area four times daily. Blood-Glucose Meter 1 Each four times daily. Cholecalciferol, Vitamin D3, 125 mcg (5,000 unit) cap Take 1 tab daily with food. melatonin 10 mg cap Take 1 capsule by mouth daily at bedtime. Blood-Glucose Meter,Continuous (DEXCOM G7 COTTON WEIGHER) [facility] Dispense one chief innovation officer kit. USE FOR CONTINUOUS GLUCOSE MONITORING. MULTIPLE INSULIN INJECTIONS. E11.9 Blood-Glucose Sensor (DEXCOM G7 SENSOR) kimberly CHANGE SENSOR EVERY 10 days. USE FOR CONTINUOUS GLUCOSE MONITORING. MULTIPLE INSULIN INJECTIONS. E11.9 cyanocobalamin (VITAMIN B-12) 1,000 mcg tab Take 1 tablet by mouth once daily. ondansetron orally disintegrating (ZOFRAN ODT) 4 mg disintegrating tablet Take 4 mg by mouth every 8 hours as needed for nausea/vomiting. tamsulosin (FLOMAX) 0.4 mg Take 2 capsules by mouth once daily. sucralfate (CARAFATE) 1 gram tablet Take 1 tablet by mouth four times daily. leflunomide (ARAVA) 10 mg tablet Take 1 tablet by mouth once daily. pen needle, diabetic, safety 31 gauge x 5/16 ndle Use as directed with insulin pen Blood-Glucose Transmitter (DEXCOM G6 TRANSMITTER) kimberly Apply new transmitter every 90 days. Clean transmitter with an alcohol swab with each sensor change. Gauze Bandage 4 X 4 bndg Apply 1 application to affected area once daily. Gauze Bandage (GAUZE ROLL) 2 X 2 -yard bndg Apply 1 application to affected area once daily. meclizine (ANTIVERT) 25 mg tab Take 1 tablet by mouth every 6 hours as needed (dizziness). albuterol HFA (PROVENTIL HFA, VENTOLIN HFA) 90 mcg/actuation inhaler Inhale 2 Puffs as instructed every 4 hours as needed for wheezing/shortness of breath. Lancets lancets Test blood sugar(s) 1 times daily and as needed. Dx: Type 2 DM - Controlled E11.9 Insulin: No triamcinolone acetonide (KENALOG) 0.1 % cream Apply 1 application to affected area twice daily. Apply sparingly to area for rash/itching. Once rash on hands improves, go to treating 2 day per week (Patient not taking: Reported on 09/13/2023) No current facility-administered medications for this visit. ALLERGIES No Known Allergies PAST SURGICAL HISTORY Procedure Laterality Date KNEE SURGERY HX Right Physical Exam: OBJECTIVE: Constitutional: Pt is a well developed 58 year old male who is alert, oriented, cooperative and in no apparent distress. Eyes: Following during examination. No redness or drainage. Respiratory: RR normal and nonlabored. Even breathing. No evidence of distress. Psychology: Patient is engaged during conversation. Normal affect and mood. Does not appear depressed or anxious. Vascular: Dp and PT pulses are palpable to both feet. Moderate swelling is present to right foot. Dermatological: Ulceration #1 Location: right hallux Mesaurement: 4 cm x 2.0 cm x 5 mm deep Base: granular with periwound maceration and drainage. There is palpable/exposed bone of distal phalanx, right hallux Right 2nd toe has absent hallux nail plate. No signs of infection. Musculoskeletal/Orthopaedic: Patient has pain to palpation of right foot Pain present to right midfoot and right 5th metatarsal ASSESSMENT: (L97.512) Ulcer of toe of right foot, with fat layer exposed ([facility]) (primary encounter diagnosis) (M86.171) Other acute osteomyelitis of right foot ([facility]) (E08.621, L97.503) Diabetic ulcer of toe associated with diabetes mellitus due to underlying condition, with necrosis of muscle, unspecified laterality ([facility]) (S92.301D) Closed nondisplaced fracture of metatarsal bone of right foot with routine healing, unspecified metatarsal, subsequent encounter (E11.65, Z79.4) Type 2 diabetes mellitus with hyperglycemia, with long-term current use of insulin ([facility]) PLAN: I had long discussion with patient regarding the apperance of his right great toe. He has large ulceration to the right hallux with considerable maceration, considerable drainage and there is bone exposed. Given the clinical presentation of this toe, I do feel that it is best that he present to a hospital to arrange admission where he can then be medically optimized to undergo amputation. I do feel at minimum he will require partial hallux amputation but given the extent of soft-tissue defect, it is possible he will require complete hallux amputation. I had long discussion with patient today. He wishes that the toe would have already been amputated. I reminded patient the levels to which this office tried to get him scheduled for surgery. I reminded patient about past attempts to have him direct admitted to [facility] but he was not able to arrange transportation. I reminded him of the past attempts this office made to get him seen by hematology. Up thru November, his ulceration was stable and was actaully improving although he had stable erosive changes to the hallux. I have not seen this patient since and unfortunately, it now appears that the toe is no longer salvageable and I feel that presentation to the hospital would be his best course of action. I proposed [facility] vs [facility] where we can have our team of providers work with him. He has no way of getting there. He has elected to use [facility]. I told him that I do not go to [place] any longer. If he goes to [facility], he will need to be evaluated by staff at [facility]. Today, I debrided the ulceration down to level of bone. A wound culture was obtained. Total debridement with tissue nippers was 4 cm x 2.0 cm x 5mm. Bleeding was present and controlled with pressure. Wet to dry dressing was applied. Ordered xrays for follow-up of ulceration and fifth metatarsal fracture. Patient declined xray upon leaving. He is to present to hospital today. All Barrientos DPM AMB ROOMING INTAKE FLOWSHEET DATA Pain Pain Level: 2 Pain Location: Toe Description: Sore Duration Units: Months Frequency: Intermittent Intervention/Comfort measure: Relaxation, Reposition Patient presents with: Right Great Toe - Follow Up, Ulcer, Established Patient, Pain Right 2nd Toe - Established Patient, Pain, Ulcer, Follow Up Nga Villalpando LPN documented in this encounter [facility] 03-09-2024 Instructions All Barrientos - 03/09/2024 2:16 PM EDT You have exposed bone, right great toe. You have ulceration that has incresaed drainage and moisture. Given the exposed bone, recommend hospitalization for medical clearance and amputation. documented in this encounter [facility] 03-09-2024 Note HNO ID: [id number] Author: ALL BARRIENTOS, ? Service: ? Author Type: Physician Type: Progress Notes Filed: 03/09/2024 14:56 Note Text: FOLLOW UP PODIATRIC OFFICE VISIT Chief Complaint: This 58 year old who presents for follow up:right hallux ulceration. Patient presents to clinic for evaluation of right hallux He has ulceration of right hallux that was last evaluated by me in November. We discussed in the past about a partial hallux amputation. He was all set up for surgery in the spring but due to health issues he had to cancel. He was found to be anemic of uncertain etiology and when scheduled for surgery, was not cleared. He was offered admission to [facility] for medical clearance in September and subsequent surgery but he was not able to arrange transportation. I had arranged to have him cleared by hematology but he was not able to make his appointment. One time the provider was out ill. The other scheduled appointments, he had other issues that he had to attend to. He has not followed up since . He is currently applying leatha to the foot. Patient reports some drainage to his toe. He feels the wound is worsening. He states that his right 2nd toenail started lifting. He removed the nail himself and has a sore to the 2nd toe. He does have pain to his right lateral 5th metatarsal. Has history of fracture. Patient smokes 1 pack of cigarettes/day. PAIN EVALUATION 03/09/2024 1327 Pain Level: 2 Pain Location: Toe Description: Sore Duration Units: Months Frequency: Intermittent Intervention/Comfort measure: Relaxation;Reposition Hemoglobin A1C (POCT) Date Value Ref Range Status 11/10/2023 6.9 (A) 4.3 - 5.6 % Final Comment: Location:[facility], [address], [place], [address] Point of care (POC) Hemoglobin A1c (HGBA1C) testing is intended to assess glucose control and provide a management tool for patients known to have diabetes and their healthcare providers. Target HGBA1C levels may depend on specific clinical circumstances. POC HGBA1C is not intended for use as a diagnostic or screening test; laboratory-based testing should be used for diagnostic purposes. The following information is supplemental and may not be applicable to specific diabetes management situations: The POC device general manager road production provides a normal range of 4.2% to 6.5% for the HGBA1C POC test. However, the [place] [employer] guidelines indicate that patients with HGBA1C in the range of 5.7% to 6.4% are at increased risk for development of diabetes and that intervention by lifestyle modification may be beneficial. A HGBA1C level greater than or equal to 6.5% is considered diagnostic of diabetes, pending confirmatory testing. Use of HGBA1C testing to evaluate glucose control may not be appropriate for patients with hemoglobin variants or other conditions (e.g. anemia) that alter red blood cell lifespan. PCP: Rachel Chery MD PAST MEDICAL HISTORY Diagnosis Date Atopic eczema Benign prostatic hyperplasia with urinary hesitancy Chronic anemia Depression Depression Diabetes mellitus (HCC) Essential hypertension Gastroesophageal reflux disease without esophagitis Generalized anxiety disorder Hypercholesterolemia Neuropathy Osteomyelitis of right foot (HCC) Tobacco use Current Outpatient Medications Medication Sig amitriptyline (ELAVIL) 50 mg tablet Take 1 tablet by mouth daily at bedtime. atorvastatin (LIPITOR) 80 mg tablet Take 1 tablet by mouth once daily. lisinopril (ZESTRIL) 10 mg tablet Take 1 tablet by mouth once daily. metoprolol tartrate, short acting, (LOPRESSOR) 25 mg tablet Take 1 tablet by mouth two times a day. pantoprazole DR (PROTONIX) 40 mg tablet Take 1 tablet by mouth once daily. pregabalin (LYRICA) 225 mg capsule Take 1 capsule by mouth three times a day for 180 days. busPIRone (BUSPAR) 15 mg tablet Take 1 tablet by mouth three times a day. ezetimibe (ZETIA) 10 mg tablet Take 1 tablet by mouth once daily. Diaper,Brief, Adult,Disposable Change at least twice daily amLODIPine (NORVASC) 5 mg tablet Take 1 tablet by mouth once daily. May also take 1 tablet once daily as needed (For BP over 150/95). insulin glargine (BASAGLAR KWIKPEN U-100 INSULIN) 100 unit/mL (3 mL) Inject 10 Units subcutaneously daily at bedtime. Will adjust insulin orders as needed and send new RX when dose adjusted metFORMIN (GLUCOPHAGE) 1,000 mg tablet Take 1,000 mg by mouth two times a day with meals. insulin aspart (NOVOLOG FLEXPEN U-100 INSULIN SUBCUTANEOUS) Inject 8 Units subcutaneously daily at 6 am. insulin aspart human (NOVOLOG) 100 unit/ml soln Inject 4 Units subcutaneously two times a day. insulin aspart (NOVOLOG FLEXPEN U-100 INSULIN SUBCUTANEOUS) Inject 2 Units subcutaneously daily at bedtime. multivit,calc,mins/iron/folic (THERA-M ORAL) Take 1 tablet by mouth daily at 6 am. loperamide HCl (IMODIUM A-D) 2 mg tab Take 2 mg by mouth ever (more content not included)... [facility] 03-09-2024 Note HNO ID: [id number] Author: NGA VILLALPANDO LPN Service: ? Author Type: LICENSED NURSE Type: Progress Notes Filed: 03/09/2024 14:56 Note Text: AMB ROOMING INTAKE FLOWSHEET DATA Pain Pain Level: 2 Pain Location: Toe Description: Sore Duration Units: Months Frequency: Intermittent Intervention/Comfort measure: Relaxation, Reposition Patient presents with: Right Great Toe - Follow Up, Ulcer, Established Patient, Pain Right 2nd Toe - Established Patient, Pain, Ulcer, Follow Up Nga Villalpando LPN [facility] 02-29-2024 Telephone encounter Note Noted Thanks for update. [facility] 02-29-2024 Miscellaneous Notes Noted Thanks for update. Ngoc with [facility] calls with an update. She reports that patient is currently living in [place] at [facility]. Patient was found guilty of aggravated menacing but it was dropped to a misdemeanor charge. Patient will have a $100 fine and 90 days to pay it. Ngoc reports that because of having a charge, [employer] served him with an eviction notice and he is to be out by March 25, 2024. Patient will be appealing that and the status of that is unknown at this time. Shania Blakely RN documented in this encounter [facility] 02-29-2024 Telephone encounter Note Ngoc with [facility] calls with an update. She reports that patient is currently living in [place] at [facility]. Patient was found guilty of aggravated menacing but it was dropped to a misdemeanor charge. Patient will have a $100 fine and 90 days to pay it. Ngoc reports that because of having a charge, [employer] served him with an eviction notice and he is to be out by March 25, 2024. Patient will be appealing that and the status of that is unknown at this time. Shania Blakely RN [facility] 02-18-2024 Instructions Rachel Chery MD - 02/18/2024 5:17 PM EDT -Reschedule your appointment with Dr. Palm for a pre-operative evaluation. - Reschedule your follow-up appointment with Dr. Barrientos to discuss the current state of your toe and potential surgical options. - Continue to apply Aquacell to your toe as instructed by Dr. Barrientos. - Use non-stick dressing and paper tape to secure the dressing in place. - Monitor your toe for any changes in color, pain, or swelling, and report these changes to Dr. Barrientos during your follow-up appointment. - Continue to manage your diabetes and monitor your blood sugar levels regularly. - You will receive a pneumonia vaccine (Prevnar 20) today. - Your healthcare team will work on refilling your medications, including Lisinopril, Leflunomide, Pantoprazole, Lyrica, Buspirone, Atorvastatin, and Trulicity. - Your healthcare team will also work on providing you with incontinence supplies. documented in this encounter [facility] 02-18-2024 History of Present illness Narrative This note was created using [employer]. Subjective Berta Jaramillo is a 58 year old male. Patient presents with: F/U 3 Month SUBJECTIVE: Berta Jaramillo is a 58 year old year old gentleman here today for 3 month follow up appointment for review of medical conditions. The patient is a 58-year-old male with a history of diabetes mellitus, presenting with a non-healing wound on the right great toe and recent onset of urinary incontinence. The patient has been experiencing a non-healing wound on the right great toe since March of last year. He has been under the care of Dr. Barrientos, a veterans service representative, but has not attended recent appointments due to personal issues. The patient reports that the wound has been worsening despite following the prescribed treatment, which includes wrapping the toe and applying Aquacel. He notes that the toe has developed black discoloration and peeling, which he believes is abnormal. The patient has requested amputation of the toe, but Dr. Barrientos has recommended a partial amputation instead. The patient has not seen Dr. Barrientos for about a month and last saw him in November. He was supposed to have a pre-operative evaluation with Dr. Bowen, a digital photographer, but missed the appointment. The patient also has a history of a right fifth metatarsal neck fracture, which was healing on MRI, and was advised to wear a surgical shoe. In addition to the wound on the right great toe, the patient reports recent onset of urinary incontinence over the past 1.5-2 months. He describes difficulty making it to the bathroom in time and has been using incontinence supplies. He denies constant leakage, stating that the incontinence occurs when he has a strong urge to urinate. The patient has a history of diabetes mellitus, with his last A1c in October being 6.9%, an improvement from May. He is not currently following up with endocrinology and does not have a scheduled appointment. He is on multiple medications, including lisinopril, leflunomide, pantoprazole, Lyrica, atorvastatin, and Trulicity. He has stopped taking Zoloft and is unsure about his use of Cymbalta and Zetia. He is also on Buspar, which was recently increased to 15 mg TID. PAST MEDICAL HISTORY Diagnosis Date Atopic eczema Benign prostatic hyperplasia with urinary hesitancy Chronic anemia Depression Depression Diabetes mellitus (HCC) Essential hypertension Gastroesophageal reflux disease without esophagitis Generalized anxiety disorder Hypercholesterolemia Neuropathy Osteomyelitis of right foot (HCC) Tobacco use Current Outpatient Medications Medication Sig pregabalin (LYRICA) 225 mg capsule Take 1 capsule by mouth three times a day for 90 days. amLODIPine (NORVASC) 5 mg tablet Take 1 tablet by mouth once daily. May also take 1 tablet once daily as needed (For BP over 150/95). insulin glargine (BASAGLAR KWIKPEN U-100 INSULIN) 100 unit/mL (3 mL) Inject 10 Units subcutaneously daily at bedtime. Will adjust insulin orders as needed and send new RX when dose adjusted metFORMIN (GLUCOPHAGE) 1,000 mg tablet Take 1,000 mg by mouth two times a day with meals. insulin aspart (NOVOLOG FLEXPEN U-100 INSULIN SUBCUTANEOUS) Inject 8 Units subcutaneously daily at 6 am. insulin aspart human (NOVOLOG) 100 unit/ml soln Inject 4 Units subcutaneously two times a day. insulin aspart (NOVOLOG FLEXPEN U-100 INSULIN SUBCUTANEOUS) Inject 2 Units subcutaneously daily at bedtime. multivit,calc,mins/iron/folic (THERA-M ORAL) Take 1 tablet by mouth daily at 6 am. loperamide HCl (IMODIUM A-D) 2 mg tab Take 2 mg by mouth every 6 hours as needed. dulaglutide (TRULICITY) 1.5 mg/0.5 mL pen injector Inject 1.5 mg subcutaneously one time a week. (Patient taking differently: Inject 1.7 mL subcutaneously one time a week.) insulin aspart U-100 (NOVOLOG FLEXPEN U-100 INSULIN) 100 unit/mL (3 mL) USE SLIDING SCALE ONLY. Sliding scale 150=0, 151-200-1 units, 201-250=2 units, 251-300=3 units, 301-350=4 units, 351-400=5 units based on pre meal blood sugar only as needed. fluticasone (FLONASE) 50 mcg/actuation nasal spray Use 2 Sprays in each nostril once daily as needed for cold/allergy symptoms. Rinse mouth after use. DUPIXENT SYRINGE 300 mg/2 mL injection Inject 300 mg subcutaneously every 2 weeks. busPIRone (BUSPAR) 5 mg tablet Take 1 tablet by mouth three times a day. (Patient taking differently: Take 10 mg by mouth three times a day.) ascorbic acid, vitamin C, (VITAMIN C) 500 mg tablet Take 1 tablet by mouth once daily. aspirin 81 mg cap Take 1 Each by mouth once daily. sertraline (ZOLOFT) 100 mg tablet Take 1.5 tablets by mouth once daily. (Patient taking differently: Take 100 mg by mouth once daily.) Insulin Celeste, Disposable, (PEN NEEDLE) 32 gauge x 5/32 Inject 1 Each subcutaneously every 24 hours. Give with each insulin administration. blood sugar diagnostic (BLOOD GLUCOSE TEST) test strip Test blood sugar(s) 4 times daily and PRN. Dx: Type 2 DM - Controlled E11.9 Insulin: Yes Lancets lancets Test blood sugar(s) 4 times daily and prn. Dx: Type 2 DM - Controlled E11.9 Insulin: Yes alcohol swabs Apply 1 Each to affected area four times daily. Blood-Glucose Meter 1 Each four times daily. Cholecalciferol, Vitamin D3, 125 mcg (5,000 unit) cap Take 1 tab daily with food. melatonin 10 mg cap Take 1 capsule by mouth daily at bedtime. Blood-Glucose Meter,Continuous (DEXCOM G7 COTTON WEIGHER) misc Dispense one chief innovation officer kit. USE FOR CONTINUOUS GLUCOSE MONITORING. MULTIPLE INSULIN INJECTIONS. E11.9 Blood-Glucose Sensor (Q1 LabsCOM G7 SENSOR) kimberly CHANGE SENSOR EVERY 10 days. USE FOR CONTINUOUS GLUCOSE MONITORING. MULTIPLE INSULIN INJECTIONS. E11.9 cyanocobalamin (VITAMIN B-12) 1,000 mcg tab Take 1 tablet by mouth once daily. ondansetron orally disintegrating (ZOFRAN ODT) 4 mg disintegrating tablet Take 4 mg by mouth every 8 hours as needed for nausea/vomiting. collagenase (SANTYL) ointment Apply to affected area once daily. APPLY TO AFFECTED AREA (Patient not taking: Reported on 09/13/2023) amitriptyline (ELAVIL) 50 mg tablet Take 1 tablet by mouth daily at bedtime. buPROPion SR (WELLBUTRIN SR) 150 mg 12 hr tablet Take 1 tablet by mouth two times a day. (Patient not taking: Reported on 09/13/2023) tamsulosin (FLOMAX) 0.4 mg Take 2 capsules by mouth once daily. sucralfate (CARAFATE) 1 gram tablet Take 1 tablet by mouth four times daily. pantoprazole DR (PROTONIX) 40 mg tablet Take 1 tablet by mouth once daily. metoprolol tartrate, short acting, (LOPRESSOR) 25 mg tablet Take 1 tablet by mouth two times a day. lisinopril (ZESTRIL) 10 mg tablet Take 1 tablet by mouth once daily. leflunomide (ARAVA) 10 mg tablet Take 1 tablet by mouth once daily. pen needle, diabetic, safety 31 gauge x 5/16 ndle Use as directed with insulin pen Blood-Glucose Transmitter (Q1 LabsCOM G6 TRANSMITTER) kimberly Apply new transmitter every 90 days. Clean transmitter with an alcohol swab with each sensor change. ezetimibe (ZETIA) 10 mg tablet Take 1 tablet by mouth once daily. atorvastatin (LIPITOR) 80 mg tablet Take 1 tablet by mouth once daily. DULoxetine (CYMBALTA) 60 mg capsule Take 1 capsule by mouth once daily. (Patient not taking: Reported on 09/13/2023) Gauze Bandage 4 X 4 bndg Apply 1 application to affected area once daily. Gauze Bandage (GAUZE ROLL) 2 X 2 -yard bndg Apply 1 application to affected area once daily. meclizine (ANTIVERT) 25 mg tab Take 1 tablet by mouth every 6 hours as needed (dizziness). albuterol HFA (PROVENTIL HFA, VENTOLIN HFA) 90 mcg/actuation inhaler Inhale 2 Puffs as instructed every 4 hours as needed for wheezing/shortness of breath. Lancets lancets Test blood sugar(s) 1 times daily and as needed. Dx: Type 2 DM - Controlled E11.9 Insulin: No triamcinolone acetonide (KENALOG) 0.1 % cream Apply 1 application to affected area twice daily. Apply sparingly to area for rash/itching. Once rash on hands improves, go to treating 2 day per week (Patient not taking: Reported on 09/13/2023) No current facility-administered medications for this visit. Review of Systems Objective BP 107/64 Pulse 89 Temp 36.7 C (98.1 F) Resp 16 SpO2 100% Physical Exam Vitals reviewed. Constitutional: Appearance: Normal appearance. Eyes: Conjunctiva/sclera: Conjunctivae normal. Cardiovascular: Rate and Rhythm: Normal rate and regular rhythm. Heart sounds: Normal heart sounds. Pulmonary: Effort: Pulmonary effort is normal. Breath sounds: Normal breath sounds. Musculoskeletal: Right lower leg: Edema present. Left lower leg: Edema present. Comments: See images for pictures of right great toe Skin: General: Skin is warm and dry. Neurological: General: No focal deficit present. Mental Status: He is alert and oriented to person, place, and time. Psychiatric: Mood and Affect: Mood normal. Behavior: Behavior normal. Thought Content: Thought content normal. Judgment: Judgment normal. Hemoglobin A1C (%) Date Value 09/13/2023 6.7 05/19/2023 8.2 10/22/2022 7.2 01/30/2022 7.4 Hemoglobin A1C (POCT) (%) Date Value 11/10/2023 6.9 Latest Ref Rng 01/30/2022 04/24/2022 10/22/2022 10/23/2022 05/19/2023 09/13/2023 09/30/2023 10/25/2023 11/10/2023 WBC 3.70 - 11.00 k/uL 8.12 7.41 7.91 8.24 RBC 4.20 - 6.00 m/uL 4.27 4.26 3.71 (L) 4.19 (L) Hemoglobin 13.0 - 17.0 g/dL 11.0 (L) 10.7 (L) 8.8 (L) 9.8 (L) Hematocrit 39.0 - 51.0 % 32.4 (L) 31.9 (L) 26.0 (L) 28.9 (L) MCV 80.0 - 100.0 fL 75.9 (L) 74.9 (L) 70.1 (L) 69.0 (L) MCH 26.0 - 34.0 pg 25.8 (L) 25.1 (L) 23.7 (L) 23.4 (L) MCHC 30.5 - 36.0 g/dL 34.0 33.5 33.8 33.9 RDW-CV 11.5 - 15.0 % 19.0 (H) 19.7 (H) 20.1 (H) 20.6 (H) Platelet Count 150 - 400 k/uL 248 233 285 276 MPV 9.0 - 12.7 fL 10.8 10.9 9.7 9.7 Neut% % 57.3 52.9 60.7 Abs Neut (ANC) 1.45 - 7.50 k/uL 4.66 3.92 4.81 Lymph% % 29.7 31.2 28.6 Abs Lymph 1.00 - 4.00 k/uL 2.41 2.31 2.26 [place]% % 6.7 7.3 6.6 Abs [place] <0.87 k/uL 0.54 0.54 0.52 Eosin% % 5.2 6.9 3.2 Abs Eosin <0.46 k/uL 0.42 0.51 (H) 0.25 Baso% % 0.9 1.2 0.6 Abs Baso <0.11 k/uL 0.07 0.09 0.05 Immature Gran % % 0.2 0.5 0.3 IMMATURE GRANS (ABS) <0.10 k/uL <0.03 0.04 <0.03 NRBC /100 WBC 0.0 0.0 0.0 Absolute nRBC <0.01 k/uL <0.01 <0.01 <0.01 <0.01 DTYPE Auto Auto Auto Protein, Total 6.3 - 8.0 g/dL 7.1 7.2 7.1 Albumin 3.9 - 4.9 g/dL 4.0 3.8 (L) 3.8 (L) Calcium 8.5 - 10.2 mg/dL 9.0 9.0 8.8 9.0 8.9 Bilirubin, Total 0.2 - 1.3 mg/dL 0.2 <0.2 (L) <0.2 (L) Alkaline Phosphatase 38 - 113 U/L 141 (H) 113 105 AST 14 - 40 U/L 13 (L) 11 (L) 7 (L) ALT 10 - 54 U/L 14 5 (L) <5 (L) Glucose 74 - 99 mg/dL 169 (H) 204 (H) 241 (H) 58 (L) 76 BUN 9 - 24 mg/dL 11 15 14 8 (L) 8 (L) Creatinine 0.73 - 1.22 mg/dL 0.94 1.02 0.97 0.84 0.77 Sodium 136 - 144 mmol/L 139 138 137 139 140 Potassium 3.7 - 5.1 mmol/L 5.1 5.3 (H) 5.1 4.4 3.9 Chloride 97 - 105 mmol/L 103 104 104 105 105 CO2 22 - 30 mmol/L 27 24 26 25 31 (H) Anion Gap 9 - 18 mmol/L 9 10 7 (L) 9 4 (L) eGFR >=60 mL/min/1.73m 96 87 92 102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 each insulin administration. blood sugar diagnostic (BLOOD GLUCOSE TEST) test strip Test blood sugar(s) 4 times daily and PRN. Dx: Type 2 DM - Controlled E11.9 Insulin: Yes Lancets lancets Test blood sugar(s) 4 times daily and prn. Dx: Type 2 DM - Controlled E11.9 Insulin: Yes alcohol swabs Apply 1 Each to affected area four times daily. Blood-Glucose Meter 1 Each four times daily. Cholecalciferol, Vitamin D3, 125 mcg (5,000 unit) cap Take 1 tab daily with food. melatonin 10 mg cap Take 1 capsule by mouth daily at bedtime. Blood-Glucose Meter,Continuous (DEXCOM G7 COTTON WEIGHER) [facility] Dispense one chief innovation officer kit. USE FOR CONTINUOUS GLUCOSE MONITORING. MULTIPLE INSULIN INJECTIONS. E11.9 Blood-Glucose Sensor (DEXCOM G7 SENSOR) kimberly CHANGE SENSOR EVERY 10 days. USE FOR CONTINUOUS GLUCOSE MONITORING. MULTIPLE INSULIN INJECTIONS. E11.9 cyanocobalamin (VITAMIN B-12) 1,000 mcg tab Take 1 tablet by mouth once daily. ondansetron orally disintegrating (ZOFRAN ODT) 4 mg disintegrating tablet Take 4 mg by mouth every 8 hours as needed for nausea/vomiting. amitriptyline (ELAVIL) 50 mg tablet Take 1 tablet by mouth daily at bedtime. tamsulosin (FLOMAX) 0.4 mg Take 2 capsules by mouth once daily. sucralfate (CARAFATE) 1 gram tablet Take 1 tablet by mouth four times daily. pantoprazole DR (PROTONIX) 40 mg tablet Take 1 tablet by mouth once daily. metoprolol tartrate, short acting, (LOPRESSOR) 25 mg tablet Take 1 tablet by mouth two times a day. lisinopril (ZESTRIL) 10 mg tablet Take 1 tablet by mouth once daily. leflunomide (ARAVA) 10 mg tablet Take 1 tablet by mouth once daily. pen needle, diabetic, safety 31 gauge x 5/16 ndle Use as directed with insulin pen Blood-Glucose Transmitter ([employer] G6 TRANSMITTER) kimberly Apply new transmitter every 90 days. Clean transmitter with an alcohol swab with each sensor change. ezetimibe (ZETIA) 10 mg tablet Take 1 tablet by mouth once daily. atorvastatin (LIPITOR) 80 mg tablet Take 1 tablet by mouth once daily. Gauze Bandage 4 X 4 bndg Apply 1 application to affected area once daily. Gauze Bandage (GAUZE ROLL) 2 X 2 -yard bndg Apply 1 application to affected area once daily. meclizine (ANTIVERT) 25 mg tab Take 1 tablet by mouth every 6 hours as needed (dizziness). albuterol HFA (PROVENTIL HFA, VENTOLIN HFA) 90 mcg/actuation inhaler Inhale 2 Puffs as instructed every 4 hours as needed for wheezing/shortness of breath. Lancets lancets Test blood sugar(s) 1 times daily and as needed. Dx: Type 2 DM - Controlled E11.9 Insulin: No collagenase (SANTYL) ointment Apply to affected area once daily. APPLY TO AFFECTED AREA (Patient not taking: Reported on 09/13/2023) buPROPion SR (WELLBUTRIN SR) 150 mg 12 hr tablet Take 1 tablet by mouth two times a day. (Patient not taking: Reported on 09/13/2023) DULoxetine (CYMBALTA) 60 mg capsule Take 1 capsule by mouth once daily. (Patient not taking: Reported on 09/13/2023) triamcinolone acetonide (KENALOG) 0.1 % cream Apply 1 application to affected area twice daily. Apply sparingly to area for rash/itching. Once rash on hands improves, go to treating 2 day per week (Patient not taking: Reported on 09/13/2023) No current facility-administered medications for this visit. ALLERGIES No Known Allergies PAST SURGICAL HISTORY Procedure Laterality Date KNEE SURGERY HX Right Physical Exam: OBJECTIVE: Constitutional: Pt is a well developed 58 year old male who is alert, oriented, cooperative and in no apparent distress. Eyes: Following during examination. No redness or drainage. Respiratory: RR normal and nonlabored. Even breathing. No evidence of distress. Psychology: Patient is engaged during conversation. Normal affect and mood. Does not appear depressed or anxious. NVSI unchanged from previous visit. Dermatological: Ulceration #1 Location: right hallux Measurement: 9 mm x 4mm Base: granular with periwound hyperkeratosis No exposed bone. No local signs of infection. Musculoskeletal/Orthopaedic: Patient has no pain to palpation of right foot Mri reviewed of right foot. No change in bone infection to distal tuft of right hallux. Mri does confirm fracture of right 5th metatarsal neck with healing ASSESSMENT: (L97.512) Ulcer of toe of right foot, with fat layer exposed ([facility]) (primary encounter diagnosis) (S92.301D) Closed nondisplaced fracture of metatarsal bone of right foot with routine healing, unspecified metatarsal, subsequent encounter PLAN: Discussed ulceration of right foot. Ulceration remains stable. Reviewed mri. Mri confirms osteomyelitis of the distal tuft without any progression or worsening. Again discussed partial syme amputation. I think a partial hallux amputation is still reasonable to consider compared to total hallux amputation provided there is enough soft-tissue for closure. Will plan for partial hallux amputation. I offered amputation in 2 weeks but patient has a court hearing so will not be able to pursue. I will try to find time in the coming month. I still want him to get cleared by hematology given other issues he has made us and pcp aware of. Ulceration was debrided of nonviable tissue with tissue nippers. Total debridement was 8 mm x 4 mm. Will contineu with aquacel and surgical shoe. Discussed fracture of right 5th metatarsal. No known injury. Fracture appears to be healing. Continue with surgical shoe and nwb All Barrientos DPM documented in this encounter [facility] 12-07-2023 Note IMPRESSION: No further acute bone destruction of the great toe to suggest progression of osteomyelitis. Healing distal fifth metatarsal fracture. Hookman: BRYCE Transcribe Date/Time: Dec 07 2023 11:15A Dictated by : SARAH MYRICK MD This examination was interpreted and the report reviewed and electronically signed by: SARAH MYRICK MD on Dec 07 2023 11:21AM [facility] DIVISION OF RADIOLOGY 12-07-2023 History of Present illness Narrative Radiology Service Progress Note PATIENT NAME: Berta Jaramillo DATE OF SERVICE: December 07, 2023 TIME: 10:05 AM PATIENT IDENTITY VERIFICATION COMPLETED USING TWO (2) IDENTIFIERS: Name and Date of confirmed by patient verbally. FALL SCREENING: Has the patient had 2 falls in the last year or 1 fall with injury or currently using an Ambulatory Assistive Device (Walker, Cane, Wheelchair, Crutches, etc.)? Yes, Patient High Risk for Falls What interventions were put in place to prevent falls during this visit? Instructed Patient to Call for Help if Needed, Offered Assistance with Transfers/Clothing, Instructed Patient to Remain Seated (Not on Exam Table) Until Exam, and Increased Observations by Caregivers PATIENT GENDER DATA: Male PATIENT RELEVANT IMPLANT DATA REVIEWED: Yes PATIENT PRESENTS WITH AN IMPLANTABLE OR ATTACHED TANK BUILDER AND ERECTOR: No RADIOLOGY DEPARTMENT: MR; Exam(s) Completed: Lower MSK: Forefoot/Midfoot, right PERIPHERAL IV DATA: Not applicable SIGNED BY: LIZETT Reynolds) December 07, 2023 10:05 AM documented in this encounter [facility] 12-07-2023 Note HNO ID: [id number] Author: ZOYA GILMORE RT(R) Service: ? Author Type: Technologist Type: Progress Notes Filed: 12/07/2023 10:05 Note Text: Radiology Service Progress Note PATIENT NAME: Berta Jaramillo DATE OF SERVICE: December 07, 2023 TIME: 10:05 AM PATIENT IDENTITY VERIFICATION COMPLETED USING TWO (2) IDENTIFIERS: Name and Date of confirmed by patient verbally. FALL SCREENING: Has the patient had 2 falls in the last year or 1 fall with injury or currently using an Ambulatory Assistive Device (Walker, Cane, Wheelchair, Crutches, etc.)? Yes, Patient High Risk for Falls What interventions were put in place to prevent falls during this visit? Instructed Patient to Call for Help if Needed, Offered Assistance with Transfers/Clothing, Instructed Patient to Remain Seated (Not on Exam Table) Until Exam, and Increased Observations by Caregivers PATIENT GENDER DATA: Male PATIENT RELEVANT IMPLANT DATA REVIEWED: Yes PATIENT PRESENTS WITH AN IMPLANTABLE OR ATTACHED TANK BUILDER AND ERECTOR: No RADIOLOGY DEPARTMENT: MR; Exam(s) Completed: Lower MSK: Forefoot/Midfoot, right PERIPHERAL IV DATA: Not applicable SIGNED BY: RT Gail(R) December 07, 2023 10:05 AM [facility] 12-03-2023 History of Present illness Narrative Radiology Service Progress Note PATIENT NAME: Berta Jaramillo DATE OF SERVICE: December 03, 2023 TIME: 11:15 AM PATIENT IDENTITY VERIFICATION COMPLETED USING TWO (2) IDENTIFIERS: Name and Date of confirmed by patient verbally. FALL SCREENING: Has the patient had 2 falls in the last year or 1 fall with injury or currently using an Ambulatory Assistive Device (Walker, Cane, Wheelchair, Crutches, etc.)? Yes, Patient High Risk for Falls What interventions were put in place to prevent falls during this visit? done in electric chair PATIENT GENDER DATA: Male PATIENT RELEVANT IMPLANT DATA REVIEWED: Not Applicable PATIENT PRESENTS WITH AN IMPLANTABLE OR ATTACHED TANK BUILDER AND ERECTOR: No RADIOLOGY DEPARTMENT: General X-ray: Exam(s) Completed: Lower Extremity X-Ray(s): Foot, Right PERIPHERAL IV DATA: Not applicable SIGNED BY: RT Nathaniel(Jennifer) December 03, 2023 11:15 AM documented in this encounter [facility] 12-03-2023 Note HNO ID: [id number] Author: AR MCKEE RT(R) Service: Radiology Author Type: Technologist Type: Progress Notes Filed: 12/03/2023 11:25 Note Text: Radiology Service Progress Note PATIENT NAME: Berta Jaramillo DATE OF SERVICE: December 03, 2023 TIME: 11:15 AM PATIENT IDENTITY VERIFICATION COMPLETED USING TWO (2) IDENTIFIERS: Name and Date of confirmed by patient verbally. FALL SCREENING: Has the patient had 2 falls in the last year or 1 fall with injury or currently using an Ambulatory Assistive Device (Walker, Cane, Wheelchair, Crutches, etc.)? Yes, Patient High Risk for Falls What interventions were put in place to prevent falls during this visit? done in electric chair PATIENT GENDER DATA: Male PATIENT RELEVANT IMPLANT DATA REVIEWED: Not Applicable PATIENT PRESENTS WITH AN IMPLANTABLE OR ATTACHED TANK BUILDER AND ERECTOR: No RADIOLOGY DEPARTMENT: General X-ray: Exam(s) Completed: Lower Extremity X-Ray(s): Foot, Right PERIPHERAL IV DATA: Not applicable SIGNED BY: RT Nathaniel(R) December 03, 2023 11:15 AM [facility] 12-03-2023 Instructions All Barrientos - 12/03/2023 10:44 AM EDT [place] the toe with betadine and apply aquacel to central aspect of ulcerat Do this daily Get xray documented in this encounter [facility] 12-03-2023 Note HNO ID: [id number] Author: ALL BARRIENTOS, ? Service: ? Author Type: Physician Type: Progress Notes Filed: 12/06/2023 12:59 Note Text: FOLLOW UP PODIATRIC OFFICE VISIT Chief Complaint: This 58 year old who presents for follow up:right hallux ulceration Patient presents to clinic for follow-up right hallux ulceration. Patient has not been seen since 10/25/23. Had other issues going on that he needed to address Applying aquacel to the wound. States that the wound healed over the last month but has since returned. Applied santyl to the wound yesterday. PAIN EVALUATION No data found in the last 1 encounters. Hemoglobin A1C (POCT) Date Value Ref Range Status 11/10/2023 6.9 (A) 4.3 - 5.6 % Final Comment: Location:[facility], [address], [place], [address] Point of care (POC) Hemoglobin A1c (HGBA1C) testing is intended to assess glucose control and provide a management tool for patients known to have diabetes and their healthcare providers. Target HGBA1C levels may depend on specific clinical circumstances. POC HGBA1C is not intended for use as a diagnostic or screening test; laboratory-based testing should be used for diagnostic purposes. The following information is supplemental and may not be applicable to specific diabetes management situations: The POC device general manager road production provides a normal range of 4.2% to 6.5% for the HGBA1C POC test. However, the [place] [employer] guidelines indicate that patients with HGBA1C in the range of 5.7% to 6.4% are at increased risk for development of diabetes and that intervention by lifestyle modification may be beneficial. A HGBA1C level greater than or equal to 6.5% is considered diagnostic of diabetes, pending confirmatory testing. Use of HGBA1C testing to evaluate glucose control may not be appropriate for patients with hemoglobin variants or other conditions (e.g. anemia) that alter red blood cell lifespan. PCP: Rachel Chery MD PAST MEDICAL HISTORY Diagnosis Date Atopic eczema Benign prostatic hyperplasia with urinary hesitancy Chronic anemia Depression Depression Diabetes mellitus (HCC) Essential hypertension Gastroesophageal reflux disease without esophagitis Generalized anxiety disorder Hypercholesterolemia Neuropathy Osteomyelitis of right foot (HCC) Tobacco use Current Outpatient Medications Medication Sig pregabalin (LYRICA) 225 mg capsule Take 1 capsule by mouth three times a day for 90 days. amLODIPine (NORVASC) 5 mg tablet Take 1 tablet by mouth once daily. May also take 1 tablet once daily as needed (For BP over 150/95). insulin glargine (BASAGLAR KWIKPEN U-100 INSULIN) 100 unit/mL (3 mL) Inject 10 Units subcutaneously daily at bedtime. Will adjust insulin orders as needed and send new RX when dose adjusted metFORMIN (GLUCOPHAGE) 1,000 mg tablet Take 1,000 mg by mouth two times a day with meals. insulin aspart (NOVOLOG FLEXPEN U-100 INSULIN SUBCUTANEOUS) Inject 8 Units subcutaneously daily at 6 am. insulin aspart human (NOVOLOG) 100 unit/ml soln Inject 4 Units subcutaneously two times a day. insulin aspart (NOVOLOG FLEXPEN U-100 INSULIN SUBCUTANEOUS) Inject 2 Units subcutaneously daily at bedtime. multivit,calc,mins/iron/folic (THERA-M ORAL) Take 1 tablet by mouth daily at 6 am. loperamide HCl (IMODIUM A-D) 2 mg tab Take 2 mg by mouth every 6 hours as needed. dulaglutide (TRULICITY) 1.5 mg/0.5 mL pen injector Inject 1.5 mg subcutaneously one time a week. (Patient taking differently: Inject 1.7 mL subcutaneously one time a week.) insulin aspart U-100 (NOVOLOG FLEXPEN U-100 INSULIN) 100 unit/mL (3 mL) USE SLIDING SCALE ONLY. Sliding scale 150=0, 151-200-1 units, 201-250=2 units, 251-300=3 units, 301-350=4 units, 351-400=5 units based on pre meal blood sugar only as needed. fluticasone (FLONASE) 50 mcg/actuation nasal spray Use 2 Sprays in each nostril once daily as needed for cold/allergy symptoms. Rinse mouth after use. DUPIXENT SYRINGE 300 mg/2 mL injection Inject 300 mg subcutaneously every 2 weeks. busPIRone (BUSPAR) 5 mg tablet Take 1 tablet by mouth three times a day. (Patient taking differently: Take 10 mg by mouth three times a day.) ascorbic acid, vitamin C, (VITAMIN C) 500 mg tablet Take 1 tablet by mouth once daily. aspirin 81 mg cap Take 1 Each by mouth once daily. sertraline (ZOLOFT) 100 mg tablet Take 1.5 tablets by mouth once daily. (Patient taking differently: Take 100 mg by mouth once daily.) Insulin Celeste, Disposable, (PEN NEEDLE) 32 gauge x 5/32 Inject 1 Each subcutaneously every 24 hours. Give with each insulin administration. blood sugar diagnostic (BLOOD GLUCOSE TEST) test strip Test blood sugar(s) 4 times daily and PRN. Dx: Type 2 DM - Controlled E11.9 Insulin: Yes Lancets lancets Test blood sugar(s) 4 times daily and prn. Dx: Type 2 DM - Controlled E11.9 Insulin: Yes alcohol swabs Apply 1 Each to affected area (more content not included)... [facility] 12-03-2023 History of Present illness Narrative FOLLOW UP PODIATRIC OFFICE VISIT Chief Complaint: This 58 year old who presents for follow up:right hallux ulceration Patient presents to clinic for follow-up right hallux ulceration. Patient has not been seen since 10/25/23. Had other issues going on that he needed to address Applying aquacel to the wound. States that the wound healed over the last month but has since returned. Applied santyl to the wound yesterday. PAIN EVALUATION No data found in the last 1 encounters. Hemoglobin A1C (POCT) Date Value Ref Range Status 11/10/2023 6.9 (A) 4.3 - 5.6 % Final Comment: Location:[facility], [address], [place], [address] Point of care (POC) Hemoglobin A1c (HGBA1C) testing is intended to assess glucose control and provide a management tool for patients known to have diabetes and their healthcare providers. Target HGBA1C levels may depend on specific clinical circumstances. POC HGBA1C is not intended for use as a diagnostic or screening test; laboratory-based testing should be used for diagnostic purposes. The following information is supplemental and may not be applicable to specific diabetes management situations: The POC device general manager road production provides a normal range of 4.2% to 6.5% for the HGBA1C POC test. However, the [place] [employer] guidelines indicate that patients with HGBA1C in the range of 5.7% to 6.4% are at increased risk for development of diabetes and that intervention by lifestyle modification may be beneficial. A HGBA1C level greater than or equal to 6.5% is considered diagnostic of diabetes, pending confirmatory testing. Use of HGBA1C testing to evaluate glucose control may not be appropriate for patients with hemoglobin variants or other conditions (e.g. anemia) that alter red blood cell lifespan. PCP: Rachel Chery MD PAST MEDICAL HISTORY Diagnosis Date Atopic eczema Benign prostatic hyperplasia with urinary hesitancy Chronic anemia Depression Depression Diabetes mellitus (HCC) Essential hypertension Gastroesophageal reflux disease without esophagitis Generalized anxiety disorder Hypercholesterolemia Neuropathy Osteomyelitis of right foot (HCC) Tobacco use Current Outpatient Medications Medication Sig pregabalin (LYRICA) 225 mg capsule Take 1 capsule by mouth three times a day for 90 days. amLODIPine (NORVASC) 5 mg tablet Take 1 tablet by mouth once daily. May also take 1 tablet once daily as needed (For BP over 150/95). insulin glargine (BASAGLAR KWIKPEN U-100 INSULIN) 100 unit/mL (3 mL) Inject 10 Units subcutaneously daily at bedtime. Will adjust insulin orders as needed and send new RX when dose adjusted metFORMIN (GLUCOPHAGE) 1,000 mg tablet Take 1,000 mg by mouth two times a day with meals. insulin aspart (NOVOLOG FLEXPEN U-100 INSULIN SUBCUTANEOUS) Inject 8 Units subcutaneously daily at 6 am. insulin aspart human (NOVOLOG) 100 unit/ml soln Inject 4 Units subcutaneously two times a day. insulin aspart (NOVOLOG FLEXPEN U-100 INSULIN SUBCUTANEOUS) Inject 2 Units subcutaneously daily at bedtime. multivit,calc,mins/iron/folic (THERA-M ORAL) Take 1 tablet by mouth daily at 6 am. loperamide HCl (IMODIUM A-D) 2 mg tab Take 2 mg by mouth every 6 hours as needed. dulaglutide (TRULICITY) 1.5 mg/0.5 mL pen injector Inject 1.5 mg subcutaneously one time a week. (Patient taking differently: Inject 1.7 mL subcutaneously one time a week.) insulin aspart U-100 (NOVOLOG FLEXPEN U-100 INSULIN) 100 unit/mL (3 mL) USE SLIDING SCALE ONLY. Sliding scale 150=0, 151-200-1 units, 201-250=2 units, 251-300=3 units, 301-350=4 units, 351-400=5 units based on pre meal blood sugar only as needed. fluticasone (FLONASE) 50 mcg/actuation nasal spray Use 2 Sprays in each nostril once daily as needed for cold/allergy symptoms. Rinse mouth after use. DUPIXENT SYRINGE 300 mg/2 mL injection Inject 300 mg subcutaneously every 2 weeks. busPIRone (BUSPAR) 5 mg tablet Take 1 tablet by mouth three times a day. (Patient taking differently: Take 10 mg by mouth three times a day.) ascorbic acid, vitamin C, (VITAMIN C) 500 mg tablet Take 1 tablet by mouth once daily. aspirin 81 mg cap Take 1 Each by mouth once daily. sertraline (ZOLOFT) 100 mg tablet Take 1.5 tablets by mouth once daily. (Patient taking differently: Take 100 mg by mouth once daily.) Insulin Celeste, Disposable, (PEN NEEDLE) 32 gauge x 5/32 Inject 1 Each subcutaneously every 24 hours. Give with each insulin administration. blood sugar diagnostic (BLOOD GLUCOSE TEST) test strip Test blood sugar(s) 4 times daily and PRN. Dx: Type 2 DM - Controlled E11.9 Insulin: Yes Lancets lancets Test blood sugar(s) 4 times daily and prn. Dx: Type 2 DM - Controlled E11.9 Insulin: Yes alcohol swabs Apply 1 Each to affected area four times daily. Blood-Glucose Meter 1 Each four times daily. Cholecalciferol, Vitamin D3, 125 mcg (5,000 unit) cap Take 1 tab daily with food. melatonin 10 mg cap Take 1 capsule by mouth daily at bedtime. Blood-Glucose Meter,Continuous (DEXCOM G7 COTTON WEIGHER) [facility] Dispense one chief innovation officer kit. USE FOR CONTINUOUS GLUCOSE MONITORING. MULTIPLE INSULIN INJECTIONS. E11.9 Blood-Glucose Sensor (DEXCOM G7 SENSOR) kimberly CHANGE SENSOR EVERY 10 days. USE FOR CONTINUOUS GLUCOSE MONITORING. MULTIPLE INSULIN INJECTIONS. E11.9 cyanocobalamin (VITAMIN B-12) 1,000 mcg tab Take 1 tablet by mouth once daily. ondansetron orally disintegrating (ZOFRAN ODT) 4 mg disintegrating tablet Take 4 mg by mouth every 8 hours as needed for nausea/vomiting. amitriptyline (ELAVIL) 50 mg tablet Take 1 tablet by mouth daily at bedtime. tamsulosin (FLOMAX) 0.4 mg Take 2 capsules by mouth once daily. sucralfate (CARAFATE) 1 gram tablet Take 1 tablet by mouth four times daily. pantoprazole DR (PROTONIX) 40 mg tablet Take 1 tablet by mouth once daily. metoprolol tartrate, short acting, (LOPRESSOR) 25 mg tablet Take 1 tablet by mouth two times a day. lisinopril (ZESTRIL) 10 mg tablet Take 1 tablet by mouth once daily. leflunomide (ARAVA) 10 mg tablet Take 1 tablet by mouth once daily. pen needle, diabetic, safety 31 gauge x 5/16 ndle Use as directed with insulin pen Blood-Glucose Transmitter (DEXCOM G6 TRANSMITTER) kimberly Apply new transmitter every 90 days. Clean transmitter with an alcohol swab with each sensor change. ezetimibe (ZETIA) 10 mg tablet Take 1 tablet by mouth once daily. atorvastatin (LIPITOR) 80 mg tablet Take 1 tablet by mouth once daily. Gauze Bandage 4 X 4 bndg Apply 1 application to affected area once daily. Gauze Bandage (GAUZE ROLL) 2 X 2 -yard bndg Apply 1 application to affected area once daily. meclizine (ANTIVERT) 25 mg tab Take 1 tablet by mouth every 6 hours as needed (dizziness). albuterol HFA (PROVENTIL HFA, VENTOLIN HFA) 90 mcg/actuation inhaler Inhale 2 Puffs as instructed every 4 hours as needed for wheezing/shortness of breath. Lancets lancets Test blood sugar(s) 1 times daily and as needed. Dx: Type 2 DM - Controlled E11.9 Insulin: No collagenase (SANTYL) ointment Apply to affected area once daily. APPLY TO AFFECTED AREA (Patient not taking: Reported on 09/13/2023) buPROPion SR (WELLBUTRIN SR) 150 mg 12 hr tablet Take 1 tablet by mouth two times a day. (Patient not taking: Reported on 09/13/2023) DULoxetine (CYMBALTA) 60 mg capsule Take 1 capsule by mouth once daily. (Patient not taking: Reported on 09/13/2023) triamcinolone acetonide (KENALOG) 0.1 % cream Apply 1 application to affected area twice daily. Apply sparingly to area for rash/itching. Once rash on hands improves, go to treating 2 day per week (Patient not taking: Reported on 09/13/2023) No current facility-administered medications for this visit. ALLERGIES No Known Allergies PAST SURGICAL HISTORY Procedure Laterality Date KNEE SURGERY HX Right Physical Exam: OBJECTIVE: Constitutional: Pt is a well developed 58 year old male who is alert, oriented, cooperative and in no apparent distress. Eyes: Following during examination. No redness or drainage. Respiratory: RR normal and nonlabored. Even breathing. No evidence of distress. Psychology: Patient is engaged during conversation. Normal affect and mood. Does not appear depressed or anxious. NVSI unchanged from previous visit. Dermatological: Ulceration #1 Location: right hallux Measurement: 1.0 cm x 4 mm Base: hyperkeratotic No local signs of infection Musculoskeletal/Orthopaedic: Patient has no pain to palpation of b/l feet ASSESSMENT: (L97.512) Ulcer of toe of right foot, with fat layer exposed (HCC) (primary encounter diagnosis) (M86.171) Other acute osteomyelitis of right foot (HCC) PLAN: Discussed chronic ulceration of right hallux Has not been seen in over one month. Today, I am going to recommend getting follow-up xray to evaluate for progression of osteomyelitis In addition, will order mri to see if any proximal spread. If patient is stable medically and this ulceration remains chronic, could consider partial vs total hallux amputation. I still feel that partial hallux amputation would be better penitentiary option but he still would like to proceed with total toe amputation. Will await to see what xrays and mri suggests Ulcerationw as debrided today thru subcutaneous tissue with tissue nipper. Total debridement was about 1.0 cm x 5 mm. Will treat with betadine to periphery and aquacel to central ulceration. Patient presents with: Right Foot - Established Patient, Follow Up, Diabetic Foot Ulcer Patient presents for right foot/toe ulcer follow up. States that he has some pain if he presses down on his foot. Open area to right big toe tip, drainage to dressing noted. Wound edges white. [facility] 10/25/23 documented in this encounter [facility] 12-03-2023 Note HNO ID: [id number] Author: FRANKY MORGAN RN Service: ? Author Type: Registered Nurse Type: Progress Notes Filed: 12/06/2023 12:59 Note Text: Patient presents with: Right Foot - Established Patient, Follow Up, Diabetic Foot Ulcer Patient presents for right foot/toe ulcer follow up. States that he has some pain if he presses down on his foot. Open area to right big toe tip, drainage to dressing noted. Wound edges white. [facility] 10/25/23 [facility] 11-30-2023 Telephone encounter Note The following approved medication requests have been transmitted electronically. Requested Prescriptions Signed Prescriptions Disp Refills pregabalin (LYRICA) 225 mg capsule 90 capsule 2 Sig: Take 1 capsule by mouth three times a day for 90 days. Authorizing Provider: RACHEL CHERY MD [facility] 11-30-2023 Miscellaneous Notes The following approved medication requests have been transmitted electronically. Requested Prescriptions Signed Prescriptions Disp Refills pregabalin (LYRICA) 225 mg capsule 90 capsule 2 Sig: Take 1 capsule by mouth three times a day for 90 days. Authorizing Provider: RACHEL CHERY MD The patient has been identified by name and date of : Yes [facility] Nurse Caregiver verified no other encounters exist for this prescription request: Yes Caregiver confirmed with patient/requestor that no other refills are due, in the near future, with this provider at this time: Yes The last office visit in the department: 11/23/2023 Does the patient have a future office visit with this provider/department: Yes 02/18/2024 Requested Prescriptions Pending Prescriptions Disp Refills pregabalin (LYRICA) 225 mg capsule 90 capsule 2 Sig: Take 1 capsule by mouth three times a day for 90 days. Fariba Corrigan LPN November 30, 2023 2:44 PM documented in this encounter [facility] 11-30-2023 Telephone encounter Note The patient has been identified by name and date of : Yes [facility] Nurse Caregiver verified no other encounters exist for this prescription request: Yes Caregiver confirmed with patient/requestor that no other refills are due, in the near future, with this provider at this time: Yes The last office visit in the department: 11/23/2023 Does the patient have a future office visit with this provider/department: Yes 02/18/2024 Requested Prescriptions Pending Prescriptions Disp Refills pregabalin (LYRICA) 225 mg capsule 90 capsule 2 Sig: Take 1 capsule by mouth three times a day for 90 days. Fariba Corrigan LPN November 30, 2023 2:44 PM [facility] 11-24-2023 Telephone encounter Note Order has been faxed. [facility] 11-24-2023 Miscellaneous Notes Order has been faxed. Communication order printed, please fax. Senait from [facility] needs an order for the patient since he was seen yesterday and PCP had discontinued his Amlodipine 10 mg and changed Amlodipine order to 5 mg daily and additional 5 mg if blood pressure is over 150/95. She needs that in an order and order to do blood pressure checks ? many times daily on the patient. Fax orders to [phone]. She said the after visit summary is not acceptable. Please advise documented in this encounter [facility] 11-24-2023 Telephone encounter Note Communication order printed, please fax. [facility] 11-24-2023 Telephone encounter Note Senait from [facility] needs an order for the patient since he was seen yesterday and PCP had discontinued his Amlodipine 10 mg and changed Amlodipine order to 5 mg daily and additional 5 mg if blood pressure is over 150/95. She needs that in an order and order to do blood pressure checks ? many times daily on the patient. Fax orders to [phone]. She said the after visit summary is not acceptable. Please advise [facility] 11-23-2023 Note HNO ID: [id number] Author: RACHEL CHERY MD Service: ? Author Type: Physician Type: Progress Notes Filed: 11/23/2023 15:34 Note Text: This note was created using [employer]. Subjective Berta Jaramillo is a 58 year old male. Patient presents with: F/U 6 months SUBJECTIVE: Berta Jaramillo is a 58 year old year old gentleman here today for 6 month follow up appointment for review of medical conditions. Just eating 1 meal daily since after eating feels like throwing up. Carafate helps--taking at night time when eats. Eats late at night--cooks for self. Off antibiotics per Dr. Barrientos. Wonders if contributed to nausea and vomiting issues. Sugars up over 300s now that Levemir was stopped complete.yet. Was taking it just 3 time a week before stopped it. Was skipping doses when sugar dropped to 60s.. Tolerating Trulicity. Also using SSI. Noted BP has been getting lower. Mostly drinking coffee--2 a day. A Pepsi at night (regular). Pees maybe twice a day. Has been slowly losing weight. Pain right hip--hurts all night. Hurts to move it to get out of bed then pain resolves. Lateral hip. Finally got motorized wheelchair. Can get around more and get in and out of chair and bed. PAST MEDICAL HISTORY Diagnosis Date Atopic eczema Benign prostatic hyperplasia with urinary hesitancy Chronic anemia Depression Depression Diabetes mellitus (HCC) Essential hypertension Gastroesophageal reflux disease without esophagitis Generalized anxiety disorder Hypercholesterolemia Neuropathy Osteomyelitis of right foot (HCC) Tobacco use Current Outpatient Medications Medication Sig busPIRone (BUSPAR) 5 mg tablet Take 1 tablet by mouth three times a day. sucralfate (CARAFATE) 1 gram tablet Take 1 tablet by mouth four times daily. leflunomide (ARAVA) 10 mg tablet Take 1 tablet by mouth once daily. insulin glargine (BASAGLAR KWIKPEN U-100 INSULIN) 100 unit/mL (3 mL) Inject 16 units once daily E11.9--This was stopped when saw Rossy Martinez (was taking 40 units about 3 days per week metFORMIN ER (GLUCOPHAGE XR) 500 mg 24 hr tablet Take 2 tabs with breakfast, 2 tabs with dinner dulaglutide (TRULICITY) 1.5 mg/0.5 mL pen injector Inject 1.5 mg subcutaneously one time a week. insulin aspart U-100 (NOVOLOG FLEXPEN U-100 INSULIN) 100 unit/mL (3 mL) USE SLIDING SCALE ONLY. Sliding scale 150=0, 151-200-1 units, 201-250=2 units, 251-300=3 units, 301-350=4 units, 351-400=5 units based on pre meal blood sugar only as needed. fluticasone (FLONASE) 50 mcg/actuation nasal spray Use 2 Sprays in each nostril once daily as needed for cold/allergy symptoms. Rinse mouth after use. pregabalin (LYRICA) 225 mg capsule Take 1 capsule by mouth three times a day for 90 days. DUPIXENT SYRINGE 300 mg/2 mL injection Inject 300 mg subcutaneously every 2 weeks. ascorbic acid, vitamin C, (VITAMIN C) 500 mg tablet Take 1 tablet by mouth once daily. aspirin 81 mg cap Take 1 Each by mouth once daily. sertraline (ZOLOFT) 100 mg tablet Take 1.5 tablets by mouth once daily. Insulin Celeste, Disposable, (PEN NEEDLE) 32 gauge x 5/32 Inject 1 Each subcutaneously every 24 hours. Give with each insulin administration. blood sugar diagnostic (BLOOD GLUCOSE TEST) test strip Test blood sugar(s) 4 times daily and PRN. Dx: Type 2 DM - Controlled E11.9 Insulin: Yes Lancets lancets Test blood sugar(s) 4 times daily and prn. Dx: Type 2 DM - Controlled E11.9 Insulin: Yes alcohol swabs Apply 1 Each to affected area four times daily. Blood-Glucose Meter 1 Each four times daily. Cholecalciferol, Vitamin D3, 125 mcg (5,000 unit) cap Take 1 tab daily with food. melatonin 10 mg cap Take 1 capsule by mouth daily at bedtime. Blood-Glucose Meter,Continuous (DEXCOM G7 COTTON WEIGHER) [facility] Dispense one chief innovation officer kit. USE FOR CONTINUOUS GLUCOSE MONITORING. MULTIPLE INSULIN INJECTIONS. E11.9 Blood-Glucose Sensor (DEXCOM G7 SENSOR) kimberly CHANGE SENSOR EVERY 10 days. USE FOR CONTINUOUS GLUCOSE MONITORING. MULTIPLE INSULIN INJECTIONS. E11.9 cyanocobalamin (VITAMIN B-12) 1,000 mcg tab Take 1 tablet by mouth once daily. (Patient not taking: Reported on 09/13/2023) ondansetron orally disintegrating (ZOFRAN ODT) 4 mg disintegrating tablet Take 4 mg by mouth every 8 hours as needed for nausea/vomiting. collagenase (SANTYL) ointment Apply to affected area once daily. APPLY TO AFFECTED AREA (Patient not taking: Reported on 09/13/2023) amitriptyline (ELAVIL) 50 mg tablet Take 1 tablet by mouth daily at bedtime. buPROPion SR (WELLBUTRIN SR) 150 mg 12 hr tablet Take 1 tablet by mouth two times a day. (Patient not taking: Reported on 09/13/2023) tamsulosin (FLOMAX) 0.4 mg Take 2 capsules by mouth once daily. pantoprazole DR (PROTONIX) 40 mg tablet Take 1 tablet by mouth once daily. metoprolol tartrate, short acting, (LOPRESSOR) 25 mg tablet Take 1 tablet by mouth two times a day. lisinopril (ZESTRIL) 10 mg tablet Take 1 t (more content not included)... [facility] 11-23-2023 History of Present illness Narrative Images from the original note were not included. This note was created using Taskmit. Subjective Berta Jaramillo is a 58 year old male. Patient presents with: F/U 6 months SUBJECTIVE: Berta Jaramillo is a 58 year old year old gentleman here today for 6 month follow up appointment for review of medical conditions. Just eating 1 meal daily since after eating feels like throwing up. Carafate helps--taking at night time when eats. Eats late at night--cooks for self. Off antibiotics per Dr. Barrientos. Wonders if contributed to nausea and vomiting issues. Sugars up over 300s now that Levemir was stopped complete.yet. Was taking it just 3 time a week before stopped it. Was skipping doses when sugar dropped to 60s.. \ Tolerating Trulicity. Also using SSI. Noted BP has been getting lower. Mostly drinking coffee--2 a day. A Pepsi at night (regular). Pees maybe twice a day. Has been slowly losing weight. Pain right hip--hurts all night. Hurts to move it to get out of bed then pain resolves. Lateral hip. Finally got motorized wheelchair. Can get around more and get in and out of chair and bed. PAST MEDICAL HISTORY Diagnosis Date Atopic eczema Benign prostatic hyperplasia with urinary hesitancy Chronic anemia Depression Depression Diabetes mellitus (HCC) Essential hypertension Gastroesophageal reflux disease without esophagitis Generalized anxiety disorder Hypercholesterolemia Neuropathy Osteomyelitis of right foot (HCC) Tobacco use Current Outpatient Medications Medication Sig busPIRone (BUSPAR) 5 mg tablet Take 1 tablet by mouth three times a day. sucralfate (CARAFATE) 1 gram tablet Take 1 tablet by mouth four times daily. leflunomide (ARAVA) 10 mg tablet Take 1 tablet by mouth once daily. insulin glargine (BASAGLAR KWIKPEN U-100 INSULIN) 100 unit/mL (3 mL) Inject 16 units once daily E11.9--This was stopped when saw Rossy Martinez (was taking 40 units about 3 days per week metFORMIN ER (GLUCOPHAGE XR) 500 mg 24 hr tablet Take 2 tabs with breakfast, 2 tabs with dinner dulaglutide (TRULICITY) 1.5 mg/0.5 mL pen injector Inject 1.5 mg subcutaneously one time a week. insulin aspart U-100 (NOVOLOG FLEXPEN U-100 INSULIN) 100 unit/mL (3 mL) USE SLIDING SCALE ONLY. Sliding scale 150=0, 151-200-1 units, 201-250=2 units, 251-300=3 units, 301-350=4 units, 351-400=5 units based on pre meal blood sugar only as needed. fluticasone (FLONASE) 50 mcg/actuation nasal spray Use 2 Sprays in each nostril once daily as needed for cold/allergy symptoms. Rinse mouth after use. pregabalin (LYRICA) 225 mg capsule Take 1 capsule by mouth three times a day for 90 days. DUPIXENT SYRINGE 300 mg/2 mL injection Inject 300 mg subcutaneously every 2 weeks. ascorbic acid, vitamin C, (VITAMIN C) 500 mg tablet Take 1 tablet by mouth once daily. aspirin 81 mg cap Take 1 Each by mouth once daily. sertraline (ZOLOFT) 100 mg tablet Take 1.5 tablets by mouth once daily. Insulin Celeste, Disposable, (PEN NEEDLE) 32 gauge x 5/32 Inject 1 Each subcutaneously every 24 hours. Give with each insulin administration. blood sugar diagnostic (BLOOD GLUCOSE TEST) test strip Test blood sugar(s) 4 times daily and PRN. Dx: Type 2 DM - Controlled E11.9 Insulin: Yes Lancets lancets Test blood sugar(s) 4 times daily and prn. Dx: Type 2 DM - Controlled E11.9 Insulin: Yes alcohol swabs Apply 1 Each to affected area four times daily. Blood-Glucose Meter 1 Each four times daily. Cholecalciferol, Vitamin D3, 125 mcg (5,000 unit) cap Take 1 tab daily with food. melatonin 10 mg cap Take 1 capsule by mouth daily at bedtime. Blood-Glucose Meter,Continuous (DEXCOM G7 COTTON WEIGHER) [facility] [place] Dispense one chief innovation officer kit. USE FOR CONTINUOUS GLUCOSE MONITORING. MULTIPLE INSULIN INJECTIONS. E11.9 Blood-Glucose Sensor (DEXCOM G7 SENSOR) kimberly CHANGE SENSOR EVERY 10 days. USE FOR CONTINUOUS GLUCOSE MONITORING. MULTIPLE INSULIN INJECTIONS. E11.9 cyanocobalamin (VITAMIN B-12) 1,000 mcg tab Take 1 tablet by mouth once daily. (Patient not taking: Reported on 09/13/2023) ondansetron orally disintegrating (ZOFRAN ODT) 4 mg disintegrating tablet Take 4 mg by mouth every 8 hours as needed for nausea/vomiting. collagenase (SANTYL) ointment Apply to affected area once daily. APPLY TO AFFECTED AREA (Patient not taking: Reported on 09/13/2023) amitriptyline (ELAVIL) 50 mg tablet Take 1 tablet by mouth daily at bedtime. buPROPion SR (WELLBUTRIN SR) 150 mg 12 hr tablet Take 1 tablet by mouth two times a day. (Patient not taking: Reported on 09/13/2023) tamsulosin (FLOMAX) 0.4 mg Take 2 capsules by mouth once daily. pantoprazole DR (PROTONIX) 40 mg tablet Take 1 tablet by mouth once daily. metoprolol tartrate, short acting, (LOPRESSOR) 25 mg tablet Take 1 tablet by mouth two times a day. lisinopril (ZESTRIL) 10 mg tablet Take 1 tablet by mouth once daily. pen needle, diabetic, safety 31 gauge x 5/16 ndle Use as directed with insulin pen Blood-Glucose Transmitter (DEXCOM G6 TRANSMITTER) kimberly Apply new transmitter every 90 days. Clean transmitter with an alcohol swab with each sensor change. ezetimibe (ZETIA) 10 mg tablet Take 1 tablet by mouth once daily. atorvastatin (LIPITOR) 80 mg tablet Take 1 tablet by mouth once daily. amLODIPine (NORVASC) 10 mg tablet Take 1 tablet by mouth once daily. DULoxetine (CYMBALTA) 60 mg capsule Take 1 capsule by mouth once daily. (Patient not taking: Reported on 09/13/2023) Gauze Bandage 4 X 4 bndg Apply 1 application to affected area once daily. Gauze Bandage (GAUZE ROLL) 2 X 2 -yard bndg Apply 1 application to affected area once daily. meclizine (ANTIVERT) 25 mg tab Take 1 tablet by mouth every 6 hours as needed (dizziness). albuterol HFA (PROVENTIL HFA, VENTOLIN HFA) 90 mcg/actuation inhaler Inhale 2 Puffs as instructed every 4 hours as needed for wheezing/shortness of breath. (Patient not taking: Reported on 11/10/2023) Lancets lancets Test blood sugar(s) 1 times daily and as needed. Dx: Type 2 DM - Controlled E11.9 Insulin: No triamcinolone acetonide (KENALOG) 0.1 % cream Apply 1 application to affected area twice daily. Apply sparingly to area for rash/itching. Once rash on hands improves, go to treating 2 day per week (Patient not taking: Reported on 09/13/2023) No current facility-administered medications for this visit. Review of Systems Objective BP 94/56 (BP Site: Right Arm, BP Position: Sitting, BP Cuff Size: Regular Adult) Pulse 92 Temp (!) 35.9 C (96.7 F) Resp 18 Wt 104.1 kg (229 lb 9.6 oz) SpO2 98% BMI 33.91 kg/m Last 5 Encounter Wt Readings: Date: Wt: 11/23/2023 104.1 kg (229 lb 9.6 oz) 11/10/2023 104.1 kg (229 lb 9.6 oz) 09/13/2023 113.4 kg (250 lb) 06/16/2023 117.9 kg (260 lb) 11/24/2022 108 kg (238 lb) No waist measurement recorded Estimated body mass index is 33.91 kg/m as calculated from the following: Height as of 09/13/23: 175.3 cm (5' 9). Weight as of this encounter: 104.1 kg (229 lb 9.6 oz). Last 5 Encounter BP Readings: Date: BP: 11/23/2023 94/56[Using BP Monitor[ 09/13/2023 122/68 06/16/2023 146/72 06/07/2023 101/60 05/19/2023 108/62 Physical Exam Musculoskeletal: Right hip: Tenderness (greater trochanter) present. Right lower le+ Pitting Edema present. Left lower le+ Pitting Edema present. Legs: Latest Ref Rng 10/22/2022 10/23/2022 05/19/2023 09/13/2023 09/30/2023 10/25/2023 11/10/2023 WBC 3.70 - 11.00 k/uL 7.41 7.91 8.24 RBC 4.20 - 6.00 m/uL 4.26 3.71 (L) 4.19 (L) Hemoglobin 13.0 - 17.0 g/dL 10.7 (L) 8.8 (L) 9.8 (L) Hematocrit 39.0 - 51.0 % 31.9 (L) 26.0 (L) 28.9 (L) MCV 80.0 - 100.0 fL 74.9 (L) 70.1 (L) 69.0 (L) MCH 26.0 - 34.0 pg 25.1 (L) 23.7 (L) 23.4 (L) MCHC 30.5 - 36.0 g/dL 33.5 33.8 33.9 RDW-CV 11.5 - 15.0 % 19.7 (H) 20.1 (H) 20.6 (H) Platelet Count 150 - 400 k/uL 233 285 276 MPV 9.0 - 12.7 fL 10.9 9.7 9.7 Neut% % 52.9 60.7 Abs Neut (ANC) 1.45 - 7.50 k/uL 3.92 4.81 Lymph% % 31.2 28.6 Abs Lymph 1.00 - 4.00 k/uL 2.31 2.26 [place]% % 7.3 6.6 Abs [place] <0.87 k/uL 0.54 0.52 Eosin% % 6.9 3.2 Abs Eosin <0.46 k/uL 0.51 (H) 0.25 Baso% % 1.2 0.6 Abs Baso <0.11 k/uL 0.09 0.05 Immature Gran % % 0.5 0.3 IMMATURE GRANS (ABS) <0.10 k/uL 0.04 <0.03 NRBC /100 WBC 0.0 0.0 Absolute nRBC <0.01 k/uL <0.01 <0.01 <0.01 DTYPE Auto Auto Protein, Total 6.3 - 8.0 g/dL 7.1 7.2 7.1 Albumin 3.9 - 4.9 g/dL 3.7 (L) 3.8 (L) 3.8 (L) Calcium 8.5 - 10.2 mg/dL 8.8 9.0 8.9 Bilirubin, Total 0.2 - 1.3 mg/dL <0.2 (L) <0.2 (L) <0.2 (L) Alkaline Phosphatase 38 - 113 U/L 146 (H) 113 105 AST 14 - 40 U/L 50 (H) 11 (L) 7 (L) ALT 10 - 54 U/L 40 5 (L) <5 (L) Glucose 74 - 99 mg/dL 241 (H) 58 (L) 76 BUN 9 - 24 mg/dL 14 8 (L) 8 (L) Creatinine 0.73 - 1.22 mg/dL 0.97 0.84 0.77 Sodium 136 - 144 mmol/L 137 139 140 Potassium 3.7 - 5.1 mmol/L 5.1 4.4 3.9 Chloride 97 - 105 mmol/L 104 105 105 CO2 22 - 30 mmol/L 26 25 31 (H) Anion Gap 9 - 18 mmol/L 7 (L) 9 4 (L) eGFR >=60 mL/min/1.73m 92 102 104 Bilirubin, Conjug <0.2 mg/dL <0.2 TB Nil <=8.00 IU/mL 0.02 TB1 Ag minus Nil <0.35 IU/mL 0.02 TB2 Ag minus Nil <0.35 IU/mL 0.02 TB Result Negative Mitogen minus Nil >=0.50 IU/mL >9.98 TB Interpretation Infection with M. tuberculosis complex is unlikely. If latent tuberculosis infection is highly suspected, a negative result does not rule out the infection. Specimens from immunocompromised patients and those <5 years of age may show false negative results. In case of a contact investigation, please repeat 8-12 weeks after a known exposure. Creatinine, Ur Random (UCRR) 20.0 - 300.0 mg/dL 43.7 Albumin, Urine Random mg/L <12.0 Albumin/Creat Ratio <30 mg/g <27 Iron 41 - 186 ug/dL 20 (L) TIBC 232 - 386 ug/dL 244 Transferrin Saturation 15.0 - 57.0 % 8.2 (L) Hemoglobin A1C 4.3 - 5.6 % 7.2 (H) 8.2 (H) 6.7 (H) Estimated Average Glucose mg/dL 160 189 146 CCP Antibody IgG Qualitative Negative Negative CCP Antibody, IgG <20 Units <15 Hep B Surface Ab, Qual Positive Negative ! Hep B Surf Ab Quant >=12.00 mIU/mL <8.00 (L) Rheumatoid Factor <16 IU/mL <10 MERY Negative Negative WSR 0 - 15 mm/hr 37 (H) CRP <0.9 mg/dL 0.6 Hep C Antibody IA Negative Negative Hep B Surface Ag Negative Negative Hep B Core Ab, Total Negative Negative Ferritin 30.3 - 565.7 ng/mL 19.9 (L) Hemoglobin A1C (POCT) 4.3 - 5.6 % 6.9 ! Legend: (H) High (L) Low ! Abnormal Hemoglobin A1C (%) Date Value 09/13/2023 6.7 05/19/2023 8.2 10/22/2022 7.2 01/30/2022 7.4 Hemoglobin A1C (POCT) (%) Date Value 11/10/2023 6.9 Assessment and Plan Encounter Diagnosis ICD-10-CM 1. Primary hypertension I10 amLODIPine (NORVASC) 5 mg tablet Running lower. Will lwoer amlodipine. May have another dose of 5 mg if BP goes high. Stay hydrated to avoid drops in BP. 2. 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 Will try pillows for positioning; adjust bed. Don't lay on hip. Consider PT 3. Type 2 diabetes mellitus with hyperglycemia, with long-term current use of insulin (HCC) E11.65 insulin glargine (BASAGLAR KWIKPEN U-100 INSULIN) 100 unit/mL (3 mL) Z79.4 metFORMIN (GLUCOPHAGE) 1,000 mg tablet insulin aspart (NOVOLOG FLEXPEN U-100 INSULIN SUBCUTANEOUS) insulin aspart human (NOVOLOG) 100 unit/ml soln insulin aspart (NOVOLOG FLEXPEN U-100 INSULIN SUBCUTANEOUS) Resume Levkristal. Work with Rossy Martinez to get better controlled. 4. Nausea and vomiting, unspecified vomiting type R11.2 Will work with GI soon (December appt). Continue meds as prescribed--carafate helping; Zofran still helps Above issues addressed with patient. Patient involved in shared decision making for management of medical issues. History and medications reviewed. Epic updated as needed Refills and/or prescriptions taken care of and meds adjusted as indicated after reviewed history, exam and labs. Health Maintenance reviewed. Updated record and/or ordered tests as recorded. Encouraged on efforts at healthy diet and regular exercise and adequate sleep. Work on better nutrition. Limit caffeine. Will see GI December. I spent a total of 49 minutes on the date of the service which included [id number] patient care, completing clinical documentation, obtaining and/or reviewing separately obtained history, performing a medically appropriate examination, counseling and educating the patient/family/caregiver, ordering medications, tests, or procedures, and independently interpreting results (not separately reported). Rachel Chery MD 0 documented in this encounter [facility] 11-23-2023 Note HNO ID: [id number] Author: ?, ?, ? Service: ? Author Type: ? Type: Progress Notes Filed: 11/23/2023 15:34 Note Text: 0 [facility] 11-22-2023 Telephone encounter Note DATE 11/10 11/11 11/12 11/13 11/14 11/15 11/16 11/17 11/18 11/19 11/20 11/21 AM 199 226 213 177 185 262 224 224 203 257 Noon 101 176 178 185 156 182 142 142 234 308 PM 226 184 188 137 172 184 146 146 209 209 Blood sugars above as reported by fax received from [facility]. Report in scanned documents. Please review and advise. Allan Breaux RN November 22, 2023 2:07 PM [facility] 11-22-2023 Miscellaneous Notes DATE 11/10 11/11 11/12 11/13 11/14 11/15 11/16 11/17 11/18 11/19 11/20 11/21 AM 199 226 213 177 185 262 224 224 203 257 Noon 101 176 178 185 156 182 142 142 234 308 PM 226 184 188 137 172 184 146 146 209 209 Blood sugars above as reported by fax received from [facility]. Report in scanned documents. Please review and advise. Allan Breaux RN November 22, 2023 2:07 PM Called [facility] where Pt resides, to request blood sugar log be faxed over for Coral Martinez CNP to review. Allan Breaux RN November 22, 2023 1:21 PM Patient wants to restart his basal, however, would need blood sugars based on his not taking basal insulin in order to gauge starting dose. Please call [place] facility and obtain the patient daily blood sugars Thank you! Patient called, verified name and date of , regarding steven 11/10/[address] Martinez advised him to stop Levemir, per office note LEVEMIR 40 units pt refused for the past 4 months. Patient states he would like to start Levemir back due to blood sugar being 262 or higher since stopping medication. Please review and advise, number verified. Emily Collins LPN November 22, 2023 10:18 AM documented in this encounter [facility] 11-22-2023 Telephone encounter Note Called [facility] where Pt resides, to request blood sugar log be faxed over for Coral Martinez CNP to review. Allan Breaux RN November 22, 2023 1:21 PM [facility] 11-22-2023 Telephone encounter Note Patient wants to restart his basal, however, would need blood sugars based on his not taking basal insulin in order to gauge starting dose. Please call [place] facility and obtain the patient daily blood sugars Thank you! [facility] 11-22-2023 Telephone encounter Note Patient called, verified name and date of , regarding steven 11/10/[address] Martinez advised him to stop Levemir, per office note LEVEMIR 40 units pt refused for the past 4 months. Patient states he would like to start Levemir back due to blood sugar being 262 or higher since stopping medication. Please review and advise, number verified. Emily Collins LPN November 22, 2023 10:18 AM [facility] 11-12-2023 Telephone encounter Note PA was done by Doris Breaux RN. Patient's Trulicity 1.5mg/0.5mL was approved for 05/17/2023-05/16/2024. Approval letter was sent to scanning. Slime De Leon MA [facility] 11-12-2023 Miscellaneous Notes PA was done by Doris Breaux RN. Patient's Trulicity 1.5mg/0.5mL was approved for 05/17/2023-05/16/2024. Approval letter was sent to scanning. Slime De Leon MA documented in this encounter [facility] 11-10-2023 History of Present illness Narrative OFFICE VISIT PROGRESS NOTE CC Berta Jaramillo is a 58 year old who presents today for blood sugar review. HPI Diagnosed with diabetes mellitus type II, ~ 1986 Last endocrine OV 06/16/2023 Some elements copied from my note 06/16/2023 which have been updated where appropriate, and all reflect current medical decision making from date of this visit. HPI 06/16/[address] In wheelchair, severe neuropathy Wound on R toe, seeing wound care, at [facility] Patient is using santyl twice daily and does own wrap Still smoking Down 40 pounds with dietary changes Wearing CGM -started by PCP DEXCOM G6, patient really likes CGM Sts is losing weight Pain and nausea/diarrhea with eating Sts previously was having issues with constipation, this still alternates Vomiting with eating (15-20 minutes after eating) Patient reports Abdominal pain, nausea, vomiting with food intake, alternates constipation, diarrhea, pt reports stick inserter colored stools. Severe anemia. Patient losing weight. Refusing all insulins at [facility] - Patient refusing for past months Sts trulicity has been great for his blood sugar Not using basal at all SS only as needed Is using metformin LEVEMIR 40 units pt refused for the past 4 months METFORMIN 1000 bid HUMALOG 8-4-4 (2 for snack) plus SS#1 (pt refuses, watches his blood sugars and uses SS#1 as needed) SMBG Type of Monitor: Other DEXCOM Frequency of Monitorin times a day BG Values: No information available today Hypoglycemia: yes mostly mornings or overnight Diet: as per above Exercise: none DM REVIEW OF SYSTEMS Last Eye Exam : assisted living schedules Last Podiatry Exam: [facility], has not seen for a while Reports severe neuropathy Cardiorespiratory: negative, denies chest pain, pressure Claudication: no Dyslipidemia: Yes, controlled on medication High Blood Pressure: Yes, controlled on medication CURRENT LABS Latest Ref Rng 11/10/2023 Hemoglobin A1C (POCT) 4.3 - 5.6 % 6.9 ! Legend: ! Abnormal Latest Ref Rng 05/19/2023 09/13/2023 10/25/2023 WBC 3.70 - 11.00 k/uL 8.24 RBC 4.20 - 6.00 m/uL 4.19 (L) Hemoglobin 13.0 - 17.0 g/dL 9.8 (L) Hematocrit 39.0 - 51.0 % 28.9 (L) MCV 80.0 - 100.0 fL 69.0 (L) MCH 26.0 - 34.0 pg 23.4 (L) MCHC 30.5 - 36.0 g/dL 33.9 RDW-CV 11.5 - 15.0 % 20.6 (H) Platelet Count 150 - 400 k/uL 276 MPV 9.0 - 12.7 fL 9.7 Absolute nRBC <0.01 k/uL <0.01 Hemoglobin A1C 4.3 - 5.6 % 8.2 (H) 6.7 (H) Estimated Average Glucose mg/dL 189 146 Legend: (H) High (L) Low Recent Labs 10/22/22 1027 10/23/22 1300 05/19/23 1614 09/13/23 1558 09/30/23 1336 ALT -- 40 -- 5* <5* AST -- 50* -- 11* 7* UCRR -- -- 43.7 -- -- UALBR -- -- <12.0 -- -- UALBCR -- -- <27 -- -- TPROT -- 7.1 -- 7.2 7.1 ALB -- 3.7* -- 3.8* 3.8* CA 8.8 -- -- 9.0 8.9 TBILI -- <0.2* -- <0.2* <0.2* ALKPHOS -- 146* -- 113 105 GLUC 241* -- -- 58* 76 BUN 14 -- -- 8* 8* CREAT 0.97 -- -- 0.84 0.77 NA 137 -- -- 139 140 K 5.1 -- -- 4.4 3.9 CHLOR 104 -- -- 105 105 CO2 26 -- -- 25 31* ANION 7* -- -- 9 4* EGFROTH 92 -- -- 102 104 HBA1C 7.2* -- 8.2* 6.7* -- Recent Labs 01/30/22 1229 10/22/22 1027 05/19/23 1614 09/13/23 1558 TG 129 -- -- -- CHOL 72 -- -- -- HDL 26* -- -- -- VLDL 26 -- -- -- LDL 20 -- -- -- FASTTIME 12 -- -- -- TCHDL 2.77 -- -- -- LDLHDL 0.77 -- -- -- NONHDL 46 -- -- -- HBA1C 7.4* 7.2* 8.2* 6.7* HBA0 166 160 189 146 PAST MEDICAL HISTORY Diagnosis Date Atopic eczema Benign prostatic hyperplasia with urinary hesitancy Chronic anemia Depression Depression Diabetes mellitus (HCC) Essential hypertension Gastroesophageal reflux disease without esophagitis Generalized anxiety disorder Hypercholesterolemia Neuropathy Osteomyelitis of right foot (HCC) Tobacco use PAST SURGICAL HISTORY Procedure Laterality Date KNEE SURGERY HX Right FAMILY HISTORY Problem Relation Age of Onset Diabetes Mother Diabetes Father Hypertension Father Diabetes Paternal Grandmother Diabetes Paternal Grandfather Anesthesia Problems No Family History Social History Tobacco Use Smoking status: Every Day Packs/day: 1 Types: Cigarettes Start date: 1981 Smokeless tobacco: Never Vaping Use Vaping Use: Never used Substance Use Topics Alcohol use: Never Drug use: Never Current Outpatient Medications Medication Sig fluticasone (FLONASE) 50 mcg/actuation nasal spray Use 2 Sprays in each nostril once daily as needed for cold/allergy symptoms. Rinse mouth after use. levoFLOXacin (LEVAQUIN) 500 mg tablet Take 1 tablet by mouth once daily. (Patient not taking: Reported on 09/30/2023) rifAMPin (RIFADIN) 300 mg capsule Take 1 capsule by mouth two times a day. pregabalin (LYRICA) 225 mg capsule Take 1 capsule by mouth three times a day for 90 days. DUPIXENT SYRINGE 300 mg/2 mL injection Inject 300 mg subcutaneously every 2 weeks. insulin glargine (BASAGLAR KWIKPEN U-100 INSULIN) 100 unit/mL (3 mL) Inject 40 units once daily E11.9 busPIRone (BUSPAR) 5 mg tablet Take 1 tablet by mouth three times a day. ascorbic acid, vitamin C, (VITAMIN C) 500 mg tablet Take 1 tablet by mouth once daily. aspirin 81 mg cap Take 1 Each by mouth once daily. sertraline (ZOLOFT) 100 mg tablet Take 1.5 tablets by mouth once daily. Insulin Celeste, Disposable, (PEN NEEDLE) 32 gauge x 5/32 Inject 1 Each subcutaneously every 24 hours. Give with each insulin administration. blood sugar diagnostic (BLOOD GLUCOSE TEST) test strip Test blood sugar(s) 4 times daily and PRN. Dx: Type 2 DM - Controlled E11.9 Insulin: Yes Lancets lancets Test blood sugar(s) 4 times daily and prn. Dx: Type 2 DM - Controlled E11.9 Insulin: Yes alcohol swabs Apply 1 Each to affected area four times daily. Blood-Glucose Meter 1 Each four times daily. Cholecalciferol, Vitamin D3, 125 mcg (5,000 unit) cap Take 1 tab daily with food. melatonin 10 mg cap Take 1 capsule by mouth daily at bedtime. dulaglutide (TRULICITY) 0.75 mg/0.5 mL pen injector Inject 0.75 mg subcutaneously one time a week. Blood-Glucose Meter,Continuous (DEXCOM G7 COTTON WEIGHER) [facility] [place] Dispense one chief innovation officer kit. USE FOR CONTINUOUS GLUCOSE MONITORING. MULTIPLE INSULIN INJECTIONS. E11.9 Blood-Glucose Sensor (DEXCOM G7 SENSOR) kimberly CHANGE SENSOR EVERY 10 days. USE FOR CONTINUOUS GLUCOSE MONITORING. MULTIPLE INSULIN INJECTIONS. E11.9 insulin aspart U-100 (NOVOLOG FLEXPEN U-100 INSULIN) 100 unit/mL (3 mL) Inject subcutaneously: 8 units breakfast, 4 units lunch, 4 units dinner, 2 units with 8 pm snack (if eating) PLUS Sliding scale 150=0, 151-200-1 units, 201-250=2 units, 251-300=3 units, 301-350=4 units, 351-400=5 units based on pre meal blood sugar only as needed. metFORMIN (GLUCOPHAGE) 1,000 mg tablet Take 1 tablet by mouth two times a day with meals. cyanocobalamin (VITAMIN B-12) 1,000 mcg tab Take 1 tablet by mouth once daily. (Patient not taking: Reported on 09/13/2023) ondansetron orally disintegrating (ZOFRAN ODT) 4 mg disintegrating tablet Take 4 mg by mouth every 8 hours as needed for nausea/vomiting. collagenase (SANTYL) ointment Apply to affected area once daily. APPLY TO AFFECTED AREA (Patient not taking: Reported on 09/13/2023) amitriptyline (ELAVIL) 50 mg tablet Take 1 tablet by mouth daily at bedtime. buPROPion SR (WELLBUTRIN SR) 150 mg 12 hr tablet Take 1 tablet by mouth two times a day. (Patient not taking: Reported on 09/13/2023) tamsulosin (FLOMAX) 0.4 mg Take 2 capsules by mouth once daily. sucralfate (CARAFATE) 1 gram tablet Take 1 tablet by mouth four times daily. pantoprazole DR (PROTONIX) 40 mg tablet Take 1 tablet by mouth once daily. metoprolol tartrate, short acting, (LOPRESSOR) 25 mg tablet Take 1 tablet by mouth two times a day. lisinopril (ZESTRIL) 10 mg tablet Take 1 tablet by mouth once daily. leflunomide (ARAVA) 10 mg tablet Take 1 tablet by mouth once daily. pen needle, diabetic, safety 31 gauge x 5/16 ndle Use as directed with insulin pen Blood-Glucose Transmitter ([employer] G6 TRANSMITTER) kimberly Apply new transmitter every 90 days. Clean transmitter with an alcohol swab with each sensor change. ezetimibe (ZETIA) 10 mg tablet Take 1 tablet by mouth once daily. atorvastatin (LIPITOR) 80 mg tablet Take 1 tablet by mouth once daily. amLODIPine (NORVASC) 10 mg tablet Take 1 tablet by mouth once daily. DULoxetine (CYMBALTA) 60 mg capsule Take 1 capsule by mouth once daily. (Patient not taking: Reported on 09/13/2023) Gauze Bandage 4 X 4 bndg Apply 1 application to affected area once daily. Gauze Bandage (GAUZE ROLL) 2 X 2 -yard bndg Apply 1 application to affected area once daily. meclizine (ANTIVERT) 25 mg tab Take 1 tablet by mouth every 6 hours as needed (dizziness). albuterol HFA (PROVENTIL HFA, VENTOLIN HFA) 90 mcg/actuation inhaler Inhale 2 Puffs as instructed every 4 hours as needed for wheezing/shortness of breath. (Patient not taking: Reported on 09/13/2023) Lancets lancets Test blood sugar(s) 1 times daily and as needed. Dx: Type 2 DM - Controlled E11.9 Insulin: No triamcinolone acetonide (KENALOG) 0.1 % cream Apply 1 application to affected area twice daily. Apply sparingly to area for rash/itching. Once rash on hands improves, go to treating 2 day per week (Patient not taking: Reported on 09/13/2023) No current facility-administered medications for this visit. ALLERGIES No Known Allergies REVIEW OF SYSTEMS - POSITIVES IN BOLD GENERAL:No weight loss, malaise or fevers HEENT:Negative for frequent or significant headaches, No changes in hearing or vision, no nose bleeds or other nasal problems NECK:Negative for lumps, goiter, pain and significant neck swelling RESPIRATORY: Negative for cough, hemoptysis, wheezing, COPD, dyspnea or shortness of breath CARDIOVASCULAR: Negative for chest pain, leg swelling, hypertension, CHF or palpitations PHYSICAL EXAMINATION: Pulse 88 Temp (!) 35.6 C (96.1 F) (Temporal Artery) Wt 104.1 kg (229 lb 9.6 oz) SpO2 97% BMI 33.91 kg/m GENERAL: alert and appropriate, in no distress and well-hydrated, well nourished SKIN: no rash noted HEAD: normocephalic, no abnormality or lesion noted EYES: PERRL NECK: full ROM, no cervical LNs noted ACANTHOSIS: none noted EXTREMITIES: normal NEUROLOGIC: no obvious deficit ASSESSMENT/PLAN (E11.9, Z79.4) Controlled type 2 diabetes mellitus without complication, with long-term current use of insulin ([facility]) (primary encounter diagnosis) Comment: Latest Ref Rng 11/10/2023 Hemoglobin A1C (POCT) 4.3 - 5.6 % 6.9 ! Will continue per current with what patient has been using (FOR INSULIN) DC basal at this time SS only as needed TRULICITY increase to 1.5 mg Switch METFORMIN to ER to reduce any possible GI upset CONSULT TO GI for abdominal pain, weight loss, N/V, constipation/diarrhea, severe anemia Recommended diet: Low carbohydrate and Low saturated fat, low simple sugar, high fiber diet Exercise minimally 150 minutes per week, increase as tolerated. Adequate hydration - 1/2 body wgt in oz of water daily, unless fluid restriction applies. I instructed the patient to monitor blood sugars 4 times per day If blood sugars are persistently high or low, to call our office. Patient to continue to follow up with his PCP and with other consultants regarding his other medical problems. Plan: Coral Martinez CNP documented in this encounter [facility] 11-09-2023 Telephone encounter Note AVS and office note with instructions to hold antibiotics and monitor the toe for any drainage or worsening [facility] 11-09-2023 Telephone encounter Note Images from the original note were not included. All Barrientos Samaria, LPN; [facility]8 hours ago (11:23 PM) If patient is not able to tolerate the antibiotic, he can hold the antibiotics. Can send verbal order to facility All Barrientos DPM [facility] 11-09-2023 Miscellaneous Notes AVS and office note with instructions to hold antibiotics and monitor the toe for any drainage or worsening Images from the original note were not included. All Barrientos Samaria, LPN; [facility]8 hours ago (11:23 PM) If patient is not able to tolerate the antibiotic, he can hold the antibiotics. Can send verbal order to facility All Barrientos DPM [facility] nurse, called regarding antibiotic Rifampin. Senait states patient is refusing to take medication. Patient states advised patient to hold medication. Staff has no documentation of this order from last office visit. 10/25/23 STEVEN Barrientos Instructed to: Cleanse wound daily with saline Apply aquacel to the wound If medically cleared for surgery, can proceed with partial toe amputation. Hold antibiotics If antibiotics are to be held please fax order/documentation for staff at : [phone], Attn: Senait If antibiotics are not supposed to be held please call nurse. Emily Collins LPN November 08, 2023 11:20 AM documented in this encounter [facility] 11-08-2023 Telephone encounter Note [facility] nurse, called regarding antibiotic Rifampin. Senait states patient is refusing to take medication. Patient states advised patient to hold medication. Staff has no documentation of this order from last office visit. 10/25/23 STEVEN logan/ Nadine Instructed to: Cleanse wound daily with saline Apply aquacel to the wound If medically cleared for surgery, can proceed with partial toe amputation. Hold antibiotics If antibiotics are to be held please fax order/documentation for staff at : [phone], Attn: Senait If antibiotics are not supposed to be held please call nurse. Emily Collins LPN November 08, 2023 11:20 AM [facility] 10-29-2023 History of Present illness Narrative Came in with complaints of nausea and being unable to keep food down. Patient says it has been worsening over the last month. Patient says he now can only drink 2 cans of pop a day and that it. Patient says his urine is extremely strong and smells. Patient says he did not finish his medication for his feet infections he stopped Wednesday. Patient denies any other symptoms. At this time patient is being referred to the ER for a workup. Patient was okay with this care plan and will go over there. documented in this encounter [facility] 10-29-2023 Telephone encounter Note Contacted patient for further triage of symptoms and pt states he is [facility] way to [facility] now for evaluation. Wendy Hayes RN [facility] 10-29-2023 Miscellaneous Notes Contacted patient for further triage of symptoms and pt states he is on his way to [facility] now for evaluation. Wendy Hayes RN Patient called to report that he forgot to make arrangements for transportation for today's OV with PCP. He reports abdominal pain with nausea that impedes his ability to properly digest food. Patient advised to see if transportation could be arranged for him to be examined at [facility] in [place] today. Patient will call back his transportation services. Patient has been placed on triage nurse call back schedule for further evaluation. documented in this encounter [facility] 10-29-2023 Telephone encounter Note Patient called to report that he forgot to make arrangements for transportation for today's OV with PCP. He reports abdominal pain with nausea that impedes his ability to properly digest food. Patient advised to see if transportation could be arranged for him to be examined at [facility] in [place] today. Patient will call back his transportation services. Patient has been placed on triage nurse call back schedule for further evaluation. [facility] 10-25-2023 History of Present illness Narrative Per Dr. Barrientos, Berta was provided with 2 packages of aquecel, and instructed/educated in its application, wear, and care. All questions were answered, and patient was able to demonstrate competence with the necessary skills to utilize the above equipment. Nga Villalpando LPN FOLLOW UP PODIATRIC OFFICE VISIT Chief Complaint: This 58 year old who presents for follow up:right hallux ulceration. Patient presents to clinic for follow-up right hallux ulceration. Patient is currently applying aquacel to his right great toe ulceration. Was also taking augmentin but states he has been feeling ill, mostly with upset stomach so he discontinued the antibiotic today Still gets occasional dizziness. He was scheduled to see hematology but missed his appointment. PAIN EVALUATION No data found in the last 1 encounters. Hemoglobin A1C Date Value Ref Range Status 09/13/2023 6.7 (H) 4.3 - 5.6 % Final Comment: A heterozygous hemoglobin variant was possibly detected. Most heterozygous hemoglobin variants do not interfere with this assay. However, interpret this hemoglobin A1c result within the patient's clinical context, as the lifespan of red blood cells may be altered. If identification of a previously unidentified hemoglobin variant is clinically indicated, consider ordering the hemoglobin evaluation cascade test. [place] [employer] guidelines indicate that patients with HgbA1c in the range 5.7-6.4% are at increased risk for development of diabetes, and intervention by lifestyle modification may be beneficial. HgbA1c greater or equal to 6.5% is considered diagnostic of diabetes. PCP: Rachel Chery MD PAST MEDICAL HISTORY Diagnosis Date Atopic eczema Benign prostatic hyperplasia with urinary hesitancy Chronic anemia Depression Depression Diabetes mellitus (HCC) Essential hypertension Gastroesophageal reflux disease without esophagitis Generalized anxiety disorder Hypercholesterolemia Neuropathy Osteomyelitis of right foot (HCC) Tobacco use Current Outpatient Medications Medication Sig fluticasone (FLONASE) 50 mcg/actuation nasal spray Use 2 Sprays in each nostril once daily as needed for cold/allergy symptoms. Rinse mouth after use. rifAMPin (RIFADIN) 300 mg capsule Take 1 capsule by mouth two times a day. pregabalin (LYRICA) 225 mg capsule Take 1 capsule by mouth three times a day for 90 days. DUPIXENT SYRINGE 300 mg/2 mL injection Inject 300 mg subcutaneously every 2 weeks. insulin glargine (BASAGLAR KWIKPEN U-100 INSULIN) 100 unit/mL (3 mL) Inject 40 units once daily E11.9 busPIRone (BUSPAR) 5 mg tablet Take 1 tablet by mouth three times a day. ascorbic acid, vitamin C, (VITAMIN C) 500 mg tablet Take 1 tablet by mouth once daily. aspirin 81 mg cap Take 1 Each by mouth once daily. sertraline (ZOLOFT) 100 mg tablet Take 1.5 tablets by mouth once daily. Insulin Celeste, Disposable, (PEN NEEDLE) 32 gauge x 5/32 Inject 1 Each subcutaneously every 24 hours. Give with each insulin administration. blood sugar diagnostic (BLOOD GLUCOSE TEST) test strip Test blood sugar(s) 4 times daily and PRN. Dx: Type 2 DM - Controlled E11.9 Insulin: Yes Lancets lancets Test blood sugar(s) 4 times daily and prn. Dx: Type 2 DM - Controlled E11.9 Insulin: Yes alcohol swabs Apply 1 Each to affected area four times daily. Blood-Glucose Meter 1 Each four times daily. Cholecalciferol, Vitamin D3, 125 mcg (5,000 unit) cap Take 1 tab daily with food. melatonin 10 mg cap Take 1 capsule by mouth daily at bedtime. dulaglutide (TRULICITY) 0.75 mg/0.5 mL pen injector Inject 0.75 mg subcutaneously one time a week. Blood-Glucose Meter,Continuous (DEXCOM G7 COTTON WEIGHER) [facility] Dispense one chief innovation officer kit. USE FOR CONTINUOUS GLUCOSE MONITORING. MULTIPLE INSULIN INJECTIONS. E11.9 Blood-Glucose Sensor (DEXCOM G7 SENSOR) kimberly CHANGE SENSOR EVERY 10 days. USE FOR CONTINUOUS GLUCOSE MONITORING. MULTIPLE INSULIN INJECTIONS. E11.9 insulin aspart U-100 (NOVOLOG FLEXPEN U-100 INSULIN) 100 unit/mL (3 mL) Inject subcutaneously: 8 units breakfast, 4 units lunch, 4 units dinner, 2 units with 8 pm snack (if eating) PLUS Sliding scale 150=0, 151-200-1 units, 201-250=2 units, 251-300=3 units, 301-350=4 units, 351-400=5 units based on pre meal blood sugar only as needed. metFORMIN (GLUCOPHAGE) 1,000 mg tablet Take 1 tablet by mouth two times a day with meals. ondansetron orally disintegrating (ZOFRAN ODT) 4 mg disintegrating tablet Take 4 mg by mouth every 8 hours as needed for nausea/vomiting. amitriptyline (ELAVIL) 50 mg tablet Take 1 tablet by mouth daily at bedtime. tamsulosin (FLOMAX) 0.4 mg Take 2 capsules by mouth once daily. sucralfate (CARAFATE) 1 gram tablet Take 1 tablet by mouth four times daily. pantoprazole DR (PROTONIX) 40 mg tablet Take 1 tablet by mouth once daily. metoprolol tartrate, short acting, (LOPRESSOR) 25 mg tablet Take 1 tablet by mouth two times a day. lisinopril (ZESTRIL) 10 mg tablet Take 1 tablet by mouth once daily. leflunomide (ARAVA) 10 mg tablet Take 1 tablet by mouth once daily. pen needle, diabetic, safety 31 gauge x 09/29 ndle Use as directed with insulin pen Blood-Glucose Transmitter (DEXCOM G6 TRANSMITTER) kimberly Apply new transmitter every 90 days. Clean transmitter with an alcohol swab with each sensor change. ezetimibe (ZETIA) 10 mg tablet Take 1 tablet by mouth once daily. atorvastatin (LIPITOR) 80 mg tablet Take 1 tablet by mouth once daily. amLODIPine (NORVASC) 10 mg tablet Take 1 tablet by mouth once daily. Gauze Bandage 4 X 4 bndg Apply 1 application to affected area once daily. Gauze Bandage (GAUZE ROLL) 2 X 2 -yard bndg Apply 1 application to affected area once daily. meclizine (ANTIVERT) 25 mg tab Take 1 tablet by mouth every 6 hours as needed (dizziness). Lancets lancets Test blood sugar(s) 1 times daily and as needed. Dx: Type 2 DM - Controlled E11.9 Insulin: No levoFLOXacin (LEVAQUIN) 500 mg tablet Take 1 tablet by mouth once daily. (Patient not taking: Reported on 09/30/2023) cyanocobalamin (VITAMIN B-12) 1,000 mcg tab Take 1 tablet by mouth once daily. (Patient not taking: Reported on 09/13/2023) collagenase (SANTYL) ointment Apply to affected area once daily. APPLY TO AFFECTED AREA (Patient not taking: Reported on 09/13/2023) buPROPion SR (WELLBUTRIN SR) 150 mg 12 hr tablet Take 1 tablet by mouth two times a day. (Patient not taking: Reported on 09/13/2023) DULoxetine (CYMBALTA) 60 mg capsule Take 1 capsule by mouth once daily. (Patient not taking: Reported on 09/13/2023) albuterol HFA (PROVENTIL HFA, VENTOLIN HFA) 90 mcg/actuation inhaler Inhale 2 Puffs as instructed every 4 hours as needed for wheezing/shortness of breath. (Patient not taking: Reported on 09/13/2023) triamcinolone acetonide (KENALOG) 0.1 % cream Apply 1 application to affected area twice daily. Apply sparingly to area for rash/itching. Once rash on hands improves, go to treating 2 day per week (Patient not taking: Reported on 09/13/2023) No current facility-administered medications for this visit. ALLERGIES No Known Allergies PAST SURGICAL HISTORY Procedure Laterality Date KNEE SURGERY HX Right Physical Exam: OBJECTIVE: Constitutional: Pt is a well developed 58 year old male who is alert, oriented, cooperative and in no apparent distress. Eyes: Following during examination. No redness or drainage. Respiratory: RR normal and nonlabored. Even breathing. No evidence of distress. Psychology: Patient is engaged during conversation. Normal affect and mood. Does not appear depressed or anxious. NVSI unchanged from previous visit. Dermatological: Ulceration #1 Location: right hallux Measurement: 8 mm x 9 mm Base: granular with periwound hyperkeratosis. No signs of infection clinically. Musculoskeletal/Orthopaedic: Patient has no pain to palpation of right great toe Mild swelling is present to right hallux ASSESSMENT: (E08.621, L97.503) Diabetic ulcer of toe associated with diabetes mellitus due to underlying condition, with necrosis of muscle, unspecified laterality ([facility]) (primary encounter diagnosis) (M86.071) Acute hematogenous osteomyelitis of right foot ([facility]) PLAN: Discussed ulceration of right hallux distal tuft. The ulceration appears stable clinically without purulence or erythema or any clinical signs of infection. He has been on augmentin as prophylaxis while awaiting further work-up medically prior to potential distal syme amputation. Lately, he has noticed increased GI issues so in absence of any clinical signs of infection, will allow patient to hold antibiotic and monitor the toe for any drainage or any worsening. I discussed with patient proceeding with partial hallux amputation. Given his recent anemia and now complaining of persistent gi issues, I feel with the ulceration being stable clinically, we have time to have him evaluated by hematology for clearance prior to surgery. I will check CBC today for evaluation of hgb. Patient still open to amputation but would prefer to see hematology prior. He did miss his appointment last week. Encouraged patient to reschedule. Patient does have an appointment later this week with his primary care provider. I want him to make sure he keeps this appointment as this can provide preliminary evaluation for clearance for possible partial hallux amputation. For the ulceration, I do want patient to continue with aquacel and surgical shoe. Ulceration of right hallux was debrided today with tissue nippers thru subcutaneous tissue. Total debridement was 8 mm x 9 mm. Bleeding was present and controlled with pressure and silver nitrate. Follow-up in 2 weeks All Barrientos DPM documented in this encounter [facility] 10-25-2023 Instructions All Barrientos - 10/25/2023 4:00 PM EDT Cleanse wound daily with saline Apply aquacel to the wound If medically cleared for surgery, can proceed with partial toe amputation. Hold antibiotics documented in this encounter [facility] 10-22-2023 Telephone encounter Note Patient called with complaints of stomach pain and nausea. Had had this symptom in the past but recently was treated for infection with 2 antibiotic and flared symptoms up. He also complained of very dark yellow urine with urgency. Appointment was scheduled 10/29/2023 as he did not want to be seen in [facility]. [facility] 10-22-2023 Miscellaneous Notes Patient called with complaints of stomach pain and nausea. Had had this symptom in the past but recently was treated for infection with 2 antibiotic and flared symptoms up. He also complained of very dark yellow urine with urgency. Appointment was scheduled 10/29/2023 as he did not want to be seen in [facility]. documented in this encounter [facility] 10-19-2023 Telephone encounter Note Called patient to schedule appointment. Patient is scheduled on 10/25/2023. Contacted social work to contact Patient for appointment to scheduling with hematology. Nga Villalpando LPN [facility] Work Phone: 10-19-2023 Miscellaneous Notes Called patient to schedule appointment. Patient is scheduled on 10/25/2023. Contacted social work to contact Patient for appointment to scheduling with hematology. Nga Villalpando LPN Can we check to see how patient is doing and have him make follow-up. He has yet to make follow-up All Barrientos DPM documented in this encounter [facility] 10-19-2023 Telephone encounter Note Can we check to see how patient is doing and have him make follow-up. He has yet to make follow-up All Barrientos DPM [facility] 10-04-2023 Telephone encounter Note PATIENT NOTIFIED OF SAME. He only gets $50 a month and is not able to afford OTC medications at this time. [facility] 10-04-2023 Miscellaneous Notes PATIENT NOTIFIED OF SAME. He only gets $50 a month and is not able to afford OTC medications at this time. Looks like was on Flonase before Would try this again as can be more effective than antihistamines plus looks like OTC meds like Zyrtec might not be covered with insurance. Can if needed--not sure if needs order for OTC meds too even if has to pay out of pocket. The following approved medication requests have been transmitted electronically. Requested Prescriptions Signed Prescriptions Disp Refills fluticasone (FLONASE) 50 mcg/actuation nasal spray 1 Each 5 Sig: Use 2 Sprays in each nostril once daily as needed for cold/allergy symptoms. Rinse mouth after use. Authorizing Provider: RACHEL CHERY MD Glad he got the motorized wheelchair Patient asking if pcp can send Rx for him for his allergies. Reports he's had allergy problems for about 3 years. Currently his eyes are watery, runny nose, and sneezing. Reports benadryl helped in the past, he would take 2 in the morning, and it did not make him sleepy. Patient reports he has never tried claritin or zyrtec. Reports he lives in assisted living ([facility]). He does not drive or walk. Patient wanted to Thank pcp for the wheelchair. He received it yesterday, and is able to get around on his own now. [facility] is what [facility] uses. Please advise patient. documented in this encounter [facility] 10-04-2023 Telephone encounter Note Patient has opted to see hematology first before surgery. Nga Villalpando LPN [facility] 10-04-2023 Miscellaneous Notes Patient has opted to see hematology first before surgery. Nga Villalpando LPN Please call or to add patient on for Wednesday for partial hallux amputation All Barrientos DPM I called patient to inform him he can take augmentin twice daily if he is not tolerating the rifampin and levaquin I called in 10 days bid with one refill Await clearance from hematology prior to amputation All Barrientos DPM documented in this encounter [facility] 10-01-2023 History of Present illness Narrative FOLLOW UP PODIATRIC OFFICE VISIT Chief Complaint: This 58 year old who presents for follow up:ulceration of right hallux Patient is seen today as an add on as this provider noticed he was sitting in lobby and with the fact that he has difficult time arranging transporation, this provider added him on as he was scheduled to be here tomorrow. He is seen for follow-up evaluation of right hallux. He is currently taking augmentin and tolerating well. He is applying aquacel to the right hallux ulceration and is placing betadine to the periphery. We have discussed Wednesday as possible day for surgery for partial hallux amputation. Patient is still interested in amputation. He denies any drainage currently. PAIN EVALUATION No data found in the last 1 encounters. Hemoglobin A1C Date Value Ref Range Status 09/13/2023 6.7 (H) 4.3 - 5.6 % Final Comment: A heterozygous hemoglobin variant was possibly detected. Most heterozygous hemoglobin variants do not interfere with this assay. However, interpret this hemoglobin A1c result within the patient's clinical context, as the lifespan of red blood cells may be altered. If identification of a previously unidentified hemoglobin variant is clinically indicated, consider ordering the hemoglobin evaluation cascade test. [place] [employer] guidelines indicate that patients with HgbA1c in the range 5.7-6.4% are at increased risk for development of diabetes, and intervention by lifestyle modification may be beneficial. HgbA1c greater or equal to 6.5% is considered diagnostic of diabetes. PCP: Rachel Chery MD PAST MEDICAL HISTORY Diagnosis Date Atopic eczema Benign prostatic hyperplasia with urinary hesitancy Chronic anemia Depression Depression Diabetes mellitus (HCC) Essential hypertension Gastroesophageal reflux disease without esophagitis Generalized anxiety disorder Hypercholesterolemia Neuropathy Osteomyelitis of right foot (HCC) Tobacco use Current Outpatient Medications Medication Sig amoxicillin-clavulanate potassium (AUGMENTIN) 875-125 mg per tablet Take 1 tablet by mouth two times a day for 10 days. FOR 10 DAYS. rifAMPin (RIFADIN) 300 mg capsule Take 1 capsule by mouth two times a day. pregabalin (LYRICA) 225 mg capsule Take 1 capsule by mouth three times a day for 90 days. DUPIXENT SYRINGE 300 mg/2 mL injection Inject 300 mg subcutaneously every 2 weeks. insulin glargine (BASAGLAR KWIKPEN U-100 INSULIN) 100 unit/mL (3 mL) Inject 40 units once daily E11.9 busPIRone (BUSPAR) 5 mg tablet Take 1 tablet by mouth three times a day. ascorbic acid, vitamin C, (VITAMIN C) 500 mg tablet Take 1 tablet by mouth once daily. aspirin 81 mg cap Take 1 Each by mouth once daily. sertraline (ZOLOFT) 100 mg tablet Take 1.5 tablets by mouth once daily. Insulin Celeste, Disposable, (PEN NEEDLE) 32 gauge x 5/32 Inject 1 Each subcutaneously every 24 hours. Give with each insulin administration. blood sugar diagnostic (BLOOD GLUCOSE TEST) test strip Test blood sugar(s) 4 times daily and PRN. Dx: Type 2 DM - Controlled E11.9 Insulin: Yes Lancets lancets Test blood sugar(s) 4 times daily and prn. Dx: Type 2 DM - Controlled E11.9 Insulin: Yes alcohol swabs Apply 1 Each to affected area four times daily. Blood-Glucose Meter 1 Each four times daily. Cholecalciferol, Vitamin D3, 125 mcg (5,000 unit) cap Take 1 tab daily with food. melatonin 10 mg cap Take 1 capsule by mouth daily at bedtime. dulaglutide (TRULICITY) 0.75 mg/0.5 mL pen injector Inject 0.75 mg subcutaneously one time a week. Blood-Glucose Meter,Continuous (DEXCOM G7 COTTON WEIGHER) [facility] Dispense one chief innovation officer kit. USE FOR CONTINUOUS GLUCOSE MONITORING. MULTIPLE INSULIN INJECTIONS. E11.9 Blood-Glucose Sensor (DEXCOM G7 SENSOR) kimberly CHANGE SENSOR EVERY 10 days. USE FOR CONTINUOUS GLUCOSE MONITORING. MULTIPLE INSULIN INJECTIONS. E11.9 insulin aspart U-100 (NOVOLOG FLEXPEN U-100 INSULIN) 100 unit/mL (3 mL) Inject subcutaneously: 8 units breakfast, 4 units lunch, 4 units dinner, 2 units with 8 pm snack (if eating) PLUS Sliding scale 150=0, 151-200-1 units, 201-250=2 units, 251-300=3 units, 301-350=4 units, 351-400=5 units based on pre meal blood sugar only as needed. metFORMIN (GLUCOPHAGE) 1,000 mg tablet Take 1 tablet by mouth two times a day with meals. ondansetron orally disintegrating (ZOFRAN ODT) 4 mg disintegrating tablet Take 4 mg by mouth every 8 hours as needed for nausea/vomiting. amitriptyline (ELAVIL) 50 mg tablet Take 1 tablet by mouth daily at bedtime. tamsulosin (FLOMAX) 0.4 mg Take 2 capsules by mouth once daily. sucralfate (CARAFATE) 1 gram tablet Take 1 tablet by mouth four times daily. pantoprazole DR (PROTONIX) 40 mg tablet Take 1 tablet by mouth once daily. metoprolol tartrate, short acting, (LOPRESSOR) 25 mg tablet Take 1 tablet by mouth two times a day. lisinopril (ZESTRIL) 10 mg tablet Take 1 tablet by mouth once daily. leflunomide (ARAVA) 10 mg tablet Take 1 tablet by mouth once daily. pen needle, diabetic, safety 31 gauge x 09/29 ndle Use as directed with insulin pen Blood-Glucose Transmitter ([employer] G6 TRANSMITTER) kimberly Apply new transmitter every 90 days. Clean transmitter with an alcohol swab with each sensor change. ezetimibe (ZETIA) 10 mg tablet Take 1 tablet by mouth once daily. atorvastatin (LIPITOR) 80 mg tablet Take 1 tablet by mouth once daily. amLODIPine (NORVASC) 10 mg tablet Take 1 tablet by mouth once daily. Gauze Bandage 4 X 4 bndg Apply 1 application to affected area once daily. Gauze Bandage (GAUZE ROLL) 2 X 2 -yard bndg Apply 1 application to affected area once daily. meclizine (ANTIVERT) 25 mg tab Take 1 tablet by mouth every 6 hours as needed (dizziness). Lancets lancets Test blood sugar(s) 1 times daily and as needed. Dx: Type 2 DM - Controlled E11.9 Insulin: No fluticasone (FLONASE) 50 mcg/actuation nasal spray Use 2 Sprays in each nostril once daily as needed for cold/allergy symptoms. Rinse mouth after use. levoFLOXacin (LEVAQUIN) 500 mg tablet Take 1 tablet by mouth once daily. (Patient not taking: Reported on 09/30/2023) cyanocobalamin (VITAMIN B-12) 1,000 mcg tab Take 1 tablet by mouth once daily. (Patient not taking: Reported on 09/13/2023) collagenase (SANTYL) ointment Apply to affected area once daily. APPLY TO AFFECTED AREA (Patient not taking: Reported on 09/13/2023) buPROPion SR (WELLBUTRIN SR) 150 mg 12 hr tablet Take 1 tablet by mouth two times a day. (Patient not taking: Reported on 09/13/2023) DULoxetine (CYMBALTA) 60 mg capsule Take 1 capsule by mouth once daily. (Patient not taking: Reported on 09/13/2023) albuterol HFA (PROVENTIL HFA, VENTOLIN HFA) 90 mcg/actuation inhaler Inhale 2 Puffs as instructed every 4 hours as needed for wheezing/shortness of breath. (Patient not taking: Reported on 09/13/2023) triamcinolone acetonide (KENALOG) 0.1 % cream Apply 1 application to affected area twice daily. Apply sparingly to area for rash/itching. Once rash on hands improves, go to treating 2 day per week (Patient not taking: Reported on 09/13/2023) No current facility-administered medications for this visit. ALLERGIES No Known Allergies PAST SURGICAL HISTORY Procedure Laterality Date KNEE SURGERY HX Right Physical Exam: OBJECTIVE: Constitutional: Pt is a well developed 58 year old male who is alert, oriented, cooperative and in no apparent distress. Eyes: Following during examination. No redness or drainage. Respiratory: RR normal and nonlabored. Even breathing. No evidence of distress. Psychology: Patient is engaged during conversation. Normal affect and mood. Does not appear depressed or anxious. NVSI unchanged from previous visit. Dermatological: Ulceration #1 Location: right hallux distal tuft Measurement: 1.0 cm x 0.8 cm x 1 mm Base: granular with periwound hyperkeratosis No local signs of infection . No drainage. No redness. No bone exposed. 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 I discussed the appearance of his right hallux. The wound remains stable. Specifically, there is no drainage or redness or bone exposure. There are no signs of clinical infection to the right hallux. The wound itself is actually measuring smaller compared to one week ago. I am going to have him continue with aquacel to the central wound followed by betadine to the periphery. I debrided the wound of nonviable tissue today with tissue nippers. Total debridement was 1.0 cm x 0.8 cm x 1 mm. I am going to have him continue with augmentin until surgery is performed. Will likely have him take oral antibiotic for one week following surgery. I discussed the plan for surgery. We discussed continued conservative care and limb salvage vs partial hallux amputation. He is interested in amputation as definitive treatment for the infection. It should be noted that this patient was evaluated by preadmission testing on 09/13/23 and at that time, he was not cleared for surgery. Reason for lack of clearance most notably for anemia. Patient was scheduled to be seen by hematology this week but due to provider promply needing to cancel clinic, he was unable to be evaluated. I suspect this anemia is of chronic disease or iron deficiency. We discussed doing amputation as an outpatient vs arranging admission to the hospital for medical management/observation. I do feel with his anemia, admission to the hospital is safest option. I did have long discussion with Dr. Martin regarding this patient's care. After long discussion, I feel it is best to have this patient present to hospital one day prior to surgery so he can be cleared prior to surgery. I feel presentation to the hospital as direct admission this coming Wednesday for clearance would be the safest option for patient. This patient informs me that he has no way of making it to the hospital on Wednesday and furthermore, he does not think he will be able to make it to the hospital for Wednesday. He does acknowledge feeling kind of dizzy and lighteaded at times. In light of this, I do feel it is even more apparent that he be cleared prior to any partial hallux amputation. Given the improvement/reduction in size of wound and the fact that this toe remains stable, I do feel that it is appropriate to hold on amputation until he is adequately cleared. I will be happy to make arrangements to bring him back to the hospital if he continues to pursue amputation but for now, I do feel getting him cleared medically is the safest options. I will have patient continue with augmentin. He will continue with local wound care. I will see patient back next week for evaluation of the wound. This provider is out of the office first week of October. If condition worsens, he is to present to the hospital. Will likely make plans early October for partial hallux amputation. If patient lightheadedness becomes more chronic, present to hospital. All Barrientos DPM Patient satisfied with plan. Patient declines interest for hospitalization at this time in presence of my nursing staff. All Barrientos DPM Patients wound dressed with betadine to periphery, aquacel to center, gauze, and gauze wrap. Patient presents with: Right Foot - Established Patient, Follow Up, Diabetic Foot Ulcer, Pre-Op Visit Patient presents for diabetic foot ulcer. documented in this encounter [facility] 10-01-2023 Telephone encounter Note Looks like was on Flonase before Would try this again as can be more effective than antihistamines plus looks like OTC meds like Zyrtec might not be covered with insurance. Can if needed--not sure if needs order for OTC meds too even if has to pay out of pocket. The following approved medication requests have been transmitted electronically. Requested Prescriptions Signed Prescriptions Disp Refills fluticasone (FLONASE) 50 mcg/actuation nasal spray 1 Each 5 Sig: Use 2 Sprays in each nostril once daily as needed for cold/allergy symptoms. Rinse mouth after use. Authorizing Provider: RACHEL CHERY MD Glad he got the motorized wheelchair [facility] 10-01-2023 Telephone encounter Note ANM asking for SW to assist pt in arranging transportation to hematology appt in [place] on 10/05. SW called [facility] this date and was transferred to Provider Ride. The following arrangements were made: grinding room supervisor at home between 8:15/8:30, arriving at [place] at 9:45. Wheelchair accessible van. grinding room supervisor from [place] at 11:15 am. Confirmation # [id number] Pt to receive confirmation text from Provider Ride. SHAY Damon-S [facility] 10-01-2023 Miscellaneous Notes ANM asking for SW to assist pt in arranging transportation to hematology appt in [place] on 10/05. SW called [facility] this date and was transferred to Provider Ride. The following arrangements were made: grinding room supervisor at home between 8:15/8:30, arriving at [place] at 9:45. Wheelchair accessible van. grinding room supervisor from [place] at 11:15 am. Confirmation # [id number] Pt to receive confirmation text from Provider Ride. ALTAGRACIA Damon documented in this encounter [facility] 09-30-2023 Instructions All Barrientos - 09/30/2023 1:13 PM EDT Cleanse wound with saline daily Apply betadine to periphery of ulceration Apply aquacel to central wound Secure with guaze wrap Continue with augmentin Follow-up with hematology Will see you next week documented in this encounter [facility] 09-29-2023 Telephone encounter Note Please call or to add patient on for Wednesday for partial hallux amputation All Barrientos DPM [facility] 09-28-2023 Telephone encounter Note Patient asking if pcp can send Rx for him for his allergies. Reports he's had allergy problems for about 3 years. Currently his eyes are watery, runny nose, and sneezing. Reports benadryl helped in the past, he would take 2 in the morning, and it did not make him sleepy. Patient reports he has never tried claritin or zyrtec. Reports he lives in assisted living ([facility]). He does not drive or walk. Patient wanted to Thank pcp for the wheelchair. He received it yesterday, and is able to get around on his own now. [facility] is what [facility] uses. Please advise patient. [facility] 09-23-2023 Telephone encounter Note I called patient to inform him he can take augmentin twice daily if he is not tolerating the rifampin and levaquin I called in 10 days bid with one refill Await clearance from hematology prior to amputation All Barrientos DPM [facility] 09-21-2023 Instructions All Barrientos - 09/21/2023 1:52 PM EDT Cleanse wound daily with saline Apply betadine to the periphery when the wound appears moist Apply aquacel to the wound daily Follow-up in 1 week Get clearance by hematology documented in this encounter [facility] 09-21-2023 History of Present illness Narrative FOLLOW UP PODIATRIC OFFICE VISIT Chief Complaint: This 58 year old who presents for follow up:ulceration of right hallux Patient presents to clinic for follow-up right hallux ulceration. He is currently applying aquacel to the wound. He was prescribed levaquin and rifampin and took that for nearly one week but he states his stomach is so upset with the medication that he discontinued. He was tentatively scheduled last week for amputation but due to low hemoglobin, was asked to see hematology. Has yet to schedule. Has an appointment now for next week. PAIN EVALUATION 09/21/2023 1312 Pain Level: 10 Pain Location: Toe Description: Throbbing;Shooting Frequency: Continuous Intervention/Comfort measure: Relaxation;Reposition Hemoglobin A1C Date Value Ref Range Status 09/13/2023 6.7 (H) 4.3 - 5.6 % Final Comment: A heterozygous hemoglobin variant was possibly detected. Most heterozygous hemoglobin variants do not interfere with this assay. However, interpret this hemoglobin A1c result within the patient's clinical context, as the lifespan of red blood cells may be altered. If identification of a previously unidentified hemoglobin variant is clinically indicated, consider ordering the hemoglobin evaluation cascade test. [place] [employer] guidelines indicate that patients with HgbA1c in the range 5.7-6.4% are at increased risk for development of diabetes, and intervention by lifestyle modification may be beneficial. HgbA1c greater or equal to 6.5% is considered diagnostic of diabetes. PCP: Rachel Chery MD PAST MEDICAL HISTORY Diagnosis Date Atopic eczema Benign prostatic hyperplasia with urinary hesitancy Chronic anemia Depression Depression Diabetes mellitus (HCC) Essential hypertension Gastroesophageal reflux disease without esophagitis Generalized anxiety disorder Hypercholesterolemia Neuropathy Osteomyelitis of right foot (HCC) Tobacco use Current Outpatient Medications Medication Sig levoFLOXacin (LEVAQUIN) 500 mg tablet Take 1 tablet by mouth once daily. rifAMPin (RIFADIN) 300 mg capsule Take 1 capsule by mouth two times a day. pregabalin (LYRICA) 225 mg capsule Take 1 capsule by mouth three times a day for 90 days. DUPIXENT SYRINGE 300 mg/2 mL injection Inject 300 mg subcutaneously every 2 weeks. insulin glargine (BASAGLAR KWIKPEN U-100 INSULIN) 100 unit/mL (3 mL) Inject 40 units once daily E11.9 busPIRone (BUSPAR) 5 mg tablet Take 1 tablet by mouth three times a day. ascorbic acid, vitamin C, (VITAMIN C) 500 mg tablet Take 1 tablet by mouth once daily. aspirin 81 mg cap Take 1 Each by mouth once daily. sertraline (ZOLOFT) 100 mg tablet Take 1.5 tablets by mouth once daily. Insulin Celeste, Disposable, (PEN NEEDLE) 32 gauge x 5/32 Inject 1 Each subcutaneously every 24 hours. Give with each insulin administration. blood sugar diagnostic (BLOOD GLUCOSE TEST) test strip Test blood sugar(s) 4 times daily and PRN. Dx: Type 2 DM - Controlled E11.9 Insulin: Yes Lancets lancets Test blood sugar(s) 4 times daily and prn. Dx: Type 2 DM - Controlled E11.9 Insulin: Yes alcohol swabs Apply 1 Each to affected area four times daily. Blood-Glucose Meter 1 Each four times daily. Cholecalciferol, Vitamin D3, 125 mcg (5,000 unit) cap Take 1 tab daily with food. melatonin 10 mg cap Take 1 capsule by mouth daily at bedtime. dulaglutide (TRULICITY) 0.75 mg/0.5 mL pen injector Inject 0.75 mg subcutaneously one time a week. Blood-Glucose Meter,Continuous (DEXCOM G7 COTTON WEIGHER) misc Dispense one chief innovation officer kit. USE FOR CONTINUOUS GLUCOSE MONITORING. MULTIPLE INSULIN INJECTIONS. E11.9 Blood-Glucose Sensor (DEXCOM G7 SENSOR) kimberly CHANGE SENSOR EVERY 10 days. USE FOR CONTINUOUS GLUCOSE MONITORING. MULTIPLE INSULIN INJECTIONS. E11.9 insulin aspart U-100 (NOVOLOG FLEXPEN U-100 INSULIN) 100 unit/mL (3 mL) Inject subcutaneously: 8 units breakfast, 4 units lunch, 4 units dinner, 2 units with 8 pm snack (if eating) PLUS Sliding scale 150=0, 151-200-1 units, 201-250=2 units, 251-300=3 units, 301-350=4 units, 351-400=5 units based on pre meal blood sugar only as needed. metFORMIN (GLUCOPHAGE) 1,000 mg tablet Take 1 tablet by mouth two times a day with meals. cyanocobalamin (VITAMIN B-12) 1,000 mcg tab Take 1 tablet by mouth once daily. (Patient not taking: Reported on 09/13/2023) ondansetron orally disintegrating (ZOFRAN ODT) 4 mg disintegrating tablet Take 4 mg by mouth every 8 hours as needed for nausea/vomiting. collagenase (SANTYL) ointment Apply to affected area once daily. APPLY TO AFFECTED AREA (Patient not taking: Reported on 09/13/2023) amitriptyline (ELAVIL) 50 mg tablet Take 1 tablet by mouth daily at bedtime. buPROPion SR (WELLBUTRIN SR) 150 mg 12 hr tablet Take 1 tablet by mouth two times a day. (Patient not taking: Reported on 09/13/2023) tamsulosin (FLOMAX) 0.4 mg Take 2 capsules by mouth once daily. sucralfate (CARAFATE) 1 gram tablet Take 1 tablet by mouth four times daily. pantoprazole DR (PROTONIX) 40 mg tablet Take 1 tablet by mouth once daily. metoprolol tartrate, short acting, (LOPRESSOR) 25 mg tablet Take 1 tablet by mouth two times a day. lisinopril (ZESTRIL) 10 mg tablet Take 1 tablet by mouth once daily. leflunomide (ARAVA) 10 mg tablet Take 1 tablet by mouth once daily. pen needle, diabetic, safety 31 gauge x 5/16 ndle Use as directed with insulin pen Blood-Glucose Transmitter ([employer] G6 TRANSMITTER) kimberly Apply new transmitter every 90 days. Clean transmitter with an alcohol swab with each sensor change. ezetimibe (ZETIA) 10 mg tablet Take 1 tablet by mouth once daily. atorvastatin (LIPITOR) 80 mg tablet Take 1 tablet by mouth once daily. amLODIPine (NORVASC) 10 mg tablet Take 1 tablet by mouth once daily. DULoxetine (CYMBALTA) 60 mg capsule Take 1 capsule by mouth once daily. (Patient not taking: Reported on 09/13/2023) Gauze Bandage 4 X 4 bndg Apply 1 application to affected area once daily. Gauze Bandage (GAUZE ROLL) 2 X 2 -yard bndg Apply 1 application to affected area once daily. meclizine (ANTIVERT) 25 mg tab Take 1 tablet by mouth every 6 hours as needed (dizziness). albuterol HFA (PROVENTIL HFA, VENTOLIN HFA) 90 mcg/actuation inhaler Inhale 2 Puffs as instructed every 4 hours as needed for wheezing/shortness of breath. (Patient not taking: Reported on 09/13/2023) Lancets lancets Test blood sugar(s) 1 times daily and as needed. Dx: Type 2 DM - Controlled E11.9 Insulin: No triamcinolone acetonide (KENALOG) 0.1 % cream Apply 1 application to affected area twice daily. Apply sparingly to area for rash/itching. Once rash on hands improves, go to treating 2 day per week (Patient not taking: Reported on 09/13/2023) No current facility-administered medications for this visit. ALLERGIES No Known Allergies PAST SURGICAL HISTORY Procedure Laterality Date KNEE SURGERY HX Right Physical Exam: OBJECTIVE: Constitutional: Pt is a well developed 58 year old male who is alert, oriented, cooperative and in no apparent distress. Eyes: Following during examination. No redness or drainage. Respiratory: RR normal and nonlabored. Even breathing. No evidence of distress. Psychology: Patient is engaged during conversation. Normal affect and mood. Does not appear depressed or anxious. NVSI unchanged from previous visit. Dermatological: Ulceration #1 Location: right hallux Measurement: 1.1 cm x 1.2 cm Base: granular No signs of infection Musculoskeletal/Orthopaedic: Patient has no pain to palpation of right hallux Xrays reviewed from last week. Erosive change of distal tuft of right hallux consistent with osteomyelitis. 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 The wound does appear smaller and healthier today. No drainage noted. I debrided the periophery of the wound with tissue nippers of all nonviable tissue. Debridement was ~1.1 cm x 1.2 cm. I will have patient continue with aquacel. If he develops moisture around the wound, a small amount of betadine to help with moisture can be applied. We discussed partial hallux amputation. This is an option provided patient is cleared by hematology. He does have mssa and enterococcus from prior wound culture. Was on rifampin and levaquin but had to discontinue due to upset stomach. He was taking zofran but still had gi issues. I suspect the mssa is the likely culprit. If patient elects amputation, can likely continue with augmentin as precaution until amputation performed. All Barrientos DPM AMB ROOMING INTAKE FLOWSHEET DATA Pain Pain Level: 10 Pain Location: Toe Description: Throbbing, Shooting Frequency: Continuous Intervention/Comfort measure: Relaxation, Reposition Patient presents with: Right Great Toe - Established Patient, Follow Up, Ulcer, Pain Nga Villalpando LPN documented in this encounter [facility] 09-20-2023 Telephone encounter Note See encounter from 09/13 with Zonia Peterson and Dr. Barrientos. We have contacted this patient twice already in attempts to get him scheduled. Going to done this encounter because we are documenting in the other one. Thanks Izabela [facility] 09-20-2023 Miscellaneous Notes See encounter from 09/13 with Zonia Peterson and Dr. Barrientos. We have contacted this patient twice already in attempts to get him scheduled. Going to done this encounter because we are documenting in the other one. Thanks Izabela CBC, no Iron study done. Sheri Lr LPN Pt needs new consult w/hematology for iron def/anemia. Pls call pt and schedule at [facility]. documented in this encounter [facility] 09-20-2023 Telephone encounter Note CBC, no Iron study done. Sheri Lr LPN [facility] 09-20-2023 Telephone encounter Note Pt needs new consult w/hematology for iron def/anemia. Pls call pt and schedule at [facility]. [facility] 09-16-2023 Telephone encounter Note Called Kyra back at this time. She states that they received the medication orders from pharmacy. Wanting to confirm surgery is canceled. Informed her it was. Patient will need to clearance with another provider before we can reschedule him. Kyra confirmed understanding. No other questions at this time. [facility] 09-16-2023 Miscellaneous Notes Called Kyra back at this time. She states that they received the medication orders from pharmacy. Wanting to confirm surgery is canceled. Informed her it was. Patient will need to clearance with another provider before we can reschedule him. Kyra confirmed understanding. No other questions at this time. Nurse Kyra phoned again looking for orders for medication. Fax number [phone]. Cecilia Harkins MA Kyra from [facility] has some questions about the medications received for pt and the upcoming surgery. States she needs information for medications faxed and recent lab results. Pt indicates surgery was canceled so she is looking for confirmation. documented in this encounter [facility] 09-16-2023 Telephone encounter Note Nurse Kyra phoned again looking for orders for medication. Fax number [phone]. Cecilia Harkins MA [facility] 09-16-2023 Telephone encounter Note Kyra from [facility] has some questions about the medications received for pt and the upcoming surgery. States she needs information for medications faxed and recent lab results. Pt indicates surgery was canceled so she is looking for confirmation. [facility] Work Phone: 09-15-2023 Telephone encounter Note CANCELLED PLEASE SEE OTHER PHONE ENCOUNTER. [facility] 09-15-2023 Miscellaneous Notes CANCELLED PLEASE SEE OTHER PHONE ENCOUNTER. Patient presented to office today 09/09/2023 to discuss surgery and sign consent. Patient elected to schedule surgery for Partial vs total toe amputation, right great toe on 09/17/2023 at [facility]. Patient was provided with surgical packet including electronic and paper copy of surgical confirmation letter, hibiclens and instruction on how to use product as well as instruction on where to go at [facility]. All post op were scheduled with in office as well. Patient verbalized understanding of all instructions. Surgery scheduled in [facility]. Nga Villalpando LPN documented in this encounter [facility] 09-14-2023 Telephone encounter Note New patient referral from Dr. Barrientos for worsening anemia, they are delaying his toe amputation until he is seen. Please schedule with Dr. Yumi WHITING See Dr. Barrientos previous notation. Kalyani King LPN [facility] 09-14-2023 Miscellaneous Notes New patient referral from Dr. Barrientos for worsening anemia, they are delaying his toe amputation until he is seen. Please schedule with Dr. Yumi WHITING See Dr. Barrientos previous notation. Kalyani King LPN Addended by: ALL BARRIENTOS DPM on: 09/14/2023 03:43 PM Modules accepted: Orders I had long discussion with patient and I also discussed with hematology. His hemoglobin is now 8.8 and is scheduled for toe amputation. I do not expect much blood loss from this procedure but given the steady decline of hemoglobin over the last 2 years and when talking to patient today, he states he is lightheaded, I would recommend further work-up prior to proceeding with amputation, especially given that the toe is stable. When I discussed with patient the plan to have him seen by hematology, he is grateful for this plan and is agreeable to postponing surgery. Will hold on surgery now. I will have him continue with antibiotics. After he is cleared by hematology, will make plans to place him back on the schedule for amputation. I discussed amputation. I do feel partial hallux amputation is reasonable to start with. If this heals, he will still have part of his great toe for propulsion. I did offered 2nd opinion at the wound center. He is agreeable to partial hallux amputation. Pending further work-up, we may give consideration into keeping him in hospital for a few days but will need to arrange transporation. I informed patient that if he has any issues or change in appearance to the toe, he is to present to hospital. I did reach out to ID. Will place him on levaquin 500 mg daily and rifampin 300 mg bid. The toe is stable. Can hold on amputation while working him up. Patient was seen in [facility] September 13, 2023 as he is scheduled for toe amputation due to osteomyelitis on September 17, 2023. Pre-op blood work revealed worsening anemia with H&H at 8.[address] Barrientos and Dr. Chery, is this acceptable for patient's upcoming procedure or is further workup needed for worsening anemia prior to proceeding? Latest Ref Rng 10/23/2022 09/13/2023 Hemoglobin 13.0 - 17.0 g/dL 10.7 (L) 8.8 (L) Hematocrit 39.0 - 51.0 % 31.9 (L) 26.0 (L) Legend: (L) Low Patient's HbA1C is markedly improved at 6.7 on pre-op blood work as well. That patient did state his blood sugars have been running in the 60s recently; glucose 58 on CMP. Coral, I wanted to make sure you were aware in case any medication adjustments were needed. Latest Ref Rng 05/19/2023 09/13/2023 Hemoglobin A1C 4.3 - 5.6 % 8.2 (H) 6.7 (H) Estimated Average Glucose mg/dL 189 146 Legend: (H) High Please let me know if I can be of further assistance in this patient's care. I greatly appreciate all of your time. Zonia Peterson APRN.M1 [employer] documented in this encounter [facility] 09-14-2023 Note Addended by: ALL GODDARD DPMargo on: 09/14/2023 03:43 PM Modules accepted: Orders [facility] 09-14-2023 Telephone encounter Note I had long discussion with patient and I also discussed with hematology. His hemoglobin is now 8.8 and is scheduled for toe amputation. I do not expect much blood loss from this procedure but given the steady decline of hemoglobin over the last 2 years and when talking to patient today, he states he is lightheaded, I would recommend further work-up prior to proceeding with amputation, especially given that the toe is stable. When I discussed with patient the plan to have him seen by hematology, he is grateful for this plan and is agreeable to postponing surgery. Will hold on surgery now. I will have him continue with antibiotics. After he is cleared by hematology, will make plans to place him back on the schedule for amputation. I discussed amputation. I do feel partial hallux amputation is reasonable to start with. If this heals, he will still have part of his great toe for propulsion. I did offered 2nd opinion at the wound center. He is agreeable to partial hallux amputation. Pending further work-up, we may give consideration into keeping him in hospital for a few days but will need to arrange transporation. I informed patient that if he has any issues or change in appearance to the toe, he is to present to hospital. I did reach out to ID. Will place him on levaquin 500 mg daily and rifampin 300 mg bid. The toe is stable. Can hold on amputation while working him up. [facility] 09-14-2023 Telephone encounter Note Called pharmacy medication d/c. Nga Villalpando LPN [facility] Work Phone: 09-14-2023 Miscellaneous Notes Called pharmacy medication d/c. Nga Villalpando LPN Please call patient pharmacy and discontinue cipro. I may be calling something different in All Barrientos DPM documented in this encounter [facility] 09-14-2023 Telephone encounter Note Please call patient pharmacy and discontinue cipro. I may be calling something different in All Barrientos DPM [facility] 09-14-2023 Telephone encounter Note Patient was seen in [facility] September 13, 2023 as he is scheduled for toe amputation due to osteomyelitis on September 17, 2023. Pre-op blood work revealed worsening anemia with H&H at 8.[address] Barrientos and Dr. Chery, is this acceptable for patient's upcoming procedure or is further workup needed for worsening anemia prior to proceeding? Latest Ref Rng 10/23/2022 09/13/2023 Hemoglobin 13.0 - 17.0 g/dL 10.7 (L) 8.8 (L) Hematocrit 39.0 - 51.0 % 31.9 (L) 26.0 (L) Legend: (L) Low Patient's HbA1C is markedly improved at 6.7 on pre-op blood work as well. That patient did state his blood sugars have been running in the 60s recently; glucose 58 on CMP. Coral, I wanted to make sure you were aware in case any medication adjustments were needed. Latest Ref Rng 05/19/2023 09/13/2023 Hemoglobin A1C 4.3 - 5.6 % 8.2 (H) 6.7 (H) Estimated Average Glucose mg/dL 189 146 Legend: (H) High Please let me know if I can be of further assistance in this patient's care. I greatly appreciate all of your time. Zonia Peterson APRN.DAWIT [facility] 09-13-2023 Instructions Zonia Peterson APRN.CNP - 09/13/2023 3:16 PM EDT PATIENT PREOPERATIVE INSTRUCTIONS All Barrientos DPM has scheduled you for your procedure at this surgery center: [facility]: [phone] -- [address] [address]. Please read below carefully for your personalized instructions. Arrival Time for Surgery: - The Surgery Center or hospital where you are having surgery will call the afternoon before surgery (or Wednesday for Wednesday surgery) with a scheduled arrival time. - If you have not heard by 4 pm, please contact the surgery center above. Please be aware that emergency situations arise, which may delay or change your surgical time. If this happens, we will notify you as soon as possible and regret any inconvenience. Dietary Restrictions: - No solid food after midnight. - You may have 12 ounces of clear liquids (water, clear juices such as apple juice or gatorade, carbonated beverages (sprite/kelly nia), clear tea, black coffee, jello) until 2 hours before scheduled arrival at facility. - Do not drink any alcohol after midnight the night before your surgery. Medications: Unless instructed differently below, stay on all of your medications until your surgery. Pre-Surgery Med Instructions Medication Instructions pregabalin (LYRICA) 225 mg capsule Take the day of surgery with a small sip of water amoxicillin-clavulanate potassium (AUGMENTIN) 875-125 mg per tablet Take the day of surgery with a small sip of water insulin glargine (BASAGLAR KWIKPEN U-100 INSULIN) 100 unit/mL (3 mL) Take 75% of your normal dose the night before surgery; 30 units. busPIRone (BUSPAR) 5 mg tablet Take the day of surgery with a small sip of water sertraline (ZOLOFT) 100 mg tablet Take the day of surgery with a small sip of water melatonin 10 mg cap Take the night before surgery dulaglutide (TRULICITY) 0.75 mg/0.5 mL pen injector Hold 1 week before surgery. Do NOT take your 5/3 dose. insulin aspart U-100 (NOVOLOG FLEXPEN U-100 INSULIN) 100 unit/mL (3 mL) Do not take the day of surgery metFORMIN (GLUCOPHAGE) 1,000 mg tablet Do not take the day of surgery ondansetron orally disintegrating (ZOFRAN ODT) 4 mg disintegrating tablet Take the day of surgery with a small sip of water if needed amitriptyline (ELAVIL) 50 mg tablet Take the night before surgery tamsulosin (FLOMAX) 0.4 mg Take the day of surgery with a small sip of water sucralfate (CARAFATE) 1 gram tablet Take the day of surgery with a small sip of water pantoprazole DR (PROTONIX) 40 mg tablet Take the day of surgery with a small sip of water metoprolol tartrate, short acting, (LOPRESSOR) 25 mg tablet Take the day of surgery with a small sip of water lisinopril (ZESTRIL) 10 mg tablet Hold the morning of and evening before surgery. leflunomide (ARAVA) 10 mg tablet Take the day of surgery with a small sip of water ezetimibe (ZETIA) 10 mg tablet Take the day of surgery with a small sip of water atorvastatin (LIPITOR) 80 mg tablet Take the day of surgery with a small sip of water amLODIPine (NORVASC) 10 mg tablet Take the day of surgery with a small sip of water meclizine (ANTIVERT) 25 mg tab Do not take the day of surgery If you take any medications for erectile dysfunction-Cialis (Tadalafil), Levitra, Staxyn (Vardenafil) Viagra (Sildenenafil please do not take these for 48 hours before surgery. If you start any new medications after today's visit, please contact the surgeon's office. Blood Thinning Medications: - Stop NSAIDS (Ibuprofen, Advil, Aleve, Motrin, Celebrex, Mobic, etc.) 7 days before surgery, as directed by your surgeon. - Stop Aspirin 7 days before surgery, as directed by your surgeon. - Stop Vitamin E, ALL multi-vitamins, herbals and dietary supplements 14 days before surgery. - You may take Tylenol (Acetaminophen) or any of your pain medications that do not contain aspirin or NSAIDS as needed. Important Reminders: - Candy, mints, and tobacco products are NOT permitted the morning of surgery. - Hearing aids, dentures and glasses may be worn the morning of surgery. - NO jewelry, body piercings, makeup, hairpins or contacts are to be worn the day of surgery. If you develop symptoms such as a fever, cold, or flu, or have other changes to your health within TWO DAYS of scheduled surgery or the morning of surgery, please contact the surgery center above. Personal Belongings: -Please have photo ID and insurance cards. -If you do not have a copy of advance directives on file with us, please bring a copy with you on the day of surgery. - Leave ALL valuables and money at home or with family members. For Outpatient Procedures: - YOU MUST HAVE A RESPONSIBLE WOOD CHOPPER TAKE YOU HOME. A AGRICULTURAL REAL ESTATE AGENT OR LINE CONTROLLER CANNOT BE MADE A RESPONSIBLE WOOD CHOPPER. - We recommend that a responsible person stays with you overnight to take care of you. - You cannot stay in a hotel alone after outpatient surgery. You will not be permitted to have your surgery, if you do not have someone to take care of you. If you already have an Advance Directive, please fax a copy to [phone] or email to for it to be added to your chart. If you do not have an Advance Directive, you can find the appropriate form and more information at [email or web address]. We recommend that you complete the Advance Directive form found on the website and bring it with you the day of your surgery. It can be witnessed and scanned into your chart that day. Zonia Peterson APRN.CNP documented in this encounter [facility] 09-13-2023 History and physical note HISTORY AND PHYSICAL EXAMINATION SERVICE DATE: 09/13/2023 SERVICE TIME: 3:12 PM PRIMARY CARE PHYSICIAN: Rachel Chery MD Assessment Patient has the following medical conditions which may affect camila-operative course: Osteomyelitis of right foot (HCC) Assessment: Patient currently on Augmentin. Doing dressing changes at home. Open but denies significant drainage. Scheduled for toe amputation. Neuropathy Assessment: Significant neuropathy present in both feet. Lyrica does help. Reports he is unable to walk and mostly wheel chair bound due to neuropathy. Depression, recurrent (HCC) Assessment: Currently stable on Rx. Following with PCP. Tobacco use Assessment: Current smoker, since 19 yo. Average 1ppd. Chronic smoker's cough, allergies. Rheumatoid arthritis, involving unspecified site, unspecified whether rheumatoid factor present ([facility]) Assessment: Pain mostly in hands and feet. Currently stable on Arava. Vomiting Assessment: Questionable gastroparesis history? Patient reports he was told he slowly digests food. No gastric emptying study available for review. He has Zofran he can take PRN. Denies any recent symptoms. Gastroesophageal reflux disease without esophagitis Assessment: Symptoms currently stable on Rx. Essential hypertension Assessment: Compliant with Rx. Last 3 Encounter BP Readings: Date: BP: 09/13/2023 122/68 06/16/2023 146/72 06/07/2023 101/60 Hypercholesterolemia Assessment: Stable on 2021 lipid panel, compliant with Rx. Following with PCP. Benign prostatic hyperplasia with urinary hesitancy Assessment: Reports hesitancy and slow urination at times. Compliant with Rx. Diabetes mellitus (HCC) Assessment: Last HbA1C - 8.2 (05/2023). Managed with oral medication, Insulin, Trulicity. Checks glucose multiple times per day. Patient reports glucose has been low recently, in the 60s. Re-check HbA1C today. Trulicity - Last dose 09/09. Aware to hold dose DOS (09/16) Glargine - Take 75% night before; 30 units Novolog - Do not take DOS Metformin - Do not take DOS Atopic eczema Assessment: Currently on Dupixent, last dose 09/05. Patient reports very stable on Rx. Obese Assessment: Body mass index is 36.92 kg/m . Hill Activity Status Index: METS: Take care of self; that is eating, dressing, bathing, using the toilet (2.75 METs) Cannot walk a block or two on level ground Cannot do moderate work around the house, such as vacuuming, sweeping floors, or carrying in groceries Cannot climb a flight of stairs or walk up a hill DASI Score: 2.75 Patient denies any chest pain or undue shortness of breath with the above physical activity. Patient is limited most or all of the time (uses scooter, mobility device). Clinical Frailty Scale: 5. Mildly frail STOP-Bang Score: Snores loudly Often feels tired, fatigued, or sleepy during the daytime Has or is being treated for high blood pressure BMI greater than 35 kg/m^2 Patient over 50 years old Male patient Has not been observed to stop breathing or choking/gasping during sleep Does not have a large neck STOP-Bang Score: 6 ANESTHESIA FINDINGS: Intubation History: No history of difficult intubation. No abnormal airway history Significant Anesthesia Considerations: potential difficult IV/vein access Airway History: No history of difficult airway No abnormal airway history I - PHYSICAL EVALUATION AIRWAY Patient intubated: No. Tracheostomy tube not present Mallampati: II. TM distance: >3 FB. Neck ROM: full ROM without neurological symptoms. Mouth opening: adequate. Short neck: yes. Thick neck: no Roper present: yes Lip Bite Test: I Microretrognathia/Micronagthia/Rec essed Chin: No DENTAL Dental findings: poor dentition. II - ANESTHESIA PLAN Beta Jhon Monitoring Plan Post Procedure Analgesic Plan Prepared for Surgery: optimally prepared for surgery, pending [see comment]. Labs DOS glucose Requested EKG from [facility] completed 11/2/23 Addendum September 14, 2023 9:46 AM Labs reviewed. Telephone Encounter sent to Dr. Barrientos, Dr. Chery and Coral Martinez APRN.M1 [employer] regarding worsening anemia and updated HbA1C and if any further optimization is needed prior to patient's procedure CONSULTS: The following consults have been initiated at this time: endocrinology and primary care/internal medicine. Planned Anesthetic: anesthesia choice The Following Tests/Procedures Have Been Initiated: Orders Placed This Encounter CMP Standing Status: Future Number of Occurrences: 1 Standing Expiration Date: 12/13/2023 Complete Blood Count and Differential Standing Status: Future Number of Occurrences: 1 Standing Expiration Date: 12/13/2023 A1C Standing Status: Future Number of Occurrences: 1 Standing Expiration Date: 12/13/2023 DUPIXENT SYRINGE 300 mg/2 mL injection Sig: Inject 300 mg subcutaneously every 2 weeks. REASON FOR VISIT: Berta Jaramillo is a 58 year old male who is scheduled for AMPUTATION TOE(S) at the request of Dr. All Barrientos for consultation. My final recommendation will be communicated back to the requesting physician by way of shared medical record or letter. Subjective The patient has the following: ACTIVE PROBLEM LIST Neuropathy Essential Hypertension Diabetes Mellitus (Hcc) Depression, Recurrent (Hcc) Atopic Eczema Rheumatoid Arthritis, Involving Unspecified Site, Unspecified Whether Rheumatoid Factor Present (Hcc) Decubitus Ulcer of Left Buttock, Stage 3 (Hcc) Osteomyelitis of Right Foot (Hcc) Tobacco Use Vomiting Gastroesophageal Reflux Disease Without Esophagitis Hypercholesterolemia Benign Prostatic Hyperplasia With Urinary Hesitancy Obese COVID-19 Immunization Status Ordered - Covid-19 Vaccine () Ordered on 02/25/2023 10/07/2021 Imm Admin: COVID-19 original vaccine, full dose, monovalent (MODERNA) 08/29/2020 Imm Admin: COVID-19 original vaccine, full dose, monovalent (MODERNA) 08/01/2020 Imm Admin: COVID-19 original vaccine, full dose, monovalent (MODERNA) Only the first 3 history entries have been loaded, but more history exists. CHIEF COMPLAINT: Anesthesia Consult HPI: 58 year old male presents with osteomyelitis of right foot. Patient is currently on an antibiotic for the infection. He has neuropathy in both feet and has lost a lot of feeling. The area is open but denies significant drainage. He is doing dressing changes at home. REVIEW OF SYSTEMS: General: No weight loss, malaise or fevers. Neurological: Positive for: peripheral neuropathy. Negative for: headaches, multiple sclerosis, Parkinson's disease, seizures, TIA and strokes. Respiratory: Positive for: current cough and tobacco use. Negative for: asthma, bronchitis, COPD, bronchodilator used daily for the last 3 months, dyspnea, home oxygen, orthopnea, pneumonia within 6 weeks and obstructive sleep apnea. Cardiovascular: Positive for: hyperlipidemia and hypertension Negative for: arrhythmia, atrial fibrillation, CAD, chest pain, CHF, DVT/PE, recent MD and murmur/valvular heart disease. GI: Positive for: GERD and vomiting Negative for: abdominal pain, dysphagia, diverticulitis, GI bleed <30 days, hepatitis, irritable bowel syndrome, liver disease, nausea and ETOH >2 drinks/day. : Positive for: BPH and hesitancy. Negative for: dysuria, hematuria, nephrolithiasis, nocturia >1 time per night, renal failure and urgency. Endocrine: Positive for: diabetes mellitus. Negative for: hyperthyroidism and hypothyroidism. Hematology: Positive for: bruises/bleeds easily. Negative for: anemia, factor V Leiden, thrombocytopenia, von Willebrand disease and chronic anti-coagulation/platelet meds. Oncology: No history of CA metastasis, chemo within 30 days, or radiotherapy within 90 days. No history of oncological symptoms or problems. Psych: Positive for: depression. Negative for: anxiety. Musculoskeletal: Positive for: rheumatoid arthritis (Hands, feet). Negative for: swelling. Skin: Positive for: lesions (SEE HPI). PAST MEDICAL HISTORY Diagnosis Date Atopic eczema Benign prostatic hyperplasia with urinary hesitancy Chronic anemia Depression Depression Diabetes mellitus (HCC) Essential hypertension Gastroesophageal reflux disease without esophagitis Generalized anxiety disorder Hypercholesterolemia Neuropathy Osteomyelitis of right foot (HCC) Tobacco use PAST SURGICAL HISTORY Procedure Laterality Date KNEE SURGERY HX Right FAMILY HISTORY Problem Relation Age of Onset Diabetes Mother Diabetes Father Hypertension Father Diabetes Paternal Grandmother Diabetes Paternal Grandfather Anesthesia Problems No Family History Social History Tobacco Use Smoking status: Every Day Packs/day: 1 Types: Cigarettes Start date: 1981 Smokeless tobacco: Never Vaping Use Vaping Use: Never used Substance Use Topics Alcohol use: Never Drug use: Never Prior to Admission medications as of 09/13/23 1525 Medication Sig Last Dose Taking pregabalin (LYRICA) 225 mg capsule Take 1 capsule by mouth three times a day for 90 days. Taking Yes amoxicillin-clavulanate potassium (AUGMENTIN) 875-125 mg per tablet Take 1 tablet by mouth two times a day for 10 days. FOR 10 DAYS. Taking Yes insulin glargine (BASAGLAR KWIKPEN U-100 INSULIN) 100 unit/mL (3 mL) Inject 40 units once daily E11.9 Taking Yes busPIRone (BUSPAR) 5 mg tablet Take 1 tablet by mouth three times a day. Taking Yes sertraline (ZOLOFT) 100 mg tablet Take 1.5 tablets by mouth once daily. Taking Yes melatonin 10 mg cap Take 1 capsule by mouth daily at bedtime. Taking Yes dulaglutide (TRULICITY) 0.75 mg/0.5 mL pen injector Inject 0.75 mg subcutaneously one time a week. Taking Yes insulin aspart U-100 (NOVOLOG FLEXPEN U-100 INSULIN) 100 unit/mL (3 mL) Inject subcutaneously: 8 units breakfast, 4 units lunch, 4 units dinner, 2 units with 8 pm snack (if eating) PLUS Sliding scale 150=0, 151-200-1 units, 201-250=2 units, 251-300=3 units, 301-350=4 units, 351-400=5 units based on pre meal blood sugar only as needed. Taking Yes metFORMIN (GLUCOPHAGE) 1,000 mg tablet Take 1 tablet by mouth two times a day with meals. Taking Yes ondansetron orally disintegrating (ZOFRAN ODT) 4 mg disintegrating tablet Take 4 mg by mouth every 8 hours as needed for nausea/vomiting. Taking Yes amitriptyline (ELAVIL) 50 mg tablet Take 1 tablet by mouth daily at bedtime. Taking Yes tamsulosin (FLOMAX) 0.4 mg Take 2 capsules by mouth once daily. Taking Yes sucralfate (CARAFATE) 1 gram tablet Take 1 tablet by mouth four times daily. Taking Yes pantoprazole DR (PROTONIX) 40 mg tablet Take 1 tablet by mouth once daily. Taking Yes metoprolol tartrate, short acting, (LOPRESSOR) 25 mg tablet Take 1 tablet by mouth two times a day. Taking Yes lisinopril (ZESTRIL) 10 mg tablet Take 1 tablet by mouth once daily. Taking Yes leflunomide (ARAVA) 10 mg tablet Take 1 tablet by mouth once daily. Taking Yes ezetimibe (ZETIA) 10 mg tablet Take 1 tablet by mouth once daily. Taking Yes atorvastatin (LIPITOR) 80 mg tablet Take 1 tablet by mouth once daily. Taking Yes amLODIPine (NORVASC) 10 mg tablet Take 1 tablet by mouth once daily. Taking Yes meclizine (ANTIVERT) 25 mg tab Take 1 tablet by mouth every 6 hours as needed (dizziness). Taking Yes DUPIXENT SYRINGE 300 mg/2 mL injection Inject 300 mg subcutaneously every 2 weeks. ascorbic acid, vitamin C, (VITAMIN C) 500 mg tablet Take 1 tablet by mouth once daily. aspirin 81 mg cap Take 1 Each by mouth once daily. Insulin Celeste, Disposable, (PEN NEEDLE) 32 gauge x 5/32 Inject 1 Each subcutaneously every 24 hours. Give with each insulin administration. blood sugar diagnostic (BLOOD GLUCOSE TEST) test strip Test blood sugar(s) 4 times daily and PRN. Dx: Type 2 DM - Controlled E11.9 Insulin: Yes Lancets lancets Test blood sugar(s) 4 times daily and prn. Dx: Type 2 DM - Controlled E11.9 Insulin: Yes alcohol swabs Apply 1 Each to affected area four times daily. Blood-Glucose Meter 1 Each four times daily. Cholecalciferol, Vitamin D3, 125 mcg (5,000 unit) cap Take 1 tab daily with food. Blood-Glucose Meter,Continuous (DEXCOM G7 COTTON WEIGHER) [facility] [place] Dispense one chief innovation officer kit. USE FOR CONTINUOUS GLUCOSE MONITORING. MULTIPLE INSULIN INJECTIONS. E11.9 Blood-Glucose Sensor (DEXCOM G7 SENSOR) kimberly CHANGE SENSOR EVERY 10 days. USE FOR CONTINUOUS GLUCOSE MONITORING. MULTIPLE INSULIN INJECTIONS. E11.9 cyanocobalamin (VITAMIN B-12) 1,000 mcg tab Take 1 tablet by mouth once daily. Patient not taking: Reported on 09/13/2023 Not Taking collagenase (SANTYL) ointment Apply to affected area once daily. APPLY TO AFFECTED AREA Patient not taking: Reported on 09/13/2023 Not Taking buPROPion SR (WELLBUTRIN SR) 150 mg 12 hr tablet Take 1 tablet by mouth two times a day. Patient not taking: Reported on 09/13/2023 Not Taking pen needle, diabetic, safety 31 gauge x 5/16 ndle Use as directed with insulin pen Blood-Glucose Transmitter (DEXCOM G6 TRANSMITTER) kimberly Apply new transmitter every 90 days. Clean transmitter with an alcohol swab with each sensor change. DULoxetine (CYMBALTA) 60 mg capsule Take 1 capsule by mouth once daily. Patient not taking: Reported on 09/13/2023 Not Taking Gauze Bandage 4 X 4 bndg Apply 1 application to affected area once daily. Gauze Bandage (GAUZE ROLL) 2 X 2 -yard bndg Apply 1 application to affected area once daily. albuterol HFA (PROVENTIL HFA, VENTOLIN HFA) 90 mcg/actuation inhaler Inhale 2 Puffs as instructed every 4 hours as needed for wheezing/shortness of breath. Patient not taking: Reported on 09/13/2023 Not Taking Lancets lancets Test blood sugar(s) 1 times daily and as needed. Dx: Type 2 DM - Controlled E11.9 Insulin: No triamcinolone acetonide (KENALOG) 0.1 % cream Apply 1 application to affected area twice daily. Apply sparingly to area for rash/itching. Once rash on hands improves, go to treating 2 day per week Patient not taking: Reported on 09/13/2023 Not Taking No medication comments found. ALLERGIES No Known Allergies Objective PHYSICAL EXAM: General: alert and oriented and obese. Pertinent negatives noted - not distressed. Skin: Ulcer not examined. HEENT: pupils equal round and pupils reactive to light. Pertinent negatives noted - no carotid bruit. Cardiovascular: regular rate and rhythm, normal S1 and S2, no rub, murmurs, or gallop. Respiratory: normal breath sounds, no wheezes or crackles. No chest wall deformity or tenderness. Abdomen: Pertinent negatives noted - no hernia and no mass. Extremities: Positive for edema (BLE, pitting, +2). Neurological: Normal cognition, in wheel chair during exam. PAIN ASSESSMENT: Pain Pain Level: 6 Pain Location: Toe Description: Aching, Sharp Duration Amount of Time: 2 Duration Units: Days Frequency: Intermittent VITALS: BP 122/68 Pulse 93 Temp (Src) 97.5 (Temporal) Resp 14 Ht 5' 9 (1.75m) Wt 250 lb (113.4kg) SpO2 96% BMI 36.90 kg/(m^2). Diagnostic tests reviewed for today's visit: Lab Value Units Date High Low HB 8.8 g/dL 09/13/2023 17.0 13.0 HCT 26.0 % 09/13/2023 51.0 39.0 WBC 7.91 k/uL 09/13/2023 11.00 3.70 PLT 285 k/uL 09/13/2023 400 150 NA 139 mmol/L 09/13/2023 144 136 K 4.4 mmol/L 09/13/2023 5.1 3.7 GLUC 58 mg/dL 09/13/2023 99 74 BUN 8 mg/dL 09/13/2023 24 9 CREAT 0.84 mg/dL 09/13/2023 1.22 0.73 PTSEC No results within date range. INR No results within date range. APTT No results within date range. ALT 5 U/L 09/13/2023 54 10 AST 11 U/L 09/13/2023 40 14 TBILI <0.2 mg/dL 09/13/2023 1.3 0.2 TSH No results within date range. Lab Value Units Date High Low HCGQT No results within date range. UHCG No results within date range. HCG, BODY* No results within date range. Lab Value Units Date High Low ABORHD No results within date range. ABSCREEN No results within date range. Hemoglobin A1C (%) Date Value 09/13/2023 6.7 05/19/2023 8.2 10/22/2022 7.2 01/30/2022 7.4 No results found for this or any previous visit (from the past 8760 hour(s)). No results found for this or any previous visit (from the past 92535 hour(s)). Instructions Given to Patient: Instructions located in the after visit summary. Patient given verbal and written preop instructions and voices comprehension and compliance. SIGNATURE: Zonia Peterson APRN.CNP PATIENT NAME: Berta Jaramillo DATE: September 13, 2023 TIME: 3:12 PM PAGER/CONTACT #: [facility] 09-13-2023 History and physical note HISTORY AND PHYSICAL EXAMINATION SERVICE DATE: 09/13/2023 SERVICE TIME: 3:12 PM PRIMARY CARE PHYSICIAN: Rachel Chery MD Assessment Patient has the following medical conditions which may affect camila-operative course: Osteomyelitis of right foot (HCC) Assessment: Patient currently on Augmentin. Doing dressing changes at home. Open but denies significant drainage. Scheduled for toe amputation. Neuropathy Assessment: Significant neuropathy present in both feet. Lyrica does help. Reports he is unable to walk and mostly wheel chair bound due to neuropathy. Depression, recurrent (HCC) Assessment: Currently stable on Rx. Following with PCP. Tobacco use Assessment: Current smoker, since 19 yo. Average 1ppd. Chronic smoker's cough, allergies. Rheumatoid arthritis, involving unspecified site, unspecified whether rheumatoid factor present ([facility]) Assessment: Pain mostly in hands and feet. Currently stable on Arava. Vomiting Assessment: Questionable gastroparesis history? Patient reports he was told he slowly digests food. No gastric emptying study available for review. He has Zofran he can take PRN. Denies any recent symptoms. Gastroesophageal reflux disease without esophagitis Assessment: Symptoms currently stable on Rx. Essential hypertension Assessment: Compliant with Rx. Last 3 Encounter BP Readings: Date: BP: 09/13/2023 122/68 06/16/2023 146/72 06/07/2023 101/60 Hypercholesterolemia Assessment: Stable on 2021 lipid panel, compliant with Rx. Following with PCP. Benign prostatic hyperplasia with urinary hesitancy Assessment: Reports hesitancy and slow urination at times. Compliant with Rx. Diabetes mellitus (HCC) Assessment: Last HbA1C - 8.2 (05/2023). Managed with oral medication, Insulin, Trulicity. Checks glucose multiple times per day. Patient reports glucose has been low recently, in the 60s. Re-check HbA1C today. Trulicity - Last dose 09/09. Aware to hold dose DOS (5/3) Glargine - Take 75% night before; 30 units Novolog - Do not take DOS Metformin - Do not take DOS Atopic eczema Assessment: Currently on Dupixent, last dose 09/05. Patient reports very stable on Rx. Obese Assessment: Body mass index is 36.92 kg/m . Hill Activity Status Index: METS: Take care of self; that is eating, dressing, bathing, using the toilet (2.75 METs) Cannot walk a block or two on level ground Cannot do moderate work around the house, such as vacuuming, sweeping floors, or carrying in groceries Cannot climb a flight of stairs or walk up a hill DASI Score: 2.75 Patient denies any chest pain or undue shortness of breath with the above physical activity. Patient is limited most or all of the time (uses scooter, mobility device). Clinical Frailty Scale: 5. Mildly frail STOP-Bang Score: Snores loudly Often feels tired, fatigued, or sleepy during the daytime Has or is being treated for high blood pressure BMI greater than 35 kg/m^2 Patient over 50 years old Male patient Has not been observed to stop breathing or choking/gasping during sleep Does not have a large neck STOP-Bang Score: 6 ANESTHESIA FINDINGS: Intubation History: No history of difficult intubation. No abnormal airway history Significant Anesthesia Considerations: potential difficult IV/vein access Airway History: No history of difficult airway No abnormal airway history I - PHYSICAL EVALUATION AIRWAY Patient intubated: No. Tracheostomy tube not present Mallampati: II. TM distance: >3 FB. Neck ROM: full ROM without neurological symptoms. Mouth opening: adequate. Short neck: yes. Thick neck: no Roper present: yes Lip Bite Test: I Microretrognathia/Micronagthia/Rec essed Chin: No DENTAL Dental findings: poor dentition. II - ANESTHESIA PLAN Beta Jhon Monitoring Plan Post Procedure Analgesic Plan Prepared for Surgery: optimally prepared for surgery, pending [see comment]. Labs DOS glucose Requested EKG from [facility] completed 03/18/23 Addendum September 14, 2023 9:46 AM Labs reviewed. Telephone Encounter sent to Dr. Barrientos, Dr. Chery and Coral Martinez APRN.CNP regarding worsening anemia and updated HbA1C and if any further optimization is needed prior to patient's procedure CONSULTS: The following consults have been initiated at this time: endocrinology and primary care/internal medicine. Planned Anesthetic: anesthesia choice The Following Tests/Procedures Have Been Initiated: Orders Placed This Encounter CMP Standing Status: Future Number of Occurrences: 1 Standing Expiration Date: 12/13/2023 Complete Blood Count and Differential Standing Status: Future Number of Occurrences: 1 Standing Expiration Date: 12/13/2023 A1C Standing Status: Future Number of Occurrences: 1 Standing Expiration Date: 12/13/2023 DUPIXENT SYRINGE 300 mg/2 mL injection Sig: Inject 300 mg subcutaneously every 2 weeks. REASON FOR VISIT: Berta Jaramillo is a 58 year old male who is scheduled for AMPUTATION TOE(S) at the request of Dr. All Barrientos for consultation. My final recommendation will be communicated back to the requesting physician by way of shared medical record or letter. Subjective The patient has the following: ACTIVE PROBLEM LIST Neuropathy Essential Hypertension Diabetes Mellitus (Hcc) Depression, Recurrent (Hcc) Atopic Eczema Rheumatoid Arthritis, Involving Unspecified Site, Unspecified Whether Rheumatoid Factor Present (Hcc) Decubitus Ulcer of Left Buttock, Stage 3 (Hcc) Osteomyelitis of Right Foot (Hcc) Tobacco Use Vomiting Gastroesophageal Reflux Disease Without Esophagitis Hypercholesterolemia Benign Prostatic Hyperplasia With Urinary Hesitancy Obese COVID-19 Immunization Status Ordered - Covid-19 Vaccine () Ordered on 02/25/2023 10/07/2021 Imm Admin: COVID-19 original vaccine, full dose, monovalent (MODERNA) 08/29/2020 Imm Admin: COVID-19 original vaccine, full dose, monovalent (MODERNA) 08/01/2020 Imm Admin: COVID-19 original vaccine, full dose, monovalent (MODERNA) Only the first 3 history entries have been loaded, but more history exists. CHIEF COMPLAINT: Anesthesia Consult HPI: 58 year old male presents with osteomyelitis of right foot. Patient is currently on an antibiotic for the infection. He has neuropathy in both feet and has lost a lot of feeling. The area is open but denies significant drainage. He is doing dressing changes at home. REVIEW OF SYSTEMS: General: No weight loss, malaise or fevers. Neurological: Positive for: peripheral neuropathy. Negative for: headaches, multiple sclerosis, Parkinson's disease, seizures, TIA and strokes. Respiratory: Positive for: current cough and tobacco use. Negative for: asthma, bronchitis, COPD, bronchodilator used daily for the last 3 months, dyspnea, home oxygen, orthopnea, pneumonia within 6 weeks and obstructive sleep apnea. Cardiovascular: Positive for: hyperlipidemia and hypertension Negative for: arrhythmia, atrial fibrillation, CAD, chest pain, CHF, DVT/PE, recent MD and murmur/valvular heart disease. GI: Positive for: GERD and vomiting Negative for: abdominal pain, dysphagia, diverticulitis, GI bleed <30 days, hepatitis, irritable bowel syndrome, liver disease, nausea and ETOH >2 drinks/day. : Positive for: BPH and hesitancy. Negative for: dysuria, hematuria, nephrolithiasis, nocturia >1 time per night, renal failure and urgency. Endocrine: Positive for: diabetes mellitus. Negative for: hyperthyroidism and hypothyroidism. Hematology: Positive for: bruises/bleeds easily. Negative for: anemia, factor V Leiden, thrombocytopenia, von Willebrand disease and chronic anti-coagulation/platelet meds. Oncology: No history of CA metastasis, chemo within 30 days, or radiotherapy within 90 days. No history of oncological symptoms or problems. Psych: Positive for: depression. Negative for: anxiety. Musculoskeletal: Positive for: rheumatoid arthritis (Hands, feet). Negative for: swelling. Skin: Positive for: lesions (SEE HPI). PAST MEDICAL HISTORY Diagnosis Date Atopic eczema Benign prostatic hyperplasia with urinary hesitancy Chronic anemia Depression Depression Diabetes mellitus (HCC) Essential hypertension Gastroesophageal reflux disease without esophagitis Generalized anxiety disorder Hypercholesterolemia Neuropathy Osteomyelitis of right foot (HCC) Tobacco use PAST SURGICAL HISTORY Procedure Laterality Date KNEE SURGERY HX Right FAMILY HISTORY Problem Relation Age of Onset Diabetes Mother Diabetes Father Hypertension Father Diabetes Paternal Grandmother Diabetes Paternal Grandfather Anesthesia Problems No Family History Social History Tobacco Use Smoking status: Every Day Packs/day: 1 Types: Cigarettes Start date: 1981 Smokeless tobacco: Never Vaping Use Vaping Use: Never used Substance Use Topics Alcohol use: Never Drug use: Never Prior to Admission medications as of 09/13/23 1525 Medication Sig Last Dose Taking pregabalin (LYRICA) 225 mg capsule Take 1 capsule by mouth three times a day for 90 days. Taking Yes amoxicillin-clavulanate potassium (AUGMENTIN) 875-125 mg per tablet Take 1 tablet by mouth two times a day for 10 days. FOR 10 DAYS. Taking Yes insulin glargine (BASAGLAR KWIKPEN U-100 INSULIN) 100 unit/mL (3 mL) Inject 40 units once daily E11.9 Taking Yes busPIRone (BUSPAR) 5 mg tablet Take 1 tablet by mouth three times a day. Taking Yes sertraline (ZOLOFT) 100 mg tablet Take 1.5 tablets by mouth once daily. Taking Yes melatonin 10 mg cap Take 1 capsule by mouth daily at bedtime. Taking Yes dulaglutide (TRULICITY) 0.75 mg/0.5 mL pen injector Inject 0.75 mg subcutaneously one time a week. Taking Yes insulin aspart U-100 (NOVOLOG FLEXPEN U-100 INSULIN) 100 unit/mL (3 mL) Inject subcutaneously: 8 units breakfast, 4 units lunch, 4 units dinner, 2 units with 8 pm snack (if eating) PLUS Sliding scale 150=0, 151-200-1 units, 201-250=2 units, 251-300=3 units, 301-350=4 units, 351-400=5 units based on pre meal blood sugar only as needed. Taking Yes metFORMIN (GLUCOPHAGE) 1,000 mg tablet Take 1 tablet by mouth two times a day with meals. Taking Yes ondansetron orally disintegrating (ZOFRAN ODT) 4 mg disintegrating tablet Take 4 mg by mouth every 8 hours as needed for nausea/vomiting. Taking Yes amitriptyline (ELAVIL) 50 mg tablet Take 1 tablet by mouth daily at bedtime. Taking Yes tamsulosin (FLOMAX) 0.4 mg Take 2 capsules by mouth once daily. Taking Yes sucralfate (CARAFATE) 1 gram tablet Take 1 tablet by mouth four times daily. Taking Yes pantoprazole DR (PROTONIX) 40 mg tablet Take 1 tablet by mouth once daily. Taking Yes metoprolol tartrate, short acting, (LOPRESSOR) 25 mg tablet Take 1 tablet by mouth two times a day. Taking Yes lisinopril (ZESTRIL) 10 mg tablet Take 1 tablet by mouth once daily. Taking Yes leflunomide (ARAVA) 10 mg tablet Take 1 tablet by mouth once daily. Taking Yes ezetimibe (ZETIA) 10 mg tablet Take 1 tablet by mouth once daily. Taking Yes atorvastatin (LIPITOR) 80 mg tablet Take 1 tablet by mouth once daily. Taking Yes amLODIPine (NORVASC) 10 mg tablet Take 1 tablet by mouth once daily. Taking Yes meclizine (ANTIVERT) 25 mg tab Take 1 tablet by mouth every 6 hours as needed (dizziness). Taking Yes DUPIXENT SYRINGE 300 mg/2 mL injection Inject 300 mg subcutaneously every 2 weeks. ascorbic acid, vitamin C, (VITAMIN C) 500 mg tablet Take 1 tablet by mouth once daily. aspirin 81 mg cap Take 1 Each by mouth once daily. Insulin Celeste, Disposable, (PEN NEEDLE) 32 gauge x 5/32 Inject 1 Each subcutaneously every 24 hours. Give with each insulin administration. blood sugar diagnostic (BLOOD GLUCOSE TEST) test strip Test blood sugar(s) 4 times daily and PRN. Dx: Type 2 DM - Controlled E11.9 Insulin: Yes Lancets lancets Test blood sugar(s) 4 times daily and prn. Dx: Type 2 DM - Controlled E11.9 Insulin: Yes alcohol swabs Apply 1 Each to affected area four times daily. Blood-Glucose Meter 1 Each four times daily. Cholecalciferol, Vitamin D3, 125 mcg (5,000 unit) cap Take 1 tab daily with food. Blood-Glucose Meter,Continuous (DEXCOM G7 COTTON WEIGHER) [facility] [place] Dispense one chief innovation officer kit. USE FOR CONTINUOUS GLUCOSE MONITORING. MULTIPLE INSULIN INJECTIONS. E11.9 Blood-Glucose Sensor (DEXCOM G7 SENSOR) kimberly CHANGE SENSOR EVERY 10 days. USE FOR CONTINUOUS GLUCOSE MONITORING. MULTIPLE INSULIN INJECTIONS. E11.9 cyanocobalamin (VITAMIN B-12) 1,000 mcg tab Take 1 tablet by mouth once daily. Patient not taking: Reported on 09/13/2023 Not Taking collagenase (SANTYL) ointment Apply to affected area once daily. APPLY TO AFFECTED AREA Patient not taking: Reported on 09/13/2023 Not Taking buPROPion SR (WELLBUTRIN SR) 150 mg 12 hr tablet Take 1 tablet by mouth two times a day. Patient not taking: Reported on 09/13/2023 Not Taking pen needle, diabetic, safety 31 gauge x 5/16 ndle Use as directed with insulin pen Blood-Glucose Transmitter (DEXCOM G6 TRANSMITTER) kimberly Apply new transmitter every 90 days. Clean transmitter with an alcohol swab with each sensor change. DULoxetine (CYMBALTA) 60 mg capsule Take 1 capsule by mouth once daily. Patient not taking: Reported on 09/13/2023 Not Taking Gauze Bandage 4 X 4 bndg Apply 1 application to affected area once daily. Gauze Bandage (GAUZE ROLL) 2 X 2 -yard bndg Apply 1 application to affected area once daily. albuterol HFA (PROVENTIL HFA, VENTOLIN HFA) 90 mcg/actuation inhaler Inhale 2 Puffs as instructed every 4 hours as needed for wheezing/shortness of breath. Patient not taking: Reported on 09/13/2023 Not Taking Lancets lancets Test blood sugar(s) 1 times daily and as needed. Dx: Type 2 DM - Controlled E11.9 Insulin: No triamcinolone acetonide (KENALOG) 0.1 % cream Apply 1 application to affected area twice daily. Apply sparingly to area for rash/itching. Once rash on hands improves, go to treating 2 day per week Patient not taking: Reported on 09/13/2023 Not Taking No medication comments found. ALLERGIES No Known Allergies Objective PHYSICAL EXAM: General: alert and oriented and obese. Pertinent negatives noted - not distressed. Skin: Ulcer not examined. HEENT: pupils equal round and pupils reactive to light. Pertinent negatives noted - no carotid bruit. Cardiovascular: regular rate and rhythm, normal S1 and S2, no rub, murmurs, or gallop. Respiratory: normal breath sounds, no wheezes or crackles. No chest wall deformity or tenderness. Abdomen: Pertinent negatives noted - no hernia and no mass. Extremities: Positive for edema (BLE, pitting, +2). Neurological: Normal cognition, in wheel chair during exam. PAIN ASSESSMENT: Pain Pain Level: 6 Pain Location: Toe Description: Aching, Sharp Duration Amount of Time: 2 Duration Units: Days Frequency: Intermittent VITALS: BP 122/68 Pulse 93 Temp (Src) 97.5 (Temporal) Resp 14 Ht 5' 9 (1.75m) Wt 250 lb (113.4kg) SpO2 96% BMI 36.90 kg/(m^2). Diagnostic tests reviewed for today's visit: Lab Value Units Date High Low HB 8.8 g/dL 09/13/2023 17.0 13.0 HCT 26.0 % 09/13/2023 51.0 39.0 WBC 7.91 k/uL 09/13/2023 11.00 3.70 PLT 285 k/uL 09/13/2023 400 150 NA 139 mmol/L 09/13/2023 144 136 K 4.4 mmol/L 09/13/2023 5.1 3.7 GLUC 58 mg/dL 09/13/2023 99 74 BUN 8 mg/dL 09/13/2023 24 9 CREAT 0.84 mg/dL 09/13/2023 1.22 0.73 PTSEC No results within date range. INR No results within date range. APTT No results within date range. ALT 5 U/L 09/13/2023 54 10 AST 11 U/L 09/13/2023 40 14 TBILI <0.2 mg/dL 09/13/2023 1.3 0.2 TSH No results within date range. Lab Value Units Date High Low HCGQT No results within date range. UHCG No results within date range. HCG, BODY* No results within date range. Lab Value Units Date High Low ABORHD No results within date range. ABSCREEN No results within date range. Hemoglobin A1C (%) Date Value 09/13/2023 6.7 05/19/2023 8.2 10/22/2022 7.2 01/30/2022 7.4 No results found for this or any previous visit (from the past 8760 hour(s)). No results found for this or any previous visit (from the past 12567 hour(s)). Instructions Given to Patient: Instructions located in the after visit summary. Patient given verbal and written preop instructions and voices comprehension and compliance. SIGNATURE: Zonia Peterson APRN.CNP PATIENT NAME: Berta Jaramillo DATE: September 13, 2023 TIME: 3:12 PM PAGER/CONTACT #: documented in this encounter [facility] 09-13-2023 Telephone encounter Note Kyra from [facility] did not know she had called wrong Dr for patient refill, now he has one Lyrica left. Needs rx refilled before noon if possible so he will not miss a dose. Pending rx to file. Please advise Patient has been identified by name and date of : nurse phones for refill(s): Requested Prescriptions Pending Prescriptions Disp Refills pregabalin (LYRICA) 225 mg capsule 90 capsule 2 Sig: Take 1 capsule by mouth three times a day for 90 days. Date of last office visit in primary care: 06/07/2023 Date of next office visit in primary care: 11/23/2023 Please advise. Thank you. Fariba Corrigan LPN. [facility] 09-13-2023 Miscellaneous Notes Kyra from [facility] did not know she had called wrong Dr for patient refill, now he has one Lyrica left. Needs rx refilled before noon if possible so he will not miss a dose. Pending rx to file. Please advise Patient has been identified by name and date of : nurse phones for refill(s): Requested Prescriptions Pending Prescriptions Disp Refills pregabalin (LYRICA) 225 mg capsule 90 capsule 2 Sig: Take 1 capsule by mouth three times a day for 90 days. Date of last office visit in primary care: 06/07/2023 Date of next office visit in primary care: 11/23/2023 Please advise. Thank you. Fariba Corrigan LPN. documented in this encounter [facility] 09-13-2023 History of Present illness Narrative FOLLOW UP PODIATRIC OFFICE VISIT Chief Complaint: This 58 year old who presents for follow up:right hallux ulceration. Patient presents to clinic for follow-up right hallux ulceration. Patient has ulceration to distal tuft, right hallux that he is currently applying santyl to. He reports slight drainage from the ulceration and he has noticed that the skin around the ulceration is appearing black. He is here to discuss amputation as he has mri that demonstrates osteomyelitis, distal tuft, right hallux. He states he is nonambulatory on the right foot due to neuropathy. PAIN EVALUATION No data found in the last 1 encounters. Hemoglobin A1C Date Value Ref Range Status 05/19/2023 8.2 (H) 4.3 - 5.6 % Final Comment: A heterozygous hemoglobin variant was possibly detected. Most heterozygous hemoglobin variants do not interfere with this assay. However, interpret this hemoglobin A1c result within the patient's clinical context, as the lifespan of red blood cells may be altered. If identification of a previously unidentified hemoglobin variant is clinically indicated, consider ordering the hemoglobin evaluation cascade test. [employer] [place] [employer] guidelines indicate that patients with HgbA1c in the range 5.7-6.4% are at increased risk for development of diabetes, and intervention by lifestyle modification may be beneficial. HgbA1c greater or equal to 6.5% is considered diagnostic of diabetes. PCP: Rachel Chery MD PAST MEDICAL HISTORY Diagnosis Date Atopic eczema Chronic anemia Depression Depression Diabetes mellitus (HCC) Essential hypertension Generalized anxiety disorder Hypercholesterolemia Neuropathy Current Outpatient Medications Medication Sig amoxicillin-clavulanate potassium (AUGMENTIN) 875-125 mg per tablet Take 1 tablet by mouth two times a day for 10 days. FOR 10 DAYS. insulin glargine (BASAGLAR KWIKPEN U-100 INSULIN) 100 unit/mL (3 mL) Inject 40 units once daily E11.9 busPIRone (BUSPAR) 5 mg tablet Take 1 tablet by mouth three times a day. ascorbic acid, vitamin C, (VITAMIN C) 500 mg tablet Take 1 tablet by mouth once daily. aspirin 81 mg cap Take 1 Each by mouth once daily. sertraline (ZOLOFT) 100 mg tablet Take 1.5 tablets by mouth once daily. Insulin Celeste, Disposable, (PEN NEEDLE) 32 gauge x 5/32 Inject 1 Each subcutaneously every 24 hours. Give with each insulin administration. blood sugar diagnostic (BLOOD GLUCOSE TEST) test strip Test blood sugar(s) 4 times daily and PRN. Dx: Type 2 DM - Controlled E11.9 Insulin: Yes Lancets lancets Test blood sugar(s) 4 times daily and prn. Dx: Type 2 DM - Controlled E11.9 Insulin: Yes alcohol swabs Apply 1 Each to affected area four times daily. Blood-Glucose Meter 1 Each four times daily. Cholecalciferol, Vitamin D3, 125 mcg (5,000 unit) cap Take 1 tab daily with food. melatonin 10 mg cap Take 1 capsule by mouth daily at bedtime. dulaglutide (TRULICITY) 0.75 mg/0.5 mL pen injector Inject 0.75 mg subcutaneously one time a week. Blood-Glucose Meter,Continuous (DEXCOM G7 COTTON WEIGHER) [facility] Dispense one chief innovation officer kit. USE FOR CONTINUOUS GLUCOSE MONITORING. MULTIPLE INSULIN INJECTIONS. E11.9 Blood-Glucose Sensor (DEXCOM G7 SENSOR) kimberly CHANGE SENSOR EVERY 10 days. USE FOR CONTINUOUS GLUCOSE MONITORING. MULTIPLE INSULIN INJECTIONS. E11.9 insulin aspart U-100 (NOVOLOG FLEXPEN U-100 INSULIN) 100 unit/mL (3 mL) Inject subcutaneously: 8 units breakfast, 4 units lunch, 4 units dinner, 2 units with 8 pm snack (if eating) PLUS Sliding scale 150=0, 151-200-1 units, 201-250=2 units, 251-300=3 units, 301-350=4 units, 351-400=5 units based on pre meal blood sugar only as needed. metFORMIN (GLUCOPHAGE) 1,000 mg tablet Take 1 tablet by mouth two times a day with meals. cyanocobalamin (VITAMIN B-12) 1,000 mcg tab Take 1 tablet by mouth once daily. multivit,stress formula/zinc (STRESS WITH ZINC ORAL) Take by mouth. acetaminophen (TYLENOL) 650 mg suppository 650 mg by RECTAL route every 4 hours as needed for pain or fever (specify temp.). doxycycline (VIBRA-TABS) 100 mg tablet ondansetron orally disintegrating (ZOFRAN ODT) 4 mg disintegrating tablet Take 4 mg by mouth every 8 hours as needed for nausea/vomiting. pregabalin (LYRICA) 225 mg capsule Take 200 mg by mouth. collagenase (SANTYL) ointment Apply to affected area once daily. APPLY TO AFFECTED AREA amitriptyline (ELAVIL) 50 mg tablet Take 1 tablet by mouth daily at bedtime. buPROPion SR (WELLBUTRIN SR) 150 mg 12 hr tablet Take 1 tablet by mouth two times a day. tamsulosin (FLOMAX) 0.4 mg Take 2 capsules by mouth once daily. sucralfate (CARAFATE) 1 gram tablet Take 1 tablet by mouth four times daily. pantoprazole DR (PROTONIX) 40 mg tablet Take 1 tablet by mouth once daily. metoprolol tartrate, short acting, (LOPRESSOR) 25 mg tablet Take 1 tablet by mouth two times a day. lisinopril (ZESTRIL) 10 mg tablet Take 1 tablet by mouth once daily. leflunomide (ARAVA) 10 mg tablet Take 1 tablet by mouth once daily. pregabalin (LYRICA) 225 mg capsule Take 1 capsule by mouth three times a day for 90 days. pen needle, diabetic, safety 31 gauge x 16 ndle Use as directed with insulin pen Blood-Glucose Transmitter ([employer] G6 TRANSMITTER) kimberly Apply new transmitter every 90 days. Clean transmitter with an alcohol swab with each sensor change. fluticasone (FLONASE) 50 mcg/actuation nasal spray Use 1 [place] in each nostril as needed. loperamide (IMODIUM) 2 mg cap(s) Take 2 mg by mouth as needed for diarrhea. polyethylene glycol 3350 (MIRALAX) 17 gram/dose powder Take by mouth as needed for constipation. Dissolve dose in 4 - 8 ounces of liquid and take as directed. ezetimibe (ZETIA) 10 mg tablet Take 1 tablet by mouth once daily. atorvastatin (LIPITOR) 80 mg tablet Take 1 tablet by mouth once daily. amLODIPine (NORVASC) 10 mg tablet Take 1 tablet by mouth once daily. DULoxetine (CYMBALTA) 60 mg capsule Take 1 capsule by mouth once daily. Gauze Bandage 4 X 4 bndg Apply 1 application to affected area once daily. Gauze Bandage (GAUZE ROLL) 2 X 2 -yard bndg Apply 1 application to affected area once daily. meclizine (ANTIVERT) 25 mg tab Take 1 tablet by mouth every 6 hours as needed (dizziness). albuterol HFA (PROVENTIL HFA, VENTOLIN HFA) 90 mcg/actuation inhaler Inhale 2 Puffs as instructed every 4 hours as needed for wheezing/shortness of breath. Lancets lancets Test blood sugar(s) 1 times daily and as needed. Dx: Type 2 DM - Controlled E11.9 Insulin: No triamcinolone acetonide (KENALOG) 0.1 % cream Apply 1 application to affected area twice daily. Apply sparingly to area for rash/itching. Once rash on hands improves, go to treating 2 day per week No current facility-administered medications for this visit. ALLERGIES No Known Allergies PAST SURGICAL HISTORY Procedure Laterality Date PAST SURGICAL HISTORY OF Right knee Physical Exam: OBJECTIVE: Constitutional: Pt is a well developed 58 year old male who is alert, oriented, cooperative and in no apparent distress. Eyes: Following during examination. No redness or drainage. Respiratory: RR normal and nonlabored. Even breathing. No evidence of distress. Psychology: Patient is engaged during conversation. Normal affect and mood. Does not appear depressed or anxious. Vascular: DP and PT pulses are palpable to right foot. CFT is less than five seconds. Non-Invasive Vascular Laboratory [facility] Lower Extremity Arterial Physiology Study Bilateral/Complete Date of service/time: 07/07/2023 10:58:10 AM Name: BERTA JARAMILLO Date of : 1965 Age: 58 years Gender: M Clinical Indication Abnormal pulses. TECHNIQUE -------- An arterial physiological examination was performed, including measurement of blood pressures using continuous wave Doppler and recording of plethysmographic with or without Doppler waveforms at the below-mentioned limb segments. FINDINGS -------- RIGHT SIDE AT REST Right Doppler Waveforms Dorsalis pedis: Multiphasic. Post tibial: Multiphasic. Right Pressures Brachial: 136 mmHg Ankle dorsalis pedis: 166 mmHg KASHIF: 1.22 Ankle posterior tibial: 151 mmHg KASHIF: 1.11 Digit: 161 mmHg Right PVR Waveforms Ankle: Normal. Digit: Normal. LEFT SIDE AT REST Left Doppler Waveforms Dorsalis pedis: Multiphasic. Post tibial: Multiphasic. Left Pressures Brachial: 134 mmHg Ankle dorsalis pedis: 149 mmHg KASHIF: 1.10 Ankle posterior tibial: 164 mmHg KASHIF: 1.21 Digit: 140 mmHg Left PVR Waveforms Ankle: Normal. Digit: Normal. IMPRESSION RIGHT SIDE Resting right ankle brachial index: 1.22 Right toe brachial index: 1.18 Normal ankle brachial index at rest in the right leg. Normal toe brachial index at rest in the right leg. Right ankle: Normal at rest. LEFT SIDE Resting left ankle brachial index: 1.21 Left toe brachial index: 1.03 Normal ankle brachial index at rest in the left leg. Normal toe brachial index at rest in the left leg. Left ankle: Normal at rest. Technologist: Ariana Gacria BA, RVT Ordering physician: ALL BARRIENTOS Interpreting physician: LANDON Galeas DO Dermatological: Ulceration #1 Location: right hallux Measurement: ~1.5 cm x ~1.3 cm x 2 mm. Base: granular with periwound hypekreratosis. Mild serous drainage is present No exposed bone. Periwound does appear dark but I feel this is due to increased moisture. 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 This is a chronic ulceration with underlying osteomyelitis of distal phalanx. MRI confirms osteomyelitis. I discussed with patient a stepwide approach to attempt to treat the osteomyelitis. One option is to try and save the toe and send patient to infectious disease and treat with IV antibiotics. An alternative option is to proceed with partial vs total great toe amputation. The mri does suggest osteomyelitis to the distal phalanx. I do feel partial hallux amputation could be an option provided we have enough skin for closure due to the size of the ulceration at present time. This patient has concerns that the skin quality is not the greatest and is not opposed to a total hallux amputation. He wishes to have a surgical cure and feels that amputation can help provide this. I will consent patient to partial vs total toe amputation and based on the appearance of skin next week, will proceed accordingly. I informed patient that a partial hallux amputation if heals would allow patient to continue to propulse off the great toe at [facility]. He states he is nonambulatory on the right foot so this is not as important according to patient. I debrided the ulceration today thru subcutaneous tissue. Total debridement was ~1.5 cm x 1.3 cm x 2 mm. Debridement was performed with tissue nippers. Bleeding was present and controlled with pressure. Will treat with aquacel to ulceration and betadine to periphery. Wound culture was performed. Will place patient on augmentin for the next week All Barrientos DPM AMB ROOMING INTAKE FLOWSHEET DATA Patient presents with: Right Great Toe - Established Patient, Follow Up, Diabetic Foot Ulcer Nga Villalpando LPN documented in this encounter [facility] 09-09-2023 Telephone encounter Note Patient presented to office today 09/09/2023 to discuss surgery and sign consent. Patient elected to schedule surgery for Partial vs total toe amputation, right great toe on 09/17/2023 at [facility]. Patient was provided with surgical packet including electronic and paper copy of surgical confirmation letter, hibiclens and instruction on how to use product as well as instruction on where to go at [facility]. All post op were scheduled with in office as well. Patient verbalized understanding of all instructions. Surgery scheduled in [facility]. Nga Villalpando LPN [facility] 09-09-2023 History of Present illness Narrative Radiology Service Progress Note PATIENT NAME: Berta Jaramillo DATE OF SERVICE: September 09, 2023 TIME: 12:59 PM PATIENT IDENTITY VERIFICATION COMPLETED USING TWO (2) IDENTIFIERS: Name and Date of confirmed by patient verbally. FALL SCREENING: Has the patient had 2 falls in the last year or 1 fall with injury or currently using an Ambulatory Assistive Device (Walker, Cane, Wheelchair, Crutches, etc.)? Yes, Patient High Risk for Falls What interventions were put in place to prevent falls during this visit? Instructed Patient to Call for Help if Needed, Offered Assistance with Transfers/Clothing, and Increased Observations by Caregivers PATIENT GENDER DATA: Male PATIENT RELEVANT IMPLANT DATA REVIEWED: Yes PATIENT PRESENTS WITH AN IMPLANTABLE OR ATTACHED TANK BUILDER AND ERECTOR: No RADIOLOGY DEPARTMENT: General X-ray: Exam(s) Completed: Lower Extremity X-Ray(s): Foot, Right PERIPHERAL IV DATA: Not applicable SIGNED BY: RT Taylor(R) September 09, 2023 12:59 PM documented in this encounter [facility] 09-09-2023 Instructions All Barrientos - 09/09/2023 11:18 AM EDT Cleanse wound daily with saline Apply betadine to periphery Apply aquacel to wound daily Will plan for procedure next week documented in this encounter [facility] 09-07-2023 Telephone encounter Note Please watch for form so can complete. [facility] 09-07-2023 Miscellaneous Notes Please watch for form so can complete. Looks like patient had a F2F with Mike on 06-07-23. Phoned Tanya and asked if they had faxed forms to pcp for the motorized wheelchair. Did not get the person's name I spoke to. She said she talked to patient on Wednesday, and told him they are updating the codes on the new form. States they will fax the forms to Mike, (fax number confirmed) as soon as they get the codes updated. Did he do face to face appointment for motorized wheelchair already? Did we get forms from DME supplier? Patient calling said he has been trying to get a new wheelchair since April and still has not gotten it. He said Tanya told him was approved by his insurance [facility] and [facility]. Patient said now he may have to have his great toe amputated on his pivet foot. He has been borrowing an another persons chair and is going to have to give it back to her. He said the phone number for [employer] is [phone] and he had been talking to Demetra. She told him forms have been faxed to the office for his PCP to compete. Do not see any note in the computer about this at all. Patient also is asking for a rx so he can get a cat. He is alone no family and can not get out of his apartment at all. He said lots of the people where he lives have gotten cat or dog that way. Please advise documented in this encounter [facility] 09-07-2023 Telephone encounter Note Looks like patient had a F2F with Mike on 06-07-23. Phoned Tanya and asked if they had faxed forms to pcp for the motorized wheelchair. Did not get the person's name I spoke to. She said she talked to patient on Wednesday, and told him they are updating the codes on the new form. States they will fax the forms to Mike, (fax number confirmed) as soon as they get the codes updated. [facility] 09-07-2023 Telephone encounter Note Did he do face to face appointment for motorized wheelchair already? Did we get forms from DME supplier? [facility] 09-03-2023 Telephone encounter Note Patient calling said he has been trying to get a new wheelchair since April and still has not gotten it. He said Tanya told him was approved by his insurance [facility] and [facility]. Patient said now he may have to have his great toe amputated on his pivet foot. He has been borrowing an another persons chair and is going to have to give it back to her. He said the phone number for [employer] is [phone] and he had been talking to Demetra. She told him forms have been faxed to the office for his PCP to compete. Do not see any note in the computer about this at all. Patient also is asking for a rx so he can get a cat. He is alone no family and can not get out of his apartment at all. He said lots of the people where he lives have gotten cat or dog that way. Please advise [facility] 08-28-2023 Telephone encounter Note Patient name: Berta Jaramillo* Type of surgery:partial hallux amputation, right foot* CPT code: Diagnosis: osteomyelitis, right hallux Length of surgery:75* min Client Executive needed: none* Anesthesia: mac Special equipment: sagittal saw. Mini c Arm. Pulse lavage [facility] 08-28-2023 Miscellaneous Notes Patient name: Berta Jaramillo* Type of surgery:partial hallux amputation, right foot* CPT code: Diagnosis: osteomyelitis, right hallux Length of surgery:75* min Client Executive needed: none* Anesthesia: mac Special equipment: sagittal saw. Mini c Arm. Pulse lavage documented in this encounter [facility] 08-28-2023 History of Present illness Narrative FOLLOW UP PODIATRIC OFFICE VISIT Chief Complaint: This 58 year old who presents for follow up:right hallux ulceration. Patient presents to clinic for follow-up right hallux ulceration. Patient is currently using santyl to the right hallux ulceration. Was using leatha and felt that the leatha is making the wound worse. Is currently nonambulatory. Has mri that confirms osteomyelitis of right hallux distal phalanx. Is here to discuss options. Was scheduled earlier this week and we had discussed arranging surgery for next week but he missed his appointment. Here to sign consent and arrange surgery. PAIN EVALUATION No data found in the last 1 encounters. Hemoglobin A1C Date Value Ref Range Status 05/19/2023 8.2 (H) 4.3 - 5.6 % Final Comment: A heterozygous hemoglobin variant was possibly detected. Most heterozygous hemoglobin variants do not interfere with this assay. However, interpret this hemoglobin A1c result within the patient's clinical context, as the lifespan of red blood cells may be altered. If identification of a previously unidentified hemoglobin variant is clinically indicated, consider ordering the hemoglobin evaluation cascade test. [employer] [place] [employer] guidelines indicate that patients with HgbA1c in the range 5.7-6.4% are at increased risk for development of diabetes, and intervention by lifestyle modification may be beneficial. HgbA1c greater or equal to 6.5% is considered diagnostic of diabetes. PCP: Rachel Chery MD PAST MEDICAL HISTORY Diagnosis Date Atopic eczema Chronic anemia Depression Depression Diabetes mellitus (HCC) Essential hypertension Generalized anxiety disorder Hypercholesterolemia Neuropathy Current Outpatient Medications Medication Sig amoxicillin-clavulanate potassium (AUGMENTIN) 875-125 mg per tablet Take 1 tablet by mouth two times a day for 10 days. FOR 10 DAYS. insulin glargine (BASAGLAR KWIKPEN U-100 INSULIN) 100 unit/mL (3 mL) Inject 40 units once daily E11.9 busPIRone (BUSPAR) 5 mg tablet Take 1 tablet by mouth three times a day. ascorbic acid, vitamin C, (VITAMIN C) 500 mg tablet Take 1 tablet by mouth once daily. aspirin 81 mg cap Take 1 Each by mouth once daily. sertraline (ZOLOFT) 100 mg tablet Take 1.5 tablets by mouth once daily. Insulin Celeste, Disposable, (PEN NEEDLE) 32 gauge x 5/32 Inject 1 Each subcutaneously every 24 hours. Give with each insulin administration. blood sugar diagnostic (BLOOD GLUCOSE TEST) test strip Test blood sugar(s) 4 times daily and PRN. Dx: Type 2 DM - Controlled E11.9 Insulin: Yes Lancets lancets Test blood sugar(s) 4 times daily and prn. Dx: Type 2 DM - Controlled E11.9 Insulin: Yes alcohol swabs Apply 1 Each to affected area four times daily. Blood-Glucose Meter 1 Each four times daily. Cholecalciferol, Vitamin D3, 125 mcg (5,000 unit) cap Take 1 tab daily with food. melatonin 10 mg cap Take 1 capsule by mouth daily at bedtime. dulaglutide (TRULICITY) 0.75 mg/0.5 mL pen injector Inject 0.75 mg subcutaneously one time a week. Blood-Glucose Meter,Continuous (DEXCOM G7 COTTON WEIGHER) [facility] [place] Dispense one chief innovation officer kit. USE FOR CONTINUOUS GLUCOSE MONITORING. MULTIPLE INSULIN INJECTIONS. E11.9 Blood-Glucose Sensor (DEXCOM G7 SENSOR) kimberly CHANGE SENSOR EVERY 10 days. USE FOR CONTINUOUS GLUCOSE MONITORING. MULTIPLE INSULIN INJECTIONS. E11.9 insulin aspart U-100 (NOVOLOG FLEXPEN U-100 INSULIN) 100 unit/mL (3 mL) Inject subcutaneously: 8 units breakfast, 4 units lunch, 4 units dinner, 2 units with 8 pm snack (if eating) PLUS Sliding scale 150=0, 151-200-1 units, 201-250=2 units, 251-300=3 units, 301-350=4 units, 351-400=5 units based on pre meal blood sugar only as needed. metFORMIN (GLUCOPHAGE) 1,000 mg tablet Take 1 tablet by mouth two times a day with meals. cyanocobalamin (VITAMIN B-12) 1,000 mcg tab Take 1 tablet by mouth once daily. multivit,stress formula/zinc (STRESS WITH ZINC ORAL) Take by mouth. acetaminophen (TYLENOL) 650 mg suppository 650 mg by RECTAL route every 4 hours as needed for pain or fever (specify temp.). doxycycline (VIBRA-TABS) 100 mg tablet ondansetron orally disintegrating (ZOFRAN ODT) 4 mg disintegrating tablet Take 4 mg by mouth every 8 hours as needed for nausea/vomiting. pregabalin (LYRICA) 225 mg capsule Take 200 mg by mouth. collagenase (SANTYL) ointment Apply to affected area once daily. APPLY TO AFFECTED AREA amitriptyline (ELAVIL) 50 mg tablet Take 1 tablet by mouth daily at bedtime. buPROPion SR (WELLBUTRIN SR) 150 mg 12 hr tablet Take 1 tablet by mouth two times a day. tamsulosin (FLOMAX) 0.4 mg Take 2 capsules by mouth once daily. sucralfate (CARAFATE) 1 gram tablet Take 1 tablet by mouth four times daily. pantoprazole DR (PROTONIX) 40 mg tablet Take 1 tablet by mouth once daily. metoprolol tartrate, short acting, (LOPRESSOR) 25 mg tablet Take 1 tablet by mouth two times a day. lisinopril (ZESTRIL) 10 mg tablet Take 1 tablet by mouth once daily. leflunomide (ARAVA) 10 mg tablet Take 1 tablet by mouth once daily. pen needle, diabetic, safety 31 gauge x 516 ndle Use as directed with insulin pen Blood-Glucose Transmitter ([employer] G6 TRANSMITTER) kimberly Apply new transmitter every 90 days. Clean transmitter with an alcohol swab with each sensor change. fluticasone (FLONASE) 50 mcg/actuation nasal spray Use 1 [place] in each nostril as needed. loperamide (IMODIUM) 2 mg cap(s) Take 2 mg by mouth as needed for diarrhea. polyethylene glycol 3350 (MIRALAX) 17 gram/dose powder Take by mouth as needed for constipation. Dissolve dose in 4 - 8 ounces of liquid and take as directed. ezetimibe (ZETIA) 10 mg tablet Take 1 tablet by mouth once daily. atorvastatin (LIPITOR) 80 mg tablet Take 1 tablet by mouth once daily. amLODIPine (NORVASC) 10 mg tablet Take 1 tablet by mouth once daily. DULoxetine (CYMBALTA) 60 mg capsule Take 1 capsule by mouth once daily. Gauze Bandage 4 X 4 bndg Apply 1 application to affected area once daily. Gauze Bandage (GAUZE ROLL) 2 X 2 -yard bndg Apply 1 application to affected area once daily. meclizine (ANTIVERT) 25 mg tab Take 1 tablet by mouth every 6 hours as needed (dizziness). albuterol HFA (PROVENTIL HFA, VENTOLIN HFA) 90 mcg/actuation inhaler Inhale 2 Puffs as instructed every 4 hours as needed for wheezing/shortness of breath. Lancets lancets Test blood sugar(s) 1 times daily and as needed. Dx: Type 2 DM - Controlled E11.9 Insulin: No triamcinolone acetonide (KENALOG) 0.1 % cream Apply 1 application to affected area twice daily. Apply sparingly to area for rash/itching. Once rash on hands improves, go to treating 2 day per week amoxicillin-clavulanate potassium (AUGMENTIN) 875-125 mg per tablet Take 1 tablet by mouth two times a day for 10 days. FOR 10 DAYS. pregabalin (LYRICA) 225 mg capsule Take 1 capsule by mouth three times a day for 90 days. No current facility-administered medications for this visit. ALLERGIES No Known Allergies PAST SURGICAL HISTORY Procedure Laterality Date PAST SURGICAL HISTORY OF Right knee Physical Exam: OBJECTIVE: Constitutional: Pt is a well developed 58 year old male who is alert, oriented, cooperative and in no apparent distress. Eyes: Following during examination. No redness or drainage. Respiratory: RR normal and nonlabored. Even breathing. No evidence of distress. Psychology: Patient is engaged during conversation. Normal affect and mood. Does not appear depressed or anxious. Vascular: DP and PT pulses are palpable to right foot. CFT is brisk. Skin temperature is warm to warm. No erythema is noted. Neuro: protective sensation is absent to right foot consistent with neuropathy. Dermatological: Ulceration #1 Location: right hallux distal tuft Measurement: 1.5 cm x 1.3 cm x 1 mm Base: granular with mild fibrotic slough No exposed bone. No erythema. No signs of clinical infection . 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 Mri does confirm marrow changes of distal phalanx of right hallux . These findings in the presence of long standing diabetic ulceration support diagnosis of osteomyelitis of the distal phalanx. I had long discussion with patient. We discussed both conservative care for the bone infection vs partial toe amputation. We discussed complete hallux amputation The infection only involves the distal phalanx so I think it is reasonable provided he has enough soft-tissue covering to proceed with partial hallux amputaiton. This would afford the opportunity to continue with propulsion for transfer. Patient is open to partial hallux amputation . I discussed risks of the procedure not limited to infection, pain, swelling, bleeding, slow wound healing, need for more proximal amputation vs antibiotics should infection not be surgically cleared. I discussed all r/b/a. He consents to partial hallux amputation, right foot. Will keep patient on antibiotic as precaution. Wound was sharply debrided thru subcutaneous tissue. Total debridement was performed with tissue nippers thru subcutaneous tissue. Total debridement was 1.5 cm x 1.3 cm x 2 mm. Will continue with santyl and surgical shoe. Will need preadmission testing. All Barrientos DPM AMB ROOMING INTAKE FLOWSHEET DATA Patient presents with: Left Foot - Established Patient, Follow Up, Diabetic Foot Care, Numbness Right Foot - Established Patient, Follow Up, Diabetic Foot Care, Diabetic Foot Ulcer, Numbness Nga Villalpando LPN documented in this encounter [facility] 08-24-2023 Telephone encounter Note This nurse called patient to reschedule appointment. Patient states that he slept through his appointment this morning. Appointment scheduled for this WednesdayAugust 26 at 2pm to sign consent. Informed him that due to missing his appointment there will not be enough time to complete everything to have surgery by Wednesday. At this time Dr. Barrientos states that he will keep patient on antibiotic, we will watch the wound and look for another surgery day. Informed patient of signs and symptoms to present to the ER for. Patient agreeable. Will schedule ride for Wednesday's appointment. One concern of patient is getting home after the surgery. Patient requires transportation as he does not drive, nor does he have anyone to take him or pick him up. [facility] 08-24-2023 Miscellaneous Notes This nurse called patient to reschedule appointment. Patient states that he slept through his appointment this morning. Appointment scheduled for this WednesdayAugust 26 at 2pm to sign consent. Informed him that due to missing his appointment there will not be enough time to complete everything to have surgery by Wednesday. At this time Dr. Barrientos states that he will keep patient on antibiotic, we will watch the wound and look for another surgery day. Informed patient of signs and symptoms to present to the ER for. Patient agreeable. Will schedule ride for Wednesday's appointment. One concern of patient is getting home after the surgery. Patient requires transportation as he does not drive, nor does he have anyone to take him or pick him up. Patient called in due to missing his appointment this morning. Patient asking to be rescheduled and a return phone call. Roxy Fernández RN Patient notified of results and provider's instructions. Patient verbalizes understanding. Patient scheduled for Wednesday08/24/2023 at 9. Nga Villalpando LPN Called to inform patient of below message. No answer, left voicemail for patient to call office back. Would like to schedule patient for next August 22 at 1pm. Please call patient to inform him that his mri does confirm osteomyelitsi of the tip of his great toe. I would continue with the antibiotic as prescribed I do think discussion into amputation of the tip of his toe would be next reasonable option. If we can get the wound on his toe to shrink, he may be able to save some of the toe which will allow for easier transfer Will have him continue with current wound care Have him follow-up next week to discuss options All Barrientos DPM documented in this encounter [facility] 08-24-2023 Telephone encounter Note Patient called in due to missing his appointment this morning. Patient asking to be rescheduled and a return phone call. Roxy Fernández RN [facility] 08-20-2023 Telephone encounter Note Patient notified of results and provider's instructions. Patient verbalizes understanding. Patient scheduled for Wednesday08/24/2023 at 9. Nga Villalpando LPN [facility] 08-20-2023 Telephone encounter Note Called to inform patient of below message. No answer, left voicemail for patient to call office back. Would like to schedule patient for next August 22 at 1pm. [facility] 08-20-2023 Telephone encounter Note Please call patient to inform him that his mri does confirm osteomyelitsi of the tip of his great toe. I would continue with the antibiotic as prescribed I do think discussion into amputation of the tip of his toe would be next reasonable option. If we can get the wound on his toe to shrink, he may be able to save some of the toe which will allow for easier transfer Will have him continue with current wound care Have him follow-up next week to discuss options All Barrientos DPM [facility] 08-19-2023 History of Present illness Narrative FOLLOW UP PODIATRIC OFFICE VISIT Chief Complaint: This 58 year old who presents for follow up:right hallux ulceration. Patient presents to clinic for follow-up right hallux ulceration Patient was doing well but recently developed opening of his right hallux. Reports increased drainage and swelling to right hallux. Was applying leatha to the ulceration but found this to not help the wound as much as santyl. Is currently applying santyl Denies any drainage. PAIN EVALUATION 08/19/2023 1033 Pain Level: 5 Pain Location: Toe Description: Aching Duration Units: Weeks Frequency: Intermittent Intervention/Comfort measure: Reposition;Relaxation;Medication Hemoglobin A1C Date Value Ref Range Status 05/19/2023 8.2 (H) 4.3 - 5.6 % Final Comment: A heterozygous hemoglobin variant was possibly detected. Most heterozygous hemoglobin variants do not interfere with this assay. However, interpret this hemoglobin A1c result within the patient's clinical context, as the lifespan of red blood cells may be altered. If identification of a previously unidentified hemoglobin variant is clinically indicated, consider ordering the hemoglobin evaluation cascade test. [employer] [place] [employer] guidelines indicate that patients with HgbA1c in the range 5.7-6.4% are at increased risk for development of diabetes, and intervention by lifestyle modification may be beneficial. HgbA1c greater or equal to 6.5% is considered diagnostic of diabetes. PCP: Rachel Chery MD PAST MEDICAL HISTORY Diagnosis Date Atopic eczema Chronic anemia Depression Depression Diabetes mellitus (HCC) Essential hypertension Generalized anxiety disorder Hypercholesterolemia Neuropathy Current Outpatient Medications Medication Sig amoxicillin-clavulanate potassium (AUGMENTIN) 875-125 mg per tablet Take 1 tablet by mouth two times a day for 10 days. FOR 10 DAYS. iv contrast (will be provided with radiology test) MRI foot/toes LT Inject, intravenously, once for 1 dose. No IV access, insert saline lock prior to the beginning of sedation, infusion, injection of imaging exam. Discontinue saline lock post exam. If Pt. has a central line or IVAD, may access for administration according to line specific nursing protocol. Once exam is complete flush line and de-access according to line specific nursing protocol in the MR contrast administration guidelines link. iv contrast (will be provided with radiology test) MRI foot/toes RT Inject, intravenously, once for 1 dose. No IV access, insert saline lock prior to the beginning of sedation, infusion, injection of imaging exam. Discontinue saline lock post exam. If Pt. has a central line or IVAD, may access for administration according to line specific nursing protocol. Once exam is complete flush line and de-access according to line specific nursing protocol in the MR contrast administration guidelines link. insulin glargine (BASAGLAR KWIKPEN U-100 INSULIN) 100 unit/mL (3 mL) Inject 40 units once daily E11.9 busPIRone (BUSPAR) 5 mg tablet Take 1 tablet by mouth three times a day. ascorbic acid, vitamin C, (VITAMIN C) 500 mg tablet Take 1 tablet by mouth once daily. aspirin 81 mg cap Take 1 Each by mouth once daily. sertraline (ZOLOFT) 100 mg tablet Take 1.5 tablets by mouth once daily. Insulin Celeste, Disposable, (PEN NEEDLE) 32 gauge x 5/32 Inject 1 Each subcutaneously every 24 hours. Give with each insulin administration. blood sugar diagnostic (BLOOD GLUCOSE TEST) test strip Test blood sugar(s) 4 times daily and PRN. Dx: Type 2 DM - Controlled E11.9 Insulin: Yes Lancets lancets Test blood sugar(s) 4 times daily and prn. Dx: Type 2 DM - Controlled E11.9 Insulin: Yes alcohol swabs Apply 1 Each to affected area four times daily. Blood-Glucose Meter 1 Each four times daily. Cholecalciferol, Vitamin D3, 125 mcg (5,000 unit) cap Take 1 tab daily with food. melatonin 10 mg cap Take 1 capsule by mouth daily at bedtime. dulaglutide (TRULICITY) 0.75 mg/0.5 mL pen injector Inject 0.75 mg subcutaneously one time a week. Blood-Glucose Meter,Continuous (DEXCOM G7 COTTON WEIGHER) [facility] [place] Dispense one chief innovation officer kit. USE FOR CONTINUOUS GLUCOSE MONITORING. MULTIPLE INSULIN INJECTIONS. E11.9 Blood-Glucose Sensor (Q1 LabsCOM G7 SENSOR) kimberly CHANGE SENSOR EVERY 10 days. USE FOR CONTINUOUS GLUCOSE MONITORING. MULTIPLE INSULIN INJECTIONS. E11.9 insulin aspart U-100 (NOVOLOG FLEXPEN U-100 INSULIN) 100 unit/mL (3 mL) Inject subcutaneously: 8 units breakfast, 4 units lunch, 4 units dinner, 2 units with 8 pm snack (if eating) PLUS Sliding scale 150=0, 151-200-1 units, 201-250=2 units, 251-300=3 units, 301-350=4 units, 351-400=5 units based on pre meal blood sugar only as needed. metFORMIN (GLUCOPHAGE) 1,000 mg tablet Take 1 tablet by mouth two times a day with meals. cyanocobalamin (VITAMIN B-12) 1,000 mcg tab Take 1 tablet by mouth once daily. multivit,stress formula/zinc (STRESS WITH ZINC ORAL) Take by mouth. acetaminophen (TYLENOL) 650 mg suppository 650 mg by RECTAL route every 4 hours as needed for pain or fever (specify temp.). doxycycline (VIBRA-TABS) 100 mg tablet (Patient not taking: Reported on 06/16/2023) ondansetron orally disintegrating (ZOFRAN ODT) 4 mg disintegrating tablet Take 4 mg by mouth every 8 hours as needed for nausea/vomiting. pregabalin (LYRICA) 225 mg capsule Take 200 mg by mouth. (Patient not taking: Reported on 06/16/2023) collagenase (SANTYL) ointment Apply to affected area once daily. APPLY TO AFFECTED AREA amitriptyline (ELAVIL) 50 mg tablet Take 1 tablet by mouth daily at bedtime. buPROPion SR (WELLBUTRIN SR) 150 mg 12 hr tablet Take 1 tablet by mouth two times a day. tamsulosin (FLOMAX) 0.4 mg Take 2 capsules by mouth once daily. sucralfate (CARAFATE) 1 gram tablet Take 1 tablet by mouth four times daily. pantoprazole DR (PROTONIX) 40 mg tablet Take 1 tablet by mouth once daily. metoprolol tartrate, short acting, (LOPRESSOR) 25 mg tablet Take 1 tablet by mouth two times a day. lisinopril (ZESTRIL) 10 mg tablet Take 1 tablet by mouth once daily. leflunomide (ARAVA) 10 mg tablet Take 1 tablet by mouth once daily. pregabalin (LYRICA) 225 mg capsule Take 1 capsule by mouth three times a day for 90 days. pen needle, diabetic, safety 31 gauge x 5/16 ndle Use as directed with insulin pen Blood-Glucose Transmitter (DEXCOM G6 TRANSMITTER) kimberly Apply new transmitter every 90 days. Clean transmitter with an alcohol swab with each sensor change. fluticasone (FLONASE) 50 mcg/actuation nasal spray Use 1 [place] in each nostril as needed. loperamide (IMODIUM) 2 mg cap(s) Take 2 mg by mouth as needed for diarrhea. polyethylene glycol 3350 (MIRALAX) 17 gram/dose powder Take by mouth as needed for constipation. Dissolve dose in 4 - 8 ounces of liquid and take as directed. ezetimibe (ZETIA) 10 mg tablet Take 1 tablet by mouth once daily. atorvastatin (LIPITOR) 80 mg tablet Take 1 tablet by mouth once daily. amLODIPine (NORVASC) 10 mg tablet Take 1 tablet by mouth once daily. DULoxetine (CYMBALTA) 60 mg capsule Take 1 capsule by mouth once daily. (Patient not taking: Reported on 07/01/2023) Gauze Bandage 4 X 4 bndg Apply 1 application to affected area once daily. Gauze Bandage (GAUZE ROLL) 2 X 2 -yard bndg Apply 1 application to affected area once daily. meclizine (ANTIVERT) 25 mg tab Take 1 tablet by mouth every 6 hours as needed (dizziness). albuterol HFA (PROVENTIL HFA, VENTOLIN HFA) 90 mcg/actuation inhaler Inhale 2 Puffs as instructed every 4 hours as needed for wheezing/shortness of breath. Lancets lancets Test blood sugar(s) 1 times daily and as needed. Dx: Type 2 DM - Controlled E11.9 Insulin: No triamcinolone acetonide (KENALOG) 0.1 % cream Apply 1 application to affected area twice daily. Apply sparingly to area for rash/itching. Once rash on hands improves, go to treating 2 day per week No current facility-administered medications for this visit. ALLERGIES No Known Allergies PAST SURGICAL HISTORY Procedure Laterality Date PAST SURGICAL HISTORY OF Right knee Physical Exam: OBJECTIVE: Constitutional: Pt is a well developed 58 year old male who is alert, oriented, cooperative and in no apparent distress. Eyes: Following during examination. No redness or drainage. Respiratory: RR normal and nonlabored. Even breathing. No evidence of distress. Psychology: Patient is engaged during conversation. Normal affect and mood. Does not appear depressed or anxious. NVSI unchanged from previous visit. Dermatological: Ulceration #1 Location: Right hallux Measurement: 1.5 cm x 1.5 cm x 1 mm Base: granular with periwound hyperkeratosis No drainage, no redness, no local signs of infection Musculoskeletal/Orthopaedic: Patient has no pain to palpation of right hallux Xrays of right foot reviewed: + erosive changes of right hallux distal tuft suggestive of bone infection ASSESSMENT: Acute hematogenous osteomyelitis of right foot (hcc) (primary encounter diagnosis) Other acute osteomyelitis of right foot (hcc) PLAN: Discussed ulceration of right hallux. Had been improving but recently, developed opening and now it appears the ulceration is back to the original size I discussed the clinical appearance of the hallux. It does not appear clinically infected but with the increase in size and concern for underlying bone infection on xray, I will place patient on antibiotic I discussed the ulceration with patient and the fact that it now shows further erosion change, I am convinced that he likely has chronic om of right hallux distal tuft. I am going to order mri on the right foot. Mri is necessary to visualize the extent of infection. I suspect the distal phalanx has infection and I am optimistic that proximal phalanx is still healthy. Discussed possible amputation of distal phalanx vs entire hallux. Patient open to amputation but would like to get mri for further evaluation. Will await mri. If mri confirms osteomyelitis, will discuss partial vs total hallux amputation. Ulceraiton was debrided today with tissue nippers of nonviable tissue. Total debridement was 1.5 cm x 1.5 cm x 1 mm. Bleeding was present and controlled with pressure. Will have patient f/u in 1 week Contineu with santyl, dressing, use of surgical shoe All Barrientos DPM AMB ROOMING INTAKE FLOWSHEET DATA Pain Pain Level: 5 Pain Location: Toe Description: Aching Duration Units: Weeks Frequency: Intermittent Intervention/Comfort measure: Reposition, Relaxation, Medication Patient presents with: Right Foot - Established Patient, Follow Up, Diabetic Foot Ulcer, Pain Nga Villalpando LPN documented in this encounter [facility] 08-19-2023 History of Present illness Narrative Radiology Service Progress Note DATE OF SERVICE: August 19, 2023 TIME: 1:36 PM PATIENT IDENTITY VERIFICATION COMPLETED USING TWO (2) STANDARD IDENTIFIERS: Name and Date of confirmed by patient verbally. FALL SCREENING: Has the patient had 2 falls in the last year or 1 fall with injury or currently using an Ambulatory Assistive Device (Walker, Cane, Wheelchair, Crutches, etc.)? Yes, Patient High Risk for Falls What interventions were put in place to prevent falls during this visit? Instructed Patient to Call for Help if Needed, Offered Assistance with Transfers/Clothing, Instructed Patient to Remain Seated (Not on Exam Table) Until Exam, and Increased Observations by Caregivers PATIENT GENDER DATA: Male PATIENT RELEVANT IMPLANT DATA REVIEWED: Yes PATIENT PRESENTS WITH AN IMPLANTABLE OR ATTACHED TANK BUILDER AND ERECTOR: Yes Dexcom ALLERGIES: Reviewed and unchanged CONTRAST ALLERGY: NO. EXAM: MRI - CONTRAST TYPE: GROUP II PERIPHERAL IV DATA: Ambulatory: A peripheral IV was started in the Left hand with a Angio cath: 24 gauge. RADIOLOGY DEPARTMENT: MR; Exam(s) Completed: Lower MSK: Forefoot/Midfoot, right SIGNATURE: RT Gail(Jennifer) PATIENT NAME: Berta Jaramillo DATE: August 19, 2023 TIME: 1:36 PM documented in this encounter [facility] 08-19-2023 History of Present illness Narrative Radiology Service Progress Note PATIENT NAME: eBrta Jaramillo DATE OF SERVICE: August 19, 2023 TIME: 10:02 AM PATIENT IDENTITY VERIFICATION COMPLETED USING TWO (2) IDENTIFIERS: Name and Date of confirmed by patient verbally. FALL SCREENING: Has the patient had 2 falls in the last year or 1 fall with injury or currently using an Ambulatory Assistive Device (Walker, Cane, Wheelchair, Crutches, etc.)? Yes, Patient High Risk for Falls What interventions were put in place to prevent falls during this visit? Offered Assistance with Transfers/Clothing and Instructed Patient to Remain Seated (Not on Exam Table) Until Exam PATIENT GENDER DATA: Male PATIENT RELEVANT IMPLANT DATA REVIEWED: Not Applicable PATIENT PRESENTS WITH AN IMPLANTABLE OR ATTACHED TANK BUILDER AND ERECTOR: No RADIOLOGY DEPARTMENT: General X-ray: Exam(s) Completed: Lower Extremity X-Ray(s): Foot, Right PERIPHERAL IV DATA: Not applicable SIGNED BY: RT Nathaniel(R) August 19, 2023 10:02 AM documented in this encounter [facility] 08-10-2023 Miscellaneous Notes Spoke with pt and he has to arrange a ride thru his insurance. Apt scheduled for 08-12-23. Sooner apt declined by pt. Layla Horner LPN Phone call to pt to offer appt with Mike Alonzo LM to call office. Toyin Liu MA Patient calls office and states he has a new wound on his R hallux, reports that it opened back up again. Reports foul order and is concerned for infection. Advsied patient that Dr. Barrientos is out of the office this week and told patient he could go to his PCP's office for possible antibiotics and wound culture or to [place] ED. Patient verbalized understanding. States he will contact PCP's office first and then go to ED if unable to be seen by PCP. documented in this encounter [facility] 07-15-2023 History of Present illness Narrative Leatha applied to ulcer of R hallux. Images from the original note were not included. FOLLOW UP PODIATRIC OFFICE VISIT Chief Complaint: This 58 year old who presents for follow up:ulceration of right hallux Patient presents to clinic for follow-up right hallux ulceration. Patient is currently using santyl and leatha to the right hallux He is nonambulatory but he is not sure his wound is healing. He has xrays from 07/01 that was concerning for bone infection. He has pvr to review. PAIN EVALUATION 07/15/2023 1253 Pain Level: 8 Pain Location: Toe R 1st and 2nd toe Description: Shooting Duration Amount of Time: 2 Duration Units: Days Frequency: Continuous Intervention/Comfort measure: Reposition;Relaxation Hemoglobin A1C Date Value Ref Range Status 05/19/2023 8.2 (H) 4.3 - 5.6 % Final Comment: A heterozygous hemoglobin variant was possibly detected. Most heterozygous hemoglobin variants do not interfere with this assay. However, interpret this hemoglobin A1c result within the patient's clinical context, as the lifespan of red blood cells may be altered. If identification of a previously unidentified hemoglobin variant is clinically indicated, consider ordering the hemoglobin evaluation cascade test. [employer] [place] [employer] guidelines indicate that patients with HgbA1c in the range 5.7-6.4% are at increased risk for development of diabetes, and intervention by lifestyle modification may be beneficial. HgbA1c greater or equal to 6.5% is considered diagnostic of diabetes. PCP: Rachel Chery MD PAST MEDICAL HISTORY Diagnosis Date Atopic eczema Chronic anemia Depression Depression Diabetes mellitus (HCC) Essential hypertension Generalized anxiety disorder Hypercholesterolemia Neuropathy Current Outpatient Medications Medication Sig amoxicillin-clavulanate potassium (AUGMENTIN) 875-125 mg per tablet Take 1 tablet by mouth two times a day for 10 days. FOR 10 DAYS. insulin glargine (BASAGLAR KWIKPEN U-100 INSULIN) 100 unit/mL (3 mL) Inject 40 units once daily E11.9 busPIRone (BUSPAR) 5 mg tablet Take 1 tablet by mouth three times a day. ascorbic acid, vitamin C, (VITAMIN C) 500 mg tablet Take 1 tablet by mouth once daily. aspirin 81 mg cap Take 1 Each by mouth once daily. sertraline (ZOLOFT) 100 mg tablet Take 1.5 tablets by mouth once daily. Insulin Celeste, Disposable, (PEN NEEDLE) 32 gauge x 5/32 Inject 1 Each subcutaneously every 24 hours. Give with each insulin administration. blood sugar diagnostic (BLOOD GLUCOSE TEST) test strip Test blood sugar(s) 4 times daily and PRN. Dx: Type 2 DM - Controlled E11.9 Insulin: Yes Lancets lancets Test blood sugar(s) 4 times daily and prn. Dx: Type 2 DM - Controlled E11.9 Insulin: Yes alcohol swabs Apply 1 Each to affected area four times daily. Blood-Glucose Meter 1 Each four times daily. Cholecalciferol, Vitamin D3, 125 mcg (5,000 unit) cap Take 1 tab daily with food. melatonin 10 mg cap Take 1 capsule by mouth daily at bedtime. dulaglutide (TRULICITY) 0.75 mg/0.5 mL pen injector Inject 0.75 mg subcutaneously one time a week. Blood-Glucose Meter,Continuous (DEXCOM G7 COTTON WEIGHER) [facility] [place] Dispense one chief innovation officer kit. USE FOR CONTINUOUS GLUCOSE MONITORING. MULTIPLE INSULIN INJECTIONS. E11.9 Blood-Glucose Sensor (DEXCOM G7 SENSOR) kimberly CHANGE SENSOR EVERY 10 days. USE FOR CONTINUOUS GLUCOSE MONITORING. MULTIPLE INSULIN INJECTIONS. E11.9 insulin aspart U-100 (NOVOLOG FLEXPEN U-100 INSULIN) 100 unit/mL (3 mL) Inject subcutaneously: 8 units breakfast, 4 units lunch, 4 units dinner, 2 units with 8 pm snack (if eating) PLUS Sliding scale 150=0, 151-200-1 units, 201-250=2 units, 251-300=3 units, 301-350=4 units, 351-400=5 units based on pre meal blood sugar only as needed. metFORMIN (GLUCOPHAGE) 1,000 mg tablet Take 1 tablet by mouth two times a day with meals. cyanocobalamin (VITAMIN B-12) 1,000 mcg tab Take 1 tablet by mouth once daily. multivit,stress formula/zinc (STRESS WITH ZINC ORAL) Take by mouth. acetaminophen (TYLENOL) 650 mg suppository 650 mg by RECTAL route every 4 hours as needed for pain or fever (specify temp.). ondansetron orally disintegrating (ZOFRAN ODT) 4 mg disintegrating tablet Take 4 mg by mouth every 8 hours as needed for nausea/vomiting. collagenase (SANTYL) ointment Apply to affected area once daily. APPLY TO AFFECTED AREA amitriptyline (ELAVIL) 50 mg tablet Take 1 tablet by mouth daily at bedtime. buPROPion SR (WELLBUTRIN SR) 150 mg 12 hr tablet Take 1 tablet by mouth two times a day. tamsulosin (FLOMAX) 0.4 mg Take 2 capsules by mouth once daily. sucralfate (CARAFATE) 1 gram tablet Take 1 tablet by mouth four times daily. pantoprazole DR (PROTONIX) 40 mg tablet Take 1 tablet by mouth once daily. metoprolol tartrate, short acting, (LOPRESSOR) 25 mg tablet Take 1 tablet by mouth two times a day. lisinopril (ZESTRIL) 10 mg tablet Take 1 tablet by mouth once daily. leflunomide (ARAVA) 10 mg tablet Take 1 tablet by mouth once daily. pregabalin (LYRICA) 225 mg capsule Take 1 capsule by mouth three times a day for 90 days. pen needle, diabetic, safety 31 gauge x 5/16 ndle Use as directed with insulin pen Blood-Glucose Transmitter ([employer] G6 TRANSMITTER) kimberly Apply new transmitter every 90 days. Clean transmitter with an alcohol swab with each sensor change. fluticasone (FLONASE) 50 mcg/actuation nasal spray Use 1 [place] in each nostril as needed. loperamide (IMODIUM) 2 mg cap(s) Take 2 mg by mouth as needed for diarrhea. polyethylene glycol 3350 (MIRALAX) 17 gram/dose powder Take by mouth as needed for constipation. Dissolve dose in 4 - 8 ounces of liquid and take as directed. ezetimibe (ZETIA) 10 mg tablet Take 1 tablet by mouth once daily. atorvastatin (LIPITOR) 80 mg tablet Take 1 tablet by mouth once daily. amLODIPine (NORVASC) 10 mg tablet Take 1 tablet by mouth once daily. Gauze Bandage 4 X 4 bndg Apply 1 application to affected area once daily. Gauze Bandage (GAUZE ROLL) 2 X 2 -yard bndg Apply 1 application to affected area once daily. meclizine (ANTIVERT) 25 mg tab Take 1 tablet by mouth every 6 hours as needed (dizziness). albuterol HFA (PROVENTIL HFA, VENTOLIN HFA) 90 mcg/actuation inhaler Inhale 2 Puffs as instructed every 4 hours as needed for wheezing/shortness of breath. Lancets lancets Test blood sugar(s) 1 times daily and as needed. Dx: Type 2 DM - Controlled E11.9 Insulin: No triamcinolone acetonide (KENALOG) 0.1 % cream Apply 1 application to affected area twice daily. Apply sparingly to area for rash/itching. Once rash on hands improves, go to treating 2 day per week doxycycline (VIBRA-TABS) 100 mg tablet (Patient not taking: Reported on 06/16/2023) pregabalin (LYRICA) 225 mg capsule Take 200 mg by mouth. (Patient not taking: Reported on 06/16/2023) DULoxetine (CYMBALTA) 60 mg capsule Take 1 capsule by mouth once daily. (Patient not taking: Reported on 07/01/2023) No current facility-administered medications for this visit. ALLERGIES No Known Allergies PAST SURGICAL HISTORY Procedure Laterality Date PAST SURGICAL HISTORY OF Right knee Physical Exam: OBJECTIVE: Constitutional: Pt is a well developed 58 year old male who is alert, oriented, cooperative and in no apparent distress. Eyes: Following during examination. No redness or drainage. Respiratory: RR normal and nonlabored. Even breathing. No evidence of distress. Psychology: Patient is engaged during conversation. Normal affect and mood. Does not appear depressed or anxious. NVSI unchanged from previous visit. Dermatological: Ulceration #1: Location: right hallux distal tuft Measurement: 4 mm x 3 mm x 1 mm Base: granular with periwound hyperkeratosis. No exposed bone. No local signs of infection. Right 2nd toenail is dystrophic. Musculoskeletal/Orthopaedic: Patient has multiple contractures of lesser toes, right foot Xrays of right foot from 07/01 reviewed. Questionable demineralization of right hallux distal hallux concerning for bone infection. ASSESSMENT: (E08.621, L97.503) Diabetic ulcer of toe associated with diabetes mellitus due to underlying condition, with necrosis of muscle, unspecified laterality (HCC) (primary encounter diagnosis) (E11.65, Z79.4) Type 2 diabetes mellitus with hyperglycemia, with long-term current use of insulin (HCC) (G62.9) Peripheral polyneuropathy PLAN: Discussed ulceration of right hallux. The hallux ulceration is smaller in size today compared to past office visit. I debrided the ulceration of nonviable tissue today with tissue nippers. Total debridement was 3 mm x 4 mm. I am going to continue with current care as it does appear to be healing. I will continue with leatha and santyl.. continue with no pressure ot right foot. Some bleeding was present and controlled with pressure and silver nitrate. I did review past xrays that were concerning but not definitive for bone infection. I am going to repeat xrays. If xrays are suggestive of bone infection, will need to discuss possible amputation. If xrays are inconclusive, alternative option is to obtain mri. Will continue with augmentin for now. Discussed pain in right 2nd toe. Likely from dystrophic toenail. Right 2nd toenail was debrided as courtesy. All Barrientos DPM AMB ROOMING INTAKE FLOWSHEET DATA Pain Pain Level: 8 Pain Location: Toe (R 1st and 2nd toe) Description: Shooting Duration Amount of Time: 2 Duration Units: Days Frequency: Continuous Intervention/Comfort measure: Reposition, Relaxation Patient presents with: Right Great Toe - Follow Up, Ulcer Patient stopped wearing post op shoe. C/o shooting pain in R 1st and 2nd toes for the past 2 days. Is concerned ulcer is getting worse. documented in this encounter [facility] 07-15-2023 History of Present illness Narrative Radiology Service Progress Note PATIENT NAME: Berta Jaramillo DATE OF SERVICE: July 15, 2023 TIME: 1:51 PM PATIENT IDENTITY VERIFICATION COMPLETED USING TWO (2) IDENTIFIERS: Name and Date of confirmed by patient verbally. FALL SCREENING: Has the patient had 2 falls in the last year or 1 fall with injury or currently using an Ambulatory Assistive Device (Walker, Cane, Wheelchair, Crutches, etc.)? Yes, Patient High Risk for Falls What interventions were put in place to prevent falls during this visit? Instructed Patient to Call for Help if Needed, Offered Assistance with Transfers/Clothing, and Increased Observations by Caregivers PATIENT GENDER DATA: Male PATIENT RELEVANT IMPLANT DATA REVIEWED: Yes PATIENT PRESENTS WITH AN IMPLANTABLE OR ATTACHED TANK BUILDER AND ERECTOR: No RADIOLOGY DEPARTMENT: General X-ray: Exam(s) Completed: Lower Extremity X-Ray(s): Foot, Right PERIPHERAL IV DATA: Not applicable SIGNED BY: RT Taylor(R) July 15, 2023 1:51 PM documented in this encounter [facility] 07-15-2023 Instructions All Barrientos - 07/15/2023 1:27 PM EST Your ulceration is healing. I would continue with the current care, ie leatha and santyl applied daily. Continue with oral antibiotic as precaution. Repeat xray Will call with results. May warrant mri. If bone infection present, may need to discuss partial toe amputation. documented in this encounter [facility] 07-02-2023 Miscellaneous Notes Order faxed as requested. Patient's request for medication is as follows: Requested Prescriptions Signed Prescriptions Disp Refills insulin glargine (BASAGLAR KWIKPEN U-100 INSULIN) 100 unit/mL (3 mL) 41 mL 3 Sig: Inject 40 units once daily E11.9 Authorizing Provider: RACHEL CHERY Prescription(s) printed as above. Please process accordingly. Fax as requested after signed nurse Kyra @ [facility] calling to request order for Basaglar Insulin be faxed to . Estephania Cervantes RN documented in this encounter [facility] 07-01-2023 History of Present illness Narrative Radiology Service Progress Note PATIENT NAME: Berta Jaramillo DATE OF SERVICE: July 01, 2023 TIME: 2:40 PM PATIENT IDENTITY VERIFICATION COMPLETED USING TWO (2) IDENTIFIERS: Name and Date of confirmed by patient verbally. FALL SCREENING: Has the patient had 2 falls in the last year or 1 fall with injury or currently using an Ambulatory Assistive Device (Walker, Cane, Wheelchair, Crutches, etc.)? Yes, Patient High Risk for Falls What interventions were put in place to prevent falls during this visit? Offered Assistance with Transfers/Clothing and DONE IN WHEELCHAIR PATIENT GENDER DATA: Male PATIENT RELEVANT IMPLANT DATA REVIEWED: Not Applicable PATIENT PRESENTS WITH AN IMPLANTABLE OR ATTACHED TANK BUILDER AND ERECTOR: No RADIOLOGY DEPARTMENT: General X-ray: Exam(s) Completed: Lower Extremity X-Ray(s): Foot, Right PERIPHERAL IV DATA: Not applicable SIGNED BY: RT Nathaniel(R) July 01, 2023 2:40 PM documented in this encounter [facility] 07-01-2023 Instructions All Barrientos - 07/01/2023 2:08 PM EST Cleanse wound with saline Apply small amount of santyl to wound base and cover with leatha followed by enrique, and dressing Continue with wheel chair Follow-up in 2 weeks documented in this encounter [facility] 07-01-2023 History of Present illness Narrative FOLLOW UP PODIATRIC OFFICE VISIT Chief Complaint: This 58 year old who presents for follow up:ulceration of right great toe Patient presents to clinic to for follow-up right great toe ulceration He is nonambulatory. He is applying santyl to the right great toe wound. He is unsure if the wound is healing He does have pvr ordered but has yet to get done. PAIN EVALUATION No data found in the last 1 encounters. Hemoglobin A1C Date Value Ref Range Status 05/19/2023 8.2 (H) 4.3 - 5.6 % Final Comment: A heterozygous hemoglobin variant was possibly detected. Most heterozygous hemoglobin variants do not interfere with this assay. However, interpret this hemoglobin A1c result within the patient's clinical context, as the lifespan of red blood cells may be altered. If identification of a previously unidentified hemoglobin variant is clinically indicated, consider ordering the hemoglobin evaluation cascade test. [place] [employer] guidelines indicate that patients with HgbA1c in the range 5.7-6.4% are at increased risk for development of diabetes, and intervention by lifestyle modification may be beneficial. HgbA1c greater or equal to 6.5% is considered diagnostic of diabetes. PCP: Rachel Chery MD PAST MEDICAL HISTORY Diagnosis Date Atopic eczema Chronic anemia Depression Depression Diabetes mellitus (HCC) Essential hypertension Generalized anxiety disorder Hypercholesterolemia Neuropathy Current Outpatient Medications Medication Sig busPIRone (BUSPAR) 5 mg tablet Take 1 tablet by mouth three times a day. ascorbic acid, vitamin C, (VITAMIN C) 500 mg tablet Take 1 tablet by mouth once daily. aspirin 81 mg cap Take 1 Each by mouth once daily. sertraline (ZOLOFT) 100 mg tablet Take 1.5 tablets by mouth once daily. insulin glargine (BASAGLAR KWIKPEN U-100 INSULIN) 100 unit/mL (3 mL) Inject 40 units once daily E11.9 Insulin Celeste, Disposable, (PEN NEEDLE) 32 gauge x 5/32 Inject 1 Each subcutaneously every 24 hours. Give with each insulin administration. blood sugar diagnostic (BLOOD GLUCOSE TEST) test strip Test blood sugar(s) 4 times daily and PRN. Dx: Type 2 DM - Controlled E11.9 Insulin: Yes Lancets lancets Test blood sugar(s) 4 times daily and prn. Dx: Type 2 DM - Controlled E11.9 Insulin: Yes alcohol swabs Apply 1 Each to affected area four times daily. Blood-Glucose Meter 1 Each four times daily. Cholecalciferol, Vitamin D3, 125 mcg (5,000 unit) cap Take 1 tab daily with food. melatonin 10 mg cap Take 1 capsule by mouth daily at bedtime. dulaglutide (TRULICITY) 0.75 mg/0.5 mL pen injector Inject 0.75 mg subcutaneously one time a week. Blood-Glucose Meter,Continuous (DEXCOM G7 COTTON WEIGHER) [facility] Dispense one chief innovation officer kit. USE FOR CONTINUOUS GLUCOSE MONITORING. MULTIPLE INSULIN INJECTIONS. E11.9 Blood-Glucose Sensor (DEXCOM G7 SENSOR) kimberly CHANGE SENSOR EVERY 10 days. USE FOR CONTINUOUS GLUCOSE MONITORING. MULTIPLE INSULIN INJECTIONS. E11.9 insulin aspart U-100 (NOVOLOG FLEXPEN U-100 INSULIN) 100 unit/mL (3 mL) Inject subcutaneously: 8 units breakfast, 4 units lunch, 4 units dinner, 2 units with 8 pm snack (if eating) PLUS Sliding scale 150=0, 151-200-1 units, 201-250=2 units, 251-300=3 units, 301-350=4 units, 351-400=5 units based on pre meal blood sugar only as needed. metFORMIN (GLUCOPHAGE) 1,000 mg tablet Take 1 tablet by mouth two times a day with meals. cyanocobalamin (VITAMIN B-12) 1,000 mcg tab Take 1 tablet by mouth once daily. multivit,stress formula/zinc (STRESS WITH ZINC ORAL) Take by mouth. acetaminophen (TYLENOL) 650 mg suppository 650 mg by RECTAL route every 4 hours as needed for pain or fever (specify temp.). ondansetron orally disintegrating (ZOFRAN ODT) 4 mg disintegrating tablet Take 4 mg by mouth every 8 hours as needed for nausea/vomiting. collagenase (SANTYL) ointment Apply to affected area once daily. APPLY TO AFFECTED AREA amitriptyline (ELAVIL) 50 mg tablet Take 1 tablet by mouth daily at bedtime. buPROPion SR (WELLBUTRIN SR) 150 mg 12 hr tablet Take 1 tablet by mouth two times a day. tamsulosin (FLOMAX) 0.4 mg Take 2 capsules by mouth once daily. sucralfate (CARAFATE) 1 gram tablet Take 1 tablet by mouth four times daily. pantoprazole DR (PROTONIX) 40 mg tablet Take 1 tablet by mouth once daily. metoprolol tartrate, short acting, (LOPRESSOR) 25 mg tablet Take 1 tablet by mouth two times a day. lisinopril (ZESTRIL) 10 mg tablet Take 1 tablet by mouth once daily. leflunomide (ARAVA) 10 mg tablet Take 1 tablet by mouth once daily. pregabalin (LYRICA) 225 mg capsule Take 1 capsule by mouth three times a day for 90 days. pen needle, diabetic, safety 31 gauge x 5/16 ndle Use as directed with insulin pen Blood-Glucose Transmitter ([employer] G6 TRANSMITTER) kimberly Apply new transmitter every 90 days. Clean transmitter with an alcohol swab with each sensor change. fluticasone (FLONASE) 50 mcg/actuation nasal spray Use 1 [place] in each nostril as needed. loperamide (IMODIUM) 2 mg cap(s) Take 2 mg by mouth as needed for diarrhea. polyethylene glycol 3350 (MIRALAX) 17 gram/dose powder Take by mouth as needed for constipation. Dissolve dose in 4 - 8 ounces of liquid and take as directed. ezetimibe (ZETIA) 10 mg tablet Take 1 tablet by mouth once daily. atorvastatin (LIPITOR) 80 mg tablet Take 1 tablet by mouth once daily. amLODIPine (NORVASC) 10 mg tablet Take 1 tablet by mouth once daily. Gauze Bandage 4 X 4 bndg Apply 1 application to affected area once daily. Gauze Bandage (GAUZE ROLL) 2 X 2 -yard bndg Apply 1 application to affected area once daily. meclizine (ANTIVERT) 25 mg tab Take 1 tablet by mouth every 6 hours as needed (dizziness). albuterol HFA (PROVENTIL HFA, VENTOLIN HFA) 90 mcg/actuation inhaler Inhale 2 Puffs as instructed every 4 hours as needed for wheezing/shortness of breath. Lancets lancets Test blood sugar(s) 1 times daily and as needed. Dx: Type 2 DM - Controlled E11.9 Insulin: No triamcinolone acetonide (KENALOG) 0.1 % cream Apply 1 application to affected area twice daily. Apply sparingly to area for rash/itching. Once rash on hands improves, go to treating 2 day per week doxycycline (VIBRA-TABS) 100 mg tablet (Patient not taking: Reported on 06/16/2023) pregabalin (LYRICA) 225 mg capsule Take 200 mg by mouth. (Patient not taking: Reported on 06/16/2023) DULoxetine (CYMBALTA) 60 mg capsule Take 1 capsule by mouth once daily. (Patient not taking: Reported on 07/01/2023) No current facility-administered medications for this visit. ALLERGIES No Known Allergies PAST SURGICAL HISTORY Procedure Laterality Date PAST SURGICAL HISTORY OF Right knee Physical Exam: OBJECTIVE: Constitutional: Pt is a well developed 58 year old male who is alert, oriented, cooperative and in no apparent distress. Eyes: Following during examination. No redness or drainage. Respiratory: RR normal and nonlabored. Even breathing. No evidence of distress. Psychology: Patient is engaged during conversation. Normal affect and mood. Does not appear depressed or anxious. NVSI unchanged from previous visit. Dermatological: Ulceration #1 Location: right hallux Measurement: 1.3 cm x 1.5 cm Base: granular without signs of infection Periwound hyperkeratosis Musculoskeletal/Orthopaedic: Patient has no pain to palpation of right hallux ASSESSMENT: (E08.621, L97.503) Diabetic ulcer of toe associated with diabetes mellitus due to underlying condition, with necrosis of muscle, unspecified laterality (HCC) (primary encounter diagnosis) PLAN: Discussed ulceration of right hallux The ulceration appears more granular today wihtout signs of infection. I debrided the wound of all nonviable tissue with tissue nippers. Total debridement was 1.3 cm x 1.5 cm I am going to have him continue with light amount of santyl and apply leatha followed by dressing Continue with wheel chair Repeat xrays today ordered to access for bone infection Follow-up in 2 weeks Await pvr All Barrientos DPM Patient presents with: Right Great Toe - Follow Up, Ulcer documented in this encounter [facility] 06-23-2023 Miscellaneous Notes Patient has been identified by name and date of : Yes Pharmacy phones for refill(s): Requested Prescriptions Pending Prescriptions Disp Refills busPIRone (BUSPAR) 5 mg tablet 90 tablet 11 Sig: Take 1 tablet by mouth three times a day. ascorbic acid, vitamin C, (VITAMIN C) 500 mg tablet Sig: Take 1 tablet by mouth once daily. aspirin 81 mg cap Sig: Take by mouth once daily. sertraline (ZOLOFT) 100 mg tablet Sig: Take 1.5 tablets by mouth once daily. Date of last office visit in primary care: 06/07/2023 Date of next office visit in primary care: 08/18/2023 Please advise. Thank you. Phyllis Haskins LPN. documented in this encounter [facility] 06-22-2023 Miscellaneous Notes Addended by: ALLAN BREAUX on: 06/22/2023 11:58 AM Modules accepted: Orders Pended and sent. Allan Breaux RN June 22, 2023 11:58 AM Please pend RXs for me, I will send - thank you Call placed to Pt. He reports he needs a glucometer to have on hand in the case his Dexcom quits working. He currently doesn't have one so he will need the glucometer, lancets, test strips, and alcohol swabs. Please send to [facility]. Thanks! APRIL Lambert His long acting insulin has been sent IS PATIENT USING A CGM? For his blood sugars - he wants sensors or an actual glucometer for finger sticks? Please advise Patient's request for medication is as follows Requested Prescriptions Signed Prescriptions Disp Refills insulin glargine (BASAGLAR KWIKPEN U-100 INSULIN) 100 unit/mL (3 mL) 41 mL 3 Sig: Inject 40 units once daily E11.9 Authorizing Provider: CORAL MARTINEZ Insulin Celeste, Disposable, (PEN NEEDLE) 32 gauge x 5/32 100 Each 3 Sig: Inject 1 Each subcutaneously every 24 hours. Give with each insulin administration. Authorizing Provider: CORAL MARTINEZ Order entered - please phone pharmacy and notify patient. Coral Martinez APRN.DAWIT Patient called, verified name and date of , regarding medications Patient states he was told to call when he was almost out of Levemir, patient stated he was going to start a new medication but not sure of name of medication. Patient will need the medication called in [place]. Patient stated also needs a monitor, does not have one. Please review and advise. Emily Collins LPN June 22, 2023 10:50 AM documented in this encounter [facility] 06-18-2023 Miscellaneous Notes Pharmacy calling regarding Vitamin D3 and K2. The strength that was sent they cannot get. They can get 100 mcg for the Vitamin K the Vitamin did they have. Please call to discuss. Thank you! documented in this encounter [facility] 06-14-2023 History of Past i llness Narrative Problem Noted Date Diagnosed Date Resolved Date Body mass index (BMI) 40.0-44.9, adult 06/14/2023 06/15/2023 documented as of this encounter (statuses as of 06/19/2023) [facility] History of Past illness Narrative* Problem Noted Date Diagnosed Date Resolved Date Body mass index (BMI) 40.0-44.9, adult 06/14/2023 06/15/2023 documented as of this encounter (statuses as of 06/22/2023) [facility] History of Past illness Narrative* Problem Noted Date Diagnosed Date Resolved Date Body mass index (BMI) 40.0-44.9, adult 06/14/2023 06/15/2023 documented as of this encounter (statuses as of 06/24/2023) [facility] History of Past illness Narrative* Problem Noted Date Diagnosed Date Resolved Date Body mass index (BMI) 40.0-44.9, adult 06/14/2023 06/15/2023 documented as of this encounter (statuses as of 07/01/2023) [facility] History of Past illness Narrative* Problem Noted Date Diagnosed Date Resolved Date Body mass index (BMI) 40.0-44.9, adult 06/14/2023 06/15/2023 documented as of this encounter (statuses as of 07/02/2023) [address]29-2024 History of Past illness Narrative* Problem Noted Date Diagnosed Date Resolved Date Body mass index (BMI) 40.0-44.9, adult 06/14/2023 06/15/2023 documented as of this encounter (statuses as of 07/02/2023) [address]29-2024 History of Past illness Narrative* Problem Noted Date Diagnosed Date Resolved Date Body mass index (BMI) 40.0-44.9, adult 06/14/2023 06/15/2023 documented as of this encounter (statuses as of 07/16/2023) [address]29-2024 History of Past illness Narrative* Problem Noted Date Diagnosed Date Resolved Date Body mass index (BMI) 40.0-44.9, adult 06/14/2023 06/15/2023 documented as of this encounter (statuses as of 07/16/2023) [address]29-2024 History of Past illness Narrative* Problem Noted Date Diagnosed Date Resolved Date Body mass index (BMI) 40.0-44.9, adult 06/14/2023 06/15/2023 documented as of this encounter (statuses as of 08/10/2023) [address]29-2024 History of Past illness Narrative* Problem Noted Date Diagnosed Date Resolved Date Body mass index (BMI) 40.0-44.9, adult 06/14/2023 06/15/2023 documented as of this encounter (statuses as of 08/20/2023) [address]29-2024 History of Past illness Narrative* Problem Noted Date Diagnosed Date Resolved Date Body mass index (BMI) 40.0-44.9, adult 06/14/2023 06/15/2023 documented as of this encounter (statuses as of 08/20/2023) [address]29-2024 History of Past illness Narrative* Problem Noted Date Diagnosed Date Resolved Date Body mass index (BMI) 40.0-44.9, adult 06/14/2023 06/15/2023 documented as of this encounter (statuses as of 08/20/2023) [facility] History of Past illness Narrative* Problem Noted Date Diagnosed Date Resolved Date Body mass index (BMI) 40.0-44.9, adult 06/14/2023 06/15/2023 documented as of this encounter (statuses as of 08/28/2023) [facility] History of Present illness Narrative* Ar Mckee RT(R) - 06/07/2023 11:30 AM EST Radiology Service Progress Note PATIENT NAME: Berta Jaramillo DATE OF SERVICE: June 07, 2023 TIME: 11:41 AM PATIENT IDENTITY VERIFICATION COMPLETED USING TWO (2) IDENTIFIERS: Name and Date of confirmedby patient verbally. FALL SCREENING: Has the patient had 2 falls in the last year or 1 fall with injury or currently using an Ambulatory Assistive Device (Walker, Cane, Wheelchair, Crutches, etc.)? Yes, Patient High Riskfor Falls What interventions were put in place to prevent falls during this visit? Offered Assistance with Transfers/Clothing and Instructed Patient to Remain Seated (Not on Exam Table) Until Exam PATIENT GENDER DATA: Male PATIENT RELEVANT IMPLANT DATA REVIEWED: Not Applicable RADIOLOGY DEPARTMENT: General X-ray: Exam(s) Completed: Lower Extremity X- Ray(s): Foot, Right PERIPHERAL IV DATA: Not applicable SIGNED BY: RT Nathaniel(R) June 07, 2023 11:41 AM [facility] Miscellaneous Notes* Result Encounter Note - Mike Candelario APRN.CNS - 06/07/2023 11:30 AM EST No acute osseous or abnormality noted on x-ray. [facility] Progress note* Result Encounter Note - Mike Candelario APRN.CNS - 06/07/2023 11:30 AM EST No acute osseous or abnormality noted on x-ray. [facility]12-01-2023 Miscellaneous Notes* Telephone Encounter - Rachel Chery MD - 04/16/2023 12:43 AM EST Okayed * Telephone Encounter - Nidhi Wynn RN - 04/15/2023 9:58 AM EST Date of last office: 03/22/2023 Date of next office visit: 05/19/2023 Requested Prescriptions Pending Prescriptions Disp Refills pen needle, diabetic, safety 31 gauge x 09/29 ndle 200 Each 3 Sig: Use as directed with insulin pen Date of Last Labs: 10/22/2022 Please advise. Thank you. Nidhi Wynn, RN. documented in this encounterWv[facility]11-16-2023 Miscellaneous Notes* Telephone Encounter - Layla Horner LPN - 04/01/2023 2:28 PM EST Spoke with pt and information listed below given. Pt verbalizes understanding. Layla Horner LPN * Telephone Encounter - Rachel Chery MD - 03/31/2023 2:31 PM EST Patient contacted yet to see if wants to try Dexcom through [facility]? Sent so can see if covered. I am not familiar with the [employer] wireless meter he requested. The following approved medication requests have been transmitted electronically. Requested Prescriptions Signed Prescriptions Disp Refills Blood-Glucose Sensor (DEXCOM G6 SENSOR) kimberly 9 Each 3 Sig: Apply new sensor every ten (10) days to abdomen. Authorizing Provider: RACHEL CHERY Blood-Glucose Meter,Continuous (DEXCOM G6 COTTON WEIGHER) misc 1 Each 0 Sig: Use to check blood sugar at least four (4) times daily. Authorizing Provider: RACHEL CHERY Blood-Glucose Transmitter (DEXCOM G6 TRANSMITTER) kimberly 1 Each 3 Sig: Apply new transmitter every 90 days. Clean transmitter with an alcohol swab with each sensor change. Authorizing Provider: RACHEL CHERY MD * Telephone Encounter - Layla Horner LPN - 03/30/2023 3:52 PM EST Pt called in and wanted to get a new glucose meter. He asked for one he found on the internet and wanted it sent to [facility]. The one he suggested was an [employer] wireless meter. [facility] has never heard of this and they looked it up and there is not much on this but maybe it is some kind of watch. When speaking with [facility] pt never got the last one Dexcom 6 because the prescriptions below needed to be sen t to a pharmacy that can bill on the medical side. [facility] can't do this, Pt's insurance had approvedit. Montsecandi Zelaya was notified and no one called [facility] back for the information. [facility] reports [facility] very good and reliable to do this for pt. Need to check with pt to see if he would like to getthe Dexcom 6. Tried to reach pt back and his voicemail is full. Try later. Layla Horner LPN documented in this encounterWvumed[facility]11-06-2023 Instructions* Patient Instructions* Mike Candelario APRN.ELZA - 03/22/2023 11:00 AM EST Schedule an appointment with a dentist regarding your dental infection and need for tooth extractions. Check to see where your insurance covers you for your wheelchair replacement then let us know so wecan send the order for you. Call [facility] and ask about the pressure relief boot to see if they can send it to you documented in this encounterWvumedicine [facility]11-06-2023 History of Present illness Narrative* Mike Candelario APRN.CNS - 03/22/2023 10:20 AM EST SUBJECTIVE: Pneumococcal Vaccine(1 - PCV) Never done Urine Albumin:Creatinine Ratio Never done Dilated Retinal Exam Never done DTaP,Tdap,Td Vaccine(1 - Tdap) Never done Shingrix Vaccine(1 of 2) Never done Colorectal Cancer Screening Never done Lung Cancer Screening Never done Hepatitis B Vaccine(2 of 3 - 19+ 3-dose series) due on 02/27/2022 Influenza Vaccine(1) due on 01/15/2023 Covid-19 Vaccine( - 2022- season) due on 01/15/2023 LDL Cholesterol due on 01/30/2023 HPI Berta Jaramillo is a 57 year old male. PMH significant for ACTIVE PROBLEM LIST Neuropathy Essential Hypertension Diabetes Mellitus (Hcc) Depression, Recurrent (Hcc) Atopic Eczema History of Rheumatoid Arthritis Rheumatoid Arthritis, Involving Unspecified Site, Unspecified Whether Rheumatoid Factor Present (Hcc) HPI excerpted from previous visits: Presents today to establish care with Rachel Chery MD No prior CC visits. Previous PCP: Prosper Guzmán,M1 [employer]MAN [address] [facility] [address] W[place], EXTENSION PROFESSOR-C [address] [place] [address] States Wild was coming to his facility - assisted living in [place]. Was not a good match so changing providers. States she stopped seeing him when he changed to CC. Last seen: September 2021 Labwork: Jul 2021 ER/Hospitalization: Dec 2020 [facility] vomiting, ANDRE Outside records: medications only; no medical records Pain management Dr Rosa for peripheral neuropathy. Taking belbuca and pregabalin. Belbuca per Dr Rosa. Pregaballin per [place]. States he was seen by winch runner in [facility], does not recall who, for RA. Has seen a bacteriology research assistant, but not currently. States billing concern. Since last seen he had emergency department visit at [facility] on March 17, 2023. He reported being at local extended care facility and recent discharge and did not have medications for neuropathic pain. He had not followed up with either extended-care facility where he was discharged from her his primary care physician to have a refill completed. He reported being unsure of the dose. He reported nausea and vomiting on the day he arrived. Reported not checking blood sugars. Reported the lower extremity injury. Physical exam showed poor dentition. Noted to have diabetic neuropathy both feet. He was provided with a single dose of Lyrica and advised to follow-up with either his primary care physician or [facility] care facility to get prescriptions that he needed filled. He was treated with Zofran for nausea. He was advised to check blood sugars at home. Fingerstick in ER was 201 mg/DL. He returned to [facility] on March 18, 2023 with report of nausea and vomiting. [facility]. He points to lower abdomen for pain but then states hurting everywhere. Reported vomiting. He reported every time he eats or drinks he was vomiting. He reported chest pain and squeezing in the epigastrium. No shortness of breath or cough. He reported that he had a UTI as well. Lab work completedCBC in acceptable range. Hemoglobin stable at 12.4. Platelets normal. Renal function and electrolytes within normal limits. Glucose 238. LFTs normal. High-sensitivity troponin 6. EKG showed normal sinus rhythm without sign of ischemia. Chest x-ray showed atelectasis versus infiltrate. CT of the abdomen and pelvis was negative for acute intra-abdominal abnormalities. CT did not show any evidence of pneumonia in the lung bases. No cough or shortness of breath. He asked for medication for headacheand was treated with Reglan and Benadryl. Urinalysis was negative for infection. CT brain was obtain ed due to headache and did not show any acute cranial abnormalities. Exam showed evidence of dentalcaries possible dental abscess. He reports losing teeth. He was placed on Augmentin and referred toa dentist with phone numbers, no appointment. Given Zofran first facility. He was revealed in the ER. He was discharged back to his facility. Impression nausea vomiting chest pain abdominal pain and dental abscess. Was at [facility]. Has now returned to [facility]. Pharmacy is [facility]. Today reports feeling somewhat improved. No reported headache or vomiting. Some nausea which has been helped with nausea medicine. Antibiotic: Has been taking Augmentin, seems to be helping dental infection Fever: no Dental appointment: Not yet scheduled. FBS today [id number]. He reports interested in wheelchair replacement. Has not yet been able to accomplish this. Order previously sent to [employer] but stated was not covered. He does not know where he should get his wheelchair replacement from. He reports limited ambulationdue to neuropathy and rheumatoid arthritis. Does complete transfers and get into bed and shower. Some minor walking in his room. States little mobility, primarily sits in wheelchair due to peripheralneuropathy which is aggravated by walking. Can walk short distances but avoids due to pain. Has been using current electric wheelchair for a long time and it is falling apart. He reports lower extremity wounds are healed, [facility] Notes he needs a pressure relief boot returned to him from [facility]. Patient's last HgA1C was Hemoglobin A1C (%) Date Value 10/22/2022 7.2 01/30/2022 7.4 ) Hyperlipidemia. Mr. Jaramillo reports doing well on current therapy . His most recent lipid panels are: Cholesterol, Total (mg/dL) Date Value 01/30/2022 72 HDL Cholesterol (mg/dL) Date Value 01/30/2022 26 LDL Cholesterol (mg/dL) Date Value 01/30/2022 20 Triglyceride (mg/dL) Date Value 01/30/2022 129 HTN: Without report of headache, chest pain, palpitations, dyspnea, peripheral edema, orthopnea, fatigue, and PND. Last 14 Encounter BP Readings: Date: BP: 03/22/2023 100/63 02/25/2023 101/66 11/24/2022 108/60 11/11/2022 118/58 10/23/2022 101/58 10/22/2022 112/60 05/27/2022 112/64 04/24/2022 102/52 04/14/2022 104/60 01/30/2022 110/60 GERD: no current complaints Review of Systems Constitutional: Negative. Musculoskeletal: Positive for arthralgias, back pain and gait problem. Neurological: Positive for numbness. Objective BP 100/63 Pulse 114 Resp 16 Physical Exam Vitals and nursing note reviewed. Constitutional: Appearance: Normal appearance. HENT: Head: Normocephalic and atraumatic. Mouth/Throat: Lips: [place]. Mouth: Mucous membranes are moist. Dentition: Dental caries present. Pharynx: Oropharynx is clear. Tonsils: No tonsillar exudate. Comments: multiple tooth loss Eyes: Conjunctiva/sclera: Conjunctivae normal. Neck: Thyroid: No thyromegaly. Vascular: Normal carotid pulses. No JVD. Cardiovascular: Rate and Rhythm: Normal rate and regular rhythm. Heart sounds: Normal heart sounds. Pulmonary: Effort: Pulmonary effort is normal. Breath sounds: Normal breath sounds. Abdominal: General: Bowel sounds are normal. Palpations: Abdomen is soft. Skin: General: Skin is warm and dry. Neurological: General: No focal deficit present. Mental Status: He is alert. ALLERGIES No Known Allergies Medications pregabalin (LYRICA) 225 mg capsule Take 1 capsule by mouth three times a day for 90 days. blood sugar diagnostic (BLOOD GLUCOSE TEST) test strip Test blood sugar(s) 4 times daily and PRN. Dx: Type 2 DM - Controlled E11.9 Insulin: Yes Lancets lancets Test blood sugar(s) 4 times daily and prn. Dx: Type 2 DM - Controlled E11.9 Insulin: Yes Blood-Glucose Meter,Continuous (DEXCOM G6 COTTON WEIGHER) misc Use to check blood sugar at least four (4)times daily. Blood-Glucose Transmitter (DEXCOM G6 TRANSMITTER) kimberly Apply new transmitter every 90 days. Clean transmitter with an alcohol swab with each sensor change. ezetimibe (ZETIA) 10 mg tablet Take 1 tablet by mouth once daily. lisinopril (ZESTRIL) 10 mg tablet Take 1 tablet by mouth once daily. metoprolol tartrate, short acting, (LOPRESSOR) 25 mg tablet Take 1 tablet by mouth twice daily. buPROPion SR (ZYBAN SR; WELLBUTRIN SR) 150 mg 12 hr tablet Take 1 tablet by mouth twice daily. leflunomide (ARAVA) 10 mg tablet Take 1 tablet by mouth once daily. atorvastatin (LIPITOR) 80 mg tablet Take 1 tablet by mouth once daily. amitriptyline (ELAVIL) 75 mg tablet Take 1 tablet by mouth daily at bedtime. tamsulosin (FLOMAX) 0.4 mg Take 2 capsules by mouth once daily. QUEtiapine (SEROQUEL) 25 mg tablet Take 1 tablet by mouth twice daily. amLODIPine (NORVASC) 10 mg tablet Take 1 tablet by mouth once daily. pantoprazole DR (PROTONIX) 40 mg tablet Take 1 tablet by mouth once daily. metFORMIN (GLUCOPHAGE) 1,000 mg tablet Take 1 tablet by mouth twice daily with meals. DULoxetine (CYMBALTA) 60 mg capsule Take 1 capsule by mouth once daily. collagenase (SANTYL) ointment Apply to affected area once daily. Gauze Bandage 4 X 4 bndg Apply 1 application to affected area once daily. Gauze Bandage (GAUZE ROLL) 2 X 2 -yard bndg Apply 1 application to affected area once daily. sertraline (ZOLOFT) 50 mg tablet Take 1.5 tablets by mouth once daily. To equal 75 mg daily. sertraline (ZOLOFT) 25 mg tablet Take 1 tablet by mouth once daily. Take this in addition to 50 mg for a total of 75 mg per day meclizine (ANTIVERT) 25 mg tab Take 1 tablet by mouth every 6 hours as needed (dizziness). ketoconazole (NIZORAL) 2 % shampoo Apply to affected area two times a week. Apply to scalp; lather;rinse off after 5 minutes albuterol HFA (PROVENTIL HFA, VENTOLIN HFA) 90 mcg/actuation inhaler Inhale 2 Puffs as instructed every 4 hours as needed for wheezing/shortness of breath. Lancets lancets Test blood sugar(s) 1 times daily and as needed. Dx: Type 2 DM - Controlled E11.9 Insulin: No pen needle, diabetic, safety 31 gauge x 5/16 ndle Use as directed with insulin pen insulin aspart U-100 (NOVOLOG FLEXPEN U-100 INSULIN) 100 unit/mL (3 mL) Inject subcutaneously: 8 units breakfast, 4 units lunch, 4 units dinner, 2 units with 8 pm snack (if eating) PLUS Sliding agoqc394=7, 151-200-1 units, 201-250=2 units, 251-300=3 units, 301-350=4 units, 351-400=5 units based onpre meal blood sugar only as needed. insulin needles, DISPOSABLE, (ULTICARE PEN NEEDLE) 31 gauge x 5/16 Inject 1 Each subcutaneously asdirected. Cholecalciferol, Vitamin D3, 50 mcg (2,000 unit) cap Take by mouth. aspirin 81 mg cap Take by mouth once daily. Blood-Glucose Sensor (DEXCOM G6 SENSOR) kimberly Apply new sensor every ten (10) days to abdomen. busPIRone (BUSPAR) 5 mg tablet Take 1 tablet by mouth three times daily. sucralfate (CARAFATE) 1 gram tablet Take 1 tablet by mouth four times daily. triamcinolone acetonide (KENALOG) 0.1 % cream Apply 1 application to affected area twice daily. Apply sparingly to area for rash/itching. Once rash on hands improves, go to treating 2 day per week TRESIBA FLEXTOUCH U-100 100 unit/mL (3 mL) injection pen Inject 40 Units subcutaneously daily at bedtime. dupilumab (DUPIXENT PEN) 300 mg/2 mL pen Inject subcutaneously every 2 weeks. (Patient not taking: Reported on 03/22/2023) PAST MEDICAL HISTORY Diagnosis Date Atopic eczema Chronic anemia Depression Depression Diabetes mellitus (HCC) Essential hypertension Generalized anxiety disorder Hypercholesterolemia Neuropathy Social History Tobacco Use Smoking status: Every Day Packs/day: 1.00 Years: 44.00 Additional pack years: 0.00 Total pack years: 44.00 Types: Cigarettes Smokeless tobacco: Never Vaping Use Vaping Use: Never used Substance Use Topics Alcohol use: Never Drug use: Never Component Latest Ref Rng & Units 01/30/2022 04/24/2022 WBC 3.70 - 11.00 k/uL 8.12 RBC 4.20 - 6.00 m/uL 4.27 Hemoglobin 13.0 - 17.0 g/dL 11.0 (L) Hematocrit 39.0 - 51.0 % 32.4 (L) MCV 80.0 - 100.0 fL 75.9 (L) MCH 26.0 - 34.0 pg 25.8 (L) MCHC 30.5 - 36.0 g/dL 34.0 RDW-CV 11.5 - 15.0 % 19.0 (H) Platelet Count 150 - 400 k/uL 248 MPV 9.0 - 12.7 fL 10.8 Neut% % 57.3 Abs Neut (ANC) 1.45 - 7.50 k/uL 4.66 Lymph% % 29.7 Abs Lymph 1.00 - 4.00 k/uL 2.41 [place]% % 6.7 Abs [place] <0.87 k/uL 0.54 Eosin% % 5.2 Abs Eosin <0.46 k/uL 0.42 Baso% % 0.9 Abs Baso <0.11 k/uL 0.07 Immature Gran % % 0.2 IMMATURE GRANS (ABS) <0.10 k/uL <0.03 NRBC /100 WBC 0.0 Absolute nRBC <0.01 k/uL <0.01 DTYPE Auto Protein, Total 6.3 - 8.0 g/dL 7.1 Albumin 3.9 - 4.9 g/dL 4.0 Calcium 8.5 - 10.2 mg/dL 9.0 9.0 Bilirubin, Total 0.2 - 1.3 mg/dL 0.2 Alkaline Phosphatase 38 - 113 U/L 141 (H) AST 14 - 40 U/L 13 (L) ALT 10 - 54 U/L 14 Glucose 74 - 99 mg/dL 169 (H) 204 (H) BUN 9 - 24 mg/dL 11 15 Creatinine 0.73 - 1.22 mg/dL 0.94 1.02 Sodium 136 - 144 mmol/L 139 138 Potassium 3.7 - 5.1 mmol/L 5.1 5.3 (H) Chloride 97 - 105 mmol/L 103 104 CO2 22 - 30 mmol/L 27 24 Anion Gap 9 - 18 mmol/L 9 10 eGFR >=60 mL/min/1.73m 96 87 Cholesterol, Total <200 mg/dL 72 Triglyceride <150 mg/dL 129 HDL Cholesterol >39 mg/dL 26 (L) Non HDL Cholesterol <130 mg/dL 46 Fasting Time hrs 12 VLDL Cholesterol <30 mg/dL 26 TC:HDL Ratio <5.10 2.77 LDL Cholesterol <100 mg/dL 20 LDL:HDL Ratio <2.54 0.77 HIV 12 Combo (Ag/Ab) Nonreactive Nonreactive HIV 1/2 Ab HIV Interpretation Hemoglobin A1C 4.3 - 5.6 % 7.4 (H) Estimated Average Glucose mg/dL 166 Hep C Antibody IA Negative Negative PSA Screening <2.60 ng/mL 0.10 ASSESSMENT/PLAN: 1. Poor dentition - ICD9: 525.9, ICD10: K08.9 (primary diagnosis) Multiple tooth loss, being treated with Augmentin for dental infection. Has not yet scheduled with 2. Rheumatoid arthritis, involving unspecified site, unspecified whether rheumatoid factor present (HCC) - ICD9: 714.0, ICD10: M06.9 3. Peripheral polyneuropathy - ICD9: 356.9, ICD10: G62.9 Stable on current treatments, in need of replacement wheelchair. 4. Diabetic ulcer of left heel associated with diabetes mellitus due to underlying condition, limited to breakdown of skin (HCC) - ICD9: 249.80, 707.14, ICD10: E08.621, L97.421 5. Diabetic ulcer of ankle (HCC) - ICD9: 250.80, 707.13, ICD10: E11.622, L97.309 Was at [facility]. Wounds are healed currently. Advised: Schedule an appointment with a dentist regarding your dental infection and need for tooth extractions. Check to see where your insurance covers you for your wheelchair replacement then let us know so wecan send the order for you. Call [facility] and ask about the pressure relief boot to see if they can send it to you Mike Candelario APRN.CNS . Medical Decision Making: Problems: Moderate: 2+ stable chronic illnesses Data: Unique source(s) for external note(s) reviewed: 1 Unique test result(s) reviewed: 3+ Risk: Moderate: Drug management Medical Decision Making Level: 4 - Moderate documented in this encounterWvumed[facility]11-03-2023 Discharge summary Author Kurtis Cross [facility] March 18, 2023 11:08pm Note Date/Time March 18, 2023 9 :02pm [facility] Medical Records Department [address] [place] [id number] Emergency Department Summary 03/18/23 MR#: [id number] Acct: [id number] Name: BERTA JARAMILLO Rep #:[id number] : 1965 57 From: Kurtis Cross DO PCP: Dr. Rachel Chery MD Status:RE G ER Location: ED HPI History of Present Illness Chief Complaint: Nausea/Vomiting Narrative Narrative: 87-year-old male presenting with multiple complaints. Patient was seen here in the ED yesterday and apparently needed some pain medicine for his neuropathy. He was discharged back to his facility where he states he started to have abdominal pain. Use points to his lower abdomen but then states it hurts everywhere. He states has been vomiting since then. He states every time he starts to eat again he vomits. Everything he drinks comes up as well. He denies any diarrhea. He is not sure if he had a fever. He states that today sometime this morning he started to develop chest pain which feels like it squeezing him in his epigastrium. Denies lightheadedness or dizziness. Denies shortness of breath. Denies cough. Patient with past medical history of bipolar disorder, neuropathy, diabetes no history of cardiac disease that he is aware of. He states that he was told this morning that he has a urinary tract infection. He is not sure if he is medicated for the. [facility] Medical History Anxiety and depression Bipolar disorder Chronic anemia Decubitus ulcer of left buttock, stage 2 Decubitus ulcer of left buttock, stage 3 Delusional disorder Diabetes Diabetic ulcer of left heel Diabetic ulcer of right heel HTN (hypertension) Hypercholesterolemia Morbid obesity Neuropathy Rheumatoid arthritis RUQ abdominal pain Tobacco use Type 2 diabetes mellitus Uncontrolled type 2 diabetes mellitus with hyperosmolar nonketotic hyperglycemia Home Medications aspirin 81 mg chewable tablet 81 mg PO DAILY heart 11/27/20 [History Last Taken 01/16/21] atorvastatin 80 mg tablet 80 mg PO QHS cholesterol 11/27/20 [History Last Taken 01/14/21] buspirone 5 mg tablet 5 mg PO TID anxiety 11/27/20 [History Last Taken 01/16/21] cholecalciferol (vitamin D3) 50 mcg (2,000 unit) tablet (Vitamin D3) 50 mcg PO DAILY vitamin 11/27/20 [History Last Taken 01/16/21] duloxetine 60 mg capsule,delayed release sprinkle 60 mg PO QHS depression 11/27/20 [History Last Taken Unknown] ezetimibe 10 mg tablet 10 mg PO DAILY cholesterol 11/27/20 [History Last Taken 01/16/21] ferrous sulfate 325 mg (65 mg iron) tablet 325 mg PO DAILY supplement 11/27/20 [History Last Taken 01/16/21] insulin lispro 100 unit/mL subcutaneous cartridge See Protocol subcut TID diabetes 11/27/20 [History Last Taken 01/16/21] mecobalamin (vitamin B12) 1,000 mcg chewable tablet (B12 Active) 1,000 mcg PO DAILY vitamin 11/27/20 [History Last Taken 01/16/21] metoprolol tartrate 25 mg tablet 25 mg PO BID htn 11/27/20 [History Last Taken 01/16/21] omega 1-lkr-opb-fish oil 1,000 mg (120 mg-180 mg) capsule (Fish Oil) 1 cap PO BID supplement 11/27/20 [History Last Taken 01/16/21] pregabalin 200 mg capsule 200 mg PO TID nerve pill 11/27/20 [History Last Taken 01/16/21] sertraline 50 mg tablet 75 mg PO DAILY depression 11/27/20 [History Last Taken 01/15/21] tamsulosin 0.4 mg capsule 0.4 mg PO QHS urine 11/27/20 [History Last Taken 01/14/21] pantoprazole 40 mg tablet,delayed release (Protonix) 40 mg PO BID #60 tabs 01/15/21 [Rx Last Taken 01/16/21] amlodipine 10 mg tablet 10 mg PO DAILY BP 01/16/21 [History Last Taken 01/16/21] bupropion HCl 150 mg 24 hr tablet, extended release 150 mg PO BID 01/16/21 [History Last Taken 01/16/21] metformin 500 mg tablet 500 mg PO BID DM 01/16/21 [History Last Taken 01/16/21] sucralfate 1 gram tablet 1 g PO ACHS STOMACH 01/16/21 [History Last Taken 01/16/21] insulin degludec 100 unit/mL (3 mL) subcutaneous pen (Tresiba FlexTouch U-100 insulin) 40 unit (0.4 mL) subcut QHS diabetes #0 mL 01/23/21 [Rx Last Taken Unknown] lactulose 20 gram/30 mL oral solution 20 g (30 mL) PO DAILY 30 days #900 mL 01/23/21 [Rx Last Taken Unknown] quetiapine 25 mg tablet 25 mg PO BID #60 tabs 01/23/21 [Rx Last Taken Unknown] amitriptyline 50 mg tablet 50 mg PO QHS 10/23/21 [History Last Taken Unknown] dupilumab 200 mg/1.14 mL subcutaneous pen injector (Dupixent) 300 mg subcut QWEEK 10/23/21 [History Last Taken Unknown] leflunomide 10 mg tablet (Arava) 10 mg PO DAILY 10/23/21 [History Last Taken Unknown] lisinopril 10 mg tablet 10 mg PO DAILY 10/23/21 [History Last Taken Unknown] amoxicillin 875 mg-potassium clavulanate 125 mg tablet 1 tab PO BID 14 days #28 tabs 12/18/21 [Rx Last Taken Unknown] meclizine 25 mg tablet 25 mg PO DAILY PRN dizziness #20 tabs 04/10/22 [Rx Last Taken Unknown] amitriptyline 75 mg tablet 75 mg PO QHS cholesterol 03/18/23 [History Last Taken Unknown] amoxicillin 875 mg-potassium clavulanate 125 mg tablet 1 tab PO BID #20 tabs 03/18/23 [Rx Last Taken Unknown] ascorbic acid (vitamin C) 500 mg chewable tablet (Acerola C) 500 mg PO DAILY 03/18/23 [History Last Taken Unknown] bupropion HCl 75 mg tablet 150 mg PO BID 03/18/23 [History Last Taken Unknown] dicyclomine 10 mg capsule 10 mg PO Q12H PRN STOMAC CRAMPS 03/18/23 [History Last Taken Unknown] fluticasone propionate 50 mcg/actuation nasal spray,suspension 1 spray intranasal DAILY PRN CONGESTION 03/18/23 [History Last Taken Unknown] insulin aspart U-100 See Rx Instructions subcut .COMPLEX 03/18/23 [History Last Taken Unknown] insulin aspart U-100 100 unit/mL (3 mL) subcutaneous pen (Novolog FlexPen U-100 Insulin aspart) subcut ACHS 03/18/23 [History Last Taken Unknown] melatonin 10 mg capsule 10 mg PO QHS 03/18/23 [History Last Taken Unknown] metformin 1,000 mg tablet 1,000 mg PO BID 03/18/23 [History Last Taken Unknown] multivit,stress formula-zinc tablet (Stress Formula with Zinc tablet) 1 tab PO DAILY 03/18/23 [History Last Taken Unknown] multivitamin,tx-minerals (Super Thera Ankur M tablet) 1 tab PO DAILY 03/18/23 [History Last Taken Unknown] ondansetron 4 mg disintegrating tablet 4 mg PO Q8H PRN PRN Nausea #14 tabs 03/18/23 [Rx Last Taken Unknown] ondansetron HCl 4 mg tablet 4 mg PO Q8H 03/18/23 [History Last Taken Unknown] pregabalin 225 mg capsule 225 mg PO TID 03/18/23 [History Last Taken Unknown] sertraline 100 mg tablet 100 mg PO QHS 03/18/23 [History Last Taken Unknown] sertraline 25 mg tablet 25 mg PO QHS 03/18/23 [History Last Taken Unknown] Allergy/AdvReac Type Severity Reaction Status Date / Time No Known Allergies Allergy Verified 03/18/23 20:02 Family History Mother Diabetes Father Diabetes Hypertension Social History housing: assisted living facility Smoking Status: Heavy Smoker (>10/day) alcohol intake: never substance use type: does not use ROS ROS ED Constitutional Constitutional ED: Denies chills, fever(s) or sweats Eyes Eyes: Denies blurry vision or change in vision ENT ENT ED: Denies ear pain or sore throat Cardiovascular Cardiovascular: Reports chest pain; Denies palpitations or racing heartbeat Respiratory/Chest Respiratory/Chest: Denies cough, dyspnea or sputum Gastrointestinal Gastrointestinal: Reports abdominal pain, nausea and vomiting; Denies constipation or diarrhea Genitourinary Genitourinary ED: Denies dysuria, hematuria or urinary frequency Musculoskeletal Musculoskeletal: Denies arthralgias, myalgias or neck pain Integumentary Denies abscess, Abrasions or rash Neurologic Neurologic: Denies headache(s), paresthesias or weakness Psychiatric Psychiatric: Denies anxiety, depression, suicidal ideation or suicidal thoughts Endocrine Endocrinology: Denies polydipsia or polyuria EXAM Physical Exam Const Vital Signs: 03/18/23 20:02 03/18/23 20:02 03/18/23 22:02 Temperature 97.1 F L Temperature Source Temporal Pulse Rate 77 88 Respiratory Rate 16 16 Blood Pressure 175/87 H 176/86 H Blood Pressure Mean 116 116 Pulse Ox 100 99 Oxygen Delivery Method Room Air Room Air 03/18/23 22:22 03/18/23 22:26 03/18/23 22:46 Temperature Temperature Source Pulse Rate 95 95 100 Respiratory Rate 16 20 H 17 Blood Pressure 188/93 H 161/86 H 155/83 H Blood Pressure Mean 124 111 107 Pulse Ox 100 99 97 Oxygen Delivery Method Room Air Room Air Positive well nourished General Appearance ED: Negative for pallor HEENT Reports dry mucous membranes trauma Mouth ED: Yes dry mucous membranes Mouth: dry mucous membranes Eyes PERRL and EOMs intact bilaterally Chest Wall inspection of chest normal Resp normal respiratory effort and clear to auscultation bilaterally Auscultation: Negative for rales, rhonchi or wheezes Cardio regular rate GI GI Narrative: Usually tender. Palpation: Negative for guarding, splenomegaly or mass Extremity normal to inspection Neuro oriented x3 and CN's II-XII intact bilaterally Sensorium / Orientation: alert Motor Exam: strength 5/5 throughout Psych mental status grossly normal Skin no rashes or lesions noted General Skin Exam: Negative for jaundice or pallor MDM MDM MDM Narrative Medical decision making narrative: Patient presenting with multiple complaints. Chest pain differential includes acute coronary syndrome, pneumonia, costochondritis, GERD. I did consider PE however patient is PERC negative. Abdominal pain differential includes gastritis, colitis, diverticulitis, UTI, pyelonephritis, dehydration, electrolyte abnormalities, anemia, GI bleed. CBC will be obtained to assess white blood cell count, hemoglobin, platelets. CMP to assess liver function, renal function, electrolytes. Lipase to assess for pancreatitis. Urinalysis toassess for UTI. Chest x-ray to rule out pneumonia. EKG and high-sensitivity troponin assess for ischemia/dysrhythmia. Patient medicated with morphine and Zofran. At this point he tells me he is developed a headache today. Since he is already medicated I will reevaluate him and see if it improved. Patient was also given IV fluids. CBC shows normal white blood cell count 9.8. Hemoglobin stable at 12.4. Platelets are normal at 303. Renal function electrolytes within normal limits. Glucose is elevated to 38 without anion gap. LFTs are normal. High-sensitivity troponin is 6. EKG on my interpretation shows a normal sinus rhythm with a ventricular rate of 72 bpm without sign of ischemia my interpretation. Chest x-ray on my interpretation shows no acute process. The radiologist reads this as atelectasis versus infiltrate. He did have a CT of the abdomen pelvis with IV contrast which was negative for acute intra-abdominal abnormalities and the CT does not show any evidence of pneumonia on the lung bases where the x-ray is interpreted as atelectasis versus infiltrates. He is not having cough or shortness of breath. He did ask for something more for his headache and he was given Reglan, Benadryl. Urinalysis negative for infection. CT brain was obtained due to his headache and does not show any acute cranial abnormalities. This does show evidence of dental caries and possible dental abscess. I went to reevaluate the patient and he does have poordentition. He does state that he keeps losing teeth. Given this I will place him on Augmentin and given a dental referral sheet I will also give him Zofran for his facility. These were filled to the ER. To be discharged back to his facility. Impression: 1. Nausea/vomiting 2. Chest pain 3. Abdominal pain 4. Dental abscess Lab Data Attestation: I reviewed the patient's lab results. Labs: Laboratory Results - last 24 hr 03/18/23 03/18/23 20:05 21:45 WBC 9.8 RBC 5.17 Hgb 12.4 L Hct 36.5 L MCV 70.6 L MCH 24.0 L MCHC 34.0 RDW Std Deviation 48.9 H RDW Coeff of Nathalie 20.0 H Plt Count 303 MPV 10.0 Immature Gran % (Auto) 0.300 Neut % (Auto) 63.1 Lymph % (Auto) 27.7 [place] % (Auto) 7.7 Eos % (Auto) 0.6 Baso % (Auto) 0.6 Absolute Neuts (auto) 6.2 Absolute Lymphs (auto) 2.72 Nucleated RBC % 0 Sodium 139 Potassium 4.0 Chloride 105 Carbon Dioxide 25.0 Anion Gap 9 BUN 15 Creatinine 1.14 Estim Creat Clear Calc 72.35 Est GFR (MDRD) Af Amer 85 Est GFR (MDRD) Non-Af 70 BUN/Creatinine Ratio 13.2 Glucose 238 H Calcium 9.1 Total Bilirubin 0.40 AST 10 L ALT 22 Alkaline Phosphatase 131 H Troponin I High Sens 6 Total Protein 8.5 H Albumin 3.7 Globulin 4.8 H Albumin/Globulin Ratio 0.8 L Lipase 20 Urine Color Yellow Urine Clarity Clear Urine pH 6.5 Ur Specific [place] 1.010 Urine Protein Negative Urine Glucose (UA) 50 H Urine Ketones 150 A* Urine Occult Blood Negative Urine Nitrite Negative Urine Bilirubin Negative Urine Urobilinogen Normal Ur Leukocyte Esterase Negative Urine RBC 0 SEEN Urine WBC 0 SEEN Ur Squamous Epith Cells 0 SEEN Urine Bacteria 0 SEEN Urine Mucus 0 SEEN Radiography Diagnostic Testing: Clinical Impression(s) from Imaging Studies Abdomen/Pelvis CT 03/18/23 20:25 IMPRESSION: No acute abdominal abnormality is identified, to include normal appendix and no evidence of obstructing ureteral calculus. Electronically Signed: Jayson Calderon MD at 22:34 EDT , Brain CT 03/18/23 20:25 IMPRESSION: Age-related changes as above, without evidence of acute intracranial hemorrhage in this noncontrast head CT. Bilateral maxillary dental root lucencies consistent with dental root abscess formation. Sinus disease. Electronically Signed: Jayson Calderon MD at 22:27 EDT , Chest X-Ray 03/18/23 20:58 IMPRESSION: Low lung volumes with hazy patchy bibasilar airspace disease, to include atelectasis versus pneumonia. Recommend follow-up to resolution. Electronically Signed: Jayson Calderon MD at 21:43 EDT , Discharge Plan Triage Chief Complaint: Nausea/Vomiting ED Provider: Kurtis Cross Dx/Rx/DC Orders Instructions: Self-Care for Headaches, ED Dental Abscess, ED Vomiting (Adult), ED Abdominal Pain Unkn Cause Male... Prescriptions: New ondansetron 4 mg tablet,disintegrating 4 mg PO Q8H PRN PRN (Reason: Nausea) Qty: 14 0RF amoxicillin-pot clavulanate 875-125 mg tablet 1 tab PO BID Qty: 20 0RF No Action buspirone 5 mg Tablet 5 mg PO TID atorvastatin 80 mg Tablet 80 mg PO QHS tamsulosin 0.4 mg Capsule 0.4 mg PO QHS ferrous sulfate 325 mg (65 mg iron) Tablet 325 mg PO DAILY aspirin 81 mg Tablet,Chewable 81 mg PO DAILY sertraline 50 mg Tablet 75 mg PO DAILY insulin lispro 100 unit/mL Cartridge See Protocol subcut TID Protocol: 6. Sliding Scale Insulin Custom Dose/Route: Number of Units Condition: 0-150 Dose/Route: 0 Condition: 151-200 Dose/Route: 2 Condition: 201-250 Dose/Route: 4 Condition: 251-300 Dose/Route: 6 Condition: 301-350 Dose/Route: 8 Condition: 351-400 Dose/Route: 10 Protocol Text: Custom Sliding Scale ezetimibe 10 mg Tablet 10 mg PO DAILY metoprolol tartrate 25 mg Tablet 25 mg PO BID pregabalin 200 mg Capsule 200 mg PO TID cholecalciferol (vitamin D3) [Vitamin D3] 50 mcg (2,000 unit) Tablet 50 mcg PO DAILY omega 6-kva-arw-fish oil [Fish Oil] 1,000 mg (120 mg-180 mg) Capsule 1 cap PO BID duloxetine 60 mg Capsule, Delayed Rel Sprinkle 60 mg PO QHS mecobalamin (vitamin B12) [B12 Active] 1,000 mcg Tablet,Chewable 1,000 mcg PO DAILY pantoprazole [Protonix] 40 mg tablet,delayed release (DR/EC) 40 mg PO BID Qty: 60 0RF metformin 500 mg Tablet 500 mg PO BID bupropion HCl 150 mg Tablet Extended Release 24 Hr 150 mg PO BID sucralfate 1 gram tablet 1 g PO ACHS amlodipine 10 mg tablet 10 mg PO DAILY quetiapine 25 mg Tablet 25 mg PO BID Qty: 60 0RF lactulose 20 gram/30 mL Solution 20 g PO DAILY 30 Days Qty: 900 0RF insulin degludec [Tresiba FlexTouch U-100] 100 unit/mL (3 mL) insulin pen 40 unit SUBCUT QHS Qty: 0 0RF leflunomide [Arava] 10 mg Tablet 10 mg PO DAILY lisinopril 10 mg Tablet 10 mg PO DAILY Dupixent Pen 200 mg/1.14 mL Pen Injector 300 mg SUBCUT QWEEK amitriptyline 50 mg Tablet 50 mg PO QHS amoxicillin-pot clavulanate 875-125 mg tablet 1 tab PO BID 14 Days Qty: 28 0RF meclizine 25 mg tablet 25 mg PO DAILY PRN (Reason: dizziness) Qty: 20 0RF insulin aspart U-100 [Novolog FlexPen U-100 Insulin] 100 unit/mL (3 mL) insulin pen SUBCUT ACHS Rx Instructions: 8 units subcutaneously daily; every morning at breakfast 4 units subcutaneously daily after lunch and dinner insulin aspart U-100 [Novolog FlexPen U-100 Insulin] See Rx Instructions subcut .COMPLEX Rx Instructions: subcutaneously; sliding scale amitriptyline 75 mg tablet 75 mg PO QHS bupropion HCl 75 mg tablet 150 mg PO BID metformin 1,000 mg tablet 1,000 mg PO BID Rx Instructions: with meals pregabalin 225 mg capsule 225 mg PO TID ascorbic acid (vitamin C) [Acerola C] 500 mg tablet,chewable 500 mg PO DAILY Super Thera Ankur M Tablet 1 tab PO DAILY Stress Formula with Zinc Tablet 1 tab PO DAILY sertraline 100 mg tablet 100 mg PO QHS sertraline 25 mg tablet 25 mg PO QHS melatonin 10 mg capsule 10 mg PO QHS dicyclomine 10 mg capsule 10 mg PO Q12H PRN (Reason: STOMAC CRAMPS) fluticasone propionate 50 mcg/actuation spray,suspension 1 spray INTRANASAL DAILY PRN ondansetron HCl 4 mg tablet 4 mg PO Q8H Primary Care Provider: Rachel Chery Referrals: Rachel Chery MD [Primary Care Provider] - Disposition Disposition: Home, Self Care What to do if you have Problems For any increased pain, shortness of breath, bleeding, nausea or vomiting, chestpain, or any unexpected problems, contact your Primary Care Provider. Call [facility] ([phone]) or report to the closest Emergency Room. Call 911 if necessary. 03/18/232307 <Electronically signed by Kurtis Cross DO> Cosigner Signature (if applicable): CC: Dr. Rachel Chery MD ~ Signed [facility] Work Phone: [phone]) 783-642110-12-2023 Instructions* Patient Instructions* Mike Candelario APRN.UNATTENDED GROUND SENSOR SPECIALIST - 02/25/2023 2:33 PM EDT Check with your providers at [facility] and your insurance regarding your replacement wheelchair. You previously reported that [facility] did not take your insurance so you may need to find out where you can get the replacement from. documented in [facility] History of Present illness Narrative* Mike Candelario APRN.CNS - 02/25/2023 1:26 PM EDT SUBJECTIVE: Pneumococcal Vaccine(1 - PCV) Never done Urine Albumin:Creatinine Ratio Never done Dilated Retinal Exam Never done DTaP,Tdap,Td Vaccine(1 - Tdap) Never done Shingrix Vaccine(1 of 2) Never done Colorectal Cancer Screening Never done Lung Cancer Screening Never done Hepatitis B Vaccine(2 of 3 - 19+ 3-dose series) due on 02/27/2022 Influenza Vaccine(1) due on 01/15/2023 Covid-19 Vaccine( season) due on 01/15/2023 LDL Cholesterol due on 01/30/2023 HPI Berta Jaramillo is a 57 year old male. PMH significant for ACTIVE PROBLEM LIST Neuropathy Essential Hypertension Diabetes Mellitus (Hcc) Depression, Recurrent (Hcc) Atopic Eczema History of Rheumatoid Arthritis Rheumatoid Arthritis, Involving Unspecified Site, Unspecified Whether Rheumatoid Factor Present (Hcc) HPI excerpted from previous visits: Presents today to establish care with Rachel Chery MD No prior CC visits. Previous PCP: Prosper Guzmán,M1 ARMOR CREWMAN [address] [facility] [address] WILD [place], EXTENSION PROFESSOR-C [address] [place] [address] States Wild was coming to his facility - assisted living in [place]. Was not a good match so changing providers. States she stopped seeing him when he changed to . Last seen: September 2021 Labwork: Jul 2021 ER/Hospitalization: Dec 2020 [facility] vomiting, ANDRE Outside records: medications only; no medical records Pain management Dr Rosa for peripheral neuropathy. Taking belbuca and pregabalin. Belbuca per Dr Rosa. Pregaballin per Wild [place]. States he was seen by winch runner in [facility], does not recall who, for RA. Has seen a bacteriology research assistant, but not currently. States billing concern. He reports interested in wheelchair replacement. Has not yet been able to accomplish this. Order previously sent to [employer] but stated was not covered. He reports wounds are healed, has been having someone come in weekly at his current facility. Has primary provider at his facility. Patient's last HgA1C was Hemoglobin A1C (%) Date Value 10/22/2022 7.2 01/30/2022 7.4 ) Hyperlipidemia. Mr. Jaramillo reports doing well on current therapy . His most recent lipid panels are: Cholesterol, Total (mg/dL) Date Value 01/30/2022 72 HDL Cholesterol (mg/dL) Date Value 01/30/2022 26 LDL Cholesterol (mg/dL) Date Value 01/30/2022 20 Triglyceride (mg/dL) Date Value 01/30/2022 129 HTN: Without report of headache, chest pain, palpitations, dyspnea, peripheral edema, orthopnea, fatigue, and PND. Last 14 Encounter BP Readings: Date: BP: 02/25/2023 101/66 11/24/2022 108/60 11/11/2022 118/58 10/23/2022 101/58 10/22/2022 112/60 05/27/2022 112/64 04/24/2022 102/52 04/14/2022 104/60 01/30/2022 110/60 GERD: no current complaints States little mobility, primarily sits in scooter due to peripheral neuropathy which is aggravated by walking. Can walk short distances but avoids due to pain. Review of Systems Constitutional: Negative. Musculoskeletal: Positive for arthralgias, back pain and gait problem. Neurological: Positive for numbness. Objective BP 101/66 Pulse 79 Resp 16 Physical Exam Vitals and nursing note reviewed. Constitutional: Appearance: Normal appearance. HENT: Head: Normocephalic and atraumatic. Eyes: Conjunctiva/sclera: Conjunctivae normal. Neck: Thyroid: No thyromegaly. Vascular: Normal carotid pulses. No JVD. Cardiovascular: Rate and Rhythm: Normal rate and regular rhythm. Heart sounds: Normal heart sounds. Pulmonary: Effort: Pulmonary effort is normal. Breath sounds: Normal breath sounds. Abdominal: General: Bowel sounds are normal. Palpations: Abdomen is soft. Skin: General: Skin is warm and dry. Comments: Wound right lateral heel ~1 diameter, pink wound base, small amount of yellow eschar central portion, Left lateral heel - pin dot open are, pink wound base. Neurological: General: No focal deficit present. Mental Status: He is alert. ALLERGIES No Known Allergies Medications albuterol HFA (PROVENTIL HFA, VENTOLIN HFA) 90 mcg/actuation inhaler Inhale 2 Puffs as instructed every 4 hours as needed for wheezing/shortness of breath. amitriptyline (ELAVIL) 75 mg tablet Take 1 tablet by mouth daily at bedtime. amLODIPine (NORVASC) 10 mg tablet Take 1 tablet by mouth once daily. aspirin 81 mg cap Take by mouth once daily. atorvastatin (LIPITOR) 80 mg tablet Take 1 tablet by mouth once daily. blood sugar diagnostic (BLOOD GLUCOSE TEST) test strip Test blood sugar(s) 4 times daily and PRN. Dx: Type 2 DM - Controlled E11.9 Insulin: Yes Blood-Glucose Meter,Continuous (DEXCOM G6 COTTON WEIGHER) misc Use to check blood sugar at least four (4)times daily. Blood-Glucose Sensor (DEXCOM G6 SENSOR) kimberly Apply new sensor every ten (10) days to abdomen. Blood-Glucose Transmitter (DEXCOM G6 TRANSMITTER) kimberly Apply new transmitter every 90 days. Clean transmitter with an alcohol swab with each sensor change. buPROPion SR (ZYBAN SR; WELLBUTRIN SR) 150 mg 12 hr tablet Take 1 tablet by mouth twice daily. busPIRone (BUSPAR) 5 mg tablet Take 1 tablet by mouth three times daily. Cholecalciferol, Vitamin D3, 50 mcg (2,000 unit) cap Take by mouth. collagenase (SANTYL) ointment Apply to affected area once daily. DULoxetine (CYMBALTA) 60 mg capsule Take 1 capsule by mouth once daily. dupilumab (DUPIXENT PEN) 300 mg/2 mL pen Inject subcutaneously every 2 weeks. ezetimibe (ZETIA) 10 mg tablet Take 1 tablet by mouth once daily. Gauze Bandage (GAUZE ROLL) 2 X 2 -yard bndg Apply 1 application to affected area once daily. Gauze Bandage 4 X 4 bndg Apply 1 application to affected area once daily. insulin aspart U-100 (NOVOLOG FLEXPEN U-100 INSULIN) 100 unit/mL (3 mL) Inject subcutaneously: 8 units breakfast, 4 units lunch, 4 units dinner, 2 units with 8 pm snack (if eating) PLUS Sliding dxehs209=5, 151-200-1 units, 201-250=2 units, 251-300=3 units, 301-350=4 units, 351-400=5 units based onpre meal blood sugar only as needed. insulin needles, DISPOSABLE, (ULTICARE PEN NEEDLE) 31 gauge x 5/16 Inject 1 Each subcutaneously asdirected. ketoconazole (NIZORAL) 2 % shampoo Apply to affected area two times a week. Apply to scalp; lather;rinse off after 5 minutes Lancets lancets Test blood sugar(s) 1 times daily and as needed. Dx: Type 2 DM - Controlled E11.9 Insulin: No Lancets lancets Test blood sugar(s) 4 times daily and prn. Dx: Type 2 DM - Controlled E11.9 Insulin: Yes leflunomide (ARAVA) 10 mg tablet Take 1 tablet by mouth once daily. lisinopril (ZESTRIL) 10 mg tablet Take 1 tablet by mouth once daily. meclizine (ANTIVERT) 25 mg tab Take 1 tablet by mouth every 6 hours as needed (dizziness). metFORMIN (GLUCOPHAGE) 1,000 mg tablet Take 1 tablet by mouth twice daily with meals. metoprolol tartrate, short acting, (LOPRESSOR) 25 mg tablet Take 1 tablet by mouth twice daily. pantoprazole DR (PROTONIX) 40 mg tablet Take 1 tablet by mouth once daily. pen needle, diabetic, safety 31 gauge x 5/16 ndle Use as directed with insulin pen Pregabalin (LYRICA) 225 mg capsule Take 1 capsule by mouth three times daily for 90 days. QUEtiapine (SEROQUEL) 25 mg tablet Take 1 tablet by mouth twice daily. sertraline (ZOLOFT) 25 mg tablet Take 1 tablet by mouth once daily. Take this in addition to 50 mg for a total of 75 mg per day sertraline (ZOLOFT) 50 mg tablet Take 1.5 tablets by mouth once daily. To equal 75 mg daily. sucralfate (CARAFATE) 1 gram tablet Take 1 tablet by mouth four times daily. tamsulosin (FLOMAX) 0.4 mg Take 2 capsules by mouth once daily. TRESIBA FLEXTOUCH U-100 100 unit/mL (3 mL) injection pen Inject 40 Units subcutaneously daily at bedtime. triamcinolone acetonide (KENALOG) 0.1 % cream Apply 1 application to affected area twice daily. Apply sparingly to area for rash/itching. Once rash on hands improves, go to treating 2 day per week PAST MEDICAL HISTORY Diagnosis Date Atopic eczema Chronic anemia Depression Depression Diabetes mellitus (HCC) Essential hypertension Generalized anxiety disorder Hypercholesterolemia Neuropathy Social History Tobacco Use Smoking status: Every Day Packs/day: 1.00 Years: 44.00 Additional pack years: 0.00 Total pack years: 44.00 Types: Cigarettes Smokeless tobacco: Never Vaping Use Vaping Use: Never used Substance Use Topics Alcohol use: Never Drug use: Never Component Latest Ref Rng & Units 01/30/2022 04/24/2022 WBC 3.70 - 11.00 k/uL 8.12 RBC 4.20 - 6.00 m/uL 4.27 Hemoglobin 13.0 - 17.0 g/dL 11.0 (L) Hematocrit 39.0 - 51.0 % 32.4 (L) MCV 80.0 - 100.0 fL 75.9 (L) MCH 26.0 - 34.0 pg 25.8 (L) MCHC 30.5 - 36.0 g/dL 34.0 RDW-CV 11.5 - 15.0 % 19.0 (H) Platelet Count 150 - 400 k/uL 248 MPV 9.0 - 12.7 fL 10.8 Neut% % 57.3 Abs Neut (ANC) 1.45 - 7.50 k/uL 4.66 Lymph% % 29.7 Abs Lymph 1.00 - 4.00 k/uL 2.41 [place]% % 6.7 Abs [place] <0.87 k/uL 0.54 Eosin% % 5.2 Abs Eosin <0.46 k/uL 0.42 Baso% % 0.9 Abs Baso <0.11 k/uL 0.07 Immature Gran % % 0.2 IMMATURE GRANS (ABS) <0.10 k/uL <0.03 NRBC /100 WBC 0.0 Absolute nRBC <0.01 k/uL <0.01 DTYPE Auto Protein, Total 6.3 - 8.0 g/dL 7.1 Albumin 3.9 - 4.9 g/dL 4.0 Calcium 8.5 - 10.2 mg/dL 9.0 9.0 Bilirubin, Total 0.2 - 1.3 mg/dL 0.2 Alkaline Phosphatase 38 - 113 U/L 141 (H) AST 14 - 40 U/L 13 (L) ALT 10 - 54 U/L 14 Glucose 74 - 99 mg/dL 169 (H) 204 (H) BUN 9 - 24 mg/dL 11 15 Creatinine 0.73 - 1.22 mg/dL 0.94 1.02 Sodium 136 - 144 mmol/L 139 138 Potassium 3.7 - 5.1 mmol/L 5.1 5.3 (H) Chloride 97 - 105 mmol/L 103 104 CO2 22 - 30 mmol/L 27 24 Anion Gap 9 - 18 mmol/L 9 10 eGFR >=60 mL/min/1.73m 96 87 Cholesterol, Total <200 mg/dL 72 Triglyceride <150 mg/dL 129 HDL Cholesterol >39 mg/dL 26 (L) Non HDL Cholesterol <130 mg/dL 46 Fasting Time hrs 12 VLDL Cholesterol <30 mg/dL 26 TC:HDL Ratio <5.10 2.77 LDL Cholesterol <100 mg/dL 20 LDL:HDL Ratio <2.54 0.77 HIV 12 Combo (Ag/Ab) Nonreactive Nonreactive HIV 1/2 Ab HIV Interpretation Hemoglobin A1C 4.3 - 5.6 % 7.4 (H) Estimated Average Glucose mg/dL 166 Hep C Antibody IA Negative Negative PSA Screening <2.60 ng/mL 0.10 ASSESSMENT/PLAN: 1. Essential hypertension - ICD9: 401.9, ICD10: I10 (primary diagnosis) controlled - Continue current medications - Encouraged sodium restriction, DASH or Mediterranean diet 3. Encounter for screening for lung cancer - ICD9: V76.0, ICD10: Z12.2 - CONSULT LUNG CANCER SCREENING CLINIC 4. Encounter for immunization - ICD9: V03.89, ICD10: Z23 - INFLUENZA VACCINE, AGE 6 MO - 64 YR, QUADRIVALENT (AFLURIA, FLULAVAL, FLUZONE) - Triplify COVID-19 VACCINE (2022- SEASON) AGE 12+ YR 5. Diabetes mellitus (HCC) - ICD9: 250.00, ICD10: E11.9 - LIPID PANEL BASIC 6. Rheumatoid arthritis, involving unspecified site, unspecified whether rheumatoid factor present (HCC) - ICD9: 714.0, ICD10: M06.9 7. Neuropathy - ICD9: 355.9, ICD10: G62.9 He reports still needing replacement wheelchair, previous DME orders were sent to was not covered by his insurance. He is not sure who his DME provider is. Recommend he check into this and let us know if he needs us to follow-up otherwise can be managed by providers at [facility]. Mike Candelario APRN.UNATTENDED GROUND SENSOR SPECIALIST . Medical Decision Making: Problems: Moderate: 2+ stable chronic illnesses Risk: Moderate: Drug management Medical Decision Making Level: 4 - Moderate documented in this encounter[facility]-13-[facility]23 Miscellaneous Notes* Telephone Encounter - Angelic Toro LPN - 01/27/2023 2:45 PM EDT From November encounter pt was admitted to [facility] and called facility today. He is being followed by their provider while he is there. This info was relayed to [facility]. * Telephone Encounter - Aure Lara - 01/27/2023 12:53 PM EDT [employer] is calling on behalf of the patient. They are going to fax a DME request form for the electric wheelchair. It is to be completed by a clinical staff care team for this patient. The completed fax is to be faxed to [facility] at [phone]. It does not need to be faxed back to [facility]driguez. Please review and advise. Aure Lara documented in this encounterW[facility]08-03-2023 Miscellaneous Notes* Telephone Encounter - Layla Horner LPN - 12/17/2022 7:55 AM EDT Prescription below did not go thru to the pharmacy. Please resend. Layla Horner LPN documented in this encounterW[facility]07-28-2023 Miscellaneous Notes* Telephone Encounter - Alejandra Montalvo LPN - 12/11/2022 3:48 PM EDT Prachi aware of same. Patient was transferred to [facility] today. Copy of order was faxed to [facility] also. * Telephone Encounter - Teresa Griffin APRN.CNP - 12/11/2022 3:29 PM EDT Order signed, please notify Prachi once sent. Thanks! * Telephone Encounter - Shania Blakely RN - 12/11/2022 11:38 AM EDT Patient calls to let provider know that he is having trouble getting into a skilled facility. Patient said his insurance doesn't cover [facility]. Spoke to Prachi at [facility] and she reports that every place they have sent the referral his insurance has declined or there isn't an available bed. Prachi has instructed the patient to contact insurance company to find out what facilities they willcover. Prachi asking for an order for heel boots for patient in the meantime to maybe prevent the wounds from getting worse. Pended order with diagnosis. Please send to [facility] at [phone]. Call Prachi at [phone] once order sent. Shania Blakely RN [facility] History and physical note Author Lior Salcido [facility] December 04, 2022 1:03pm Note Date/Time December 03, 2022 12:3 1pm [facility] [address] [place], [place] [address] [address] H&P Exam - Wound Care 12/03/22 1223 MR#: [id number] Acct: [id number] Name: BERTA JARAMILLO Rep #:[id number] : 1965 57 From: Lior delgadillo MD PCP: Dr. Rachel Chery MD Status:RE G RCR Location: History of Present Illness Date of Service: 12/03/22 Chief Complaint: Left Heel Ulcer History of Wound: Mr. Jaramillo is a 57yo who presents to the wound center due to bilateral heel ulcers and a left buttock ulcer. Said to have been noted a monthago. Was seen by his PCP and Santyl has been applied to the bilateral heel ulcers but he has been using [id number] products for his buttock ulcer. No significant improvement so he was referred here. History of diabetes mellitus type 2, he is unsure of his last A1c but states that he recently had labs done by his PCP. Also history of tobacco use, continues to smoke. Sits most of the time in his wheelchair. [facility] Medical History (Updated 12/03/22 @ 12:[address] Lior Salcido MD) Anxiety and depression Bipolar disorder Chronic anemia Decubitus ulcer of left buttock, stage 2 Decubitus ulcer of left buttock, stage 3 Delusional disorder Diabetes Diabetic ulcer of left heel Diabetic ulcer of right heel HTN (hypertension) Hypercholesterolemia Morbid obesity Neuropathy Rheumatoid arthritis RUQ abdominal pain Tobacco use Type 2 diabetes mellitus Uncontrolled type 2 diabetes mellitus with hyperosmolar nonketotic hyperglycemia Home Medications aspirin 81 mg chewable tablet 81 mg PO DAILY heart 11/27/20 [History Last Taken 01/16/21] atorvastatin 80 mg tablet 80 mg PO QHS cholesterol 11/27/20 [History Last Taken 01/14/21] buspirone 5 mg tablet 5 mg PO BID anxiety 11/27/20 [History Last Taken 01/16/21] cholecalciferol (vitamin D3) 50 mcg (2,000 unit) tablet (Vitamin D3) 50 mcg PO DAILY vitamin 11/27/20 [History Last Taken 01/16/21] duloxetine 60 mg capsule,delayed release sprinkle 60 mg PO QHS depression 11/27/20 [History Last Taken Unknown] ezetimibe 10 mg tablet 10 mg PO DAILY cholesterol 11/27/20 [History Last Taken 01/16/21] ferrous sulfate 325 mg (65 mg iron) tablet 325 mg PO DAILY supplement 11/27/20 [History Last Taken 01/16/21] insulin lispro 100 unit/mL subcutaneous cartridge See Protocol subcut TID diabetes 11/27/20 [History Last Taken 01/16/21] mecobalamin (vitamin B12) 1,000 mcg chewable tablet (B12 Active) 1,000 mcg PO DAILY vitamin 11/27/20 [History Last Taken 01/16/21] metoprolol tartrate 25 mg tablet 25 mg PO BID htn 11/27/20 [History Last Taken 01/16/21] omega [id number]-mki-pqd-fish oil 1,000 mg (120 mg-180 mg) capsule (Fish Oil) 1 cap PO BID supplement 11/27/20 [History Last Taken 01/16/21] pregabalin 200 mg capsule 200 mg PO TID nerve pill 11/27/20 [History Last Taken 01/16/21] sertraline 50 mg tablet 50 mg PO DAILY depression 11/27/20 [History Last Taken 01/15/21] tamsulosin 0.4 mg capsule 0.4 mg PO QHS urine 11/27/20 [History Last Taken 01/14/21] pantoprazole 40 mg tablet,delayed release (Protonix) 40 mg PO BID #60 tabs 01/15/21 [Rx Last Taken 01/16/21] amlodipine 10 mg tablet 10 mg PO DAILY BP 01/16/21 [History Last Taken 01/16/21] bupropion HCl 150 mg 24 hr tablet, extended release 150 mg PO BID 01/16/21 [History Last Taken 01/16/21] metformin 500 mg tablet 500 mg PO BID DM 01/16/21 [History Last Taken 01/16/21] sucralfate 1 gram tablet 1 g PO ACHS STOMACH 01/16/21 [History Last Taken 01/16/21] insulin degludec 100 unit/mL (3 mL) subcutaneous pen (Tresiba FlexTouch U-100 insulin) 40 unit (0.4 mL) subcut QHS diabetes #0 mL 01/23/21 [Rx Last Taken Unknown] lactulose 20 gram/30 mL oral solution 20 g (30 mL) PO DAILY 30 days #900 mL 01/23/21 [Rx Last Taken Unknown] quetiapine 25 mg tablet 25 mg PO BID #60 tabs 01/23/21 [Rx Last Taken Unknown] amitriptyline 50 mg tablet 50 mg PO QHS 10/23/21 [History Last Taken Unknown] dupilumab 200 mg/1.14 mL subcutaneous pen injector (Dupixent) 300 mg subcut QWEEK 10/23/21 [History Last Taken Unknown] leflunomide 10 mg tablet (Arava) 10 mg PO DAILY 10/23/21 [History Last Taken Unknown] lisinopril 10 mg tablet 10 mg PO DAILY 10/23/21 [History Last Taken Unknown] amoxicillin 875 mg-potassium clavulanate 125 mg tablet 1 tab PO BID 14 days #28 tabs 12/18/21 [Rx Last Taken Unknown] meclizine 25 mg tablet 25 mg PO DAILY PRN dizziness #20 tabs 04/10/22 [Rx Last Taken Unknown] Allergy/AdvReac Type Severity Reaction Status Date / Time No Known Allergies Allergy Verified 04/10/22 23:25 Family History (Updated 01/11/21 @ 01:[address] Kanwal Russo MD) Mother Diabetes Father Diabetes Hypertension Social History housing: assisted living facility Smoking Status: Heavy Smoker (>10/day) alcohol intake: never substance use type: does not use ROS Constitutional Constitutional: Denies fatigue, fever(s), frequent falls, headache(s), increasedappetite, lethargy or malaise Eyes Eyes: Denies diplopia, discharge from eye(s), discongugate gaze, exophthalmos, eye pain, floaters, foreign body or halo effect ENT HEENT: Denies dysphagia, foreign body in nose, headache(s), mucositis, nasal congestion, nasal discharge or nasal trauma Cardiovascular Cardiovascular: Denies chest pain with activity, cyanosis, dyspnea at rest, dyspnea on exertion, fatigue, flutter in chest or hypertension Respiratory/Chest Respiratory/Chest: Denies dusky skin, dyspnea, dyspnea on exertion, excessive phlegm production, hemoptysis, hoarseness, inability to speak or nail bed cyanosis Gastrointestinal Gastrointestinal: Denies chewing difficulty, coffee ground emesis, constipation,cramping, diarrhea, dry heaves or dyspepsia Genitourinary Genitourinary: Denies abdominal discomfort, anuria, burning urination, dysuria or flank pain Musculoskeletal Musculoskeletal: Denies arthralgias, atrophy, back pain or deformity Integumentary Integumentary: Denies erythema, furuncle, hirsutism, jaundice or lesions Neurologic Neurologic: Denies abnormal speech, behavior changes, burning sensations, convulsions, disequilibrium or dizziness Psychiatric Psychiatric: Denies abnormal sleep pattern, anhedonia, anxiety, auditory hallucinations, behavioral changes, irritability or memory loss Endocrine Endocrinology: Denies cold intolerance, excessive sweating, fatigue, flushing orheat intolerance Allergic/Immunologic Allergic/Immunologic: Denies lip swelling, tongue swelling, hives, eczemia, wheezing or asthma Vital Signs Vital Signs Vital Signs: 12/03/22 10:21 Temperature 97.5 F L Temperature Source Temporal Pulse Rate 73 Respiratory Rate 18 Blood Pressure 131/76 H Blood Pressure Mean 94 Blood Pressure Source Monitor Blood Pressure Position Semi-Fowlers Blood Pressure Location Left Arm Weight Weight: 238 lb Body Mass Index (BMI) 35.1 Physical Exam Const alert, oriented x3 and no apparent distress General Appearance: cooperative and comfortable HEENT normocephalic, head/scalp atraumatic and hearing grossly normal bilaterally Eyes General Eye: normal appearance of both eyes Neck full ROM General: normal visual inspection Resp normal respiratory effort and normal air movement Effort and Inspection: able to speak in complete sentences Cardio regular rate, regular rhythm, S1 normal heart sound and S2 normal heart sound Extremity General Extremity: edema Skin Wounds: wounds noted Neuro oriented x3, CN's II-XII intact bilaterally and moves all extremities Psych mental status grossly normal, thought process normal and cooperative Debridement Note Debridement Note Wound debrided: Left Heel Wound Grade/Stage: Grade II Type of Debridement: Excisional debridement Anesthesia Used: 5% Lidocaine Gel Depth: Down to and including healthy tissue and in the subcutaneous layer Percentage of wound debrided: 100 Instrument Used: 5mm curette, #15 blade and Forceps Tissue Removed: Slough and devitalized tissue Severity: Fat Layer Exposed Amount of bleeding with debridement: Mild Bleeding Controlled with: Pressure Patient tolerated procedure: Patient tolerated procedure well Post-Debridement Measurements and Additional Note: Post-Debridement Measurements/Treatment YAHAIRA - Nurse 1 - General Ulcer Assessment Start: 12/03/22 09:15 Freq: Status: Active Protocol: SANDRA Activity Type Activity Date Activity User E-sign Co-sign Detail Recorded Client Recorded Date Recorded By Document 12/03/22 10:21 RB [id number] 12/03/22 10:31 RB 12/03/22 10:21 WC - Today's Visit Information Type of service Initial Visit Arrival Mode Wheelchair Transfer Assistance Manual Patient Identification Verified (Name & Yes ) Patient Requires Transmission-Based No Precautions Height and Weight Height 5 ft 9 in Weight 238 lb Weight in Pounds 238.0 lbs Body Mass Index (BMI) 35.1 BMI Classification Obese BSA - Rj 2.22 Vital Signs Temperature (97.8 F-99.1 F) 97.5 F L Temperature Source Temporal Pulse Rate (60-100) 73 Pulse Location Monitor Respiratory Rate (12-18) 18 Respiratory rate source Observation Blood Pressure (90/60-120/80) 131/76 H Blood Pressure Mean 94 Source Monitor Position Semi-Fowlers Blood Pressure Location Left Arm Pain Scale: 0-10 Numeric Is Patient Pain Free? No L heel -Description Aching -Intensity 9 -Duration (hours) Acute -Pain Behavior Withdrawal from Touch -Pain Aggravating Factors ADL's -Alleviating Factors/Interventions Inactivity/ Resting Lower Extremity Assessment/ Foot Assessment/ Toe Nail Assessment Right -Posterior Tibial Palpable Yes -Dorsalis Pedis Palpable Yes -Extremity Color Normal -Hair Growth on Legs No -Hair Growth on Toes No -Temperature of Extremity Warm -Capillary Refill Less than 3 Seconds -Dependent Rubor No -Blanched when Elevated No -Lipodermatosclerosis No -Other Deformity No -Prior Foot Ulcer No -Charcot Joint No -Prior Amputation No -Thick Yes -Discolored Yes -Deformed Yes -Improper Length & Hygeine Yes Left -Posterior Tibial Palpable Yes -Dorsalis Pedis Palpable Yes -Extremity Color Normal -Hair Growth on Legs No -Hair Growth on Toes No -Temperature of Extremity Warm -Capillary Refill Less than 3 Seconds -Dependent Rubor No -Blanched when Elevated No -Lipodermatosclerosis No -Other Deformity No -Prior Foot Ulcer No -Charcot Joint No -Prior Amputation No -Thick Yes -Discolored Yes -Deformed Yes -Improper Length & Hygeine Yes Neuropathy Assessment Feet - Top Side and Bottom <Entered> (a) Communication Assessment Preferred language [place]ut Eligibility Supervisor Required No Able to Read Yes Able to Write Yes Communication Tools None Caregiver Communication Skills No Impairment Impairment Right Hearing Abillity Normal Left Hearing Abillity Normal Visual Assistive Devices Glasses Teaching Assessment Preferences Verbal,Written, Demonstration Barriers to Learning None Readiness To Learn Good Willingness to Engage in Self Management Med Activies Readiness to Engage in Self Management Med Activities Anxiety Level Calm Cooperation Cooperative Perception Coherent Interest in Health Problem Asks Questions Education Importance Acknowledges Need Does Patient Smoke tobacco or other No substances Smoking Status Heavy Smoker (> 10/day) Is Patient Diabetic Yes Functional Assessment Recent Decline in Ability to Perform Ambulation, Transferring Assistive Device With Patient No Culture/Worship/Helper Driver Cultural/Worship Needs that may affect No Treatment Plan Would you allow [facility] to No meet you for the purpose of spiritual/ emotional support? Helper Driver to contact place of lutheran No Teaching: Wound Center *Welcome to the Wound Center -Person Taught Patient -Teaching Method Discussion -Response to teaching Verbalize understanding (a) 1 - + 2 - - YAHAIRA - Nurse 1 - General Ulcer Measurement Start: 12/03/22 09:15 Freq: Status: Active Protocol: Activity Type Activity Date Activity User E-sign Co-sign Detail Recorded Client Recorded Date Recorded By Document 12/03/22 10:21 [id number] 12/03/22 10:31 RB 12/03/22 10:21 Wound Center Nurse 1 9. L buttocks -Combined with other wound No -Current Size (cm) - Length 0.1 -Current Size (cm) - Width 0.1 -Current Size (cm) - Depth 0.1 -Total Square Cm 0.01 -Photo Taken Yes -Tunneling No -Undermining/Tunneling No -Circular Undermining No -Exudate Amt Medium -Exudate Type Serosanguineous -Wound Margin Distinct, Outline Attached -Granulation Amt Medium (34-66%) -Granulation Quality [place] -Slough/Fibrin Yes -Necrosis Amt Medium (34-66%) -Necrotic Tissue Type Adherent Slough -Structure Exposed N/A -Texture (Camila-wound Skin Appearance) Assessed -Moisture (Camila-wound Skin Appearance) Assessed -Color (Camila-wound Skin Appearance) Assessed -Temperature (Camila-wound Skin No Abnormality Appearance) (Pt Warm) -Tenderness on Palpation (Camila-wound No Skin Appearance) -Ulcer Cleansing Wound Cleanser -Foul Odor after Cleansing No -Anesthetic Used 5% Lidocaine Gel 8. R heel -Combined with other wound No -Current Size (cm) - Length 2.4 -Current Size (cm) - Width 1.3 -Current Size (cm) - Depth 0.1 -Total Square Cm 3.12 -Photo Taken Yes -Tunneling No -Undermining/Tunneling No -Circular Undermining No -Exudate Amt Medium -Exudate Type Serosanguineous -Wound Margin Distinct, Outline Attached -Granulation Amt Medium (34-66%) -Granulation Quality [place] -Slough/Fibrin Yes -Necrosis Amt Medium (34-66%) -Necrotic Tissue Type Adherent Slough -Structure Exposed N/A -Texture (Camila-wound Skin Appearance) Assessed, Scarring -Moisture (Camila-wound Skin Appearance) Assessed -Color (Camila-wound Skin Appearance) Assessed -Temperature (Camila-wound Skin No Abnormality Appearance) (Pt Warm) -Tenderness on Palpation (Camila-wound No Skin Appearance) -Ulcer Cleansing Wound Cleanser -Foul Odor after Cleansing No -Anesthetic Used 5% Lidocaine Gel 7. L heel -Combined with other wound No -Current Size (cm) - Length 1.2 -Current Size (cm) - Width 2.6 -Current Size (cm) - Depth 0.1 -Total Square Cm 3.12 -Photo Taken Yes -Tunneling No -Undermining/Tunneling No -Circular Undermining No -Exudate Amt Medium -Exudate Type Serosanguineous -Wound Margin Distinct, Outline Attached -Granulation Amt Medium (34-66%) -Granulation Quality [place] -Slough/Fibrin Yes -Necrosis Amt Medium (34-66%) -Necrotic Tissue Type Adherent Slough -Structure Exposed N/A -Texture (Camila-wound Skin Appearance) Assessed, Scarring -Moisture (Camila-wound Skin Appearance) Assessed -Color (Camila-wound Skin Appearance) Assessed -Temperature (Camila-wound Skin No Abnormality Appearance) (Pt Warm) -Tenderness on Palpation (Camila-wound No Skin Appearance) -Ulcer Cleansing Wound Cleanser -Foul Odor after Cleansing No -Anesthetic Used 5% Lidocaine Gel Lower Limb Edema Present Yes Right Calf (cm) 45 Right Ankle (cm) 27.5 Left Calf (cm) 46 Left Ankle (cm) 28.5 WC - Nurse 2 - General Ulcer CM Notes Start: 12/03/22 09:15 Freq: Status: Active Protocol: Activity Type Activity Date Activity User E-sign Co-sign Detail Recorded Client Recorded Date Recorded By Document 12/03/22 10:51 MW [id number] 12/03/22 11:00 MW 12/03/22 10:51 Wound Center Nurse 2 9. L buttocks -Time 10:52 -Correct Patient Yes -Correct Side, Site, Position Yes -Correct Procedure Yes -Procedure Performed Yes -Type of Procedure Debridement -Clinical Debridement Subcutaneous -Tissue Removed Subcutaneous -Post Debridement (cm) - Length 0.3 -Post Debridement (cm) - Width 0.4 -Post Debridement (cm) - Depth 0.1 -Total Square (Post) (cm) 0.12 -Area of Debridement (cm) - Length 0.3 -Area of Debridement (cm) - Width 0.4 -Total Square (Area) (cm) 0.12 -Tunneling No -Undermining/Tunneling No -Circular Undermining No -Wound/Ulcer Outcome Not Healed -Ulcer Cleansing Rinsed/ Irrigated with Saline -Foul Odor after Cleansing No -Bioengineered Tissue No -Bleeding Controlled with Pressure -Treatment Response Procedure Tolerated Well -Offloading No -Debridement - Subq, 1st 20sq cm Yes 8. R heel -Time 10:53 -Correct Patient Yes -Correct Side, Site, Position Yes -Correct Procedure Yes -Procedure Performed Yes -Type of Procedure Debridement -Clinical Debridement Subcutaneous -Tissue Removed Subcutaneous -Post Debridement (cm) - Length 2.2 -Post Debridement (cm) - Width 1.5 -Post Debridement (cm) - Depth 0.1 -Total Square (Post) (cm) 3.30 -Area of Debridement (cm) - Length 2.2 -Area of Debridement (cm) - Width 1.5 -Total Square (Area) (cm) 3.30 -Tunneling No -Undermining/Tunneling No -Circular Undermining No -Wound/Ulcer Outcome Not Healed -Ulcer Cleansing Rinsed/ Irrigated with Saline -Foul Odor after Cleansing No -Bioengineered Tissue No -Bleeding Controlled with Pressure -Treatment Response Procedure Tolerated Well -Offloading No -Debridement - Subq, 1st 20sq cm No 7. L heel -Time 10:53 -Correct Patient Yes -Correct Side, Site, Position Yes -Correct Procedure Yes -Procedure Performed Yes -Type of Procedure Debridement -Clinical Debridement Subcutaneous -Tissue Removed Subcutaneous -Post Debridement (cm) - Length 3.5 -Post Debridement (cm) - Width 4.5 -Post Debridement (cm) - Depth 0.1 -Total Square (Post) (cm) 15.75 -Area of Debridement (cm) - Length 3.5 -Area of Debridement (cm) - Width 4.5 -Total Square (Area) (cm) 15.75 -Tunneling No -Undermining/Tunneling No -Circular Undermining No -Wound/Ulcer Outcome Not Healed -Ulcer Cleansing Rinsed/ Irrigated with Saline -Foul Odor after Cleansing No -Bioengineered Tissue No -Bleeding Controlled with Pressure -Treatment Response Procedure Tolerated Well -Offloading No -Debridement - Subq, 1st 20sq cm No Pain Scale: 0-10 Numeric Is Patient Pain Free? Yes - Nurse 3 - General Ulcer D/C NN Start: 12/03/22 09:15 Freq: Status: Active Protocol: Activity Type Activity Date Activity User E-sign Co-sign Detail Recorded Client Recorded Date Recorded By Document 12/03/22 11:35 [id number] 12/03/22 11:38 12/03/22 11:35 Wound Care Center Nurse 3 9. L buttocks -Primary Dressing Applied Aquacel Extra, Mepilex Border, NonAdherent Contact Layer -Aquacel Extra 1 -Mepilex Border 1 8. R heel -Primary Dressing Applied NonAdherent Contact Layer -Other Dressing aquacel extra, adaptic, abd kerlix 7. L heel -Primary Dressing Applied NonAdherent Contact Layer -Other Dressing aquacel extra, adaptic, abd, kerlix Right -Tubular Bandage Double Layer -Size of Tubigrip Used Size E -Size E ($) 2 Left -Tubular Bandage Double Layer -Size of Tubigrip Used Size E -Size E ($) 2 Treatment Response Procedure Tolerated Well Pain Scale: 0-10 Numeric Is Patient Pain Free? Yes WC - Visit Discharge Discharge Condition Stable Ambulatory Status Wheelchair Medication Reconcilliation completed & No provided to patient/care provider Clinical Summary of Care Provided Yes Additional Wound Wound debrided: Right Heel Wound Grade/Stage: Grade I Type of Debridement: Excisional debridement Anesthesia Used: 5% Lidocaine Gel Depth: Down to and including healthy tissue and in the subcutaneous layer Percentage of wound debrided: 100 Instrument Used: 5mm curette Tissue Removed: Slough and devitalized tissue Severity: Fat Layer Exposed Amount of bleeding with debridement: Mild Bleeding Controlled with: Pressure Additional Wound Wound debrided: Left Buttock Wound Grade/Stage: Stage II Type of Debridement: Excisional debridement Anesthesia Used: 5% Lidocaine Gel Depth: Down to and including healthy tissue and in the subcutaneous layer Percentage of wound debrided: 100 Instrument Used: 3mm curette Tissue Removed: Slough and devitalized tissue Severity: Fat Layer Exposed Amount of bleeding with debridement: Mild Bleeding Controlled with: Pressure Patient tolerated procedure: Patient tolerated procedure well Charges/Coding Visit Charges Office Visits / Consults: [id number] OV L3 Est Procedures Integumentary [id number]: [id number] Ana María subq tissue 20 sq cm/< Assessment/Plan Assessment/Plan (1) Diabetic ulcer of left heel: CODE(S): E11.621 - Type 2 diabetes mellitus with foot ulcer; L97.429 - Non- pressure chronic ulcer of left heel and midfoot with unspecified severity QUALIFIERS: Diabetes mellitus type: type 2 Non-pressure ulcer stage: with fat layer exposed Qualified Code(s): E11.621 - Type 2 diabetes mellitus with foot ulcer; L97.422 - Non-pressure chronic ulcer of left heel and midfoot with fat layer exposed (2) Diabetic ulcer of right heel: CODE(S): E11.621 - Type 2 diabetes mellitus with foot ulcer; L97.419 - Non- pressure chronic ulcer of right heel and midfoot with unspecified severity QUALIFIERS: Diabetes mellitus type: type 2 Non-pressure ulcer stage: with fat layer exposed Qualified Code(s): E11.621 - Type 2 diabetes mellitus with foot ulcer; L97.412 - Non-pressure chronic ulcer of right heel andmidfoot with fat layer exposed (3) Decubitus ulcer of left buttock, stage 2: CODE(S): L89.322 - Pressure ulcer of left buttock, stage 2 (4) Tobacco use: CODE(S): Z72.0 - Tobacco use (5) Type 2 diabetes mellitus: CODE(S): E11.9 - Type 2 diabetes mellitus without complications QUALIFIERS: Diabetes mellitus covered button maker insulin use: with covered button maker use Diabetes mellitus complication status: with skin complications Diabetes mellitus complication detail: with foot ulcer Qualified Code(s): E11.621 - Type 2 diabetes mellitus with foot ulcer; L97.509 - Non-pressure chronic ulcer of other part of unspecified foot with unspecified severity; 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 Good granulation tissue noted, no significant concerns for infection. Aquacel extra to all ulcers, cover with Adaptic. Nurses hat to both heels to help with offloading and foam dressing to the left buttock. Prescription for gel cushion sent. He was advised to reposition often and avoid consistent pressure. Smoking cessation and optimal diabetes control also recommended. We have requested labs from his PCP. Increase protein intake. His questions were answered and he was advised to let us know if he has any further questions or concerns. Follow-up in a week or sooner if needed. This note was generated with Seriouslyation software. It may contain incorrectwords, spelling, and punctuation that were not noted in checking the note beforesigning. 12/04/22 1303 <Electronically signed by Lior Salcido MD> Cosigner Signature (if applicable): CC: ~ Signed [facility] Work Phone: 1(530) 731-991207-19-2023 Miscellaneous Notes* Telephone Encounter - Layla Horner LPN - 12/02/2022 9:51 AM EDT Prachi, nurse with [facility] calling to request the followin)new prescriptions to be sent to [facility] for DEXCOM 6 . Pt has the Sensors but will need Chief Lock Tender Operator and Transmitter. [facility] was not able to give to the pt due to billing. Prachi would like to try get from [facility]. Pt will need to have test strips called in now till they can possible get this. Pt tests his blood sugar 4 times daily and PRN Test strips go to [facility] the other 2 prescriptions go to [facility]. 2)verbal orders for half-way to change dressings on pt's heals. (pt does have an apt with wound care also) [facility] does not do half-way care but will contact [facility] to come in to do if verbal order is given. Prachi was given fax number for provider and will let them know to have the agency fax 485 form when they have seen pt. Layla Horner [facility] Patient has been identified by name and date of : Yes, Provider Dr. Chery Date 12/02/22 Time10:28 am [facility]s): Requested Prescriptions Pending Prescriptions Disp Refills Blood-Glucose Meter,Continuous (DEXCOM G6 COTTON WEIGHER) misc 1 Each 0 Sig: Use to check blood sugar at least four (4) times daily. Blood-Glucose Transmitter (DEXCOM G6 TRANSMITTER) kimberly 1 Each 3 Sig: Apply new transmitter every 90 days. Clean transmitter with an alcohol swab with each sensor change. blood sugar diagnostic (BLOOD GLUCOSE TEST) test strip 150 Strip 11 Sig: Test blood sugar(s) 4 times daily and PRN. Dx: Type 2 DM - Controlled E11.9 Insulin: Yes Date of last office visit in primary care: 11/24/22 next apt 02/25/23 Last 2 Encounter Wt Readings: Date: Wt: 11/24/2022 108 kg (238 lb) 11/11/2022 108 kg (238 lb) Previous labs/tests for medication: Diabetes: Hemoglobin A1C (%) Date Value 10/22/2022 7.2 01/30/2022 7.4 Thank you. Layla JACQUES documented in this encounterWvumedicine [facility]07-11-2023 Instructions* Patient Instructions* Mike Candelario APRN.CNS - 11/24/2022 2:43 PM EDT Check with your insurance to see where your wheelchair order should go to. We can send the order to [facility] today if you would like to see if they accept your insurance Keep your appointment with the wound center for your heel wounds Complete a sleep study documented in this encounterWvumedicine [facility]07-11-2023 History of Present illness Narrative* Mike Candelario APRN.CNS - 11/24/2022 2:20 PM EDT Images from the original note were not included. SUBJECTIVE: PNEUMOCOCCAL(1 - PCV) Never done URINE ALBUMIN:CREATININE RATIO Never done DILATED RETINAL EXAM Never done DTAP,TDAP,TD(1 - Tdap) Never done SHINGRIX VACCINE(1 of 2) Never done COLORECTAL CANCER SCREENING Never done LUNG CANCER SCREENING Never done COVID-19 VACCINE(4 - Booster for Moderna series) due on 12/02/2021 HEPATITIS B(2 of 3 - 19+ 3-dose series) due on 02/27/2022 HPI Berta Jaramillo is a 57 year old male. PMH significant for ACTIVE PROBLEM LIST Neuropathy Essential Hypertension Diabetes Mellitus (Hcc) Depression, Recurrent (Hcc) Atopic Eczema History of Rheumatoid Arthritis Rheumatoid Arthritis, Involving Unspecified Site, Unspecified Whether Rheumatoid Factor Present (Hcc) HPI excerpted from previous visits: Presents today to establish care with Rachel Chery MD No prior CC visits. Previous PCP: Prosper Guzmán,M1 ARMOR CREWMAN [address] [place] [address] WILD BARNETT, EXTENSION PROFESSOR-C [address] [place] [address] States Wild was coming to his facility - assisted living in [place]. Was not a good match so changing providers. States she stopped seeing him when he changed to CC. Last seen: September 2021 Labwork: Jul 2021 ER/Hospitalization: Dec 2020 [facility] vomiting, ANDRE Outside records: medications only; no medical records Pain management Dr Rosa for peripheral neuropathy. Taking belbuca and pregabalin. Belbuca per Dr Rosa. Pregaballin per Wild [place]. States he was seen by winch runner in [facility], does not recall who, for RA. Has seen a bacteriology research assistant, but not currently. States billing concern. DIABETES MELLITUS: Notes has not been well controlled. Notes FBS today at 186. Notes BS dropping inthe evenings to 50s. Taking SSI and 40 units Tresiba at bedtime. Does feel when BS is low.Without report of S/S. Notes checking BS 4 times per day. Had CGM but not currently, interested in resuming. Patient's last HgA1C was Hemoglobin A1C (%) Date Value 10/22/2022 7.2 01/30/2022 7.4 ) Hyperlipidemia. Mr. Jaramillo reports doing well on current therapy . His most recent lipid panels are: Cholesterol, Total (mg/dL) Date Value 01/30/2022 72 HDL Cholesterol (mg/dL) Date Value 01/30/2022 26 LDL Cholesterol (mg/dL) Date Value 01/30/2022 20 Triglyceride (mg/dL) Date Value 01/30/2022 129 HTN: Without report of headache, chest pain, palpitations, dyspnea, peripheral edema, orthopnea, fatigue, and PND. No data found for this vital: BP GERD: no current complaints Anxiety/depression: notes feeling depressed on current medications, no voiced SI, interested in seeing a counselor. States little mobility, primarily sits in scooter due to peripheral neuropathy which is aggravated by walking. Can walk short distances but avoids due to pain. Presents today for emergency department follow-up visit. He was seen at [facility] on April 10 April 11. He presented on April 10, 2022 with hyperglycemia nausea and vomiting and dizziness. He reported symptoms present for 2 days prior to arrival. Exam showed positive Dwayne-Hallpike maneuver and cerumen impaction treated with Debrox.. CBC showed mild anemia hemoglobin 10.9 hematocrit 32.4 potassium 5.6 BUN 21 creatinine 1.22. Noted to have urinary retention and catheterwas placed. No signs of infection on testing. He was advised to follow-up with urology. He was advised to maintain adequate hydration. He subsequently returned to emergency department for blood notedin catheter. Notes indicate concern for sleep apnea. He was seen by Usama Bryan on April 14, 2022 for retention of urine. He was treated with nitrofurantoin. Catheter was removed and he was unable to void. He declined having Worthy catheter reinserted. He declined self-catheterization. He was advised to follow-up with urology if unable to urinate on his own. Presents today without escort. Notes he is currently in assisted living. He reports history of rheumatoid arthritis not currently seeing winch runner. Today reports feeling about the same. Dizziness: yes, intermittent. Not taking meclizine Urine output: states now no trouble with urination Notes ears cleaned out at ER. SINDHU: no prior diagnosis Sleep study: none reported STOP BANG Questionnaire 1. Snoring Do you snore loudly (louder than talking or loud enough to be heard through closed doors)? YES 2. Tired Do you often feel tired, fatigued, or sleepy during daytime? YES 3. Observed Has anyone observed you stop breathing during your sleep? NO 4. Blood Pressure Do you have or are you being treated for high blood pressure? YES 5. BMI BMI more than 35 kg/m2? YES 6. Age Age over 50 yr old? YES 7. Neck circumference Neck circumference greater than 40 cm? YES 49.5 cm 8. Gender Gender male? YES * Neck circumference is measured by staff High risk of SINDHU: answering yes to three or more items Low risk of SINDHU: answering yes to less than three items Today presents with concern regarding wheelchair. Currently using electric wheelchair and, in need of replacement due to current when not working. Arm rests are falling apart, controls are falling apart. Current physical abilities/limitations:can transfer, unable to stand very long Ability to use within the home: yes Ability to perform bathing dressing grooming toileting home management transfers and ambulation: Uses wheelchair currently to complete all daily activities, transfers from chair to chair in bathroom and in home. Uses to transfer to bed Current type of transportation: uses van; charter coach driver for him through hisinsurance How wheelchair increase independence: unable to complete ADLs without it currently, in need of replacement Ability to use mobility device safely:is currently using safely. He reports he has not yet received a wheelchair. States that the prior information he gave us for the wheelchair did not work, they do not accept his insurance. Reports chronic pain of both knees. Left greater than right currently. He reports difficulty with sleep, previously ordered PSG not yet completed. He reports staff at [facility] helping with dressing wounds. Has an appointment coming up next week at [facility] wound center he states. Review of Systems Constitutional: Negative. Musculoskeletal: Positive for arthralgias, back pain and gait problem. Neurological: Positive for numbness. Objective BP 108/60 Pulse 77 Resp 16 Wt 108 kg (238 lb) SpO2 98% BMI 35.15 kg/m Physical Exam Vitals and nursing note reviewed. Constitutional: Appearance: Normal appearance. HENT: Head: Normocephalic and atraumatic. Eyes: Conjunctiva/sclera: Conjunctivae normal. Neck: Thyroid: No thyromegaly. Vascular: Normal carotid pulses. No JVD. Cardiovascular: Rate and Rhythm: Normal rate and regular rhythm. Heart sounds: Normal heart sounds. Pulmonary: Effort: Pulmonary effort is normal. Breath sounds: Normal breath sounds. Abdominal: General: Bowel sounds are normal. Palpations: Abdomen is soft. Musculoskeletal: Feet: Feet: Comments: abnormality left great toe joint, swelling vs injury Skin: General: Skin is warm and dry. Comments: Wound right lateral heel ~1 diameter, pink wound base, small amount of yellow eschar central portion, Left lateral heel - pin dot open are, pink wound base. Neurological: General: No focal deficit present. Mental Status: He is alert. ALLERGIES No Known Allergies Medications ezetimibe (ZETIA) 10 mg tablet Take 1 tablet by mouth once daily. lisinopril (ZESTRIL) 10 mg tablet Take 1 tablet by mouth once daily. metoprolol tartrate, short acting, (LOPRESSOR) 25 mg tablet Take 1 tablet by mouth twice daily. buPROPion SR (ZYBAN SR; WELLBUTRIN SR) 150 mg 12 hr tablet Take 1 tablet by mouth twice daily. leflunomide (ARAVA) 10 mg tablet Take 1 tablet by mouth once daily. atorvastatin (LIPITOR) 80 mg tablet Take 1 tablet by mouth once daily. amitriptyline (ELAVIL) 75 mg tablet Take 1 tablet by mouth daily at bedtime. tamsulosin (FLOMAX) 0.4 mg Take 2 capsules by mouth once daily. QUEtiapine (SEROQUEL) 25 mg tablet Take 1 tablet by mouth twice daily. amLODIPine (NORVASC) 10 mg tablet Take 1 tablet by mouth once daily. pantoprazole DR (PROTONIX) 40 mg tablet Take 1 tablet by mouth once daily. metFORMIN (GLUCOPHAGE) 1,000 mg tablet Take 1 tablet by mouth twice daily with meals. DULoxetine (CYMBALTA) 60 mg capsule Take 1 capsule by mouth once daily. collagenase (SANTYL) ointment Apply to affected area once daily. Gauze Bandage 4 X 4 bndg Apply 1 application to affected area once daily. Gauze Bandage (GAUZE ROLL) 2 X 2 -yard bndg Apply 1 application to affected area once daily. Pregabalin (LYRICA) 225 mg capsule Take 1 capsule by mouth three times daily for 90 days. sertraline (ZOLOFT) 50 mg tablet Take 1.5 tablets by mouth once daily. To equal 75 mg daily. sertraline (ZOLOFT) 25 mg tablet Take 1 tablet by mouth once daily. Take this in addition to 50 mg for a total of 75 mg per day sucralfate (CARAFATE) 1 gram tablet Take 1 tablet by mouth four times daily. meclizine (ANTIVERT) 25 mg tab Take 1 tablet by mouth every 6 hours as needed (dizziness). ketoconazole (NIZORAL) 2 % shampoo Apply to affected area two times a week. Apply to scalp; lather;rinse off after 5 minutes albuterol HFA (PROVENTIL HFA, VENTOLIN HFA) 90 mcg/actuation inhaler Inhale 2 Puffs as instructed every 4 hours as needed for wheezing/shortness of breath. Lancets lancets Test blood sugar(s) 1 times daily and as needed. Dx: Type 2 DM - Controlled E11.9 Insulin: No pen needle, diabetic, safety 31 gauge x 5/16 ndle Use as directed with insulin pen insulin aspart U-100 (NOVOLOG FLEXPEN U-100 INSULIN) 100 unit/mL (3 mL) Inject subcutaneously: 8 units breakfast, 4 units lunch, 4 units dinner, 2 units with 8 pm snack (if eating) PLUS Sliding =6, 151-200-1 units, 201-250=2 units, 251-300=3 units, 301-350=4 units, 351-400=5 units based onpre meal blood sugar only as needed. insulin needles, DISPOSABLE, (ULTICARE PEN NEEDLE) 31 gauge x 5/16 Inject 1 Each subcutaneously asdirected. triamcinolone acetonide (KENALOG) 0.1 % cream Apply 1 application to affected area twice daily. Apply sparingly to area for rash/itching. Once rash on hands improves, go to treating 2 day per week TRESIBA FLEXTOUCH U-100 100 unit/mL (3 mL) injection pen Inject 40 Units subcutaneously daily at bedtime. dupilumab (DUPIXENT PEN) 300 mg/2 mL pen Inject subcutaneously every 2 weeks. Cholecalciferol, Vitamin D3, 50 mcg (2,000 unit) cap Take by mouth. aspirin 81 mg cap Take by mouth once daily. Blood-Glucose Meter,Continuous (DEXCOM G6 COTTON WEIGHER) [facility] Use to check blood sugar at least four (4)times daily. Blood-Glucose Transmitter (DEXCOM G6 TRANSMITTER) kimberly Apply new transmitter every 90 days. Clean transmitter with an alcohol swab with each sensor change. Blood-Glucose Sensor (DEXCOM G6 SENSOR) kimberly Apply new sensor every ten (10) days to abdomen. busPIRone (BUSPAR) 5 mg tablet Take 1 tablet by mouth three times daily. PAST MEDICAL HISTORY Diagnosis Date Atopic eczema Chronic anemia Depression Depression Diabetes mellitus (HCC) Essential hypertension Generalized anxiety disorder Hypercholesterolemia Neuropathy Social History Tobacco Use Smoking status: Every Day Packs/day: 1.00 Years: 44.00 Total pack years: 44.00 Types: Cigarettes Smokeless tobacco: Never Vaping Use Vaping Use: Never used Substance Use Topics Alcohol use: Never Drug use: Never Component Latest Ref Rng & Units 01/30/2022 04/24/2022 WBC 3.70 - 11.00 k/uL 8.12 RBC 4.20 - 6.00 m/uL 4.27 Hemoglobin 13.0 - 17.0 g/dL 11.0 (L) Hematocrit 39.0 - 51.0 % 32.4 (L) MCV 80.0 - 100.0 fL 75.9 (L) MCH 26.0 - 34.0 pg 25.8 (L) MCHC 30.5 - 36.0 g/dL 34.0 RDW-CV 11.5 - 15.0 % 19.0 (H) Platelet Count 150 - 400 k/uL 248 MPV 9.0 - 12.7 fL 10.8 Neut% % 57.3 Abs Neut (ANC) 1.45 - 7.50 k/uL 4.66 Lymph% % 29.7 Abs Lymph 1.00 - 4.00 k/uL 2.41 Yankton% % 6.7 Abs [place]ankton <0.87 k/uL 0.54 Eosin% % 5.2 Abs Eosin <0.46 k/uL 0.42 Baso% % 0.9 Abs Baso <0.11 k/uL 0.07 Immature Gran % % 0.2 IMMATURE GRANS (ABS) <0.10 k/uL <0.03 NRBC /100 WBC 0.0 Absolute nRBC <0.01 k/uL <0.01 DTYPE Auto Protein, Total 6.3 - 8.0 g/dL 7.1 Albumin 3.9 - 4.9 g/dL 4.0 Calcium 8.5 - 10.2 mg/dL 9.0 9.0 Bilirubin, Total 0.2 - 1.3 mg/dL 0.2 Alkaline Phosphatase 38 - 113 U/L 141 (H) AST 14 - 40 U/L 13 (L) ALT 10 - 54 U/L 14 Glucose 74 - 99 mg/dL 169 (H) 204 (H) BUN 9 - 24 mg/dL 11 15 Creatinine 0.73 - 1.22 mg/dL 0.94 1.02 Sodium 136 - 144 mmol/L 139 138 Potassium 3.7 - 5.1 mmol/L 5.1 5.3 (H) Chloride 97 - 105 mmol/L 103 104 CO2 22 - 30 mmol/L 27 24 Anion Gap 9 - 18 mmol/L 9 10 eGFR >=60 mL/min/1.73m 96 87 Cholesterol, Total <200 mg/dL 72 Triglyceride <150 mg/dL 129 HDL Cholesterol >39 mg/dL 26 (L) Non HDL Cholesterol <130 mg/dL 46 Fasting Time hrs 12 VLDL Cholesterol <30 mg/dL 26 TC:HDL Ratio <5.10 2.77 LDL Cholesterol <100 mg/dL 20 LDL:HDL Ratio <2.54 0.77 HIV 12 Combo (Ag/Ab) Nonreactive Nonreactive HIV 1/2 Ab HIV Interpretation Hemoglobin A1C 4.3 - 5.6 % 7.4 (H) Estimated Average Glucose mg/dL 166 Hep C Antibody IA Negative Negative PSA Screening <2.60 ng/mL 0.10 ASSESSMENT/PLAN: 1. Diabetic ulcer of ankle (HCC) - ICD9: 250.80, 707.13, ICD10: E11.622, L97.309 (primary diagnosis) States he has an upcoming appointment at [facility] wound care center. States has been getting assistance with wound dressings at [facility] by care providers. Notes wounds both heels currently. 2. Rheumatoid arthritis, involving unspecified site, unspecified whether rheumatoid factor present (HCC) - ICD9: 714.0, ICD10: M06.9 3. Peripheral polyneuropathy - ICD9: 356.9, ICD10: G62.[address] Rosa 4. Snoring - ICD9: 786.09, ICD10: R06.83 5. Daytime sleepiness - ICD9: 780.54, ICD10: R40.0 Needs to schedule PSG Will send WC order to [facility]. Will re-send wound center consult to [facility] 3 mo Mike Candelario APRN.UNATTENDED GROUND SENSOR SPECIALIST 6 mo follow up Rachel Chery MD, A1c 6 mos Mike Candelario APRN.UNATTENDED GROUND SENSOR SPECIALIST . Medical Decision Making: Problems: Moderate: 2+ stable chronic illnesses and 1+ chronic illnesses with change Risk: Moderate: Drug management Medical Decision Making Level: 4 - Moderate documented in this encounterWvumedicine [facility] Hospital07-11-2023 Miscellaneous Notes* Telephone Encounter - Nidhi Wynn RN - 11/24/2022 9:46 AM EDT Neris calls and notified of provider response. Neris voices understanding. She is going to check with facility patient is in regards to PT, and look into competency evaluation testing. Faxed Provider response to Neris at [phone]. Neris is going to discuss this with patient. Nidhi Wynn RN * Telephone Encounter - Alejandra Montalvo LPN - 11/24/2022 9:29 AM EDT LEFT MESSAGE FOR Neris TO CALL OFFICE. * Telephone Encounter - Alejandra Montalvo LPN - 11/09/2022 12:54 PM EDT LEFT MESSAGE FOR Shan CALL OFFICE. * Telephone Encounter - Rachel Chery MD - 11/07/2022 8:09 PM EDT I have seen Mr. Jaramillo only one time so I cannot determine whether he can return to Independent Living nor can I determine whether he is competent to make that decision. Would benefit from a competency evaluation--do they have someone who would do the evaluation? He did have a lot of medical problems for which it sounds like he would benefit from being in Assisted Living. Did someone there do PT evaluation to verify if safe to get around independently and safely wherever he plans to live? * Telephone Encounter - Mike Candelario APRN.CNS - 11/05/2022 7:05 AM EDT Will defer to PCP. * Telephone Encounter - Kati Neely LPN - 11/04/2022 11:48 AM EDT Neris is case management social worker at [facility] pt is residing in assisted living currently but wants to return to independent living. Neris asking if provider feels it would be safe to discharge pt? Wonders if she thinks pt would need a competency eval? Looking for direction from provider. STEVEN 10/22/22 NOV 11/23/22 Please notify Neris [phone]. Kati Neely LPN documented in this encounterWvumedicine [facility]07-06-2023 Miscellaneous Notes* Telephone Encounter - Nidhi Wynn RN - 11/19/2022 10:42 AM EDT Last Office Visit: 11/11/2022 Future Office Visit: 11/24/2022 Requested Prescriptions Pending Prescriptions Disp Refills ezetimibe (ZETIA) 10 mg tablet 30 tablet 5 Sig: Take 1 tablet by mouth once daily. lisinopril (ZESTRIL) 10 mg tablet 30 tablet 5 Sig: Take 1 tablet by mouth once daily. metoprolol tartrate, short acting, (LOPRESSOR) 25 mg tablet 60 tablet 5 Sig: Take 1 tablet by mouth twice daily. buPROPion SR (ZYBAN SR; WELLBUTRIN SR) 150 mg 12 hr tablet 60 tablet 5 Sig: Take 1 tablet by mouth twice daily. leflunomide (ARAVA) 10 mg tablet 30 tablet 5 Sig: Take 1 tablet by mouth once daily. atorvastatin (LIPITOR) 80 mg tablet 30 tablet 5 Sig: Take 1 tablet by mouth once daily. amitriptyline (ELAVIL) 75 mg tablet 30 tablet 5 Sig: Take 1 tablet by mouth daily at bedtime. tamsulosin (FLOMAX) 0.4 mg 60 capsule 5 Sig: Take 2 capsules by mouth once daily. QUEtiapine (SEROQUEL) 25 mg tablet 60 tablet 5 Sig: Take 1 tablet by mouth twice daily. amLODIPine (NORVASC) 10 mg tablet 30 tablet 5 Sig: Take 1 tablet by mouth once daily. pantoprazole DR (PROTONIX) 40 mg tablet 30 tablet 5 Sig: Take 1 tablet by mouth once daily. metFORMIN (GLUCOPHAGE) 1,000 mg tablet 60 tablet 5 Sig: Take 1 tablet by mouth twice daily with meals. DULoxetine (CYMBALTA) 60 mg capsule 30 capsule 5 Sig: Take 1 capsule by mouth once daily. Date of Last Labs: 10/23/2022 documented in this encounterWvumedicine [facility]ville Hospital07-05-2023 Miscellaneous Notes* Telephone Encounter - Wendy Hayes RN - 11/18/2022 3:15 PM EDT Received call from [facility] stating they have received pt's script for wheelchair and are requesting recent OV note and insurance information. This nurse contacted patient to verify consent to send records to this [employer] company. Pt verbalized consent. Information faxed to [phone] Attention Breanne. Pt aware. Wendy Hayes RN documented in this encounterWvumedicine [facility]ville Hospital07-03-2023 Miscellaneous Notes* Telephone Encounter - Parisa Poole RN - 11/16/2022 10:04 AM EDT Pt called and is notified of providers results and instructions. Pt states he has not called [facility] wound center because he feels like the wound is healing. Pt encouraged to please call and set up the appt. Pt voices understanding. Parisa Poole RN * Telephone Encounter - Teresa Griffin APRN.DAWIT - 11/16/2022 7:28 AM EDT Please let patient know that wound culture had no bacterial growth so at this time he does no need antibiotics. IF anything changes with the wound let us know. Can we also see when he was able to getscheduled with [facility] wound center for follow up on this? Thanks!! documented in this encounterWvumedicine [facility]ville Hospital06-29-2023 Miscellaneous Notes* Telephone Encounter - Kenzie Anderson LPN - 11/12/2022 12:13 PM EDT Prescription faxes to [facility] at below fax number as requested. * Telephone Encounter - Mike Candelario APRN.CNS - 11/12/2022 7:09 AM EDT Note OV yesterday, does not appear sent yesterday. Please process. * Telephone Encounter - Jodi Fields LPN - 11/11/2022 1:09 PM EDT Patient in office today for follow up. States -wheelchair script needs to be faxed to [facility] [phone]. * Telephone Encounter - Alejandra Montalvo LPN - 11/09/2022 12:53 PM EDT LEFT MESSAGE FOR PATIENT TO CALL OFFICE. * Telephone Encounter - Mike Candelario APRN.CNS - 11/06/2022 1:07 PM EDT Noted. Sooner appt if willing. If he can recall where he got the last wheelchair can send order there. It may be noted on his current wheelchair. * Telephone Encounter - Layla Horner LPN - 11/06/2022 11:14 AM EDT Spoke with pt and he did not have the DME company he wanted to use yet. Questioned him regarding the type of wheel chair and he reports it just needs to able to prop his legs and feet up. He will have to get back with the office. May bring information with him when he comes in for apt on 11-11-22. While talking to the pt he reported problem with right heel - skin was off and he is covering it with a bandaide. Also pt reported problems with his left leg giving out on him. Pt scheduled for an apt on 11-11-22. Sooner apt was declined by pt due to transportation issues. Layla Horner LPN * Telephone Encounter - Mike Candelario APRN.CNS - 11/05/2022 7:02 AM EDT I am sorry, what is needed at this time? See office note, he was to Call back and let us know where you want your wheelchair order to go to Does he now have the DME? Which one is it? Please see other note regarding this pt this date. * Telephone Encounter - Layla Horner LPN - 10/26/2022 7:25 PM EDT Pt reports needs a wheel chair prescription that raises legs and lifts him up his body. This was discuss at apt with Mike Candelario on 10-22-22 per pt. Pt will call with name and fax number on where this needs to be sent to. Layla Horner LPN documented in this encounterWvumedicine [facility]ville Hospital06-28-2023 Instructions* Patient Instructions* Teresa Griffin APRN.M1 ARMOR CREWMAN - 11/11/2022 1:26 PM EDT Call and schedule with wound center at [facility] If you cannot be seen with the wound center in the next 1-2 weeks then follow up with me in 10 days- 2 weeks. Dressing instructions for wound dressing: documented in this encounterWvumedicine [facility]06-28-2023 History of Present illness Narrative* Teresa Griffin APRN.CNP - 11/11/2022 1:03 PM EDT Images from the original note were not included. SUBJECTIVE Berta Jaramillo is a 57 year old male here today for acute concern. Chief Complaint Patient presents with: Knee Pain: left Neuropathy HPI Berta Jaramillo is a 57 year old male established patient of Rachel Chery MD. He presents today acutely for concerns of worsening neuropathy and right heel ulcer. He was seen with rheumatology.No evidence of rheumatoid. Advised follow up with PCP for neuropathy pain. He is diabetic, last hgba1c was 7.2 two weeks ago. Pain is in both feet. He has minimal feeling in his feet. He is on Lyrica. He also has an open wound to his right heel, started about 1-2 weeks ago. He just recently healed a wound to the left heel with the [facility] wound center. He states he does not have much pain to it but that he notices an odor from the wound and some drainage. He does smoke. His medications were reviewed today and his list is now up to date. Medications Current Outpatient Medications Medication Sig collagenase (SANTYL) ointment Apply to affected area once daily. Gauze Bandage 4 X 4 bndg Apply 1 application to affected area once daily. Gauze Bandage (GAUZE ROLL) 2 X 2 -yard bndg Apply 1 application to affected area once daily. Pregabalin (LYRICA) 225 mg capsule Take 1 capsule by mouth three times daily for 90 days. sertraline (ZOLOFT) 50 mg tablet Take 1.5 tablets by mouth once daily. To equal 75 mg daily. sertraline (ZOLOFT) 25 mg tablet Take 1 tablet by mouth once daily. Take this in addition to 50 mg for a total of 75 mg per day sucralfate (CARAFATE) 1 gram tablet Take 1 tablet by mouth four times daily. meclizine (ANTIVERT) 25 mg tab Take 1 tablet by mouth every 6 hours as needed (dizziness). ketoconazole (NIZORAL) 2 % shampoo Apply to affected area two times a week. Apply to scalp; lather;rinse off after 5 minutes albuterol HFA (PROVENTIL HFA, VENTOLIN HFA) 90 mcg/actuation inhaler Inhale 2 Puffs as instructed every 4 hours as needed for wheezing/shortness of breath. Lancets lancets Test blood sugar(s) 1 times daily and as needed. Dx: Type 2 DM - Controlled E11.9 Insulin: No pen needle, diabetic, safety 31 gauge x 5/16 ndle Use as directed with insulin pen insulin aspart U-100 (NOVOLOG FLEXPEN U-100 INSULIN) 100 unit/mL (3 mL) Inject subcutaneously: 8 units breakfast, 4 units lunch, 4 units dinner, 2 units with 8 pm snack (if eating) PLUS Sliding =6, 151-200-1 units, 201-250=2 units, 251-300=3 units, 301-350=4 units, 351-400=5 units based onpre meal blood sugar only as needed. lisinopril (ZESTRIL, PRINIVIL) 10 mg tablet Take 1 tablet by mouth once daily. metoprolol tartrate, short acting, (LOPRESSOR) 25 mg tablet Take 1 tablet by mouth twice daily. buPROPion SR (ZYBAN SR; WELLBUTRIN SR) 150 mg 12 hr tablet Take 1 tablet by mouth twice daily. leflunomide (ARAVA) 10 mg tablet Take 1 tablet by mouth once daily. atorvastatin (LIPITOR) 80 mg tablet Take 1 tablet by mouth once daily. amitriptyline (ELAVIL) 75 mg tablet Take 1 tablet by mouth daily at bedtime. tamsulosin (FLOMAX) 0.4 mg Take 2 capsules by mouth once daily. ezetimibe (ZETIA) 10 mg tablet Take 1 tablet by mouth once daily. QUEtiapine (SEROQUEL) 25 mg tablet Take 1 tablet by mouth twice daily. amLODIPine (NORVASC) 10 mg tablet Take 1 tablet by mouth once daily. pantoprazole DR (PROTONIX) 40 mg tablet Take 1 tablet by mouth once daily. metFORMIN (GLUCOPHAGE) 1,000 mg tablet Take 1 tablet by mouth twice daily with meals. DULoxetine (CYMBALTA) 60 mg capsule Take 1 capsule by mouth once daily. insulin needles, DISPOSABLE, (ULTICARE PEN NEEDLE) 31 gauge x 16 Inject 1 Each subcutaneously asdirected. triamcinolone acetonide (KENALOG) 0.1 % cream Apply 1 application to affected area twice daily. Apply sparingly to area for rash/itching. Once rash on hands improves, go to treating 2 day per week TRESIBA FLEXTOUCH U-100 100 unit/mL (3 mL) injection pen Inject 40 Units subcutaneously daily at bedtime. dupilumab (DUPIXENT PEN) 300 mg/2 mL pen Inject subcutaneously every 2 weeks. Cholecalciferol, Vitamin D3, 50 mcg (2,000 unit) cap Take by mouth. aspirin 81 mg cap Take by mouth once daily. Blood-Glucose Meter,Continuous (DEXCOM G6 COTTON WEIGHER) [facility] Use to check blood sugar at least four (4)times daily. Blood-Glucose Transmitter (DEXCOM G6 TRANSMITTER) kimberly Apply new transmitter every 90 days. Clean transmitter with an alcohol swab with each sensor change. Blood-Glucose Sensor (DEXCOM G6 SENSOR) kimberly Apply new sensor every ten (10) days to abdomen. busPIRone (BUSPAR) 5 mg tablet Take 1 tablet by mouth three times daily. No current facility-administered medications for this visit. ALLERGIES No Known Allergies ACTIVE PROBLEM LIST Rheumatoid Arthritis, Involving Unspecified Site, Unspecified Whether Rheumatoid Factor Present ([facility]) - 10/22/2022 Neuropathy - 01/30/2022 Essential Hypertension - 01/30/2022 Diabetes Mellitus ([facility]) - 01/30/2022 Atopic Eczema - 01/30/2022 History of Rheumatoid Arthritis - 01/30/2022 Depression, Recurrent ([facility]) Social History Tobacco Use Smoking status: Every Day Packs/day: 1.00 Years: 44.00 Pack years: 44.00 Types: Cigarettes Smokeless tobacco: Never Vaping Use Vaping Use: Never used Substance Use Topics Alcohol use: Never Drug use: Never Review of Systems Respiratory: Negative. Cardiovascular: Negative. Skin: Positive for wound. Neurological: Positive for numbness. OBJECTIVE BP 118/58 Pulse 74 Resp 20 Ht 5' 9 (1.75m) Wt 238 lb (108.0kg) SpO2 94% BMI 35.13 kg/(m^2). Physical Exam Vitals and nursing note reviewed. Constitutional: General: He is awake. He is not in acute distress. Appearance: He is well-developed. He is not ill-appearing, toxic-appearing or diaphoretic. Comments: Sitting in wheel chair HENT: Head: Normocephalic. Right Ear: External ear normal. Left Ear: External ear normal. Nose: Nose normal. Eyes: General: Vision grossly intact. Conjunctiva/sclera: Conjunctivae normal. Pupils: Pupils are equal, round, and reactive to light. Neck: Vascular: No JVD. Trachea: Trachea normal. Cardiovascular: Rate and Rhythm: Normal rate and regular rhythm. Pulses: Normal pulses. Heart sounds: Normal heart sounds. No murmur heard. Pulmonary: Effort: Pulmonary effort is normal. No accessory muscle usage, prolonged expiration or respiratory distress. Breath sounds: Normal breath sounds. Musculoskeletal: Cervical back: Neck supple. Skin: General: Skin is warm and dry. Capillary Refill: Capillary refill takes less than 2 seconds. Comments: Wound site cleansed after culture obtained and dressing placed in office. Neurological: General: No focal deficit present. Mental Status: He is alert and oriented to person, place, and time. Mental status is at baseline. Psychiatric: Attention and Perception: Attention and perception normal. Mood and Affect: Mood and affect normal. Speech: Speech normal. Behavior: Behavior normal. Behavior is cooperative. Thought Content: Thought content normal. Cognition and Memory: Cognition and memory normal. Judgment: Judgment normal. Diabetic Foot Exam: Feet:Shoes and socks removed, Are you having foot pain yes, trace DP distal pulses, and ulcers noted right ASSESSMENT/PLAN: 1. Diabetic ulcer of ankle (HCC) - ICD9: 250.80, 707.13, ICD10: E11.622, L97.309 (primary diagnosis) Wound culture collected today. Start Santyl daily, wound care orders given for Angel Zelaya. Will refer to [facility] wound center since he was just seen there for left heel wound. Discussed off loading when resting. Encouraged smoking cessation. - SANTYL 250 UNIT/GRAM TOPICAL OINTMENT - GAUZE BANDAGE 4 X 4 - GAUZE BANDAGE 2 X 2 YARD - ABSCESS AND WOUND CULTURE WITH GRAM STAIN - CONSULT TO SKIN CARE TEAM 2. Type 2 diabetes mellitus with other specified complication, with long-term current use of insulin (HCC) - ICD9: 250.80, V58.67, ICD10: E11.69, Z79.4 - Barriers to control: diet adherence, lack of exercise, and pill burden - Continue current medications - Smoking cessation encouraged; discussed risks to health and quitting strategies. Patient is not ready to quit - CONSULT TO SKIN CARE TEAM - PREGABALIN 225 MG CAPSULE 3. Neuropathy - ICD9: 355.9, ICD10: G62.9 Increase lyrica. - PREGABALIN 225 MG CAPSULE 4. Peripheral polyneuropathy - ICD9: 356.9, ICD10: G62.9 - PREGABALIN 225 MG CAPSULE 5. Closed nondisplaced fracture of phalanx of left great toe, unspecified phalanx, initial encounter - ICD9: 826.0, ICD10: S92.405A Follow up with podiatry. I spent a total of 42 minutes on the date of the service which included preparing to see the patient, [id number] patient care, completing clinical documentation, obtaining and/or reviewing separately obtained history, performing a medically appropriate examination, counseling and educating the pat ient/family/caregiver, ordering medications, tests, or procedures, communicating with other HCPs (not separately reported), independently interpreting results (not separately reported), communicatingresults to the patient/family/caregiver, and care coordination (not separately reported). Portions of this note have been entered by ancillary staff. I have reviewed and when necessary edited, so that they are an adequate record of my encounter with this patient Please note that parts of this document were created using voice recognition software and therefore may contain grammatical errors. Patient verbalizes understanding of instructions from today's visit and in agreement with treatmentplan. Questions answered. Agrees to call the office if questions, concerns of issues with acute symptoms not improving or if they worsen. See diagnoses and orders for additional plan(s). Allergies and medications were reviewed, list was updated, and refills given if needed. Past medical, surgical, social, and family history reviewed and updated as appropriate. Encouraged proper diet & exercise as well as compliance with taking medications. Age- appropriate health preventative measures were discussed. Return if symptoms worsen or fail to improve, for Keep next scheduled appointment.. Teresa Griffin APRN-DAWIT documented in this encounterWvumed[facility]06-19-2023 Miscellaneous Notes* Telephone Encounter - Kenzie Anderson LPN - 11/02/2022 5:00 PM EDT Patient notified of providers message and verbalized understanding. * Telephone Encounter - Mike Candelario APRN.CNS - 11/02/2022 4:49 PM EDT Please let him know that Hgb1c is improved documented in this encounterWvumedicine [facility]06-15-2023 History of Present illness Narrative* SANJEEV Regalado - 10/29/2022 4:24 PM EDT Behavioral Health Social Work Progress Note Patient identified for [facility] from: PCP Reason for referral: Resources Behavioral Health Resources: Psychology - talk therapy [facility] encounter type: Letter Attempts to Outreach: 3 attempts Referral made: Psychology - Internal, Psychology - External Psychology-Internal referral type: Therapy Psychology-External referral type: Therapy Reason for external referral: Wait times at [facility] too long, Patient choice Final Disposition: Resources given Patient Discharged?: Yes Patient reported that caregiver was able to meet their needs today?: N/A therapist sent patient a letter with resources for behavioral health services. SANJEEV Regalado-S October 29, 2022 documented in this encounterWvumedicine [facility]06-14-2023 Miscellaneous Notes* Telephone Encounter - Leticia Orlando PA-C - 10/28/2022 3:51 PM EDT Telephone on 10/28/22 HEPATIC FUNCTION PNL * Telephone Encounter - Columba Castañeda - 10/28/2022 2:35 PM EDT Spoke with patient. Message explained in detail. He verbalizes understanding. He will attempt to obtain records from previous [facility]. He is going to call to make appointments to establish with a Rheum physician, Derm, Neuro, etc. He agrees to stop leflunomide for 1 week then repeat liver test. Can you please place the order for that? * Telephone Encounter - Leticia Orlando PA-C - 10/28/2022 2:07 PM EDT Please call There is no evidence of rheumatoid arthritis on the blood work. He has mildly elevated inflammation marker which is nonspecific. His liver tests are mildly elevated, worse than previously. 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 He is currently taking leflunomide which can affect the liver. Please have him hold this medicationand repeat liver test in 1 week. He should schedule Follow up with neurology or PCP for his neuropathy Dermatology for rash on hands Podiatry given the neuropathy and numbness in his feet Needs to establish with Rheum MD Thanks Leticia Orlando PA-C documented in this encounterWvumedicine [facility]06-09-2023 History of Present illness Narrative* Columba Solis CT - 10/23/2022 11:30 AM EDT Radiology Service Progress Note PATIENT NAME: Berta Jaramillo DATE OF SERVICE: October 23, 2022 TIME: 12:31 PM PATIENT IDENTITY VERIFICATION COMPLETED USING TWO (2) IDENTIFIERS: Name and Date of confirmedby patient verbally. FALL SCREENING: Has the patient had 2 falls in the last year or 1 fall with injury or currently using an Ambulatory Assistive Device (Walker, Cane, Wheelchair, Crutches, etc.)? Yes, Patient High Riskfor Falls What interventions were put in place to prevent falls during this visit? Offered Assistance with Transfers/Clothing and Increased Observations by Caregivers PATIENT GENDER DATA: Male PATIENT RELEVANT IMPLANT DATA REVIEWED: Not Applicable RADIOLOGY DEPARTMENT: General X-ray: Exam(s) Completed: Lower Extremity X- Ray(s): Foot, Bilateral Upper Extremity X-Ray(s): Hand, bilateral PERIPHERAL IV DATA: Not applicable SIGNED BY: KAY Meyer October 23, 2022 12:31 PM documented in this encounterWvumedicine [facility]2023 Miscellaneous Notes* Telephone Encounter - Franky Morgan RN - 09/14/2022 10:01 AM EDT Attempted to call patient to move up appointment, but there was no answer. He currently has appointment scheduled 09/25. * Telephone Encounter - Theresa Jones RN - 09/11/2022 8:19 AM EDT Images from the original note were not included. All Morgan RN 15 hours ago (4:48 PM) I do not have an xray to review. I would defer to the ed/urgent care on treatmetn until he is seen by us. Please have him make follow-up next week at some time All Barrientos DPM Left patient to schedule appointment with Dr. Barrientos. Please offer Friday 09/15 at 10:45 am. * Telephone Encounter - Kyra Fishman - 09/08/2022 9:18 AM EDT Patient is being referred to podiatry by PCP for S92.512A (ICD-10-CM) - Closed displaced fracture of proximal phalanx of lesser toe of left foot, initial encounter. Please notify the patient if he can be seen sooner to get DME support for the injured toe. documented in this encounterWvumedicine [facility]04-24-2023 Miscellaneous Notes* Telephone Encounter - Kenzie Anderson LPN - 09/07/2022 3:49 PM EDT Prachi from [facility] was notified of providers message and verbalized understanding. * Telephone Encounter - Mike Candelario APRN.CNS - 09/07/2022 3:38 PM EDT X-ray report shows Dr. Abdalla ordered x-ray. A fracture of the first digit which shows mild displacement, comminuted fracture of the first proximal phalanx. Would recommend podiatry visit at earliest convenience. Consult was placed, please schedule. I have no other information but would recommend avoiding anything that causes pain in the area and elevating his foot when seated. Apply ice or cold pack 15 to 20 minutes 3-4 times a day to help withpain and swelling. * Telephone Encounter - Mike Candelario APRN.CNS - 09/07/2022 3:15 PM EDT Who ordered the XR? Obtain XR report and forward please. * Telephone Encounter - Kati Neely LPN - 09/07/2022 9:42 AM EDT Prachi from [facility] reports pt has a toe fracture & is looking for instructions. She will fax the xray report to office. Kati Neely LPN documented in this encounterWvumedicine [facility]04-24-2023 Miscellaneous Notes* Telephone Encounter - Teresa Griffin APRN.CNP - 09/07/2022 2:05 PM EDT Can let patient know rx sent. * Telephone Encounter - Fariba Corrigan LPN - 09/07/2022 1:53 PM EDT Rosie from [facility] calling patient had gotten Sucralfate rx from [facility] where he lives before and she said to have PCP office give rx, erikleona PCP is out office this week. Please advise Patient has been identified by name and date of : Pharmacy phones for refill(s): Requested Prescriptions Pending Prescriptions Disp Refills sucralfate (CARAFATE) 1 gram tablet 120 tablet Sig: Take 1 tablet by mouth four times daily. Date of last office visit in primary care: 05/27/2022 Last 2 Encounter Wt Readings: Date: Wt: 04/14/2022 135.2 kg (298 lb) 01/30/2022 127.5 kg (281 lb) Previous labs/tests for medication: Not applicable Please advise. Thank you. Fariba Corrigan LPN documented in this encounterWvumedicine [facility]04-23-2023 Miscellaneous Notes* Telephone Encounter - Rachel Chery MD - 09/06/2022 1:18 PM EDT The following approved medication requests have been transmitted electronically. Requested Prescriptions Signed Prescriptions Disp Refills Pregabalin (LYRICA) 200 mg capsule 90 capsule 2 Sig: Take 1 capsule by mouth three times daily for 90 days. Authorizing Provider: RACHEL CHERY MD * Telephone Encounter - Franky Garcia RN - 09/04/2022 4:38 PM EDT Patient has been identified by name and date of : Yes, Provider Dr Chery Date 09/04/22 Time 1640. Pharmacy phones for refill(s): Requested Prescriptions Pending Prescriptions Disp Refills Pregabalin (LYRICA) 200 mg capsule 90 capsule 2 Sig: Take 1 capsule by mouth three times daily for 90 days. Date of last office visit in primary care: 05/27/22 Future visit: 11/23/22 Last 2 Encounter Wt Readings: Date: Wt: 04/14/2022 135.2 kg (298 lb) 01/30/2022 127.5 kg (281 lb) Previous labs/tests for medication: Blood Pressure: BUN (mg/dL) Date Value 04/24/2022 15 Sodium (mmol/L) Date Value 04/24/2022 138 Last 1 Encounter BP Readings: Date: BP: 05/27/2022 112/64 Liver Function: ALT (U/L) Date Value 01/30/2022 14 AST (U/L) Date Value 01/30/2022 13 Please advise. Thank you. Franky Garcia RN documented in this encounterWvumedicine [facility]04-12-2023 Miscellaneous Notes* Telephone Encounter - Nidhi Wynn RN - 08/26/2022 1:50 PM EDT Last Office Visit: 05/27/2022 Future Office Visit: 11/23/2022 Requested Prescriptions Pending Prescriptions Disp Refills meclizine (ANTIVERT) 25 mg tab 30 tablet 0 Sig: Take 1 tablet by mouth every 6 hours as needed (dizziness). documented in this encounterWvumedicine [facility]04-06-2023 Miscellaneous Notes* Telephone Encounter - Fariba Corrigan LPN - 08/20/2022 2:13 PM EDT Patient has been identified by name and date of : Pharmacy phones for refill(s): Requested Prescriptions Pending Prescriptions Disp Refills ketoconazole (NIZORAL) 2 % shampoo 120 mL 2 Sig: Apply to affected area two times a week. Apply to scalp; lather; rinse off after 5 minutes Date of last office visit in primary care: 05/27/2022, has appt 08/24/2022 Last 2 Encounter Wt Readings: Date: Wt: 04/14/2022 135.2 kg (298 lb) 01/30/2022 127.5 kg (281 lb) Previous labs/tests for medication: Not applicable Please advise. Thank you. Fariba Corrigan LPN documented in this encounterWvumedicine [facility]04-01-2023 Miscellaneous Notes* Telephone Encounter - Layla Horner LPN - 08/15/2022 11:55 AM EDT Pt tests approx 4 times per day between both both devices. FYI:Pt is in a wheel chair. Layla Horner LPN * Telephone Encounter - Rachel Chery MD - 08/11/2022 9:09 PM EDT Request for test strip faxed on 08/03/22 found today No prior orders on our med list How often does he need to check sugars? I wrote for daily and as needed but can change if need to check more often. Hemoglobin A1C (%) Date Value 01/30/2022 7.4 documented in this encounterWvumedicine [facility]03-30-2023 Miscellaneous Notes* Telephone Encounter - Fariba Corrigan LPN - 08/13/2022 2:17 PM EDT Patient calling said he has headache, no smell or taste, coughing, congestion. He said had COVID test by a nurse where he lives 4 to 5 days ago was negative. Advised patient would need seen to get rx, PCP is out of the office today. Patient said he is in wheel chair and has no transportation, wouldtake several days to arrange ride, he does not have my chart so can not do virtual visit. documented in this encounterWvumedicine [facility]03-28-2023 Miscellaneous Notes* Telephone Encounter - Hailey Fitzgerald LPN - 08/11/2022 9:04 AM EDT Left message on identified vm, RX was faxed to [facility]. Hailey Fitzgerald LPN * Telephone Encounter - Rachel Chery MD - 08/06/2022 11:08 PM EDT Cannot find a safety up for pen needles. Thought maybe needs pen needle with safety tip thought the size on medlist is the one that is marked not covered. Can change gauge and length covered size if needed. If there is different order for just some kind of safety tip. pend RX for me to approve with correct number and refills The following approved medication requests have been transmitted electronically. Requested Prescriptions Signed Prescriptions Disp Refills pen needle, diabetic, safety 31 gauge x 5/16 ndle 200 Each 3 Sig: Use as directed with insulin pen Authorizing Provider: RACHEL CHERY MD * Telephone Encounter - Margarita Mireles LPN - 08/04/2022 1:07 PM EDT Received faxed request from [facility] requesting RX for Safety pen tips for insulin pens be faxed to [facility]. [facility] fax [phone]. Margarita Mireles LPN documented in this encounterWvumedicine [facility]03-02-2023 Miscellaneous Notes* Telephone Encounter - Estephania Cervantes RN - 07/16/2022 4:01 PM EST Patient has been identified by name and date of : Yes, Provider Date Time Pharmacy phones for refill(s): Requested Prescriptions Pending Prescriptions Disp Refills insulin aspart U-100 (NOVOLOG FLEXPEN U-100 INSULIN) 100 unit/mL (3 mL) 15 mL 3 Sig: Inject subcutaneously: 8 units breakfast, 4 units lunch, 4 units dinner, 2 units with 8 pm snack (if eating) PLUS Sliding scale 150=0, 151-200-1 units, 201-250=2 units, 251-300=3 units, 301-350=4 units, 351-400=5 units based on pre meal blood sugar only as needed. Date of last office visit with pcp: 05/27/22 Date of last office visit in primary care: Last 2 Encounter Wt Readings: Date: Wt: 04/14/2022 135.2 kg (298 lb) 01/30/2022 127.5 kg (281 lb) Previous labs/tests for medication: Diabetes: Hemoglobin A1C (%) Date Value 01/30/2022 7.4 Please advise. Thank you. Estephania Cervantes RN documented in this encounterWvumedicine [facility]02-13-2023 Miscellaneous Notes* Telephone Encounter - Nidhi Rivera - 06/29/2022 9:18 AM EST Patient has been r/s * Telephone Encounter - Nidhi Rivera - 06/25/2022 9:37 AM EST Left VM that appt with Leticia Johanny on 07/17 needs r/s. Not active on [facility]. Will try reaching again. documented in this encounterWvumedicine [facility] Hospital01-27-2023 Miscellaneous Notes* Telephone Encounter - Rachel Chery MD - 06/12/2022 6:33 PM EST The following approved medication requests have been transmitted electronically. Requested Prescriptions Signed Prescriptions Disp Refills metoprolol tartrate, short acting, (LOPRESSOR) 25 mg tablet 60 tablet 5 Sig: Take 1 tablet by mouth twice daily. Authorizing Provider: RACHEL CHERY MD * Telephone Encounter - Margo Deng RN - 06/12/2022 8:52 AM EST [facility] reports they received the Rx from pcp for metoprolol 25 mg daily. Reports previouslyDr. Anibal had prescribed it as twice daily, for the past year. Asking pcp to send new Rx if you prefer patient to take it twice daily. documented in this encounterWvumedicine [facility] Hospital01-27-2023 Miscellaneous Notes* Telephone Encounter - Layla Horner LPN - 06/12/2022 8:42 AM EST Spoke with pt and information listed below given. Pt verbalizes understanding. Pt has a sore on buttocks left side. Apt booked for this and med check. Pt declined an earlier apt.Needs time to set up transportation. Pt did not set up further apts. Asking if he needs to have pain management fill his Lyrica. Will discuss at apt . Layla Horner LPN * Telephone Encounter - Rachel Chery MD - 06/11/2022 10:54 PM EST Isha Potter with 3 months Needs 3 month follow ups scheduled for next 2 appointments alternating with and Mike The following approved medication requests have been transmitted electronically. Requested Prescriptions Signed Prescriptions Disp Refills buPROPion SR (ZYBAN SR; WELLBUTRIN SR) 150 mg 12 hr tablet 60 tablet 5 Sig: Take 1 tablet by mouth twice daily. Authorizing Provider: RACHEL CHERY leflunomide (ARAVA) 10 mg tablet 30 tablet 5 Sig: Take 1 tablet by mouth once daily. Authorizing Provider: RACHEL CHERY atorvastatin (LIPITOR) 80 mg tablet 30 tablet 5 Sig: Take 1 tablet by mouth once daily. Authorizing Provider: RACHEL CHERY amitriptyline (ELAVIL) 75 mg tablet 30 tablet 5 Sig: Take 1 tablet by mouth daily at bedtime. Authorizing Provider: RACHEL CHERY tamsulosin (FLOMAX) 0.4 mg 60 capsule 5 Sig: Take 2 capsules by mouth once daily. Authorizing Provider: RACHEL CHERY ezetimibe (ZETIA) 10 mg tablet 30 tablet 5 Sig: Take 1 tablet by mouth once daily. Authorizing Provider: RACHEL CHERY QUEtiapine (SEROQUEL) 25 mg tablet 60 tablet 5 Sig: Take 1 tablet by mouth twice daily. Authorizing Provider: RACHEL CHERY Pregabalin (LYRICA) 200 mg capsule 90 capsule 2 Sig: Take 1 capsule by mouth three times daily for 90 days. Authorizing Provider: RACHEL CHERY amLODIPine (NORVASC) 10 mg tablet 30 tablet 5 Sig: Take 1 tablet by mouth once daily. Authorizing Provider: RACHEL CHERY sertraline (ZOLOFT) 50 mg tablet 30 tablet 5 Sig: Take 1 tablet by mouth once daily. Authorizing Provider: RACHEL CHERY pantoprazole DR (PROTONIX) 40 mg tablet 30 tablet 5 Sig: Take 1 tablet by mouth once daily. Authorizing Provider: RACHEL CHERY metoprolol tartrate, short acting, (LOPRESSOR) 25 mg tablet 30 tablet 5 Sig: Take 1 tablet by mouth once daily. Authorizing Provider: RACHEL CHERY metFORMIN (GLUCOPHAGE) 1,000 mg tablet 60 tablet 5 Sig: Take 1 tablet by mouth twice daily with meals. Authorizing Provider: RACHEL CHERY DULoxetine (CYMBALTA) 60 mg capsule 30 capsule 5 Sig: Take 1 capsule by mouth once daily. Authorizing Provider: RACHEL CHERY insulin needles, DISPOSABLE, (ULTICARE PEN NEEDLE) 31 gauge x 5/16 200 Each 4 Sig: Inject 1 Each subcutaneously as directed. Authorizing Provider: RACHEL CHERY MD * Telephone Encounter - Layla Horner LPN - 06/11/2022 9:14 AM EST Marni with [facility] called and wants to request for pt Insulin needles. Last request was 05-31-22 but for 100 only This is 1 box and last s pat for 20 days. Requesting 2 boxes (200) will last for40 days. * Telephone Encounter - M Bahman Deng RN - 06/11/2022 8:54 AM EST [facility] requesting the pended refills. They are aware the lyrica is a little early but they are trying to do med sync. The metformin, cymbalta, amlodipine, sertraline, pantoprazole, and metoprolol, were all originally prescribed by a provider at [facility], but is not seeing patient anymore. Not sure what lyrica disp/refill you want, so please look at that one. Patient has been identified by name and date of : Yes, Provider Dr. Chery Date 06-11-22 Time9:09 am Pharmacy phones for refill(s): Requested Prescriptions Pending Prescriptions Disp Refills buPROPion SR (ZYBAN SR; WELLBUTRIN SR) 150 mg 12 hr tablet 60 tablet 5 Sig: Take 1 tablet by mouth twice daily. leflunomide (ARAVA) 10 mg tablet 30 tablet 5 Sig: Take 1 tablet by mouth once daily. atorvastatin (LIPITOR) 80 mg tablet 30 tablet 5 Sig: Take 1 tablet by mouth once daily. amitriptyline (ELAVIL) 75 mg tablet 30 tablet 5 Sig: Take 1 tablet by mouth daily at bedtime. tamsulosin (FLOMAX) 0.4 mg 60 capsule 5 Sig: Take 2 capsules by mouth once daily. ezetimibe (ZETIA) 10 mg tablet 30 tablet 5 Sig: Take 1 tablet by mouth once daily. QUEtiapine (SEROQUEL) 25 mg tablet 60 tablet 5 Sig: Take 1 tablet by mouth twice daily. Pregabalin (LYRICA) 200 mg capsule 84 capsule 1 Sig: Take 1 capsule by mouth three times daily for 56 days. amLODIPine (NORVASC) 10 mg tablet 30 tablet 5 Sig: Take 1 tablet by mouth once daily. sertraline (ZOLOFT) 50 mg tablet 30 tablet 5 Sig: Take 1 tablet by mouth once daily. pantoprazole DR (PROTONIX) 40 mg tablet 30 tablet 5 Sig: Take 1 tablet by mouth once daily. metoprolol tartrate, short acting, (LOPRESSOR) 25 mg tablet 30 tablet 5 Sig: Take 1 tablet by mouth once daily. metFORMIN (GLUCOPHAGE) 1,000 mg tablet 60 tablet 5 Sig: Take 1 tablet by mouth twice daily with meals. DULoxetine (CYMBALTA) 60 mg capsule 30 capsule 5 Sig: Take 1 capsule by mouth once daily. Date of last office visit with pcp: 05-27-22. Next appt: none Last 2 Encounter Wt Readings: Date: Wt: 04/14/2022 135.2 kg (298 lb) 01/30/2022 127.5 kg (281 lb) Previous labs/tests for medication: Diabetes: Hemoglobin A1C (%) Date Value 01/30/2022 7.4 Cholesterol: HDL Cholesterol (mg/dL) Date Value 01/30/2022 26 LDL Cholesterol (mg/dL) Date Value 01/30/2022 20 ALT (U/L) Date Value 01/30/2022 14 Non HDL Cholesterol (mg/dL) Date Value 01/30/2022 46 Blood Pressure: BUN (mg/dL) Date Value 04/24/2022 15 Sodium (mmol/L) Date Value 04/24/2022 138 Last 1 Encounter BP Readings: Date: BP: 05/27/2022 112/64 Blood Counts: WBC (k/uL) Date Value 01/30/2022 8.12 RBC (m/uL) Date Value 01/30/2022 4.27 Hematocrit (%) Date Value 01/30/2022 32.4 Hemoglobin (g/dL) Date Value 01/30/2022 11.0 Platelet Count (k/uL) Date Value 01/30/2022 248 Liver Function: ALT (U/L) Date Value 01/30/2022 14 AST (U/L) Date Value 01/30/2022 13 Please advise. Thank you. Margo Deng RN documented in this encounterWvumed[facility]01-11-2023 Instructions* Patient Instructions* Rachel Chery MD - 05/27/2022 6:02 PM EST Try baby wash and/or shampoo to see if that helps with skin. Lotion right after bathing and as needed for dry skin. Can apply Vaseline after the lotion. Might need Cerave type lotion to hands (and elsewhere) to help skin be more flexible. Steroid can help with this too. Can dissolve the sucralfate if too hard to swallow with just applesauce. Never swallow the tablet with just water. documented in this encounterWvumedicine [facility]01-11-2023 History of Present illness Narrative* Rachel Chery MD - 05/27/2022 5:21 PM EST This note was created using [employer]. Subjective Berta Jaramillo is a 57 year old male. Patient presents with: Established Patient F/U 3 Month SUBJECTIVE: Berta Jaramillo is a 57 year old year old gentleman here today for 3 month follow up appointment for review of medical conditions. Had seen Mike twice. Has issues with hard time holding on to things. Has neuropathy that seems to be getting worse. Gets shaky. Has problems with eczema. Was on shots that had helped but those were stopped. Insurance did not cover for the med or the appointment, so he was stuck with the bill. Dupixent ([facility]). Tryingto pay bill so can continues getting treatment in [place]. Follows with Dr. Rosa for chronic back pain. Noted that steroid injection in back had helped for hands. Noted issues with hair loss. Has noted bumps in head. Scabs too. Noted that when sugar drops has nausea and feels like throwing up. Feels low when gets to 80s. Sometimes sugars up to 200s. Issues with vertigo at times. On meds for GI issues. Following with Coral Martinez CNP for DM. PAST MEDICAL HISTORY Diagnosis Date Atopic eczema Chronic anemia Depression Depression Diabetes mellitus (HCC) Essential hypertension Generalized anxiety disorder Hypercholesterolemia Neuropathy Current Outpatient Medications Medication Sig leflunomide (ARAVA) 10 mg tablet Take 1 tablet by mouth once daily. atorvastatin (LIPITOR) 80 mg tablet Take 1 tablet by mouth once daily. Pregabalin (LYRICA) 200 mg capsule Take 1 capsule by mouth three times daily for 56 days. Do not start before May 06, 2022. meclizine (ANTIVERT) 25 mg tab Take 1 tablet by mouth every 6 hours as needed (dizziness). sucralfate (CARAFATE) 1 gram tablet Take 1 g by mouth four times daily. busPIRone (BUSPAR) 5 mg tablet Take 1 tablet by mouth three times daily. buPROPion SR (ZYBAN SR; WELLBUTRIN SR) 150 mg 12 hr tablet Take 1 tablet by mouth twice daily. amitriptyline (ELAVIL) 75 mg tablet Take 1 tablet by mouth daily at bedtime. tamsulosin (FLOMAX) 0.4 mg Take 2 capsules by mouth once daily. ezetimibe (ZETIA) 10 mg tablet Take 1 tablet by mouth once daily. QUEtiapine (SEROQUEL) 25 mg tablet Take 1 tablet by mouth twice daily. insulin aspart U-100 (NOVOLOG FLEXPEN U-100 INSULIN) 100 unit/mL (3 mL) Inject subcutaneously: 8 units breakfast, 4 units lunch, 4 units dinner, 2 units with 8 pm snack (if eating) PLUS Sliding zbbvo300=9, 151-200-1 units, 201-250=2 units, 251-300=3 units, 301-350=4 units, 351-400=5 units based onpre meal blood sugar only as needed. TRESIBA FLEXTOUCH U-100 100 unit/mL (3 mL) injection pen Inject 40 Units subcutaneously daily at bedtime. amLODIPine (NORVASC) 10 mg tablet Take 10 mg by mouth once daily. sertraline (ZOLOFT) 50 mg tablet Take 50 mg by mouth once daily. lisinopril (ZESTRIL, PRINIVIL) 10 mg tablet Take 10 mg by mouth once daily. pantoprazole DR (PROTONIX) 40 mg tablet BELBUCA [address] 75 mcg between cheek and gum q 12 HR. metoprolol tartrate, short acting, (LOPRESSOR) 25 mg tablet metFORMIN (GLUCOPHAGE) 1,000 mg tablet DULoxetine (CYMBALTA) 60 mg capsule Take 60 mg by mouth once daily. ULTICARE PEN NEEDLE 31 gauge x 516 dupilumab (DUPIXENT PEN) 300 mg/2 mL pen Inject subcutaneously every 2 weeks. (Patient not taking: No sig reported) Cholecalciferol, Vitamin D3, 50 mcg (2,000 unit) cap Take by mouth. aspirin 81 mg cap Take by mouth once daily. Blood-Glucose Meter,Continuous (DEXCOM G6 COTTON WEIGHER) misc Use to check blood sugar at least four (4)times daily. Blood-Glucose Transmitter (DEXCOM G6 TRANSMITTER) kimberly Apply new transmitter every 90 days. Clean transmitter with an alcohol swab with each sensor change. Blood-Glucose Sensor (DEXCOM G6 SENSOR) kimberly Apply new sensor every ten (10) days to abdomen. (Patient not taking: No sig reported) No current facility-administered medications for this visit. Review of Systems Objective BP 112/64 Pulse 80 Temp 36.3 C (97.3 F) Resp 18 SpO2 92% Physical Exam Vitals reviewed. Constitutional: Appearance: Normal appearance. He is obese. Eyes: Conjunctiva/sclera: Conjunctivae normal. Cardiovascular: Rate and Rhythm: Normal rate and regular rhythm. Heart sounds: Normal heart sounds. Pulmonary: Effort: Pulmonary effort is normal. Breath sounds: Normal breath sounds. Skin: General: Skin is warm and dry. Neurological: General: No focal deficit present. Mental Status: He is alert and oriented to person, place, and time. Comments: In motorized wheelchair Psychiatric: Mood and Affect: Mood normal. Behavior: Behavior normal. Thought Content: Thought content normal. Judgment: Judgment normal. Hemoglobin A1C (%) Date Value 01/30/2022 7.4 Assessment and Plan Encounter Diagnosis ICD-10-CM 1. Seborrheic dermatitis L21.9 2. Hair thinning L65.9 not sure if from seborrheic dermatitis or from Dupixent that was given for hand eczema. 3. Hand eczema L30.9 4. Essential hypertension I10 5. Type 2 diabetes mellitus with other specified complication, with long-term current use of insulin ([facility]) E11.69 Z79.4 6. Nausea and vomiting, unspecified vomiting type R11.2 57 year old gentleman here to be formally established with me. History and medications reviewed. Epic updated as needed Above issues addressed with patient. Patient involved in shared decision making for management of medical issues. Further evaluation and treatment as indicated. Follows with Endocrinology [facility] for DM. Refills taken care of and meds adjusted as indicated after reviewed history, exam and labs. Health Maintenance reviewed. Updated record and/or ordered tests as recorded. Encouraged on efforts at healthy diet and regular exercise and adequate sleep. Needs to keep working on diet and exercise with lifestyle changes for effective weight loss as wellas control of DM, and control of BP and lipids. Rachel Chery MD documented in this encounterW[facility]12-27-2022 Miscellaneous Notes* Telephone Encounter - Alejandra Montalvo LPN - 05/12/2022 3:40 PM EST PATIENT NOTIFIED OF SAME. * Telephone Encounter - Rachel Chery MD - 05/12/2022 1:33 PM EST Noted has seen Mike and has new patient appointment with mo May. The following approved medication requests have been transmitted electronically. Requested Prescriptions Signed Prescriptions Disp Refills buPROPion SR (ZYBAN SR; WELLBUTRIN SR) 150 mg 12 hr tablet 30 tablet 1 Sig: Take 1 tablet by mouth twice daily. Authorizing Provider: RACHEL CHERY leflunomide (ARAVA) 10 mg tablet 30 tablet 1 Sig: Take 1 tablet by mouth once daily. Authorizing Provider: RACHEL CHERY atorvastatin (LIPITOR) 80 mg tablet 30 tablet 1 Sig: Take 1 tablet by mouth once daily. Authorizing Provider: RACHEL CHERY amitriptyline (ELAVIL) 75 mg tablet 30 tablet 1 Sig: Take 1 tablet by mouth daily at bedtime. Authorizing Provider: RACHEL CHERY tamsulosin (FLOMAX) 0.4 mg 60 capsule 1 Sig: Take 2 capsules by mouth once daily. Authorizing Provider: RACHEL CHERY ezetimibe (ZETIA) 10 mg tablet 30 tablet 1 Sig: Take 1 tablet by mouth once daily. Authorizing Provider: RACHEL CHERY QUEtiapine (SEROQUEL) 25 mg tablet 60 tablet 1 Sig: Take 1 tablet by mouth twice daily. Authorizing Provider: RACHEL CHERY MD * Telephone Encounter - Fariba Meenu ANGEL - 05/12/2022 9:08 AM EST Patient has been identified by name and date of : Yes, Provider pcp Date 05/12/2022 Time 912 am Patient phones for refill(s): Requested Prescriptions Pending Prescriptions Disp Refills buPROPion SR (ZYBAN SR; WELLBUTRIN SR) 150 mg 12 hr tablet Sig: Take 1 tablet by mouth twice daily. leflunomide (ARAVA) 10 mg tablet Sig: Take 1 tablet by mouth once daily. atorvastatin (LIPITOR) 80 mg tablet Sig: Take 1 tablet by mouth once daily. amitriptyline (ELAVIL) 75 mg tablet Sig: Take 1 tablet by mouth daily at bedtime. tamsulosin (FLOMAX) 0.4 mg Sig: Take 1 capsule by mouth once daily. previous provider rx 2 at bedtime ezetimibe (ZETIA) 10 mg tablet Sig: Take 1 tablet by mouth once daily. QUEtiapine (SEROQUEL) 25 mg tablet Sig: Take 1 tablet by mouth twice daily. Date of last office visit in primary care: 04/24/2022 , has appt 05/27/2022 Last 2 Encounter Wt Readings: Date: Wt: 04/14/2022 135.2 kg (298 lb) 01/30/2022 127.5 kg (281 lb) Previous labs/tests for medication: Cholesterol: HDL Cholesterol (mg/dL) Date Value 01/30/2022 26 LDL Cholesterol (mg/dL) Date Value 01/30/2022 20 ALT (U/L) Date Value 01/30/2022 14 Non HDL Cholesterol (mg/dL) Date Value 01/30/2022 46 Blood Pressure: BUN (mg/dL) Date Value 04/24/2022 15 Sodium (mmol/L) Date Value 04/24/2022 138 Last 1 Encounter BP Readings: Date: BP: 04/24/2022 102/52 Please advise. Thank you. Fariba Corrigan LPN documented in this encounterWvumedicine [facility]12-19-2022 Miscellaneous Notes* Telephone Encounter - Alejandra Montalvo LPN - 05/04/2022 10:45 AM EST Patient is scheduled 05/27/[address] Chery. Is scheduled with Dr. Amezquita 10/2022. PATIENT NOTIFIED OF SAME. * Telephone Encounter - Mike Candelario APRN.CNS - 2022 4:14 PM EST Please let him know he needs to schedule an appointment with Rachel Chery MD to establish care in 3 to 6 months. Schedule appointment with sleep medicine is recommended. Recheck lab work at next visit. Component Latest Ref Rng & Units 04/24/2022 Glucose 74 - 99 mg/dL 204 (H) BUN 9 - 24 mg/dL 15 Creatinine 0.73 - 1.22 mg/dL 1.02 Sodium 136 - 144 mmol/L 138 Potassium 3.7 - 5.1 mmol/L 5.3 (H) Chloride 97 - 105 mmol/L 104 CO2 22 - 30 mmol/L 24 Anion Gap 9 - 18 mmol/L 10 Calcium 8.5 - 10.2 mg/dL 9.0 eGFR >=60 mL/min/1.73m 87 documented in this encounterWvumed[facility]12-09-2022 History of Present illness Narrative* Mike Candelario APRN.CNS - 04/24/2022 11:30 AM EST SUBJECTIVE: PNEUMOCOCCAL(1 - PCV) Never done URINE ALBUMIN:CREATININE RATIO Never done DILATED RETINAL EXAM Never done DIABETIC FOOT EXAM Never done ANNUAL PCP TEAM CHRONIC DISEASE VISIT Never done DTAP,TDAP,TD(1 - Tdap) Never done SHINGRIX VACCINE(1 of 2) Never done COLORECTAL CANCER SCREENING Never done LUNG CANCER SCREENING Never done COVID-19 VACCINE(4 - Booster for Moderna series) due on 12/02/2021 HEPATITIS B(2 of 3 - 19+ 3-dose series) due on 02/27/2022 HPI Berta Jaramillo is a 56 year old male. PMH significant for ACTIVE PROBLEM LIST Neuropathy Essential Hypertension Diabetes Mellitus (Hcc) Depression Atopic Eczema History of Rheumatoid Arthritis HPI excerpted from previous visit: Presents today to establish care with Rachel Chery MD No prior CC visits. Previous PCP: Prosper Guzmán,[facility] [address] [place] [address] WILD [place], [employer]TENSION PROFESSOR-C [address] [place] [address] States Wild was coming to his facility - assisted living in [place]. Was not a good match so changing providers. States she stopped seeing him when he changed to CC. Last seen: September 2021 Labwork: Jul 2021 ER/Hospitalization: Dec 2020 [facility] vomiting, ANDRE Outside records: medications only; no medical records Pain management Dr Rosa for peripheral neuropathy. Taking belbuca and pregabalin. Belbuca per Dr Rosa. Pregaballin per Wild [place]. States he was seen by winch runner in [facility], does not recall who, for RA. Has seen a bacteriology research assistant, but not currently. States billing concern. DIABETES MELLITUS: Notes has not been well controlled. Notes FBS today at 186. Notes BS dropping inthe evenings to 50s. Taking SSI and 40 units Tresiba at bedtime. Does feel when BS is low.Without report of S/S. Notes checking BS 4 times per day. Had CGM but not currently, interested in resuming. Patient's last HgA1C was Hemoglobin A1C (%) Date Value 01/30/2022 7.4 ) Hyperlipidemia. Mr. Jaramillo reports doing well on current therapy . His most recent lipid panels are: Cholesterol, Total (mg/dL) Date Value 01/30/2022 72 HDL Cholesterol (mg/dL) Date Value 01/30/2022 26 LDL Cholesterol (mg/dL) Date Value 01/30/2022 20 Triglyceride (mg/dL) Date Value 01/30/2022 129 HTN: Without report of headache, chest pain, palpitations, dyspnea, peripheral edema, orthopnea, fatigue, and PND. No data found for this vital: BP GERD: no current complaints Anxiety/depression: notes feeling depressed on current medications, no voiced SI, interested in seeing a counselor. States little mobility, primarily sits in scooter due to peripheral neuropathy which is aggravated by walking. Can walk short distances but avoids due to pain. Presents today for emergency department follow-up visit. He was seen at [facility] on April 10 April 11. He presented on April 10, 2022 with hyperglycemia nausea and vomiting and dizziness. He reported symptoms present for 2days prior to arrival. Exam showed positive Potosi-Hallpike maneuver and cerumen impaction treated with Debrox.. CBC showed mild anemia hemoglobin 10.9hematocrit 32.4 potassium 5.6 BUN 21 creatinine 1.22. Noted to have urinary retention and catheter was placed. No signs of infection on testing. He was advised to follow-up with urology. He was advised to maintain adequate hydration. He subsequently returned to emergency department for blood noted in catheter. Notes indicate concern for sleep apnea. He was seen by Usama Bryan on April 14, 2022 for retention of urine. He was treated with nitrofurantoin. Catheter was removed and he was unable to void. He declined having Worthy catheter reinserted. He declined self-catheterization. He was advised to follow-up with urology if unable to urinate on his own. Presents today without escort. Notes he is currently in assisted living. He reports history of rheumatoid arthritis not currently seeing winch runner. Today reports feeling about the same. Dizziness: yes, intermittent. Not taking meclizine Urine output: states now no trouble with urination Notes ears cleaned out at ER. SINDHU: no prior diagnosis Sleep study: none reported STOP BANG Questionnaire 1. Snoring Do you snore loudly (louder than talking or loud enough to be heard through closed doors)? YES 2. Tired Do you often feel tired, fatigued, or sleepy during daytime? YES 3. Observed Has anyone observed you stop breathing during your sleep? NO 4. Blood Pressure Do you have or are you being treated for high blood pressure? YES 5. BMI BMI more than 35 kg/m2? YES 6. Age Age over 50 yr old? YES 7. Neck circumference Neck circumference greater than 40 cm? YES 49.5 cm 8. Gender Gender male? YES * Neck circumference is measured by staff High risk of SINDHU: answering yes to three or more items Low risk of SINDHU: answering yes to less than three items Review of Systems Constitutional: Negative. Genitourinary: Positive for difficulty urinating. Neurological: Positive for dizziness. Objective BP 102/52 Pulse 73 Resp 16 SpO2 95% Physical Exam Vitals and nursing note reviewed. Constitutional: Appearance: Normal appearance. HENT: Head: Normocephalic and atraumatic. Eyes: Conjunctiva/sclera: Conjunctivae normal. Neck: Thyroid: No thyromegaly. Vascular: Normal carotid pulses. No JVD. Cardiovascular: Rate and Rhythm: Normal rate and regular rhythm. Heart sounds: Normal heart sounds. Pulmonary: Effort: Pulmonary effort is normal. Breath sounds: Normal breath sounds. Abdominal: General: Bowel sounds are normal. Palpations: Abdomen is soft. Skin: General: Skin is warm and dry. Neurological: General: No focal deficit present. Mental Status: He is alert. ALLERGIES No Known Allergies Medications nitrofurantoin monohydrate and macrocrystal (MACROBID) 100 mg capsule Take 1 capsule by mouth twicedaily for 10 days. insulin aspart U-100 (NOVOLOG FLEXPEN U-100 INSULIN) 100 unit/mL (3 mL) Inject subcutaneously: 8 units breakfast, 4 units lunch, 4 units dinner, 2 units with 8 pm snack (if eating) PLUS Sliding =8, 151-200-1 units, 201-250=2 units, 251-300=3 units, 301-350=4 units, 351-400=5 units based onpre meal blood sugar only as needed. TRESIBA FLEXTOUCH U-100 100 unit/mL (3 mL) injection pen Inject 40 Units subcutaneously daily at bedtime. amLODIPine (NORVASC) 10 mg tablet Take 10 mg by mouth once daily. sertraline (ZOLOFT) 50 mg tablet Take 50 mg by mouth once daily. leflunomide (ARAVA) 10 mg tablet Take 10 mg by mouth once daily. lisinopril (ZESTRIL, PRINIVIL) 10 mg tablet Take 10 mg by mouth once daily. pantoprazole DR (PROTONIX) 40 mg tablet BELBUCA [address] 75 mcg between cheek and gum q 12 HR. QUEtiapine (SEROQUEL) 25 mg tablet Take 25 mg by mouth. Unknown frequency buPROPion SR (ZYBAN SR; WELLBUTRIN SR) 150 mg 12 hr tablet Take 150 mg by mouth twice daily. metoprolol tartrate, short acting, (LOPRESSOR) 25 mg tablet metFORMIN (GLUCOPHAGE) 1,000 mg tablet atorvastatin (LIPITOR) 80 mg tablet Take 80 mg by mouth once daily. sucralfate (CARAFATE) 1 gram tablet Take 1 g by mouth four times daily. tamsulosin (FLOMAX) 0.4 mg Take 0.4 mg by mouth once daily. ezetimibe (ZETIA) 10 mg tablet Take 10 mg by mouth once daily. amitriptyline (ELAVIL) 75 mg tablet Take 75 mg by mouth daily at bedtime. DULoxetine (CYMBALTA) 60 mg capsule Take 60 mg by mouth once daily. ULTICARE PEN NEEDLE 31 gauge x 5/16 Cholecalciferol, Vitamin D3, 50 mcg (2,000 unit) cap Take by mouth. aspirin 81 mg cap Take by mouth once daily. Blood-Glucose Meter,Continuous (DEXCOM G6 COTTON WEIGHER) misc Use to check blood sugar at least four (4)times daily. Blood-Glucose Transmitter (DEXCOM G6 TRANSMITTER) kimberly Apply new transmitter every 90 days. Clean transmitter with an alcohol swab with each sensor change. busPIRone (BUSPAR) 5 mg tablet Take 1 tablet by mouth three times daily. [START ON 05/06/2022] Pregabalin (LYRICA) 200 mg capsule Take 1 capsule by mouth three times daily for 56 days. Do not start before May 06, 2022. dupilumab (DUPIXENT PEN) 300 mg/2 mL pen Inject subcutaneously every 2 weeks. (Patient not taking: No sig reported) Blood-Glucose Sensor (DEXCOM G6 SENSOR) kimberly Apply new sensor every ten (10) days to abdomen. (Patient not taking: No sig reported) PAST MEDICAL HISTORY Diagnosis Date Atopic eczema Chronic anemia Depression Depression Diabetes mellitus (HCC) Essential hypertension Generalized anxiety disorder Hypercholesterolemia Neuropathy Social History Tobacco Use Smoking status: Every Day Packs/day: 1.00 Years: 44.00 Pack years: 44.00 Types: Cigarettes Smokeless tobacco: Never Vaping Use Vaping Use: Never used Substance Use Topics Alcohol use: Never Drug use: Never ASSESSMENT/PLAN: 1. Vertigo - ICD9: 780.4, ICD10: R42 (primary diagnosis) Improved. As needed meclizine - MECLIZINE 25 MG TABLET 2. Urine retention - ICD9: 788.20, ICD10: R33.9 follow up with urology if recuurent ER for severe symptoms 3. Hyperkalemia - ICD9: 276.7, ICD10: E87.5 in ER, check labs today - BASIC METABOLIC PNL 4. Daytime sleepiness - ICD9: 780.54, ICD10: R40.0 5. Snoring - ICD9: 786.09, ICD10: R06.83 - POLYSOMNOGRAM (PSG) - CONSULT TO SLEEP MEDICINE - ADULT 6. Essential hypertension - ICD9: 401.9, ICD10: I10 controlled - Continue current medication(s) - Encouraged dietary sodium restriction/DASH diet - Recommended regular aerobic exercise. - POLYSOMNOGRAM (PSG) - CONSULT TO SLEEP MEDICINE - ADULT 7. Limited mobility - ICD9: V49.89, ICD10: Z74.09 - POLYSOMNOGRAM (PSG) - CONSULT TO SLEEP MEDICINE - ADULT 8. Cognitive deficits - ICD9: 294.9, ICD10: R41.89 - POLYSOMNOGRAM (PSG) - CONSULT TO SLEEP MEDICINE - ADULT 9. History of rheumatoid arthritis - ICD9: V13.4, ICD10: Z87.39 - CONSULT TO RHEUM/IMMUN DISEASE 10. Type 2 diabetes mellitus with other specified complication, with long-term current use of insulin (HCC) - ICD9: 250.80, V58.67, ICD10: E11.69, Z79.4 - PREGABALIN 200 MG CAPSULE 11. Peripheral polyneuropathy - ICD9: 356.9, ICD10: G62.9 - PREGABALIN 200 MG CAPSULE Mike Candelario APRN.UNATTENDED GROUND SENSOR SPECIALIST Labs today Request OSH records Establish with MD Mike Noel APRN.CNS . Medical Decision Making: Problems: Moderate: New problem with uncertain prognosis and Acute illness with systemic symptoms Data: Unique test(s) ordered: 2 Independent interpretation of test from other physician/QHCP Risk: Moderate: Drug management Medical Decision Making Level: 4 - Moderate documented in this encounterWvumed[facility]11-29-2022 History of Present illness Narrative* Jessica Mckeon MRB ENGINEER - 04/14/2022 5:05 PM EST CC Trial of Void HPI: Berta Jaramillo is a 56 year old male. [address] The patient is here now for a TOV and worthy catheter removal. Procedure: Perform a TOV. Bladder filled through worthy with 200 mL of sterile water removed fluid from balloonand the worthy was removed with catheter intact and patient voided 0 mL. Pt was not able to empty his bladder on own without straining. The indwelling worthy was removed without difficulty. The patienttolerated the procedure well. Patient is adamant that he does not want a worthy catheter reinserted.Reports having no desire to self-catheter. Usama Bryan PA-C notified. Assessment/Plan: > Worthy catheter removal with TOV. RTC if unable to urinate on his own. Jessica Mckeon LPN * Jessica Mckeon LPN - 04/14/2022 4:34 PM EST Verified name and date of . Patient reports medications being taken the best of his knowledge but is uncertain of some. Jessica Mckeon LPN documented in this encounterWvumedicine [facility]11-14-2022 Miscellaneous Notes* Telephone Encounter - Rachel Chery MD - 03/30/2022 7:27 PM EST The following approved medication requests have been transmitted electronically. Requested Prescriptions Signed Prescriptions Disp Refills insulin aspart U-100 (NOVOLOG FLEXPEN U-100 INSULIN) 100 unit/mL (3 mL) 15 mL 3 Sig: Inject subcutaneously: 8 units breakfast, 4 units lunch, 4 units dinner, 2 units with 8 pm snack (if eating) PLUS Sliding scale 150=0, 151-200-1 units, 201-250=2 units, 251-300=3 units, 301-350=4 units, 351-400=5 units based on pre meal blood sugar only as needed. Authorizing Provider: RACHEL CHERY MD * Telephone Encounter - Wendy Gibbs - 03/30/2022 3:00 PM EST Patient has been identified by name and date of : Yes Last office visit in this department: 02/11/2022 RX INSTRUCTIONS: Patient aware RX will be sent to pharmacy. No need to notify patient. Patient phones requesting refills as follows: Requested Prescriptions Pending Prescriptions Disp Refills insulin aspart U-100 (NOVOLOG FLEXPEN U-100 INSULIN) 100 unit/mL (3 mL) 15 mL 0 Sig: Inject subcutaneously: 8 units breakfast, 4 units lunch, 4 units dinner, 2 units with 8 pm snack (if eating) PLUS Sliding scale 150=0, 151-200-1 units, 201-250=2 units, 251-300=3 units, 301-350=4 units, 351-400=5 units based on pre meal blood sugar only as needed. Please review and advise. Wendy Gibbs documented in this encounterWvumedicine [facility]10-26-2022 Miscellaneous Notes* Telephone Encounter - Alejandra Montalvo LPN - 03/11/2022 1:42 PM EDT LEFT MESSAGE FOR PATIENT TO CALL OFFICE. * Telephone Encounter - Fany Betancourt Ma - 03/09/2022 10:53 AM EDT Left message for patient to call office * Telephone Encounter - Flori El APRN.CNP - 03/07/2022 3:19 PM EDT This can be treated in primary care. May take a few months before he can get a derm appointment. Recommend scheduling appointment with Mike Candelario or Dr. Ed El APRN.CNP * Telephone Encounter - Libby Gibbs - 03/06/2022 11:00 AM EDT Patient requesting referral to derm for hands that are cry and crack. Please call patient. documented in this encounterWvumedicine [facility]09-28-2022 History of Present illness Narrative* Phyllis Haskins LPN - 02/11/2022 11:23 AM EDT Images from the original note were not included. * Coral Martinez APRN.DAWIT - 02/11/2022 11:00 AM EDT Images from the original note were not included. NEW CONSULT OFFICE PROGRESS NOTE Reason for Consultation: DM Type 2 Referring Physician: SELF My final recommendations will be communicated back to the requesting physician by way of shared Medical record or letter via US mail. HISTORY OF PRESENT ILLNESS; Berta Jaramillo is a 56 year old MALE is presenting as a new patient to me regarding DM Type 2. He was initially diagnosed with diabetes in 1986. States poorly controlled for the majority of his time with DM2 Reports neuropathy [facility] He will eat off their menu, but if doesn't like the food they are offering will replace with cereal or other food. He does shop for himself and will buy cereal -raisinbran OR chocolate cheerios) PB OR egg sandwich which he makes in his apartment - drinks regular kelly nia/OJ He eats at 8 am, 12 noon, dinner is at 3 pm, then patient will have nightly snack at 8 pm He is taking 42 units of basal and 6 units plus SS#2 with B/L/D, no snack insulin at this time Wears FREESTYLE MANISHA for CGM Is not taking B12 - with METFORMIN Use, has been on metformin for last 15 yeas Never any other oral DM medication The patient reports the following microvascular complications: peripheral neuropathy. Berta has no know macrovascular complications of diabetes.. DM Education No Knows how to carb count No DIETARY HISTORY: Breakfast: cereal (raisin bran w milk) OJ and coffee Lunch pork chips/mashed potatoes OR saurkraut w pork OR or will skip if doesn't like (Patient will eat cereal if skips ASST LIVING meal) Dinner Asst living menu Snacks : 8 pm, OJ, OR regular kelly nia, chocolate, cereal Drinks OJ, coffee or regular kelly nia, very little water Exercise: none CURRENT DM MEDS TRESIBA 42 units (reduced 6 days ago) METFORMIN 1000 bid (15 years) HUMALOG 6-6-6 SS#2 SMBG Type of Monitor: Other Frequency of Monitorin times a day Hypoglycemia: yes mostly mornings or overnight Diet: as per above Exercise: none DM REVIEW OF SYSTEMS Last Eye Exam : assisted living schedules Last Podiatry Exam: podiatry - asst living, has not seen for a while Reports severe neuropathy Cardiorespiratory: negative, denies chest pain, pressure Claudication: no Dyslipidemia: Yes, controlled on medication High Blood Pressure: Yes, controlled on medication CURRENT LABS Component Latest Ref Rng & Units 01/30/2022 Glucose 74 - 99 mg/dL 169 (H) BUN 9 - 24 mg/dL 11 Creatinine 0.73 - 1.22 mg/dL 0.94 Sodium 136 - 144 mmol/L 139 Potassium 3.7 - 5.1 mmol/L 5.1 Chloride 97 - 105 mmol/L 103 CO2 22 - 30 mmol/L 27 Anion Gap 9 - 18 mmol/L 9 eGFR >=60 mL/min/1.73m 96 Hemoglobin A1C 4.3 - 5.6 % 7.4 (H) Estimated Average Glucose mg/dL 166 PAST MEDICAL HISTORY Diagnosis Date Atopic eczema Depression Diabetes mellitus (HCC) Essential hypertension Neuropathy PAST SURGICAL HISTORY Procedure Laterality Date PAST SURGICAL HISTORY OF Right FAMILY HISTORY Problem Relation Age of Onset Diabetes Father Hypertension Father Diabetes Paternal Grandmother Diabetes Paternal Grandfather Social History Tobacco Use Smoking status: Every Day Packs/day: 1.00 Years: 44.00 Pack years: 44.00 Types: Cigarettes Smokeless tobacco: Never Substance Use Topics Alcohol use: Never Drug use: Never Current Outpatient Medications Medication Sig TRESIBA FLEXTOUCH U-100 100 unit/mL (3 mL) injection pen Inject 42 Units subcutaneously daily at bedtime. amLODIPine (NORVASC) 10 mg tablet sertraline (ZOLOFT) 50 mg tablet leflunomide (ARAVA) 10 mg tablet lisinopril (ZESTRIL, PRINIVIL) [address] (PROTONIX) 40 mg tablet BELBUCA 75 mcg buccal film QUEtiapine (SEROQUEL) 25 mg tablet buPROPion SR (ZYBAN SR; WELLBUTRIN SR) 150 mg 12 hr tablet metoprolol tartrate, short acting, (LOPRESSOR) 25 mg tablet metFORMIN (GLUCOPHAGE) 1,000 mg tablet atorvastatin (LIPITOR) 80 mg tablet Pregabalin (LYRICA) 200 mg capsule sucralfate (CARAFATE) 1 gram tablet tamsulosin (FLOMAX) 0.4 mg ezetimibe (ZETIA) 10 mg tablet amitriptyline (ELAVIL) 75 mg tablet DULoxetine (CYMBALTA) 60 mg capsule ULTICARE PEN NEEDLE 31 gauge x 5/16 dupilumab (DUPIXENT PEN) 300 mg/2 mL pen Inject subcutaneously every 2 weeks. Cholecalciferol, Vitamin D3, (VITAMIN D-3) 50 mcg (2,000 unit) cap Take by mouth. aspirin 81 mg cap Take by mouth. Blood-Glucose Meter,Continuous (DEXCOM G6 COTTON WEIGHER) [facility] Use to check blood sugar at least four (4)times daily. Blood-Glucose Transmitter (DEXCOM G6 TRANSMITTER) kimberly Apply new transmitter every 90 days. Clean transmitter with an alcohol swab with each sensor change. Blood-Glucose Sensor (DEXCOM G6 SENSOR) kimberly Apply new sensor every ten (10) days to abdomen. busPIRone (BUSPAR) 5 mg tablet Take 1 tablet by mouth three times daily. No current facility-administered medications for this visit. ALLERGIES Not on File REVIEW OF SYSTEMS - POSITIVES IN BOLD GENERAL:No weight loss, malaise or fevers HEENT:Negative for frequent or significant headaches, No changes in hearing or vision, no nose bleeds or other nasal problems NECK:Negative for lumps, goiter, pain and significant neck swelling RESPIRATORY: Negative for cough, hemoptysis, wheezing, COPD, dyspnea or shortness of breath CARDIOVASCULAR: Negative for chest pain, leg swelling, hypertension, CHF or palpitations PHYSICAL EXAMINATION: BP (P) 108/62 (BP Site: Left Arm, BP Position: Sitting, BP Cuff Size: Large Adult) Pulse (P) 78 General appearance: Well appearing, alert, in no acute distress, well-hydrated, well nourished. andmorbidly obese Skin: Skin color, texture, turgor normal, no suspicious rashes or lesions Head: Normocephalic, no masses, lesions, tenderness or abnormalities Eyes: HERIBERTO Neck: thyroid symmetric to inspection Acanthosis: none noted Extremities: Edema: mild bilaterally Neuro: Negative., Oriented X 3 ASSESSMENT: (E11.8) Type II diabetes mellitus with manifestations (HCC) (primary encounter diagnosis) Comment: FREESTYLE MANISHA DOWNLOADED AND REVIEWED WITH PATIENT DURING OV discussed with patient, increase fluids WATER adelita Wear FREESTYLE MANISHA back of arm, patient has placed on side of arm Recommend reducing basal to 40 units once daily HUMALOG to 10-6-6 plus 4 units with evening snack at 8 pm. Cont with SS#2 as needed with meals based on pre meal blood sugar Cont with metformin ADD B12 - 1000 mcg 1 tab daily with food Recommended diet: Low carbohydrate and Low saturated fat, low simple sugar, high fiber diet Exercise minimally 150 minutes per week, increase as tolerated. Adequate hydration - 1/2 body wgt in oz of water daily, unless fluid restriction applies. I instructed the patient to monitor blood sugars 4 times per day If blood sugars are persistently high or low, to call our office. Patient to continue to follow up with his PCP and with other consultants regarding his other medical problems. Plan: COMP METABOLIC PANEL, LIPID PANEL, NONFASTING, ALBUMIN/CREAT RATIO RND UR, HGB A1C Coral Martinez CNP documented in this encounterWvumedicine [facility]09-23-2022 Miscellaneous Notes* Telephone Encounter - Mike Candelario APRN.CNS - 02/06/2022 12:10 PM EDT ok * Telephone Encounter - Nidhi Wynn RN - 02/06/2022 11:27 AM EDT Rosie from [facility] calls and is asking for updated prescription to be sent to [facility] since Tresiba was increased on 02/05/2022. Nidhi Wynn RN documented in this encounterWvumedicine [facility] Hospital09-21-2022 Miscellaneous Notes* Telephone Encounter - Angelic Toro LPN - 02/04/2022 2:14 PM EDT Please chance rx to a formulary med. * Telephone Encounter - iNdhi Wynn RN - 02/04/2022 2:07 PM EDT Rosie from [facility] calls and states to her knowledge patient has not tried any of the medications listed. He has not been on any of them since he has been there. Nidhi Wynn RN * Telephone Encounter - Angelic Toro LPN - 02/04/2022 11:34 AM EDT Images from the original note were not included. Completing Pa for humalog. Please review PA questions. Message left to pts home number which is [facility] with info andrequested return call to [facility]. documented in this encounterWvumedicine [facility]09-20-2022 Miscellaneous Notes* Telephone Encounter - SHAY Jack - 02/03/2022 1:00 PM EDT No answer, VM full [facility] was unable to reach patient via phone. [facility] will send letter out to patient. documented in this encounterWvumedicine [facility] Hospital09-16-2022 Miscellaneous Notes* Telephone Encounter - Mike Candelario APRN.CNS - 01/30/2022 5:04 PM EDT rx sent. * Telephone Encounter - Franky Garcia RN - 01/30/2022 3:07 PM EDT Rosie from [facility] called in and reports the Tresiba and the Humalog both needed to be ordered as 15 ml, because they can't break up a box. The Buspar The Pt takes 1 pill 3 times a day so increased it to 90 pills for full 30 day prescription. She also reports that they cannot fill the Dexcomsince it goes through Medicare Part B, so she will call the where the Pt lives and have them call providers office to see where they would like to have the prescription sent to. documented in this encounterWvumedicine [facility]09-16-2022 History of Present illness Narrative* Mike Candelario, PLEATING MACHINE OPERATOR.UNATTENDED GROUND SENSOR SPECIALIST - 01/30/2022 11:00 AM EDT SUBJECTIVE: HEPATITIS B(1 of 3 - 3-dose series) Never done DEPRESSION SCREENING Never done HEPATITIS C SCREENING Never done HIV SCREENING Never done DTAP,TDAP,TD(1 - Tdap) Never done LIPID SCREEN Never done DIABETES SCREEN Never done COLORECTAL CANCER SCREENING Never done SHINGRIX VACCINE(1 of 2) Never done PROSTATE CANCER SCREENING DISCUSSION Never done INFLUENZA(1) due on 01/15/2022 HPI Berta Jaramillo is a 56 year old male. PMH significant for There is no problem list on file for this patient. Presents today to establish care with Rachel Cheyr MD No prior CC visits. Previous PCP: Prosper Guzmán,M1 ARMOR CREWMAN [address] [place] [address] WILD BARNETT, EXTENSION PROFESSOR-C [address] [facility] [address] [place] [address] States Wild was coming to his facility - assisted living in [place]. Was not a good match so changing providers. States she stopped seeing him when he changed to CC. Last seen: September 2021 Labwork: Jul 2021 ER/Hospitalization: Dec 2020 [facility] vomiting, ANDRE Outside records: medications only; no medical records Pain management Dr Rosa for peripheral neuropathy. Taking belbuca and pregabalin. Belbuca per Dr Rosa. Pregaballin per Wild [place]. States he was seen by winch runner in [facility], does not recall who, for RA. Has seen a bacteriology research assistant, but not currently. States billing concern. DIABETES MELLITUS: Notes has not been well controlled. Notes FBS today at 186. Notes BS dropping inthe evenings to 50s. Taking SSI and 40 units Tresiba at bedtime. Does feel when BS is low.Without report of S/S. Notes checking BS 4 times per day. Had CGM but not currently, interested in resuming. Patient's last HgA1C was No results found for: HBA1C) Hyperlipidemia. Mr. Jaramillo reports doing well on current therapy . His most recent lipid panels are: No results found for: CHOL No results found for: HDL No results found for: LDL No results found for: TG HTN: Without report of headache, chest pain, palpitations, dyspnea, peripheral edema, orthopnea, fatigue, and PND. No data found for this vital: BP GERD: no current complaints Anxiety/depression: notes feeling depressed on current medications, no voiced SI, interested in seeing a counselor. States little mobility, primarily sits in scooter due to peripheral neuropathy which is aggravated by walking. Can walk short distances but avoids due to pain. Review of Systems Constitutional: Negative. Objective BP 110/60 Pulse 76 Resp 16 Ht 170 cm (5' 6.93) Wt 127.5 kg (281 lb) BMI 44.10 kg/m Physical Exam Vitals and nursing note reviewed. Constitutional: Appearance: Normal appearance. HENT: Head: Normocephalic and atraumatic. Eyes: Conjunctiva/sclera: Conjunctivae normal. Neck: Thyroid: No thyromegaly. Vascular: Normal carotid pulses. No JVD. Cardiovascular: Rate and Rhythm: Normal rate and regular rhythm. Heart sounds: Normal heart sounds. Pulmonary: Effort: Pulmonary effort is normal. Breath sounds: Normal breath sounds. Abdominal: General: Bowel sounds are normal. Palpations: Abdomen is soft. Skin: General: Skin is warm and dry. Neurological: General: No focal deficit present. Mental Status: He is alert. ALLERGIES Not on File amLODIPine (NORVASC) 10 mg tablet sertraline (ZOLOFT) 50 mg tablet leflunomide (ARAVA) 10 mg tablet lisinopril (ZESTRIL, PRINIVIL) [address] (PROTONIX) 40 mg tablet BELBUCA 75 mcg buccal film QUEtiapine (SEROQUEL) 25 mg tablet buPROPion SR (ZYBAN SR; WELLBUTRIN SR) 150 mg 12 hr tablet metoprolol tartrate, short acting, (LOPRESSOR) 25 mg tablet metFORMIN (GLUCOPHAGE) 1,000 mg tablet atorvastatin (LIPITOR) 80 mg tablet Pregabalin (LYRICA) 200 mg capsule sucralfate (CARAFATE) 1 gram tablet tamsulosin (FLOMAX) 0.4 mg TRESIBA FLEXTOUCH U-100 100 unit/mL (3 mL) injection pen ezetimibe (ZETIA) 10 mg tablet amitriptyline (ELAVIL) 75 mg tablet DULoxetine (CYMBALTA) 60 mg capsule ULTICARE PEN NEEDLE 31 gauge x /16 PAST MEDICAL HISTORY Diagnosis Date Atopic eczema Depression Diabetes mellitus (HCC) Essential hypertension Neuropathy Social History Tobacco Use Smoking status: Every Day Packs/day: 1.00 Years: 44.00 Pack years: 44.00 Types: Cigarettes Smokeless tobacco: Never Substance Use Topics Alcohol use: Never Drug use: Never ASSESSMENT/PLAN: 1. Type 2 diabetes mellitus with other specified complication, with long-term current use of insulin (HCC) - ICD9: 250.80, V58.67, ICD10: E11.69, Z79.4 (primary diagnosis) He reports low blood sugar in the evenings, recommend not taking sliding scale insulin in the evening to see if this helps. Continue Tresiba unchanged. - COMP METABOLIC PANEL - CBC + DIFF - ALBUMIN/CREAT RATIO RND UR - HGB A1C - METFORMIN 1,000 MG TABLET - ATORVASTATIN 80 MG TABLET - PREGABALIN 200 MG CAPSULE - TRESIBA FLEXTOUCH U-100 INSULIN 100 UNIT/ML (3 ML) SUBCUTANEOUS PEN - INSULIN LISPRO (U-100) 100 UNIT/ML SUBCUTANEOUS PEN - DEXCOM G6 COTTON WEIGHER MISC - DEXCOM G6 TRANSMITTER DEVICE - DEXCOM G6 SENSOR DEVICE - CONSULT TO ENDOCRINOLOGY - interested in seeing Dr Garcia 2. Encounter for immunization - ICD9: V03.89, ICD10: Z23 - HEPATITIS B VACCINE, ADULT AGE 20+, IM - PFIZER-BIONTECH COVID-19 BIVALENT BOOSTER VACCINE, AGE 12+ YR - INFLUENZA VACCINE QUADRIVALENT 6 MO - 64 YRS IM 3. Special screening examination for viral disease - ICD9: V73.99, ICD10: Z11.59 - HEP C AB IA W/CONF SCRN 4. Screening for HIV (human immunodeficiency virus) - ICD9: V73.89, ICD10: Z11.4 - HIV 1 2 COMBO(AG/AB),WITH REFLEX TO DIFFERENTIATION 7. Screening for colon cancer - ICD9: V76.51, ICD10: Z12.11 review OSH records 8. Screening for prostate cancer - ICD9: V76.44, ICD10: Z12.5 - PSA/PROSTSPECAG SCRN 9. Rheumatoid arthritis, involving unspecified site, unspecified whether rheumatoid factor present (HCC) - ICD9: 714.0, ICD10: M06.9 12. History of rheumatoid arthritis - ICD9: V13.4, ICD10: Z87.39 Referral to winch runner 10. Eczema, unspecified type - ICD9: 692.9, ICD10: L30.9 - DUPIXENT 300 MG/2 ML SUBCUTANEOUS PEN INJECTOR - CONSULT TO DERMATOLOGY 11. Depression, unspecified depression type - ICD9: 311, ICD10: F32.A Notes needing increase in treatment, interested in counseling. Added buspar. - SERTRALINE 50 MG TABLET - QUETIAPINE 25 MG TABLET - BUPROPION HCL SR 150 MG TABLET,12 HR SUSTAINED-RELEASE - AMITRIPTYLINE 75 MG TABLET - DULOXETINE 60 MG CAPSULE,DELAYED RELEASE - BUSPIRONE 5 MG TABLET - CONSULT TO PSYCHOLOGY - CONSULT TO [facility] ADULT 13. Peripheral polyneuropathy - ICD9: 356.9, ICD10: G62.9 Pain management, Dr Rosa - BELBUCA 75 MCG BUCCAL FILM - PREGABALIN 200 MG CAPSULE - AMITRIPTYLINE 75 MG TABLET - DULOXETINE 60 MG CAPSULE,DELAYED RELEASE 14. Primary hypertension - ICD9: 401.9, ICD10: I10 Stable, currently controlled, continue to monitor. - COMP METABOLIC PANEL - CBC + DIFF - AMLODIPINE 10 MG TABLET - LISINOPRIL 10 MG TABLET - METOPROLOL TARTRATE 25 MG TABLET 15. Hyperlipidemia, unspecified hyperlipidemia type - ICD9: 272.4, ICD10: E78.5 - LIPID PANEL BASIC - COMP METABOLIC PANEL Labs today Request OSH records 3 and 6 mo follow up visits Establish with MD Mike Noel, PLEATING MACHINE OPERATOR.UNATTENDED GROUND SENSOR SPECIALIST . Medical Decision Making: Problems: Moderate: 2+ stable chronic illnesses and 1+ chronic illnesses with change Data: Unique test(s) ordered: 3+ Risk: Moderate: Drug management Medical Decision Making Level: 4 - Moderate documented in this encounterWvumedicine [facility]06-03-2022 Miscellaneous Notes* Telephone Encounter - Nelly Pike Ma - 10/17/2021 7:14 AM EDT Voicemail left advising patient of cancellation. appt cancelled . Please reschedule in appropriate time slot not overbooking schedule when patient returns call. * Telephone Encounter - Nelly Pike Ma - 10/15/2021 7:09 PM EDT Please call to reschedule - day is over booked with provider. documented in this encounterWvumedicine [facility] HospitalEvalubee[facility] note* Diagnosis Onset Date Resolution Status Diabetic ulcer of left heel acute Type 2 diabetes mellitus [facility] Work Phone: Evaluation note* Diagnosis Onset Date Resolution Status Diabetic ulcer of left heel acute Tobacco use acute Type 2 diabetes mellitus acu te Diabetic ulcer of left heel acute Tobacco use acute Type 2 diabetes mellitus [facility] Work Phone: Evaluation note* Diagnosis Type 2 diabetes mellitus with other specified complication, with long-term current use of insulin (HCC)- Primary Encounter for immunization Need for other specified prophylactic vaccination against single bacterial disease Special screening examination for viral disease Special screening examination for unspecified viral disease Screening for HIV (human immunodeficiency virus) Special screening examination for other specified viral diseases Screening for lipid disorders Screening for diabetes mellitus (DM) Screening for diabetes mellitus Screening for colon cancer Special screening for malignant neoplasms, colon Screening for prostate cancer Special screening for malignant neoplasm of prostate Rheumatoid arthritis, involving unspecified site, unspecified whether rheumatoid factor present (HCC) Eczema, unspecified type Depression, unspecified depression type History of rheumatoid arthritis Personal history of arthritis Peripheral polyneuropathy Unspecified hereditary and idiopathic peripheral neuropathy Primary hypertension Unspecified essential hypertension Hyperlipidemia, unspecified hyperlipidemia type documented in this encounter [facility] note* Diagnosis Type 2 diabetes mellitus with other specified complication, with long-term current use of insulin (HCC) Depression, unspecified depression type documented in this encounter [facility]* Diagnosis Type 2 diabetes mellitus with other specified complication, with long-term current use of insulin (HCC) [facility]* Diagnosis Type 2 diabetes mellitus with other specified complication, with long-term current use of insulin (HCC) [facility]* Diagnosis Type 2 diabetes mellitus with other specified complication, with long-term current use of insulin (HCC) [facility]* Diagnosis Onset Date Resolution Status Diabetic ulcer of left heel acute Tobacco use acute Type 2 diabetes mellitus acu te Diabetic ulcer of left heel acute Tobacco use acute Type 2 diabetes mellitus acu te Diabetic ulcer of left heel acute Tobacco use acute Type 2 diabetes mellitus acu te [facility] Work Phone: Evaluation note* Diagnosis Retention of urine- Primary Retention of urine, unspecified [facility]* Diagnosis Vertigo- Primary Dizziness and giddiness Urine retention Retention of urine, unspecified Hyperkalemia Hyperpotassemia Daytime sleepiness Snoring Other dyspnea and respiratory abnormality Essential hypertension Unspecified essential hypertension Limited mobility Cognitive deficits Unspecified persistent mental disorders due to conditions classified elsewhere History of rheumatoid arthritis Personal history of arthritis Type 2 diabetes mellitus with other specified complication, with long-term current use of insulin (HCC) Peripheral polyneuropathy Unspecified hereditary and idiopathic peripheral neuropathy [facility]* Diagnosis Depression, unspecified depression type Type 2 diabetes mellitus with other specified complication, with long-term current use of insulin (HCC) Peripheral polyneuropathy Unspecified hereditary and idiopathic peripheral neuropathy [facility] Diagnosis Seborrheic dermatitis- Primary Seborrheic dermatitis, unspecified Hair thinning Alopecia, unspecified Hand eczema Contact dermatitis and other eczema, due to unspecified cause Essential hypertension Unspecified essential hypertension Type 2 diabetes mellitus with other specified complication, with long-term current use of insulin (HCC) Nausea and vomiting, unspecified vomiting type [facility] Diagnosis Depression, unspecified depression type Type 2 diabetes mellitus with other specified complication, with long-term current use of insulin (HCC) Peripheral polyneuropathy Unspecified hereditary and idiopathic peripheral neuropathy Primary hypertension Unspecified essential hypertension [facility]* Diagnosis Type 2 diabetes mellitus with other specified complication, with long-term current use of insulin ([facility])- Primary documented in this encounter [facility] note* Diagnosis Vertigo Dizziness and giddiness documented in this encounter [facility] note* Diagnosis Type 2 diabetes mellitus with other specified complication, with long-term current use of insulin ([facility]) Peripheral polyneuropathy Unspecified hereditary and idiopathic peripheral neuropathy [facility]* Diagnosis Closed displaced fracture of proximal phalanx of lesser toe of left foot, initial encounter- Primary documented in this encounter [facility] note* Diagnosis Primary hypertension Unspecified essential hypertension documented in this encounter [facility] note* Diagnosis Closed nondisplaced fracture of distal phalanx of lesser toe of left foot, initial encounter- Primary Closed nondisplaced fracture of proximal phalanx of lesser toe of left foot, initial encounter documented in this encounter [facility] note* Diagnosis History of rheumatoid arthritis- Primary Personal history of arthritis documented in this encounter [facility] note* Diagnosis Diabetic ulcer of ankle ([facility])- Primary Type II or unspecified type diabetes mellitus with other specified manifestations, not stated as uncontrolled Type 2 diabetes mellitus with other specified complication, with long-term current use of insulin ([facility]) Neuropathy Mononeuritis of unspecified site Peripheral polyneuropathy Unspecified hereditary and idiopathic peripheral neuropathy Closed nondisplaced fracture of phalanx of left great toe, unspecified phalanx, initial encounter documented in this encounter [facility] note* Diagnosis Rheumatoid arthritis, involving unspecified site, unspecified whether rheumatoid factor present ([facility])- Primary Essential hypertension Unspecified essential hypertension Neuropathy Mononeuritis of unspecified site Limited mobility Type 2 diabetes mellitus with diabetic neuropathy, with long-term current use of insulin ([facility]) Peripheral polyneuropathy Unspecified hereditary and idiopathic peripheral neuropathy [facility]* Diagnosis Primary hypertension Unspecified essential hypertension Depression, unspecified depression type Type 2 diabetes mellitus with other specified complication, with long-term current use of insulin ([facility]) Peripheral polyneuropathy Unspecified hereditary and idiopathic peripheral neuropathy documented in this encounter [facility] note* Diagnosis Diabetic ulcer of ankle (HCC)- Primary Type II or unspecified type diabetes mellitus with other specified manifestations, not stated as uncontrolled Rheumatoid arthritis, involving unspecified site, unspecified whether rheumatoid factor present (HCC) Peripheral polyneuropathy Unspecified hereditary and idiopathic peripheral neuropathy Snoring Other dyspnea and respiratory abnormality Daytime sleepiness Type 2 diabetes mellitus with diabetic neuropathy, with long-term current use of insulin (HCC) [facility] Diagnosis Type 2 diabetes mellitus with other specified complication, with long-term current use of insulin (HCC) [facility]* Diagnosis Diabetic ulcer of right heel associated with diabetes mellitus due to underlying condition, limited to breakdown of skin (HCC)- Primary Diabetic ulcer of left heel associated with diabetes mellitus due to underlying condition, limited to breakdown of skin (HCC) [facility]* Diagnosis Onset Date Resolution Status Decubitus ulcer of left buttock, stage 2 acute Diabetic ulcer of left heel acute Diabetic ulcer of right heel acute Tobacco use acute Type 2 diabetes mellitus [facility] Work Phone: Evaluation note* Diagnosis Essential hypertension- Primary Unspecified essential hypertension Screening for colon cancer Special screening for malignant neoplasms, colon Encounter for screening for lung cancer Encounter for immunization Need for other specified prophylactic vaccination against single bacterial disease Diabetes mellitus (HCC) Type II or unspecified type diabetes mellitus without mention of complication, not stated as uncontrolled Rheumatoid arthritis, involving unspecified site, unspecified whether rheumatoid factor present (HCC) Neuropathy Mononeuritis of unspecified site [facility] Diagnosis Poor dentition- Primary Unspecified disorder of the teeth and supporting structures Rheumatoid arthritis, involving unspecified site, unspecified whether rheumatoid factor present (HCC) Peripheral polyneuropathy Unspecified hereditary and idiopathic peripheral neuropathy Diabetic ulcer of left heel associated with diabetes mellitus due to underlying condition, limited to breakdown of skin (HCC) Diabetic ulcer of ankle (HCC) Type II or unspecified type diabetes mellitus with other specified manifestations, not stated as uncontrolled [facility]* Diagnosis Type 2 diabetes mellitus with other specified complication, with long-term current use of insulin (HCC) [facility] Diagnosis Type 2 diabetes mellitus with other specified complication, with long-term current use of insulin (HCC) [facility]* Diagnosis Type 2 diabetes mellitus with other specified complication, with long-term current use of insulin (HCC) [facility] Diagnosis Depression, unspecified depression type [facility]* Diagnosis Diabetic ulcer of toe associated with diabetes mellitus due to underlying condition, with necrosis of muscle, unspecified laterality (HCC)- Primary [facility]* Diagnosis Diabetic ulcer of toe associated with diabetes mellitus due to underlying condition, with necrosis of muscle, unspecified laterality (HCC) [facility] Diagnosis Diabetic ulcer of toe associated with diabetes mellitus due to underlying condition, with necrosis of muscle, unspecified laterality (HCC)- Primary Type 2 diabetes mellitus with hyperglycemia, with long-term current use of insulin (HCC) Peripheral polyneuropathy Unspecified hereditary and idiopathic peripheral neuropathy [facility] Diagnosis Diabetic ulcer of toe associated with diabetes mellitus due to underlying condition, with necrosis of muscle, unspecified laterality (HCC) [facility]* Diagnosis Other acute osteomyelitis of right foot (HCC) [facility]* Diagnosis Other acute osteomyelitis of right foot (HCC) [facility]* Diagnosis Closed nondisplaced fracture of proximal phalanx of lesser toe of left foot, initial encounter Pain in right foot Pain in limb [facility]* Diagnosis Acute hematogenous osteomyelitis of right foot (HCC)- Primary Diabetic ulcer of toe associated with diabetes mellitus due to underlying condition, with necrosis of muscle, unspecified laterality (HCC) [facility]* Diagnosis Acute hematogenous osteomyelitis of right foot (HCC) Osteomyelitis of right foot, unspecified type (HCC) [facility]* Diagnosis Diabetic ulcer of toe associated with diabetes mellitus due to underlying condition, with necrosis of muscle, unspecified laterality (HCC)- Primary Acute hematogenous osteomyelitis of right foot (HCC) Osteomyelitis of right foot, unspecified type (HCC) [facility]* Diagnosis Neuropathy Mononeuritis of unspecified site Type 2 diabetes mellitus with other specified complication, with long-term current use of insulin (HCC) Peripheral polyneuropathy Unspecified hereditary and idiopathic peripheral neuropathy Osteomyelitis of right foot, unspecified type (HCC) [facility]* Diagnosis Other iron deficiency anemia- Primary Osteomyelitis of right foot, unspecified type (HCC) documented in this encounter [facility] note* Diagnosis Preoperative examination- Primary Preoperative examination, unspecified Type 2 diabetes mellitus with hyperglycemia, with long-term current use of insulin (HCC) Osteomyelitis of right foot, unspecified type (HCC) Neuropathy Mononeuritis of unspecified site Depression, recurrent (HCC) Major depressive disorder, recurrent episode, unspecified Tobacco use Tobacco use disorder Rheumatoid arthritis, involving unspecified site, unspecified whether rheumatoid factor present (HCC) Vomiting without nausea, unspecified vomiting type Gastroesophageal reflux disease without esophagitis Esophageal reflux Essential hypertension Unspecified essential hypertension Hypercholesterolemia Pure hypercholesterolemia Benign prostatic hyperplasia with urinary hesitancy Atopic dermatitis, unspecified type Class 2 severe obesity with serious comorbidity and body mass index (BMI) of 36.0 to 36.9 in adult, unspecified obesity type (HCC) Osteomyelitis of right foot, unspecified type (HCC) * Assessment & Plan Note - Zonia Peterson APRN.CNP - 09/14/2023 9:39 AM EDT Associated Problem(s): Obese Assessment: Body mass index is 36.92 kg/m . * Assessment & Plan Note - Zonia Peterson APRN.CNP - 09/14/2023 9:38 AM EDT Associated Problem(s): Atopic eczema Assessment: Currently on Dupixent, last dose 09/05. Patient reports very stable on Rx. * Assessment & Plan Note - Zonia Peterson APRN.CNP - 09/14/2023 9:37 AM EDT Associated Problem(s): Diabetes mellitus (HCC) Assessment: Last HbA1C - 8.2 (05/2023). Managed with oral medication, Insulin, Trulicity. Checks glucose multiple times per day. Patient reports glucose has been low recently, in the 60s. Re-check HbA1C today. Trulicity - Last dose 09/09. Aware to hold dose DOS (09/16) Glargine - Take 75% night before; 30 units Novolog - Do not take DOS Metformin - Do not take DOS * Assessment & Plan Note - Zonia Peterson APRN.CNP - 09/14/2023 9:35 AM EDT Associated Problem(s): Benign prostatic hyperplasia with urinary hesitancy Assessment: Reports hesitancy and slow urination at times. Compliant with Rx. * Assessment & Plan Note - Zonia Peterson APRN.CNP - 09/14/2023 9:34 AM EDT Associated Problem(s): Hypercholesterolemia Assessment: Stable on 2021 lipid panel, compliant with Rx. Following with PCP. * Assessment & Plan Note - Zonia Peterson APRN.CNP - 09/14/2023 9:33 AM EDT Associated Problem(s): Essential hypertension Assessment: Compliant with Rx. Last 3 Encounter BP Readings: Date: BP: 09/13/2023 122/68 06/16/2023 146/72 06/07/2023 101/60 * Assessment & Plan Note - Zonia Peterson APRN.CNP - 09/14/2023 9:33 AM EDT Associated Problem(s): Gastroesophageal reflux disease without esophagitis Assessment: Symptoms currently stable on Rx. * Assessment & Plan Note - Zonia Peterson APRN.CNP - 09/14/2023 9:32 AM EDT Associated Problem(s): Vomiting Assessment: Questionable gastroparesis history? Patient reports he was told he slowly digests food. No gastric emptying study available for review. He has Zofran he can take PRN. Denies any recent symptoms. * Assessment & Plan Note - Zonia Peterson APRN.CNP - 09/14/2023 9:29 AM EDT Associated Problem(s): Rheumatoid arthritis, involving unspecified site, unspecified whether rheumatoid factor present (HCC) Assessment: Pain mostly in hands and feet. Currently stable on Arava. * Assessment & Plan Note - Zonia Peterson APRN.CNP - 09/14/2023 9:20 AM EDT Associated Problem(s): Tobacco use Assessment: Current smoker, since 19 yo. Average 1ppd. Chronic smoker's cough, allergies. * Assessment & Plan Note - Zonia Peterson APRN.CNP - 09/14/2023 9:19 AM EDT Associated Problem(s): Depression, recurrent (HCC) Assessment: Currently stable on Rx. Following with PCP. * Assessment & Plan Note - Zonia Peterson APRN.CNP - 09/14/2023 9:18 AM EDT Associated Problem(s): Neuropathy Assessment: Significant neuropathy present in both feet. Lyrica does help. Reports he is unable to walk and mostly wheel chair bound due to neuropathy. * Assessment & Plan Note - Zonia Peterson APRN.CNP - 09/14/2023 9:17 AM EDT Associated Problem(s): Osteomyelitis of right foot (HCC) Assessment: Patient currently on Augmentin. Doing dressing changes at home. Open but denies significant drainage. Scheduled for toe amputation. [facility]* Diagnosis Diabetic ulcer of toe associated with diabetes mellitus due to underlying condition, with necrosis of muscle, unspecified laterality (HCC)- Primary [facility]* Diagnosis Diabetic ulcer of toe associated with diabetes mellitus due to underlying condition, with necrosis of muscle, unspecified laterality (HCC)- Primary [facility]* Diagnosis Acute hematogenous osteomyelitis of right foot (HCC)- Primary Other iron deficiency anemia [facility]* Diagnosis Diabetic ulcer of toe associated with diabetes mellitus due to underlying condition, with necrosis of muscle, unspecified laterality (HCC)- Primary Acute hematogenous osteomyelitis of right foot (HCC) [facility]* Diagnosis Diabetic ulcer of toe associated with diabetes mellitus due to underlying condition, with necrosis of muscle, unspecified laterality (HCC)- Primary Acute hematogenous osteomyelitis of right foot (HCC) [facility]* Diagnosis Nausea- Primary Nausea alone Controlled type 2 diabetes mellitus without complication, with long-term current use of insulin (HCC)- Primary [facility]* Diagnosis Controlled type 2 diabetes mellitus without complication, with long-term current use of insulin (HCC)- Primary [facility]* Diagnosis Primary hypertension- Primary Unspecified essential hypertension Greater trochanteric pain syndrome of right lower extremity Type 2 diabetes mellitus with hyperglycemia, with long-term current use of insulin (HCC) Nausea and vomiting, unspecified vomiting type [facility]* Diagnosis Primary hypertension- Primary Unspecified essential hypertension [facility]* Diagnosis Neuropathy Mononeuritis of unspecified site Type 2 diabetes mellitus with other specified complication, with long-term current use of insulin (HCC) Peripheral polyneuropathy Unspecified hereditary and idiopathic peripheral neuropathy [facility] Diagnosis Ulcer of toe of right foot, with fat layer exposed (HCC) [facility]* Diagnosis Ulcer of toe of right foot, with fat layer exposed (HCC)- Primary Other acute osteomyelitis of right foot (HCC) Ulcer of toe of right foot, with fat layer exposed (HCC) [facility]* Diagnosis Other acute osteomyelitis of right foot (HCC) [facility] Diagnosis Ulcer of toe of right foot, with fat layer exposed (HCC)- Primary Closed nondisplaced fracture of metatarsal bone of right foot with routine healing, unspecified metatarsal, subsequent encounter [facility]* Diagnosis Open wound of right great toe, subsequent encounter Type 2 diabetes mellitus with hyperglycemia, with long-term current use of insulin (HCC) Peripheral polyneuropathy Unspecified hereditary and idiopathic peripheral neuropathy Preoperative examination- Primary Preoperative examination, unspecified Type 2 diabetes mellitus with hyperglycemia, with long-term current use of insulin (HCC) Osteomyelitis of right foot, unspecified type (HCC) Neuropathy Mononeuritis of unspecified site Depression, recurrent (HCC) Major depressive disorder, recurrent episode, unspecified Tobacco use Tobacco use disorder Rheumatoid arthritis, involving unspecified site, unspecified whether rheumatoid factor present (HCC) Vomiting without nausea, unspecified vomiting type Gastroesophageal reflux disease without esophagitis Esophageal reflux Essential hypertension Unspecified essential hypertension Hypercholesterolemia Pure hypercholesterolemia Benign prostatic hyperplasia with urinary hesitancy Atopic dermatitis, unspecified type Class 2 severe obesity with serious comorbidity and body mass index (BMI) of 36.0 to 36.9 in adult, unspecified obesity type (HCC) [facility]* Diagnosis History of rheumatoid arthritis Personal history of arthritis Rash of both hands Dysplastic toenail Other specified disease of nail Preoperative examination- Primary Preoperative examination, unspecified Type 2 diabetes mellitus with hyperglycemia, with long-term current use of insulin (HCC) Osteomyelitis of right foot, unspecified type (HCC) Neuropathy Mononeuritis of unspecified site Depression, recurrent (HCC) Major depressive disorder, recurrent episode, unspecified Tobacco use Tobacco use disorder Rheumatoid arthritis, involving unspecified site, unspecified whether rheumatoid factor present (HCC) Vomiting without nausea, unspecified vomiting type Gastroesophageal reflux disease without esophagitis Esophageal reflux Essential hypertension Unspecified essential hypertension Hypercholesterolemia Pure hypercholesterolemia Benign prostatic hyperplasia with urinary hesitancy Atopic dermatitis, unspecified type Class 2 severe obesity with serious comorbidity and body mass index (BMI) of 36.0 to 36.9 in adult, unspecified obesity type (HCC) documented in this encounter [facility] note* Diagnosis Preoperative examination- Primary Preoperative examination, unspecified Type 2 diabetes mellitus with hyperglycemia, with long-term current use of insulin (HCC) Osteomyelitis of right foot, unspecified type (HCC) Neuropathy Mononeuritis of unspecified site Depression, recurrent (HCC) Major depressive disorder, recurrent episode, unspecified Tobacco use Tobacco use disorder Rheumatoid arthritis, involving unspecified site, unspecified whether rheumatoid factor present (HCC) Vomiting without nausea, unspecified vomiting type Gastroesophageal reflux disease without esophagitis Esophageal reflux Essential hypertension Unspecified essential hypertension Hypercholesterolemia Pure hypercholesterolemia Benign prostatic hyperplasia with urinary hesitancy Atopic dermatitis, unspecified type Class 2 severe obesity with serious comorbidity and body mass index (BMI) of 36.0 to 36.9 in adult, unspecified obesity type (HCC) Ulcer of toe of right foot, with fat layer exposed (HCC)- Primary Other acute osteomyelitis of right foot (HCC) Diabetic ulcer of toe associated with diabetes mellitus due to underlying condition, with necrosis of muscle, unspecified laterality (HCC) Closed nondisplaced fracture of metatarsal bone of right foot with routine healing, unspecified metatarsal, subsequent encounter Type 2 diabetes mellitus with hyperglycemia, with long-term current use of insulin (HCC) documented in this encounter [facility] note* Diagnosis Preoperative examination- Primary Preoperative examination, unspecified Type 2 diabetes mellitus with hyperglycemia, with long-term current use of insulin (HCC) Osteomyelitis of right foot, unspecified type (HCC) Neuropathy Mononeuritis of unspecified site Depression, recurrent (HCC) Major depressive disorder, recurrent episode, unspecified Tobacco use Tobacco use disorder Rheumatoid arthritis, involving unspecified site, unspecified whether rheumatoid factor present (HCC) Vomiting without nausea, unspecified vomiting type Gastroesophageal reflux disease without esophagitis Esophageal reflux Essential hypertension Unspecified essential hypertension Hypercholesterolemia Pure hypercholesterolemia Benign prostatic hyperplasia with urinary hesitancy Atopic dermatitis, unspecified type Class 2 severe obesity with serious comorbidity and body mass index (BMI) of 36.0 to 36.9 in adult, unspecified obesity type (HCC) Type 2 diabetes mellitus with diabetic neuropathy, with long-term current use of insulin (HCC)- Primary Closed nondisplaced fracture of phalanx of left great toe, unspecified phalanx, initial encounter Diabetic ulcer of toe of right foot associated with type 2 diabetes mellitus, with fat layer exposed (HCC) Depression, unspecified depression type Peripheral polyneuropathy Unspecified hereditary and idiopathic peripheral neuropathy Type 2 diabetes mellitus with other specified complication, with long-term current use of insulin (HCC) Primary hypertension Unspecified essential hypertension Neuropathy Mononeuritis of unspecified site Rheumatoid arthritis, involving unspecified site, unspecified whether rheumatoid factor present (HCC) Anemia, unspecified type Urge incontinence of urine Urge incontinence Closed nondisplaced fracture of fifth metatarsal bone of right foot with routine healing, subsequent encounter Encounter for immunization Need for other specified prophylactic vaccination against single bacterial disease documented in this encounter [facility]* Diagnosis Preoperative examination- Primary Preoperative examination, unspecified Type 2 diabetes mellitus with hyperglycemia, with long-term current use of insulin (HCC) Osteomyelitis of right foot, unspecified type (HCC) Neuropathy Mononeuritis of unspecified site Depression, recurrent (HCC) Major depressive disorder, recurrent episode, unspecified Tobacco use Tobacco use disorder Rheumatoid arthritis, involving unspecified site, unspecified whether rheumatoid factor present (HCC) Vomiting without nausea, unspecified vomiting type Gastroesophageal reflux disease without esophagitis Esophageal reflux Essential hypertension Unspecified essential hypertension Hypercholesterolemia Pure hypercholesterolemia Benign prostatic hyperplasia with urinary hesitancy Atopic dermatitis, unspecified type Class 2 severe obesity with serious comorbidity and body mass index (BMI) of 36.0 to 36.9 in adult, unspecified obesity type (HCC) Type 2 diabetes mellitus, with long-term current use of insulin (HCC)- Primary Screening for diabetic retinopathy Screening for other eye conditions Screening for colon cancer Special screening for malignant neoplasms, colon Encounter for screening for lung cancer Depression, unspecified depression type Peripheral polyneuropathy Unspecified hereditary and idiopathic peripheral neuropathy Iron deficiency anemia, unspecified iron deficiency anemia type Encounter for immunization Need for other specified prophylactic vaccination against single bacterial disease documented in this encounter [facility]* Diagnosis Preoperative examination- Primary Preoperative examination, unspecified Type 2 diabetes mellitus with hyperglycemia, with long-term current use of insulin (HCC) Osteomyelitis of right foot, unspecified type (HCC) Neuropathy Mononeuritis of unspecified site Depression, recurrent (HCC) Major depressive disorder, recurrent episode, unspecified Tobacco use Tobacco use disorder Rheumatoid arthritis, involving unspecified site, unspecified whether rheumatoid factor present (HCC) Vomiting without nausea, unspecified vomiting type Gastroesophageal reflux disease without esophagitis Esophageal reflux Essential hypertension Unspecified essential hypertension Hypercholesterolemia Pure hypercholesterolemia Benign prostatic hyperplasia with urinary hesitancy Atopic dermatitis, unspecified type Class 2 severe obesity with serious comorbidity and body mass index (BMI) of 36.0 to 36.9 in adult, unspecified obesity type (HCC) Type 2 diabetes mellitus with hyperglycemia, with long-term current use of insulin (HCC) documented in this encounter [facility] note* Diagnosis Preoperative examination- Primary Preoperative examination, unspecified Type 2 diabetes mellitus with hyperglycemia, with long-term current use of insulin (HCC) Osteomyelitis of right foot, unspecified type (HCC) Neuropathy Mononeuritis of unspecified site Depression, recurrent Major depressive disorder, recurrent episode, unspecified Tobacco use Tobacco use disorder Rheumatoid arthritis, involving unspecified site, unspecified whether rheumatoid factor present (HCC) Vomiting without nausea, unspecified vomiting type Gastroesophageal reflux disease without esophagitis Esophageal reflux Essential hypertension Unspecified essential hypertension Hypercholesterolemia Pure hypercholesterolemia Benign prostatic hyperplasia with urinary hesitancy Atopic dermatitis, unspecified type Class 2 severe obesity with serious comorbidity and body mass index (BMI) of 36.0 to 36.9 in adult, unspecified obesity type (HCC) Type 2 diabetes mellitus with other specified complication, with long-term current use of insulin (HCC) Neuropathy Mononeuritis of unspecified site Peripheral polyneuropathy Unspecified hereditary and idiopathic peripheral neuropathy documented in this encounter [facility] note* Diagnosis Preoperative examination- Primary Preoperative examination, unspecified Type 2 diabetes mellitus with hyperglycemia, with long-term current use of insulin (HCC) Osteomyelitis of right foot, unspecified type (HCC) Neuropathy Mononeuritis of unspecified site Depression, recurrent Major depressive disorder, recurrent episode, unspecified Tobacco use Tobacco use disorder Rheumatoid arthritis, involving unspecified site, unspecified whether rheumatoid factor present (HCC) Vomiting without nausea, unspecified vomiting type Gastroesophageal reflux disease without esophagitis Esophageal reflux Essential hypertension Unspecified essential hypertension Hypercholesterolemia Pure hypercholesterolemia Benign prostatic hyperplasia with urinary hesitancy Atopic dermatitis, unspecified type Class 2 severe obesity with serious comorbidity and body mass index (BMI) of 36.0 to 36.9 in adult, unspecified obesity type (HCC) Type 2 diabetes mellitus with hyperglycemia, with long-term current use of insulin (HCC)- Primary Depression, recurrent Major depressive disorder, recurrent episode, unspecified Essential hypertension Unspecified essential hypertension Anxiety Anxiety state, unspecified Hypercholesterolemia Pure hypercholesterolemia Vitamin B6 deficiency (non anemic) Vitamin B6 deficiency Iron deficiency anemia, unspecified iron deficiency anemia type Dry skin Other specified disease of sebaceous glands documented in this encounter [facility]* Diagnosis Preoperative examination- Primary Preoperative examination, unspecified Type 2 diabetes mellitus with hyperglycemia, with long-term current use of insulin (HCC) Osteomyelitis of right foot, unspecified type (HCC) Neuropathy Mononeuritis of unspecified site Depression, recurrent Major depressive disorder, recurrent episode, unspecified Tobacco use Tobacco use disorder Rheumatoid arthritis, involving unspecified site, unspecified whether rheumatoid factor present (HCC) Vomiting without nausea, unspecified vomiting type Gastroesophageal reflux disease without esophagitis Esophageal reflux Essential hypertension Unspecified essential hypertension Hypercholesterolemia Pure hypercholesterolemia Benign prostatic hyperplasia with urinary hesitancy Atopic dermatitis, unspecified type Class 2 severe obesity with serious comorbidity and body mass index (BMI) of 36.0 to 36.9 in adult, unspecified obesity type (HCC) Screening for colorectal cancer- Primary Special screening for malignant neoplasms, colon documented in this encounter [facility] note* Diagnosis Preoperative examination- Primary Preoperative examination, unspecified Type 2 diabetes mellitus with hyperglycemia, with long-term current use of insulin (HCC) Osteomyelitis of right foot, unspecified type (HCC) Neuropathy Mononeuritis of unspecified site Depression, recurrent Major depressive disorder, recurrent episode, unspecified Tobacco use Tobacco use disorder Rheumatoid arthritis, involving unspecified site, unspecified whether rheumatoid factor present (HCC) Vomiting without nausea, unspecified vomiting type Gastroesophageal reflux disease without esophagitis Esophageal reflux Essential hypertension Unspecified essential hypertension Hypercholesterolemia Pure hypercholesterolemia Benign prostatic hyperplasia with urinary hesitancy Atopic dermatitis, unspecified type Class 2 severe obesity with serious comorbidity and body mass index (BMI) of 36.0 to 36.9 in adult, unspecified obesity type (HCC) Type 2 diabetes mellitus with hyperglycemia, with long-term current use of insulin (HCC)- Primary Dizziness Dizziness and giddiness Pain in both feet Pain in limb Essential hypertension Unspecified essential hypertension Iron deficiency anemia, unspecified iron deficiency anemia type documented in this encounter [facility] note* Diagnosis Preoperative examination- Primary Preoperative examination, unspecified Type 2 diabetes mellitus with hyperglycemia, with long-term current use of insulin (HCC) Osteomyelitis of right foot, unspecified type (HCC) Neuropathy Mononeuritis of unspecified site Depression, recurrent Major depressive disorder, recurrent episode, unspecified Tobacco use Tobacco use disorder Rheumatoid arthritis, involving unspecified site, unspecified whether rheumatoid factor present (HCC) Vomiting without nausea, unspecified vomiting type Gastroesophageal reflux disease without esophagitis Esophageal reflux Essential hypertension Unspecified essential hypertension Hypercholesterolemia Pure hypercholesterolemia Benign prostatic hyperplasia with urinary hesitancy Atopic dermatitis, unspecified type Class 2 severe obesity with serious comorbidity and body mass index (BMI) of 36.0 to 36.9 in adult, unspecified obesity type (HCC) Dizziness- Primary Dizziness and giddiness Iron deficiency anemia, unspecified iron deficiency anemia type [facility] Diagnosis Preoperative examination- Primary Preoperative examination, unspecified Type 2 diabetes mellitus with hyperglycemia, with long-term current use of insulin (HCC) Osteomyelitis of right foot, unspecified type (HCC) Neuropathy Mononeuritis of unspecified site Depression, recurrent Major depressive disorder, recurrent episode, unspecified Tobacco use Tobacco use disorder Rheumatoid arthritis, involving unspecified site, unspecified whether rheumatoid factor present (HCC) Vomiting without nausea, unspecified vomiting type Gastroesophageal reflux disease without esophagitis Esophageal reflux Essential hypertension Unspecified essential hypertension Hypercholesterolemia Pure hypercholesterolemia Benign prostatic hyperplasia with urinary hesitancy Atopic dermatitis, unspecified type Class 2 severe obesity with serious comorbidity and body mass index (BMI) of 36.0 to 36.9 in adult, unspecified obesity type (HCC) Foot spasms- Primary Abnormal involuntary movements Type 2 diabetes mellitus with hyperglycemia, with long-term current use of insulin (HCC) Pain in both feet Pain in limb Phantom limb syndrome with pain (HCC) Phantom limb (syndrome) documented in this encounter [facility] Discharge instructions Additional Instructions You are being diagnosed with vertigo, take the meclizine for the dizziness. Your potassium was slightly elevated, please read the education regarding a low potassium diet. You need to have this rechecked with your PCP. You are also being diagnosed with urinary retention, you have a Worthy catheter placed. You need to follow-up with Dr. Kearney who is a urologist. Please return for any worsening symptoms.[facility] Work Phone: Hospital Discharge instructions Additional Instructions The blood in your catheter was secondary to trauma to the prostate upon insertion of the Worthy catheter. The catheter has been irrigated and now the urine returning is consistent with old blood. Your urine will have a pink lemonade discoloration for the next few days. If it returns to dark red/grape juice discoloration or you have any further concerns please return to the ER for repeat evaluation. Your exam today also indicates you have sleep apnea therefore follow-up with your doctor to obtain a sleep study so he can be prescribed oxygen at night.[facility] Work Phone: Hospital Discharge instructions Additional Instructions Call your doctor's office this morning to get your medications refilled. Watch her blood sugars and check them at least twice daily.[facility] Work Phone: Patient's home Plan of care note* Visit Details Visit Type -SN SOC Discipline -Assisted Problems Problem Description Start Date Status Goals Interve ntions Medication Education Disciplines: Skilled Services 03/28/2024 Active 1 goal linked to scheduled/document ed intervention 1 goal intervention scheduled/document ed in this visit Mental Health Disciplines: Skilled Services 03/28/2024 Active 1 goal linked to scheduled/document ed intervention 2 goal interventions scheduled/document ed in this visit Sepsis Disciplines: Skilled Services 03/28/2024 Active 1 goal linked to scheduled/document ed intervention 1 goal intervention scheduled/document ed in this visit Risk for skin breakdown Disciplines: Skilled Services 03/28/2024 Active 1 goal linked to scheduled/document ed intervention 1 goal intervention scheduled/document ed in this visit Physician Specific Parameters Disciplines: Skilled Services 03/28/2024 Active 1 goal linked to scheduled/document ed intervention 2 goal interventions scheduled/document ed in this visit Risk for Falls Disciplines: Skilled Services 03/28/2024 Active 1 goal linked to scheduled/document ed intervention 1 goal intervention scheduled/document ed in this visit Pain Disciplines: Skilled Services 03/28/2024 Active 1 goal linked to scheduled/document ed intervention 1 goal intervention scheduled/document ed in this visit Diabetic Foot Care Disciplines: Skilled Services 03/28/2024 Active 1 goal linked to scheduled/document ed intervention 1 goal intervention scheduled/document ed in this visit Nutrition/Hydrati on Disciplines: Skilled Services 03/28/2024 Active 1 goal linked to scheduled/document ed intervention 1 goal intervention scheduled/document ed in this visit High Risk Medications Disciplines: Skilled Services 03/28/2024 Active 1 goal linked to scheduled/document ed intervention 3 goal interventions scheduled/document ed in this visit Discharge Disciplines: Skilled Services 03/28/2024 Active 1 goal linked to scheduled/document ed intervention 1 goal intervention scheduled/document ed in this visit Advance Directives Disciplines: Skilled Services 03/28/2024 Active 1 goal linked to scheduled/document ed intervention 1 goal intervention scheduled/document ed in this visit SN Integumentary/Wou nds Disciplines: 03/28/2024 Active 1 goal linked to scheduled/document ed intervention 3 goal interventions scheduled/document ed in this visit SN Diabetes Disciplines: 03/28/2024 Active 1 goal linked to scheduled/document ed intervention 2 goal interventions scheduled/document ed in this visit SN Other significant comorbidities/dis ease process Disciplines: 03/28/2024 Active 1 goal linked to scheduled/document ed intervention 1 goal intervention scheduled/document ed in this visit SN Ortho Procedure/Surgery Disciplines: 03/28/2024 Active 1 goal linked to scheduled/document ed intervention 1 goal intervention scheduled/document ed in this visit SN Gastrointestinal Disciplines: 03/28/2024 Active 1 goal linked to scheduled/document ed intervention 1 goal intervention scheduled/document ed in this visit Goals Goal Associated Problem Outcome Goal Met? Visit Notes Patient/caregiver will demonstrate ability to obtain, store, identify and administer ordered medications, keep accurate medication list in home, and adhere to medication schedule Description: Patient/caregiver will demonstrate ability to obtain, store, identify and administer ordered medications, keep accurate medication list in home, and adhere to medication schedule by 05-26-24. Medication Education No Improved management of mental health condition(s) Description: Patient/caregiver will teach back mental health symptom identification and management techniques by 05-26-24. Mental Health No Patient/caregiver will be able to identify and report symptoms of sepsis Description: Patient/caregiver will be able to identify signs/symptoms of sepsis infection and will verbalize actions to take if suspected by 05-26-24. Sepsis No Manage risk for skin breakdown Description: Patient/caregiver will verbalize and demonstrate understanding of the risks and measures to be taken to monitor and prevent skin breakdown by 05-26-24. Risk for skin breakdown No Patient to maintain parameters within physician-specified ranges throughout certification period Physician Specific Parameters No Manage Risk for falls Description: Patient/caregiver will verbalize knowledge of individualized fall prevention strategies by 05-26-24. Risk for Falls No Manage Pain Description: Patient/caregiver will verbalize knowledge and understanding of appropriate techniques to control pain, including pain medication and non-pharmacological techniques. Patient will verbalize or demonstrate an acceptable level of pain as evidenced by a pain score of 3/10 and improvement in ability to perform activities of daily living to be achieved by 05-26-24. Pain No Manage diabetic foot care Description: Patient/caregiver will demonstrate basic understanding of and compliance with diabetic self-care management as evidenced by verbalizing purpose of daily foot care and assessment by 05-26-24. Diabetic Foot Care No Manage Nutrition/Hydration Description: Patient/caregiver will verbalize/demonstrate knowledge of prescribed diet and/or healthy nutrition to be achieved by 05-26-24. Nutrition/Hydration No Patient/caregiver will teach back high risk medication side effect and precaution education Description: STG Patient/caregiver will verbalize understanding of high risk medication side effects and precautions to be achieved by 05-26-24. LTG Patient/caregiver will continue to verbalize understanding of high risk medication side effects and precautions throughout certification period. High Risk Medications No Manage discharge planning Description: Patient/caregiver will verbalize understanding of ongoing discharge plan provided related to disease management, arrangements for outpatient and/or community services, obtaining medications, supplies, and DME, as needed throughout certification period. Discharge No Patient/caregiver will make healthcare providers aware of and any changes to Advance Directives throughout certification period Advance Directives No Patient/Caregiver will have improved healing and be free of signs and symptoms of complications Description: Patient/caregiver will verbalize management strategies to promote wound healing & prevent complications as evidenced by improved healing & no complications by 05-26-24. SN Integumentary/Wounds No Improved management of diabetes Description: Improve diabetic management as evidenced by patient/caregiver able to teach back diabetic management strategies by 05-26-24. SN Diabetes No Patient/Caregiver will verbalize and/or demonstrate understanding of additional comorbidity(s) or disease process affecting plan of care Description: Patient/Caregiver will verbalize and/or demonstrate understanding of comorbidities effect on health conditions by 05-26-24. SN Other significant comorbidities/disease process No Effective management of ortho post-op condition Description: Increase understanding of management of condition following orthopedic procedure/surgery as evidenced by patient's/caregiver's ability to teachback precautions and s/s of complications by 05-26-24. SN Ortho Procedure/Surgery No Improved management of GI disease/condition Description: Patient/Caregiver will demonstrate understanding of GI education as evidenced by improved management of gastrointestinal disease/condition by 05-26-24. SN Gastrointestinal No Interventions Intervention Associated Problem/Goal Status Variance Visit Notes Medication Education Description: Evaluate/instruct patient/caregiver on obtaining, storing, identifying and administering ordered medications as well as keeping accurate medication list in the home and adhereing to medication schedule Problem:Medication Education Goal:Patient/caregiver will demonstrate ability to obtain, store, identify and administer ordered medications, keep accurate medication list in home, and adhere to medication schedule Completed Patient instructed on importance of keeping accurate medication list in home, need to take up-to-date medication list to all medical provider appointments, adhering to medication schedule and proper storage of medications. Instruct on depression symptoms and management Description: PHQ-2 score: below 3 PHQ-9 Score: mild Problem:Mental Health Goal:Improved management of mental health condition(s) Completed Patient instructed on the following: signs of depression and when to report symptoms to physician, importance of medication adherence, record symptoms to assist with ongoing monitoring, coping skills & techniques, develop awareness of stressors, verbalize feelings, the importance of activity, goal planning and schedules , the benefits of adequate nutrition and hydration and seeking support from family/friends. Instruct on coping strategies Problem:Mental Health Goal:Improved management of mental health condition(s) Completed Risk of Sepsis Description: Patient is at risk for sepsis. Monitor closely for s/s of sepsis. Problem:Sepsis Goal:Patient/caregiver will be able to identify and report symptoms of sepsis Completed Instruct on the risks and measures to be taken to prevent skin breakdown Description: Patient's Jonas Score is: 18. A Jonas score <= to 18 indicates risk for skin breakdown. Problem:Risk for skin breakdown Goal:Manage risk for skin breakdown Completed patient instructed on maintaining skin integrity including: The need for every 1-2 hour turns, position changes, and maintaining activity as tolerated, Reducing risk of friction and shear, including use of draw sheet as appropriate, Elevating and protecting heels, Inspecting bony prominences, Routine skin care and Notifying [facility] clinician of changes to skin integrity Evaluation for pressure reduction surfaces completed for bed and wheelchair and recommendations made for reposition at least every 2 hours, keep skin clean and dry. Blood Sugar Description: Notify if blood sugar 401 for more than 3 consecutive days. Problem:Physician Specific Parameters Goal:Patient to maintain parameters within physician-specified ranges throughout certification period Completed SPO2 Description: Notify Dr. Chery if pulse ox is <92% at rest. Problem:Physician Specific Parameters Goal:Patient to maintain parameters within physician-specified ranges throughout certification period Completed Instruct on individual fall risk factors and strategies to prevent falls and injuries caused by falls. Problem:Risk for Falls Goal:Manage Risk for falls Completed SN: Patient instructed on Eliminating Environmental Hazards: Keep pathways clear, Remove unsafe rugs, Move furniture from pathways, Keep rooms and walkways well lit, Wear supportive shoes or non-skid socks and Keep frequently used items within reach Instruct on pain and instruct on strategies to control pain Problem:Pain Goal:Manage Pain Completed patient instructed on techniques to control pain including Pharmacological measures and Non-Pharmacological measures; rest, positioning/elevation , mobility/therapeutic exercise, distraction, breathing/relaxation and use of DME/assistive devices. Monitor lower extremities for skin lesions and educate on proper foot care Problem:Diabetic Foot Care Goal:Manage diabetic foot care Completed patient instructed on diabetic foot care including daily skin inspection, wearing proper footwear/avoiding going barefoot, wash/dry feet thoroughly, applying moisturizer, avoiding between toes and toenail care. Define patient s appetite/hydration status and implement strategies to improve compliance with prescribed diet and/or healthy nutrition. Problem:Nutrition/Hydra tion Goal:Manage Nutrition/Hydration Completed instructed patient on implementing strategies to comply with prescribed diet, healthy nutrition and adequate hydration Opioids- educated on high risk medication Problem:High Risk Medications Goal:Patient/caregiver will teach back high risk medication side effect and precaution education Completed patient educated on taking medication(s) as prescribed by provider. Do not stop medication or alter doses without speaking with your provider. Discuss medication effectiveness or side effect concerns with your provider and home care team. Only take opioids as prescribed, do not share your medications, and take proper precautions in storing and properly disposing of opioids once no longer needed. Possible side effects of opioid medication including sedation, decreased rate of breathing, and constipation. Report over sedation to prescribing provider and practice deep breathing techniques every hour while awake. Prevent constipation by increasing water and fiber intake, increasing activity as tolerated, and use stool softener(s) as prescribed. Hypoglycemic (including insulin)- educated on high risk medication Problem:High Risk Medications Goal:Patient/caregiver will teach back high risk medication side effect and precaution education Completed patient educated on taking medication(s) as prescribed by provider. Do not stop medication or skip/alter doses without speaking with your provider. Discuss medication effectiveness or side effect concerns with your provider and home care team. Check blood sugars and keep log as ordered by provider. Monitor for side effects of hypoglycemia such as increased weakness or shaking, moist skin, sweating, fast heartbeat, dizziness, sudden hunger, confusion, pale skin, numbness in mouth or tongue, irritability, nervousness, unsteadiness, nightmares, bad dreams, and restless sleep. Checking your blood sugar routinely and eating a consistent diabetic diet can help regulate blood sugars and reduce side effects. Antiplatelet- educated on high risk medication Problem:High Risk Medications Goal:Patient/caregiver will teach back high risk medication side effect and precaution education Completed patient educated on taking medication(s) as prescribed by provider. Do not stop medication or alter doses without speaking with your provider. Discuss medication effectiveness or side effect concerns with your provider and home care team. Discuss all medications you are taking, even [id number] medicines, with your provider and pharmacist since many drugs can interact with antiplatelet medications. If you forget to take a dose, DO NOT take a double dose. Take the missed dose as soon as possible on the same day. DO NOT take a double dose the next day to make up for the missed dose. Watch for signs of abnormal or excessive bleeding and bruising (refer to Bleeding Precautions education). Call your health care provider right away if you suspect something is wrong. Instruct on importance of follow-up appts and continued monitoring with medical provider &/or chronic care clinic Problem:Discharge Goal:Manage discharge planning Completed Education provided on importance of compliance with follow-up appointment(s). Recommendations: patient/caregiver to follow up with scheduling appointment(s) for post-acute/primary care provider/chronic care clinic Determine patient's Advance Directive Status Description: Patient does not have advance directives. Patient/Caregiver declined Advance Directive information. Problem:Advance Directives Goal:Patient/caregiver will make healthcare providers aware of and any changes to Advance Directives throughout certification period Completed Discussed Advance Directives with Patient and/or Caregiver. Referred patient to Home Care handbook for further information on Healthcare DPOA & Living Will. Wound Care: Perform wound care (1) Description: Wound Care Order: Incision location: right great toe Wound type (etiology): Incision Order: Cleanse with mild soap and water, Rinse and pat dry, pain with betadine, Cover with xeroform, 4x4, wrap with kerlix, secure with haritha wrap Frequency: every other day an as needed for soiled Wound care to be completed by caregiver except for scheduled SN wound care visits. Measure wound/incision at least weekly. Okay to substitute comparable products from home care formulary. Problem:SN Integumentary/Wounds Goal:Patient/Caregiver will have improved healing and be free of signs and symptoms of complications Completed Completed by SN. Patient did tolerate well. Instruct patient/caregiver healing process and management measures to promote healing and avoid complications Problem:SN Integumentary/Wounds Goal:Patient/Caregiver will have improved healing and be free of signs and symptoms of complications Completed patient instructed on the following: healing process, signs and symptoms of infection, importance of good nutrition, importance of managing blood sugars, smoking cessation and when to report symptoms. Instruct Patient/Caregiver on wound/incision care procedure as ordered by physician Problem:SN Integumentary/Wounds Goal:Patient/Caregiver will have improved healing and be free of signs and symptoms of complications Completed patient and caregiver instructed on wound care as ordered by Physician. Instruct on diabetes disease process and management of chronic condition Description: Patient has needs for education of diabetes. Problem:SN Diabetes Goal:Improved management of diabetes Completed patient assessed and instructed on diabetes disease process, how food and insulin affect blood sugar, diet education, how to carb count and recogonizing s/s of hypoglycemia and hyperglycemia as found in the diabetes self-care booklets. Ensure patient/caregiver has Living with Diabetes Booklet in home Description: SN to provide and refer to diabetes education booklet every visit. Problem:SN Diabetes Goal:Improved management of diabetes Completed Patient does not have diabetes self-care booklet. Assess and instruct patient/caregiver on other significant comorbidity(s) or diseae process affecting plan of care Description: Significant comorbidity(s) or diseae process affecting plan of care:Nicotine use disorder Problem:SN Other significant comorbidities/disease process Goal:Patient/Caregiver will verbalize and/or demonstrate understanding of additional comorbidity(s) or disease process affecting plan of care Completed patient instructed on Nicotine use disorder. Instruct on ortho post-op care and monitoring/preventio n of complications Description: Patient is status-post amputation of right great toe Problem:SN Ortho Procedure/Surgery Goal:Effective management of ortho post-op condition Completed patient instructed on the following precautions/restricti ons:s/s of infection, weight-bearing status [id number] RLE as tolerated Constipation: Instruct Patient/Caregiver on measures to manage constipation Problem:SN Gastrointestinal Goal:Improved management of GI disease/condition Completed patient instructed on the following measures to relieve constipation: increase fluids, increase dietary fiber intake and increase activity as tolerated. Instructed on use of laxative. documented in this encounter [facility]'s home Plan of care note* Visit Details Visit Type -PT EVAL Discipline -Physical Therapy Problems Problem Description Start Date Status Goals Interve ntions Sepsis Disciplines: Skilled Services 03/28/2024 Active 1 goal linked to scheduled/document ed intervention 1 goal intervention scheduled/documente d in this visit PT Referral Disciplines: Skilled Services 03/28/2024 Active 1 goal linked to scheduled/document ed intervention 1 goal intervention scheduled/documente d in this visit Physician Specific Parameters Disciplines: Skilled Services 03/28/2024 Active 1 goal linked to scheduled/document ed intervention 2 goal interventions scheduled/documente d in this visit Risk for Falls Disciplines: Skilled Services 03/28/2024 Active 1 goal linked to scheduled/document ed intervention 1 goal intervention scheduled/documente d in this visit Pain Disciplines: Skilled Services 03/28/2024 Active 1 goal linked to scheduled/document ed intervention 1 goal intervention scheduled/documente d in this visit PT Learning Assessment Disciplines: PT 03/29/2024 Active 1 goal linked to scheduled/document ed intervention 1 goal intervention scheduled/documente d in this visit Goals Goal Associated Problem Outcome Goal Met? Visit Notes Patient/caregiver will be able to identify and report symptoms of sepsis Description: Patient/caregiver will be able to identify signs/symptoms of sepsis infection and will verbalize actions to take if suspected by 05-26-24. Sepsis No Patient will be referred to additional discipline as needed PT Referral No Patient to maintain parameters within physician-specified ranges throughout certification period Physician Specific Parameters No Manage Risk for falls Description: Patient/caregiver will verbalize knowledge of individualized fall prevention strategies by 05-26-24. Risk for Falls No Manage Pain Description: Patient/caregiver will verbalize knowledge and understanding of appropriate techniques to control pain, including pain medication and non-pharmacological techniques. Patient will verbalize or demonstrate an acceptable level of pain as evidenced by a pain score of 3/10 and improvement in ability to perform activities of daily living to be achieved by 05-26-24. Pain No Demonstrate understanding of education Description: Patient and/or caregiver will understand educational instruction to be achieved by 03/29/24. PT Learning Assessment No Interventions Intervention Associated Problem/Goal Status Variance Visit Notes Risk of Sepsis Description: Patient is at risk for sepsis. Monitor closely for s/s of sepsis. Problem:Sepsis Goal:Patient/caregiv er will be able to identify and report symptoms of sepsis Completed PT evaluation and treatment Description: Evaluate and treat for the assessment of functional deficits and establishment of appropriate interventions and education, including recommendations for functional mobility training, balance training for fall reduction, and strengthening. Problem:PT Referral Goal:Patient will be referred to additional discipline as needed Completed Blood Sugar Description: Notify if blood sugar 401 for more than 3 consecutive days. Problem:Physician Specific Parameters Goal:Patient to maintain parameters within physician-specified ranges throughout certification period Completed SPO2 Description: Notify Dr. Chery if pulse ox is <92% at rest. Problem:Physician Specific Parameters Goal:Patient to maintain parameters within physician-specified ranges throughout certification period Completed Instruct on individual fall risk factors and strategies to prevent falls and injuries caused by falls. Problem:Risk for Falls Goal:Manage Risk for falls Completed PT: Patient instructed on Eliminating Environmental Hazards: Keep pathways clear, Remove unsafe rugs, Move furniture from pathways, Keep rooms and walkways well lit, Install hand rails/grab bars and Wear supportive shoes or non-skid socks Managing Impaired Functional Mobility: Use assistive device(s): wheelchair Managing Pain Instruct on pain and instruct on strategies to control pain Problem:Pain Goal:Manage Pain Completed patient instructed on techniques to control pain including Pharmacological measures and Non-Pharmacological measures; rest and positioning/elevation. Instruct and educate on knowledge deficits Problem:PT Learning Assessment Goal:Demonstrate understanding of education Completed patient verbalize and/or demonstrate understanding of physical therapy education including diabetic care management, orthopedic condition management, surgical precautions, pain management, fall prevention strategies, home safety and functional activity. Education methods include: verbal cues and written instructions. [facility] Visit Details Visit Type -OT EVAL Discipline -Occupational Therapy Problems Problem Description Start Date Status Goals Interve ntions Medication Education Disciplines: Skilled Services 03/28/2024 Active 1 goal linked to scheduled/documen blas intervention 1 goal intervention scheduled/document ed in this visit Sepsis Disciplines: Skilled Services 03/28/2024 Active 1 goal linked to scheduled/documen blas intervention 1 goal intervention scheduled/document ed in this visit OT Referral Disciplines: Skilled Services 03/28/2024 Resolved on 03/30/2024 1 goal linked to scheduled/documen blas intervention 1 goal intervention scheduled/document ed in this visit Physician Specific Parameters Disciplines: Skilled Services 03/28/2024 Active 1 goal linked to scheduled/documen blsa intervention 2 goal interventions scheduled/document ed in this visit Risk for Falls Disciplines: Skilled Services 03/28/2024 Active 1 goal linked to scheduled/documen blas intervention 1 goal intervention scheduled/document ed in this visit Pain Disciplines: Skilled Services 03/28/2024 Active 1 goal linked to scheduled/documen blas intervention 1 goal intervention scheduled/document ed in this visit Diabetic Foot Care Disciplines: Skilled Services 03/28/2024 Active 1 goal linked to scheduled/documen blas intervention 1 goal intervention scheduled/document ed in this visit Discharge Disciplines: Skilled Services 03/28/2024 Active 1 goal linked to scheduled/documen blas intervention 1 goal intervention scheduled/document ed in this visit OT Learning Assessment Disciplines: OT 03/30/2024 Resolved on 03/30/2024 1 goal linked to scheduled/documen blas intervention 1 goal intervention scheduled/document ed in this visit OT ADLs/IADLs Disciplines: OT 03/30/2024 Resolved on 03/30/2024 1 goal linked to scheduled/documen blas intervention 1 goal intervention scheduled/document ed in this visit OT Functional Transfers Disciplines: OT 03/30/2024 Resolved on 03/30/2024 1 goal linked to scheduled/documen blas intervention 1 goal intervention scheduled/document ed in this visit Goals Goal Associated Problem Outcome Goal Met? Visit Notes Patient/caregiver will demonstrate ability to obtain, store, identify and administer ordered medications, keep accurate medication list in home, and adhere to medication schedule Description: Patient/caregiver will demonstrate ability to obtain, store, identify and administer ordered medications, keep accurate medication list in home, and adhere to medication schedule by 05-26-24. Medication Education No Patient/caregiver will be able to identify and report symptoms of sepsis Description: Patient/caregiver will be able to identify signs/symptoms of sepsis infection and will verbalize actions to take if suspected by 05-26-24. Sepsis No Patient will be referred to additional discipline as needed OT Referral Completed Yes Patient to maintain parameters within physician-specified ranges throughout certification period Physician Specific Parameters No Manage Risk for falls Description: Patient/caregiver will verbalize knowledge of individualized fall prevention strategies by 05-26-24. Risk for Falls No Manage Pain Description: Patient/caregiver will verbalize knowledge and understanding of appropriate techniques to control pain, including pain medication and non-pharmacological techniques. Patient will verbalize or demonstrate an acceptable level of pain as evidenced by a pain score of 3/10 and improvement in ability to perform activities of daily living to be achieved by 05-26-24. Pain No Manage diabetic foot care Description: Patient/caregiver will demonstrate basic understanding of and compliance with diabetic self-care management as evidenced by verbalizing purpose of daily foot care and assessment by 05-26-24. Diabetic Foot Care No Manage discharge planning Description: Patient/caregiver will verbalize understanding of ongoing discharge plan provided related to disease management, arrangements for outpatient and/or community services, obtaining medications, supplies, and DME, as needed throughout certification period. Discharge No Demonstrate understanding of education Description: Patient and/or caregiver will understand educational instruction to be achieved by 03/30/24. OT Learning Assessment Completed Yes Improved ADLs/IADLs performance Description: patient will verbalize understanding of instructions and demonstrate improved performance of feeding, grooming, upper body dressing, lower body dressing, bathing and toileting to independence as evidenced by improved Johanna ADL Index score to at least 70/100 to be achieved by 03/30/24. OT ADLs/IADLs Completed Yes Improved Functional Transfers Description: patient will demonstrate safe transfers to/from toilet and shower/tub with independent assistance and no verbal cues with use of DME to be achieved by 03/30/24. OT Functional Transfers Completed Yes Interventions Intervention Associated Problem/Goal Status Variance Visit Notes Medication Education Description: Evaluate/instruct patient/caregiver on obtaining, storing, identifying and administering ordered medications as well as keeping accurate medication list in the home and adhereing to medication schedule Problem:Medication Education Goal:Patient/caregive r will demonstrate ability to obtain, store, identify and administer ordered medications, keep accurate medication list in home, and adhere to medication schedule Completed Patient instructed on importance of keeping accurate medication list in home and adhering to medication schedule. Risk of Sepsis Description: Patient is at risk for sepsis. Monitor closely for s/s of sepsis. Problem:Sepsis Goal:Patient/caregive r will be able to identify and report symptoms of sepsis Completed OT evaluation and treatment Description: Evaluate and treat for the assessment of functional deficits and establishment of appropriate interventions and education to address: functional transfers, safety awareness, energy conservation and home safety and falls prevention recommendations. Problem:OT Referral Goal:Patient will be referred to additional discipline as needed Completed Blood Sugar Description: Notify if blood sugar 401 for more than 3 consecutive days. Problem:Physician Specific Parameters Goal:Patient to maintain parameters within physician-specified ranges throughout certification period Completed SPO2 Description: Notify Dr. Chery if pulse ox is <92% at rest. Problem:Physician Specific Parameters Goal:Patient to maintain parameters within physician-specified ranges throughout certification period Completed Instruct on individual fall risk factors and strategies to prevent falls and injuries caused by falls. Problem:Risk for Falls Goal:Manage Risk for falls Completed OT: Patient instructed on Eliminating Environmental Hazards: Keep pathways clear and Keep frequently used items within reach Instruct on pain and instruct on strategies to control pain Problem:Pain Goal:Manage Pain Completed patient instructed on techniques to control pain including Pharmacological measures and Non-Pharmacological measures; rest and positioning/elevation. Monitor lower extremities for skin lesions and educate on proper foot care Problem:Diabetic Foot Care Goal:Manage diabetic foot care Completed patient instructed on diabetic foot care including daily skin inspection and wash/dry feet thoroughly. Instruct on ongoing discharge plan Problem:Discharge Goal:Manage discharge planning Completed Ongoing Discharge plan: Discharge plan discussed with patient including frequency and duration for home OT and plan for transition to: caregiver assistance. Instruct and educate on knowledge deficits Problem:OT Learning Assessment Goal:Demonstrate understanding of education Completed Education methods include: verbal cues, tactile cues and visual cues. Patient/Caregiver has received education to improve knowledge and compliance with fall prevention strategies, orthopedic condition management, pain management, post surgical precautions, weight-bearing precautions, home safety, infection control precautions, functional adl/iadl activity, functional transfers and discharge planning. ADL/IADLs Training Problem:OT ADLs/IADLs Goal:Improved ADLs/IADLs performance Completed Instruct patient on safety and falls prevention and handheld shower use to facilite improved performance of feeding, grooming, upper body dressing, lower body dressing, bathing and toileting hygiene with independence Facility staff are available if pt requires assistance. Transfer Training Problem:OT Functional Transfers Goal:Improved Functional Transfers Completed Instruct patient on safe transfers and proper techniques including slow positional changes to perform to and from toilet and shower/tub with Indep assistance documented in this encounter [facility]'s home Plan of care note* Visit Details Visit Type -SN ROUTINE Discipline -Assisted Problems Problem Description Start Date Status Goals Interve ntions Medication Education Disciplines: Skilled Services 03/28/2024 Active 1 goal linked to scheduled/documen blas intervention 1 goal intervention scheduled/document ed in this visit Mental Health Disciplines: Skilled Services 03/28/2024 Active 1 goal linked to scheduled/documen blas intervention 2 goal interventions scheduled/document ed in this visit Sepsis Disciplines: Skilled Services 03/28/2024 Active 1 goal linked to scheduled/documen blas intervention 1 goal intervention scheduled/document ed in this visit Risk for skin breakdown Disciplines: Skilled Services 03/28/2024 Active 1 goal linked to scheduled/documen blas intervention 1 goal intervention scheduled/document ed in this visit Physician Specific Parameters Disciplines: Skilled Services 03/28/2024 Active 1 goal linked to scheduled/documen blas intervention 2 goal interventions scheduled/document ed in this visit Risk for Falls Disciplines: Skilled Services 03/28/2024 Active 1 goal linked to scheduled/documen blas intervention 1 goal intervention scheduled/document ed in this visit Pain Disciplines: Skilled Services 03/28/2024 Active 1 goal linked to scheduled/documen blas intervention 1 goal intervention scheduled/document ed in this visit Diabetic Foot Care Disciplines: Skilled Services 03/28/2024 Active 1 goal linked to scheduled/documen blas intervention 1 goal intervention scheduled/document ed in this visit Nutrition/Hydration Disciplines: Skilled Services 03/28/2024 Active 1 goal linked to scheduled/documen blas intervention 1 goal intervention scheduled/document ed in this visit High Risk Medications Disciplines: Skilled Services 03/28/2024 Active 1 goal linked to scheduled/documen blas intervention 3 goal interventions scheduled/document ed in this visit Discharge Disciplines: Skilled Services 03/28/2024 Active 1 goal linked to scheduled/documen blas intervention 2 goal interventions scheduled/document ed in this visit SN Integumentary/Wound s Disciplines: SN 03/28/2024 Active 1 goal linked to scheduled/documen blas intervention 3 goal interventions scheduled/document ed in this visit SN Diabetes Disciplines: SN 03/28/2024 Active 1 goal linked to scheduled/documen blas intervention 2 goal interventions scheduled/document ed in this visit SN Other significant comorbidities/disea se process Disciplines: 03/28/2024 Active 1 goal linked to scheduled/documen blas intervention 1 goal intervention scheduled/document ed in this visit SN Ortho Procedure/Surgery Disciplines: 03/28/2024 Active 1 goal linked to scheduled/documen [facility]as intervention 1 goal intervention scheduled/document ed in this visit SN Gastrointestinal Disciplines: 03/28/2024 Active 1 goal linked to scheduled/documen blas intervention 1 goal intervention scheduled/document ed in this visit SN Cardiovascular Condition Disciplines: 03/28/2024 Active 1 goal linked to scheduled/documen blas intervention 1 goal intervention scheduled/document ed in this visit Goals Goal Associated Problem Outcome Goal Met? Visit Notes Patient/caregiver will demonstrate ability to obtain, store, identify and administer ordered medications, keep accurate medication list in home, and adhere to medication schedule Description: Patient/caregiver will demonstrate ability to obtain, store, identify and administer ordered medications, keep accurate medication list in home, and adhere to medication schedule by 05-26-24. Medication Education No Improved management of mental health condition(s) Description: Patient/caregiver will teach back mental health symptom identification and management techniques by 05-26-24. Mental Health No Patient/caregiver will be able to identify and report symptoms of sepsis Description: Patient/caregiver will be able to identify signs/symptoms of sepsis infection and will verbalize actions to take if suspected by 05-26-24. Sepsis No Manage risk for skin breakdown Description: Patient/caregiver will verbalize and demonstrate understanding of the risks and measures to be taken to monitor and prevent skin breakdown by 05-26-24. Risk for skin breakdown No Patient to maintain parameters within physician-specified ranges throughout certification period Physician Specific Parameters No Manage Risk for falls Description: Patient/caregiver will verbalize knowledge of individualized fall prevention strategies by 05-26-24. Risk for Falls No Manage Pain Description: Patient/caregiver will verbalize knowledge and understanding of appropriate techniques to control pain, including pain medication and non-pharmacological techniques. Patient will verbalize or demonstrate an acceptable level of pain as evidenced by a pain score of 3/10 and improvement in ability to perform activities of daily living to be achieved by 05-26-24. Pain No Manage diabetic foot care Description: Patient/caregiver will demonstrate basic understanding of and compliance with diabetic self-care management as evidenced by verbalizing purpose of daily foot care and assessment by 05-26-24. Diabetic Foot Care No Manage Nutrition/Hydration Description: Patient/caregiver will verbalize/demonstrate knowledge of prescribed diet and/or healthy nutrition to be achieved by 05-26-24. Nutrition/Hydration No Patient/caregiver will teach back high risk medication side effect and precaution education Description: STG Patient/caregiver will verbalize understanding of high risk medication side effects and precautions to be achieved by 05-26-24. LTG Patient/caregiver will continue to verbalize understanding of high risk medication side effects and precautions throughout certification period. High Risk Medications No Manage discharge planning Description: Patient/caregiver will verbalize understanding of ongoing discharge plan provided related to disease management, arrangements for outpatient and/or community services, obtaining medications, supplies, and DME, as needed throughout certification period. Discharge No Patient/Caregiver will have improved healing and be free of signs and symptoms of complications Description: Patient/caregiver will verbalize management strategies to promote wound healing & prevent complications as evidenced by improved healing & no complications by 05-26-24. SN Integumentary/Wounds No Improved management of diabetes Description: Improve diabetic management as evidenced by patient/caregiver able to teach back diabetic management strategies by 05-26-24. SN Diabetes No Patient/Caregiver will verbalize and/or demonstrate understanding of additional comorbidity(s) or disease process affecting plan of care Description: Patient/Caregiver will verbalize and/or demonstrate understanding of comorbidities effect on health conditions by 05-26-24. SN Other significant comorbidities/disease process No Effective management of ortho post-op condition Description: Increase understanding of management of condition following orthopedic procedure/surgery as evidenced by patient's/caregiver's ability to teachback precautions and s/s of complications by 05-26-24. SN Ortho Procedure/Surgery No Improved management of GI disease/condition Description: Patient/Caregiver will demonstrate understanding of GI education as evidenced by improved management of gastrointestinal disease/condition by 05-26-24. SN Gastrointestinal No Improved management of cardiovascular disease Description: Improve patient/caregiver management of cardiac disease as evidenced by patient/caregiver ability to teach back cardiac management strategies by 05-26-24. SN Cardiovascular Condition No Interventions Intervention Associated Problem/Goal Status Variance Visit Notes Medication Education Description: Evaluate/instruct patient/caregiver on obtaining, storing, identifying and administering ordered medications as well as keeping accurate medication list in the home and adhereing to medication schedule Problem:Medication Education Goal:Patient/caregiver will demonstrate ability to obtain, store, identify and administer ordered medications, keep accurate medication list in home, and adhere to medication schedule Completed Patient instructed on importance of keeping accurate medication list in home, need to take up-to-date medication list to all medical provider appointments, adhering to medication schedule and proper storage of medications. Instruct on depression symptoms and management Description: PHQ-2 score: below 3 PHQ-9 Score: mild Problem:Mental Health Goal:Improved management of mental health condition(s) Completed Patient instructed on the following: signs of depression and when to report symptoms to physician, importance of medication adherence, record symptoms to assist with ongoing monitoring, coping skills & techniques, develop awareness of stressors, verbalize feelings and the importance of activity. Instruct on coping strategies Problem:Mental Health Goal:Improved management of mental health condition(s) Completed Risk of Sepsis Description: Patient is at risk for sepsis. Monitor closely for s/s of sepsis. Problem:Sepsis Goal:Patient/caregiver will be able to identify and report symptoms of sepsis Completed Instruct on the risks and measures to be taken to prevent skin breakdown Description: Patient's Jonas Score is: 18. A Jonas score <= to 18 indicates risk for skin breakdown. Problem:Risk for skin breakdown Goal:Manage risk for skin breakdown Completed patient instructed on maintaining skin integrity including: The need for every 1-2 hour turns, position changes, and maintaining activity as tolerated, Reducing risk of friction and shear, including use of draw sheet as appropriate, Elevating and protecting heels, Inspecting bony prominences, Routine skin care and Notifying [facility] clinician of changes to skin integrity Evaluation for pressure reduction surfaces completed for bed and wheelchair . Blood Sugar Description: Notify if blood sugar 401 for more than 3 consecutive days. Problem:Physician Specific Parameters Goal:Patient to maintain parameters within physician-specified ranges throughout certification period Completed SPO2 Description: Notify Dr. Chery if pulse ox is <92% at rest. Problem:Physician Specific Parameters Goal:Patient to maintain parameters within physician-specified ranges throughout certification period Completed Instruct on individual fall risk factors and strategies to prevent falls and injuries caused by falls. Problem:Risk for Falls Goal:Manage Risk for falls Completed SN: Patient and Caregiver instructed on Eliminating Environmental Hazards: Keep pathways clear, Move furniture from pathways, Keep rooms and walkways well lit, Wear supportive shoes or non-skid socks and Keep frequently used items within reach Instruct on pain and instruct on strategies to control pain Problem:Pain Goal:Manage Pain Completed patient instructed on techniques to control pain including Pharmacological measures and Non-Pharmacological measures; rest, positioning/elevation , mobility/therapeutic exercise, distraction, breathing/relaxation and use of DME/assistive devices. Monitor lower extremities for skin lesions and educate on proper foot care Problem:Diabetic Foot Care Goal:Manage diabetic foot care Completed patient instructed on diabetic foot care including daily skin inspection, wearing proper footwear/avoiding going barefoot, wash/dry feet thoroughly, applying moisturizer, avoiding between toes and toenail care. Define patient s appetite/hydration status and implement strategies to improve compliance with prescribed diet and/or healthy nutrition. Problem:Nutrition/Hydr ation Goal:Manage Nutrition/Hydration Completed instructed patient on implementing strategies to comply with prescribed diet, healthy nutrition and adequate hydration Opioids- educated on high risk medication Problem:High Risk Medications Goal:Patient/caregiver will teach back high risk medication side effect and precaution education Completed patient educated on taking medication(s) as prescribed by provider. Do not stop medication or alter doses without speaking with your provider. Discuss medication effectiveness or side effect concerns with your provider and home care team. Only take opioids as prescribed, do not share your medications, and take proper precautions in storing and properly disposing of opioids once no longer needed. Possible side effects of opioid medication including sedation, decreased rate of breathing, and constipation. Report over sedation to prescribing provider and practice deep breathing techniques every hour while awake. Prevent constipation by increasing water and fiber intake, increasing activity as tolerated, and use stool softener(s) as prescribed. Hypoglycemic (including insulin)- educated on high risk medication Problem:High Risk Medications Goal:Patient/caregiver will teach back high risk medication side effect and precaution education Completed patient educated on taking medication(s) as prescribed by provider. Do not stop medication or skip/alter doses without speaking with your provider. Discuss medication effectiveness or side effect concerns with your provider and home care team. Check blood sugars and keep log as ordered by provider. Monitor for side effects of hypoglycemia such as increased weakness or shaking, moist skin, sweating, fast heartbeat, dizziness, sudden hunger, confusion, pale skin, numbness in mouth or tongue, irritability, nervousness, unsteadiness, nightmares, bad dreams, and restless sleep. Checking your blood sugar routinely and eating a consistent diabetic diet can help regulate blood sugars and reduce side effects. Antiplatelet- educated on high risk medication Problem:High Risk Medications Goal:Patient/caregiver will teach back high risk medication side effect and precaution education Completed patient educated on taking medication(s) as prescribed by provider. Do not stop medication or alter doses without speaking with your provider. Discuss medication effectiveness or side effect concerns with your provider and home care team. Discuss all medications you are taking, even [id number] medicines, with your provider and pharmacist since many drugs can interact with antiplatelet medications. If you forget to take a dose, DO NOT take a double dose. Take the missed dose as soon as possible on the same day. DO NOT take a double dose the next day to make up for the missed dose. Watch for signs of abnormal or excessive bleeding and bruising (refer to Bleeding Precautions education). Call your health care provider right away if you suspect something is wrong. Instruct on ongoing discharge plan Problem:Discharge Goal:Manage discharge planning Completed Ongoing Discharge plan: Discharge plan discussed with patient including frequency and duration for home SN and plan for transition to: caregiver assistance. Instruct on importance of follow-up appts and continued monitoring with medical provider &/or chronic care clinic Problem:Discharge Goal:Manage discharge planning Completed Education provided on importance of compliance with follow-up appointment(s). Recommendations: patient/caregiver to follow up with scheduling appointment(s) for post-acute/primary care provider/chronic care clinic Wound Care: Perform wound care (1) Description: Wound Care Order: Incision location: right great toe Wound type (etiology): Incision Order: Cleanse with mild soap and water, Rinse and pat dry, paint with betadine, Cover with xeroform, 4x4, wrap with kerlix, secure with haritha wrap Frequency: every other day an as needed for soiled Wound care to be completed by caregiver except for scheduled SN wound care visits. Measure wound/incision at least weekly. Okay to substitute comparable products from home care formulary. Problem:SN Integumentary/Wounds Goal:Patient/Caregiver will have improved healing and be free of signs and symptoms of complications Completed Completed by SN. Patient did tolerate well. Instruct patient/caregiver healing process and management measures to promote healing and avoid complications Problem:SN Integumentary/Wounds Goal:Patient/Caregiver will have improved healing and be free of signs and symptoms of complications Completed patient instructed on the following: healing process, signs and symptoms of infection, importance of good nutrition, importance of managing blood sugars and when to report symptoms. Instruct Patient/Caregiver on wound/incision care procedure as ordered by physician Problem:SN Integumentary/Wounds Goal:Patient/Caregiver will have improved healing and be free of signs and symptoms of complications Completed patient instructed on wound care as ordered by Physician. Instruct on diabetes disease process and management of chronic condition Description: Patient has needs for education of diabetes. Problem:SN Diabetes Goal:Improved management of diabetes Completed patient assessed and instructed on diabetes disease process, how food and insulin affect blood sugar, diet education, how to carb count and recogonizing s/s of hypoglycemia and hyperglycemia as found in the diabetes self-care booklets. Ensure patient/caregiver has Living with Diabetes Booklet in home Description: SN to provide and refer to diabetes education booklet every visit. Problem:SN Diabetes Goal:Improved management of diabetes Completed Patient has diabetes self-care booklet. Assess and instruct patient/caregiver on other significant comorbidity(s) or diseae process affecting plan of care Description: Significant comorbidity(s) or diseae process affecting plan of care:Nicotine use disorder Problem:SN Other significant comorbidities/disease process Goal:Patient/Caregiver will verbalize and/or demonstrate understanding of additional comorbidity(s) or disease process affecting plan of care Completed patient instructed on nicotine disorder. Instruct on ortho post-op care and monitoring/prevention of complications Description: Patient is status-post amputation of right great toe Problem:SN Ortho Procedure/Surgery Goal:Effective management of ortho post-op condition Completed patient instructed on the following precautions/restricti ons:s/s of infection and weight-bearing status toe-touch weight-bearing as tolerated Constipation: Instruct Patient/Caregiver on measures to manage constipation Problem:SN Gastrointestinal Goal:Improved management of GI disease/condition Completed patient instructed on the following measures to relieve constipation: increase fluids, increase dietary fiber intake and increase activity as tolerated. Instructed on use of stool softener. Instruct on cardiovascular disease process and management of condition Description: Patient has following cardiac diagnosis(es): Hypertension. Problem:SN Cardiovascular Condition Goal:Improved management of cardiovascular disease Completed patient instructed on cardiac disease process, self monitoring & symptom reporting and Cardiac Diet. [facility] Visit Details Visit Type -SN ROUTINE Discipline -Assisted Problems Problem Description Start Date Status Goals Interve ntions Medication Education Disciplines: Skilled Services 03/28/2024 Active 1 goal linked to scheduled/documen blas intervention 1 goal intervention scheduled/document ed in this visit Mental Health Disciplines: Skilled Services 03/28/2024 Active 1 goal linked to scheduled/documen blas intervention 2 goal interventions scheduled/document ed in this visit Sepsis Disciplines: Skilled Services 03/28/2024 Active 1 goal linked to scheduled/documen blas intervention 1 goal intervention scheduled/document ed in this visit Risk for skin breakdown Disciplines: Skilled Services 03/28/2024 Active 1 goal linked to scheduled/documen blas intervention 1 goal intervention scheduled/document ed in this visit Physician Specific Parameters Disciplines: Skilled Services 03/28/2024 Active 1 goal linked to scheduled/documen blas intervention 2 goal interventions scheduled/document ed in this visit Risk for Falls Disciplines: Skilled Services 03/28/2024 Active 1 goal linked to scheduled/documen blas intervention 1 goal intervention scheduled/document ed in this visit Pain Disciplines: Skilled Services 03/28/2024 Active 1 goal linked to scheduled/documen blas intervention 1 goal intervention scheduled/document ed in this visit Diabetic Foot Care Disciplines: Skilled Services 03/28/2024 Active 1 goal linked to scheduled/documen blas intervention 1 goal intervention scheduled/document ed in this visit Nutrition/Hydration Disciplines: Skilled Services 03/28/2024 Active 1 goal linked to scheduled/documen blas intervention 1 goal intervention scheduled/document ed in this visit High Risk Medications Disciplines: Skilled Services 03/28/2024 Active 1 goal linked to scheduled/documen blas intervention 3 goal interventions scheduled/document ed in this visit Discharge Disciplines: Skilled Services 03/28/2024 Active 1 goal linked to scheduled/documen blas intervention 2 goal interventions scheduled/document ed in this visit Advance Directives Disciplines: Skilled Services 03/28/2024 Active 1 goal linked to scheduled/documen blas intervention 1 goal intervention scheduled/document ed in this visit SN Integumentary/Wound s Disciplines: SN 03/28/2024 Active 1 goal linked to scheduled/documen blas intervention 3 goal interventions scheduled/document ed in this visit SN Diabetes Disciplines: SN 03/28/2024 Active 1 goal linked to scheduled/documen blas intervention 2 goal interventions scheduled/document ed in this visit SN Other significant comorbidities/disea se process Disciplines: 03/28/2024 Active 1 goal linked to scheduled/documen blas intervention 1 goal intervention scheduled/document ed in this visit SN Ortho Procedure/Surgery Disciplines: 03/28/2024 Active 1 goal linked to scheduled/documen blas intervention 1 goal intervention scheduled/document ed in this visit SN Gastrointestinal Disciplines: 03/28/2024 Active 1 goal linked to scheduled/documen blas intervention 1 goal intervention scheduled/document ed in this visit SN Cardiovascular Condition Disciplines: 03/28/2024 Active 1 goal linked to scheduled/documen blas intervention 1 goal intervention scheduled/document ed in this visit Goals Goal Associated Problem Outcome Goal Met? Visit Notes Patient/caregiver will demonstrate ability to obtain, store, identify and administer ordered medications, keep accurate medication list in home, and adhere to medication schedule Description: Patient/caregiver will demonstrate ability to obtain, store, identify and administer ordered medications, keep accurate medication list in home, and adhere to medication schedule by 05-26-24. Medication Education No Improved management of mental health condition(s) Description: Patient/caregiver will teach back mental health symptom identification and management techniques by 05-26-24. Mental Health No Patient/caregiver will be able to identify and report symptoms of sepsis Description: Patient/caregiver will be able to identify signs/symptoms of sepsis infection and will verbalize actions to take if suspected by 05-26-24. Sepsis No Manage risk for skin breakdown Description: Patient/caregiver will verbalize and demonstrate understanding of the risks and measures to be taken to monitor and prevent skin breakdown by 05-26-24. Risk for skin breakdown No Patient to maintain parameters within physician-specified ranges throughout certification period Physician Specific Parameters No Manage Risk for falls Description: Patient/caregiver will verbalize knowledge of individualized fall prevention strategies by 05-26-24. Risk for Falls No Manage Pain Description: Patient/caregiver will verbalize knowledge and understanding of appropriate techniques to control pain, including pain medication and non-pharmacological techniques. Patient will verbalize or demonstrate an acceptable level of pain as evidenced by a pain score of 3/10 and improvement in ability to perform activities of daily living to be achieved by 05-26-24. Pain No Manage diabetic foot care Description: Patient/caregiver will demonstrate basic understanding of and compliance with diabetic self-care management as evidenced by verbalizing purpose of daily foot care and assessment by 05-26-24. Diabetic Foot Care No Manage Nutrition/Hydration Description: Patient/caregiver will verbalize/demonstrate knowledge of prescribed diet and/or healthy nutrition to be achieved by 05-26-24. Nutrition/Hydration No Patient/caregiver will teach back high risk medication side effect and precaution education Description: STG Patient/caregiver will verbalize understanding of high risk medication side effects and precautions to be achieved by 05-26-24. LTG Patient/caregiver will continue to verbalize understanding of high risk medication side effects and precautions throughout certification period. High Risk Medications No Manage discharge planning Description: Patient/caregiver will verbalize understanding of ongoing discharge plan provided related to disease management, arrangements for outpatient and/or community services, obtaining medications, supplies, and DME, as needed throughout certification period. Discharge No Patient/caregiver will make healthcare providers aware of and any changes to Advance Directives throughout certification period Advance Directives No Patient/Caregiver will have improved healing and be free of signs and symptoms of complications Description: Patient/caregiver will verbalize management strategies to promote wound healing & prevent complications as evidenced by improved healing & no complications by 05-26-24. SN Integumentary/Wounds No Improved management of diabetes Description: Improve diabetic management as evidenced by patient/caregiver able to teach back diabetic management strategies by 05-26-24. SN Diabetes No Patient/Caregiver will verbalize and/or demonstrate understanding of additional comorbidity(s) or disease process affecting plan of care Description: Patient/Caregiver will verbalize and/or demonstrate understanding of comorbidities effect on health conditions by 05-26-24. SN Other significant comorbidities/disease process No Effective management of ortho post-op condition Description: Increase understanding of management of condition following orthopedic procedure/surgery as evidenced by patient's/caregiver's ability to teachback precautions and s/s of complications by 05-26-24. SN Ortho Procedure/Surgery No Improved management of GI disease/condition Description: Patient/Caregiver will demonstrate understanding of GI education as evidenced by improved management of gastrointestinal disease/condition by 05-26-24. SN Gastrointestinal No Improved management of cardiovascular disease Description: Improve patient/caregiver management of cardiac disease as evidenced by patient/caregiver ability to teach back cardiac management strategies by 05-26-24. SN Cardiovascular Condition No Interventions Intervention Associated Problem/Goal Status Variance Visit Notes Medication Education Description: Evaluate/instruct patient/caregiver on obtaining, storing, identifying and administering ordered medications as well as keeping accurate medication list in the home and adhereing to medication schedule Problem:Medication Education Goal:Patient/caregiver will demonstrate ability to obtain, store, identify and administer ordered medications, keep accurate medication list in home, and adhere to medication schedule Completed Patient instructed on importance of keeping accurate medication list in home, need to take up-to-date medication list to all medical provider appointments, adhering to medication schedule and proper storage of medications. Instruct on depression symptoms and management Description: PHQ-2 score: below 3 PHQ-9 Score: mild Problem:Mental Health Goal:Improved management of mental health condition(s) Completed Patient instructed on the following: signs of depression and when to report symptoms to physician, importance of medication adherence, record symptoms to assist with ongoing monitoring, coping skills & techniques, develop awareness of stressors, verbalize feelings, the importance of activity, goal planning and schedules , the benefits of adequate nutrition and hydration, seeking support from family/friends and crisis and suicide prevention hotline use. Instruct on coping strategies Problem:Mental Health Goal:Improved management of mental health condition(s) Completed Risk of Sepsis Description: Patient is at risk for sepsis. Monitor closely for s/s of sepsis. Problem:Sepsis Goal:Patient/caregiver will be able to identify and report symptoms of sepsis Completed Instruct on the risks and measures to be taken to prevent skin breakdown Description: Patient's Jonas Score is: 18. A Jonas score <= to 18 indicates risk for skin breakdown. Problem:Risk for skin breakdown Goal:Manage risk for skin breakdown Completed patient instructed on maintaining skin integrity including: The need for every 1-2 hour turns, position changes, and maintaining activity as tolerated, Reducing risk of friction and shear, including use of draw sheet as appropriate, Elevating and protecting heels, Inspecting bony prominences, Routine skin care and Notifying [facility] clinician of changes to skin integrity Evaluation for pressure reduction surfaces completed for bed and wheelchair and recommendations made for repositio at least every 2 hours keep skin clean and dry use pressure cushions as directed and assure they are functioning properly. Blood Sugar Description: Notify if blood sugar 401 for more than 3 consecutive days. Problem:Physician Specific Parameters Goal:Patient to maintain parameters within physician-specified ranges throughout certification period Completed SPO2 Description: Notify Dr. Chery if pulse ox is <92% at rest. Problem:Physician Specific Parameters Goal:Patient to maintain parameters within physician-specified ranges throughout certification period Completed Instruct on individual fall risk factors and strategies to prevent falls and injuries caused by falls. Problem:Risk for Falls Goal:Manage Risk for falls Completed SN: Patient instructed on Eliminating Environmental Hazards: Keep pathways clear, Move furniture from pathways, Keep rooms and walkways well lit, Wear supportive shoes or non-skid socks and Keep frequently used items within reach Managing Impaired Functional Mobility: Use assistive device(s): wheelchair and Caregiver to provide assist with: ADL/IADLs Reducing Medication Risks: Recommended medication schedule and instructed on management of side effects to minimize fall risk and injuries caused by falls Instruct on pain and instruct on strategies to control pain Problem:Pain Goal:Manage Pain Completed patient instructed on techniques to control pain including Pharmacological measures and Non-Pharmacological measures; rest, positioning/elevation , mobility/therapeutic exercise, distraction, breathing/relaxation and use of DME/assistive devices. Monitor lower extremities for skin lesions and educate on proper foot care Problem:Diabetic Foot Care Goal:Manage diabetic foot care Completed patient instructed on diabetic foot care including daily skin inspection, wearing proper footwear/avoiding going barefoot, wash/dry feet thoroughly, applying moisturizer, avoiding between toes and toenail care. Define patient s appetite/hydration status and implement strategies to improve compliance with prescribed diet and/or healthy nutrition. Problem:Nutrition/Hydr ation Goal:Manage Nutrition/Hydration Completed reinforced patient on implementing strategies to comply with healthy nutrition and adequate hydration Opioids- educated on high risk medication Problem:High Risk Medications Goal:Patient/caregiver will teach back high risk medication side effect and precaution education Completed patient educated on taking medication(s) as prescribed by provider. Do not stop medication or alter doses without speaking with your provider. Discuss medication effectiveness or side effect concerns with your provider and home care team. Only take opioids as prescribed, do not share your medications, and take proper precautions in storing and properly disposing of opioids once no longer needed. Possible side effects of opioid medication including sedation, decreased rate of breathing, and constipation. Report over sedation to prescribing provider and practice deep breathing techniques every hour while awake. Prevent constipation by increasing water and fiber intake, increasing activity as tolerated, and use stool softener(s) as prescribed. Hypoglycemic (including insulin)- educated on high risk medication Problem:High Risk Medications Goal:Patient/caregiver will teach back high risk medication side effect and precaution education Completed patient educated on taking medication(s) as prescribed by provider. Do not stop medication or skip/alter doses without speaking with your provider. Discuss medication effectiveness or side effect concerns with your provider and home care team. Check blood sugars and keep log as ordered by provider. Monitor for side effects of hypoglycemia such as increased weakness or shaking, moist skin, sweating, fast heartbeat, dizziness, sudden hunger, confusion, pale skin, numbness in mouth or tongue, irritability, nervousness, unsteadiness, nightmares, bad dreams, and restless sleep. Checking your blood sugar routinely and eating a consistent diabetic diet can help regulate blood sugars and reduce side effects. Antiplatelet- educated on high risk medication Problem:High Risk Medications Goal:Patient/caregiver will teach back high risk medication side effect and precaution education Completed patient educated on taking medication(s) as prescribed by provider. Do not stop medication or alter doses without speaking with your provider. Discuss medication effectiveness or side effect concerns with your provider and home care team. Discuss all medications you are taking, even [id number] medicines, with your provider and pharmacist since many drugs can interact with antiplatelet medications. If you forget to take a dose, DO NOT take a double dose. Take the missed dose as soon as possible on the same day. DO NOT take a double dose the next day to make up for the missed dose. Watch for signs of abnormal or excessive bleeding and bruising (refer to Bleeding Precautions education). Call your health care provider right away if you suspect something is wrong. Instruct on ongoing discharge plan Problem:Discharge Goal:Manage discharge planning Completed Ongoing Discharge plan: Discharge plan discussed with patient including frequency and duration for home SN and plan for transition to: caregiver assistance. Instruct on importance of follow-up appts and continued monitoring with medical provider &/or chronic care clinic Problem:Discharge Goal:Manage discharge planning Completed Education provided on importance of compliance with follow-up appointment(s). Recommendations: patient/caregiver to follow up with scheduling appointment(s) for post-acute/primary care provider/chronic care clinic Determine patient's Advance Directive Status Description: Patient does not have advance directives. Patient/Caregiver declined Advance Directive information. Problem:Advance Directives Goal:Patient/caregiver will make healthcare providers aware of and any changes to Advance Directives throughout certification period Completed Discussed Advance Directives with Patient and/or Caregiver. Referred patient to Home Care handbook for further information on Healthcare DPOA & Living Will. Wound Care: Perform wound care (1) Description: Wound Care Order: Incision location: right great toe Wound type (etiology): Incision Order: Cleanse with mild soap and water, Rinse and pat dry, paint with betadine, Cover with xeroform, 4x4, wrap with kerlix, secure with haritha wrap Frequency: every other day an as needed for soiled Wound care to be completed by caregiver except for scheduled SN wound care visits. Measure wound/incision at least weekly. Okay to substitute comparable products from home care formulary. Problem:SN Integumentary/Wounds Goal:Patient/Caregiver will have improved healing and be free of signs and symptoms of complications Completed Completed by patient/caregiver completed independently . Patient did tolerate well. Instruct patient/caregiver healing process and management measures to promote healing and avoid complications Problem:SN Integumentary/Wounds Goal:Patient/Caregiver will have improved healing and be free of signs and symptoms of complications Completed patient instructed on the following: healing process, signs and symptoms of infection, importance of good nutrition, importance of managing blood sugars and when to report symptoms. Instruct Patient/Caregiver on wound/incision care procedure as ordered by physician Problem:SN Integumentary/Wounds Goal:Patient/Caregiver will have improved healing and be free of signs and symptoms of complications Completed patient instructed on and return demonstrated wound care as ordered by Physician. Instruct on diabetes disease process and management of chronic condition Description: Patient has needs for education of diabetes. Problem:SN Diabetes Goal:Improved management of diabetes Completed patient assessed and reinforced on diabetes disease process, diet education, how to carb count and recogonizing s/s of hypoglycemia and hyperglycemia as found in the diabetes self-care booklets. Ensure patient/caregiver has Living with Diabetes Booklet in home Description: SN to provide and refer to diabetes education booklet every visit. Problem:SN Diabetes Goal:Improved management of diabetes Completed Patient has diabetes self-care booklet. Assess and instruct patient/caregiver on other significant comorbidity(s) or diseae process affecting plan of care Description: Significant comorbidity(s) or diseae process affecting plan of care:Nicotine use disorder Problem:SN Other significant comorbidities/disease process Goal:Patient/Caregiver will verbalize and/or demonstrate understanding of additional comorbidity(s) or disease process affecting plan of care Completed patient instructed on nicotine disorder. Instruct on ortho post-op care and monitoring/prevention of complications Description: Patient is status-post amputation of right great toe Problem:SN Ortho Procedure/Surgery Goal:Effective management of ortho post-op condition Completed patient instructed on the following precautions/restricti ons:s/s of infection, use of assistive device:wheel chair and amputation right great tow Constipation: Instruct Patient/Caregiver on measures to manage constipation Problem:SN Gastrointestinal Goal:Improved management of GI disease/condition Completed patient instructed on the following measures to relieve constipation: increase fluids, increase dietary fiber intake and increase activity as tolerated. Instructed on use of stool softener. Instruct on cardiovascular disease process and management of condition Description: Patient has following cardiac diagnosis(es): Hypertension. Problem:SN Cardiovascular Condition Goal:Improved management of cardiovascular disease Completed patient instructed on cardiac disease process, self monitoring & symptom reporting and Cardiac Diet. documented in this encounter [facility]'s home Plan of care note* Visit Details Visit Type -SN AGENCY DC W V ISIT Discipline -Assisted Problems Problem Description Start Date Status Goals Interve ntions Medication Education Disciplines: Skilled Services 03/28/2024 Resolved on 04/14/2024 1 goal linked to scheduled/docume nted intervention Mental Health Disciplines: Skilled Services 03/28/2024 Resolved on 04/14/2024 1 goal linked to scheduled/docume nted intervention 1 goal intervention scheduled/documen blas in this visit Sepsis Disciplines: Skilled Services 03/28/2024 Resolved on 04/14/2024 1 goal linked to scheduled/docume nted intervention 1 goal intervention scheduled/documen blas in this visit PT Referral Disciplines: Skilled Services 03/28/2024 Resolved on 04/14/2024 1 goal linked to scheduled/docume nted intervention Risk for skin breakdown Disciplines: Skilled Services 03/28/2024 Resolved on 04/14/2024 1 goal linked to scheduled/docume nted intervention 1 goal intervention scheduled/documen blas in this visit Physician Specific Parameters Disciplines: Skilled Services 03/28/2024 Resolved on 04/14/2024 1 goal linked to scheduled/docume nted intervention 1 goal intervention scheduled/documen blas in this visit Risk for Falls Disciplines: Skilled Services 03/28/2024 Resolved on 04/14/2024 1 goal linked to scheduled/docume nted intervention 1 goal intervention scheduled/documen blas in this visit Pain Disciplines: Skilled Services 03/28/2024 Resolved on 04/14/2024 1 goal linked to scheduled/docume nted intervention 1 goal intervention scheduled/documen blas in this visit Diabetic Foot Care Disciplines: Skilled Services 03/28/2024 Resolved on 04/14/2024 1 goal linked to scheduled/docume nted intervention Nutrition/Hydration Disciplines: Skilled Services 03/28/2024 Resolved on 04/14/2024 1 goal linked to scheduled/docume nted intervention 1 goal intervention scheduled/documen blas in this visit High Risk Medications Disciplines: Skilled Services 03/28/2024 Resolved on 04/14/2024 1 goal linked to scheduled/docume nted intervention 1 goal intervention scheduled/documen blas in this visit Discharge Disciplines: Skilled Services 03/28/2024 Resolved on 04/14/2024 1 goal linked to scheduled/docume nted intervention 2 goal interventions scheduled/documen blas in this visit Advance Directives Disciplines: Skilled Services 03/28/2024 Resolved on 04/14/2024 1 goal linked to scheduled/docume nted intervention SN Integumentary/Wound s Disciplines: SN 03/28/2024 Resolved on 04/14/2024 1 goal linked to scheduled/docume nted intervention 3 goal interventions scheduled/documen blas in this visit SN Diabetes Disciplines: SN 03/28/2024 Resolved on 04/14/2024 1 goal linked to scheduled/docume nted intervention 1 goal intervention scheduled/documen blas in this visit SN Other significant comorbidities/disea se process Disciplines: SN 03/28/2024 Resolved on 04/14/2024 1 goal linked to scheduled/docume nted intervention SN Ortho Procedure/Surgery Disciplines: SN 03/28/2024 Resolved on 04/14/2024 1 goal linked to scheduled/docume nted intervention 1 goal intervention scheduled/documen blas in this visit SN Gastrointestinal Disciplines: SN 03/28/2024 Resolved on 04/14/2024 1 goal linked to scheduled/docume nted intervention SN Cardiovascular Condition Disciplines: SN 03/28/2024 Resolved on 04/14/2024 1 goal linked to scheduled/docume nted intervention Goals Goal Associated Problem Outcome Goal Met? Visit Notes Patient/caregiver will demonstrate ability to obtain, store, identify and administer ordered medications, keep accurate medication list in home, and adhere to medication schedule Description: Patient/caregiver will demonstrate ability to obtain, store, identify and administer ordered medications, keep accurate medication list in home, and adhere to medication schedule by 05-26-24. Medication Education Completed Yes Improved management of mental health condition(s) Description: Patient/caregiver will teach back mental health symptom identification and management techniques by 05-26-24. Mental Health Completed Yes Patient/caregiver will be able to identify and report symptoms of sepsis Description: Patient/caregiver will be able to identify signs/symptoms of sepsis infection and will verbalize actions to take if suspected by 05-26-24. Sepsis Completed Yes Patient will be referred to additional discipline as needed PT Referral Completed Yes Manage risk for skin breakdown Description: Patient/caregiver will verbalize and demonstrate understanding of the risks and measures to be taken to monitor and prevent skin breakdown by 05-26-24. Risk for skin breakdown Completed Yes Patient to maintain parameters within physician-specified ranges throughout certification period Physician Specific Parameters Completed Yes Manage Risk for falls Description: Patient/caregiver will verbalize knowledge of individualized fall prevention strategies by 05-26-24. Risk for Falls Completed Yes Manage Pain Description: Patient/caregiver will verbalize knowledge and understanding of appropriate techniques to control pain, including pain medication and non-pharmacological techniques. Patient will verbalize or demonstrate an acceptable level of pain as evidenced by a pain score of 3/10 and improvement in ability to perform activities of daily living to be achieved by 05-26-24. Pain Completed Yes Manage diabetic foot care Description: Patient/caregiver will demonstrate basic understanding of and compliance with diabetic self-care management as evidenced by verbalizing purpose of daily foot care and assessment by 05-26-24. Diabetic Foot Care Completed Yes Manage Nutrition/Hydration Description: Patient/caregiver will verbalize/demonstrate knowledge of prescribed diet and/or healthy nutrition to be achieved by 05-26-24. Nutrition/Hydration Completed Yes Patient/caregiver will teach back high risk medication side effect and precaution education Description: STG Patient/caregiver will verbalize understanding of high risk medication side effects and precautions to be achieved by 05-26-24. LTG Patient/caregiver will continue to verbalize understanding of high risk medication side effects and precautions throughout certification period. High Risk Medications Completed Yes Manage discharge planning Description: Patient/caregiver will verbalize understanding of ongoing discharge plan provided related to disease management, arrangements for outpatient and/or community services, obtaining medications, supplies, and DME, as needed throughout certification period. Discharge Completed Yes Patient/caregiver will make healthcare providers aware of and any changes to Advance Directives throughout certification period Advance Directives Completed Yes Patient/Caregiver will have improved healing and be free of signs and symptoms of complications Description: Patient/caregiver will verbalize management strategies to promote wound healing & prevent complications as evidenced by improved healing & no complications by 05-26-24. SN Integumentary/Wounds Completed Yes Improved management of diabetes Description: Improve diabetic management as evidenced by patient/caregiver able to teach back diabetic management strategies by 05-26-24. SN Diabetes Completed Yes Patient/Caregiver will verbalize and/or demonstrate understanding of additional comorbidity(s) or disease process affecting plan of care Description: Patient/Caregiver will verbalize and/or demonstrate understanding of comorbidities effect on health conditions by 05-26-24. SN Other significant comorbidities/disease process Completed Yes Effective management of ortho post-op condition Description: Increase understanding of management of condition following orthopedic procedure/surgery as evidenced by patient's/caregiver's ability to teachback precautions and s/s of complications by 05-26-24. SN Ortho Procedure/Surgery Completed Yes Improved management of GI disease/condition Description: Patient/Caregiver will demonstrate understanding of GI education as evidenced by improved management of gastrointestinal disease/condition by 05-26-24. SN Gastrointestinal Completed Yes Improved management of cardiovascular disease Description: Improve patient/caregiver management of cardiac disease as evidenced by patient/caregiver ability to teach back cardiac management strategies by 05-26-24. SN Cardiovascular Condition Completed Yes Interventions Intervention Associated Problem/Goal Status Variance Visit Notes Instruct on depression symptoms and management Description: PHQ-2 score: below 3 PHQ-9 Score: mild Problem:Mental Health Goal:Improved management of mental health condition(s) Completed Patient instructed on the following: signs of depression and when to report symptoms to physician, coping skills & techniques and the importance of activity. Risk of Sepsis Description: Patient is at risk for sepsis. Monitor closely for s/s of sepsis. Problem:Sepsis Goal:Patient/caregive r will be able to identify and report symptoms of sepsis Completed Instruct on the risks and measures to be taken to prevent skin breakdown Description: Patient's Jonas Score is: 18. A Jonas score <= to 18 indicates risk for skin breakdown. Problem:Risk for skin breakdown Goal:Manage risk for skin breakdown Completed patient instructed on maintaining skin integrity including: Routine skin care SPO2 Description: Notify Dr. Chery if pulse ox is <92% at rest. Problem:Physician Specific Parameters Goal:Patient to maintain parameters within physician-specified ranges throughout certification period Completed Instruct on individual fall risk factors and strategies to prevent falls and injuries caused by falls. Problem:Risk for Falls Goal:Manage Risk for falls Completed SN: Patient instructed on Eliminating Environmental Hazards: Keep pathways clear and Keep rooms and walkways well lit Instruct on pain and instruct on strategies to control pain Problem:Pain Goal:Manage Pain Completed patient instructed on techniques to control pain including Pharmacological measures and Non-Pharmacological measures; rest, positioning/elevation and mobility/therapeutic exercise. Define patient s appetite/hydration status and implement strategies to improve compliance with prescribed diet and/or healthy nutrition. Problem:Nutrition/Hyd ration Goal:Manage Nutrition/Hydration Completed reinforced patient on implementing strategies to comply with prescribed diet, healthy nutrition and adequate hydration Hypoglycemic (including insulin)- educated on high risk medication Problem:High Risk Medications Goal:Patient/caregive r will teach back high risk medication side effect and precaution education Completed patient educated on taking medication(s) as prescribed by provider. Do not stop medication or skip/alter doses without speaking with your provider. Discuss medication effectiveness or side effect concerns with your provider and home care team. Check blood sugars and keep log as ordered by provider. Monitor for side effects of hypoglycemia such as increased weakness or shaking, moist skin, sweating, fast heartbeat, dizziness, sudden hunger, confusion, pale skin, numbness in mouth or tongue, irritability, nervousness, unsteadiness, nightmares, bad dreams, and restless sleep. Checking your blood sugar routinely and eating a consistent diabetic diet can help regulate blood sugars and reduce side effects. Instruct on final discharge plan and deliver discharge instructions Problem:Discharge Goal:Manage discharge planning Completed Delivered Discharge plan: Discharge plan discussed with patient for plan for transition to: live at home with community assistance Instruct on importance of follow-up appts and continued monitoring with medical provider &/or chronic care clinic Problem:Discharge Goal:Manage discharge planning Completed Education provided on importance of compliance with follow-up appointment(s). Recommendations: appointment scheduled for suture removal. Wound Care: Perform wound care (1) Description: Wound Care Order: Incision location: right great toe Wound type (etiology): Incision Order: Cleanse with mild soap and water, Rinse and pat dry, paint with betadine, Cover with xeroform, 4x4, wrap with kerlix, secure with haritha wrap Frequency: every other day an as needed for soiled Wound care to be completed by caregiver except for scheduled SN wound care visits. Measure wound/incision at least weekly. Okay to substitute comparable products from home care formulary. Problem:SN Integumentary/Wounds Goal:Patient/Caregive r will have improved healing and be free of signs and symptoms of complications Completed Completed by SN. Patient did tolerate well. Instruct patient/caregiver healing process and management measures to promote healing and avoid complications Problem:SN Integumentary/Wounds Goal:Patient/Caregive r will have improved healing and be free of signs and symptoms of complications Completed patient instructed on the following: healing process, signs and symptoms of infection, importance of good nutrition, importance of managing blood sugars, smoking cessation and when to report symptoms. Instruct Patient/Caregiver on wound/incision care procedure as ordered by physician Problem:SN Integumentary/Wounds Goal:Patient/Caregive r will have improved healing and be free of signs and symptoms of complications Completed patient instructed on wound care as ordered by Physician. Instruct on diabetes disease process and management of chronic condition Description: Patient has needs for education of diabetes. Problem:SN Diabetes Goal:Improved management of diabetes Completed patient assessed and reinforced on diabetes disease process, monitoring blood sugars 4 x a day, how to use blood sugar meter and logging readings, how food and insulin affect blood sugar and diet education as found in the diabetes self-care booklets. Instruct on ortho post-op care and monitoring/prevention of complications Description: Patient is status-post amputation of right great toe Problem:SN Ortho Procedure/Surgery Goal:Effective management of ortho post-op condition Completed patient instructed on the following precautions/restrictio ns:s/s of infection and weight-bearing status [id number] RLE for heel transfer as tolerated documented in this encounter [facility] for referral (narrative)* Diagnostic Procedure Only (Routine) - Pending Review Specialty Diagnoses / Procedures Referred By Alex t Referred To Contact XR IMAGING Diagnoses Closed nondisplaced fracture of proximal phalanx of lesser toe of left foot, initial encounter Procedures XR FOOT GENERAL 3V AP/LAT/OBL LEFT RADEX FOOT COMPLETE MINIMUM [address] [place] [address] [place] [address] Xr Imaging Referral ID Status Reason Start Date Expiration Date Visits Requested Visits Authorized [id number] Pending Review Auto-Generat ed Referral 09/18/2022 10/18/2023 1 1 [facility] for referral (narrative)* Diagnostic Procedure Only (Routine) - Closed Specialty Diagnoses / Procedures Referred By Contac t Referred To Contact XR IMAGING Diagnoses Diabetic ulcer of toe associated with diabetes mellitus due to underlying condition, with necrosis of muscle, unspecified laterality (HCC) Procedures XR FOOT GENERAL 3V AP/LAT/OBL RIGHT RADEX FOOT COMPLETE MINIMUM 3 VIEWS [facility] [address] [place] [address] [place] [address] Referral ID Status Reason Start Date Expiration Date V isits Requested Visits Authorized [id number] Closed Auto-Generate d Referral 07/01/2023 07/30/2024 1 1 [facility] for referral (narrative)* Diagnostic Procedure Only (Routine) - Closed Specialty Diagnoses / Procedures Referred By Contac t Referred To Contact XR IMAGING Diagnoses Diabetic ulcer of toe associated with diabetes mellitus due to underlying condition, with necrosis of muscle, unspecified laterality (HCC) Procedures XR FOOT GENERAL 3V AP/LAT/OBL RIGHT RADEX FOOT COMPLETE MINIMUM 3 VIEWS [facility] [address] [place] [address] [place] [address] Referral ID Status Reason Start Date Expiration Date V isits Requested Visits Authorized [id number] Closed Auto-Generate d Referral 07/15/2023 08/13/2024 1 1 [facility] for referral (narrative)* Diagnostic Procedure Only (Routine) - Closed Specialty Diagnoses / Procedures Referred By Contac t Referred To Contact XR IMAGING Diagnoses Acute hematogenous osteomyelitis of right foot (HCC) Procedures XR FOOT GENERAL 3V AP/LAT/OBL RIGHT RADEX FOOT COMPLETE MINIMUM 3 VIEWS [facility] [address] [place] [address] [place] [address] Referral ID Status Reason Start Date Expiration Date V isits Requested Visits Authorized [id number] Closed Auto-Generate d Referral 09/09/2023 10/08/2024 1 1 [facility] for referral (narrative)* Diagnostic Procedure Only (Routine) - Pending Review Specialty Diagnoses / Procedures Referred By Contac t Referred To Contact XR IMAGING Diagnoses Diabetic ulcer of toe associated with diabetes mellitus due to underlying condition, with necrosis of muscle, unspecified laterality (HCC) Acute hematogenous osteomyelitis of right foot (HCC) Procedures XR TOE AP/LAT/OBL RIGHT RADEX TOE MINIMUM 2 VIEWS [facility] [address] [place] [address] [place] [address] Referral ID Status Reason Start Date Expiration Date Visits Requested Visits Authorized [id number] Pending Review Auto-Generat ed Referral 10/25/2023 11/23/2024 1 1 [facility] for referral (narrative)* Diagnostic Procedure Only (Routine) - Closed Specialty Diagnoses / Procedures Referred By Contac t Referred To Contact XR IMAGING Diagnoses Open wound of right great toe, subsequent encounter Type 2 diabetes mellitus with hyperglycemia, with long-term current use of insulin (HCC) Peripheral polyneuropathy Procedures XR FOOT GENERAL 3V AP/LAT/OBL RIGHT RADEX FOOT COMPLETE MINIMUM 3 VIEWS Mike Candelario APRN.CNS [address] [place] [address] [place] [address] Referral ID Status Reason Start Date Expiration Date V isits Requested Visits Authorized [id number] Closed Auto-Generate d Referral 06/07/2023 07/06/2024 1 1 [facility] for referral (narrative)* Diagnostic Procedure Only (Routine) - Closed Specialty Diagnoses / Procedures Referred By Contac t Referred To Contact XR IMAGING Diagnoses History of rheumatoid arthritis Rash of both hands Dysplastic toenail Procedures XR FOOT GENERAL 3V AP/LAT/OBL BILATERAL RADEX FOOT COMPLETE MINIMUM 3 VIEWS Leticia Orlando PA-C [address] [place] [address] [place] [address] Referral ID Status Reason Start Date Expiration Date V isits Requested Visits Authorized [id number] Closed Auto-Generate d Referral 10/23/2022 11/22/2023 1 1 * Diagnostic Procedure Only (Routine) - Closed Specialty Diagnoses / Procedures Referred By Contyoseph madrid Referred To Contact XR IMAGING Diagnoses History of rheumatoid arthritis Rash of both hands Dysplastic toenail Procedures XR HAND GENERAL 3V PA/LAT/OBL BILATERAL RADEX HAND MINIMUM 3 VIEWS Leticia Orlando PA-C [address] [place] [id number] [place] [address] Referral ID Status Reason Start Date Expiration Date V isits Requested Visits Authorized [id number] Closed Auto-Generate d Referral 10/23/2022 11/22/2023 1 1 [facility] for referral (narrative)* Diagnostic Procedure Only (Routine) - New Request Specialty Diagnoses / Procedures Referred By Contyoseph t Referred To Contact XR IMAGING Diagnoses Ulcer of toe of right foot, with fat layer exposed (HCC) Other acute osteomyelitis of right foot (HCC) Procedures XR FOOT GENERAL 3V AP/LAT/OBL RIGHT RADEX FOOT COMPLETE MINIMUM 3 VIEWS [facility] [address] [place] [address] [place] [address] Referral ID Status Reason Start Date Expiration Date Visits Requested Visits Authorized [id number] New Request Auto-Generat ed Referral 04/08/2025 1 1 [facility] for visit Narrative* Diagnostic Procedure Only (Routine) - Closed Specialty Diagnoses / Procedures Referred By Contac t Referred To Contact XR IMAGING Diagnoses Diabetic ulcer of toe associated with diabetes mellitus due to underlying condition, with necrosis of muscle, unspecified laterality (HCC) Procedures XR FOOT GENERAL 3V AP/LAT/OBL RIGHT RADEX FOOT COMPLETE MINIMUM 3 VIEWS [facility] [address] [place] [address] [place] [address] Referral ID Status Reason Start Date Expiration Date V isits Requested Visits Authorized [id number] Closed Auto-Generate d Referral 07/01/2023 07/30/2024 1 1 [facility] for visit Narrative* Diagnostic Procedure Only (Routine) - Closed Specialty Diagnoses / Procedures Referred By Contac t Referred To Contact XR IMAGING Diagnoses Diabetic ulcer of toe associated with diabetes mellitus due to underlying condition, with necrosis of muscle, unspecified laterality (HCC) Procedures XR FOOT GENERAL 3V AP/LAT/OBL RIGHT RADEX FOOT COMPLETE MINIMUM 3 VIEWS [address] [place] [address] [place] [address] Referral ID Status Reason Start Date Expiration Date V isits Requested Visits Authorized [id number] Closed Auto-Generate d Referral 07/15/2023 08/13/2024 1 1 [facility] for visit Narrative* Diagnostic Procedure Only (Routine) - Closed Specialty Diagnoses / Procedures Referred By Contac t Referred To Contact XR IMAGING Diagnoses Closed nondisplaced fracture of proximal phalanx of lesser toe of left foot, initial encounter Procedures XR FOOT GENERAL 3V AP/LAT/OBL LEFT RADEX FOOT COMPLETE MINIMUM 3 VIEWS Rachel Chery MD [facility] [place] [address] Rachel Chery MD [address] [place] [address] Referral ID Status Reason Start Date Expiration Date V isits Requested Visits Authorized [id number] Closed Auto-Generate d Referral 10/06/2022 10/07/2023 1 1 [facility] for visit Narrative* Diagnostic Procedure Only (Routine) - Closed Specialty Diagnoses / Procedures Referred By Contac t Referred To Contact XR IMAGING Diagnoses Acute hematogenous osteomyelitis of right foot (HCC) Procedures XR FOOT GENERAL 3V AP/LAT/OBL RIGHT RADEX FOOT COMPLETE MINIMUM 3 VIEWS [facility] [address] [place] [address] [place] [address] Referral ID Status Reason Start Date Expiration Date V isits Requested Visits Authorized [id number] Closed Auto-Generate d Referral 09/09/2023 10/08/2024 1 1 [facility] for visit Narrative* Diagnostic Procedure Only (Routine) - Closed Specialty Diagnoses / Procedures Referred By Contac t Referred To Contact XR IMAGING Diagnoses Ulcer of toe of right foot, with fat layer exposed (HCC) Procedures XR FOOT GENERAL 3V AP/LAT/OBL RIGHT RADEX FOOT COMPLETE MINIMUM 3 VIEWS [facility] [address] [place] [address] [place] [address] Referral ID Status Reason Start Date Expiration Date V isits Requested Visits Authorized [id number] Closed Auto-Generate d Referral 12/03/2023 01/01/2025 1 1 [facility] for visit Narrative* Diagnostic Procedure Only (Routine) - Closed Specialty Diagnoses / Procedures Referred By Contac t Referred To Contact XR IMAGING Diagnoses Open wound of right great toe, subsequent encounter Type 2 diabetes mellitus with hyperglycemia, with long-term current use of insulin (HCC) Peripheral polyneuropathy Procedures XR FOOT GENERAL 3V AP/LAT/OBL RIGHT RADEX FOOT COMPLETE MINIMUM 3 VIEWS Mike Candelario, PLEATING MACHINE OPERATOR.UNATTENDED GROUND SENSOR SPECIALIST [address] [place] [address] [place] [address] Referral ID Status Reason Start Date Expiration Date V isits Requested Visits Authorized [id number] Closed Auto-Generate d Referral 06/07/2023 07/06/2024 1 1 [facility] for visit Narrative* Diagnostic Procedure Only (Routine) - Closed Specialty Diagnoses / Procedures Referred By Contac t Referred To Contact XR IMAGING Diagnoses History of rheumatoid arthritis Rash of both hands Dysplastic toenail Procedures XR FOOT GENERAL 3V AP/LAT/OBL BILATERAL RADEX FOOT COMPLETE MINIMUM 3 VIEWS Leticia Orlando PA-C [address] [place] [address] [place] [address] Referral ID Status Reason Start Date Expiration Date V isits Requested Visits Authorized [id number] Closed Auto-Generate d Referral 10/23/2022 11/22/2023 1 1 [facility] Summary Purpose Family History No Family History Records Found Relationship Condition Age at Onset Recorded Date/T maikol mother Diabetes mellitus Unknown father Diabetes mellitus Unknown Hypertension Unknown Advance Directives No Advanced Directives Records Found Date Activated Date Inactivated Comments 03/22/2024 10:41 PM 03/27/2024 1:56 PM Question Answer Comments Full Code Order Discussed With: Patient Advance Directive Response Recorded Date/ Time Living Will No January 16 6:17pm Power of Fruit Buying Grader No January 16, 2021 6:17pm Advance Directive Response Recorded Date/ Time Living Will Yes April 10 10:27am Power of Fruit Buying Grader No April 10, 2022 10:27am Advance Directive Response Recorded Date/ Time Name of Medical Power of Fruit Buying Grader mother April 10, 2022 11:25pm Living Will Yes April 10 11:25pm Power of Fruit Buying Grader No April 10, 2022 11:25pm Advance Directive Response Recorded Date/ Time Living Will Yes April 11 12:25am Power of Fruit Buying Grader No April 11, 2022 12:25am Advance Directive Response Recorded Date/ Time Living Will Yes March 17 5:47am Power of Fruit Buying Grader No March 17, 2023 5:47am Advance Directive Response Recorded Date/ Time Living Will No March 18 8:09pm Power of Fruit Buying Grader No March 18, 2023 8:09pm Advance Directive Response Recorded Date/ Time Living Will No March 18 7:09pm Power of Fruit Buying Grader No March 18, 2023 7:09pm Date Activated Date Inactivated Comments 03/22/2024 10:41 PM Date Activated Date Inactivated Comments 03/28/2024 5:58 PM Date Activated Date Inactivated Comments 03/22/2024 10:41 PM 03/27/2024 1:56 PM Question Answer Comments Full Code Order Discussed With: Patient Date Activated Date Inactivated Comments 03/28/2024 5:58 PM Date Activated Date Inactivated Comments 03/22/2024 10:41 PM 03/27/2024 1:56 PM Question Answer Comments Full Code Order Discussed With: Patient Chief Complaint and Reason for Visit Chief Complaint WOUND WOUND WOUND WOUND Reason for Visit Diabetic ulcer of le ft heel Type 2 diabetes mellitus Chief Complaint WOUND WOUND WOUND WOUND WOUND WOUND WOUND WOUND WOUND Reason for Visit Diabetic ulcer of le ft heel Tobacco use Type 2 diabetes mellitus Diabetic ulcer of left heel Tobacco use Type 2 diabetes mellitus Chief Complaint WOUND WOUND WOUND WOUND WOUND WOUND WOUND WOUND WOUND WOUND WOUND WOUND WOUND Reason for Visit Diabetic ulcer of le ft heel Tobacco use Type 2 diabetes mellitus Diabetic ulcer of left heel Tobacco use Type 2 diabetes mellitus Diabetic ulcer of left heel Tobacco use Type 2 diabetes mellitus Chief Complaint WOUND WOUND WOUND WOUND WOUND WOUND WOUND WOUND WOUND WOUND HYPERGLYCEMIA Reason for Visit Diabetic ulcer of le ft heel Tobacco use Type 2 diabetes mellitus Diabetic ulcer of left heel Tobacco use Type 2 diabetes mellitus Diabetic ulcer of left heel Tobacco use Type 2 diabetes mellitus Chief Complaint WOUND WOUND WOUND WOUND WOUND WOUND WOUND WOUND HYPERGLYCEMIA worthy Reason for Visit Diabetic ulcer of le ft heel Tobacco use Type 2 diabetes mellitus Diabetic ulcer of left heel Tobacco use Type 2 diabetes mellitus Chief Complaint wound wound Reason for Visit Decubitus ulcer of l eft buttock, stage 2 Diabetic ulcer of left heel Diabetic ulcer of right heel Tobacco use Type 2 diabetes mellitus Chief Complaint wound wound [facility] WORK Reason for Visit Decubitus ulcer of l eft buttock, stage 2 Diabetic ulcer of left heel Diabetic ulcer of right heel Tobacco use Type 2 diabetes mellitus Chief Complaint wound wound [facility] Reason for Visit Decubitus ulcer of l eft buttock, stage 2 Diabetic ulcer of left heel Diabetic ulcer of right heel Tobacco use Type 2 diabetes mellitus Chief Complaint wound wound [facility] [employer] RAJINDER FOOT PAIN Reason for Visit Decubitus ulcer of l eft buttock, stage 2 Diabetic ulcer of left heel Diabetic ulcer of right heel Tobacco use Type 2 diabetes mellitus Chief Complaint wound wound [facility] [employer] RAJINDER FOOT PAIN n/v Reason for Visit Decubitus ulcer of l eft buttock, stage 2 Diabetic ulcer of left heel Diabetic ulcer of right heel Tobacco use Type 2 diabetes mellitus Chief Complaint wound wound [facility] LABWORK RAJINDER FOOT PAIN n/v Reason for Visit Decubitus ulcer of l eft buttock, stage 2 Diabetic ulcer of left heel Diabetic ulcer of right heel Tobacco use Type 2 diabetes mellitus Reason for Referral Specialty Diagnoses / Procedures Referred By Alex t Referred To Contact Endocrinology Diagnoses Type 2 diabetes mellitus with other specified complication, with long-term current use of insulin (HCC) Procedures CONSULT TO ENDOCRINOLOGY OFFICE/OUTPATIENT [facility] 60-74 MINUTES Mike Candelario, PLEATING MACHINE OPERATOR.UNATTENDED GROUND SENSOR SPECIALIST [address] [place] [address] Referral ID Status Reason Start Date Expiration Date Visits Requested Visits Authorized [id number] Pending Review PCP Requested Referral 01/30/2022 01/30/2023 1 1 Specialty Diagnoses / Procedures Referred By Alex t Referred To Contact Psychology Diagnoses Depression, unspecified depression type Procedures CONSULT TO PSYCHOLOGY OFFICE/OUTPATIENT [facility] 60-74 MINUTES Mike Candelario, PLEATING MACHINE OPERATOR.UNATTENDED GROUND SENSOR SPECIALIST [address] [place] [address] Referral ID Status Reason Start Date Expiration Date Visits Requested Visits Authorized [id number] Pending Review PCP Requested Referral 01/30/2022 01/30/2023 1 1 Specialty Diagnoses / Procedures Referred By Alex t Referred To Contact Dermatology Diagnoses Eczema, unspecified type Procedures CONSULT TO DERMATOLOGY Mike Candelario, AILIN.UNATTENDED GROUND SENSOR SPECIALIST [address] [place] [address] Referral ID Status Reason Start Date Expiration Date Visits Requested Visits Authorized [id number] Ref Not Required PCP Requested Referral 01/30/2022 01/30/2023 1 1 Specialty Diagnoses / Procedures Referred By Hilarioac t Referred To Contact Rheumatology Diagnoses History of rheumatoid arthritis Procedures CONSULT TO RHEUM/IMMUN DISEASE OFFICE/OUTPATIENT [facility] 60-74 MINUTES Mike Candelario, PLEATING MACHINE OPERATOR.UNATTENDED GROUND SENSOR SPECIALIST [address] [place] [address] Referral ID Status Reason Start Date Expiration Date Visits Requested Visits Authorized [id number] Authorized PCP Requested Referral 04/24/2022 04/24/2023 1 1 Specialty Diagnoses / Procedures Referred By Contac t Referred To Contact Diagnoses Daytime sleepiness Snoring Essential hypertension Limited mobility Cognitive deficits Procedures CONSULT TO SLEEP MEDICINE - ADULT OFFICE/OUTPATIENT [facility] 60-74 MINUTES Mike Candelario, PLEATING MACHINE OPERATOR.UNATTENDED GROUND SENSOR SPECIALIST [address] [place] [address] Referral ID Status Reason Start Date Expiration Date Visits Requested Visits Authorized [id number] Pending Review PCP Requested Referral 04/24/2022 04/24/2023 1 1 Specialty Diagnoses / Procedures Referred By Contac t Referred To Contact Podiatry Diagnoses Closed displaced fracture of proximal phalanx of lesser toe of left foot, initial encounter Procedures CONSULT TO PODIATRY OFFICE/OUTPATIENT [facility] 60-74 MINUTES Mike Candelario, PLEATING MACHINE OPERATOR.UNATTENDED GROUND SENSOR SPECIALIST [address] [place] [address] Referral ID Status Reason Start Date Expiration Date Visits Requested Visits Authorized [id number] Pending Review PCP Requested Referral 09/07/2022 09/07/2023 1 1 Specialty Diagnoses / Procedures Referred By Contac t Referred To Contact Diagnoses Neuropathy Type 2 diabetes mellitus with other specified complication, with long-term current use of insulin (HCC) Peripheral polyneuropathy Teresa Griffin, PLEATING MACHINE OPERATOR.M1 [employer] [address] [place] [address] Referral ID Status Reason Start Date Expiration Date V isits Requested Visits Authorized [id number] Authorized 05/17/2022 05/16/2023 1 1 Specialty Diagnoses / Procedures Referred By Contac t Referred To Contact MR IMAGING Diagnoses Other acute osteomyelitis of right foot (HCC) Procedures MRI FOOT/TOES WO/W IVCON RIGHT MRI LOWER EXTREM OTH/THN JT W/O & W/CONTR MATR [facility] [address] [place] [address] [place] [address] Referral ID Status Reason Start Date Expiration Date V isits Requested Visits Authorized [id number] Closed Auto-Generate d Referral 08/19/2023 05/16/2024 1 1 Specialty Diagnoses / Procedures Referred By Contac t Referred To Contact Diagnoses Neuropathy Type 2 diabetes mellitus with other specified complication, with long-term current use of insulin (HCC) Peripheral polyneuropathy Mike Candelario, AILIN.UNATTENDED GROUND SENSOR SPECIALIST [address] [place] [address] Referral ID Status Reason Start Date Expiration Date Visits Re quested Visits Authorized [id number] Closed 1 1 Specialty Diagnoses / Procedures Referred By Contac t Referred To Contact Hematology Diagnoses Other iron deficiency anemia Procedures CONSULT TO HEMATOLOGY OFFICE/OUTPATIENT [facility] 60 MINUTES [address] [place] [address] Referral ID Status Reason Start Date Expiration Date Visits Requested Visits Authorized [id number] Authorized PCP Requested Referral 09/14/2023 09/13/2024 1 1 Specialty Diagnoses / Procedures Referred By Contac t Referred To Contact Coral Martinez PLEATING MACHINE OPERATOR.M1 [employer] [address] [id number] Referral ID Status Reason Start Date Expiration Date V isits Requested Visits Authorized [id number] Authorized 05/17/2023 05/16/2024 1 1 Specialty Diagnoses / Procedures Referred By Contac t Referred To Contact Gastroenterology Diagnoses Controlled type 2 diabetes mellitus without complication, with long-term current use of insulin (HCC) Procedures CONSULT TO GASTROENTEROLOGY OFFICE/OUTPATIENT [facility] 60 MINUTES Coral Martinez PLEATING MACHINE OPERATOR.M1 [employer] [address] [address] [id number] Referral ID Status Reason Start Date Expiration Date Visits Requested Visits Authorized [id number] Authorized PCP Requested Referral 11/10/2023 11/09/2024 1 1 Specialty Diagnoses / Procedures Referred By Contac t Referred To Contact Diagnoses Neuropathy Type 2 diabetes mellitus with other specified complication, with long-term current use of insulin (HCC) Peripheral polyneuropathy Rachel Chery MD [address] [place] [address] Referral ID Status Reason Start Date Expiration Date Visits Re quested Visits Authorized [id number] Closed 1 1 Specialty Diagnoses / Procedures Referred By Contac t Referred To Contact MR IMAGING Diagnoses Other acute osteomyelitis of right foot (HCC) Procedures MRI FOOT/TOES WO IVCON RIGHT MRI LOWER EXTREM OTH/THN JT W/O CONTR MATRL [facility] [address] [place] [address] [place] [address] Referral ID Status Reason Start Date Expiration Date Visits Requested Visits Authorized [id number] Authorized Auto-Generat ed Referral 12/03/2023 01/01/2025 1 1 Specialty Diagnoses / Procedures Referred By Contac t Referred To Contact XR IMAGING Diagnoses Ulcer of toe of right foot, with fat layer exposed (HCC) Procedures XR FOOT GENERAL 3V AP/LAT/OBL RIGHT RADEX FOOT COMPLETE MINIMUM 3 VIEWS [facility] [address] [place] [id number] [place] [address] Referral ID Status Reason Start Date Expiration Date V isits Requested Visits Authorized [id number] Closed Auto-Generate d Referral 12/03/2023 01/01/2025 1 1 Referral ID Status Reason Start Date Expiration Date V isits Requested Visits Authorized [id number] Closed Auto-Generate d Referral 12/03/2023 01/01/2025 1 1 Specialty Diagnoses / Procedures Referred By Contac t Referred To Contact Psychology Diagnoses Depression, unspecified depression type Procedures CONSULT TO PSYCHOLOGY OFFICE/OUTPATIENT [facility] 60 MINUTES Mike Candelario, PLEATING MACHINE OPERATOR.UNATTENDED GROUND SENSOR SPECIALIST [address] [place] [address] Referral ID Status Reason Start Date Expiration Date Visits Requested Visits Authorized [id number] Pending Review PCP Requested Referral 05/25/2024 05/25/2025 1 1 Specialty Diagnoses / Procedures Referred By Contac t Referred To Contact Pain Management Diagnoses Peripheral polyneuropathy Procedures CONSULT TO PAIN MGT OFFICE/OUTPATIENT [facility] 60 MINUTES Mike Candelario, PLEATING MACHINE OPERATOR.UNATTENDED GROUND SENSOR SPECIALIST [address] [place] [address] Referral ID Status Reason Start Date Expiration Date Visits Requested Visits Authorized [id number] Authorized PCP Requested Referral 05/25/2024 05/25/2025 1 1 Specialty Diagnoses / Procedures Referred By Contyoseph madrid Referred To Contact Ophthalmology Diagnoses Type 2 diabetes mellitus, with long-term current use of insulin (HCC) Screening for diabetic retinopathy Procedures CONSULT TO OPHTHALMOLOGY OFFICE/OUTPATIENT [facility] 60 MINUTES Mike Candelario, PLEATING MACHINE OPERATOR.UNATTENDED GROUND SENSOR SPECIALIST [address] [place] [address] Referral ID Status Reason Start Date Expiration Date Visits Requested Visits Authorized [id number] Authorized PCP Requested Referral 05/25/2024 05/25/2025 1 1 Medications Administered Section Administered Medications Medication Order MAR Action Action Date Dose Rate Site tuberculin skin test, unspecified formulation Given 12/22/2022 0.1 ml tuberculin skin test, unspecified formulation Given 12/11/2022 0.1 ml Additional Source Comments (unrecognized sect ion and content) No Status Records FoundNo Status Records FoundNo Status Records FoundNo Status Records FoundNo Status Records FoundNo Status Records FoundNo Status Records FoundNo Status Records Found INFORMATION SOURCE (unrecogn ized section and content) DATE CREATED AUTHOR 05/18/2018 [facility] oniel Morel DATE CREATED AUTHOR AUTHOR'S ORGANIZ ATION 06/11/2018 [facility] DATE CREATED AUTHOR AUTHOR'S ORGANIZ ATION 12/10/2018 [facility] DATE CREATED AUTHOR AUTHOR'S ORGANIZ ATION 01/09/2019 [facility] DATE CREATED AUTHOR AUTHOR'S ORGANIZ ATION 10/17/2021 [facility] DATE CREATED AUTHOR AUTHOR'S ORGANIZ ATION 01/19/2024 [facility] DATE CREATED AUTHOR AUTHOR'S ORGANIZ ATION 04/03/2024 [facility] DATE CREATED AUTHOR AUTHOR'S ORGANIZ ATION 11/14/2024 [facility] Source Comments (unrecognize d section and content) In the event this informatio n is protected by the Federal Confidentiality of Alcohol and Drug Abuse Patient Records regulations: The Federal rules restrict any use of the information to criminally investigate or prosecute any alcohol or drug abuse patient.[facility] the event this information is protected by the Federal Confidentiality of Alcohol and Drug Abuse Patient Records regulations: The Federal rules restrict any use of the information to criminally investigate or prosecute any alcohol or drug abuse patient.[facility]In the event this information is protected by the Federal Confidentiality of Alcohol and Drug Abuse Patient Records regulations: The Federal rules restrict any use of the information to criminally investigate or prosecute any alcohol or drug abuse patient.[facility] HospitalIn the event this information is protected by the Federal Confidentiality of Alcohol and Drug Abuse Patient Records regulations: The Federal rules restrict any use of the information to criminally investigate or prosecute any alcohol or drug abuse patient.[facility] HospitalIn the event this information is protected by the Federal Confidentiality of Alcohol and Drug Abuse Patient Records regulations: The Federal rules restrict any use of the information to criminally investigate or prosecute any alcohol or drug abuse patient.[facility] HospitalIn the event this information is protected by the Federal Confidentiality of Alcohol and Drug Abuse Patient Records regulations: The Federal rules restrict any use of the information to criminally investigate or prosecute any alcohol or drug abuse patient.[facility] HospitalIn the event this information is protected by the Federal Confidentiality of Alcohol and Drug Abuse Patient Records regulations: The Federal rules restrict any use of the information to criminally investigate or prosecute any alcohol or drug abuse patient.[facility] HospitalIn the event this information is protected by the Federal Confidentiality of Alcohol and Drug Abuse Patient Records regulations: The Federal rules restrict any use of the information to criminally investigate or prosecute any alcohol or drug abuse patient.[facility] HospitalIn the event this information is protected by the Federal Confidentiality of Alcohol and Drug Abuse Patient Records regulations: The Federal rules restrict any use of the information to criminally investigate or prosecute any alcohol or drug abuse patient.[facility] HospitalIn the event this information is protected by the Federal Confidentiality of Alcohol and Drug Abuse Patient Records regulations: The Federal rules restrict any use of the information to criminally investigate or prosecute any alcohol or drug abuse patient.[facility] HospitalIn the event this information is protected by the Federal Confidentiality of Alcohol and Drug Abuse Patient Records regulations: The Federal rules restrict any use of the information to criminally investigate or prosecute any alcohol or drug abuse patient.[facility] HospitalIn the event this information is protected by the Federal Confidentiality of Alcohol and Drug Abuse Patient Records regulations: The Federal rules restrict any use of the information to criminally investigate or prosecute any alcohol or drug abuse patient.[facility] HospitalIn the event this information is protected by the Federal Confidentiality of Alcohol and Drug Abuse Patient Records regulations: The Federal rules restrict any use of the information to criminally investigate or prosecute any alcohol or drug abuse patient.[facility] HospitalIn the event this information is protected by the Federal Confidentiality of Alcohol and Drug Abuse Patient Records regulations: The Federal rules restrict any use of the information to criminally investigate or prosecute any alcohol or drug abuse patient.[facility] HospitalIn the event this information is protected by the Federal Confidentiality of Alcohol and Drug Abuse Patient Records regulations: The Federal rules restrict any use of the information to criminally investigate or prosecute any alcohol or drug abuse patient.[facility] HospitalIn the event this information is protected by the Federal Confidentiality of Alcohol and Drug Abuse Patient Records regulations: The Federal rules restrict any use of the information to criminally investigate or prosecute any alcohol or drug abuse patient.[facility] HospitalIn the event this information is protected by the Federal Confidentiality of Alcohol and Drug Abuse Patient Records regulations: The Federal rules restrict any use of the information to criminally investigate or prosecute any alcohol or drug abuse patient.[facility] HospitalIn the event this information is protected by the Federal Confidentiality of Alcohol and Drug Abuse Patient Records regulations: The Federal rules restrict any use of the information to criminally investigate or prosecute any alcohol or drug abuse patient.[facility] HospitalIn the event this information is protected by the Federal Confidentiality of Alcohol and Drug Abuse Patient Records regulations: The Federal rules restrict any use of the information to criminally investigate or prosecute any alcohol or drug abuse patient.[facility] HospitalIn the event this information is protected by the Federal Confidentiality of Alcohol and Drug Abuse Patient Records regulations: The Federal rules restrict any use of the information to criminally investigate or prosecute any alcohol or drug abuse patient.[facility] HospitalIn the event this information is protected by the Federal Confidentiality of Alcohol and Drug Abuse Patient Records regulations: The Federal rules restrict any use of the information to criminally investigate or prosecute any alcohol or drug abuse patient.[facility] HospitalIn the event this information is protected by the Federal Confidentiality of Alcohol and Drug Abuse Patient Records regulations: The Federal rules restrict any use of the information to criminally investigate or prosecute any alcohol or drug abuse patient.[facility] HospitalIn the event this information is protected by the Federal Confidentiality of Alcohol and Drug Abuse Patient Records regulations: The Federal rules restrict any use of the information to criminally investigate or prosecute any alcohol or drug abuse patient.[facility] HospitalIn the event this information is protected by the Federal Confidentiality of Alcohol and Drug Abuse Patient Records regulations: The Federal rules restrict any use of the information to criminally investigate or prosecute any alcohol or drug abuse patient.[facility] HospitalIn the event this information is protected by the Federal Confidentiality of Alcohol and Drug Abuse Patient Records regulations: The Federal rules restrict any use of the information to criminally investigate or prosecute any alcohol or drug abuse patient.[facility] HospitalIn the event this information is protected by the Federal Confidentiality of Alcohol and Drug Abuse Patient Records regulations: The Federal rules restrict any use of the information to criminally investigate or prosecute any alcohol or drug abuse patient.[facility] HospitalIn the event this information is protected by the Federal Confidentiality of Alcohol and Drug Abuse Patient Records regulations: The Federal rules restrict any use of the information to criminally investigate or prosecute any alcohol or drug abuse patient.[facility] HospitalIn the event this information is protected by the Federal Confidentiality of Alcohol and Drug Abuse Patient Records regulations: The Federal rules restrict any use of the information to criminally investigate or prosecute any alcohol or drug abuse patient.[facility] HospitalIn the event this information is protected by the Federal Confidentiality of Alcohol and Drug Abuse Patient Records regulations: The Federal rules restrict any use of the information to criminally investigate or prosecute any alcohol or drug abuse patient.[facility] HospitalIn the event this information is protected by the Federal Confidentiality of Alcohol and Drug Abuse Patient Records regulations: The Federal rules restrict any use of the information to criminally investigate or prosecute any alcohol or drug abuse patient.[facility] HospitalIn the event this information is protected by the Federal Confidentiality of Alcohol and Drug Abuse Patient Records regulations: The Federal rules restrict any use of the information to criminally investigate or prosecute any alcohol or drug abuse patient.[facility] HospitalIn the event this information is protected by the Federal Confidentiality of Alcohol and Drug Abuse Patient Records regulations: The Federal rules restrict any use of the information to criminally investigate or prosecute any alcohol or drug abuse patient.[facility] HospitalIn the event this information is protected by the Federal Confidentiality of Alcohol and Drug Abuse Patient Records regulations: The Federal rules restrict any use of the information to criminally investigate or prosecute any alcohol or drug abuse patient.[facility] HospitalIn the event this information is protected by the Federal Confidentiality of Alcohol and Drug Abuse Patient Records regulations: The Federal rules restrict any use of the information to criminally investigate or prosecute any alcohol or drug abuse patient.[facility] HospitalIn the event this information is protected by the Federal Confidentiality of Alcohol and Drug Abuse Patient Records regulations: The Federal rules restrict any use of the information to criminally investigate or prosecute any alcohol or drug abuse patient.[facility] HospitalIn the event this information is protected by the Federal Confidentiality of Alcohol and Drug Abuse Patient Records regulations: The Federal rules restrict any use of the information to criminally investigate or prosecute any alcohol or drug abuse patient.[facility] HospitalIn the event this information is protected by the Federal Confidentiality of Alcohol and Drug Abuse Patient Records regulations: The Federal rules restrict any use of the information to criminally investigate or prosecute any alcohol or drug abuse patient.[facility] HospitalIn the event this information is protected by the Federal Confidentiality of Alcohol and Drug Abuse Patient Records regulations: The Federal rules restrict any use of the information to criminally investigate or prosecute any alcohol or drug abuse patient.[facility] HospitalIn the event this information is protected by the Federal Confidentiality of Alcohol and Drug Abuse Patient Records regulations: The Federal rules restrict any use of the information to criminally investigate or prosecute any alcohol or drug abuse patient.[facility] HospitalIn the event this information is protected by the Federal Confidentiality of Alcohol and Drug Abuse Patient Records regulations: The Federal rules restrict any use of the information to criminally investigate or prosecute any alcohol or drug abuse patient.[facility] HospitalIn the event this information is protected by the Federal Confidentiality of Alcohol and Drug Abuse Patient Records regulations: The Federal rules restrict any use of the information to criminally investigate or prosecute any alcohol or drug abuse patient.[facility] HospitalIn the event this information is protected by the Federal Confidentiality of Alcohol and Drug Abuse Patient Records regulations: The Federal rules restrict any use of the information to criminally investigate or prosecute any alcohol or drug abuse patient.[facility] HospitalIn the event this information is protected by the Federal Confidentiality of Alcohol and Drug Abuse Patient Records regulations: The Federal rules restrict any use of the information to criminally investigate or prosecute any alcohol or drug abuse patient.[facility] HospitalIn the event this information is protected by the Federal Confidentiality of Alcohol and Drug Abuse Patient Records regulations: The Federal rules restrict any use of the information to criminally investigate or prosecute any alcohol or drug abuse patient.[facility] HospitalIn the event this information is protected by the Federal Confidentiality of Alcohol and Drug Abuse Patient Records regulations: The Federal rules restrict any use of the information to criminally investigate or prosecute any alcohol or drug abuse patient.[facility] HospitalIn the event this information is protected by the Federal Confidentiality of Alcohol and Drug Abuse Patient Records regulations: The Federal rules restrict any use of the information to criminally investigate or prosecute any alcohol or drug abuse patient.[facility] HospitalIn the event this information is protected by the Federal Confidentiality of Alcohol and Drug Abuse Patient Records regulations: The Federal rules restrict any use of the information to criminally investigate or prosecute any alcohol or drug abuse patient.[facility] HospitalIn the event this information is protected by the Federal Confidentiality of Alcohol and Drug Abuse Patient Records regulations: The Federal rules restrict any use of the information to criminally investigate or prosecute any alcohol or drug abuse patient.[facility] HospitalIn the event this information is protected by the Federal Confidentiality of Alcohol and Drug Abuse Patient Records regulations: The Federal rules restrict any use of the information to criminally investigate or prosecute any alcohol or drug abuse patient.[facility] HospitalIn the event this information is protected by the Federal Confidentiality of Alcohol and Drug Abuse Patient Records regulations: The Federal rules restrict any use of the information to criminally investigate or prosecute any alcohol or drug abuse patient.[facility] HospitalIn the event this information is protected by the Federal Confidentiality of Alcohol and Drug Abuse Patient Records regulations: The Federal rules restrict any use of the information to criminally investigate or prosecute any alcohol or drug abuse patient.[facility] HospitalIn the event this information is protected by the Federal Confidentiality of Alcohol and Drug Abuse Patient Records regulations: The Federal rules restrict any use of the information to criminally investigate or prosecute any alcohol or drug abuse patient.[facility] HospitalIn the event this information is protected by the Federal Confidentiality of Alcohol and Drug Abuse Patient Records regulations: The Federal rules restrict any use of the information to criminally investigate or prosecute any alcohol or drug abuse patient.[facility] HospitalIn the event this information is protected by the Federal Confidentiality of Alcohol and Drug Abuse Patient Records regulations: The Federal rules restrict any use of the information to criminally investigate or prosecute any alcohol or drug abuse patient.[facility] HospitalIn the event this information is protected by the Federal Confidentiality of Alcohol and Drug Abuse Patient Records regulations: The Federal rules restrict any use of the information to criminally investigate or prosecute any alcohol or drug abuse patient.[facility] HospitalIn the event this information is protected by the Federal Confidentiality of Alcohol and Drug Abuse Patient Records regulations: The Federal rules restrict any use of the information to criminally investigate or prosecute any alcohol or drug abuse patient.[facility] HospitalIn the event this information is protected by the Federal Confidentiality of Alcohol and Drug Abuse Patient Records regulations: The Federal rules restrict any use of the information to criminally investigate or prosecute any alcohol or drug abuse patient.[facility] HospitalIn the event this information is protected by the Federal Confidentiality of Alcohol and Drug Abuse Patient Records regulations: The Federal rules restrict any use of the information to criminally investigate or prosecute any alcohol or drug abuse patient.[facility] HospitalIn the event this information is protected by the Federal Confidentiality of Alcohol and Drug Abuse Patient Records regulations: The Federal rules restrict any use of the information to criminally investigate or prosecute any alcohol or drug abuse patient.[facility] HospitalIn the event this information is protected by the Federal Confidentiality of Alcohol and Drug Abuse Patient Records regulations: The Federal rules restrict any use of the information to criminally investigate or prosecute any alcohol or drug abuse patient.[facility] HospitalIn the event this information is protected by the Federal Confidentiality of Alcohol and Drug Abuse Patient Records regulations: The Federal rules restrict any use of the information to criminally investigate or prosecute any alcohol or drug abuse patient.[facility] HospitalIn the event this information is protected by the Federal Confidentiality of Alcohol and Drug Abuse Patient Records regulations: The Federal rules restrict any use of the information to criminally investigate or prosecute any alcohol or drug abuse patient.[facility] HospitalIn the event this information is protected by the Federal Confidentiality of Alcohol and Drug Abuse Patient Records regulations: The Federal rules restrict any use of the information to criminally investigate or prosecute any alcohol or drug abuse patient.[facility] HospitalIn the event this information is protected by the Federal Confidentiality of Alcohol and Drug Abuse Patient Records regulations: The Federal rules restrict any use of the information to criminally investigate or prosecute any alcohol or drug abuse patient.[facility] HospitalIn the event this information is protected by the Federal Confidentiality of Alcohol and Drug Abuse Patient Records regulations: The Federal rules restrict any use of the information to criminally investigate or prosecute any alcohol or drug abuse patient.[facility] HospitalIn the event this information is protected by the Federal Confidentiality of Alcohol and Drug Abuse Patient Records regulations: The Federal rules restrict any use of the information to criminally investigate or prosecute any alcohol or drug abuse patient.[facility] HospitalIn the event this information is protected by the Federal Confidentiality of Alcohol and Drug Abuse Patient Records regulations: The Federal rules restrict any use of the information to criminally investigate or prosecute any alcohol or drug abuse patient.[facility] HospitalIn the event this information is protected by the Federal Confidentiality of Alcohol and Drug Abuse Patient Records regulations: The Federal rules restrict any use of the information to criminally investigate or prosecute any alcohol or drug abuse patient.[facility] HospitalIn the event this information is protected by the Federal Confidentiality of Alcohol and Drug Abuse Patient Records regulations: The Federal rules restrict any use of the information to criminally investigate or prosecute any alcohol or drug abuse patient.[facility] HospitalIn the event this information is protected by the Federal Confidentiality of Alcohol and Drug Abuse Patient Records regulations: The Federal rules restrict any use of the information to criminally investigate or prosecute any alcohol or drug abuse patient.[facility] HospitalIn the event this information is protected by the Federal Confidentiality of Alcohol and Drug Abuse Patient Records regulations: The Federal rules restrict any use of the information to criminally investigate or prosecute any alcohol or drug abuse patient.[facility] HospitalIn the event this information is protected by the Federal Confidentiality of Alcohol and Drug Abuse Patient Records regulations: The Federal rules restrict any use of the information to criminally investigate or prosecute any alcohol or drug abuse patient.[facility] HospitalIn the event this information is protected by the Federal Confidentiality of Alcohol and Drug Abuse Patient Records regulations: The Federal rules restrict any use of the information to criminally investigate or prosecute any alcohol or drug abuse patient.[facility] HospitalIn the event this information is protected by the Federal Confidentiality of Alcohol and Drug Abuse Patient Records regulations: The Federal rules restrict any use of the information to criminally investigate or prosecute any alcohol or drug abuse patient.[facility] HospitalIn the event this information is protected by the Federal Confidentiality of Alcohol and Drug Abuse Patient Records regulations: The Federal rules restrict any use of the information to criminally investigate or prosecute any alcohol or drug abuse patient.[facility] HospitalIn the event this information is protected by the Federal Confidentiality of Alcohol and Drug Abuse Patient Records regulations: The Federal rules restrict any use of the information to criminally investigate or prosecute any alcohol or drug abuse patient.[facility] HospitalIn the event this information is protected by the Federal Confidentiality of Alcohol and Drug Abuse Patient Records regulations: The Federal rules restrict any use of the information to criminally investigate or prosecute any alcohol or drug abuse patient.[facility] HospitalIn the event this information is protected by the Federal Confidentiality of Alcohol and Drug Abuse Patient Records regulations: The Federal rules restrict any use of the information to criminally investigate or prosecute any alcohol or drug abuse patient.[facility] HospitalIn the event this information is protected by the Federal Confidentiality of Alcohol and Drug Abuse Patient Records regulations: The Federal rules restrict any use of the information to criminally investigate or prosecute any alcohol or drug abuse patient.[facility] HospitalIn the event this information is protected by the Federal Confidentiality of Alcohol and Drug Abuse Patient Records regulations: The Federal rules restrict any use of the information to criminally investigate or prosecute any alcohol or drug abuse patient.[facility] HospitalIn the event this information is protected by the Federal Confidentiality of Alcohol and Drug Abuse Patient Records regulations: The Federal rules restrict any use of the information to criminally investigate or prosecute any alcohol or drug abuse patient.[facility] HospitalIn the event this information is protected by the Federal Confidentiality of Alcohol and Drug Abuse Patient Records regulations: The Federal rules restrict any use of the information to criminally investigate or prosecute any alcohol or drug abuse patient.[facility] HospitalIn the event this information is protected by the Federal Confidentiality of Alcohol and Drug Abuse Patient Records regulations: The Federal rules restrict any use of the information to criminally investigate or prosecute any alcohol or drug abuse patient.[facility] HospitalIn the event this information is protected by the Federal Confidentiality of Alcohol and Drug Abuse Patient Records regulations: The Federal rules restrict any use of the information to criminally investigate or prosecute any alcohol or drug abuse patient.[facility] HospitalIn the event this information is protected by the Federal Confidentiality of Alcohol and Drug Abuse Patient Records regulations: The Federal rules restrict any use of the information to criminally investigate or prosecute any alcohol or drug abuse patient.[facility] HospitalIn the event this information is protected by the Federal Confidentiality of Alcohol and Drug Abuse Patient Records regulations: The Federal rules restrict any use of the information to criminally investigate or prosecute any alcohol or drug abuse patient.[facility] HospitalIn the event this information is protected by the Federal Confidentiality of Alcohol and Drug Abuse Patient Records regulations: The Federal rules restrict any use of the information to criminally investigate or prosecute any alcohol or drug abuse patient.[facility] HospitalIn the event this information is protected by the Federal Confidentiality of Alcohol and Drug Abuse Patient Records regulations: The Federal rules restrict any use of the information to criminally investigate or prosecute any alcohol or drug abuse patient.[facility] HospitalIn the event this information is protected by the Federal Confidentiality of Alcohol and Drug Abuse Patient Records regulations: The Federal rules restrict any use of the information to criminally investigate or prosecute any alcohol or drug abuse patient.[facility] HospitalIn the event this information is protected by the Federal Confidentiality of Alcohol and Drug Abuse Patient Records regulations: The Federal rules restrict any use of the information to criminally investigate or prosecute any alcohol or drug abuse patient.[facility] HospitalIn the event this information is protected by the Federal Confidentiality of Alcohol and Drug Abuse Patient Records regulations: The Federal rules restrict any use of the information to criminally investigate or prosecute any alcohol or drug abuse patient.[facility] HospitalIn the event this information is protected by the Federal Confidentiality of Alcohol and Drug Abuse Patient Records regulations: The Federal rules restrict any use of the information to criminally investigate or prosecute any alcohol or drug abuse patient.[facility] HospitalIn the event this information is protected by the Federal Confidentiality of Alcohol and Drug Abuse Patient Records regulations: The Federal rules restrict any use of the information to criminally investigate or prosecute any alcohol or drug abuse patient.[facility] HospitalIn the event this information is protected by the Federal Confidentiality of Alcohol and Drug Abuse Patient Records regulations: The Federal rules restrict any use of the information to criminally investigate or prosecute any alcohol or drug abuse patient.[facility] HospitalIn the event this information is protected by the Federal Confidentiality of Alcohol and Drug Abuse Patient Records regulations: The Federal rules restrict any use of the information to criminally investigate or prosecute any alcohol or drug abuse patient.[facility] HospitalIn the event this information is protected by the Federal Confidentiality of Alcohol and Drug Abuse Patient Records regulations: The Federal rules restrict any use of the information to criminally investigate or prosecute any alcohol or drug abuse patient.[facility] HospitalIn the event this information is protected by the Federal Confidentiality of Alcohol and Drug Abuse Patient Records regulations: The Federal rules restrict any use of the information to criminally investigate or prosecute any alcohol or drug abuse patient.[facility] HospitalIn the event this information is protected by the Federal Confidentiality of Alcohol and Drug Abuse Patient Records regulations: The Federal rules restrict any use of the information to criminally investigate or prosecute any alcohol or drug abuse patient.[facility] HospitalIn the event this information is protected by the Federal Confidentiality of Alcohol and Drug Abuse Patient Records regulations: The Federal rules restrict any use of the information to criminally investigate or prosecute any alcohol or drug abuse patient.[facility] HospitalIn the event this information is protected by the Federal Confidentiality of Alcohol and Drug Abuse Patient Records regulations: The Federal rules restrict any use of the information to criminally investigate or prosecute any alcohol or drug abuse patient.[facility] HospitalIn the event this information is protected by the Federal Confidentiality of Alcohol and Drug Abuse Patient Records regulations: The Federal rules restrict any use of the information to criminally investigate or prosecute any alcohol or drug abuse patient.[facility] HospitalIn the event this information is protected by the Federal Confidentiality of Alcohol and Drug Abuse Patient Records regulations: The Federal rules restrict any use of the information to criminally investigate or prosecute any alcohol or drug abuse patient.[facility] HospitalIn the event this information is protected by the Federal Confidentiality of Alcohol and Drug Abuse Patient Records regulations: The Federal rules restrict any use of the information to criminally investigate or prosecute any alcohol or drug abuse patient.[facility] HospitalIn the event this information is protected by the Federal Confidentiality of Alcohol and Drug Abuse Patient Records regulations: The Federal rules restrict any use of the information to criminally investigate or prosecute any alcohol or drug abuse patient.[facility] HospitalIn the event this information is protected by the Federal Confidentiality of Alcohol and Drug Abuse Patient Records regulations: The Federal rules restrict any use of the information to criminally investigate or prosecute any alcohol or drug abuse patient.[facility] HospitalIn the event this information is protected by the Federal Confidentiality of Alcohol and Drug Abuse Patient Records regulations: The Federal rules restrict any use of the information to criminally investigate or prosecute any alcohol or drug abuse patient.[facility] HospitalIn the event this information is protected by the Federal Confidentiality of Alcohol and Drug Abuse Patient Records regulations: The Federal rules restrict any use of the information to criminally investigate or prosecute any alcohol or drug abuse patient.[facility] HospitalIn the event this information is protected by the Federal Confidentiality of Alcohol and Drug Abuse Patient Records regulations: The Federal rules restrict any use of the information to criminally investigate or prosecute any alcohol or drug abuse patient.[facility] HospitalIn the event this information is protected by the Federal Confidentiality of Alcohol and Drug Abuse Patient Records regulations: The Federal rules restrict any use of the information to criminally investigate or prosecute any alcohol or drug abuse patient.[facility] HospitalIn the event this information is protected by the Federal Confidentiality of Alcohol and Drug Abuse Patient Records regulations: The Federal rules restrict any use of the information to criminally investigate or prosecute any alcohol or drug abuse patient.[facility] HospitalIn the event this information is protected by the Federal Confidentiality of Alcohol and Drug Abuse Patient Records regulations: The Federal rules restrict any use of the information to criminally investigate or prosecute any alcohol or drug abuse patient.[facility] HospitalIn the event this information is protected by the Federal Confidentiality of Alcohol and Drug Abuse Patient Records regulations: The Federal rules restrict any use of the information to criminally investigate or prosecute any alcohol or drug abuse patient.[facility] HospitalIn the event this information is protected by the Federal Confidentiality of Alcohol and Drug Abuse Patient Records regulations: The Federal rules restrict any use of the information to criminally investigate or prosecute any alcohol or drug abuse patient.[facility] HospitalIn the event this information is protected by the Federal Confidentiality of Alcohol and Drug Abuse Patient Records regulations: The Federal rules restrict any use of the information to criminally investigate or prosecute any alcohol or drug abuse patient.[facility] HospitalIn the event this information is protected by the Federal Confidentiality of Alcohol and Drug Abuse Patient Records regulations: The Federal rules restrict any use of the information to criminally investigate or prosecute any alcohol or drug abuse patient.[facility] HospitalIn the event this information is protected by the Federal Confidentiality of Alcohol and Drug Abuse Patient Records regulations: The Federal rules restrict any use of the information to criminally investigate or prosecute any alcohol or drug abuse patient.[facility] HospitalIn the event this information is protected by the Federal Confidentiality of Alcohol and Drug Abuse Patient Records regulations: The Federal rules restrict any use of the information to criminally investigate or prosecute any alcohol or drug abuse patient.[facility] HospitalIn the event this information is protected by the Federal Confidentiality of Alcohol and Drug Abuse Patient Records regulations: The Federal rules restrict any use of the information to criminally investigate or prosecute any alcohol or drug abuse patient.[facility] HospitalIn the event this information is protected by the Federal Confidentiality of Alcohol and Drug Abuse Patient Records regulations: The Federal rules restrict any use of the information to criminally investigate or prosecute any alcohol or drug abuse patient.[facility] HospitalIn the event this information is protected by the Federal Confidentiality of Alcohol and Drug Abuse Patient Records regulations: The Federal rules restrict any use of the information to criminally investigate or prosecute any alcohol or drug abuse patient.[facility] HospitalIn the event this information is protected by the Federal Confidentiality of Alcohol and Drug Abuse Patient Records regulations: The Federal rules restrict any use of the information to criminally investigate or prosecute any alcohol or drug abuse patient.[facility] HospitalIn the event this information is protected by the Federal Confidentiality of Alcohol and Drug Abuse Patient Records regulations: The Federal rules restrict any use of the information to criminally investigate or prosecute any alcohol or drug abuse patient.[facility] HospitalIn the event this information is protected by the Federal Confidentiality of Alcohol and Drug Abuse Patient Records regulations: The Federal rules restrict any use of the information to criminally investigate or prosecute any alcohol or drug abuse patient.[facility] HospitalIn the event this information is protected by the Federal Confidentiality of Alcohol and Drug Abuse Patient Records regulations: The Federal rules restrict any use of the information to criminally investigate or prosecute any alcohol or drug abuse patient.[facility] HospitalIn the event this information is protected by the Federal Confidentiality of Alcohol and Drug Abuse Patient Records regulations: The Federal rules restrict any use of the information to criminally investigate or prosecute any alcohol or drug abuse patient.[facility] HospitalIn the event this information is protected by the Federal Confidentiality of Alcohol and Drug Abuse Patient Records regulations: The Federal rules restrict any use of the information to criminally investigate or prosecute any alcohol or drug abuse patient.[facility] HospitalIn the event this information is protected by the Federal Confidentiality of Alcohol and Drug Abuse Patient Records regulations: The Federal rules restrict any use of the information to criminally investigate or prosecute any alcohol or drug abuse patient.[facility] HospitalIn the event this information is protected by the Federal Confidentiality of Alcohol and Drug Abuse Patient Records regulations: The Federal rules restrict any use of the information to criminally investigate or prosecute any alcohol or drug abuse patient.[facility] HospitalIn the event this information is protected by the Federal Confidentiality of Alcohol and Drug Abuse Patient Records regulations: The Federal rules restrict any use of the information to criminally investigate or prosecute any alcohol or drug abuse patient.[facility] HospitalIn the event this information is protected by the Federal Confidentiality of Alcohol and Drug Abuse Patient Records regulations: The Federal rules restrict any use of the information to criminally investigate or prosecute any alcohol or drug abuse patient.[facility] HospitalIn the event this information is protected by the Federal Confidentiality of Alcohol and Drug Abuse Patient Records regulations: The Federal rules restrict any use of the information to criminally investigate or prosecute any alcohol or drug abuse patient.[facility] Reason for Visit (unrecogniz ed section and content) Reason Comments Established Patient Follow Up Diabetic Foot Ulcer Specialty Diagnoses / Procedures Referred By Alex t Referred To Contact Podiatry / PODIATRY Diagnoses Diabetes mellitus due to underlying condition with foot ulcer 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 3 WEEK FOLLOW UP Procedures OFFICE/OUTPATIENT ESTABLISHED HIGH MDM 40 MIN OFFICE/OUTPATIENT ESTABLISHED MOD MDM 30 MIN OFFICE/OUTPATIENT ESTABLISHED LOW MDM 20 MIN OFFICE/OUTPATIENT ESTABLISHED SF MDM 10 MIN ROJELIO EST PODI DIAB [facility] [address] [place] [address] [facility] [address] [facility] [place] [address] Referral ID Status Reason Start Date Expiration Date V isits Requested Visits Authorized [id number] Authorized 06/16/2023 05/16/2024 99 99 Reason Comments Appointment Reason Comments Establish Care Reason Onset Date Comments Refill Request 01/30/2022 Reason Comments outreach Reason Comments Insurance Authorization Reason Onset Date Comments Refill Request 02/06/2022 Reason Comments Diabetes Type 2 diabetes Specialty Diagnoses / Procedures Referred By Alex t Referred To Contact Endocrinology Diagnoses Type 2 diabetes mellitus with other specified complication, with long-term current use of insulin (HCC) Procedures CONSULT TO ENDOCRINOLOGY OFFICE/OUTPATIENT NEW HIGH MDM 60-74 MINUTES Mike Candelario APRN.UNATTENDED GROUND SENSOR SPECIALIST [address] [place] [address] [facility] [address] [place] [address] Referral ID Status Reason Start Date Expiration Date V isits Requested Visits Authorized [id number] Closed PCP Requested Referral 02/04/2022 02/04/2023 1 1 Reason Comments Referral Request Reason Onset Date Comments Refill Request 03/30/2022 Reason Comments Urinary Retention Specialty Diagnoses / Procedures Referred By Alex t Referred To Contact Urology / UROLOGY Diagnoses Hematuria will do a day to 2 without being able to urinate. 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 account management assistant living cannot help with cath. Procedures UNLISTED EVALUATION AND MANAGEMENT SERVICE UNLISTED DIAGNOSTIC RADIOGRAPHIC PROCEDURE UNLISTED CHEMISTRY TEST NEW Rachel Cheung MD [address] [place] [address] Usama Bryan PA-C [address] [place] [address] Referral ID Status Reason Start Date Expiration Date V isits Requested Visits Authorized [id number] Authorized 04/13/2022 04/14/2023 99 99 Reason Comments Hospital F/U Reason Comments Results lab Reason Onset Date Comments Refill Request 05/12/2022 Reason Comments Established Patient F/U 3 Month Reason Onset Date Comments Refill Request 06/11/2022 Reason Comments Refill Request Reason Onset Date Comments Refill Request 08/04/2022 Reason Comments Patient Update Reason Onset Date Comments Refill Request 08/11/2022 Reason Onset Date Comments Refill Request 08/20/2022 Reason Onset Date Comments Refill Request 08/26/2022 Reason Onset Date Comments Refill Request 09/04/2022 Refill Request 09/07/2022 Reason Onset Date Comments Refill Request 09/07/2022 Reason Comments Patient Update Reason Comments Medication Question Reason Comments BH Consult Reason Comments Results Reason Comments Knee Pain left Neuropathy Reason Comments wheelchair prescription Reason Comments Wheelchair Prescription Reason Onset Date Comments Refill Request 11/19/2022 Reason Comments Patient Question Reason Comments F/U 3 Month Reason Onset Date Comments Refill Request 12/02/2022 Reason Onset Date Comments Refill Request 12/17/2022 Reason Comments New Patient Reason Comments ER F/U Reason Onset Date Comments Refill Request 03/30/2023 Reason Onset Date Comments Refill Request 04/15/2023 Reason Comments med question Reason Comments Medication Problem Levemir Flexpen Reason Onset Date Comments Refill Request 06/23/2023 Reason Comments Follow Up Ulcer Specialty Diagnoses / Procedures Referred By Contac t Referred To Contact Podiatry / PODIATRY Diagnoses 3 WEEK FOLLOW UP Procedures OFFICE/OUTPATIENT ESTABLISHED HIGH MDM 40 MIN ROJELIO EST PODI DIAB [facility] [address] [place] [address] [facility] [address] [place] [address] Reason Comments Orders Reason Comments Established Patient Follow Up Diabetic Foot Ulcer Pain Specialty Diagnoses / Procedures Referred By Contac t Referred To Contact Podiatry / PODIATRY Diagnoses toe concern f/u pt is diabetic Procedures ROJELIO EST P[facility]I [facility] [address] [place] [address] [facility] [address] [place] [address] Referral ID Status Reason Start Date Expiration Date Visits Re quested Visits Authorized [id number] Closed 08/19/2023 05/16/2024 1 1 Specialty Diagnoses / Procedures Referred By Contac t Referred To Contact MR IMAGING Diagnoses Other acute osteomyelitis of right foot (HCC) Procedures MRI FOOT/TOES WO/W IVCON RIGHT MRI LOWER EXTREM OTH/THN JT W/O & W/CONTR MATR [facility] [address] [place] [address] [facility] [place] [address] Referral ID Status Reason Start Date Expiration Date V isits Requested Visits Authorized [id number] Closed Auto-Generate d Referral 08/19/2023 05/16/2024 1 1 Reason Comments Established Patient Follow Up Diabetic Foot Care Numbness Diabetic Foot Ulcer Specialty Diagnoses / Procedures Referred By Contac t Referred To Contact Podiatry Diagnoses Closed displaced fracture of proximal phalanx of lesser toe of left foot, initial encounter Procedures CONSULT TO PODIATRY OFFICE/OUTPATIENT [facility] 60-74 MINUTES Mike Candelario, PLEATING MACHINE OPERATOR.UNATTENDED GROUND SENSOR SPECIALIST [address] [place] [address] Referral ID Status Reason Start Date Expiration Date V isits Requested Visits Authorized [id number] Closed PCP Requested Referral 09/07/2022 09/07/2023 1 1 Reason Onset Date Comments Refill Request 09/13/2023 Reason Comments Pre-Op Update Results Reason Comments Consult Reason Comments schedule surgery Reason Comments Patient Update senior living request ing orders Reason Comments Established Patient Follow Up Ulcer Pain Specialty Diagnoses / Procedures Referred By Contac t Referred To Contact Podiatry / PODIATRY Diagnoses Diabetes mellitus due to underlying condition with foot ulcer 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 3 WEEK FOLLOW UP Procedures OFFICE/OUTPATIENT ESTABLISHED HIGH MDM 40 MIN OFFICE/OUTPATIENT ESTABLISHED MOD MDM 30 MIN OFFICE/OUTPATIENT ESTABLISHED LOW MDM 20 MIN OFFICE/OUTPATIENT ESTABLISHED SF MDM 10 MIN ROJELIO EST PODI DIAB [facility] [address] [place] [address] [facility] [address] [place] [id number] Reason Comments Transportation Arrangement to [facility] Reason Comments Established Patient Follow Up Diabetic Foot Ulcer Pre-Op Visit Specialty Diagnoses / Procedures Referred By Alex madrid Referred To Contact Podiatry / PODIATRY Diagnoses Pre-op exam pre op Procedures OFFICE/OUTPATIENT ESTABLISHED SF MDM 10 MIN OFFICE/OUTPATIENT ESTABLISHED LOW MDM 20 MIN OFFICE/OUTPATIENT ESTABLISHED MOD MDM 30 MIN OFFICE/OUTPATIENT ESTABLISHED HIGH MDM 40 MIN ROJELIO EST [facility] [address] [place] [address] [place] [address] [place] [address] Referral ID Status Reason Start Date Expiration Date V isits Requested Visits Authorized [id number] Authorized 09/28/2023 05/16/2024 99 99 Specialty Diagnoses / Procedures Referred By Alex madrid Referred To Contact Podiatry / PODIATRY Diagnoses Pre-op exam pre op Procedures OFFICE/OUTPATIENT ESTABLISHED SF MDM 10 MIN OFFICE/OUTPATIENT ESTABLISHED LOW MDM 20 MIN OFFICE/OUTPATIENT ESTABLISHED MOD MDM 30 MIN OFFICE/OUTPATIENT ESTABLISHED HIGH MDM 40 MIN ROJELIO EST [facility] [address] [place] [address] [place] [address] Reason Comments Appointment Patient Update Reason Comments Medication Problem Hold rifampin Reason Comments type 2 diabetes Specialty Diagnoses / Procedures Referred By Contac t Referred To Contact Endocrinology / ENDOCRINOLOGY Diagnoses Follow-up exam follow up Procedures OFFICE/OUTPATIENT ESTABLISHED HIGH MDM 40 MIN OFFICE/OUTPATIENT ESTABLISHED MOD MDM 30 MIN OFFICE/OUTPATIENT ESTABLISHED LOW MDM 20 MIN OFFICE/OUTPATIENT ESTABLISHED SF MDM 10 MIN EST OZ PATIENT CamilaNancy toneyleona Lorenzo, PLEATING MACHINE OPERATOR.M1 ARMOR CREWMAN [address] [place] [address] Coral Martinez, PLEATING MACHINE OPERATOR.M1 ARMOR CREWMAN [address] [place] [address] Referral ID Status Reason Start Date Expiration Date V isits Requested Visits Authorized [id number] Authorized 10/12/2023 05/16/2024 99 99 Reason Comments Insurance Authorization Trulicity Reason Comments Medication Problem High blood sugar Reason Comments F/U 6 months Reason Onset Date Comments Refill Request 11/30/2023 Reason Comments Established Patient Follow Up Diabetic Foot Ulcer Specialty Diagnoses / Procedures Referred By [facility] Referred To Contact MR IMAGING Diagnoses Other acute osteomyelitis of right foot (HCC) Procedures MRI FOOT/TOES WO IVCON RIGHT MRI LOWER EXTREM OTH/THN JT W/O CONTR FLAKITOL [place] [address] [place] [address] Mr Imaging [id number] Referral ID Status Reason Start Date Expiration Date V isits Requested Visits Authorized [id number] Closed Auto-Generate d Referral 12/03/2023 01/01/2025 1 1 Reason Comments Follow Up Ulcer Reason Comments Requesting last office notes Reason Comments Patient Update [facility] Lunchroom Monitor calling with update Reason Comments Follow Up Ulcer Established Patient Pain Specialty Diagnoses / Procedures Referred By [facility] Referred To Contact Podiatry / PODIATRY Diagnoses Encounter for follow-up examination after completed treatment for conditions other than malignant neoplasm Right great toe ulcer follow up - Having an odor and getting worse Procedures OFFICE/OUTPATIENT ESTABLISHED HIGH MDM 40 MIN ROJELIO EST PODI [place] [address] [address] [place] [address] Referral ID Status Reason Start Date Expiration Date V isits Requested Visits Authorized [id number] Closed Patient Cleared - Admin/Chairm an/Director advise to proceed or did not respond 03/08/2024 05/16/2024 1 1 Reason Comments Home Care Confirmation call Reason Comments Home Care Reason Comments Home Care Md to follow Reason Comments F/U 6 Month Reason Comments Insurance Authorization Prior Authorization Trulicity Reason Comments [facility] Reason Comments CMN to DME Reason Onset Date Comments Refill Request 08/18/2024 Reason Comments 3 month f/up Reason Onset Date Comments Outpatient Colonoscopy 08/21/2024 Patient i s overdue for colorectal cancer screening (has never done). Patient will need consult with Jesus Etienne CNP prior to colorectal cancer screening. Reason Comments Dizziness dizzy when standing, head feels like it going to exploid Reason Onset Date Comments Results, Lab 10/17/2024 Reason Comments Pain (foot) Bilateral Specialty Diagnoses / Procedures Referred By Alex madrid Referred To Contact Pain Management Diagnoses Type 2 diabetes mellitus with hyperglycemia, with long-term current use of insulin (HCC) Pain in both feet Procedures CONSULT TO PAIN MGT OFFICE/OUTPATIENT [facility] MDM 60 MINUTES Mike Candelario, PLEATING MACHINE OPERATOR.UNATTENDED GROUND SENSOR SPECIALIST [address] [place] [address] Phone: tel: fax: Referral ID Status Reason Start Date Expiration Date V isits Requested Visits Authorized [id number] Closed PCP Requested Referral 10/13/2024 10/13/2025 1 1 Goals (unrecognized section and content) Goals may be documented in a n alternate sectionGoals may be documented in an alternate sectionGoals may be documented in an alternate sectionGoals may be documented in an alternate sectionGoals may be documented in an alternate sectionGoals may be documented in an alternate sectionGoals may be documented in an alternate sectionGoals may be documented in an alternate sectionGoals may be documented in an alternate sectionGoals may be documented in an alternate sectionGoals may be documented in an alternate sectionGoals may be documented in an alternate sectionGoals may be documented in an alternate sectionGoals may be documented in an alternate sectionGoals may be documented in an alternate sectionGoals may be documented in an alternate section Care Teams (unrecognized sec tion and content) Dispatcher Service Or Work Relationship Specialty Start Date End Date Rachel Chery MD [address] [place] [address] PCP - General Internal Medicine 01/30/22 Dispatcher Service Or Work Relationship Specialty Start Date End Date Rachel Chery MD [address] [place] [address] PCP - General Internal Medicine 01/30/22 Dispatcher Service Or Work Relationship Specialty Start Date End Date Rachel Chery MD [facility] [place] [address] PCP - General Internal Medicine 01/30/22 Dispatcher Service Or Work Relationship Specialty Start Date End Date Rachel Chery MD [facility] [place] [address] PCP - General Internal Medicine 01/30/22 Dispatcher Service Or Work Relationship Specialty Start Date End Date Rachel Chery MD [facility] [place] [address] PCP - General Internal Medicine 01/30/22 Dispatcher Service Or Work Relationship Specialty Start Date End Date Rachel Chery MD [facility] [place] [address] PCP - General Internal Medicine 01/30/22 Dispatcher Service Or Work Relationship Specialty Start Date End Date Rachel Chery MD [address] [place] [address] PCP - General Internal Medicine 01/30/22 Dispatcher Service Or Work Relationship Specialty Start Date End Date Rachel Chery MD [facility] [place] [address] PCP - General Internal Medicine 01/30/22 Dispatcher Service Or Work Relationship Specialty Start Date End Date Rachel Chery MD [address] [place] [address] PCP - General Internal Medicine 01/30/22 Dispatcher Service Or Work Relationship Specialty Start Date End Date Rachel Chery MD [address] [place] [address] PCP - General Internal Medicine 01/30/22 Dispatcher Service Or Work Relationship Specialty Start Date End Date Rachel Chery MD [address] [place] [address] PCP - General Internal Medicine 01/30/22 Dispatcher Service Or Work Relationship Specialty [place] [address] [place] [address] PCP - General Internal Medicine 01/30/22 Dispatcher Service Or Work Relationship Specialty Start Date End Date Rachel Chery MD [address] [place] [address] PCP - General Internal Medicine 01/30/22 Dispatcher Service Or Work Relationship Specialty Start Date End Date Rachel Chery MD [facility] [place] [address] PCP - General Internal Medicine 01/30/22 Dispatcher Service Or Work Relationship Specialty Start Date End Date Rachel Chery MD [address] [facility] [place] [address] PCP - General Internal Medicine 01/30/22 Dispatcher Service Or Work Relationship Specialty Start Date End Date Rachel Chery MD [address] [place] [address] [place] [address] PCP - General Internal Medicine 01/30/22 Dispatcher Service Or Work Relationship Specialty Start Date End Date Rachel Chery MD [address] [place] [address] [place] [address] PCP - General Internal Medicine 01/30/22 Dispatcher Service Or Work Relationship Specialty Start Date End Date Rachel Chery MD [address] [place] [address] PCP - General Internal Medicine 01/30/22 Dispatcher Service Or Work Relationship Specialty Start Date End Date Rachel Chery MD [address] [place] [address] PCP - General Internal Medicine 01/30/22 Dispatcher Service Or Work Relationship Specialty Start Date End Date Rachel Chery MD [address] [place] [address] PCP - General Internal Medicine 01/30/22 Dispatcher Service Or Work Relationship Specialty Start Date End Date Rachel Chery MD [address] [place] [address] PCP - General Internal Medicine 01/30/22 Dispatcher Service Or Work Relationship Specialty Start Date End Date Rachel Chery MD [facility] [place] [address] PCP - General Internal Medicine 01/30/22 Dispatcher Service Or Work Relationship Specialty Start Date End Date Rachel Chery MD [address] [place] [address] PCP - General Internal Medicine 01/30/22 Dispatcher Service Or Work Relationship Specialty Start Date End Date Rachel Chery MD [address] [place] [address] PCP - General Internal Medicine 01/30/22 Dispatcher Service Or Work Relationship Specialty Start Date End Date Rachel Chery MD [address] [place] [address], [place] [address] PCP - General Internal Medicine 01/30/22 Dispatcher Service Or Work Relationship Specialty Start Date End Date Rachel Chery MD [address] [place] [address], [place] [address] PCP - General Internal Medicine 01/30/22 Dispatcher Service Or Work Relationship Specialty Start Date End Date Rachel Chery MD [address] [facility], [place] [address] PCP - General Internal Medicine 01/30/22 Dispatcher Service Or Work Relationship Specialty Start Date End Date Rachel Chery MD [address] [place] [address] PCP - General Internal Medicine 01/30/22 Team Status: Active Member Role Status Dates Dr. Rachel Chery MD Primary Care Provider Active Team Status: Active Member Role Status Dates Dr. Lior Salcido MD Attending Provider, Other Pr ovider Active Dr. Rachel Chery MD Primary Care Provider Active Teresa Griffin NP, EXTENSION PROFESSOR-C Referring Provider Active Team Status: Inactive Member Role Status Dates Dr. Lior Salcido MD Attending Provider Active Dr. Rachel Chery MD Primary Care Provider Active Teresa Griffin EXTENSION PROFESSOR, EXTENSION PROFESSOR-C Referring Provider Active Dispatcher Service Or Work Relationship Specialty Start Date End Date Rachel Chery MD [address] [place] [address] PCP - General Internal Medicine 12/17/22 Dispatcher Service Or Work Relationship Specialty Start Date End Date Rachel Chery MD [address] [place] [address] PCP - General Internal Medicine 01/30/22 12/14/22 Hieu Watson MD [address] [place] [address] PCP - General Family Medicine 12/15/22 12/16/22 Rachel Chery MD [address] [place] [address] PCP - General Internal Medicine 12/17/22 Team Status: Inactive Member Role Status Dates Dr. Rachel Chery MD Primary Care Provider Active Hieu CASTRO Attending Provider Active Team Status: Active Member Role Status Dates Dr. Rachel Chery MD Primary Care Provider Active Hieu CASTRO Attending Provider Active Dispatcher Service Or Work Relationship Specialty Start Date End Date Rachel Chery MD [address] [place] [address] PCP - General Internal Medicine 02/25/23 Team Status: Inactive Member Role Status Dates Dr. Rachel Chery MD Primary Care Provider Active Dr. Ahsan Shin MD Emergency Provider Active Team Status: Inactive Member Role Status Dates Dr. Rachel Chery MD Primary Care Provider Active Dr. Kurtis Cross DO Emergency Provider Active Team Status: Inactive Member Role Status Dates Dr. Rachel Chery MD Primary Care Provider Active Dr. Ahsan Shin MD Attending Provider, Emergency Pro vider Active Dispatcher Service Or Work Relationship Specialty Start Date End Date Rachel Chery MD [address] [place] [address] PCP - General Internal Medicine 03/17/23 Dispatcher Service Or Work Relationship Specialty Start Date End Date Rachel Chery MD [address] [place] [address] PCP - General Internal Medicine 03/17/23 Dispatcher Service Or Work Relationship Specialty Start Date End Date Rachel Chery MD [address] [place] [address] PCP - General Internal Medicine 03/17/23 Dispatcher Service Or Work Relationship Specialty Start Date End Date Rachel Chery MD [address] [place] [address] PCP - General Internal Medicine 03/17/23 Dispatcher Service Or Work Relationship Specialty Start Date End Date Rachel Chery MD [address] [place] [address] PCP - General Internal Medicine 03/17/23 Dispatcher Service Or Work Relationship Specialty Start Date End Date Rachel Chery MD [address] [place] [address] PCP - General Internal Medicine 03/17/23 Dispatcher Service Or Work Relationship Specialty Start Date End Date Rachel Chery MD [address] [place] [address] PCP - General Internal Medicine 03/17/23 Dispatcher Service Or Work Relationship Specialty Start Date End Date Rachel Chery MD [address] [place] [address] PCP - General Internal Medicine 03/17/23 Dispatcher Service Or Work Relationship Specialty Start Date End Date Rachel Chery MD [address] [place] [address] PCP - General Internal Medicine 03/17/23 Dispatcher Service Or Work Relationship Specialty Start Date End Date Rachel Chery MD [address] [place] [address] PCP - General Internal Medicine 03/17/23 Dispatcher Service Or Work Relationship Specialty Start Date End Date Rachel Chery MD [address] [place] [address] PCP - General Internal Medicine 03/17/23 Dispatcher Service Or Work Relationship Specialty Start Date End Date Rachel Chery MD [address] [place] [address] PCP - General Internal Medicine 03/17/23 Dispatcher Service Or Work Relationship Specialty Start Date End Date Rachel Chery MD [address] [place] [address] PCP - General Internal Medicine 03/17/23 Dispatcher Service Or Work Relationship Specialty Start Date End Date Rachel Chery MD [address] [place] [address] PCP - General Internal Medicine 03/17/23 Dispatcher Service Or Work Relationship Specialty Start Date End Date Rachel Chery MD [address] [place] [address] PCP - General Internal Medicine 03/17/23 Dispatcher Service Or Work Relationship Specialty Start Date End Date Rachel Chery MD [address] [place] [address] PCP - General Internal Medicine 03/17/23 Dispatcher Service Or Work Relationship Specialty Start Date End Date Rachel Chery MD [address] [place] [address] PCP - General Internal Medicine 03/17/23 Dispatcher Service Or Work Relationship Specialty Start Date End Date Rachel Chery MD [address] [place] [address] PCP - General Internal Medicine 03/17/23 Dispatcher Service Or Work Relationship Specialty Start Date End Date Rachel Chery MD [address] [place] [address] PCP - General Internal Medicine 03/17/23 Dispatcher Service Or Work Relationship Specialty Start Date End Date Rachel Chery MD [address] [place] [address] PCP - General Internal Medicine 03/17/23 Dispatcher Service Or Work Relationship Specialty Start Date End Date Rachel Chery MD [address] [place] [address] PCP - General Internal Medicine 03/17/23 Dispatcher Service Or Work Relationship Specialty Start Date End Date Rachel Chery MD [address] [place] [address] PCP - General Internal Medicine 03/17/23 Dispatcher Service Or Work Relationship Specialty Start Date End Date Rachel Chery MD [address] [place] [address] PCP - General Internal Medicine 03/17/23 Dispatcher Service Or Work Relationship Specialty Start Date End Date Rachel Chery MD [address] [place] [address] PCP - General Internal Medicine 03/17/23 Dispatcher Service Or Work Relationship Specialty Start Date End Date Rachel Chery MD [address] [place] [address] PCP - General Internal Medicine 03/17/23 Dispatcher Service Or Work Relationship Specialty Start Date End Date Rachel Chery MD [address] [place] [address] PCP - General Internal Medicine 03/17/23 Dispatcher Service Or Work Relationship Specialty Start Date End Date Rachel Chery MD [address] [place] [address] PCP - General Internal Medicine 03/17/23 Dispatcher Service Or Work Relationship Specialty Start Date End Date Rachel Chery MD [address] [place] [address] PCP - General Internal Medicine 03/17/23 Dispatcher Service Or Work Relationship Specialty Start Date End Date Rachel Chery MD [address] [place] [address] PCP - General Internal Medicine 03/17/23 Dispatcher Service Or Work Relationship Specialty Start Date End Date Rachel Chery MD [address] [place] [address] PCP - General Internal Medicine 03/17/23 Dispatcher Service Or Work Relationship Specialty Start Date End Date Rachel Chery MD [address] [place] [address] PCP - General Internal Medicine 03/17/23 Dispatcher Service Or Work Relationship Specialty Start Date End Date Rachel Chery MD [address] [place] [address] PCP - General Internal Medicine 03/17/23 Dispatcher Service Or Work Relationship Specialty Start Date End Date Rachel Chery MD [address] [place] [address] PCP - General Internal Medicine 03/17/23 Dispatcher Service Or Work Relationship Specialty Start Date End Date Rachel Chery MD [address] [place] [address] PCP - General Internal Medicine 03/17/23 Dispatcher Service Or Work Relationship Specialty Start Date End Date Rachel Chery MD [address] [place] [address] PCP - General Internal Medicine 01/30/22 12/14/22 Dispatcher Service Or Work Relationship Specialty Start Date End Date Rachel Chery MD [address] [place] [address] PCP - General Internal Medicine 03/17/23 Dispatcher Service Or Work Relationship Specialty Start Date End Date Rachel Chery MD [address] [place] [address] PCP - General Internal Medicine 03/17/23 Dispatcher Service Or Work Relationship Specialty Start Date End Date Rachel Chery MD [address] [place] [address] PCP - General Internal Medicine 03/17/23 Dispatcher Service Or Work Relationship Specialty [place] [address] [place] [address] PCP - General Internal Medicine 03/17/23 Dispatcher Service Or Work Relationship Specialty Start Date End Date Rachel Chery MD [address] [place] [address] PCP - General Internal Medicine 03/17/23 Quinn Cristina MD [address] [place] [address] Referring Internal Medicine 03/26/24 Dispatcher Service Or Work Relationship Specialty Start Date End Date Rachel Chery MD [address] [place] [address] PCP - General Internal Medicine 03/17/23 Dispatcher Service Or Work Relationship Specialty Start Date End Date Rachel Chery MD [address] [place] [address] PCP - General Internal Medicine 03/17/23 Quinn Cristina MD [address] [place] [address] Referring Internal Medicine 03/26/24 Rachel Chery MD [address] [place] [address] Home Care Provider Internal Medicine 03/27/24 Silver Harp RN [address] [place] [address] [facility] 03/27/24 Dispatcher Service Or Work Relationship Specialty Start Date End Date Rachel Chery MD [address] [place] [address] PCP - General Internal Medicine 03/17/23 Quinn Cristina MD [address] [place] [address] Referring Internal Medicine 03/26/24 Rachel Chery MD [address] [place] [address] Home Care Provider Internal Medicine 03/27/24 Silver Harp RN [address] [place], [place] [id number] [facility] 03/27/24 Dispatcher Service Or Work Relationship Specialty Start Date End Date Rachel Chery MD [address] [place] [address] PCP - General Internal Medicine 03/17/23 Quinn Cristina MD [address] [place] [address] Referring Internal Medicine 03/26/24 Rachel Chery MD [address] [place] [address] Home Care Provider Internal Medicine 03/27/24 Silver Harp RN [address] [place] [address] [facility] 03/27/24 Dispatcher Service Or Work Relationship Specialty Start Date End Date Rachel Chery MD [facility] [place] [address] PCP - General Internal Medicine 03/17/23 Quinn Cristina MD [address] [place] [address] Referring Internal Medicine 03/26/24 Rachel Chery MD [address] [place] [address] Home Care Provider Internal Medicine 03/27/24 Silver Harp RN [address] [place] [address] [facility] 03/27/24 Dispatcher Service Or Work Relationship Specialty Start Date End Date Rachel Chery MD [address] [place] [address] PCP - General Internal Medicine 03/17/23 Quinn Cristina MD [address] [place] [address] Referring Internal Medicine 03/26/24 Rachel Chery MD [address] [place] [address] Home Care Provider Internal Medicine 03/27/24 Silver Harp, APRIL [address] [place] [address] [facility] 03/27/24 Dispatcher Service Or Work Relationship Specialty Start Date End Date Rachel Chery MD [facility] [place] [address] PCP - General Internal Medicine 03/17/23 Quinn Cristina MD [address] [place] [address] Referring Internal Medicine 03/26/24 Rachel Chery MD [address] [place] [address] Home Care Provider Internal Medicine 03/27/24 Silver Harp RN [address] [place] [address] [facility] 03/27/24 Dispatcher Service Or Work Relationship Specialty Start Date End Date Rachel Chery MD [address] [place] [address] PCP - General Internal Medicine 03/17/23 Quinn Cristina MD [address] [place] [address] Referring Internal Medicine 03/26/24 Rachel Chery MD [address] [place] [address] Home Care Provider Internal Medicine 03/27/24 Silver Harp, APRIL [address] [place], [place] [id number] [facility] 03/27/24 04/16/24 Mike Candelario APRN.UNATTENDED GROUND SENSOR SPECIALIST [address] [place] [address] Chair Caner Internal Medicine 04/24/24 Teresa Griffin PLEATING MACHINE OPERATOR.M1 ARMOR CREWMAN [address] [place], [place] [address] Chair Caner Internal Medicine 04/24/24 Dispatcher Service Or Work Relationship Specialty Start Date End Date Rachel Chery MD [facility] [place], [place] [address] PCP - General Internal Medicine 03/17/23 Quinn Cristina MD [address] [place] [id number] Referring Internal Medicine 03/26/24 Rachel Chery MD [address] [place] [address] Home Care Provider Internal Medicine 03/27/24 Mike Candelario APRN.UNATTENDED GROUND SENSOR SPECIALIST [address] [place] [address] Chair Caner Internal Medicine 04/24/24 Teresa Griffin APRN.M1 ARMOR CREWMAN [address] [place] [address] Chair Caner Internal Medicine 04/24/24 Dispatcher Service Or Work Relationship Specialty Start Date End Date Rachel Chery MD [address] [place], [place] [address] PCP - General Internal Medicine 03/17/23 Quinn Cristina MD [address] [place], [place] [id number] Referring Internal Medicine 03/26/24 Rachel Chery MD [address] [place] [address] Home Care Provider Internal Medicine 03/27/24 Mike Candelario, PLEATING MACHINE OPERATOR.UNATTENDED GROUND SENSOR SPECIALIST [address] [place] [address] Chair Caner Internal Medicine 04/24/24 Teresa Griffin PLEATING MACHINE OPERATOR.M1 ARMOR CREWMAN [address] [place] [address] Chair Caner Internal Medicine 04/24/24 Dispatcher Service Or Work Relationship Specialty Start Date End Date Rachel Chery MD [address] [place] [address] PCP - General Internal Medicine 03/17/23 Quinn Cristina MD [address] [place] [address] Referring Internal Medicine 03/26/24 Rachel Chery MD [address] [place] [address] Home Care Provider Internal Medicine 03/27/24 Mike Candelario, PLEATING MACHINE OPERATOR.UNATTENDED GROUND SENSOR SPECIALIST [address] [place] [address] Chair [facility]er Internal Medicine 04/24/24 Teresa Griffin APRN.M1 ARMOR CREWMAN [address] [place] [address] Chair [facility]er Internal Medicine 04/24/24 Dispatcher Service Or Work Relationship Specialty Start Date End Date Rachel Chery MD [address] [place] [address] PCP - General Internal Medicine 03/17/23 Quinn Cristina MD [address] [place] [address] [phone] Referring Internal Medicine 03/26/24 Rachel Chery MD [address] [place] [id number] Home Care Provider Internal Medicine 03/27/24 Mike Candelario APRN.UNATTENDED GROUND SENSOR SPECIALIST [facility] [place] [address] Chair Caner Internal Medicine 04/24/24 Teresa Griffin APRN.M1 ARMOR CREWMAN [address] [place] [phone] Chair Caner Internal Medicine 04/24/24 Dispatcher Service Or Work Relationship Specialty Start Date End Date Rachel Chery MD [address] [place] [address] PCP - General Internal Medicine 03/17/23 Quinn Cristina MD [address] [place] [address] [phone] Referring Internal Medicine 03/26/24 Rachel Chery MD [address] [place] [address] Home Care Provider Internal Medicine 03/27/24 Mike Candelario, AILIN.UNATTENDED GROUND SENSOR SPECIALIST [address] [place] [address] Chair Caner Internal Medicine 04/24/24 Teresa Griffin PLEATING MACHINE OPERATOR.M1 ARMOR CREWMAN [address] [place] [address] Chair Caner Internal Medicine 04/24/24 Dispatcher Service Or Work Relationship Specialty Start Date End Date Rachel Chery MD [address] [place] [address] PCP - General Internal Medicine 03/17/23 Quinn Cristina MD [address] [place] [address] [phone] Referring Internal Medicine 03/26/24 Rachel Chery MD [address] [place] [address] Home Care Provider Internal Medicine 03/27/24 Mike Candelario PLEATING MACHINE OPERATOR.UNATTENDED GROUND SENSOR SPECIALIST [address] [place] [address] Chair Caner Internal Medicine 04/24/24 Teresa Griffin APRN.M1 ARMOR CREWMAN [address] [place] [address] Chair Caner Internal Medicine 04/24/24 Dispatcher Service Or Work Relationship Specialty Start Date End Date Rachel Chery MD [address] [place], [place] 965211 PCP - General Internal Medicine 03/17/23 Quinn Cristina MD [address] [place] [address] Referring Internal Medicine 03/26/24 Rachel Chery MD [address] [place] [address] Home Care Provider Internal Medicine 03/27/24 Mike Candelario PLEATING MACHINE OPERATOR.UNATTENDED GROUND SENSOR SPECIALIST [address] [place] [address] Chair Caner Internal Medicine 04/24/24 Teresa Griffin PLEATING MACHINE OPERATOR.M1 ARMOR CREWMAN [address] [place] [address] Chair Caner Internal Medicine 04/24/24 Dispatcher Service Or Work Relationship Specialty Start Date End Date Rachel Chery MD [address] [place], [place] [id number] PCP - General Internal Medicine 03/17/23 Quinn Cristina MD [address] [place] [address] Referring Internal Medicine 03/26/24 Rachel Chery MD [address] [place], [place] 802161 Home Care Provider Internal Medicine 03/27/24 Mike Candelario, PLEATING MACHINE OPERATOR.UNATTENDED GROUND SENSOR SPECIALIST [address] [place], [place] [phone] Chair Caner Internal Medicine 04/24/24 Teresa Griffin, PLEATING MACHINE OPERATOR.M1 ARMOR CREWMAN [address] [place] [address] Chair Caner Internal Medicine 04/24/24 Dispatcher Service Or Work Relationship Specialty Start Date End Date Rachel Chery MD [address] [place] [address] PCP - General Internal Medicine 03/17/23 Quinn Cristina MD [address] [place] [address] [phone] Referring Internal Medicine 03/26/24 Rachel Chery MD [address] [place] [address] Home Care Provider Internal Medicine 03/27/24 Mike Candelario, PLEATING MACHINE OPERATOR.UNATTENDED GROUND SENSOR SPECIALIST [address] [place] [address] Chair Caner Internal Medicine 04/24/24 Teresa Griffin PLEATING MACHINE OPERATOR.M1 ARMOR CREWMAN [address] [place] [address] Chair Caner Internal Medicine 08/08/24 Dispatcher Service Or Work Relationship Specialty Start Date End Date Rachel Chery MD [address] [place] [address] PCP - General Internal Medicine 03/17/23 Quinn Cristina MD [address] [place] [address] 112[address] Referring Internal Medicine 03/26/24 Rachel Chery MD [address] [place] [address] Home Care Provider Internal Medicine 03/27/24 Mike Candelario APRN.UNATTENDED GROUND SENSOR SPECIALIST [address] [place] [address] Chair Caner Internal Medicine 04/24/24 Teresa Griffin PLEATING MACHINE OPERATOR.M1 ARMOR CREWMAN [address] [place] [address] Chair Caner Internal Medicine 08/08/24 Dispatcher Service Or Work Relationship Specialty Start Date End Date Rachel Chery MD [address] [place] [address] PCP - General Internal Medicine 03/17/23 Quinn Cristina MD [address] [place] [address] [phone] Referring Internal Medicine 03/26/24 Rachel Chery MD [address] [place] [address] Home Care Provider Internal Medicine 03/27/24 Mike Candelario, PLEATING MACHINE OPERATOR.UNATTENDED GROUND SENSOR SPECIALIST [address] [place] [address] Chair Caner Internal Medicine 04/24/24 Teresa Griffin PLEATING MACHINE OPERATOR.M1 ARMOR CREWMAN [address] [place] [address] Chair Caner Internal Medicine 08/08/24 Dispatcher Service Or Work Relationship Specialty Start Date End Date Rachel Chery MD [address] [place], [place] 747491 PCP - General Internal Medicine 03/17/23 Quinn Cristina MD [address] [place], [place] [phone] Referring Internal Medicine 03/26/24 Rachel Chery MD [address] [place] [address] Home Care Provider Internal Medicine 03/27/24 Teresa Griffin APRN.M1 ARMOR CREWMAN [address] [place] [address] Chair Caner Internal Medicine 08/08/24 Mike Candelario APRN.UNATTENDED GROUND SENSOR SPECIALIST [address] [place] [address] Chair Caner Internal Medicine 10/04/24 Dispatcher Service Or Work Relationship Specialty Start Date End Date Rachel Chery MD [address] [place] [address] PCP - General Internal Medicine 03/17/23 Quinn Cristina MD [address] [place] [address] Referring Internal Medicine 03/26/24 Rachel Chery MD [address] [place] [address] Home Care Provider Internal Medicine 03/27/24 Teresa Griffin APRN.M1 ARMOR CREWMAN [address] [place] [address] Chair Caner Internal Medicine 08/08/24 Mike Candelario APRN.UNATTENDED GROUND SENSOR SPECIALIST [address] [place] [address] Chair Caner Internal Medicine 10/04/24 Dispatcher Service Or Work Relationship Specialty Start Date End Date Rachel Chery MD [address] [place] [address] PCP - General Internal Medicine 03/17/23 Quinn Cristina MD [address] [place] [address] 10[address] Referring Internal Medicine 03/26/24 Rachel Chery MD [address] [place] [address] Home Care Provider Internal Medicine 03/27/24 Teresa Griffin APRN.M1 ARMOR CREWMAN [address] [place] [address] Chair Caner Internal Medicine 08/08/24 Mike Candelario APRN.UNATTENDED GROUND SENSOR SPECIALIST [address] [place] [address] Chair Caner Internal Medicine 10/04/24 Dispatcher Service Or Work Relationship Specialty Start Date End Date Rachel Chery MD [address] [place] [address] PCP - General Internal Medicine 03/17/23 Quinn Cristina MD [address] [place] [address] 201[address] Referring Internal Medicine 03/26/24 Rachel Chery MD [address] [place] [address] Home Care Provider Internal Medicine 03/27/24 Teresa Griffin APRN.M1 ARMOR CREWMAN [address] [place], [place] 777851 [facility] Internal Medicine 08/08/24 Mike Candelario APRN.UNATTENDED GROUND SENSOR SPECIALIST [address] [place], [place] 137301 [facility] Internal Medicine 10/04/24 FOR RECORDS PERTAINING TO PATIENTS WHO ARE OR HAVE BEEN ENROLLED IN A CHEMICAL DEPENDENCY/SUBSTANCEABUSE PROGRAM, SOME INFORMATION MAY BE OMITTED. This clinical summary was aggregated from multiple sources. Caution should be exercised in using it in the provision of clinical care. This summary normalizes information from multiple sources, and as a consequence, information in this document may materially change the coding, format and clinical context of patient data. In addition, data may be omitted in some cases. CLINICAL DECISIONS SHOULD BE BASED ON THE PRIMARY CLINICAL RECORDS. [facility] [employer] provides no warranty or guarantee of the accuracy or completeness of information in this document.
[2024-11-17 01:50] LABS: Hematocrit 23.9 % (40-54); Hemoglobin 8.4 g/dL (13.0-16.5); Immature Granulocytes Count 0.010 X10^3/uL (0.0-0.0); Mean Corp Hgb Conc 35.1 g/dL (32-36); Mean Corpuscular Volume 75.9 fL (80-94); Mean Platelet Vol. 10.3 fl (6.2-12.0); NRBC Flagged by Analyzer 0 % (0-5); Platelet Count 214 K/mm3 (150-450); RBC Distribution Width CV 17.1 % (11.6-14.6); RBC Distribution Width SD 46.5 fl (35.1-43.9); Red Blood Count 3.15 M/mm3 (4.6-6.2); White Blood Count 6.2 K/mm3 (4.4-11.0)
[2024-11-17] MEDS: 0.9% Normal Saline (1000mL) 1,000 ML 1000 ML IV (01:54)
--- NOTE | 2024-11-17 02:33 | EX.ED.DYSGE1 ---
HPI History of Present Illness Chief Complaint: Lower Extremity Injury Detail of Chief Complaint: Increased pain due to neuropathy and nausea and vomiting Informant: patient Onset/Context/Timing Onset: - (Pain due to neuropathy or 30+ years and complains of nausea and vomiting x 5.) Context: Sudden Onset Timing: Intermittent Quality: Burning pain predominantly feet and legs Location: Bilateral lower extremities, legs and feet Current Severity: Moderate Maximum Severity: Severe Worsened by: Touch or attempt to ambulate Relieved by: Nothing Associated Symptoms Associated Symptoms: Nausea and vomiting today Narrative Narrative: Patient is a 59-year-old male who has diabetic neuropathy for decades who presents with increased pain with nausea and vomiting x 5. He did receive Zofran prior to arrival and route by paramedics. He denies fever or chills. He denies headache, visual, ocular auditory symptoms. Denies trouble with hearing or ringing in his ears. He denies upper respiratory tract infectious symptoms. He denies chest pain or shortness of breath. He does endorse abdominal pain. He is vomited 4-5 times. He denies coffee-ground emesis or hematemesis. He presently denies abdominal pain. He denies urologic symptoms. He believes the pain in is causing him to have nausea and vomiting. Patient with diabetic neuropathy with increasing pain. He was started on Lyrica by pain management. He is only been on the Lyrica for short time.. Prior similar symptoms: Yes Recent Ill[facility] Medical History Decubitus ulcer of left buttock, stage 2 Diabetic ulcer of right heel Delusional disorder Type 2 diabetes mellitus Decubitus ulcer of left buttock, stage 3 Diabetic ulcer of left heel Uncontrolled type 2 diabetes mellitus with hyperosmolar nonketotic hyperglycemia RUQ abdominal pain Chronic anemia Rheumatoid arthritis Bipolar disorder Anxiety and depression Tobacco use Morbid obesity HTN (hypertension) Hypercholesterolemia Neuropathy Diabetes Home Medications ?Medication ?Instructions ?Recorded ?Last Taken ?Type aspirin 81 mg chewable tablet 81 mg PO DAILY heart 11/27/20 01/16/21 History atorvastatin 80 mg tablet 80 mg PO QHS cholesterol 11/27/20 01/14/21 History buspirone 5 mg tablet 5 mg PO TID anxiety 11/27/20 01/16/21 History cholecalciferol (vitamin D3) 50 50 mcg PO DAILY vitamin 11/27/20 01/16/21 History mcg (2,000 unit) tablet (Vitamin D3) duloxetine 60 mg capsule,delayed 60 mg PO QHS depression 11/27/20 Unknown History release sprinkle ezetimibe 10 mg tablet 10 mg PO DAILY cholesterol 11/27/20 01/16/21 History ferrous sulfate 325 mg (65 mg 325 mg PO DAILY supplement 11/27/20 01/16/21 History iron) tablet insulin lispro 100 unit/mL See Protocol subcut TID diabetes 11/27/20 01/16/21 History subcutaneous cartridge mecobalamin (vitamin B12) 1,000 1,000 mcg PO DAILY vitamin 11/27/20 01/16/21 History mcg chewable tablet (B12 Active) metoprolol tartrate 25 mg tablet 25 mg PO BID htn 11/27/20 01/16/21 History omega 5-zgg-pji-fish oil 1,000 mg 1 cap PO BID supplement 11/27/20 01/16/21 History (120 mg-180 mg) capsule (Fish Oil) pregabalin 200 mg capsule 200 mg PO TID nerve pill 11/27/20 01/16/21 History sertraline 50 mg tablet 75 mg PO DAILY depression 11/27/20 01/15/21 History tamsulosin 0.4 mg capsule 0.4 mg PO QHS urine 11/27/20 01/14/21 History pantoprazole 40 mg tablet,delayed 40 mg PO BID #60 tabs 01/15/21 01/16/21 Rx release (Protonix) amlodipine 10 mg tablet 10 mg PO DAILY BP 01/16/21 01/16/21 History bupropion HCl 150 mg 24 hr tablet, 150 mg PO BID 01/16/21 01/16/21 History extended release metformin 500 mg tablet 500 mg PO BID DM 01/16/21 01/16/21 History sucralfate 1 gram tablet 1 g PO ACHS STOMACH 01/16/21 01/16/21 History insulin degludec 100 unit/mL (3 40 unit (0.4 mL) subcut QHS 01/23/21 Unknown Rx mL) subcutaneous pen (Tresiba diabetes #0 mL FlexTouch U-100 insulin) lactulose 20 gram/30 mL oral 20 g (30 mL) PO DAILY 30 days #900 01/23/21 Unknown Rx solution mL quetiapine 25 mg tablet 25 mg PO BID #60 tabs 01/23/21 Unknown Rx amitriptyline 50 mg tablet 50 mg PO QHS 10/23/21 Unknown History dupilumab 200 mg/1.14 mL 300 mg subcut QWEEK 10/23/21 Unknown History subcutaneous pen injector (Dupixent) leflunomide 10 mg tablet (Arava) 10 mg PO DAILY 10/23/21 Unknown History lisinopril 10 mg tablet 10 mg PO DAILY 10/23/21 Unknown History amoxicillin 875 mg-potassium 1 tab PO BID 14 days #28 tabs 12/18/21 Unknown Rx clavulanate 125 mg tablet meclizine 25 mg tablet 25 mg PO DAILY PRN dizziness #20 04/10/22 Unknown Rx tabs amitriptyline 75 mg tablet 75 mg PO QHS cholesterol 03/18/23 Unknown History amoxicillin 875 mg-potassium 1 tab PO BID #20 tabs 03/18/23 Unknown Rx clavulanate 125 mg tablet ascorbic acid (vitamin C) 500 mg 500 mg PO DAILY 03/18/23 Unknown History chewable tablet (Acerola C) bupropion HCl 75 mg tablet 150 mg PO BID 03/18/23 Unknown History dicyclomine 10 mg capsule 10 mg PO Q12H PRN STOMAC CRAMPS 03/18/23 Unknown History fluticasone propionate 50 1 spray intranasal DAILY PRN 03/18/23 Unknown History mcg/actuation nasal CONGESTION spray,suspension insulin aspart U-100 See Rx Instructions subcut .COMPLEX 03/18/23 Unknown History insulin aspart U-100 100 unit/mL subcut ACHS 03/18/23 Unknown History (3 mL) subcutaneous pen (Novolog FlexPen U-100 Insulin aspart) melatonin 10 mg capsule 10 mg PO QHS 03/18/23 Unknown History metformin 1,000 mg tablet 1,000 mg PO BID 03/18/23 Unknown History multivit,stress formula-zinc 1 tab PO DAILY 03/18/23 Unknown History tablet (Stress Formula with Zinc tablet) multivitamin,tx-minerals (Super 1 tab PO DAILY 03/18/23 Unknown History Thera Ankur M tablet) ondansetron 4 mg disintegrating 4 mg PO Q8H PRN PRN Nausea #14 tabs 03/18/23 Unknown Rx tablet ondansetron HCl 4 mg tablet 4 mg PO Q8H 03/18/23 Unknown History pregabalin 225 mg capsule 225 mg PO TID 03/18/23 Unknown History sertraline 100 mg tablet 100 mg PO QHS 03/18/23 Unknown History sertraline 25 mg tablet 25 mg PO QHS 03/18/23 Unknown History Allergy/AdvReac Type Severity Reaction Status Date / Time No Known Allergies Allergy Verified 11/17/24 01:09 Family History Mother Diabetes Father Diabetes Hypertension Social History housing: assisted living facility Smoking Status: Heavy Smoker (>10/day) alcohol intake: never substance use type: does not use ROS ROS ED Constitutional Constitutional ED: Denies chills, fever(s), subjective, sweats or weight loss Eyes Eyes: Denies blurry vision, change in vision or diplopia ENT ENT ED: Denies ear pain, rhinorrhea or sore throat Cardiovascular Cardiovascular: Denies chest pain, orthopnea, palpitations, paroxysmal nocturnal dyspnea or racing heartbeat Respiratory/Chest Respiratory/Chest: Denies cough, dyspnea, dyspnea on exertion, orthopnea or paroxysmal nocturnal dyspnea Gastrointestinal Gastrointestinal: Reports nausea and vomiting; Denies abdominal pain, constipation, diarrhea or melena Genitourinary Genitourinary ED: Denies dysuria, hematuria or urinary frequency Musculoskeletal Musculoskeletal: Denies arthralgias, back pain or myalgias Integumentary Denies Abrasions or rash Neurologic Neurologic: Denies paresthesias or weakness Endocrine Endocrinology: Denies polydipsia, polyphagia or polyuria Hematologic/Lymphatic Hematologic/Lymphatic: Reports systems reviewed and no addt'l complaints, except as documented EXAM Physical Exam Const Vital Signs: 11/17/24 01:09 11/17/24 01:13 11/17/24 02:12 Temperature 98.2 F 98.2 F Temperature Source Oral Oral Pulse Rate 84 87 Respiratory Rate 18 18 Blood Pressure 113/65 113/65 Blood Pressure Mean 81 81 Pulse Ox 100 100 77 Oxygen Delivery Method Room Air Room Air Room Air Oxygen Flow Rate (L/min) 11/17/24 02:12 11/17/24 02:13 11/17/24 03:00 Temperature 98.2 F 98.2 F Temperature Source Oral Oral Pulse Rate 87 83 Respiratory Rate 18 16 Blood Pressure 116/63 128/76 H Blood Pressure Mean 80 93 Pulse Ox 95 95 100 Oxygen Delivery Method Nasal Cannula Nasal Cannula Room Air Oxygen Flow Rate (L/min) 2 2 Positive well nourished and well developed Constitutional Narrative: Vital signs are unremarkable. He occasionally grimaces. General Appearance ED: well developed; Negative for cyanotic, diaphoretic, NAD or pallor HEENT Reports moist mucous membranes HEENT Narrative: Patient with very poor dentition all of his teeth are eroded down to the gumline. He has evidence of gingivitis and periodontal disease acute on chronic. There is no trismus. Posterior pharynx is normal. Eyes PERRL and EOMs intact bilaterally General Eye ED: Yes pale conjunctiva; Negative for scleral icterus Neck no lymphadenopathy, supple and no JVD Chest Wall inspection of chest normal and palpation of chest normal Resp normal respiratory effort and clear to auscultation bilaterally Cardio regular rate, regular rhythm, S1 normal heart sound, S2 normal heart sound and no murmurs GI normal to inspection, nondistended, normoactive bowel sounds, non-tender, non-distended and no masses; Negative for hepatosplenomegaly GI Narrative: Abdomen is slightly tympanitic to percussion. Palpation: soft Back/Spine no CVA tenderness Extremity Extremity Narrative: Hypersensitivity legs and feet. Distal pulses are palpable 2+. There is no evidence of trauma to the legs or feet. General Extremety ED: Yes edema General Extremity: edema Neuro oriented x3, CN's II-XII intact bilaterally and no sensory deficits noted Sensorium / Orientation: alert Motor Exam: strength 5/5 throughout Psych Mood & Affect: depressed Skin no rashes or lesions noted, no wounds and skin turgor normal General Skin Exam: Negative for jaundice or pallor MDM MDM MDM Narrative Medical decision making narrative: Suspect his pain is due to diabetic neuropathy. The pain may be causing the nausea and vomiting. Since he is diabetic electrolyte panel was obtained assess CO2 anion gap, renal function and electrolytes. CBC to assess H&H since conjunctive is pale and may be due to anemia. Patient received Dilaudid for his neuropathic pain. Lab Data Attestation: I reviewed the patient's lab results. Lab results narrative: CBC reveals microcytic anemia. Prior CBC was March 2023. H&H at that time was 12.4 and 36.5. He had microcytic indices as well. If his BUN to creatinine ratio is elevated will perform rectal exam to evaluate for acute blood loss. Otherwise this is probably chronic or due to microscopic GI blood loss over the past year or 2. More importantly, he has no symptomatic anemia. Labs: Laboratory Results - last 24 hr 11/17/24 01:45 WBC 6.2 RBC 3.15 L Hgb 8.4 L Hct 23.9 L MCV 75.9 L MCH 26.7 L MCHC 35.1 RDW Std Deviation 46.5 H RDW Coeff of Nathalie 17.1 H Plt Count 214 MPV 10.3 Immature Gran % (Auto) 0.200 Neut % (Auto) 57.4 Lymph % (Auto) 31.7 [place] % (Auto) 7.9 Eos % (Auto) 2.2 Baso % (Auto) 0.6 Absolute Neuts (auto) 3.6 Absolute Lymphs (auto) 1.98 Nucleated RBC % 0 Sodium 139 Potassium 4.9 Chloride 108 Carbon Dioxide 19.8 L Anion Gap 11 BUN 18 Creatinine 1.20 Estim Creat Clear Calc 78.45 Est GFR (MDRD) Non-Af 70 BUN/Creatinine Ratio 15.1 Glucose 115 H Calcium 8.6 Since patient's BUN to creatinine ratio is normal anemia is due to chronic blood loss. Will have him take ferrous sulfate twice a day. Treatment and Re-Evaluation :: I was informed by nursing staff at 0328 the patient passes p.o. challenge. Therefore, will discharge to home Discharge Plan Triage Chief Complaint: Lower Extremity Injury ED Provider: Stone Pablo Dx/Rx/DC Orders Clinical Impression: Nausea & vomiting, Tobacco use, Diabetic neuropathy, painful, Microcytic anemia Instructions: ED Anemia, Iron-Deficiency (Adult), Diabetic Neuropathy Prescriptions: No Action buspirone 5 mg Tablet 5 mg PO TID atorvastatin 80 mg Tablet 80 mg PO QHS tamsulosin 0.4 mg Capsule 0.4 mg PO QHS ferrous sulfate 325 mg (65 mg iron) Tablet 325 mg PO DAILY aspirin 81 mg Tablet,Chewable 81 mg PO DAILY sertraline 50 mg Tablet 75 mg PO DAILY insulin lispro 100 unit/mL Cartridge See Protocol subcut TID Protocol: 6. Sliding Scale Insulin Custom Dose/Route: Number of Units Condition: 0-150 Dose/Route: 0 Condition: 151-200 Dose/Route: 2 Condition: 201-250 Dose/Route: 4 Condition: 251-300 Dose/Route: 6 Condition: 301-350 Dose/Route: 8 Condition: 351-400 Dose/Route: 10 Protocol Text: Custom Sliding Scale ezetimibe 10 mg Tablet 10 mg PO DAILY metoprolol tartrate 25 mg Tablet 25 mg PO BID pregabalin 200 mg Capsule 200 mg PO TID cholecalciferol (vitamin D3) [Vitamin D3] 50 mcg (2,000 unit) Tablet 50 mcg PO DAILY omega 0-jba-rtw-fish oil [Fish Oil] 1,000 mg (120 mg-180 mg) Capsule 1 cap PO BID duloxetine 60 mg Capsule, Delayed Rel Sprinkle 60 mg PO QHS mecobalamin (vitamin B12) [B12 Active] 1,000 mcg Tablet,Chewable 1,000 mcg PO DAILY pantoprazole [Protonix] 40 mg tablet,delayed release (DR/EC) 40 mg PO BID Qty: 60 0RF metformin 500 mg Tablet 500 mg PO BID bupropion HCl 150 mg Tablet Extended Release 24 Hr 150 mg PO BID sucralfate 1 gram tablet 1 g PO ACHS amlodipine 10 mg tablet 10 mg PO DAILY quetiapine 25 mg Tablet 25 mg PO BID Qty: 60 0RF lactulose 20 gram/30 mL Solution 20 g PO DAILY 30 Days Qty: 900 0RF insulin degludec [Tresiba FlexTouch U-100] 100 unit/mL (3 mL) insulin pen 40 unit SUBCUT QHS Qty: 0 0RF leflunomide [Arava] 10 mg Tablet 10 mg PO DAILY lisinopril 10 mg Tablet 10 mg PO DAILY Dupixent Pen 200 mg/1.14 mL Pen Injector 300 mg SUBCUT QWEEK amitriptyline 50 mg Tablet 50 mg PO QHS amoxicillin-pot clavulanate 875-125 mg tablet 1 tab PO BID 14 Days Qty: 28 0RF meclizine 25 mg tablet 25 mg PO DAILY PRN (Reason: dizziness) Qty: 20 0RF insulin aspart U-100 [Novolog FlexPen U-100 Insulin] 100 unit/mL (3 mL) insulin pen SUBCUT ACHS Rx Instructions: 8 units subcutaneously daily; every morning at breakfast 4 units subcutaneously daily after lunch and dinner insulin aspart U-100 [Novolog FlexPen U-100 Insulin] See Rx Instructions subcut .COMPLEX Rx Instructions: subcutaneously; sliding scale amitriptyline 75 mg tablet 75 mg PO QHS bupropion HCl 75 mg tablet 150 mg PO BID metformin 1,000 mg tablet 1,000 mg PO BID Rx Instructions: with meals pregabalin 225 mg capsule 225 mg PO TID ascorbic acid (vitamin C) [Acerola C] 500 mg tablet,chewable 500 mg PO DAILY Super Thera Ankur M Tablet 1 tab PO DAILY Stress Formula with Zinc Tablet 1 tab PO DAILY sertraline 100 mg tablet 100 mg PO QHS sertraline 25 mg tablet 25 mg PO QHS melatonin 10 mg capsule 10 mg PO QHS dicyclomine 10 mg capsule 10 mg PO Q12H PRN (Reason: STOMAC CRAMPS) fluticasone propionate 50 mcg/actuation spray,suspension 1 spray INTRANASAL DAILY PRN ondansetron 4 mg tablet,disintegrating 4 mg PO Q8H PRN PRN (Reason: Nausea) Qty: 14 0RF ondansetron HCl 4 mg tablet 4 mg PO Q8H amoxicillin-pot clavulanate 875-125 mg tablet 1 tab PO BID Qty: 20 0RF Primary Care Provider: Bel Ward Referrals: Bel Ward MD [Primary Care Provider] - Activity Restrictions/Additional Instructions: 1. You need to follow-up with your doctor and pain management regarding your painful diabetic neuropathy. 2. You need to increase your ferrous sulfate from 1 tablet a day to 1 tablet twice a day. Print Language: [place] Disposition Disposition: Home, Self Care
[2024-11-17 03:02] LABS: Anion Gap 11 (5-15); BUN 18 mg/dL (4-19); BUN/Creat Ratio 15.1 RATIO (10-20); Calcium,Total 8.6 mg/dL (7.6-11.0); Carbon Dioxide 19.8 mmol/L (21.0-32.0); Chloride 108 mmol/L (98-108); Estimated Creatinine Clearance 78.45 ml/min (50-250); Glucose 115 mg/dL (70-99); Potassium 4.9 mmol/L (3.3-5.1)
--- NOTE | 2024-11-17 12:05 | PCA ---
THIS COSMETICS AND [employer]ILETR[employer] SALESPERSON CALLED PHYSICIANS AT 1200 TO GET AN UPDATE ON THE RIDE, PHYSICIANS DELAYED TRANSPORT FOR THE THIRD TIME SINCE 0700. PUTTING ETA NOW FOR TRANSPORT ARRIVAL AT 1300
== END 2024-11-17 13:39 | disposition home or self-care (01) ==
PROVIDERS: Emergency Provider Emergency Medicine; PCP Internal Medicine; Visit Provider Emergency Medicine
DX: R11.2 Nausea with vomiting, unspecified (principal); E11.40 Type 2 diabetes mellitus with diabetic neuropathy, unspecified; E78.00 Pure hypercholesterolemia, unspecified; D50.9 Iron deficiency anemia, unspecified; R10.9 Unspecified abdominal pain; I10 Essential (primary) hypertension; F17.290 Nicotine dependence, other tobacco product, uncomplicated
CPT/HCPCS: 80048; 85025; 96361; 96374; 99284; A4216